=== PATIENT | female | born 1950 | race Caucasian/White ===

== ENCOUNTER 2024-07-17 09:46 | Day surgery (SDC) | payer MEDICARE, OTHER, SELFPAY ==
--- NOTE | 2024-07-15 15:57 | PAT.ANESEVAL ---
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 When Was Last Pacemaker Check QUESTION #4 FULL TEXT: You/Your Family Experience fever (hyperthermia) with Anesthesia Last Oral Intake Last Oral intake: Last Oral Intake NPO since Meds taken in AM with sips of water? Meds patient instructed to take am of surgery PONV PONV - plant etiologist: PONV - plant etiologist Female Yes 07/15/24 13:26 HX of Motion Sickness No 07/15/24 13:26 HX of N/V After Surgery No 07/15/24 13:26 Non-Smoker Yes 07/15/24 13:26 Duration of Surgery greater No 07/15/24 13:26 than 60 minutes Number of Risk Factors 2 07/15/24 13:26 PONV Score Moderate Risk 07/15/24 13:26 Height & Weight Height & Weight: Anesthesia: Height & Weight Height 5 ft 07/11/24 09:21 Respiratory Assessment Respiratory Assessment - plant etiologist: Respiratory Tract Infection Hx - plant etiologist Hx Respiratory Tract Infection No 07/15/24 13:26 STOP Sleep Apnea STOP Sleep Apnea - plant etiologist: STOP Sleep Apnea - plant etiologist Hx Hypertension Yes: CONTROLLED ON MED 07/15/24 13:26 Hx Sleep Apnea No 07/15/24 13:26 CPAP BIPAP Do you snore loudly (louder No 07/15/24 13:26 than talking or can be heard Do you often feel tired/ No 07/15/24 13:26 fatigued/ sleepy during daytime? Has anyone observed you stop No 07/15/24 13:26 breathing during sleep? STOP Results Negative 07/15/24 13:26 QUESTION #5 FULL TEXT : Do you snore loudly (louder than talking or can be heard through closed doors)? 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 Specify any problems Hx of Preganancy in last 3 No 07/15/24 13:26 Months Nurse Filling Out Transfusion VCHRISTIN 07/15/24 13:26 & Questions: Date: 07/15/24 07/15/24 13:26 Time: 13:27 07/15/24 13:26 Patient unable to answer at this time (ie. confused, unrespo /Reproduction History /Reproductive History - plant etiologist: /Reproductive Hx- plant etiologist Hx Now Gestational Age (in weeks): EDC: Hx Hx Para Hx Section SAB PFSH Medical History (Updated 07/15/24 @ 15:48 by Migdalia Katz) Blood disorder Wears hearing aid Wears glasses Anxiety Arthritis Easy bruising Excessive bleeding Back pain Dietary restriction Gastric reflux Non-smoker Shortness of breath on exertion Asthma History of CHF (congestive heart failure) History of edema History of echocardiogram Hypertension Cardiology follow-up encounter History of pacemaker History of atrial fibrillation Abnormal ultrasound of breast Lump of right breast Abnormal mammogram Bilateral cataracts Home Medications ?Medication ?Instructions ?Recorded ?Last Taken ?Type acetaminophen 325 mg tablet 325 mg PO ONCE PRN pain 07/11/24 Unknown History (Tylenol) cetirizine 10 mg tablet (Zyrtec) 10 mg PO QDAY PRN allergy symptoms 07/11/24 Unknown History diltiazem HCl 240 mg 240 mg PO BID 07/11/24 Unknown History capsule,extended release 24 hr (Cardizem CD) esomeprazole magnesium 20 mg 20 mg PO QDAY 07/11/24 Unknown History capsule,delayed release (Nexium) fluticasone fur. 100 mcg-umeclid 1 inh inhalation Q24H 07/11/24 Unknown History 62.5 mcg-vilant 25 mcg inhalat.powder (Trelegy Ellipta) furosemide 20 mg tablet (Lasix) 20 mg PO QPM 07/11/24 Unknown History furosemide 40 mg tablet (Lasix) 40 mg PO QAM 07/11/24 Unknown History lactobacillus combination no.4 3 3,000 mmu cells PO QDAY 07/11/24 Unknown History billion cell capsule (Probiotic) levalbuterol tartrate 45 2 inh inhalation Q6H 07/11/24 Unknown History mcg/actuation aerosol inhaler (Xopenex HFA) lisinopril 10 mg tablet 10 mg PO QDAY 07/11/24 Unknown History tramadol 25 mg tablet 25 mg PO Q6H PRN pain 07/11/24 Unknown History warfarin 2 mg tablet 2.5 mg PO MOWEFR 07/11/24 07/11/24 History ipratropium 0.5 mg-albuterol 3 mg 3 ml inhalation PRN 07/15/24 Unknown History (2.5 mg base)/3 mL nebulization soln magnesium gluconate 27.5 mg 27.5 mg PO DAILY 07/15/24 Unknown History magnesium (500 mg) tablet pravastatin 40 mg tablet 40 mg PO QHS 07/15/24 Unknown History warfarin 2.5 mg tablet 1.25 mg PO SUTUTHSA 07/15/24 07/11/24 History Allergy/AdvReac Type Severity Reaction Status Date / Time levofloxacin (From Levaquin) Allergy Hives Verified 07/15/24 13:05 Iodinated Contrast Media AdvReac Severe Other Verified 07/15/24 13:05 (contrast dye - iodinated) cephalexin (From Keflex) AdvReac Hives Verified 07/15/24 13:05 Sulfa (Sulfonamide AdvReac Hives Verified 07/15/24 13:05 Antibiotics) sulfamethoxazole (From AdvReac Hives Verified 07/15/24 13:05 Bactrim) trimethoprim (From Bactrim) AdvReac Hives Verified 07/15/24 13:05 Family History Mother Breast cancer, Onset Age: 57 Sister Breast cancer Surgical History (Updated 07/15/24 @ 15:48 by Migdalia Katz) History of carotid endarterectomy H/O right breast biopsy H/O: hysterectomy Hx of cholecystectomy History of open heart surgery Social History Smoking Status: Never smoker alcohol intake: never substance use type: does not use Audit: Pertinent Findings Pertinent Findings EKG Perinent findings: 11/14/2023 ventricular paced rhythm 57 bpm. Consult pertinent findings: Cardiology 06/11/[address] [facility]. Coronary artery disease. Preserved ejection fraction. Hypertension. Stable. Permanent atrial fibrillation. Presence of cardiac pacemaker. All stable. Recommendation Anesthesia Recommendation Anesthesia recommendation: OPTIMIZED for anesthesia
[2024-07-17] VITALS (8 sets, daily range): BP systolic 116–133; BP diastolic 48–80; PULSE 60–65; RESP 16–18; TEMP 36.2–37.3; O2SAT 92–100; BMI 37.8
[2024-07-17] MEDS: 0.9% Normal Saline (1000mL) 1,000 ML 15 ML IV (10:42)
--- NOTE | 2024-07-17 10:48 | PCM.PRE.AN2 ---
ASA Classification* ASA Classification ASA Classification: 3 Assessment & Plan Anesthesia* Anesthesia Assessment Anesthesia Assessment: Discussed sedation and/or anesthesia options, risks, benefits, and alternatives with patient/parents/legal guardian/POA. Questions invited. The patient/parents/legal guardian/POA seems to understand and agrees to proceed with anesthesia plan. Reviewed the physical assessment, medical history, allergy history and patient home medications list prior to surgery/procedure/anesthetic and documented any changes. Performed airway and anesthesia risk assessments. 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 When Was Last Pacemaker Check QUESTION #4 FULL TEXT: You/Your Family Experience fever (hyperthermia) with Anesthesia Last Oral Intake Last Oral intake: Last Oral Intake NPO since 08:00 07/17/24 10:26 Meds taken in AM with sips of Yes 07/17/24 10:26 water? 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 Female Yes 07/15/24 13:26 HX of Motion Sickness No 07/15/24 13:26 HX of N/V After Surgery No 07/15/24 13:26 Non-Smoker Yes 07/15/24 13:26 Duration of Surgery greater No 07/15/24 13:26 than 60 minutes Number of Risk Factors 2 07/15/24 13:26 PONV Score Moderate Risk 07/15/24 13:26 Height & Weight Height & Weight: Anesthesia: Height & Weight Height 5 ft 07/17/24 10:26 Weight: 88 kg 07/17/24 10:26 Body Mass Index (BMI) 37.8 07/17/24 10:26 Respiratory Assessment Respiratory Assessment - lollypop machine operator: Respiratory Tract Infection Hx - lollypop machine operator Hx Respiratory Tract Infection No 07/15/24 13:26 STOP Sleep Apnea STOP Sleep Apnea - lollypop machine operator: STOP Sleep Apnea - lollypop machine operator Hx Hypertension Yes: CONTROLLED ON MED 07/15/24 13:26 Hx Sleep Apnea No 07/15/24 13:26 CPAP BIPAP Do you snore loudly (louder No 07/15/24 13:26 than talking or can be heard Do you often feel tired/ No 07/15/24 13:26 fatigued/ sleepy during daytime? Has anyone observed you stop No 07/15/24 13:26 breathing during sleep? STOP Results Negative 07/15/24 13:26 QUESTION #5 FULL TEXT : Do you snore loudly (louder than talking or can be heard through closed doors)? 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 Specify any problems Hx of Preganancy in last 3 No 07/15/24 13:26 Months Nurse Filling Out Transfusion VCHRISTIN 07/15/24 13:26 & Questions: Date: 07/15/24 07/15/24 13:26 Time: 13:27 07/15/24 13:26 Patient unable to answer at this time (ie. 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: /Reproductive Hx- lollypop machine operator Hx Now Gestational Age (in weeks): EDC: Hx Hx Para Hx Section SAB Active Medications Active Medications: Current Medications Generic Name Dose Route Start Last Admin Trade Name Freq PRN Reason Stop Dose Admin Sodium Chloride 1,000 mls @ 15 mls/hr 07/17/24 10:10 07/17/24 10:42 IV 07/22/24 23:29 15 mls/hr .Q48H ADOLFO Administration Protocol [facility] Medical History Blood disorder Wears hearing aid Wears glasses Anxiety Arthritis Easy bruising Excessive bleeding Back pain Dietary restriction Gastric reflux Non-smoker Shortness of breath on exertion Asthma History of CHF (congestive heart failure) History of edema History of echocardiogram Hypertension Cardiology follow-up encounter History of pacemaker History of atrial fibrillation Abnormal ultrasound of breast Lump of right breast Abnormal mammogram Bilateral cataracts Home Medications ?Medication ?Instructions ?Recorded ?Last Taken ?Type acetaminophen 325 mg tablet 325 mg PO ONCE PRN pain 07/11/24 Unknown History (Tylenol) cetirizine 10 mg tablet (Zyrtec) 10 mg PO QDAY PRN allergy symptoms 07/11/24 Unknown History diltiazem HCl 240 mg 240 mg PO BID 07/11/24 07/17/24 08:00 History capsule,extended release 24 hr (Cardizem CD) esomeprazole magnesium 20 mg 20 mg PO QDAY 07/11/24 07/17/24 08:00 History capsule,delayed release (Nexium) fluticasone fur. 100 mcg-umeclid 1 inh inhalation Q24H 07/11/24 Unknown History 62.5 mcg-vilant 25 mcg inhalat.powder (Trelegy Ellipta) furosemide 20 mg tablet (Lasix) 20 mg PO QPM 07/11/24 Unknown History furosemide 40 mg tablet (Lasix) 40 mg PO QAM 07/11/24 Unknown History lactobacillus combination no.4 3 3,000 mmu cells PO QDAY 07/11/24 Unknown History billion cell capsule (Probiotic) levalbuterol tartrate 45 2 inh inhalation Q6H 07/11/24 Unknown History mcg/actuation aerosol inhaler (Xopenex HFA) lisinopril 10 mg tablet 10 mg PO QDAY 07/11/24 Unknown History tramadol 25 mg tablet 25 mg PO Q6H PRN pain 07/11/24 Unknown History warfarin 2 mg tablet 2.5 mg PO MOWEFR 07/11/24 07/11/24 History ipratropium 0.5 mg-albuterol 3 mg 3 ml inhalation PRN 07/15/24 Unknown History (2.5 mg base)/3 mL nebulization soln magnesium gluconate 27.5 mg 27.5 mg PO DAILY 07/15/24 07/16/24 History magnesium (500 mg) tablet pravastatin 40 mg tablet 40 mg PO QHS 07/15/24 Unknown History warfarin 2.5 mg tablet 1.25 mg PO SUTUTHSA 07/15/24 07/11/24 History Allergy/AdvReac Type Severity Reaction Status Date / Time levofloxacin (From Levaquin) Allergy Hives Verified 07/17/24 10:21 Iodinated Contrast Media AdvReac Severe Other Verified 07/17/24 10:21 (contrast dye - iodinated) cephalexin (From Keflex) AdvReac Hives Verified 07/17/24 10:21 Sulfa (Sulfonamide AdvReac Hives Verified 07/17/24 10:21 Antibiotics) sulfamethoxazole (From AdvReac Hives Verified 07/17/24 10:21 Bactrim) trimethoprim (From Bactrim) AdvReac Hives Verified 07/17/24 10:21 Family History Mother Breast cancer, Onset Age: 57 Sister Breast cancer Surgical History History of carotid endarterectomy H/O right breast biopsy H/O: hysterectomy Hx of cholecystectomy History of open heart surgery Social History Smoking Status: Never smoker alcohol intake: never substance use type: does not use Review of Systems (Anesthesia) ROS Narrative System reviewed and no additional complaints, except as documented.
--- NOTE | 2024-07-17 11:04 | PCM.HP.STD ---
HPI - General General Date of Admission: 07/17/24 Date of Service: 07/17/24 Chief Complaint: Right breast lump HPI Narrative NHI ZHANG, is a 74 F who presents for excisional biopsy/lumpectomy involving the right breast. She was recently seen in the office following ultrasound to workup a small palpable abnormality at the site of previous biopsy location. She presents today for excisional biopsy/lumpectomy [facility] Medical History Blood disorder Wears hearing aid Wears glasses Anxiety Arthritis Easy bruising Excessive bleeding Back pain Dietary restriction Gastric reflux Non-smoker Shortness of breath on exertion Asthma History of CHF (congestive heart failure) History of edema History of echocardiogram Hypertension Cardiology follow-up encounter History of pacemaker History of atrial fibrillation Abnormal ultrasound of breast Lump of right breast Abnormal mammogram Bilateral cataracts Home Medications ?Medication ?Instructions ?Recorded ?Last Taken ?Type acetaminophen 325 mg tablet 325 mg PO ONCE PRN pain 07/11/24 Unknown History (Tylenol) cetirizine 10 mg tablet (Zyrtec) 10 mg PO QDAY PRN allergy symptoms 07/11/24 Unknown History diltiazem HCl 240 mg 240 mg PO BID 07/11/24 07/17/24 08:00 History capsule,extended release 24 hr (Cardizem CD) esomeprazole magnesium 20 mg 20 mg PO QDAY 07/11/24 07/17/24 08:00 History capsule,delayed release (Nexium) fluticasone fur. 100 mcg-umeclid 1 inh inhalation Q24H 07/11/24 Unknown History 62.5 mcg-vilant 25 mcg inhalat.powder (Trelegy Ellipta) furosemide 20 mg tablet (Lasix) 20 mg PO QPM 07/11/24 Unknown History furosemide 40 mg tablet (Lasix) 40 mg PO QAM 07/11/24 Unknown History lactobacillus combination no.4 3 3,000 mmu cells PO QDAY 07/11/24 Unknown History billion cell capsule (Probiotic) levalbuterol tartrate 45 2 inh inhalation Q6H 07/11/24 Unknown History mcg/actuation aerosol inhaler (Xopenex HFA) lisinopril 10 mg tablet 10 mg PO QDAY 07/11/24 Unknown History tramadol 25 mg tablet 25 mg PO Q6H PRN pain 07/11/24 Unknown History warfarin 2 mg tablet 2.5 mg PO MOWEFR 07/11/24 07/11/24 History ipratropium 0.5 mg-albuterol 3 mg 3 ml inhalation PRN 07/15/24 Unknown History (2.5 mg base)/3 mL nebulization soln magnesium gluconate 27.5 mg 27.5 mg PO DAILY 07/15/24 07/16/24 History magnesium (500 mg) tablet pravastatin 40 mg tablet 40 mg PO QHS 07/15/24 Unknown History warfarin 2.5 mg tablet 1.25 mg PO SUTUTHSA 07/15/24 07/11/24 History Allergy/AdvReac Type Severity Reaction Status Date / Time levofloxacin (From Levaquin) Allergy Hives Verified 07/17/24 10:21 Iodinated Contrast Media AdvReac Severe Other Verified 07/17/24 10:21 (contrast dye - iodinated) cephalexin (From Keflex) AdvReac Hives Verified 07/17/24 10:21 Sulfa (Sulfonamide AdvReac Hives Verified 07/17/24 10:21 Antibiotics) sulfamethoxazole (From AdvReac Hives Verified 07/17/24 10:21 Bactrim) trimethoprim (From Bactrim) AdvReac Hives Verified 07/17/24 10:21 Family History Mother Breast cancer, Onset Age: 57 Sister Breast cancer Surgical History History of carotid endarterectomy H/O right breast biopsy H/O: hysterectomy Hx of cholecystectomy History of open heart surgery Social History Smoking Status: Never smoker alcohol intake: never substance use type: does not use Vital Signs Vital Signs Vital Signs: 07/17/24 10:26 07/17/24 10:26 07/17/24 10:49 Temperature 97.8 F 97.8 F Temperature Source Temporal Pulse Rate 61 61 Respiratory Rate 16 16 Respiratory Pattern Normal Blood Pressure 126/48 H 126/48 H Blood Pressure Mean 74 Blood Pressure Source Monitor Blood Pressure Position Sitting Blood Pressure Location Left Arm Pulse Ox 100 100 Oxygen Delivery Method Room Air Weight Weight: 194 lb 0.108 oz Body Mass Index (BMI) 37.8 Physical Exam Const alert, oriented x3 and no apparent distress Assessment & Plan Assessment/Plan (1) Abnormal ultrasound of breast: PLAN: Plan Right breast excisional biopsy/lumpectomy to be performed today. We reviewed the details of the planned procedure and she wishes to proceed. Surgery will begin shortly Charges/Coding Visit Charges Inpatient E&M: 40361 Init Hosp L1
--- NOTE | 2024-07-17 11:30 | BREAST_PTH ---
PATIENT: NHI ZHANG LOC: [facility] [place] U#:[id number] AGE/SX: 74/F ROOM: RE07/17/[address]: Dr. Nawaf Mccarthy MD : 1950 BED: DIS: 07/17/2024 SPEC #: [id number] RECD: 07/18/24 11:13 STATUS: NIKI RECherry #: [id number] HOPE: 07/17/24 11:[address]: Nawaf Mccarthy DEPT: SURGICAL PATHOLOGY RECD BY: Jefferson Root ENTERED: 07/18/24 11:13 SP TYPE: BREAST OTHR DR: Dr. Ronit Doan DO Tissues: Right breast, NOS Procedures: Immunohistochemical Stains Surgery Specimen Level IV IHC Stain ADDITIONAL HEADER OPERATION: Breast lumpectomy PRE-OP DIAGNOSIS: Abnormal ultrasound of breast TISSUE SUBMITTED: A- Right breast lumpectomy *long stitch- lateral, short stitch- superior* Ischemic Time: 1 minute Fixation Time: 48 hours MICROSCOPIC DIAGNOSIS RIGHT BREAST, LUMPECTOMY: * Negative for malignancy. * Multifocal fat necrosis - see note. * Focal columnar cell change/hyperplasia. * Unremarkable skin. Note: IHC for Pancytokeratin and CD68 support the diagnosis of fat necrosis. MICROSCOPIC DESCRIPTION Slides are reviewed. These tests were developed and their performance characteristics determined by [facility]. They may not have been cleared or approved by the U.S. Food and Drug Administration. The FDA has determined that such clearance or approval is not necessary. The above immunohistochemical/dualISH markers are ordered and reviewed by the Pathologist. GROSS DESCRIPTION Received in fixative is one container labeled with the patient's name and designated right breast lumpectomy, long stitch-lateral, short stitch-superior. Cold ischemia time is not indicated on the requisition or on the container. The specimen consists of a roughly round-shaped lump of yellow-white fibrofatty breast tissue with skin on one surface. It has 2 sets of sutures on it designated as above. The skin is present on the anterior surface. The specimen measures 5.3 x 5 x 2.5 cm, and the skin ellipse measures 3.5 x 1 cm. The skin is unremarkable. The specimen is inked as follows: Superior is blue, inferior is green, posterior is black, anterior is kaushal, medial is yellow, and lateral is orange. The specimen is sectioned into 13 slices, from lateral to medial at approximately 3 mm intervals. The lateral-most slice is #1 and the medial-most slice is #13. Slices #2 has a punctate firm area at the posterior ink, along with cysts. Slice #3 has a punctate firm area in the center of it. Punctate firm areas are also found on slices 6,7 and 8, at the posterior ink. No distinct masses are identified. Multiple mortician supplies sales representative sections are submitted in 10 cassettes. 10 07/19/24 Cassette summary: A1- lateral perpendicular margin A2,A3- slice #2 A4,A5- slice #3 A6- inferior half of slice #6 A7- inferior half of slice #7 A8- superior half of slice #8 A9- medial perpendicular margin A10- superior half of slice #4 CPT: 25138, 44036, 19628
[2024-07-17] MEDS: Clindamycin 900 MG/50 ML BAG 75 MG IV (11:33)
[2024-07-17] MEDS: Bupiv/Epi 0.25% 30 ML Vial (12:12)
--- NOTE | 2024-07-17 12:15 | DCINST_ITS ---
Discharge Instructions Diet Discharge Diet: Light diet - advance as tolerated Activity Discharge Activity: Return to Normal Activity and May Shower May shower in (days): 1 Ice area for (Minutes): 30 Lifting Restrictions: none Dressing / Incision Call your doctor if your incision/area has: Continuous Slow Oozing, Sudden Increased Bleeding, Increased Pain/ Swelling, Increased Redness, Foul Smelling Discharge and Swelling at the incision site Call your doctor if you observe: Fever of 101 or Higher Cleanse incision/area with: Soap & Water Additional Dressing/Incision Instructions:: remove dressing prior to showering; wear TOMMY wrap or sports bra for support / compression Follow Up Care Please Follow Up With: Nawaf Mccarthy MD When: 1-2 weeks -- call for appointment Test Results: Test results from this visit will be discussed in further detail at your follow- up appointment, if applicable. Discharge Plan Admission Primary Reason for Your Visit: right breast mass Attending Provider: Nawaf Mccarthy Primary Care Provider: Ronit Doan Instructions Print Language: [place] Discharge Orders/Prescriptions Prescriptions: New hydrocodone-acetaminophen 5-325 mg tablet 1 tab PO Q8H PRN (Reason: pain) 4 Days Qty: 10 0RF Continued Trelegy Ellipta 100-62.5-25 mcg blister with device 1 inh inhalation Q24H lisinopril 10 mg tablet 10 mg PO QDAY levalbuterol tartrate [Xopenex HFA] 45 mcg/actuation HFA aerosol inhaler 2 inh inhalation Q6H furosemide [Lasix] 40 mg tablet 40 mg PO QAM furosemide [Lasix] 20 mg tablet 20 mg PO QPM diltiazem HCl [Cardizem CD] 240 mg capsule,extended release 24hr 240 mg PO BID tramadol 25 mg tablet 25 mg PO Q6H PRN (Reason: pain) warfarin 2 mg tablet 2.5 mg PO MOWEFR esomeprazole magnesium [Nexium] 20 mg capsule,delayed release(DR/EC) 20 mg PO QDAY Probiotic 3 billion cell capsule 3,000 mmu cells PO QDAY Rx Instructions: administer with a meal cetirizine [Zyrtec] 10 mg tablet 10 mg PO QDAY PRN (Reason: allergy symptoms) acetaminophen [Tylenol] 325 mg tablet 325 mg PO ONCE PRN (Reason: pain) ipratropium-albuterol 0.5 mg-3 mg(2.5 mg base)/3 mL solution for nebulization 3 ml inhalation PRN pravastatin 40 mg tablet 40 mg PO QHS warfarin 2.5 mg tablet 1.25 mg PO SUTUTHSA magnesium gluconate 27.5 mg magne- sium (500 mg) tablet 27.5 mg PO DAILY Referrals / Follow Up: Rnoit Doan DO [Primary Care Provider] - Disposition Disposition (needs filled in before D/C Order can be placed): Home, Self Care
--- NOTE | 2024-07-17 12:31 | PCM.OPRPT ---
Multi Select Codes Integumentary Integumentary CPT Codes: 43030 Bx breast [place] [address] Partial mastectomy Operative Report (Standard) Operative Information Date of Procedure: 07/17/24 Pre-Operative Diagnosis: Right breast mass/abnormal ultrasound Post-Operative Diagnosis: Same Surgery/Procedure Performed: Right breast lumpectomy/excisional biopsy factory lay out engineer: Yes Commercial Agent: Karina Middleton Tasks completed by nurse first assist: Closing and Retracting Additional assistant signal maintainer?: No Type of Anesthesia: General and Local RN Documented Start/Stop Times: Operation Date: 07/17/24 11:30 Case Time Into Pre-Op 07/17/24 10:06 Out of Pre-Op 07/17/24 11:30 Anesthesia Start 07/17/24 11:33 Into Room 07/17/24 11:33 Procedure Start 07/17/24 11:50 Procedure Start Time: 11:50 Procedure Stop Time: 12:20 Select all DRAINS/GRAFTS/IMPLANTS that apply: None Special Medications: Clindamycin 900 mg IV. Estimated Blood Loss: 5 mL Specimen collected: Yes Description of specimen(s) removed: Right breast lumpectomy tissue Description of surgery: The patient is a 74-year-old female who was seen in the office recently with complaints of a right breast lump as well as an ultrasound that was read as abnormal. Biopsy was recommended. Patient was quick to state that she would require sedation/anesthesia should any type of biopsy need to be performed. She has had multiple previous excisional biopsies in the past all of which have been benign per her description. She had an ultrasound that showed a less than 1 cm abnormality that corresponded to the palpable lesion in question. There was another less than 1 cm abnormality seen on ultrasound just adjacent to the original palpable lesion. This was in the same area as a previous excisional biopsy. We discussed option of ultrasound-guided core biopsy in the office under Ativan however she stated that she need to be asleep for the procedure and so we recommended an excisional biopsy to be performed in the operating room. She agreed to proceed. Patient was brought to the operating room today following informed consent. Preoperative antibiotics were given and a timeout was performed. The site was marked preoperatively. Once in the operating room a general anesthesia was induced. Once adequately sedated the arms were comfortably outstretched on arm boards. Before prepping the skin, ultrasound was used to again reidentify the ultrasound abnormalities and again this corresponded to the palpable lesion in question. The site was marked with a skin marker. The right breast and chest were then prepped and draped in the usual sterile manner. Local anesthetic was infiltrated. An ellipse incision was made. Bovie electrocautery was then used dissect down through subcutaneous tissues. Once the tissue was free, the specimen was oriented such that a long marking stitch was used to indicate the lateral aspect of the specimen and a short stitch was used to denote the superior aspect of the specimen. This was sent to pathology for permanent section. Hemostasis was excellent. The wound was copiously irrigated. The wound was then closed in layers first using 3-0 Vicryl. Then 4-0 Vicryl was run in the skin. Skin glue was then applied. 4 x 4 fluffs and an Brandyn wrap were then applied for compression. She was awakened from anesthesia and taken to recovery in good condition. A OPTOMETRIST PRESIDENT/PRACTICE OWNER was utilized as a certified teacher assistant. Her role included skin retraction and assistance with skin closure. Surgical Findings: See operative description Complications Complications: No Admit VTE Documentation VTE Present on Admission: No VTE Mechan Device Prophylaxis: SCD's VTE Pharm Prophylaxis ordered?: No Reason prophylaxis not ordered: Treatment Not Indicated
--- NOTE | 2024-07-17 12:34 | PCM.POST.ANE ---
Anesthesia: Postop Eval I Current Vital Signs Temperature: 99.2 F Pulse Rate: 65 Blood Pressure: 124/50 Respiratory Rate: 16 Pulse Ox: 93 Oxygen Delivery Method: Nasal Cannula Oxygen Flow Rate (L/min): 2 Assessment Airway patent: Yes Spontaneous unlabored respirations: Yes Mental status: Awake and Calm nausea: No Vomiting: No Anesthesia Complication: No Fluid Hydration Crystalloid volume administer (ml): 700 Total IV fluid infused: 700 Progress Note Anesthesia document: Postop Eval 1 completed: Yes
--- NOTE | 2024-07-17 12:56 | POSTOPAN2_ITS ---
Anesthesia Postop Eval I Sum Postop Eval Completion status Anesthesia document: Postop Eval 1 completed: Yes Anesthesia Postop Eval I Summary Anesthesia Postop Eval I Summary: Anesthesia Postop Eval I: Assessment Summary Airway patent Yes 07/17/24 12:[email or web address] Spontaneous unlabored Yes 07/17/24 12:[email or web address] respirations Mental status Awake,Calm 07/17/24 12:[email or web address] nausea No 07/17/24 12:[email or web address] Vomiting No 07/17/24 12:[email or web address] Anesthesia Postop Eval I: Fluid Summary Crystalloid volume administer 700 07/17/24 12:[email or web address] (ml) Colloids volume administered ( ml) Blood Product volume administered (ml) Total IV fluid infused 700 07/17/24 12:[email or web address] Anesthesia Postop Eval I: Summary Notes Anesthesia Complication No 07/17/24 12:[email or web address] Anesthesia Complication Comment: Post-operative progress note Anesthesia: Postop Eval II Evaluation Mental status: Awake Pain Level: 0 nausea: No Vomiting: No
--- NOTE | 2024-07-17 12:56 | PCM.POSTANE2 ---
Anesthesia Postop Eval I Sum Postop Eval Completion status Anesthesia document: Postop Eval 1 completed: Yes Anesthesia Postop Eval I Summary Anesthesia Postop Eval I Summary: Anesthesia Postop Eval I: Assessment Summary Airway patent Yes 07/17/24 12:35 [email or web address] Spontaneous unlabored Yes 07/17/24 12:35 [email or web address] [email or web address] respirations Mental status Awake,Calm 07/17/24 12:35 [email or web address] [email or web address] nausea No 07/17/24 12:35 HOSE [email or web address] Vomiting No 07/17/24 12:35 [email or web address] [email or web address] Anesthesia Postop Eval I: Fluid Summary Crystalloid volume administer 700 07/17/24 12:35 HOSE [email or web address] (ml) Colloids volume administered ( ml) Blood Product volume administered (ml) Total IV fluid infused 700 07/17/24 12:35 HOSE [email or web address] Anesthesia Postop Eval I: Summary Notes Anesthesia Complication No 07/17/24 12:35 HOSE [email or web address] Anesthesia Complication Comment: Post-operative progress note Anesthesia: Postop Eval II Evaluation Mental status: Awake Pain Level: 0 nausea: No Vomiting: No
[2024-07-19 06:25] LABS: INR Fingerstick 1.2; Prothrombin Time Fingerstick 14.3 SEC (11.7-14.9)
== END 2024-07-17 14:09 | disposition home or self-care (01) ==
LOC: SDC 09:49 → AC 09:50
PROVIDERS: PCP Internal Medicine; Referring Provider Surgery; Visit Provider Surgery
PROC: (CPT 19301; principal; 2024-07-17 11:15)
DX: N64.1 Fat necrosis of breast (principal); I11.0 Hypertensive heart disease with heart failure; I50.9 Heart failure, unspecified; N62 Hypertrophy of breast; J45.909 Unspecified asthma, uncomplicated; K21.9 Gastro-esophageal reflux disease without esophagitis; Z79.51 Long term (current) use of inhaled steroids; Z79.84 Long term (current) use of oral hypoglycemic drugs; Z79.01 Long term (current) use of anticoagulants; Z79.899 Other long term (current) drug therapy; Z95.0 Presence of cardiac pacemaker
CPT/HCPCS: 19301; 00404; 36416; 85610; 88305; 88341; 88342; A4648; J2405

== ENCOUNTER 2025-03-13 06:37 | Inpatient (IN) | payer MEDICARE, OTHER, SELFPAY ==
[2025-03-13] VITALS (13 sets, daily range): BP systolic 120–156; BP diastolic 41–58; PULSE 60–92; RESP 14–23; TEMP 36.5–36.6; O2SAT 94–98; BMI 38.1; BMI 36.7
[2025-03-13 07:09] LABS: Hematocrit 39.2 % (37-47); Hemoglobin 12.7 g/dL (12.0-15.0); Immature Granulocytes Count 0.160 X10^3/uL (0.0-0.0); Mean Corp Hgb Conc 32.4 g/dL (32-36); Mean Corpuscular Volume 80.3 fL (81-99); Mean Platelet Vol. 8.8 fl (6.2-12.0); NRBC Flagged by Analyzer 0 % (0-5); POSITIVE DIFFERENTIAL YES; POSITIVE MORPHOLOGY YES; Platelet Count 370 K/mm3 (150-450); RBC Distribution Width CV 16.3 % (11.6-14.6); RBC Distribution Width SD 47.1 fl (35.1-43.9); Red Blood Count 4.88 M/mm3 (4.2-5.4); White Blood Count 18.9 K/mm3 (4.4-11.0)
--- NOTE | 2025-03-13 07:15 | EX.ED.DYSGE1 ---
HPI History of Present Illness Chief Complaint: Shortness of Breath Narrative Narrative: Patient is a 74-year-old female with past medical history of asthma, atrial fibrillation on warfarin, CHF, hypertension, pacemaker who presents to the emergency department chief complaint of shortness of breath and difficulty breathing. Patient notes that she went to urgent care on Monday and was diagnosed with bronchitis and started on prednisone and she states that she has been taking them as prescribed. States that she was up all night that she was having significant difficulty breathing therefore she came here to be further evaluated. Patient states that normally when she gets diagnosed with bronchitis she gets an antibiotic and states that she was told that this is viral and she did not need this and notes that now something else is going on and believes that she may need an antibiotic [facility] Medical History Blood disorder Wears hearing aid Wears glasses Anxiety Arthritis Easy bruising Excessive bleeding Back pain Dietary restriction Gastric reflux Non-smoker Shortness of breath on exertion Asthma History of CHF (congestive heart failure) History of edema History of echocardiogram Hypertension Cardiology follow-up encounter History of pacemaker History of atrial fibrillation Abnormal ultrasound of breast Lump of right breast Abnormal mammogram Bilateral cataracts Home Medications Medication Instructions Recorded Last Taken Type acetaminophen 325 mg tablet 325 mg PO ONCE PRN pain 07/11/24 Unknown History (Tylenol) cetirizine 10 mg tablet (Zyrtec) 10 mg PO QDAY PRN allergy symptoms 07/11/24 Unknown History diltiazem HCl 240 mg 240 mg PO BID 07/11/24 07/17/24 08:00 History capsule,extended release 24 hr (Cardizem CD) esomeprazole magnesium 20 mg 20 mg PO QDAY 07/11/24 07/17/24 08:00 History capsule,delayed release (Nexium) fluticasone fur. 100 mcg-umeclid 1 inh inhalation Q24H 07/11/24 Unknown History 62.5 mcg-vilant 25 mcg inhalat.powder (Trelegy Ellipta) furosemide 20 mg tablet (Lasix) 20 mg PO QPM 07/11/24 Unknown History furosemide 40 mg tablet (Lasix) 40 mg PO QAM 07/11/24 Unknown History lactobacillus combination no.4 3 3,000 mmu cells PO QDAY 07/11/24 Unknown History billion cell capsule (Probiotic) levalbuterol tartrate 45 2 inh inhalation Q6H 07/11/24 Unknown History mcg/actuation aerosol inhaler (Xopenex HFA) lisinopril 10 mg tablet 10 mg PO QDAY 07/11/24 Unknown History tramadol 25 mg tablet 25 mg PO Q6H PRN pain 07/11/24 Unknown History warfarin 2 mg tablet 2.5 mg PO MOWEFR mowefrsasu 07/11/24 07/11/24 History ipratropium 0.5 mg-albuterol 3 mg 3 ml inhalation PRN 07/15/24 Unknown History (2.5 mg base)/3 mL nebulization soln magnesium gluconate 27.5 mg 27.5 mg PO DAILY 07/15/24 07/16/24 History magnesium (500 mg) tablet pravastatin 40 mg tablet 40 mg PO QHS 07/15/24 Unknown History warfarin 2.5 mg tablet 1.25 mg PO TUTH 07/15/24 07/11/24 History metformin 500 mg tablet,extended 500 mg PO BID 07/24/24 Unknown History release 24 hr prednisone 20 mg tablet 40 mg PO DAILY 03/13/25 Unknown History Allergy/AdvReac Type Severity Reaction Status Date / Time cephalexin (From Keflex) Allergy Hives Verified 03/13/25 06:45 levofloxacin (From Levaquin) Allergy Hives Verified 03/13/25 06:45 Sulfa (Sulfonamide Allergy Hives Verified 03/13/25 06:45 Antibiotics) sulfamethoxazole (From Allergy Hives Verified 03/13/25 06:45 Bactrim) trimethoprim (From Bactrim) Allergy Hives Verified 03/13/25 06:45 Iodinated Contrast Media AdvReac Severe Other Verified 03/13/25 06:45 (contrast dye - iodinated) Family History Mother Breast cancer, Onset Age: 57 Sister Breast cancer Surgical History Status post right breast lumpectomy History of carotid endarterectomy H/O right breast biopsy H/O: hysterectomy Hx of cholecystectomy History of open heart surgery Social History Smoking Status: Never smoker alcohol intake: never substance use type: does not use ROS ROS ED ROS Narrative Constitutional: Denies any fevers, chills, headache Cardiovascular: Denies chest pain Respiratory: Mild shortness of breath as noted above denies any sputum production Abdomen: Denies nausea vomit diarrhea : Denies urinary symptoms Neurological: Denies any numbness, weakness, tingling Musculoskeletal: Denies back pain Skin: Denies any rashes or lesions EXAM Physical Exam Narrative Exam Narrative: General: Patient was lying in bed resting comfortably did not appear to be in acute distress Head: Atraumatic, normocephalic Eyes: PERRL bilaterally, EOMI bilaterally, no conjunctival injection noted Neck: Soft, supple, trachea midline Cardiovascular: Regular rate and rhythm Respiratory: Diffuse end expiratory wheezing noted bilaterally Abdomen: Soft, nondistended, nontender to palpation Extremities: No pedal edema on exam, +5/5 strength noted in the bilateral lower extremities Neurological: Patient following commands knew that she was at [facility] the year is 2024 Skin: Warm, dry, intact no rashes or lesions noted Const Vital Signs: 03/13/25 06:38 03/13/25 07:23 03/13/25 07:53 Temperature 97.7 F L Temperature Source Oral Pulse Rate 83 80 65 Respiratory Rate 16 19 H 23 H Respiratory Pattern Normal Blood Pressure 156/58 H 132/46 H Blood Pressure Mean 90 74 Pulse Ox 97 98 Oxygen Delivery Method Room Air Room Air 03/13/25 08:53 Temperature Temperature Source Pulse Rate 62 Respiratory Rate 20 H Respiratory Pattern Blood Pressure 120/41 L Blood Pressure Mean 67 Pulse Ox 96 Oxygen Delivery Method Room Air MDM MDM MDM Narrative Medical decision making narrative: Patient is a 74-year-old female who presented to the emergency department the chief complaint of cough, wheezing and shortness of breath. On the differential diagnose includes but not limited to upper respiratory infection secondary viral etiology, pneumonia, pneumothorax, CHF although she states that she weighed herself this morning and is at her baseline weight and is not having significant dyspnea on exertion. Patient given 3 DuoNebs and Solu-Medrol. Patient's CBC was significant for leukocytosis of 18,000, hemoglobin 12.7, plate count of 370. Patient INR was 2.3 in therapeutic range, sodium was 132, potassium 4.2, creatinine was noted be 1.02. Patient proBNP normal at 77. Patient EKG showed ventricular paced rhythm with PVCs noted with a rate of 64 bpm. Patient chest x-ray reviewed by myself and by radiology showed no acute cardiopulmonary processes. On reevaluation patient she is still having significant end expiratory wheezing therefore 2 more albuterol treatments will be ordered and she will be reevaluated. On reevaluation of the patient at 9:40 AM she has significant end expiratory wheezing noted bilaterally therefore at this point time do believe she warrants admission to the hospital for asthma exacerbation will discuss case with hospitalist. Patient will also be given IV antibiotics although I believe her white count is reactive secondary to the steroids that she has been on in the outpatient setting Did discuss case with hospitalist Dr. Pradhan who accept patient for admission. Patient notified is agreeable this plan all question concerns answered she was ordered Azactam at 9:50 AM Lab Data Labs: Laboratory Results - last 24 hr 03/13/25 06:55 WBC 18.9 H RBC 4.88 Hgb 12.7 Hct 39.2 MCV 80.3 L MCH 26.0 L MCHC 32.4 RDW Std Deviation 47.1 H RDW Coeff of Juliane 16.3 H Plt Count 370 MPV 8.8 Immature Gran % (Auto) 0.800 Neut % (Auto) 78.5 H Lymph % (Auto) 10.6 L [place] % (Auto) 8.4 Eos % (Auto) 1.4 Baso % (Auto) 0.3 Absolute Neuts (auto) 14.8 H Absolute Lymphs (auto) 2.01 Nucleated RBC % 0 Differential Comment COMMENT PT 25.8 H INR 2.3 APTT 29.9 Sodium 132 L Potassium 4.2 Chloride 95 L Carbon Dioxide 20.8 L Anion Gap 16 H BUN 18 Creatinine 1.02 Estim Creat Clear Calc 47.93 L Est GFR (MDRD) Non-Af 58 L BUN/Creatinine Ratio 17.3 Glucose 151 H Calcium 9.5 NT pro BNP II 787 Radiography Diagnostic Testing: Clinical Impression(s) from Imaging Studies Chest X-Ray 03/13/25 07:35 IMPRESSION: Moderate degenerative changes of the thoracic spine are noted. Right thoracic transvenous pacemaker with atrial and ventricular leads in place. Prior sternotomy seen. The cardiomediastinal silhouette is within the normal range. Chronic lung changes are seen, but no acute pneumonic process is clearly appreciated. Sensitivity is reduced by lack of prior comparison study, however. No pleural effusion or pneumothorax is seen. Reading Location: [place] [id number] Discharge Plan Dx/Rx/DC Orders Clinical Impression: Asthma exacerbation, History of CHF (congestive heart failure), History of atrial fibrillation Disposition Disposition: Acute Care Hospital [facility]
--- OUTSIDE RECORDS SUMMARY | 2025-03-13 07:25 | XMS RPT_ITS | CCD ---
Author Organization [facility] Care Team Providers Care Accounts Receivable Clerk Name Role Phone Donnell, Ayde E Unavailable Unavailable Mariana, Aj Unavailable Unavailable Gliner, Ori Unavailable Unavailable Donnell, Ayde E Unavailable Unavailable Mariana, Aj Unavailable Unavailable Ramicone, Timothy Unavailable Unavailable Gliner, Ori Unavailable Unavailable Koletsky, Collin Unavailable Unavailable Ramicone, Timothy Unavailable Unavailable Ramicone, Timothy Unavailable Unavailable Koletsky, Collin Unavailable Unavailable Ramicone, Timothy Unavailable Unavailable Paul Muller Unavailable Unavailable Ansari, Shantel Unavailable Unavailable Tyangy, Katharine Unavailable Unavailable Tynesscar, Katharine K Unavailable Unavailable Mandat, Ruma E Unavailable Unavailable Gliner, Ori Unavailable Unavailable Ramicone, Timothy Unavailable Unavailable Ramicone, Timothy Unavailable Unavailable Tyneski, Katharine Unavailable Unavailable ManiLucilae Unavailable Unavailable PATIENT, SELF Referring Unavailable PROVIDER, UNKNOWN Admitting Unavailable PROVIDER, UNKNOWN Attending Unavailable NIKKI, RUMA E. Primary Care Unavailable Ansari, Shantel Unavailable Unavailable Ramicone DO, Timothy Unavailable Unavailable Tyneski SPECIMEN BOSS-SENIOR ENERGY TRADER, Katharine Unavailable Unavai lable John Scalesisten K Unavailable Unavailable Mandat, Ruma E Unavailable Unavailable Gliner, Ori Unavailable Unavailable Tynesscar, Katharine K Unavailable Unavailable Unavailable Ronit Doan Unavailable Ronit Doan Unavailable Jaylon Kiser Unavailable Timothy Palacio Unavailable Dillon Romano Unavailable Unavailable Charline Hagen Unavailable Ronit Doan DO Primary Care Provider [phone] Guanaco Doan DOie Yaz Carmel Luba, Dr. Timothy Perez Attending Unavailabl e Olimpia, Dr. Ronit Ordonez Primary Care Unavailabl e Maribel, Dr. Yg Bales Attending Unavailabl e Maribel, Dr. Yg Bales Referring Unavailabl e Olimpia, Dr. Ronit Ordonez Primary Care Unavailabl e Maribel, Dr. Yg Bales Admitting Unavailabl e Rita, Jaylon Attending Unavailable Olimpia, Dr. Ronit Ordonez Primary Care Unavailabl e Maribel, Dr. Yg Bales Attending Unavailabl e Olimpia, Dr. Ronit Ordonez Primary Care Unavailabl e Rita, Jaylon Attending Unavailable Olimpia, Dr. Ronit Ordonez Primary Care Unavailabl e Luba, Dr. Timothy Perez Attending Unavailabl e Olimpia, Dr. Ronit Ordonez Primary Care Unavailabl e Luba, Dr. Timothy Perez Attending Unavailabl e Olimpia, Dr. Ronit Ordonez Primary Care Unavailabl e Luba, Dr. Timothy Perez Attending Unavailabl e Olimpia, Dr. Ronit Ordonez Primary Care Unavailabl e Luba, Dr. Timothy Perez Attending Unavailabl e Olimpia, Dr. Ronit Ordonez Primary Care Unavailabl e Tod Cabello DO Unavailable MerlynLien Unavailable Olimpia, Dr. Ronit Ordonez Attending Unavailabl e Olimpia, Dr. Ronit Ordonez Referring Unavailabl e Olimpia, Dr. Ronit Ordonez Primary Care Unavailabl e Maribel, Dr. Yg Bales Referring Unavailabl e Maribel, Dr. Yg Bales Attending Unavailabl e Olimpia, Dr. Ronit Ordonez Primary Care Unavailabl e Olimpia, Dr. Ronit Ordonez Primary Care Unavailabl e Rita, Dr. Jaylon Posada Referring Unavaila ble Rita, Dr. Jaylon Posada Attending Unavaila ble Olimpia, Dr. Ronit Ordonez Primary Care Unavailabl e Olimpia, Dr. Ronit Ordonez Attending Unavailabl e Olimpia, Dr. Ronit Ordonez Primary Care Unavailabl e Olimpia, Dr. Ronit Ordonez Attending Unavailabl e Olimpia, Dr. Ronit Ordonez Primary Care Unavailabl e Olimpia, Dr. Ronit Ordonez Attending Unavailabl e Olimpia, Dr. Ronit Ordonez Primary Care Unavailabl e Olimpia, Dr. Ronit Ordonez Attending Unavailabl e Olimpia, Dr. Ronit Ordonez Primary Care Unavailabl e Olimpia, Dr. Ronit Ordonez Attending Unavailabl e Olimpia, Dr. Ronit Ordonez Primary Care Unavailabl e Rita, Dr. Jaylon Posada Referring Unavaila ble Rita, Dr. Jaylon Posada Attending Unavaila ble Olimpia, Dr. Ronit Ordonez Referring Unavailabl e Olimpia, Dr. Ronit Ordonez Primary Care Unavailabl e Rita, Dr. Jaylon Posada Attending Unavaila ble Olimpia, Dr. Ronit Ordonez Attending Unavailabl e Olimpia, Dr. Ronit Ordonez Primary Care Unavailabl e Olimpia, Dr. Ronit Ordonez Attending Unavailabl e Olimpia, Dr. Ronit Ordonez Primary Care Unavailabl e Olimpia, Dr. Ronit Ordonez Attending Unavailabl e Olimpia, Dr. Ronit Ordonez Primary Care Unavailabl e Olimpia, Dr. Ronit Ordonez Primary Care Unavailabl e Ulatopatrick, Charline Referring Unavailable Ulatopatrick, Charline Attending Unavailable Ronyajoni, Dr. Ronit Ordonez Primary Care Unavailabl e Ulatopatrick, Charline Referring Unavailable Ulatopatrick, Charline Attending Unavailable Olimpia, Dr. Ronit Ordonez Attending Unavailabl e Olimpia, Dr. Ronit Ordonez Referring Unavailabl e Olimpia, Dr. Ronit Ordonez Primary Care Unavailabl e Olimpia, Dr. Ronit Ordonez Attending Unavailabl e Olimpia, Dr. Ronit Ordonez Referring Unavailabl e lOimpia, Dr. Ronit Ordonez Primary Care Unavailabl e Olimpia, Dr. Ronit Ordonez Attending Unavailabl e Olimpia, Dr. Ronit Ordonez Referring Unavailabl e Olimpia, Dr. Ronit Ordonez Primary Care Unavailabl e Olimpia, Dr. Ronit Ordonez Primary Care Unavailabl e Olimpia, Dr. Ronit Ordonez Attending Unavailabl e Olimpia, Dr. Ronit Ordonez Primary Care Unavailabl e Olimpia, Dr. Ronit Ordonez Attending Unavailabl e Olimpia, Dr. Ronit Ordonez Attending Unavailabl e Olimpia, Dr. Ronit Ordonez Primary Care Unavailabl e Olimpia, Dr. Ronit Ordonez Attending Unavailabl e Olimpia, Dr. Ronit Ordonez Primary Care Unavailabl e Olimpia, Dr. Ronit Ordonez Attending Unavailabl e Ronyajoni, Dr. Ronit Ordonez Primary Care Unavailabl e Olimpia, Dr. Ronit Ordonez Primary Care Unavailabl e Olimpia, Dr. Ronit Ordonez Attending Unavailabl e RamiconTimothy manning Attending Unavailable Mosesyajoni, Dr. Ronit Ordonez Primary Care Unavailabl e Olimpia, Dr. Ronit Ordonez Attending Unavailabl e Olimpia, Dr. Ronit Ordonez Primary Care Unavailabl e Olimpia, Dr. Ronit Ordonez Attending Unavailabl e Rondileepk, Dr. Ronit Ordonez Primary Care Unavailabl e Rondileepk, Dr. Ronit Ordonez Primary Care Unavailabl e Ronric, Dr. Ronit Ordonez Attending Unavailabl e Olimpia, Dr. Ronit Ordonez Attending Unavailabl e Olimpia, Dr. Ronit Ordonez Primary Care Unavailabl e Olimpia, Dr. Ronit Ordonez Attending Unavailabl e Olimpia, Dr. Ronit Ordonez Primary Care Unavailabl e Olimpia, Dr. Ronit Ordonez Attending Unavailabl e Olimpia, Dr. Ronit Ordonez Primary Care Unavailabl e Olimpia, Dr. Ronit Ordonez Attending Unavailabl e Ronric, Dr. Ronit Ordonez Primary Care Unavailabl e Charline Hagen DO S Unavailable [phone] Timothy Palacio DO Unavailable Unavailable Primary Care Provider Unavailmaximino e KIRA OLVERA Admitting Unavailable RONIT DOAN Primary Care Unavailable WASHINGTON HAIDER Attending Unavailable Shanique Sebastian LPN Unavailable Unavailable Unavailable Primary Care Provider Unavailabl e PHYSICIAN, NONE Primary Care Physician Unavailab le PHYSICIAN, NONE Primary Care Unavailable ZAK LEPE MD Attending Unavailable Ronit Doan DO Primary Care Provider Ronit Doan DO Unavailable Charline Hagen DO S Unavailable [phone] Timothy Palacio DO Unavailable Ronit Dona DO Unavailable Shari KAUR, Dr. Nawaf Mukherjee Attending Provider Dr. Ronit Doan DO Primary Care Provider Olimpia BEACH, Dr. Cottrell Referring Provider Shari KAUR, Dr. Nawaf Mukherjee Referring Provider Shari KAUR, Dr. Nawaf Mukherjee Other Provider [phone] Nawaf Mccarthy Attending Unavailable Shari, Nawaf Mukherjee Referring Unavailable Ronyak, Ronit Primary Care Unavailable Nawaf Mccarthy Consulting Unavailable Shari, Nawaf Mukherjee Attending Unavailable Nawaf Mccarthy Referring Unavailable Ronyak, Ronit Primary Care Unavailable Ronyak, Ronit Referring Unavailable Wanek, Nawaf Mukherjee Attending Unavailable Ronyak, Ronit Primary Care Unavailable Shari, Nawaf Mukherjee Attending Unavailable Ronyak, Ronit Primary Care Unavailable Ronyak, Ronit Referring Unavailable HÉCTOR FAIRCHILD Attending Unavailable RONYAK, RONIT Primary Care Unavailable SIXTO WYATT MD Attending Unavailable RONYAK, RONIT Primary Care Unavailable RONYAK, RONIT Primary Care Unavailable WOLOSZYN SENIOR ENERGY TRADER, FELISHA Attending Unavailabl e RONYAK, RONIT Primary Care Unavailable WOLOSZYN SENIOR ENERGY TRADER, FELISHA Referring Unavailabl e RONYAK, RONIT Primary Care Unavailable RONYAK, RONIT Primary Care Unavailable RONYAK, RONIT Primary Care Unavailable WOLOSZYN SENIOR ENERGY TRADER, FELISHA Attending Unavailabl e WOLOSZYN SENIOR ENERGY TRADER, FELISHA Referring Unavailabl e RONYAK, RONIT A Referring Unavailable RONYAK, RONIT A Primary Care Unavailable RONYAK, RONIT A Referring Unavailable RONYAK, RONIT Mukherjee Primary Care Unavailable RONYAK, RONIT A Primary Care Unavailable TIMOTHY PALACIO Referring Unavailable RONYAK, RONIT A Primary Care Unavailable TIMOTHY PALACIO Attending Unavailable RONYAK, RONIT Mukherjee Primary Care Unavailable CHARLINE HAGEN Attending Unavailable CHARLINE HAGEN Referring Unavailable RONYAK, RONIT Mukherjee Primary Care Unavailable RONYAK, RONIT A Referring Unavailable RONYAK, RONIT A Primary Care Unavailable RONYAK, RONIT A Referring Unavailable RONYAK, RONIT A Primary Care Unavailable TIMOTHY PALACIO Referring Unavailable RONYAK, RONIT Mukherjee Primary Care Unavailable JAYLON KISER Referring Unavailable RONYAK, RONIT Mukherjee Primary Care Unavailable TIMOTHY PALACIO Referring Unavailable RONYAK, RONIT A Primary Care Unavailable TIMOTHY PALACIO Referring Unavailable RONYAK, RONIT A Primary Care Unavailable TIMOTHY PALACIO Referring Unavailable RONYAK, RONIT A Primary Care Unavailable RONYAK, RONIT A Primary Care Unavailable RONYAK, RONIT A Primary Care Unavailable RONYAK, RONIT A Primary Care Unavailable RONYAK, RONIT A Primary Care Unavailable RONYAK, RONIT A Attending Unavailable RONYAK, RONIT A Referring Unavailable RONYAK, RONIT A Primary Care Unavailable RONYAK, RONIT A Referring Unavailable RONYAK, RONIT A Primary Care Unavailable RONYAK, RONIT A Attending Unavailable RONYAK, RONIT A Primary Care Unavailable RONYAK, RONIT A Primary Care Unavailable RONYAK, RONIT A Attending Unavailable RONYAK, RONIT A Primary Care Unavailable RONYAK, RONIT A Primary Care Unavailable RONYAK, RONIT A Attending Unavailable RONYAK, RONIT A Primary Care Unavailable RONYAK, RONIT A Primary Care Unavailable RONYAK, RONIT A Primary Care Unavailable JAYLON KISER Attending Unavailable RONYAK, RONIT A Primary Care Unavailable RONYAK, RONIT A Primary Care Unavailable RONYAK, RONIT A Primary Care Unavailable RONYAK, RONIT A Primary Care Unavailable RONYAK, RONIT A Attending Unavailable RONYAK, RONIT A Primary Care Unavailable RONYAK, RONIT A Primary Care Unavailable RONYAK, RONIT A Referring Unavailable Allergies Allergy Classification Reported Allergen(s) Allergy Type Date of Onset Reaction(s) Facility Cephalosporins (antibiotic) (9 sources) Cephalexin; Translations: [Keflex] Drug Allergy [facility] Work Phone: Contrast Media (9 sources) Contrast media Substance Allergy [facility] Work Phone: Quinolones (antibiotic) (9 sources) levoFLOXacin; Translations: [Levaquin] Drug Allergy [facility] Work Phone: Sulfonamides (antibiotic) (9 sources) Sulfonamides (Antibiotic); Translations: [Sulfa Drugs] Drug Allergy [facility] Work Phone: (1 source) cephalexin Drug Allergy 12-14-19 17 [facility] Repository (7 sources) cephalexin; Translations: [CEPHALEXIN] Drug Allergy 06-05-19 10 [facility] Repository (1 source) Cephalosporins (Antibiotic) Drug allergy (disorder) 12-14-19 17 [facility] Repository (8 sources) levoFLOXacin; Translations: [LEVOFLOXACIN] Drug Allergy 05-29-19 07 [facility] Repository (7 sources) Sulfonamides (Antibiotic); Translations: [SULFA (SULFONAMIDE ANTIBIOTICS)] Drug allergy (disorder) 05-30-19 07 [facility] Repository (2 sources) Iodinated Contrast- Oral and IV Dye Drug allergy (disorder) 12-14-19 17 [facility] Repository (20 sources) Cephalexin; Translations: [KEFLEX] Drug Allergy 06-05-[address] [facility] ([facility] sources) Contrast media allergy to substance [facility] Work Phone: (20 sources) levoFLOXacin; Translations: [Levaquin] Drug Allergy [facility] Work Phone: (20 sources) Sulfonamides (Antibiotic); Translations: [Sulfa Drugs] drug allergy [facility] [employer] Work Phone: (1 source) Sulfonamides (Antibiotic); Translations: [SULFA ANTIBIOTICS] Propensity to adverse reactions to drug (disorder) 09-28-[address] [facility] (20 sources) IODINATED CONTRAST MEDIA; Translations: [IODINATED CONTRAST MEDIA] Propensity to adverse reactions to drug (disorder) 09-28-[address] [facility] Repository Comment on above: syncope (20 sources) Sulfamethoxazole / Trimethoprim; Translations: [Bactrim] Drug Allergy 06-29-19 23 Rash, Unknown [place] [address] Work Phone: (1 source) Contrast media Unknown [facility] Other Phone (unformatted): [phone] Comment on above: States that she pass ed out (1 source) Sulfamethoxazole / Trimethoprim Drug Allergy Rash [facility] Other Phone (unformatted): [phone] (20 sources) Cephalexin Drug Allergy 06-05-19 10 Unknown, Other, Hives [facility] (20 sources) levoFLOXacin Drug Allergy 05-29-19 07 Rash, Hives, Other [facility] Work Phone: (20 sources) Sulfonamides (Antibiotic) Drug Allergy 05-30-19 Rash, Hives [facility] Work Phone: (1 source) Sulfonamides (Antibiotic) Propensity to adverse reactions (disorder) [facility] (12 sources) Acyclovir; Translations: [ACYCLOVIR] Drug Allergy 03-15-20 13 Vomiting [facility] (12 sources) Digoxin; Translations: [DIGOXIN] Drug Allergy 05-30-19 07 [facility] (12 sources) Propranolol; Translations: [PROPRANOLOL HCL] Drug Allergy 05-30-19 07 [facility] (3 sources) dye [Other] Propensity to adverse reactions 05-30-19 07 [facility] (5 sources) Sulfamethoxazole / Trimethoprim; Translations: [SULFAMETHOXAZOLE-T RIMETHOPRIM] Drug Allergy 06-29-19 [facility] 1 Repository (1 source) Contrast media; Translations: [iodinated radiocontrast agents] Drug allergy [facility] (3 sources) Sulfamethoxazole; Translations: [sulfamethoxazole] Drug Allergy 07-18-19 [facility] (2 sources) Sulfonamides (Antibiotic) Allergy to substance 07-18-19 [facility] (2 sources) Trimethoprim Drug Allergy 07-18-19 [facility] (1 source) Sulfamethoxazole Drug Allergy 07-25-19 [facility] Repository (1 source) Trimethoprim Drug Allergy 07-25-19 [facility] Repository Medications Current Medications Medication Drug Class(es) Dates Sig (Normalized) Sig (Original) acetaminophen 325 mg oral tablet (3 sources) Start: 07-11-2024 take 1 tablet by mouth once as needed for pain Acetaminophen (Tylenol) 325 mg tablet Active 325 mg PO ONCE as needed for pain July 11, 2024 1:00am Start: 04-24-2023 take 1 tablet by vane th every four hours as needed acetaminophen (Tylenol) tablet 650 mg acetaminophen 325 mg / HYDROcodone bitartrate 5 mg oral tablet (2 sources) Opioid Agonist Start: 07-17-2024 take 1 tablet by mouth every eight hours as needed for pain Hydrocodone-Acetaminophen 5-325 mg tablet Active 1 {tbl} PO Q8H as needed for pain 10 4 July 17, 2024 acetaminophen 325 mg / oxyCODONE hydrochloride 5 mg oral tablet (1 source) Opioid Agonist Start: 04-24-2023 take 1 tablet by mouth every six hours as needed oxyCODONE-acetaminophen (Percocet) 5-325 mg per tablet 1 tablet albuterol 0.83 mg/ml inhalation solution (20 sources) beta2-Adren ergic Agonist Start: 04-24-2023 take 2.5 mg by inhalation every four hours as needed albuterol 2.5 mg /3 mL (0.083 %) nebulizer solution 2.5 mg Start: 06-11-2019 Albuterol Sulf ate (2.5 MG/3ML) 0.083% Inhalation Nebulization Solution USE 1 UNIT DOSE IN NEBULIZER EVERY 4 TO 6 HOURS NEEDED. Quantity: 1 Refills: 3 Katharine Rye Start : 11-Jun-2019 Active 25 x 3 ML Plas Cont Start: 10-16-2018 take 1-2 puff(s) by inhalation every six hours as needed Ventolin HFA 108 (90 Base) MCG/ACT Inhalation Aerosol Solution INHALE 1 TO 2 PUFFS EVERY 6 HOURS NEEDED. Quantity: 1 Refills: 3 Katharine Rey Start : 16-Oct-2018 Active 8 GM Inhaler albuterol 0.833 mg/ml / ipratropium bromide 0.167 mg/ml inhalation solution (20 sources) Anticholinergic, beta2-Adrenergic Agonist Start: 10-14-2024 ipratropium-albuteroL (Duo-Neb) 0.5-2.5 mg/3 mL nebulizer solution Indications: chronic obstructive pulmonary disease with bronchospasms Take 3 mL by nebulization every 6 hours. 180 mL 3 10/14/2024 Active Start: 07-15-2024 Ipratropium-Al buterol 0.5 mg-3 mg(2.5 mg base)/3 mL solution for nebulization Active 3 mL INHALATION NEEDED July 15, 2024 12:00am Start: 04-16-2024 ipratropium-al buteroL (Duo-Neb) 0.5-2.5 mg/3 mL nebulizer solution Indications: chronic obstructive pulmonary disease with bronchospasms Take 3 mL by nebulization every 6 hours. 180 mL 3 04/16/2024 Active Start: 01-03-2024 DuoNeb Nebuliz ed, QID, 0 Refill(s) Start Date: 01/03/24 Status: Ordered Start: 04-24-2023 ipratropium-al buteroL (Duo-Neb) 0.5-2.5 mg/3 mL nebulizer solution 3 mL Start: 09-26-2022 End: 04-24-2023 ipratropium-albuteroL (Duo-N eb) 0.5-2.5 mg/3 mL nebulizer solution Indications: chronic obstructive pulmonary disease with bronchospasms Take 3 mL by nebulization every 6 hours. 180 mL 3 02/23/2023 Active Start: 11-17-2020 take 1 [IU] by inhal ation every four hours as needed Ipratropium-Albuterol 0.5-2.5 (3) MG/3ML Inhalation Solution USE 1 UNIT DOSE IN NEBULIZER EVERY 4 HOURS NEEDED. Quantity: 3 Refills: 5 Ordered: 17-Nov-2020 Ronit Doan DO Start : 17-Nov-2020 Active Start: 07-16-2019 Ipratropium-Al buterol 0.5-2.5 (3) MG/3ML Inhalation Solution ADMINISTER ONE 3 ML VIAL 4 TIMES DAILY VIA NEBULIZATION NEEDED FOR WHEEZING AND SHORTNESS OF BREATH Quantity: 1 Refills: 2 Katharine Rey Start : 16-Jul-2019 Active 60 x 3 ML Plas Cont ipratropium-albu teroL (Duo-Neb) 0.5-2.5 mg/3 mL nebulizer solution Indications: chronic obstructive pulmonary disease with bronchospasms Take 3 mL by nebulization every 6 hours. 0 Active Bacillus coagulans (PROBIOTI C, B. 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 (11 sources) Bacillus coagula ns (PROBIOTIC, B. 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 Indications: CAD, multiple vessel , Atrial fibrillation, unspecified type (HCC) , Anxiety disorder in conditions classified elsewhere , Type 2 diabetes mellitus without complication, without long-term current use of insulin (HCC) , Cardiac pacemaker in situ , Facet syndrome , Benzodiazepine contract exists Take by mouth. Active Bacillus coagula ns (PROBIOTIC, B. 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 Indications: CAD, multiple vessel , Atrial fibrillation, unspecified type (HCC) , Anxiety disorder in conditions classified elsewhere , Type 2 diabetes mellitus without complication, without long-term current use of insulin (HCC) , Cardiac pacemaker in situ , Facet syndrome , Benzodiazepine contract exists Take by mouth. 0 Active Comment on above: Take by mouth. Bacillus coagulans 10 billio n cell capsule,delayed release(DR/EC) (20 sources) Bacillus coagula ns 10 billion cell capsule,delayed release(DR/EC) Take by mouth. Active Bacillus coagula ns 10 billion cell capsule,delayed release(DR/EC) Take by mouth. 0 Suspended Bacillus coagula ns 10 billion cell capsule,delayed release(DR/EC) Take by mouth. 0 Active black cohosh extract 540 mg oral capsule (11 sources) Black Cohosh 540 mg cap Indications: CAD, multiple vessel , Atrial fibrillation, unspecified type (HCC) , Anxiety disorder in conditions classified elsewhere , Type 2 diabetes mellitus without complication, without long-term current use of insulin (HCC) , Cardiac pacemaker in situ , Facet syndrome , Benzodiazepine contract exists Take by mouth. Active Black Cohosh 540 mg cap Indications: CAD, multiple vessel , Atrial fibrillation, unspecified type (HCC) , Anxiety disorder in conditions classified elsewhere , Type 2 diabetes mellitus without complication, without long-term current use of insulin (HCC) , Cardiac pacemaker in situ , Facet syndrome , Benzodiazepine contract exists Take by mouth. 0 Active Comment on above: Take by mouth. budesonide 0.25 mg/ml inhalation suspension (20 sources) Corticosteroid Start: 04-24-2023 budesonide (Pulmicort) 0.5 mg/2 mL nebulizer solution 0.5 mg Start: 08-01-2018 take 2 puff(s) by [facility] twice daily Pulmicort Flexhaler 90 MCG/ACT Inhalation Aerosol Powder Breath Activated INHALE 2 PUFFS, BY MOUTH, TWICE DAILY. RINSE MOUTH AFTER USE. Quantity: 6 Refills: 3 Ordered: 29-Jun-2022 Ronit Doan DO Start : 01-Aug-2018 Active cetirizine hydrochloride 10 mg oral tablet (20 sources) Histamine-1 Receptor Antagonist Start: 07-11-2024 take 1 tablet by mouth once daily as needed Cetirizine (Zyrtec) 10 mg tablet Active 10 mg PO daily as needed for allergy symptoms July 11, 2024 1:00am Start: 08-01-2018 take 1 capsule by mo uth once daily cetirizine (ZyrTEC) 10 mg capsule Take 1 capsule (10 mg) by mouth once daily. 08/01/2018 Active Start: 08-01-2018 ZyrTEC Allergy 10 MG Oral Capsule Quantity: 0 Refills: 0 Ordered: 01-Aug-2018 DO Start : 01-Aug-2018 Active cetirizine HCl ( ZYRTEC ORAL) Take by mouth as needed. Active cetirizine HCl ( ZYRTEC ORAL) Take by mouth as needed. 0 Active Comment on above: Take by mouth as nee ded. diclofenac sodium 0.01 mg/mg topical gel (11 sources) Nonsteroidal Anti-inflammatory Drug Start: 017 apply 4 g topically four times daily diclofenac sodium (VOLTAREN) 1 % topical gel Indications: CAD, multiple vessel , Atrial fibrillation, unspecified type (HCC) , Anxiety disorder in conditions classified elsewhere , Type 2 diabetes mellitus without complication, without long-term current use of insulin (HCC) , Cardiac pacemaker in situ , Facet syndrome , Benzodiazepine contract exists Apply 4 g to affected area four times daily. As Directed. 1 Tube 11 08/24/2016 Active Comment on above: Apply 4 g to affecte d area four times daily. As Directed. 24 hr dilTIAZem hydrochloride 240 mg extended release oral capsule (20 sources) Calcium Channel Aaron Start: 025 take 1 capsule by mouth every twelve hours dilTIAZem CD (Cardizem CD) 240 mg 24 hr capsule Indications: Atrial fibrillation, unspecified type (Multi) Take 1 capsule (240 mg) by mouth every 12 hours. 180 capsule 3 12/18/2024 Active Start: 07-11-2024 take 1 capsule by mo uth twice daily, then take 1 capsule by mouth every twenty-four hours Diltiazem Hcl (Cardizem Cd) 240 mg capsule,extended release 24hr Active 240 mg PO TWICE A DAY July 11, 2024 1:00am Start: 01-03-2024 Cardizem 0 Ref ill(s) Start Date: 01/03/24 Status: Ordered Start: 09-19-2023 take 1 capsule by mo uth every twelve hours dilTIAZem CD (Cardizem CD) 240 mg 24 hr capsule Indications: Atrial fibrillation, unspecified type (Multi) Take 1 capsule (240 mg) by mouth every 12 hours. 180 capsule 3 09/19/2023 Active Start: 04-24-2023 take 240 mg by mouth every twelve hours 240 mg, oral, Every 12 hours, First dose on 04/24/23 at 0515 Do not crush, chew, or split. Indications: paroxysmal supraventricular tachycardia, ventricular rate control in atrial fibrillation, pt is waiting for mail order to arrive. Start: 11-01-2022 take 2 capsules by m outh every twelve hours dilTIAZem CD (Cardizem CD) 240 mg 24 hr capsule Take 2 capsules (480 mg) by mouth every 12 hours. 0 11/01/2022 Active Start: 05-17-2019 take 1 capsule by mo uth every twelve hours dilTIAZem HCl ER Beads 240 MG Oral Capsule Extended Release 24 Hour TAKE 1 CAPSULE Every twelve hours Quantity: 28 Refills: 0 Ordered: 01-Nov-2022 Timothy Palacio DO Start : 17-May-2019 Active PATIENT WAITING ON A MAIL ORDER Start: 01-31-2018 End: 06-12-2023 take 1 capsule by mouth every twelve hours, then take 1 capsule by mouth every twenty-four hours dilTIAZem CD (CARDIZEM CD, CARTIA XT) 240 mg 24 hr capsule Take 240 mg by mouth every 12 hours. 01/31/2018 Active Start: 01-31-2018 dilTIAZem HCl ER 240 MG CP24 Take 1 capsule twice daily Quantity: 14 Refills: 0 Katharine Rey Start : 31-Jan-2018 Active Comment on above: Take 240 mg by mouth once daily. Take 240 mg by mouth every 12 hours. doxycycline hyclate 100 mg oral tablet (20 sources) Tetracycline-class Drug Start: 12-10-2022 Doxycycline hyclate 100 mg oral tablet Start: 06-29-2022 End: 04-24-2023 take 1 capsule by mouth every twelve hours doxycycline (Vibramycin) 100 mg capsule Take 1 capsule (100 mg) by mouth every 12 hours. 0 06/29/2022 04/24/2023 Discontinued (Discontinued by another clinician) Start: 06-29-2022 take 1 capsule by [facility] once daily Doxycycline Hyclate 100 MG Oral Capsule TAKE 1 CAPSULE EVERY 12 HOURS DAILY. Quantity: 10 Refills: 0 Ordered: 29-Jun-2022 Ronit Doan DO Start : 29-Jun-2022 Active Start: 04-03-2018 take 1 capsule by [facility] twice daily doxycycline monohydrate (MONODOX) 100 mg capsule Take 1 capsule by mouth twice daily. 14 capsule 1 04/03/2018 Active Comment on above: Take 1 capsule by [facility] twice daily. esomeprazole 20 mg delayed release oral capsule (20 sources) Proton Pump Inhibitor Start: 03-21-20 take 1 capsule by mouth once daily Esomeprazole Magnesium (Nexium) 20 mg capsule,delayed release(DR/EC) Active 20 mg PO daily July 11, 2024 1:00am Comment on above: Take 20 mg by mouth DAILY (6 AM). Fluticasone-Umeclidin -Vilanter (2 sources) Anticholinergic, Corticosteroid, beta2-Adrenergic Agonist Start: 07-12-19 25 Fluticasone-Umeclidi n-Vilanter (Trelegy Ellipta) 100-62.5-25 mcg blister with device Active 1 NMA INHALATION Q24H July 11, 2024 1:00am fluticasone-umeclidin -vilanter (Trelegy Ellipta) 200-62.5-25 mcg blister with device (20 sources) take 1 puff(s) by inhalation once daily fluticasone-umeclidi n-vilanter (Trelegy Ellipta) 200-62.5-25 mcg blister with device Inhale 1 puff once daily. Active take 1 puff(s) by in halation once daily scscimeixta-rtchllagf-ntyvdgqd (Trelegy Ellipta) 200-62.5-25 mcg blister with device Inhale 1 puff once daily. 0 Suspended take 1 puff(s) by in halation once daily pzluwkycoyl-yaeubgzbb-kgzbqtgq (Trelegy Ellipta) 200-62.5-25 mcg blister with device Inhale 1 puff once daily. 0 Active formoterol fumarate 0.01 mg/ml inhalation solution (1 source) beta2-Adrenergic Agonist Start: 04-24-2023 formoterol (Perforomist) 20 mcg/2 mL nebulizer solution 20 mcg furosemide 20 mg oral tablet (20 sources) Loop Diuretic Start: 09-18-2024 take 2 tablets by mouth once daily in the morning, then take 1 tablet by mouth once daily in the evening furosemide (Lasix) 20 mg tablet Indications: edema Take 2 tablets (40 mg) by mouth once daily in the morning AND 1 tablet (20 mg) once daily in the evening. Every evening. 270 tablet 3 12/19/2024 3:13 PM EDT 09/18/2024 Active Start: 07-11-2024 take 1 tablet by vane th once daily in the evening Furosemide (Lasix) 20 mg tablet Active 20 mg PO EVERY EVENING July 11, 2024 1:00am Start: 07-11-2024 take 1 tablet by vane th once daily in the morning Furosemide (Lasix) 40 mg tablet Active 40 mg PO EVERY MORNING July 11, 2024 1:00am Start: 01-03-2024 Lasix qDay, 0 Refill(s) Start Date: 01/03/24 Status: Ordered Start: 09-20-2023 take 2 tablets by mo uth once daily in the morning, then take 1 tablet by mouth once daily in the evening furosemide (Lasix) 20 mg tablet Indications: edema Take 2 tablets (40 mg) by mouth once daily in the morning AND 1 tablet (20 mg) once daily in the evening. Every evening. 270 tablet 3 09/20/2023 Active Start: 04-04-2023 End: 05-15-2024 take 1 tablet by mouth once daily in the morning furosemide (Lasix) 40 mg tablet Indications: Heart failure with preserved ejection fraction, unspecified HF chronicity (Multi) Take 1 tablet (40 mg) by mouth once daily in the morning. 90 tablet 3 05/16/2023 05/15/2024 Active Start: 10-17-2019 End: 04-03-2024 furosemide (LASIX) 40 mg tab let Take by mouth every 24 hours. Patient takes 40mg in the morning, 20mg in the evening 0 10/17/2019 04/03/2024 Active Start: 10-17-2019 Furosemide 40 MG Oral Tablet TAKE 1 1/2 TABLET DAILY. Quantity: 135 Refills: 3 Ordered: 21-Mar-2022 Charline Hagen MD Start : 17-Oct-2019 Active Start: 10-17-2019 take 1 tablet by vane th three times weekly Furosemide 40 MG Oral Tablet TAKE 1 TABLET three times weekly, Monday, , Monday Refills: 3 Katharine Rey Start : 17-Oct-2019 Active take 1 tablet by vane th once daily in the evening furosemide (Lasix) 20 mg tablet Indications: edema Take 1 tablet (20 mg) by mouth once daily. Every evening Active Comment on above: Take by mouth every 24 hours. Take by mouth every 24 hours. Patient takes 40mg in the morning, 20mg in the evening Lactobacillus acidophilus (10 sources) Lactobacillus ac idophilus (PROBIOTIC ORAL) Take by mouth once daily. Active Lactobacillus ac idophilus (PROBIOTIC ORAL) Take by mouth once daily. 0 Active Comment on above: Take by mouth once d aily. lactobacillus acidophilus [id number] unt / pectin 100 mg oral capsule (1 source) Start: 3 take 1 capsule by mouth once daily 1 capsule, oral, Daily, First dose on Mon04/24/23 at 0900 Lactobacillus Combination No.4 (Probiotic) 3 billion cell capsule (2 sources) Start: 5 take 3 capsules by mouth once daily Lactobacillus Combination No.4 (Probiotic) 3 billion cell capsule Active 3000 NMA PO daily July 11, 2024 1:00am administer with a meal 200 actuat levalbuterol 0.045 mg/actuat metered dose inhaler (20 sources) beta2-Adrenergic Agonist Start: 5 Levalbuterol Tartrate (Xopenex Hfa) 45 mcg/actuation HFA aerosol inhaler Active 2 NMA INHALATION EVERY 6 HOURS July 11, 2024 1:00am Start: 01-03-2024 take 1 dose by inhal ation three times daily Xopenex 0.31 mg/3 mL inhalation solution Dose : 0.31 mg = 3 mL, Nebulized, TID, 0 Refill(s) Start Date: 01/03/24 Status: Ordered Start: 06-17-2022 take 2 puff(s) by in halation every four hours for wheezing levalbuterol (Xopenex) 45 mcg/actuation inhaler Inhale 2 puffs every 4 hours if needed for wheezing. 06/17/2022 Active Start: 10-04-2019 take 2 puff(s) by in halation every six hours as needed Xopenex HFA 45 MCG/ACT Inhalation Aerosol INHALE 2 PUFFS EVERY 6 HOURS NEEDED. Quantity: 3 Refills: 0 Ordered: 04-Oct-2019 Katharine Rey Start : 04-Oct-2019 Active Start: 10-04-2019 take 2 puff(s) by in halation every six hours as needed Xopenex HFA 45 MCG/ACT Inhalation Aerosol INHALE 2 PUFFS EVERY 6 HOURS NEEDED. Quantity: 3 Refills: 0 Katharine Rey Start : 04-Oct-2019 Active 15 GM Inhaler lisinopril 10 mg oral tablet (20 sources) Angiotensin Converting Enzyme Inhibitor Start: 11-19-2024 take 1 tablet by mouth once daily lisinopril 10 mg tablet Indications: Essential hypertension Take 1 tablet (10 mg) by mouth once daily. 90 tablet 3 11/19/2024 Active Start: 01-03-2024 lisinopril Alonzoa lucinda, qDay, 0 Refill(s) Start Date: 01/03/24 Status: Ordered Start: 03-01-2023 take 1 tablet by vane th once daily lisinopril 10 mg tablet Indications: Essential hypertension Take 1 tablet (10 mg) by mouth once daily. 90 tablet 3 11/22/2023 Active Start: 03-24-2021 End: 02-27-2023 take 1 tablet by mouth once daily lisinopril 10 mg tablet Take 1 tablet (10 mg) by mouth once daily. 0 05/31/2022 02/27/2023 Discontinued (Reorder) Start: 03-24-2021 take 1 tablet by vane th once daily Lisinopril 5 MG Oral Tablet TAKE 1 TABLET BY MOUTH EVERY DAY Quantity: 90 Refills: 0 Ordered: 24-Mar-2021 DO Start : 24-Mar-2021 Active Lisinopril 40 mg oral tablet Comment on above: Take 1 tablet (10 mg ) by mouth once daily. loratadine 10 mg oral tablet (1 source) Start: 04-24-2023 take 10 mg by mouth once daily 10 mg, oral, Daily, First dose on Mon04/24/23 at 0900 Magnesium (20 sources) Magnesium 250 mg tab Indications: CAD, multiple vessel , Atrial fibrillation, unspecified type (HCC) , Anxiety disorder in conditions classified elsewhere , Type 2 diabetes mellitus without complication, without long-term current use of insulin (HCC) , Cardiac pacemaker in situ , Facet syndrome , Benzodiazepine contract exists Take 500 mg by mouth. Active take 500 mg by mouth once daily MAGNESIUM ORAL Take 500 mg by mouth once daily. Active End: 04-24-2023 take 800 mg by mouth once daily MAGNESIUM ORAL Take 800 mg by mouth once daily. 0 04/24/2023 Discontinued (Discontinued by another clinician) Magnesium 250 mg tab Indications: CAD, multiple vessel , Atrial fibrillation, unspecified type (HCC) , Anxiety disorder in conditions classified elsewhere , Type 2 diabetes mellitus without complication, without long-term current use of insulin (HCC) , Cardiac pacemaker in situ , Facet syndrome , Benzodiazepine contract exists Take 500 mg by mouth. 0 Active take 500 mg by mouth once daily MAGNESIUM ORAL Take 500 mg by mouth once daily. 0 Active Comment on above: Take 500 mg by mouth . Take 500 mg by mouth once daily. magnesium gluconate 500 mg oral tablet (2 sources) Start: 07-15-2024 take 1 tablet by mouth once daily Magnesium Gluconate 27.5 mg magne- sium (500 mg) tablet Active 27.5 mg PO DAILY July 15, 2024 12:00am magnesium oxide 400 mg oral tablet (20 sources) Start: 04-24-2023 take 400 mg by mouth once daily 400 mg, oral, Daily, First dose on Mon04/24/23 at 0900 Start: 08-01-2018 take 1 capsule by [facility] once daily magnesium oxide 500 mg capsule Take 1 capsule (500 mg) by mouth once daily. 08/01/2018 Active 24 hr metFORMIN hydrochloride 500 mg extended release oral tablet (10 sources) Biguanide Start: 12-09-2024 take 1 tablet by mouth twice daily metFORMIN XR (Glucophage-XR) 500 mg 24 hr tablet Indications: Type 2 diabetes mellitus with hypoglycemia without coma, without long-term current use of insulin (Multi) Take 1 tablet (500 mg) by mouth 2 times daily (morning and late afternoon). Do not crush, chew, or split. 90 tablet 1 01/23/2025 11:21 AM EDT 12/09/2024 Active Start: 10-28-2024 take 1 tablet by vane th twice daily metFORMIN XR (Glucophage-XR) 500 mg 24 hr tablet Indications: Type 2 diabetes mellitus with hypoglycemia without coma, without long-term current use of insulin Take 1 tablet (500 mg) by mouth 2 times daily (morning and late afternoon). Do not crush, chew, or split. 90 tablet 1 10/28/2024 Active Start: 10-22-2024 End: 10-28-2024 take 1 tablet by mouth once daily metFORMIN XR (Glucophage-XR) 500 mg 24 hr tablet Indications: Type 2 diabetes mellitus with hypoglycemia without coma, without long-term current use of insulin Take 1 tablet (500 mg) by mouth once daily. Do not crush, chew, or split. 90 tablet 1 10/22/2024 10/28/2024 Discontinued (Dose adjustment) Start: 07-22-2024 take 1 tablet by vane th once daily metFORMIN XR (Glucophage-XR) 500 mg 24 hr tablet Indications: Type 2 diabetes mellitus with hypoglycemia without coma, without long-term current use of insulin Take 1 tablet (500 mg) by mouth once daily. Do not crush, chew, or split. 90 tablet 07/22/2024 Active methocarbamol 750 mg oral tablet (20 sources) Muscle Relaxant Start: 04-24-2023 End: 04-24-2023 take 1 tablet by mouth three times daily as needed for muscle spasms methocarbamol (Robaxin) 750 mg tablet Indications: Left hip pain Take 1 tablet (750 mg) by mouth 3 times a day as needed for muscle spasms. 12 tablet 04/24/2023 12:10 PM EST 04/24/2023 Active Start: 04-24-2023 methocarbamol (Robaxin) tablet 750 mg methylPREDNISolone (11 sources) Corticosteroid Start: 06-27-2017 methylPREDNISo lone (MEDROL, CHRISSY,) 4 mg Dose-Pack Indications: Acute bronchitis, unspecified organism As instructed per package 1 Package 06/27/2017 Active Start: 06-27-2017 methylPREDNISo lone (MEDROL, CHRISSY,) 4 mg Dose-Pack Indications: Acute bronchitis, unspecified organism As instructed per package 1 Package 0 06/27/2017 Active Comment on above: As instructed per teddy tesfaye nebulizer accessories misc (20 sources) Start: 10-15-2024 nebulizer accessories misc Indications: Mild persistent asthma without complication (HHS-HCC) Dispense Nebulizer tubing and mouthpiece at quantity allowed per Medicare per month with one year of refills 1 each 11 10/15/2024 Active Start: 06-23-2023 nebulizer acce ssories misc Indications: Mild persistent asthma without complication (HHS-HCC) Dispense Nebulizer tubing and mouthpiece at quantity allowed per Medicare per month with one year of refills 1 each 11 06/23/2023 Active Start: 06-23-2023 nebulizer acce ssories misc Indications: Mild persistent asthma without complication Dispense Nebulizer tubing and mouthpiece at quantity allowed per Medicare per month with one year of refills 1 each 11 06/23/2023 Active Start: 08-25-2022 End: 12-15-2022 nebulizer accessories misc I ndications: Moderate persistent asthma without complication 1 each every 6 hours if needed (with nebulizer). Dispense whatever quantity of tubing and mouthpiece that are covered by pt insurance. Please contact patient when ready. Please call [phone] with problems 1 each 5 08/25/2022 12/15/2022 Discontinued (Therapy completed) Start: 08-25-2022 nebulizer acce ssories misc Indications: Moderate persistent asthma without complication 1 each every 6 hours if needed (with nebulizer). Dispense whatever quantity of tubing and mouthpiece that are covered by pt insurance. Please contact patient when ready. Please call [phone] with problems 1 each 5 08/25/2022 Active nitroglycerin 0.4 mg sublingual tablet (20 sources) Nitrate Vasodilator Start: 04-24-2023 0.4 mg, more blingual, Every 5 min PRN, chest pain, Starting on 04/24/23 at 0455 May administer up to 3 doses per episode. Start: 03-24-2021 nitroglycerin (Nitrostat) 0.[address] 1 tablet (0.4 mg) under the tongue every 5 minutes if needed for chest pain. 03/24/2021 Active pantoprazole 20 mg delayed release oral tablet (1 source) Proton Pump Inhibitor Start: 04-24-2023 take 20 mg by mouth once daily before breakfast 20 mg, oral, Daily before breakfast, First dose on Mon04/24/23 at 0700 Do not crush, chew, or split. PARoxetine hydrochloride 10 mg oral tablet (11 sources) Serotonin Reuptake Inhibitor Start: 08-24-2016 take 1 tablet by mouth once daily in the morning PARoxetine (PAXIL) 10 mg tablet Indications: CAD, multiple vessel , Atrial fibrillation, unspecified type (HCC) , Anxiety disorder in conditions classified elsewhere , Type 2 diabetes mellitus without complication, without long-term current use of insulin (HCC) , Cardiac pacemaker in situ , Facet syndrome , Benzodiazepine contract exists Take 1 tab PO qd in morning. 30 tablet 6 08/24/2016 Active Comment on above: Take 1 tab PO qd in morning. polyethylene glycol [id number] mg powder for oral solution (1 source) Osmotic Laxative Start: 04-24-2023 take 17 g by mouth every twenty-four hours as needed polyethylene glycol (Glycolax, Miralax) packet 17 g pravastatin sodium 20 mg oral tablet (20 sources) HMG-CoA Reductase Inhibitor Start: 02-10-2025 take 1 tablet by mouth once daily pravastatin (Pravachol) 20 mg tablet Indications: Hypercholesterolemia , Type 2 diabetes mellitus with hyperglycemia, without long-term current use of insulin (Multi) Take 1 tablet (20 mg) by mouth once daily. 90 tablet 3 02/12/2025 10:22 AM EDT 02/10/2025 Active Start: 07-11-2024 End: 07-15-2024 take 1 tablet by mouth once daily Pravastatin 10 mg tablet Discontinued 10 mg PO daily July 11, 2024 1:00am July 15, 2024 1:07pm Start: 01-03-2024 pravastatin Or al, qDay, 0 Refill(s) Start Date: 01/03/24 Status: Ordered Start: 09-11-2015 End: 01-20-2026 take 1 tablet by mouth once daily pravastatin (Pravachol) 40 mg tablet Indications: Atherosclerosis of coronary artery of [place] heart, unspecified vessel or lesion type, unspecified whether angina present , Hypercholesterolemia , Stenosis of carotid artery, unspecified laterality Take 1 tablet (40 mg) by mouth once daily. 90 tablet 3 01/23/2025 11:21 AM EDT 01/20/2025 01/20/2026 Active Start: 09-11-2015 take 1 tablet by vane th once daily pravastatin (PRAVACHOL) 20 mg tablet TAKE 1 TABLET BY MOUTH EVERY DAY 90 tablet 3 06/11/2018 Active Comment on above: TAKE 1 TABLET BY VANE TH EVERY DAY Take 1 tablet by vane th every afternoon. 10 actuat tiotropium 0.0025 mg/actuat inhalation spray (1 source) Anticholinergic Start: 04-24-20 2 puff (2 Inhalation), inhalation, Daily RT, First dose on Mon04/24/23 at 0700 Label inhaler with 3 month expiration date after inserting canister. traMADol hydrochloride 50 mg oral tablet (20 sources) Opioid Agonist Start: 02-15-20 End: 03-16-20 take 1 tablet by mouth every eight hours in the evening for pain traMADol (Ultram) 50 mg tablet Indications: Generalized arthritis Take 1 tablet (50 mg) by mouth every 8 hours if needed for severe pain (7 - 10). 90 tablet 02/14/2025 4:42 PM EDT 02/14/2025 03/16/2025 Active Start: 12-03-2024 take 1 tablet by vane th every eight hours for pain traMADol (Ultram) 50 mg tablet Indications: Generalized arthritis Take 1 tablet (50 mg) by mouth every 8 hours if needed for severe pain (7 - 10). 90 tablet 12/04/2024 11:00 AM EDT 12/03/2024 Active Start: 10-09-2024 take 1 tablet by vane th every eight hours for pain traMADol (Ultram) 50 mg tablet Indications: Generalized arthritis Take 1 tablet (50 mg) by mouth every 8 hours if needed for severe pain (7 - 10). 90 tablet 10/09/2024 Active Start: 09-02-2024 take 1 tablet by vane th every eight hours for pain traMADol (Ultram) 50 mg tablet Indications: Generalized arthritis Take 1 tablet (50 mg) by mouth every 8 hours if needed for severe pain (7 - 10). 90 tablet 09/02/2024 Active Start: 07-11-2024 take 1 tablet by vane th every six hours as needed for pain Tramadol 25 mg tablet Active 25 mg PO EVERY 6 HOURS as needed for pain July 11, 2024 1:00am Start: 01-03-2024 take 1 dose by mouth every six hours Ultram Dose : 50 mg =, Oral, q6hr, 0 Refill(s) Start Date: 01/03/24 Status: Ordered Start: 05-26-2022 End: 02-08-2024 take 1 tablet by mouth every eight hours for pain traMADol (Ultram) 50 mg tablet Indications: Generalized arthritis Take 1 tablet (50 mg) by mouth every 8 hours if needed for severe pain (7 - 10). 90 tablet 07/24/2024 Active Start: 01-22-2021 take 1 tablet by vane th every six hours as needed for pain traMADol HCl - 50 MG Oral Tablet take 1 tablet by mouth every 6 hours as needed for pain Quantity: 12 Refills: 0 Ordered: 22-Jan-2021 DO Start : 22-Jan-2021 Complete Comment on above: Take 1 tablet (50 mg ) by mouth every 8 hours if needed for severe pain (7 - 10). Trelegy Ellipta 100 mcg-62.5 mcg-25 mcg/inh inhalation powder (1 source) Start: 01-03-2024 take 1 dose by mouth once daily Trelegy Ellipta 100 mcg-62.5 mcg-25 mcg/inh inhalation powder Dose = 1 puff(s), Inhalation, qDay, at the same time every day. Following administration, rinse mouth with water after use (do not swallow)., # 60 EA, 0 Refill(s) Start Date: 01/03/24 Status: Ordered warfarin sodium 2.5 mg oral tablet (20 sources) Vitamin K Antagonist Start: 11-18-2024 warfarin (Coumadin) 2.5 mg tablet Indications: Chronic atrial fibrillation (Multi) Take once daily as directed by physician. 90 tablet 3 11/18/2024 Active Start: 07-15-2024 take 1.25 mg by mouth once War farin 2.5 mg tablet Active 1.25 mg PO every Monday, , Th, Sat July 15, 2024 12:00am Start: 07-11-2024 Warfarin 2 mg tablet Active 2.5 mg PO MOWEFR July 11, 2024 1:00am Start: 01-03-2024 Coumadin Oral, qDay, 0 Refill(s) Start Date: 01/03/24 Status: Ordered Start: 11-06-2023 warfarin (Coum mary) 2.5 mg tablet Indications: Chronic atrial fibrillation (Multi) Take once daily as directed by physician. 90 tablet 3 11/06/2023 Active Start: 04-25-2023 warfarin (Coum mary) tablet 1.25 mg Start: 04-24-2023 warfarin (Coum mary) tablet 2.5 mg Start: 04-10-2023 take 1 tablet by mouth once wa rfarin (COUMADIN) 2.5 mg tablet Take 1 tablet by mouth every afternoon. 04/10/2023 Active Start: 09-09-2022 warfarin (Coum mary) 2.5 mg tablet Indications: Chronic atrial fibrillation (Multi) Take once daily . 90 tablet 3 09/09/2022 Active Start: 09-09-2022 take 1 tablet by vane th once daily Warfarin Sodium 2.5 MG Oral Tablet take 1 tablet by mouth once a day. Quantity: 90 Refills: 0 Ordered: 09-Sep-2022 DO Start : 09-Sep-2022 Active Start: 08-01-2022 take 1 tablet by vane th once daily in the evening Warfarin Sodium 5 MG Oral Tablet For 4 days, take warfarin and xarelto together. After that, stop xarelto and take one warfarin 5 mg every evening. Quantity: 30 Refills: 0 Ordered: 01-Aug-2022 DO Start : 01-Aug-2022 Active take 1.25 mg by mout h once daily warfarin sodium (COUMADIN ORAL) Take 1.25 mg by mouth once daily. Takes Monday//monday Active take 1.25 mg by mout h once daily warfarin sodium (COUMADIN ORAL) Take 1.25 mg by mouth once daily. Takes Monday//monday 0 Active take 1.25 mg by mout h once daily warfarin sodium (COUMADIN ORAL) Take 1.25 mg by mouth once daily. Takes Monday//monday 0 Suspended Warfarin 1 mg or al tablet Comment on above: Take 1 tablet by vane th every afternoon. (1 source) Orlando Kim m, Inhaler Completed/Discontinued Medications Medication Drug Class(es) Dates Sig (Normalized) Sig (Original) amoxicillin 500 mg oral tablet (3 sources) Penicillin-class Antibacterial Start: 07-16-2019 Amoxicillin 500 MG Oral Tablet take four tablets prior to dental procedure Quantity: 4 Refills: 4 Yordy FINKNJuaniREGINOKatharine Start : 16-Jul-2019 Active azithromycin 250 mg oral tablet (20 sources) Macrolide Antimicrobial Start: 01-07-2021 Azithromycin 250 MG Oral Tablet TAKE 2 TABLETS ON DAY 1 THEN TAKE 1 TABLET A DAY FOR 4 DAYS. Quantity: 1 Refills: 0 Ordered: 17-Apr-2021 Nithya Kiser DO Start : 17-Apr-2021 Active Black Cohosh Hot Flash Relief 40 MG Oral Capsule (20 sources) Start: 08-01-2018 take 1 capsule by mouth once daily Black Cohosh Hot Flash Relief 40 MG Oral Capsule TAKE 1 CAPSULE Daily Refills: 0 DO Start : 01-Aug-2018 Active Start: 08-01-2018 take 1 capsule by mo [facility] once daily Black Cohosh Hot Flash Relief 40 MG Oral Capsule TAKE 1 CAPSULE Daily Refills: 0 Start : 01-Aug-2018 Active Black Cohosh Hot Flash Relief 40 MG Oral Capsule (20 sources) Start: 08-01-2018 take 1 capsule by mouth once daily Black [place]osh Hot Flash Relief 40 MG Oral Capsule TAKE 1 CAPSULE Daily Quantity: 0 Refills: 0 Ordered: 21-Mar-2022 DO Start : 01-Aug-2018 Active chlorhexidine gluconate 1.2 mg/ml mouthwash (4 sources) Start: 07-04-2022 End: 12-15-2022 chlorhexidine (Peridex) 0.12 % solution Use 15 mL in the mouth or throat if needed for wound care. 0 07/04/2022 12/15/2022 Discontinued (Therapy completed) cholecalciferol 0.125 mg oral capsule (20 sources) Vitamin D Start: 07-11-2024 End: 07-15-2024 Cholecalciferol (Vitamin D3) (D3-5000) 125 mcg (5,000 unit) capsule Discontinued 125 ug PO daily July 11, 2024 1:00am July 15, 2024 1:12pm Start: 08-01-2018 take 1 capsule by mo ut once daily Vitamin D3 125 MCG (5000 UT) Oral Capsule TAKE 1 CAPSULE Daily Quantity: 0 Refills: 0 Ordered: 01-Aug-2018 DO Start : 01-Aug-2018 Active Start: 06-21-2017 take 1 tablet by vane th once daily cholecalciferol (VITAMIN D3) 2,000 unit tablet Take 1 tablet by mouth once daily. 0 06/21/2017 Active Comment on above: Take 1 tablet by vane once daily. clindamycin 300 mg oral capsule (3 sources) Lincosamide Antibacterial Start: 3 End: 3 take 1 capsule by mouth three times daily clindamycin (Cleocin) 300 mg capsule Indications: Cellulitis of right lower extremity Take 1 capsule (300 mg) by mouth 3 times a day for 10 days. 30 capsule 0 12/15/2022 12/25/2022 Start: 10-27-2020 take 1 tablet by vane twice daily Clindamycin HCl - 150 MG Oral Capsule Take 1 tablet PO BID x 7 days Quantity: 14 Refills: 0 Ordered: 27-Oct-2020 Migdalia Morrow DO Start : 27-Oct-2020 Active cyclobenzaprine hydrochloride 10 mg oral tablet (1 source) Muscle Relaxant Start: 11-02-2021 take 1 tablet by mouth three times daily as needed for muscle spasms Cyclobenzaprine HCl - 10 MG Oral Tablet 1 po up to TID prn back spasm Quantity: 10 Refills: 1 Ordered: 02-Nov-2021 Isrrael KAUR, MPH, Niyah Start : 02-Nov-2021 Active dapagliflozin 10 mg oral tablet (8 sources) Sodium-Glucose Cotransporter 2 Inhibitor Start: 04-19-2023 End: 04-18-2024 take 1 tablet by mouth once daily dapagliflozin propanediol (Farxiga) 10 mg Indications: Chronic heart failure with preserved ejection fraction (CMS/HCC) Take 1 tablet (10 mg) by mouth once daily. 30 tablet 11 04/19/2023 06/07/2023 Discontinued (Therapy completed) diphenhydrAMINE hydrochloride 50 mg oral capsule (2 sources) Histamine-1 Receptor Antagonist Start: 07-15-2021 take 1 capsule by mouth every hour diphenhydrAMINE HCl - 50 MG Oral Capsule 50 mg po- 1 hour prior to the exame Quantity: 1 Refills: 0 Ordered: 15-Jul-2021 Jaylon Kiser DO Start : 15-Jul-2021 Active Disability Placard (20 sources) Start: 07-16-2019 Disability Placard Unable to walk 200 feet without stopping to rest. Duration for 5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 (3 sources) Trigger finger, right middle finger; Translations: [Trigger finger, right middle finger] Onset: 2 Episodic Other connective tissue disease (1 source) Ganglion, left wrist; Translations: [Ganglion, left wrist] Onset: 2 Episodic Other connective tissue disease (20 sources) Acquired trigger finger; Translations: [Trigger finger, unspecified finger] Onset: 3 04-14-2023 Episodic Other connective tissue disease (20 sources) Pain in buttock; Translations: [Myalgia, other site] Onset: 3 Resolved: 5 04-24-2023 Episodic Other ear and sense organ disorders (20 sources) Infection of external auditory canal; Translations: [Infective otitis externa, unspecified] Onset: 3 Resolved: 5 04-14-2023 Episodic Other ear and sense organ disorders (20 sources) Presbycusis; Translations: [Presbycusis, unspecified ear] Onset: 3 04-14-2023 Episodic Other female genital disorders (20 sources) Disorder of female perineum; Translations: [Other specified noninflammatory disorders of vulva and perineum] Onset: 3 Resolved: 5 04-14-2023 Episodic Other gastrointestinal disorders (20 sources) Irritable bowel syndrome with diarrhea; Translations: [Irritable bowel syndrome] Resolved: 9 Chronic Other gastrointestinal disorders (20 sources) H/O: gastrointestinal disease; Translations: [Personal history of other diseases of digestive system] Resolved: 9 Episodic Other gastrointestinal disorders (9 sources) History of irritable bowel syndrome; Translations: [Personal history of other diseases of digestive system] Resolved: 3 Episodic Other hematologic conditions (1 source) Other specified abnormalities of plasma proteins; Translations: [Other specified abnormalities of plasma proteins] Onset: 2 Episodic Other infections; including parasitic (20 sources) Personal history of other infectious and parasitic diseases; Translations: [History of COVID-19] Onset: 3 Resolved: 5 04-14-2023 Episodic Other injuries and conditions due to external causes (20 sources) H/O: injury; Translations: [Personal history of other musculoskeletal disorders] Resolved: 9 Episodic Other lower respiratory disease (20 sources) H/O: pneumonia; Translations: [Personal history of pneumonia (recurrent)] Resolved: 0 Episodic Other lower respiratory disease (20 sources) Dyspnea on exertion; Translations: [Shortness of breath] Onset: 3 10-25-2022 Episodic Comment on above: NO current signs of CHFHas chronic lung dz-continue inhaler use; Other lower respiratory disease (20 sources) Cough; Translations: [Cough] Onset: 9 Resolved: 5 04-14-2023 Episodic Other lower respiratory disease (9 sources) H/O: asthma; Translations: [Personal history of other diseases of respiratory system] Resolved: 3 Episodic Other lower respiratory disease (9 sources) H/O: bronchitis; Translations: [Personal history of other diseases of respiratory system] Resolved: 3 Episodic Other lower respiratory disease (12 sources) Dyspnea; Translations: [Shortness of breath] Onset: 9 08-15-2008 Episodic Other nervous system disorders (20 sources) Walking disability; Translations: [Difficulty in walking] Onset: 3 Resolved: 5 04-14-2023 Chronic Other nutritional; endocrine; and metabolic disorders (20 sources) Body mass index 30+ - obesity; Translations: [Body Mass Index 36.0-36.9, adult] Resolved: 3 Chronic Other nutritional; endocrine; and metabolic disorders (20 sources) Severe obesity; Translations: [Morbid obesity] Onset: 3 Resolved: 3 12-12-2022 Chronic Other nutritional; endocrine; and metabolic disorders (9 sources) H/O: metabolic disorder; Translations: [Personal history of other endocrine, metabolic, and immunity disorders] Resolved: 3 Episodic Other screening for suspected conditions (not mental disorders or infectious disease) (19 sources) Encounter for screening mammogram for malignant neoplasm of breast; Translations: [Blood chemistry abnormal] Onset: 9 Resolved: 9 Episodic Other skin disorders (20 sources) H/O: skin disorder; Translations: [Personal history of diseases of skin and subcutaneous tissue] Resolved: 0 Episodic Other skin disorders (20 sources) Swelling of lower leg; Translations: [Pain in joint, lower leg] Resolved: 9 Episodic Pleurisy; pneumothorax; pulmonary collapse (11 sources) Pleural effusion; Translations: [Pleural effusion, not elsewhere classified] Onset: 9 Episodic Residual codes; unclassified (20 sources) History of clinical finding in subject; Translations: [Personal history of other specified diseases] Resolved: 0 Episodic Residual codes; unclassified (20 sources) History of vaccination; Translations: [Personal history of other drug therapy] Resolved: 3 Episodic Residual codes; unclassified (20 sources) Postmenopausal state; Translations: [Asymptomatic postmenopausal status (age-related) (natural)] Resolved: 3 Episodic Residual codes; unclassified (9 sources) Past history of procedure; Translations: [Other specified personal history presenting hazards to health] Resolved: 3 Episodic Residual codes; unclassified (4 sources) Asymptomatic menopausal state; Translations: [Asymptomatic menopausal state] Onset: 3 Episodic Residual codes; unclassified (1 source) Family history of malignant neoplasm of breast; Translations: [Family history of malignant neoplasm of breast] Onset: 3 Episodic Skin and subcutaneous tissue infections (20 sources) Bacterial infection of skin; Translations: [Unspecified local infection of skin and subcutaneous tissue] Onset: 3 Resolved: 5 12-15-2022 Episodic Spondylosis; intervertebral disc disorders; other back problems (20 sources) Chronic low back pain; Translations: [Chronic low back pain, unspecified back pain laterality, unspecified whether sciatica present] Onset: 3 Resolved: 3 08-12-2022 Episodic Sprains and strains (20 sources) Low back strain; Translations: [Sprain of lumbar] Onset: 3 Resolved: 5 04-14-2023 Episodic Unclassified (20 sources) Patient encounter status; Translations: [Medicare annual wellness visit, subsequent] Unclassified (20 sources) History of clinical finding in subject; Translations: [History of cough] Resolved: 3 Unclassified (20 sources) Onset: 3 Resolved: 5 11-11-2022 Viral infection (20 sources) Other specified viral infection; Translations: [Disease caused by 2019-nCoV] Onset: 3 Resolved: 5 08-12-2022 Episodic Comment on above: Coronovirus 2019, PC R [03/10/2020] = DETECTED; NEGATED: Highlighted row has not occurred!Residual codes; unclassified (20 sources) Disease Episodic Results Test Name Value Interpretation Reference Range Facility HEMOGLOBIN A1c WITH eAGon eAG (mmol/L) 8.9 mmol/L Normal [facility] Comment on above: Order Comment: FASTI NG:NO FASTING: NO Performed By: #### 1 [id number] #### [facility] [address], [address] [place] [address] Information Security Specialist: Jasson Gonzalez MD HbA1c (Bld) [Mass fraction] 7.2 % High <5.7 [facility] Comment on above: Order Comment: FASTI NG:NO FASTING: NO Result Comment: For someone without known diabetes, a hemoglobin A1c value of 6.5% or greater indicates that they may have diabetes and this should be confirmed with a follow-up test. For someone with known diabetes, a value <7% indicates that their diabetes is well controlled and a value greater than or equal to 7% indicates suboptimal control. A1c targets should be individualized based on duration of diabetes, age, comorbid conditions, and other considerations. Currently, no consensus exists regarding use of hemoglobin A1c for diagnosis of diabetes for children. Performed By: #### 1 6802 #### [facility] [address], [address] [place] [address] Information Security Specialist: Jasson Gonzalez MD Magnesium [Mass/Vol] 160 mg/dL [facility] Comment on above: Order Comment: FASTI NG:NO FASTING: NO Performed By: #### 1 6802 #### [facility] [address], [address] [place] [address] Information Security Specialist: Jasson Gonzalez MD PROTHROMBIN TIME-INRon 01-21 INR Coag (PPP) [Relative time] 1.8 {INR} High [facility] Comment on above: Result Comment: Refe rence Range 0.9-1.1 Moderate-intensity Warfarin Therapy 2.0-3.0 Higher-intensity Warfarin Therapy 3.0-4.0 Performed By: #### 8 847 #### [facility] [address], [address] [place] [address] Information Security Specialist: Jasson Gonzalez MD PT Coag (PPP) [Time] 18.2 s High 9.0-11.5 [facility] Comment on above: Result Comment: For additional information, please refer to http://education.[employer]/faq/RNN956 (This link is being provided for informational/ educational purposes only.) Performed By: #### 8 207 #### [facility] [address], [address] [place] [address] Information Security Specialist: Jasson Gonzalez MD INR Coag (Bld) [Relative juanis e]on 10-28-2024 Interpretation and review of laboratory results Abnormal [facility] Work Phone: POC INR 3.3 Abnormal 0.9 - 1.1 [facility] Work Phone: [facility] Work Phone: CBC (H/H, RBC, INDICES, WBC, PLT)on 10-22-2024 Erythrocyte distribution width (RBC) [Ratio] 15.7 % High 11.0-15.0 [facility] Comment on above: Performed By: #### 7 600, 95977, 175, 89675 #### [facility] [place] [address] Information Security Specialist: Jasson Gonzalez MD Hematocrit (Bld) [Volume fraction] 42.5 % Normal 35.0-45.0 [facility] Comment on above: Performed By: #### 7 600, 55965, 175, 99902 #### [facility] [place] [address] Information Security Specialist: Jasson Gonzalez MD Hemoglobin (Bld) [Mass/Vol] 13.5 g/dL Normal 11.7-15.5 [facility] Comment on above: Performed By: #### 7 600, 87418, 175, 28088 #### [facility] [place] [address] Information Security Specialist: Jasson Gonzalez MD MCH (RBC) [Entitic mass] 26.4 pg Low 27.0-33.0 [facility] Comment on above: Performed By: #### 7 600, 11331, 175, 96873 #### [facility] [place] [address] Information Security Specialist: Jasson Gonzalez MD MCHC (RBC) [Mass/Vol] 31.8 g/dL Low 32.0-36.0 [facility] Comment on above: Result Comment: For adults, a slight decrease in the calculated MCHC value (in the range of 30 to 32 g/dL) is most likely not clinically significant; however, it should be interpreted with caution in correlation with other red cell parameters and the patient's clinical condition. Performed By: #### 7 600, 81448, 1758, 46624 #### [facility] of [address], [address] [place] [address] Information Security Specialist: Jasson Gonzalez MD MCV (RBC) [Entitic vol] 83.2 fL Normal 80.0-100.0 [facility] Comment on above: Performed By: #### 7 600, , 1758, 65585 #### [facility] of [address], [address] [place] [address] Information Security Specialist: Jasson Gonzalez MD Platelet mean volume (Bld) [Entitic vol] 9.0 fL Normal 7.5-12.5 [facility] Comment on above: Performed By: #### 7 600, , 1758, 15745 #### [facility] of [address], [address] [place] [address] Information Security Specialist: Jasson Gonzalez MD Platelets (Bld) [#/Vol] 352 10*3/uL Normal 140-400 [facility] Comment on above: Performed By: #### 7 600, , 1758, 70268 #### [facility] of [address], [address] [place] [address] Information Security Specialist: Jasson Gonzalez MD RBC (Bld) [#/Vol] 5.11 10*6/uL High 3.80-5.10 [facility] Comment on above: Performed By: #### 7 600, 99593, 1758, 44440 #### [facility] of [address], [address] [place] [address] Information Security Specialist: Jasson Gonzalez MD WBC (Bld) [#/Vol] 9.0 10*3/uL Normal 3.8-10.8 [facility] Comment on above: Performed By: #### 7 600, 05480, 175, 46219 #### [facility] of [address], [address] [place] [address] Information Security Specialist: Jasson Gonzalez MD COMPREHENSIVE METABOLIC PANE L W/ANION GAPon 10-22-2024 Albumin [Mass/Vol] 4.1 g/dL Normal 3.6-5.1 [facility] Comment on above: Performed By: #### 7 600, 94119, 175, 36792 #### [facility] of [address], [address] [place] [address] Information Security Specialist: Jasson Gonzalez MD ALP [Catalytic activity/Vol] 104 U/L Normal 37-153 [facility] Comment on above: Performed By: #### 7 600, 59260, 175, 27863 #### [facility] of [address], [address] [place] [address] Information Security Specialist: Jasson Gonzalez MD ALT [Catalytic activity/Vol] 13 U/L Normal 6-29 [facility] Comment on above: Performed By: #### 7 600, 05585, 1758, 76512 #### [facility] of [address], [address] [place] [address] Information Security Specialist: Jasson Gonzalez MD AST [Catalytic activity/Vol] 17 U/L Normal 10-35 [facility] Comment on above: Performed By: #### 7 600, 48031, 1758, 61038 #### [facility] of [place] [address] Information Security Specialist: Jasson Gonzalez MD Bilirubin [Mass/Vol] 0.4 mg/dL Normal 0.2-1.2 [facility] Comment on above: Performed By: #### 7 600, 46327, 175, 73932 #### [facility] of [address], [address] [place] [address] Information Security Specialist: Jasson Gonzalez MD Calcium [Mass/Vol] 9.1 mg/dL Normal 8.6-10.4 [facility] Comment on above: Performed By: #### 7 600, 74495, 175, 18462 #### [facility] of [address], [address] [place] [address] Information Security Specialist: Jasson Gonzalez MD Chloride [Moles/Vol] 99 mmol/L Normal 98-110 [facility] Comment on above: Performed By: #### 7 600, 77244, 175, 98154 #### [facility] [address], [address] [place] [address] Information Security Specialist: Jasson Gonzalez MD CO2 [Moles/Vol] 28 mmol/L Normal 20-32 [facility] Comment on above: Performed By: #### 7 600, 82468, 175, 92198 #### [facility] [address], [address] [place] [address] Information Security Specialist: Jasson Gonzalez MD Creatinine [Mass/Vol] 0.93 mg/dL Normal 0.60-1.00 [facility] Comment on above: Performed By: #### 7 600, 31991, 1758, 18058 #### [facility] [address], [address] [place] [address] Information Security Specialist: Jasson Gonzalez MD ELECTROLYTE BALANCE 11 mmol/L (calc) Normal 7-17 [facility] Comment on above: Performed By: #### 7 600, 75422, 1758, 15856 #### [facility] [place] [address] Information Security Specialist: Jasson Gonzalez MD GFR/1.73 sq M.predicted among non-blacks MDRD (S/P/Bld) [Vol rate/Area] 64 mL/min/{1.73_m2} Normal > OR = 60 [facility] Comment on above: Performed By: #### 7 600, 69542, 175, 23613 #### [facility] [place] [address] Information Security Specialist: Jasson Gonzalez MD Glucose [Mass/Vol] 134 mg/dL Normal 65-139 [facility] Comment on above: Result Comment: Non-fasting reference interval For someone without known diabetes, a glucose value >125 mg/dL indicates that they may have diabetes and this should be confirmed with a follow-up test. Performed By: #### 7 600, 05284, 175, 85202 #### [facility] [place] [address] Information Security Specialist: Jasson Gonzalez MD Potassium [Moles/Vol] 4.4 mmol/L Normal 3.5-5.3 [facility] Comment on above: Performed By: #### 7 600, 03413, 175, 40828 #### [facility] [place] [address] Information Security Specialist: Jasson Gonzalez MD Protein [Mass/Vol] 7.5 g/dL Normal 6.1-8.1 [facility] Comment on above: Performed By: #### 7 600, 53136, 1758, 42600 #### [facility] [place] [address] Information Security Specialist: Jasson Gonzalez MD Sodium [Moles/Vol] 138 mmol/L Normal 135-146 [facility] Comment on above: Performed By: #### 7 600, 05974, 1758, 94196 #### [facility] [place] [address] Information Security Specialist: Jasson Gonzalez MD Urea nitrogen [Mass/Vol] 15 mg/dL Normal 7-25 [facility] Comment on above: Performed By: #### 7 600, 14661, 175, 43795 #### [facility] of [place] [address] Information Security Specialist: Jasson Gonzalez MD HEMOGLOBIN A1c WITH eAGon eAG (mmol/L) 9.2 mmol/L Normal [facility] Comment on above: Performed By: #### 7 600, 29369, 175, 41642 #### [facility] of [place] [address] Information Security Specialist: Jasson Gonzalez MD HbA1c (Bld) [Mass fraction] 7.4 % High <5.7 [facility] Comment on above: Result Comment: For someone without known diabetes, a hemoglobin A1c value of 6.5% or greater indicates that they may have diabetes and this should be confirmed with a follow-up test. For someone with known diabetes, a value <7% indicates that their diabetes is well controlled and a value greater than or equal to 7% indicates suboptimal control. A1c targets should be individualized based on duration of diabetes, age, comorbid conditions, and other considerations. Currently, no consensus exists regarding use of hemoglobin A1c for diagnosis of diabetes for children. Performed By: #### 7 600, 34273, 175, 53078 #### [facility] [address], [address] [place] [address] Information Security Specialist: Jasson Gonzalez MD Magnesium [Mass/Vol] 166 mg/dL Normal [facility] Comment on above: Performed By: #### 7 600, 15822, 175, 41534 #### [facility] [address], [address] [place] [address] Information Security Specialist: Jasson Gonzalez MD LIPID PANEL, [facility] 10-06 Cholesterol [Mass/Vol] 143 mg/dL Normal <200 [facility] Comment on above: Order Comment: FASTI NG:NO FASTING: NO Performed By: #### 7 600, 00062, 175, 94602 #### [facility] [place] [address] Information Security Specialist: Jasson Gonzalez MD Cholesterol in HDL [Mass/Vol] 66 mg/dL Normal > OR = 50 [facility] Comment on above: Order Comment: FASTI NG:NO FASTING: NO Performed By: #### 7 600, 75067, 175, 17834 #### [facility] [address], [address] [place] [address] Information Security Specialist: Jasson Gonzalez MD Cholesterol in LDL [Mass/Vol] 54 mg/dL Normal [facility] Comment on above: Order Comment: FASTI NG:NO FASTING: NO Result Comment: Refe rence range: <100 Desirable range <100 mg/dL for primary prevention; <70 mg/dL for patients with CHD or diabetic patients with > or = 2 CHD risk factors. LDL-C is now calculated using the Mendoza-Hartley calculation, which is a validated novel method providing better accuracy than the Friedewald equation in the estimation of LDL-C. Mendoza SS et al. OSCAR. 2013;310(19): 1367-5760 (http://education.TrackR.[employer]/faq/FRK648) Performed By: #### 7 600, 22345, 1759, 47987 #### [facility] [address], [address] [place] [address] Information Security Specialist: Jasson Gonzalez MD Cholesterol.total/Ch olesterol in HDL [Mass ratio] 2.2 {ratio} Normal <5.0 [facility] Comment on above: Order Comment: FASTI NG:NO FASTING: NO Performed By: #### 7 600, 06553, 1759, 79205 #### [facility] [address], [address] [place] [address] Information Security Specialist: Jasson Gonzalez MD NON HDL CHOLESTEROL 77 mg/dL (calc) Normal <130 [facility] Comment on above: Order Comment: FASTI NG:NO FASTING: NO Result Comment: For patients with diabetes plus 1 major ASCVD risk factor, treating to a non-HDL-C goal of <100 mg/dL (LDL-C of <70 mg/dL) is considered a therapeutic option. Performed By: #### 7 600, 84154, 1759, 01735 #### [facility] [address], [address] [place] [address] Information Security Specialist: Jasson Gonzalez MD Triglyceride [Mass/Vol] 149 mg/dL Normal <150 [facility] Comment on above: Order Comment: FASTI NG:NO FASTING: NO Performed By: #### 7 600, 44115, 1759, 88331 #### [facility] [place] [address] Information Security Specialist: Jasson Gonzalez MD [facility] Progress Notes-Mary pablo 10-08-2024 [facility] Progress Notes-PAU Porter :1950 Registration Date:10/08/2024 Chief Complaint/Reason for Visit FOLLOW UP APPOINTMENT - MGUS / IRON DEFICIENCY ANEMIA Treatment History 74-year-old, 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 Last seen by myself in August 2023. Below is her following history: In 2012, she was following with her family doctor, and MGUS was found in her blood. She was referred to Oncology. She has been followed at [facility], and wanted to switch due to seeing a different Provider every visit (seen previously by Dr. Quijano, Dr. Iraheta, Dr. Jacobo and Dr. Gonzales). I can only see history from 2017, in which she has not had a monoclonal protein. Documentation states she had a low level M-protein, then since September 2015, there has been no detectable M-protein. She was having labs every 6-months labs, until recently went to yearly. Urine Bence Sheffield negative 3-4 years ago; also found to have iron deficiency anemia she was put on oral iron pills. She did not tolerate these well, with increased GI upset. She has not been anemic since then. She underwent GI work-up. Due for next one at age 70. August 2020: She was found to be iron deficient without anemia, and she wanted to try the IV iron supplementation. After her first infusion, she had a CHF exacerbation, so patient did not want to proceed with any more. - Her recheck iron studies were about the same, 10-weeks later, but she did have an elevated RBC and HCT. Will hold off on anymore iron at this time. Current Treatment Plan - Monitor MGUS - Monitor TALI. - Annual follow up with labs 1 week prior History of Present Illness Pau presents today, unaccompanied, for routine evaluation of iron deficiency and MGUS. Recall, patient has one dose of IV iron then had a CHF exacerbation, and did not any further iron. IV iron is most likely not what prompted her CHF but she does not wish to continue. Overall, she feels well. She is not anemic but her iron studies show low iron today. Iron is 39, saturation is 8.6. Admits to not taking oral iron because it upsets her stomach. She does not plan on restarting due to no symptoms at this time. Since her last visit, she was started on Metformin for increasing A1C. She also had right breast lumpectomy, which was benign. She denies any fatigue, SOB, weakness, dizziness. She is on Coumadin for A.fib (due to dropped Medicare D coverage), and denies any abnormal bleeding or bruising. No blood in stool, and/or dark, tarry stools. She has no other acute complaints. Review of Systems Negative otherwise indicated in HPI. Physical Exam General: Alert and oriented x3. Appropriate mood and behavior. No current pain. Lungs: CTAB, normal breath sounds with good chest expansion, thorax symmetric. Cardiovascular: Regular rate and rhythm, no murmurs, normal S1 and S2. Gastrointestinal: Soft, non-distended, non-tender, no organomegaly. Extremities: No edema. Skin: Warm, dry, intact. No lesions or rashes. No jaundice. No petechiae. Vitals & Measurements Peripheral Pulse Rate: 63 bpm (10/08/24 10:45:00) Respiratory Rate: 16 br/min (10/08/24 10:45:00) Systolic Blood Pressure: 115 mmHg (10/08/24 10:45:00) Diastolic Blood Pressure: 53 mmHg Low (10/08/24 10:45:00) Height/Length Measured: 152.4 cm (10/08/24 10:45:00) Weight Measured: 87 kg (10/08/24 10:45:00) Body Mass Index Measured: 37.46 kg/m2 (10/08/24 10:45:00) Screening & Performance Depression Screening Scores Initial Depression Screen Score: 0 (10/08/24 10:45:00) Psychosocial Distress Management No Psychosocial Distress Management data available for this encounter. Fall Risk Assessment Is the patient ambulatory (mobile): Yes (10/08/24 10:45:00) Have you had a fall within the past: No (10/08/24 10:45:00) Have you had 2 or more falls in the past: No (10/08/24 10:45:00) ECOG Description 0 Care Team Attending Physician - FELISHA CATHERINE CNP Primary Care Physician - RONIT DOAN Staging Information No information available Lab Results Last Month Chemistry BUN 18 mg/dL 10/01/24 Na 134 mmol/L 10/01/24 K 4.0 mmol/L 10/01/24 Chloride 98 mmol/L 10/01/24 CO2, venous 27.0 mmol/L 10/01/24 Creatinine 1.0 mg/dL 10/01/24 Total Protein 7.9 g/dL 10/01/24 Calcium 9.7 mg/dL 10/01/24 Bilirubin, Total 0.30 mg/dL 10/01/24 Alk Phos 118 unit/L 10/01/24 LDH 226 unit/L 10/01/24 GOT 20 unit/L 10/01/24 GPT 13 unit/L 10/01/24 BUN/Creat Ratio 18.0 10/01/24 Calculated Osmolality 271 mOsm/kg 10/01/24 Globulin 4.2 g/dL 10/01/24 A/G Ratio 0.9 10/01/24 IRON 39 ug/dl 10/01/24 TIBC 453 ug/ml 10/01/24 Saturation 8.6 % 10/01/24 FERRITIN 16 ng/mL 10/01/24 FOLATE 12.8 ng/mL 10/01/24 Vitamin B12 376 pg/mL 10/01/24 ALB 3.7 g/dL 10/01/24 IGA 486 mg/dL 10/04/24 IGG 1087 mg/dL 10/04/24 IGM 128 mg/dL 10/04 (more content not included)... Normal [facility] GAYLE Quant with FLCon 025 EER Monoclonal Protein and FLC, Serum See Note Normal [facility] Comment on above: Order Comment: 1 digna quinones prior to FUV Ordered on Fin# [id number] Result Comment: Auth orized individuals can access the [employer] Enhanced Report with an [employer] Connect account using the following link. Your local lab can assist you in obtaining the patient report if you don't have a Connect account. [email or web address] Performed By: [facility] [address] [place] [address] Glaze Supervisor: Emanuel Haney MD, PhD CLIA Number: [id number] Performed By: #### 7 [id number] ####[facility] Dbutmhca62537 [place] [address] Medical Director: Mendoza Whitfield MD IGA 486 mg/dL High 68-408 [facility] Comment on above: Order Comment: 1 wee k prior to FUV Ordered on [facility]# [id number] Performed By: #### 7 [id number] ####[facility] Igfylrrd33579 [place] [address] Medical Director: Mendoza Whitfield MD IGG 1087 mg/dL Normal 768-1632 [facility] Comment on above: Order Comment: 1 wee k prior to FUV Ordered on [facility]# [id number] Performed By: #### 7 [id number] ####[facility] [address]uzhhyew[address]58 [place] [address] Medical Director: Mendoza Whitfield MD IGM 128 mg/dL Normal 35-263 [facility] Comment on above: Order Comment: 1 wee k prior to FUV Ordered on [facility]# [id number] Performed By: #### 7 [id number] ####[facility] Bjrbbuho86542 [place] [address] Medical Director: Mendoza Whitfield MD Immunofixation GAYLE Done Normal [facility] Comment on above: Order Comment: 1 wee k prior to FUV Ordered on [facility]# [id number] Performed By: #### 7 [id number] ####[facility] Xpcyjmym97205 [place] [address] Medical Director: Mendoza Whitfield MD [place] Qnt Free Light Chains 34.22 mg/L High 3.30-19.40 [facility] Comment on above: Order Comment: 1 wee k prior to FUV Ordered on [facility]# [id number] Result Comment: INTE RPRETIVE INFORMATION: [place] Qnt Free Light Chains Undetected antigen excess is a rare event but cannot be excluded. Free light chain results should always be interpreted in conjunction with other clinical and laboratory findings. Performed By: #### 7 [id number] ####[facility] Vsiigmfu20502 [place] [address] Medical Director: Mendoza Whitfield MD [place]/Lambda Free Light Chain Ratio 1.48 Normal 0.26-1.65 [facility] Comment on above: Order Comment: 1 wee k prior to FUV Ordered on [facility]# [id number] Performed By: #### 7 [id number] ####[facility] Ywimbccd24830 [place] [address] Medical Director: Mendoza Whitfield MD Lambda Qnt Free Light Chains 23.05 mg/L Normal 5.71-26.30 [facility] Comment on above: Order Comment: 1 wee k prior to FUV Ordered on [facility]# [id number] Result Comment: INTE RPRETIVE INFORMATION: Lambda Qnt Free Light Chains Undetected antigen excess is a rare event but cannot be excluded. Free light chain results should always be interpreted in conjunction with other clinical and laboratory findings. Performed By: #### 7 [id number] ####[facility] [address] [place] [address] Medical Director: Mendoza Whitfield MD Monoclonal Protein Not Applicable Normal <=0.00 So [facility] Comment on above: Order Comment: 1 wee k prior to FUV Ordered on [facility]# [id number] Performed By: #### 7 [id number] ####[facility] Bitqjboi19833 [place], [place] [id number]) [phone] Director: Mendoza Whitfield MD SPE Albumin 3.88 g/dL Normal 3.75-5.01 [facility] Comment on above: Order Comment: 1 wee k prior to FUV Ordered on [facility]# [id number] Performed By: #### 7 [id number] ####[facility] [address] [place] [address] Medical Director: Mendoza Whitfield MD SPE Alpha 1 Globulin 0.30 g/dL Normal 0.19-0.46 [facility] Comment on above: Order Comment: 1 wee k prior to FUV Ordered on [facility]# [id number] Performed By: #### 7 [id number] ####[facility] Mxhhmzhg24399 [place] [address] Medical Director: Mendoza Whitfield MD SPE Alpha 2 Globulin 1.05 g/dL Normal 0.48-1.05 [facility] Comment on above: Order Comment: 1 wee k prior to FUV Ordered on [facility]# [id number] Performed By: #### 7 [id number] ####[facility] Kiyhdwcd39246 [place], [place] [id number]) [phone] Director: Mendoza Whitfield MD SPE Beta Globulin 1.22 g/dL High 0.48-1.10 [facility] Comment on above: Order Comment: 1 wee k prior to FUV Ordered on [facility]# [id number] Performed By: #### 7 [id number] ####[facility] Nmdgcerb24661 [place] [address] Medical Director: Mendoza Whitfield MD SPE Gamma Globulin 1.16 g/dL Normal 0.62-1.51 [facility] Comment on above: Order Comment: 1 wee k prior to FUV Ordered on [facility]# [id number] Performed By: #### 7 [id number] ####[facility] Xvcfygup64669 [place] [address] Medical Director: Mendoza Whitfield MD SPE Total Protein 7.6 g/dL Normal 6.3-8.2 [facility] Comment on above: Order Comment: 1 wee k prior to FUV Ordered on [facility]# [id number] Performed By: #### 7 [id number] ####[facility] [address]ukat52602 [place] [address] Medical Director: Mendoza Whitfield MD SPEP/GAYLE Interp See Note Normal [facility] Comment on above: Order Comment: 1 wee k prior to FUV Ordered on [facility]# [id number] Result Comment: Seru m protein electrophoresis is negative for monoclonal protein. GAYLE gel shows a normal pattern; no monoclonal proteins seen. Performed By: #### 7 [id number] ####[facility] [address] [place], [place] [address] Medical Director: Mendoza Whitfield MD B2M Son 10-02-2024 B2MS 3.0 mg/L Normal <=3.0 [facility] Comment on above: Order Comment: 1 wee k prior to FUV Ordered on [facility]# [id number] Result Comment: Perf ormed By: [facility] [address] [place] [address] Glaze Supervisor: Emanuel Haney MD, PhD CLIA Number: [id number] Performed By: #### 6 [id number] #### [facility] [address] [place] [address] Information Security Specialist: Mendoza Whitfield MD AUTO DIFFon 10-01-2024 Baso Count 0.06 x1000 Normal 0.00-0.20 [facility] Comment on above: Order Comment: 1 wee k prior to FUV Performed By: #### 1 35523, 409475, 2605577, 741858, 739106, 902421, 365256 #### [facility] [address] [place] [address] Information Security Specialist: Mendoza Whitfield MD Basos % 0.6 % Normal [facility] Comment on above: Order Comment: 1 wee k prior to FUV Performed By: #### 1 64428, 090460, 2732832, 824781, 214600, 553623, 356725 #### [facility] [address] [place], [place] [address] Information Security Specialist: Mendoza Whitfield MD Eos Count 0.12 x1000 Normal 0.00-0.50 [facility] Comment on above: Order Comment: 1 wee k prior to FUV Performed By: #### 1 75702, 596996, 4617441, 885033, 378010, 587042, 534800 #### [facility] [address] [place] [address] Information Security Specialist: Mendoza Whitfield MD Eosinophils/100 WBC (Bld) 1.2 % Normal [facility] Comment on above: Order Comment: 1 wee k prior to FUV Performed By: #### 1 76237, 503833, 2188208, 576255, 315419, 746978, 202963 #### [facility] [address] [place] [address] Information Security Specialist: Mendoza Whitfield MD Lymph Count 2.34 x1000 Normal 1.20-4.80 [facility] Comment on above: Order Comment: 1 wee k prior to FUV Performed By: #### 1 57077, 793668, 3989232, 199941, 000432, 364723, 280911 #### [facility] [address] [place], [place] [address] Information Security Specialist: Mendoza Whitfield MD Lymphocytes/100 WBC (Bld) 23.8 % Normal [facility] Comment on above: Order Comment: 1 wee k prior to FUV Performed By: #### 1 06851, 947865, 7409308, 045954, 782765, 582994, 211853 #### [facility] [address] [place] [address] Information Security Specialist: Mendoza Whitfield MD [place] Count 1.07 x1000 High 0.10-1.00 [facility] Comment on above: Order Comment: 1 wee k prior to FUV Performed By: #### 1 98563, 660400, 2291665, 158123, 204261, 477425, 513545 #### [facility] [address] [place] [address] Information Security Specialist: Mendoza Whitfield MD Monocytes/100 WBC (Bld) 10.9 % Normal [facility] Comment on above: Order Comment: 1 wee k prior to FUV Performed By: #### 1 42964, 475506, 4563656, 855455, 386629, 110126, 638575 #### [facility] [address] [place] [address] Information Security Specialist: Mendoza Whitfield MD Neutrophil Count (ANC) 6.25 x1000 Normal 1.40-8.80 [facility] Comment on above: Order Comment: 1 wee k prior to FUV Performed By: #### 1 58118, 500844, 1048905, 098363, 670097, 458890, 947329 #### [facility] [address] [place] [address] Information Security Specialist: Mendoza Whitfield MD Neutrophils/100 WBC (Bld) 63.5 % Normal [facility] Comment on above: Order Comment: 1 wee k prior to FUV Performed By: #### 1 47182, 253143, 0349963, 967438, 103033, 063325, 277559 #### [facility] [address] [place] [address] Information Security Specialist: Mendoza Whitfield MD Red Blood Cell Morphology See Notes Abnormal [facility] Comment on above: Order Comment: 1 wee k prior to FUV Result Comment: Anis ocytosis 1+ Performed By: #### 1 36031, 702401, 1670010, 507474, 222978, 057122, 153946 #### [facility] [address] [place] [address] Information Security Specialist: Mendoza Whitfield MD B12 FOLATEon 10-01-2024 Cobalamin (Vitamin B12) [Mass/Vol] 376 pg/mL Normal 211-911 [facility] Comment on above: Order Comment: 1 wee k prior to FUV Ordered on [facility]# [id number] Performed By: #### 1 84031, 386764, 1675317, 299007, 678102, 619890, 491850 ####[facility] Z[address]jybx75714 [place] [address] Medical Director: Mendoza Whitfield MD FOLATE 12.8 ng/mL Normal 5.4-17.5 [facility] Comment on above: Order Comment: 1 wee k prior to FUV Ordered on Fin# [id number] Result Comment: Meth otrexate and leucovorin interfere with folate measurement because these drugs cross-react with folate binding proteins. Performed By: #### 1 32093, 918639, 4695590, 203993, 538180, 884395, 129658 ####[facility] [address]rbmsjp77717 [place] [address] Medical Director: Mendoza Whitfield MD COMPMETAon 10-01-2024 Albumin [Mass/Vol] 3.7 g/dL Normal 3.4-5.0 [facility] Comment on above: Order Comment: 1 wee k prior to FUV Ordered on Fin# [id number] Performed By: #### 1 06193, 539154, 7494805, 680736, 262271, 128423, 695229 #### [facility] [address] [place] [address] Information Security Specialist: Mendoza Whitfield MD Albumin/Globulin [Mass ratio] 0.9 {ratio} Normal [facility] Comment on above: Order Comment: 1 wee k prior to FUV Ordered on Fin# [id number] Performed By: #### 1 52521, 988013, 7898440, 656381, 151795, 033624, 935921 #### [facility] [address] [place] [address] Information Security Specialist: Mendoza Whitfield MD Alk Phos 118 unit/L High 45-117 [facility] Comment on above: Order Comment: 1 wee k prior to FUV Ordered on Fin# [id number] Performed By: #### 1 88845, 468146, 4233760, 703237, 713970, 678159, 493022 #### [facility] [address] [place] [address] Information Security Specialist: Mendoza Whitfield MD Bilirubin [Mass/Vol] 0.30 mg/dL Normal 0.30-1.20 [facility] Comment on above: Order Comment: 1 wee k prior to FUV Ordered on Fin# [id number] Result Comment: Use of this assay is not recommended for patients undergoing treatment with eltrombopag due to the potential for falsely elevated results. Performed By: #### 1 96461, 632823, 3690192, 631978, 495772, 339049, 923772 #### [facility] [address] [place] [address] Information Security Specialist: Mendoza Whitfield MD Calcium [Mass/Vol] 9.7 mg/dL Normal 8.7-10.4 [facility] Comment on above: Order Comment: 1 wee k prior to FUV Ordered on Fin# [id number] Performed By: #### 1 50330, 451372, 5950350, 181903, 546488, 765069, 073549 #### [facility] [address] [place] [address] Information Security Specialist: Mendoza Whitfield MD Chloride [Moles/Vol] 98 mmol/L Normal 98-107 [facility] Comment on above: Order Comment: 1 wee k prior to FUV Ordered on Fin# [id number] Performed By: #### 1 49823, 174927, 8341053, 253613, 023022, 925988, 894045 #### [facility] [address] [place] [address] Information Security Specialist: Mendzoa Whitfield MD CO2 [Moles/Vol] 27.0 mmol/L Normal 20.0-31.0 [facility] Comment on above: Order Comment: 1 wee k prior to FUV Ordered on Fin# [id number] Performed By: #### 1 55192, 611266, 1825636, 040606, 525246, 704551, 284881 #### [facility] [address] [place] [address] Information Security Specialist: Mendoza Whitfield MD Creatinine [Mass/Vol] 1.0 mg/dL High 0.5-0.8 [facility] Comment on above: Order Comment: 1 wee k prior to FUV Ordered on Fin# [id number] Performed By: #### 1 80879, 750071, 0482564, 860758, 308989, 447058, 617407 #### [facility] [address] [place] [address] Information Security Specialist: Mendoza Whitfield MD GFR AA >60 Normal [facility] Comment on above: Order Comment: 1 wee k prior to FUV Ordered on Fin# [id number] Result Comment: Afri can [place]riot GFR Calc Medical judgement is necessary to interpret GFR. The calculated GFR may not accurately reflect renal status in patients >70 years, women, acutely ill hospitalized patients and patients with acute renal failure or known renal disease. The MDRD GFR formula is valid only for adults greater than 18 years of age. Note: Creatinine clearance (not GFR) should be used for drug dosing. Calculated result performed using the MDRD GFR equation Performed By: #### 1 04613, 248021, 8256885, 750237, 057739, 501940, 851429 #### [facility] [address] [place] [address] Information Security Specialist: Mendoza Whitfield MD Globulin (S) [Mass/Vol] 4.2 g/dL Normal [facility] Comment on above: Order Comment: 1 wee k prior to FUV Ordered on [facility]# [id number] Performed By: #### 1 80019, 219954, 1061239, 428974, 144918, 795145, 681533 #### [facility] [address] [place] [address] Information Security Specialist: Mendoza Whitfield MD Glomerular Filtration Rate 54 mL/min/1.73m? Normal [facility] Comment on above: Order Comment: 1 wee k prior to FUV Ordered on Fin# [id number] Result Comment: Non- GFR Calc Medical judgement is necessary to interpret GFR. The calculated GFR may not accurately reflect renal status in patients >70 years, women, acutely ill hospitalized patients and patients with acute renal failure or known renal disease. The MDRD GFR formula is valid only for adults greater than 18 years of age. Note: Creatinine clearance (not GFR) should be used for drug dosing. Calculated result performed using the MDRD GFR equation Performed By: #### 1 56335, 504434, 1922159, 417950, 345163, 340422, 650580 #### [facility] [id number] [place] [address] Information Security Specialist: Mendoza Whitfield MD Glucose [Mass/Vol] 115 mg/dL High 74-106 [facility] Comment on above: Order Comment: 1 wee k prior to FUV Ordered on Fin# [id number] Performed By: #### 1 83308, 225387, 8514273, 812375, 639964, 083466, 180429 #### [facility] [address] [place] [address] Information Security Specialist: Mendoza Whitfield MD GOT 20 unit/L Normal 15-37 [facility] Comment on above: Order Comment: 1 wee k prior to FUV Ordered on Fin# [id number] Performed By: #### 1 56754, 990214, 2048665, 449877, 424014, 315399, 268357 #### [facility] [address] [place] [address] Information Security Specialist: Mendoza Whitfield MD GPT 13 unit/L Normal 10-49 [facility] Comment on above: Order Comment: 1 wee k prior to FUV Ordered on Fin# [id number] Performed By: #### 1 10422, 493360, 5452120, 605161, 428366, 905306, 970452 #### [facility] [address] [place] [address] [id number] Information Security Specialist: Mendoza Whitfield MD Osmolality [Osmolality] 271 mosm/kg Low 275-295 [facility] Comment on above: Order Comment: 1 wee k prior to FUV Ordered on Fin# [id number] Performed By: #### 1 98369, 688443, 9578972, 571392, 506210, 174210, 980406 #### [facility] [address] [place] [address] [phone] Information Security Specialist: Mendoza Whitfield MD Potassium [Moles/Vol] 4.0 mmol/L Normal 3.5-5.1 [facility] Comment on above: Order Comment: 1 wee k prior to FUV Ordered on Fin# [id number] Performed By: #### 1 15398, 006768, 7104823, 894215, 548762, 752196, 812962 #### [facility] [address] [place], [place] [address] Information Security Specialist: Mendoza Whitfield MD Protein [Mass/Vol] 7.9 g/dL Normal 5.7-8.2 [facility] Comment on above: Order Comment: 1 wee k prior to FUV Ordered on Fin# [id number] Result Comment: Tota l Protein results may be increased in patients receiving dextran as a blood volume any commodity buyer Performed By: #### 1 86912, 744556, 2294796, 177247, 085245, 329539, 289307 #### [facility] [address] [place] [address] Information Security Specialist: Mendoza Whitfield MD Sodium [Moles/Vol] 134 mmol/L Low 135-145 [facility] Comment on above: Order Comment: 1 wee k prior to FUV Ordered on Fin# [id number] Performed By: #### 1 81883, 288347, 2983634, 213314, 880422, 372396, 994587 #### [facility] [address] [place] [address] [place] [address] Information Security Specialist: Mendoza Whitfield MD Urea nitrogen [Mass/Vol] 18 mg/dL Normal 9-23 [facility] Comment on above: Order Comment: 1 digna quinones prior to FUV Ordered on Fin# [id number] Result Comment: - Ve nipuncture should occur prior to N-Acetyl Cysteine (NAC) or Metamizole (Sulpyrine) administration due to the potential for falsely depressed results. - Blood samples from some patients with monoclonal gammopathies may produce falsely elevated results Performed By: #### 1 35036, 825958, 5086525, 531511, 900188, 145210, 274645 #### [facility] [id number] [place] [address] Information Security Specialist: Mendoza Whitfield MD Urea nitrogen/Creatinine [Mass ratio] 18.0 mg/mg Normal [facility] Comment on above: Order Comment: 1 digna quinones prior to FUV Ordered on Fin# [id number] Performed By: #### 1 61357, 593096, 0906126, 243564, 115384, 631186, 309991 #### [facility] [address] [place] [address] Information Security Specialist: Mendoza Whitfield MD FERRITINon 10-01-2024 Ferritin [Mass/Vol] 16 ng/mL Normal 10-291 [facility] Comment on above: Order Comment: 1 digna quinones prior to FUV Ordered on Fin# [id number] Result Comment: Seru m ferritin values are elevated in the presence of the following conditions and do not reflect actual body iron stores: - Inflammation - Significant tissue destruction - Liver disease - Malignancies such as acute leukemia and Hodgkin?s disease - Therapy with iron supplements Performed By: #### 1 63269, 741026, 8046508, 072755, 383354, 286337, 950069 ####[facility] [address] [place] [address] Medical Director: Mendoza Whitfield MD HEMOon 10-01-2024 DIFF? No Normal [facility] Comment on above: Order Comment: 1 wee k prior to FUV Performed By: #### 1 74896, 272053, 3906612, 745374, 529962, 139763, 131969 #### [facility] [address] [place] [address] [phone] Information Security Specialist: Mendoza Whitfield MD Erythrocyte distribution width (RBC) [Ratio] 16.9 % High 11.5-14.5 [facility] Comment on above: Order Comment: 1 wee k prior to FUV Performed By: #### 1 42067, 994551, 8022764, 095816, 984683, 290720, 910219 #### [facility] [address] [place] [address] [phone] Information Security Specialist: Mendoza Whitfield MD Hematocrit (Bld) [Volume fraction] 43.1 % Normal 36.0-46.0 [facility] Comment on above: Order Comment: 1 wee k prior to FUV Performed By: #### 1 53305, 437981, 1077794, 918000, 312010, 295061, 201012 #### [facility] [address] [place] [address] [id number] Information Security Specialist: Mendoza Whitfield MD Hemoglobin (Bld) [Mass/Vol] 14.1 g/dL Normal 12.0-16.0 [facility] Comment on above: Order Comment: 1 wee k prior to FUV Performed By: #### 1 07643, 533325, 0215726, 505344, 741992, 848255, 675532 #### [facility] [facility] [address] [place] [address] [id number] Information Security Specialist: Mendoza Whitfield MD Instr WBC 9.8 Normal [facility] Comment on above: Order Comment: 1 wee k prior to FUV Performed By: #### 1 06985, 770312, 5883364, 081203, 439567, 977003, 939114 #### [facility] [address] [place] [address] 19059 Information Security Specialist: Mendoza Whitfield MD MCH (RBC) [Entitic mass] 26.7 pg Low 27.0-34.0 [facility] Comment on above: Order Comment: 1 wee k prior to FUV Performed By: #### 1 45891, 236123, 7242186, 533230, 458089, 662270, 635435 #### [facility] [address] [place] [address] 59511 Information Security Specialist: Mendoza Whitfield MD MCHC (RBC) [Mass/Vol] 32.7 g/dL Normal 32.0-37.0 [facility] Comment on above: Order Comment: 1 wee k prior to FUV Performed By: #### 1 48372, 423638, 4254282, 323947, 131651, 580321, 467080 #### [facility] [address] [place] [address] 84327 Information Security Specialist: Mendoza Whitfield MD MCV (RBC) [Entitic vol] 81.6 fL Normal 80.0-100.0 [facility] Comment on above: Order Comment: 1 wee k prior to FUV Performed By: #### 1 16058, 561855, 1355793, 969701, 448086, 439297, 378922 #### [facility] [address] [place], [place] [address] Information Security Specialist: Mendoza Whitfield MD Nucleated RBC 0 /100WBC Normal [facility] Comment on above: Order Comment: 1 wee k prior to FUV Performed By: #### 1 85761, 755237, 2198151, 100753, 572212, 240992, 957279 #### [facility] [address] [place] [address] [id number] Information Security Specialist: Mendoza Whitfield MD Platelet 346 x10 Normal 150-450 [facility] Comment on above: Order Comment: 1 wee k prior to FUV Performed By: #### 1 81264, 631333, 0791941, 869872, 542543, 325990, 081541 #### [facility] [address] [place] [address] 44130 Information Security Specialist: Mendoza Whitfield MD Platelet mean volume (Bld) [Entitic vol] 6.5 fL Low 7.4-10.4 [facility] Comment on above: Order Comment: 1 wee k prior to FUV Performed By: #### 1 70597, 003506, 7231752, 880514, 306329, 813755, 027394 #### [facility] [address] [place] [address] 44130 Information Security Specialist: Mendoza Whitfield MD RBC 5.28 x10 Normal 4.20-5.40 [facility] Comment on above: Order Comment: 1 wee k prior to FUV Result Comment: Note : RBC morphology is normal unless otherwise stated. Evaluation performed only if differential is requested. Performed By: #### 1 00481, 739697, 3811145, 108351, 074708, 226548, 387226 #### [facility] [address] [place] [address] 44130 Information Security Specialist: Mendoza Whitfield MD WBC 9.8 x10 Normal 4.5-11.0 [facility] Comment on above: Order Comment: 1 wee k prior to FUV Performed By: #### 1 46989, 400206, 5783820, 156046, 790984, 159108, 467985 #### [facility] [address] [place] [address] 44130 Information Security Specialist: Mendoza Whitfield MD IRON GROUPon 10-01-2024 Iron [Mass/Vol] 39 ug/dL Low 50-170 [facility] Comment on above: Order Comment: 1 wee k prior to FUV Ordered on Fin# [id number] Result Comment: Resu lts may be inaccurate if performed within 14 days of IV iron dextran administration. Performed By: #### 1 84708, 937552, 7895592, 478805, 722109, 360310, 652736 ####[facility] [address] [place] [address] Medical Director: Mendoza Whitfield MD Saturation 8.6 % Low 20.0-50.0 [facility] Comment on above: Order Comment: 1 digna quinones prior to FUV Ordered on Fin# [id number] Performed By: #### 1 17740, 905370, 7276776, 012323, 373839, 678274, 923702 ####[facility] [address] [place] [address] Medical Director: Mendoza Whitfield MD TIBC 453 ug/ml High 250-425 [facility] Comment on above: Order Comment: 1 digna quinones prior to FUV Ordered on Fin# [id number] Result Comment: Resu lts may be inaccurate if performed within 14 days of IV iron dextran administration. Performed By: #### 1 37612, 601520, 8587489, 619874, 222385, 152099, 235804 ####[facility] [address] [place] [address] Medical Director: Mendoza Whitfield MD LDHon 10-01-2024 LDH 226 unit/L Normal 120-246 [facility] Comment on above: Order Comment: 1 digna quinones prior to FUV Ordered on Fin# [id number] Performed By: #### 1 17293, 611999, 9092203, 434344, 522604, 570995, 084703 #### [facility] [address] [place] [address] Information Security Specialist: MD Kristi Cheung 08-23-2024 CNPN Telephone ([facility]) PAU MUÑOZ ([id number]) 1950 F Date Time Provider Department 08/23/24 HÉCTOR FAIRCHILD [facility] During your visit today, we recorded the following information about you: Pau Lanza 08/23/2024 10:40 AM Signed Patient need a refill on her gabapentin. The pharmacy is telling the patient she has no refills left. Send to [facility] in [place] [phone] Angeli Greenfield LPN 08/23/2024 11:17 AM Signed Refill encounter sent. Allergies As of Date: 08/23/2024 Noted Allergy Reaction ACYCLOVIR 03/15/2013 11 - Vomiting BACTRIM (SULFAMETHOXAZOLE-TRIM ETH*06/13/2023 2 - Rash DIGOXIN 05/30/2006 Comments: rhythm block INDERAL (PROPRANOLOL HCL) 05/30/2006 Comments: low blood pressure IV DYE (IODINATED CONTRAST MEDIA) 08/08/2023 16 - Unknown Comments: patient reported. prior erroneous entry KEFLEX (CEPHALEXIN) 08/12/2009 4 - Hives LEVAQUIN (LEVOFLOXACIN) 05/30/2006 4 - Hives SULFA (SULFONAMIDE ANTIBIOTICS) 05/30/2006 4 - Hives Date Reviewed: 11/21/2023 Reviewed by: Angeli Greenfield LPN - Fully Assessed Visit Diagnoses:Spinal stenosis, lumbar region with neurogenic claudication [M48.062] CAD, multiple vessel [I25.10] AICD (automatic cardioverter/defibrill ator) present [Z95.810] Cardiac pacemaker in situ [Z95.0] Spinal stenosis of lumbar region with neurogenic claudication [M48.062] Prescriptions as of 08/23/2024 - gabapentin (NEURONTIN) 100 mg capsule Dose clarification: take 2 tabs PO BID - lisinopril (ZESTRIL) 10 mg tablet Take 1 tablet (10 mg) by mouth once daily. - Lactobacillus acidophilus (PROBIOTIC ORAL) Take by mouth once daily. - cetirizine HCl (ZYRTEC ORAL) Take by mouth as needed. - warfarin (COUMADIN) 2.5 mg tablet Take 1 tablet by mouth every afternoon. - dilTIAZem CD (CARDIZEM CD, CARTIA XT) 240 mg 24 hr capsule Take 240 mg by mouth every 12 hours. - traMADol (ULTRAM) 50 mg tablet Take 1 tablet (50 mg) by mouth every 8 hours if needed for severe pain (7 - 10). - MAGNESIUM ORAL Take 500 mg by mouth once daily. - pravastatin (PRAVACHOL) 40 mg tablet Take 1 tablet by mouth every afternoon. - pravastatin (PRAVACHOL) 20 mg tablet TAKE 1 TABLET BY MOUTH EVERY DAY - doxycycline monohydrate (MONODOX) 100 mg capsule Take 1 capsule by mouth twice daily. - diltiazem CD (CARDIZEM CD, CARTIA XT) 240 mg 24 hr capsule Take 240 mg by mouth once daily. - methylPREDNISolone (MEDROL, CHRISSY,) 4 mg Dose-Pack As instructed per package - cholecalciferol (VITAMIN D3) 2,000 unit tablet Take 1 tablet by mouth once daily. - esomeprazole (NEXIUM) 20 mg capsule Take 20 mg by mouth DAILY (6 AM). - Bacillus coagulans (PROBIOTIC, B. 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 Take by mouth. - ferrous sulfate (IRON, FERROUS SULFATE,) 325 mg (65 mg iron) tablet Take 325 mg by mouth daily with breakfast. - Black Cohosh 540 mg cap Take by mouth. - Magnesium 250 mg tab Take 500 mg by mouth. - PARoxetine (PAXIL) 10 mg tablet Take 1 tab PO qd in morning. - diclofenac sodium (VOLTAREN) 1 % topical gel Apply 4 g to affected area four times daily. As Directed. - omeprazole (PRILOSEC) 20 mg capsule Take 1 capsule by mouth once daily. Problem List As Of Date 08/23/2024 Noted Resolved LUMB/LUMBOSAC DISC DEGEN [M51.379] 05/18/2007 ASTHMA UNSPECIFIED [J45.909] 05/18/2007 VSD CLOSURE/MAZE/08/28 [Q21.0] 08/15/2008 SHORTNESS OF BREATH [R06.02] 08/15/2008 PULM HYPERTENSION [I27.0] 08/15/2008 ATRIAL FIBRILLATION [I48.91] 08/28/2008 Coronary atherosclerosis [I25.10] 08/29/2008 H/O ANXIETY [F06.4] 08/29/2008 PLEURAL EFFUSION [J90] 08/30/2008 POST OP HYPERGLYCEMIA [R79.89] 08/30/2008 09/02/2008 DVT PROPHYLAXIS [PDX] 08/30/2008 COUGH [R05.9] 09/04/2008 CARDIAC PACEMAKER IN SITU [Z95.0] 09/05/2008 Mild LV Dysfunction [I51.9] 08/16/2009 Type 2 diabetes mellitus without complication (*12/11/2015 Essential hypertension [I10] 12/11/2015 Hyperlipidemia [E78.5] 12/11/2015 MGUS (monoclonal gammopathy of unknown signific* Pacemaker [Z95.0] Spontaneous ASD closure [Z87.74] DJD (degenerative joint disease) [M19.90] Anxiety [F41.9] Obesity, Class II, BMI 35-39.9 [E66.812] 10/06/2017 Obesity, Class I, BMI 30-34.9 [E66.811] 01/03/2018 Encounter Status:Closed by ANGELI GREENFIELD on 08/23/24 Normal [facility] US CAROTID ARTERY DUPLE X BILATERALon 08-22-2024 [facility] US CAROTID ARTERY DUPLEX BILATERAL [place] [address] and Vascular Lab Report [facility] US CAROTID ARTERY DUPLEX BILATERAL Patient Name: PAU LEATHA Reading Physician: [id number] Nolvia Lopez MD, RPVI Study Date: 08/22/2024 Ordering Physician: [id number] KISER MRN/PID: [id number] Technologist: Emili Rascon T Technologist 2: Date of /Age: 1 1950 / 74 years Gender: F Admission Status: Outpatient Location Performed: [facility] Diagnosis/ICD: Occlusion and stenosis of left carotid artery-I65.22 Indication: Occlusion/stenosis, Carotid without cerebral infarction CPT Codes: 87718 Cerebrovascular Carotid Duplex scan complete CONCLUSIONS: Right Carotid: Findings are consistent with less than 50% stenosis of the right proximal internal carotid artery. Laminar flow seen by color Doppler. Right external carotid artery appears patent with no evidence of stenosis. No evidence of hemodynamically significant stenosis of the right common carotid artery. The right vertebral artery is patent with antegrade flow. No evidence of hemodynamically significant stenosis in the right subclavian artery. Left Carotid: Findings are consistent with less than 50% stenosis of the left proximal internal carotid artery. Laminar flow seen by color Doppler. Left external carotid artery appears patent with no evidence of stenosis. No evidence of hemodynamically significant stenosis of the left common carotid artery. The left vertebral artery is patent with antegrade flow. No evidence of hemodynamically significant stenosis in the left subclavian artery. Endarterectomy: Patent left carotid endarterectomy site following endarterectomy. Patch diameter ~ 1.1 cm. Comparison: Compared with study from 08/22/2023, Elevated velocities within the right Subclavian artery was not appreciated on current examination. Imaging & Doppler Findings: Right Plaque Morph: The proximal right internal carotid artery demonstrates calcified plaque. The proximal right external carotid artery demonstrates intimal thickening plaque. The mid right common carotid artery demonstrates intimal thickening plaque. The distal right common carotid artery demonstrates intimal thickening plaque. Left Plaque Morph: The mid left common carotid artery demonstrates intimal thickening plaque. The distal left common carotid artery demonstrates smooth plaque. Right Left PSV EDV PSV EDV 110 cm/s CCA P 90 cm/s 78 cm/s CCA D 44 cm/s 101 cm/s 22 cm/s ICA P 34 cm/s 6 cm/s 61 cm/s 17 cm/s ICA M 43 cm/s 8 cm/s 49 cm/s 13 cm/s ICA D 62 cm/s 104 cm/s ECA 74 cm/s 54 cm/s 9 cm/s Vertebral 46 cm/s 8 cm/s 128 cm/s Subclavian Right Left ICA/CCA Ratio 1.3 0.8 [id number] Nolvia Lopez MD, JUDD Final Normal [facility] AUTO DIFFon 08-09-2024 Baso Count 0.10 x1000 Normal 0.00-0.20 [facility] Comment on above: Performed By: #### 9 605324, 294103, 378107, [id number] ####[facility] [address] [place] [address] Medical Director: Mendoza Whitfield MD Basos % 0.8 % Normal [facility] Comment on above: Performed By: #### 9 859517, 964883, 724926, [id number] ####[facility] [address] [place] [address] Medical Director: Mendoza Whitfield MD Eos Count 0.10 x1000 Normal 0.00-0.50 [facility] Comment on above: Performed By: #### 9 333918, 530823, 532654, [id number] ####[facility] [address] [place] [address] Medical Director: Mendoza Whitfield MD Eosinophils/100 WBC (Bld) 1.1 % Normal [facility] Comment on above: Performed By: #### 9 261026, 516691, 972656, [id number] ####[facility] [address] [place] [address] Medical Director: Mendoza Whitfield MD Lymph Count 1.70 x1000 Normal 1.20-4.80 [facility] Comment on above: Performed By: #### 9 986022, 765711, 330696, [id number] ####[facility] [address] [place] [address] Medical Director: Mendoza Whitfield MD Lymphocytes/100 WBC (Bld) 15.7 % Normal [facility] Comment on above: Performed By: #### 9 004189, 735311, 617327, [id number] ####[facility] [address] [place] [address] Medical Director: Mendoza Whitfield MD [place] Count 1.00 x1000 Normal 0.10-1.00 [facility] Comment on above: Performed By: #### 9 410454, 155908, 055775, [id number] ####[facility] [address] [place] [address] Medical Director: Mendoza Whitfield MD Monocytes/100 WBC (Bld) 9.0 % Normal [facility] Comment on above: Performed By: #### 9 586581, 683653, 432419, [id number] ####[facility] [address] [place] [address] Medical Director: Mendoza Whitfield MD Neutrophil Count (ANC) 7.80 x1000 Normal 1.40-8.80 [facility] Comment on above: Performed By: #### 9 906906, 767669, 042780, [id number] ####[facility] [address]16[address] [place] [address] Medical Director: Mendoza Whitfield MD Neutrophils/100 WBC (Bld) 73.4 % Normal [facility] Comment on above: Performed By: #### 9 541793, 372548, 418014, 536322954 ####[facility] [address] [place] [address] Medical Director: Mendoza Whitfield MD Red Blood Cell Morphology See Notes Abnormal [facility] Comment on above: Result Comment: Anis ocytosis 1+ Performed By: #### 9 876947, 238696, 269206, [id number] ####[facility] [address] [place] [address] Medical Director: Mendoza Whitfield MD COMPMETAon 08-09-2024 GFR Estimated 54 Normal [facility] Comment on above: Result Comment: The GFR is calculated and is Age, Sex, and Race adjusted. Performed By: #### 9 608333, 384654, 045419, [id number] ####[facility] [address] [place] [address] Medical Director: Mendoza Whitfield MD Albumin [Mass/Vol] 3.4 g/dL Normal 3.4-5.0 [facility] Comment on above: Performed By: #### 9 664503, 203250, 883624, [id number] ####[facility] [address] [place] [address] Medical Director: Mendoza Whitfield MD Albumin/Globulin [Mass ratio] 0.8 {ratio} Normal [facility] Comment on above: Performed By: #### 9 301133, 703650, 143187, [id number] ####[facility] [address] [place] [id number] Medical Director: Mendoza Whitfield MD Alk Phos 131 unit/L High 45-117 [facility] Comment on above: Performed By: #### 9 282829, 807188, 418415, [id number] ####[facility] [address] [place] [address] Medical Director: Mendoza Whitfield MD Bilirubin [Mass/Vol] 0.30 mg/dL Normal 0.30-1.20 [facility] Comment on above: Result Comment: Use of this assay is not recommended for patients undergoing treatment with eltrombopag due to the potential for falsely elevated results. Performed By: #### 9 283566, 416348, 795457, [id number] ####[facility] [address] [place] [id number] Medical Director: Mendoza Whitfield MD Calcium [Mass/Vol] 9.4 mg/dL Normal 8.5-10.5 [facility] Comment on above: Performed By: #### 9 016178, 518274, 537563, [id number] ####[facility] [address] [place] [address] Medical Director: Mendoza Whitfield MD Chloride [Moles/Vol] 98 mmol/L Low 100-109 [facility] Comment on above: Performed By: #### 9 259573, 839371, 817961, [id number] ####[facility] [address] [place], [place] 3486[address]40) [phone] Director: Mendoza Whitfield MD CO2 [Moles/Vol] 29.2 mmol/L Normal 21.0-32.0 [facility] Comment on above: Performed By: #### 9 178315, 606927, 910857, [id number] ####[facility] [address] [place], [place] [address]40) [phone] Director: Mendoza Whitfield MD Creatinine [Mass/Vol] 1.0 mg/dL Normal 0.6-1.0 [facility] Comment on above: Performed By: #### 9 522322, 420781, 256750, [id number] ####[facility] [address] [place], [place] 9110[address]40) [phone] Director: Mendoza Whitfield MD Globulin (S) [Mass/Vol] 4.3 g/dL Normal [facility] Comment on above: Performed By: #### 9 139250, 627327, 137013, [id number] ####[facility] [address] [place] [id number] [facility] Director: Mendoza Whitfield MD Glucose [Mass/Vol] 149 mg/dL High 72-100 [facility] Comment on above: Result Comment: Fabiana puncture should occur prior to sulfasalazine administration due to the potential for falsely depressed results. Venipuncture should occur prior to sulfapyridine administration due to the potential falsely elevated results. Baseline assay values before administration of sulfasalazine and sulfapyridine therapy would not be affected. Performed By: #### 9 632684, 656040, 515860, [id number] ####[facility] [address] [place], [place] [address]) [phone] Director: Mendoza Whitfield MD GOT 22 unit/L Normal 15-37 [facility] Comment on above: Result Comment: Fabiana puncture should occur prior to sulfasalazine administration due to the potential for falsely depressed results. Baseline assay values before administration of sulfasalazine and sulfapyridine therapy would not be affected. Performed By: #### 9 057746, 512432, 171627, [id number] ####[facility] [address] [place], [place] [id number]) [phone] Director: Mendoza Whitfield MD GPT 26 unit/L Normal 14-59 [facility] Comment on above: Result Comment: Fabiana puncture should occur prior to sulfasalazine administration due to the potential for falsely depressed results. Baseline assay values before administration of sulfasalazine and sulfapyridine therapy would not be affected. Performed By: #### 9 971988, 384562, 478215, [id number] ####[facility] [address] [place], [place] [id number]) [phone] Director: Mendoza Whitfield MD Osmolality [Osmolality] 277 mosm/kg Normal 275-295 [facility] Comment on above: Performed By: #### 9 705168, 064371, 125788, [id number] ####[facility] [address] [place] [address] Medical Director: Mendoza Whitfield MD Potassium [Moles/Vol] 3.9 mmol/L Normal 3.5-5.1 [facility] Comment on above: Performed By: #### 9 330658, 079875, 924519, [id number] ####[facility] [address] [place] [address] Medical Director: Mendoza Whitfield MD Protein [Mass/Vol] 7.7 g/dL Normal 6.0-8.5 [facility] Comment on above: Performed By: #### 9 440971, 305026, 522543, [id number] ####[facility] [address] [place], [place] 00[address]) [phone] Director: Mendoza Whitfield MD Sodium [Moles/Vol] 136 mmol/L Normal 135-145 [facility] Comment on above: Performed By: #### 9 402840, 355130, 262113, [id number] ####[facility] [address] [place] [address] Medical Director: Mendoza Whitfield MD Urea nitrogen [Mass/Vol] 18 mg/dL Normal 10-20 [facility] Comment on above: Performed By: #### 9 022518, 993102, 131366, [id number] ####[facility] [address] [place] [address] Medical Director: Mendoza Whitfield MD Urea nitrogen/Creatinine [Mass ratio] 18.0 mg/mg Normal [facility] Comment on above: Performed By: #### 9 244812, 550658, 893255, [id number] ####[facility] [address] [place] [address] [facility] Director: Mendoza Whitfield MD ED Physician Reporton 2024 ED Physician Report PAU MUÑOZ :1950 Registration Date:08/09/2024 Basic Information CC of shortness of breath History of Present Illness Patient presents for 3 or 4 hours of shortness of breath. She has a history of asthma and congestive heart failure and atrial fibrillation. He says over the past 3 or 4 hours she can feel like she is getting a little short of breath and when she leaned over she felt like there was some fluid in her lungs. She is concerned about her congestive heart failure because she has not been eating like she should over the past few days. She denies any swelling in her extremities. No recent fever. No chest pain or difficulty breathing. No other complaints today. Physical Exam Vitals & Measurements Initial: HR: 79 (Monitored) SpO2: 95% O2 Therapy: Room air Latest: HR: 58 (Peripheral) HR: 61 (Monitored) BP: 156/71 SpO2: 94% General: Awake, alert, no acute distress. Well developed, appears stated age. Skin: Warm, dry. Appropriate color for ethnicity. Head: Normocephalic and atraumatic. Hair is of normal texture. Respiratory: The chest wall is symmetric. No signs of respiratory distress. Clear to auscultation bilaterally. Cardiovascular: Regular rate and rhythm, no peripheral edema. Musculoskeletal: Upper and lower extremities are without deformity or swelling. Neurological: Awake, alert, normal speech. Psychiatric: Appropriate mood and affect. Medical Decision Making Patient's EKG shows a paced rhythm. Her initial troponin is normal. Her proBNP is mildly elevated. CBC shows no anemia and a normal white blood cell count. Her potassium is normal. Her blood sugar is mildly elevated at 149. Chest x-ray was read by the radiologist as mild pulmonary congestion. Patient's oxygen saturations have remained within normal limits. Reexamination/Reevalua tion Patient was treated with a DuoNeb and 40 mg of IV Lasix. She is urinated several times. She says she is feeling better and she would like to be discharged to home. Her symptoms are mild and her vital signs are normal. I do feel she is appropriate for discharge. She will continue her home Lasix. I recommended follow-up to her primary care physician. All of the patient's concerns that were expressed to me during this visit have been addressed and immediate life threatening emergencies have been ruled out. All questions that the patient had were answered to the best of my ability prior to leaving the facility. The patient was instructed to return to the ER in the event of new, or worsening, or concerning symptoms. The patient verbally expressed a clear understanding of the diagnosis and the instructions. Dictation software was used to complete this note and may contain unintentional pocket secretary assembler errors. Systolic Blood Pressure: 156 mmHg High Diastolic Blood Pressure: 71 mmHg Temperature Oral: 36.7 degC Heart Rate Monitored: 61 bpm Respiratory Rate: 20 br/min Mean Arterial Pressure, Cuff: 105 mmHg SpO2: 94 % Oxygen Therapy: Room air Peripheral Pulse Rate: 58 bpm Low Weight Dosin.1 kg Discharge/Plan *Discharge Disposition ED Discharge to Home - Ordered -- 08/09/2024 01:34:00 EDT, Constant Order Patient Education SOB (Shortness of Breath) Follow Up With When Contact Information RONIT DOAN DR NOT ON STAFF Within 3 to [address] [place] [phone] Business (1) Additional Instructions: Assessment This Visit Diagnosis Shortness of breath R06.02 Orders: Cardiac Monitoring, Continuous, Constant Order CBCWD(CBC WITH DIFF), STAT, 08/09/2024 00:42:00 EDT COMPMETA(CMP), STAT, 08/09/2024 00:42:00 EDT ED Discharge to Home, 08/09/2024 01:34:00 EDT, Constant Order EKG, 08/09/2024 00:10:00 EDT, Shortness of Breath, Pacemaker, Wheelchair, Heart Meds Unknown at this time, RASHMI, No EKG/[place] Requested proBNP, STAT, 08/09/2024 00:42:00 EDT TROPONIN HS SINGLE DRAW, STAT, 08/09/2024 00:42:00 EDT XR CHEST 2V PA LAT, 08/09/2024 00:20:00 EDT, STAT, SHORTNESS OF BREATH, Wheelchair, Isolation Precautions: NONE Problem List/Past Medical History Ongoing Advanced diabetic retinal disease Adverse effect of compound iron preparation Afib Anxiety Arthritis Artificial pacemaker Asthma Atrial fibrillation Atrial septal defect CHF (congestive heart failure) Coronary atherosclerosis COVID-19 Degeneration of lumbosacral intervertebral disc Dyspnea on exertion Eczema High cholesterol History of disorder of eye proper HTN (hypertension) Hypercholesteremia Hypomagnesemia IBS (irritable bowel syndrome) Idiopathic pulmonary arterial hypertension.. Iron deficiency Left ventricular cardiac dysfunction MGUS (monoclonal gammopathy of unknown significance) Osteoarthritis Pleural effusion Prediabetes Type 2 diabetes mellitus without complication Ventricular septal defect Historical COVID-19 Irritable bowel syndr (more content not included)... Normal [facility] HEMOon 08-09-2024 DIFF? No Normal [facility] Comment on above: Performed By: #### 9 [id number], 680848, 894530, [id number] ####[facility] [address] [place] [address] Medical Director: Mendoza Whitfield MD Erythrocyte distribution width (RBC) [Ratio] 16.3 % High 11.5-14.5 [facility] Comment on above: Performed By: #### 9 626056, 745007, 390990, [id number] ####[facility] [address] [place] [address] Medical Director: Mendoza Whitfield MD Hematocrit (Bld) [Volume fraction] 40.9 % Normal 36.0-46.0 [facility] Comment on above: Performed By: #### 9 239804, 082748, 369060, [id number] ####[facility] [address] [place] [address] Medical Director: Mendoza Whitfield MD Hemoglobin (Bld) [Mass/Vol] 13.9 g/dL Normal 12.0-16.0 [facility] Comment on above: Performed By: #### 9 791083, 280876, 964620, [id number] ####[facility] [address] [place] [address] Medical Director: Mendoza Whitfield MD Instr WBC 10.7 Normal [facility] Comment on above: Performed By: #### 9 304475, 103902, 257450, [id number] ####[facility] [address] [place] [address] Medical Director: Mendoza Whitfield MD MCH (RBC) [Entitic mass] 27.6 pg Normal 27.0-34.0 [facility] Comment on above: Performed By: #### 9 924701, 762553, 410820, [id number] ####[facility] [address] [place] [address] Medical Director: Mendoza Whitfield MD MCHC (RBC) [Mass/Vol] 34.0 g/dL Normal 32.0-37.0 [facility] Comment on above: Performed By: #### 9 224065, 716952, 958515, [id number] ####[facility] [address] [place] [address] Medical Director: Mendoza Whitfield MD MCV (RBC) [Entitic vol] 81.0 fL Normal 80.0-100.0 [facility] Comment on above: Performed By: #### 9 322710, 058499, 087240, [id number] ####[facility] [address] [place] [address] Medical Director: Mendoza Whitfield MD Nucleated RBC 0 /100WBC Normal [facility] Comment on above: Performed By: #### 9 344781, 185309, 896406, [id number] ####[facility] [address] [place] [address] Medical Director: Mendoza Whitfield MD Platelet 369 x10 Normal 150-450 [facility] Comment on above: Performed By: #### 9 077334, 222603, 785411, [id number] ####[facility] [address] [place] [address] Medical Director: Mendoza Whitfield MD Platelet mean volume (Bld) [Entitic vol] 7.0 fL Low 7.4-10.4 [facility] Comment on above: Performed By: #### 9 197243, 034282, 800782, [id number] ####[facility] [address] [place] [address] [facility] Director: Mendoza Whitfield MD RBC 5.06 x10 Normal 4.20-5.40 [facility] Comment on above: Result Comment: Note : RBC morphology is normal unless otherwise stated. Evaluation performed only if differential is requested. Performed By: #### 9 316405, 872927, 142516, [id number] ####[facility] [address] [place] [address] Medical Director: Mendoza Whitfield MD WBC 10.7 x10 Normal 4.5-11.0 [facility] Comment on above: Performed By: #### 9 077161, 866336, 461444, [id number] ####[facility] [address] [place] [address] Medical Director: Mendoza Whitfield MD TROPONIN HS SINGLE DRAWon Troponin HS Single Draw 18 pg/mL Normal 3-54 [facility] Comment on above: Performed By: #### 9 384264, 703421, 317775, [id number] ####[facility] [address] [place] [address] Medical Director: Mendoza Whitfield MD XR CHEST 2V PA LATon 025 XR CHEST 2V PA LAT EXAM: Two view chest. INDICATION: Shortness of breath. COMPARISON: Chest x-ray: 04/17/2023. FINDINGS: Cardiac silhouette: Mildly enlarged with right chest wall pacemaker Libia: Mild pulmonary vascular congestion Lobar consolidation: None. Pleural effusion: None. Pneumothorax: None. Other: None. Bones: Median sternotomy wires Other: None. IMPRESSION: Mild pulmonary vascular congestion. Electronically signed by: Chan Trejo MD 08/09/2024 12:38 AM EDT RP Technologist: WB Dictated By: CHAN TREJO MD Signed By: CHAN TREJO MD Signed Out: 08/09/24 00:38:07 Normal [facility] proBNPon 08-09-2024 Natriuretic peptide B (Bld) [Mass/Vol] 211 pg/mL High 0-124 [facility] Comment on above: Result Comment: Acut e CHF Rule-in: less than 50 yrs old greater than or equal to 450 pg/ml greater than 50 yrs old greater than or equal to 900 pg/ml Performed By: #### 2 [id number] ####[facility] [address] [place] [address] Medical Director: Mendoza Whitfield MD Surgery Visit Reporton 07-24 Surgery Visit Report [facility] [address] [place] [address]. [address] [place] [address] OFFICE VISIT Date of Service: 07/24/24 MR#: [id number] Acct: [id number] Name: PAU MUÑOZ Rep #: [id number] : 1950 Provider: Dr. 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 Is patient in pain?: No Allergies cephalexin (From Keflex) Allergy (Verified 07/24/24 08:04) Hives levofloxacin (From Levaquin) Allergy (Verified 07/24/24 08:04) Hives Sulfa (Sulfonamide Antibiotics) Allergy (Verified 07/24/24 08:04) Hives sulfamethoxazole (From Bactrim) Allergy (Verified 07/24/24 08:04) Hives trimethoprim (From Bactrim) Allergy (Verified 07/24/24 08:04) Hives Iodinated Contrast Media (contrast dye - iodinated) Adverse Reaction (Severe, Verified 07/24/24 08:04) Other Medications ???Medication ???Instructions ???Recorded ???Confirmed ???Type acetaminophen 325 mg tablet 325 mg PO ONCE PRN pain 07/11/24 0 07/15/24 History (Tylenol) cetirizine 10 mg tablet (Zyrtec) 10 mg PO QDAY PRN allergy symptoms 07/11/24 07/15/24 History diltiazem HCl 240 mg 240 mg PO BID 07/11/24 07/17/24 Hi story capsule,extended release 24 hr (Cardizem CD) esomeprazole magnesium 20 mg 20 mg PO QDAY 07/11/24 07/17/24 Hi story capsule,delayed release (Nexium) fluticasone fur. 100 mcg-umeclid 1 inh inhalation Q24H 07/11/2403/01 History 62.5 mcg-vilant 25 mcg inhalat.powder (Trelegy Ellipta) furosemide 20 mg tablet (Lasix) 20 mg PO QPM 07/11/24 07/15/24 His tory furosemide 40 mg tablet (Lasix) 40 mg PO QAM 07/11/24 07/15/24 His tory lactobacillus combination no.4 3 3,000 mmu cells PO QDAY 07/11/24 0 07/15/24 History billion cell capsule (Probiotic) levalbuterol tartrate 45 2 inh inhalation Q6H 07/11/2407/06 History mcg/actuation aerosol inhaler (Xopenex HFA) lisinopril 10 mg tablet 10 mg PO QDAY 07/11/24 07/15/24 Hi story tramadol 25 mg tablet 25 mg PO Q6H PRN pain 07/11/2403/01 History warfarin 2 mg tablet 2.5 mg PO MOWEFR 07/11/24 07/15/24 History ipratropium 0.5 mg-albuterol 3 mg 3 ml inhalation PRN 07/15/2407/06 History (2.5 mg base)/3 mL nebulization soln magnesium gluconate 27.5 mg 27.5 mg PO DAILY 07/15/24 07/17/24 History magnesium (500 mg) tablet pravastatin 40 mg tablet 40 mg PO QHS 07/15/24 07/15/24 His tory warfarin 2.5 mg tablet 1.25 mg PO SUTUTHSA 07/15/2407/15 History hydrocodone-acetaminop hen 5-325mg 1 tab PO Q8H PRN pain 4 days #10 07/17/24 Rx 5mg-325mg tabs metformin 500 mg tablet,extended 500 mg PO QDAY 07/24/24 07/24/24 H istory release 24 hr Have you fallen in the past year?: No Subjective Details: The patient is a 74-year-old female status post a right breast excisional biopsy/lumpectomy. She returns today for postoperative visit. She denies any significant issues or problems following the surgery. Unfortunately her pathology is still pending. She denies any fevers or chills. She denies any drainage. Objective Details: The patient is alert and oriented x 3. She is in no acute distress. Right breast incision appears to be healing well. No signs of erythema or infection. Coding Level of Care Code Global Post Op Diagnoses Lump of right breast N63.10 [facility] Medical History Blood disorder Wears hearing aid Wears glasses Anxiety Arthritis Easy bruising Excessive bleeding Back pain Dietary restriction Gastric reflux Non-smoker Shortness of breath on exertion Asthma History of CHF (congestive heart failure) History of edema History of echocardiogram Hypertension Cardiology follow-up encounter History of pacemaker History of atrial fibrillation Abnormal ultrasound of breast Lump of right breast Abnormal mammogram Bilateral cataracts Surgical History (Updated 07/24/24 @ 08:06 by Alessandra Muñoz) Status post right breast lumpectomy History of carotid endarterectomy H/O right breast biopsy H/O: hysterectomy Hx of cholecystectomy History of open heart surgery Family History Mother Breast cancer, Onset Age: 57 Sister Breast cancer Social History Smoking Status: Never smoker alcohol intake: never substance use type: does not use Assessment and Plan (No Qualifiers) Assessment and Plan (1) Lump of right breast: Status: Acute Plan: The patient is a 74-year-old female status post a right breast lumpectomy. She is doing well postoperat (more content not included)... Normal [facility] POCT glycosylated hemoglobin (Hb A1C) manually resultedon 07-22-2024 HbA1c (Bld) [Mass fraction] 7 % Abnormal 4.2 - 6.5 % [facility] Work Phone: Interpretation and review of laboratory results Abnormal [facility] Work Phone: [facility] Work Phone: Protime w/INR Fingerstickon 07-19-2024 INR Coag (PPP) [Relative time] 1.2 {INR} Normal [facility] Comment on above: Result Comment: Crit ical Value > 4.0 Performed By: #### L 9200.0000 #### [facility] [address] [place], [place], [address] Protime Coagsen 14.3 SEC Normal 11.7-14.9 [facility] Comment on above: Performed By: #### L 9200.0000 #### [facility] [address] [place], [address] Discharge Instructionon 07-06 Discharge Instruction [facility] Medical Records Department [address] [place] [address] Instructions for Home/Discharge Instructions 07/17/24 1215 MR#: [id number] Acct: [id number] Name: PAU MUÑOZ Rep #: [id number] : 1950 74 From: Nawaf Mccarthy MD PCP: Dr. Ronit Doan, DO Status:REG SDC Discharge Instructions Diet Discharge Diet: Light diet - advance as tolerated Activity Discharge Activity: Return to Normal Activity and May Shower May shower in (days): 1 Ice area for (Minutes): 30 Lifting Restrictions: none Dressing / Incision Call your doctor if your incision/area has: Continuous Slow Oozing, Sudden Increased Bleeding, Increased Pain/ Swelling, Increased Redness, Foul Smelling Discharge and Swelling at the incision site Call your doctor if you observe: Fever of 101 or Higher Cleanse incision/area with: Soap Water Additional Dressing/Incision Instructions:: remove dressing prior to showering; wear TOMMY wrap or sports bra for support / compression Follow Up Care Please Follow Up With: Nawaf Mccarthy MD When: 1-2 weeks -- call for appointment Test Results: Test results from this visit will be discussed in further detail at your follow-up appointment, if applicable. Discharge Plan Admission Primary Reason for Your Visit: right breast mass Attending Provider: Nawaf Mccarthy Primary Care Provider: Ronit Doan Instructions Print Language: Iranian Discharge Orders/Prescriptions Prescriptions: New hydrocodone-acetaminop hen 5-325 mg tablet 1 tab PO Q8H PRN (Reason: pain) 4 Days Qty: 10 0RF Continued Trelegy Ellipta 100-62.5-25 mcg blister with device 1 inh inhalation Q24H lisinopril 10 mg tablet 10 mg PO QDAY levalbuterol tartrate [Xopenex HFA] 45 mcg/actuation HFA aerosol inhaler 2 inh inhalation Q6H furosemide [Lasix] 40 mg tablet 40 mg PO QAM furosemide [Lasix] 20 mg tablet 20 mg PO QPM diltiazem HCl [Cardizem CD] 240 mg capsule,extended release 24hr 240 mg PO BID tramadol 25 mg tablet 25 mg PO Q6H PRN (Reason: pain) warfarin 2 mg tablet 2.5 mg PO MOWEFR esomeprazole magnesium [Nexium] 20 mg capsule,delayed release(DR/EC) 20 mg PO QDAY Probiotic 3 billion cell capsule 3,000 mmu cells PO QDAY Rx Instructions: administer with a meal cetirizine [Zyrtec] 10 mg tablet 10 mg PO QDAY PRN (Reason: allergy symptoms) acetaminophen [Tylenol] 325 mg tablet 325 mg PO ONCE PRN (Reason: pain) ipratropium-albuterol 0.5 mg-3 mg(2.5 mg base)/3 mL solution for nebulization 3 ml inhalation PRN pravastatin 40 mg tablet 40 mg PO QHS warfarin 2.5 mg tablet 1.25 mg PO SUTUTHSA magnesium gluconate 27.5 mg magne- sium (500 mg) tablet 27.5 mg PO DAILY Referrals / Follow Up: Ronit Doan DO [Primary Care Provider] - Disposition Disposition (needs filled in before D/C Order can be placed): Home, Self Care 07/17/24 1221 Nawaf Mccarthy MD CC: Dr. Ronit Doan DO Signed Normal [facility] Immunohistochemical Stainson 07-17-2024 Immunohistochemical Stains ---- Patient Age/Sex Location Account Attending Physician ---- PAU MUÑOZ 74/F [facility] [id number] Dr. Nawaf Mccarthy MD ---- Specimen: [id number] Received: 07/18/24 Status: NIKI Fernandez Num: [id number] Spec Type: BREAST Subm Dr: Dr. Nawaf Mccarthy MD HEADER OPERATION: Breast lumpectomy PRE-OP DIAGNOSIS: Abnormal ultrasound of breast TISSUE SUBMITTED: A- Right breast lumpectomy *long stitch- lateral, short stitch- superior* ---- MICROSCOPIC DIAGNOSIS RIGHT BREAST, LUMPECTOMY: * Negative for malignancy. * Multifocal fat necrosis - see note. * Focal columnar cell change/hyperplasia. * Unremarkable skin. Note: IHC for Pancytokeratin and CD68 support the diagnosis of fat necrosis. MICROSCOPIC DESCRIPTION Slides are reviewed. All matched controls reacted appropriately. GROSS DESCRIPTION Received in fixative is one container labeled with the patient's name and designated "right breast lumpectomy, long stitch-lateral, short stitch-superior." Cold ischemia time is not indicated on the requisition or on the container. The specimen consists of a roughly round-shaped lump of yellow-white fibrofatty breast tissue with skin on one surface. It has 2 sets of sutures on it designated as above. The skin is present on the anterior surface. The specimen measures 5.3 x 5 x 2.5 cm, and the skin ellipse measures 3.5 x 1 cm. The skin is unremarkable. The specimen is inked as follows: Superior is blue, inferior is green, posterior is black, anterior is kaushal, medial is yellow, and lateral is orange. The specimen is sectioned into 13 slices, from lateral to medial at approximately 3 mm intervals. The lateral-most slice is #1 and the medial-most slice is #13. Slices #2 has a punctate firm area at the posterior ink, along with cysts. Slice #3 has a punctate firm area in the center of it. Punctate firm areas are also found on slices 6,7 and 8, at the posterior ink. No distinct masses are identified. Multiple wine sales representative sections are submitted in 10 cassettes. RS 10 eh 07/19/24 Cassette summary: A1- lateral perpendicular margin A2,A3- slice #2 A4,A5- slice #3 A6- inferior half of slice #6 A7- inferior half of slice #7 A8- superior half of slice #8 ---- Patient Age/Sex Location Account Attending Physician ---- PAU MUÑOZ 74/F [facility] [id number] Dr. Nawaf Mccarthy MD ---- A9- medial perpendicular margin A10- superior half of slice #4 CPT: 10354, 14359, 57851 ---- Patient Age/Sex Location Account Attending Physician ---- PAU MUÑOZ 74/F [facility] [id number] Dr. Nawaf Mccarthy MD ---- Signed (signature on file) Dr. Soniya Culp MD 07/29/24 1058 ---- Normal [facility] Comment on above: Performed By: #### P TERRY #### [facility] [address] [place], [place], [id number] MR/POSTOP.ANErosio 07-17-2024 MR/POSTOP.[facility] Medical Records Department [address] [place] [address] Anesthesia Postop Eval I 07/17/24 1234 MR#: [id number] Acct: [id number] Name: PAU MUÑOZ Rep #: [id number] : 1950 74 From: Zoey Aggarwal PCP: Dr. Ronit Doan, DO Status:REG SD Y Race: C Location: [place] [address] Anesthesia: Postop Eval I Current Vital Signs Temperature: 99.2 F Pulse Rate: 65 Blood Pressure: 124/50 Respiratory Rate: 16 Pulse Ox: 93 Oxygen Delivery Method: Nasal Cannula Oxygen Flow Rate (L/min): 2 Assessment Airway patent: Yes Spontaneous unlabored respirations: Yes Mental status: Awake and Calm nausea: No Vomiting: No Anesthesia Complication: No Fluid Hydration Crystalloid volume administer (ml): 700 Total IV fluid infused: 700 Progress Note Anesthesia document: Postop Eval 1 completed: Yes 07/17/24 1235 Date Zoey Jara Signature: Date CC: Signed Normal [facility] MR/GRIROTZO7of 07-17-2024 [facility] Medical Records Department [address] [place] [address] Anesthesia Postop Eval II 07/17/24 1256 MR#: [id number] Acct: [id number] Name: PAU MUÑOZ Rep #: [id number] : 1950 74 From: Moy Blair MD PCP: Dr. Ronit Doan, DO Status:REG [facility] Y Race: C Location: [place] [address] Anesthesia Postop Eval I Sum Postop Eval Completion status Anesthesia document: Postop Eval 1 completed: Yes Anesthesia Postop Eval I Summary Anesthesia Postop Eval I Summary: Anesthesia Postop Eval I: Assessment Summary Airway patent Yes 07/17/24 12:35 RN [email or web address].[email or web address] Spontaneous unlabored Yes 07/17/24 12:35 RN HEMODIALYSIS.GDOTT respirations Mental status Awake,Calm 07/17/24 12:35 RN HEMODIALYSIS.GDOTT nausea No 07/17/24 12:35 RN HEMODIALYSIS.GDOTT Vomiting No 07/17/24 12:35 RN HEMODIALYSIS.GDOTT Anesthesia Postop Eval I: Fluid Summary Crystalloid volume administer 700 07/17/24 12:35 RN HEMODIALYSIS.GDOTT (ml) Colloids volume administered ( ml) Blood Product volume administered (ml) Total IV fluid infused 700 07/17/24 12:35 RN HEMODIALYSIS.GDOTT Anesthesia Postop Eval I: Summary Notes Anesthesia Complication No 07/17/24 12:35 RN HEMODIALYSIS.GDOTT Anesthesia Complication Comment: Post-operative progress note Anesthesia: Postop Eval II Evaluation Mental status: Awake Pain Level: 0 nausea: No Vomiting: No 07/17/24 1256 Date Moy Jara Signature: Date CC: Signed Normal [facility] Operative Reporton 5 Operative Report [facility] Medical Records Department [address] [place] [address] Operative Report 07/17/24 1231 MR#: [id number] Acct: [id number] Name: PAU MUÑOZ Joni Rep #: [id number] : 1950 74 From: Nawaf Mccarthy MD PCP: Dr. Ronit Doan, DO Status:REG [facility] Location: [place] [address] Multi Select Codes Integumentary Integumentary CPT Codes: 76622 Bx breast [place] [address] Partial mastectomy Operative Report (Standard) Operative Information Date of Procedure: 07/17/24 Pre-Operative Diagnosis: Right breast mass/abnormal ultrasound Post-Operative Diagnosis: Same Surgery/Procedure Performed: Right breast lumpectomy/excisional biopsy public health program manager: Yes Lithopress Operator: Naumoff,Karina J Tasks completed by list of first job ideas: Closing and Retracting Additional scheduling assistant?: No Type of Anesthesia: General and Local RN Documented Start/Stop Times: Operation Date: 07/17/24 11:30 Case Time Into Pre-Op 07/17/24 10:06 Out of Pre-Op 07/17/24 11:30 Anesthesia Start 07/17/24 11:33 Into Room 07/17/24 11:33 Procedure Start 07/17/24 11:50 Procedure Start Time: 11:50 Procedure Stop Time: 12:20 Select all DRAINS/GRAFTS/IMPLANTS that apply: None Special Medications: Clindamycin 900 mg IV. Estimated Blood Loss: 5 mL Specimen collected: Yes Description of specimen(s) removed: Right breast lumpectomy tissue Description of surgery: The patient is a 74-year-old female who was seen in the office recently with complaints of a right breast lump as well as an ultrasound that was read as abnormal. Biopsy was recommended. Patient was quick to state that she would require sedation/anesthesia should any type of biopsy need to be performed. She has had multiple previous excisional biopsies in the past all of which have been benign per her description. She had an ultrasound that showed a less than 1 cm abnormality that corresponded to the palpable lesion in question. There was another less than 1 cm abnormality seen on ultrasound just adjacent to the original palpable lesion. This was in the same area as a previous excisional biopsy. We discussed option of ultrasound-guided core biopsy in the office under Ativan however she stated that she need to be asleep for the procedure and so we recommended an excisional biopsy to be performed in the operating room. She agreed to proceed. Patient was brought to the operating room today following informed consent. Preoperative antibiotics were given and a timeout was performed. The site was marked preoperatively. Once in the operating room a general anesthesia was induced. Once adequately sedated the arms were comfortably outstretched on arm boards. Before prepping the skin, ultrasound was used to again reidentify the ultrasound abnormalities and again this corresponded to the palpable lesion in question. The site was marked with a skin marker. The right breast and chest were then prepped and draped in the usual sterile manner. Local anesthetic was infiltrated. An ellipse incision was made. Bovie electrocautery was then used dissect down through subcutaneous tissues. Once the tissue was free, the specimen was oriented such that a long marking stitch was used to indicate the lateral aspect of the specimen and a short stitch was used to denote the superior aspect of the specimen. This was sent to pathology for permanent section. Hemostasis was excellent. The wound was copiously irrigated. The wound was then closed in layers first using 3-0 Vicryl. Then 4-0 Vicryl was run in the skin. Skin glue was then applied. 4 x 4 fluffs and an Tommy wrap were then applied for compression. She was awakened from anesthesia and taken to recovery in good condition. A UNDERCOATER was utilized as a certified first assistant. Her role included skin retraction and assistance with skin closure. Surgical Findings: See operative description Complications Complications: No Admit VTE Documentation VTE Present on Admission: No VTE Mechan Device Prophylaxis: SCD's VTE Pharm Prophylaxis ordered?: No Reason prophylaxis not ordered: Treatment Not Indicated 07/17/24 1246 Cosigner Signature (if applicable): CC: Dr. Ronit Doan DO; Dr. Nawaf Mccarthy MD Signed [facility] MR/PAT.SRINATH 07-15-2024 MR/PAT.[facility] Medical Records Department [address] [place] [address] PAT - Anesthesia 07/15/24 1557 MR#: [id number] Acct: [id number] Name: PAU MUÑOZ Rep #: [id number] : 1950 74 From: Moy Blair MD PCP: Dr. Ronit Doan DO Status:PRE [facility] Y Race: C Location: [facility] Pre-Assessment Diagnosis/Proposed Procedure Planned Operative Procedure(s): (R) Breast, Lumpectomy Anesthesia History Anesthesia History - designer and patternmaker: Anesthesia History - designer and patternmaker Hx Hospitalization No 07/15/24 13:26 Any Problems With Anesthesia No 07/15/24 13:26 Cholinesterase deficiency No 07/15/24 13:26 You/Your Family Experience No 07/15/24 13:26 fever (hyperthermia) with Relationship Recent Exposure to Contagious Disease Does patient have nerve No 07/15/24 13:26 stimulator Patient instructed to have device shut off --Does patient have Pacemaker or ICD? When Was Last Pacemaker Check QUESTION #4 FULL TEXT: You/Your Family Experience fever (hyperthermia) with Anesthesia Last Oral Intake Last Oral intake: Last Oral Intake NPO since Meds taken in AM with sips of water? Meds patient instructed to take am of surgery PONV PONV - designer and patternmaker: PONV - designer and patternmaker Female Yes 07/15/24 13:26 HX of Motion Sickness No 07/15/24 13:26 HX of N/V After Surgery No 07/15/24 13:26 Non-Smoker Yes 07/15/24 13:26 Duration of Surgery greater No 07/15/24 13:26 than 60 minutes Number of Risk Factors 2 07/15/24 13:26 PONV Score Moderate Risk 07/15/24 13:26 Height Weight Height Weight: Anesthesia: Height Weight Height 5 ft 07/11/24 09:21 Respiratory Assessment Respiratory Assessment - designer and patternmaker: Respiratory Tract Infection Hx - designer and patternmaker Hx Respiratory Tract Infection No 07/15/24 13:26 STOP Sleep Apnea STOP Sleep Apnea - designer and patternmaker: STOP Sleep Apnea - designer and patternmaker Hx Hypertension Yes: CONTROLLED ON MED 07/15/24 13:26 Hx Sleep Apnea No 07/15/24 13:26 CPAP BIPAP Do you snore loudly (louder No 07/15/24 13:26 than talking or can be heard Do you often feel tired/ No 07/15/24 13:26 fatigued/ sleepy during daytime? Has anyone observed you stop No 07/15/24 13:26 breathing during sleep? STOP Results Negative 07/15/24 13:26 QUESTION #5 FULL TEXT : Do you snore loudly (louder than talking or can be heard through closed doors)? 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 Specify any problems Hx of Preganancy in last 3 No 07/15/24 13:26 Months Nurse Filling Out Transfusion VCHRISTIN 07/15/24 13:26 Questions: Date: 07/15/24 07/15/24 13:26 Time: 13:27 07/15/24 13:26 Patient unable to answer at this time (ie. confused, unrespo /Reproduction History /Reproductive History - designer and patternmaker: /Reproductive Hx- designer and patternmaker Hx Now Gestational Age (in weeks): EDC: Hx Hx Para Hx Section [facility] Medical History (Updated 07/15/24 @ 15:48 by Migdalia Katz) Blood disorder Wears hearing aid Wears glasses Anxiety Arthritis Easy bruising Excessive bleeding Back pain Dietary restriction Gastric reflux Non-smoker Shortness of breath on exertion Asthma History of CHF (congestive heart failure) History of edema History of echocardiogram Hypertension Cardiology follow-up encounter History of pacemaker History of atrial fibrillation Abnormal ultrasound of breast Lump of right breast Abnormal mammogram Bilateral cataracts Home Medications ???Medication ???Instructions ???Recorded ???Last Taken ???Type acetaminophen 325 mg tablet 325 mg PO ONCE PRN pain 07/11/24 U nknown History (Tylenol) cetirizine 10 mg tablet (Zyrtec) 10 mg PO QDAY PRN allergy symptoms 07/11/24 Unknown History diltiazem HCl 240 mg 240 mg PO BID 07/11/24 Unknown His tory capsule,extended release 24 hr (Cardizem CD) esomeprazole magnesium 20 mg 20 mg PO QDAY 07/11/24 Unkno (more content not included)... Normal [facility] Surgery Visit Reporton 07-11 Surgery Visit Report [facility] [address] [place] [address] OFFICE VISIT Date of Service: 07/11/24 MR#: [id number] Acct: [id number] Name: PAU MUÑOZ Rep #: [id number] : 1950 Provider: Dr. Nawaf torres MD Age/Sex: 74/F Location: [facility] Status: Signed Intake Vital Signs 07/11/24 09:21 Height 5 ft Weight: 194 lb 2 oz BMI 37.9 BP 144/64 H Blood Pressure Location Lt brachial Position Sitting Respiration 18 Pulse 72 Pulse Source Monitor Temp 97.6 F L Temp Source Temporal Pulse Oximetry (%) 99 Oxygen Delivery Method room air Intake Visit Reasons: BIRADS 4- CONSULT ONLY Chief Complaint: BIRADS 4- consult only Accompanied by: Friend Is patient in pain?: No Allergies levofloxacin (From Levaquin) Allergy (Verified 07/11/24 09:24) Hives Iodinated Contrast Media (contrast dye - iodinated) Adverse Reaction (Severe, Verified 07/11/24 09:24) Other cephalexin (From Keflex) Adverse Reaction (Verified 07/11/24 09:24) Hives Sulfa (Sulfonamide Antibiotics) Adverse Reaction (Verified 07/11/24 09:24) Hives sulfamethoxazole (From Bactrim) Adverse Reaction (Verified 07/11/24 09:24) Hives trimethoprim (From Bactrim) Adverse Reaction (Verified 07/11/24 09:24) Hives Medications ???Medication ???Instructions ???Recorded ???Confirmed ???Type acetaminophen 325 mg tablet 325 mg PO ONCE PRN 07/11/24 History (Tylenol) cetirizine 10 mg tablet (Zyrtec) 10 mg PO QDAY PRN 07/11/24 5 History cholecalciferol (vitamin D3) 125 125 mcg PO QDAY 07/11/24 07/11/24 History mcg (5,000 unit) capsule (D3-5000) diltiazem HCl 240 mg 240 mg PO QAM 07/11/24 History capsule,extended release 24 hr (Cardizem CD) esomeprazole magnesium 20 mg 20 mg PO QDAY 07/11/24 History capsule,delayed release (Nexium) fluticasone fur. 100 mcg-umeclid 1 inh inhalation Q24H 07/11/24 Hi story 62.5 mcg-vilant 25 mcg inhalat.powder (Trelegy Ellipta) furosemide 20 mg tablet (Lasix) 20 mg PO Q OTHER DAY 07/11/24 His tory furosemide 40 mg tablet (Lasix) 40 mg PO QAM 07/11/24 History lactobacillus combination no.4 3 3,000 mmu cells PO QDAY 07/11/24 0 07/11/24 History billion cell capsule (Probiotic) levalbuterol tartrate 45 2 inh inhalation Q6H 07/11/24 His tory mcg/actuation aerosol inhaler (Xopenex HFA) lisinopril 10 mg tablet 10 mg PO QDAY 07/11/24 History pravastatin 10 mg tablet 10 mg PO QDAY 07/11/24 History tramadol 25 mg tablet 25 mg PO Q6H PRN 07/11/24 History warfarin 2 mg tablet 2 mg PO QMWF 07/11/24 History Have you fallen in the past year?: No PFSH Medical History Abnormal ultrasound of breast Lump of right breast Abnormal mammogram Bilateral cataracts Surgical History H/O right breast biopsy H/O: hysterectomy Hx of cholecystectomy History of open heart surgery Family History Mother Breast cancer, Onset Age: 57 Sister Breast cancer Social History Smoking Status: Never smoker alcohol intake: never substance use type: does not use HPI HPI HPI: The patient is a 74-year-old female who is being seen today for evaluation of abnormal right breast mammogram and ultrasound. Patient has had numerous right breast biopsies. She recently noted a palpable abnormality just below a previous biopsy incision site. Ultrasound seem to indicate to hypoechoic densities at the 1 o'clock position in relation to the nipple. 1 was at 6 cm and the other was 8 cm from the nipple. This corresponded to a site of a previous excisional biopsy. Biopsy of these areas were recommended by radiology. All of her studies were through the [facility] system. Patient admits that she will only undergo breast biopsy if she can be sedated. When asked about her desired level of sedation, it sounds as though she would actually prefer this to be done only under anesthesia. All of her previous biopsies were done and surgery ROS General General: No weight change, appetite, fatigue, colon cancer, breast cancer or weakness HEENT HEENT: Yes eye surgery; No difficulty swallowing, eye injury, swollen glands or hoarseness Additional Details: cataract Endo Endocrine: No thyroid disease, diabetes mellitus, thyroid cancer, Hair loss, heat intolerance or cold intolerance Skin Skin: No rash or changing moles Breast Breast: Yes right breast lump, abnormal mammogram and abnormal US; No left breast lump, nipple discharge, breast pain or breast enlargement Musc Musculoskeletal: Yes back problems and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 [facility] ([facility] [address] [place] [address] Chloride [Moles/Vol] 99 mmol/L Normal 98-107 [facility] Comment on above: Performed By: #### 2 432-8 #### KRISTIN DUDLEY ([id number]) [facility] ([facility] [address] [place] [address] CO2 [Moles/Vol] 24 mmol/L Normal 21-32 [facility] Comment on above: Performed By: #### 2 4322-8 #### KRISTIN DUDLEY ([id number]) [facility] ([facility] [address] [place] [address] Creatinine [Mass/Vol] 0.89 mg/dL Normal 0.50-1.05 [facility] Comment on above: Performed By: #### 2 4323-8 #### KRISTIN DUDLEY ([id number]) [facility] ([facility] [address] [place] [address] GFR/1.73 sq M.predicted MDRD (S/P/Bld) [Vol rate/Area] 69 mL/min/1.73m*2 Normal >60 [facility] Comment on above: Result Comment: Calc ulations of estimated GFR are performed using the 2020 CKD-EPI Study Refit equation without the race variable for the IDMS-Traceable creatinine methods. https://jasn.asnjournals.org/content//ASN.2571049 988 Performed By: #### 2 4323-8 #### KRISTIN DUDLEY ([id number]) [facility] ([facility] [address] [place] [address] Glucose [Mass/Vol] 163 mg/dL High 74-99 [facility] Comment on above: Performed By: #### 2 4323-8 #### KRISTIN DUDLEY ([id number]) [facility] ([facility] [address] [place] [address] Potassium [Moles/Vol] 4.5 mmol/L Normal 3.5-5.3 [facility] Comment on above: Performed By: #### 2 4323-8 #### KRISTIN DUDLEY ([id number]) [facility] ([facility] [address] [place] [address] Protein [Mass/Vol] 7.6 g/dL Normal 6.4-8.2 [facility] Comment on above: Performed By: #### 2 4323-8 #### KRISTIN DUDLEY ([id number]) [facility] ([facility] [address] [place] [address] Sodium [Moles/Vol] 132 mmol/L Low 136-145 [facility] Comment on above: Performed By: #### 2 4323-8 #### KRISTIN DUDLEY ([id number]) [facility] ([facility] [address] [place] [address] Urea nitrogen [Mass/Vol] 16 mg/dL Normal 6-23 [facility] Comment on above: Performed By: #### 2 4323-8 #### KRISTIN DUDLEY ([id number]) [facility] ([facility] [address] [place] [address] Albumin BCP dye [Mass/Vol] 4.1 g/dL 3.4 - 5.0 g/dL [facility] ALP [Catalytic activity/Vol] 74 U/L 33 - 136 U/L [facility] ALT With P-5'-P [Catalytic activity/Vol] 18 U/L 7 - 45 U/L [facility] Comment on above: Patients treated wit h Sulfasalazine may generate falsely decreased results for ALT. Anion gap [Moles/Vol] 14 mmol/L 10 - 20 mmol/L [facility] AST With P-5'-P [Catalytic activity/Vol] 23 U/L 9 - 39 U/L [facility] Bilirubin [Mass/Vol] 0.4 mg/dL 0.0 - 1 .2 mg/dL [facility] Calcium [Mass/Vol] 9.3 mg/dL 8.6 - 10. 3 mg/dL [facility] Chloride [Moles/Vol] 99 mmol/L 98 - 10 7 mmol/L [facility] CO2 [Moles/Vol] 24 mmol/L 21 - 32 mmol/L [facility] Creatinine [Mass/Vol] 0.89 mg/dL 0.50 - 1.05 mg/dL [facility] GFR/1.73 sq M.predicted MDRD (S/P/Bld) [Vol rate/Area] 69 mL/min/{1.73_m2} - PINF [facility] Comment on above: Calculations of galilea mated GFR are performed using the 2020 CKD-EPI Study Refit equation without the race variable for the IDMS-Traceable creatinine methods. https://jasn.asnjournals.org/content/early/ASN.9846883 988 Glucose [Mass/Vol] 163 mg/dL High 74 - 99 mg/dL [facility] Interpretation and review of laboratory results Abnormal [facility] Potassium [Moles/Vol] 4.5 mmol/L 3.5 - 5.3 mmol/L [facility] Protein [Mass/Vol] 7.6 g/dL 6.4 - 8.2 g/dL [facility] Sodium [Moles/Vol] 132 mmol/L Low 136 - 145 mmol/L [facility] Urea nitrogen [Mass/Vol] 16 mg/dL 6 - 23 mg/dL [facility] PT Coag (PPP) [Time]on 04-24 INR Coag (PPP) [Relative time] 2.0 High 0.9-1.1 [facility] Comment on above: Performed By: #### 5 902-2 #### KRISTIN LUIS ENRIQUE ([id number]) [facility] ([facility] [address] [place] [address] INR Coag (PPP) [Relative time] 2.0 {INR} High 0.9 - 1.1 [facility] Interpretation and review of laboratory results Abnormal [facility] Protime-INRon 04-24-2023 PT Coag (PPP) [Time] 22.9 s High [facility] Anticoagulation Monitoring S erviceon 01-18-2023 Anticoagulation Monitoring Service Today's INR [id number] IO INR2.2 Target INR range2-3 SourceAMS History of Present Illness Patient identification verified with 2 patient identifiers. Anticoagulation Monitoring Service: [facility]. August 10, 2023. The patient is being seen as a follow-up for anticoagulation monitoring. Target INR 2-3. Monitoring practitioner Ronit Doan DO. Date Warfarin Begun: August 01, 2022. INR monitoring is per [facility] protocol. The patient is on anticoagulation due to atrial fibrillation/flutter. The patient is currently taking warfarin Tablet strength and color: 2.5 mg (Green) Interval History: Patient was last seen: January 04, 2023. Previous INR was 2.6. Incoming total weekly dose 13.75 mg. Today's Clinic INR: AMS INR 2.2. Since last visit, the patient reports no bleeding. The patient did not experience clinically relevant bleeding. The patient did not experience other minor bleeding. Since last visit, the patient has not experienced a thrombotic event. The patient reports no change in medication. She reports no change in alcohol consumption. She reports no change in Vitamin K consumption. The patient has taken Warfarin as directed. Management: The patient's INR is within target range. Will maintain dose. Next follow up appointment in 2 week(s). Outgoing total weekly dose 13.75 mg. Patient instructed to call in interim with questions, concerns and changes. Discussion/Summary You are currently taking Warfarin. Your tablet strength and color: 2.5 mg (Green) Next Appointment: Wednesday, February 01, 2023. Time: 10: 30 am. Location: [facility], . Your INR today is within range . You will continue to take your dose as instructed above. Visit information Please call in interim with questions, concerns and changes. Do tell your provider when you get sick, hurt, or get a cut that will not stop bleeding. If you have any bleeding, trauma, falls and/or other medical concerns, call your doctor or seek medical attention right away. Results/Data Coumadin Printed in Appendix #1 below. *Diagnosis/Problems 1. Paroxysmal atrial fibrillation (427.31) (I48.0) Signatures Electronically signed by : Blanca Christensen R.N.; Jan 18 2023 2:29PM EST (Author) Appendix #1 Coumadin Patient: PAU MUÑOZ; : 1950; [id number] 02:[id number] 10:[id number] 10:[id number] 10:[id number] 01:05PM IO PT/INR PT + INR, Plasma PT/INR (POC) Recorded INR Coagulation Screen Current Dose New Dose Recheck in Patient Notified Comments IO INR2.22.62.33.33 PT, INR Target INR [id number] Normal [employer] Today's INRon 01-18-2023 Today's INR AMS Anticoagulati on [facility] Work Phone: Today's INR 2-3 Anticoagulati on [facility] Work Phone: Anticoagulation Monitoring S erviceon 01-04-2023 Anticoagulation Monitoring Service Today's INR [id number] IO INR2.6 Target INR range2-3 SourceAMS History of Present Illness Patient identification verified with 2 patient identifiers. Anticoagulation Monitoring Service: [facility]. August 10, 2023. The patient is being seen as a follow-up for anticoagulation monitoring. Target INR 2-3. Monitoring practitioner Ronit Doan DO. Date Warfarin Begun: August 01, 2022. INR monitoring is per [facility] protocol. The patient is on anticoagulation due to atrial fibrillation/flutter. The patient is currently taking warfarin Tablet strength and color: 2.5 mg (Green) 5 mg([place]). Interval History: Patient was last seen: December 28, 2022. Previous INR was 2.3. Incoming total weekly dose 13.75 mg. Today's Clinic INR: [facility] INR 2.6. Since last visit, the patient reports no bleeding. The patient did not experience clinically relevant bleeding. The patient did not experience other minor bleeding. Since last visit, the patient has not experienced a thrombotic event. The patient reports no change in medication. She reports no change in alcohol consumption. She reports no change in Vitamin K consumption. The patient has taken Warfarin as directed. Management: The patient's INR is within target range. Will maintain dose. Next follow up appointment in 2 week(s). Outgoing total weekly dose 13.75 mg. Patient instructed to call in interim with questions, concerns and changes. Discussion/Summary You are currently taking Warfarin. Your tablet strength and color: 2.5 mg (Green) and 5 mg([place]). Next Appointment: Wednesday, January 18, 2023. Time: 2: 15 pm. Location: [facility], . Your INR today is within range . You will continue to take your dose as instructed above. Visit information Please call in interim with questions, concerns and changes. Do tell your provider when you get sick, hurt, or get a cut that will not stop bleeding. If you have any bleeding, trauma, falls and/or other medical concerns, call your doctor or seek medical attention right away. Results/Data Coumadin Printed in Appendix #1 below. *Diagnosis/Problems 1. Paroxysmal atrial fibrillation (427.31) (I48.0) Signatures Electronically signed by : Blanca Christensen R.N.; Jan 04 2023 10:46AM EST (Author) Appendix #1 Coumadin Patient: PAU MUÑOZ; : 1950; [id number] 10:[id number] 10:[id number] 10:[id number] 01:47ZO49Gvx4499 10:07AM IO PT/INR PT + INR, Plasma PT/INR (POC) Recorded INR Coagulation Screen Current Dose New Dose Recheck in Patient Notified Comments IO INR2.62.33.332.4 PT, INR Target INR mydbf7-09-06-32-32-3 Normal [employer] Today's INRon 01-04-2023 Today's INR AMS Anticoagulati on [facility] Work Phone: Today's INR 2-3 Anticoagulati on [facility] Work Phone: Anticoagulation Monitoring S erviceon 12-28-2022 Anticoagulation Monitoring Service Today's INR [id number] IO INR2.3 Target INR range2-3 SourceAMS History of Present Illness Patient identification verified with 2 patient identifiers. Anticoagulation Monitoring Service: [facility]. August 10, 2023. The patient is being seen as a follow-up for anticoagulation monitoring. Target INR 2-3. Monitoring practitioner Ronit Doan DO. Date Warfarin Begun: August 01, 2022. INR monitoring is per [facility] protocol. The patient is on anticoagulation due to atrial fibrillation/flutter. The patient is currently taking warfarin Tablet strength and color: 2.5 mg (Green) 5 mg([place]). Interval History: Patient was last seen: December 20, 2022. Previous INR was 3.3. TWD of warfarin was reduced at time of last appointment. Incoming total weekly dose 13.75 mg. Today's Clinic INR: AMS INR 2.3. Since last visit, the patient reports no bleeding. The patient did not experience clinically relevant bleeding. The patient did not experience other minor bleeding. Since last visit, the patient has not experienced a thrombotic event. The patient reports a change in medication. The patient stopped or started antibiotics. Patient reports that she completed clindamycin therapy two days ago. She reports no change in alcohol consumption. She reports no change in Vitamin K consumption. The patient has taken Warfarin as directed. Management: The patient's INR is within target range. Will maintain dose. Next follow up appointment in 1 week(s). Outgoing total weekly dose 13.75 mg. Patient instructed to call in interim with questions, concerns and changes. Patient educated on interactions between medications and warfarin. Discussion/Summary You are currently taking Warfarin. Your tablet strength and color: 2.5 mg (Green) and 5 mg([place]). Next Appointment: Wednesday, January 04, 2023. Time: 10: 30 am. Location: [facility], . Your INR today is within range . You will continue to take your dose as instructed above. Visit information Please call in interim with questions, concerns and changes. Do tell your provider when you get sick, hurt, or get a cut that will not stop bleeding. Taking a new medication may change your INR. Please inform your provider of any medication changes. If you have any bleeding, trauma, falls and/or other medical concerns, call your doctor or seek medical attention right away. Results/Data Coumadin Printed in Appendix #1 below. *Diagnosis/Problems 1. Paroxysmal atrial fibrillation (427.31) (I48.0) Signatures Electronically signed by : Blanca Christensen R.N.; Dec 28 2022 10:42AM EST (Author) Appendix #1 Coumadin Patient: PAU MUÑOZ; : 1950; [id number] 10:[id number] 10:[id number] 01:[id number] 10:[id number] 10:32SZ22Ehd6178 08:52AM IO PT/INR PT + INR, Plasma PT/INR (POC) Recorded INR Coagulation Screen Current Dose New Dose Recheck in Patient Notified Comments IO INR2.33.332.42.6 PT, INR2.1 Target INR rhars2-64-32-32-32-3 Normal [employer] Today's INRon 12-28-2022 Today's INR AMS Anticoagulati on [facility] Work Phone: Today's INR 2-3 Anticoagulati on [facility] Work Phone: Anticoagulation Monitoring S erviceon 12-20-2022 Anticoagulation Monitoring Service Today's INR [id number] IO INR3.3 Target INR range2-3 Source[facility] History of Present Illness Patient identification verified with 2 patient identifiers. Anticoagulation Monitoring Service: [facility]. August 10, 2023. The patient is being seen as a follow-up for anticoagulation monitoring. Target INR 2-3. Monitoring practitioner Ronit Doan DO. Date Warfarin Begun: August 01, 2022. INR monitoring is per [facility] protocol. The patient is on anticoagulation due to atrial fibrillation/flutter. The patient is currently taking warfarin Tablet strength and color: 2.5 mg (Green) 5 mg([place]). Interval History: Patient was last seen: December 13, 2022. Previous INR was 3. Incoming total weekly dose 15 mg. Today's Clinic INR: [facility] INR 3.3. Since last visit, the patient reports no bleeding. The patient did not experience clinically relevant bleeding. The patient did not experience other minor bleeding. Since last visit, the patient has not experienced a thrombotic event. The patient reports a change in medication. The patient stopped or started antibiotics. Patient reports that she had been taking doxycycline for one week; however, infection was not clearing so antibiotic was changed to clindamycin last , December 15, 2022. Patient reports that she was prescribed a 10 day course of antibiotic therapy. She reports no change in alcohol consumption. She reports no change in Vitamin K consumption. The patient has taken Warfarin as directed. Management: The patient's INR is supratherapeutic. Will decrease dose per protocol by approximately 5%. Next follow up appointment in 1 week(s). Patient previously had a POCT appointment scheduled for next Wednesday, December 28, 2022, and prefers to RTC this date. Appointment scheduled per patient's request. Outgoing total weekly dose 13.75 mg. Patient instructed to call in interim with questions, concerns and changes. Patient educated on interactions between medications and warfarin. Patient educated on signs of bleeding/clotting. Discussion/Summary You are currently taking Warfarin. Your tablet strength and color: 2.5 mg (Green) and 5 mg([place]). Next Appointment: Wednesday, December 28, 2022. Time: 10: 45 am. Location: [facility], . Your INR today is higher than your target range, you may be at risk for bleeding. Change your dosing as instructed above. Visit information Please call in interim with questions, concerns and changes. Do tell your provider when you get sick, hurt, or get a cut that will not stop bleeding. Taking a new medication may change your INR. Please inform your provider of any medication changes. If you have any bleeding, trauma, falls and/or other medical concerns, call your doctor or seek medical attention right away. Results/Data Coumadin Printed in Appendix #1 below. *Diagnosis/Problems 1. Paroxysmal atrial fibrillation (427.31) (I48.0) Signatures Electronically signed by : Blanca Christensen R.N.; Dec 20 2022 10:45AM EST (Author) Appendix #1 Coumadin Patient: PAU MUÑOZ; : 1950; [id number] 10:[id number] 01:09CD29Veg2329 10:00YX46Peg4557 10:19HA90Hyu0915 10:23NN33Jfn2714 08:52AM IO PT/INR PT + INR, Plasma PT/INR (POC) Recorded INR Coagulation Screen Current Dose New Dose Recheck in Patient Notified Comments IO INR3.332.42.62.6 PT, INR2.1 Target INR vgleh2-12-04-32-32-3 Normal [employer] Today's INRon 12-20-2022 Today's INR AMS Anticoagulati on [facility] Work Phone: Today's INR 2-3 Anticoagulati on [facility] Work Phone: Anticoagulation Monitoring S erviceon 12-13-2022 Anticoagulation Monitoring Service Today's INR [id number] IO INR3 Target INR range2-3 SourceAMS History of Present Illness Patient identification verified with 2 patient identifiers. Anticoagulation Monitoring Service: [facility]. August 10, 2023. The patient is being seen as a follow-up for anticoagulation monitoring. Target INR 2-3. Monitoring practitioner Ronit Doan DO. Date Warfarin Begun: August 01, 2022. INR monitoring is per [facility] protocol. The patient is on anticoagulation due to atrial fibrillation/flutter. The patient is currently taking warfarin Tablet strength and color: 2.5 mg (Green) 5 mg([place]). Interval History: Patient was last seen: November 29, 2022. Previous INR was 2.4. Incoming total weekly dose 15 mg. Today's Clinic INR: AMS INR 3. Since last visit, the patient reports no bleeding. The patient did not experience clinically relevant bleeding. The patient did not experience other minor bleeding. Since last visit, the patient has not experienced a thrombotic event. The patient reports a change in medication. The patient stopped or started antibiotics. Pt started taking doxycycline 100 mg BID for ten days three days ago. She reports no change in alcohol consumption. She reports no change in Vitamin K consumption. pt is going to increase dietary vitramin K to three more servings the next five days. The patient has taken Warfarin as directed. Management: The patient's INR is within target range. Will maintain dose. The patient is not currently being bridged. Next follow up appointment in 1 week(s). Outgoing total weekly dose 15 mg. Patient instructed to call in interim with questions, concerns and changes. Discussion/Summary You are currently taking Warfarin. Your tablet strength and color: 2.5 mg (Green) and 5 mg([place]). Next Appointment: Tuesday, December 20, 2022. Time: 10: 45 am. Location: [facility], . Your INR today is within range . You will continue to take your dose as instructed above. Visit information Please call in interim with questions, concerns and changes. Do tell your provider when you get sick, hurt, or get a cut that will not stop bleeding. If you have any bleeding, trauma, falls and/or other medical concerns, call your doctor or seek medical attention right away. Results/Data Coumadin Printed in Appendix #1 below. *Diagnosis/Problems 1. Paroxysmal atrial fibrillation (427.31) (I48.0) Signatures Electronically signed by : Leidy Sanchez R.N.; Dec 13 2022 1:08PM EST (Author) Appendix #1 Coumadin Patient: PAU MUÑOZ; : 1950; [id number] 01:[id number] 10:[id number] 10:64HR64Wkf8445 10:03EW32Wcw0534 09:35AF98Icg4513 08:52AM IO PT/INR PT + INR, Plasma PT/INR (POC) Recorded INR Coagulation Screen Current Dose New Dose Recheck in Patient Notified Comments IO INR32.42.62.62.8 PT, INR2.1 Target INR ilqrb0-59-01-32-32-3 Normal [employer] Today's INRon 12-13-2022 Today's INR 2-3 Anticoagulati on [facility] Work Phone: Today's INR AMS Anticoagulati on [facility] Work Phone: Anticoagulation Monitoring S erviceon 11-29-2022 Anticoagulation Monitoring Service Today's INR [id number] IO INR2.4 Target INR range2-3 SourceAMS History of Present Illness Patient identification verified with 2 patient identifiers. Anticoagulation Monitoring Service: [facility]. August 10, 2023. The patient is being seen as a follow-up for anticoagulation monitoring. Target INR 2-3. Monitoring practitioner Ronit Doan DO. Date Warfarin Begun: August 01, 2022. INR monitoring is per [facility] protocol. The patient is on anticoagulation due to atrial fibrillation/flutter. The patient is currently taking warfarin Tablet strength and color: 2.5 mg (Green) 5 mg([place]). Interval History: Patient was last seen: November 15, 2022. Previous INR was 2.6. Incoming total weekly dose 15 mg. Today's Clinic INR: AMS INR 2.4. Since last visit, the patient reports no bleeding. The patient did not experience clinically relevant bleeding. The patient did not experience other minor bleeding. Since last visit, the patient has not experienced a thrombotic event. The patient reports no change in medication. She reports no change in alcohol consumption. She reports no change in Vitamin K consumption. The patient has taken Warfarin as directed. Management: The patient's INR is within target range. Will maintain dose. The patient is not currently being bridged. Next follow up appointment in 4 week(s). Outgoing total weekly dose 15 mg. Patient instructed to call in interim with questions, concerns and changes. Discussion/Summary You are currently taking Warfarin. Your tablet strength and color: 2.5 mg (Green) and 5 mg([place]). Next Appointment: December 27, 2022. Time: 10: 30 am. Location: [facility], . Your INR today is within range . You will continue to take your dose as instructed above. Visit information Please call in interim with questions, concerns and changes. Do tell your provider when you get sick, hurt, or get a cut that will not stop bleeding. If you have any bleeding, trauma, falls and/or other medical concerns, call your doctor or seek medical attention right away. Results/Data Coumadin Printed in Appendix #1 below. *Diagnosis/Problems 1. Paroxysmal atrial fibrillation (427.31) (I48.0) Signatures Electronically signed by : Garret Ace R.N.; Nov 29 2022 10:11AM EST (Author) Appendix #1 Coumadin Patient: PAU MUÑOZ; : 1950; [id number] 10:[id number] 10:[id number] 10:[id number] 09:[id number] 02:72QJ62Tns5020 08:52AM IO PT/INR PT + INR, Plasma PT/INR (POC) Recorded INR Coagulation Screen Current Dose New Dose Recheck in Patient Notified Comments IO INR2.42.62.62.83.3 PT, INR2.1 Target INR ilmtz1-16-78-32-32-3 Normal [employer] Today's INRon 11-29-2022 Today's INR 2-3 Anticoagulati on [facility] Work Phone: Today's INR AMS Anticoagulati on [facility] Work Phone: Anticoagulation Monitoring S erviceon 11-15-2022 Anticoagulation Monitoring Service Today's INR [id number] IO INR2.6 Target INR range2-3 SourceAMS History of Present Illness Patient identification verified with 2 patient identifiers. Anticoagulation Monitoring Service: [facility]. August 10, 2023. The patient is being seen as a follow-up for anticoagulation monitoring. Target INR 2-3. Monitoring practitioner Ronit Doan DO. Date Warfarin Begun: August 01, 2022. INR monitoring is per [facility] protocol. The patient is on anticoagulation due to atrial fibrillation/flutter. The patient is currently taking warfarin Tablet strength and color: 2.5 mg (Green) 5 mg([place]). Interval History: Patient was last seen: November 01, 2022. Previous INR was 2.6. Incoming total weekly dose 15 mg. Today's Clinic INR: AMS INR 2.6. Since last visit, the patient reports no bleeding. The patient did not experience clinically relevant bleeding. The patient did not experience other minor bleeding. Since last visit, the patient has not experienced a thrombotic event. The patient reports no change in medication. She reports no change in alcohol consumption. She reports no change in Vitamin K consumption. The patient has taken Warfarin as directed. Management: The patient's INR is within target range. Will maintain dose. The patient is not currently being bridged. Next follow up appointment in 2 week(s). Outgoing total weekly dose 15 mg. Patient instructed to call in interim with questions, concerns and changes. Discussion/Summary You are currently taking Warfarin. Your tablet strength and color: 2.5 mg (Green) and 5 mg([place]). Next Appointment: Tuesday, November 29, 2022. Time: 10: 15 am. Location: [facility], . Your INR today is within range . You will continue to take your dose as instructed above. Visit information Please call in interim with questions, concerns and changes. Do tell your provider when you get sick, hurt, or get a cut that will not stop bleeding. If you have any bleeding, trauma, falls and/or other medical concerns, call your doctor or seek medical attention right away. Results/Data Coumadin Printed in Appendix #1 below. Signatures Electronically signed by : Keeley Castañeda R.N.; Nov 15 2022 10:16AM EST (Author) Appendix #1 Coumadin Patient: PAU MUÑOZ; : 1950; [id number] 10:[id number] 10:[id number] 09:[id number] 02:[id number] 01:63LT35Cjb0603 08:52AM IO PT/INR PT + INR, Plasma PT/INR (POC) Recorded INR Coagulation Screen Current Dose New Dose Recheck in Patient Notified Comments IO INR2.62.62.83.32.8 PT, INR2.1 Target INR zmehf6-08-76-32-32-3 Normal [employer] Today's INRon 11-15-2022 Today's INR 2-3 Anticoagulati on [facility] Work Phone: Today's INR AMS Anticoagulati on [facility] Work Phone: Anticoagulation Monitoring S finn 11-01-2022 Anticoagulation Monitoring Service Today's INR [id number] IO INR2.6 Target INR range2-3 Source[facility] History of Present Illness Patient identification verified with 2 patient identifiers. Anticoagulation Monitoring Service: [facility]. August 10, 2023. The patient is being seen as a follow-up for anticoagulation monitoring. Target INR 2-3. Monitoring practitioner Ronit Doan DO. Date Warfarin Begun: August 01, 2022. INR monitoring is per [facility] protocol. The patient is on anticoagulation due to atrial fibrillation/flutter. The patient is currently taking warfarin Tablet strength and color: 2.5 mg (Green) 5 mg([place]). Interval History: Patient was last seen: October 26, 2022. Previous INR was 2.8. Incoming total weekly dose 15 mg. Today's Clinic INR: AMS INR 2.6. Since last visit, the patient reports no bleeding. The patient did not experience clinically relevant bleeding. The patient did not experience other minor bleeding. Since last visit, the patient has not experienced a thrombotic event. The patient reports no change in medication. She reports no change in alcohol consumption. She reports no change in Vitamin K consumption. The patient has taken Warfarin as directed. Management: The patient's INR is within target range. Will maintain dose. Next follow up appointment in 2 week(s). Outgoing total weekly dose 15 mg. Patient instructed to call in interim with questions, concerns and changes. Discussion/Summary You are currently taking Warfarin. Your tablet strength and color: 2.5 mg (Green) and 5 mg([place]). Next Appointment: November 15, 2022. Time: 10: 30 am. Location: [facility], . Your INR today is within range . You will continue to take your dose as instructed above. Visit information Please call in interim with questions, concerns and changes. Do tell your provider when you get sick, hurt, or get a cut that will not stop bleeding. If you have any bleeding, trauma, falls and/or other medical concerns, call your doctor or seek medical attention right away. Results/Data Coumadin Printed in Appendix #1 below. *Diagnosis/Problems 1. Paroxysmal atrial fibrillation (427.31) (I48.0) Signatures Electronically signed by : Gage Shaffer R.N.; Nov 01 2022 10:36AM EST (Author) Appendix #1 Coumadin Patient: PAU MUÑOZ; : 1950; [id number] 10:[id number] 09:[id number] 02:73BA48Hyu0694 01:92NG99Emm2413 01:18PM IO PT/INR PT + INR, Plasma PT/INR (POC) Recorded INR Coagulation Screen Current Dose New Dose Recheck in Patient Notified Comments IO INR2.62.83.32.83.9 PT, INR Target INR -45-90-32-32-3 Normal [facility] HEMOGLOBIN A1Con 11-01-2022 Lab Specimen Source Normal [facility], [place] Comment on above: Performed By: #### H BA1E #### [facility] [address] [place] [address] Hemoglobin A1Con 11-01-2022 Glucose [Mass/Vol] 134 mg/dL Normal -[facility] diology-Pa a Work Phone: Comment on above: Performed By: #### H BA1E #### [facility] [address] [place] [address] HbA1c (Bld) [Mass fraction] 6.3 % Abnormal [facility] rma Work Phone: Comment on above: SOURCE: Diagnosis of Diabetes-Adults Non-Diabetic: < or = 5.6% Increased risk for developing diabetes: 5.7-6.4% Diagnostic of diabetes: > or = 6.5%. Monitoring of Diabetes Age (y) Therapeutic Goal (%) Adults: >18 <7.0 Pediatrics: 13-18 <7.5 7-12 <8.0 0- 6 7.5-8.5 [employer]. Diabetes Care 33(S1), May 2009. Result Comment: Diag nosis of Diabetes-Adults Non-Diabetic: < or = 5.6% Increased risk for developing diabetes: 5.7-6.4% Diagnostic of diabetes: > or = 6.5% . Monitoring of Diabetes Age (y) Therapeutic Goal (%) Adults: >18 <7.0 Pediatrics: 13-18 <7.5 7-12 <8.0 0- 6 7.5-8.5 [employer]. Diabetes Care 33(S1), May 2009. Performed By: #### H BA1E #### [facility] [address] [place] [address] Laboratory - Chemistry and C hemistry - challengeon 11-01-2022 TSH Qn 1.77 m[IU]/L See Below MP-Cardiolog y-Pa rma Work Phone: Comment on above: SOURCE: Reference Ra nge: 0.44 - 3.98 TSH testing is performed using different testing methodology at [facility] [facility] than at other [facility]. Direct result comparisons should only be made within the same method. TSH WITH REFLEX TO FREE T4 I F ABNORMALon 11-01-2022 TSH Qn 1.77 m[IU]/L Normal 0.44 - 3.98 [facility] Comment on above: Result Comment: TSH testing is performed using different testing methodology at [facility] than at other [facility]. Direct result comparisons should only be made within the same method. Performed By: #### H BA1E #### [facility] [address] [place] [address] Today's INRon 11-01-2022 Today's INR AMS [facility] Work Phone: Today's INR 2-3 [facility] Work Phone: Anticoagulation Monitoring S erviceon 10-26-2022 Anticoagulation Monitoring Service Today's INR 26Oct2022 IO INR2.8 Target INR range2-3 SourceAMS History of Present Illness Patient identification verified with 2 patient identifiers. Anticoagulation Monitoring Service: [facility]. August 10, 2023. The patient is being seen as a follow-up for anticoagulation monitoring. Target INR 2-3. Monitoring practitioner Ronit Doan DO. Date Warfarin Begun: August 01, 2022. INR monitoring is per AMS protocol. The patient is on anticoagulation due to atrial fibrillation/flutter. The patient is currently taking warfarin Tablet strength and color: 2.5 mg (Green) 5 mg([place]). Interval History: Patient was last seen: October 18, 2022. Previous INR was 3.3. TWD of warfarin was reduced at time of last appointment. Incoming total weekly dose 15 mg. Today's Clinic INR: AMS INR 2.8. Since last visit, the patient reports no bleeding. The patient did not experience clinically relevant bleeding. The patient did not experience other minor bleeding. Since last visit, the patient has not experienced a thrombotic event. The patient reports no change in medication. She reports no change in alcohol consumption. She reports no change in Vitamin K consumption. The patient has taken Warfarin as directed. Management: The patient's INR is within target range. Will maintain dose. Next follow up appointment in 1 week(s). Outgoing total weekly dose 15 mg. Patient instructed to call in interim with questions, concerns and changes. Discussion/Summary You are currently taking Warfarin. Your tablet strength and color: 2.5 mg (Green) and 5 mg([place]). Next Appointment: Tuesday, November 01, 2022. Time: 10: 30 am. Location: [facility], . Your INR today is within range . You will continue to take your dose as instructed above. Visit information Please call in interim with questions, concerns and changes. Do tell your provider when you get sick, hurt, or get a cut that will not stop bleeding. If you have any bleeding, trauma, falls and/or other medical concerns, call your doctor or seek medical attention right away. Results/Data Coumadin Printed in Appendix #1 below. *Diagnosis/Problems 1. Paroxysmal atrial fibrillation (427.31) (I48.0) Signatures Electronically signed by : Blanca Christensen R.N.; Oct 26 2022 9:55AM EST (Author) Appendix #1 Coumadin Patient: PAU MUÑOZ; : 1950; [id number] 09:[id number] 02:[id number] 01:[id number] 01:[id number] 11:45AM IO PT/INR PT + INR, Plasma PT/INR (POC) Recorded INR Coagulation Screen Current Dose New Dose Recheck in Patient Notified Comments IO INR2.83.32.83.93.5 PT, INR Target INR -75-01-32-32-3 Normal [employer] Today's INRon 10-26-2022 Today's INR [facility] Work Phone: Today's INR 2-3 [facility] Work Phone: Anticoagulation Monitoring S erviceon 10-18-2022 Anticoagulation Monitoring Service Today's INR 18Oct2022 IO INR3.3 Target INR range2-3 SourceAMS History of Present Illness Patient identification verified with 2 patient identifiers. Anticoagulation Monitoring Service: [facility]. August 10, 2023. The patient is being seen as a follow-up for anticoagulation monitoring. Target INR 2-3. Monitoring practitioner Ronit Doan DO. Date Warfarin Begun: August 01, 2022. INR monitoring is per [facility] protocol. The patient is on anticoagulation due to atrial fibrillation/flutter. The patient is currently taking warfarin Tablet strength and color: 2.5 mg (Green) 5 mg([place]). Interval History: Patient was last seen: October 11, 2022. Previous INR was 2.8. Incoming total weekly dose 16.25 mg. Today's Clinic INR: AMS INR 3.3. Since last visit, the patient reports no bleeding. The patient did not experience clinically relevant bleeding. The patient did not experience other minor bleeding. Since last visit, the patient has not experienced a thrombotic event. The patient reports no change in medication. She reports no change in alcohol consumption. She reports no change in Vitamin K consumption. The patient has taken Warfarin as directed. Management: Will decrease dose per protocol by approximately 5%. Next follow up appointment in 1 week(s). Outgoing total weekly dose 15 mg. Patient instructed to call in interim with questions, concerns and changes. Patient educated on signs of bleeding/clotting. Discussion/Summary You are currently taking Warfarin. Your tablet strength and color: 2.5 mg (Green) and 5 mg([place]). Next Appointment: Tuesday, October 25, 2022. Time: 1: 15 pm. Location: [facility], . Your INR today is higher than your target range, you may be at risk for bleeding. Change your dosing as instructed above. Visit information Please call in interim with questions, concerns and changes. Do tell your provider when you get sick, hurt, or get a cut that will not stop bleeding. If you have any bleeding, trauma, falls and/or other medical concerns, call your doctor or seek medical attention right away. Results/Data Coumadin Printed in Appendix #1 below. *Diagnosis/Problems 1. Paroxysmal atrial fibrillation (427.31) (I48.0) Signatures Electronically signed by : Leidy Sanchez R.N.; Oct 18 2022 2:27PM EST (Author) Appendix #1 Coumadin Patient: PAU MUÑOZ; : 1950; [id number] 02:[id number] 01:[id number] 01:[id number] 11:[id number] 11:21AM IO PT/INR PT + INR, Plasma PT/INR (POC) Recorded INR Coagulation Screen Current Dose New Dose Recheck in Patient Notified Comments IO INR3.32.83.93.53.4 PT, INR Target INR [id number] Normal [employer] Today's INRon 10-18-2022 Today's INR 2-3 [facility] Work Phone: Today's INR AMS [facility] Work Phone: Falls Screening (Age 18+)on 10-14-2022 Fall risk assessment a) No falls within the last year [facility]Gdvbcqazdj[facility] r[facility] Work Phone: Tobacco use status [facility] b) No CK[facility]Qqqrurhgux-[facility] rma Work Phone: Office Visit (Cardiology)on 10-14-2022 Follow-up visit Diagnoses/Problems Assessed CAD (coronary artery disease) (414.00) (I25.10) Admitted 03/06/21 with SOB/elevated troponin 03/08/21 cardiac cath with moderate non-obstructive dz No current angina On diltazem/statin/Xarelt o/statin-carries SL NTG-follow. Carotid stenosis (433.10) (I65.29) S/P 07/30/21 L CEA On Xarelto /statin 08/2022 carotid duplex with less than 50% stenosis B/L Heart failure with preserved ejection fraction (428.9) (I50.30) Had mild CHF per CXR/BNP on 03/06/21 SW General admit Increased diuretic Added lisnopril for better BP control- No overt signs volume overload per exam Watch salt intake Hypercholesterolemia (272.0) (E78.00) On lmoderate intensity statin-has not tolerated high intensity LDL=56 Hypertension (401.9) (I10) BP OK on current meds Weight loss/Salt restriction Pacemaker (V45.01) (Z95.0) Hz of CHB Follows with EP-saw 02/2022 Paroxysmal atrial fibrillation (427.31) (I48.0) On Xarelto No recent sustained palpitations NSR with V pacing 02/23/22 EKG Short of breath on exertion (786.05) (R06.02) NO current signs of CHF Has chronic lung dz-continue inhaler use High triglycerides (272.1) (E78.1) Pt with CV dz and elevated blood sugar thus start Vascepa Orders High triglycerides Start: Icosapent Ethyl 1 GM Oral Capsule (Vascepa); TAKE 2 CAPSULES TWICE A DAY Patient Instructions Continued weight loss Start Vascepa 2 caps twce daily for TG F/u 6 months Chief Complaint PAU MUÑOZ is being seen for a 6 month follow-up of. Pau is here for her 6.5 month check up for cv dz History of Present IllnessHas has asthma flare up -using inhaler Patient denies any current chest pain//palpitations/lig htheadedness/dizziness /edema Activity limited but walks in her building Active Problems Problems CAD (coronary artery disease) (414.00) (I25.10) Admitted 03/06/21 with SOB/elevated troponin 03/08/21 cardiac cath with moderate non-obstructive dz No current angina On diltazem/statin/Xarelt o/statin-carries SL NTG-follow. Carotid stenosis (433.10) (I65.29) S/P 07/30/21 L CEA On Xarelto /statin 08/2022 carotid duplex with less than 50% stenosis B/L Heart failure with preserved ejection fraction (428.9) (I50.30) Had mild CHF per CXR/BNP on 03/06/21 SW General admit Increased diuretic Added lisnopril for better BP control- No overt signs volume overload per exam Watch salt intake Hypercholesterolemia (272.0) (E78.00) On lmoderate intensity statin-has not tolerated high intensity LDL=56 Hypertension (401.9) (I10) BP OK on current meds Weight loss/Salt restriction Pacemaker (V45.01) (Z95.0) Hz of CHB Follows with EP-saw 02/2022 Paroxysmal atrial fibrillation (427.31) (I48.0) On Xarelto No recent sustained palpitations NSR with V pacing 02/23/22 EKG Short of breath on exertion (786.05) (R06.02) NO current signs of CHF Has chronic lung dz-continue inhaler use Surgical History Problems History of Breast biopsy X2 negative History of Cardiac catheterization [03/09/2021, Dr. Charline Hagen]: Moderate right CAD and diffuse distal LAD disease but no focal stenoses that warrant intervention noted at this time. LVEDP elevated. Patient will need additional diuretics. History of Cardioversion History of Carotid thromboendarterectomy [08/01/2021, Dr. Jaylon Kiser]: Left carotid endarterectomy with patch angioplasty History of Cataract surgery x2 History of Endarterectomy L carotid with patch angioplasty History of Finger surgical procedure [03/01/2022, Dr. Yg López]: Right middle finger A1 linn release History of Hysterectomy total abdominal with removal of both ovaries at 32 y/o, she stopped taking estrogen at 50 History of Pacemaker Placement 2009: [employer] Sensia SEDR01 #[id number] History of Tubal ligation at 27 y/o History of Ventricular Septal Defect Repair [facility] Past Medical History Problems History of Accidental fall (E888.9) (W19.XXXA) Resolved Date: 27 Nov 2018 History of Acute exacerbation of moderate persistent extrinsic asthma (493.02) (J45.41) History of Asthma exacerbation (493.92) (J45.901) History of Asthma flare (493.92) (J45.901) Resolved Date: 16 Jul 2019 History of Asymptomatic postmenopausal state (V49.81) (Z78.0) History of Bacterial skin infection (686.9,041.9) (L08.9,B96.89) History of Body mass index (BMI) of 30.0 to 30.9 in adult (V85.30) (Z68.30) Resolved Date: 21 Jan 2020 History of Body mass index (BMI) of 33.0 to 33.9 in adult (V85.33) (Z68.33) Resolved Date: 21 Jan 2020 History of Body mass index (BMI) of 34.0 to 34.9 in adult (V85.34) (Z68.34) Resolved Date: 22 Jul 2020 History of Body mass index (BMI) of 36.0 to 36.9 in adult (V85.36) (Z68.36) History of Carotid bruit (785.9) (R09.89) History of Carotid bruit (785.9) (R09.89) History of Cellulitis of left ear canal (380.10) (H60.12) History of Class 2 severe obesity w (more content not included)... Normal [employer] Anticoagulation Monitoring S erviceon 10-11-2022 Anticoagulation Monitoring Service Today's INR [id number] IO INR2.8 Target INR range2-3 SourceAMS History of Present Illness Patient identification verified with 2 patient identifiers. Anticoagulation Monitoring Service: [facility]. August 10, 2023. The patient is being seen as a follow-up for anticoagulation monitoring. Target INR 2-3. Monitoring practitioner Ronit Doan DO. Date Warfarin Begun: August 01, 2022. INR monitoring is per [facility] protocol. The patient is on anticoagulation due to atrial fibrillation/flutter. The patient is currently taking warfarin Tablet strength and color: 2.5 mg (Green) 5 mg([place]). Interval History: Patient was last seen: October 04, 2022. Previous INR was 3.9. One dose of warfarin was held and TWD was maintained at time of last appointment. Incoming total weekly dose 16.25 mg. Today's Clinic INR: AMS INR 2.8. Since last visit, the patient reports no bleeding. The patient did not experience clinically relevant bleeding. The patient did not experience other minor bleeding. Since last visit, the patient has not experienced a thrombotic event. The patient reports no change in medication. She reports no change in alcohol consumption. She reports no change in Vitamin K consumption. The patient has taken Warfarin as directed. Management: The patient's INR is within target range. Will maintain dose. Next follow up appointment in 1 week(s). Outgoing total weekly dose 16.25 mg. Patient instructed to call in interim with questions, concerns and changes. Patient educated on signs of bleeding/clotting. Discussion/Summary You are currently taking Warfarin. Your tablet strength and color: 2.5 mg (Green) and 5 mg([place]). Next Appointment: Tuesday, October 18, 2022. Time: Location: [facility], . Your INR today is within range . You will continue to take your dose as instructed above. Visit information Please call in interim with questions, concerns and changes. Do tell your provider when you get sick, hurt, or get a cut that will not stop bleeding. If you have any bleeding, trauma, falls and/or other medical concerns, call your doctor or seek medical attention right away. Results/Data Coumadin Printed in Appendix #1 below. *Diagnosis/Problems 1. Paroxysmal atrial fibrillation (427.31) (I48.0) Signatures Electronically signed by : Blanca Christensen R.N.; Oct 11 2022 1:35PM EST (Author) Appendix #1 Coumadin Patient: PAU MUÑOZ; : 1950; [id number] 01:[id number] 01:[id number] 11:[id number] 11:[id number] 11:25AM IO PT/INR PT + INR, Plasma PT/INR (POC) Recorded INR Coagulation Screen Current Dose New Dose Recheck in Patient Notified Comments IO INR2.83.93.53.42.6 PT, INR Target INR [id number] Normal [employer] Today's INRon 10-11-2022 Today's INR AMS [facility] Work Phone: Today's INR 2-3 [facility] Work Phone: Anticoagulation Monitoring S finn 10-04-2022 Anticoagulation Monitoring Service Today's INR [id number] IO INR3.9 Target INR range2-3 SourceAMS History of Present Illness Patient identification verified with 2 patient identifiers. Anticoagulation Monitoring Service: [facility]. August 10, 2023. The patient is being seen as a follow-up for anticoagulation monitoring. Target INR 2-3. Monitoring practitioner Ronit Doan DO. Date Warfarin Begun: November 01, 2022. INR monitoring is per [facility] protocol. The patient is on anticoagulation due to atrial fibrillation/flutter. The patient is currently taking warfarin Tablet strength and color: 2.5 mg (Green) 5 mg([place]). Interval History: Patient was last seen: September 21, 2022. Previous INR was 3.4. Since last visit, another INR has been reported as 2.7 on 09/24/22. Two doses were held and TWD was reduced at time of last appointment. Incoming total weekly dose 16.25 mg. Today's Clinic INR: [facility] INR 3.9. Since last visit, the patient reports no bleeding. The patient did not experience clinically relevant bleeding. The patient did not experience other minor bleeding. Since last visit, the patient has not experienced a thrombotic event. The patient reports a change in medication. The patient stopped or started steroids. Finished five days ago. She reports no change in alcohol consumption. She reports no change in Vitamin K consumption. The patient has taken Warfarin as directed. Management: The patient's INR is supratherapeutic. Hold 1 dose. Monday10/04/22. Will maintain current dose. The patient is not currently being bridged. Next follow up appointment in 1 week(s). Outgoing total weekly dose 16.25 mg. Patient instructed to call in interim with questions, concerns and changes. Patient educated on signs of bleeding/clotting. Discussion/Summary You are currently taking Warfarin. Your tablet strength and color: 5 mg([place]) and 2.5 mg (Green). Next Appointment: Tuesday, October 11, 2022. Time: 1: 45 pm. Location: [facility], . Your INR today is higher than your target range, you may be at risk for bleeding. Please hold Coumadin/Warfarin dose(s) for 1 day(s). Maintain your dose as you were taking it. Visit information Please call in interim with questions, concerns and changes. Do tell your provider when you get sick, hurt, or get a cut that will not stop bleeding. If you have any bleeding, trauma, falls and/or other medical concerns, call your doctor or seek medical attention right away. Results/Data Coumadin Printed in Appendix #1 below. *Diagnosis/Problems 1. Paroxysmal atrial fibrillation (427.31) (I48.0) Signatures Electronically signed by : Leidy Sanchez R.N.; Oct 04 2022 1:21PM EST (Author) Electronically signed by : Leidy Sanchez R.N.; Oct 04 2022 1:26PM EST (Author) Appendix #1 Coumadin Patient: PAU MUÑOZ; : 1950; [id number] 01:[id number] 11:[id number] 11:[id number] 11:[id number] 11:08AM IO PT/INR PT + INR, Plasma PT/INR (POC) Recorded INR Coagulation Screen Current Dose New Dose Recheck in Patient Notified Comments IO INR3.93.53.42.61.9 PT, INR Target INR -91-08-32-32-3 Normal [employer] Today's INRon 10-04-2022 Today's INR 2-3 Anticoagulati on Monitoring [facility] Work Phone: Today's INR AMS Anticoagulati on [facility] Work Phone: Anticoagulation Monitoring S erviceon 09-27-2022 Anticoagulation Monitoring Service Today's INR [id number] IO INR3.5 Target INR range2-3 SourceAMS History of Present Illness Patient identification verified with 2 patient identifiers. Anticoagulation Monitoring Service: [facility]. August 10, 2023. The patient is being seen as a follow-up for anticoagulation monitoring. Target INR 2-3. Monitoring practitioner Ronit Doan DO. Date Warfarin Begun: August 01, 2022. INR monitoring is per AMS protocol. The patient is on anticoagulation due to atrial fibrillation/flutter. The patient is currently taking warfarin Tablet strength and color: 2.5 mg (Green) 5 mg([place]). Interval History: Patient was last seen: September 21, 2022. Previous INR was 3.4. Since last visit, another INR has been reported as 2.7 on 09/24/22. Two doses were held and TWD was reduced at time of last appointment. Incoming total weekly dose 17.5 mg. Today's Clinic INR: AMS INR 3.5. Since last visit, the patient reports no bleeding. The patient did not experience clinically relevant bleeding. The patient did not experience other minor bleeding. Since last visit, the patient has not experienced a thrombotic event. The patient reports a change in medication. The patient stopped or started steroids. 20mg prednisone BID. 125mg Solumedrol IV one time dose. She reports no change in alcohol consumption. She reports no change in Vitamin K consumption. The patient has taken Warfarin as directed. Management: The patient's INR is supratherapeutic. Hold 1 dose. 09/27/22. Will maintain current dose. The patient is not currently being bridged. Next follow up appointment in 1 week(s). Outgoing total weekly dose 16.25 mg. Patient instructed to call in interim with questions, concerns and changes. Patient educated on signs of bleeding/clotting. Discussion/Summary You are currently taking Warfarin. Your tablet strength and color: 5 mg([place]) and 2.5 mg (Green). Next Appointment: Tuesday, October 04, 2022. Time: 1: 15 pm. Location: [facility], . Your INR today is higher than your target range, you may be at risk for bleeding. Please hold Coumadin/Warfarin dose(s) for 1 day(s). Maintain your dose as you were taking it. Visit information Please call in interim with questions, concerns and changes. Do tell your provider when you get sick, hurt, or get a cut that will not stop bleeding. If you have any bleeding, trauma, falls and/or other medical concerns, call your doctor or seek medical attention right away. Results/Data Coumadin Printed in Appendix #1 below. Signatures Electronically signed by : Keeley Castañeda R.N.; Sep 27 2022 11:51AM EST (Author) Appendix #1 Coumadin Patient: PAU MUÑOZ; : 1950; [id number] 11:[id number] 11:[id number] 11:[id number] 11:[id number] 10:36AM IO PT/INR PT + INR, Plasma PT/INR (POC) Recorded INR Coagulation Screen Current Dose New Dose Recheck in Patient Notified Comments IO INR3.53.42.61.94.3 PT, INR Target INR -79-81-32-32-3 Normal [employer] Today's INRon 09-27-2022 Today's INR 2-3 Anticoagulati on Monitoring [facility] Work Phone: Today's INR AMS Anticoagulati on Monitoring [facility] Work Phone: Anticoagulation Monitoring S erviceon 09-21-2022 Anticoagulation Monitoring Service Today's INR [id number] IO INR3.4 Target INR range2-3 SourceAMS History of Present Illness Patient identification verified with 2 patient identifiers. Anticoagulation Monitoring Service: [facility]. August 10, 2023. The patient is being seen as a follow-up for anticoagulation monitoring. Target INR 2-3. Monitoring practitioner Ronit Doan DO. Date Warfarin Begun: August 01, 2022. INR monitoring is per [facility] protocol. The patient is on anticoagulation due to atrial fibrillation/flutter. The patient is currently taking warfarin Tablet strength and color: 2.5 mg (Green) 5 mg([place]). Interval History: Patient was last seen: September 14, 2022. Previous INR was 2.6. Two doses were held and TWD was reduced at time of last appointment. Incoming total weekly dose 17.5 mg. Today's Clinic INR: [facility] INR 3.4. Since last visit, the patient reports no bleeding. The patient did not experience clinically relevant bleeding. The patient did not experience other minor bleeding. Since last visit, the patient has not experienced a thrombotic event. The patient reports no change in medication. She reports no change in alcohol consumption. She reports no change in Vitamin K consumption. The patient has taken Warfarin as directed. Management: The patient's INR is supratherapeutic. Will decrease dose per protocol by approximately 5%. Outgoing total weekly dose 16.25 mg. Patient instructed to call in interim with questions, concerns and changes. Patient educated on signs of bleeding/clotting. Discussion/Summary You are currently taking Warfarin. Your tablet strength and color: 5 mg([place]) and 2.5 mg (Green). Next Appointment: Wednesday, September 28, 2022. Time: 11: 30 am. Location: [facility], . Your INR today is higher than your target range, you may be at risk for bleeding. Change your dosing as instructed above. Maintain your dose as you were taking it. Visit information Please call in interim with questions, concerns and changes. Do tell your provider when you get sick, hurt, or get a cut that will not stop bleeding. If you have any bleeding, trauma, falls and/or other medical concerns, call your doctor or seek medical attention right away. Results/Data Coumadin Printed in Appendix #1 below. *Diagnosis/Problems 1. Paroxysmal atrial fibrillation (427.31) (I48.0) Signatures Electronically signed by : Liedy Sanchez R.N.; Sep 21 2022 11:27AM EST (Author) Electronically signed by : Leidy Sanchez R.N.; Sep 21 2022 11:31AM EST (Author) Appendix #1 Coumadin Patient: PAU MUÑOZ; : 1950; [id number] 11:[id number] 11:[id number] 11:[id number] 10:[id number] 10:57AM IO PT/INR PT + INR, Plasma PT/INR (POC) Recorded INR Coagulation Screen Current Dose New Dose Recheck in Patient Notified Comments IO INR3.42.61.94.33.6 PT, INR Target INR [id number] Normal Touchworks Today's INRon 09-21-2022 Today's INR 2-3 Anticoagulati on [facility] Work Phone: Today's INR AMS Anticoagulati on [facility] Work Phone: Blood Pressure Cuff Sizeon 0 09-15-2022 Tobacco use status [facility] b) No Formerly [facility], [facility] Work Phone: [facility] Work Phone: Office Visit (Vascular Surge ry)on 09-15-2022 Follow-up visit Diagnoses/Problems Assessed Carotid stenosis (433.10) (I65.29) S/P 07/30/ L CEA On Xarelto /statin 01/2022 carotid duplex with less than 50% stenosis B/L Postoperative carotid endarterectomy surveillance, encounter for (V58.73) (Z48.812) Provider Impressions Patient presents today for evaluation of bilateral lower extremity discoloration in her legs and feet. I did do a left carotid endarterectomy on her back in July of last year. She is doing well from a carotid standpoint. She denies any lower extremity pain or swelling. On physical exam, she does have very tiny petechia involving her ankle area bilaterally. There is no pain on palpation and there is no significant swelling. At this time, I am encouraging her to exercise her lower extremities on a daily basis. A stationary bike I believe would be best for her. She has easily palpable pedal pulses. I do not believe that this is a vascular issue. She will follow-up with me in August of next year with a repeat carotid duplex scan. I told the patient to call me if her lower extremity issue becomes worse Chief Complaint The patient presents to the office today for a routine follow up exam . f/u bilateral discoloration legs and feet. pt stated that she has no pain, swelling and or itching in her legs or feet. History of Present Illness This patient presents today for evaluation of bilateral lower extremity discoloration in legs and feet. She denies any pain denies any itching denies any significant swelling. She has never smoked. She was obese at 5 foot 1 and weighs 186 pounds. I did do a left carotid endarterectomy on her back in July of last year. She currently denies any fever chills nausea vomiting or headache Review of Systems Constitutional: no fever and no chills . Obesity. Psychiatric: no emotional problems. Neurological: no headache, no seizures, no numbness, no syncope and no limb weakness. Eyes: no eye problems. ENT: no throat symptoms and no hoarseness. Cardiovascular: no chest pain and no palpitations . Congestive heart failure, paroxysmal atrial fibrillation, pacemaker, hypertension, hyperlipidemia, complete heart block, CAD. Respiratory: shortness of breath, but no wheezing, no cough and no hemoptysis . Asthma, bronchitis. Gastrointestinal: no abdominal pain, no constipation, no nausea, no diarrhea and no vomiting. Genitourinary: no dysuria and no hematuria. Musculoskeletal: no arthralgias and no myalgias. Endocrine: no endocrine problems. Hematologic/Lymphatic: no lymphadenopathy. Integumentary: no rashes and no skin lesions. Vascular: no claudication, no rest pain, no ulceration and no varicose veins . Carotid artery disease, history of left CEA in July 2021. All other systems have been reviewed and are negative for complaint. As per HPI Active Problems Problems Acute bronchitis (466.0) (J20.9) Acute exacerbation of moderate persistent extrinsic asthma (493.02) (J45.41) Asthma (493.90) (J45.909) Asthma exacerbation (493.92) (J45.901) Asymptomatic postmenopausal state (V49.81) (Z78.0) Bacterial skin infection (686.9,041.9) (L08.9,B96.89) Body mass index (BMI) of 36.0 to 36.9 in adult (V85.36) (Z68.36) CAD (coronary artery disease) (414.00) (I25.10) Admitted 03/06/21 with SOB/elevated troponin 03/08/21 cardiac cath with moderate non-obstructive dz No current angina On diltazem/statin/Xarelt o/statin-carries SL NTG-follow. Carotid bruit (785.9) (R09.89) Check duplex Carotid bruit (785.9) (R09.89) Carotid stenosis (433.10) (I65.29) S/P 07/30/21 L CEA On Xarelto /statin 01/2022 carotid duplex with less than 50% stenosis B/L Cellulitis of left ear canal (380.10) (H60.12) Class 2 severe obesity with body mass index (BMI) of 35 to 39.9 with serious comorbidity (278.01) (E66.01) Complete heart block (426.0) (I44.2) Contusion of left knee, initial encounter (924.11) (S80.02XA) Cough (786.2) (R05.9) COVID-19 vaccine series completed (V87.49) (Z92.29) COVID-19 virus infection (079.89) (U07.1) Coronovirus 2019, PCR [03/10/2020] = DETECTED Dental disease (525.9) (K08.9) Encounter for immunization (V03.89) (Z23) Generalized osteoarthritis of multiple sites (715.09) (M15.9) Heart failure with preserved ejection fraction (428.9) (I50.30) Had mild CHF per CXR/BNP on 03/06/21 SW General admit Increased diuretic Added lisnopril for better BP control- Watch salt intake History of COVID-19 (V12.09) (Z86.16) Hospital discharge follow-up (V67.59) (Z09) Hypercholesterolemia (272.0) (E78.00) On lmoderate intensity statin-has not tolerated high intensity 09/2021 LDL=50,BM=884 Hypertension (401.9) (I10) BP OK on current meds Weight loss/Salt restriction Hypokalemia (276.8) (E87.6) IBS (irritable bowel syndrome) (564.1) (K58.9) Impaired ambulation (719.7) (R26.2) Impaired fasting glucose (790.21) (R73.01) Lumbar strain, initial encounter (847.2) (S39.012A) Medicare annual wellness visit, subsequent (V70.0) (Z (more content not included)... Normal [employer] Anticoagulation Monitoring S erviceon 09-14-2022 Anticoagulation Monitoring Service Today's INR [id number] IO INR2.6 Target INR range2-3 SourceAMS History of Present Illness Patient identification verified with 2 patient identifiers. Anticoagulation Monitoring Service: [facility]. August 10, 2023. The patient is being seen as a follow-up for anticoagulation monitoring. Target INR 2-3. Monitoring practitioner Ronit Doan DO. Date Warfarin Begun: August 01, 2022. INR monitoring is per AMS protocol. The patient is on anticoagulation due to atrial fibrillation/flutter. The patient is currently taking warfarin Tablet strength and color: 5 mg([place]) Interval History: Patient was last seen: September 09, 2022. Previous INR was 1.9. Two doses were held and TWD was reduced at time of last appointment. Incoming total weekly dose 17.5 mg. Today's Clinic INR: AMS INR 2.6. Since last visit, the patient reports no bleeding. The patient did not experience clinically relevant bleeding. The patient did not experience other minor bleeding. Since last visit, the patient has not experienced a thrombotic event. The patient reports no change in medication. She reports no change in alcohol consumption. She reports no change in Vitamin K consumption. The patient has taken Warfarin as directed. Management: The patient's INR is within target range. Will maintain dose. Next follow up appointment in 1 week(s). Outgoing total weekly dose 17.5 mg. Patient instructed to call in interim with questions, concerns and changes. Patient educated on signs of bleeding/clotting. Discussion/Summary You are currently taking Warfarin. Your tablet strength and color: 5 mg([place]) Next Appointment: Wednesday, September 21, 2022. Time: 11: 30 am. Location: [facility], . Your INR today is within range . You will continue to take your dose as instructed above. Maintain your dose as you were taking it. Visit information Please call in interim with questions, concerns and changes. Do tell your provider when you get sick, hurt, or get a cut that will not stop bleeding. If you have any bleeding, trauma, falls and/or other medical concerns, call your doctor or seek medical attention right away. Results/Data Coumadin Printed in Appendix #1 below. *Diagnosis/Problems 1. Paroxysmal atrial fibrillation (427.31) (I48.0) Signatures Electronically signed by : Leidy Sanchez R.N.; Sep 14 2022 11:27AM EST (Author) Appendix #1 Coumadin Patient: PAU MUÑOZ; : 1950; [id number] 11:[id number] 11:[id number] 10:[id number] 10:[id number] 11:25AM IO PT/INR PT + INR, Plasma PT/INR (POC) Recorded INR Coagulation Screen Current Dose New Dose Recheck in Patient Notified Comments IO INR2.61.94.33.64.9 PT, INR Target INR [id number] Normal Touchworks Today's INRon 09-14-2022 Today's INR 2-3 [facility]ly [facility], [facility] Work Phone: Today's [facility]R [facility] Phone: Anticoagulation Monitoring S erviceon 09-09-2022 Anticoagulation Monitoring Service Today's INR [id number] IO INR1.9 Target INR range2-3 SourceAMS History of Present Illness Patient identification verified with 2 patient identifiers. Anticoagulation Monitoring Service: [facility]. August 10, 2023. The patient is being seen as a follow-up for anticoagulation monitoring. Target INR 2-3. Monitoring practitioner Ronit Doan DO. Date Warfarin Begun: August 01, 2022. INR monitoring is per [facility] protocol. The patient is on anticoagulation due to atrial fibrillation/flutter. The patient is currently taking warfarin Tablet strength and color: 5 mg([place]) Interval History: Patient was last seen: September 06, 2022. Previous INR was 4.3. Two doses were held and TWD was reduced at time of last appointment. Incoming total weekly dose 17.5 mg. Today's Clinic INR: AMS INR 1.9. Since last visit, the patient reports no bleeding. The patient did not experience clinically relevant bleeding. The patient did not experience other minor bleeding. Since last visit, the patient has not experienced a thrombotic event. The patient reports no change in medication. She reports no change in alcohol consumption. She reports no change in Vitamin K consumption. The patient has taken Warfarin as directed. Management: The patient's INR is subtherapeutic. Will maintain dose. Next follow up appointment in 3-5 day(s). Outgoing total weekly dose 17.5 mg. Patient instructed to call in interim with questions, concerns and changes. Patient educated on signs of bleeding/clotting. Discussion/Summary You are currently taking Warfarin. Your tablet strength and color: 5 mg([place]) Next Appointment: Wednesday, September 14, 2022. Time: 11: 30 am. Location: [facility], . Your INR today is lower than your target range, you may be at risk for forming blood clots. Maintain your dose as you were taking it. Visit information Please call in interim with questions, concerns and changes. Do tell your provider when you get sick, hurt, or get a cut that will not stop bleeding. If you have any bleeding, trauma, falls and/or other medical concerns, call your doctor or seek medical attention right away. Results/Data Coumadin Printed in Appendix #1 below. *Diagnosis/Problems 1. Paroxysmal atrial fibrillation (427.31) (I48.0) Signatures Electronically signed by : Blanca Christensen R.N.; Sep 09 2022 11:11AM EST (Author) Appendix #1 Coumadin Patient: PAU MUÑOZ; : 1950; [id number] 11:[id number] 10:[id number] 10:[id number] 11:[id number] 10:33AM IO PT/INR PT + INR, Plasma PT/INR (POC) Recorded INR Coagulation Screen Current Dose New Dose Recheck in Patient Notified Comments IO INR1.94.33.64.93.9 PT, INR Target INR [id number] Normal [employer] Today's INRon 09-09-2022 Today's INR AMS Anticoagulati on [facility] Work Phone: Today's INR 2-3 Anticoagulati on [facility] Work Phone: Anticoagulation Monitoring S erviceon 09-06-2022 Anticoagulation Monitoring Service Today's INR [id number] IO INR4.3 Target INR range2-3 SourceAMS History of Present Illness Patient identification verified with 2 patient identifiers. Anticoagulation Monitoring Service: [facility]. August 10, 2023. The patient is being seen as a follow-up for anticoagulation monitoring. Target INR 2-3. Monitoring practitioner Ronit Doan DO. Date Warfarin Begun: August 01, 2022. INR monitoring is per AMS protocol. The patient is on anticoagulation due to atrial fibrillation/flutter. The patient is currently taking warfarin Tablet strength and color: 5 mg([place]) Interval History: Patient was last seen: August 30, 2022. Previous INR was 3.6. One dose of warfarin was held and TWD was reduced at time of last appointment. Incoming total weekly dose 20 mg. Today's Clinic INR: AMS INR 4.3. Since last visit, the patient reports no bleeding. The patient did not experience clinically relevant bleeding. The patient did not experience other minor bleeding. Since last visit, the patient has not experienced a thrombotic event. The patient reports a change in medication. The patient stopped or started OTC and/or herbal medication. Patient reports that she stopped taking BLACK COHOSH one week ago. She reports no change in alcohol consumption. She reports no change in Vitamin K consumption. The patient has taken Warfarin as directed. Management: The patient's INR is supratherapeutic. Hold 2 doses. Will decrease dose per protocol by approximately 15%. Next follow up appointment in 3-5 day(s). Outgoing total weekly dose 17.5 mg. Patient instructed to call in interim with questions, concerns and changes. Patient educated on interactions between medications and warfarin. Patient educated on signs of bleeding/clotting. Discussion/Summary You are currently taking Warfarin. Your tablet strength and color: 5 mg([place]) Please do not take any warfarin today, Monday, September 06, 2022, or tomorrow, Monday, September 07, 2022. Next Appointment: Friday, September 09, 2022. Time: 11: 00 am. Location: [facility], . Your INR today is higher than your target range, you may be at risk for bleeding. Please hold Coumadin/Warfarin dose(s) for 2 day(s). Change your dosing as instructed above. Visit information Please call in interim with questions, concerns and changes. Do tell your provider when you get sick, hurt, or get a cut that will not stop bleeding. Taking a new medication may change your INR. Please inform your provider of any medication changes. If you have any bleeding, trauma, falls and/or other medical concerns, call your doctor or seek medical attention right away. Results/Data Coumadin Printed in Appendix #1 below. *Diagnosis/Problems 1. Paroxysmal atrial fibrillation (427.31) (I48.0) Signatures Electronically signed by : Blanca Christensen R.N.; Sep 06 2022 10:43AM EST (Author) Appendix #1 Coumadin Patient: PAU MUÑOZ; : 1950; [id number] 10:[id number] 10:[id number] 11:[id number] 10:[id number] 03:[id number] 08:52AM IO PT/INR PT + INR, Plasma PT/INR (POC) Recorded INR Coagulation Screen Current Dose New Dose Recheck in Patient Notified Comments IO INR4.33.64.93.92.3 PT, INR2.1 Target INR -06-86-32-32-3 Normal [employer] Today's INRon 09-06-2022 Today's INR AMS Anticoagulati on [facility] Work Phone: Today's INR 2-3 Anticoagulati on [facility] Work Phone: Anticoagulation Monitoring S erviceon 08-30-2022 Anticoagulation Monitoring Service Today's INR [id number] IO INR3.6 Target INR range2-3 SourceAMS History of Present Illness Patient identification verified with 2 patient identifiers. Anticoagulation Monitoring Service: [facility]. August 10, 2023. The patient is being seen as a follow-up for anticoagulation monitoring. Target INR 2-3. Monitoring practitioner Ronit Doan DO. Date Warfarin Begun: August 01, 2022. INR monitoring is per [facility] protocol. The patient is on anticoagulation due to atrial fibrillation/flutter. The patient is currently taking warfarin Tablet strength and color: 5 mg([place]) Interval History: Patient was last seen: August 24, 2022. Previous INR was 4.9. two doses of warfarin was held and TWD was reduced at time of last appointment. Incoming total weekly dose 22.5 mg. Today's Clinic INR: AMS INR 3.6. Since last visit, the patient reports no bleeding. The patient did not experience clinically relevant bleeding. The patient did not experience other minor bleeding. Since last visit, the patient has not experienced a thrombotic event. The patient reports no change in medication. She reports no change in alcohol consumption. She reports no change in Vitamin K consumption. The patient has taken Warfarin as directed. There is no identifiable cause for out of range INR. Management: The patient's INR is supratherapeutic. Hold 1 dose. Will decrease dose per protocol by approximately 10%. Outgoing total weekly dose 20 mg. Patient instructed to call in interim with questions, concerns and changes. Patient educated on signs of bleeding/clotting. Discussion/Summary You are currently taking Warfarin. Your tablet strength and color: 5 mg([place]) Please do not take any warfarin today, Monday, August 24, 2022, or tomorrow, , August 25, 2022. Next Appointment: Tuesday, September 06, 2022. Time: 10: 45 am. Location: [facility], . Your INR today is higher than your target range, you may be at risk for bleeding. Please hold Coumadin/Warfarin dose(s) for 1 day(s). Change your dosing as instructed above. Visit information Please call in interim with questions, concerns and changes. Do tell your provider when you get sick, hurt, or get a cut that will not stop bleeding. If you have any bleeding, trauma, falls and/or other medical concerns, call your doctor or seek medical attention right away. Results/Data Coumadin Printed in Appendix #1 below. *Diagnosis/Problems 1. Paroxysmal atrial fibrillation (427.31) (I48.0) Signatures Electronically signed by : Leidy Sanchez R.N.; Aug 30 2022 11:01AM EST (Author) Electronically signed by : Leidy Sanchez R.N.; Aug 30 2022 11:01AM EST (Author) Appendix #1 Coumadin Patient: PAU MUÑOZ; : 1950; [id number] 10:[id number] 11:[id number] 10:[id number] 03:[id number] 08:[id number] 08:13AM IO PT/INR PT + INR, Plasma PT/INR (POC) Recorded INR Coagulation Screen Current Dose New Dose Recheck in Patient Notified Comments IO INR3.64.93.92.3 PT, INR2.1 4.9 Target INR [id number] Normal [employer] Today's INRon 08-30-2022 Today's INR 2-3 Anticoagulati on [facility] Work Phone: Today's INR AMS Anticoagulati on [facility] Work Phone: Anticoagulation Monitoring S erviceon 08-24-2022 Anticoagulation Monitoring Service Today's INR [id number] IO INR4.9 Target INR range2-3 SourceAMS History of Present Illness Patient identification verified with 2 patient identifiers. Anticoagulation Monitoring Service: [facility]. August 10, 2023. The patient is being seen as a follow-up for anticoagulation monitoring. Target INR 2-3. Monitoring practitioner Ronit Doan DO. Date Warfarin Begun: August 01, 2022. INR monitoring is per [facility] protocol. The patient is on anticoagulation due to atrial fibrillation/flutter. The patient is currently taking warfarin Tablet strength and color: 5 mg([place]) Interval History: Patient was last seen: August 19, 2022. Previous INR was 3.9. One dose of warfarin was held and TWD was reduced at time of last appointment. Incoming total weekly dose 27.5 mg. Today's Clinic INR: [facility] INR 4.9. Since last visit, the patient reports no bleeding. The patient did not experience clinically relevant bleeding. The patient did not experience other minor bleeding. Since last visit, the patient has not experienced a thrombotic event. The patient reports no change in medication. She reports no change in alcohol consumption. She reports no change in Vitamin K consumption. The patient has taken Warfarin as directed. There is no identifiable cause for out of range INR. Management: The patient's INR is supratherapeutic. Hold 2 doses. Will decrease dose per protocol by approximately 15%. Next follow up appointment in 5-7 day(s). Outgoing total weekly dose 22.5 mg. Patient instructed to call in interim with questions, concerns and changes. Patient educated on signs of bleeding/clotting. Discussion/Summary You are currently taking Warfarin. Your tablet strength and color: 5 mg([place]) Please do not take any warfarin today, Monday, August 24, 2022, or tomorrow, , August 25, 2022. Next Appointment: Tuesday, August 30, 2022. Time: 10: 45 am. Location: [facility], . Your INR today is higher than your target range, you may be at risk for bleeding. Please hold Coumadin/Warfarin dose(s) for 2 day(s). Change your dosing as instructed above. Visit information Please call in interim with questions, concerns and changes. Do tell your provider when you get sick, hurt, or get a cut that will not stop bleeding. If you have any bleeding, trauma, falls and/or other medical concerns, call your doctor or seek medical attention right away. Results/Data Coumadin Printed in Appendix #1 below. *Diagnosis/Problems 1. Paroxysmal atrial fibrillation (427.31) (I48.0) Signatures Electronically signed by : Blanca Christensen R.N.; Aug 24 2022 11:36AM EST (Author) Appendix #1 Coumadin Patient: PAU MUÑOZ; : 1950; [id number] 11:[id number] 10:[id number] 03:[id number] 08:[id number] 08:[id number] 08:05AM IO PT/INR PT + INR, Plasma PT/INR (POC) Recorded INR Coagulation Screen Current Dose New Dose Recheck in Patient Notified Comments IO INR4.93.92.3 PT, INR2.1 4.9 1.6 Target INR [id number] Normal [employer] Today's INRon 08-24-2022 Today's INR AMS Anticoagulati on [facility] Work Phone: Today's INR 2-3 Anticoagulati on [facility] Work Phone: Anticoagulation Monitoring S erviceon 08-19-2022 Anticoagulation Monitoring Service Today's INR [id number] IO INR3.9 Target INR range2-3 Source[facility] History of Present Illness Patient identification verified with 2 patient identifiers. Anticoagulation Monitoring Service: [facility]. August 10, 2023. The patient is being seen as a follow-up for anticoagulation monitoring. Target INR 2-3. Monitoring practitioner Ronit Doan DO. Date Warfarin Begun: August 01, 2022. INR monitoring is per [facility] protocol. The patient is on anticoagulation due to atrial fibrillation/flutter. The patient is currently taking warfarin Tablet strength and color: 5 mg([place]) Interval History: Patient was last seen: August 16, 2022. Previous INR was 2.3. Incoming total weekly dose 30 mg. Today's Clinic INR: AMS INR 3.9. Since last visit, the patient reports no bleeding. The patient did not experience clinically relevant bleeding. The patient did not experience other minor bleeding. Since last visit, the patient has not experienced a thrombotic event. The patient reports no change in medication. She reports no change in alcohol consumption. She reports no change in Vitamin K consumption. The patient has taken Warfarin as directed. Management: The patient's INR is supratherapeutic. Hold 1 dose. Will decrease dose per protocol by approximately 10%. Next follow up appointment in 3-5 day(s). Outgoing total weekly dose 27.5 mg. Patient instructed to call in interim with questions, concerns and changes. Patient educated on signs of bleeding/clotting. Discussion/Summary You are currently taking Warfarin. Your tablet strength and color: 5 mg([place]) Please do not take any warfarin today, Monday, August 19, 2022. Next Appointment: Wednesday, August 24, 2022. Time: 11: 30 am. Location: [facility], . Your INR today is higher than your target range, you may be at risk for bleeding. Please hold Coumadin/Warfarin dose(s) for 1 day(s). Change your dosing as instructed above. Visit information Please call in interim with questions, concerns and changes. Do tell your provider when you get sick, hurt, or get a cut that will not stop bleeding. If you have any bleeding, trauma, falls and/or other medical concerns, call your doctor or seek medical attention right away. Results/Data Coumadin Printed in Appendix #1 below. *Diagnosis/Problems 1. Paroxysmal atrial fibrillation (427.31) (I48.0) Signatures Electronically signed by : Blanca Christensen R.N.; Aug 19 2022 10:39AM EST (Author) Appendix #1 Coumadin Patient: LEATHA, PAU; : 1950; [id number] 10:[id number] 03:[id number] 08:[id number] 08:[id number] 08:[id number] 01:14PM IO PT/INR PT + INR, Plasma PT/INR (POC) Recorded INR Coagulation Screen Current Dose New Dose Recheck in Patient Notified Comments IO INR3.92.3 PT, INR2.1 4.9 1.6 1.2 Target INR range2-32-3 Normal [facility] Today's INRon 08-19-2022 Today's INR AMS Anticoagulati on [facility] Work Phone: Today's INR 2-3 Anticoagulati on [facility] Work Phone: Blood Pressure Cuff Sizeon 0 08-18-2022 Tobacco use status [facility] b) No -[facility] Work Phone: Blood Pressure Cuff Size Adult -[facility] Work Phone: Office Visit (Vascular Surge ry)on 08-18-2022 Follow-up visit Diagnoses/Problems Assessed Carotid stenosis (433.10) (I65.29) S/P 07/30/21 L CEA On Xarelto /statin 01/2022 carotid duplex with less than 50% stenosis B/L Orders Stenosis of both external carotid arteries [facility] LAB Carotid Artery Duplex Ultrasound; Status:Hold For - Scheduling,Retrospecti ve Authorization; Requested for:After 10Aug2023; Laterality : Bilateral Provider Impressions This patient presents today for follow-up of her carotid artery disease. She denies any constitutional symptoms associated with her carotid disease. I did do a left carotid endarterectomy on her back in July of last year. Her recent carotid duplex scan shows mild disease bilaterally right greater than left. Overall I am very pleased with her current results. She can follow-up with me in 1 year with a repeat carotid duplex scan. She has never smoked. Chief Complaint The patient presents to the office today for a routine follow up exam . 6mth f/u carotid. 08/08/22. History of Present Illness This patient presents today for follow-up of her carotid artery disease. She currently denies any constitutional symptoms associated with her carotid disease. She has never smoked. She is 5 foot tall and weighs 189 pounds. I did do a left carotid endarterectomy on her back in July of last year. She currently denies any fever chills nausea vomiting or Review of Systems Constitutional: no fever and no chills . Obesity. Psychiatric: no emotional problems. Neurological: no headache, no seizures, no numbness, no syncope and no limb weakness. Eyes: no eye problems. ENT: no throat symptoms and no hoarseness. Cardiovascular: no chest pain and no palpitations . Complete heart block, CAD, heart failure, hypercholesterolemia, hypertension, paroxysmal atrial fibrillation. Respiratory: shortness of breath, but no wheezing, no cough and no hemoptysis. Gastrointestinal: no abdominal pain, no constipation, no nausea, no diarrhea and no vomiting. Genitourinary: no dysuria and no hematuria. Musculoskeletal: no arthralgias and no myalgias . Lumbar spine issues. Endocrine: no endocrine problems. Hematologic/Lymphatic: no lymphadenopathy . Monoclonal gammopathy. Integumentary: no rashes and no skin lesions. Vascular: no claudication, no rest pain, no ulceration and no varicose veins . Carotid artery disease, left CEA 07/2021. All other systems have been reviewed and are negative for complaint. As per HPI *Active Problems Problems Acute bronchitis (466.0) (J20.9) Acute exacerbation of moderate persistent extrinsic asthma (493.02) (J45.41) Asthma (493.90) (J45.909) Asthma exacerbation (493.92) (J45.901) Asymptomatic postmenopausal state (V49.81) (Z78.0) Bacterial skin infection (686.9,041.9) (L08.9,B96.89) Body mass index (BMI) of 36.0 to 36.9 in adult (V85.36) (Z68.36) CAD (coronary artery disease) (414.00) (I25.10) Admitted 03/06/21 with SOB/elevated troponin 03/08/21 cardiac cath with moderate non-obstructive dz No current angina On diltazem/statin/Xarelt o/statin-carries SL NTG-follow. Carotid bruit (785.9) (R09.89) Carotid bruit (785.9) (R09.89) Check duplex Carotid stenosis (433.10) (I65.29) S/P 07/30/21 L CEA On Xarelto /statin 01/2022 carotid duplex with less than 50% stenosis B/L Cellulitis of left ear canal (380.10) (H60.12) Class 2 severe obesity with body mass index (BMI) of 35 to 39.9 with serious comorbidity (278.01) (E66.01) Complete heart block (426.0) (I44.2) Contusion of left knee, initial encounter (924.11) (S80.02XA) Cough (786.2) (R05.9) COVID-19 vaccine series completed (V87.49) (Z92.29) COVID-19 virus infection (079.89) (U07.1) Coronovirus 2019, PCR [03/10/2020] = DETECTED Dental disease (525.9) (K08.9) Encounter for immunization (V03.89) (Z23) Generalized osteoarthritis of multiple sites (715.09) (M15.9) Heart failure with preserved ejection fraction (428.9) (I50.30) Had mild CHF per CXR/BNP on 03/06/21 SW General admit Increased diuretic Added lisnopril for better BP control- Watch salt intake History of COVID-19 (V12.09) (Z86.16) Hospital discharge follow-up (V67.59) (Z09) Hypercholesterolemia (272.0) (E78.00) On lmoderate intensity statin-has not tolerated high intensity 09/2021 LDL=50,UZ=385 Hypertension (401.9) (I10) BP OK on current meds Weight loss/Salt restriction Hypokalemia (276.8) (E87.6) IBS (irritable bowel syndrome) (564.1) (K58.9) Impaired ambulation (719.7) (R26.2) Impaired fasting glucose (790.21) (R73.01) Lumbar strain, initial encounter (847.2) (S39.012A) Medicare annual wellness visit, subsequent (V70.0) (Z00.00) MGUS (monoclonal gammopathy of unknown significance) (273.1) (D47.2) Moderate persistent asthma without complication (493.90) (J45.40) Pacemaker (V45.01) (Z95.0) Hz of CHB Follows with EP-saw 02/2022 Postoperative carotid endarterectomy surveillance, encounter for (V58.73) (Z48.812) Pre-diabetes (790.29) (R73.03) Prophylactic antibioti (more content not included)... Normal [facility] Anticoagulation Monitoring S erviceon 08-16-2022 Anticoagulation Monitoring Service Today's INR [id number] IO INR2.3 Target INR range2-3 [facility] History of Present Illness Patient identification verified with 2 patient identifiers. Anticoagulation Monitoring Service: [facility]. Enrollment/Re-enrollme nt date: August 17, 2023. The patient is being seen as a new patient for anticoagulation monitoring. Target INR 2-3. Monitoring practitioner Ronit Doan DO. Date Warfarin Begun: August 01, 2022. INR monitoring is per [facility] protocol. The patient is on anticoagulation due to atrial fibrillation/flutter. The patient is currently taking warfarin Tablet strength and color: 5 mg([place]) Interval History: Previous INR was 2.1. INR via lab Monday08/13/22 was 2.1. Patient had been on 5 mg daily until 08/11/22. She was taking Xarelto and started warfarin on Monday08/06/22. Incoming total weekly dose 35 mg. pt took 2.5 mg vitamin K on 08/11/22 when evaluated in the ER Today's Clinic INR: [facility] INR 2.3. Since last visit, the patient reports no bleeding. The patient did not experience clinically relevant bleeding. The patient did not experience other minor bleeding. Since last visit, the patient has not experienced a thrombotic event. The patient reports no change in medication. She reports no change in alcohol consumption. She reports no change in Vitamin K consumption. The patient did not take Warfarin as directed. Management: The patient's INR is within target range. Will maintain dose. Next follow up appointment in week(s). Outgoing total weekly dose 30 mg. Discussion/Summary You are currently taking Your tablet strength and color: Next Appointment: Friday, August 19, 2022. Time: 10: 30 am. Location: [facility], . Your INR today is within range . You will continue to take your dose as instructed above. Visit information Please call in interim with questions, concerns and changes. Do tell your provider when you get sick, hurt, or get a cut that will not stop bleeding. If you have any bleeding, trauma, falls and/or other medical concerns, call your doctor or seek medical attention right away. Results/Data Coumadin Printed in Appendix #1 below. *Diagnosis/Problems 1. Paroxysmal atrial fibrillation (427.31) (I48.0) Signatures Electronically signed by : Leidy Sanchez R.N.; Aug 16 2022 3:24PM EST (Author) Appendix #1 Coumadin Patient: PAU MUÑOZ; : 1950; [id number] 03:[id number] 08:[id number] 08:[id number] 08:[id number] 01:[id number] 11:20AM IO PT/INR PT + INR, Plasma PT/INR (POC) Recorded INR Coagulation Screen Current Dose New Dose Recheck in Patient Notified Comments IO INR2.3 PT, INR2.1 4.9 1.6 1.2 1.0 Target INR range2-3 Normal [facility]works CBC AND DIFFERENTIALon 08-16 % AUTOMATED IMMATURE GRAN 0.3 % Normal 0.0 - 0.9 [facility] Comment on above: Result Comment: Ammy ture Granulocyte Count (IG) includes promyelocytes, myelocytes and metamyelocytes but does not include bands. Percent differential counts (%) should be interpreted in the context of the absolute cell counts (cells/L). Performed By: #### C BCDF #### [facility] [address] [place] [address] Basophils (Bld) [#/Vol] 0.07 10*3/uL Normal 0.00 - 0.10 [facility] Comment on above: Performed By: #### C BCDF #### [facility] [address] [place] [address] Basophils/100 WBC (Bld) 0.7 % Normal 0.0 - 2.0 [facility] Comment on above: Performed By: #### C BCDF #### [facility] [address] [place] [address] Eosinophils (Bld) [#/Vol] 0.09 10*3/uL Normal 0.00 - 0.40 [facility] Comment on above: Performed By: #### C BCDF #### [facility] [address] [place] [address] Eosinophils/100 WBC (Bld) 0.9 % Normal 0.0 - 6.0 [facility] Comment on above: Performed By: #### C BCDF #### [facility] [address] [place] [address] Erythrocyte distribution width (RBC) [Ratio] 14.0 % Normal 11.5 - 14.5 [facility] Comment on above: Performed By: #### C BCDF #### [facility] [address] [place] [address] Hematocrit (Bld) [Volume fraction] 43.4 % Normal 36.0 - 46.0 [facility] Comment on above: Performed By: #### C BCDF #### [facility] [address] [place] [address] Hemoglobin (Bld) [Mass/Vol] 14.1 g/dL Normal 12.0 - 16.0 [facility] Comment on above: Performed By: #### C BCDF #### [facility] [address] [place] [address] Lymphocytes (Bld) [#/Vol] 2.59 10*3/uL Normal 0.80 - 3.00 [facility] Comment on above: Performed By: #### C BCDF #### [facility] [address] [place] [address] Lymphocytes/100 WBC (Bld) 25.7 % Normal 13.0 - 44.0 [facility] Comment on above: Performed By: #### C BCDF #### [facility] [address] [place] [address] MCHC (RBC) [Mass/Vol] 32.5 g/dL Normal 32.0 - 36.0 [facility] Comment on above: Performed By: #### C BCDF #### [facility] [address] [place] [address] MCV (RBC) [Entitic vol] 89 fL Normal 80 - 100 [facility] Comment on above: Performed By: #### C BCDF #### [facility] [address] [place] [address] Monocytes (Bld) [#/Vol] 0.60 10*3/uL Normal 0.05 - 0.80 [facility] Comment on above: Performed By: #### C BCDF #### [facility] [address] [place] [address] Monocytes/100 WBC (Bld) 6.0 % Normal 2.0 - 10.0 [facility] Comment on above: Performed By: #### C BCDF #### [facility] [address] [place] [address] Neutrophils (Bld) [#/Vol] 6.68 10*3/uL High 1.60 - 5.50 [facility] Comment on above: Performed By: #### C BCDF #### [facility] [address] [place] [address] Neutrophils/100 WBC (Bld) 66.4 % Normal 40.0 - 80.0 [facility] Comment on above: Performed By: #### C BCDF #### [facility] [address] [place] [address] NUCLEATED RBC 0.0 /100 WBC Normal 0.0-0.0 [facility] Comment on above: Performed By: #### C BCDF #### [facility] [address] [place] [address] Platelets (Bld) [#/Vol] 340 10*3/uL Normal 150 - 450 [facility] Comment on above: Performed By: #### C BCDF #### [facility] [address] [place] [address] RBC 4.88 x10E12/L Normal 4.00 - 5.20 [facility] Comment on above: Performed By: #### C BCDF #### [facility] [address] [place] [address] WBC (Bld) [#/Vol] 10.1 10*3/uL Normal 4.4 - 11.3 [facility] [place] Comment on above: Performed By: #### C BCDF #### [facility] [address] [place] [address] COMPREHENSIVE PANELon 2022 Albumin [Mass/Vol] 4.0 g/dL Normal 3.4 - 5.0 [facility] Comment on above: Performed By: #### H BA1E #### [facility] [address] [place] [address] ALP [Catalytic activity/Vol] 84 U/L Normal 33 - 136 [facility] Comment on above: Performed By: #### H BA1E #### [facility] [address] [place] [address] ALT [Catalytic activity/Vol] 20 U/L Normal 7 - 45 [facility] Comment on above: Result Comment: Luna ents treated with Sulfasalazine may generate falsely decreased results for ALT. Performed By: #### H BA1E #### [facility] [address] [place] [address] Anion gap [Moles/Vol] 14 mmol/L Normal 10 - 20 [facility] Comment on above: Performed By: #### H BA1E #### [facility] [address] [place] [address] AST [Catalytic activity/Vol] 22 U/L Normal 9 - 39 [facility] Comment on above: Performed By: #### H BA1E #### [facility] [address] [place] [address] Bilirubin [Mass/Vol] 0.4 mg/dL Normal 0.0 - 1.2 [facility] Comment on above: Performed By: #### H BA1E #### [facility] [address] [place] [address] Calcium [Mass/Vol] 9.6 mg/dL Normal 8.6 - 10.6 [facility] Comment on above: Performed By: #### H BA1E #### [facility] [address] [place] [address] Chloride [Moles/Vol] 100 mmol/L Normal 98 - 107 [facility] Comment on above: Performed By: #### H BA1E #### [facility] [address] [place] [address] Creatinine [Mass/Vol] 0.88 mg/dL Normal 0.50 - 1.05 [facility] Comment on above: Performed By: #### H BA1E #### [facility] [address] [place] [address] GFR/1.73 sq M.predicted among non-blacks MDRD (S/P/Bld) [Vol rate/Area] 70 mL/min/{1.73_m2} Normal >90 [facility] Comment on above: Result Comment: CALC ULATIONS OF ESTIMATED GFR ARE PERFORMED USING THE 2020 CKD-EPI STUDY REFIT EQUATION WITHOUT THE RACE VARIABLE FOR THE IDMS-TRACEABLE CREATININE METHODS. https://jasn.asnjournals.org/content/early//ASN.5972520 988 Performed By: #### H BA1E #### [facility] [address] [place] [address] Glucose [Mass/Vol] 188 mg/dL High 74 - 99 [facility] Comment on above: Performed By: #### H BA1E #### [facility] [address] [place] [address] HCO3 (Bld) [Moles/Vol] 27 mmol/L Normal 21 - 32 [facility] Comment on above: Performed By: #### H BA1E #### [place] [address] [place] [address] Potassium [Moles/Vol] 4.2 mmol/L Normal 3.5 - 5.3 [facility] Comment on above: Performed By: #### H BA1E #### [facility] [address] [place] [address] Protein [Mass/Vol] 7.4 g/dL Normal 6.4 - 8.2 [facility] Comment on above: Performed By: #### H BA1E #### [facility] [address] [place] [address] Sodium [Moles/Vol] 137 mmol/L Normal 136 - 145 [facility] Comment on above: Performed By: #### H BA1E #### [facility] [address] [place] [address] Urea nitrogen [Mass/Vol] 17 mg/dL Normal 6 - 23 [facility] Comment on above: Performed By: #### H BA1E #### [facility] [address] [place] [address] Complete Blood Count + Diffe austinon 08-16-2022 Basophils/100 WBC (Bld) 0.7 % 0.0 - 2.0 Anticoagulation Monitoring [facility] Work Phone: Erythrocyte distribution width (RBC) [Ratio] 14.0 % See Below Anticoagulation Monitoring [facility] Work Phone: Comment on above: Reference Range: 11. 5 - 14.5 Hematocrit (Bld) [Volume fraction] 43.4 % See Below Anticoagulatio n Monitoring [facility] Work Phone: Comment on above: Reference Range: 36. 0 - 46.0 Hemoglobin (Bld) [Mass/Vol] 14.1 g/dL See Below Anticoagulation Monitoring [facility] Work Phone: Comment on above: Reference Range: 12. 0 - 16.0 Lymphocytes/100 WBC (Bld) 25.7 % See Below Anticoagulation Monitoring [facility] Work Phone: Comment on above: Reference Range: 13. 0 - 44.0 MCHC (RBC) [Mass/Vol] 32.5 g/dL See Below Anticoagulation Monitoring [facility] Work Phone: Comment on above: Reference Range: 32. 0 - 36.0 MCV (RBC) [Entitic vol] 89 fL 80 - 100 Anticoagulation Monitoring [facility] Work Phone: Monocytes/100 WBC (Bld) 6.0 % 2.0 - 10.0 Anticoagulation Monitoring [facility] Work Phone: Neutrophils/100 WBC (Bld) 66.4 % See Below Anticoagulation Monitoring [facility] Phone: Comment on above: Reference Range: 40. 0 - 80.0 Platelets (Bld) [#/Vol] 340 10*3/uL 150 - 450 Anticoagulation Monitoring [facility] Phone: RBC (Bld) [#/Vol] 4.88 {x10E12/L} See Below An ticoagulation Monitoring [facility] Phone: Comment on above: Reference Range: 4.0 0 - 5.20 WBC (Bld) [#/Vol] 10.1 10*3/uL 4.4 - 11.3 Antic oagulation Monitoring [facility] Phone: Complete Blood Count + Differential 0.07 {x10E9/L} See Below Anticoagulation Monitoring [facility] Phone: Comment on above: Reference Range: 0.0 0 - 0.10 Complete Blood Count + Differential 0.09 {x10E9/L} See Below Anticoagulation Monitoring [facility] Phone: Comment on above: Reference Range: 0.0 0 - 0.40 Complete Blood Count + Differential 0.60 {x10E9/L} See Below Anticoagulation Monitoring [facility] Phone: Comment on above: Reference Range: 0.0 5 - 0.80 Complete Blood Count + Differential 2.59 {x10E9/L} See Below Anticoagulation Monitoring [facility] Phone: Comment on above: Reference Range: 0.8 0 - 3.00 Complete Blood Count + Differential 6.68 {x10E9/L} above high threshold See Below Anticoagulation Monitoring [facility] Phone: Comment on above: Reference Range: 1.6 0 - 5.50 Complete Blood Count + Differential 0.9 % 0.0 - 6.0 Anticoagulation Monitoring [facility] Phone: Complete Blood Count + Differential 0.3 % 0.0 - 0.9 Anticoagulation [facility] Work Phone: Comment on above: Immature Granulocyte Count (IG) includes promyelocytes, myelocytes and metamyelocytes but does not include bands. Percent differential counts (%) should be interpreted in the context of the absolute cell counts (cells/L). Complete Blood Count + Differential 0.0 {/100_WBC} 0.0-0.0 Anticoagulation Monitoring [facility] Work Phone: HEMOGLOBIN A1Con 08-16-2022 Glucose [Mass/Vol] 140 mg/dL Normal [facility] Comment on above: Performed By: #### H BA1E #### [facility] [address] [place] [address] HbA1c (Bld) [Mass fraction] 6.5 % Abnormal [facility] Comment on above: Result Comment: Diag nosis of Diabetes-Adults Non-Diabetic: < or = 5.6% Increased risk for developing diabetes: 5.7-6.4% Diagnostic of diabetes: > or = 6.5% . Monitoring of Diabetes Age (y) Therapeutic Goal (%) Adults: >18 <7.0 Pediatrics: 13-18 <7.5 7-12 <8.0 0- 6 7.5-8.5 [place] [employer]. Diabetes Care 33(S1), May 2009. Performed By: #### H BA1E #### [facility] [address] [place] [address] Hemoglobin A1Con 08-16-2022 Glucose [Mass/Vol] 140 mg/dL Antico agulation [facility] Work Phone: HbA1c (Bld) [Mass fraction] 6.5 % Abnormal Anticoagulation Monitoring [facility] Work Phone: Comment on above: Diagnosis of Diabete s-Adults Non-Diabetic: < or = 5.6% Increased risk for developing diabetes: 5.7-6.4% Diagnostic of diabetes: > or = 6.5%. Monitoring of Diabetes Age (y) Therapeutic Goal (%) Adults: >18 <7.0 Pediatrics: 13-18 <7.5 7-12 <8.0 0- 6 7.5-8.5 [place] [employer]. Diabetes Care 33(S1), May 2009. LIPID PANEL (CORONARY RISK 2 )on 08-16-2022 Cholesterol [Mass/Vol] 164 mg/dL Normal 0 - 199 [facility] Comment on above: Result Comment: . AGE DESIRABLE BORDERLINE HIGH HIGH 0-19 Y 0 - 169 170 - 199 >/= 200 20-24 Y 0 - 189 190 - 224 >/= 225 >24 Y 0 - 199 200 - 239 >/= 240 All ranges are based on fasting samples. Specific therapeutic targets will vary based on patient-specific cardiac risk. . Pediatric guidelines reference:Pediatrics 2011, 128(S5). Adult guidelines reference: NCEP ATPIII Guidelines, OSCAR 2001, 258:2486-97 . Venipuncture immediately after or during the administration of Metamizole may lead to falsely low results. Testing should be performed immediately prior to Metamizole dosing. Performed By: #### L IPID #### [facility] [address] [place] [address] Cholesterol in HDL [Mass/Vol] 69.4 mg/dL Normal [facility] Comment on above: Result Comment: . AGE VERY LOW LOW NORMAL HIGH 0-19 Y < 35 < 40 40-45 ---- 20-24 Y ---- < 40 >45 ---- >24 Y ---- < 40 40-60 >60 . Performed By: #### L IPID #### [facility] [address] [place] [address] Cholesterol in LDL [Mass/Vol] 56 mg/dL Normal 0 - 99 [facility] Comment on above: Result Comment: . NEAR BORD AGE DESIRABLE OPTIMAL HIGH HIGH VERY HIGH 0-19 Y 0 - 109 --- 110-129 >/= 130 ---- 20-24 Y 0 - 119 --- 120-159 >/= 160 ---- >24 Y 0 - 99 100-129 130-159 160-189 >/=190 . Performed By: #### L IPID #### [facility] [address] [place] [address] Cholesterol in VLDL [Mass/Vol] 39 mg/dL Normal 0 - 40 [facility] Comment on above: Performed By: #### L IPID #### [facility] [address] [place] [address] Cholesterol.total/Ch olesterol in HDL [Mass ratio] 2.4 {ratio} Normal [facility] Comment on above: Result Comment: REF VALUES DESIRABLE < 3.4 HIGH RISK > 5.0 Performed By: #### L IPID #### [facility] [address] [place] [address] Triglyceride [Mass/Vol] 194 mg/dL High 0 - 149 [facility] Comment on above: Result Comment: . AGE DESIRABLE BORDERLINE HIGH HIGH VERY HIGH 0 D-90 D 19 - 174 ---- ---- ---- 91 D- 9 Y 0 - 74 75 - 99 >/= 100 ---- 10-19 Y 0 - 89 90 - 129 >/= 130 ---- 20-24 Y 0 - 114 115 - 149 >/= 150 ---- >24 Y 0 - 149 150 - 199 200- 499 >/= 500 . Venipuncture immediately after or during the administration of Metamizole may lead to falsely low results. Testing should be performed immediately prior to Metamizole dosing. Performed By: #### L IPID #### [facility] [address] [place] [address] Laboratory - Chemistry and C hemistry - challengeon 08-16-2022 Albumin BCP dye [Mass/Vol] 4.0 g/dL 3.4 - 5.0 Anticoagulation [facility] Work Phone: ALP [Catalytic activity/Vol] 84 U/L 33 - 136 Antico[facility] Work Phone: ALT With P-5'-P [Catalytic activity/Vol] 20 U/L 7 - 45 Anticoagulation Monitoring [facility] Work Phone: Comment on above: Patients treated wit h Sulfasalazine may generate falsely decreased results for ALT. Anion gap [Moles/Vol] 14 mmol/L 10 - 20 Anticoagulation [facility] Work Phone: AST With P-5'-P [Catalytic activity/Vol] 22 U/L 9 - 39 [facility]tico[facility] Work Phone: Bilirubin [Mass/Vol] 0.4 mg/dL 0.0 - 1.2 Anti coagulation [facility] Work Phone: Calcium [Mass/Vol] 9.6 mg/dL 8.6 - 10.6 Antico agulation Monitoring [facility] Work Phone: Chloride [Moles/Vol] 100 mmol/L 98 - 107 Anti coagulation Monitoring [facility] Work Phone: CO2 [Moles/Vol] 27 mmol/L 21 - 32 Anticoagu lation Monitoring [facility] Work Phone: Creatinine [Mass/Vol] 0.88 mg/dL See Below Anticoagulation Monitoring [facility] Work Phone: Comment on above: Reference Range: 0.5 0 - 1.05 Glucose [Mass/Vol] 188 mg/dL above high threshold 74 - 99 Anticoagulation [facility] Work Phone: Potassium [Moles/Vol] 4.2 mmol/L 3.5 - 5.3 Anticoagulation Monitoring [facility] Work Phone: Protein [Mass/Vol] 7.4 g/dL 6.4 - 8.2 Antico agulation Monitoring [facility] Work Phone: Sodium [Moles/Vol] 137 mmol/L 136 - 145 Antico agulation Monitoring [facility] Work Phone: Urea nitrogen [Mass/Vol] 17 mg/dL 6 - 23 Anticoagulation Monitoring [facility] Work Phone: Lipid Panelon 08-16-2022 Cholesterol [Mass/Vol] 164 mg/dL 0 - 199 Anticoagulation Monitoring [facility] Work Phone: Comment on above: . AGE DESIRABLE BORD TESFAYE HIGH HIGH 0-19 Y 0 - 169 170 - 199 >/= 200 20-24 Y 0 - 189 190 - 224 >/= 225 >24 Y 0 - 199 200 - 239 >/= 240 All ranges are based on fasting samples. Specific therapeutic targets will vary based on patient-specific cardiac risk.. Pediatric guidelines reference:Pediatrics 2011, 128(S5). Adult guidelines reference: NCEP ATPIII Guidelines, OSCAR 2001, 258:2486-97. Venipuncture immediately after or during the administration of Metamizole may lead to falsely low results. Testing should be performed immediately prior to Metamizole dosing. Cholesterol in HDL [Mass/Vol] 69.4 mg/dL Anticoagulation Monitoring [facility] Phone: Comment on above: . AGE VERY LOW LOW N ORMAL HIGH 0-19 Y < 35 < 40 40-45 ---- 20- 24 Y ---- < 40 >45 ---- >24 Y ---- < 40 40-60 >60. Cholesterol in LDL [Mass/Vol] 56 mg/dL 0 - 99 Anticoagulation Monitoring [facility] Work Phone: Comment on above: . NEAR BORD AGE MARRY RABLE OPTIMAL HIGH HIGH VERY HIGH 0-19 Y 0 - 109 --- 110-129 >/= 130 ---- 20-24 Y 0 - 119 --- 120-159 >/= 160 ---- >24 Y 0 - 99 100-129 130-159 160-189 >/=190. Cholesterol.total/Ch olesterol in HDL [Mass ratio] 2.4 {ratio} Anticoagulation Monitoring [facility] Phone: Comment on above: REF VALUESDESIRABLE < 3.4HIGH RISK > 5.0 Triglyceride [Mass/Vol] 194 mg/dL above high threshold 0 - 149 Anticoagulation Monitoring [facility] Phone: Comment on above: . AGE DESIRABLE BORD TESFAYE HIGH HIGH VERY HIGH 0 D-90 D 19 - 174 ---- ---- ----91 D- 9 Y 0 - 74 75 - 99 >/= 100 ---- 10-19 Y 0 - 89 90 - 129 >/= 130 ---- 20-24 Y 0 - 114 115 - 149 >/= 150 ---- >24 Y 0 - 149 150 - 199 200- 499 >/= 500. Venipuncture immediately after or during the administration of Metamizole may lead to falsely low results. Testing should be performed immediately prior to Metamizole dosing. Lipid Panel 39 mg/dL 0 - 40 Anticoagulati on [facility] Work Phone: No Panel Informationon 08-16 70 {mL/min/1.73m2} >90 Antico agulation [facility] Work Phone: Comment on above: CALCULATIONS OF GALILEA MATED GFR ARE PERFORMED USING THE 2020 CKD-EPI STUDY REFIT EQUATION WITHOUT THE RACE VARIABLE FOR THE IDMS-TRACEABLE CREATININE METHODS.https://jasn.asnjournals.org/content/early//ASN .[email or web address] OPIATE/OPIOID/BENZO EXTENDED PRESCRIPTION COMPLIANCEon 08-16-2022 6-ACETYLMORPHINE <25 Normal Cutoff <25 [facility] Comment on above: Performed By: #### D SBOP #### [facility] [address] [place] [address] 7-AMINOCLONAZEPAM <25 Normal Cutoff <25 [facility] Comment on above: Performed By: #### D SBOP #### [facility] [address] [place] [address] ALPHA-HYDROXYALPRAZO WEBSTER <25 Normal Cutoff <25 [facility] Comment on above: Performed By: #### D SBOP #### [facility] [address] [place] [address] ALPHA-HYDROXYMIDAZOL AM <25 Normal Cutoff <25 [facility] Comment on above: Performed By: #### D SBOP #### [facility] [address] [place] [address] ALPRAZOLAM <25 Normal Cutoff <25 [facility] Comment on above: Performed By: #### D SBOP #### [facility] [address] [place] [address] CHLORDIAZEPOXIDE <25 Normal Cutoff <25 [facility] Comment on above: Performed By: #### D SBOP #### [facility] [address] [place] [address] CLONAZEPAM <25 Normal Cutoff <25 [facility] Comment on above: Performed By: #### D SBOP #### [facility] [address] [place] [address] CODEINE <50 Normal Cutoff <50 [facility] Comment on above: Performed By: #### D SBOP #### [facility] [address] [place] [address] DIAZEPAM <25 Normal Cutoff <25 [facility] Comment on above: Performed By: #### D SBOP #### [facility] [address] [place] [address] EDDP,U <25 Normal Cutoff <25 [facility] Comment on above: Result Comment: The performance characteristics of the Methadone Confirmation, Urine has been validated by the individual laboratory site where testing is performed. It has not been cleared or approved by the FDA. However the FDA has determined that such clearance or approval is not necessary. Our Laboratory is certified under the Clinical Laboratory Improvement Amendments of 1988 (CLIA) as qualified to perform high complexity clinical laboratory testing. Performed By: #### D SBOP #### [facility] [address] [place] [address] FENTANYL CONFIRM,U <2.5 Normal Cutoff<2.5 [facility] Comment on above: Performed By: #### D SBOP #### [facility] [address] [place] [address] HYDROCODONE <25 Normal Cutoff <25 [facility] Comment on above: Performed By: #### D SBOP #### [facility] [address] [place] [address] HYDROMORPHONE <25 Normal Cutoff <25 [facility] Comment on above: Performed By: #### D SBOP #### [facility] [address] [place] [address] LORAZEPAM <25 Normal Cutoff <25 [facility] Comment on above: Performed By: #### D SBOP #### [facility] [address] [place] [address] METHADONE,U <25 Normal Cutoff <25 [facility] Comment on above: Performed By: #### D SBOP #### [facility] [address] [place] [address] MIDAZOLAM <25 Normal Cutoff <25 [facility] Comment on above: Performed By: #### D SBOP #### [facility] [address] [place] [address] MORPHINE <50 Normal Cutoff <50 [facility] Comment on above: Performed By: #### D SBOP #### [facility] [address] [place] [address] NORDIAZEPAM <25 Normal Cutoff <25 [facility] Comment on above: Performed By: #### D SBOP #### [facility] [address] [place] [address] NORFENTANYL CONFIRM,U <2.5 Normal Cutoff<2.5 [facility] Comment on above: Result Comment: The performance characteristics of the Fentanyl Confirmation, Urine has been validated by the individual laboratory site where testing is performed. It has not been cleared or approved by the FDA. However the FDA has determined that such clearance or approval is not necessary. Our Laboratory is certified under the Clinical Laboratory Improvement Amendments of 1988 (CLIA) as qualified to perform high complexity clinical laboratory testing. Performed By: #### D SBOP #### [facility] [address] [place] [address] NORHYDROCODONE <25 Normal Cutoff <25 [facility] Comment on above: Performed By: #### D SBOP #### [facility] [address] [place] [address] NOROXYCODONE <25 Normal Cutoff <25 [facility] Comment on above: Performed By: #### D SBOP #### [facility] [address] [place] [address] O-DESMETHYLTRAMADOL, U >1000 Abnormal Cutoff <50 [facility] Comment on above: Result Comment: Tram adol metabolite; consistent with use of a drug containing tramadol, such as Ultram. The performance characteristics of the Tramadol Confirmation, Urine has been validated by the individual laboratory site where testing is performed. It has not been cleared or approved by the FDA. However the FDA has determined that such clearance or approval is not necessary. Our Laboratory is certified under the Clinical Laboratory Improvement Amendments of 1988 (CLIA) as qualified to perform high complexity clinical laboratory testing. Performed By: #### D SBOP #### [facility] [address] [place] [address] OXAZEPAM <25 Normal Cutoff <25 [facility] Comment on above: Performed By: #### D SBOP #### [facility] [address] [place] [address] OXYCODONE <25 Normal Cutoff <25 [facility] Comment on above: Performed By: #### D SBOP #### [facility] [address] [place] [address] OXYMORPHONE <25 Normal Cutoff <25 [facility] Comment on above: Result Comment: The performance characteristics of the Opiate Confirmation, Urine has been validated by the individual laboratory site where testing is performed. It has not been cleared or approved by the FDA. However the FDA has determined that such clearance or approval is not necessary. Our Laboratory is certified under the Clinical Laboratory Improvement Amendments of 1988 (CLIA) as qualified to perform high complexity clinical laboratory testing. Performed By: #### D SBOP #### [facility] [address] [place] [address] TEMAZEPAM <25 Normal Cutoff <25 [facility] Comment on above: Result Comment: The performance characteristics of the Benzodiazepine Confirmation, Urine has been validated by the individual laboratory site where testing is performed. It has not been cleared or approved by the FDA. However the FDA has determined that such clearance or approval is not necessary. Our Laboratory is certified under the Clinical Laboratory Improvement Amendments of 1988 (CLIA) as qualified to perform high complexity clinical laboratory testing. Performed By: #### D SBOP #### [facility] [address] [place] [address] TRAMADOL CONFIRM,U >1000 Abnormal Cutoff <50 [facility] Comment on above: Result Comment: Cons istent with use of a drug containing tramadol, such as Ultram. Performed By: #### D SBOP #### [facility] [address] [place] [address] ZOLPIDEM METABOLITE[ZCA] ,U <25 Normal Cutoff <25 [facility] Comment on above: Result Comment: The performance characteristics of the Zolpidem Confirmation, Urine has been validated by the individual laboratory site where testing is performed. It has not been cleared or approved by the FDA. However the FDA has determined that such clearance or approval is not necessary. Our Laboratory is certified under the Clinical Laboratory Improvement Amendments of 1988 (CLIA) as qualified to perform high complexity clinical laboratory testing. Performed By: #### D SBOP #### [facility] [address] [place] [address] ZOLPIDEM,URINE <25 Normal Cutoff <25 [facility] Comment on above: Performed By: #### D SBOP #### [facility] [address] [place] [address] Today's INRon 08-16-2022 Today's INR 2-3 Anticoagulati on [facility] Work Phone: Today's INR AMS Anticoagulati on [facility] Work Phone: HEMOGLOBIN A1Con 08-14-2022 Glucose [Mass/Vol] 143 mg/dL Normal [facility] Comment on above: Performed By: #### H BA1E #### [facility] [address] [place] [address] HbA1c (Bld) [Mass fraction] 6.6 % Abnormal [facility] Comment on above: Result Comment: Diag nosis of Diabetes-Adults Non-Diabetic: < or = 5.6% Increased risk for developing diabetes: 5.7-6.4% Diagnostic of diabetes: > or = 6.5% . Monitoring of Diabetes Age (y) Therapeutic Goal (%) Adults: >18 <7.0 Pediatrics: 13-18 <7.5 7-12 <8.0 0- 6 7.5-8.5 [place] [employer]. Diabetes Care 33(S1), May 2009. Performed By: #### H BA1E #### [facility] [address] [place] [address] PT/INRon 08-14-2022 PT Coag (PPP) [Time] 24.9 s High 9.8 - 13.4 [facility] Comment on above: Performed By: #### H BA1E #### [facility] [address] [place] [address] PT, INR 2.1 High 0.9 - 1.1 [facility] Comment on above: Performed By: #### H BA1E #### [facility] [address] [place] [address] HEMOGLOBIN A1Con 08-13-2022 Lab Specimen Source Normal [facility] [place] Comment on above: Performed By: #### H BA1E #### [facility] [address] [place] [address] Hemoglobin A1Con 08-13-2022 Glucose [Mass/Vol] 143 mg/dL Antico agulation [facility] Work Phone: HbA1c (Bld) [Mass fraction] 6.6 % Abnormal Anticoagulation [facility] Work Phone: Comment on above: SOURCE: Diagnosis of Diabetes-Adults Non-Diabetic: < or = 5.6% Increased risk for developing diabetes: 5.7-6.4% Diagnostic of diabetes: > or = 6.5%. Monitoring of Diabetes Age (y) Therapeutic Goal (%) Adults: >18 <7.0 Pediatrics: 13-18 <7.5 7-12 <8.0 0- 6 7.5-8.5 [employer]. Diabetes Care 33(S1), May 2009. Laboratory - Coagulationon 0 08-13-2022 INR Coag (PPP) [Relative time] 2.1 {INR} above high threshold 0.9 - 1.1 Anticoagulation [facility] Work Phone: PT Coag (PPP) [Time] 24.9 s above high threshold 9.8 - 13.4 Anticoagulation [facility] Work Phone: Comment on above: SOURCE: OPIATE/OPIOID/BENZO EXTENDED PRESCRIPTION COMPLIANCEon 08-12-2022 AMPHETAMINE SCREEN,U Negative Normal NEGATIVE [facility] Comment on above: Result Comment: CUTO FF LEVEL: 500 NG/ML Cross-reactivity has been reported with high concentrations of the following drugs: buproprion, chloroquine, chlorpromazine, ephedrine, mephentermine, fenfluramine, phentermine, phenylpropanolamine, pseudoephedrine, and propranolol. Performed By: #### D SBOP #### [facility] [address] [place] [address] BARBITURATES SCREEN,U Negative Normal NEGATIVE [facility] Comment on above: Result Comment: CUTO FF LEVEL: 200 NG/ML Performed By: #### D SBOP #### [facility] [address] [place] [id number] CANNABINOIDS SCREEN,U Negative Normal NEGATIVE [facility] Comment on above: Result Comment: CUTO FF LEVEL: 50 NG/ML Performed By: #### D SBOP #### [facility] [address] [place] [address] COCAINE METABOLITE SCREEN,U Negative Normal NEGATIVE [facility] Comment on above: Result Comment: CUTO FF LEVEL: 150 NG/ML Performed By: #### D SBOP #### [facility] [address] [place] [address] Creatinine [Mass/Vol] 56.5 mg/dL Normal [facility] Comment on above: Result Comment: A ur ine creatinine result >= 20 mg/dL is considered valid without suspicion of dilution. Samples with results below this range will automatically reflex to specific gravity testing to verify specimen integrity. Performed By: #### D SBOP #### [facility] [address] [place] [address] DRUG SCREEN COMMENT. SEE BELOW Normal [facility] Comment on above: Result Comment: Drug screen results are presumptive and should not be used to assess compliance with prescribed medication. Definitive confirmatory drug testing has been added to this sample for any positive screen result and will be reported separately. . Toxicology screening results are reported qualitatively. The concentration must be greater than or equal to the cutoff to be reported as positive. The concentration at which the screening test can detect an individual drug or metabolite varies. The absence of expected drug(s) and/or drug metabolite(s) may indicate non-compliance, inappropriate timing of specimen collection relative to drug administration, poor drug absorption, diluted/adulterated urine, or limitations of testing. For medical purposes only; not valid for forensic use. . Interpretive questions should be directed to the laboratory medical directors. Performed By: #### D SBOP #### [facility] [address] [place] [address] PCP SCREEN,U Negative Normal NEGATIVE [facility] Comment on above: Result Comment: CUTO FF LEVEL: 25 NG/ML Cross-reactivity has been reported with dextromethorphan. Performed By: #### D SBOP #### [facility] [address] [place] [address] Laboratory - Chemistry and C hemistry - challengeon 08-11-2022 Creatinine (Body fld) [Mass/Vol] 56.5 mg/dL Anticoagulation [facility] Work Phone: Comment on above: A urine creatinine r esult >= 20 mg/dL is considered valid without suspicion of dilution. Samples with results below this range will automatically reflex to specific gravity testing to verify specimen integrity. Laboratory - Coagulationon 0 08-11-2022 INR Coag (PPP) [Relative time] 4.9 {INR} above high threshold 0.9 - 1.1 Anticoagulation [facility] Work Phone: PT Coag (PPP) [Time] 57.9 s Critically abnormal 9.8 - 13.4 Anticoagulation [facility] Work Phone: Comment on above: SOURCE: Laboratory - Drug toxicology on 08-11-2022 1-Hydroxymidazolam Confirm (U) [Mass/Vol] <25 Cutoff <25 [facility]tico[facility] Work Phone: 7-Zdjneswokt-7,5-Dim ethyl-3,3-Diphenylpy rrolidine (EDDP) Confirm (U) [Mass/Vol] <25 Cutoff <25 Anticoagulation [facility] Work Phone: Comment on above: The performance hilda acteristics of the Methadone Confirmation, Urine has been validated by the individual laboratory site where testing is performed. It has not been cleared or approved by the FDA. However the FDA has determined that such clearance or approval is not necessary. Our Laboratory is certified under the Clinical Laboratory Improvement Amendments of 1988 (CLIA) as qualified to perform high complexity clinical laboratory testing. 6-Monoacetylmorphine (6-ROGELIO) Confirm (U) [Mass/Vol] <25 Cutoff <25 Anticoagulation [facility] Work Phone: 7-Aminoclonazepam Confirm (U) [Mass/Vol] <25 Cutoff <25 Anticoagulation Monitoring [facility] Phone: Alpha hydroxyalprazolam Confirm (U) [Mass/Vol] <25 Cutoff <25 Anticoagulation Monitoring [facility] Phone: ALPRAZolam Confirm (U) [Mass/Vol] <25 Cutoff <25 Anticoagulation Monitoring [facility] Phone: Amphetamines Screen Ql (U) Negative NEGATIVE Anticoagulation Monitoring [facility] Phone: Comment on above: CUTOFF LEVEL: 500 NG /ML Cross-reactivity has been reported with high concentrations of the following drugs: buproprion, chloroquine, chlorpromazine, ephedrine, mephentermine, fenfluramine, phentermine, phenylpropanolamine, pseudoephedrine, and propranolol. Barbiturates Screen Ql (U) Negative NEGATIVE [facility] Phone: Comment on above: CUTOFF LEVEL: 200 NG /ML Benzoylecgonine Screen Ql (U) Negative NEGATIVE [facility]ticoagulation [facility] Phone: Comment on above: CUTOFF LEVEL: 150 NG /ML Cannabinoids Screen Ql (U) Negative NEGATIVE Anticoagulation Monitoring [facility] Phone: Comment on above: CUTOFF LEVEL: 50 NG/ ML chlordiazePOXIDE Confirm (U) [Mass/Vol] <25 Cutoff <25 [facility]ticoagulation Monitoring [facility] Phone: clonazePAM Confirm (U) [Mass/Vol] <25 Cutoff <25 Anticoagulation Monitoring [facility] Phone: Codeine Confirm (U) [Mass/Vol] <50 Cutoff <50 Anticoagulation Monitoring [facility] Phone: diazePAM Confirm (U) [Mass/Vol] <25 Cutoff <25 Anticoagulation Monitoring [facility] Phone: fentaNYL Confirm (U) [Mass/Vol] <2.5 Cutoff<2.5 Anticoagulation Monitoring [facility] Phone: HYDROcodone Confirm (U) [Mass/Vol] <25 Cutoff <25 Anticoagulation [facility] Work Phone: HYDROmorphone Confirm (U) [Mass/Vol] <25 Cutoff <25 Anticoagulation [facility] Work Phone: LORazepam Confirm (U) [Mass/Vol] <25 Cutoff <25 Anticoagulation [facility] Work Phone: Methadone Confirm (U) [Mass/Vol] <25 Cutoff <25 Anticoagulation [facility] Work Phone: Midazolam Confirm (U) [Mass/Vol] <25 Cutoff <25 Anticoagulation [facility] Work Phone: Morphine Confirm (U) [Mass/Vol] <50 Cutoff <50 Anticoagulation [facility] Work Phone: Nordiazepam Confirm (U) [Mass/Vol] <25 Cutoff <25 Anticoagulation [facility] Work Phone: Norfentanyl Confirm (U) [Mass/Vol] <2.5 Cutoff<2.5 Anticoagulation [facility] Work Phone: Comment on above: The performance hilda acteristics of the Fentanyl Confirmation, Urine has been validated by the individual laboratory site where testing is performed. It has not been cleared or approved by the FDA. However the FDA has determined that such clearance or approval is not necessary. Our Laboratory is certified under the Clinical Laboratory Improvement Amendments of 1988 (CLIA) as qualified to perform high complexity clinical laboratory testing. Norhydrocodone Confirm (U) [Mass/Vol] <25 Cutoff <25 Anticoagulation [facility] Work Phone: Noroxycodone Confirm (U) [Mass/Vol] <25 Cutoff <25 Anticoagulation [facility] Work Phone: Nortramadol (U) [Mass/Vol] >1000 Abnormal Cutoff <50 Anticoagulation [facility] Work Phone: Comment on above: Tramadol metabolite; consistent with use of a drug containing tramadol, such as Ultram. The performance characteristics of the Tramadol Confirmation, Urine has been validated by the individual laboratory site where testing is performed. It has not been cleared or approved by the FDA. However the FDA has determined that such clearance or approval is not necessary. Our Laboratory is certified under the Clinical Laboratory Improvement Amendments of 1988 (CLIA) as qualified to perform high complexity clinical laboratory testing. Oxazepam Confirm (U) [Mass/Vol] <25 Cutoff <25 Anticoagulation [facility] Work Phone: oxyCODONE Confirm (U) [Mass/Vol] <25 Cutoff <25 Anticoagulation [facility] Work Phone: oxyMORphone Confirm (U) [Mass/Vol] <25 Cutoff <25 [facility] Phone: Comment on above: The performance hilda acteristics of the Opiate Confirmation, Urine has been validated by the individual laboratory site where testing is performed. It has not been cleared or approved by the FDA. However the FDA has determined that such clearance or approval is not necessary. Our Laboratory is certified under the Clinical Laboratory Improvement Amendments of 1988 (CLIA) as qualified to perform high complexity clinical laboratory testing. Phencyclidine Ql (U) Negative NEGATIVE Anti coagulation [facility] Work Phone: Comment on above: CUTOFF LEVEL: 25 NG/ ML Cross-reactivity has been reported with dextromethorphan. Temazepam Confirm (U) [Mass/Vol] <25 Cutoff <25 [facility] Work Phone: Comment on above: The performance hilda acteristics of the Benzodiazepine Confirmation, Urine has been validated by the individual laboratory site where testing is performed. It has not been cleared or approved by the FDA. However the FDA has determined that such clearance or approval is not necessary. Our Laboratory is certified under the Clinical Laboratory Improvement Amendments of 1988 (CLIA) as qualified to perform high complexity clinical laboratory testing. traMADol Confirm (U) [Mass/Vol] >1000 Abnormal Cutoff <50 [facility] [facility] Work Phone: Comment on above: Consistent with use of a drug containing tramadol, such as Ultram. Zolpidem (U) [Mass/Vol] <25 Cutoff <25 [facility] Work Phone: No Panel Informationon 08-11 <25 Cutoff <25 Antico[facility]atio n [facility] Work Phone: Comment on above: The performance hilda acteristics of the Zolpidem Confirmation, Urine has been validated by the individual laboratory site where testing is performed. It has not been cleared or approved by the FDA. However the FDA has determined that such clearance or approval is not necessary. Our Laboratory is certified under the Clinical Laboratory Improvement Amendments of 1988 (CLIA) as qualified to perform high complexity clinical laboratory testing. SEE BELOW [facility]tico[facility] n [facility] Work Phone: Comment on above: Drug screen results are presumptive and should not be used to assess compliance with prescribed medication. Definitive confirmatory drug testing has been added to this sample for any positive screen result and will be reported separately. .Toxicology screening results are reported qualitatively. The concentration must be greater than or equal to the cutoff to be reported as positive. The concentration at which the screening test can detect an individual drug or metabolite varies. The absence of expected drug(s) and/or drug metabolite(s) may indicate non-compliance, inappropriate timing of specimen collection relative to drug administration, poor drug absorption, diluted/adulterated urine, or limitations of testing. For medical purposes only; not valid for forensic use. .Interpretive questions should be directed to the laboratory medical directors. PT/INRon 08-11-2022 PT Coag (PPP) [Time] 57.9 s Critically abnormal 9.8 - 13.4 [facility] Comment on above: Order Comment: BRIAN LOPEZ PGD MD GOODMAN; MD TRAN , 08/11/2022 21:30 Performed By: #### P TINR #### [facility] [address] [place] [address] PT, INR 4.9 High 0.9 - 1.1 [facility] Comment on above: Order Comment: BRIAN GOODMAN; MD TRAN , 08/11/2022 21:30 Performed By: #### P TINR #### [facility] [address] [place] [address] Lab Specimen Source Normal [facility], [place] Comment on above: Order Comment: ANSR SRVC PGD MD GOODMAN; MD TRAN , 08/11/2022 21:30 Performed By: #### P TINR #### [facility] [address] [place] [address] VASC LAB Carotid Artery Dupl ex Ultrasounon 08-08-2022 VAS LAB Carotid Artery Duplex Ultrasoun [place] [address] [employer] [address] and Vascular Lab Report Carotid Artery Duplex Ultrasound Patient Name: PAU Dawood Physician: [id number] Edwin Joseph MD, [facility] Study Date: 08/08/2022 Referring JAYLON KISER Physician: MRN/PID: [id number] PCP: Accession/Order#: [id number] CC Report to: Date of : 1950 Technologist: Emili Rascon RVT Gender: F Technologist 2: Admission Status: Outpatient Location Performed: [facility] Diagnosis/ICD: I65.23-Occlusion and stenosis of bilateral carotid arteries Procedure/CPT: 04216 Cerebrovascular Carotid Duplex scan complete-[id number] CONCLUSIONS: Right Carotid: Findings are consistent with less than 50% stenosis of the right proximal ICA. Laminar flow seen by color Doppler. Right external carotid artery appears patent with no evidence of stenosis. No evidence of hemodynamically significant stenosis of the right common carotid artery. The right vertebral artery is patent with antegrade flow. No evidence of hemodynamically significant stenosis in the right subclavian artery. Left Carotid: Findings are consistent with less than 50% stenosis of the left proximal ICA. Laminar flow seen by color Doppler. Left external carotid artery appears patent with no evidence of stenosis. No evidence of hemodynamically significant stenosis of the left common carotid artery. The left vertebral artery is patent with antegrade flow. No evidence of hemodynamically significant stenosis in the left subclavian artery. Endarterectomy: Patent left carotid endarterectomy site following endarterectomy. Comparison: Compared with study from 02/01/2022, no significant change. Imaging AND Doppler Findings: Right Plaque Morph: The proximal right internal carotid artery demonstrates irregular, calcified and heterogenous plaque. The proximal right common carotid artery demonstrates intimal thickening plaque. The mid right common carotid artery demonstrates intimal thickening plaque. The distal right common carotid artery demonstrates intimal thickening plaque. Left Plaque Morph: The proximal left common carotid artery demonstrates intimal thickening plaque. The mid left common carotid artery demonstrates intimal thickening plaque. The distal left common carotid artery demonstrates intimal thickening plaque. Right Left PSV EDV PSV EDV 105 cm/s CCA P 93 cm/s 71 cm/s CCA D 56 cm/s 85 cm/s 21 cm/s ICA P 32 cm/s 7 cm/s 66 cm/s 16 cm/s ICA M 46 cm/s 14 cm/s 57 cm/s 16 cm/s ICA D 55 cm/s 14 cm/s 111 cm/s ECA 136 cm/s 48 cm/s 10 cm/s Vertebral 53 cm/s 10 cm/s 142 cm/s Subclavian 196 cm/s Right Left ICA/CCA Ratio 1.2 0.6 [id number] Edwin Joseph MD, RPVI Final Normal [facility] CBC AND DIFFERENTIALon 08-06 % AUTOMATED IMMATURE GRAN 0.1 % Normal 0.0 - 0.9 [facility] Comment on above: Result Comment: Ammy ture Granulocyte Count (IG) includes promyelocytes, myelocytes and metamyelocytes but does not include bands. Percent differential counts (%) should be interpreted in the context of the absolute cell counts (cells/L). Performed By: #### C BCDF #### [facility] [address] [place] [address] Basophils (Bld) [#/Vol] 0.05 10*3/uL Normal 0.00 - 0.10 [facility] Comment on above: Performed By: #### C BCDF #### [facility] [address] [place] [address] Basophils/100 WBC (Bld) 0.7 % Normal 0.0 - 2.0 [facility] Comment on above: Performed By: #### C BCDF #### [facility] [address] [place] [address] Eosinophils (Bld) [#/Vol] 0.20 10*3/uL Normal 0.00 - 0.40 [facility] Comment on above: Performed By: #### C BCDF #### [facility] [address] [place] [address] Eosinophils/100 WBC (Bld) 2.8 % Normal 0.0 - 6.0 [facility] Comment on above: Performed By: #### C BCDF #### [facility] [address] [place] [address] Erythrocyte distribution width (RBC) [Ratio] 14.4 % Normal 11.5 - 14.5 [facility] Comment on above: Performed By: #### C BCDF #### [facility] [address] [place] [address] Hematocrit (Bld) [Volume fraction] 44.4 % Normal 36.0 - 46.0 [facility] Comment on above: Performed By: #### C BCDF #### [facility] [address] [place] [address] Hemoglobin (Bld) [Mass/Vol] 14.3 g/dL Normal 12.0 - 16.0 [facility] Comment on above: Performed By: #### C BCDF #### [facility] [address] [place] [address] Lymphocytes (Bld) [#/Vol] 2.25 10*3/uL Normal 0.80 - 3.00 [facility] Comment on above: Performed By: #### C BCDF #### [facility] [address] [place] [address] Lymphocytes/100 WBC (Bld) 31.4 % Normal 13.0 - 44.0 [facility] Comment on above: Performed By: #### C BCDF #### [facility] [address] [place] [address] MCHC (RBC) [Mass/Vol] 32.2 g/dL Normal 32.0 - 36.0 [facility] Comment on above: Performed By: #### C BCDF #### [facility] [address] [place] [address] MCV (RBC) [Entitic vol] 92 fL Normal 80 - 100 [facility] Comment on above: Performed By: #### C BCDF #### [facility] [address] [place] [address] Monocytes (Bld) [#/Vol] 0.64 10*3/uL Normal 0.05 - 0.80 [facility] Comment on above: Performed By: #### C BCDF #### [facility] [address] [place] [address] Monocytes/100 WBC (Bld) 8.9 % Normal 2.0 - 10.0 [facility] Comment on above: Performed By: #### C BCDF #### [facility] [address] [place] [address] Neutrophils (Bld) [#/Vol] 4.01 10*3/uL Normal 1.60 - 5.50 [facility] Comment on above: Performed By: #### C BCDF #### [facility] [address] [place] [address] Neutrophils/100 WBC (Bld) 56.1 % Normal 40.0 - 80.0 [facility] Comment on above: Performed By: #### C BCDF #### [facility] [address] [place] [address] NUCLEATED RBC 0.0 /100 WBC Normal 0.0-0.0 [facility] Comment on above: Performed By: #### C BCDF #### [facility] [address] [place] [address] Platelets (Bld) [#/Vol] 270 10*3/uL Normal 150 - 450 [facility] Comment on above: Performed By: #### C BCDF #### [facility] [address] [place] [address] RBC 4.85 x10E12/L Normal 4.00 - 5.20 [facility] Comment on above: Performed By: #### C BCDF #### [facility] [address] [place] [address] WBC (Bld) [#/Vol] 7.2 10*3/uL Normal 4.4 - 11.3 [facility] Comment on above: Performed By: #### C BCDF #### [facility] [address] [place], [place] Lab Specimen Source Normal [facility], [place] Comment on above: Performed By: #### C BCDF #### [facility] [address] [place] [address] Performed By: #### P TINR #### [facility] [address] [place], [place] Complete Blood Count + Diffe rentialon 08-06-2022 Basophils/100 WBC (Bld) 0.7 % 0.0 - 2.0 [facility] Work Phone: Erythrocyte distribution width (RBC) [Ratio] 14.4 % See Below [facility] Work Phone: Comment on above: Reference Range: 11. 5 - 14.5 Hematocrit (Bld) [Volume fraction] 44.4 % See Below [facility] Work Phone: Comment on above: Reference Range: 36. 0 - 46.0 Hemoglobin (Bld) [Mass/Vol] 14.3 g/dL See Below [facility] Work Phone: Comment on above: Reference Range: 12. 0 - 16.0 Lymphocytes/100 WBC (Bld) 31.4 % See Below [facility] Work Phone: Comment on above: Reference Range: 13. 0 - 44.0 MCHC (RBC) [Mass/Vol] 32.2 g/dL See Below [facility] Work Phone: Comment on above: Reference Range: 32. 0 - 36.0 MCV (RBC) [Entitic vol] 92 fL 80 - 100 [facility] Work Phone: Monocytes/100 WBC (Bld) 8.9 % 2.0 - 10.0 [facility] Work Phone: Neutrophils/100 WBC (Bld) 56.1 % See Below [facility] Work Phone: Comment on above: Reference Range: 40. 0 - 80.0 Platelets (Bld) [#/Vol] 270 10*3/uL 150 - 450 [facility] Work Phone: RBC (Bld) [#/Vol] 4.85 {x10E12/L} See Below [facility] Work Phone: Comment on above: Reference Range: 4.0 0 - 5.20 WBC (Bld) [#/Vol] 7.2 10*3/uL 4.4 - 11.3 [facility] Work Phone: Comment on above: SOURCE: Complete Blood Count + Differential 0.05 {x10E9/L} See Below [facility] Work Phone: Comment on above: Reference Range: 0.0 0 - 0.10 Complete Blood Count + Differential 0.20 {x10E9/L} See Below [facility] Work Phone: Comment on above: Reference Range: 0.0 0 - 0.40 Complete Blood Count + Differential 0.64 {x10E9/L} See Below [facility] Work Phone: Comment on above: Reference Range: 0.0 5 - 0.80 Complete Blood Count + Differential 2.25 {x10E9/L} See Below [facility] Work Phone: Comment on above: Reference Range: 0.8 0 - 3.00 Complete Blood Count + Differential 4.01 {x10E9/L} See Below [facility] Work Phone: Comment on above: Reference Range: 1.6 0 - 5.50 Complete Blood Count + Differential 2.8 % 0.0 - 6.0 [facility] Work Phone: Complete Blood Count + Differential 0.1 % 0.0 - 0.9 [facility] Work Phone: Comment on above: Immature Granulocyte Count (IG) includes promyelocytes, myelocytes and metamyelocytes but does not include bands. Percent differential counts (%) should be interpreted in the context of the absolute cell counts (cells/L). Complete Blood Count + Differential 0.0 {/100_WBC} 0.0-0.0 [facility] Work Phone: Laboratory - Coagulationon 0 08-06-2022 INR Coag (PPP) [Relative time] 1.6 {INR} above high threshold 0.9 - 1.1 [facility] Work Phone: PT Coag (PPP) [Time] 19.1 s above high threshold 9.8 - 13.4 [facility] Work Phone: Comment on above: SOURCE: PT/INRon 08-06-2022 PT Coag (PPP) [Time] 19.1 s High 9.8 - 13.4 [facility] Comment on above: Performed By: #### P TINR #### [facility] [address] [place] [address] PT, INR 1.6 High 0.9 - 1.1 [facility] Comment on above: Performed By: #### P TINR #### [facility] [address] [place] [address] Office Visiton 06-29-2022 Follow-up visit Diagnoses/Problems Asthma exacerbation (493.92) (J45.901) Orders Asthma exacerbation Start: Doxycycline Hyclate 100 MG Oral Capsule; TAKE 1 CAPSULE EVERY 12 HOURS DAILY Start: predniSONE 10 MG Oral Tablet; Take 3 pills at one time once a day for 4 days in a row. Take in the mornings with food Patient Discussion/Summary Take prednisone, three tabs at one time with food for 4 days in a row. Also take doxycycline twice a day for 5 days in a row. I agree with penicillin before the procedure. Provider Impressions 1. Acute pharyngitis 2. Acute asthma exacerbation: Prednisone 30 mg a day for 4 days in a row and also doxycycline 100 mg twice daily for 5 days in a row. I also advised her to use nasal saline rinses as this may help some with mucus in her throat. He does have Xopenex inhaler to use as needed and she is still using her maintenance inhalers. It is okay for her to use the penicillin 30 minutes before her procedure. She has a prescription for this. She should keep her next scheduled visit with me. Chief Complaint Follow up appointment. AC History of Present Illnesscough and bad sore throat sore throat began 4 days ago no nasal congestion says "sometimes I feel i have a mucus plug in the back of my throat" and feels she can't breathe until she coughs it up she denies new sob her sore throat and cough are bothering her She has not been having any fevers or chills she has not been taking anything otc except some cough syrup she has an appointment on Monday for oral surgery to have two incisors and a molar. 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 Active Problems Acute bronchitis (466.0) (J20.9) Acute exacerbation of moderate persistent extrinsic asthma (493.02) (J45.41) Asthma (493.90) (J45.909) Asthma exacerbation (493.92) (J45.901) Asymptomatic postmenopausal state (V49.81) (Z78.0) Bacterial skin infection (686.9,041.9) (L08.9,B96.89) Body mass index (BMI) of 36.0 to 36.9 in adult (V85.36) (Z68.36) CAD (coronary artery disease) (414.00) (I25.10) Admitted 03/06/21 with SOB/elevated troponin 03/08/21 cardiac cath with moderate non-obstructive dz No current angina On diltazem/statin/Xarelt o/statin-carries SL NTG-follow. Carotid bruit (785.9) (R09.89) Carotid bruit (785.9) (R09.89) Check duplex Carotid stenosis (433.10) (I65.29) S/P 07/30/21 L CEA On Xarelto /statin 01/2022 carotid duplex with less than 50% stenosis B/L Cellulitis of left ear canal (380.10) (H60.12) Class 2 severe obesity with body mass index (BMI) of 35 to 39.9 with serious comorbidity (278.01) (E66.01) Contusion of left knee, initial encounter (924.11) (S80.02XA) Cough (786.2) (R05.9) COVID-19 vaccine series completed (V87.49) (Z92.29) COVID-19 virus infection (079.89) (U07.1) Coronovirus 2019, PCR [03/10/2020] = DETECTED Dental disease (525.9) (K08.9) Encounter for immunization (V03.89) (Z23) Generalized osteoarthritis of multiple sites (715.09) (M15.9) Heart failure with preserved ejection fraction (428.9) (I50.30) Had mild CHF per CXR/BNP on 03/06/21 SW General admit Increased diuretic Added lisnopril for better BP control- Watch salt intake History of COVID-19 (V12.09) (Z86.16) Hospital discharge follow-up (V67.59) (Z09) Hypercholesterolemia (272.0) (E78.00) On lmoderate intensity statin-has not tolerated high intensity 09/2021 LDL=50,LQ=186 Hypertension (401.9) (I10) BP OK on current meds Weight loss/Salt restriction Hypokalemia (276.8) (E87.6) IBS (irritable bowel syndrome) (564.1) (K58.9) Impaired ambulation (719.7) (R26.2) Impaired fasting glucose (790.21) (R73.01) Lumbar strain, initial encounter (847.2) (S39.012A) Medicare annual wellness visit, subsequent (V70.0) (Z00.00) MGUS (monoclonal gammopathy of unknown significance) (273.1) (D47.2) Moderate persistent asthma without complication (493.90) (J45.40) Pacemaker (V45.01) (Z95.0) Hz of CHB Follows with EP-saw 02/2022 Paroxysmal atrial fibrillation (427.31) (I48.0) On Xarelto No recent sustained palpitations NSR with V pacing 02/23/22 EKG Postoperative carotid endarterectomy surveillance, encounter for (V58.73) (Z48.812) Pre-diabetes (790.29) (R73.03) Prophylactic antibiotic (V58.62) (Z79.2) Short of breath on exertion (786.05) (R06.02) NO current signs of CHF Has chronic lung dz-continue inhaler use Stenosis of left carotid artery (433.10) (I65.22) Trigger finger, left index finger (727.03) (M65.322) Trigger finger, right middle finger (727.03) (M65.331) Visit for screening mammogram (V76.12) (Z12.31) Past Medical History History of Accidental fall (E888.9) (W19.XXXA) Resolved Date: 27 Nov 2018 History of Asthma flare (493.92) (J45.901) Resolved Date: 16 Jul 2019 (more content not included)... Normal [facility] Chart Updateon 06-26-2022 Chart Update Orders Generalized osteoarthritis of multiple sites Renew: traMADol HCl - 50 MG Oral Tablet; ONE TABLET AT NIGHT NEEDED FOR PAIN Rx By: Ronit Doan; Dispense: 90 Days ; #:90 Tablet; Refill: 0;For: Generalized osteoarthritis of multiple sites; MELINDA = N;Creating [facility] Digital Signature Chart Update Patient requesting refill of tramadol . I personally viewed the [place] for this patient and there was no concern for abuse, addiction , misuse or diversion. OARRS report was digitally uploaded into the patient's chart. Refill was electronically sent today for #90 tabs; she has been takiing one nightly as needed for pain. Signatures Electronically signed by : Ronit Doan DO; Jun 26 2022 10:09AM EST (Author) Normal [facility] BONE DENSITY, DEXA 1 OR MORE SITES: AXIAL SKELETONon 06-06-2022 BONE DENSITY, DEXA 1 OR MORE SITES: AXIAL SKELETON Name: PAU MUÑOZ Date: 1950 Height: 60.0 in. Gender: Female Exam Date: 06/06/2022 Weight: 185.0 lbs. Indications: asymptomatic age-related postmenopausal state, History of Fracture (Adult) Fractures: Electronically signed by: YOVANY SARMIENTO MD Treatments: Electronically signed by: YOVANY SARMIENTO MD LEFT FEMUR - TOTAL The bone mineral density : 0.938 g/cm2 T-score : -0.6 % of young normal mean :93 % Z-score : 1.0 % of age matched mean : 116 % % change vs. Previous : % change vs. Baseline : *Indicates significant change based on 95% confidence interval. LEFT FEMUR - NECK The bone mineral density : 0.758 g/cm2 T-score : -2.0 % of young normal mean: 73 % Z-score : -0.2 % of age matched mean : 96 % % change vs. Previous : % change vs. Baseline : *Indicates significant change based on 95% confidence interval. SPINE L1-L4 (L3) The bone mineral density is 1.180 g/cm2 T-score : 0.0 % of young normal mean is 100 % Z-score : 1.7 % of age matched mean is 121 % % change vs. Previous : % change vs. Baseline : *Indicates significant change based on 95% confidence interval. World Health Organization (WHO) criteria for post-menopausal, Women: Normal: T-score at or above -1 SD Osteopenia: T-score between -1 and -2.5 SD Osteoporosis: T-score at or below -2.5 SD 10-Year Fracture Risk: Major Osteoporotic Fracture 17.9 % Hip Fracture 3.6 % Reported Risk Factors History of Fracture (Adult) Interpretation: According to World Health Organization criteria, classification low bone mass (osteopenia). Followup recommended on May 2024 or sooner as clinically warranted. Electronically signed by: YOVANY SARMIENTO MD Normal [facility] Mamm - Screening Mammogram w / Tomosynthesison 06-06-2022 MG Breast Screening FINAL REPORT Interpreted by: JENNA SU LOUISE, MD 06/08/22 14:33 Patient Name: PAU MUÑOZ STUDY: DIGITAL MAMM SCREENING W/ JOHN; 06/06/2022 1:35 pm ACCESSION NUMBER(S): [id number] ORDERING CLINICIAN: RONIT DOAN INDICATION: Normal [facility] Work Phone: Xray Bone Density, Dexa 1 or More Siteson 06-06-2022 DXA Bone [Mass/Area] Bone density FINAL REPORT Interpreted by: YOVANY SARMIENTO MD 06/08/22 10:50 Name: PAU MUÑOZ Date: 1950 Height: 60.0 in. Gender: Female Exam Date: 06/06/2022 Weight: 185.0 lbs. Indications: asymptomatic age-r Normal [facility] Work Phone: Office Visiton 05-26-2022 Follow-up visit Diagnoses/Problems Generalized osteoarthritis of multiple sites (715.09) (M15.9) Class 2 severe obesity with body mass index (BMI) of 35 to 39.9 with serious comorbidity (278.01) (E66.01) Heart failure with preserved ejection fraction (428.9) (I50.30) Had mild CHF per CXR/BNP on 03/06/21 SW General admit Increased diuretic Added lisnopril for better BP control- Watch salt intake Body mass index (BMI) of 36.0 to 36.9 in adult (V85.36) (Z68.36) Orders Asthma Renew: Pulmicort Flexhaler 90 MCG/ACT Inhalation Aerosol Powder Breath Activated; INHALE 2 PUFFS, BY MOUTH, TWICE DAILY. RINSE MOUTH AFTER USE Generalized osteoarthritis of multiple sites Start: traMADol HCl - 50 MG Oral Tablet; ONE TABLET AT NIGHT NEEDED FOR PAIN Patient Discussion/Summary Your exam was normal today. Try taking Ultram ( tramadol) one at night as needed for sleep. Keep your next appointment with me in August. Provider Impressions 1. Vaginal bleeding: There is no clear source of the vaginal bleeding. She was reassured by this. If she has any further episodes we can refer her to colonoscopy and possibly urology. She should remain on her Xarelto. #2 arthropathy of multiple sites: She wanted something extra to take besides Tylenol for when her joint pain bothers her. It is getting more difficult for her to sleep and she would especially like something for this. I reviewed her [place]AR[place] report and there is no concern for abuse or diversion of controlled substances. Rx was submitted for tramadol 50 mg #30 tablets. One at night as needed for sleep. At her next visit we can complete controlled substance agreement and do urine drug screen. Patient that these could be habit-forming and sedating. 3. Atrial fibrillation: She remains on Xarelto 20 mg daily and also diltiazem and is followed by cardiology. 4. Heart failure with preserved ejection fraction: She remains on lisinopril and furosemide and she appears stable. 5. Class II obesity with BMI of 36 and comorbid condition of heart failure. She works at remaining active. See me again in August. Chief Complaint ER follow up. AC History of Present Illnessshe went to the ER on 05/20/2022 she says she woke up at 6 am that morning and she saw that there was blood on her underpants she was concerned because she is on xarelto she did not have any pelvic pain Her CBC in the ER was normal She says that the ER physician did a rectal exam and told her that was normal. She was advised to follow-up with me. she had a hysterectomy 40 years ago has not been sexually active in some time she also has left neck and shoulder pain she has trouble getting comfortable to fall asleep laying the wrong way will wake her up She did mention she has been diagnosed with osteoarthritis. Review of Systems Denies headache Denies chest pain Denies shortness of breath Denies any palpitations. Active Problems Acute bronchitis (466.0) (J20.9) Acute exacerbation of moderate persistent extrinsic asthma (493.02) (J45.41) Asthma (493.90) (J45.909) Asthma exacerbation (493.92) (J45.901) Asymptomatic postmenopausal state (V49.81) (Z78.0) Bacterial skin infection (686.9,041.9) (L08.9,B96.89) Body mass index (BMI) of 36.0 to 36.9 in adult (V85.36) (Z68.36) CAD (coronary artery disease) (414.00) (I25.10) Admitted 03/06/21 with SOB/elevated troponin 03/08/21 cardiac cath with moderate non-obstructive dz No current angina On diltazem/statin/Xarelt o/statin-carries SL NTG-follow. Carotid bruit (785.9) (R09.89) Check duplex Carotid bruit (785.9) (R09.89) Carotid stenosis (433.10) (I65.29) S/P 07/30/21 L CEA On Xarelto /statin 01/2022 carotid duplex with less than 50% stenosis B/L Cellulitis of left ear canal (380.10) (H60.12) Class 2 severe obesity with body mass index (BMI) of 35 to 39.9 with serious comorbidity (278.01) (E66.01) Contusion of left knee, initial encounter (924.11) (S80.02XA) Cough (786.2) (R05.9) COVID-19 vaccine series completed (V87.49) (Z92.29) COVID-19 virus infection (079.89) (U07.1) Coronovirus 2019, PCR [03/10/2020] = DETECTED Dental disease (525.9) (K08.9) Encounter for immunization (V03.89) (Z23) Heart failure with preserved ejection fraction (428.9) (I50.30) Had mild CHF per CXR/BNP on 03/06/21 SW General admit Increased diuretic Added lisnopril for better BP control- Watch salt intake History of COVID-19 (V12.09) (Z86.16) Hospital discharge follow-up (V67.59) (Z09) Hypercholesterolemia (272.0) (E78.00) On lmoderate intensity statin-has not tolerated high intensity 09/2021 LDL=50,WV=853 Hypertension (401.9) (I10) BP OK on current meds Weight loss/Salt restriction Hypokalemia (276.8) (E87.6) IBS (irritable bowel syndrome) (564.1) (K58.9) Impaired ambulation (719.7) (R26.2) Impaired fasting glucose (790.21) (R73.01) Lumbar strain, initial encounter (847.2) (S39.012A) Medicare annual wellness visit, subsequent (V70.0) (Z00.00) MGUS (more content not included)... Normal [facility] PHQ-2 VITALSon 05-26-2022 Adult depression screening assessment No [facility] Work Phone: Medicare Annual Wellness Vis iton 04-14-2022 Medicare Annual Wellness Visit *Chief Complaint Wellness exam. AC Adult Risk Screening Single alcohol screening question: In the past year the patient has had 5 or more drinks (men) or 4 or more drinks (women)? 0 time(s). History of Present Illness The patient is being seen for the subsequent annual wellness visit. Past Medical, Surgical and Family History: reviewed and updated in chart. Interval History: Patient has not been hospitalized previously. Medications and Supplements: Review of all medications by a prescribing practitioner or clinical pharmacist (such as prescriptions, OTCs, herbal therapies and supplements) documented in the medical record. No, the patient is not using opioids. Patient Self Assessment of Health Status: good. Tobacco use: Non-User Alcohol use: Non-User Illicit drug use: Non-User Current diet: well balanced diet, does consume adequate fluids and does not consume caffeine. Exercise Frequency: infrequently. Depression/Suicide Screening: . During the past 2 weeks, the patient has not felt down, depressed or hopeless. During the past 2 weeks, the patient has not felt little interest or pleasure in doing things. Hearing Impairment: Patient has significant hearing impairment, bilaterally, She uses a hearing aid. Cognitive Impairment: No cognitive impairment observed. Bathing: performs independently. Dressing: performs independently. Walking: performs independently. Managing Finances: performs independently. Shopping: performs independently. Managing Medications: performs independently. Housework / Basic Home Maintenance: performs independently. Falls Risk Screening:. PAU has not fallen in the last 6 months. Home safety risk factors: none. Advance directives:. Advance Care Planning discussed and documented in the medical record, patient did not wish or was not able to name a surrogate decision maker or provide an advance care plan. Patient has no living will. Patient has no healthcare POA. Patient's End of Life Decisions: I agree to follow the patient's decisions. Concerns with the patient's end of life decisions: Pt expresses desire to be full code. She is here for her annual Medicare wellness visit. went to ER on 04/03/22 she had been feeling sick for 24 hours before going to er COVID, RSV were neg she does note that she went to a wedding, but has had other occasions where people are sic, still having some sob mild expectoration her temp was never over 100.4 she is still using pulmicort and xoponex aoids caffiene due to palps and also breast cysts she has been walking for exercise 5 times around her building is a mile she visits family, goes to [employer] a lot *Active Problems Acute bronchitis (466.0) (J20.9) Asthma (493.90) (J45.909) Asthma exacerbation (493.92) (J45.901) Asymptomatic postmenopausal state (V49.81) (Z78.0) Bacterial skin infection (686.9,041.9) (L08.9,B96.89) Body mass index (BMI) of 36.0 to 36.9 in adult (V85.36) (Z68.36) CAD (coronary artery disease) (414.00) (I25.10) Admitted 03/06/21 with SOB/elevated troponin 03/08/21 cardiac cath with moderate non-obstructive dz No current angina On diltazem/statin/Xarelt o/statin-carries SL NTG-follow. Carotid bruit (785.9) (R09.89) Check duplex Carotid bruit (785.9) (R09.89) Carotid stenosis (433.10) (I65.29) S/P 07/30/21 L CEA On Xarelto /statin 01/2022 carotid duplex with less than 50% stenosis B/L Cellulitis of left ear canal (380.10) (H60.12) Class 2 severe obesity with body mass index (BMI) of 35 to 39.9 with serious comorbidity (278.01) (E66.01) Contusion of left knee, initial encounter (924.11) (S80.02XA) Cough (786.2) (R05.9) COVID-19 vaccine series completed (V87.49) (Z92.29) COVID-19 virus infection (079.89) (U07.1) Coronovirus 2019, PCR [03/10/2020] = DETECTED Dental disease (525.9) (K08.9) Encounter for immunization (V03.89) (Z23) Heart failure with preserved ejection fraction (428.9) (I50.30) Had mild CHF per CXR/BNP on 03/06/21 SW General admit Increased diuretic Added lisnopril for better BP control- Watch salt intake History of COVID-19 (V12.09) (Z86.16) Hospital discharge follow-up (V67.59) (Z09) Hypercholesterolemia (272.0) (E78.00) On lmoderate intensity statin-has not tolerated high intensity 09/2021 LDL=50,TE=760 Hypertension (401.9) (I10) BP OK on current meds Weight loss/Salt restriction Hypokalemia (276.8) (E87.6) IBS (irritable bowel syndrome) (564.1) (K58.9) Impaired ambulation (719.7) (R26.2) Impaired fasting glucose (790.21) (R73.01) Lumbar strain, initial encounter (847.2) (S39.012A) Medicare annual wellness visit, subsequent (V70.0) (Z00.00) MGUS (monoclonal gammopathy of unknown significance) (273.1) (D47.2) Moderate persistent asthma without complication (493.90) (J45.40) Pacemaker (V45.01) (Z95.0) Hz of CHB Follows with EP-saw 02/2022 Paroxysmal atrial fibrillation (427.31) (I48.0) On Xarelto No recent sustained palpitati (more content not included)... Normal [facility] HEMOGLOBIN A1Con 04-07-2022 Glucose [Mass/Vol] 143 mg/dL Normal [facility] Comment on above: Performed By: #### H BA1E #### [facility] [id number] [place] [address] HbA1c (Bld) [Mass fraction] 6.6 % Abnormal [facility] Comment on above: Result Comment: Diag nosis of Diabetes-Adults Non-Diabetic: < or = 5.6% Increased risk for developing diabetes: 5.7-6.4% Diagnostic of diabetes: > or = 6.5% . Monitoring of Diabetes Age (y) Therapeutic Goal (%) Adults: >18 <7.0 Pediatrics: 13-18 <7.5 7-12 <8.0 0- 6 7.5-8.5 [employer] [employer]. Diabetes Care 33(S1), May 2009. Performed By: #### H BA1E #### [facility] [id number] [place] [address] Hemoglobin A1Con 04-07-2022 Glucose [Mass/Vol] 143 mg/dL [facility] Work Phone: HbA1c (Bld) [Mass fraction] 6.6 % Abnormal [facility] Work Phone: Comment on above: Diagnosis of Diabete s-Adults Non-Diabetic: < or = 5.6% Increased risk for developing diabetes: 5.7-6.4% Diagnostic of diabetes: > or = 6.5%. Monitoring of Diabetes Age (y) Therapeutic Goal (%) Adults: >18 <7.0 Pediatrics: 13-18 <7.5 7-12 <8.0 0- 6 7.5-8.5 [employer]. Diabetes Care 33(S1), May 2009. Laboratory - Chemistry and C hemistry - challengeon 04-07-2022 TSH Qn 2.01 m[IU]/L See Below [facility] Work Phone: Comment on above: Reference Range: 0.4 4 - 3.98 TSH testing is performed using different testing methodology at [facility] than at other legacy [facility]. Direct result comparisons should only be made within the same method. TSH WITH REFLEX TO FREE T4 I F ABNORMALon 04-07-2022 TSH Qn 2.01 m[IU]/L Normal 0.44 - 3.98 [facility] Comment on above: Result Comment: TSH testing is performed using different testing methodology at [facility] than at other [facility]. Direct result comparisons should only be made within the same method. Performed By: #### H BA1E #### [facility] [address] [place] [address] Office Visit (Cardiology)on 03-21-2022 Follow-up visit Diagnoses/Problems Assessed CAD (coronary artery disease) (414.00) (I25.10) Admitted 03/06/21 with SOB/elevated troponin 03/08/21 cardiac cath with moderate non-obstructive dz No current angina On diltazem/statin/Xarelt o/statin-carries SL NTG-follow. Carotid stenosis (433.10) (I65.29) S/P 07/30/21 L CEA On Xarelto /statin 01/2022 carotid duplex with less than 50% stenosis B/L COVID-19 virus infection (079.89) (U07.1) Coronovirus 2019, PCR [03/10/2020] = DETECTED Heart failure with preserved ejection fraction (428.9) (I50.30) Had mild CHF per CXR/BNP on 03/06/21 SW General admit Increased diuretic Added lisnopril for better BP control- Watch salt intake Hypercholesterolemia (272.0) (E78.00) On lmoderate intensity statin-has not tolerated high intensity 09/2021 LDL=50,QG=757 Hypertension (401.9) (I10) BP OK on current meds Weight loss/Salt restriction Pacemaker (V45.01) (Z95.0) Hz of CHB Follows with EP-saw 02/2022 Paroxysmal atrial fibrillation (427.31) (I48.0) On Xarelto No recent sustained palpitations NSR with V pacing 02/23/22 EKG Short of breath on exertion (786.05) (R06.02) NO current signs of CHF Has chronic lung dz-continue inhaler use Patient Instructions Weight loss F/u 6 months Chief Complaint Pau is here for her 6 month check up for cv dz History of Present IllnessHas persistent SOB-same for years-has intermittent cough/rare wheeze Patient denies any current chest pain/palpitations/ligh theadedness/dizziness/ edema Active around the house but no regular exercise Active Problems Problems Acute bronchitis (466.0) (J20.9) Asthma (493.90) (J45.909) Asthma exacerbation (493.92) (J45.901) Asymptomatic postmenopausal state (V49.81) (Z78.0) Bacterial skin infection (686.9,041.9) (L08.9,B96.89) Body mass index (BMI) of 36.0 to 36.9 in adult (V85.36) (Z68.36) CAD (coronary artery disease) (414.00) (I25.10) Admitted 03/06/21 with SOB/elevated troponin 03/08/21 cardiac cath with moderate non-obstructive dz No current angina On diltazem/statin/Xarelt o/statin-carries SL NTG-follow. Carotid bruit (785.9) (R09.89) Carotid bruit (785.9) (R09.89) Check duplex Carotid stenosis (433.10) (I65.29) S/P 07/30/21 L CEA On Xarelto /statin 01/2022 carotid duplex with less than 50% stenosis B/L Cellulitis of left ear canal (380.10) (H60.12) Class 2 severe obesity with body mass index (BMI) of 35 to 39.9 with serious comorbidity (278.01) (E66.01) Contusion of left knee, initial encounter (924.11) (S80.02XA) Cough (786.2) (R05.9) COVID-19 vaccine series completed (V87.49) (Z92.29) COVID-19 virus infection (079.89) (U07.1) Coronovirus 2019, PCR [03/10/2020] = DETECTED Dental disease (525.9) (K08.9) Encounter for immunization (V03.89) (Z23) Heart failure with preserved ejection fraction (428.9) (I50.30) Had mild CHF per CXR/BNP on 03/06/21 SW General admit Increased diuretic Added lisnopril for better BP control- Watch salt intake History of COVID-19 (V12.09) (Z86.16) Hospital discharge follow-up (V67.59) (Z09) Hypercholesterolemia (272.0) (E78.00) On lmoderate intensity statin-has not tolerated high intensity 09/2021 LDL=50,FO=829 Hypertension (401.9) (I10) BP OK on current meds Weight loss/Salt restriction Hypokalemia (276.8) (E87.6) IBS (irritable bowel syndrome) (564.1) (K58.9) Impaired ambulation (719.7) (R26.2) Impaired fasting glucose (790.21) (R73.01) Lumbar strain, initial encounter (847.2) (S39.012A) Medicare annual wellness visit, subsequent (V70.0) (Z00.00) MGUS (monoclonal gammopathy of unknown significance) (273.1) (D47.2) Moderate persistent asthma without complication (493.90) (J45.40) Pacemaker (V45.01) (Z95.0) Hz of CHB Follows with EP-saw 02/2022 Paroxysmal atrial fibrillation (427.31) (I48.0) On Xarelto No recent sustained palpitations NSR with V pacing 02/23/22 EKG Postoperative carotid endarterectomy surveillance, encounter for (V58.73) (Z48.812) Pre-diabetes (790.29) (R73.03) Prophylactic antibiotic (V58.62) (Z79.2) Short of breath on exertion (786.05) (R06.02) NO current signs of CHF Has chronic lung dz-continue inhaler use Stenosis of left carotid artery (433.10) (I65.22) Trigger finger, left index finger (727.03) (M65.322) Trigger finger, right middle finger (727.03) (M65.331) Visit for screening mammogram (V76.12) (Z12.31) Surgical History Problems History of Breast biopsy X2 negative History of Cardiac catheterization [03/09/2021, Dr. Charline Hagen]: Moderate right CAD and diffuse distal LAD disease but no focal stenoses that warrant intervention noted at this time. LVEDP elevated. Patient will need additional diuretics. History of Cardioversion History of Carotid thromboendarterectomy [08/01/2021, Dr. Jaylon Kiser]: Left carotid endarterectomy with patch angioplasty History of Cataract surgery x2 History of Endarterectomy L carotid with patch angioplas (more content not included)... Normal [employer] Tobacco Screening.on 022 Tobacco use status CPHS b) No [facility] Work Phone: Post Op (Orthopaedic Surgery )on 03-09-2022 Post Op (Orthopaedic Surgery) Diagnoses/Problems Assessed Trigger finger, right middle finger (727.03) (M65.331) Patient Discussion/Summary Patient is doing satisfactory following her right middle finger trigger release. She may use her right hand is much as she can tolerate. She will follow-up as her symptoms dictate. Chief Complaint POSTOP CHECK RT MIDDLE A-1 LINN RELEASE DOS 03-01-22 History of Present Illness Patient comes in today for first postoperative visit after undergoing a right middle finger trigger release. She has had very little pain. She has been able to use her right middle finger without difficulty. Active Problems Problems Acute bronchitis (466.0) (J20.9) Asthma (493.90) (J45.909) Asthma exacerbation (493.92) (J45.901) Asymptomatic postmenopausal state (V49.81) (Z78.0) Bacterial skin infection (686.9,041.9) (L08.9,B96.89) Body mass index (BMI) of 36.0 to 36.9 in adult (V85.36) (Z68.36) CAD (coronary artery disease) (414.00) (I25.10) Admitted 03/06/21 with SOB/elevated troponin 03/08/21 cardiac cath with moderate non-obstructive dz On diltazem/statin/Xarelt o/statin-provide SL NTG-follow. Carotid bruit (785.9) (R09.89) Check duplex Carotid bruit (785.9) (R09.89) Carotid stenosis (433.10) (I65.29) S/P 07/30/21 L CEA On Xarelto /statin Cellulitis of left ear canal (380.10) (H60.12) Class 2 severe obesity with body mass index (BMI) of 35 to 39.9 with serious comorbidity (278.01) (E66.01) Contusion of left knee, initial encounter (924.11) (S80.02XA) Cough (786.2) (R05.9) COVID-19 vaccine series completed (V87.49) (Z92.29) COVID-19 virus infection (079.89) (U07.1) Coronovirus 2019, PCR [03/10/2020] = DETECTED Dental disease (525.9) (K08.9) Encounter for immunization (V03.89) (Z23) Heart failure with preserved ejection fraction (428.9) (I50.30) Had mild CHF per CXR/BNP on 03/06/21 SW General admit Increased diuretic Added lisnopril for better BP control- Watch salt intake History of COVID-19 (V12.09) (Z86.16) Hospital discharge follow-up (V67.59) (Z09) Hypercholesterolemia (272.0) (E78.00) On lmoderate intensity statin-has not tolerated high intensity 09/2021 LDL=50,ZJ=956 Hypertension (401.9) (I10) SBP borderline Weight loss/Salt restriction Hypokalemia (276.8) (E87.6) IBS (irritable bowel syndrome) (564.1) (K58.9) Impaired ambulation (719.7) (R26.2) Impaired fasting glucose (790.21) (R73.01) Lumbar strain, initial encounter (847.2) (S39.012A) Medicare annual wellness visit, subsequent (V70.0) (Z00.00) MGUS (monoclonal gammopathy of unknown significance) (273.1) (D47.2) Moderate persistent asthma without complication (493.90) (J45.40) Pacemaker (V45.01) (Z95.0) Hz of CHB Follows with EP Paroxysmal atrial fibrillation (427.31) (I48.0) On Xarelto No recent sustained palpitations Was in NSR with V pacing 03/06/21 hospital admit Postoperative carotid endarterectomy surveillance, encounter for (V58.73) (Z48.812) Pre-diabetes (790.29) (R73.03) Prophylactic antibiotic (V58.62) (Z79.2) Short of breath on exertion (786.05) (R06.02) NO current signs of CHF Has chronic lung dz-continue inhaler use Stenosis of left carotid artery (433.10) (I65.22) Trigger finger, left index finger (727.03) (M65.322) Trigger finger, right middle finger (727.03) (M65.331) Visit for screening mammogram (V76.12) (Z12.31) Past Medical History Problems History of Accidental fall (E888.9) (W19.XXXA) Resolved Date: 27 Nov 2018 History of Asthma flare (493.92) (J45.901) Resolved Date: 16 Jul 2019 History of Body mass index (BMI) of 30.0 to 30.9 in adult (V85.30) (Z68.30) Resolved Date: 21 Jan 2020 History of Body mass index (BMI) of 33.0 to 33.9 in adult (V85.33) (Z68.33) Resolved Date: 21 Jan 2020 History of Body mass index (BMI) of 34.0 to 34.9 in adult (V85.34) (Z68.34) Resolved Date: 22 Jul 2020 History of Ganglion cyst of volar aspect of left wrist (727.41) (M67.432) Resolved Date: 21 Jan 2020 History of atrial fibrillation (V12.59) (Z86.79) History of atrial flutter (V12.59) (Z86.79) History of contact dermatitis (V13.3) (Z87.2) Resolved Date: 14 May 2019 History of diabetic retinopathy (V12.29) (Z86.39) History of fever (V13.89) (Z87.898) Resolved Date: 06 Apr 2020 History of ganglion cyst (V13.3) (Z87.39) Resolved Date: 21 Jan 2020 History of infectious diarrhea (V12.79) (Z86.19) Resolved Date: 16 Oct 2018 History of recent hospitalization (V13.9) (Z92.89) Resolved Date: 13 Aug 2019 History of recent pneumonia (V12.61) (Z87.01) Resolved Date: 13 Aug 2019 History of strain (V13.59) (Z87.828) Resolved Date: 17 Apr 2019 History of Irritable bowel syndrome with diarrhea (564.1) (K58.0) Resolved Date: 27 Nov 2018 History of Pain in joint involving right lower leg (719.46) (M25.561) Resolved Date: 17 Apr 2019 Surgical History Problems History of Breast biopsy X2 negative History of Cardiac catheterization [03/09/2021, Dr. Greene (more content not included)... Normal [facility] GLUCOSE-POCTon 03-01-2022 Glucose [Mass/Vol] 126 mg/dL High 74 - 99 [facility] Comment on above: Performed By: #### G IRVING #### [facility] [address] [place] [address] Laboratory - Chemistry and C hemistry - challengeon 03-01-2022 Glucose [Mass/Vol] 126 mg/dL above high threshold 74 - 99 -[facility] MAC4 100 DO Work Phone: Operative Reports - [facility] 03-01-2022 Operative Reports - [place] SURGEON: Yg López MD PREOPERATIVE DIAGNOSIS: Right middle finger trigger digit. POSTOPERATIVE DIAGNOSIS: Right middle finger trigger digit. PROCEDURE: Right middle finger A1 linn release. SILK SCREEN ETCHER: NGUYỄN Hwang ANESTHESIA: Local with intravenous sedation. COMPLICATIONS: None. ESTIMATED BLOOD LOSS: Minimal. TOURNIQUET TIME: 4 minutes at 250 mmHg. INDICATIONS: The patient is a 71-year-old female who presented with right middle finger pain and locking secondary to a trigger digit. She had tried and failed conservative management. We then discussed surgical treatment options including a right middle finger A1 linn release. I explained to her the risks of the procedure include, but not limited to, infection; damage to nerves, tendons, and blood vessels; continued postoperative pain and stiffness; as well as risks associated with anesthesia. The patient voiced understanding and informed consent was obtained. DESCRIPTION OF PROCEDURE: The patient was properly identified in the preoperative waiting area and her right middle finger was marked as site of surgery. The patient received clindamycin intravenously. The patient was taken back to the operating room suite and placed supine on the OR table. A nonsterile tourniquet was applied to patient's right forearm. After intravenous sedation was administered, the patient's right upper extremity was prepped and draped in sterile fashion. A preoperative verification time-out was taken. At this point, I injected a total of 8 mL of 0.5% plain Marcaine just in line with my proposed incision site. The patient's right upper extremity was exsanguinated with Esmarch bandage and the tourniquet inflated to 250 mmHg. At this point, I made approximately a 1.5 cm longitudinal incision directly overlying the A1 linn. Sharp dissection was carried down to the A1 linn. This was sharply transected. Wound was irrigated with normal saline. Skin was closed with 4-0 nylon suture. Tourniquet was let down after 4 minutes. Good vascular return to the patient's right hand and all digits. Sterile dressing consisting of Xeroform gauze, 4 x 4's, Webril, and Tommy wrap was applied to the patient's right hand. The patient was awakened from anesthesia and returned to the recovery room in stable condition. There were no complications during the case. All sponge and needle counts were correct at the end of the case. Yg López MD EST EST DICTATION NUMBER: [id number] INTERNAL JOB NUMBER: [id number] Electronic Signatures: Yg López) (Signed on 02-Mar-2022 11:51) Authored Unsigned, Draft (SYS GENERATED) (Entered on 02-Mar-2022 10:04) Entered Last Updated: 02-Mar-2022 11:51 by Yg López) [facility] Order Reconciliationon 03-01 Order Reconciliation Page 1 Discharge Reconciliation Document Reconciliation Type: Discharge requested on behalf of Yg López (Physician) done by Yg López) Discharge - Reconciliation: 01-Mar-2022 10:16 by: Yg López) Home Medications EnteredHOME MEDICATIONS AT DISCHARGE DateReconciliation Comment/ Additional Information black cohosh oral tablet orally 40 mg daily 15-Sep-2016 10:11 black cohosh oral tablet orally 40 mg daily 15-Sep-2016 10:11 black cohosh oral tablet is continued as black cohosh oral tablet DilTIAZem Hydrochloride ER 240 mg/24 hours oral capsule, extended release 1 cap(s) orally 2 times a day 28-Jun-2019 21:43 DilTIAZem Hydrochloride ER 240 mg/24 hours oral capsule, extended release 1 cap(s) orally 2 times a day 28-Jun-2019 21:43 DilTIAZem Hydrochloride ER 240 mg/24 hours oral capsule, extended release is continued as DilTIAZem Hydrochloride ER 240 mg/24 hours oral capsule, extended release furosemide 40 mg oral tablet 1 tab(s) orally once a day 28-Jul-2021 12:41 furosemide 40 mg oral tablet 1 tab(s) orally once a day 28-Jul-2021 12:41 furosemide 40 mg oral tablet is continued as furosemide 40 mg oral tablet ipratropium-albuterol 0.5 mg-2.5 mg/3 mLinhalation solution 3 milliliter(s) inhaled every 4 hours 05-Jul-2019 13:02 ipratropium-albuterol 0.5 mg-2.5 mg/3 mLinhalation solution 3 milliliter(s) inhaled every 4 hours 05-Jul-2019 13:02 ipratropium-albuterol 0.5 mg-2.5 mg/3 mLinhalation solution is continued as ipratropium-albuterol 0.5 mg-2.5 mg/3 mLinhalation solution lisinopril 5 mg oral tablet 1 tab(s) orally once a day with lunch 28-Jul-2021 12:41 lisinopril 5 mg oral tablet 1 tab(s) orally once a day with lunch 28-Jul-2021 12:41 lisinopril 5 mg oral tablet is continued as lisinopril 5 mg oral tablet magnesium gluconate 500 mg oral tablet 1 tab(s) orally once a day 15-Sep-2016 10:10 magnesium gluconate 500 mg oral tablet 1 tab(s) orally once a day 15-Sep-2016 10:10 magnesium gluconate 500 mg oral tablet is continued as magnesium gluconate 500 mg oral tablet NexIUM 20 mg oral delayed release capsule 1 cap(s) orally once a day 28-Jun-2019 21:51 NexIUM 20 mg oral delayed release capsule 1 cap(s) orally once a day 28-Jun-2019 21:51 NexIUM 20 mg oral delayed release capsule is continued as NexIUM 20 mg oral delayed release capsule nitroglycerin 0.4 mg sublingual tablet 28-Jul-2021 12:42 nitroglycerin 0.4 mg sublingual tablet 28-Jul-2021 12:42 nitroglycerin 0.4 mg sublingual tablet is continued as nitroglycerin 0.4 mg sublingual tablet pravastatin 40 mg oral tablet orally once a day (at bedtime) 28-Jul-2021 12:46 pravastatin 40 mg oral tablet orally once a day (at bedtime) 28-Jul-2021 12:46 pravastatin 40 mg oral tablet is continued as pravastatin 40 mg oral tablet Probiotic Formula oral capsule orally once a day 20-Sep-2018 13:48 Probiotic Formula oral capsule orally once a day 20-Sep-2018 13:48 Probiotic Formula oral capsule is continued as Probiotic Formula oral capsule Pulmicort Flexhaler 90 mcg/inh inhalation powder inhaled 2 times a day 28-Jul-2021 12:48 Pulmicort Flexhaler 90 mcg/inh inhalation powder inhaled 2 times a day 28-Jul-2021 12:48 Pulmicort Flexhaler 90 mcg/inh inhalation powder is continued as Pulmicort Flexhaler 90 mcg/inh inhalation powder Vitamin D3 5000 intl units oral capsule 1 cap(s) orally once a day 20-Sep-2018 13:50 Vitamin D3 5000 intl units oral capsule 1 cap(s) orally once a day 20-Sep-2018 13:50 Vitamin D3 5000 intl units oral capsule is continued as Vitamin D3 5000 intl units oral capsule Xarelto 20 mg oral tablet 1 tab(s) orally once a day (in the evening) 28-Jun-2019 21:47 Xarelto 20 mg oral tablet 1 tab(s) orally once a day (in the evening) 28-Jun-2019 21:47 Xarelto 20 mg oral tablet is continued as Xarelto 20 mg oral tablet Xopenex HFA 45 mcg/inh inhalation aerosol 2 puff(s) inhaled once a day 28-Jul-2021 12:48 Xopenex HFA 45 mcg/inh inhalation aerosol 2 puff(s) inhaled once a day 28-Jul-2021 12:48 Xopenex HFA 45 mcg/inh inhalation aerosol is continued as Xopenex HFA 45 mcg/inh inhalation aerosol ZyrTEC 1 orally once a day 28-Jun-2019 21:46 ZyrTEC 1 orally once a day 28-Jun-2019 21:46 ZyrTEC is continued as ZyrTEC Current OrdersDateHOME MEDICATIONS AT DISCHARGE DateReconciliation Comment/ Additional Information Clindamycin 600 mg IVPB/ Premixed Soln 50 mL (CLEOCIN)OnceRecommend ed Infusion Time: 30 minute(s)Stop After 1 DosesClinician Notes: FOR PRE-OP 03/01/22 28-Feb-2022 18:19 Clindamycin 600 mg IVPB/ Premixed Soln 50 mL is not required Home Medications Added During Discharge Reconciliation Activity as Tolerated 01-Mar-2022, Routine, Assistance Level: None, Restrictions: None, Limit your activities and rest today. Additional Patient Instructions Apply Ice pack to surgical area. Additional Patient Instructions Do not consume alcoholic beverages for 24 hours. Additional Patient Instru (more content not included)... Normal [facility] Patient Profile - Preop v3on 02-28-2022 Patient Profile - Preop v3 Patient Profile - Preop: Initial Info: Patient DemographicsName: PAU MUÑOZ Date: 1950 Address: [address] [place] [address] Date/Time [id number] 12:00 Primary Phone [phone] Call Attemptedattempt 1 Instructions Giventime to arrive Prep Instructions Reviewedyes Pt instructed to arrive at 8:30 for 10:00 surgery. Pt encouraged to review pre-op instruction sheet and remain NPO at midnight. Understanding is verbalized. Prep Typepre-op Instructed to Have No Fluids Aftermidnight How to be AddressedDebbie Spoken Language PreferredEnglish Stated Reason for Admissionright middle finger Primary Contact Name and Numbersee face sheet Medications Brought to Hospitalno General Health: Weight in kg85 kilogram(s) Weight in ech381.3 pound(s) Height in feet5 feet Height in inches0 inch(es) Height in cm152.4 centimeter(s) BMI (kg/m2)36.597 square meter Patient or Family Member Reaction to Anesthesiano previous reaction Blood Avoidance/Restrictions none Previous Transfusion Reactionnot applicable Health Mgmt: Symptoms/Conditions Managed at [facility] H&P Barriers to Managing Healthnone Relationship/Environ: Lives Withalone Living Arrangementshouse Resource/Environmental Concernsnone Anticipated Transition [place] Services Anticipated at Transitionnone Tobacco Use: Tobacco Useno Additional Information: Information Review: Allergies, Home Meds and Significant Events have been Reviewed and Verified with Patient/Familyyes Allergy, Intolerance, Adverse Event: Allergies: contrast (specific type unknown): Contrast, Unknown, Active Keflex: Drug, Rash, Active Bactrim: Drug, Rash, Active Levaquin: Drug, Rash, Active sulfa drugs: Drug Category, Rash, Active Electronic Signatures: Loren Arora (RN) (Signed 01-Mar-2022 08:31) Authored: Initial Info, General Health, Health Mgmt, Relationship/Environ, Tobacco Use, Additional Information Steph Brady) (Signed 28-Feb-2022 12:03) Authored: Initial Info, Additional Information Last Updated: 01-Mar-2022 08:31 by Loren Arora (RN) Normal [facility] Electrocardiogram 12 Leadon 02-23-2022 Electrocardiogram 12 Lead Ventricular Rate 74 Atrial Rate 74 QRS Duration 150 Q-T Interval 430 QTC Calculation(Bazett) 477 R Lannon -50 T Lannon 108 QRS Count 13 Q Onset 196 T Offset 411 QTC Fredericia 461 Diagnosis Class Abnormal Diagnosis Ventricular-paced rhythm with occasional premature ventricular complexes Abnormal ECG When compared with ECG of 28-JUL-2021 13:26, premature ventricular complexes are now present Vent. rate has increased BY 12 BPM Confirmed by Zion Zamora ([id number]) on 02/24/2022 4:15:38 PM Normal [facility] HGB + HCTon 02-23-2022 Hematocrit (Bld) [Volume fraction] 44.3 % Normal 36.0 - 46.0 [facility] Comment on above: Performed By: #### H H #### [facility] [address] [place] [address] Hemoglobin (Bld) [Mass/Vol] 14.1 g/dL Normal 12.0 - 16.0 [facility] Comment on above: Performed By: #### H H #### [facility] [address] [place] [address] Laboratory - Hematology and Cell countson 02-23-2022 Hematocrit (Bld) [Volume fraction] 44.3 % See Below [facility] DO Work Phone: Comment on above: Reference Range: 36. 0 - 46.0 Hemoglobin (Bld) [Mass/Vol] 14.1 g/dL See Below [facility] DO Work Phone: Comment on above: Reference Range: 12. 0 - 16.0 No Panel Informationon 02-23 [email or web address]?RetrieveTestB yDateTime?PatientID=[id number]&Date= 2&Time=12%3a59%3a36%3a 00&TestType=ECG&Site=1 0&OutputType=PDF&Ext=P DF [facility] DO Work Phone: Ventricular-paced rhythm with occasional premature ventricular complexes [facility] 100 DO Work Phone: Abnormal [facility] 100 DO Work Phone: [phone] [facility] 100 DO Work Phone: [phone] [facility] DO Work Phone: 196 1 [facility] 100 DO Work Phone: 13 1 [facility] 100 DO Work Phone: 108 1 [facility] 100 DO Work Phone: -50 1 [facility] 100 DO Work Phone: 477 1 [facility] 100 DO Work Phone: 430 1 [facility] 100 DO Work Phone: 150 1 [facility] 100 DO Work Phone: 74 1 [facility] 100 DO Work Phone: Blood Pressure Cuff Sizeon 1 Blood Pressure Cuff Size Adult [facility] Work Phone: Office Visit (Vascular Surge ry)on 02-17-2022 Follow-up visit Diagnoses/Problems Assessed Carotid stenosis (433.10) (I65.29) S/P 07/30/21 L CEA On Xarelto /statin Orders Carotid bruit, Carotid stenosis VASC LAB Carotid Artery Duplex Ultrasound; Status:Hold For - Scheduling,Retrospecti ve Authorization; Requested for:After 02Aug2022; Laterality : Bilateral Carotid stenosis Seek Immediate Medical Attention if: You have any symptoms of a stroke.; Status:Complete - Retrospective Authorization; Done: 17Feb2022 Provider Impressions Patient presents today for follow-up of her carotid artery disease. She denies any constitutional symptoms associated with her carotid disease. I did do a left carotid endarterectomy on her back in July of this year. Overall she is doing well. I would like her to follow-up in 6 months with repeat carotid duplex scan. If that looks good then we can go yearly Chief Complaint The patient presents to the office today for a routine follow up exam . 6 month f/u; Carotid disease. Patient had Left CEA done 07/30/21. Carotid u/s done 02/01/22. History of Present Illness This patient presents today for follow-up of her carotid artery disease. She denies any constitutional symptoms associated with her carotid disease. She has never smoked. She is 5 foot tall and weighs 187 pounds and is 71 years old. I did do a left carotid endarterectomy on her back in July of this year. She denies any fever chills nausea vomiting or headache Review of Systems Constitutional: no fever and no chills. Psychiatric: no emotional problems. Neurological: no headache, no seizures, no numbness, no syncope and no limb weakness. Eyes: no eye problems. ENT: no throat symptoms and no hoarseness. Cardiovascular: no chest pain and no palpitations. Respiratory: no shortness of breath, no wheezing, no cough and no hemoptysis. Gastrointestinal: no abdominal pain, no constipation, no nausea, no diarrhea and no vomiting. Genitourinary: no dysuria and no hematuria. Musculoskeletal: no arthralgias and no myalgias. Endocrine: no endocrine problems. Hematologic/Lymphatic: no lymphadenopathy. Integumentary: no rashes and no skin lesions. Vascular: no claudication, no rest pain, no ulceration and no varicose veins . Status post left carotid endarterectomy July 2021. All other systems have been reviewed and are negative for complaint. As per HPI Active Problems Problems Acute bronchitis (466.0) (J20.9) Asthma (493.90) (J45.909) Asthma exacerbation (493.92) (J45.901) Asymptomatic postmenopausal state (V49.81) (Z78.0) Bacterial skin infection (686.9,041.9) (L08.9,B96.89) Body mass index (BMI) of 36.0 to 36.9 in adult (V85.36) (Z68.36) CAD (coronary artery disease) (414.00) (I25.10) Admitted 03/06/21 with SOB/elevated troponin 03/08/21 cardiac cath with moderate non-obstructive dz On diltazem/statin/Xarelt o/statin-provide SL NTG-follow. Carotid bruit (785.9) (R09.89) Carotid bruit (785.9) (R09.89) Check duplex Carotid stenosis (433.10) (I65.29) S/P 07/30/21 L CEA On Xarelto /statin Cellulitis of left ear canal (380.10) (H60.12) Class 2 severe obesity with body mass index (BMI) of 35 to 39.9 with serious comorbidity (278.01) (E66.01) Contusion of left knee, initial encounter (924.11) (S80.02XA) Cough (786.2) (R05.9) COVID-19 vaccine series completed (V87.49) (Z92.29) COVID-19 virus infection (079.89) (U07.1) Coronovirus 2019, PCR [03/10/2020] = DETECTED Dental disease (525.9) (K08.9) Encounter for immunization (V03.89) (Z23) Heart failure with preserved ejection fraction (428.9) (I50.30) Had mild CHF per CXR/BNP on 03/06/21 SW General admit Increased diuretic Added lisnopril for better BP control- Watch salt intake History of COVID-19 (V12.09) (Z86.16) Hospital discharge follow-up (V67.59) (Z09) Hypercholesterolemia (272.0) (E78.00) On lmoderate intensity statin-has not tolerated high intensity 09/2021 LDL=50,OX=705 Hypertension (401.9) (I10) SBP borderline Weight loss/Salt restriction Hypokalemia (276.8) (E87.6) IBS (irritable bowel syndrome) (564.1) (K58.9) Impaired ambulation (719.7) (R26.2) Impaired fasting glucose (790.21) (R73.01) Lumbar strain, initial encounter (847.2) (S39.012A) Medicare annual wellness visit, subsequent (V70.0) (Z00.00) MGUS (monoclonal gammopathy of unknown significance) (273.1) (D47.2) Moderate persistent asthma without complication (493.90) (J45.40) Pacemaker (V45.01) (Z95.0) Hz of CHB Follows with EP Paroxysmal atrial fibrillation (427.31) (I48.0) On Xarelto No recent sustained palpitations Was in NSR with V pacing 03/06/21 hospital admit Postoperative carotid endarterectomy surveillance, encounter for (V58.73) (Z48.812) Pre-diabetes (790.29) (R73.03) Prophylactic antibiotic (V58.62) (Z79.2) Short of breath on exertion (786.05) (R06.02) NO current signs of CHF Has chronic lung dz-continue inhaler use Stenosis of left carotid artery (433.10) (I65.22) Trigger finger, left ind (more content not included)... Normal [facility] Office Visit (Cardiology)on 02-07-2022 Follow-up visit Diagnoses/Problems Assessed Paroxysmal atrial fibrillation (427.31) (I48.0) On Xarelto No recent sustained palpitations Was in NSR with V pacing 03/06/21 hospital admit Pacemaker (V45.01) (Z95.0) Hz of CHB Follows with EP Orders Hypertension Renew: Lisinopril 10 MG Oral Tablet; Take 1 tablet daily Patient Instructions Follow up with Dr Palacio in 10-12 months. Increase Lisinopril to 10 mg daily. Adult Risk Screening There are no spiritual/cultural practices/values/needs that are important to know Initial Fall Risk Screening: PAU has not fallen in the last 6 months. PAU does not have a fear of falling. She does not need assistance with sitting, standing or walking. Does not need assistance walking in her home. She does not need assistance in an unfamiliar setting. The patient is not using an assistive device. Pain Scale: On a scale of 0 to 10, the patient rates the pain at 0. Living Will. Living Will: Living will on file. Healthcare POA: Health care proxy on file. Declaration of Mental Health Treatment: No mental health treatment on file. Tobacco Screening: PAU does not use tobacco. Domestic Violence Screen: Does not feel threatened or abused physically, emotionally or sexually. Do you feel UNSAFE? The patient feels safe in the home. History of Present Illness This is a 71-year-old female with a history of atrial fibrillation and complete heart block. The patient is doing well from a cardiac perspective, with no complaints of palpitations, chest pain, or shortness of breath. She underwent a carotid endarterectomy in September 2021 and is going to have trigger finger release on both hands in the near future. No pacemaker related issues Active Problems Problems Acute bronchitis (466.0) (J20.9) Asthma (493.90) (J45.909) Asthma exacerbation (493.92) (J45.901) Asymptomatic postmenopausal state (V49.81) (Z78.0) Bacterial skin infection (686.9,041.9) (L08.9,B96.89) Body mass index (BMI) of 36.0 to 36.9 in adult (V85.36) (Z68.36) CAD (coronary artery disease) (414.00) (I25.10) Admitted 03/06/21 with SOB/elevated troponin 03/08/21 cardiac cath with moderate non-obstructive dz On diltazem/statin/Xarelt o/statin-provide SL NTG-follow. Carotid bruit (785.9) (R09.89) Check duplex Carotid bruit (785.9) (R09.89) Carotid stenosis (433.10) (I65.29) S/P 07/30/21 L CEA On Xarelto /statin Cellulitis of left ear canal (380.10) (H60.12) Class 2 severe obesity with body mass index (BMI) of 35 to 39.9 with serious comorbidity (278.01) (E66.01) Contusion of left knee, initial encounter (924.11) (S80.02XA) Cough (786.2) (R05.9) COVID-19 vaccine series completed (V87.49) (Z92.29) COVID-19 virus infection (079.89) (U07.1) Coronovirus 2019, PCR [03/10/2020] = DETECTED Dental disease (525.9) (K08.9) Encounter for immunization (V03.89) (Z23) Heart failure with preserved ejection fraction (428.9) (I50.30) Had mild CHF per CXR/BNP on 03/06/21 SW General admit Increased diuretic Added lisnopril for better BP control- Watch salt intake History of COVID-19 (V12.09) (Z86.16) Hospital discharge follow-up (V67.59) (Z09) Hypercholesterolemia (272.0) (E78.00) On lmoderate intensity statin-has not tolerated high intensity 09/2021 LDL=50,KZ=931 Hypertension (401.9) (I10) SBP borderline Weight loss/Salt restriction Hypokalemia (276.8) (E87.6) IBS (irritable bowel syndrome) (564.1) (K58.9) Impaired ambulation (719.7) (R26.2) Impaired fasting glucose (790.21) (R73.01) Lumbar strain, initial encounter (847.2) (S39.012A) Medicare annual wellness visit, subsequent (V70.0) (Z00.00) MGUS (monoclonal gammopathy of unknown significance) (273.1) (D47.2) Moderate persistent asthma without complication (493.90) (J45.40) Pacemaker (V45.01) (Z95.0) Hz of CHB Follows with EP Paroxysmal atrial fibrillation (427.31) (I48.0) On Xarelto No recent sustained palpitations Was in NSR with V pacing 03/06/21 hospital admit Postoperative carotid endarterectomy surveillance, encounter for (V58.73) (Z48.812) Pre-diabetes (790.29) (R73.03) Prophylactic antibiotic (V58.62) (Z79.2) Short of breath on exertion (786.05) (R06.02) NO current signs of CHF Has chronic lung dz-continue inhaler use Stenosis of left carotid artery (433.10) (I65.22) Trigger finger, left index finger (727.03) (M65.322) Trigger finger, right middle finger (727.03) (M65.331) Visit for screening mammogram (V76.12) (Z12.31) Surgical History Problems History of Breast biopsy X2 negative History of Cardiac catheterization [03/09/2021, Dr. Charline Hagen]: Moderate right CAD and diffuse distal LAD disease but no focal stenoses that warrant intervention noted at this time. LVEDP elevated. Patient will need additional diuretics. History of Cardioversion History of Cataract surgery x2 History of Endarterectomy L carotid with patch angioplasty History of Hysterectomy total abdominal with removal (more content not included)... Normal [employer] Tobacco Screening.on 022 Fall risk assessment a) [facility] the [facility] Work Phone: Tobacco use status [facility] b) No [facility] Work Phone: VASC LAB Carotid Artery Dupl ex Ultrasounon 02-01-2022 VASC LAB Carotid Artery Duplex Ultrasoun [facility] [address] [address] and Vascular Lab Report Carotid Artery Duplex Ultrasound Patient Name: PAU MUÑOZ Reading Physician: [id number] Serena Pascal MD Study Date: 02/01/2022 Referring Physician: JAYLON KISER MRN/PID: [id number] PCP: Accession/Order#: [id number] CC Report to: Date of : 1950 Technologist: June SILVA Gender: F Technologist 2: Admission Status: Outpatient Location Performed: [facility] Diagnosis/ICD: I65.23-Occlusion and stenosis of bilateral carotid arteries Procedure/CPT: 15591 Cerebrovascular Carotid Duplex scan complete-[id number] Patient History Carotid surgery. LCEA. CONCLUSIONS: Right Carotid: Findings are consistent with less than 50% stenosis of the right proximal ICA. Laminar flow seen by color Doppler. Right external carotid artery appears patent with no evidence of stenosis. The right vertebral artery is patent with antegrade flow. No evidence of hemodynamically significant stenosis in the right subclavian. Left Carotid: Findings are consistent with less than 50% stenosis of the left proximal ICA. Laminar flow seen by color Doppler. Left external carotid artery appears patent with no evidence of stenosis. The left vertebral artery is patent with antegrade flow. No evidence of hemodynamically significant stenosis in the left subclavian. Endarterectomy: Patent left carotid endarterectomy site following endarterectomy. Comparison: Compared with study from 05/11/2021, patient underwent left carotid endarterectomy. Additional Findings: Imaging AND Doppler Findings: Right Plaque Morph: The proximal right internal carotid artery demonstrates heterogenous and calcified plaque. Left Plaque Morph: The proximal left internal carotid artery demonstrates intimal thickening plaque. The proximal left external carotid artery demonstrates intimal thickening plaque. Right Left PSV EDV PSV EDV 105 cm/s CCA P 68 cm/s 62 cm/s CCA D 43 cm/s 55 cm/s 16 cm/s ICA P 47 cm/s 7 cm/s 66 cm/s 17 cm/s ICA M 64 cm/s 16 cm/s 63 cm/s 15 cm/s ICA D 54 cm/s 13 cm/s 86 cm/s ECA 11 cm/s 41 cm/s Vertebral 50 cm/s 197 cm/s Subclavian 182 cm/s Right Left ICA/CCA Ratio 0.9 1.1 [id number] Serena Pascal MD Final Normal [facility] VASC LAB Carotid Artery Dupl ex Ultrasoundon 02-01-2022 US.doppler Carotid arteries Please click on the link to view the study images Normal [facility] Work Phone: Hemoglobin A1Con 01-07-2022 Glucose [Mass/Vol] 140 mg/dL [facility] Work Phone: HbA1c (Bld) [Mass fraction] 6.5 % Abnormal -[facility] Work Phone: Comment on above: Diagnosis of Diabete s-Adults Non-Diabetic: < or = 5.6% Increased risk for developing diabetes: 5.7-6.4% Diagnostic of diabetes: > or = 6.5%. Monitoring of Diabetes Age (y) Therapeutic Goal (%) Adults: >18 <7.0 Pediatrics: 13-18 <7.5 7-12 <8.0 0- 6 7.5-8.5 [employer] [employer]. Diabetes Care 33(S1), May 2009. Tobacco Screening.on Adult depression screening assessment No [facility] Work Phone: Fall risk assessment a) No falls within the last year [facility] Work Phone: Tobacco use status [facility] b) No [facility] Work Phone: Tobacco Screening.on Tobacco use status [facility] b) No FY-Axkqxwdqhy-Gs rma Work Phone: Tobacco Screening.on Fall risk assessment a) No falls within the last year OP[facility]utmul[facility]pc[facility]Ya [facility] Work Phone: Tobacco use status CP b) No YB-Upxvetdlad-Sh rma Work Phone: Hemoglobin A1Con 09-16-2021 Glucose [Mass/Vol] 134 mg/dL [facility] Work Phone: HbA1c (Bld) [Mass fraction] 6.3 % Abnormal EM-Nijxcfxghv-Lt rma Work Phone: Comment on above: Diagnosis of Diabete s-Adults Non-Diabetic: < or = 5.6% Increased risk for developing diabetes: 5.7-6.4% Diagnostic of diabetes: > or = 6.5%. Monitoring of Diabetes Age (y) Therapeutic Goal (%) Adults: >18 <7.0 Pediatrics: 13-18 <7.5 7-12 <8.0 0- 6 7.5-8.5 [employer]. Diabetes Care 33(S1), May 2009. Laboratory - Chemistry and C hemistry - challengeon 09-16-2021 Albumin BCP dye [Mass/Vol] 4.0 g/dL 3.4 - 5.0 IC-Gzbhzmuqzp-Hb rma Work Phone: ALP [Catalytic activity/Vol] 84 U/L 33 - 136 OL-Xmfcpvrpdc-Zq rma Work Phone: ALT With P-5'-P [Catalytic activity/Vol] 13 U/L 7 - 45 JY-Axcjxpnopf-Lq rma Work Phone: Comment on above: Patients treated wit h Sulfasalazine may generate falsely decreased results for ALT. Anion gap [Moles/Vol] 13 mmol/L 10 - 20 WK-Abgubfrkko-Os rma Work Phone: AST With P-5'-P [Catalytic activity/Vol] 18 U/L 9 - 39 SP-Pvovodgmhq-Kh rma Work Phone: Bilirubin [Mass/Vol] 0.4 mg/dL 0.0 - 1.2 MP-C ardiology-Pa [facility] Work Phone: Calcium [Mass/Vol] 9.6 mg/dL 8.6 - 10.6 MP[facility] Work Phone: Chloride [Moles/Vol] 101 mmol/L 98 - 107 MP-[facility] Work Phone: CO2 [Moles/Vol] 28 mmol/L 21 - 32 MP-[facility] Work Phone: Creatinine [Mass/Vol] 0.88 mg/dL See Below SW-Xlkndecclj-Cj rma Work Phone: Comment on above: Reference Range: 0.5 0 - 1.05 Glucose [Mass/Vol] 141 mg/dL above high threshold 74 - 99 ES-Wowzljkeip-Lq rma Work Phone: Potassium [Moles/Vol] 4.2 mmol/L 3.5 - 5.3 TP-Qbfvldmvcg-Zu rma Work Phone: Protein [Mass/Vol] 7.4 g/dL 6.4 - 8.2 MP-Car diology-Pa rma Work Phone: Sodium [Moles/Vol] 138 mmol/L 136 - 145 [facility] Work Phone: Urea nitrogen [Mass/Vol] 22 mg/dL 6 - 23 TG-Styzbtfltc-Xu rma Work Phone: Lipid Panelon 09-16-2021 Cholesterol [Mass/Vol] 162 mg/dL 0 - 199 LV-Vyrtjrxowq-Sr rma Work Phone: Comment on above: . AGE DESIRABLE BORD TESFAYE HIGH HIGH 0-19 Y 0 - 169 170 - 199 >/= 200 20-24 Y 0 - 189 190 - 224 >/= 225 >24 Y 0 - 199 200 - 239 >/= 240 All ranges are based on fasting samples. Specific therapeutic targets will vary based on patient-specific cardiac risk.. Pediatric guidelines reference:Pediatrics 2011, 128(S5). Adult guidelines reference: NCEP ATPIII Guidelines, OSCAR 2001, 258:2486-97. Venipuncture immediately after or during the administration of Metamizole may lead to falsely low results. Testing should be performed immediately prior to Metamizole dosing. Cholesterol in HDL [Mass/Vol] 67.7 mg/dL [facility] Work Phone: Comment on above: . AGE VERY LOW LOW N ORMAL HIGH 0-19 Y < 35 < 40 40-45 ---- 20- 24 Y ---- < 40 >45 ---- >24 Y ---- < 40 40-60 >60. Cholesterol in LDL [Mass/Vol] 50 mg/dL 0 - 99 [facility] Work Phone: Comment on above: . NEAR BORD AGE MARRY RABLE OPTIMAL HIGH HIGH VERY HIGH 0-19 Y 0 - 109 --- 110-129 >/= 130 ---- 20-24 Y 0 - 119 --- 120-159 >/= 160 ---- >24 Y 0 - 99 100-129 130-159 160-189 >/=190. Cholesterol non HDL [Mass/Vol] 94 mg/dL CI-Pikfacolzn-Qe [employer] Work Phone: Comment on above: AGE DESIRABLE BORDER LINE HIGH HIGH VERY HIGH 0-19 Y 0 - 119 120 - 144 >/= 145 >/= 160 20-24 Y 0 - 149 150 - 189 >/= 190 ---- >24 Y 30 MG/DL ABOVE LDL CHOLESTEROL GOAL. Cholesterol.total/Ch olesterol in HDL [Mass ratio] 2.4 {ratio} UX-Ewnypfhbzp-Gb [employer] Work Phone: Comment on above: REF VALUESDESIRABLE < 3.4HIGH RISK > 5.0 Triglyceride [Mass/Vol] 221 mg/dL above high threshold 0 - 149 CX-Xdzfrbihxs-Nn [employer] Work Phone: Comment on above: . AGE DESIRABLE BORD TESFAYE HIGH HIGH VERY HIGH 0 D-90 D 19 - 174 ---- ---- ----91 D- 9 Y 0 - 74 75 - 99 >/= 100 ---- 10-19 Y 0 - 89 90 - 129 >/= 130 ---- 20-24 Y 0 - 114 115 - 149 >/= 150 ---- >24 Y 0 - 149 150 - 199 200- 499 >/= 500. Venipuncture immediately after or during the administration of Metamizole may lead to falsely low results. Testing should be performed immediately prior to Metamizole dosing. Lipid Panel 44 mg/dL above high threshold 0 - 40 DA-Ldkfutjopq-Gh rma Work Phone: No Panel Informationon 09-16 70 {mL/min/1.73m2} >90 MP-Car di[facility] Work Phone: Comment on above: CALCULATIONS OF GALILEA MATED GFR ARE PERFORMED USING THE 2020 CKD-EPI STUDY REFIT EQUATION WITHOUT THE RACE VARIABLE FOR THE IDMS-TRACEABLE CREATININE METHODS.https://jasn.asnjournals.org/content/early//ASN .[email or web address] Laboratory - Hematology and Cell countson 08-01-2021 Erythrocyte distribution width (RBC) [Ratio] 15.8 % above high threshold See Below [facility] Work Phone: Comment on above: Reference Range: 11. 5 - 14.5 Hematocrit (Bld) [Volume fraction] 37.7 % See Below [facility] Work Phone: Comment on above: Reference Range: 36. 0 - 46.0 Hemoglobin (Bld) [Mass/Vol] 12.1 g/dL See Below [facility] Work Phone: Comment on above: Reference Range: 12. 0 - 16.0 MCHC (RBC) [Mass/Vol] 32.1 g/dL See Below [facility] Work Phone: Comment on above: Reference Range: 32. 0 - 36.0 MCV (RBC) [Entitic vol] 89 fL 80 - 100 [facility] 202 Work Phone: Platelets (Bld) [#/Vol] 241 10*3/uL 150 - 450 [facility] Work Phone: RBC (Bld) [#/Vol] 4.23 {x10E12/L} See Below [facility] Work Phone: Comment on above: Reference Range: 4.0 0 - 5.20 WBC (Bld) [#/Vol] 18.1 10*3/uL above high threshold 4.4 - 11.3 -[facility] Work Phone: Magnesium, Serumon 2 Magnesium [Mass/Vol] 1.94 mg/dL See Below [facility] ommunity Vas [facility] Work Phone: Comment on above: Reference Range: 1.6 0 - 2.40 No Panel Informationon 08-01 0.0 {/100_WBC} 0.0 - 0.0 [facility] Work Phone: Renal Function Panelon 08-01 Albumin BCP dye [Mass/Vol] 3.6 g/dL 3.4 - 5.0 [facility] Work Phone: Anion gap [Moles/Vol] 9 mmol/L below low threshold 10 - 20 [facility] Work Phone: Calcium [Mass/Vol] 9.0 mg/dL 8.6 - 10.3 [facility] munity Vas [facility] Work Phone: Chloride [Moles/Vol] 101 mmol/L 98 - 107 [facility] ommunity Vas [facility] Work Phone: CO2 [Moles/Vol] 30 mmol/L 21 - 32 -[facility] it[facility] Vas [facility] Work Phone: Creatinine [Mass/Vol] 0.76 mg/dL See Below [facility] Work Phone: Comment on above: Reference Range: 0.5 0 - 1.05 Glucose [Mass/Vol] 131 mg/dL above high threshold 74 - 99 [facility] Work Phone: Phosphate [Mass/Vol] 3.4 mg/dL 2.5 - 4.9 [facility] Work Phone: Comment on above: The performance hilda acteristics of phosphorus testing in heparinized plasma have been validated by the individual laboratory site where testing is performed. Testing on heparinized plasma is not approved by the FDA; however, such approval is not necessary. Potassium [Moles/Vol] 4.2 mmol/L 3.5 - 5.3 [facility] Work Phone: Sodium [Moles/Vol] 136 mmol/L 136 - 145 [facility] Work Phone: Urea nitrogen [Mass/Vol] 21 mg/dL 6 - 23 [facility] Work Phone: Renal Function Panel 84 {mL/min/1.73m2} >90 [facility] Work Phone: Comment on above: CALCULATIONS OF GALILEA MATED GFR ARE PERFORMED USING THE 2020 CKD-EPI STUDY REFIT EQUATION WITHOUT THE RACE VARIABLE FOR THE IDMS-TRACEABLE CREATININE METHODS.https://jasn.asnjournals.org/content//ASN .3867328269 Laboratory - Hematology and Cell countson 07-31-2021 Erythrocyte distribution width (RBC) [Ratio] 15.7 % above high threshold See Below [facility] Work Phone: Comment on above: Reference Range: 11. 5 - 14.5 Hematocrit (Bld) [Volume fraction] 37.9 % See Below [facility] Work Phone: Comment on above: Reference Range: 36. 0 - 46.0 Hemoglobin (Bld) [Mass/Vol] 12.1 g/dL See Below [facility] Work Phone: Comment on above: Reference Range: 12. 0 - 16.0 MCHC (RBC) [Mass/Vol] 31.9 g/dL below low threshold See Below [facility] Work Phone: Comment on above: Reference Range: 32. 0 - 36.0 MCV (RBC) [Entitic vol] 90 fL 80 - 100 [facility] Work Phone: Platelets (Bld) [#/Vol] 257 10*3/uL 150 - 450 -[facility] Work Phone: RBC (Bld) [#/Vol] 4.20 {x10E12/L} See Below [facility] Work Phone: Comment on above: Reference Range: 4.0 0 - 5.20 WBC (Bld) [#/Vol] 12.3 10*3/uL above high threshold 4.4 - 11.3 [facility] Work Phone: Magnesium, Serumon 2 Magnesium [Mass/Vol] 1.90 mg/dL See Below [facility] Work Phone: Comment on above: Reference Range: 1.6 0 - 2.40 No Panel Informationon 07-31 0.0 {/100_WBC} 0.0 - 0.0 [facility] Work Phone: Renal Function Panelon 07-31 Albumin BCP dye [Mass/Vol] 3.5 g/dL 3.4 - 5.0 [facility] Work Phone: Anion gap [Moles/Vol] 12 mmol/L 10 - 20 -[facility] Work Phone: Calcium [Mass/Vol] 8.7 mg/dL 8.6 - 10.3 [facility] Work Phone: Chloride [Moles/Vol] 102 mmol/L 98 - 107 [facility] Work Phone: CO2 [Moles/Vol] 25 mmol/L 21 - 32 [facility] Work Phone: Creatinine [Mass/Vol] 0.79 mg/dL See Below [facility] Work Phone: Comment on above: Reference Range: 0.5 0 - 1.05 Glucose [Mass/Vol] 165 mg/dL above high threshold 74 - 99 [facility] Work Phone: Phosphate [Mass/Vol] 3.4 mg/dL 2.5 - 4.9 [facility] Work Phone: Comment on above: The performance hilda acteristics of phosphorus testing in heparinized plasma have been validated by the individual laboratory site where testing is performed. Testing on heparinized plasma is not approved by the FDA; however, such approval is not necessary. Potassium [Moles/Vol] 4.3 mmol/L 3.5 - 5.3 [facility] Work Phone: Sodium [Moles/Vol] 135 mmol/L below low threshold 136 - 145 [facility] Work Phone: Urea nitrogen [Mass/Vol] 16 mg/dL 6 - 23 [facility] Work Phone: Renal Function Panel 80 {mL/min/1.73m2} >90 [facility] Work Phone: Comment on above: CALCULATIONS OF GALILEA MATED GFR ARE PERFORMED USING THE 2020 CKD-EPI STUDY REFIT EQUATION WITHOUT THE RACE VARIABLE FOR THE IDMS-TRACEABLE CREATININE METHODS.https://jasn.asnjournals.org/content//ASN .5674021100 Radiologyon 07-30-2021 XR Chest Single view Normal [facility] Work Phone: Complete Blood Count + Diffe rentialon 07-28-2021 Basophils/100 WBC (Bld) 0.6 % 0.0 - 2.0 [facility] Work Phone: Erythrocyte distribution width (RBC) [Ratio] 15.4 % above high threshold See Below [facility] Work Phone: Comment on above: Reference Range: 11. 5 - 14.5 Hematocrit (Bld) [Volume fraction] 46.3 % above high threshold See Below [facility] Work Phone: Comment on above: Reference Range: 36. 0 - 46.0 Hemoglobin (Bld) [Mass/Vol] 14.9 g/dL See Below [facility] Work Phone: Comment on above: Reference Range: 12. 0 - 16.0 Lymphocytes/100 WBC (Bld) 25.7 % See Below [facility] Work Phone: Comment on above: Reference Range: 13. 0 - 44.0 MCHC (RBC) [Mass/Vol] 32.2 g/dL See Below [facility] Work Phone: Comment on above: Reference Range: 32. 0 - 36.0 MCV (RBC) [Entitic vol] 88 fL 80 - 100 [facility] Work Phone: Monocytes/100 WBC (Bld) 11.6 % 2.0 - 10.0 [facility] Work Phone: Neutrophils/100 WBC (Bld) 59.9 % See Below [facility] Work Phone: Comment on above: Reference Range: 40. 0 - 80.0 Platelets (Bld) [#/Vol] 307 10*3/uL 150 - 450 -[facility] Work Phone: RBC (Bld) [#/Vol] 5.24 {x10E12/L} above high threshold See Below [facility] Work Phone: Comment on above: Reference Range: 4.0 0 - 5.20 WBC (Bld) [#/Vol] 10.3 10*3/uL 4.4 - 11.3 [facility] Work Phone: Complete Blood Count + Differential 0.06 {x10E9/L} See Below [facility] Work Phone: Comment on above: Reference Range: 0.0 0 - 0.10 Complete Blood Count + Differential 0.19 {x10E9/L} See Below [facility] Work Phone: Comment on above: Reference Range: 0.0 0 - 0.40 Complete Blood Count + Differential 1.20 {x10E9/L} above high threshold See Below -[facility] Work Phone: Comment on above: Reference Range: 0.0 5 - 0.80 Complete Blood Count + Differential 2.65 {x10E9/L} See Below [facility] Work Phone: Comment on above: Reference Range: 0.8 0 - 3.00 Complete Blood Count + Differential 6.19 {x10E9/L} above high threshold See Below [facility] Work Phone: Comment on above: Reference Range: 1.6 0 - 5.50 Complete Blood Count + Differential 1.8 % 0.0 - 6.0 [facility] Work Phone: Complete Blood Count + Differential 0.4 % 0.0 - 0.9 [facility] Work Phone: Comment on above: Immature Granulocyte Count (IG) includes promyelocytes, myelocytes and metamyelocytes but does not include bands. Percent differential counts (%) should be interpreted in the context of the absolute cell counts (cells/L). Complete Blood Count + Differential 0.0 {/100_WBC} 0.0 - 0.0 [facility] Work Phone: Cult, Urineon 07-28-2021 Bacteria identified Cx Nom (U) [facility] Work Phone: Laboratory - Blood bankon ABO group Nom (Bld) [facility] Work Phone: Blood group antibody screen Ql Negative [facility] Work Phone: Rh immune globulin screen (Bld) [Interp] Positive [facility] Work Phone: Laboratory - Chemistry and C hemistry - challengeon 07-28-2021 Albumin BCP dye [Mass/Vol] 4.3 g/dL 3.4 - 5.0 [facility] Work Phone: ALP [Catalytic activity/Vol] 83 U/L 33 - 136 [facility] Work Phone: ALT With P-5'-P [Catalytic activity/Vol] 14 U/L 7 - 45 [facility] Work Phone: Comment on above: Patients treated wit h Sulfasalazine may generate falsely decreased results for ALT. Anion gap [Moles/Vol] 13 mmol/L 10 - 20 [facility] Work Phone: AST With P-5'-P [Catalytic activity/Vol] 18 U/L 9 - 39 [facility] Work Phone: Bilirubin [Mass/Vol] 0.4 mg/dL 0.0 - 1.2 -[facility] Work Phone: Calcium [Mass/Vol] 9.4 mg/dL 8.6 - 10.3 [facility] Work Phone: Chloride [Moles/Vol] 98 mmol/L 98 - 107 -[facility] Work Phone: CO2 [Moles/Vol] 29 mmol/L 21 - 32 [facility] Work Phone: Creatinine [Mass/Vol] 0.88 mg/dL See Below [facility] Work Phone: Comment on above: Reference Range: 0.5 0 - 1.05 Glucose [Mass/Vol] 142 mg/dL above high threshold 74 - 99 [facility] Work Phone: Potassium [Moles/Vol] 4.1 mmol/L 3.5 - 5.3 [facility] Work Phone: Protein [Mass/Vol] 7.8 g/dL 6.4 - 8.2 [facility] Work Phone: Sodium [Moles/Vol] 136 mmol/L 136 - 145 [facility] Work Phone: Urea nitrogen [Mass/Vol] 19 mg/dL 6 - 23 [facility] Work Phone: Laboratory - Coagulationon 0 - INR Coag (PPP) [Relative time] 1.2 {INR} above high threshold 0.9 - 1.1 [facility] Work Phone: PT Coag (PPP) [Time] 13.7 s above high threshold 9.8 - 13.4 [facility] Work Phone: Comment on above: Note new reference patricio chicas as of 04/06/2021 at 10:00am. No Panel Informationon 07-28 http://[facility] [email or web address] 1: [email or web address]/[email or web address]?RetrieveTestByD ateTime?BywyiejNQ=[email or web address] [id number]&Date=28-07-2021& Time=13%3a26%3a48%3a00 &TestType=ECG&Site=10& OutputType=PDF&Ext=PDF [facility] Work Phone: Electronic ventricul ar pacemaker [facility] Work Phone: Abnormal [facility] Work Phone: [phone] [facility] Work Phone: [phone] [facility] Work Phone: [phone] [facility] Work Phone: 10 1 [facility] Work Phone: [phone] [facility] Work Phone: -[phone] [facility] Work Phone: [phone] [facility] Work Phone: [phone] [facility] Work Phone: [phone] [facility] Work Phone: 65 [phone] [facility] Work Phone: [phone] [facility] Work Phone: 70 {mL/min/1.73m2} >90 [facility] Work Phone: Comment on above: CALCULATIONS OF GALILEA MATED GFR ARE PERFORMED USING THE 2020 CKD-EPI STUDY REFIT EQUATION WITHOUT THE RACE VARIABLE FOR THE IDMS-TRACEABLE CREATININE METHODS.https://jasn.asnjournals.org/content/early/ASN .2265245181 Urinalysison 07-28-2021 Color (U) YELLOW See Below [facility] Work Phone: Comment on above: Reference Range: STR AW,YELLOW Glucose Ql (U) Negative NEGATIVE [facility] Work Phone: Ketones Ql (U) Negative NEGATIVE [facility] Work Phone: Leukocyte esterase Test strip Ql (U) SMALL (1+) Abnormal NEGATIVE [facility] Work Phone: pH (U) 5.0 [pH] 5.0 - 8.0 [facility] Work Phone: Protein (U) [Mass/Vol] Negative NEGATIVE [facility] Work Phone: RBC (U) [#/Vol] Negative NEGATIVE [facility] Work Phone: Specific gravity (U) [Rel density] 1.013 1 See Below [facility] Work Phone: Comment on above: Reference Range: 1.0 05 - 1.035 Urinalysis Negative NEGATIVE [facility] Work Phone: Urinalysis <2.0 0.0 - 1.9 [facility] Work Phone: Urinalysis CLEAR CLEAR [facility] Work Phone: Urinalysis, Microscopicon Urinalysis, Microscopic 1+ [facility] Work Phone: Urinalysis, Microscopic 1 {/HPF} 0-5 [facility] Work Phone: Blood Pressure Cuff Sizeon 0 06-30-2021 Tobacco use status CPHS b) No DK-Nshwhxjhqv-Wr lakhwinder [address] [place] Work Phone: Blood Pressure Cuff Size Adult PC-Lokrymnxdx-Dv lakhwinder [address] [place] Work Phone: INFLUENZA A/B, COVID 2019 PC R,SYMPTOMATICon 04-17-2021 Date and time of symptom onset [id number] [facility] Work Phone: INFLUENZA A/B, COVID 2019 PCR,SYMPTOMATIC Not detected See Below [facility] Work Phone: Comment on above: Reference Range: Not Detected.This assay is designed to detect the N, ORF1ab and/or S genes of SARS-CoV-2 via nucleic acid amplification. A Negative (NOT DETECTED) result does not preclude 2019-nCoV infection since the adequacy of sample collection and/or low viral burden may result in presence of viral nucleic acids below the clinical sensitivity of this test method. Negative (NOT DETECTED) result should not be used as the sole basis for treatment or other patient management decisions. Rather negative results should be combined with clinical observations, patient history, and epidemiological information to make patient management decisions.Fact sheet for providers: https://www.fda.gov/media/235364/downloadFact sheet for patients: https://www.fda.gov/media/001344/downloadThis test has received FDA Emergency Use Authorization (EUA) and has been verified by [facility] ([facility]). This test is only authorized for the duration of time that circumstances exist to justify the authorization of the emergency use of in vitro diagnostic tests for the detection of SARS-CoV-2 virus and/or diagnosis of COVID-19 infection under section 564(b)(1) of the Act, 21 U.S.C. 360bbb-3(b)(1), unless the authorization is terminated or revoked sooner. [facility] is certified under CLIA-88 as qualified to perform high complexity testing. Testing is performed in the [facility] laboratories located at [address] [place] [address]. Reference Range: Not Detected Respiratory virus testing is performed routinely by PCR for Influenza A/B and RSV. If Influenza and RSV PCR are negative, testing for parainfluenza 1,2,3 viruses and adenovirus is routinely performed for oncology inpatients and intensive care unit patients at [facility] and is available on request on other patients by calling Laboratory Client Services at [phone] Not Detected results do not preclude Influenza A/B or RSV infections since the adequacy of sample collection or low viral burden may impact the clinical sensitivity of this test method..The TaqManTM SARS-CoV-2, Flu A, Flu B Multiplex Assay is a multiplex, real-time RT-PCR assay for the detection of RNA from the SARS-CoV-2, Influenza A, and Influenza B viruses. A negative result does not preclude the possibility of SARS-CoV-2, Influenza A, or Influenza B infections, and should not be used as the sole basis for patient management decision as a negative result may be caused by very low levels of infection, collection errors, or testing errors. .This test was developed and its performance characteristics were determined by the Microbiology Laboratory, Department of Pathology, [facility], [place], [place]. It has not been cleared or approved by the US Food and Drug Administration; however, FDA clearance or approval is not currently required for clinical use. This test should not be regarded as investigational or for research purposes. SOURCE: Nasal, Nasop haryngealReference Range: Not Detected Respiratory virus testing is performed routinely by PCR for Influenza A/B and RSV. If Influenza and RSV PCR are negative, testing for parainfluenza 1,2,3 viruses and adenovirus is routinely performed for oncology inpatients and intensive care unit patients at [facility] and is available on request on other patients by calling Laboratory Client Services at [phone]. Not Detected results do not preclude Influenza A/B or RSV infections since the adequacy of sample collection or low viral burden may impact the clinical sensitivity of this test method. Radiologyon 04-17-2021 XR Chest 2 Views Normal [facility] Work Phone: Tobacco Screening.on 021 Tobacco use status [facility] b) No [facility] Work Phone: Mamm - Screening Mammogram w / Tomosynthesison 04-08-2021 MG Breast Screening Normal [facility] Work Phone: MG Breast Screening Please click on the link to view the study images Normal [facility] Work Phone: Hemoglobin A1Con 03-18-2021 Glucose [Mass/Vol] 134 mg/dL [facility] Work Phone: HbA1c (Bld) [Mass fraction] 6.3 % Abnormal -[facility] Work Phone: Comment on above: Diagnosis of Diabete s-Adults Non-Diabetic: < or = 5.6% Increased risk for developing diabetes: 5.7-6.4% Diagnostic of diabetes: > or = 6.5%. Monitoring of Diabetes Age (y) Therapeutic Goal (%) Adults: >18 <7.0 Pediatrics: 13-18 <7.5 7-12 <8.0 0- 6 7.5-8.5 [place] [employer]. Diabetes Care 33(S1), May 2009. IO UA (nonautomated w/o micr oscopy)on 03-18-2021 Protein (U) [Mass/Vol] Negative -[facility] Work Phone: IO UA (nonautomated w/o microscopy) Normal (0.2-1.0 mg/dl) [facility] Work Phone: IO UA (nonautomated w/o microscopy) Negative [facility] Work Phone: IO UA (nonautomated w/o microscopy) 5.0 1 [facility] Work Phone: IO UA (nonautomated w/o microscopy) 1.000 1 -[facility] Work Phone: IO UA (nonautomated w/o microscopy) Clear -[facility] Work Phone: IO UA (nonautomated w/o microscopy) Yellow -[facility] Work Phone: Laboratory - Chemistry and C hemistry - challengeon 03-18-2021 Anion gap [Moles/Vol] 13 mmol/L 10 - 20 -[facility] Work Phone: Calcium [Mass/Vol] 9.4 mg/dL 8.6 - 10.6 [facility] Work Phone: Chloride [Moles/Vol] 102 mmol/L 98 - 107 [facility] Work Phone: CO2 [Moles/Vol] 29 mmol/L 21 - 32 [facility] Work Phone: Creatinine [Mass/Vol] 0.92 mg/dL See Below -[facility] Work Phone: Comment on above: Reference Range: 0.5 0 - 1.05 Glucose [Mass/Vol] 150 mg/dL above high threshold 74 - 99 [facility] Work Phone: Potassium [Moles/Vol] 4.0 mmol/L 3.5 - 5.3 [facility] Work Phone: Sodium [Moles/Vol] 140 mmol/L 136 - 145 [facility] Work Phone: Urea nitrogen [Mass/Vol] 17 mg/dL 6 - 23 -[facility] Work Phone: No Panel Informationon 03-18 73 {mL/min/1.73m2} >60 [facility] Work Phone: Comment on above: CALCULATIONS OF GALILEA MATED GFR ARE PERFORMED USING THE MDRD STUDY EQUATION FOR THE IDMS-TRACEABLE CREATININE METHODS. CLIN CHEM 2007;53:766-72 60 {mL/min/1.73m2} Abnormal >60 -[facility] Work Phone: No Panel Informationon 01-21 Please click on the link to view the study images Normal [facility] Work Phone: Tobacco Screening.on Fall risk assessment a) No falls within the last year XS-Eicczqkeqt-Ql lakhwinder [address] [place] Work Phone: Tobacco use status [facility] b) No EW-Btulvwghws-Ug lakhwinder [address] [place] Work Phone: Tobacco Screening.on Fall risk assessment a) No falls within the last year [facility] Work [facility]: Tobacco use status [facility] b) No [facility] Work Phone: Tobacco Screening.on Fall risk assessment b) One or more fall s in the last year [facility] Work Phone: Tobacco use status [facility] b) No [facility] Work Phone: IO UA (nonautomated w/o micr oscopy)on 11-17-2020 Protein (U) [Mass/Vol] Negative [facility] Work Phone: IO UA (nonautomated w/o microscopy) Normal [facility] Work Phone: IO UA (nonautomated w/o microscopy) Negative [facility] Work Phone: IO UA (nonautomated w/o microscopy) 6.0 1 [facility] Work Phone: IO UA (nonautomated w/o microscopy) 1.010 1 [facility] Work Phone: IO UA (nonautomated w/o microscopy) Clear [facility] Work Phone: IO UA (nonautomated w/o microscopy) Yellow -[facility] Work Phone: Tobacco Screening.on 021 Fall risk assessment a) No falls within the last year -[facility] Work Phone: Tobacco use status [facility] b) No -[facility] Work Phone: Tobacco Screening.on 021 Tobacco use status [facility] b) No -[facility] Work Phone: Laboratory - Chemistry and C hemistry - challengeon 09-23-2020 Anion gap [Moles/Vol] 12 mmol/L 10 - 20 XV-Djnxcudnua-En lakhwinder [address] [place] Work Phone: Calcium [Mass/Vol] 9.5 mg/dL 8.6 - 10.6 [facility]-Me lakhwinder [address] [place] Work Phone: Chloride [Moles/Vol] 103 mmol/L 98 - 107 [facility] ardiology-Me lakhwinder [address] [place] Work Phone: CO2 [Moles/Vol] 28 mmol/L 21 - 32 MP-Cardio logy-Me lakhwinder [address] [place] Work Phone: Creatinine [Mass/Vol] 0.78 mg/dL See Below WT-Czdhjxypai-Uu lakhwinder [address] [place] Work Phone: Comment on above: Reference Range: 0.5 0 - 1.05 Glucose [Mass/Vol] 130 mg/dL above high threshold 74 - 99 UK-Nyboefuwdq-Uk lakhwinder [address] [place] Work Phone: Potassium [Moles/Vol] 4.1 mmol/L 3.5 - 5.3 OX-Feknelthio-Ue lakhwinder [address] [place] Work Phone: Sodium [Moles/Vol] 139 mmol/L 136 - 145 [facility] lakhwinder [address] [place] Work Phone: Urea nitrogen [Mass/Vol] 21 mg/dL 6 - 23 VO-Axilmsxqrl-Fc lakhwinder [address] [place] Work Phone: No Panel Informationon 09-23 >60 >60 [facility]- Me lakhwinder [address] [place] Work Phone: Comment on above: CALCULATIONS OF GALILEA MATED GFR ARE PERFORMED USING THE MDRD STUDY EQUATION FOR THE IDMS-TRACEABLE CREATININE METHODS. CLIN CHEM 2007;53:766-72 Tobacco Screening.on 021 Fall risk assessment a) No falls within the last year PA-Vzfmnabath-Hw rma Work Phone: Tobacco Screening. b) No [facility]Pa [facility] Work Phone: Laboratory - Chemistry and C hemistry - challengeon 09-08-2020 Urea nitrogen [Mass/Vol] 25.0 mg/dL Normal EH-Qlqsdjqfqr-Kw rma Work Phone: No Panel Informationon 09-08 282 {mOsm/kg} Normal 275-295 [facility] gy[facility] Work Phone: >60 Normal [facility] Work Phone: Comment on above: GFR CalcMedical judgement is necessary to interpret GFR. The calculated GFR may not accurately reflect renal status in patients >70 years, women, acutely ill hospitalized patients and patients with acute renal failure or known renal disease. The MDRD GFR formula is valid only for adults greater than 18 years of age.Note:Creatinine clearance (not GFR) should be used for drug dosing. 52 {mL/min/1.73m?} Normal [facility] Work Phone: Comment on above: Non GFR CalcMedical judgement is necessary to interpret GFR. The calculated GFR may not accurately reflect renal status in patients >70 years, women, acutely ill hospitalized patients and patients with acute renal failure or known renal disease. The MDRD GFR formula is valid only for adults greater than 18 years of age.Note:Creatinine clearance (not GFR) should be used for drug dosing. 26 mg/dL above high threshold 10-20 EQ-Mkilajaqum-Uu rma Work Phone: 4.3 mmol/L Normal 3.5-5.1 [facility] Pa [facility] Work Phone: 9.2 mg/dL Normal 8.5-10.5 [facility] Work Phone: 31.2 mmol/L Normal 21.0-32.0 [facility]Pa [facility] Work Phone: 1.0 mg/dL Normal 0.6-1.0 [facility] Work Phone: 137 mmol/L Normal 135-145 [facility] Work Phone: 98 mmol/L below low threshold 100-109 PI-Tietacdwhk-Wa rma Work Phone: 159 mg/dL above high threshold 72-100 VO-Vnslbofynz-Kt rma Work Phone: Comment on above: Venipuncture should occur prior to sulfasalazine administration due to the potential for falsely depressed results. Venipuncture should occur prior to sulfapyridine administration due to the potential falsely elevated results.Baseline assay values before administration of sulfasalazine and sulfapyridine therapy would not be affected. Radiologyon 09-08-2020 XR Chest PA and Lateral Normal BD-Cxdeonnfnf-Ff rma Work Phone: Falls Risk Screeningon 09-03 Fall risk assessment a) No falls within the last year XE-Gofpeamomf-Gd rma Work Phone: Hemoglobin A1Con 04-13-2020 HbA1c (Bld) [Mass fraction] 134 {MG/DL} [facility] Work Phone: HbA1c (Bld) [Mass fraction] 6.3 % [facility] Work Phone: Comment on above: Diagnosis of Diabete s-Adults Non-Diabetic: < or = 5.6% Increased risk for developing diabetes: 5.7-6.4% Diagnostic of diabetes: > or = 6.5%. Monitoring of Diabetes Age (y) Therapeutic Goal (%) Adults: >18 <7.0 Pediatrics: 13-18 <7.5 7-12 <8.0 0- 6 7.5-8.5 [place] [employer]. Diabetes Care 33(S1), May 2009. Lipid Panelon 04-13-2020 Cholesterol [Mass/Vol] 196 mg/dL 0 - 199 [facility] Work Phone: Comment on above: . AGE DESIRABLE BORD TESFAYE HIGH HIGH 0-19 Y 0 - 169 170 - 199 >/= 200 20-24 Y 0 - 189 190 - 224 >/= 225 >24 Y 0 - 199 200 - 239 >/= 240 All ranges are based on fasting samples. Specific therapeutic targets will vary based on patient-specific cardiac risk.. Pediatric guidelines reference:Pediatrics 2011, 128(S5). Adult guidelines reference: NCEP ATPIII Guidelines, OSCAR 2001, 258:2486-97. Venipuncture immediately after or during the administration of Metamizole may lead to falsely low results. Testing should be performed immediately prior to Metamizole dosing. Cholesterol in HDL [Mass/Vol] 69.2 mg/dL [facility] Work Phone: Comment on above: . AGE VERY LOW LOW N ORMAL HIGH 0-19 Y < 35 < 40 40-45 ---- 20- 24 Y ---- < 40 >45 ---- >24 Y ---- < 40 40-60 >60. Cholesterol in LDL [Mass/Vol] 86 mg/dL 0 - 99 [facility] Work Phone: Comment on above: . NEAR BORD AGE MRARY RABLE OPTIMAL HIGH HIGH VERY HIGH 0-19 Y 0 - 109 --- 110-129 >/= 130 ---- 20-24 Y 0 - 119 --- 120-159 >/= 160 ---- >24 Y 0 - 99 100-129 130-159 160-189 >/=190. Cholesterol non HDL [Mass/Vol] 127 mg/dL [facility] Work Phone: Comment on above: AGE DESIRABLE BORDER LINE HIGH HIGH VERY HIGH 0-19 Y 0 - 119 120 - 144 >/= 145 >/= 160 20-24 Y 0 - 149 150 - 189 >/= 190 ---- >24 Y 30 MG/DL ABOVE LDL CHOLESTEROL GOAL. Cholesterol.total/Ch olesterol in HDL [Mass ratio] 2.8 {ratio} [facility] Work Phone: Comment on above: REF VALUESDESIRABLE < 3.4HIGH RISK > 5.0 Triglyceride [Mass/Vol] 204 mg/dL above high threshold 0 - 149 [facility] Work Phone: Comment on above: . AGE DESIRABLE BORD TESFAYE HIGH HIGH VERY HIGH 0 D-90 D 19 - 174 ---- ---- ----91 D- 9 Y 0 - 74 75 - 99 >/= 100 ---- 10-19 Y 0 - 89 90 - 129 >/= 130 ---- 20-24 Y 0 - 114 115 - 149 >/= 150 ---- >24 Y 0 - 149 150 - 199 200- 499 >/= 500. Venipuncture immediately after or during the administration of Metamizole may lead to falsely low results. Testing should be performed immediately prior to Metamizole dosing. Lipid Panel 41 mg/dL above high threshold 0 - 40 [facility] Work Phone: Metabolic Panelon 04-13-2020 ALP [Catalytic activity/Vol] 84 U/L 33 - 136 [facility] Work Phone: Anion gap [Moles/Vol] 14 mmol/L 10 - 20 [facility] Work Phone: Bilirubin [Mass/Vol] 0.4 mg/dL 0.0 - 1.2 -[facility] Work Phone: Calcium [Mass/Vol] 9.7 mg/dL 8.6 - 10.6 -[facility] Work Phone: Chloride [Moles/Vol] 103 mmol/L 98 - 107 -[facility] Work Phone: CO2 [Moles/Vol] 24 mmol/L 21 - 32 -[facility] Work Phone: Creatinine [Mass/Vol] 0.72 mg/dL See Below -[facility] Work Phone: Comment on above: Reference Range: 0.5 0 - 1.05 Glucose [Mass/Vol] 138 mg/dL above high threshold 74 - 99 [facility] Work Phone: Potassium [Moles/Vol] 4.4 mmol/L 3.5 - 5.3 -[facility] Work Phone: Protein [Mass/Vol] 7.3 g/dL 6.4 - 8.2 -[facility] Work Phone: Sodium [Moles/Vol] 137 mmol/L 136 - 145 -[facility] Work Phone: Urea nitrogen [Mass/Vol] 17 mg/dL 6 - 23 [facility] Work Phone: Otheron 04-13-2020 Albumin BCP dye [Mass/Vol] 4.2 g/dL 3.4 - 5.0 [facility] Work Phone: ALT With P-5'-P [Catalytic activity/Vol] 17 U/L 7 - 45 [facility] Work Phone: Comment on above: Patients treated wit h Sulfasalazine may generate falsely decreased results for ALT. AST With P-5'-P [Catalytic activity/Vol] 18 U/L 9 - 39 [facility] Work Phone: >60 >60 [facility] Work Phone: Comment on above: CALCULATIONS OF GALILEA MATED GFR ARE PERFORMED USING THE MDRD STUDY EQUATION FOR THE IDMS-TRACEABLE CREATININE METHODS. CLIN CHEM 2007;53:766-72 Coronavirus 2019 RNA by PCR, Symptomaticon 03-10-2020 EMPLOYED IN HEALTHCARE No [facility] Work Phone: Comment on above: COVID CALLED TO ABISAI QUACH, 03/11/2020 13:24 FIRST COVID NASAL SWAB TEST? Unknown [facility] Work Phone: Comment on above: COVID CALLED TO CLAI RE, 03/11/2020 13:24 ICU? No [facility] Work Phone: Comment on above: COVID CALLED TO CLAI RE, 03/11/2020 13:24 Patient was hospitalized because of this condition No [facility] [employer] [facility] Work Phone: Comment on above: COVID CALLED TO CLAI RE, 03/11/2020 13:24 status Unknown [facility] Work Phone: Comment on above: COVID CALLED TO CLAI RE, 03/11/2020 13:24 RESIDENT IN CONGREGATE CARE SETTING? No [facility] [employer] [facility] Work Phone: Comment on above: COVID CALLED TO CLAI RE, 03/11/2020 13:24 SYMPTOMATIC DEFINED BY CDC Yes [facility] Work Phone: Comment on above: COVID CALLED TO CLAI RE, 03/11/2020 13:24 When did you start to experience these symptoms [Date and time] [PhenX] [id number] [facility] Work Phone: Comment on above: COVID CALLED TO CLAI RE, 03/11/2020 13:24 Coronavirus 2019 RNA by PCR, Symptomatic DETECTED Abnormal See Below [facility] [employer] Phone: Comment on above: SOURCE: Nasal, Nasop haryngealReference Range: Not Detected.This assay is designed to detect the N, ORF1ab and/or S genes of SARS-CoV-2 via nucleic acid amplification. A Negative (NOT DETECTED) result does not preclude 2019-nCoV infection since the adequacy of sample collection and/or low viral burden may result in presence of viral nucleic acids below the clinical sensitivity of this test method. Negative (NOT DETECTED) result should not be used as the sole basis for treatment or other patient management decisions. Rather negative results should be combined with clinical observations, patient history, and epidemiological information to make patient management decisions.Fact sheet for providers: https://www.fda.gov/media/218497/downloadFact sheet for patients: https://www.fda.gov/media/112287/downloadThis test has received FDA Emergency Use Authorization (EUA) and has been verified by [facility] ([facility]). This test is only authorized for the duration of time that circumstances exist to justify the authorization of the emergency use of in vitro diagnostic tests for the detection of SARS-CoV-2 virus and/or diagnosis of COVID-19 infection under section 564(b)(1) of the Act, 21 U.S.C. 360bbb-3(b)(1), unless the authorization is terminated or revoked sooner. [facility] is certified under CLIA-88 as qualified to perform high complexity testing. Testing is performed in the [facility] laboratories located at [address] [place] [address].COVID CALLED TO PATO, 03/11/2020 13:24 COVID CALLED TO ABISAI QUACH, 03/11/2020 13:24 Metabolic Panelon 10-15-2019 Glucose [Mass/Vol] 115 mg/dL above high threshold 74 - 99 [facility] Work Phone: Glucose [Mass/Vol] 131 mg/dL above high threshold 74 - 99 [facility] Work Phone: Otheron 10-15-2019 Name KAITLYN MUÑOZ Pathologist: GURDEEP BLUMate of Procedure: 10/15/2019Date Received: 10/15/2019Date Reported 10/16/2019Submitting Physician: Zak López MDLocation: Other External # FINAL DIAGNOSISLEFT WRIST, GANGLION CYST, EXCISION:-- GANGLION CYST. Electronically Signed Out By PAO PHAM MD/Ceasar the signature on this report, the individual or group listed as making theFinal Interpretation/Diagnos is certifies that they have reviewed this case. Microscopic Description:All slides are examined microscopically and the diagnosis is stated above.Clinical History:Ganglion of left forearmExcision ganglion left wristSpecimens Submitted As:A: GANGLION CYST LEFT WRIST Gross Description:Received in formalin, labeled with the patient's name and hospital number and"ganglion cyst left wrist", is a single irregular fragment of white fibroustissue measuring 1.4 x 0.7 x 0.6 cm. The specimen [facility] [place] [facility] [place]/10/14 [facility] Work Phone: Otheron 10-12-2019 NOT DETECTED See Below -[facility] Work Phone: Comment on above: SOURCE: Nasal, Nasop haryngealReference Range: Not Detected.This assay is designed to detect SARS-CoV-2 based on replication of specific regions of the RNA from the SARS-CoV-2 virus. A Not Detected result does not preclude 2019-nCoV infection since the adequacy of sample collection and/or low viral burden may result in presence of viral nucleic acids below the clinical sensitivity of this test method. Fact sheet for providers: https://www.fda.gov/media/644892/downloadFact sheet for patients: https://www.fda.gov/media/367147/downloadThis test has been validated by the recruitment consultant but [facility] independent review of this validation is pending. This test has been verified by [facility] ([facility]). This test is only authorized for the duration of time that circumstances exist to justify the authorization of the emergency use of in vitro diagnostic tests for the detection of SARS-CoV-2 virus and/or diagnosis of COVID-19 infection under section 564(b)(1) of the Act, 21 U.S.C. 360bbb-3(b)(1), unless the authorization is terminated or revoked sooner. [facility] is certified under CLIA-88 as qualified to perform high complexity testing. Testing is performed in the [facility] laboratories located at [address] [place] [address]. Hematologyon 07-04-2019 Hematocrit (Bld) [Volume fraction] 44.6 % See Below [facility] Work Phone: Comment on above: Reference Range: 36. 0 - 46.0 Ordering Provider: Marcus PLATA MANDAT 18744 Hemoglobin (Bld) [Mass/Vol] 14.5 g/dL See Below [facility] Work Phone: Comment on above: Reference Range: 12. 0 - 16.0 Ordering Provider: Marcus VAZQUEZAT 48872 MCV (RBC) [Entitic vol] 91 fL 80 - 100 [facility] Work Phone: Comment on above: Ordering Provider: Marcus GUERREROS MANDAT 63791 Platelets (Bld) [#/Vol] 294 {x10E9/L} 150 - 450 [facility] Work Phone: Comment on above: Ordering Provider: Marcus GUERREROS MANDAT 90936 RBC (Bld) [#/Vol] 4.91 {x10E12/L} See Below [facility] Work Phone: Comment on above: Reference Range: 4.0 0 - 5.20 Ordering Provider: Marcus GUERREROS MANDAT 21258 WBC (Bld) [#/Vol] 0.0 {/100_WBC} 0.0 - 0.0 [facility] Work Phone: Comment on above: Ordering Provider: Marcus GUERREROS MANDAT 18315 WBC (Bld) [#/Vol] 11.2 {x10E9/L} 4.4 - 11.3 [facility] Work Phone: Comment on above: Ordering Provider: Marcus GUERREROS MANDAT 31675 Metabolic Panelon 07-04-2019 ALP [Catalytic activity/Vol] 74 U/L 33 - 136 [facility] Work Phone: Comment on above: Ordering Provider: Marcus HOMAS MANDAT 61114 Anion gap [Moles/Vol] 12 mmol/L 10 - 20 [facility] Work Phone: Comment on above: Ordering Provider: Marcus HOMAS MANDAT 06732 Bilirubin [Mass/Vol] 0.6 mg/dL 0.0 - 1.2 [facility] Work Phone: Comment on above: Ordering Provider: Marcus HOMAS MANDAT 46996 Calcium [Mass/Vol] 9.4 mg/dL 8.6 - 10.3 [facility] Work Phone: Comment on above: Ordering Provider: T HOMAS MANDAT 57516 Chloride [Moles/Vol] 100 mmol/L 98 - 107 [facility] Work Phone: Comment on above: Ordering Provider: T HOMAS MANDAT 43140 CO2 [Moles/Vol] 29 mmol/L 21 - 32 [facility] Work Phone: Comment on above: Ordering Provider: T HOMAS MANDAT 57280 Creatinine [Mass/Vol] 0.70 mg/dL See Below [facility] Work Phone: Comment on above: Reference Range: 0.5 0 - 1.05 Ordering Provider: T HOMAS MANDAT 34575 Glucose [Mass/Vol] 112 mg/dL above high threshold 74 - 99 [facility] Work Phone: Comment on above: Ordering Provider: Marcus HOMAS MANDAT 42707 Potassium [Moles/Vol] 4.4 mmol/L 3.5 - 5.3 [facility] Work Phone: Comment on above: Ordering Provider: T HOMAS MANDAT 35172 Protein [Mass/Vol] 6.8 g/dL 6.4 - 8.2 [facility] Work Phone: Comment on above: Ordering Provider: T HOMAS MANDAT 35108 Sodium [Moles/Vol] 137 mmol/L 136 - 145 [facility] Work Phone: Comment on above: Ordering Provider: Marcus HOMAS MANDAT 58421 Urea nitrogen [Mass/Vol] 21 mg/dL 6 - 23 [facility] Work Phone: Comment on above: Ordering Provider: Marcus VAZQUEZAT 75878 Otheron 07-04-2019 Albumin BCP dye [Mass/Vol] 3.7 g/dL 3.4 - 5.0 [facility] Work Phone: Comment on above: Ordering Provider: Marcus VAZQUEZAT 73035 ALT With P-5'-P [Catalytic activity/Vol] 40 U/L 7 - 45 [facility] Work Phone: Comment on above: Patients treated wit h Sulfasalazine may generate falsely decreased results for ALT. Ordering Provider: Marcus VAZQUEZAT 14858 AST With P-5'-P [Catalytic activity/Vol] 24 U/L 9 - 39 [facility] Work Phone: Comment on above: Ordering Provider: Marcus VAZQUEZAT 11999 Erythrocyte distribution width (RBC) [Ratio] 14.1 % See Below [facility] Work Phone: Comment on above: Reference Range: 11. 5 - 14.5 Ordering Provider: Marcus VAZQUEZAT 97284 MCHC (RBC) [Mass/Vol] 32.5 g/dL See Below [facility] Work Phone: Comment on above: Reference Range: 32. 0 - 36.0 Ordering Provider: Marcus VAZQUEZAT 43864 >60 >60 [facility] Work Phone: Comment on above: CALCULATIONS OF GALILEA MATED GFR ARE PERFORMED USING THE MDRD STUDY EQUATION FOR THE IDMS-TRACEABLE CREATININE METHODS. CLIN CHEM 2007;53:766-72 Ordering Provider: Marcus VAZQUEZAT 67014 Hematologyon 07-03-2019 Hematocrit (Bld) [Volume fraction] 42.7 % See Below [facility] Work Phone: Comment on above: Reference Range: 36. 0 - 46.0 Ordering Provider: Marcus VAZQUEZAT 98542 Hemoglobin (Bld) [Mass/Vol] 14.1 g/dL See Below [facility] Work Phone: Comment on above: Reference Range: 12. 0 - 16.0 Ordering Provider: Marcus GUERREROS MANDAT 70730 MCV (RBC) [Entitic vol] 91 fL 80 - 100 [facility] Work Phone: Comment on above: Ordering Provider: Marcus HOMAS MANDAT 37574 Platelets (Bld) [#/Vol] 260 {x10E9/L} 150 - 450 [facility] Work Phone: Comment on above: Ordering Provider: Marcus HOMAS MANDAT 25151 RBC (Bld) [#/Vol] 4.71 {x10E12/L} See Below [facility] Work Phone: Comment on above: Reference Range: 4.0 0 - 5.20 Ordering Provider: Marcus HOMAS MANDAT 48282 WBC (Bld) [#/Vol] 0.0 {/100_WBC} 0.0 - 0.0 [facility] Work Phone: Comment on above: Ordering Provider: Marcus HOMAS MANDAT 66090 WBC (Bld) [#/Vol] 13.4 {x10E9/L} above high threshold 4.4 - 11.3 [facility] Work Phone: Comment on above: Ordering Provider: Marcus HOMAS MANDAT 52340 Metabolic Panelon 07-03-2019 ALP [Catalytic activity/Vol] 66 U/L 33 - 136 [facility] Work Phone: Comment on above: Ordering Provider: Marcus HOMAS MANDAT 63801 Anion gap [Moles/Vol] 11 mmol/L 10 - 20 [facility] Work Phone: Comment on above: Ordering Provider: Marcus HOMAS MANDAT 97011 Bilirubin [Mass/Vol] 0.7 mg/dL 0.0 - 1.2 [facility] Work Phone: Comment on above: Ordering Provider: Marcus HOMAS MANDAT 02110 Calcium [Mass/Vol] 9.3 mg/dL 8.6 - 10.3 [facility] Work Phone: Comment on above: Ordering Provider: T HOMAS MANDAT 52112 Chloride [Moles/Vol] 103 mmol/L 98 - 107 [facility] Work Phone: Comment on above: Ordering Provider: T HOMAS MANDAT 24216 CO2 [Moles/Vol] 29 mmol/L 21 - 32 [facility] Work Phone: Comment on above: Ordering Provider: T HOMAS MANDAT 02250 Creatinine [Mass/Vol] 0.71 mg/dL See Below [facility] Work Phone: Comment on above: Reference Range: 0.5 0 - 1.05 Ordering Provider: T HOMAS MANDAT 97826 Glucose [Mass/Vol] 105 mg/dL above high threshold 74 - 99 [facility] Work Phone: Comment on above: Ordering Provider: T HOMAS MANDAT 14130 Potassium [Moles/Vol] 3.9 mmol/L 3.5 - 5.3 [facility] Work Phone: Comment on above: Ordering Provider: T HOMAS MANDAT 55934 Protein [Mass/Vol] 6.8 g/dL 6.4 - 8.2 [facility] Work Phone: Comment on above: Ordering Provider: T HOMAS MANDAT 53650 Sodium [Moles/Vol] 139 mmol/L 136 - 145 [facility] [facility] Work Phone: Comment on above: Ordering Provider: T HOMAS MANDAT 99054 Urea nitrogen [Mass/Vol] 19 mg/dL 6 - 23 [facility] Work Phone: Comment on above: Ordering Provider: Marcus HOMAS MANDAT 67845 Otheron 07-03-2019 XR Chest 2 views Interpreted by: ARIELLE AGEE [id number]/26/20 13:51MRN: [id number] Name: LEATHA PAU STUDY:TH CHEST 2 VIEW PA AND LAT; 07/03/2019 1:08 pm INDICATION:sob. COMPARISON:07/01/2019. ORDERING CLINICIAN:RUMA JORDAN FINDINGS:CARDIOMEDIAST INAL SILHOUETTE:Cardiomegal y, aortic calcification, postoperative changes of themediastinum and right side dual lead cardiac pacing device is similarto prior. LUNGS:Irregular bibasilar infiltrates and/or atelectasis, left greater thanright, are similar to prior. Small pleural effusions not excluded. Noappreciable pneumothorax. ABDOMEN:No remarkable upper abdominal findings. BONES:There is osteopenia with mild increased thoracic kyphosis and mildthoracic dextrocurvature. IMPRESSION:1. Irregular bibasilar infiltrates and atelectasis, left greater thanright, similar to prior. Electronically signed by: ARIELLE MARTEL 07/03/19 13:51 Normal [facility] Work Phone: Comment on above: Ordering Provider: T SHERLYN JORDAN 89251 Albumin BCP dye [Mass/Vol] 3.7 g/dL 3.4 - 5.0 [facility] Work Phone: Comment on above: Ordering Provider: T HOMADarya VAZQUEZAT 11578 ALT With P-5'-P [Catalytic activity/Vol] 42 U/L 7 - 45 [facility] Work Phone: Comment on above: Patients treated wit h Sulfasalazine may generate falsely decreased results for ALT. Ordering Provider: T HOMAS TAYLORAT 48693 AST With P-5'-P [Catalytic activity/Vol] 28 U/L 9 - 39 [facility] Work Phone: Comment on above: Ordering Provider: T HOMAS MANDAT 31067 Erythrocyte distribution width (RBC) [Ratio] 14.0 % See Below [facility] Work Phone: Comment on above: Reference Range: 11. 5 - 14.5 Ordering Provider: T SHERLYN VAZQUEZAT 28677 MCHC (RBC) [Mass/Vol] 33.0 g/dL See Below [facility] Work Phone: Comment on above: Reference Range: 32. 0 - 36.0 Ordering Provider: Marcus JORDAN 32346 >60 >60 [facility] Work Phone: Comment on above: Ordering Provider: Marcus JORDAN 49094 CALCULATIONS OF GALILEA MATED GFR ARE PERFORMED USING THE MDRD STUDY EQUATION FOR THE IDMS-TRACEABLE CREATININE METHODS. CLIN CHEM 2007;53:766-72 Vancomycin Level, Troughon 0 07-03-2019 Vancomycin trough [Mass/Vol] 15.1 ug/mL 5.0 - 20.0 [facility] Work Phone: Comment on above: Vancomycin levels sh ould be interpreted in conjunction with the dose, disease being treated, vancomycin SARAH, time of draw (trough concentrations should be obtained just before the next dose at steady-state), and other clinical information. Trough concentrations of 15-20 ug/mL are desired for severe infections. Ref.: Am J Health-Syst Pharm 66: 83-98, 2008. Ordering Provider: Marcus JORDAN 51964 Complete Blood Count + Diffe rentialon 07-02-2019 Basophils (Bld) [#/Vol] 0.03 {x10E9/L} See Below [facility] Work Phone: Comment on above: Reference Range: 0.0 0 - 0.10 Ordering Provider: Marcus JORDAN 67269 Basophils/100 WBC (Bld) 0.2 % 0.0 - 2.0 [facility] Work Phone: Comment on above: Ordering Provider: Marcus VAZQUEZAT 01060 Eosinophils (Bld) [#/Vol] 0.01 {x10E9/L} See Below [facility] Work Phone: Comment on above: Reference Range: 0.0 0 - 0.70 Ordering Provider: Marcus VAZQUEZAT 26870 Eosinophils/100 WBC (Bld) 0.1 % 0.0 - 6.0 [facility] Work Phone: Comment on above: Ordering Provider: Marcus JORDAN 30573 Erythrocyte distribution width (RBC) [Ratio] 14.6 % above high threshold See Below [facility] Work Phone: Comment on above: Reference Range: 11. 5 - 14.5 Ordering Provider: Marcus JORDAN 56313 Hematocrit (Bld) [Volume fraction] 41.9 % See Below [facility] Work Phone: Comment on above: Reference Range: 36. 0 - 46.0 Ordering Provider: Marcus VAZQUEZAT 35753 Hemoglobin (Bld) [Mass/Vol] 13.6 g/dL See Below [facility] Work Phone: Comment on above: Reference Range: 12. 0 - 16.0 Ordering Provider: Marcus JORDAN 22753 Lymphocytes (Bld) [#/Vol] 2.90 {x10E9/L} See Below [facility] Work Phone: Comment on above: Reference Range: 1.2 0 - 4.80 Ordering Provider: Marcus VAZQUEZAT 20440 Lymphocytes/100 WBC (Bld) 21.5 % See Below [facility] Work Phone: Comment on above: Reference Range: 13. 0 - 44.0 Ordering Provider: Marcus VAZQUEZAT 40523 MCHC (RBC) [Mass/Vol] 32.5 g/dL See Below [facility] Work Phone: Comment on above: Reference Range: 32. 0 - 36.0 Ordering Provider: Marcus JORDAN 72994 MCV (RBC) [Entitic vol] 91 fL 80 - 100 [facility] Work Phone: Comment on above: Ordering Provider: Marcus VAZQUEZAT 30783 Monocytes (Bld) [#/Vol] 1.55 {x10E9/L} above high threshold See Below [facility] Work Phone: Comment on above: Reference Range: 0.1 0 - 1.00 Ordering Provider: Marcus VAZQUEZAT 79982 Monocytes/100 WBC (Bld) 11.5 % 2.0 - 10.0 [facility] Work Phone: Comment on above: Ordering Provider: Marcus CESARDarya VAZQUEZAT 61324 Neutrophils/100 WBC (Bld) 64.1 % See Below [facility] Work Phone: Comment on above: Reference Range: 40. 0 - 80.0 Ordering Provider: Marcus SHERLYN MANDAT 51427 Platelets (Bld) [#/Vol] 264 {x10E9/L} 150 - 450 [facility] Work Phone: Comment on above: Ordering Provider: Marcus SHERLYN VAZQUEZAT 04548 RBC (Bld) [#/Vol] 4.60 {x10E12/L} See Below [facility] Work Phone: Comment on above: Reference Range: 4.0 0 - 5.20 Ordering Provider: Marcus SHERLYN MANDAT 82057 WBC (Bld) [#/Vol] 0.0 {/100_WBC} 0.0 - 0.0 [facility] Work Phone: Comment on above: Ordering Provider: Marcus CESARDarya TAYLORAT 50627 WBC (Bld) [#/Vol] 13.5 {x10E9/L} above high threshold 4.4 - 11.3 [facility] Work Phone: Comment on above: Ordering Provider: Marcus SHERLYN MANDAT 57811 Complete Blood Count + Differential 2.6 % above high threshold 0.0 - 0.9 [facility] Work Phone: Comment on above: Immature Granulocyte Count (IG) includes promyelocytes, myelocytes and metamyelocytes but does not include bands. Percent differential counts (%) should be interpreted in the context of the absolute cell counts (cells/L). Ordering Provider: Marcus SHERLYN MANDAT 24518 Complete Blood Count + Differential 8.66 {x10E9/L} above high threshold See Below [facility] Work Phone: Comment on above: Reference Range: 1.2 0 - 7.70 Ordering Provider: Marcus HOMAS MANDAT 83320 Metabolic Panelon 07-02-2019 Anion gap [Moles/Vol] 14 mmol/L 10 - 20 [facility] Work Phone: Comment on above: Ordering Provider: Marcus HOMAS MANDAT 85813 Calcium [Mass/Vol] 9.5 mg/dL 8.6 - 10.3 [facility] Work Phone: Comment on above: Ordering Provider: T HOMAS MANDAT 68874 Chloride [Moles/Vol] 101 mmol/L 98 - 107 [facility] Work Phone: Comment on above: Ordering Provider: T HOMAS MANDAT 94339 CO2 [Moles/Vol] 29 mmol/L 21 - 32 [facility] Work Phone: Comment on above: Ordering Provider: Marcus HOMAS MANDAT 16852 Creatinine [Mass/Vol] 0.75 mg/dL See Below [facility] Work Phone: Comment on above: Reference Range: 0.5 0 - 1.05 Ordering Provider: Marcus HOMAS MANDAT 49286 Glucose [Mass/Vol] 94 mg/dL 74 - 99 [facility] Work Phone: Comment on above: Ordering Provider: Marcus HOMAS MANDAT 05199 Potassium [Moles/Vol] 3.7 mmol/L 3.5 - 5.3 [facility] Work Phone: Comment on above: Ordering Provider: Marcus HOMAS MANDAT 45062 Sodium [Moles/Vol] 140 mmol/L 136 - 145 [facility] Work Phone: Comment on above: Ordering Provider: Marcus HOMAS MANDAT 00888 Urea nitrogen [Mass/Vol] 20 mg/dL 6 - 23 [facility] Work Phone: Comment on above: Ordering Provider: Marcus HOMAS MANDAT 26631 Otheron 07-02-2019 >60 >60 [facility] Work Phone: Comment on above: Ordering Provider: Marcus JORDAN 04996 CALCULATIONS OF GALILEA MATED GFR ARE PERFORMED USING THE MDRD STUDY EQUATION FOR THE IDMS-TRACEABLE CREATININE METHODS. CLIN CHEM 2007;53:766-72 Vancomycin Level, Randomon 0 07-02-2019 Vancomycin [Mass/Vol] 13.8 ug/mL [facility] Work Phone: Comment on above: .Therapeutic Ranges: Peak: All ages: 30.0-40.0 ug/mL. Trough: Age <18y: 5.0-10.0 ug/mL. Age >/= 18y: 5.0-20.0 ug/mL. Vancomycin trough concentrations drawn immediately prior to the next dose at steady-state are preferred for monitoring patients treated with vancomycin. Ref.: Am J Health-Syst Pharm 66: 83-98, 2009. Ordering Provider: Marcus JORDAN 12110 Cardiacon 07-01-2019 Natriuretic peptide B (Bld) [Mass/Vol] 129 pg/mL above high threshold 0 - 99 [facility] Work Phone: Comment on above: . <100 pg/mL - Heart failure -815 pg/mL - Intermediate probability of acute heart. failure exacerbation. Correlate with clinical. context and patient history. >=300 pg/mL - Heart Failure likely. Correlate with clinical. context and patient history.BNP testing is performed using different testing methodology at [facility] than at other [facility]. Direct result comparisons should only be made within the same method. Ordering Provider: Marcus JORDAN 63169 Hematologyon 07-01-2019 Hematocrit (Bld) [Volume fraction] 38.5 % See Below [facility] Work Phone: Comment on above: Reference Range: 36. 0 - 46.0 Ordering Provider: Marcus JORDAN 16344 Hemoglobin (Bld) [Mass/Vol] 12.3 g/dL See Below [facility] Work Phone: Comment on above: Reference Range: 12. 0 - 16.0 Ordering Provider: Marcus JORDAN 10710 MCV (RBC) [Entitic vol] 92 fL 80 - 100 [facility] Work Phone: Comment on above: Ordering Provider: Marcus HOMAS MANDAT 92310 Platelets (Bld) [#/Vol] 264 {x10E9/L} 150 - 450 [facility] Work Phone: Comment on above: Ordering Provider: Marcus HOMAS MANDAT 93199 RBC (Bld) [#/Vol] 4.17 {x10E12/L} See Below [facility] Work Phone: Comment on above: Reference Range: 4.0 0 - 5.20 Ordering Provider: Marcus HOMAS MANDAT 51345 WBC (Bld) [#/Vol] 18.5 {x10E9/L} above high threshold 4.4 - 11.3 [facility] Work Phone: Comment on above: Ordering Provider: Marcus HOMAS MANDAT 01890 WBC (Bld) [#/Vol] 0.0 {/100_WBC} 0.0 - 0.0 [facility] Work Phone: Comment on above: Ordering Provider: Marcus HOMAS MANDAT 21311 Metabolic Panelon 07-01-2019 ALP [Catalytic activity/Vol] 63 U/L 33 - 136 [facility] Work Phone: Comment on above: Ordering Provider: T HOMAS MANDAT 70486 Anion gap [Moles/Vol] 13 mmol/L 10 - 20 [facility] Work Phone: Comment on above: Ordering Provider: T HOMAS MANDAT 21718 Bilirubin [Mass/Vol] 0.5 mg/dL 0.0 - 1.2 -[facility] Work Phone: Comment on above: Ordering Provider: T HOMAS MANDAT 43825 Calcium [Mass/Vol] 9.3 mg/dL 8.6 - 10.3 -[facility] Work Phone: Comment on above: Ordering Provider: T HOMAS MANDAT 92732 Chloride [Moles/Vol] 104 mmol/L 98 - 107 -[facility] Work Phone: Comment on above: Ordering Provider: T HOMAS MANDAT 64676 CO2 [Moles/Vol] 27 mmol/L 21 - 32 [facility] Work Phone: Comment on above: Ordering Provider: T HOMAS MANDAT 51821 Creatinine [Mass/Vol] 0.74 mg/dL See Below [facility] Work Phone: Comment on above: Reference Range: 0.5 0 - 1.05 Ordering Provider: T HOMAS MANDAT 81403 Glucose [Mass/Vol] 129 mg/dL above high threshold 74 - 99 [facility] Work Phone: Comment on above: Ordering Provider: T HOMAS MANDAT 30847 Potassium [Moles/Vol] 4.1 mmol/L 3.5 - 5.3 [facility] Work Phone: Comment on above: Ordering Provider: T HOMAS MANDAT 56291 Protein [Mass/Vol] 6.3 g/dL below low threshold 6.4 - 8.2 [facility] Work Phone: Comment on above: Ordering Provider: T HOMAS MANDAT 63307 Sodium [Moles/Vol] 140 mmol/L 136 - 145 [facility] Work Phone: Comment on above: Ordering Provider: T HOMAS MANDAT 57478 Urea nitrogen [Mass/Vol] 21 mg/dL 6 - 23 [facility] Work Phone: Comment on above: Ordering Provider: Marcus HOMAS MANDAT 51686 Otheron 07-01-2019 XR Chest 2 views Interpreted by: VY DEE07/01/19 11:48MRN: [id number] Name: PAU MUÑOZ STUDY:TH CHEST 2 VIEW PA AND LAT; 07/01/2019 9:31 am INDICATION:sob. COMPARISON:06/30/2019 ORDERING CLINICIAN:RUMA JORDAN FINDINGS:PA and lateral views of the chest were obtained. Cardiac monitoringleads are seen over the chest. Sternal wires and mediastinal surgicalclips are present. A 2 lead pacer is seen over the right chest. Leftbasilar airspace consolidation is seen, decreased in extent from theprior study, most consistent with pneumonia. A trace left-sidedpleural effusion is present. Mild interstitial prominence is seenthroughout the lungs bilaterally may represent fibrosis and/or edema.No pneumothorax is identified. The cardiac silhouette is mildlyprominent, similar to prior studies. [id number] discogenicdegenerative changes are seen throughout the thoracic spine. IMPRESSION:Diffuse interstitial prominence and left basilar airspaceconsolidation, as described above. Clinical correlation and continuedfollow-up until clearing is recommended.Electronic ally signed by: VY DEE 07/01/19 11:48 Normal [facility] Work Phone: Comment on above: Ordering Provider: T HOMADarya MANDAT 08929 Albumin BCP dye [Mass/Vol] 3.6 g/dL 3.4 - 5.0 [facility] Work Phone: Comment on above: Ordering Provider: T HOMAS MANDAT 77328 ALT With P-5'-P [Catalytic activity/Vol] 23 U/L 7 - 45 [facility] Work Phone: Comment on above: Patients treated wit h Sulfasalazine may generate falsely decreased results for ALT. Ordering Provider: T HOMAS MANDAT 55442 AST With P-5'-P [Catalytic activity/Vol] 23 U/L 9 - 39 [facility] Work Phone: Comment on above: Ordering Provider: T HOMAS MANDAT 96129 Erythrocyte distribution width (RBC) [Ratio] 14.7 % above high threshold See Below [facility] Work Phone: Comment on above: Reference Range: 11. 5 - 14.5 Ordering Provider: T HOMAS MANDAT 55571 MCHC (RBC) [Mass/Vol] 31.9 g/dL below low threshold See Below [facility] Work Phone: Comment on above: Reference Range: 32. 0 - 36.0 Ordering Provider: Marcus JORDAN 37271 >60 >60 [facility] Work Phone: Comment on above: Ordering Provider: Marcus JORDAN 35261 CALCULATIONS OF GALILEA MATED GFR ARE PERFORMED USING THE MDRD STUDY EQUATION FOR THE IDMS-TRACEABLE CREATININE METHODS. CLIN CHEM 2007;53:766-72 Blood Gason 06-30-2019 HCO3 (Bld) [Moles/Vol] 26.5 mmol/L above high threshold See Below [facility] Work Phone: Comment on above: Reference Range: 22. 0 - 26.0 Ordering Provider: Marcus JORDAN 03031 Oxygen (Bld) [Partial pressure] 55 {mmHg} below low threshold 85 - 95 [facility] Work Phone: Comment on above: Ordering Provider: Marcus JORDAN 73410 Cardiacon 06-30-2019 Natriuretic peptide B (Bld) [Mass/Vol] 217 pg/mL above high threshold 0 - 99 [facility] Work Phone: Comment on above: . <100 pg/mL - Heart failure [id number] pg/mL - Intermediate probability of acute heart. failure exacerbation. Correlate with clinical. context and patient history. >=300 pg/mL - Heart Failure likely. Correlate with clinical. context and patient history.BNP testing is performed using different testing methodology at [facility] than at other [facility]. Direct result comparisons should only be made within the same method. Complete Blood Count + Diffe rentialon 06-30-2019 Basophils (Bld) [#/Vol] 0.04 {x10E9/L} See Below [facility] Work Phone: Comment on above: Reference Range: 0.0 0 - 0.10 Basophils/100 WBC (Bld) 0.2 % 0.0 - 2.0 -[facility] Work Phone: Eosinophils (Bld) [#/Vol] 0.00 {x10E9/L} See Below [facility] Work Phone: Comment on above: Reference Range: 0.0 0 - 0.70 Eosinophils/100 WBC (Bld) 0.0 % 0.0 - 6.0 -[facility] Work Phone: Erythrocyte distribution width (RBC) [Ratio] 15.0 % above high threshold See Below [facility] Work Phone: Comment on above: Reference Range: 11. 5 - 14.5 Hematocrit (Bld) [Volume fraction] 40.5 % See Below [facility] Work Phone: Comment on above: Reference Range: 36. 0 - 46.0 Hemoglobin (Bld) [Mass/Vol] 13.1 g/dL See Below [facility] Work Phone: Comment on above: Reference Range: 12. 0 - 16.0 Lymphocytes (Bld) [#/Vol] 2.44 {x10E9/L} See Below [facility] Work Phone: Comment on above: Reference Range: 1.2 0 - 4.80 Lymphocytes/100 WBC (Bld) 9.2 % See Below [facility] Work Phone: Comment on above: Reference Range: 13. 0 - 44.0 MCHC (RBC) [Mass/Vol] 32.3 g/dL See Below -[facility] Work Phone: Comment on above: Reference Range: 32. 0 - 36.0 MCV (RBC) [Entitic vol] 92 fL 80 - 100 -[facility] Work Phone: Monocytes (Bld) [#/Vol] 2.16 {x10E9/L} above high threshold See Below [facility] Work Phone: Comment on above: Reference Range: 0.1 0 - 1.00 Monocytes/100 WBC (Bld) 8.1 % 2.0 - 10.0 [facility] Work Phone: Neutrophils/100 WBC (Bld) 80.5 % See Below [facility] Work Phone: Comment on above: Reference Range: 40. 0 - 80.0 Platelets (Bld) [#/Vol] 265 {x10E9/L} 150 - 450 -[facility] Work Phone: RBC (Bld) [#/Vol] 4.40 {x10E12/L} See Below [facility] Work Phone: Comment on above: Reference Range: 4.0 0 - 5.20 WBC (Bld) [#/Vol] 26.6 {x10E9/L} above high threshold 4.4 - 11.3 [facility] Work Phone: WBC (Bld) [#/Vol] 0.0 {/100_WBC} 0.0 - 0.0 [facility] [facility] Work Phone: Complete Blood Count + Differential 21.47 {x10E9/L} above high threshold See Below [facility] Work Phone: Comment on above: Reference Range: 1.2 0 - 7.70 Complete Blood Count + Differential 2.0 % above high threshold 0.0 - 0.9 [facility] Work Phone: Comment on above: Immature Granulocyte Count (IG) includes promyelocytes, myelocytes and metamyelocytes but does not include bands. Percent differential counts (%) should be interpreted in the context of the absolute cell counts (cells/L). Hematologyon 06-30-2019 Hematocrit (Bld) [Volume fraction] 46.0 % See Below [facility] Work Phone: Comment on above: Reference Range: 36. 0 - 46.0 Ordering Provider: Marcus JORDAN 45976 Hemoglobin (Bld) [Mass/Vol] 15.6 g/dL See Below [facility] Work Phone: Comment on above: Reference Range: 12. 0 - 16.0 Ordering Provider: Marcus JORDAN 06271 pH (Bld) 7.43 [pH] above high threshold See Below [facility] Work Phone: Comment on above: Reference Range: 7.3 8 - 7.42 Ordering Provider: Marcus JORDAN 09600 Lactate, Levelon 06-30-2019 Lactate [Moles/Vol] 2.3 mmol/L above high threshold 0.4 - 2.0 [facility] Work Phone: Comment on above: Venipuncture immedia tely after or during the administration of Metamizole may lead to falsely low results. Testing should be performed immediately prior to Metamizole dosing. Ordering Provider: Marcus JORDAN 54478 Lactate [Moles/Vol] 3.0 mmol/L above high threshold 0.4 - 2.0 [facility] Work Phone: Comment on above: Venipuncture immedia tely after or during the administration of Metamizole may lead to falsely low results. Testing should be performed immediately prior to Metamizole dosing. Magnesium, Serumon 0 Magnesium [Mass/Vol] 1.96 mg/dL See Below [facility] Work Phone: Comment on above: Reference Range: 1.6 0 - 2.40 Magnesium [Mass/Vol] Canceled [facility] Work Phone: Comment on above: TEST MAGNESIUM WAS C ANCELLED, 06/30/2019 06:37 ADD ON TO EXISTING SPECIMEN.. Metabolic Panelon 06-30-2019 Calcium.ionized (Bld) [Moles/Vol] 1.26 mmol/L See Below [facility] Work Phone: Comment on above: Reference Range: 1.1 0 - 1.33 Ordering Provider: Marcus JORDAN 52789 Chloride [Moles/Vol] 103 mmol/L 98 - 107 [facility] Work Phone: Comment on above: Ordering Provider: Marcus HOMAS MANDAT 76576 CO2 (Bld) [Partial pressure] 40 {mmHg} 38 - 42 [facility] Work Phone: Comment on above: Ordering Provider: T HOMAS MANDAT 23458 Glucose [Mass/Vol] 224 mg/dL above high threshold 74 - 99 [facility] Work Phone: Comment on above: Ordering Provider: T HOMAS MANDAT 14280 Lactate [Moles/Vol] 2.9 mmol/L above high threshold 0.4 - 2.0 [facility] Work Phone: Comment on above: Ordering Provider: T HOMAS MANDAT 72261 Potassium [Moles/Vol] 4.2 mmol/L 3.5 - 5.3 [facility] Work Phone: Comment on above: Ordering Provider: T HOMAS MANDAT 37590 Sodium [Moles/Vol] 135 mmol/L below low threshold 136 - 145 [facility] Work Phone: Comment on above: Ordering Provider: Marcus HOMAS MANDAT 42279 Anion gap [Moles/Vol] 14 mmol/L 10 - 20 [facility] Work Phone: Calcium [Mass/Vol] 9.5 mg/dL 8.6 - 10.3 -[facility] Work Phone: Chloride [Moles/Vol] 105 mmol/L 98 - 107 -[facility] Work Phone: CO2 [Moles/Vol] 23 mmol/L 21 - 32 [facility] Work Phone: Creatinine [Mass/Vol] 0.81 mg/dL See Below [facility] Work Phone: Comment on above: Reference Range: 0.5 0 - 1.05 Glucose [Mass/Vol] 130 mg/dL above high threshold 74 - 99 [facility] Work Phone: Potassium [Moles/Vol] 3.9 mmol/L 3.5 - 5.3 [facility] Work Phone: Sodium [Moles/Vol] 138 mmol/L 136 - 145 -[facility] Work Phone: Urea nitrogen [Mass/Vol] 24 mg/dL above high threshold 6 - 23 -[facility] Work Phone: Otheron 06-30-2019 Interpreted by: VY DEE06/30/19 10:41MRN: [id number] Name: PAU MUÑOZ STUDY:CHEST 1 VIEW; 06/30/2019 10:05 am INDICATION:SOB. COMPARISON:06/29/2019 ORDERING CLINICIAN:SANDHYA CHENG FINDINGS:A single AP portable radiograph of the chest was obtained. Multiplecardiac monitoring leads are seen over the chest. Sternal wires andmediastinal surgical clips are present. A 2 lead pacer is seen overthe right chest. Moderate to severe diffuse interstitial prominenceis seen bilaterally, and may represent edema and/or pneumonia. Nopneumothorax is identified. The cardiac silhouette is prominent,similar to prior studies. IMPRESSION:Moderate to severe diffuse interstitial infiltrates, increased fromthe prior study, may represent edema and/or pneumonia. Clinicalcorrelation and continued follow-up until clearing is recommended.Electronic ally signed by: VY DEE 06/30/19 10:41 Normal [facility] Work Phone: Ventricular-paced rhythm with frequent and consecutive premature ventricular complexes [facility] Work Phone: [phone] [facility] Work Phone: [phone] [facility] Work Phone: [phone] [facility] Work Phone: [phone] [facility] Work Phone: [phone] [facility] Work Phone: [phone] -[facility] Work Phone: [phone] [facility] [facility] Work Phone: [email or web address] 1: [email or web address]/musescripts/musew eb.dll?RetrieveTestByD ateTime?LjtdelmBO=[email or web address] 91820 -[facility] Work Phone: [phone] 1 -[facility] Work Phone: [phone] -[facility] Work Phone: 59 1 [facility] Work Phone: [phone] [facility] Work Phone: Anion gap (Bld) [Moles/Vol] 10 mmol/L 10 - 25 [facility] Work Phone: Comment on above: Ordering Provider: T HOMAS MANDAT [id number] Arterial patency Wrist artery --pre arterial puncture Weak Pulse [facility] Work Phone: Comment on above: Ordering Provider: Marcus HOMAS MANDAT [id number] Inhaled oxygen concentration 100 % 21 - 100 [facility] Work Phone: Comment on above: Ordering Provider: T HOMAS MANDAT [id number] 2.0 mmol/L -2.0 - 3.0 [facility] Work Phone: Comment on above: Ordering Provider: T HOMAS MANDAT [id number] 91 % below low threshold 94 - 100 [facility] Work Phone: Comment on above: Ordering Provider: T HOMAS MANDAT [id number] Non Rebreather [facility] Work Phone: Comment on above: Ordering Provider: T HOMAS MANDAT 21986 L Brachial [facility] Work Phone: Comment on above: Ordering Provider: Marcus JORDAN [id number] 200 1 [facility] Work Phone: [phone] [facility] Work Phone: [phone] -[facility] Work Phone: [phone] -[facility] Work Phone: [phone] -[facility] Work Phone: [phone] -[facility] Work Phone: [phone] -[facility] Work Phone: [phone] [employer] [facility] Work Phone: [phone] [facility] Work Phone: [email or web address] 1: [email or web address]/musescripts/musew eb.dll?RetrieveTestByD ateTime?DljszkmZZ=7569 53334 [facility] Work Phone: [phone] [facility] Work Phone: Ventricular-paced rhythm with occasional premature ventricular complexes [employer] [facility] Work Phone: [phone] [facility] Work Phone: >60 >60 [employer] [facility] Work Phone: Comment on above: CALCULATIONS OF GALILEA MATED GFR ARE PERFORMED USING THE MDRD STUDY EQUATION FOR THE IDMS-TRACEABLE CREATININE METHODS. CLIN CHEM 2007;53:766-72 Troponin I, Serumon 06-30-19 20 Troponin I.cardiac [Mass/Vol] 0.04 ng/mL Critically high See Below [facility] Work Phone: Comment on above: Reference Range: 0.0 0 - 0.03LESS THAN 0.04 NG/ML: NEGATIVEREPEAT TESTING IN THREE TO SIX HOURSIF CLINICALLY INDICATED.0.04 - 0.5 NG/ML: CONSISTENT WITH POSSIBLECARDIAC DAMAGE AND POSSIBLE INCREASEDCLINICAL RISK.SERIAL MEASUREMENTS MAY HELP ASSESS EXTENT OFMYOCARDIAL DAMAGE.>0.5 NG/ML: CONSISTENT WITH CARDIAC DAMAGE,INCREASED CLINICAL RISK AND MYOCARDIALINFARCTION. SERIAL MEASUREMENTS MAY HELPASSESS EXTENT OF MYOCARDIAL DAMAGE..Note: Troponin I testing is performed using different testing methodology at [facility] than at other legacy [facility]. Direct result comparisons should only be made within the same method. Called- RB to kelsea bee, 06/30/2019 10:35 Called- RB to kelsea siu, 06/30/2019 10:35 Hematologyon 06-29-2019 Hematocrit (Bld) [Volume fraction] 39.7 % See Below [facility] Work Phone: Comment on above: Reference Range: 36. 0 - 46.0 Hemoglobin (Bld) [Mass/Vol] 12.7 g/dL See Below [facility] Work Phone: Comment on above: Reference Range: 12. 0 - 16.0 MCV (RBC) [Entitic vol] 91 fL 80 - 100 [facility] Work Phone: Platelets (Bld) [#/Vol] 239 {x10E9/L} 150 - 450 [facility] Work Phone: RBC (Bld) [#/Vol] 4.35 {x10E12/L} See Below [facility] Work Phone: Comment on above: Reference Range: 4.0 0 - 5.20 WBC (Bld) [#/Vol] 16.5 {x10E9/L} above high threshold 4.4 - 11.3 [facility] Work Phone: WBC (Bld) [#/Vol] 0.0 {/100_WBC} 0.0 - 0.0 [employer] [facility] Work Phone: Lactate, Levelon 06-29-2019 Lactate [Moles/Vol] 2.4 mmol/L above high threshold 0.4 - 2.0 [facility] Work Phone: Comment on above: Venipuncture immedia tely after or during the administration of Metamizole may lead to falsely low results. Testing should be performed immediately prior to Metamizole dosing. Ordering Provider: Marcus JORDAN [id number] Lactate [Moles/Vol] 3.9 mmol/L above high threshold 0.4 - 2.0 [facility] Work Phone: Comment on above: Venipuncture immedia tely after or during the administration of Metamizole may lead to falsely low results. Testing should be performed immediately prior to Metamizole dosing. Magnesium, Serumon 0 Magnesium [Mass/Vol] 1.87 mg/dL See Below [facility] Work Phone: Comment on above: Reference Range: 1.6 0 - 2.40 Metabolic Panelon 06-29-2019 Anion gap [Moles/Vol] 13 mmol/L 10 - 20 [facility] Work Phone: Calcium [Mass/Vol] 9.4 mg/dL 8.6 - 10.3 [facility] Work Phone: Chloride [Moles/Vol] 105 mmol/L 98 - 107 [facility] Work Phone: CO2 [Moles/Vol] 24 mmol/L 21 - 32 [facility] Work Phone: Creatinine [Mass/Vol] 0.73 mg/dL See Below [facility] Work Phone: Comment on above: Reference Range: 0.5 0 - 1.05 Glucose [Mass/Vol] 160 mg/dL above high threshold 74 - 99 [facility] Work Phone: Potassium [Moles/Vol] 4.0 mmol/L 3.5 - 5.3 [facility] Work Phone: Sodium [Moles/Vol] 138 mmol/L 136 - 145 [facility] Work Phone: Urea nitrogen [Mass/Vol] 14 mg/dL 6 - 23 [facility] Work Phone: Otheron 06-29-2019 XR Chest 2 views Interpreted by: ARIELLE MARTEL06/29/19 15:43MRN: [id number] Name: PAU MUÑOZ STUDY:TH CHEST 2 VIEW PA AND LAT; 06/29/2019 3:28 pm INDICATION:sob. COMPARISON:06/24/2017. ORDERING CLINICIAN:RUMA JORDAN FINDINGS:CARDIOMEDIAST INAL SILHOUETTE:Cardiomegal y, postoperative changes of the mediastinum and right sidedual lead cardiac pacing device is similar to prior. LUNGS:There is increased irregular interstitial thickening and multifocalinfiltrates greatest at the lung bases. Small effusions not excluded.No appreciable pneumothorax. ABDOMEN:No remarkable upper abdominal findings. BONES:There is osteopenia with mild increased thoracic kyphosis and mildmultilevel endplate spurring of the spine. IMPRESSION:1. Increased irregular interstitial thickening and multifocalinfiltrates greatest at the lung bases may be due to edema and/orinfection. Electronically signed by: ARIELLE MARTEL 06/29/19 15:43 Normal [facility] Work Phone: Comment on above: Ordering Provider: Marcus JORDAN [id number] RSV RNA ULISES+probe Ql (Unsp spec) NOT DETECTED See Below [facility] Work Phone: Comment on above: Reference Range: Not Detected Respiratory virus testing is performed routinely by PCR for Influenza A/B and RSV. Not Detected results do not preclude Influenza A/B or RSV infections since the adequacy of sample collection or low viral burden may impact the clinical sensitivity of this test method. NOT DETECTED See Below [facility] Work Phone: Comment on above: SOURCE: Nasal, Nasop haryngealReference Range: Not Detected Respiratory virus testing is performed routinely by PCR for Influenza A/B and RSV. Not Detected results do not preclude Influenza A/B or RSV infections since the adequacy of sample collection or low viral burden may impact the clinical sensitivity of this test method. Reference Range: Not Detected Respiratory virus testing is performed routinely by PCR for Influenza A/B and RSV. Not Detected results do not preclude Influenza A/B or RSV infections since the adequacy of sample collection or low viral burden may impact the clinical sensitivity of this test method. Erythrocyte distribution width (RBC) [Ratio] 14.6 % above high threshold See Below -[facility] Work Phone: Comment on above: Reference Range: 11. 5 - 14.5 MCHC (RBC) [Mass/Vol] 32.0 g/dL See Below -[facility] Work Phone: Comment on above: Reference Range: 32. 0 - 36.0 >60 >60 -[facility] Work Phone: Comment on above: CALCULATIONS OF GALILEA MATED GFR ARE PERFORMED USING THE MDRD STUDY EQUATION FOR THE IDMS-TRACEABLE CREATININE METHODS. CLIN CHEM 2007;53:766-72 Hematologyon 05-21-2019 INR Coag (PPP) [Relative time] 1.0 {INR} 0.9 - 1.1 -[facility] Work Phone: PT Coag (PPP) [Time] 11.4 {sec} 9.7 - 12.7 [facility] Work Phone: Otheron 05-21-2019 69 1 [facility] Work Phone: [phone] 1 [facility] Work Phone: [phone] 1 [facility] Work Phone: [phone] 1 [facility] Work Phone: [phone] 1 [facility] Work Phone: -[phone] 1 [facility] Work Phone: [phone] 1 [facility] Work Phone: 12 1 -[facility] Work Phone: [phone] [facility] Work Phone: [phone] [facility] Work Phone: [phone] [facility] Work Phone: Ventricular-paced rhythm with occasional premature ventricular complexes [facility] Work Phone: [email or web address] 1: [email or web address]/musescripts/musew [email or web address]?RetrieveTestByD ateTime?QwkyhxaBB=[email or web address] 20747 [facility] Work Phone: Albumin/Creatinine Ratio, Ur on 12-07-2017 Albumin/Creatinine Ratio 15.000 mg/g Normal [facility] Comment on above: Performed By: #### B MARCOS HANNAH ####[address] [address] Creatinine, Urine Random $ 32.5 mg/dL Normal [facility] Comment on above: Performed By: #### MARCOS Andrade MP ####[address] [address] Ur Microalbumin, Random < 5.[address] [facility] Comment on above: Performed By: #### B MARCOS HANNAH ####[address] [address] Complete Blood Count w/diff $$on 12-07-2017 Basophils Auto #/vol (Bld) 0.1 10 /uL Normal 0.04-0.[address] [facility] Comment on above: Performed By: #### B MARCOS HANNAH ####[address] [address] Basophils/100 WBC Auto (Bld) 1 % Normal 0-[address] [facility] Comment on above: Performed By: #### B MARCOS HANNAH ####[facility] [place] [address] Eosinophils Auto #/vol (Bld) 0.2 10 3/uL Normal 0.03-0.[address] [facility] Comment on above: Performed By: #### MARCOS Andrade MP ####[facility] [place] [address] Eosinophils/100 WBC Auto (Bld) 3 % Normal 0-[address] [facility] Comment on above: Performed By: #### MARCOS Andrade MP ####[facility] [place] [address] Erythrocyte distribution width Auto Ratio (RBC) 14.3 % Normal 11.5-14.[address] [facility] Comment on above: Performed By: #### MARCOS Andrade MP ####[address] [address] Hematocrit Auto Volume Fraction (Bld) 43.1 % Normal 35-[address] [facility] Comment on above: Performed By: #### MARCOS Andrade MP ####[address] [address] Hemoglobin mass conc (Bld) 14.2 g/dL Normal 12.0-16.[address] [facility] Comment on above: Performed By: #### MARCOS Andrade MP ####[address] [address] Immature Gran# (Auto) 0.0 10 3/uL Normal [facility] Comment on above: Performed By: #### MARCOS Andrade MP ####[address] [address] Immature granulocytes #/vol (Bld) 0.3 % Normal 0.0-0.[address] [facility] Comment on above: Performed By: #### MARCOS Andrade MP ####[address] [address] Lymphocytes Auto #/vol (Bld) 2.7 10 3/uL Normal 1-3.[address] [facility] Comment on above: Performed By: #### B BRIELLE, HAJune ####[facility] [place] [address] Lymphocytes/100 WBC Auto (Bld) 36 % Normal 24-[address] [facility] Comment on above: Performed By: #### B BRIELLE, HAJune ####[address] [address] MCH Auto Entitic mass (RBC) 29.4 pg Normal 27-[address] [facility] Comment on above: Performed By: #### B BRIELLE, MARCOS ####[address] [address] MCH Auto Entitic mass (RBC) 32.9 g/dL Low 33-[address] [facility] Comment on above: Performed By: #### B BRIELLE, HAJune ####[address] [address] MCV Auto Entitic volume (RBC) 89.2 fL Normal 80-[address] [facility] Comment on above: Performed By: #### B BRIELLE, HAJune ####[facility] [place] [address] Monocytes Auto #/vol (Bld) 0.7 10 3/uL Normal 0.04-0.[address] [facility] Comment on above: Performed By: #### B BRIELLE, HAJune ####[facility] [place] [address] Monocytes/100 WBC Auto (Bld) 10 % High 1-[address] [facility] Comment on above: Performed By: #### B BRIELLE, HA1C ####[facility] [place] [address] Neutrophils Auto #/vol (Bld) 3.8 10 3/uL Normal 1.8-7.[address] [facility] Comment on above: Performed By: #### B MARCOS HANNAH ####[facility] [place] [address] Neutrophils/100 WBC Auto (Bld) 50 % Normal 42-[address] [facility] Comment on above: Performed By: #### B BRIELLE, MARCOS ####[facility] [place] [address] Nucleated RBC/100 WBC Ratio (Bld) 0.0 % Normal 0.0-0.[address] [facility] Comment on above: Performed By: #### B MARCOS HANNAH ####[address] [address] Platelet mean volume Auto Entitic volume (Bld) 10.6 fL High 7.4-10.[address] [facility] Comment on above: Performed By: #### B MARCOS HANNAH ####[address] [address] Platelets Auto #/vol (Bld) 202 10 3/uL Normal 150-[address] [facility] Comment on above: Performed By: #### B BRIELLE, MARCOS ####[facility] [place] [address] RBC Auto #/vol (Bld) 4.83 10 6/uL Normal 4.2-5.4 [facility] Comment on above: Performed By: #### B BRIELLE, MARCOS ####[address] [address] WBC Auto #/vol (Bld) 7.5 10 3/uL Normal 4.0-11.0 [facility] Comment on above: Performed By: #### B BRIELLE, HAJune ####[facility] [place] [address] Comprehensive Metabolic Pane milton 12-07-2017 Albumin mass conc 4.1 g/dL Normal 3.4-5.0 [facility] Comment on above: Performed By: #### B MARCOS HANNAH ####[facility] [place] [address] ALP enzyme act/vol 69 U/L Normal 33-[address] [facility] Comment on above: Result Comment: Plea se note new reference range as of September. Performed By: #### B DIANE HANNAH1C ####[facility] [place] [address] ALT enzyme act/vol 18 U/L Normal 4-[address] [facility] Comment on above: Result Comment: Plea se note new reference range as of September. Performed By: #### B MARCOS HANNAH ####[facility] [place] [address] Anion gap 3 molar conc 12.2 mmol/L Normal 10-[address] [facility] Comment on above: Performed By: #### B MARCOS HANNAH ####[facility] [place] [address] AST enzyme act/vol 25 U/L Normal 9-[address] [facility] Comment on above: Result Comment: Plea se note new reference range as of September. Performed By: #### B MARCOS HANNAH ####[facility] [place] [address] Bilirubin Ql (U) 0.5 mg/dL Normal 0.0-1.2 [facility] Comment on above: Performed By: #### B MARCOS HANNAH ####[facility] [place] [address] Calcium mass conc 9.6 mg/dL Normal 8.6-10.3 [facility] Comment on above: Result Comment: Plea se note new reference range as of September. Performed By: #### B MARCOS HANNAH ####[facility] [place] [address] Chloride molar conc 103 mmol/L Normal 98-[address] [facility] Comment on above: Performed By: #### B MARCOS HANNAH ####[facility] [place] [address] CO2 molar conc 27 mmol/L Normal 21-32 [facility] Comment on above: Performed By: #### B MARCOS HANNAH ####[facility] [place] [address] Creatinine mass conc 0.81 mg/dL Normal 0.50-1.05 [facility] Comment on above: Result Comment: Chaya trevizo note new reference range as of September. Performed By: #### B BRIELLE, MARCOS ####[facility] [place] [address] GFR () >[address] [facility] Comment on above: Performed By: #### B MARCOS HANNAH ####[facility] [place] [address] GFR (Non ) >[address] [facility] Comment on above: Result Comment: eGFR Units of measure: mL/min/1.73 m 2 Performed By: #### B BRIELLE, HAJune ####[facility] [place] [address] Glucose mass conc 103 mg/dL High 74-99 [facility] Comment on above: Performed By: #### Raymond HANNAH, HAJune ####[facility] [place] [address] Potassium molar conc 5.2 mmol/L Normal 3.5-5.3 [facility] Comment on above: Performed By: #### B BRIELLE, HA1C ####[facility] [place] [address] Protein mass conc 7.2 g/dL Normal 6.4-8.2 [facility] Comment on above: Performed By: #### B MARCOS HANNAH ####[facility] [place], [place] [address], [place] [address] Sodium molar conc 137 mmol/L Normal 136-145 [facility] Comment on above: Performed By: #### B MARCOS HANNAH ####[facility] [place] [address] Urea nitrogen mass conc (Bld) 14 mg/dL Normal 6-[address] [facility] Comment on above: Result Comment: Chaya trevizo note new reference range as of September. Performed By: #### B MARCOS HANNAH ####[facility] [place], [place] [address], [place] [address] Hemoglobin A1con 12-07-2017 Hemoglobin A1c/Hemoglobin.total mass fraction (Bld) 6.0 % Normal 4.4-6.3 [facility] Comment on above: Performed By: #### MARCOS Andrade MP ####[facility] [place], [place] [address], [place] [address] Thyroid Stimulating Hormoneo n 12-07-2017 Thyrotropin Qn 2.16 m[IU]/L Normal 0.44-3.98 [facility] Comment on above: Performed By: #### MARCOS Andrade MP ####[facility] [place] [address] Vitamin Don 12-07-2017 Vitamin D Pending Normal [facility] Comment on above: Performed By: #### MARCOS Andrade MP ####[facility] [place] [address] Immunoelectrophoresis, Serum on 09-14-2017 Albumin mass conc 3.9 g/dL Normal 3.4-5.0 [facility] Comment on above: Performed By: #### MARCOS Andrade MP ####[facility] [place], [place] [address], [place] [address] Alpha 1 Globulin 0.3 g/dL Normal 0.2-0.6 [facility] Comment on above: Performed By: #### B BRIELLE, MARCOS ####[facility] [place] [address] Alpha 2 Globulin 0.9 g/dL Normal 0.4-1.1 [facility] Comment on above: Performed By: #### Raymond HANNAH, HA1C ####[address] [address] Beta Globulin 1.1 g/dL Normal 0.5-1.2 [facility] Comment on above: Performed By: #### Raymond HANNAH, MARCOS ####[address] [address] Gamma Globulin 1.4 g/dL Normal 0.5-1.4 [facility] Comment on above: Performed By: #### Raymond HANNAH, MARCOS ####[address] [address] GAYLE Path Review TANYA Normal [facility] Comment on above: Result Comment: By h er/his signature above, the Pathologistlisted as making the final interpretationcertifies that she/he has personally reviewedthis case. Performing Site: [facility] - [address] [place], [place] Performed By: #### MARCOS Andrade MP ####[facility] [place] [address] Immunofixation Interpretation NORMAL Normal [facility] Comment on above: Result Comment: Perf orming Site: [facility] - [address] [id number] Performed By: #### Raymond HANNAH, HAJune ####[address], [place] [address] Interpretation NORMAL Normal [facility] Comment on above: Performed By: #### B BRIELLE, HA1C ####[id number] [place], [place] [id number] Monoclonal Protein NONE DETECTED Normal [facility] Comment on above: Performed By: #### B BRIELLE, HA1C ####[facility] [place] [id number] SPE Path Review TANYA Normal [facility] Comment on above: Result Comment: By h er/his signature above, the Pathologistlisted as making the final interpretationcertifies that she/he has personally reviewedthis case. Performing Site: [facility] - [address] [place] [address] Performed By: #### B BRIELLE, DIANE1C ####[facility] [place], [place] [address] Mammo Screening Bilat CAD To yee 09-14-2017 Mammo Screening Bilat CAD [facility] [place] Patient: PAU MUÑOZ [address] [facility] MR#: [id number] [place], [place] [address] : [address] Ori Salomon MD Dept: Diagnostic Imaging Loc: OPC DI REPORT Service Dt:09/14/17 Report#: [id number] Adm Dt: 09/14/17 Dis Dt: Comments: STUDY: 3D digital bilateral screening mammograms with CAD and tomosynthesis were obtained; 09/14/2017 2:05 pm ACCESSION NUMBER(S): [id number] ORDERING CLINICIAN: Ori Salomon INDICATION: Screening. COMPARISON: 08/27/2016 FINDINGS: 2D and tomosynthesis images were reviewed at 1 mm slice thickness. The breast tissue is heterogeneously dense, which may obscure small masses.. The upper portion of the right breast could not be imaged on the MLO projection due to patient concern regarding a pacemaker device. Considering this and previous right breast surgery the fibroglandular pattern appears unremarkable, and there has been no significant change. This study was interpreted with CAD. IMPRESSION: Nospecific mammographic evidence of malignancy. BI-RADS CATEGORY: Category: 2 - Benign. Recommendation: 1 Year Screening. Dictated by: Omkar Yin Electronically Signed by: Omkar Yin 09/14/2017 2:18 PM Normal [facility] Immunoglobulins, [place] Immunoglobulin A 440 mg/dL Abnormal 70-400 [facility] Comment on above: Result Comment: MONO CLONAL PROTEINS MAY CAUSE FALSELY LOWRESULTS IN THIS ASSAY. SERUM PROTEINELECTROPHORESIS SHOULD BE DONE THEFIRST TEST TO EVALUATE MONOCLONAL GAMMOPATHY. Performed By: #### B BRIELLE, DIANE1C ####[address] [address] Immunoglobulin G 1340 mg/dL Normal 700-1600 [facility] Comment on above: Result Comment: MONO CLONAL PROTEINS MAY CAUSE FALSELY LOWRESULTS IN THIS ASSAY. SERUM PROTEINELECTROPHORESIS SHOULD BE DONE THEFIRST TEST TO EVALUATE MONOCLONAL GAMMOPATHY. Performed By: #### B BRIELLE, DIANE1C ####[facility] [place] [address] Immunoglobulin M 111 mg/dL Normal 40-230 [facility] Comment on above: Result Comment: MONO CLONAL PROTEINS MAY CAUSE FALSELY LOWRESULTS IN THIS ASSAY. SERUM PROTEINELECTROPHORESIS SHOULD BE DONE THEFIRST TEST TO EVALUATE MONOCLONAL GAMMOPATHY.Performing Site: [facility] - [address] [address] [id number] Performed By: #### B BRIELLE, HA1C ####[facility] [place] [address] Complete Blood Count w/diff $$on 09-12-2017 Basophils Auto #/vol (Bld) 0.1 10 /uL Normal 0.04-0.[address] [facility] Comment on above: Performed By: #### MARCOS Andrade MP ####[facility] [place] [address] Basophils/100 WBC Auto (Bld) 1 % Normal 0-[address] [facility] Comment on above: Performed By: #### Raymond HANNAH, MARCOS ####[facility] [place] [address] Eosinophils Auto #/vol (Bld) 0.2 10 3/uL Normal 0.03-0.[address] [facility] Comment on above: Performed By: #### MARCOS Andrade MP ####[facility] [place] [address] Eosinophils/100 WBC Auto (Bld) 3 % Normal 0-[address] [facility] Comment on above: Performed By: #### MARCOS Andrade MP ####[facility] [place] [address] Erythrocyte distribution width Auto Ratio (RBC) 14.1 % Normal 11.5-14.[address] [facility] Comment on above: Performed By: #### MARCOS Andrade MP ####[address] [address] Hematocrit Auto Volume Fraction (Bld) 44.1 % Normal 35-[address] [facility] Comment on above: Performed By: #### MARCOS Andrade MP ####[address] [address] Hemoglobin mass conc (Bld) 14.3 g/dL Normal 12.0-16.[address] [facility] Comment on above: Performed By: #### MARCOS Andrade MP ####[address] [address] Immature Gran# (Auto) 0.0 10 3/uL Normal [facility] Comment on above: Performed By: #### MARCOS Andrade MP ####[facility] [place] [address] Immature granulocytes #/vol (Bld) 0.3 % Normal 0.0-0.[address] [facility] Comment on above: Performed By: #### B BRIELLE, HA1C ####[facility] [place] [address] Lymphocytes Auto #/vol (Bld) 2.3 10 3/uL Normal 1-3.[address] [facility] Comment on above: Performed By: #### B BRIELLE, HA1C ####[address] [address] Lymphocytes/100 WBC Auto (Bld) 29 % Normal 24-[address] [facility] Comment on above: Performed By: #### B BRIELLE, HAJune ####[address] [address] MCH Auto Entitic mass (RBC) 28.9 pg Normal 27-[address] [facility] Comment on above: Performed By: #### B BRIELLE, HAJune ####[address] [address] MCH Auto Entitic mass (RBC) 32.4 g/dL Low 33-[address] [facility] Comment on above: Performed By: #### B BRIELLE, HA1C ####[facility] [place] [address] MCV Auto Entitic volume (RBC) 89.3 fL Normal 80-[address] [facility] Comment on above: Performed By: #### B BRIELLE, HA1C ####[facility] [place] [address] Monocytes Auto #/vol (Bld) 0.8 10 3/uL Normal 0.04-0.[address] [facility] Comment on above: Performed By: #### B BRIELLE, HA1C ####[facility] [place] [address] Monocytes/100 WBC Auto (Bld) 9 % High 1-[address] [facility] Comment on above: Performed By: #### B BRIELLE, HA1C ####[facility] [place] [address] Neutrophils Auto #/vol (Bld) 4.6 10 3/uL Normal 1.8-7.[address] [facility] Comment on above: Performed By: #### B BRIELLE, HA1C ####[facility] [place] [address] Neutrophils/100 WBC Auto (Bld) 58 % Normal 42-[address] [facility] Comment on above: Performed By: #### MARCOS Andrade MP ####[facility] [place] [address] Nucleated RBC/100 WBC Ratio (Bld) 0.0 % Normal 0.0-0.[address] [facility] Comment on above: Performed By: #### Raymond HANNAH HAJune ####[address] [address] Platelet mean volume Auto Entitic volume (Bld) 9.5 fL Normal 7.4-10.[address] [facility] Comment on above: Performed By: #### MARCOS Andrade MP ####[facility] [place] [address] Platelets Auto #/vol (Bld) 259 10 3/uL Normal 150-[address] [facility] Comment on above: Performed By: #### Raymond HANNAH, HAJune ####[facility] [place] [address] RBC Auto #/vol (Bld) 4.94 10 6/uL Normal 4.2-5.4 [facility] Comment on above: Performed By: #### Raymond HANNAH, HA1C ####[facility] [place] [address] WBC Auto #/vol (Bld) 8.0 10 3/uL Normal 4.0-11.0 [facility] Comment on above: Performed By: #### B BRIELLE, MARCOS ####[facility] [place] [address] Comprehensive Metabolic Pane milton 09-12-2017 Albumin mass conc 3.7 g/dL Normal 3.4-5.0 [facility] Comment on above: Performed By: #### B BRIELLE, HA1C ####[facility] [place] [address] ALP enzyme act/vol 84 U/L Normal 50-[address] [facility] Comment on above: Performed By: #### B BRIELLE, HA1C ####[facility] [place] [address] ALT enzyme act/vol 28 U/L Normal 12-[address] [facility] Comment on above: Performed By: #### B BRIELLE, HA1C ####[facility] [place] [address] Anion gap 3 molar conc 15.5 mmol/L Normal [facility] Comment on above: Performed By: #### B BRIELLE, HA1C ####[facility] [place] [address] AST enzyme act/vol 29 U/L Normal 15-[address] [facility] Comment on above: Performed By: #### B BRIELLE, HA1C ####[facility] [place] [address] Bilirubin Ql (U) 0.3 mg/dL Normal 0.2-1.0 [facility] Comment on above: Performed By: #### Raymond HANNAH, HA1C ####[facility] [place] [address] Calcium mass conc 9.3 mg/dL Normal 8.5-10.1 [facility] Comment on above: Performed By: #### B BRIELLE, HA1C ####[facility] [place] [address] Chloride molar conc 103 mmol/L Normal 98-[address] [facility] Comment on above: Performed By: #### MARCOS Andrade MP ####[facility] [place] [address] CO2 molar conc 25 mmol/L Normal 21-32 [facility] Comment on above: Performed By: #### MARCOS Andrade MP ####[facility] [place] [address] Creatinine mass conc 0.7 mg/dL Normal 0.6-1.3 [facility] Comment on above: Performed By: #### MARCOS Andrade MP ####[address] [address] GFR () >[address] [facility] Comment on above: Performed By: #### MARCOS Andrade MP ####[address] [address] GFR (Non ) >[address] [facility] Comment on above: Result Comment: eGFR Units of measure: mL/min/1.73 m 2 Performed By: #### MARCOS Andrade MP ####[facility] [place] [address] Glucose mass conc 105 mg/dL Normal 74-106 [facility] Comment on above: Performed By: #### MARCOS Andrade MP ####[address] [address] Potassium molar conc 4.5 mmol/L Normal 3.5-5.1 [facility] Comment on above: Performed By: #### MARCOS Andrade MP ####[facility] [place] [address] Protein mass conc 7.7 g/dL Normal 6.4-8.2 [facility] Comment on above: Performed By: #### MARCOS Andrade MP ####[facility] [place] [address] Sodium molar conc 139 mmol/L Normal 136-145 [facility] Comment on above: Performed By: #### MARCOS Andrade MP ####[facility] [place] [address] Urea nitrogen mass conc (Bld) 12 mg/dL Normal 7-[address] [facility] Comment on above: Performed By: #### B BRIELLE, MARCOS ####[facility] [place] [address] Ferritinon 09-12-2017 Ferritin 67.7 ng/mL Normal 8.0-252.0 [facility] Comment on above: Performed By: #### MARCOS Andrade MP ####[facility] [place] [address] Immunoelectrophoresis, Serum on 09-12-2017 Protein mass conc 7.6 g/dL Normal 6.4-8.2 [facility] Comment on above: Result Comment: [facility] [place] Site: [facility] - [address] [place] [place] Performed By: #### MARCOS Andrade MP ####[facility] [place] [address] Iron Profileon 09-12-2017 % Iron Saturation 13 % Low 16-35 [facility] Comment on above: Performed By: #### MARCOS Andrade MP ####[facility] [place] [address] Iron mass conc 50 ug/dL Normal 50-170 [facility] Comment on above: Performed By: #### MARCOS Andrade MP ####[facility] [place] [address] Total Iron Binding Capacity 371 ug/dL Normal 250-[address] [facility] Comment on above: Performed By: #### MARCOS Andrade MP ####[facility] [place] [address] B-type Natriuretic Peptideon 06-25-2017 Natriuretic peptide B mass conc (Bld) 47.51 pg/mL Normal 0-100 [facility] Comment on above: Performed By: #### U R, PTINR, TROP, FLUNOW, BNP ####[address] [address] Complete Blood Count w/diff $$on 06-25-2017 Platelets Auto #/vol (Bld) Adequate Normal [facility] Comment on above: Performed By: #### C SHAINA RM, [place] ####[address] [address] Atypical Lymph 2 Normal [facility] Comment on above: Performed By: #### C SHAINA RM, [place] ####[address] [address] Band form neutrophils/100 WBC Manual cnt (Bld) 8 % Normal 0-[address] [facility] Comment on above: Performed By: #### SHAINA GARDUNO, [place] ####[address] [address] Eosinophils Auto #/vol (Bld) 0.2 10 3/uL Normal [facility] Comment on above: Performed By: #### Ana RM CMPNitin, [place] ####[address] [address] Eosinophils/100 WBC Auto (Bld) 3 % Normal 0-[address] [facility] Comment on above: Performed By: #### C SHAINA RM, [place] ####[address] [address] Lymphocytes Auto #/vol (Bld) 1.7 10 3/uL Normal [facility] Comment on above: Performed By: #### SHAINA GARDUNO, [place] ####[address] [address] Lymphocytes/100 WBC Auto (Bld) 23 % Low 24-[address] [facility] Comment on above: Performed By: #### C JAG CMP12, [place] ####[address] [address] Monocytes Auto #/vol (Bld) 1.1 10 3/uL Normal [facility] Comment on above: Performed By: #### C JAG CMP12, [place] ####[address] [address] Monocytes/100 WBC Auto (Bld) 15 % High 1-[address] [facility] Comment on above: Performed By: #### C JAG CMP12, [place] ####[address] [address] Neutrophils Auto #/vol (Bld) 4.2 10 3/uL Normal [facility] Comment on above: Performed By: #### C JAG CMP12, [place] ####[address] [address] Neutrophils/100 WBC Auto (Bld) 51 % Normal 42-[address] [facility] Comment on above: Performed By: #### C JAG, CMP12, [place] ####[address] [address] Comprehensive Metabolic Pane milton 06-25-2017 Albumin mass conc 3.7 g/dL Normal 3.4-5.0 [facility] Comment on above: Performed By: #### C JAG, CMP12, [place] ####[address] [address] ALP enzyme act/vol 86 U/L Normal 50-[address] [facility] Comment on above: Performed By: #### C BC, CMP12, [place] ####[address] [address] ALT enzyme act/vol 29 U/L Normal 12-[address] [facility] Comment on above: Performed By: #### C JAG CMP12, [place] ####[facility] [place] [address] Anion gap 3 molar conc 13.3 mmol/L Normal [facility] Comment on above: Performed By: #### C JAG CMP12, [place] ####[facility] [place] [address] AST enzyme act/vol 36 U/L Normal 15-[address] [facility] Comment on above: Performed By: #### C JAG CMP12, [place] ####[facility] [place] [address] Bilirubin Ql (U) 0.4 mg/dL Normal 0.2-1.0 [facility] Comment on above: Performed By: #### C JAG CMP12, [place] ####[address] [address] Calcium mass conc 8.8 mg/dL Normal 8.5-10.1 [facility] Comment on above: Performed By: #### C JAG CMP12, [place] ####[facility] [place] [address] Chloride molar conc 103 mmol/L Normal 98-[address] [facility] Comment on above: Performed By: #### C JAG CMP12, [place] ####[address] [address] CO2 molar conc 26 mmol/L Normal 21-32 [facility] Comment on above: Performed By: #### C JAG CMP12, LA ####[facility] [place] [address] Creatinine mass conc 0.9 mg/dL Normal 0.6-1.3 [facility] Comment on above: Performed By: #### C JAG CMP12, LA ####[facility] [place] [address] GFR () >[address] [facility] Comment on above: Performed By: #### C JAG CMP12, LA ####[facility] [place] [address] GFR (Non ) >[address] [facility] Comment on above: Result Comment: eGFR Units of measure: mL/min/1.73 m 2 Performed By: #### C JAG CMP12, LA ####[facility] [place] [address] Glucose mass conc 124 mg/dL High 74-106 [facility] Comment on above: Performed By: #### C JAG CMP12, LA ####[address] [address] Potassium molar conc 4.3 mmol/L Normal 3.5-5.1 [facility] Comment on above: Performed By: #### C JAG CMP12, [place] ####[address] [address] Protein mass conc 7.8 g/dL Normal 6.4-8.2 [facility] Comment on above: Performed By: #### C JAG CMP12, LA ####[facility] [place] [address] Sodium molar conc 138 mmol/L Normal 136-145 [facility] Comment on above: Performed By: #### C JAG CMP12, [place] ####[address] [address] Urea nitrogen mass conc (Bld) 16 mg/dL Normal 7-[address] [facility] Comment on above: Performed By: #### C JAG, CMP12, [place] ####[facility] [place] [address] Troponin Ion 06-25-2017 Troponin I.cardiac mass conc ng/mL Normal 0.00-0.[address] [facility] Comment on above: Performed By: #### U R, PTINR, TROP, FLUNOW, BNP ####[facility] [place] [address] Chest Xray 2 views (PA Lat)o n 06-24-2017 Chest Xray 2 views (PA Lat) [facility] Patient: PAU MUÑOZ [address] [facility] MR#: [id number] [place], [place] [address] : 1950 Ord[address] .: Heather Neff DO, Resident Dept: Diagnostic Imaging Loc: 1EDA DI REPORT Service Dt:06/24/17 Report#: [id number] Adm Dt: 06/24/17 Dis Dt: Comments: STUDY: CR Chest Xray 2 views (PA Lat); 06/24/2017 9:10 pm INDICATION: Fever. COMPARISON: Chest radiograph 05/06/2016 ACCESSION NUMBER(S): [id number] ORDERING CLINICIAN: Heather Neff FINDINGS: Redemonstrated midline sternotomy wires and a right chest wall dual lead pacer with leads overlying the right atrium and right ventricle CARDIOMEDIASTINAL SILHOUETTE: Cardiomediastinal silhouette is stable in size and configuration. LUNGS: No pulmonary consolidation, pleural effusion or pneumothorax. ABDOMEN: Surgical clips compatible with cholecystectomy BONES: No acute osseous abnormality. IMPRESSION: No radiographic evidence of acute cardiopulmonary pathology. Dictated by: Marnie Robles Electronically Signed by: Marnie Robles 06/24/2017 9:21 PM Normal [facility] Complete Blood Count w/diff $$on 06-24-2017 Diff Type Manual Normal [facility] Comment on above: Performed By: #### C BC, CMP12, [place] ####[facility] [place] [address] Erythrocyte distribution width Auto Ratio (RBC) 14.5 % Normal 11.5-14.[address] [facility] Comment on above: Performed By: #### C JAG CMP12, [place] ####[facility] [place] [address] Hematocrit Auto Volume Fraction (Bld) 44.0 % Normal 35-[address] [facility] Comment on above: Performed By: #### C JAG CMP12, LA ####[facility] [place] [address] Hemoglobin mass conc (Bld) 14.6 g/dL Normal 12.0-16.[address] [facility] Comment on above: Performed By: #### C JAG CMP12, LA ####[address] [address] MCH Auto Entitic mass (RBC) 29.6 pg Normal 27-[address] [facility] Comment on above: Performed By: #### C JAG CMP12, [place] ####[address] [address] MCH Auto Entitic mass (RBC) 33.2 g/dL Normal 33-[address] [facility] Comment on above: Performed By: #### C SHAINA RM, [place] ####[address] [address] MCV Auto Entitic volume (RBC) 89.1 fL Normal 80-[address] [facility] Comment on above: Performed By: #### C JAG CMP12, [place] ####[address] [address] Platelet mean volume Auto Entitic volume (Bld) 9.8 fL Normal 7.4-10.[address] [facility] Comment on above: Performed By: #### C JAG CMP12, [place] ####[facility] [place] [address] Platelets Auto #/vol (Bld) 203 10 3/uL Normal 150-[address] [facility] Comment on above: Performed By: #### Ana RM CMP12, [place] ####[place] [address] [place] [address] RBC Auto #/vol (Bld) 4.94 10 6/uL Normal 4.2-5.4 [facility] Comment on above: Performed By: #### C BC, CMP12, [place] ####[facility] [place] [address] WBC Auto #/vol (Bld) 7.2 10 3/uL Normal 4.0-11.0 [facility] Comment on above: Performed By: #### C BC, CMP12, [place] ####[facility] [place] [address] ED Visit Summaryon 8 ED Visit Summary [facility] Patient: PAU MUÑOZ [address] [facility] MR#: [id number] [place], [place] [address] : 1950 Ord. : Dept: Emergency Department Loc: 1EDA ER Physician Documentation Service Dt: 06/24/17 Report#: [id number] Adm Dt: 06/24/17 Dis Dt: 06/24/17 Patient Information - Chief Complaint Initial Complaint: FEVER, COUGH Chief Complaint: Fever - Allergies Allergies/Adverse Rxn: Allergies cephalexin Allergy (Verified 12/13/16 07:39) Hives cephalexin monohydrate * [From Keflex] Allergy (Verified 12/13/16 07:39) Hives Cephalosporins Allergy (Verified 12/13/16 07:39) Hives Iodinated Contrast- Oral and IV Dye [IV DYE] Allergy (Verified 12/13/16 07:39) Hives and passed out levofloxacin Allergy (Verified 12/13/16 07:39) Hives Sulfa (Sulfonamide Antibiotics) Allergy (Verified 12/13/16 07:39) Hives - Vital Signs Vitals: Vital Signs Temp Pulse Resp BP Pulse Ox 06/24/17 20:54 82 18 173/71 H 96 06/24/17 19:49 37.2 C 83 20 160/76 H 99 ED Physician Disposition - Clinical Impression Clinical Impression: Upper respiratory infection, viral - Disposition Disposition: TO HOME - Discharge Instructions: Viral Syndrome (ED) Prescriptions/Orders: Benzonatate [Tessalon Perles] 100 mg PO TID #21 cap Referrals: Ori Salomon MD [Primary Care Provider] - ED Resident Attestation - Attestation Attestation: 06/24/17 21:38 ED Resident Attestation I have seen and evaluated this patient, I obtained the rice critical portions of the ED Documentation, I was present for rice critical portions performed by the resident, I reviewed resident's documentation discussed Pt with resident, I agree with the resident's medical decision making as documented in the note. My Findings/Plan: 06/24/17 21:39 Patient seen and examined independent of the resident. 67-year-old female presenting today with chest pain. Patient states an ongoing for about 3 days. She endorses some shortness of breath cough and a fever of 100.2 at home. Patient states she is concerned because she is a history of endocarditis in the past and does want to get checked. He is otherwise eating well. She denies any recent sick contacts and she states that she did get a influenza vaccine. Exam: My examination she was warm to touch her lungs were clear bilaterally heart regular rhythm without gallops or rubs or murmurs. Abdomen was soft and nontender positive bowel sounds. Pupils are equal and reactive to light. Mucous membranes are moist is no erythema seen in the tonsillar bed. Plan: Currently are plan is to do influenza workup as well as a chest pain workup. Patient Information - Chief Complaint Additional Complaints: Cough - Nursing Triage Note Nursing Triage Note: Pt has c/o nonproductive cough and low grade fever since . Pthad a temp of 100.2 @ 1830, di not take anything for it. Currently is 99.0, lungs cta, diminished, pulse ox 99% on room air. - Narrative HPI/ROS/Exam: Ms. Muñoz is a 67-year-old female, past medical history of atrial fibrillation on Xarelto, history VSD repair, history of bacterial endocarditis, pacemaker, hyperlipidemia, CHF EF 50%, who presents to the ED with fever, nonproductive cough, mild shortness of breath for 3 days. Patient states that she has had a fever, MAXIMUM TEMPERATURE of 100.2, well as postnasal drip and severe cough that causes her chest to her. She also endorses some mild shortness of breath. She has a known history of atrial fibrillation and states that sometimes when she goes out a rhythm she feels short of breath, however she does not know she is out of rhythm at this time. She denies recent travel or sick contacts. Denies chest pain, nausea, vomiting, diarrhea, myalgias. Past medical history reviewed Past surgical history reviewed. Medications reviewed. Allergy list reviewed. ROS obtained. Unremarkable except as stated above. - Physical Exam General appearance: Positive: alert, in no apparent distress, obese HEENT: Positive: PERRL, EOMI, mucous membranes moist Neck: Positive: Supple, no JVD, no thyromegaly, no lymphadenopathy Respiratory: Positive: normal lung sounds bilaterally. Negative: rales, rhonchi, tachypnea, wheezes, stridor Cardiovascular: Positive: regular rate, normal rhythm, normal heart sounds GI/Abdominal: Positive: soft, nontender, nondistended, normal bowel sounds Extremities: Positive: normal capillary refill, no edema, no cellulitis, bilateral pulses positive, negative ruthy's sign bilaterally Neurological: Positive: alert, oriented X3, CN II-XII intact Integumentary: Positive: warm, dry, intact, normal color, no rash - Social Medical History Smoking Status: Never smoker Alcohol Use: No Drug Use: No Involved in Unsafe/Hurtful Relationship: No Is Patient Being Hurt at Home or Feeling Unsafe: No Cardiac Hx: A-Fib, Cardiac Cath, CHF, HTN, Pacemaker Hx Heart Failure? How Many Times?: Yes Other Cardiac Hx: CHF in the past GI Hx: Gall Bladder Removed, GERD, Irritable Bowel Musculoskeletal Hx: Arthritis, Back problems, Back pain Endocrine: Hypoglycemia Other Cancer Hx: Blood disorder, M. Tarun Other Hematologic Hx: PROTEIN IN BLOOD WHICH IS PRE-CANCERIOUS Psych Hx: Anxiety - Family History Father Family Hx: Unknown Mother Family Hx: Unknown - Vital Signs Vitals: Vital Signs Temp Pulse Resp BP Pulse Ox 06/24/17 19:49 37.2 C 83 20 160/76 H 99 - MDM/Admission Progress Note MDM Note: 06/24/17 20:32 Patient is a 67-year-old female since for fever/nonproductive cough. Most likely secondary to viral etiology, however due to her extensive cardiac history, we'll perform a cardiac workup for the shortness of breath. We'll obtain a CBC, CMP, PT/INR, BNP, mag, troponin, EKG, chest x-ray, rapid influenza. 06/24/17 22:35 Patient currently resting comfortably in bed. Rapid influenza negative. Chest x-ray revealed no acute cardiopulmonary pathology. Troponins negative. CBC, CMP, PT/INR, BNP, mag, within normal limits. Discussed results of patient's. This is most likely a viral upper respiratory infection. She was advised to continue supportive care at home for her symptoms. She will be given a prescription for Tessalon Perles for the cough. If her symptoms worsen or change in etiology, she is to report to the ED. Otherwise she should've follow-up with her primary care doctor within the week. - Critical Care Time Total Critical Care Time (min): [address] [facility] Influenza A/B Antigen Rapido n 06-24-2017 Influenza A/B Antigen Rapid ---- RUN DATE: 06/24/17 [facility] LAB LIVE PAGE 1 RUN TIME: 2200 Specimen Inquiry ---- PATIENT: PAU MUÑOZ ACCT: [id number] LOC: 1EDA U: [id number] AGE/SX: 67/F ROOM: RE06/24/[address]: Paul Muller MD : 1950 BED: DIS: STATUS: REG ER TLOC: ---- SPEC #: [id number] HOPE: 06/24/17 STATUS: BAKARI REQ #: [id number] RECD: 06/24/17 [facility] DR: Heather Neff DO SOURCE: Nasopharyn ENTR: 06/24/17 [facility] DR: Ori Salomon MD [facility]: Timothy Palacio Sheldon MD ORDERED: Influenza A/B ---- Procedure Result ---- > Flu A Final Negative for Flu A antigen. Infection due to Flu A cannot be ruled out. Flu A antigen in the sample may be below the detection limit of the test. > Flu B Final Negative for Flu B antigen. Infection due to Flu B can not be ruled out. Flu B antigen in the sample may be below the detection limit of the test. ---- END OF REPORT Normal [facility] Comment on above: Performed By: #### U R, PTINR, TROP, FLUNOW, BNP ####[address] [address] Lactic Acidon 06-24-2017 Lactate molar conc 1.5 mmol/L Normal 0.4-2.[address] [facility] Comment on above: Performed By: #### C BC, CMP12, LA ####[address] [address] Protime INRon 06-24-2017 INR Coag RelTime (PPP) 1.4 {INR} High 0.9-1.[address] [facility] Comment on above: Result Comment: Plea note new reference range OF 06/06/2017 Performed By: #### U R, PTINR, TROP, FLUNOW, BNP ####[address] [address] Protein mass conc 15.5 sec High 9.8-12.7 [facility] Comment on above: Result Comment: Pleyaz trevizo note new reference range OF 06/06/2017 Performed By: #### U R, PTINR, TROP, FLUNOW, BNP ####[address] [address] Urinalysison 06-24-2017 Bilirubin, Urine Negative Normal Negative [facility] Comment on above: Order Comment: Comme nt CVMS Performed By: #### U R, PTINR, TROP, FLUNOW, BNP ####[address] [address] Clarity Nom (U) Clear Normal [facility] Comment on above: Order Comment: Comme nt CVMS Performed By: #### U R, PTINR, TROP, FLUNOW, BNP ####[facility] [place] [address] Color Nom (U) Yellow Normal [facility] Comment on above: Order Comment: Comme nt CVMS Performed By: #### U R, PTINR, TROP, FLUNOW, BNP ####[facility] [place] [address] [place] [address] Epithelial Cells Occasional Normal 0-5 [facility] Comment on above: Order Comment: Comme nt CVMS Performed By: #### U R, PTINR, TROP, FLUNOW, BNP ####[facility] [place] [address] Glucose Ql (U) Negative Normal Negative [facility] Comment on above: Order Comment: Comme nt CVMS Performed By: #### U R, PTINR, TROP, FLUNOW, BNP ####[facility] [place] [address] [place] [address] Hemoglobin Test strip Ql (U) Negative Normal Negative [facility] Comment on above: Order Comment: Comme nt CVMS Performed By: #### U R, PTINR, TROP, FLUNOW, BNP ####[facility] [place] [address] [place] [address] Ketones Ql (U) Negative Normal Negative [facility] Comment on above: Order Comment: Comme nt CVMS Performed By: #### U R, PTINR, TROP, FLUNOW, BNP ####[facility] [place] [address] [place] [address] Leukocyte esterase Test strip Ql (U) Negative Normal Negative [facility] Comment on above: Order Comment: Comme nt CVMS Performed By: #### U R, PTINR, TROP, FLUNOW, BNP ####[facility] [place] [address] [place] [address] Mucus, Urine Rare Normal [facility] Comment on above: Order Comment: Comme nt CVMS Performed By: #### U R, PTINR, TROP, FLUNOW, BNP ####[facility] [place] [address] Nitrates, Urine Negative Normal Negative [facility] Comment on above: Order Comment: Comme nt CVMS Performed By: #### U R, PTINR, TROP, FLUNOW, BNP ####[address] [address] pH Test strip (U) 7.0 [pH] Normal 5.0-9.0 [facility] Comment on above: Order Comment: Comme nt CVMS Performed By: #### U R, PTINR, TROP, FLUNOW, BNP ####[facility] [place] [address] Protein, Urine Negative Normal Negative [facility] Comment on above: Order Comment: Comme nt CVMS Performed By: #### U R, PTINR, TROP, FLUNOW, BNP ####[facility] [place] [address] Specific [place], Urine 1.021 Normal 1.000-1.[address] [facility] Comment on above: Order Comment: Comme nt CVMS Performed By: #### U R, PTINR, TROP, FLUNOW, BNP ####[address] [address] Urobilinogen, Urine Normal Normal <2.[address] [facility] Comment on above: Order Comment: Comme nt CVMS Performed By: #### U R, PTINR, TROP, FLUNOW, BNP ####[address] [address] RBC, Urine 0 /HPF Normal 0-3 [facility] Comment on above: Order Comment: Comme nt CVMS Performed By: #### U R, PTINR, TROP, FLUNOW, BNP ####[facility] [place], [place] [id number] Hemoglobin A1con 06-19-2017 Hemoglobin A1c/Hemoglobin.total mass fraction (Bld) 5.6 % Normal 4.4-6.3 [facility] Comment on above: Performed By: #### H A1C, VITD ####[address] [address] Vitamin Don 06-19-2017 Vitamin D 12.76 ng/mL Normal [facility] Comment on above: Result Comment: Clas sification of 25 [place] Vitamin D status:Deficiency: <20 ng/mLInsufficiency/Moderate Deficiency: 20-30 ng/mLSufficiency/Optimal Level: 30-100 ng/mLToxicity: >100 ng/mL Performed By: #### H A1C, VITD ####[facility] [place] [address] Lexascan Myoview SPECT/Stres son 03-31-2017 Lexascan Myoview SPECT/Stress [facility] Patient: PAU MUÑOZ [address] [facility] MR#: [id number] [place], [place] [address] : 1950 [address] Timothy Palacio DO Dept: Diagnostic Imaging Loc: [id number] DI REPORT Service Dt:03/29/17 Report#: [id number] Adm Dt: 03/29/17 Dis Dt: Comments: STUDY: NM Lexascan Myoview SPECT/Stress; 03/29/2017 10:22 am INDICATION: SOB. COMPARISON: None. ACCESSION NUMBER(S): [id number] ORDERING CLINICIAN: Timothy Palacio TECHNIQUE: DIVISION OF NUCLEAR MEDICINE PHARMACOLOGIC STRESS MYOCARDIAL PERFUSION SCAN, ONE DAY PROTOCOL The patient received an intravenous dose of 12.3 mCi of Tc-99m Myoview and resting emission tomographic (SPECT) images of the myocardium were acquired. The patient then received an intravenous infusion of 0.4 mg regadenoson (Lexiscan) followed by an additional dose of 30.6 mCi of Tc-99m Myoview. Stress phase SPECT images of the myocardium were then acquired. These included ECG-gated images to assess and quantify ventricular function. FINDINGS: Stress and rest images both demonstrate a normal distribution of perfusion throughout all LV segments with no sign of ischemia. ECG-gated images demonstrate normal LV size and myocardial contractility with an LV ejection fraction of 60 % (normal above 45 percent). IMPRESSION: 1. Normal stress myocardial perfusion imaging in response to pharmacologic stress. 2. Well-maintained left ventricular function. There is paradoxical septal motion noted. The gated ejection fraction 60%. Dictated by: Felisha Perry Electronically Signed by: Felisha Perry 03/31/2017 12:49 PM Normal [facility] Echocardiogramon 03-29-2017 Echocardiogram [facility] , [address] [place] [address] and TRANSTHORACIC ECHOCARDIOGRAM REPORT Patient Name: PAU MUÑOZ Reading Physician: JAKE Perry MD Study Date: 03/29/2017 Referring Physician: Timothy Palacio MRN/PID: [id number] PCP: Patient Department Location: [facility] Outpatient Accession/Order#: [id number] Patient Location: [address] Date of : 1950 66 years Nurse: Gender: F Manager Of Enterprise: Nigel Rivera Admission Status: Outpatient CC Report to: JAKE Perry MD Height: 152.40 cm CC Report to: Weight: 83.91 kg CC Report to: BSA: 1.81 m2 Study Type: Echo Diagnosis/ICD: R06.02 - Shortness of breath Indication: Dyspnea Procedure/CPT: Echo Complete w/Full Doppler (54383) Patient History: BMI: Obese >30 Pertinent History: Dyspnea. VSD repair 2007. Study Detail: The following Echo studies were performed: 2D, M-Mode, Doppler and color flow. Patient has a pacemaker. PHYSICIAN INTERPRETATION: Left Ventricle: The left ventricular systolic function is low normal, with an estimated ejection fraction of 50%. The left ventricular chamber size is normal. The left ventricular cavity size is normal. The left ventricular septal wall thickness is mildly increased. Abnormal (paradoxical) septal motion consistent with post-operative status and abnormal (paradoxical) septal motion, consistent with RV pacemaker. Spectral Doppler shows a normal pattern of left ventricular diastolic filling. Left Atrium: The left atrium is normal in size. Right Ventricle: The right ventricle is normal in size. There is normal right ventricular global systolic function. Right Atrium: The right atrium is normal in size. Aortic Valve: The aortic valve is trileaflet. There is evidence of mildly elevated transaortic gradients consistent with sclerosis of the aortic valve. There is mild aortic valve regurgitation. The peak instantaneous gradient of the aortic valve is 8.6 mmHg. Mitral Valve: The mitral valve is normal in structure. There is mild mitral valve regurgitation. Tricuspid Valve: The tricuspid valve is structurally normal. There is trace tricuspid regurgitation. The doppler estimated RVSP is mildly elevated at 38.5 mmHg. Pulmonic Valve: The pulmonic valve is structurally normal. There is physiologic pulmonic valve regurgitation. Pericardium: There is no pericardial effusion noted. Aorta: The aortic room is normal. CONCLUSIONS: 1. The left ventricular systolic function is low normal with a 50% estimated ejection fraction. 2. Abnormal septal motion consistent with post-operative status and abnormal septal motion consistent with RV pacemaker. 3. There is a no pericardial effusion. 4. Mildly elevated RVSP. 5. Aortic valve sclerosis. 6. There is mild aortic valve regurgitation. QUANTITATIVE DATA SUMMARY: 2D MEASUREMENTS: Normal Ranges: LAs: 3.74 cm (2.7-4.0cm) IVSd: 1.45 cm (0.6-1.1cm) LVPWd: 1.06 cm (0.6-1.1cm) LVIDd: 4.60 cm (3.9-5.9cm) LVIDs: 3.21 cm LV Mass Index: 121.4 g/m2 LV % FS 30.2 % LA VOLUME: Normal Ranges: LA Vol A4C: 73.6 ml (22+/-6mL/m2) LA Vol A2C: 66.3 ml LA Vol BP: 72.9 ml LA Vol Index A4C: 40.7 ml/m2 LA Vol Index A2C: 36.7 ml/m2 LA Vol Index BP: 40.4 ml/m2 LA Volume Index: 40.0 ml/m2 LA Vol A4C: 71.8 ml LA Vol A2C: 63.4 ml M-MODE MEASUREMENTS: Normal Ranges: Ao Root: 3.36 cm (2.0-3.7cm) LAs: 4.06 cm (2.7-4.0cm) LV DIASTOLIC FUNCTION: Normal Ranges: MV Peak E: 1.08 m/s (0.7-1.2 m/s) MV Peak A: 0.66 m/s (0.42-0.7 m/s) E/A Ratio: 1.64 (1.0-2.2) MV lateral e' 0.10 m/s MV medial e' 0.06 m/s MV A Dur: 149.94 msec MITRAL VALVE: Normal Ranges: MV DT: 79 msec (150-240msec) AORTIC VALVE: Normal Ranges: AoV Vmax: 1.47 m/s (<1.7m/s) AoV Peak P.6 mmHg (<20mmHg) LVOT Max Rocio: 0.81 m/s (<1.1m/s) LVOT VTI: 15.36 cm LVOT Diameter: 2.28 cm (1.8-2.4cm) AoV Area,Vmax: 2.26 cm2 (2.5-4.5cm2) AORTIC INSUFFICIENCY: AI Vmax: 4.71 m/s AI Half-time: 609 msec AI Decel Time: 2099 msec AI Decel Rate: 230.45 cm/s2 RIGHT VENTRICLE: RV 1 3.4 cm TRICUSPID VALVE/RVSP: Normal Ranges: Peak TR Velocity: 2.81 m/s RV Syst Pressure: 38.5 (< 30mmHg) PULMONIC VALVE: Normal Ranges: PV Max Rocio: 0.9 m/s (0.6-0.9m/s) PV Max P.2 mmHg JAKE Perry MD Electronically signed on 04/05/2017 at 9:34:56 AM Wall Scoring Final Normal [facility] EP Post Proc Progress Noteon 03-17-2017 EP Post Proc Progress Note [facility] Patient: PAU MUÑOZ [address] MR#: [id number] [place], [place] [address] : 1950 OrdMariam Gloria: Dept: PDOC Loc: CATH EP Post Proc Progress Note Service Dt: 03/17/17 Report#: [id number] Adm Dt: 03/17/17 Dis Dt: - EP Progress Note (post-procedure) Procedure: Cardioversion Diagnosis: Atrial flutter Anesthesia: MAC Result: Successful cardioversion using 150 J synchronized biphasic shock Complications: none Normal [facility] History AND Physicalon 03-17 History AND Physical [facility] Patient: PAU [address] MR#: [id number] [place], [place] [address] : 1950 Ord. : Dept: PDOC Loc: CATH History Physical Service Dt: 03/17/17 Report#: [id number] Adm Dt: 03/17/17 Dis Dt: History and Physical - Date of Service Date of Service: 03/17/17 - PCP/Chief Complaint Primary Care Physician: Ori Salomon - Patient Information HPI/ROS/Exam: This is a 66-year-old female with a history of atrial flutter. The patient also has had atrial fibrillation. The patient presents today for a cardioversion. She has been taking Xarelto for anticoagulation. The patient has been feeling increasingly short of breath over the past 2 weeks and was found to be back in atrial flutter Narrative: Complete heart block Paroxysmal atrial fibrillation Paroxysmal atrial flutter Cardiac: A-Fib, Cardiac Cath, CHF, HTN, Pacemaker Other ENT/Eye Hx: cataract surgery Other Cardiac Hx: CHF in the past GI: Gall Bladder Removed, GERD, Irritable Bowel , Female: Hysterectomy, Lumpectomy, right, UTI Musculoskeletal: Arthritis, Back problems, Back pain Endocrine: Hypoglycemia Other Cancer Hx: Blood disorder, M. Tarun Other Hematologic Hx: PROTEIN IN BLOOD WHICH IS PRE-CANCERIOUS - Past Surgical History Surgical: Pacemaker insertion [employer] History of a VSD repair at [facility] - Social History Smoking Status: Never smoker Does Patient Dip or Chew Tobacco: No Alcohol Use: No Use of Substances/Recreationa l Drugs: No - Family Health History Father Family Member Hx: Unknown Mother Family Member Hx: Unknown - Allergies Allergies/Adverse Reactions: Allergies cephalexin Allergy (Verified 12/13/16 07:39) Hives cephalexin monohydrate * [From Keflex] Allergy (Verified 12/13/16 07:39) Hives Cephalosporins Allergy (Verified 12/13/16 07:39) Hives Iodinated Contrast- Oral and IV Dye [IV DYE] Allergy (Verified 12/13/16 07:39) Hives and passed out levofloxacin Allergy (Verified 12/13/16 07:39) Hives Sulfa (Sulfonamide Antibiotics) Allergy (Verified 12/13/16 07:39) Hives - Medications Home Medications: Acetaminophen [Tylenol Extra Strength] 1,000 mg PO Q6 PRN 12/13/16 [History Last Taken Unknown] Black Cohosh 540 mg PO DAILY 12/13/16 [History Last Taken 03/16/17] Esomeprazole Magnesium [Nexium] 20 mg PO DAILY 12/13/16 [History Last Taken 03/17/17] L.acidoph,Paracasei, B.lactis [Probiotic] 1 each PO DAILY 12/13/16 [History Last Taken 03/16/17] Magnesium Oxide [Magnesium] 500 mg PO DAILY 12/13/16 [History Last Taken 03/16/17] Metoprolol Succinate [Toprol Xl] 200 mg PO DAILY 12/13/16 [History Last Taken 03/17/17] Pravastatin Sodium [Pravachol] 20 mg PO SUPPER 12/13/16 [History Last Taken 03/16/17] Rivaroxaban [Xarelto] 20 mg PO SUPPER 12/13/16 [History Last Taken 03/16/17] - Subjective Narrative ROS: Review of Systems completed. - Review of Systems Respiratory: Reports: SOB with exertion - Physical Exam Constitutional: Positive: alert, in no apparent distress Neck: Positive: no JVD Respiratory: Positive: normal lung sounds bilaterally Cardiovascular: Positive: irregular rhythm, irregular rate GI/Abdominal: Positive: soft, nontender Extremities: Positive: no edema Neurological: Positive: alert, oriented X3 - Assessment and Plan (1) Atrial flutter Status: Acute Current Visit: Yes Qualifiers: Atrial flutter type: typical Qualified Code(s): I48.3 - Typical atrial flutter Plan: 03/17/17 07:57 The patient has had a recurrence of atrial flutter. She has been on Xarelto, and will undergo a cardioversion. We will consider catheter ablation in the future the arrhythmia recurs. She has had atrial fibrillation and therefore we would consider both radiofrequency ablation for atrial flutter, and cryoablation for atrial fibrillation. Review and update is required if H P is greater than twenty-four hours. The patient was examined, the H P was reviewed. __ No Changes __ Changes noted below: Date/Time Attending Physician Normal [facility] Post-Anesthesia Care Noteon 03-17-2017 Post-Anesthesia Care Note [facility] Patient: PAU MUÑOZ [address] [facility] MR#: [id number] [place], [place] [address] : 1950 Ord. : Dept: PDOC Loc: CATH Procedure Note Service Dt: 03/17/17 Report#: [id number] Adm Dt: 03/17/17 Dis Dt: 03/17/17 Anesthesia DC Evaluation - Discharge Evaluation Anesthesia Discharge Evaluation: Outpatient - Airway Airway: Patient with unassisted respiration(s) - Cardiovascular Cardiovascular: CV stable without support - Mental Status Mental Status: Awake and oriented X 3 - Pain Pain: Adequately controlled - Nausea/Vomiting Nausea/Vomiting: Absent - Post-Op Hydration Post-Op Hydration: Tolerating oral intake Normal [facility] Basic Metabolic Panel $$$on 01-02-2017 Anion gap 3 molar conc 14.4 mmol/L Normal [facility] Comment on above: Performed By: #### B MARCOS HANNAH ####[facility] [place] [address] Calcium mass conc 9.5 mg/dL Normal 8.5-10.1 [facility] Comment on above: Performed By: #### B MARCOS HANNAH ####[facility] [place] [address] Chloride molar conc 100 mmol/L Normal 98-[address] [facility] Comment on above: Performed By: #### B MARCOS HANNAH ####[facility] [place] [address] CO2 molar conc 28 mmol/L Normal 21-32 [facility] Comment on above: Performed By: #### B MARCOS HANNAH ####[facility] [place] [address] Creatinine mass conc 0.9 mg/dL Normal 0.6-1.3 [facility] Comment on above: Performed By: #### B MARCOS HANNAH ####[facility] [place] [address] GFR () >[address] [facility] Comment on above: Performed By: #### B MARCOS HANNAH ####[facility] [place], [place] [address], [place] [address] GFR (Non ) >[address] [facility] Comment on above: Result Comment: eGFR Units of measure: mL/min/1.73 m 2 Performed By: #### B MARCOS HANNAH ####[facility] [place] [address] Glucose mass conc 122 mg/dL High 74-106 [facility] Comment on above: Performed By: #### B MARCOS HANNAH ####[facility] [place], [place] [address], [place] [address] Potassium molar conc 4.4 mmol/L Normal 3.5-5.1 [facility] Comment on above: Performed By: #### B MARCOS HANNAH ####[facility] [place], [place] [address], [place] [address] Sodium molar conc 138 mmol/L Normal 136-145 [facility] Comment on above: Performed By: #### B MARCOS HANNAH ####[facility] [place] [address] Urea nitrogen mass conc (Bld) 12 mg/dL Normal 7-[address] [facility] Comment on above: Performed By: #### B MARCOS HANNAH ####[facility] [place] [address] Hemoglobin A1con 01-02-2017 Hemoglobin A1c/Hemoglobin.total mass fraction (Bld) 6.0 % Normal 4.4-6.3 [facility] Comment on above: Performed By: #### B MARCOS HANNAH ####[facility] [place] [address] EP Post Proc Progress Noteon 12-13-2016 EP Post Proc Progress Note [facility] Patient: PAU MUÑOZ MR#: [id number] [place], [place] [address] : 1950 Ord[birth year] : Dept: PDOC Loc: CATH EP Post Proc Progress Note Service Dt: 12/13/16 Report#: [id number] Adm Dt: 12/13/16 Dis Dt: - EP Progress Note (post-procedure) Procedure: Cardioversion Diagnosis: Atrial fibrillation Anesthesia: MAC Result: Successful cardioversion using 150 J synchronized biphasic shock Complications: none Normal [facility] History AND Physicalon 12-13 History AND Physical [facility] Patient: PAU MUÑOZ MR#: [id number] [place], [place] [address] : 1950 Ord. : Dept: PDOC Loc: CATH History Physical Service Dt: 12/13/16 Report#: [id number] Adm Dt: 12/13/16 Dis Dt: History and Physical - Date of Service Date of Service: 12/13/16 - PCP/Chief Complaint Primary Care Physician: Ori Salomon - Patient Information HPI/ROS/Exam: This is a 66-year-old female with a history of paroxysmal atrial fibrillation and complete heart block. The patient has been expressing palpitations and was recently found to be back in atrial fibrillation. She has been on Xarelto for anticoagulation, and presents today for a cardioversion. - Past Medical History Cardiac: A-Fib, Cardiac Cath, CHF, HTN, Pacemaker Other ENT/Eye Hx: cataract surgery Other Cardiac Hx: CHF in the past GI: Gall Bladder Removed, GERD, Irritable Bowel , Female: Hysterectomy, Lumpectomy, right, UTI Musculoskeletal: Arthritis, Back problems, Back pain Endocrine: Hypoglycemia Other Cancer Hx: Blood disorder, M. Tarun Other Hematologic Hx: PROTEIN IN BLOOD WHICH IS PRE-CANCERIOUS - Past Surgical History Surgical: Pacemaker insertion Ventricular septal defect repair - Social History Smoking Status: Never smoker Does Patient Dip or Chew Tobacco: No Alcohol Use: No Use of Substances/Recreationa l Drugs: No - Family Health History Father Family Member Hx: Unknown Mother Family Member Hx: Unknown - Allergies Allergies/Adverse Reactions: Allergies cephalexin Allergy (Verified 12/13/16 07:39) Hives cephalexin monohydrate * [From Keflex] Allergy (Verified 12/13/16 07:39) Hives Cephalosporins Allergy (Verified 12/13/16 07:39) Hives Iodinated Contrast- Oral and IV Dye [IV DYE] Allergy (Verified 12/13/16 07:39) Hives and passed out levofloxacin Allergy (Verified 12/13/16 07:39) Hives Sulfa (Sulfonamide Antibiotics) Allergy (Verified 12/13/16 07:39) Hives - Medications Home Medications: Acetaminophen [Tylenol Extra Strength] 1,000 mg PO Q6 PRN 12/13/16 [History Last Taken Unknown] Black Cohosh 540 mg PO DAILY 12/13/16 [History Last Taken 12/12/16] Esomeprazole Magnesium [Nexium] 20 mg PO DAILY 12/13/16 [History Last Taken 12/12/16] L.acidoph,Paracasei, B.lactis [Probiotic] 1 each PO DAILY 12/13/16 [History Last Taken 12/12/16] Magnesium Oxide [Magnesium] 500 mg PO DAILY 12/13/16 [History Last Taken 12/12/16] Metoprolol Succinate [Toprol Xl] 200 mg PO DAILY 12/13/16 [History Last Taken 12/13/16] Pravastatin Sodium [Pravachol] 20 mg PO SUPPER 12/13/16 [History Last Taken 12/12/16] Rivaroxaban [Xarelto] 20 mg PO SUPPER 12/13/16 [History Last Taken 12/12/16] - Diagnostic Studies EKG: Atrial fibrillation with ventricular pacing - Review of Systems Respiratory: Reports: no symptoms reported Cardiovascular: Reports: palpitations - Vital Signs Vitals: 160/90 pulse 80 - Physical Exam Constitutional: Positive: alert, in no apparent distress Neck: Positive: no JVD Respiratory: Positive: normal lung sounds bilaterally Cardiovascular: Positive: irregular rhythm, irregular rate Extremities: Positive: no edema Neurological: Positive: alert, oriented X3 - Assessment and Plan (1) Atrial fibrillation Status: Acute Qualifiers: Atrial fibrillation type: persistent Qualified Code(s): I48.1 - Persistent atrial fibrillation Plan: 12/13/16 08:08 This patient has a history of atrial fibrillation, and was last cardioverted in 2010. She has been on Xarelto 20 mg daily, and was recently found to be back in atrial fibrillation. She presents today for a cardioversion. The procedure and risks were discussed. Review and update is required if H P is greater than twenty-four hours. The patient was examined, the H P was reviewed. __ No Changes __ Changes noted below: Date/Time Attending Physician [facility] Vital Signs Date Time Vital Sign Value Performing Clinician Facility 01-28-2025 12:46-0400 Body height 152.4 cm Ronit Shawjoni DO Work Phone: [facility] 01-28-2025 12:46-0400 Body mass index (BMI) [Ratio] 36.72 kg/m2 Ronitwallace Squiresk DO Work Phone: [facility] 01-28-2025 12:46-0400 Body weight 85.28 kg Ronitwallace Doan DO Work Phone: [facility] 01-28-2025 12:46-0400 Diastolic blood pressure 78 mm[Hg] Ronit Lopesdileepk DO Work Phone: [facility] 01-28-2025 12:46-0400 Heart rate 99 /min Ronit Shawk DO Work Phone: [facility] 01-28-2025 12:46-0400 Respiratory rate 16 /min Ronit Lopesidleepk DO Work Phone: [facility] 01-28-2025 12:46-0400 Systolic blood pressure 130 mm[Hg] Ronit Doan DO Work Phone: [facility] 10-28-2024 13:57-0400 Body height 152.4 cm Ronit Squiresk DO Work Phone: [facility] 10-28-2024 13:57-0400 Body mass index (BMI) [Ratio] 37.77 kg/m2 Ronit Ronyak DO Work Phone: [facility] 10-28-2024 13:57-0400 Body weight 87.73 kg Ronit Squiresk DO Work Phone: [facility] 10-28-2024 13:57-0400 Diastolic blood pressure 71 mm[Hg] Ronit Squiresk DO Work Phone: [facility] 10-28-2024 13:57-0400 Heart rate 89 /min Ronit Squiresk DO Work Phone: [facility] 10-28-2024 13:57-0400 Respiratory rate 16 /min Ronit Squiresk DO Work Phone: [facility] 10-28-2024 13:57-0400 Systolic blood pressure 120 mm[Hg] Ronit Squiresk DO Work Phone: [facility] 09-11-2024 09:00-0400 Body height 152.4 cm Jaylon Kiser DO Work Phone: [facility] 09-11-2024 09:00-0400 Body mass index (BMI) [Ratio] 37.89 kg/m2 Jaylon Kiser DO Work Phone: [facility] 09-11-2024 09:00-0400 Body weight 88 kg Jaylon Kiser DO Work Phone: [facility] 09-11-2024 09:00-0400 Diastolic blood pressure 74 mm[Hg] Jaylon Kiser DO Work Phone: [facility] 09-11-2024 09:00-0400 Heart rate 92 /min Jaylon Kiser DO Work Phone: [facility] 09-11-2024 09:00-0400 SaO2% (BldA) [Mass fraction] 95 % Jaylon Kiser DO Work Phone: [facility] 09-11-2024 09:00-0400 Systolic blood pressure 128 mm[Hg] Jaylon Kiser DO Work Phone: [facility] 07-22-2024 13:25-0400 Body height 152.4 cm Ronit Doan DO Work Phone: [facility] 07-22-2024 13:25-0400 Diastolic blood pressure 75 mm[Hg] Ronit Doan DO Work Phone: [facility] 07-22-2024 13:25-0400 Heart rate 88 /min Ronit Doan DO Work Phone: [facility] 07-22-2024 13:25-0400 Respiratory rate 18 /min Ronit Doan DO Work Phone: [facility] 07-22-2024 13:25-0400 Systolic blood pressure 132 mm[Hg] Ronit Doan DO Work Phone: [facility] 07-17-2024 13:12-0400 Body temperature 97.1 [degF] Dr. Ronit Doan DO Work Phone: [facility] 07-17-2024 13:12-0400 Diastolic blood pressure 54 mm[Hg] Dr. Ronit Doan DO Work Phone: [facility] 07-17-2024 13:12-0400 Heart rate 60 /min Dr. Ronit Doan DO Work Phone: [facility] 07-17-2024 13:12-0400 Respiratory rate 16 /min Dr. Ronit Doan DO Work Phone: [facility] 07-17-2024 13:12-0400 SaO2% (BldA) [Mass fraction] 95 % Dr. Ronit Doan DO Work Phone: [facility] 07-17-2024 13:12-0400 Systolic blood pressure 116 mm[Hg] Dr. Ronit Doan DO Work Phone: [facility] 07-17-2024 13:00-0400 Inhaled oxygen flow rate 2 L/min Dr. Ronit Doan DO Work Phone: [facility] 07-17-2024 10:26-0400 Body height 152.[address] Ronit Doan DO Work Phone: [facility] 07-17-2024 10:26-0400 Body mass index (BMI) [Ratio] 37.8 kg/m2 Dr. Ronit Doan DO Work Phone: [facility] 07-17-2024 10:26-0400 Body weight [address] Ronit Doan DO Work Phone: [facility] 07-11-2024 09:21-0500 Body mass index (BMI) [Ratio] 37.9 kg/m2 Dr. Ronit Doan DO Work Phone: [facility] 07-11-2024 09:21-0500 Body temperature 97.6 [degF] Dr. Ronit Doan DO Work Phone: [facility] 07-11-2024 09:21-0500 Body weight 88.[address] Ronit Doan DO Work Phone: [facility] 07-11-2024 09:21-0500 Diastolic blood pressure 64 mm[Hg] Dr. Ronit Doan DO Work Phone: [facility] 07-11-2024 09:21-0500 Heart rate 72 /min Dr. Ronit Doan DO Work Phone: [facility] 07-11-2024 09:21-0500 Respiratory rate 18 /min Dr. Ronit Doan DO Work Phone: [facility] 07-11-2024 09:21-0500 SaO2% (BldA) [Mass fraction] 99 % Dr. Ronit Doan DO Work Phone: [facility] 07-11-2024 09:21-0500 Systolic blood pressure 144 mm[Hg] Dr. Ronit Doan DO Work Phone: [facility] 06-20-2024 10:15-0500 Body height 152.4 cm Ronit Doan DO Work Phone: [facility] 06-20-2024 10:15-0500 Body mass index (BMI) [Ratio] 37.89 kg/m2 Ronit Doan DO Work Phone: [facility] 06-20-2024 10:15-0500 Body weight 88 kg Ronit Doan DO Work Phone: [facility] 06-20-2024 10:15-0500 Diastolic blood pressure 71 mm[Hg] Ronit Doan DO Work Phone: [facility] 06-20-2024 10:15-0500 Heart rate 84 /min Ronit Doan DO Work Phone: [facility] 06-20-2024 10:15-0500 Respiratory rate 16 /min Ronit Doan DO Work Phone: [facility] 06-20-2024 10:15-0500 Systolic blood pressure 128 mm[Hg] Ronit Doan DO Work Phone: [facility] 05-24-2024 10:44-0500 Body height 152.4 cm Timothy Palacio DO Work Phone: [facility] 05-24-2024 10:44-0500 Body mass index (BMI) [Ratio] 37.69 kg/m2 Timothy Palacio DO Work Phone: [facility] 05-24-2024 10:44-0500 Body weight 87.54 kg Timothy Navae DO Work Phone: [facility] 05-24-2024 10:44-0500 Diastolic blood pressure 66 mm[Hg] Timothy Cohnicone DO Work Phone: [facility] 05-24-2024 10:44-0500 Heart rate 83 /min Timothy Cohnicone DO Work Phone: [facility] 05-24-2024 10:44-0500 SaO2% (BldA) [Mass fraction] 95 % Timothy Cohnicone DO Work Phone: [facility] 05-24-2024 10:44-0500 Systolic blood pressure 132 mm[Hg] Timothy Cohnicone DO Work Phone: [facility] 04-23-2024 10:29-0500 Body height 152.4 cm Ronit Shawk DO Work Phone: [facility] 04-23-2024 10:29-0500 Body mass index (BMI) [Ratio] 37.42 kg/m2 Ronit Ronyak DO Work Phone: [facility] 04-23-2024 10:29-0500 Body weight 86.91 kg Ronitwallace Lopesyak DO Work Phone: [facility] 04-23-2024 10:29-0500 Diastolic blood pressure 70 mm[Hg] Ronit Lopesyak DO Work Phone: [facility] 04-23-2024 10:29-0500 Heart rate 78 /min Ronit Lopesyak DO Work Phone: [facility] 04-23-2024 10:29-0500 Respiratory rate 16 /min Ronit Lopesyak DO Work Phone: [facility] 04-23-2024 10:29-0500 Systolic blood pressure 131 mm[Hg] Ronit Lopesyak DO Work Phone: [facility] 01-29-2024 13:59-0400 Body height 152.4 cm Ronit Ronyak DO Work Phone: [facility] 01-29-2024 13:59-0400 Body mass index (BMI) [Ratio] 37.42 kg/m2 Ronit Ronyak DO Work Phone: [facility] 01-29-2024 13:59-0400 Body weight 86.91 kg Ronit Ronyak DO Work Phone: [facility] 01-29-2024 13:59-0400 Diastolic blood pressure 68 mm[Hg] Ronit Ronyak DO Work Phone: [facility] 01-29-2024 13:59-0400 Heart rate 87 /min Ronit Ronyak DO Work Phone: [facility] 01-29-2024 13:59-0400 Respiratory rate 16 /min Ronit Ronyak DO Work Phone: [facility] 01-29-2024 13:59-0400 Systolic blood pressure 145 mm[Hg] Ronit Ronyak DO Work Phone: [facility] 01-11-2024 13:01-0400 Body height 152.4 cm Ronit Ronyak DO Work Phone: [facility] 01-11-2024 13:01-0400 Body mass index (BMI) [Ratio] 36.99 kg/m2 Ronit Ronyak DO Work Phone: [facility] 01-11-2024 13:01-0400 Body weight 85.91 kg Ronit Ronyak DO Work Phone: [facility] 01-11-2024 13:01-0400 Diastolic blood pressure 70 mm[Hg] Ronit Ronyak DO Work Phone: [facility] 01-11-2024 13:01-0400 Heart rate 90 /min Ronit Ronyak DO Work Phone: [facility] 01-11-2024 13:01-0400 Respiratory rate 16 /min Ronit Doan DO Work Phone: [facility] 01-11-2024 13:01-0400 Systolic blood pressure 126 mm[Hg] Ronit Doan DO Work Phone: [facility] 01-03-2024 22:21-0400 Diastolic Blood Pressure Non-Invasive 89 mm[Hg] ZAK LEPE MD [facility] 01-03-2024 22:21-0400 Heart rate 62 /min ZAK LEPE MD [facility] 01-03-2024 22:21-0400 Respiratory rate 20 /min ZAK LEPE MD [facility] 01-03-2024 22:21-0400 Systolic Blood Pressure Non-Invasive 142 mm[Hg] ZAK LEPE MD [facility] 01-03-2024 21:18-0400 Blood Pressure Cuff Size ZAK LEPE MD [facility] 01-03-2024 21:18-0400 Blood Pressure Location ZAK LEPE MD [facility] 01-03-2024 21:18-0400 Blood Pressure Method ZKA LEPE MD [facility] 01-03-2024 21:18-0400 Body height 152.4 cm ZAK LEPE MD [facility] 01-03-2024 21:18-0400 Body temperature 98.6 [degF] ZAK LEPE MD [facility] 01-03-2024 21:18-0400 Body weight 86.4 kg ZAK LEPE MD [facility] 01-03-2024 21:18-0400 Diastolic Blood Pressure Non-Invasive 57 mm[Hg] ZAK LEPE MD [facility] 01-03-2024 21:18-0400 Heart rate 66 /min ZAK LEPE MD [facility] 01-03-2024 21:18-0400 Respiratory rate 16 /min ZAK LEPE MD [facility] 01-03-2024 21:18-0400 Systolic Blood Pressure Non-Invasive 169 mm[Hg] ZAK LEPE MD [facility] 11-21-2023 08:35-0400 Body height 152.4 cm Héctor Fairchild MD Work Phone: [facility] 11-21-2023 08:35-0400 Body mass index (BMI) [Ratio] 36.52 kg/m2 Héctor Fairchild MD Work Phone: [facility] 11-21-2023 08:35-0400 Body weight 84.82 kg Héctor Fairchild MD Work Phone: [facility] 11-21-2023 08:35-0400 Diastolic blood pressure 58 mm[Hg] Héctor Fairchild MD Work Phone: [facility] 11-21-2023 08:35-0400 Heart rate 77 /min Héctor Fairchild MD Work Phone: [facility] 11-21-2023 08:35-0400 Respiratory rate 18 /min Héctor Fairchild MD Work Phone: [facility] 11-21-2023 08:35-0400 Systolic blood pressure 127 mm[Hg] Héctor Fairchild MD Work Phone: [facility] 11-14-2023 13:34-0400 Diastolic blood pressure 55 mm[Hg] Charline Hagen DO Work Phone: [facility] 11-14-2023 13:34-0400 Systolic blood pressure 120 mm[Hg] Charline Hagen DO Work Phone: [facility] 11-14-2023 13:06-0400 Body height 152.4 cm Charline Hagen DO Work Phone: [facility] 11-14-2023 13:06-0400 Body mass index (BMI) [Ratio] 37.61 kg/m2 Charline Hagen DO Work Phone: [facility] 11-14-2023 13:06040 Body weight 87.36 kg Charline Hagen DO Work Phone: [facility] 11-14-2023 13:06-0400 Heart rate 83 /min Charline Hagen DO Work Phone: [facility] 10-16-2023 11:29-0400 Body height 152.4 cm Timothy Navae DO Work Phone: [facility] 10-16-2023 11:29-0400 Body mass index (BMI) [Ratio] 36.91 kg/m2 Timothy Cohnicone DO Work Phone: [facility] 10-16-2023 11:29-0400 Body weight 85.73 kg Timothy Cohnicone DO Work Phone: [facility] 10-16-2023 11:29-0400 Diastolic blood pressure 58 mm[Hg] Timothy Ramicone DO Work Phone: [facility] 10-16-2023 11:29-0400 Heart rate 76 /min Timothy Ramicone DO Work Phone: [facility] 10-16-2023 11:29-0400 SaO2% (BldA) [Mass fraction] 96 % Timothy Ramicone DO Work Phone: [facility] 10-16-2023 11:29-0400 Systolic blood pressure 119 mm[Hg] Timothy Palacio DO Work Phone: [facility] 09-26-2023 15:05-0400 Body height 152.4 cm Ronit Doan DO Work Phone: [facility] 09-26-2023 15:05-0400 Body mass index (BMI) [Ratio] 37.34 kg/m2 Ronit Squiresk DO Work Phone: [facility] 09-26-2023 15:05-0400 Body weight 86.73 kg Ronit Squiresk DO Work Phone: [facility] 09-26-2023 15:05-0400 Diastolic blood pressure 73 mm[Hg] Ronit Squiresk DO Work Phone: [facility] 09-26-2023 15:05-0400 Heart rate 84 /min Ronit Doan DO Work Phone: [facility] 09-26-2023 15:05-0400 Respiratory rate 16 /min Ronit Doan DO Work Phone: [facility] 09-26-2023 15:05-0400 Systolic blood pressure 114 mm[Hg] Ronit Doan DO Work Phone: [facility] 08-24-2023 11:00-0400 Body height 152.4 cm Jaylon Kiser DO Work Phone: [facility] 08-24-2023 11:00-0400 Body mass index (BMI) [Ratio] 37.5 kg/m2 Jaylon Kiser DO Work Phone: [facility] 08-24-2023 11:00-0400 Body weight 87.09 kg Jaylon Kiser DO Work Phone: [facility] 08-24-2023 11:00-0400 Diastolic blood pressure 70 mm[Hg] Jaylon Kiser DO Work Phone: [facility] 08-24-2023 11:00-0400 Heart rate 80 /min Jaylon Kiser DO Work Phone: [facility] 08-24-2023 11:00-0400 SaO2% (BldA) [Mass fraction] 94 % Jaylon Kiser DO Work Phone: [facility] 08-24-2023 11:00-0400 Systolic blood pressure 134 mm[Hg] Jaylon Kiser DO Work Phone: [facility] 08-08-2023 11:17-0400 Body height 152.4 cm Héctor Fairchild MD Work Phone: [facility] 08-08-2023 11:17-0400 Body weight 84.82 kg Héctor Fairchild MD Work Phone: [facility] 08-08-2023 11:17-0400 Diastolic blood pressure 65 mm[Hg] Héctor Fairchild MD Work Phone: [facility] 08-08-2023 11:17-0400 Heart rate 101 /min Héctor Fairchild MD Work Phone: [facility] 08-08-2023 11:17-0400 Respiratory rate 20 /min Héctor Fairchild MD Work Phone: [facility] 08-08-2023 11:17-0400 Systolic blood pressure 131 mm[Hg] Héctor Fairchild MD Work Phone: [facility] 06-21-2023 08:32-0500 Body height 152.[address] 06-21-2023 08:32-0500 Body mass index (BMI) [Ratio] 36.52 kg/m2 [address] 06-21-2023 08:32-0500 Body weight 84.[address] 06-13-2023 11:32-0500 Body weight 84.82 kg Héctor Fairchild MD Work Phone: [facility] 06-13-2023 11:32-0500 Diastolic blood pressure 70 mm[Hg] Héctor Fairchild MD Work Phone: [facility] 06-13-2023 11:32-0500 Heart rate 76 /min Héctor Fairchild MD Work Phone: [facility] 06-13-2023 11:32-0500 Systolic blood pressure 125 mm[Hg] Héctor Fairchild MD Work Phone: [facility] 06-07-2023 13:24-0500 Body height 152.4 cm Ronitwallace Squiresk DO Work Phone: [facility] 06-07-2023 13:24-0500 Body mass index (BMI) [Ratio] 36.79 kg/m2 Ronit Lopesyak DO Work Phone: [facility] 06-07-2023 13:24-0500 Body weight 85.46 kg Ronitwallace Squiresk DO Work Phone: [facility] 06-07-2023 13:24-0500 Diastolic blood pressure 62 mm[Hg] Ronit Lopesdileepk DO Work Phone: [facility] 06-07-2023 13:24-0500 Heart rate 85 /min Ronitwallace Lopesyak DO Work Phone: [facility] 06-07-2023 13:24-0500 Respiratory rate 16 /min Ronitwallace Squiresk DO Work Phone: [facility] 06-07-2023 13:24-0500 Systolic blood pressure 114 mm[Hg] Ronit Squiresk DO Work Phone: [facility] 05-16-2023 15:14-0500 Diastolic blood pressure 58 mm[Hg] Charline Hagen DO Work Phone: [facility] 05-16-2023 15:14-0500 Systolic blood pressure 118 mm[Hg] Charline Hagen DO Work Phone: [facility] 05-16-2023 14:53-0500 Body height 152.4 cm Charline Hagen DO Work Phone: [facility] 05-16-2023 14:53-0500 Body mass index (BMI) [Ratio] 36.91 kg/m2 Charline Hagen DO Work Phone: [facility] 05-16-2023 14:53-0500 Body weight 85.73 kg Charline Hagen DO Work Phone: [facility] 05-16-2023 14:53-0500 Heart rate 88 /min Charline Hagen DO Work Phone: [facility] 05-16-2023 14:53-0500 SaO2% (BldA) [Mass fraction] 97 % Charline Hagen DO Work Phone: [facility] 05-05-2023 11:23-0500 Body height 152.4 cm Ronit Doan DO Work Phone: [facility] 05-05-2023 11:23-0500 Body mass index (BMI) [Ratio] 36.99 kg/m2 Ronit Squiresk DO Work Phone: [facility] 05-05-2023 11:23-0500 Body weight 85.91 kg Ronit Squiresk DO Work Phone: [facility] 05-05-2023 11:23-0500 Diastolic blood pressure 66 mm[Hg] Ronit Mosesyak DO Work Phone: [facility] 05-05-2023 11:23-0500 Heart rate 82 /min Ronitwallace Lopesyak DO Work Phone: [facility] 05-05-2023 11:23-0500 Respiratory rate 16 /min Ronitwallace Lopesyak DO Work Phone: [facility] 05-05-2023 11:23-0500 Systolic blood pressure 127 mm[Hg] Ronit Ronyak DO Work Phone: [facility] 04-24-2023 13:54-0500 Body temperature 97.11 [degF] Kira Olvera MD Work Phone: [facility] 04-24-2023 13:54-0500 Diastolic blood pressure 63 mm[Hg] Kira Olvera MD Work Phone: [facility] 04-24-2023 13:54-0500 Heart rate 65 /min Kira Olvera MD Work Phone: [facility] 04-24-2023 13:54-0500 Respiratory rate 16 /min Kira Olvera MD Work Phone: [facility] 04-24-2023 13:54-0500 SaO2% (BldA) [Mass fraction] 98 % Kira Olvera MD Work Phone: [facility] 04-24-2023 13:54-0500 Systolic blood pressure 116 mm[Hg] Kira Olvera MD Work Phone: [facility] 04-24-2023 03:53-0500 Body height 152.4 cm Kira Olvera MD Work Phone: [facility] 04-24-2023 03:53-0500 Body mass index (BMI) [Ratio] 36.17 kg/m2 Kira Olvera MD Work Phone: [facility] 04-24-2023 03:53-0500 Body weight 84 kg Kira Olvera MD Work Phone: [facility] 02-17-2023 13:26-0400 Body height 152.4 cm Ronit Doan DO Work Phone: [facility] 02-17-2023 13:26-0400 Body mass index (BMI) [Ratio] 36.64 kg/m2 Ronit Doan DO Work Phone: [facility] 02-17-2023 13:26-0400 Body weight 85.09 kg Ronit Doan DO Work Phone: [facility] 02-17-2023 13:26-0400 Diastolic blood pressure 59 mm[Hg] Ronit Doan DO Work Phone: [facility] 02-17-2023 13:26-0400 Heart rate 75 /min Ronit Squiresk DO Work Phone: [facility] 02-17-2023 13:26-0400 Respiratory rate 16 /min Ronit Doan DO Work Phone: [facility] 02-17-2023 13:26-0400 Systolic blood pressure 128 mm[Hg] Ronit Doan DO Work Phone: [facility] 01-18-2023 14:26-0400 2.2 1 Ronit Doan Work Phone: [facility] Work Phone: Comment on above: IOINR3 01-04-2023 10:43-0400 2.6 1 Ronit Doan Work Phone: [facility] Work Phone: Comment on above: IOINR3 12-28-2022 10:39-0400 2.3 1 Ronit Doan Work Phone: [facility] Work Phone: Comment on above: IOINR3 12-20-2022 10:40-0400 3.3 1 Ronit Doan Work Phone: [facility] Work Phone: Comment on above: IOINR3 12-15-2022 11:24-0400 Body height 152.4 cm Ronit Doan DO Work Phone: [facility] 12-15-2022 11:24-0400 Body mass index (BMI) [Ratio] 36.72 kg/m2 Ronit Doan DO Work Phone: [facility] 12-15-2022 11:24-0400 Body weight 85.28 kg Ronit Doan DO Work Phone: [facility] 12-15-2022 11:24-0400 Diastolic blood pressure 88 mm[Hg] Ronit Doan DO Work Phone: [facility] 12-15-2022 11:24-0400 Heart rate 72 /min Ronit Doan DO Work Phone: [facility] 12-15-2022 11:24-0400 Respiratory rate 16 /min Ronit Doan DO Work Phone: [facility] 12-15-2022 11:24-0400 Systolic blood pressure 154 mm[Hg] Ronit Doan DO Work Phone: [facility] 12-13-2022 13:05-0400 3 1 Ronit Doan Work Phone: [facility] Work Phone: Comment on above: IOINR3 12-10-2022 10:42-0400 Body temperature 98.06 [degF] Tod Cabello DO [facility] 12-10-2022 10:42-0400 Body weight 85.3 kg Tod Cabello DO [facility] 12-10-2022 10:42-0400 Diastolic blood pressure 71 mm[Hg] Tod Cabello DO [facility] 12-10-2022 10:42-0400 Heart rate 64 /min Tod Cabello DO [facility] 12-10-2022 10:42-0400 Respiratory rate 18 /min Tod Cabello DO [facility] 12-10-2022 10:42-0400 SaO2% (BldA) [Mass fraction] 95 % Tod Cabello DO [facility] 12-10-2022 10:42-0400 Systolic blood pressure 149 mm[Hg] Tod Cabello DO [facility] 11-29-2022 10:07-0400 2.4 1 Ronit Doan Work Phone: [facility] Work Phone: Comment on above: IOIN 11-15-2022 10:13-0400 2.6 1 Ronit Doan Work Phone: [facility] Work Phone: Comment on above: IOINR3 11-11-2022 13:36-0400 Body mass index (BMI) [Ratio] 36.52 kg/m2 Ronit Squiresjoni DO Work Phone: [facility] 11-11-2022 13:36-0400 Body weight 84.82 kg Ronit Squiresjoni [place] Work Phone: [facility] 11-11-2022 13:36-0400 Diastolic blood pressure 52 mm[Hg] Ronit Squiresjoni DO Work Phone: [facility] 11-11-2022 13:36-0400 Heart rate 61 /min Ronit Squiresjoni DO Work Phone: [facility] 11-11-2022 13:36-0400 Systolic blood pressure 117 mm[Hg] Ronit Squiresk DO Work Phone: [facility] 11-01-2022 10:29-0400 2.6 1 Ronit A Ronyak Work Phone: GL-Nmefhklyhj-Qvmnm Work Phone: Comment on above: IOINR3 10-26-2022 09:51-0400 2.8 1 Ronit Doan Work Phone: PU-Ahoblzwoyf-Zavvq Work Phone: Comment on above: IOINR3 10-18-2022 14:24-0400 3.3 1 Ronit Doan Work Phone: JY-Ujggfzkrkr-Hufay Work Phone: Comment on above: IOINR3 10-14-2022 11:45-0400 Diastolic blood pressure 58 mm[Hg] Ronit Doan Work Phone: FV-Jtpvfhwtat-Hvsnm Work Phone: 10-14-2022 11:45-0400 Systolic blood pressure 110 mm[Hg] Ronit Doan Work Phone: JY-Yxvceiepeo-Frybn Work Phone: 10-14-2022 11:29-0400 Body height 152.4 cm Ronit Doan Work Phone: UI-Vjipmixfvj-Ueyoo Work Phone: 10-14-2022 11:29-0400 Body mass index (BMI) [Ratio] 36.33 kg/m2 Ronit Doan Work Phone: ZU-Nyeenbyhka-Ufvov Work Phone: 10-14-2022 11:29-0400 Body surface area Derived from formula 1.81 m2 Ronit Squiresk Work Phone: UM-Fmlzdolirm-Ijfqp Work Phone: 10-14-2022 11:29-0400 Body weight 84.37 kg Ronit Squiresk Work Phone: GO-Irbnlbvdbq-Unulh Work Phone: 10-14-2022 11:29-0400 Diastolic blood pressure 64 mm[Hg] Ronit Squiresk Work Phone: UU-Yelvugrrdx-Gdmvb Work Phone: 10-14-2022 11:29-0400 Heart rate 70 /min Ronit Squiresk Work Phone: ZF-Syhesgydlv-Jxqgo Work Phone: 10-14-2022 11:29-0400 Respiratory rate 16 /min Ronit Squiresk Work Phone: NG-Nahheunuui-Kxngw Work Phone: 10-14-2022 11:29-0400 SaO2% (BldA) [Mass fraction] 93 % Ronit Squiresk Work Phone: EY-Hjbkkaioyl-Oljmq Work Phone: 10-14-2022 11:29-0400 Systolic blood pressure 122 mm[Hg] Ronit Squiresk Work Phone: AA-Rdzmwixqax-Luwnn Work Phone: 10-11-2022 13:32-0400 2.8 1 Ronit Squiresk Work Phone: NW-Hdugabalwg-Kkcoa Work Phone: Comment on above: IOINR3 10-04-2022 15:34-0400 Body height 152.4 cm Ronit Squiresk DO Work Phone: [facility] 10-04-2022 15:34-0400 Body mass index (BMI) [Ratio] 36.72 kg/m2 Ronit Squiresk DO Work Phone: [facility] 10-04-2022 15:34-0400 Body weight 85.28 kg Ronit Squiresk DO Work Phone: [facility] 10-04-2022 15:34-0400 Diastolic blood pressure 48 mm[Hg] Ronit Squiresk DO Work Phone: [facility] 10-04-2022 15:34-0400 Heart rate 63 /min Ronit Doan DO Work Phone: [facility] 10-04-2022 15:34-0400 Systolic blood pressure 136 mm[Hg] Ronit Doan DO Work Phone: [facility] 10-04-2022 13:18-0400 3.9 1 Ronit Yaz Olimpia Work Phone: [facility] Work Phone: Comment on above: IOINR3 09-27-2022 11:45-0400 3.5 1 Ronit Yaz Olimpia Work Phone: [facility] Work Phone: Comment on above: IOINR3 09-21-2022 11:21-0400 3.4 1 Ronit Yaz Olimpia Work Phone: [facility] Work Phone: Comment on above: IOINR3 09-15-2022 10:48-0400 Body height 152.4 cm Ronit Squiresjoni Work Phone: -[facility] Work Phone: 09-15-2022 10:48-0400 Body mass index (BMI) [Ratio] 36.33 kg/m2 Ronit Doan Work Phone: -[facility] Work Phone: 09-15-2022 10:48-0400 Body surface area Derived from formula 1.81 m2 Ronit Daon Work Phone: [facility] Work Phone: 09-15-2022 10:48-0400 Body weight 84.37 kg Ronit Doan Work Phone: [facility] Work Phone: 09-15-2022 10:48-0400 Diastolic blood pressure 58 mm[Hg] Ronit Doan Work Phone: [facility] Work Phone: 09-15-2022 10:48-0400 Heart rate 80 /min Ronit Doan Work Phone: [facility] Work Phone: 09-15-2022 10:48-0400 SaO2% (BldA) [Mass fraction] 96 % Ronit Doan Work Phone: [facility] Work Phone: 09-15-2022 10:48-0400 Systolic blood pressure 114 mm[Hg] Ronit Doan Work Phone: [facility] Work Phone: 09-14-2022 11:25-0400 2.6 1 Ronit Doan Work Phone: [facility] Work Phone: Comment on above: IOINR3 09-09-2022 11:08-0400 1.9 1 Ronit Doan Work Phone: [facility] Work Phone: Comment on above: IOINR3 09-06-2022 10:36-0400 4.3 1 Ronit Doan Work Phone: [facility] Work Phone: Comment on above: IOINR3 08-30-2022 10:57-0400 3.6 1 Ronit Doan Work Phone: [facility] Work Phone: Comment on above: IOINR3 08-24-2022 11:25-0400 4.9 1 Ronit Doan Work Phone: [facility] Work Phone: Comment on above: IOINR3 08-19-2022 10:33-0400 3.9 1 Ronit Doan Work Phone: [facility] Work Phone: Comment on above: IOINR3 08-18-2022 11:17-0400 Body height 152.4 cm Ronit Doan Work Phone: [facility] Work Phone: 08-18-2022 11:17-0400 Body mass index (BMI) [Ratio] 36.91 kg/m2 Ronit Doan Work Phone: [facility] Work Phone: 08-18-2022 11:17-0400 Body surface area Derived from formula 1.82 m2 Ronit Doan Work Phone: [facility] Work Phone: 08-18-2022 11:17-0400 Body weight 85.73 kg Ronit Doan Work Phone: [facility] Work Phone: 08-18-2022 11:17-0400 Diastolic blood pressure 60 mm[Hg] Ronit Squiresk Work Phone: [facility] Work Phone: 08-18-2022 11:17-0400 Heart rate 75 /min Ronit Yaz Squiresjoni Work Phone: [facility] Work Phone: 08-18-2022 11:17-0400 SaO2% (BldA) [Mass fraction] 96 % Ronit Squiresk Work Phone: [facility] Work Phone: 08-18-2022 11:17-0400 Systolic blood pressure 138 mm[Hg] Ronit Squiresk Work Phone: [facility] Work Phone: 08-16-2022 15:13-0400 2.3 1 Ronit Squiresk Work Phone: [facility] Work Phone: Comment on above: IOINR3 08-11-2022 09:06-0400 Body height 152.4 cm Ronit Squiresk DO Work Phone: [facility] 08-11-2022 09:06-0400 Body mass index (BMI) [Ratio] 37.11 kg/m2 Ronit Squiresk DO Work Phone: [facility] 08-11-2022 09:06-0400 Body weight 86.18 kg Ronit Squiresk DO Work Phone: [facility] 08-11-2022 09:06-0400 Diastolic blood pressure 48 mm[Hg] Ronit Squiresk DO Work Phone: [facility] 08-11-2022 09:06-0400 Heart rate 75 /min Ronit Squiresk DO Work Phone: [facility] 08-11-2022 09:06-0400 Systolic blood pressure 140 mm[Hg] Ronit Squiresk DO Work Phone: [facility] 06-29-2022 10:31-0500 Body mass index (BMI) [Ratio] 37.01 kg/m2 Ronit Doan Work Phone: [facility] Work Phone: 06-29-2022 10:31-0500 Body surface area Derived from formula 1.82 m2 Ronit Doan Work Phone: [employer] Work Phone: 06-29-2022 10:31-0500 Body weight 85.96 kg Ronit Doan Work Phone: [facility] Work Phone: 06-29-2022 10:31-0500 Diastolic blood pressure 51 mm[Hg] Ronit Doan Work Phone: [facility] [employer] Work Phone: 06-29-2022 10:31-0500 Heart rate 83 /min Ronit Doan Work Phone: [employer] [employer] Work Phone: 06-29-2022 10:31-0500 Systolic blood pressure 127 mm[Hg] Ronit Doan Work Phone: [employer] [employer] Work Phone: 05-26-2022 14:18-0500 Body height 152.4 cm Ronit Doan Work Phone: [facility] [employer] Work Phone: 05-26-2022 14:18-0500 Body mass index (BMI) [Ratio] 36.72 kg/m2 Ronit Doan Work Phone: [facility] [employer] Work Phone: 05-26-2022 14:18-0500 Body surface area Derived from formula 1.82 m2 Ronit Doan Work Phone: [employer] [employer] Work Phone: 05-26-2022 14:18-0500 Body weight 85.28 kg Ronit Doan Work Phone: [employer] [employer] Work Phone: 05-26-2022 14:18-0500 Diastolic blood pressure 53 mm[Hg] Ronit Doan Work Phone: [employer] Work Phone: 05-26-2022 14:18-0500 Heart rate 76 /min Ronit Doan Work Phone: [employer] Work Phone: 05-26-2022 14:18-0500 Systolic blood pressure 134 mm[Hg] Ronit Doan Work Phone: [employer] Work Phone: 04-14-2022 09:22-0500 Body height 152.4 cm Ronit Doan Work Phone: [employer] Work Phone: 04-14-2022 09:22-0500 Body mass index (BMI) [Ratio] 36.33 kg/m2 Ronit Doan Work Phone: [employer] [facility] Work Phone: 04-14-2022 09:22-0500 Body surface area Derived from formula 1.81 m2 Ronit Doan Work Phone: [employer] Work Phone: 04-14-2022 09:22-0500 Body temperature 97.6 [degF] Ronit Doan Work Phone: [employer] Work Phone: 04-14-2022 09:22-0500 Body weight 84.37 kg Ronit Doan Work Phone: [employer] Work Phone: 04-14-2022 09:22-0500 Diastolic blood pressure 50 mm[Hg] Ronit Doan Work Phone: [employer] Work Phone: 04-14-2022 09:22-0500 Heart rate 73 /min Ronit Doan Work Phone: [employer] Work Phone: 04-14-2022 09:22-0500 SaO2% (BldA) [Mass fraction] 95 % Ronit Doan Work Phone: [facility] Work Phone: 04-14-2022 09:22-0500 Systolic blood pressure 126 mm[Hg] Ronit Doan Work Phone: [facility] Work Phone: 03-21-2022 11:13-0500 Diastolic blood pressure 50 mm[Hg] Ronit Doan Work Phone: [employer] Work Phone: 03-21-2022 11:13-0500 Systolic blood pressure 118 mm[Hg] Ronit Doan Work Phone: [employer] [employer] Work Phone: 03-21-2022 10:48-0500 Body mass index (BMI) [Ratio] 37.16 kg/m2 Ronit Doan Work Phone: [employer] Work Phone: 03-21-2022 10:48-0500 Body surface area Derived from formula 1.83 m2 Ronit Doan Work Phone: [employer] Work Phone: 03-21-2022 10:48-0500 Body weight 86.3 kg Ronit Doan Work Phone: [employer] Work Phone: 03-21-2022 10:48-0500 Diastolic blood pressure 70 mm[Hg] Ronit Doan Work Phone: [employer] Work Phone: 03-21-2022 10:48-0500 Heart rate 86 /min Ronit Doan Work Phone: [facility] Work Phone: 03-21-2022 10:48-0500 SaO2% (BldA) [Mass fraction] 95 % Ronit Doan Work Phone: [facility] Work Phone: 03-21-2022 10:48-0500 Systolic blood pressure 142 mm[Hg] Ronit Doan Work Phone: [facility] Work Phone: 03-09-2022 13:26-0400 Body height 152.4 cm Ronit Doan Work Phone: [facility] Work Phone: 03-09-2022 13:26-0400 Body mass index (BMI) [Ratio] 36.52 kg/m2 Ronit Doan Work Phone: [facility] Work Phone: 03-09-2022 13:26-0400 Body surface area Derived from formula 1.81 m2 Ronit Doan Work Phone: [facility] Work Phone: 03-09-2022 13:26-0400 Body weight 84.82 kg Ronit Doan Work Phone: [facility] Work Phone: 02-17-2022 10:49-0400 Body height 152.4 cm Ronit Doan Work Phone: [facility] Work Phone: 02-17-2022 10:49-0400 Body mass index (BMI) [Ratio] 36.52 kg/m2 Ronit Doan Work Phone: [employer] [facility] Work Phone: 02-17-2022 10:49-0400 Body surface area Derived from formula 1.81 m2 Ronit Doan Work Phone: [employer] Work Phone: 02-17-2022 10:49-0400 Body weight 84.82 kg Ronit Doan Work Phone: [employer] [facility] Work Phone: 02-17-2022 10:49-0400 Diastolic blood pressure 62 mm[Hg] Ronit Doan Work Phone: [employer] [facility] Work Phone: 02-17-2022 10:49-0400 Heart rate 80 /min Ronit Doan Work Phone: [facility] Work Phone: 02-17-2022 10:49-0400 SaO2% (BldA) [Mass fraction] 98 % Ronit Doan Work Phone: [employer] [facility] Work Phone: 02-17-2022 10:49-0400 Systolic blood pressure 130 mm[Hg] Ronitwallace Doan Work Phone: [employer] [facility] Work Phone: 02-07-2022 08:59-0400 Body height 152.4 cm Ronitwallace Doan Work Phone: [employer] [facility] Work Phone: 02-07-2022 08:59-0400 Body mass index (BMI) [Ratio] 36.37 kg/m2 Ronit Doan Work Phone: [facility] Work Phone: 02-07-2022 08:59-0400 Body surface area Derived from formula 1.81 m2 Ronit Doan Work Phone: [facility] Work Phone: 02-07-2022 08:59-0400 Body weight 84.48 kg Ronit Doan Work Phone: [employer] Work Phone: 02-07-2022 08:59-0400 Diastolic blood pressure 74 mm[Hg] Ronit Doan Work Phone: -[facility] Work Phone: 02-07-2022 08:59-0400 Heart rate 79 /min Ronit Doan Work Phone: -[facility] Work Phone: 02-07-2022 08:59-0400 SaO2% (BldA) [Mass fraction] 93 % Ronit Doan Work Phone: -[facility] Work Phone: 02-07-2022 08:59-0400 Systolic blood pressure 159 mm[Hg] Ronitwallace Lopesric Work Phone: -[facility] Work Phone: 02-07-2022 08:59-0400 0 1 Ronit Doan Work Phone: -[facility] Work Phone: Comment on above: [employer] 01-17-2022 09:21-0400 Body height 152.4 cm Ronit Yaz Doan Work Phone: [employer] [employer] Work Phone: 01-17-2022 09:21-0400 Body mass index (BMI) [Ratio] 36.13 kg/m2 Ronit Doan Work Phone: [employer] [facility] [employer] Work Phone: 01-17-2022 09:21-0400 Body surface area Derived from formula 1.81 m2 Ronit Doan Work Phone: [employer] [facility] [employer] Work Phone: 01-17-2022 09:21-0400 Body weight 83.92 kg Ronit Doan Work Phone: [employer] [facility] [employer] Work Phone: 01-17-2022 09:21-0400 Diastolic blood pressure 60 mm[Hg] Ronit Doan Work Phone: [employer] [facility] [employer] Work Phone: 01-17-2022 09:21-0400 Heart rate 72 /min Ronit Doan Work Phone: [employer] [facility] [employer] Work Phone: 01-17-2022 09:21-0400 Systolic blood pressure 144 mm[Hg] Ronit Doan Work Phone: [employer] [facility] [employer] Work Phone: 01-12-2022 13:17-0400 Body height 152.4 cm Ronit Doan Work Phone: [employer] [facility] [employer] Work Phone: 01-12-2022 13:17-0400 Body mass index (BMI) [Ratio] 35.94 kg/m2 Ronit Doan Work Phone: [employer] [facility] [employer] Work Phone: 01-12-2022 13:17-0400 Body surface area Derived from formula 1.8 m2 Ronitwallace Doan Work Phone: [facility] Work Phone: 01-12-2022 13:17-0400 Body weight 83.46 kg Ronit Doan Work Phone: [facility] Work Phone: 11-02-2021 14:34-0400 Body height 152.4 cm Ronit Doan Work Phone: [facility] Work Phone: 11-02-2021 14:34-0400 Body mass index (BMI) [Ratio] 35.94 kg/m2 Ronit Doan Work Phone: [facility] Work Phone: 11-02-2021 14:34-0400 Body surface area Derived from formula 1.8 m2 Ronit Doan Work Phone: [facility] Work Phone: 11-02-2021 14:34-0400 Body temperature 97.6 [degF] Ronit Doan Work Phone: [facility] Work Phone: 11-02-2021 14:34-0400 Body weight 83.46 kg Ronit Doan Work Phone: [facility] Work Phone: 11-02-2021 14:34-0400 Diastolic blood pressure 65 mm[Hg] Ronit Doan Work Phone: [facility] Work Phone: 11-02-2021 14:34-0400 Heart rate 75 /min Ronit Doan Work Phone: [facility] Work Phone: 11-02-2021 14:34-0400 SaO2% (BldA) [Mass fraction] 95 % Ronit Doan Work Phone: [facility] Work Phone: 11-02-2021 14:34-0400 Systolic blood pressure 146 mm[Hg] Ronit Doan Work Phone: [facility] Work Phone: 11-02-2021 14:34-0400 6 1 Ronit Doan Work Phone: [facility] Work Phone: Comment on above: [employer] 09-21-2021 15:27-0400 Diastolic blood pressure 65 mm[Hg] Ronit Doan Work Phone: YB-Wfthbagdwt-Ztblu Work Phone: 09-21-2021 15:27-0400 Systolic blood pressure 138 mm[Hg] Ronit Doan Work Phone: QQ-Cedoayhiqx-Ruljc Work Phone: 09-21-2021 14:58-0400 Body mass index (BMI) [Ratio] 36.23 kg/m2 Ronit Doan Work Phone: KC-Bfgotmaknc-Zwtfm Work Phone: 09-21-2021 14:58-0400 Body surface area Derived from formula 1.81 m2 Ronit Doan Work Phone: AO-Ckuvydgzst-Vhckw Work Phone: 09-21-2021 14:58-0400 Body weight 84.14 kg Ronit Doan Work Phone: NG-Auxkkvldmp-Kavfx Work Phone: 09-21-2021 14:58-0400 Diastolic blood pressure 60 mm[Hg] Ronitwallace Squiresk Work Phone: NL-Nsppzjapkq-Umvzm Work Phone: 09-21-2021 14:58-0400 Heart rate 83 /min Ronit Squiresk Work Phone: NL-Pttmdxdeul-Psate Work Phone: 09-21-2021 14:58-0400 SaO2% (BldA) [Mass fraction] 97 % Ronit Squiresk Work Phone: LD-Ficineatxa-Ybsfo Work Phone: 09-21-2021 14:58-0400 Systolic blood pressure 130 mm[Hg] Ronit qSuiresk Work Phone: NC-Kiehacmzuq-Xzknw Work Phone: 09-20-2021 09:49-0400 Body mass index (BMI) [Ratio] 36.41 kg/m2 Ronit Squiresk Work Phone: DK-Oosubbcujv-Xexta Work Phone: 09-20-2021 09:49-0400 Body surface area Derived from formula 1.81 m2 Ronit Squiresk Work Phone: ZW-Rzrxrxtnmc-Rgaei Work Phone: 09-20-2021 09:49-0400 Body weight 84.57 kg Ronit Squiresk Work Phone: PK-Uwuugnbsoy-Qvbcw Work Phone: 09-20-2021 09:49-0400 Diastolic blood pressure 60 mm[Hg] Ronit Squiresk Work Phone: TG-Nmifkswkln-Xxqcv Work Phone: 09-20-2021 09:49-0400 Heart rate 68 /min Ronit Squiresk Work Phone: RF-Rigdoztyeq-Rjwwd Work Phone: 09-20-2021 09:49-0400 Systolic blood pressure 129 mm[Hg] Ronitwallace Squiresk Work Phone: QC-Chdicxpmsb-Ncniu Work Phone: 08-19-2021 07:51-0400 Body height 152.4 cm Ronit Doan Work Phone: [facility] Work Phone: 08-19-2021 07:51-0400 Body mass index (BMI) [Ratio] 36.13 kg/m2 Ronit Yaz Olimpia Work Phone: [facility] Work Phone: 08-19-2021 07:51-0400 Body surface area Derived from formula 1.81 m2 Ronit Yaz Olimpia Work Phone: [facility] Work Phone: 08-19-2021 07:51-0400 Body weight 83.92 kg Ronit Yaz Olimpia Work Phone: [facility] Work Phone: 08-19-2021 07:51-0400 Diastolic blood pressure 64 mm[Hg] Ronit Yaz Olimpia Work Phone: [facility] Work Phone: 08-19-2021 07:51-0400 Heart rate 71 /min Ronit Yaz Olimpia Work Phone: [facility] Work Phone: 08-19-2021 07:51-0400 SaO2% (BldA) [Mass fraction] 96 % Ronit Yaz Olimpia Work Phone: [facility] Work Phone: 08-19-2021 07:51-0400 Systolic blood pressure 126 mm[Hg] Ronit Squiresjoni Work Phone: [facility] Work Phone: 08-01-2021 12:00-0400 Heart rate 60 /min Ronit Doan Other Phone: [facility] Other Phone (unformatted): [phone] 08-01-2021 12:00-0400 Respiratory rate 23 /min Ronit Doan Other Phone: [facility] Other Phone (unformatted): [phone] 08-01-2021 12:00-0400 SaO2% (BldA) [Mass fraction] 92 % Ronit Doan Other Phone: [facility] Other Phone (unformatted): [phone] 08-01-2021 11:00-0400 Diastolic blood pressure 63 mm[Hg] Ronit Doan Other Phone: [facility] Other Phone (unformatted): [id number] 08-01-2021 11:00-0400 Systolic blood pressure 133 mm[Hg] Ronit Doan Other Phone: [facility] Other Phone (unformatted): [phone] 08-01-2021 10:00-0400 Body temperature 97.7 [degF] Ronit Doan Other Phone: [facility] Other Phone (unformatted): [phone] 08-01-2021 09:59-0400 FiO2 21 1 Ronit Doan Other Phone: [facility] Other Phone (unformatted): [phone] 07-15-2021 09:55-0500 Body height 152.4 cm Ronit Doan Work Phone: [facility] Work Phone: 07-15-2021 09:55-0500 Body mass index (BMI) [Ratio] 37.3 kg/m2 Ronit Doan Work Phone: [employer] [facility] Work Phone: 07-15-2021 09:55-0500 Body surface area Derived from formula 1.83 m2 Ronit Doan Work Phone: [facility] Work Phone: 07-15-2021 09:55-0500 Body weight 86.64 kg Ronit Doan Work Phone: Formerly [facility], [facility] [address] Work Phone: 07-15-2021 09:55-0500 Diastolic blood pressure 70 mm[Hg] Ronit Doan Work Phone: [facility], [facility] [address] Work Phone: 07-15-2021 09:55-0500 Heart rate 68 /min Ronit Doan Work Phone: [facility], [facility] [address] Work Phone: 07-15-2021 09:55-0500 SaO2% (BldA) [Mass fraction] 96 % Ronit Doan Work Phone: [facility], [facility] [address] Work Phone: 07-15-2021 09:55-0500 Systolic blood pressure 128 mm[Hg] Ronit Doan Work Phone: [facility], [facility] [address] Work Phone: 06-30-2021 13:39-0500 Body height 152.4 cm Ronit Doan Work Phone: MV-Mbcxsgbvoq-Vlhzbr [address] [place] Work Phone: 06-30-2021 13:39-0500 Body mass index (BMI) [Ratio] 36.91 kg/m2 Ronit Doan Work Phone: RG-Ivwrkfsmys-Vcvlyb [address] [place] Work Phone: 06-30-2021 13:39-0500 Body surface area Derived from formula 1.82 m2 Ronit Squiresk Work Phone: GQ-Jxfajnmpdy-Urqubw [address] [place] Work Phone: 06-30-2021 13:39-0500 Body weight 85.73 kg Ronit Squiresk Work Phone: VM-Atmxmoqnhr-Bynfpw [address] [place] Work Phone: 06-30-2021 13:39-0500 Diastolic blood pressure 76 mm[Hg] Ronit Squiresk Work Phone: MZ-Yqrbypawjp-Xmypmu [address] [place] Work Phone: 06-30-2021 13:39-0500 Heart rate 82 /min Ronit Squiresk Work Phone: JZ-Nrievfxibr-Lhgigs [address] [place] Work Phone: 06-30-2021 13:39-0500 SaO2% (BldA) [Mass fraction] 97 % Ronit Squiresk Work Phone: HW-Dkrktrbpbs-Rietxm [address] [place] Work Phone: 06-30-2021 13:39-0500 Systolic blood pressure 160 mm[Hg] Ronit Squiresk Work Phone: FW-Bhjzjkfuqt-Vlhigh [address] [place] Work Phone: 06-21-2021 10:18-0500 Diastolic blood pressure 57 mm[Hg] Ronitwallace Doan Work Phone: [facility] Work Phone: 06-21-2021 10:18-0500 Systolic blood pressure 138 mm[Hg] Ronit Mukherjee Shawk Work Phone: [facility] Work Phone: 06-21-2021 10:00-0500 Body mass index (BMI) [Ratio] 36.81 kg/m2 Ronit Yaz Lopesric Work Phone: [facility] Work Phone: 06-21-2021 10:00-0500 Body surface area Derived from formula 1.82 m2 Ronit Doan Work Phone: [facility] Work Phone: 06-21-2021 10:00-0500 Body temperature 96.4 [degF] Ronitwlalace Doan Work Phone: [facility] Work Phone: 06-21-2021 10:00-0500 Body weight 85.5 kg Ronit Doan Work Phone: [facility] Work Phone: 06-21-2021 10:00-0500 Heart rate 85 /min Ronit Doan Work Phone: [facility] Work Phone: 04-17-2021 11:18-0500 Body temperature 97 [degF] Ronit Doan Work Phone: [facility] Work Phone: 04-17-2021 11:18-0500 Diastolic blood pressure 78 mm[Hg] Ronit Doan Work Phone: [facility] Work Phone: 04-17-2021 11:18-0500 Heart rate 69 /min Ronit Doan Work Phone: [facility] Work Phone: 04-17-2021 11:18-0500 Respiratory rate 16 /min Ronit Doan Work Phone: [facility] Work Phone: 04-17-2021 11:18-0500 SaO2% (BldA) [Mass fraction] 95 % Ronit Doan Work Phone: [facility] Work Phone: 04-17-2021 11:18-0500 Systolic blood pressure 157 mm[Hg] Ronit Squiresk Work Phone: [facility] Work Phone: 03-24-2021 15:12-0500 Diastolic blood pressure 68 mm[Hg] Ronitwallace Squiresk Work Phone: GM-Xrclqdprkf-Dbnyh Work Phone: 03-24-2021 15:12-0500 Systolic blood pressure 145 mm[Hg] Ronitwallace Squiresk Work Phone: JP-Uqcygblztk-Msrly Work Phone: 03-24-2021 14:43-0500 Body height 152.4 cm Ronitwallace Squiresk Work Phone: FZ-Ewaldouity-Ushft Work Phone: 03-24-2021 14:43-0500 Body mass index (BMI) [Ratio] 36.99 kg/m2 Ronit Squiresk Work Phone: AB-Qzaukoqnjw-Cmwrr Work Phone: 03-24-2021 14:43-0500 Body surface area Derived from formula 1.82 m2 Ronit Yaz Shawk Work Phone: PQ-Ypcmlwvfic-Iwmxo Work Phone: 03-24-2021 14:43-0500 Body weight 85.91 kg Ronitwallace Squiresk Work Phone: FQ-Pmyqmydotc-Cavrt Work Phone: 03-24-2021 14:43-0500 Diastolic blood pressure 65 mm[Hg] Ronit Yaz Mosesyak Work Phone: YM-Knhanxvxfi-Xxvll Work Phone: 03-24-2021 14:43-0500 Heart rate 70 /min Ronit Mukherjee Shawk Work Phone: PB-Uzbmmurhjy-Dgukb Work Phone: 03-24-2021 14:43-0500 SaO2% (BldA) [Mass fraction] 97 % Ronit Doan Work Phone: UK-Oqldhekkmu-Dzbih Work Phone: 03-24-2021 14:43-0500 Systolic blood pressure 154 mm[Hg] Ronitwallace Doan Work Phone: QP-Idiayiwayr-Wyetc Work Phone: 03-18-2021 13:32-0500 Body mass index (BMI) [Ratio] 36.95 kg/m2 Ronitwallace Doan Work Phone: [employer] [facility] [employer] Work Phone: 03-18-2021 13:32-0500 Body surface area Derived from formula 1.82 m2 Ronit Mukherjee Mosesdileepjoni Work Phone: [employer] [employer] Work Phone: 03-18-2021 13:32-0500 Body temperature 97.2 [degF] Ronitwallace Doan Work Phone: [employer] [employer] Work Phone: 03-18-2021 13:32-0500 Body weight 85.82 kg Ronit Mukherjee Olimpia Work Phone: [employer] [employer] Work Phone: 03-18-2021 13:32-0500 Diastolic blood pressure 64 mm[Hg] Ronit Mukherjee Olimpia Work Phone: [employer] [employer] Work Phone: 03-18-2021 13:32-0500 Heart rate 79 /min Ronit Squiresjoni Work Phone: [employer] [employer] Work Phone: 03-18-2021 13:32-0500 Systolic blood pressure 140 mm[Hg] Ronit Doan Work Phone: [facility] Work Phone: 01-25-2021 09:46-0400 Body height 152.4 cm Ronit Doan Work Phone: [employer] Work Phone: 01-25-2021 09:46-0400 Body mass index (BMI) [Ratio] 36.13 kg/m2 Ronit Doan Work Phone: [employer] Work Phone: 01-25-2021 09:46-0400 Body surface area Derived from formula 1.81 m2 Ronit Doan Work Phone: [employer] Work Phone: 01-25-2021 09:46-0400 Body weight 83.92 kg Ronit Doan Work Phone: [employer] Work Phone: 01-15-2021 10:37-0400 Body height 152.4 cm Ronit Doan Work Phone: AJ-Xjbcqccmmv-Uulejb [address] [place] Work Phone: 01-15-2021 10:37-0400 Body mass index (BMI) [Ratio] 36.52 kg/m2 Ronit Doan Work Phone: FP-Sgvbsclaku-Vmcibt [address] [place] Work Phone: 01-15-2021 10:37-0400 Body surface area Derived from formula 1.81 m2 Ronit Doan Work Phone: MC-Rkzzxwvglv-Rpgnyt [address] [place] Work Phone: 01-15-2021 10:37-0400 Body weight 84.82 kg Ronit Doan Work Phone: IU-Bcglqthccx-Hkrtmn [address] [place] Work Phone: 01-15-2021 10:37-0400 Diastolic blood pressure 71 mm[Hg] Ronit Squiresk Work Phone: FW-Mbkqmharms-Lqhapj [address] [place] Work Phone: 01-15-2021 10:37-0400 Heart rate 74 /min Ronit Squiresk Work Phone: YP-Cvrxesqvov-Bhrkre [address] [place] Work Phone: 01-15-2021 10:37-0400 SaO2% (BldA) [Mass fraction] 96 % Ronit Squiresk Work Phone: UZ-Ohbrnjmdlp-Derpzx [address] [place] Work Phone: 01-15-2021 10:37-0400 Systolic blood pressure 130 mm[Hg] Ronit Squiresk Work Phone: XF-Npuxpgmtrh-Oaqkux [address] [place] Work Phone: 01-15-2021 10:37-0400 0 1 Ronit Doan Work Phone: IB-Kfoazbgeyi-Ktsqrs [address] [place] Work Phone: Comment on above: [employer] 01-07-2021 11:59-0400 SaO2% (BldA) [Mass fraction] 97 % Ronit Doan Work Phone: [employer] Work Phone: 01-07-2021 11:56-0400 Body height 152.4 cm Ronit Doan Work Phone: [employer] Work Phone: 01-07-2021 11:56-0400 Body mass index (BMI) [Ratio] 36.52 kg/m2 Ronit Mukherjee Olimpia Work Phone: [employer] [facility] Work Phone: 01-07-2021 11:56-0400 Body surface area Derived from formula 1.81 m2 Ronit Doan Work Phone: [employer] Work Phone: 01-07-2021 11:56-0400 Body weight 84.82 kg Ronit Doan Work Phone: [employer] Work Phone: 01-07-2021 11:56-0400 Diastolic blood pressure 75 mm[Hg] Ronit Doan Work Phone: [employer] Work Phone: 01-07-2021 11:56-0400 Heart rate 79 /min Ronit Doan Work Phone: [employer] [employer] Work Phone: 01-07-2021 11:56-0400 Systolic blood pressure 150 mm[Hg] Ronit Doan Work Phone: [employer] [employer] Work Phone: 12-07-2020 13:42-0400 Body height 152.4 cm Ronit Doan Work Phone: [facility] [employer] Work Phone: 12-07-2020 13:42-0400 Body mass index (BMI) [Ratio] 35.94 kg/m2 Ronit Doan Work Phone: [employer] [employer] Work Phone: 12-07-2020 13:42-0400 Body surface area Derived from formula 1.8 m2 Ronit Doan Work Phone: [employer] Work Phone: 12-07-2020 13:42-0400 Body temperature 98.1 [degF] Ronit Doan Work Phone: [employer] Work Phone: 12-07-2020 13:42-0400 Body weight 83.46 kg Ronitwallace Doan Work Phone: [facility] Work Phone: 12-07-2020 13:42-0400 Diastolic blood pressure 74 mm[Hg] Ronit Doan Work Phone: [facility] Work Phone: 12-07-2020 13:42-0400 Heart rate 72 /min Ronit Doan Work Phone: [facility] Work Phone: 12-07-2020 13:42-0400 SaO2% (BldA) [Mass fraction] 95 % Ronit Doan Work Phone: [facility] Work Phone: 12-07-2020 13:42-0400 Systolic blood pressure 155 mm[Hg] Ronit Doan Work Phone: [facility] Work Phone: 11-17-2020 14:09-0400 Body height 152.4 cm Ronit Doan Work Phone: [facility] [employer] Work Phone: 11-17-2020 14:09-0400 Body mass index (BMI) [Ratio] 36.36 kg/m2 Ronit Doan Work Phone: [facility] [employer] Work Phone: 11-17-2020 14:09-0400 Body surface area Derived from formula 1.81 m2 Ronit Doan Work Phone: [facility] Work Phone: 11-17-2020 14:09-0400 Body weight 84.46 kg Ronit Doan Work Phone: [facility] Work Phone: 11-17-2020 14:09-0400 Diastolic blood pressure 62 mm[Hg] Ronit A Mosesric Work Phone: [facility] Work Phone: 11-17-2020 14:09-0400 Heart rate 64 /min Ronit Doan Work Phone: [facility] Work Phone: 11-17-2020 14:09-0400 Systolic blood pressure 140 mm[Hg] Ronit Yaz Olimpia Work Phone: [facility] Work Phone: 10-27-2020 09:57-0400 Body height 152.4 cm Ronitwallace Doan Work Phone: [facility] Work Phone: 10-27-2020 09:57-0400 Body mass index (BMI) [Ratio] 36.9 kg/m2 Ronitwallace Doan Work Phone: [facility] Work Phone: 10-27-2020 09:57-0400 Body surface area Derived from formula 1.82 m2 Ronit Yaz Olimpia Work Phone: [facility] Work Phone: 10-27-2020 09:57-0400 Body temperature 97 [degF] Ronit Doan Work Phone: [facility] Work Phone: 10-27-2020 09:57-0400 Body weight 85.7 kg Ronit Yaz Olimpia Work Phone: [facility] Work Phone: 10-27-2020 09:57-0400 Diastolic blood pressure 52 mm[Hg] Ronit Squiresjoni Work Phone: [facility] Work Phone: 10-27-2020 09:57-0400 Heart rate 66 /min Ronit Doan Work Phone: [facility] Work Phone: 10-27-2020 09:57-0400 Respiratory rate 16 /min Ronit Doan Work Phone: [facility] Work Phone: 10-27-2020 09:57-0400 SaO2% (BldA) [Mass fraction] 95 % Ronit Doan Work Phone: [facility] Work Phone: 10-27-2020 09:57-0400 Systolic blood pressure 112 mm[Hg] Ronit Doan Work Phone: [facility] Work Phone: 10-27-2020 09:57-0400 0 1 Ronit Doan Work Phone: [facility] Work Phone: Comment on above: [employer] 09-18-2020 13:19-0400 Body height 152.4 cm Katharine Scales Work Phone: ZI-Gdcqzfkwfr-Serwo Work Phone: 09-18-2020 13:19-0400 Body mass index (BMI) [Ratio] 35.94 kg/m2 Katharine Scales Work Phone: IZ-Nlmgdlqgpm-Skdhz Work Phone: 09-18-2020 13:19-0400 Body surface area Derived from formula 1.8 m2 Katharine Scales Work Phone: BN-Ayusciaadx-Nbexp Work Phone: 09-18-2020 13:19-0400 Body weight 83.46 kg Katharine Scales Work Phone: WC-Nlbsfwewyr-Xigdc Work Phone: 09-18-2020 13:19-0400 Diastolic blood pressure 67 mm[Hg] Katharine Scales Work Phone: QK-Qudgkuvkmo-Emebf Work Phone: 09-18-2020 13:19-0400 Heart rate 80 /min Katharine Scales Work Phone: RJ-Urtmyxntkf-Ofsbj Work Phone: 09-18-2020 13:19-0400 SaO2% (BldA) [Mass fraction] 96 % Katharine Scales Work Phone: MB-Quzdbgjznt-Lzaqn Work Phone: 09-18-2020 13:19-0400 Systolic blood pressure 134 mm[Hg] Katharine Scales Work Phone: PQ-Vgxeahdblk-Ybbxn Work Phone: 09-03-2020 15:07-0400 Body mass index (BMI) [Ratio] 36.33 kg/m2 Timothy Palacio [facility] Work Phone: 09-03-2020 15:07-0400 Body surface area Derived from formula 1.81 m2 Timothy [facility] Work Phone: 09-03-2020 15:07-0400 Body temperature 97.1 [degF] Timothy [place] [facility] Work Phone: 09-03-2020 15:07-0400 Body weight 84.37 kg Timothy [place] [facility] Work Phone: 09-03-2020 15:07-0400 Diastolic blood pressure 59 mm[Hg] Timothy [place] [facility] Work Phone: 09-03-2020 15:07-0400 Heart rate 78 /min Timothy [place] [facility] Work Phone: 09-03-2020 15:07-0400 SaO2% (BldA) [Mass fraction] 95 % Timothy Palacio DO [facility] Work Phone: 09-03-2020 15:07-0400 Systolic blood pressure 137 mm[Hg] Timothy Palacio DO [facility] Work Phone: 09-03-2020 13:07-0400 Body mass index (BMI) [Ratio] 36.33 kg/m2 Katharine Scales Work Phone: VB-Exwgqagijs-Pjwrn Work Phone: 09-03-2020 13:07-0400 Body surface area Derived from formula 1.81 m2 Katharine Scales Work Phone: CO-Qljbctyvpe-Mlmid Work Phone: 09-03-2020 13:07-0400 Body temperature 97.1 [degF] Katharine Scales Work Phone: EO-Faijbpxinc-Okjdm Work Phone: 09-03-2020 13:07-0400 Body weight 84.37 kg Katharine Scales Work Phone: XI-Lpqudbrxkk-Npvqd Work Phone: 09-03-2020 13:07-0400 Diastolic blood pressure 59 mm[Hg] Katharine Scales Work Phone: KF-Uyjiswwifv-Evppl Work Phone: 09-03-2020 13:07-0400 Heart rate 78 /min Katharine Scales Work Phone: PE-Vumwgsnbnj-Ldkqh Work Phone: 09-03-2020 13:07-0400 SaO2% (BldA) [Mass fraction] 95 % Katharine Scales Work Phone: CK-Kgekjmenhb-Qewoc Work Phone: 09-03-2020 13:07-0400 Systolic blood pressure 137 mm[Hg] Katharine Scales Work Phone: KU-Pjtgchvwel-Ibnxd Work Phone: 2020 12:43-0500 BMI (Body Mass Index) 35.96 kg/m2 Shelley Portillodanette EM-Lhpobssfxt-Lgflgf Work Phone: 2020 12:43-0500 Body weight 83.52 kg Shelley Portillodanette HZ-Equrqnltnq-Kj lakhwinder Work Phone: 2020 12:43-0500 BP Diastolic 73 mm[Hg] Shelley Portillodanette EN-Hhjjcuckyh-Np lakhwinder Work Phone: Comment on above: Location: RUE; Position: Sitting 2020 12:43-0500 BP Systolic 144 mm[Hg] Shelleyaldo Fajardo KO-Vfxomelgvf-Qb lakhwinder Work Phone: Comment on above: Location: RUE; Position: Sitting 2020 12:43-0500 BSA (Body Surface Area) 1.8 m2 Shelley Portillodanette DL-Igbaiowzbn-Mrrpoa Work Phone: 2020 12:43-0500 Height 152.4 cm Shelley Portillodanette GG-Ealgdmzjpp-Hy lakhwinder Work Phone: 2020 12:43-0500 Pulse (Heart Rate) 82 /min Shelley Bandardanette [facility] Work Phone: 2020 12:43-0500 Pulse Oximetry 97 % Shelley Bandardanette UJ-Hsfolguvga-Kb lakhwinder Work Phone: 04-06-2020 14:57-0500 BMI (Body Mass Index) 34.66 kg/m2 Shelley Fajardo [facility] Work Phone: 04-06-2020 14:57-0500 Body Temperature 97 [degF] Shelley Fajardo [facility] Work Phone: 04-06-2020 14:57-0500 Body weight 83.21 kg Shelley Fajardo [facility] Work Phone: 04-06-2020 14:57-0500 BP Diastolic 64 mm[Hg] Shelley Fajardo [facility] Work Phone: 04-06-2020 14:57-0500 BP Systolic 145 mm[Hg] Shelley Fajardo [facility] Work Phone: 04-06-2020 14:57-0500 BSA (Body Surface Area) 1.82 m2 Shelley Portillomaximinoblanca [facility] Work Phone: 04-06-2020 14:57-0500 Pulse (Heart Rate) 80 /min Shelley Portillomaximinoblanca [facility] Work Phone: 04-06-2020 14:57-0500 Pulse Oximetry 98 % Shelley Fajardo [facility] Work Phone: 09-23-2019 13:14-0400 BMI (Body Mass Index) 32.9 kg/m2 Timothy Cohnicone [facility] Work Phone: 09-23-2019 13:14-0400 Body weight 80.29 kg Timothy Cohnicone [facility] Work Phone: 09-23-2019 13:14-0400 BSA (Body Surface Area) 1.8 m2 Timothy Cohnicone [facility] Work Phone: 09-23-2019 13:14-0400 Height 156.21 cm Timothy Cohnicone [facility] Work Phone: 07-16-2019 11:53-0400 BMI (Body Mass Index) 33.09 kg/m2 Timothy Palacio [facility] Work Phone: 07-16-2019 11:53-0400 Body Temperature 98.9 [degF] Timothy Palacio [facility] Work Phone: 07-16-2019 11:53-0400 Body weight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 Phone: [facility] 100 DO Work Phone: Start: 03-01-2022 Chart Update Ronit Doan Work Phone: [facility] 100 DO Work Phone: Start: 03-01-2022 End: 03-01-[address] Yg López Facility:[id number] Start: 02-23-[address] Yg López Facility:[id number] Start: 02-23-2022 Encounter for prepro cedural cardiovascular examination Dr. Yg López [facility] Start: 02-23-2022 Encounter for prepro cedural laboratory examination [facility] Start: 02-17-2022 Patient encounter procedure Miriam Doan Work Phone[facility] [address] Work Phone: Start: 02-17-[address] Ronit Doan Facility:[id number] Start: 02-07-2022 ambulatory Timothy Palacio Facility :[id number] Start: 02-01-2022 Patient encounter procedure Miriam Doan Work Phone: [facility] Work Phone: Start: 02-01-2022 ambulatory Jaylon Kiser Facility: [id number] Start: 01-17-2022 Office outpatient vi sit 25 minutes Ronit Doan Work Phone: -[facility] Work Phone: Start: 11-25-[address] Timothy Palacio Facility:[id number] Start: 11-02-2021 Office outpatient vi sit 10 minutes Ronit Doan Work Phone: [facility] Work Phone: Start: 09-21-2021 Rx Renewal Ronit Doan Work Phone: UJ[facility]icyboxz[facility]ook[facility] [place] Work Phone: Start: 05-17-2022 Office outpatient vi sit 25 minutes Ronit Doan Work Phone: ZE-Oiiztyxfps-Poetx Work Phone: Start: 09-20-2021 Office outpatient vi sit 25 minutes Ronit Doan Work Phone: -[facility] Work Phone: Start: 09-20-2021 Patient encounter procedure Miriam Doan Work Phone: -[facility] Work Phone: Start: 08-19-2021 Postop follow up vis it related to original px Ronit Mukherjee Mosesric Work Phone: -[facility] Work Phone: Start: 07-30-2021 End: 08-01-2021 Evaluation and management of inpatient Jaylon Major [facility] [phone] Other Phone (unformatted): [phone] Start: 07-15-2021 Patient encounter procedure Miriam Doan Work Phone: -[facility] Work Phone: Start: 07-02-2021 Chart Update Ronitwallace Doan Work Phone: EO-Dlflvkigee-Wwxlw Work Phone: Start: 06-30-2021 Office outpatient vi sit 15 minutes Ronit Yaz Olimpia Work Phone: NO-Cdcgbenqoe-Sibwzy [address] [place] Work Phone: Start: 06-21-2021 Office outpatient vi sit 25 minutes Ronit Doan Work Phone: [facility] Work Phone: Start: 05-11-2021 AUDIT Ronit Yaz Doan Work Phone: [facility] Work Phone: Start: 05-11-2021 CAROTID, Provider: Jerome ALFONSO 3 MAC 03 VASCULAR LAB,MG VASC, Status: Pen, Time: 11:30 AM Ronit Yaz Olimpia Work Phone: SN[facility] Work Phone: Start: 04-27-2021 Patient encounter procedure Miriam Doan Work Phone: OF-Khnhwjjpgv-Rpnxv Work Phone: Start: 04-26-2021 AUDIT Ronit Mukherjee Olimpia Work Phone: [facility] Work Phone: Start: 04-22-2021 AUDIT Ronit Mukherjee Olimpia Work Phone: [facility] Work Phone: Start: 04-18-2021 Chart Update Ronit Lopesric Work Phone: [facility] Work Phone: Start: 04-17-2021 AUDIT Ronit Mukherjee Olimpia Work Phone: [facility] Work Phone: Start: 04-17-2021 Office outpatient vi sit 25 minutes Ronit Mukherjee Olimpia Work Phone: [facility] Work Phone: Start: 04-08-2021 AUDIT Ronit Mukherjee Olimpia Work Phone: [facility] Work Phone: Start: 03-24-2021 Office outpatient vi sit 40 minutes Ronit Lopesric Work Phone: ZY-Gmfegqnbdk-Ibqhu Work Phone: Start: 03-19-2021 Chart Update Ronit Lopesric Work Phone: [facility] Work Phone: Start: 03-10-2021 AUDIT Ronit Lopesric Work Phone: [facility] Work Phone: Start: 03-05-2021 AUDIT Ronit Doan Work Phone: [facility] Work Phone: Start: 02-18-2021 AUDIT Ronit Doan Work Phone: [facility] Work Phone: Start: 02-01-2021 Patient encounter procedure Miriam fredy Doan Work Phone: [facility] Work Phone: Start: 01-18-2021 AUDIT Ronit Yaz Olimpia Work Phone: CF-Tlycsyusfl[facility]Nfnbl Work Phone: Start: 01-15-2021 Office outpatient vi sit 25 minutes Ronit Doan Work Phone: DX-[facility]aeolwbcoj-[facility] [address] [place] Work Phone: Start: 01-07-2021 Patient encounter procedure Miriam fredy Doan Work Phone: [facility] Work Phone: Start: 12-28-2020 AUDIT Ronit Doan Work Phone: [facility] Work Phone: Start: 12-07-2020 Office outpatient vi sit 25 minutes Ronit Doan Work Phone: [facility] Work Phone: Start: 11-17-2020 Office outpatient ne w 60 minutes Ronit A Olimpia Work Phone: [facility] Work Phone: Start: 11-17-2020 Patient encounter procedure Miriam fredy A Shawk Work Phone: [facility] Work Phone: Start: 10-27-2020 Office outpatient ne w 30 minutes Ronit Doan Work Phone: [facility] Work Phone: Start: 10-20-2020 AUDIT Katharine lares Work Phone: [facility] Work Phone: Start: 10-09-2020 Chart Update Katharine lares Work Phone: BS-Wauyovgllk-Vtegql [address] [place] Work Phone: Start: 09-18-2020 Office outpatient vi sit 25 minutes Katharine Scales Work Phone: ZH-Fbaragndqw-Nlxjy Work Phone: Start: 09-03-2020 Patient encounter procedure Timothy santos DO [facility] Work Phone: Start: 07-22-2020 Patient encounter procedure Timothy santos DO [facility] Work Phone: Start: 2020 Patient encounter procedure Shelley garciaryanneeduardo JX-Nsszkqtkfu-Mijrhe Work Phone: Start: 05-12-2020 Patient encounter procedure Timothy santos DO [facility] Work Phone: Start: 04-06-2020 Patient encounter procedure Shelley samaniego [facility] Work Phone: Start: 01-21-2020 Patient encounter procedure Shelley maldonadoi [facility] Work Phone: Start: 10-29-2019 Patient encounter procedure Shelley samaniego [facility] Work Phone: Start: 09-23-2019 Patient encounter procedure Timothy santos [facility] Work Phone: Start: 08-13-2019 Patient encounter procedure Timothy santos [facility] Work Phone: Start: 08-05-2019 Patient encounter procedure Timothy santos [facility] Work Phone: Start: 07-23-2019 Patient encounter procedure Timothy santos [employer] Work Phone: Start: 07-16-2019 Patient encounter procedure Timothy santos [employer] [facility] Work Phone: Start: 05-29-2019 Nursing evaluation o f patient and report Timothy Palacio [facility] Work Phone: Start: 05-21-2019 Patient encounter procedure Timothy santos [facility] Work Phone: Start: 05-14-2019 Patient encounter procedure Katharine Scales [facility] Work Phone: Start: 04-30-2019 Patient encounter procedure Soniya aldo Ansari [employer] [facility] Work Phone: Start: 04-16-2019 Patient encounter procedure [facility] [employer] Work Phone: Start: 02-12-2019 [facility] Work Phone: Start: 02-01-2019 [facility] [employer] Work Phone: Start: 01-22-2019 [facility] [employer] Work Phone: Start: 11-27-2018 Patient encounter procedure Soniya [facility] [employer] Work Phone: Start: 11-06-2018 [facility] [employer] Work Phone: Start: 10-16-2018 [facility] [employer] Work Phone: Start: 08-01-2018 [facility] Work Phone: Start: 01-31-2018 Patient encounter procedure Soniya manning [facility] [employer] Work Phone: Start: 01-23-2018 Patient encounter procedure Soniya manning [facility] [employer] Work Phone: Start: 12-07-2017 Patient encounter Collin Herberth Rojelio acility:PCG Start: 09-14-2017 Patient encounter Ori Salomon Eddie ity:PCG Start: 09-14-2017 Patient encounter Ayde Jacobo Fa cility:PCG Start: 09-12-2017 End: 10-06-2017 Patient encounter Ayde Jacobo Facility:[facility]G Start: 07-25-2017 Patient encounter procedure Soniya manning [facility] [employer] Work Phone: Start: 06-24-2017 End: 06-25-2017 Emergency department patient visit Timothy Cohnveronica Facility:PCG Start: 06-19-2017 Patient encounter Collin Serrato acility:PCG Start: 03-29-2017 Patient encounter Timothy Lalitveronica Niño ility:PCG Start: 03-17-2017 End: 03-17-2017 Patient encounter Timothy Lalitveronica Facility:PCG Start: 01-20-2017 Patient encounter procedure SELF PAT IENT Facility:[facility] Start: 01-02-2017 Patient encounter Ori Buttslenard Morgan ity:PCG Start: 12-13-2016 Patient encounter Timothy Niño ility:PCG Patient encounter procedure Timothy Lalitre manning DO -[facility] Work Phone: End: 10-14-2022 Patient encounter procedure Ronit Doan Work Phone: DC-Pqdzgukqnf-Upqcu Work Phone: Procedures Date Procedure Procedure Detail Performing Clinician Start: 10-28-2024 Prothrombin time Ronit Doan DO Work Phone: Start: 10-21-2024 Lipid 1996 panel - S oneal or Plasma Ronit Doan DO Work Phone: Start: 08-22-2024 Duplex scan extracra nial art compl bi study Jaylon Kiser DO Work Phone: Start: 03-17-2025 Hemoglobin glycosylated a1c Ronit Doan DO Work Phone: Start: 07-17-2024 Lumpectomy of right breast Dr. Ronit Doan DO Work Phone: Start: 07-05-2024 Ultrasound elastogra phy first target lesion Ronit A Shawjoni DO Work Phone: Start: 07-05-2024 End: 07-05-2024 Diagnostic mammography computer-aided detcj bi Ronit Squiresjoni DO Work Phone: Start: 06-20-2024 Prothrombin time Ronit Doan DO Work Phone: Start: 04-23-2024 Prothrombin time Ronit Yaz Doan DO Work Phone: Start: 04-23-2024 Lipid 1996 panel - S oneal or Plasma [facility] Start: 01-29-2024 Prothrombin time Ronit Mukherjee Olimpia DO Work Phone: Start: 11-14-2023 Ecg routine ecg w/le ast 12 lds w/i&r Charlineizzy Hagen DO Work Phone: Start: 09-26-2023 Creatinine other source Ronit Doan DO Work Phone: Start: 09-26-2023 Drug screening oxycodone Ronit Mukherjee Olimpia DO Work Phone: Start: 09-26-2023 OOB INTERNAL TRACKING J mila Yaz Olimpia DO Work Phone: Start: 09-26-2023 OPIATE/OPIOID/BENZO PRESCRIPTION COMPLIANCE Ronit Mukherjee Olmipia DO Work Phone: Start: 08-22-2023 Duplex scan extracra nial art compl bi study Jaylon Kiser DO Work Phone: Start: 06-21-2023 Lipid 1996 panel - S oneal or Plasma [facility] Start: 06-21-2023 Mammography Par Remote Start: 04-24-2023 PROTIME-INR KIRA EZIG AVA Start: 04-24-2023 DISCHARGE PATIENT KIRA EZIGBO Start: 04-24-2023 WHEELED FOLDING WALKER KIRA CALDERONIGBO Start: 04-24-2023 Prothrombin time Washington Haider MD Work Phone: Start: 04-24-2023 ECG 12-LEAD KIRA MATHEW AVA Start: 04-24-2023 CBC panel - Blood by Automated count KIRA MATHEWBO Start: 04-24-2023 Comprehensive metabo lic 2000 panel - Serum or Plasma KIRA MATHEWBO Start: 04-24-2023 FULL CODE KIRA MATHEW AVA Start: 04-24-2023 INITIATE OBSERVATION STATUS KIRA MATHEWBO Start: 04-24-2023 MEASURE HEIGHT KIRA MARIOBO Start: 04-24-2023 OT EVAL AND TREAT KIRA MATHEWBO Start: 04-24-2023 PT EVAL AND TREAT KIRA MATHEWBO Start: 04-24-2023 REASON FOR NO VTE PROPHYLAXIS AT ADMISSION KIRA EZFABIANOBO Start: 04-24-2023 WEIGH PATIENT KIRA HUMPHREY GBO Start: 04-24-2023 Comprehensive metabo lic panel Kira Olvera MD Work Phone: Start: 08-16-2022 Lipid 1996 panel - S oneal or Plasma Ronit Doan DO Work Phone: Start: 08-11-2022 OPIATE/OPIOID/BENZO PRESCRIPTION COMPLIANCE Ronit Doan DO Work Phone: Start: 06-06-2022 Mammography Ronit brooks DO Work Phone: Start: 09-16-2021 Lipid 1996 panel - S oneal or Plasma Ronit Doan DO Work Phone: Start: 07-30-2021 Endarterectomy Ronit Doan Work Phone: Comment on above: L carotid with patch angioplasty; Start: 09-23-2020 Echocardiography Ryan Scales Work Phone: Start: 08-13-2019 Xray Chest 2 View PA + Lateral Timothy Palacio Start: 07-02-2019 Echocardiography Timothy Palacio Start: 07-23-2013 Colonoscopy Ronit brooks DO Work Phone: Biopsy of breast Shantel cui Comment on above: X2; X2 negative; Cardiac catheterization Shannon aldo Mukherjee Olimpia Work Phone: Comment on above: [03/09/2021, Dr. Cesar Hagen]: Moderate right CAD and diffuse distal LAD disease but no focal stenoses that warrant intervention noted at this time. LVEDP elevated. Patient will need additional diuretics.; Cardioversion Shantel levi Carotid endarterectomy Ronit Doan Work Phone: Comment on above: [08/01/2021, Dr. Flo Kiser]: Left carotid endarterectomy with patch angioplasty; Cataract surgery Shantel cui Comment on above: x2; Finger operation Ronit monteiro Work Phone: Comment on above: [03/01/2022, Dr. Chavo López]: Right middle finger A1 linn release; History of Pacemaker Placement Shantel Ansari Comment on above: 2009: [employer] Sens ia SEDR01 #[id number]; History of Ventricul ar Septal Defect Repair Shantel Ansari Comment on above: [facility]; Ligation of fallopian tube Dariela Doan Work Phone: Comment on above: at 27 y/o; Total abdominal hyst erectomy with bilateral salpingo-oophorectomy Ronit Doan Work Phone: Comment on above: at 32 y/o, she stopp ed taking estrogen at 50; Plan of Treatment Date Care Activity Detail Author Start: 09-13-2028 DTaP/Tdap/Td Vaccine s (2 - Td or Tdap) DTaP/Tdap/Td Vaccines (2 - Td or Tdap) [facility] Start: 09-13-2028 Urine microalbumin profile DTaP,Tdap,Td Vaccine (2 - Td or Tdap) [facility] Start: 08-17-2027 Lipid panel Lipid Panel [facility] Start: 10-29-2025 Medicare Annual Wellness Visit Medicare Annual Wellness Visit (AWV) [facility] Start: 10-21-2025 Creatinine measurement Creatinine Le rocio [facility] Start: 10-21-2025 Lipid panel Lipid Panel [facility] Start: 10-21-2025 Potassium measurement Potassium Leve l [facility] Start: 09-04-2025 End: 09-04-2025 Patient encounter procedure 09/04/2025 10:30 AM EDT Office Visit [facility] 2 [address] [facility] [address] [facility] [address] [place] [address] Jaylon Kiser DO [address] [facility] [address] [place] [address] [facility] 2 Start: 08-28-2025 Glaucoma screening Diabetes: R etinopathy Screening [facility] Start: 08-26-2025 End: 08-26-2025 Patient encounter procedure 08/26/2025 1:00 PM EDT Appointment [facility] [address] [place] [address] [facility] Start: 08-23-2025 End: 09-11-2026 US.doppler Carotid arteries - bilateral Vascular US Carotid Artery Duplex Bilateral Vascular Ultrasound Routine Carotid stenosis, bilateral Expected: 08/23/2025 (Approximate), Expires: 09/11/2026 [facility] Service Area Work Phone: Comment on above: Expected: 08/23/2025 (Approximate), Expires: 09/11/2026 Start: 07-05-2025 Screening for malignant neoplasm of breast Mammogram [facility] Start: 2025 RSV Vaccine (1 - 1-dose 75+ series) RSV Vaccine (1 - 1-dose 75+ series) [facility] Start: 04-24-2025 End: 04-24-2025 Patient encounter procedure 04/24/2025 1:00 PM EST [facility] [address] [place] [phone] Ronit Doan DO [address] [facility], [address] [place] [address] [facility] Start: 04-23-2025 Creatinine measurement Creatinine Le rocio [facility] Start: 04-23-2025 Lipid panel Lipid Panel [facility] Start: 04-23-2025 Potassium measurement Potassium Gerri l [facility] Start: 04-22-2025 Hemoglobin A1c measurement Diabetes: Hemoglobin A1C [facility] Start: 04-21-2025 End: 04-21-2025 Patient encounter procedure 04/21/2025 11:00 AM EST Office Visit [facility] [address] [place] [phone] Timothy Palacio DO [address] [place] [address] [facility] Start: 04-02-2025 End: 04-02-2025 Patient encounter procedure 04/02/2025 11:30 AM EST Appointment [facility] [employer] [facility] 3 [address] [place] [phone] [facility] [employer] [facility] 3 Start: 03-29-2025 Glaucoma screening Diabetes: R etinopathy Screening [facility] Start: 03-25-2025 End: 03-25-2025 Patient encounter procedure 03/25/2025 2:30 PM EST Office Visit [facility] [address] [place] [phone] Crispin Yanez MD PhD [address], [address] [place] [address] [facility] Start: 03-13-2025 End: 03-13-2025 Clinical Support 03/13/2025 1:30 PM EST Clinical Support [facility] [address] [place] [phone] [facility] Start: 02-17-2025 End: 02-17-2025 Clinical Support 02/17/2025 11:00 AM EDT Clinical Support [facility] [address] [place] [phone] [facility] Start: 01-28-2025 End: 01-28-2026 Basic metabolic 2000 panel - Serum or Plasma Basic metabolic panel Lab Routine Essential hypertension Type 2 diabetes mellitus with hypoglycemia without coma, without long-term current use of insulin Expected: 01/28/2025 (Approximate), Expires: 01/28/2026 [facility] Work Phone: Comment on above: Expected: 01/28/2025 (Approximate), Expires: 01/28/2026 Start: 01-28-2025 End: 01-28-2026 Hemoglobin A1c/Hemoglobin.total in Blood Hemoglobin A1C Lab Routine Essential hypertension Type 2 diabetes mellitus with hypoglycemia without coma, without long-term current use of insulin Expected: 01/28/2025 (Approximate), Expires: 01/28/2026 [facility] Service Area Work Phone: Comment on above: Expected: 01/28/2025 (Approximate), Expires: 01/28/2026 Start: 01-28-2025 End: 01-28-2025 Patient encounter procedure 01/28/2025 1:00 PM EDT Office Visit [facility] [address] [place] [phone] Ronit Doan DO [address] [facility], [place] [address] [facility] Start: 01-21-2025 Hemoglobin A1c measurement Diabetes: Hemoglobin A1C [facility] Start: 01-06-2025 COVID-19 Vaccine ( season) COVID-19 Vaccine ( season) [facility] Start: 01-06-2025 Influenza vaccination Influenza Vacc ine (#1) [facility] Start: 12-27-2024 Glaucoma screening Diabetes: R etinopathy Screening [facility] Start: 12-09-2024 End: 12-09-2024 Patient encounter procedure 12/09/2024 11:15 AM EDT Office Visit [facility] [employer] [facility] 3 [address] [facility] [employer] [facility] [address] [facility] [address] [place] [phone] Charline Hagen, [address] [employer] [facility] 3, [address] [place] [address] [facility] 3 Start: 11-27-2024 End: 11-27-2024 Clinical Support 11/27/2024 11:00 AM EDT Clinical Support [facility] [address] [place] [phone] [facility] Start: 11-20-2024 BP Controlled (<130/80) BP Controlled (<130/80) [facility] Start: 11-11-2024 End: 11-11-2024 Clinical Support 11/11/2024 1:30 PM EDT Clinical Support [facility] [address] [place] [phone] [facility] Start: 10-28-2024 End: 10-28-2024 Patient encounter procedure 10/28/2024 2:15 PM EDT Office Visit [facility] [address] [place] [phone] Ronit Doan DO [address] [facility], [address] [place] [address] [facility] Start: 10-22-2024 Hemoglobin A1c measurement Diabetes: Hemoglobin A1C [facility] Start: 09-12-2024 End: 09-12-2024 Clinical Support 09/12/2024 10:30 AM EDT Clinical Support [facility] [place] [phone] [facility] Start: 09-11-2024 End: 09-11-2024 Patient encounter procedure 09/11/2024 11:00 AM EDT Office Visit [facility] [employer] [facility] 2 [address] [facility] [address] [phone] Jaylon Kiser DO [address] [address] [facility] 2 Start: 08-29-2024 Glaucoma screening Diabetes: R etinopathy Screening [facility] Start: 08-22-2024 End: 08-22-2024 Patient encounter procedure 08/22/2024 10:30 AM EDT Appointment [facility] [address] [place] [phone] [facility] Start: 08-21-2024 End: 08-23-2025 US.doppler Carotid arteries - bilateral Vascular US carotid artery duplex bilateral Vascular Ultrasound Routine Carotid stenosis Carotid stenosis, bilateral Expected: 08/21/2024 (Approximate), Expires: 08/23/2025 [facility] Service Area Work Phone: Comment on above: Expected: 08/21/2024 (Approximate), Expires: 08/23/2025 Start: 07-25-2024 End: 07-25-2024 Clinical Support 07/25/2024 10:30 AM EDT Clinical Support [facility] [address] [facility] [address] [place] [phone] [facility] Start: 07-22-2024 End: 07-22-2025 CBC panel - Blood by Automated count CBC Lab Routine Medication monitoring encounter Expected: 07/22/2024 (Approximate), Expires: 07/22/2025 [facility] Work Phone: Comment on above: Expected: 07/22/2024 (Approximate), Expires: 07/22/2025 Start: 07-22-2024 End: 07-22-2025 Comprehensive metabolic 2000 panel - Serum or Plasma Comprehensive Metabolic Panel Lab Routine Hypercholesterolemia Essential hypertension Expected: 07/22/2024 (Approximate), Expires: 07/22/2025 [facility] Service Area Work Phone: Comment on above: Expected: 07/22/2024 (Approximate), Expires: 07/22/2025 Start: 07-22-2024 Hemoglobin A1c measurement Diabetes: Hemoglobin A1C [facility] Start: 07-22-2024 End: 07-22-2025 Hemoglobin A1c/Hemoglobin.total in Blood Hemoglobin A1C Lab Routine Type 2 diabetes mellitus with hypoglycemia without coma, without long-term current use of insulin Expected: 07/22/2024 (Approximate), Expires: 07/22/2025 [facility] Work Phone: Comment on above: Expected: 07/22/2024 (Approximate), Expires: 07/22/2025 Start: 07-22-2024 End: 07-22-2025 Lipid 1996 panel - Serum or Plasma Lipid Panel Lab Routine Hypercholesterolemia Essential hypertension Expected: 07/22/2024 (Approximate), Expires: 07/22/2025 [facility] Work Phone: Comment on above: Expected: 07/22/2024 (Approximate), Expires: 07/22/2025 Start: 07-17-[address] [facility] Start: 07-16-2024 End: 07-16-2024 Patient encounter procedure 07/16/2024 1:00 PM EDT Office Visit [facility] [address] [place] [phone] Ronit Doan DO [address] [facility], [address] [place] [address] [facility] Start: 07-04-2024 End: 07-04-2024 Clinical Support 07/04/2024 10:30 AM EST Clinical Support [facility] [address] [place] [address] [facility] Start: 06-21-2024 Creatinine measurement Creatinine Le rocio [facility] Start: 06-21-2024 Hepatitis B screening Urine Al bumin:Creatinine Ratio [facility] Start: 06-21-2024 Hepatitis B surface antibody level LDL Cholesterol [facility] Start: 06-21-2024 Lipid panel Lipid Panel [facility] Start: 06-21-2024 Potassium measurement Potassium Leve l [facility] Start: 06-21-2024 Screening for malignant neoplasm of breast [facility] Start: 06-21-2024 Urine screening for protein Diabetes: Urine Protein Screening [facility] Start: 06-20-2024 End: 06-20-2024 Clinical Support 06/20/2024 10:30 AM EST Clinical Support [facility] [address] [place] [phone] [facility] Start: 06-13-2024 BP Controlled (<130/80) BP Controlled (<130/80) [facility] Start: 06-11-2024 End: 06-11-2024 Patient encounter procedure 06/11/2024 2:00 PM EST Office Visit [facility] 3 [address] [facility] [address] [place] [phone] Charline Hagen, DO [address] [place] [address] [facility] 3 Start: 06-08-2024 Medicare Annual Wellness Visit Medicare Annual Wellness Visit (AWV) [facility] Start: 06-06-2024 Screening for osteoporosis Bone Density Scan [facility] Start: 05-24-2024 End: 05-24-2024 Patient encounter procedure 05/24/2024 10:45 AM EST Office Visit [facility] [address] [place] [phone] Timothy Palacio, DO [address], [address] [place] [address] [facility] Start: 05-21-2024 End: 05-21-2024 Clinical Support 05/21/2024 11:00 AM EST Clinical Support [facility] [address] [place] [phone] [facility] Start: 05-16-2024 End: 05-16-2024 Patient encounter procedure 05/16/2024 1:45 PM EST [facility] System [facility] 3 [address] [facility] [address] [address] [place] [phone] Charline Hagen DO [address] [facility] [address], [address] [place] [address] [facility] 3 Start: 05-08-2024 Advance Directive Discussion Advance Directive Discussion [facility] Start: 04-24-2024 Creatinine measurement Creatinine [facility] Start: 04-24-2024 Potassium measurement Potassium Leve l [facility] Start: 04-23-2024 End: 04-23-2024 Patient encounter procedure 04/23/2024 11:00 AM EST [facility] [address] [place] [phone] Ronit Doan DO [address] [facility], [address] [place] [address] [facility] Start: 04-07-2024 Creatinine measurement Creatinine [facility] Start: 04-07-2024 Echocardiography Echocardiogram [facility] Start: 04-07-2024 Potassium measurement Potassium Leve l [facility] Start: 02-16-2024 End: 02-16-2024 Anticoagulant drug monitoring 02/16/2024 11:30 AM EDT Anticoagulation - Warfarin Visit [facility] [address] [place] [phone] [facility] Start: 02-11-2024 Diabetes mellitus screening Diabetes Screening [facility] Start: 02-11-2024 Hemoglobin A1c measurement Diabetes: Hemoglobin A1C [facility] Start: 01-30-2024 End: 01-30-2024 Anticoagulant drug monitoring 01/30/2024 10:45 AM EDT Anticoagulation - Warfarin Visit [facility] Dare[address] [place] [phone] [facility] Start: 01-29-2024 End: 01-29-2024 Patient encounter procedure [facility] Start: 01-07-2024 Covid-19 Vaccine ( season) Covid-19 Vaccine () [facility] Start: 01-07-2024 Influenza vaccination Influenza Vacc ine (#1) [facility] Start: 12-20-2023 Hemoglobin A1c measurement HbA1C [facility] Start: 12-05-2023 End: 12-05-2023 Anticoagulant drug monitoring 12/05/2023 11:00 AM EDT Anticoagulation - Warfarin Visit [facility] [address] [place] [phone] [facility] Start: 11-14-2023 End: 11-14-2023 Patient encounter procedure 11/14/2023 1:00 PM EDT Office Visit [facility] 3 [address] [facility] 3 [address] [place] [phone] Charline Hagen, [address] [facility] 3, [address] [place], [place] [phone] [facility] 3 Start: 11-10-2023 End: 11-10-2023 Anticoagulant drug monitoring 11/10/2023 11:00 AM EDT Anticoagulation - Warfarin Visit [facility] [address] [place] [phone] [facility] Start: 11-08-2023 End: 11-08-2023 Patient encounter procedure 11/08/2023 8:45 AM EDT Office Visit [facility] [address] [place], [place] [phone] Héctor Fairchild MD [address] [place] [address] [place] [address] follow up Pain Management Comment on above: follow up Start: 10-17-2023 End: 06-11-2024 Anticoagulant drug monitoring 10/17/2023 10:30 AM EDT Anticoagulation - Warfarin Visit [facility] [address] [place] [phone] [facility] Start: 10-16-2023 End: 10-16-2023 Patient encounter procedure 10/16/2023 11:15 AM EDT Office Visit [facility] [address] [place] [phone] Timothy Palacio, DO [address] [facility] 3, [address] [place] [address] [facility] Start: 09-26-2023 End: 09-26-2023 Patient encounter procedure 09/26/2023 3:15 PM EDT Office Visit [facility] [address] [facility] 210 [place] [address] Ronit Doan DO [address] [facility], [address] [place] [address] [facility] Start: 09-26-2023 End: 09-25-2024 CBC panel - Blood by Automated count CBC Lab Routine Medication monitoring encounter Expected: 09/26/2023 (Approximate), Expires: 09/25/2024 [facility] Work Phone: Comment on above: Expected: 09/26/2023 (Approximate), Expires: 09/25/2024 Start: 09-26-2023 End: 09-25-2024 Comprehensive metabolic 2000 panel - Serum or Plasma Comprehensive Metabolic Panel Lab Routine Essential hypertension Expected: 09/26/2023 (Approximate), Expires: 09/25/2024 [facility] Work Phone: Comment on above: Expected: 09/26/2023 (Approximate), Expires: 09/25/2024 Start: 09-26-2023 End: 09-25-2024 Hemoglobin A1c/Hemoglobin.total in Blood Hemoglobin A1C Lab Routine Type 2 diabetes mellitus with hyperglycemia, without long-term current use of insulin (Multi) Expected: 09/26/2023 (Approximate), Expires: 09/25/2024 [facility] Service Area Work Phone: Comment on above: Expected: 09/26/2023 (Approximate), Expires: 09/25/2024 Start: 09-26-2023 End: 09-25-2024 Lipid 1996 panel - Serum or Plasma Lipid Panel Lab Routine Essential hypertension Expected: 09/26/2023 (Approximate), Expires: 09/25/2024 [facility] Work Phone: Comment on above: Expected: 09/26/2023 (Approximate), Expires: 09/25/2024 Start: 09-19-2023 Hemoglobin A1c measurement Diabetes: Hemoglobin A1C [facility] Start: 09-19-2023 End: 09-19-2023 Anticoagulant drug monitoring 09/19/2023 11:00 AM EDT Anticoagulation - Warfarin Visit [facility] [address] [facility] 140 [place] [phone] [facility] Start: 09-01-2023 End: 09-01-2023 Patient encounter procedure 09/01/2023 1:30 PM EDT Office Visit [facility] [address] [facility] 210 [place] [address] Ronit Doan DO [address] [facility], [facility] 210 [place] [address] [facility] Start: 08-24-2023 FUV, Provider: Jaylon Kiser, Status: Pen, Time: 11:20 AM FUV, Provider: Jaylon Kiser, Status: Mane, Time: 11:20 AM [facility] Work Phone: Start: 08-24-2023 End: 08-24-2023 Patient encounter procedure 08/24/2023 11:20 AM EDT Office Visit [place] [employer] [facility] [address] [place] [address] I Do Now I Don't [facility] 2 [address] [place] [address] Jaylon Kiser, DO [address] [facility] 202 [place] [address] [facility] 2 Start: 08-22-2023 End: 08-22-2023 Patient encounter procedure 08/22/2023 3:30 PM EDT Appointment [facility] [address] [facility] [employer] [facility] C[facility] 3 [address] [place] [phone] [facility] 3 Start: 08-22-2023 End: 08-22-2023 Anticoagulant drug monitoring 08/22/2023 11:15 AM EDT Anticoagulation - Warfarin Visit [facility] [address] [place] [address] [facility] Start: 08-17-2023 Creatinine measurement Creatinine Le rocio [facility] Start: 08-17-2023 Hepatitis B surface antibody level LDL Cholesterol [facility] Start: 08-17-2023 Lipid panel Lipid Panel [facility] Start: 08-17-2023 Potassium measurement Potassium Leve l [facility] Start: 08-15-2023 End: 08-15-2023 Patient encounter procedure 08/15/2023 1:00 PM EDT Appointment [facility] [address] [facility] [employer] [facility] 3 [address] [place] [phone] [facility] 3 Start: 08-15-2023 End: 08-15-2023 Anticoagulant drug monitoring 08/15/2023 10:00 AM EDT Anticoagulation - Warfarin Visit [facility] [address] [place] [address] [facility] Start: 08-14-2023 End: 08-14-2023 Patient encounter procedure 08/14/2023 11:30 AM EDT Appointment [facility] [address] [place] [address] [facility] Start: 08-12-2023 Hemoglobin A1c measurement HbA1C [facility] Start: 07-24-2023 Screening for malignant neoplasm of colon [facility] Start: 07-21-2023 Glaucoma screening Diabetes: R etinopathy Screening [facility] Start: 07-21-2023 Ophthalmic examinati on and evaluation Diabetes: Retinopathy Screening [facility] Start: 07-19-2023 End: 07-19-2023 Anticoagulant drug monitoring 07/19/2023 11:00 AM EDT Anticoagulation - Warfarin Visit [facility] [address] [place] [address] [facility] Start: 06-21-2023 End: 06-21-2023 Patient encounter procedure 06/21/2023 8:30 AM EST Appointment [facility] [address] [place] [address] [facility] Start: 06-20-2023 End: 06-20-2023 Anticoagulant drug monitoring 06/20/2023 11:00 AM EST Anticoagulation - Warfarin Visit [facility] [address] [place] [address] [facility] Start: 06-07-2023 End: 06-07-2024 Comprehensive metabolic 2000 panel - Serum or Plasma Comprehensive Metabolic Panel Lab Routine Essential hypertension Expected: 06/07/2023 (Approximate), Expires: 06/07/2024 [facility] Work Phone: Comment on above: Expected: 06/07/2023 (Approximate), Expires: 06/07/2024 Start: 06-07-2023 End: 06-07-2024 Creatinine [Mass/volume] in Urine Creatinine, Urine Random Lab Routine Type 2 diabetes mellitus with hyperglycemia, without long-term current use of insulin ([facility]) Expected: 06/07/2023 (Approximate), Expires: 06/07/2024 [facility] Work Phone: Comment on above: Expected: 06/07/2023 (Approximate), Expires: 06/07/2024 Start: 06-07-2023 End: 08-05-2024 DBT Breast - bilateral BI mammo bilateral screening tomosynthesis Imaging Routine Visit for screening mammogram Expected: 06/07/2023, Expires: 08/05/2024 [facility] Work Phone: Comment on above: Expected: 06/07/2023 , Expires: 08/05/2024 Start: 06-07-2023 End: 06-07-2024 Hemoglobin A1c/Hemoglobin.total in Blood Hemoglobin A1C Lab Routine Type 2 diabetes mellitus with hyperglycemia, without long-term current use of insulin (CMS/HCC) Expected: 06/07/2023 (Approximate), Expires: 06/07/2024 [facility] Service Area Work Phone: Comment on above: Expected: 06/07/2023 (Approximate), Expires: 06/07/2024 Start: 06-07-2023 End: 06-07-2024 Lipid 1996 panel - Serum or Plasma Lipid Panel Lab Routine Essential hypertension Expected: 06/07/2023 (Approximate), Expires: 06/07/2024 [facility] Work Phone: Comment on above: Expected: 06/07/2023 (Approximate), Expires: 06/07/2024 Start: 06-07-2023 End: 06-07-2024 Microalbumin/Creatinin e [Mass Ratio] in Urine Albumin , Urine Random Lab Routine Type 2 diabetes mellitus with hyperglycemia, without long-term current use of insulin (CMS/HCC) Expected: 06/07/2023 (Approximate), Expires: 06/07/2024 [facility] Work Phone: Comment on above: Expected: 06/07/2023 (Approximate), Expires: 06/07/2024 Start: 06-07-2023 End: 06-07-2023 Patient encounter procedure 06/07/2023 1:30 PM EST Office Visit [facility] [address] [place] [phone] Ronit Doan DO [address] [facility], [address] [place] [address] [facility] Start: 06-06-2023 Screening for malignant neoplasm of breast Mammogram [facility] Start: 06-02-2023 End: 06-02-2023 Anticoagulant drug monitoring 06/02/2023 11:00 AM EST Anticoagulation - Warfarin Visit [facility] [address] [place] [phone] [facility] Start: 05-23-2023 End: 05-23-2023 Anticoagulant drug monitoring 05/23/2023 10:15 AM EST Anticoagulation - Warfarin Visit [facility] [address] [place] [phone] [facility] Start: 05-16-2023 End: 05-16-2023 Patient encounter procedure 05/16/2023 2:45 PM EST Office Visit [employer] [facility] [address] [facility] [address] [place] [phone] Charline Hagen DO [address] [employer] [address], [address] [place], [place] [phone] [facility] 3 Start: 2023 Hemoglobin A1c measurement Diabetes: Hemoglobin A1C [facility] Start: 05-08-2023 Advance Directive Discussion Advance Directive Discussion [facility] Start: 05-08-2023 Behavioral Health Screening Behavioral Health Screening [facility] Start: 05-08-2023 Depression Assessment Depression Ass essment [facility] Start: 04-26-2023 End: 04-26-2023 Anticoagulant drug monitoring 04/26/2023 1:00 PM EST Anticoagulation - Warfarin Visit [facility] [address] [place] [phone] [facility] Start: 04-24-2023 End: 04-24-2023 Patient encounter procedure 04/24/2023 10:15 AM EST Office Visit [employer] [facility] [address] [facility] [address] [place] [phone] Charline Hagen S, DO [address] [employer] [address], [facility] 301 [place] [address] [facility] 3 Start: 04-19-2023 End: 04-19-2023 Anticoagulant drug monitoring 04/19/2023 3:30 PM EST Anticoagulation - Warfarin Visit [facility] [address] [place] [phone] [facility] Start: 04-19-2023 End: 04-19-2023 Patient encounter procedure 04/19/2023 2:45 PM EST Office Visit [facility] [address] [place] [address] Timothy Palacio, DO [address] [employer] [facility] 3, [address] [address] [facility] Start: 04-17-2023 EPV, Provider: Charline Hagen, Status: Pen, Time: 10:45 AM EPV, Provider: Charline Hagen, Status: Pen, Time: 10:45 AM [facility] Work Phone: Start: 04-17-2023 End: 04-17-2023 Patient encounter procedure 04/17/2023 10:45 AM EST Office Visit [place] [address] [address] [facility] [address] [phone] Charline Hagen S, DO [address] [employer] [facility] 3, [address] [address] [place] [address] Start: 04-15-2023 Medicare Annual Wellness Visit Medicare Annual Wellness Visit (AWV) [facility] Start: 04-07-2023 End: 04-07-2023 Patient encounter procedure 04/07/2023 11:00 AM EST Appointment [facility] [address] [place] [phone] [facility] Start: 03-29-2023 End: 03-29-2023 Anticoagulant drug monitoring 03/29/2023 10:30 AM EST Anticoagulation - Warfarin Visit [facility] [address] [place] [phone] [facility] Start: 02-17-2023 End: 02-17-2023 Patient encounter procedure 02/17/2023 1:30 PM EDT Office Visit [facility] [address] [place] [address] Ronit Doan DO [address] [facility], [address] [place] [address] [facility] Start: 02-01-2023 Hemoglobin A1c measurement Diabetes: Hemoglobin A1C [facility] Start: 02-01-2023 Patient encounter procedure FUVCOAG, Provider: [facility] [place], Status: Pen, Time: 10:30 AM Antico[facility] Work Phone: Start: 01-30-2023 FUV, Provider: Timothy Palacio, Status: Pen, Time: 10:45 AM FUV, Provider: Timothy Palacio, Status: Pen, Time: 10:45 AM [facility] 202 Work Phone: Start: 01-18-2023 Patient encounter procedure FUVCOAG, Provider: [facility], Status: Pen, Time: 2:15 PM Antico[facility] Work Phone: Start: 01-06-2023 Covid-19 Vaccine ( season) Covid-19 Vaccine ( season) [facility] Start: 01-06-2023 Influenza vaccination [facility] Start: 12-28-2022 Patient encounter procedure FUVCOAG, Provider: JAZLYN [facility], Status: Pen, Time: 10:45 AM [facility] Work Phone: Start: 12-20-2022 Patient encounter procedure FUOAG, Provider: JAZLYN [facility]ARDIO COAG [facility], Status: Pen, Time: 10:45 AM [facility] Work Phone: Start: 11-15-2022 Hemoglobin A1c measurement Diabetes: Hemoglobin A1C [facility] Start: 11-15-2022 Patient encounter procedure LUKEOAG, Provider: [facility]N [facility], Status: Pen, Time: 10:30 AM XT-[facility]mm[facility] Work Phone: Start: 11-11-2022 End: 11-12-2023 Hemoglobin A1c/Hemoglobin.total in Blood Hemoglobin A1c Lab Routine Elevated glucose Expected: 11/11/2022 (Approximate), Expires: 11/12/2023 [facility] Service Area Work Phone: Comment on above: Expected: 11/11/2022 (Approximate), Expires: 11/12/2023 Start: 11-11-2022 End: 11-11-2022 Patient encounter procedure 11/11/2022 1:30 PM EDT Office Visit [facility] [address] [phone] Ronit Doan DO [address] [facility], [address] [address] [facility] Start: 10-26-2022 PACVIRTUAL, Provider : PARMA MAC3 REMOTE PACEMAKER,[id number], Status: Pen, Time: 7:30 AM PACVIRTUAL, Provider: PARMA MAC3 REMOTE PACEMAKER,[id number], Status: Pen, Time: 7:30 AM [facility] Work Phone: Start: 10-14-2022 EPV, Provider: Charline Hagen, Status: Pen, Time: 11:00 AM EPV, Provider: Charline Hagen, Status: Mane, Time: 11:00 AM [facility] Work Phone: Start: 10-11-2022 Patient encounter procedure FUVCOAG, Provider: JAZLYN CARDIO COAG ELIUD LI, Status: Mane, Time: 1:45 PM [facility]tico[facility] Work Phone: Start: 10-04-2022 End: 10-05-2023 Hemoglobin A1c/Hemoglobin.total in Blood Hemoglobin A1C Lab Routine Prediabetes Expected: 10/04/2022 (Approximate), Expires: 10/05/2023 [facility] Service Area Work Phone: Comment on above: Expected: 10/04/2022 (Approximate), Expires: 10/05/2023 Start: 10-04-2022 End: 10-05-2023 TSH with reflex to Free T4 if abnormal TSH with reflex to Free T4 if abnormal Lab Routine Prediabetes Expected: 10/04/2022 (Approximate), Expires: 10/05/2023 [facility] Work Phone: Comment on above: Expected: 10/04/2022 (Approximate), Expires: 10/05/2023 Start: 10-04-2022 EPV, Provider: Charline Hagen, Status: Mane, Time: 10:45 AM EPV, Provider: Charline Hagen, Status: Mane, Time: 10:45 AM [facility] Work Phone: Start: 09-21-2022 Patient encounter procedure FUVCOAG, Provider: JAZLYN CARDIO COAG ELIUD LI, Status: Pen, Time: 11:30 AM -[facility] Work Phone: Start: 09-16-2022 Creatinine measurement Creatinine Le rocio [facility] Start: 09-16-2022 Lipid panel Lipid Panel [facility] Start: 09-16-2022 Potassium measurement Potassium Leve l [facility] Start: 09-15-2022 FUV, Provider: Jaylon Kiser, Status: Pen, Time: 10:40 AM FUV, Provider: Jaylon Kiser, Status: Pen, Time: 10:40 AM Anticoagulation Monitoring [facility] Work Phone: Start: 09-14-2022 Patient encounter procedure FUVCOAG, Provider: JAZLYN CARDIO COAG [facility], Status: Pen, Time: 11:30 AM Anticoagulation Monitoring [facility] Work Phone: Start: 09-06-2022 Patient encounter procedure FUVCOAG, Provider: [facility] CARDIO [facility], Status: Pen, Time: 10:45 AM Anticoagulation Monitoring [facility] Work Phone: Start: 08-30-2022 Patient encounter procedure FUVCOAG, Provider: [facility]LYN [facility], Status: Pen, Time: 10:45 AM Anticoagulation Monitoring [facility] Work Phone: Start: 08-19-2022 Patient encounter procedure FUVCOAG, Provider: [facility] CARDIO [facility], Status: Pen, Time: 10:30 AM Anticoagulation Monitoring [facility] Work Phone: Start: 08-18-2022 FUV, Provider: Jaylon Kiser, Status: Pen, Time: 11:10 AM FUV, Provider: Jaylon Kiser, Status: Pen, Time: 11:10 AM [facility] 202 Work Phone: Start: 08-11-2022 End: 08-12-2023 Hemoglobin A1c/Hemoglobin.total in Blood Hemoglobin A1c Lab Routine Hyperglycemia Expected: 08/11/2022 (Approximate), Expires: 08/12/2023 [facility] Service Area Work Phone: Comment on above: Expected: 08/11/2022 (Approximate), Expires: 08/12/2023 Start: 08-11-2022 End: 08-12-2023 Opiate/Opioid/Benzo Extended Prescription Compliance Opiate/Opioid/Benzo Extended Prescription Compliance Lab Routine Medication monitoring encounter Expected: 08/11/2022 (Approximate), Expires: 08/12/2023 [facility] Work Phone: Comment on above: Expected: 08/11/2022 (Approximate), Expires: 08/12/2023 Start: 08-11-2022 FUV, Provider: Ronit Doan, Status: Pen, Time: 9:30 AM FUV, Provider: Ronit Doan, Status: Pen, Time: 9:30 AM -[facility] [employer] Work Phone: Start: 08-08-2022 Patient encounter procedure CAROTID, Provider: JAYA VAS LAB ROOM 2 OUTPATIENT,MG VASC, Status: Pen, Time: 11:00 AM BA-Hwllfcnusy-[facility]emrl Work Phone: Start: 08-04-2022 Patient encounter procedure CAROTID, Provider: JAYA VASC LAB ROOM 2 OUTPATIENT,MG VASC, Status: Pen, Time: 11:00 AM -[facility] [employer] Work Phone: Start: 07-06-2022 Hemoglobin A1c measurement Diabetes: Hemoglobin A1C [facility] Start: 05-08-2022 Advance Directive Discussion Advance Directive Discussion [facility] Start: 05-08-2022 Depression Assessment Depression Ass essment [facility] Start: 04-14-2022 Patient encounter procedure MCRANNUAL, Provider: Ronit Doan, Status: Pen, Time: 9:30 AM -[facility] [employer] Work Phone: Start: 03-21-2022 EPV, Provider: Charline Hagen, Status: Pen, Time: 11:00 AM EPV, Provider: Charline Hagen, Status: Pen, Time: 11:00 AM CG-Ufujcoihtm-Mbdko Work Phone: Start: 03-09-2022 POV, Provider: Yg López, Status: Pen, Time: 1:00 PM POV, Provider: Yg López, Status: Pen, Time: 1:00 PM -[facility] [employer] Work Phone: Start: 03-08-2022 Echocardiography Echocardiogram [facility] Start: 03-01-2022 [facility], Provider: Yg López, Status: Pen, Time: 8:00 AM [facility], Provider: Yg López, Status: Pen, Time: 8:00 AM [facility] Work Phone: Start: 02-17-2022 FUV, Provider: Jaylon Kiser, Status: Pen, Time: 11:00 AM FUV, Provider: Jaylon Kiser, Status: Pen, Time: 11:00 AM [facility] 202 Work Phone: Start: 02-07-2022 FUV, Provider: Timothy Palacio, Status: Pen, Time: 9:30 AM FUV, Provider: Timothy Palacio, Status: Pen, Time: 9:30 AM LK-Hfsgbfoofw-Lqywvm [facility] Work Phone: Start: 02-07-2022 Patient encounter procedure Outpatient [facility] [place] [id number] [place] [address] Start: 07-Feb-2022 9:30 Timothy Palacio [facility] [place] Start: 02-01-2022 CAROTID, Provider: Jerome ALFONSO 3 MAC 03 VASCULAR LAB,MG VASC, Status: Pen, Time: 10:30 AM CAROTID, Provider: JAYA 3 MAC 03 VASCULAR LAB,MG VASC, Status: Pen, Time: 10:30 AM MI-Enxdgwnbku-Tyjxo Work Phone: Start: 01-17-2022 FUV, Provider: Ronit Doan, Status: Pen, Time: 9:30 AM FUV, Provider: Ronit Doan, Status: Pen, Time: 9:30 AM RV-Obvdwmkcaq-Ltpyp Work Phone: Start: 11-25-2021 Patient encounter procedure [facility] Start: 09-23-2021 Echocardiography Echocardiogram [facility] Start: 09-21-2021 EPV, Provider: Charline Hagen, Status: Pen, Time: 2:30 PM EPV, Provider: Charline Hagen, Status: Pen, Time: 2:30 PM KQ-Ocbdenunrp-Tlges Work Phone: Start: 09-21-2021 Patient encounter procedure [facility] Cardiology [place] Start: 09-20-2021 FUV, Provider: Ronit Doan, Status: Pen, Time: 9:45 AM FUV, Provider: Ronit Doan, Status: Pen, Time: 9:45 AM [facility] Work Phone: Start: 09-20-2021 Patient encounter procedure [facility] Medicine [place] Start: 07-30-2021 End: 07-31-2022 Albuterol 2.5 mg - Ipratropium 0.5 mg/ 3 mL Neb Soln 3 mL Inhalation Every 4 Hours ; (DUONEB)DOSE = 3 mL Inhalation Every 2 Hours via Nebulizer, PRN Wheezing Start: 30-Jul-2021 End: 30-Jul-2022 Ordered: 30-Jul-2021 Jaylon Ksier [facility] Other Phone (unformatted): [phone] Start: 07-16-2021 FUV, Provider: Ronit Doan, Status: Pen, Time: 1:30 PM FUV, Provider: Ronit Doan, Status: Pen, Time: 1:30 PM [facility] Work Phone: Start: 07-15-2021 NPV, Provider: Jaylon Kiser, Status: Pen, Time: 9:40 AM NPV, Provider: Jaylon Ksier, Status: Pen, Time: 9:40 AM [facility] Work Phone: Start: 06-30-2021 FUV, Provider: Timothy Palacio, Status: Pen, Time: 1:45 PM FUV, Provider: Timothy Palacio, Status: Pen, Time: 1:45 PM [facility] Work Phone: Start: 06-28-2021 FUV, Provider: Timothy Palacio, Status: Pen, Time: 10:00 AM FUV, Provider: Timothy Palacio, Status: Pen, Time: 10:00 AM ZU-Knxiwhzdor-Ifffph [address] [place] Work Phone: Start: 06-24-2021 ECHO, Provider: MEDI NA HHVI,MG CARD, Status: Pen, Time: 9:00 AM ECHO, Provider: DEBORA HHVI,MG CARD, Status: Pen, Time: 9:00 AM GK-Iohtfqcolw-Pbaikv [address] [place] Work Phone: Start: 06-21-2021 FUV, Provider: Ronit Doan, Status: Pen, Time: 10:15 AM FUV, Provider: Ronit Doan, Status: Pen, Time: 10:15 AM [facility] Work Phone: Start: 06-10-2021 NPV, Provider: Jaylon Kiser, Status: Pen, Time: 10:10 AM NPV, Provider: Jaylon Kiser, Status: Pen, Time: 10:10 AM [facility] Work Phone: Start: 05-11-2021 CAROTID, Provider: Jerome ALFONSO 3 MAC 03 VASCULAR LAB,MG VASC, Status: Pen, Time: 11:30 AM CAROTID, Provider: PMC 3 MAC 03 VASCULAR LAB,MG VASC, Status: Pen, Time: 11:30 AM QQ-Hgswsgbsph-Eoidf Work Phone: Start: 03-24-2021 FUVHOSP, Provider: Charline Hagen, Status: Pen, Time: 2:30 PM FUVHOSP, Provider: Charline Hagen, Status: Pen, Time: 2:30 PM [facility] Work Phone: Start: 03-18-2021 FUV, Provider: Ronit Doan, Status: Pen, Time: 1:30 PM FUV, Provider: Ronit Doan, Status: Pen, Time: 1:30 PM [facility] Work Phone: Start: 02-01-2021 Nursing evaluation o f patient and report FLUSHOT, Provider: NURSE VISIT,IM ASSOC, Status: Pen, Time: 10:00 AM [facility] Work Phone: Start: 01-15-2021 FUV, Provider: Timothy Palacio, Status: Pen, Time: 10:30 AM FUV, Provider: Timothy Palacio, Status: Pen, Time: 10:30 AM RE-Wuojhzapna-Lukth Work Phone: Start: 11-17-2020 NPV, Provider: Ronit Doan, Status: Pen, Time: 2:00 PM NPV, Provider: Ronit Doan, Status: Pen, Time: 2:00 PM [facility] Work Phone: Start: 11-10-2020 PACVIRTUAL, Provider : PARMA TELEPHONIC PACEMAKER,MP CARD, Status: Pen, Time: 1:15 PM PACVIRTUAL, Provider: PARMA TELEPHONIC PACEMAKER,MP CARD, Status: Pen, Time: 1:15 PM XE-Ranjhkvwuv-Oyojz Work Phone: Start: 10-05-2020 COVID-19 Vaccine (3 - Booster for Pfizer series) COVID-19 Vaccine (3 - Booster for Pfizer series) [facility] Start: 10-05-2020 COVID-19 Vaccine (3 - Pfizer series) COVID-19 Vaccine (3 - Pfizer series) [facility] Start: 09-07-2020 COVID-19 Vaccine (3 - Pfizer risk series) COVID-19 Vaccine (3 - Pfizer risk series) [facility] Start: 09-03-2020 Basic metabolic 1998 panel - Serum or Plasma Basic Metabolic Panel MP[facility] Work Phone: Start: 09-03-2020 Xray Chest 2 View PA + Lateral Xray Chest 2 View PA + Lateral [facility] Work Phone: Start: 09-03-2020 Xray Chest 2 V iew PA + Lateral [facility] Work Phone: Start: 01-21-2020 HbA1c (Bld) [Mass fraction] Hemoglobin A1C [facility] Work Phone: Start: 10-10-2019 Annual PCP Team Chronic Disease Visit Annual PCP Team Chronic Disease Visit [facility] Start: 09-25-2019 Screening for malignant neoplasm of breast Mammogram Screening [facility] Start: 06-14-2019 Hepatitis B screening Urine Al bumin:Creatinine Ratio [facility] Start: 01-03-2019 BP Controlled (<130/80) BP Controlled (<130/80) [facility] Start: 01-03-2019 Diabetic foot examination Diabetic Foot Exam [facility] Start: 09-21-2017 Glaucoma screening Dilated Retinal E xam [facility] Start: 2015 Screening for osteoporosis Bone Density Screening [facility] Start: 07-23-2014 Screening for malignant neoplasm of colon [facility] Start: 2010 RSV High Risk: (Elderly (60+) or Population) (1 - Risk 60-74 years 1-dose series) RSV High Risk: (Elderly (60+) or Population) (1 - Risk 60-74 years 1-dose series) [facility] Start: 2010 RSV patient s and/or patients aged 60+ years (1 - 1-dose 60+ series) RSV patients and/or patients aged 60+ years (1 - 1-dose 60+ series) [facility] Start: 2010 RSV Vaccine (1 - 1-dose 60+ series) RSV Vaccine (1 - 1-dose 60+ series) [facility] Start: 2000 Shingrix Vaccine (1 of 2) Shingrix Vaccine (1 of 2) [facility] Start: 2000 Zoster Vaccines (1 o f 2) Zoster Vaccines (1 of 2) [facility] Start: 1995 Screening for malignant neoplasm of colon [facility] Start: 1969 Urine screening for protein Diabetes: Urine Protein Screening [facility] Start: 1969 Zoster Vaccines (1 o f 2) Zoster Vaccines (1 of 2) [facility] Start: 1968 Annual PCP Team Chronic Disease Visit Annual PCP Team Chronic Disease Visit [facility] Start: 1968 Depression Screening Depression Scre ening [facility] Start: 1968 Hepatitis C screening Hepatitis C Sc anjel [facility] Start: 1960 Diabetic foot examination Diabetes: Foot Exam [facility] Start: 1960 Ophthalmic examinati on and evaluation Diabetes: Retinopathy Screening [facility] Start: 1955 COVID-19 Vaccine (#1) COVID-19 Vacci ne (#1) [facility] Start: 1951 MMR Vaccines (1 of 1 - Standard series) MMR Vaccines (1 of 1 - Standard series) [facility] Start: 1950 Medicare Annual Wellness Visit Medicare Annual Wellness Visit (AWV) [facility] Start: 1950 Screening for malignant neoplasm of colon [facility] End: 04-19-2023 Cardiac device check - In Clinic [facility] Work Phone: Comment on above: Once for 1 Occurrenc es starting 04/19/2023 until 04/19/2023 End: 08-15-2023 Cardiac device check - In Clinic [facility] Work Phone: Comment on above: Once for 1 Occurrenc es starting 08/15/2023 until 08/15/2023 End: 05-15-2024 Cardiac device check - In Clinic [facility] Work Phone: Comment on above: Once for 1 Occurrenc es starting 05/15/2024 until 05/15/2024 End: 10-23-2023 Cardiac Device Check - Remote [facility] Work Phone: Comment on above: Once for 1 Occurrenc es starting 10/23/2023 until 10/23/2023 End: 02-13-2024 Cardiac Device Check - Remote [facility] Work Phone: Comment on above: Once for 1 Occurrenc es starting 02/13/2024 until 02/13/2024 End: 08-13-2024 Cardiac Device Check - Remote [facility] Work Phone: Comment on above: Once for 1 Occurrenc es starting 08/13/2024 until 08/13/2024 End: 11-12-2024 Cardiac device check - Remote [facility] Work Phone: Comment on above: Once for 1 Occurrenc es starting 11/12/2024 until 11/12/2024 End: 02-10-2025 Cardiac device check - Remote [facility] Work Phone: Comment on above: Once for 1 Occurrenc es starting 02/10/2025 until 02/10/2025 End: 02-17-2025 Cardiac device check - Remote [facility] Work Phone: Comment on above: Once for 1 Occurrenc es starting 02/17/2025 until 02/17/2025 End: 03-21-2023 Cardiac device check - Remote alert [facility] Work Phone: Comment on above: Once for 1 Occurrenc es starting 03/21/2023 until 03/21/2023 End: 08-14-2023 Cardiac device check - Remote alert [facility] Work Phone: Comment on above: Once for 1 Occurrenc es starting 08/14/2023 until 08/14/2023 End: 06-21-2023 DBT Breast - bilateral [facility] Work Phone: Comment on above: Once for 1 Occurrenc es starting 06/21/2023 until 06/21/2023 Electrocardiogram, 12-lead PRN ACS symptoms Electrocardiogram, 12-lead PRN ACS symptoms ECG Routine As needed until discontinued starting 04/24/2023 [facility] Work Phone: Comment on above: As needed until disc ontinued starting 04/24/2023 History of coronary artery bypass grafting S/P CABG (coronary artery bypass graft) [facility] Other Phone (unformatted): [phone] History of repair of mitral valve History of mitral valve repair [facility] Other Phone (unformatted): [phone] End: 07-12-2024 MR Lumbar spine WO contrast MRI LUMBAR SPINE WO IVCON Radiology Routine Spinal stenosis of lumbar region with neurogenic claudication 1 Occurrences starting 06/13/2023 until 07/12/2024 [facility] Work Phone: Comment on above: 1 Occurrences starti ng 06/13/2023 until 07/12/2024 OPIATE/OPIOID/BENZO PRESCRIPTION COMPLIANCE OPIATE/OPIOID/BENZO PRESCRIPTION COMPLIANCE Lab Routine 08/11/2022 10:13 AM EDT [facility] Work Phone[facility] End: 04-24-2023 Respiratory care eval and treat Respiratory care eval and treat Respiratory Care Routine Once for 1 Occurrences starting 04/24/2023 until 04/24/2023 [facility] Work Phone: Comment on above: Once for 1 Occurrenc es starting 04/24/2023 until 04/24/2023 End: 04-07-2023 US Heart Transthoracic [facility] Work Phone: Comment on above: Once for 1 Occurrenc es starting 04/07/2023 until 04/07/2023 US.doppler Carotid arteries - bilateral Vascular US carotid artery duplex bilateral Vascular Ultrasound Routine Carotid stenosis Carotid stenosis, bilateral 08/22/2023 4:39 PM EDT [facility] Work Phone: US.doppler Carotid arteries - bilateral Vascular US carotid artery duplex bilateral Vascular Ultrasound Routine Carotid stenosis Carotid stenosis, bilateral Occlusion and stenosis of left carotid artery 08/22/2024 11:51 AM EDT [facility] Work Phone: End: 08-30-2024 XR Chest PA and Lateral XR CHEST 2V FRONTAL/LAT Radiology Routine AICD (automatic cardioverter/defibrillator ) present 1 Occurrences starting 08/01/2023 until 08/30/2024 [facility] Work Phone: Comment on above: 1 Occurrences starti ng 08/01/2023 until 08/30/2024 [facility] Work Phone: [facility] NEGATED: Highlighted row has been ruled out! [facility] Immunizations Immunization Date Immunization Notes Care Provider Fa cili 02-13-2024 influenza, seasonal, injectable, preservative free Ronit Doan DO Work Phone: [facility] Work Phone: 02-13-2024 influenza virus vacc ine, unspecified formulation Par Remote [facility] Work Phone: 01-26-2023 influenza, injectabl e, quadrivalent, preservative free Ronit Doan DO Work Phone: [facility] Work Phone: 01-26-2023 influenza virus vacc ine, unspecified formulation Charline Hagen DO Work Phone: [facility] Work Phone: 01-17-2022 influenza, injectabl e, quadrivalent, preservative free; Translations: [Flulaval Quadrivalent 0.5 ML Intramuscular Suspension Prefilled Syringe] Ronit Doan [facility] Phone[facility] Work Phone: Comment on above: Series: 01-17-2022 influenza virus vacc ine, unspecified formulation Ronit Squiresjoni DO Work Phone: [facility] Work Phone: 02-01-2021 influenza, injectabl e, quadrivalent, contains preservative; Translations: [Flulaval Quadrivalent Intramuscular Suspension] Ronit Doan Work Phone: [facility] Work Phone: Comment on above: Series: 02-01-2021 influenza virus vacc ine, unspecified formulation Ronit Doan DO Work Phone: [facility] Work Phone: 08-10-2020 Pfizer-BioNTech COVI D-19 Vacc 30 MCG/0.3ML Intramuscular Suspension Timothy Palacio [facility] Work Phone: Comment on above: Series: 07-21-2020 Pfizer-BioNTech COVI D-19 Vacc 30 MCG/0.3ML Intramuscular Suspension Timothy Ramicone DO -[facility] Work Phone: Comment on above: Series: 01-21-2020 influenza, injectabl e, quadrivalent, preservative free; Translations: [Fluzone Quadrivalent 0.5 ML Intramuscular Suspension] Shelley Fajardo [facility] Work Phone: Comment on above: Series: 01-21-2020 pneumococcal polysaccharide vaccine, 23 valent; Translations: [Pneumococcal polysaccharide vaccine, 23 valent] Shelley Fajardo [facility] Work Phone: Comment on above: Series: 02-12-2019 influenza, injectabl e, quadrivalent, preservative free; Translations: [Fluzone Quadrivalent 0.5 ML Intramuscular Suspension Prefilled Syringe] [facility] Work Phone: Comment on above: Series: 09-13-2018 tetanus toxoid, redu fuentes diphtheria toxoid, and acellular pertussis vaccine, adsorbed Ronit Doan Work Phone: [facility] 07-09-2018 pneumococcal conjuga te vaccine, 13 valent Ronit Doan DO Work Phone: [facility] Work Phone: 07-06-2018 pneumococcal conjuga te vaccine, 13 valent Katharine Scales [facility] Work Phone: Comment on above: Series: 02-05-2018 influenza virus vacc ine, unspecified formulation Katharine Scales Work Phone: [facility]otv[facility]Siqzl Work Phone: Comment on above: Series: 02-05-2018 influenza, seasonal, injectable [facility] Work Phone: 02-02-2018 influenza, high dose seasonal, preservative-free Ronit Doan DO Work Phone: [facility] Work Phone: 01-18-2017 tuberculin skin test ; purified protein derivative solution, intradermal Ronit Doan DO Work Phone: [facility] Work Phone: 01-10-2017 influenza, high dose seasonal, preservative-free Ronit Doan Work Phone: [facility] Work Phone: 12-14-2015 influenza, high dose seasonal, preservative-free Ronit Doan Work Phone: [facility] Work Phone: Payers Date Payer Category Payer Self-pay 2024 Medicare [id number] 2022 Medicare supplementa l policy (as second payer) [employer] [id number] 2022 Unknown 2017 Unknown [id number] 2016 Unknown [id number] 2015 Medicare [id number] 2008 Medicare [id number]. 1.13.647. [id number] 2008 Private Health Insurance 1.2 .840.754822.1.13.159. 2.7.3.882049.315 1950 Unknown [id number] 2.16.840.1.328194.3.579. 2.732 1950 Unknown [id number] 2.16.840.1.950406.3.579. 2.1046 1950 Unknown [id number] 2.16.840.1.243033.3.579. 2.1046 1950 Unknown [id number] 2.16.840.1.417130.3.579. 2.1046 1950 Unknown [id number] 2.16.840.1.183873.3.579. 2.6 1950 Unknown [id number] 2.16.840.1.204023.3.579. 2.1046 1950 Unknown [id number] 2.16.840.1.528179.3.579. 2.1045 1950 Unknown [id number] 2.16.840.1.222522.3.579. 2.1046 1950 Unknown [id number] 2.16.840.1.342937.3.579. 2.1045 1950 Unknown [id number] 2.16.840.1.348185.3.579. 2.6 1950 Unknown [id number] 2.16.840.1.306012.3.579. 2.356 1950 Unknown [id number] 2.16.840.1.126489.3.579. 2.356 1950 Unknown [id number] 2.16.840.1.309713.3.579. 2.356 1950 Unknown [id number] 2.16.840.1.100987.3.579. 2.356 1950 Unknown [id number] 2.16.840.1.169161.3.579. 2.356 1950 Unknown [id number] 2.16.840.1.468818.3.579. 2.356 1950 Unknown [id number] 2.16.840.1.739187.3.579. 2.356 1950 Unknown [id number] 2.16.840.1.586718.3.579. 2.356 1950 Unknown [id number] 2.16.840.1.224581.3.579. 2.356 1950 Unknown [id number] 2.16.840.1.655307.3.579. 2.356 1950 Unknown [id number] 2.16.840.1.049840.3.579. 2.356 1950 Unknown [id number] 2.16.840.1.335793.3.579. 2.356 1950 Unknown [id number] 2.16.840.1.315500.3.579. 2.356 1950 Unknown [id number] 2.16.840.1.490823.3.579. 2.356 1950 Unknown [id number] 2.16.840.1.598074.3.579. 2.356 1950 Unknown [id number] 2.16.840.1.048425.3.579. 2.356 1950 Unknown [id number] 2.16.840.1.502269.3.579. 2.356 1950 Unknown [id number] 2.16.840.1.170042.3.579. 2.356 1950 Unknown [id number] 2.16.840.1.677271.3.579. 2.356 1950 Unknown [id number] 2.16.840.1.195591.3.579. 2.356 1950 Unknown [id number] 2.16.840.1.983368.3.579. 2.356 1950 Unknown [id number] 2.16.840.1.596134.3.579. 2.356 1950 Unknown [id number] 2.16.840.1.395090.3.579. 2.356 1950 Unknown [id number] 2.16.840.1.463214.3.579. 2.356 1950 Unknown [id number] 2.16.840.1.000338.3.579. 2.356 1950 Unknown [id number] 2.16.840.1.877507.3.579. 2.356 1950 Unknown [id number] 2.16.840.1.925092.3.579. 2.356 1950 Unknown [id number] 2.16.840.1.080994.3.579. 2.356 1950 Unknown [id number] 2.16.840.1.731617.3.579. 2.356 1950 Unknown [id number] 2.16.840.1.908487.3.579. 2.356 1950 Unknown [id number] 2.16.840.1.556548.3.579. 2.356 1950 Unknown [id number] 2.16.840.1.015828.3.579. 2.356 1950 Unknown [id number] 2.16.840.1.451756.3.579. 2.1242 1950 Unknown [id number] 2.16.840.1.834170.3.579. 2.627 1950 Unknown [id number] 2.16.840.1.417611.3.579. 2.159 1950 Unknown [id number] 2.16.840.1.326183.3.579. 2.159 1950 Unknown [id number] 2.16.840.1.389212.3.579. 2.159 1950 Unknown [id number] 2.16.840.1.322863.3.579. 2.159 1950 Unknown [id number] 2.16.840.1.439807.3.579. 2.159 1950 Unknown [id number] 2.16.840.1.131923.3.579. 2.159 1950 Unknown [id number] 2.16.840.1.351572.3.579. 2.159 1950 Unknown [id number] 2.16.840.1.927927.3.579. 2.1244 1950 Unknown [id number] 2.16.840.1.549791.3.579. 2.1244 1950 Unknown [id number] 2.16.840.1.610120.3.579. 2.1244 1950 Unknown [id number] 2.16.840.1.945382.3.579. 2.1244 1950 Unknown [id number] 2.16.840.1.425142.3.579. 2.1244 1950 Unknown [id number] 2.16.840.1.511279.3.579. 2.1246 1950 Unknown [id number] 2.16.840.1.225342.3.579. 2.1246 1950 Unknown [id number] 2.16.840.1.470867.3.579. 2.1246 1950 Unknown [id number] 2.16.840.1.891309.3.579. 2.1246 1950 Unknown [id number] 2.16.840.1.964332.3.579. 2.1246 1950 Unknown [id number] 2.16.840.1.946535.3.579. 2.1246 1950 Unknown [id number] 2.16.840.1.505825.3.579. 2.1246 1950 Unknown [id number] 2.16.840.1.854459.3.579. 2.1246 1950 Unknown [id number] 2.16.840.1.629383.3.579. 2.1243 1950 Unknown [id number] 2.16.840.1.166709.3.579. 2.4 1950 Unknown [id number] 2.16.840.1.099130.3.579. 2.1243 1950 Unknown [id number] 2.16.840.1.317803.3.579. 2.1243 1950 Unknown [id number] 2.16.840.1.158559.3.579. 2.1243 1950 Unknown [id number] 2.16.840.1.810918.3.579. 2.1243 1950 Unknown [id number] 2.16.840.1.843172.3.579. 2.1243 1950 Unknown [id number] 2.16.840.1.415520.3.579. 2.1243 1950 Unknown [id number] 2.16.840.1.270382.3.579. 2.1243 1950 Unknown [id number] 2.16.840.1.489948.3.579. 2.1243 1950 Unknown [id number] 2.16.840.1.108629.3.579. 2.1243 1950 Unknown [id number] 2.16.840.1.958461.3.579. 2.1243 1950 Unknown [id number] 2.16.840.1.378411.3.579. 2.1243 1950 Unknown [id number] 2.16.840.1.228325.3.579. 2.1243 1950 Unknown [id number] 2.16.840.1.278357.3.579. 2.1243 1950 Unknown [id number] 2.16.840.1.753037.3.579. 2.1243 1950 Unknown [id number] 2.16.840.1.528526.3.579. 2.1244 1950 Unknown [id number] 2.16.840.1.509031.3.579. 2.1244 1950 Unknown [id number] 2.16.840.1.673329.3.579. 2.1244 Medicare [id number] Unknown [id number] 2.16.840.1.384589.3.579. 2.462 Unknown [id number] 2.16.840.1.275979.3.579. 2.462 Unknown [id number] 2.16.840.1.212082.3.579. 2.462 Unknown [id number] 2.16.840.1.200815.3.579. 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 [facility] Other Phone (unformatted): [phone] Start: 08-11-2022 End: 06-13-2023 Tobacco smoking status NHIS Never smoked tobacco [facility] Start: 08-11-2022 End: 06-13-2023 Tobacco use and exposure Smokeless tobacco non-user [facility] Work Phone: Start: 08-12-2022 End: 04-24-2023 Tobacco use panel [facility] Work Phone: Start: 1950 Sex Assigned At Not on file U [facility] Work Phone: Start: 08-01-2022 End: 10-10-2024 Exposure to SARS-CoV-2 (event) Not sure [facility] Start: 11-11-2022 End: 01-28-2025 Alcohol intake Ex-drinker (finding) [facility] Work Phone: Start: 04-23-2023 End: 11-21-2023 Alcohol intake Current non-drinker of alcohol (finding) [facility] Start: 04-02-2022 Adult Depression Screening Assessment 0 [facility] Work Phone: How often to you hav e a drink containing alcohol? Never [facility] At any time in the past 12 months, were you homeless or living in penitentiary [including now]? No [facility] Work Phone: Start: 08-05-2023 End: 08-12-2024 Exposure to SARS-CoV-2 (event) Unable to assess [facility] Tobacco smoking status No Smoking Status Entered [facility] Start: 1950 Sex Assigned At Female [facility] Start: 07-17-2024 End: 07-17-2024 Sex Female (finding) [facility] NEGATED: Highlighted row - - [facility] Work Phone: NEGATED: Highlighted rowStart: LEVARF History of tobacco use Passive smoker [facility] Work Phone: Medical Equipment Procedure Code Equipment Code Equipment Original Text Equipment Identifier Dates Graft, Xenosure, Biologic Patch, 0.8cm X 8cm Case [id number] Start: 07-30-2021 Comment on above: Description: Convert ed from [facility] Acute. Please see archived information for full log information. Pacemaker-Sedr01 [id number] -2009 [id number] Start: 09-02-2008 Goals Date Patient Goal Desired Activity /State Functional Status Date Assessment Result Facility 02-17-2025 Vital signs 64 02/17/2025 11 :00 AM EDT Patt Escalona LPN [facility] 02-17-2025 Functional status [facility] 02-17-2025 [facility] Work Phone: 01-28-2025 Patient Health Questionnaire 2 item (PHQ-2) [Reported] [facility] Work Phone: 10-28-2024 Patient Health Questionnaire 2 item (PHQ-2) [Reported] [facility] Work Phone: 01-03-2024 Functional Status Up ad tanvi Tye Ozuna spital Tye Felix Functional observable [facility] Other Phone (unformatted): [phone] NEGATED: Highlighted row Functional performance Functional status health issues are not documented Disease [place] [facility] Work Phone: Mental Status Date Assessment Result Facility 07-17-2024 Cognitive function Voice/Name Serjio Perez [facility] Work Phone: 01-03-2024 Mental Status Oriented x [facility] 08-01-2021 Cognitive functi ons :27 [facility] Other Phone (unformatted): [phone] NEGATED: Highlighted row Cognitive function [Interpretation] Cognitive status health issues are not documented Disease [place] [facility] Phone: Clinical Notes 08-30-2008 to 01-28-2025 Ronit Doan, - 01/28/2025 1:00 PM EDTPatient InstructionsAssessment & Plan Note - Temi eCja - 10/28/2024 2:39 PM EDTAssessment & Plan Note - Temi Ceja - 10/28/2024 2:39 PM EDT Note Date & Type Note Facility 01-28-2025 History of Present illness Narrative Subjective Pau Vidales" is a 74 y.o. female who presents for a follow up visit and A1C check. HPI Patient states she has been doing good since her last visit. A1c was 7.2% on 01/21/2025. Patient believes it will come down more. She has been cutting out more sugar and sweets from her diet. She struggles with cutting out starches. Patient has been slowly losing weight. She has started walking outside more now that the weather has cooled down. States she tries to walk around her building. Patient follows up with vascular surgery, and cardiology. States her breathing has been okay. She has difficulties when it is very humid outside or when the pollen count is high. Patient uses her inhaler once a day for sure, and then twice a day as needed. Patient has been doing well with the tramadol. She has been taking it as needed, and does not need a refill at this time. Patient states she is staying active and involved in local projects. Patient is scheduled for a PT/INR testing in 3 weeks. Patient would like to go over her medication dosage today fro Warfarin. Patient has received her flu shot from the pharmacy. Patient gets the lower dose, due to a reaction to the high dose vaccine years ago. Review of Systems Respiratory: Negative for shortness of breath. Gastrointestinal: Negative for constipation and diarrhea. Genitourinary: Negative for difficulty urinating, dysuria and frequency. Objective BP 130/78 Pulse 99 Resp 16 Ht 1.524 m (5') Wt 85.3 kg (188 lb) BMI 36.72 kg/m Physical Exam Constitutional: General: She is not in acute distress. Appearance: Normal appearance. HENT: Mouth/Throat: Mouth: Mucous membranes are moist. Pharynx: No oropharyngeal exudate. Eyes: General: No scleral icterus. Extraocular Movements: Extraocular movements intact. Conjunctiva/sclera: Conjunctivae normal. Pupils: Pupils are equal, round, and reactive to light. Cardiovascular: Rate and Rhythm: Normal rate and regular rhythm. Heart sounds: Normal heart sounds. Pulmonary: Effort: Pulmonary effort is normal. Breath sounds: Normal breath sounds. Abdominal: General: There is no distension. Palpations: Abdomen is soft. Tenderness: There is no abdominal tenderness. Musculoskeletal: General: Normal range of motion. Cervical back: Normal range of motion. Skin: General: Skin is warm and dry. Neurological: General: No focal deficit present. Mental Status: She is alert. Assessment/Plan Problem List Items Addressed This Visit Cardiac and Vasculature [id number]: I am the internal medicine physician who provides ongoing chronic medical care for this physician. This includes management during office visits and also in between office visits. Essential hypertension: remain on lisinopril 10 mg . Has been feelikng well. Relevant Orders Basic metabolic panel Follow Up In [facility] - PCP - Established Endocrine/Metabolic Type 2 diabetes mellitus, without long-term current use of insulin (Multi) remain on metoformin 2 grams daily. Relevant Orders Hemoglobin A1C Basic metabolic panel Follow Up In [facility] - PCP - Established Pulmonary and Pneumonias Asthma - Primary stable. Uses Trelegy and uses duoneb once daily, more if needed. Sees Dr Duarte Relevant Orders Follow Up In [facility] - PCP - Established Other Visit Diagnoses Osteoarthritis mult sites: she did not need refill of tramadol. She takes when needed. Was refilled last in November. Permanent atrial fibrillation (Multi) sees Dr Hagen. Remain on diltiazem and warfarin. Relevant Orders Follow Up In [facility] - PCP - Established Return to see me in 3 months for follow up visit to check A1c. Scribe Attestation: By signing my name below, I, Selvin Valera attest that this documentation has been prepared under the direction and in the presence of Ronit Doan DO. Provider Attestation - Scribe documentation: All medical record entries made by Natividad Iqbal were at my direction and personally dictated by me, Ronit Doan DO. I have reviewed the chart and agree that the record is accurate and I confirmed that it reflects my personal performance of the history, physical exam, discussion, and plan. documented in this encounter [facility] Work Phone: 01-28-2025 Instructions Ronit Doan DO - 01/28/2025 1:00 PM EDT See me again in 3 months. Get blood test done close to next visit. documented in this encounter [facility] Work Phone: 10-28-2024 Evaluation + Plan note Associated Problem(s): Encounter for preventative adult health care examination Medicare wellness completed today In addition to Medicare Wellness visit, the following issues were addressed with separate E/M and treatment decision such as refills or tests were ordered: Afib Type 2 DM HTN [facility] Work Phone: 10-28-2024 Miscellaneous Notes Associated Problem(s): Encounter for preventative adult health care examination Medicare wellness completed today In addition to Medicare Wellness visit, the following issues were addressed with separate E/M and treatment decision such as refills or tests were ordered: Afib Type 2 DM HTN Associated Problem(s): Type 2 diabetes mellitus, without long-term current use of insulin (Multi) A1c 7.4 Started on Metformin 500 mg daily at [facility]. Increase to metformin 500 mg 1 tab BID Associated Problem(s): Permanent atrial fibrillation (Multi) Remain on Warfarin 2.5 mg 6 days a week and 1.25 on Monday. Recheck INR in 2 weeks. Associated Problem(s): Essential hypertension Controlled Remain on Lisinopril 10 mg daily and Cardizem 240 mg q12h documented in this encounter [facility] Work Phone: 10-28-2024 History of Present illness Narrative Subjective Reason for Visit: Pau Muñoz is an 74 y.o. female here for a Medicare Wellness visit. Reviewed all medications by prescribing practitioner or clinical pharmacist (such as prescriptions, OTCs, herbal therapies and supplements) and documented in the medical record. HPI Patient presents today for her Medicare Wellness. Seeing vascular, pulmonology, and cardiology. She has MGUS Denies any recent falls. Wears hearing aids. Eating a well-balanced diety, drinking plenty of water. Likes to drink iced tea, but no coffee. Her breast biopsy was benign Mammogram 06/2024: IMPRESSION: Heterogeneous hypoechoic right breast nodules at 1 o'clock as described including underlying area of palpable concern and for which ultrasound guided biopsy recommended. Per patient, she will follow up at another institution for surgical consultation and biopsy. Right breast mammographic asymmetries and areas of probable postsurgical/post biopsy changes on the right as described. Recommend short interval six-month follow-up right mammogram and ultrasound to evaluate stability. Stable mammographic appearance of the left breast. U/S R Breast: Narrative Interpreted By: David Jon, STUDY: BI MAMMO BILATERAL DIAGNOSTIC TOMOSYNTHESIS; BI US BREAST LIMITED RIGHT; 07/05/2024 11:05 am; 07/05/2024 12:01 pm ACCESSION NUMBER(S): [id number]; [id number] ORDERING CLINICIAN: RONIT DOAN INDICATION: History of benign right excisional biopsies. Right breast palpable lump. Family history of breast cancer. ,N64.4 Mastodynia; ,N63.0 Unspecified lump in unspecified breast,N63.12 Unspecified lump in the right breast, upper inner quadrant COMPARISON: 06/21/2023, 06/06/2022 FINDINGS: MAMMOGRAPHY: 2D and tomosynthesis images were reviewed at 1 mm slice thickness. Density: The breasts are heterogeneously dense, which may obscure small masses. Skin marker overlies area of palpable concern at the upper slightly inner right breast. No definite new suspicious mass seen mammographically at this location. There is some density/distortion just posterior to this suggesting changes from previous excisional biopsy as noted previously and similar in appearance. There are some nodular asymmetries superior right breast on the MLO projection mid to posterior depth. Scar marker superior right breast redemonstrated overlying area of previous post biopsy changes. No definite additional new suspicious masses or calcifications are otherwise identified. ULTRASOUND: Targeted ultrasound was performed of the right breast by a registered internal affairs investigator with elastography. Grayscale and color imaging reviewed. At 1 o'clock 6 cm from nipple, there is a heterogeneous ovoid hypoechoic nodule measuring 6 x 5 x 7 mm. There is some heterogeneous internal echogenicity which shows some stiffness on elastography. Area of hypoechogenicity deep to this probably relating to postsurgical scarring. At 1 o'clock 8 cm from nipple is a mildly heterogeneous hypoechoic nodule measuring up to 5 x 6 mm although no definite suspicious internal vascularity and generally soft on elastography. Impression Heterogeneous hypoechoic right breast nodules at 1 o'clock as described including underlying area of palpable concern and for which ultrasound guided biopsy recommended. Per patient, she will follow up at another institution for surgical consultation and biopsy. DEXA 05/2022 Interpretation: According to World Health Organization criteria, classification low bone mass (osteopenia). Followup recommended on May 2024 or sooner as clinically warranted. Colonoscopy 07/2013 Latest Reference Range & Units 04/23/24 09:30 10/21/24 08:00 GLUCOSE 74 - 99 mg/dL 130 (H) GLUCOSE 65 - 139 mg/dL 134 SODIUM 136 - 145 mmol/L 138 SODIUM 135 - 146 mmol/L 138 POTASSIUM 3.5 - 5.3 mmol/L 4.8 POTASSIUM 3.5 - 5.3 mmol/L 4.4 CHLORIDE 98 - 107 mmol/L 99 CHLORIDE 98 - 110 mmol/L 99 Bicarbonate 21 - 32 mmol/L 30 CARBON DIOXIDE 20 - 32 mmol/L 28 Anion Gap 10 - 20 mmol/L 14 ELECTROLYTE BALANCE 7 - 17 mmol/L (calc) 11 Blood Urea Nitrogen 6 - 23 mg/dL 17 UREA NITROGEN (BUN) 7 - 25 mg/dL 15 Creatinine 0.50 - 1.05 mg/dL 1.00 CREATININE 0.60 - 1.00 mg/dL 0.93 EGFR >60 mL/min/1.73m*2 60 (L) EGFR > OR = 60 mL/min/1.73m2 64 Calcium 8.6 - 10.6 mg/dL 10.0 CALCIUM 8.6 - 10.4 mg/dL 9.1 Albumin 3.4 - 5.0 g/dL 4.3 ALBUMIN 3.6 - 5.1 g/dL 4.1 PROTEIN, TOTAL 6.1 - 8.1 g/dL 7.5 Alkaline Phosphatase 33 - 136 U/L 102 ALKALINE PHOSPHATASE 37 - 153 U/L 104 ALT 7 - 45 U/L 14 ALT 6 - 29 U/L 13 AST 9 - 39 U/L 18 AST 10 - 35 U/L 17 Bilirubin Total 0.0 - 1.2 mg/dL 0.4 BILIRUBIN, TOTAL 0.2 - 1.2 mg/dL 0.4 CHOLESTEROL, TOTAL <200 mg/dL 143 HDL CHOLESTEROL mg/dL 71.7 HDL CHOLESTEROL > OR = 50 mg/dL 66 Cholesterol/HDL Ratio 2.3 CHOL/HDLC RATIO <5.0 (calc) 2.2 LDL Calculated <=99 mg/dL 57 LDL-CHOLESTEROL mg/dL (calc) 54 VLDL 0 - 40 mg/dL 37 TRIGLYCERIDES 0 - 149 mg/dL 187 (H) TRIGLYCERIDES <150 mg/dL 149 Non HDL Cholesterol 0 - 149 mg/dL 94 NON HDL CHOLESTEROL <130 mg/dL (calc) 77 Total Protein 6.4 - 8.2 g/dL 7.9 CHOLESTEROL 0 - 199 mg/dL 166 Hemoglobin A1C See comment % 6.7 (H) HEMOGLOBIN A1c <5.7 % 7.4 (H) Estimated Average Glucose Not Established mg/dL 146 eAG (mg/dL) mg/dL 166 eAG (mmol/L) mmol/L 9.2 WBC 4.4 - 11.3 x10*3/uL 10.0 WHITE BLOOD CELL COUNT 3.8 - 10.8 Thousand/uL 9.0 nRBC 0.0 - 0.0 /100 WBCs 0.0 RBC 4.00 - 5.20 x10*6/uL 5.43 (H) RED BLOOD CELL COUNT 3.80 - 5.10 Million/uL 5.11 (H) HEMOGLOBIN 12.0 - 16.0 g/dL 14.4 HEMOGLOBIN 11.7 - 15.5 g/dL 13.5 HEMATOCRIT 36.0 - 46.0 % 46.7 (H) HEMATOCRIT 35.0 - 45.0 % 42.5 MCV 80 - 100 fL 86 MCV 80.0 - 100.0 fL 83.2 MCH 26.0 - 34.0 pg 26.5 MCH 27.0 - 33.0 pg 26.4 (L) MCHC 32.0 - 36.0 g/dL 30.8 (L) MCHC 32.0 - 36.0 g/dL 31.8 (L) RED CELL DISTRIBUTION WIDTH 11.5 - 14.5 % 15.9 (H) RDW 11.0 - 15.0 % 15.7 (H) Platelets 150 - 450 x10*3/uL 367 PLATELET COUNT 140 - 400 Thousand/uL 352 MPV 7.5 - 12.5 fL 9.0 (H): Data is abnormally high (L): Data is abnormally low Depression screening was completed today using PHQ-2 and was negative. Falls risk was assessed today. Pt does not use ambulatory aids. Home safety measures were addressed today. Functional status was addressed and no concerns per patient today. Nutritional status completed today. Alcohol screening was performed today taking 5 min of time. Pt is independent with finances, medications and transportation. Pt lives in own home. . Advanced Care Planning ( including a Living will, Healthcare POA, as well as specific end of life choices or directives) , was discussed with the patient . The Pt. Has Living Will/HCPOA Patient Care Team: Ronit Doan DO as PCP - General Ronit Doan DO as PCP [place] [facility] Attributed Provider Timothy Palacio DO as Consulting Physician (Cardiology) Charline Hagen DO as Consulting Physician (Cardiology) Review of Systems HENT: Positive for hearing loss. Objective Vitals: BP 120/71 Pulse 89 Resp 16 Ht 1.524 m (5') Wt 87.7 kg (193 lb 6.4 oz) BMI 37.77 kg/m Physical Exam Constitutional: Appearance: Normal appearance. HENT: Mouth/Throat: Mouth: Mucous membranes are moist. Pharynx: Oropharynx is clear. Eyes: Conjunctiva/sclera: Conjunctivae normal. Pupils: Pupils are equal, round, and reactive to light. Cardiovascular: Rate and Rhythm: Normal rate and regular rhythm. Heart sounds: Normal heart sounds. Pulmonary: Effort: Pulmonary effort is normal. Breath sounds: Normal breath sounds. Abdominal: General: Bowel sounds are normal. There is no distension. Palpations: Abdomen is soft. There is no mass. Tenderness: There is no abdominal tenderness. Lymphadenopathy: Cervical: No cervical adenopathy. Skin: General: Skin is warm and dry. Neurological: General: No focal deficit present. Assessment/Plan Problem List Items Addressed This Visit Encounter for preventative adult health care examination - Primary Medicare wellness completed today In addition to Medicare Wellness visit, the following issues were addressed with separate E/M and treatment decision such as refills or tests were ordered: Afib Type 2 DM HTN Essential hypertension Controlled Remain on Lisinopril 10 mg daily and Cardizem 240 mg q12h Relevant Orders Follow Up In [facility] - PCP - Established Permanent atrial fibrillation (Multi) (Chronic) Remain on Warfarin 2.5 mg 6 days a week and 1.25 on Monday. Recheck INR in 2 weeks. Relevant Orders POCT INR manually resulted (Completed) Follow Up In [facility] - PCP - Established Type 2 diabetes mellitus, without long-term current use of insulin (Multi) A1c 7.4 Started on Metformin 500 mg daily at [facility]. Increase to metformin 500 mg 1 tab BID New prescription sent to pharmacy Relevant Medications metFORMIN XR (Glucophage-XR) 500 mg 24 hr tablet Other Relevant Orders Follow Up In [facility] - PCP - Established Please return to see me in 3 months for a 30 minute follow up. Scribe Attestation By signing my name below, I, Selvin Helms attest that this documentation has been prepared under the direction and in the presence of Ronit Doan DO. documented in this encounter [facility] Work Phone: 10-28-2024 Instructions Ronit Doan DO - 10/28/2024 2:15 PM EDT New schedule: 1.25 mg on MONDAYS and 2.5 mg all other day. That will be new schedule. Recheck in 2 weeks. Increase metformin to two tabs daily and will see how this works out. If you end up needing another refill before your visit, just let me know. See me in 3 months for 30 min visit with A1c documented in this encounter [facility] Work Phone: 10-28-2024 Evaluation + Plan note Associated Problem(s): Type 2 diabetes mellitus, without long-term current use of insulin (Multi) A1c 7.4 Started on Metformin 500 mg daily at [facility]. Increase to metformin 500 mg 1 tab BID [facility] Work Phone: 10-28-2024 Evaluation + Plan note Associated Problem(s): Permanent atrial fibrillation (Multi) Remain on Warfarin 2.5 mg 6 days a week and 1.25 on Monday. Recheck INR in 2 weeks. [facility] Work Phone: 10-28-2024 Evaluation + Plan note Associated Problem(s): Essential hypertension Controlled Remain on Lisinopril 10 mg daily and Cardizem 240 mg q12h [facility] Work Phone: 09-11-2024 History of Present illness Narrative Pau Vidales" is a 74 y.o. female Subjective This patient presents today for follow-up of her carotid artery disease. She currently denies any constitutional symptoms associated with her carotid artery disease. I did do a left carotid endarterectomy on her about 3 years ago. She put on a medication for diabetes. She denies any fever chills nausea vomiting or headache. Objective Vitals: 09/11/24 0900 BP: 128/74 Pulse: 92 SpO2: 95% Physical Exam This patient is alert and oriented x3 her head is normocephalic neck is soft and supple without palpable lymph nodes. Heart is regular rate. Lungs are clear. Abdomen is obese and soft with positive bowel sounds. There is no pain on palpation. Upper and lower extremities have adequate range of motion with palpable brachial radial femoral and popliteal pulses. Skin turgor is adequate. Psychologically the patient appears to be acting appropriately. Blood pressure 128/74, pulse 92, height 1.524 m (5'), weight 88 kg (194 lb), SpO2 95%. Patient Active Problem List Diagnosis Date Noted Mass of upper inner quadrant of right breast 06/20/2024 High risk medication use 05/23/2024 Accidental fall 11/14/2023 High triglycerides 11/14/2023 Spinal stenosis of lumbar region with neurogenic claudication 10/09/2023 Left buttock pain 04/24/2023 Advanced diabetic retinal disease (Multi) 04/14/2023 Adverse effect of compound iron preparation 04/14/2023 Anxiety 04/14/2023 Bacterial skin infection 04/14/2023 Carotid bruit 04/14/2023 Carotid stenosis 04/14/2023 Cellulitis of left ear canal 04/14/2023 Complete atrioventricular block (Multi) 04/14/2023 Dental disease 04/14/2023 Eczema 04/14/2023 History of COVID-19 04/14/2023 Hypokalemia 04/14/2023 IBS (irritable bowel syndrome) 04/14/2023 Impaired ambulation 04/14/2023 Iron deficiency 04/14/2023 Lumbar strain, initial encounter 04/14/2023 MGUS (monoclonal gammopathy of unknown significance) 04/14/2023 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, lumbar region 04/14/2023 Trigger finger, acquired 04/14/2023 Contact dermatitis 04/14/2023 Permanent atrial fibrillation (Multi) 02/01/2023 (HFpEF) heart failure with preserved ejection fraction 12/12/2022 Type 2 diabetes mellitus, without long-term current use of insulin (Multi) 12/12/2022 Dyspnea on exertion 10/25/2022 COVID-19 virus infection 08/12/2022 Osteoarthritis 08/12/2022 On warfarin therapy 08/11/2022 Class 2 obesity with body mass index (BMI) of 37.0 to 37.9 in adult 10/06/2017 Essential hypertension 12/11/2015 Left ventricular dysfunction 08/16/2009 Presence of cardiac pacemaker 09/05/2008 Cough 09/04/2008 Coronary atherosclerosis 08/29/2008 Primary pulmonary hypertension (Multi) 08/15/2008 Ventricular septal defect ([facility]) 08/15/2008 Hypercholesterolemia 10/26/2007 Asthma 05/18/2007 Degeneration of lumbar or lumbosacral intervertebral disc 05/18/2007 Current Medications[1] Lab Results Component Value Date WBC 10.0 04/23/2024 HGB 14.4 04/23/2024 HCT 46.7 (H) 04/23/2024 PLT 367 04/23/2024 CHOL 166 04/23/2024 TRIG 187 (H) 04/23/2024 HDL 71.7 04/23/2024 ALT 14 04/23/2024 AST 18 04/23/2024 NA 138 04/23/2024 K 4.8 04/23/2024 CL 99 04/23/2024 CREATININE 1.00 04/23/2024 BUN 17 04/23/2024 CO2 30 04/23/2024 TSH 1.77 11/01/2022 INR 2.0 (A) 08/12/2024 HGBA1C 7.0 (A) 07/22/2024 Vascular US carotid artery duplex bilateral Result Date: 08/24/2024 [place] [id number] and V[facility] CAROTID ARTERY DUPLEX BILATERAL Patient Name: PAUYamila MUÑOZ Reading Physician: [id number] Nolvia Lopez MD, RPVI Study Date: 08/22/2024 Ordering Physician: [id number] KISER MRN/PID: [id number] Technologist: Emili Rascon RVT Technologist 2: Date of /Age: 1 1950 / 74 years Gender: F Admission Status: Outpatient Location Performed: [facility] Diagnosis/ICD: Occlusion and stenosis of left carotid artery-I65.22 Indication: Occlusion/stenosis, Carotid without cerebral infarction CPT Codes: 45866 Cerebrovascular Carotid Duplex scan complete CONCLUSIONS: Right Carotid: Findings are consistent with less than 50% stenosis of the right proximal internal carotid artery. Laminar flow seen by color Doppler. Right external carotid artery appears patent with no evidence of stenosis. No evidence of hemodynamically significant stenosis of the right common carotid artery. The right vertebral artery is patent with antegrade flow. No evidence of hemodynamically significant stenosis in the right subclavian artery. Left Carotid: Findings are consistent with less than 50% stenosis of the left proximal internal carotid artery. Laminar flow seen by color Doppler. Left external carotid artery appears patent with no evidence of stenosis. No evidence of hemodynamically significant stenosis of the left common carotid artery. The left vertebral artery is patent with antegrade flow. No evidence of hemodynamically significant stenosis in the left subclavian artery. Endarterectomy: Patent left carotid endarterectomy site following endarterectomy. Patch diameter ~ 1.1 cm. Comparison: Compared with study from 08/22/2023, Elevated velocities within the right Subclavian artery was not appreciated on current examination. Imaging & Doppler Findings: Right Plaque Morph: The proximal right internal carotid artery demonstrates calcified plaque. The proximal right external carotid artery demonstrates intimal thickening plaque. The mid right common carotid artery demonstrates intimal thickening plaque. The distal right common carotid artery demonstrates intimal thickening plaque. Left Plaque Morph: The mid left common carotid artery demonstrates intimal thickening plaque. The distal left common carotid artery demonstrates smooth plaque. Right Left PSV EDV PSV EDV 110 cm/s CCA P 90 cm/s 78 cm/s CCA D 44 cm/s 101 cm/s 22 cm/s ICA P 34 cm/s 6 cm/s 61 cm/s 17 cm/s ICA M 43 cm/s 8 cm/s 49 cm/s 13 cm/s ICA D 62 cm/s 104 cm/s ECA 74 cm/s 54 cm/s 9 cm/s Vertebral 46 cm/s 8 cm/s 128 cm/s Subclavian Right Left ICA/CCA Ratio 1.3 0.8 [id number] Nolvia Lopez MD, RPVI Final Assessment/Plan Assessment & Plan Carotid stenosis, bilateral This patient presents today for follow-up of her carotid artery disease. She currently denies any constitutional symptoms associated with her carotid artery disease. I did do a left carotid endarterectomy on her about 3 years ago. She recently had a carotid duplex scan done and I have extensively gone over the results with her. This shows mild disease bilaterally. At this time, I am very pleased with her current results. She can follow-up in 1 year with a repeat carotid duplex scan. Jaylon Kiser, [1] Current Outpatient Medications: cetirizine (ZyrTEC) 10 mg capsule, Take 1 capsule (10 mg) by mouth once daily., Disp: , Rfl: dilTIAZem CD (Cardizem CD) 240 mg 24 hr capsule, Take 1 capsule (240 mg) by mouth every 12 hours., Disp: 180 capsule, Rfl: 3 esomeprazole (NexIUM) [address] capsule, Take 1 capsule (20 mg) by mouth once daily in the morning. Take before meals. Do not open capsule. Pt gets otc, Disp: , Rfl: deucyrwtywv-xpzjzziyh-linttxxt (Trelegy Ellipta) 200-62.5-25 mcg blister with device, Inhale 1 puff once daily., Disp: , Rfl: furosemide (Lasix) 20 mg tablet, Take 2 tablets (40 mg) by mouth once daily in the morning AND 1 tablet (20 mg) once daily in the evening. Every evening., Disp: 270 tablet, Rfl: 3 gabapentin (Neurontin) 100 mg capsule, Take 1 capsule (100 mg) by mouth 3 times a day., Disp: , Rfl: ipratropium-albuteroL (Duo-Neb) 0.5-2.5 mg/3 mL nebulizer solution, Take 3 mL by nebulization every 6 hours., Disp: 180 mL, Rfl: 3 levalbuterol (Xopenex) 45 mcg/actuation inhaler, Inhale 2 puffs every 4 hours if needed for wheezing., Disp: , Rfl: lisinopril 10 mg tablet, Take 1 tablet (10 mg) by mouth once daily., Disp: 90 tablet, Rfl: 3 magnesium oxide 500 mg capsule, Take 1 capsule (500 mg) by mouth once daily., Disp: , Rfl: metFORMIN XR (Glucophage-XR) 500 mg 24 hr tablet, Take 1 tablet (500 mg) by mouth once daily. Do not crush, chew, or split., Disp: 90 tablet, Rfl: 0 methocarbamol (Robaxin) 750 mg tablet, Take 1 tablet (750 mg) by mouth 3 times a day as needed for muscle spasms., Disp: 12 tablet, Rfl: 0 nebulizer accessories [facility] [place], Dispense Nebulizer tubing and mouthpiece at quantity allowed per Medicare per month with one year of refills, Disp: 1 each, Rfl: 11 nitroglycerin (Nitrostat) 0.4 mg SL tablet, Place 1 tablet (0.4 mg) under the tongue every 5 minutes if needed for chest pain., Disp: , Rfl: pravastatin (Pravachol) 40 mg tablet, Take 1 tablet (40 mg) by mouth once daily., Disp: 90 tablet, Rfl: 2 traMADol (Ultram) 50 mg tablet, Take 1 tablet (50 mg) by mouth every 8 hours if needed for severe pain (7 - 10)., Disp: 90 tablet, Rfl: 0 warfarin (Coumadin) 2.5 mg tablet, Take once daily as directed by physician., Disp: 90 tablet, Rfl: 3 warfarin sodium (COUMADIN ORAL), Take 1.25 mg by mouth once daily. Takes Monday//monday, Disp: , Rfl: documented in this encounter [facility] Work Phone: 08-26-2024 Telephone encounter Note QUINTEN Last creatinine 0.93 from 06-21-2023 Please resend to new pharmacy listed below Patient's request for medication is as follows: Requested Prescriptions Pending Prescriptions Disp Refills gabapentin (NEURONTIN) 100 mg capsule 120 capsule 11 Sig: Dose clarification: take 2 tabs PO BID Prescription(s) as above. Please process accordingly. Angeli Greenfield LPN [facility] 08-26-2024 Miscellaneous Notes QUINTEN Last creatinine 0.93 from 06-21-2023 Please resend to new pharmacy listed below Patient's request for medication is as follows: Requested Prescriptions Pending Prescriptions Disp Refills gabapentin (NEURONTIN) 100 mg capsule 120 capsule 11 Sig: Dose clarification: take 2 tabs PO BID Prescription(s) as above. Please process accordingly. Angeli Greenfield LPN documented in this encounter [facility] 08-24-2024 Note HNO ID: [id number] Author: MARNIE FAIRCHILD MD Service: ? Author Type: Physician Type: Progress Notes Filed: 08/24/2024 10:16 Note Text: Patient called this morning to on-call provider seeking refills that she submitted yesterday. I informed her that usually no refills are provided after hours or on the weekend. I did reach out to the patient's pharmacy to inquire about a bridging prescription, however after discussion with the pharmacist there is significant confusion regarding the actual dose of gabapentin with a different provider writing Tramadol and a short prescription for [place] recently. I will defer a bridging prescription and have the patient follow up with Dr. Fairchild for clarification regarding her dose and care as she was last seen in November of 2023. Marnie Fairchild MD August 24, 2024 [facility] 08-24-2024 History of Present illness Narrative Patient called this morning to on-call provider seeking refills that she submitted yesterday. I informed her that usually no refills are provided after hours or on the weekend. I did reach out to the patient's pharmacy to inquire about a bridging prescription, however after discussion with the pharmacist there is significant confusion regarding the actual dose of gabapentin with a different provider writing Tramadol and a short prescription for [place] recently. I will defer a bridging prescription and have the patient follow up with Dr. Fairchild for clarification regarding her dose and care as she was last seen in November of 2023. Marnie Fairchild MD August 24, 2024 documented in this encounter [facility] 08-23-2024 Telephone encounter Note Refill encounter sent. [facility] 08-23-2024 Miscellaneous Notes Refill encounter sent. Patient need a refill on her gabapentin. The pharmacy is telling the patient she has no refills left. Send to [facility] [facility] in [place] [phone] documented in this encounter [facility] 08-23-2024 Telephone encounter Note [facility] Last creatinine 0.93 from 06-21-2023 Patient's request for medication is as follows: Requested Prescriptions Pending Prescriptions Disp Refills gabapentin (NEURONTIN) 100 mg capsule 120 capsule 11 Sig: Dose clarification: take 2 tabs PO BID Prescription(s) as above. Please process accordingly. Angeli Greenfield LPN [facility] 08-23-2024 Miscellaneous Notes [facility] Last creatinine 0.93 from 06-21-2023 Patient's request for medication is as follows: Requested Prescriptions Pending Prescriptions Disp Refills gabapentin (NEURONTIN) 100 mg capsule 120 capsule 11 Sig: Dose clarification: take 2 tabs PO BID Prescription(s) as above. Please process accordingly. Angeli Greenfield LPN documented in this encounter [facility] 08-23-2024 Telephone encounter Note Patient need a refill on her gabapentin. The pharmacy is telling the patient she has no refills left. Send to [facility] in [place] [phone] [facility] 07-22-2024 History of Present illness Narrative Subjective Patient ID: Nancy Muñoz is a 74 y.o. female who presents for follow up. HPI She is doing well today. Today's A1c increased to 7.0%. Not currently on medication but willing to try. Will begin metformin xr 500 daily. States that she is generally constipated when we discussed side effects of loose stools from Metformin. INR was 1.4 prior to Lumpectomy last week, at [facility] by Dr Mccarthy. Had surgery last Monday to "clean out" the area, since she had two prior masses that were benign in the same area. Her incision on her right breast looks good. Will be getting pathology report on Monday at follow up appointment. Did not take Vicodin that was given to her after surgery. Held her warfarin prior to surgery as recommended. Resumed now. Latest Reference Range & Units 04/23/24 09:30 04/23/24 10:41 05/21/24 10:30 06/20/24 10:21 GLUCOSE 74 - 99 mg/dL 130 (H) SODIUM 136 - 145 mmol/L 138 POTASSIUM 3.5 - 5.3 mmol/L 4.8 CHLORIDE 98 - 107 mmol/L 99 Bicarbonate 21 - 32 mmol/L 30 Anion Gap 10 - 20 mmol/L 14 Blood Urea Nitrogen 6 - 23 mg/dL 17 Creatinine 0.50 - 1.05 mg/dL 1.00 EGFR >60 mL/min/1.73m*2 60 (L) Calcium 8.6 - 10.6 mg/dL 10.0 Albumin 3.4 - 5.0 g/dL 4.3 Alkaline Phosphatase 33 - 136 U/L 102 ALT 7 - 45 U/L 14 AST 9 - 39 U/L 18 Bilirubin Total 0.0 - 1.2 mg/dL 0.4 HDL CHOLESTEROL mg/dL 71.7 Cholesterol/HDL Ratio 2.3 LDL Calculated <=99 mg/dL 57 VLDL 0 - 40 mg/dL 37 TRIGLYCERIDES 0 - 149 mg/dL 187 (H) Non HDL Cholesterol 0 - 149 mg/dL 94 Total Protein 6.4 - 8.2 g/dL 7.9 CHOLESTEROL 0 - 199 mg/dL 166 Hemoglobin A1C See comment % 6.7 (H) 07/22/24 Fingerstick A1c 7.0% Estimated Average Glucose Not Established mg/dL 146 WBC 4.4 - 11.3 x10*3/uL 10.0 nRBC 0.0 - 0.0 /100 WBCs 0.0 RBC 4.00 - 5.20 x10*6/uL 5.43 (H) HEMOGLOBIN 12.0 - 16.0 g/dL 14.4 HEMATOCRIT 36.0 - 46.0 % 46.7 (H) MCV 80 - 100 fL 86 MCH 26.0 - 34.0 pg 26.5 MCHC 32.0 - 36.0 g/dL 30.8 (L) RED CELL DISTRIBUTION WIDTH 11.5 - 14.5 % 15.9 (H) Platelets 150 - 450 x10*3/uL 367 POC INR 0.9 - 1.1 2.1 ! 2.5 ! 1.8 ! (H): Data is abnormally high (L): Data is abnormally low !: Data is abnormal Review of Systems Respiratory: Negative for shortness of breath. Cardiovascular: Negative for chest pain and palpitations. Gastrointestinal: Positive for constipation. Negative for diarrhea. Current Outpatient Medications: cetirizine (ZyrTEC) 10 mg capsule, Take 1 capsule (10 mg) by mouth once daily., Disp: , Rfl: dilTIAZem CD (Cardizem CD) 240 mg 24 hr capsule, Take 1 capsule (240 mg) by mouth every 12 hours., Disp: 180 capsule, Rfl: 3 esomeprazole (NexIUM) [address] capsule, Take 1 capsule (20 mg) by mouth once daily in the morning. Take before meals. Do not open capsule. Pt gets otc, Disp: , Rfl: pfegymrckjl-wvtjlxncn-dqvfwwyu (Trelegy Ellipta) 200-62.5-25 mcg blister with device, Inhale 1 puff once daily., Disp: , Rfl: furosemide (Lasix) 20 mg tablet, Take 2 tablets (40 mg) by mouth once daily in the morning AND 1 tablet (20 mg) once daily in the evening. Every evening., Disp: 270 tablet, Rfl: 3 gabapentin (Neurontin) 100 mg capsule, Take 1 capsule (100 mg) by mouth 3 times a day., Disp: , Rfl: ipratropium-albuteroL (Duo-Neb) 0.5-2.5 mg/3 mL nebulizer solution, Take 3 mL by nebulization every 6 hours., Disp: 180 mL, Rfl: 3 levalbuterol (Xopenex) 45 mcg/actuation inhaler, Inhale 2 puffs every 4 hours if needed for wheezing., Disp: , Rfl: lisinopril 10 mg tablet, Take 1 tablet (10 mg) by mouth once daily., Disp: 90 tablet, Rfl: 3 magnesium oxide 500 mg capsule, Take 1 capsule (500 mg) by mouth once daily., Disp: , Rfl: metFORMIN XR (Glucophage-XR) 500 mg 24 hr tablet, Take 1 tablet (500 mg) by mouth once daily. Do not crush, chew, or split., Disp: 90 tablet, Rfl: 0 methocarbamol (Robaxin) 750 mg tablet, Take 1 tablet (750 mg) by mouth 3 times a day as needed for muscle spasms., Disp: 12 tablet, Rfl: 0 nebulizer accessories [facility] [place], Dispense Nebulizer tubing and mouthpiece at quantity allowed per Medicare per month with one year of refills, Disp: 1 each, Rfl: 11 nitroglycerin (Nitrostat) 0.4 mg SL tablet, Place 1 tablet (0.4 mg) under the tongue every 5 minutes if needed for chest pain., Disp: , Rfl: pravastatin (Pravachol) 40 mg tablet, Take 1 tablet (40 mg) by mouth once daily., Disp: 90 tablet, Rfl: 2 traMADol (Ultram) 50 mg tablet, Take 1 tablet (50 mg) by mouth every 8 hours if needed for severe pain (7 - 10)., Disp: 90 tablet, Rfl: 0 warfarin (Coumadin) 2.5 mg tablet, Take once daily as directed by physician., Disp: 90 tablet, Rfl: 3 warfarin sodium (COUMADIN ORAL), Take 1.25 mg by mouth once daily. Takes Monday//monday, Disp: , Rfl: Objective BP 132/75 Pulse 88 Resp 18 Ht 1.524 m (5') BMI 37.89 kg/m Physical Exam Constitutional: Appearance: Normal appearance. Eyes: Conjunctiva/sclera: Conjunctivae normal. Pupils: Pupils are equal, round, and reactive to light. Cardiovascular: Rate and Rhythm: Normal rate and regular rhythm. Heart sounds: Normal heart sounds. Pulmonary: Effort: Pulmonary effort is normal. Breath sounds: Normal breath sounds. Lymphadenopathy: Cervical: No cervical adenopathy. Assessment/Plan Problem List Items Addressed This Visit Cardiac and Vasculature Permanent atrial fibrillation (Multi) (Chronic) Remain on Warfarin. She held it for her surgery on july 17, and on and mon as well. She restarted with 1.25 mg this past weekend. She said her INR on the Monday, Monday and Monday- 2.5 mg Monday, , Monday and Monday- 1.25 mg Essential hypertension Controlled today. Remain on Lisinopril 10 mg daily and Cardizem 240 mg q12h Relevant Orders Comprehensive Metabolic Panel Lipid Panel Hypercholesterolemia - Primary Remain on Pravastatin 40 mg daily Relevant Orders Comprehensive Metabolic Panel Lipid Panel Endocrine/Metabolic Type 2 diabetes mellitus, without long-term current use of insulin (Multi) Fingerstick A1c was 7.0% Start Metformin 500 mg daily. Recheck A1c in 3 months. Discussed side effects of nausea or diarrhea. Relevant Medications metFORMIN XR (Glucophage-XR) 500 mg 24 hr tablet Other Relevant Orders POCT glycosylated hemoglobin (Hb A1C) manually resulted (Completed) Hemoglobin A1C Other Visit Diagnoses Medication monitoring encounter Relevant Orders CBC Please return to see me in 3 months for medicare wellness visit. Scribe Attestation By signing my name below, I, Selvin Martinez attest that this documentation has been prepared under the direction and in the presence of Ronit Doan DO. documented in this encounter [facility] Work Phone: 07-22-2024 Instructions Ronit Doan DO - 07/22/2024 1:45 PM EDT We started you on Metformin 500 XR once a day today. Take it at the same time every day with a meal. For sugars. Return to see me in 3 months for Medicare Wellness . Get blood test done after fasting close to next visit with me. Will be for cholesterol and A1c. documented in this encounter [facility] Work Phone: 07-18-2024 Evaluation + Plan note Associated Problem(s): Asthma follows with pulmonology. Remain on Trelegy and has nebuizer. [facility] Work Phone: 07-18-2024 Miscellaneous Notes Associated Problem(s): Asthma follows with pulmonology. Remain on Trelegy and has nebuizer. Associated Problem(s): Permanent atrial fibrillation (Multi) Remain on Warfarin. Monday, Monday and Monday- 2.5 mg Monday, , Monday and Monday- 1.25 mg Associated Problem(s): Type 2 diabetes mellitus, without long-term current use of insulin (Multi) Fingerstick A1c was 7.0% Start Metformin 500 mg daily. Recheck A1c in 3 months. Discussed side effects of nausea or diarrhea. Associated Problem(s): Essential hypertension Controlled Remain on Lisinopril 10 mg daily and Cardizem 240 mg q12h Associated Problem(s): Hypercholesterolemia Remain on Pravastatin 40 mg daily Associated Problem(s): Spinal stenosis of lumbar region with neurogenic claudication Remain on Tramadol 50 mg q8h PRN. Last refilled 06/04/24 #90 tablets no refills. I have personally reviewed the [place]AR[place] report for this patient. I have considered the risks of abuse, dependence, addiction and diversion. I believe that it is clinically appropriate for this patient to be prescribed this medication. Controlled substance agreement due today documented in this encounter [facility] Work Phone: 07-18-2024 Evaluation + Plan note Associated Problem(s): Permanent atrial fibrillation (Multi) Remain on Warfarin. Monday, Monday and Monday- 2.5 mg Monday, , Monday and Monday- 1.25 mg [facility] Work Phone: 07-18-2024 Evaluation + Plan note Associated Problem(s): Type 2 diabetes mellitus, without long-term current use of insulin (Multi) Fingerstick A1c was 7.0% Start Metformin 500 mg daily. Recheck A1c in 3 months. Discussed side effects of nausea or diarrhea. [facility] Work Phone: 07-18-2024 Evaluation + Plan note Associated Problem(s): Essential hypertension Controlled Remain on Lisinopril 10 mg daily and Cardizem 240 mg q12h [facility] Work Phone: 07-18-2024 Evaluation + Plan note Associated Problem(s): Hypercholesterolemia Remain on Pravastatin 40 mg daily [facility] Work Phone: 07-18-2024 Evaluation + Plan note Associated Problem(s): Spinal stenosis of lumbar region with neurogenic claudication Remain on Tramadol 50 mg q8h PRN. Last refilled 06/04/24 #90 tablets no refills. I have personally reviewed the [place]AR[place] report for this patient. I have considered the risks of abuse, dependence, addiction and diversion. I believe that it is clinically appropriate for this patient to be prescribed this medication. Controlled substance agreement due today [facility] Work Phone: 07-17-2024 Consult note [facility] 07-17-2024 History and physical note Note Date/Time July 17, 2024 11:06am [facility] Medical Records Department [address] [place] [address] History & Physical Exam 07/17/24 1104 MR#: [id number] Acct: [id number] Name: PAU MUÑOZ Rep #:[id number] : 1950 74 From: Nawaf Mccarthy MD PCP: Dr. Ronit Doan, DO Status:REG S DC Location: [place] [address] HPI - General General Date of Admission: 07/17/24 Date of Service: 07/17/24 Chief Complaint: Right breast lump HPI Narrative PAU MUÑOZ, is a 74 F who presents for excisional biopsy/lumpectomy involving the right breast. She was recently seen in the office following ultrasound to workup a small palpable abnormality at the site of previous biopsylocation. She presents today for excisional biopsy/lumpectomy [facility] Medical History Blood disorder Wears hearing aid Wears glasses Anxiety Arthritis Easy bruising Excessive bleeding Back pain Dietary restriction Gastric reflux Non-smoker Shortness of breath on exertion Asthma History of CHF (congestive heart failure) History of edema History of echocardiogram Hypertension Cardiology follow-up encounter History of pacemaker History of atrial fibrillation Abnormal ultrasound of breast Lump of right breast Abnormal mammogram Bilateral cataracts Home Medications ?Medication ?Instructions ?Recorded ?Last Taken ?Type acetaminophen 325 mg tablet 325 mg PO ONCE PRN pain Unknown History (Tylenol) cetirizine 10 mg tablet (Zyrtec) 10 mg PO QDAY PRN all ergy symptoms 07/11/24 Unknown History diltiazem HCl 240 mg 240 mg PO BID 07/11/2407/17 08:00 History capsule,extended release 24 hr (Cardizem CD) esomeprazole magnesium 20 mg 20 mg PO QDAY 07/11/24 08:00 History capsule,delayed release (Nexium) fluticasone fur. 100 mcg-umeclid 1 inh inhalation Q24H 07/11/24 Unknown History 62.5 mcg-vilant 25 mcg inhalat.powder (Trelegy Ellipta) furosemide 20 mg tablet (Lasix) 20 mg PO QPM 07/11/24 Unknown History furosemide 40 mg tablet (Lasix) 40 mg PO QAM 07/11/24 Unknown History lactobacillus combination no.4 3 3,000 mmu cells PO QD AY 07/11/24 Unknown History billion cell capsule (Probiotic) levalbuterol tartrate 45 2 inh inhalation Q6H 5 Unknown History mcg/actuation aerosol inhaler (Xopenex HFA) lisinopril 10 mg tablet 10 mg PO QDAY 07/11/24 Unkno wn History tramadol 25 mg tablet 25 mg PO Q6H PRN pain Unknown History warfarin 2 mg tablet 2.5 mg PO MOWEFR 07/11/24 History ipratropium 0.5 mg-albuterol 3 mg 3 ml inhalation PRN 07/15/24 Unknown History (2.5 mg base)/3 mL nebulization soln magnesium gluconate 27.5 mg 27.5 mg PO DAILY 07/15/24 07/16/24 History magnesium (500 mg) tablet pravastatin 40 mg tablet 40 mg PO QHS 07/15/24 Unknow n History warfarin 2.5 mg tablet 1.25 mg PO SUTUTHSA 07/15/24 07/11/24 History Allergy/AdvReac Type Severity Reaction Status Date / Time levofloxacin (From Levaquin) Allergy Hives Verified 07/17/24 10:21 Iodinated Contrast Media AdvReac Severe Other Verified 07/17/24 10:21 (contrast dye - iodinated) cephalexin (From Keflex) AdvReac Hives Verified 07/17/24 10:21 Sulfa (Sulfonamide AdvReac Hives Verified 07/17/24 10:21 Antibiotics) sulfamethoxazole (From AdvReac Hives Verified 07/17/24 10:21 Bactrim) trimethoprim (From Bactrim) AdvReac Hives Verified 07/17/24 10:21 Family History Mother Breast cancer, Onset Age: 57 Sister Breast cancer Surgical History History of carotid endarterectomy H/O right breast biopsy H/O: hysterectomy Hx of cholecystectomy History of open heart surgery Social History Smoking Status: Never smoker alcohol intake: never substance use type: does not use Vital Signs Vital Signs Vital Signs: 07/17/24 10:26 07/17/24 10:26 07/17/24 10:49 Temperature 97.8 F 97.8 F Temperature Source Temporal Pulse Rate 61 61 Respiratory Rate 16 16 Respiratory Pattern Normal Blood Pressure 126/48 H 126/48 H Blood Pressure Mean 74 Blood Pressure Source Monitor Blood Pressure Position Sitting Blood Pressure Location Left Arm Pulse Ox 100 100 Oxygen Delivery Method Room Air Weight Weight: 194 lb 0.108 oz Body Mass Index (BMI) 37.8 Physical Exam Const alert, oriented x3 and no apparent distress Assessment & Plan Assessment/Plan (1) Abnormal ultrasound of breast: PLAN: Plan Right breast excisional biopsy/lumpectomy to be performed today. We reviewed the details of the planned procedure and she wishes to proceed. Surgery will begin shortly Charges/Coding Visit Charges Inpatient E&M: 92158 Init Hosp L1 07/17/24 1106 <Electronically signed by Nawaf Mccarthy MD> Cosigner Signature (if applicable): CC: Dr. Ronit Doan DO; Dr. Nawaf Mccarthy MD~ Signed [facility] Work Phone: [phone]) 579-323103-12-2025 Consult note Author Moy Blair [facility] Note Date/Time July 17, 2024 10: 49am [facility] Medical Records Department [address] [place] [address] Pre-Anesthesia Evaluation 07/17/24 1048 MR#: [id number] Acct: [id number] Name: PAU MUÑOZ Rep #:[id number] : 1950 74 From: Moy Blair MD PCP: Dr. Ronit Doan DO Status:REG S DC Y Race: C Location: [place] [address] ASA Classification* ASA Classification ASA Classification: 3 Assessment & Plan Anesthesia* Anesthesia Assessment Anesthesia Assessment: Discussed sedation and/or anesthesia options, risks, benefits, and alternatives with patient/parents/legal guardian/POA. Questions invited. The patient/parents/legal guardian/POA seems to understand and agrees to proceedwith anesthesia plan. Reviewed the physical assessment, medical history, allergy history and patient home medications list prior to surgery/procedure/anesthetic and documented any changes. Performed airway and anesthesia risk assessments. 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 When Was Last Pacemaker Check QUESTION #4 FULL TEXT: You/Your Family Experience fever (hyperthermia) with Anesthesia Last Oral Intake Last Oral intake: Last Oral Intake NPO since 08:00 07/17/24 10:26 Meds taken in AM with sips of Yes 07/17/24 10:26 water? Meds patient instructed to take am of surgery PONV PONV - designer and patternmaker: PONV - designer and patternmaker Female Yes 07/15/24 13:26 HX of Motion Sickness No 07/15/24 13:26 HX of N/V After Surgery No 07/15/24 13:26 Non-Smoker Yes 07/15/24 13:26 Duration of Surgery greater No 07/15/24 13:26 than 60 minutes Number of Risk Factors 2 07/15/24 13:26 PONV Score Moderate Risk 07/15/24 13:26 Height & Weight Height & Weight: Anesthesia: Height & Weight Height 5 ft 07/17/24 10:26 Weight: 88 kg 07/17/24 10:26 Body Mass Index (BMI) 37.8 07/17/24 10:26 Respiratory Assessment Respiratory Assessment - designer and patternmaker: Respiratory Tract Infection Hx - designer and patternmaker Hx Respiratory Tract Infection No 07/15/24 13:26 STOP Sleep Apnea STOP Sleep Apnea - designer and patternmaker: STOP Sleep Apnea - designer and patternmaker Hx Hypertension Yes: CONTROLLED ON MED 07/15/24 13:26 Hx Sleep Apnea No 07/15/24 13:26 CPAP BIPAP Do you snore loudly (louder No 07/15/24 13:26 than talking or can be heard Do you often feel tired/ No 07/15/24 13:26 fatigued/ sleepy during daytime? Has anyone observed you stop No 07/15/24 13:26 breathing during sleep? STOP Results Negative 07/15/24 13:26 QUESTION #5 FULL TEXT : Do you snore loudly (louder than talking or can be heard through closed doors)? 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 Specify any problems Hx of Preganancy in last 3 No 07/15/24 13:26 Months Nurse Filling Out Transfusion VCHRISTIN 07/15/24 13:26 & Questions: Date: 07/15/24 07/15/24 13:26 Time: 13:27 07/15/24 13:26 Patient unable to answer at this time (ie. confused, unrespo /Reproduction History /Reproductive History - designer and patternmaker: /Reproductive Hx- designer and patternmaker Hx Now Gestational Age (in weeks): EDC: Hx Hx Para Hx Section SAB Active Medications Active Medications: Current Medications Generic Name Dose Route Start Last Admin Trade Name Freq PRN Reason Stop Dose Admin Sodium Chloride 1,000 mls @ 15 mls/hr 07/17/24 10:10 07/17/24 10:42 IV 07/22/24 23:29 15 mls/hr .Q48H ADOLFO Administration Protocol PFSH Medical History Blood disorder Wears hearing aid Wears glasses Anxiety Arthritis Easy bruising Excessive bleeding Back pain Dietary restriction Gastric reflux Non-smoker Shortness of breath on exertion Asthma History of CHF (congestive heart failure) History of edema History of echocardiogram Hypertension Cardiology follow-up encounter History of pacemaker History of atrial fibrillation Abnormal ultrasound of breast Lump of right breast Abnormal mammogram Bilateral cataracts Home Medications ?Medication ?Instructions ?Recorded ?Last Taken ?Type acetaminophen 325 mg tablet 325 mg PO ONCE PRN pain Unknown History (Tylenol) cetirizine 10 mg tablet (Zyrtec) 10 mg PO QDAY PRN all ergy symptoms 07/11/24 Unknown History diltiazem HCl 240 mg 240 mg PO BID 07/11/2407/17 08:00 History capsule,extended release 24 hr (Cardizem CD) esomeprazole magnesium 20 mg 20 mg PO QDAY 07/11/24 08:00 History capsule,delayed release (Nexium) fluticasone fur. 100 mcg-umeclid 1 inh inhalation Q24H 07/11/24 Unknown History 62.5 mcg-vilant 25 mcg inhalat.powder (Trelegy Ellipta) furosemide 20 mg tablet (Lasix) 20 mg PO QPM 07/11/24 Unknown History furosemide 40 mg tablet (Lasix) 40 mg PO QAM 07/11/24 Unknown History lactobacillus combination no.4 3 3,000 mmu cells PO QD AY 07/11/24 Unknown History billion cell capsule (Probiotic) levalbuterol tartrate 45 2 inh inhalation Q6H 5 Unknown History mcg/actuation aerosol inhaler (Xopenex HFA) lisinopril 10 mg tablet 10 mg PO QDAY 07/11/24 Unkno wn History tramadol 25 mg tablet 25 mg PO Q6H PRN pain Unknown History warfarin 2 mg tablet 2.5 mg PO MOWEFR 07/11/24 History ipratropium 0.5 mg-albuterol 3 mg 3 ml inhalation PRN 07/15/24 Unknown History (2.5 mg base)/3 mL nebulization soln magnesium gluconate 27.5 mg 27.5 mg PO DAILY 07/15/24 07/16/24 History magnesium (500 mg) tablet pravastatin 40 mg tablet 40 mg PO QHS 07/15/24 Unknow n History warfarin 2.5 mg tablet 1.25 mg PO SUTUTHSA 07/15/24 07/11/24 History Allergy/AdvReac Type Severity Reaction Status Date / Time levofloxacin (From [facility]) Allergy Hives Verified 07/17/24 10:21 Iodinated Contrast Media AdvReac Severe Other Verified 07/17/24 10:21 (contrast dye - iodinated) cephalexin (From Keflex) AdvReac Hives Verified 07/17/24 10:21 Sulfa (Sulfonamide AdvReac Hives Verified 07/17/24 10:21 Antibiotics) sulfamethoxazole (From AdvReac Hives Verified 07/17/24 10:21 Bactrim) trimethoprim (From Bactrim) AdvReac Hives Verified 07/17/24 10:21 Family History Mother Breast cancer, Onset Age: 57 Sister Breast cancer Surgical History History of carotid endarterectomy H/O right breast biopsy H/O: hysterectomy Hx of cholecystectomy History of open heart surgery Social History Smoking Status: Never smoker alcohol intake: never substance use type: does not use Review of Systems (Anesthesia) ROS Narrative System reviewed and no additional complaints, except as documented. 07/17/24 1045 <Electronically signed by Moy Blair MD > Date _ Moy Blair MD Cosigner Signature: Date CC: ~ Signed [facility] Work Phone: [phone]) 816-271003-12-2025 Procedure note [facility] Medical Records Department [address] [place] [address] Operative Report 07/17/24 1231 MR#: [id number] Acct: [id number] Name: PAU MUÑOZ Rep #:[id number] : 1950 74 From: Nawaf Mccarthy MD PCP: Dr. Ronit Doan, DO Status:REG S DC Location: [facility]07-1 Multi Select Codes Integumentary Integumentary CPT Codes: 70741 Bx [place] [address] Partial mastectomy Operative Report (Standard) Operative Information Date of Procedure: 07/17/24 Pre-Operative Diagnosis: Right breast mass/abnormal ultrasound Post-Operative Diagnosis: Same Surgery/Procedure Performed: Right breast lumpectomy/excisional biopsy public health program manager: Yes Lithopress Operator: Karina Middleton Tasks completed by list of first job ideas: Closing and Retracting Additional scheduling assistant?: No Type of Anesthesia: General and Local RN Documented Start/Stop Times: Operation Date: 07/17/24 11:30 Case Time Into Pre-Op 07/17/24 10:06 Out of Pre-Op 07/17/24 11:30 Anesthesia Start 07/17/24 11:33 Into Room 07/17/24 11:33 Procedure Start 07/17/24 11:50 Procedure Start Time: 11:50 Procedure Stop Time: 12:20 Select all DRAINS/GRAFTS/IMPLANTS that apply: None Special Medications: Clindamycin 900 mg IV. Estimated Blood Loss: 5 mL Specimen collected: Yes Description of specimen(s) removed: Right breast lumpectomy tissue Description of surgery: The patient is a 74-year-old female who was seen in the office recently with complaints of a right breast lump as well as an ultrasound that was read as abnormal. Biopsy was recommended. Patient was quick to state that she would require sedation/anesthesia should any type of biopsy need to be performed. Shehas had multiple previous excisional biopsies in the past all of which have beenbenign per her description. She had an ultrasound that showed a less than 1 cm abnormality that corresponded tothe palpable lesion in question. There was another less than 1 cm abnormality seen on ultrasound just adjacent to the original palpable lesion. This was in the same area as a previous excisional biopsy. We discussed option of ultrasound-guided core biopsy in the office under Ativan however she stated that she need to be asleep for the procedure andso we recommended an excisional biopsy to be performed in the operating room. She agreed to proceed. Patient was brought to the operating room today following informed consent. Preoperative antibiotics were given and a timeout was performed. The site was marked preoperatively. Once in the operating room a general anesthesia was induced. Once adequately sedated the arms were comfortably outstretched on arm boards. Before prepping the skin, ultrasound was used to again reidentify the ultrasound abnormalities and again this corresponded to the palpable lesion in question. The site was marked witha skin marker. The right breast and chest were then prepped and draped in the usual sterile manner.Local anesthetic was infiltrated. An ellipse incision was made. Bovie electrocautery was then used d issect down through subcutaneous tissues. Once the tissue was free, the specimen was oriented such that a long marking stitch was used to indicate the lateral aspect of the specimen and a short stitch was used to denote the superior aspect of the specimen. This was sent to pathology for permanent section. Hemostasis was excellent. The wound was copiously irrigated. The wound was then closed in layers first using 3-0 Vicryl. Then 4-0 Vicryl was runin the skin. Skin glue was then applied. 4 x 4 fluffs and an Tommy wrap were then applied for compression. She was awakened from anesthesia and taken to recovery in good condition. A UNDERCOATER was utilized as a certified first assistant. Her role included skin retraction andassistance with skinclosure. Surgical Findings: See operative description Complications Complications: No Admit VTE Documentation VTE Present on Admission: No VTE Mechan Device Prophylaxis: SCD's VTE Pharm Prophylaxis ordered?: No Reason prophylaxis not ordered: Treatment Not Indicated 07/17/24 1246 Cosigner Signature (if applicable): CC: Dr. Ronit Doan DO; Dr. Nawaf Mccarthy MD~ Signed [facility]03-12-2025 Consult note [facility] Medical Records Department [address] [place] [address] Anesthesia Postop Eval I 07/17/24 1234 MR#: [id number] Acct: [id number] Name: PAU MUÑOZ Rep #:[id number] : 1950 74 From: Zoey Aggarwal PCP: Dr. Ronit Doan DO Status:REG S DC Y Race: C Location: [place] [address] Anesthesia: Postop Eval I Current Vital Signs Temperature: 99.2 F Pulse Rate: 65 Blood Pressure: 124/50 Respiratory Rate: 16 Pulse Ox: 93 Oxygen Delivery Method: Nasal Cannula Oxygen Flow Rate (L/min): 2 Assessment Airway patent: Yes Spontaneous unlabored respirations: Yes Mental status: Awake and Calm nausea: No Vomiting: No Anesthesia Complication: No Fluid Hydration Crystalloid volume administer (ml): 700 Total IV fluid infused: 700 Progress Note Anesthesia document: Postop Eval 1 completed: Yes 07/17/24 1235 > Date _ Zoey Alexandreigner Signature: Date CC: ~ Signed [facility]03-12-2025 Discharge summary [facility] Medical Records Department [address] [facility] [place] [address] Instructions for Home/Discharge Instructions 07/17/24 1215 MR#: [id number] Acct: [id number] Name: PAU MUÑOZ Rep #:[id number] : 1950 74 From: Nawaf Mccarthy MD PCP: Dr. Ronit Doan, DO Status:REG S DC Discharge Instructions Diet Discharge Diet: Light diet - advance as tolerated Activity Discharge Activity: Return to Normal Activity and May Shower May shower in (days): 1 Ice area for (Minutes): 30 Lifting Restrictions: none Dressing / Incision Call your doctor if your incision/area has: Continuous Slow Oozing, Sudden Increased Bleeding, Increased Pain/ Swelling, Increased Redness, Foul Smelling Discharge and Swelling at the incision site Call your doctor if you observe: Fever of 101 or Higher Cleanse incision/area with: Soap & Water Additional Dressing/Incision Instructions:: remove dressing prior to showering; wear TOMMY wrap or sports bra for support / compression Follow Up Care Please Follow Up With: Nawaf Mccarthy MD When: 1-2 weeks -- call for appointment Test Results: Test results from this visit will be discussed in further detail at your follow- up appointment, if applicable. Discharge Plan Admission Primary Reason for Your Visit: right breast mass Attending Provider: Nawaf Mccarthy Primary Care Provider: Ronit Doan Instructions Print Language: Iranian Discharge Orders/Prescriptions Prescriptions: New hydrocodone-acetaminophen 5-325 mg tablet 1 tab PO Q8H PRN (Reason: pain) 4 Days Qty: 10 0RF Continued Trelegy Ellipta 100-62.5-25 mcg blister with device 1 inh inhalation Q24H lisinopril 10 mg tablet 10 mg PO QDAY levalbuterol tartrate [Xopenex HFA] 45 mcg/actuation HFA aerosol inhaler 2 inh inhalation Q6H furosemide [Lasix] 40 mg tablet 40 mg PO QAM furosemide [Lasix] 20 mg tablet 20 mg PO QPM diltiazem HCl [Cardizem CD] 240 mg capsule,extended release 24hr 240 mg PO BID tramadol 25 mg tablet 25 mg PO Q6H PRN (Reason: pain) warfarin 2 mg tablet 2.5 mg PO MOWEFR esomeprazole magnesium [Nexium] 20 mg capsule,delayed release(DR/EC) 20 mg PO QDAY Probiotic 3 billion cell capsule 3,000 mmu cells PO QDAY Rx Instructions: administer with a meal cetirizine [Zyrtec] 10 mg tablet 10 mg PO QDAY PRN (Reason: allergy symptoms) acetaminophen [Tylenol] 325 mg tablet 325 mg PO ONCE PRN (Reason: pain) ipratropium-albuterol 0.5 mg-3 mg(2.5 mg base)/3 mL solution for nebulization 3 ml inhalation PRN pravastatin 40 mg tablet 40 mg PO QHS warfarin 2.5 mg tablet 1.25 mg PO SUTUTHSA magnesium gluconate 27.5 mg magne- sium (500 mg) tablet 27.5 mg PO DAILY Referrals / Follow Up: Ronit Doan DO [Primary Care Provider] - Disposition Disposition (needs filled in before D/C Order can be placed): Home, Self Care 07/17/24 1221Srban Mccarthy MD CC: Dr. Ronit Doan DO ~ Signed [facility]03-12-2025 History and physical note [facility] Medical Records Department [address] [place] [address] History & Physical Exam 07/17/24 1104 MR#: [id number] Acct: [id number] Name: PAU MUÑOZ Rep #:[id number] : 1950 74 From: Nawaf Mccarthy MD PCP: Dr. Ronit Doan, DO Status:REG S DC Location: [place] [address] HPI - General General Date of Admission: 07/17/24 Date of Service: 07/17/24 Chief Complaint: Right breast lump HPI Narrative PAU MUÑOZ, is a 74 F who presents for excisional biopsy/lumpectomy involving the right breast. She was recently seen in the office following ultrasound to workup a small palpable abnormality at the site of previous biopsylocation. She presents today for excisional biopsy/lumpectomy [facility] Medical History Blood disorder Wears hearing aid Wears glasses Anxiety Arthritis Easy bruising Excessive bleeding Back pain Dietary restriction Gastric reflux Non-smoker Shortness of breath on exertion Asthma History of CHF (congestive heart failure) History of edema History of echocardiogram Hypertension Cardiology follow-up encounter History of pacemaker History of atrial fibrillation Abnormal ultrasound of breast Lump of right breast Abnormal mammogram Bilateral cataracts Home Medications ?Medication ?Instructions ?Recorded ?Last Taken ?Type acetaminophen 325 mg tablet 325 mg PO ONCE PRN pain Unknown History (Tylenol) cetirizine 10 mg tablet (Zyrtec) 10 mg PO QDAY PRN all ergy symptoms 07/11/24 Unknown History diltiazem HCl 240 mg 240 mg PO BID 07/11/2407/17 08:00 History capsule,extended release 24 hr (Cardizem CD) esomeprazole magnesium 20 mg 20 mg PO QDAY 07/11/24 08:00 History capsule,delayed release (Nexium) fluticasone fur. 100 mcg-umeclid 1 inh inhalation Q24H 07/11/24 Unknown History 62.5 mcg-vilant 25 mcg inhalat.powder (Trelegy Ellipta) furosemide 20 mg tablet (Lasix) 20 mg PO QPM 07/11/24 Unknown History furosemide 40 mg tablet (Lasix) 40 mg PO QAM 07/11/24 Unknown History lactobacillus combination no.4 3 3,000 mmu cells PO QD AY 07/11/24 Unknown History billion cell capsule (Probiotic) levalbuterol tartrate 45 2 inh inhalation Q6H 5 Unknown History mcg/actuation aerosol inhaler (Xopenex HFA) lisinopril 10 mg tablet 10 mg PO QDAY 07/11/24 Unkno wn History tramadol 25 mg tablet 25 mg PO Q6H PRN pain Unknown History warfarin 2 mg tablet 2.5 mg PO MOWEFR 07/11/24 History ipratropium 0.5 mg-albuterol 3 mg 3 ml inhalation PRN 07/15/24 Unknown History (2.5 mg base)/3 mL nebulization soln magnesium gluconate 27.5 mg 27.5 mg PO DAILY 07/15/24 07/16/24 History magnesium (500 mg) tablet pravastatin 40 mg tablet 40 mg PO QHS 07/15/24 Unknow n History warfarin 2.5 mg tablet 1.25 mg PO SUTUTHSA 07/15/24 07/11/24 History Allergy/AdvReac Type Severity Reaction Status Date / Time levofloxacin (From Levaquin) Allergy Hives Verified 07/17/24 10:21 Iodinated Contrast Media AdvReac Severe Other Verified 07/17/24 10:21 (contrast dye - iodinated) cephalexin (From Keflex) AdvReac Hives Verified 07/17/24 10:21 Sulfa (Sulfonamide AdvReac Hives Verified 07/17/24 10:21 Antibiotics) sulfamethoxazole (From AdvReac Hives Verified 07/17/24 10:21 Bactrim) trimethoprim (From Bactrim) AdvReac Hives Verified 07/17/24 10:21 Family History Mother Breast cancer, Onset Age: 57 Sister Breast cancer Surgical History History of carotid endarterectomy H/O right breast biopsy H/O: hysterectomy Hx of cholecystectomy History of open heart surgery Social History Smoking Status: Never smoker alcohol intake: never substance use type: does not use Vital Signs Vital Signs Vital Signs: 07/17/24 10:26 07/17/24 10:26 07/17/24 10:49 Temperature 97.8 F 97.8 F Temperature Source Temporal Pulse Rate 61 61 Respiratory Rate 16 16 Respiratory Pattern Normal Blood Pressure 126/48 H 126/48 H Blood Pressure Mean 74 Blood Pressure Source Monitor Blood Pressure Position Sitting Blood Pressure Location Left Arm Pulse Ox 100 100 Oxygen Delivery Method Room Air Weight Weight: 194 lb 0.108 oz Body Mass Index (BMI) 37.8 Physical Exam Const alert, oriented x3 and no apparent distress Assessment & Plan Assessment/Plan (1) Abnormal ultrasound of breast: PLAN: Plan Right breast excisional biopsy/lumpectomy to be performed today. We reviewed the details of the planned procedure and she wishes to proceed. Surgery will begin shortly Charges/Coding Visit Charges Inpatient E&M: 67274 Init Hosp L1 07/17/24 1106 Cosigner Signature (if applicable): CC: Dr. Ronit Doan DO; Dr. Nawaf Mccarthy MD~ Signed [facility]03-12-2025 [facility] Medical Records Department [address] [place] [address] History Physical Exam 07/17/24 1104 MR#: [id number] Acct: [id number] Name: PAU MUÑOZ Rep #: [id number] : 1950 74 From: Nawaf Mccarthy MD PCP: Dr. Ronit Doan DO Status:[facility] Location: [place] [address] HPI - General General Date of Admission: 07/17/24 Date of Service: 07/17/24 Chief Complaint: Right breast lump HPI Narrative PAU MUÑOZ, is a 74 F who presents for excisional biopsy/lumpectomy involving the right breast. She was recently seen in the office following ultrasound to workup a small palpable abnormality at the site of previous biopsy location. She presents today for excisional biopsy/lumpectomy [facility] Medical History Blood disorder Wears hearing aid Wears glasses Anxiety Arthritis Easy bruising Excessive bleeding Back pain Dietary restriction Gastric reflux Non-smoker Shortness of breath on exertion Asthma History of CHF (congestive heart failure) History of edema History of echocardiogram Hypertension Cardiology follow-up encounter History of pacemaker History of atrial fibrillation Abnormal ultrasound of breast Lump of right breast Abnormal mammogram Bilateral cataracts Home Medications ???Medication ???Instructions ???Recorded ???Last Taken ???Type acetaminophen 325 mg tablet 325 mg PO ONCE PRN pain 07/11/24 U nknown History (Tylenol) cetirizine 10 mg tablet (Zyrtec) 10 mg PO QDAY PRN allergy symptoms 07/11/24 Unknown History diltiazem HCl 240 mg 240 mg PO BID 07/11/24 07/17/24 08 :00 History capsule,extended release 24 hr (Cardizem CD) esomeprazole magnesium 20 mg 20 mg PO QDAY 07/11/24 07/17/24 08 :00 History capsule,delayed release (Nexium) fluticasone fur. 100 mcg-umeclid 1 inh inhalation Q24H 07/11/24 Unk nown History 62.5 mcg-vilant 25 mcg inhalat.powder (Trelegy Ellipta) furosemide 20 mg tablet (Lasix) 20 mg PO QPM 07/11/24 Unknown Hist ory furosemide 40 mg tablet (Lasix) 40 mg PO QAM 07/11/24 Unknown Hist ory lactobacillus combination no.4 3 3,000 mmu cells PO QDAY 07/11/24 U nknown History billion cell capsule (Probiotic) levalbuterol tartrate 45 2 inh inhalation Q6H 07/11/24 Unkn own History mcg/actuation aerosol inhaler (Xopenex HFA) lisinopril 10 mg tablet 10 mg PO QDAY 07/11/24 Unknown His tory tramadol 25 mg tablet 25 mg PO Q6H PRN pain 07/11/24 Unk nown History warfarin 2 mg tablet 2.5 mg PO MOWEFR 07/11/24 07/11/24 History ipratropium 0.5 mg-albuterol 3 mg 3 ml inhalation PRN 07/15/24 Unkn own History (2.5 mg base)/3 mL nebulization soln magnesium gluconate 27.5 mg 27.5 mg PO DAILY 07/15/24 07/16/24 History magnesium (500 mg) tablet pravastatin 40 mg tablet 40 mg PO QHS 07/15/24 Unknown Hist ory warfarin 2.5 mg tablet 1.25 mg PO SUTUTHSA 07/15/2407/11 History Allergy/AdvReac Type Severity Reaction Status Date / Time levofloxacin (From [facility]) Allergy Hives Verified 07/17/24 10:21 Iodinated Contrast Media AdvReac Severe Other Verified 07/17/24 10:21 (contrast dye - iodinated) cephalexin (From Keflex) AdvReac Hives Verified 07/17/24 10:21 Sulfa (Sulfonamide AdvReac Hives Verified 07/17/24 10:21 Antibiotics) sulfamethoxazole (From AdvReac Hives Verified 07/17/24 10:21 Bactrim) trimethoprim (From Bactrim) AdvReac Hives Verified 07/17/24 10:21 Family History Mother Breast cancer, Onset Age: 57 Sister Breast cancer Surgical History History of carotid endarterectomy H/O right breast biopsy H/O: hysterectomy Hx of cholecystectomy History of open heart surgery Social History Smoking Status: Never smoker alcohol intake: never substance use type: does not use Vital Signs Vital Signs Vital Signs: 07/17/24 10:26 07/17/24 10:26 07/17/24 10:49 Temperature 97.8 F 97.8 F Temperature Source Temporal Pulse Rate 61 61 Respiratory Rate 16 16 Respiratory Pattern Normal Blood Pressure 126/48 H 126/48 H Blood Pressure Mean 74 Blood Pressure Source Monitor Blood Pressure Position Sitting Blood Pressure Location Left Arm Pulse Ox 100 100 Oxygen Delivery Method Room Air Weight Weight: 194 lb 0.108 oz Body Mass Index (BMI) 37.8 Physical Exam Const alert, oriented x3 and no apparent distress Assessment Plan Assessment/Plan (1) Abnormal ultrasound of breast: PLAN: Plan Right breast excisional biopsy/lumpectomy to be performed today. We reviewed the details of the planned procedure and she wishe (more content not included)...[facility]03-12-2025 Consult note [facility] Medical Records Department [address] [place] [address] Pre-Anesthesia Evaluation 07/17/24 1048 MR#: [id number] Acct: [id number] Name: LEATHAPAU K Rep #:[id number] : 1950 74 From: Moy Blair MD PCP: Dr. Ronit Doan, DO Status:REG S DC Y Race: C Location: [place] [address]- ASA Classification* ASA Classification ASA Classification: 3 Assessment & Plan Anesthesia* Anesthesia Assessment Anesthesia Assessment: Discussed sedation and/or anesthesia options, risks, benefits, and alternatives with patient/parents/legal guardian/POA. Questions invited. The patient/parents/legal guardian/POA seems to understand and agrees to proceedwith anesthesia plan. Reviewed the physical assessment, medical history, allergy history and patient home medications list prior to surgery/procedure/anesthetic and documented any changes. Performed airway and anesthesia risk assessments. 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 When Was Last Pacemaker Check QUESTION #4 FULL TEXT: You/Your Family Experience fever (hyperthermia) with Anesthesia Last Oral Intake Last Oral intake: Last Oral Intake NPO since 08:00 07/17/24 10:26 Meds taken in AM with sips of Yes 07/17/24 10:26 water? Meds patient instructed to take am of surgery PONV PONV - designer and patternmaker: PONV - designer and patternmaker Female Yes 07/15/24 13:26 HX of Motion Sickness No 07/15/24 13:26 HX of N/V After Surgery No 07/15/24 13:26 Non-Smoker Yes 07/15/24 13:26 Duration of Surgery greater No 07/15/24 13:26 than 60 minutes Number of Risk Factors 2 07/15/24 13:26 PONV Score Moderate Risk 07/15/24 13:26 Height & Weight Height & Weight: Anesthesia: Height & Weight Height 5 ft 07/17/24 10:26 Weight: 88 kg 07/17/24 10:26 Body Mass Index (BMI) 37.8 07/17/24 10:26 Respiratory Assessment Respiratory Assessment - designer and patternmaker: Respiratory Tract Infection Hx - designer and patternmaker Hx Respiratory Tract Infection No 07/15/24 13:26 STOP Sleep Apnea STOP Sleep Apnea - designer and patternmaker: STOP Sleep Apnea - designer and patternmaker Hx Hypertension Yes: CONTROLLED ON MED 07/15/24 13:26 Hx Sleep Apnea No 07/15/24 13:26 CPAP BIPAP Do you snore loudly (louder No 07/15/24 13:26 than talking or can be heard Do you often feel tired/ No 07/15/24 13:26 fatigued/ sleepy during daytime? Has anyone observed you stop No 07/15/24 13:26 breathing during sleep? STOP Results Negative 07/15/24 13:26 QUESTION #5 FULL TEXT : Do you snore loudly (louder than talking or can be heard through closeddoors)? 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 Specify any problems Hx of Preganancy in last 3 No 07/15/24 13:26 Months Nurse Filling Out Transfusion VCHRISTIN 07/15/24 13:26 & Questions: Date: 07/15/24 07/15/24 13:26 Time: 13:27 07/15/24 13:26 Patient unable to answer at this time (ie. confused, unrespo /Reproduction History /Reproductive History - designer and patternmaker: /Reproductive Hx- designer and patternmaker Hx Now Gestational Age (in weeks): EDC: Hx Hx Para Hx Section SAB Active Medications Active Medications: Current Medications Generic Name Dose Route Start Last Admin Trade Name Freq PRN Reason Stop Dose Admin Sodium Chloride 1,000 mls @ 15 mls/hr 07/17/24 10:10 07/17/24 10:42 IV 07/22/24 23:29 15 mls/hr .Q48H ADOLFO Administration Protocol [facility] Medical History Blood disorder Wears hearing aid Wears glasses Anxiety Arthritis Easy bruising Excessive bleeding Back pain Dietary restriction Gastric reflux Non-smoker Shortness of breath on exertion Asthma History of CHF (congestive heart failure) History of edema History of echocardiogram Hypertension Cardiology follow-up encounter History of pacemaker History of atrial fibrillation Abnormal ultrasound of breast Lump of right breast Abnormal mammogram Bilateral cataracts Home Medications ?Medication ?Instructions ?Recorded ?Last Taken ?Type acetaminophen 325 mg tablet 325 mg PO ONCE PRN pain Unknown History (Tylenol) cetirizine 10 mg tablet (Zyrtec) 10 mg PO QDAY PRN all ergy symptoms 07/11/24 Unknown History diltiazem HCl 240 mg 240 mg PO BID 07/11/2407/17 08:00 History capsule,extended release 24 hr (Cardizem CD) esomeprazole magnesium 20 mg 20 mg PO QDAY 07/11/24 08:00 History capsule,delayed release (Nexium) fluticasone fur. 100 mcg-umeclid 1 inh inhalation Q24H 07/11/24 Unknown History 62.5 mcg-vilant 25 mcg inhalat.powder (Trelegy Ellipta) furosemide 20 mg tablet (Lasix) 20 mg PO QPM 07/11/24 Unknown History furosemide 40 mg tablet (Lasix) 40 mg PO QAM 07/11/24 Unknown History lactobacillus combination no.4 3 3,000 mmu cells PO QD AY 07/11/24 Unknown History billion cell capsule (Probiotic) levalbuterol tartrate 45 2 inh inhalation Q6H 5 Unknown History mcg/actuation aerosol inhaler (Xopenex HFA) lisinopril 10 mg tablet 10 mg PO QDAY 07/11/24 Unkno wn History tramadol 25 mg tablet 25 mg PO Q6H PRN pain Unknown History warfarin 2 mg tablet 2.5 mg PO MOWEFR 07/11/24 History ipratropium 0.5 mg-albuterol 3 mg 3 ml inhalation PRN 07/15/24 Unknown History (2.5 mg base)/3 mL nebulization soln magnesium gluconate 27.5 mg 27.5 mg PO DAILY 07/15/24 07/16/24 History magnesium (500 mg) tablet pravastatin 40 mg tablet 40 mg PO QHS 07/15/24 Unknow n History warfarin 2.5 mg tablet 1.25 mg PO SUTUTHSA 07/15/24 07/11/24 History Allergy/AdvReac Type Severity Reaction Status Date / Time levofloxacin (From Levaquin) Allergy Hives Verified 07/17/24 10:21 Iodinated Contrast Media AdvReac Severe Other Verified 07/17/24 10:21 (contrast dye - iodinated) cephalexin (From Keflex) AdvReac Hives Verified 07/17/24 10:21 Sulfa (Sulfonamide AdvReac Hives Verified 07/17/24 10:21 Antibiotics) sulfamethoxazole (From AdvReac Hives Verified 07/17/24 10:21 Bactrim) trimethoprim (From Bactrim) AdvReac Hives Verified 07/17/24 10:21 Family History Mother Breast cancer, Onset Age: 57 Sister Breast cancer Surgical History History of carotid endarterectomy H/O right breast biopsy H/O: hysterectomy Hx of cholecystectomy History of open heart surgery Social History Smoking Status: Never smoker alcohol intake: never substance use type: does not use Review of Systems (Anesthesia) ROS Narrative System reviewed and no additional complaints, except as documented. 07/17/24 1049 > Date _ Moy Jara Signature: Date CC: ~ Signed [facility]03-06-2025 Evaluation note* Diagnosis Onset Date Resolution Status Admit Date Abnormal ultrasound of breast acute July 11, 2024 9:01am Abnormal ultrasound of breast acute July 17, 2024 9:46am [facility] Work Phone: [phone] 602-689002-13-2025 Evaluation + Plan note* Assessment & Plan Note - Charisma Siddiqi - 06/20/2024 11:10 AM ESTAssociated Problem(s): Mass of upper inner quadrant of right breast I do not feel this discoloration is anything significant Counseled to schedule mammogram Sent referral to General surgery- Breast Specialist. [facility] Work Phone: [phone] Miscellaneous Notes* Assessment & Plan Note - Charisma Siddiqi - 06/20/2024 11:10 AM ESTAssociated Problem(s): Mass of upper inner quadrant of right breast I do not feel this discoloration is anything significant Counseled to schedule mammogram Sent referral to General surgery- Breast Specialist. * Assessment & Plan Note - Charisma Siddiqi - 06/20/2024 10:58 AM ESTAssociated Problem(s): Warfarin-induced coagulopathy (Multi) (Deleted) Resume on Warfarin 2.5mg and Warfarin 1.25 mg daily * Assessment & Plan Note - Charisma Siddiqi - 06/20/2024 10:52 AM ESTAssociated Problem(s): Essential hypertension BP today was Remain on Lisinopril 10 mg daily and Cardizem 240 mg every 12 hours * Assessment & Plan Note - Ronit Doan DO - 06/20/2024 10:15 AM EST Associated Problem(s): On warfarin therapy >>ASSESSMENT AND PLAN FOR WARFARIN-INDUCED COAGULOPATHY (MULTI) WRITTEN ON 06/20/2024 11:00 FLORENCE SIDDIQI Resume on Warfarin 2.5mg and Warfarin 1.25 mg daily [facility] Work Phone: [phone] Evaluation + Plan note* Assessment & Plan Note - Charisma Siddiqi - 06/20/2024 10:58 AM ESTAssociated Problem(s): Warfarin-induced coagulopathy (Multi) (Deleted) Resume on Warfarin 2.5mg and Warfarin 1.25 mg daily [facility] Work Phone: [phone] Evaluation + Plan note* Assessment & Plan Note - Charisma Siddiqi - 06/20/2024 10:52 AM ESTAssociated Problem(s): Essential hypertension BP today was Remain on Lisinopril 10 mg daily and Cardizem 240 mg every 12 hours [facility] Work Phone: [phone] 575-458802-13-2025 Evaluation + Plan note* Assessment & Plan Note - Ronit Doan DO - 06/20/2024 10:15 AM ESTAssociated Problem(s): On warfarin therapy >>ASSESSMENT AND PLAN FOR WARFARIN-INDUCED COAGULOPATHY (MULTI) WRITTEN ON 06/20/2024 11:00 FLORENCE SIDDIQI Resume on Warfarin 2.5mg and Warfarin 1.25 mg daily [facility] Work Phone: [phone] History of Present illness Narrative* Ronit Doan DO - 06/20/2024 10:15 AM EST Subjective Patient ID: Nancy Muñoz is a 74 y.o. female who presents for sick visit HPI She found a lump in the right breast that is tender to touch. It is under a scar from a prior bx She is concerned about a pink discoloration over the area as well She has not made her mammogram appointment yet for the lump in her breast States she has always had "lumpy breast" She has had two biopsies done on right breast.: both benign Also INR was 1.8 : was lower. No changes per pt in diet or meds Review of Systems Skin: Red sore/lump on her right breast that is tender to touch Current Outpatient Medications: cetirizine (ZyrTEC) 10 mg capsule, Take 1 capsule (10 mg) by mouth once daily., Disp: , Rfl: dilTIAZem CD (Cardizem CD) 240 mg 24 hr capsule, Take 1 capsule (240 mg) by mouth every 12 hours., Disp: 180 capsule, Rfl: 3 esomeprazole (NexIUM) [address] capsule, Take 1 capsule (20 mg) by mouth once daily in the morning. Take before meals. Do not open capsule. Pt gets otc, Disp: , Rfl: imtbmpleytw-uyreoolzi-otzndsfs (Trelegy Ellipta) 200-62.5-25 mcg blister with device, Inhale 1 puffonce daily., Disp: , Rfl: furosemide (Lasix) 20 mg tablet, Take 2 tablets (40 mg) by mouth once daily in the morning AND 1 tablet (20 mg) once daily in the evening. Every evening., Disp: 270 tablet, Rfl: 3 gabapentin (Neurontin) 100 mg capsule, Take 1 capsule (100 mg) by mouth 3 times a day., Disp: , Rfl: ipratropium-albuteroL (Duo-Neb) 0.5-2.5 mg/3 mL nebulizer solution, Take 3 mL by nebulization every6 hours., Disp: 180 mL, Rfl: 3 levalbuterol (Xopenex) 45 mcg/actuation inhaler, Inhale 2 puffs every 4 hours if needed for wheezing., Disp: , Rfl: lisinopril 10 mg tablet, Take 1 tablet (10 mg) by mouth once daily., Disp: 90 tablet, Rfl: 3 magnesium oxide 500 mg capsule, Take 1 capsule (500 mg) by mouth once daily., Disp: , Rfl: methocarbamol (Robaxin) 750 mg tablet, Take 1 tablet (750 mg) by mouth 3 times a day as needed for muscle spasms., Disp: 12 tablet, Rfl: 0 nebulizer accessories [facility] [place], Dispense Nebulizer tubing and mouthpiece at quantity allowed per Medicare per month with one year of refills, Disp: 1 each, Rfl: 11 nitroglycerin (Nitrostat) 0.4 mg SL tablet, Place 1 tablet (0.4 mg) under the tongue every 5 minutes if needed for chest pain., Disp: , Rfl: pravastatin (Pravachol) 40 mg tablet, Take 1 tablet (40 mg) by mouth once daily., Disp: 90 tablet, Rfl: 2 traMADol (Ultram) 50 mg tablet, Take 1 tablet (50 mg) by mouth every 8 hours if needed for severe pain (7 - 10)., Disp: 90 tablet, Rfl: 0 warfarin (Coumadin) 2.5 mg tablet, Take once daily as directed by physician., Disp: 90 tablet, Rfl:3 warfarin sodium (COUMADIN ORAL), Take 1.25 mg by mouth once daily. Takes Monday//monday,Disp: , Rfl: Objective BP 128/71 Pulse 84 Resp 16 Ht 1.524 m (5') Wt 88 kg (194 lb) BMI 37.89 kg/m Exam of bilateral breast: She did have a 1 cm oval rubbery mobile lump that was palpable slightly below the skin surface in the medial upper quadrant of her right breast. This is the lump that she palpated herself. It is directly underneath a scar from a biopsy. There are no other palpable masses in her right breast. She has a small area of diffuse increased pink discoloration in her skin on the breast that I do not think is significant. And then Exam of her left breast was normal without mass or discoloration. 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 Relevant Orders Referral to General Surgery Please return to see me in 2 weeks for nurse visit for INR and keep next visit with myself in July Scribe Attestation By signing my name below, I, Selvin Martinez attest that this documentation has been prepared under the direction and in the presence of Ronit Mccann DO. documented in this [facility] Work Phone: [phone] Instructions* Patient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 consolidation. There is no pulmonary edema. There is no evidence of pleural effusion. There is no evidence of pneumothorax. No acute fracture is identified. IMPRESSION: No acute abnormality is identified. Interpreted by: Diego Vincent Preliminary Report By: Diego Vincent Electronically signed By Diego Vincent Dictated Date: 01/03/2024 9:56:44 PM Prelim Date: 01/03/2024 9:58:07 PM Sign Date: 01/03/2024 9:58:07 PM Ordering Provider: [facility]07-16-2024 Note HNO ID: [id number] Author: HÉCTOR FAIRCHILD MD Service: ? Author Type: Anesthesiologist Type: Progress Notes Filed: 11/22/2023 15:16 Note Text: SUBJECTIVE: The patient presents to [facility] Pain Management Department for a follow-up appointment for pain in the "lower back" improving Current pain intensity is 2 on a scale of 0 -10. Pain character: aching Exacerbating factors: standing and walking Alleviating factors: sitting Medications For Pain: - Opioids: yes, tramadol - NSAIDs: no - Anti-Depressants: yes - Anti-Convulsants: yes, gabapentin - Others: Opioid agreement: No OARRS report reviewed by the physician Is the patient receiving analgesia/pain relief from the current medications? (YES) Has the current medication improved activities such as walking or standing? (YES) Have the current medications been associated with any adverse events? (no) Illicit drug use? (no) Physical Therapy in the last 6 months?: yes FH: patient denies any family history of the chief complaint for this visit SH: denies illicit drug use Last took opioid medication yesterday Questionnaires: Patient Entered Questionnaires PROMIS Score Percentiles 09/16/2016 PROMIS Global Health Scale Physical Health Percentile 7 Mental Health Percentile 9 Percentiles provide an indication of how the patient's score ranks in relation to the general population. Higher percentile rankings indicate better function/quality of life. 50th percentile is the average of the general population and indicates half of respondents had a worse score. > 31st percentile is within normal limits or better * < 31st percentile is at least ? SD worse than population, which may be clinically relevant < 16th percentile is at least 1 SD worse than population and warrants attention Depression Screening: PHQ-9 Self-Harm (Item 9) response options: 0 Not at all 1 Several days 2 More than half the days 3 Nearly every day PHQ-9 Levels: 0-4 Minimal depression 5-9 Mild depression 10-14 Moderate depression 15-19 Moderately severe depression 20-27 Severe depression No data to display (0-4) minimal depression, (5-9) mild depression, (10-14) moderate depression, (15-19) moderately severe depression, (20-27) severe depression No data to display No data to display The following information was personally collected by me, Héctor Fairchild MD on November 21, 2023 8:37 AM (electronically signed): REVIEW OF SYSTEMS: GENERAL: (-)weight loss, (-)malaise, (-)fevers. HEENT:(-)headaches. NECK: (-) for lumps, goiter, (-)pain and (-)significant neck swelling. RESPIRATORY: (-) for cough, wheezing or shortness of breath. CARDIOVASCULAR: (-) for chest pain, leg swelling or palpitations. GI: (-) abdominal discomfort, (-)blood in stools or black stools or change in bowel habits. MUSCULOSKELETAL: (+)joint pain , (-)swelling, (+)back pain, (-)muscle pain. SKIN: (-) for lesions, rash, and itching. PSYCH: (-)sleep disturbance, (-)mood disorder, (-)recent psychosocial stressors. HEMATOLOGY/LYMPHOLOGY: (-) for prolonged bleeding, bruising easily or swollen nodes. NEURO: (-)syncope, paralysis, seizures or tremors. All other reviewed and negative other than HPI and as specified above. OBJECTIVE: BP 127/58 Pulse 77 Resp 18 Ht 152.4 cm (5') Wt 84.8 kg (187 lb) BMI 36.52 kg/m? GENERAL: Well appearing. No acute distress PSYCH: Mood and affect is appropriate. Awake, alert, and oriented x 3 SKIN: Skin color, texture, turgor normal, no rashes or lesions Otolaryng/HEENT: Normocephalic, atraumatic. EOM intact RESP: Respirations are unlabored CARD: Regular rate. Cap refill <2s. Extremities pink and well perfused at nailbed. GI: deferred MSK: Bilateral upper and lower extremity strength is normal and symmetric. No atrophy or tone abnormalities are noted. Cervical: (-)pain to palpation over the cervical paraspinal muscles. Lumbar: Straight leg raising is negative. (+) pain to palpation lumbar paraspinal muscles. facet loading is (+) bilaterally. No pain to palpation over the PSIS. Gait: Gait is antalgic NEURO: Bilateral upper and lower extremity coordination are intact. Muscle stretch reflexes are physiologic and symmetric. No loss of sensation ASSESSMENT AND MEDICAL DECISION MAKING: The patient is a 73 year old female with: low back and leg pain Dx: Spinal stenosis, lumbar region with neurogenic claudication (primary encounter (more content not included)...[facility]07-16-2024 History of Present illness Narrative* Héctor Fiarchild MD - 11/21/2023 8:37 AM EDT Images from the original note were not included. SUBJECTIVE: The patient presents to [facility] Department for a follow-up appointmentfor pain in the "lower back" improving Current pain intensity is 2 on a scale of 0 -10. Pain character: aching Exacerbating factors: standing and walking Alleviating factors: sitting Medications For Pain: - Opioids: yes, tramadol - NSAIDs: no - Anti-Depressants: yes - Anti-Convulsants: yes, gabapentin - Others: Opioid agreement: No OARRS report reviewed by the physician Is the patient receiving analgesia/pain relief from the current medications? (YES) Has the current medication improved activities such as walking or standing? (YES) Have the current medications been associated with any adverse events? (no) Illicit drug use? (no) Physical Therapy in the last 6 months?: yes FH: patient denies any family history of the chief complaint for this visit SH: denies illicit drug use Last took opioid medication yesterday Questionnaires: Patient Entered Questionnaires PROMIS Score Percentiles 09/16/2016 PROMIS Global Health Scale Physical Health Percentile 7 Mental Health Percentile 9 Percentiles provide an indication of how the patient's score ranks in relation to the general population. Higher percentile rankings indicate better function/quality of life. 50th percentile is the average of the general population and indicates half of respondents had a worse score. > 31st percentile is within normal limits or better * < 31st percentile is at least SD worse than population, which may be clinically relevant < 16th percentile is at least 1 SD worse than population and warrants attention Depression Screening: PHQ-9 Self-Harm (Item 9) response options: 0 Not at all 1 Several days 2 More than half the days 3 Nearly every day PHQ-9 Levels: 0-4 Minimal depression 5-9 Mild depression 10-14 Moderate depression 15-19 Moderately severe depression 20-27 Severe depression No data to display (0-4) minimal depression, (5-9) mild depression, (10-14) moderate depression, (15-19) moderately severe depression, (20-27) severe depression No data to display No data to display The following information was personally collected by me, Héctor Fairchild MD on November 21, 2023 8:37 AM (electronically signed): REVIEW OF SYSTEMS: GENERAL: (-)weight loss, (-)malaise, (-)fevers. HEENT:(-)headaches. NECK: (-) for lumps, goiter, (-)pain and (-)significant neck swelling. RESPIRATORY: (-) for cough, wheezing or shortness of breath. CARDIOVASCULAR: (-) for chest pain, leg swelling or palpitations. GI: (-) abdominal discomfort, (-)blood in stools or black stools or change in bowel habits. MUSCULOSKELETAL: (+)joint pain , (-)swelling, (+)back pain, (-)muscle pain. SKIN: (-) for lesions, rash, and itching. PSYCH: (-)sleep disturbance, (-)mood disorder, (-)recent psychosocial stressors. HEMATOLOGY/LYMPHOLOGY: (-) for prolonged bleeding, bruising easily or swollen nodes. NEURO: (-)syncope, paralysis, seizures or tremors. All other reviewed and negative other than HPI and as specified above. OBJECTIVE: BP 127/58 Pulse 77 Resp 18 Ht 152.4 cm (5') Wt 84.8 kg (187 lb) BMI 36.52 kg/m GENERAL: Well appearing. No acute distress PSYCH: Mood and affect is appropriate. Awake, alert, and oriented x 3 SKIN: Skin color, texture, turgor normal, no rashes or lesions Otolaryng/HEENT: Normocephalic, atraumatic. EOM intact RESP: Respirations are unlabored CARD: Regular rate. Cap refill <2s. Extremities pink and well perfused at nailbed. GI: deferred MSK: Bilateral upper and lower extremity strength is normal and symmetric. No atrophy or tone abnormalities are noted. Cervical: (-)pain to palpation over the cervical paraspinal muscles. Lumbar: Straight leg raising is negative. (+) pain to palpation lumbar paraspinal muscles. facet loading is (+) bilaterally. No pain to palpation over the PSIS. Gait: Gait is antalgic NEURO: Bilateral upper and lower extremity coordination are intact. Muscle stretch reflexes are physiologic and symmetric. No loss of sensation ASSESSMENT AND MEDICAL DECISION MAKING: The patient is a 73 year old female with: low back and leg pain Dx: Spinal stenosis, lumbar region with neurogenic claudication (primary encounter diagnosis) Cad, multiple vessel Aicd (automatic cardioverter/defibrillator) present Cardiac pacemaker in situ Spinal stenosis of lumbar region with neurogenic claudication PLAN: continue the PT and HEP, markedly improved gabapentin is helping at 100 qAM + 200 qHS ---> sometimes 200 bid Return to clinic (in-person office visit or virtual visit/telemedicine) after all above completed fully. I spent a total of 25 minutes on the date of the service which included: *preparing to see the patient *[id number]-[id number] patient care *completing clinical documentation *obtaining and/or reviewing separately obtained history *performing a medically appropriate examination *counseling and educating the patient/family/caregiver *ordering medications, tests, or procedures *communicating with other HCPs (not separately reported) *independently interpreting results (not separately reported) *communicating results to the patient/family/caregiver *care coordination (not separately reported). Of this, greater than 50% of this was spent in the presence of the patient for purposes of education and counseling regarding the diagnosis and treatment of pain. Patient is aware that any diagnostic testing is best discussed in person to fully explain the significance and resulting treatment plan. Patient is aware that they will need a follow up office visit/virtual visit for proper care. Patient agrees with above. Héctor Fairchild MD November 21, 2023 [facility] History of Present illness Narrative* Charline Hagen, - 11/14/2023 1:00 PM EDT Chief Complaint: Follow-up (6 month ) History Of Present Illness: Pau Vidales" is a 73 y.o. female presenting with CV dz. Patient denies chest pain/SOB/palpitations/dizziness/lightheadedness/edema/claudication Active but no regular exercise No bleeding with warfarin Last Recorded Vitals: Vitals: 11/14/23 1306 11/14/23 1334 BP: 122/60 120/55 BP Location: Left arm Patient Position: Sitting BP Cuff Size: Adult Pulse: 83 Weight: 87.4 kg (192 lb 9.6 oz) Height: 1.524 m (5') Allergies: Cephalexin, Iodinated contrast media, Levofloxacin, Sulfa (sulfonamide antibiotics), and Sulfamethoxazole-trimethoprim Outpatient Medications: Current Outpatient Medications Medication Instructions Bacillus coagulans 10 billion cell capsule,delayed release(DR/EC) oral cetirizine (ZyrTEC) 10 mg capsule 1 capsule, oral, Daily dilTIAZem CD (CARDIZEM CD) 240 mg, oral, Every 12 hours esomeprazole (NEXIUM) 20 mg, oral, Daily before breakfast, Do not open capsule. Pt gets otc lcqikucnzow-tgxehcetq-hgachqdf (Trelegy Ellipta) 200-62.5-25 mcg blister with device 1 puff, inhalation, Daily furosemide (Lasix) 20 mg tablet Take 2 tablets (40 mg) by mouth once daily in the morning AND 1 tablet (20 mg) once daily in the evening. Every evening. gabapentin (NEURONTIN) 100 mg, oral, 3 times daily ipratropium-albuteroL (Duo-Neb) 0.5-2.5 mg/3 mL nebulizer solution 3 mL, nebulization, Every 6 hours RT levalbuterol (Xopenex) 45 mcg/actuation inhaler 2 puffs, inhalation, Every 4 hours PRN lisinopril 10 mg, oral, Daily magnesium oxide 500 mg capsule 1 capsule, oral, Daily methocarbamol (ROBAXIN) 750 mg, oral, 3 times daily PRN nebulizer accessories [facility] Dispense Nebulizer tubing and mouthpiece at quantity allowed per Medicare per month with one year of refills nitroglycerin (NITROSTAT) 0.4 mg, sublingual, Every 5 min PRN pravastatin (PRAVACHOL) 40 mg, oral, Daily traMADol (ULTRAM) 50 mg, oral, Every 8 hours PRN warfarin (Coumadin) 2.5 mg tablet Take once daily as directed by physician. warfarin sodium (COUMADIN ORAL) 1.25 mg, oral, Daily, Takes Monday//monday Physical Exam: Constitutional: General: Awake. Appearance: Healthy appearance. Not in distress. Obese. Neck: Vascular: No JVR. JVD normal. Pulmonary: Effort: Pulmonary effort is normal. Breath sounds: Normal breath sounds. No wheezing. No rhonchi. No rales. Chest: Chest wall: Not tender to palpatation. Cardiovascular: PMI at left midclavicular line. Normal rate. Regular rhythm. Normal S1. Normal S2. Murmurs: There is no murmur. No gallop. No click. No rub. Pulses: Intact distal pulses. Edema: Peripheral edema absent. Abdominal: General: Abdomen is protuberant. Bowel sounds are normal. Palpations: Abdomen is soft. Tenderness: There is no abdominal tenderness. Musculoskeletal: Normal range of motion. General: No tenderness. Skin: General: Skin is warm and dry. Neurological: General: No focal deficit present. Mental Status: Alert and oriented to person, place and time. Last Labs: CBC - Lab Results Component Value Date WBC 8.1 04/24/2023 HGB 13.5 04/24/2023 HCT 41.4 04/24/2023 MCV 85 04/24/2023 PLT 310 04/24/2023 CMP - Lab Results Component Value Date CALCIUM 10.0 06/21/2023 PHOS 3.4 08/01/2021 PROT 7.7 06/21/2023 ALBUMIN 3.9 06/21/2023 AST 16 06/21/2023 ALT 12 06/21/2023 ALKPHOS 85 06/21/2023 BILITOT 0.4 06/21/2023 LIPID PANEL - Lab Results Component Value Date CHOL 157 06/21/2023 TRIG 249 (H) 06/21/2023 HDL 62.4 06/21/2023 CHHDL 2.5 06/21/2023 LDLF 56 08/16/2022 VLDL 50 (H) 06/21/2023 NHDL 95 06/21/2023 Ldl=45 RENAL FUNCTION PANEL - Lab Results Component Value Date GLUCOSE 134 (H) 06/21/2023 NA 139 06/21/2023 K 4.3 06/21/2023 CL 99 06/21/2023 CO2 28 06/21/2023 ANIONGAP 16 06/21/2023 BUN 13 06/21/2023 CREATININE 0.93 06/21/2023 CALCIUM 10.0 06/21/2023 PHOS 3.4 08/01/2021 ALBUMIN 3.9 06/21/2023 Lab Results Component Value Date BNP 41 04/07/2023 HGBA1C 6.6 (H) 06/21/2023 Lab review: I have personally reviewed the laboratory result(s) Problem List Items Addressed This Visit Coronary atherosclerosis - Primary Overview Admitted 03/06/2021 with SOB / elevated troponin 03/08/2021 cardiac cath with moderate nonobstructive dz No current angina -in paced rhythm On diltiazem / statin / warfarin - carries SL NTG Follow Essential hypertension Overview BP OK on current medications Weight loss / salt restriction Presence of cardiac pacemaker Overview 09/02/2008 ... Implanted By Randy Crooks ... Medtronic Sensia, model SEDR01, serial number [id number] Lead1 = Medtronic, model 5076, serial #[id number] ... location Right Lead2 = Medtronic, model 5076, serial #[id number] Hz of CHB ... Follows with EP (HFpEF) heart failure with preserved ejection fraction (Multi) Overview Had mild CHF per CXR / BNP on 03/06/2021 [facility] admit Had ED visit 04/2023 No current S/S of volume overload Farxiga started by but stopped with yeast infection thus stopped On Lasix No signs CHF Relevant Orders ECG 12 Lead (Completed) Paroxysmal atrial fibrillation (Multi) Overview Persistent In paced rhythm On warfarin Carotid stenosis Overview s/p 07/30/2021 L CEA on warfarin / statin 08/2023 carotid duplex with less than 50% stenosis B/L Hypercholesterolemia Overview On moderate intensity statin-has NOT tolerated high intensity 06/2023 LDL=45 High triglycerides Overview Discussed weight loss Weight loss Watch salt intake Charline Hagen DO documented [facility] Work Phone: 1(623) 441-894307-09-2024 Instructions* Patient Instructions* Charline Hagen DO - 11/14/2023 1:00 PM EDT Weight loss Watch salt intake documented in this [facility] Work Phone: 1(261) 977-940106-10-2024 Evaluation + Plan note* Assessment & Plan Note - Timothy Palacio DO - 10/16/2023 12:57 PM EDTAssociated Problem(s): Complete atrioventricular block (Multi) 1. HFpEF: Pau has not had any recent hospitalizations for diastolic CHF. Continue same medication regimen. 2. Atrial fibrillation: This arrhythmia is permanent and she is chronically pacing secondary to complete heart block. Continue warfarin for anticoagulation. 3. Complete heart block: The patient has a history of a Medtronic pacemaker insertion. She states that [facility] had difficulties reprogramming her pacemaker for the MRI but otherwise pacemaker function has been normal, and the estimated battery longevity is 8.3 years. [facility] Work Phone: [phone]) 395-144206-10-2024 Miscellaneous Notes* Assessment & Plan Note - Timothy Palacio DO - 10/16/2023 12:57 PM EDTAssociated Problem(s): Complete atrioventricular block (Multi) 1. HFpEF: Pau has not had any recent hospitalizations for diastolic CHF. Continue same medication regimen. 2. Atrial fibrillation: This arrhythmia is permanent and she is chronically pacing secondary to complete heart block. Continue warfarin for anticoagulation. 3. Complete heart block: The patient has a history of a Medtronic pacemaker insertion. She states that [facility] had difficulties reprogramming her pacemaker for the MRI but otherwise pacemaker function has been normal, and the estimated battery longevity is 8.3 years. documented in this [facility] Work Phone: [phone]) 683-256106-10-2024 History of Present illness Narrative* Timothy Palacio DO - 10/16/2023 11:15 AM EDT History Of Present Illness: This is a 73-year-old female with a history of complete heart block and pacemaker insertion. She has no new cardiac complaints at this time. The patient had an MRI at [facility] and states that difficulty was encountered programming the pacemaker into the MRI mode. Otherwise pacemaker function has been normal. Past medical history: Complete heart block with history of Medtronic pacemaker insertion Permanent atrial fibrillation Hypertension Carotid artery disease with left carotid endarterectomy July 30, 2021 HFpEF Hyperlipidemia Review of Systems Other review of systems negative Last Recorded Vitals: 05/16/2023 2:53 PM 05/16/2023 3:14 PM 06/07/2023 1:24 PM 06/21/2023 8:32 AM 08/24/2023 11:00 AM 09/26/2023 3:05 PM 10/16/2023 11:29 AM Vitals Systolic 148 118 114 134 114 119 Diastolic 76 58 62 70 73 58 Heart Rate 88 85 80 84 76 Resp 16 16 Height (in) 1.524 m (5') 1.524 m (5') 1.524 m (5') 1.524 m (5') 1.524 m (5') 1.524 m (5') Weight (lb) 189 188.4 187 192 191.2 189 BMI 36.91 kg/m2 36.79 kg/m2 36.52 kg/m2 37.5 kg/m2 37.34 kg/m2 36.91 kg/m2 BSA (m2) 1.9 m2 1.9 m2 1.89 m2 1.92 m2 1.92 m2 1.9 m2 Visit Report Report Report Report Report Report Report Allergies: Cephalexin, Iodinated contrast media, Levofloxacin, Sulfa (sulfonamide antibiotics), and Sulfamethoxazole-trimethoprim Outpatient Medications: Current Outpatient Medications Medication Instructions Bacillus coagulans 10 billion cell capsule,delayed release(DR/EC) oral cetirizine (ZyrTEC) 10 mg capsule 1 capsule, oral, Daily dilTIAZem CD (CARDIZEM CD) 240 mg, oral, Every 12 hours esomeprazole (NEXIUM) 20 mg, oral, Daily before breakfast, Do not open capsule. Pt gets otc hupqvupizgu-hycrqnefb-dgtfxcsf (Trelegy Ellipta) 200-62.5-25 mcg blister with device 1 puff, inhalation, Daily furosemide (Lasix) 20 mg tablet Take 2 tablets (40 mg) by mouth once daily in the morning AND 1 tablet (20 mg) once daily in the evening. Every evening. gabapentin (NEURONTIN) 100 mg, oral, 3 times daily ipratropium-albuteroL (Duo-Neb) 0.5-2.5 mg/3 mL nebulizer solution 3 mL, nebulization, Every 6 hours RT levalbuterol (Xopenex) 45 mcg/actuation inhaler 2 puffs, inhalation, Every 4 hours PRN lisinopril 10 mg, oral, Daily magnesium oxide 500 mg capsule 1 capsule, oral, Daily methocarbamol (ROBAXIN) 750 mg, oral, 3 times daily PRN nebulizer accessories [facility] Dispense Nebulizer tubing and mouthpiece at quantity allowed per Medicare per month with one year of refills nitroglycerin (NITROSTAT) 0.4 mg, sublingual, Every 5 min PRN pravastatin (PRAVACHOL) 40 mg, oral, Daily traMADol (ULTRAM) 50 mg, oral, Every 8 hours PRN warfarin (Coumadin) 2.5 mg tablet Take once daily . warfarin sodium (COUMADIN ORAL) 1.25 mg, oral, Daily, Takes Monday//monday Physical Exam: General Appearance: Alert, oriented, no distress Skin: Warm and dry Head and Neck: No elevation of JVP, no carotid bruits Cardiac Exam: Rhythm is regular, S1 and S2 are normal, no murmur S3 or S4 Lungs: Clear to auscultation Extremities: no edema Neurologic: No focal deficits Psychiatric: Appropriate mood and behavior Cardiology Tests: I have personally review the diagnostic cardiac testing and my interpretation is as follows: EKG: Atrial fibrillation with ventricular paced rhythm Echocardiogram April 07, 2023: Ejection fraction 50 to 55% Assessment/Plan Problem List Items Addressed This Visit ICD-10-CM Presence of cardiac pacemaker Z95.0 Complete atrioventricular block (Multi) - Primary I44.2 1. HFpEF: Pau has not had any recent hospitalizations for diastolic CHF. Continue same medication regimen. 2. Atrial fibrillation: This arrhythmia is permanent and she is chronically pacing secondary to complete heart block. Continue warfarin for anticoagulation. 3. Complete heart block: The patient has a history of a Medtronic pacemaker insertion. She states that [facility] had difficulties reprogramming her pacemaker for the MRI but otherwise pacemaker function has been normal, and the estimated battery longevity is 8.3 years. Timothy Palacio DO documented [facility] Work Phone: [phone]) 779-506906-10-2024 Instructions* Patient Instructions* Timothy Palacio DO - 10/16/2023 11:15 AM EDT Follow up with Dr. Palacio in 6-8 months. documented in [facility] Work Phone: 1([phone]) 687-179505-21-2024 History of Present illness Narrative* Ronit Doan DO - 09/26/2023 3:15 PM EDT Subjective Pau Muñoz is a 73 y.o. female who presents for Follow-up. She is finishing physical therapy for her back She had brought her bottle with her tramadol and she has 11 She usually takes tramadol once a day She takes gabapentin one in am and two at night OARRS: Ronit Doan DO on 09/26/2023 3:22 PM I have personally reviewed the OARRS report for Pau Muñoz. I have considered the risks of abuse, dependence, addiction and diversion and I believe that it is clinically appropriate for Elma to be prescribed this medication Is the patient prescribed a combination of a benzodiazepine and opioid? No Last Urine Drug Screen / ordered today: Yes Recent Results (from the past 8760 hour(s)) Confirmation Opiate/Opioid/Benzo Prescription Compliance Collection Time: 09/26/23 3:59 PM Result Value Ref Range Clonazepam <25 <25 ng/mL 7-Aminoclonazepam <25 <25 ng/mL Alprazolam <25 <25 ng/mL Alpha-Hydroxyalprazolam <25 <25 ng/mL Midazolam <25 <25 ng/mL Alpha-Hydroxymidazolam <25 <25 ng/mL Chlordiazepoxide <25 <25 ng/mL Diazepam <25 <25 ng/mL Nordiazepam <25 <25 ng/mL Temazepam <25 <25 ng/mL Oxazepam <25 <25 ng/mL Lorazepam <25 <25 ng/mL Methadone <25 <25 ng/mL EDDP <25 <25 ng/mL 6-Acetylmorphine <25 <25 ng/mL Codeine <50 <50 ng/mL Hydrocodone <25 <25 ng/mL Hydromorphone <25 <25 ng/mL Morphine <50 <50 ng/mL Norhydrocodone <25 <25 ng/mL Noroxycodone <25 <25 ng/mL Oxycodone <25 <25 ng/mL Oxymorphone <25 <25 ng/mL Fentanyl <2.5 <2.5 ng/mL Norfentanyl <2.5 <2.5 ng/mL Tramadol >1,000 (H) <50 ng/mL O-Desmethyltramadol >1,000 (H) <50 ng/mL Zolpidem <25 <25 ng/mL Zolpidem Metabolite (ZCA) <25 <25 ng/mL Screen Opiate/Opioid/Benzo Prescription Compliance Collection Time: 09/26/23 3:59 PM Result Value Ref Range Creatinine, Urine Random 94.9 20.0 - 320.0 mg/dL Amphetamine Screen, Urine Presumptive Negative Presumptive Negative Barbiturate Screen, Urine Presumptive Negative Presumptive Negative Cannabinoid Screen, Urine Presumptive Negative Presumptive Negative Cocaine Metabolite Screen, Urine Presumptive Negative Presumptive Negative PCP Screen, Urine Presumptive Negative Presumptive Negative N/A Controlled Substance Agreement: Date of the Last Agreement: today 09/26/2023 Reviewed Controlled Substance Agreement including but not limited to the benefits, risks, and alternatives to treatment with a Controlled Substance medication(s). Opioids: What is the patient's goal of therapy? Treatment of bouts of lumbar pain Is this being achieved with current treatment? Yes, she says that she gets considerable relief whenshe takes tramadol. She Had seen pain management in the past, and was not interested in any intervention right nowl I have calculated the patient's Morphine Dose Equivalent (MED): I have considered referral to Pain Management and/or a specialist, and do not feel it is necessary at this time. I feel that it is clinically indicated to continue this current medication regimen after consideration of alternative therapies, and other non-opioid treatment. Opioid Risk Screening: No data recorded Pain Assessment: No data recorded left. Her breathing is doing well. She does not like the heat now, but she usually tries to stay at home in A/C She she is going to discuss her pacemaker with Dr Palacio, as they had trouble getting it to switch to MRI mode when she had to get an mri done Her warfarin therapy is going well. Review of Systems Objective BP 114/73 Pulse 84 Resp 16 Ht 1.524 m (5') Wt 86.7 kg (191 lb 3.2 oz) BMI 37.34 kg/m Physical Exam GEN: NAD HEENT: normal NECK: no adenopathy, no thyroid enlargment LUNGS: CTAB CV: reg S1/S2 no murmurs EXT: no leg edema Assessment/Plan Problem List Items Addressed This Visit Essential hypertension remain on lisinopril 10 mg daily and diltiazem 240. Relevant Orders Lipid Panel Comprehensive Metabolic Panel Paroxysmal atrial fibrillation (Multi) she remains on warfarin and diltiazem Type 2 diabetes mellitus with hyperglycemia, without long-term current use of insulin (Multi) currently she is not on any anti diabetic meds. Relevant Orders Hemoglobin A1C Spinal stenosis of lumbar region with neurogenic claudication she has been doing well with tramadol CSA updated today and UDS ordered today She has usually been taking one tablet a day, RX for #90 tabs submitted Other Visit Diagnoses Medication monitoring encounter - Primary Relevant Orders Opiate/Opioid/Benzo Prescription Compliance (Completed) CBC OOB Internal Tracking (Completed) [facility] Work Phone: [phone]) 699-938505-21-2024 Instructions* Patient Instructions* Ronit Doan DO - 09/26/2023 3:15 PM EDT You are doing well. I sent in refill for your tramadol See me again in 4 months. Get blood test done a week before that visit. documented in [facility]Children[facility] Work Phone: 1([phone]) 124-431205-16-2024 Telephone encounter Note* Telephone Encounter - Dasia Donaldson MA - 09/21/2023 9:26 AM EDT Received fax from [place] [address] [place] [address] P: [phone] F: [phone] PT eval was signed by Ayanna Vazquez CNP & faxed to above phone number. Evaluation will be scannedin patient's chart. [facility]05-16-2024 Miscellaneous Notes* Telephone Encounter - Dasia Donaldson MA - 09/21/2023 9:26 AM EDT Received fax from [facility] [address] [place] [address] P: [phone] F: [phone] PT eval was signed by Ayanna Vazquez CNP & faxed to above phone number. Evaluation will be scannedin patient's chart. documented in this encounterR[facility]04[facility] History of Present illness Narrative* Jaylon Kiser DO - 08/24/2023 11:20 AM EDT Pau Muñoz is a 73 y.o. female Subjective This patient presents today for follow-up of her carotid artery disease. She currently denies any constitutional symptoms associated with her carotid artery disease. I did do a left carotid endarterectomy on her about 2 years ago. She has never smoked. She is obese at 5 foot tall and weighs 192 pounds. She is currently on warfarin for cardiac issues. She currently denies any fever chills nausea vomiting or headache. Objective Vitals: 08/24/23 1100 BP: 134/70 Pulse: 80 SpO2: 94% Physical Exam This patient is alert and oriented x3 her head is normocephalic neck is soft and supple without palpable lymph nodes. Heart is regular rate. Lungs are clear. Abdomen soft with positive bowel sounds. There is no pain on palpation. Upper and lower extremities have adequate range of motion with palpable brachial radial femoral and popliteal pulses. Skin turgor is adequate. Psychologically the patient appears to be acting appropriately. Blood pressure 134/70, pulse 80, height 1.524 m (5'), weight 87.1 kg (192 lb), SpO2 94%. Patient Active Problem List Diagnosis Date Noted History of atrial fibrillation 05/16/2023 Left buttock pain 04/24/2023 Advanced diabetic retinal disease (Multi) 04/14/2023 Adverse effect of compound iron preparation 04/14/2023 Anxiety 04/14/2023 Bacterial skin infection 04/14/2023 Carotid bruit 04/14/2023 Carotid stenosis 04/14/2023 Cellulitis of left ear canal 04/14/2023 Complete atrioventricular block (Multi) 04/14/2023 Dental disease 04/14/2023 Eczema 04/14/2023 History of COVID-19 04/14/2023 Hypokalemia 04/14/2023 IBS (irritable bowel syndrome) 04/14/2023 Impaired ambulation 04/14/2023 Impaired fasting glucose 04/14/2023 Iron deficiency 04/14/2023 Lumbar strain, initial encounter 04/14/2023 MGUS (monoclonal gammopathy of unknown significance) 04/14/2023 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, lumbar region 04/14/2023 Trigger finger, acquired 04/14/2023 Paroxysmal atrial fibrillation (Multi) 02/01/2023 supervisor intermediates (current) use of anticoagulants 02/01/2023 (HFpEF) heart failure with preserved ejection fraction (Multi) 12/12/2022 Type 2 diabetes mellitus with hyperglycemia, without long-term current use of insulin (Multi) 12/12/2022 Longstanding persistent atrial fibrillation (Multi) 10/25/2022 Dyspnea on exertion 10/25/2022 COVID-19 virus infection 08/12/2022 Osteoarthritis 08/12/2022 Warfarin-induced coagulopathy ([facility]) 08/11/2022 Female perineal bleeding 05/20/2022 Obesity, Class II, BMI 35-39.9 10/06/2017 Essential hypertension 12/11/2015 Left ventricular dysfunction 08/16/2009 Presence of cardiac pacemaker 09/05/2008 Cough 09/04/2008 Coronary atherosclerosis 08/29/2008 Primary pulmonary hypertension ([facility]) 08/15/2008 Ventricular septal defect ([facility]) 08/15/2008 Dyslipidemia 10/26/2007 Hypercholesterolemia 10/26/2007 Asthma ([facility]) 05/18/2007 Degeneration of lumbar or lumbosacral intervertebral disc 05/18/2007 Atrial fibrillation, unspecified type ([facility]) 08/15/2023 Current Outpatient Medications: Bacillus coagulans 10 billion cell capsule,delayed release(DR/EC), Take by mouth., Disp: , Rfl: cetirizine (ZyrTEC) 10 mg capsule, Take 1 capsule (10 mg) by mouth once daily., Disp: , Rfl: dilTIAZem CD (Cardizem CD) 240 mg 24 hr capsule, Take 1 capsule (240 mg) by mouth every 12 hours for 14 days., Disp: 28 capsule, Rfl: 0 dilTIAZem CD (Cardizem CD) 240 mg 24 hr capsule, Take 1 capsule (240 mg) by mouth every 12 hours., Disp: 28 capsule, Rfl: 1 esomeprazole (NexIUM) [address] capsule, Take 1 capsule (20 mg) by mouth once daily in the morning. Take before meals. Do not open capsule. Pt gets otc, Disp: , Rfl: ejrvxidfepi-nehctujhw-qgicgijt (Trelegy Ellipta) 200-62.5-25 mcg blister with device, Inhale 1 puffonce daily., Disp: , Rfl: furosemide (Lasix) 20 mg tablet, Take 1 tablet (20 mg) by mouth once daily. Every evening, Disp: , Rfl: furosemide (Lasix) 40 mg tablet, Take 1 tablet (40 mg) by mouth once daily in the morning., Disp: 90 tablet, Rfl: 3 gabapentin (Neurontin) 100 mg capsule, Take 1 capsule (100 mg) by mouth 3 times a day., Disp: , Rfl: ipratropium-albuteroL (Duo-Neb) 0.5-2.5 mg/3 mL nebulizer solution, Take 3 mL by nebulization every6 hours., Disp: 180 mL, Rfl: 3 levalbuterol (Xopenex) 45 mcg/actuation inhaler, Inhale 2 puffs every 4 hours if needed for wheezing., Disp: , Rfl: lisinopril 10 mg tablet, Take 1 tablet (10 mg) by mouth once daily., Disp: 90 tablet, Rfl: 2 magnesium oxide 500 mg capsule, Take 1 capsule (500 mg) by mouth once daily., Disp: , Rfl: methocarbamol (Robaxin) 750 mg tablet, Take 1 tablet (750 mg) by mouth 3 times a day as needed for muscle spasms., Disp: 12 tablet, Rfl: 0 nebulizer accessories [facility], Dispense Nebulizer tubing and mouthpiece at quantity allowed per Medicare per month with one year of refills, Disp: 1 each, Rfl: 11 nitroglycerin (Nitrostat) 0.4 mg SL tablet, Place 1 tablet (0.4 mg) under the tongue every 5 minutes if needed for chest pain., Disp: , Rfl: pravastatin (Pravachol) 40 mg tablet, Take 1 tablet (40 mg) by mouth once daily., Disp: 90 tablet, Rfl: 3 traMADol (Ultram) 50 mg tablet, Take 1 tablet (50 mg) by mouth every 8 hours if needed for severe pain (7 - 10)., Disp: 90 tablet, Rfl: 0 warfarin (Coumadin) 2.5 mg tablet, Take once daily . (Patient taking differently: Take 1 tablet (2.5 mg) by mouth 4 times a day. Nex-Zpq-Cul-Mon), Disp: 90 tablet, Rfl: 3 warfarin sodium (COUMADIN ORAL), Take 1.25 mg by mouth once daily. Takes Monday//monday,Disp: , Rfl: Lab Results Component Value Date WBC 8.1 04/24/2023 HGB 13.5 04/24/2023 HCT 41.4 04/24/2023 PLT 310 04/24/2023 CHOL 157 06/21/2023 TRIG 249 (H) 06/21/2023 HDL 62.4 06/21/2023 ALT 12 06/21/2023 AST 16 06/21/2023 NA 139 06/21/2023 K 4.3 06/21/2023 CL 99 06/21/2023 CREATININE 0.93 06/21/2023 BUN 13 06/21/2023 CO2 28 06/21/2023 TSH 1.77 11/01/2022 INR 2.40 08/22/2023 HGBA1C 6.6 (H) 06/21/2023 Vascular US carotid artery duplex bilateral Result Date: 08/25/2023 [facility] [address] [place] [address] and Vascular Lab Report [facility] US CAROTID ARTERY DUPLEX BILATERAL Patient Name: PAU MUÑOZ [place] [id number] Qiana Parks MD, Physician: JUDD Study Date: 08/22/2023 Ordering [id number] JAYLON KISER Physician: MRN/PID: [id number] Technologist: June SILVA Technologist 2: Date of 1950 /Age: years Gender: F Admission Status: Outpatient Location [facility] Performed: Diagnosis/ICD: Occlusion and stenosis of bilateral carotid arteries-I65.23 Indication: Occlusion/stenosis, Carotid without cerebral infarction CPT Codes: 02349 Cerebrovascular Carotid Duplex scan complete Patient History Carotid surgery. [facility]. CONCLUSIONS: Right Carotid: Findings are consistent with less than 50% stenosis of the right proximal internal carotid artery. Laminar flow seen by color Doppler. Right external carotid artery appears patent with no evidence of stenosis. The right vertebral artery is patent with antegrade flow. There are elevated velocities in the right subclavian artery that are suggestive of disease. Left Carotid: Findings are consistent with less than 50% stenosis of the left proximal internal carotid artery. Laminar flow seen by color Doppler. Left external carotid artery appears patent with no evidence of stenosis. The left vertebral artery is patent with antegrade flow. There are elevated velocities in the left subclavian artery that are suggestive of disease. Comparison: Compared with study from 08/08/2022, bilateral subclavian velocities have increased. Remaining exam shows no significant change. Imaging & Doppler Fi ndings: Right Plaque Morph: The proximal right internal carotid artery demonstrates heterogenous and calcified plaque. The distal right common carotid artery demonstrates intimal thickening plaque. Left Plaque Morph: The proximal left internal carotid artery demonstrates intimal thickening plaque. The proximal left external carotid artery demonstrates intimal thickening plaque. The left carotid bulb demonstrates intimal thickening plaque. Right Left PSV EDV PSV EDV 121 cm/s CCA P 85 cm/s 73 cm/s CCA D 46 cm/s 108 cm/s 30 cm/s ICA P 49 cm/s 8 cm/s 69 cm/s 14 cm/s ICA M 65 cm/s 21 cm/s 60 cm/s 14 cm/s ICA D 58 cm/s 19 cm/s 134 cm/s ECA 143 cm/s 40 cm/s 10 cm/s Vertebral 57 cm/s 14 cm/s 245 cm/s Subclavian 233 cm/s Right Left ICA/CCA Ratio 1.5 1.1 [id number] Qiana Parks MD, JUDD Final Assessment/Plan Active Problems: There are no active Hospital Problems. This patient presents today for follow-up of her carotid artery disease. She currently denies any constitutional symptoms associated with her carotid artery disease. I did do a left carotid endarterectomy on her about 2 years ago. Her recent carotid duplex scan shows excellent results with mild disease bilaterally. Overall, I am very pleased with her current carotid results. I would like her to follow-up in 1 year with a repeat carotid duplex scan Jaylon Kiser DO [facility] Work Phone: [phone] Miscellaneous Notes* Telephone Encounter - Dasia Donaldson MA - 08/11/2023 8:29 AM EDT Called patient & relayed below message from Ayanna Vazquez CNP. Patient verbalized understanding. * Telephone Encounter - Ayanna Vazquez APRN.CNP - 08/11/2023 7:22 AM EDT We do not manage her tramadol. She can take both medications tramadol and gabapentin. Watch for sedation Ayanna Vazquez APRN.REGINO * Telephone Encounter - Dasia Donaldson MA - 08/10/2023 3:39 PM EDT Patient was seen on 08/08/2023; she was prescribed Neurontin (a titrating dose). Patient wanted to know if the titration increase w/ Neurontin will interfere w/ her Tramadol. Please advise, Thank you documented [facility] History of Present illness Narrative* Héctor Fairchild MD - 08/08/2023 11:30 AM EDT X * Héctor Fairchild MD - 08/08/2023 11:22 AM EDT Images from the original note were not included. SUBJECTIVE: [facility] for a follow-up appointmentfor pain in the "lower back" persistent Current pain intensity is 3 on a scale of 0 -10. Pain character: aching Exacerbating factors: standing, walking, and over worjing Alleviating factors: sitting Medications For Pain: - Opioids: yes or no - NSAIDs: no - Anti-Depressants: no - Anti-Convulsants: no - Others: coumadin Opioid agreement: No OARRS report reviewed by the physician Is the patient receiving analgesia/pain relief from the current medications? (YES) Has the current medication improved activities such as walking or standing? (YES) Have the current medications been associated with any adverse events? (NO) Illicit drug use? (NO) Physical Therapy in the last 6 months?: No FH: patient denies any family history of the chief complaint for this visit SH: denies illicit drug use Last took opioid medication (08-07-2023 at 9pm Questionnaires: Patient Entered Questionnaires PROMIS Score Percentiles 09/16/2016 PROMIS Global Health Scale Physical Health Percentile 7 Mental Health Percentile 9 Percentiles provide an indication of how the patient's score ranks in relation to the general population. Higher percentile rankings indicate better function/quality of life. 50th percentile is the average of the general population and indicates half of respondents had a worse score. > 31st percentile is within normal limits or better * < 31st percentile is at least SD worse than population, which may be clinically relevant < 16th percentile is at least 1 SD worse than population and warrants attention Depression Screening: PHQ-9 Self-Harm (Item 9) response options: 0 Not at all 1 Several days 2 More than half the days 3 Nearly every day PHQ-9 Levels: 0-4 Minimal depression 5-9 Mild depression 10-14 Moderate depression 15-19 Moderately severe depression 20-27 Severe depression No data to display (0-4) minimal depression, (5-9) mild depression, (10-14) moderate depression, (15-19) moderately severe depression, (20-27) severe depression No data to display No data to display The following information was personally collected by me, Héctor Fairchild MD on August 08, 2023 11:22 AM (electronically signed): REVIEW OF SYSTEMS: GENERAL: (-)weight loss, (-)malaise, (-)fevers. HEENT:(-)headaches. NECK: (-) for lumps, goiter, (-)pain and (-)significant neck swelling. RESPIRATORY: (-) for cough, wheezing or shortness of breath. CARDIOVASCULAR: (-) for chest pain, leg swelling or palpitations. GI: (-) abdominal discomfort, (-)blood in stools or black stools or change in bowel habits. MUSCULOSKELETAL: (-)joint pain , (-)swelling, (+)back pain, (-)muscle pain. SKIN: (-) for lesions, rash, and itching. PSYCH: (+)sleep disturbance, (-)mood disorder, (-)recent psychosocial stressors. HEMATOLOGY/LYMPHOLOGY: (-) for prolonged bleeding, bruising easily or swollen nodes. NEURO: (-)syncope, paralysis, seizures or tremors. All other reviewed and negative other than HPI and as specified above. OBJECTIVE: BP 131/65 Pulse 101 Resp 20 Ht 152.4 cm (5') Wt 84.8 kg (187 lb) BMI 36.52 kg/m GENERAL: Well appearing. No acute distress PSYCH: Mood and affect is appropriate. Awake, alert, and oriented x 3 SKIN: Skin color, texture, turgor normal, no rashes or lesions Otolaryng/HEENT: Normocephalic, atraumatic. EOM intact RESP: Respirations are unlabored CARD: Regular rate. Cap refill <2s. Extremities pink and well perfused at nailbed. GI: deferred MSK: Bilateral upper and lower extremity strength is normal and symmetric. No atrophy or tone abnormalities are noted. Cervical: (-)pain to palpation over the cervical paraspinal muscles. Lumbar: Straight leg raising is negative. (+) pain to palpation lumbar paraspinal muscles. facet loading is (+) bilaterally. No pain to palpation over the PSIS. Gait: Gait is antalgic NEURO: Bilateral upper and lower extremity coordination are intact. Muscle stretch reflexes are physiologic and symmetric. No loss of sensation ASSESSMENT AND MEDICAL DECISION MAKING: This is a CHEERFUL 73 year old female with low back and LLE pain, suspect recent lumbar disc herniation claudication+ LLE Radicular pain is somewhat improved with time now but the claudication persists. Prior to this episode she simply managed the infrequent low back pain with periodic rest/sitting. She was seen by me in 2017 for a similar problem though since it had improved she was lost to follow-up thereafter. At this point the claudication likely from stenosis warrants treatment though the patient is not interested in any invasive procedures. Dx: Cad, multiple vessel Spinal stenosis, lumbar region with neurogenic claudication (primary encounter diagnosis) Presence of cardiac pacemaker PLAN: SPINE REHAB - Consult to Physical Therapy For an appointment call: [facility]: [phone]. [facility]: [phone], Option 1. [facility] ([place]) ADULTS - For an appointment call: [place], [place]: [phone] ([address] [facility], [address]) [place], [place]: [phone] ([address]) or [phone] ([address] [place], [place]: [phone] ([address]) or [phone] ([address], [address]) or [phone] ([address] [facility] [address], [address]) PEDIATRICS - For an appointment call: [place], [place]: [phone] ([address] [facility]) The advertising sales agent will assist you in selecting the location and specialty service that will bestmeet your needs. gabapentin (NEURONTIN) 100 mg capsule Sig: take 1 tab PO qHS x 3 days, then take 2 tabs PO qHS x 3 days, then take 1 tab PO qAM + 2 tabs PO qHS x 3 days, then take 2 tabs PO BID if tolerated Dispense: 120 capsule Refill: 11 Return to clinic (in-person office visit or virtual visit/telemedicine) after all above completed fully. I spent a total of 25 minutes on the date of the service which included: *preparing to see the patient *[id number] patient care *completing clinical documentation *obtaining and/or reviewing separately obtained history *performing a medically appropriate examination *counseling and educating the patient/family/caregiver *ordering medications, tests, or procedures *communicating with other HCPs (not separately reported) *independently interpreting results (not separately reported) *communicating results to the patient/family/caregiver *care coordination (not separately reported). Of this, greater than 50% of this was spent in the presence of the patient for purposes of education and counseling regarding the diagnosis and treatment of pain. Patient is aware that any diagnostic testing is best discussed in person to fully explain the significance and resulting treatment plan. Patient is aware that they will need a follow up office visit/virtual visit for proper care. Patient agrees with above. Héctor Fairchild MD August 08, 2023 documented in this encounterRiver[facility] Institute03-26-2024 Miscellaneous Notes* Telephone Encounter - Héctor Fairchild MD - 08/01/2023 3:05 PM EDT cxr documented in this encounterRiver[facility]02-06-2024 History of Present illness Narrative* Héctor Fairchild MD - 06/13/2023 11:24 AM EST Referring Or Consulting Physician: none CHIEF COMPLAINT: pain in my low back radiating to the left buttock and previously left leg HPI: This is a 73 year old female here for evaluation of pain , 04/23/2023 went to ER ([place]) "Spasms" in L leg. This pain has subsided somewhat At this point, the pain is located in the areas detailed above (see cc). The patient describes the pain as n/a and is a 2/10 in severity. It is constant The pain is exacerbated by "cleaning the apartment" and is mitigated by sitting, relaxing, heat, recliner w/ legs elevated. In the past, the patient has been treated with "muscle relaxants." The patient is currently taking "tylenol ES" for pain. NSAIDS contraindicated + Had a GI bleed She has apparently already completed 6 sessions of PT at an outside office In the past, the patient has been treated with the following interventional pain procedures: none Relevant OARRS records were reviewed. Adverse Reaction to Medication: no Opioid Agreement: No Receiving Disability Income: No Last Date/Time Patient had Opioid Medication: takes at bedtime Previous Xrays?: yes Completed Physical Therapy? :no Imaging Studies: 04/23/2023 9:20 PM - Radiology, [place] In Impression IMPRESSION: Multilevel degenerative changes without acute osseous abnormality. Diamond Sorter[facility] Transcribe Date/Time: Apr 23 2023 9:16P Dictated by : OLIVER VIEYRA MD This examination was interpreted and the report reviewed and electronically signed by: OLIVRE VIEYRA MD on Apr 23 2023 9:18PM EST Results-Findings * * *Final Report* * * DATE OF EXAM: Apr 23 2023 8:58PM BRX [id number] - XR LUMBAR 3V AP/LAT/L5-S1 / PROCEDURE REASON: Back pain * * * * Physician Interpretation * * * * EXAMINATION: XR LUMBAR 3V AP/LAT/L5-S1 CLINICAL HISTORY: Back pain TECHNIQUE: XR LUMBAR 3V AP/LAT/L5-S1 with 3 views on 3 images MQ: XLS_1 COMPARISON: Lumbar spine radiographs 08/24/2016. RESULT: Counting Reference: Lumbosacral junction on lateral view. For the purposes of this report, L5S1 is considered the last lumbar type disc space and L4-5 is considered the level of the iliac crest. Normal. Post-op assessment: N/A Alignment: No traumatic malalignment. Mild levocurvature of the lumbar spine. Vertebral bodies: Normal in height. No vertebral fracture. Spine articulations: Multilevel degenerative disc disease worse at L2-L3, L3-L4, and L5-S1. Lower lumbar facet arthropathy. Soft tissues: Normal. Other: Surgical clips in the right upper quadrant. Vascular calcifications of the abdominal aorta. Partially visualized pacemaker leads. Result History XR LUMBAR GENERAL 3V AP/LAT/L5-S1 (Order #[id number]) on 04/23/2023 - Order Result History Report Result Information Status Provider Status Final result (04/23/2023 9:20 PM) Ordered Exam Performed Date and Time 04/23/2023 8:58 PM [facility] DIVISION OF RADIOLOGY [address] I personally reviewed the above imaging findings, and discussed them with the patient in detail. Is the patient receiving analgesia/pain relief from the current medications? (+) Tramadol once a day Has the current medication improved activities of daily living? (-) Have the current medications been associated with any adverse events? (-) Has the patient displayed any aberrant drug-related behaviors? (-) Illicit drug use? (-) Patient denies loss of bowel or bladder control, unintentional weight loss, h/o malignancy, fevers/chills/night sweats. PAST MEDICAL HISTORY Diagnosis Date Anxiety Atrial fibrillation (HCC) Congestive heart failure, unspecified Congestive heart failure DJD (degenerative joint disease) Hypertension MGUS (monoclonal gammopathy of unknown significance) Mixed hyperlipidemia Hyperlipidemia Pacemaker Presbyopia Spontaneous ASD closure Ventricular septal defect PAST SURGICAL HISTORY Procedure Laterality Date BIOPSY BREAST OPEN INCISIONAL Bx of breast, incisional CLSR 1 VENTRICULAR SEPTAL DEFECT W/WO PATCH LAPAROSCOPY SURG CHOLECYSTECTOMY Cholecystectomy, lap PAST SURGICAL HISTORY OF 2008 pacemaker placement REMOVE CATARACT, INSERT LENS,EX Right 04/2014 REMOVE CATARACT, INSERT LENS,EX Left 03/2014 TOTAL ABDOMINAL HYSTERECT W/WO RMVL TUBE OVARY Hysterectomy, RAMÓN Social History Tobacco Use Smoking status: Never Smokeless tobacco: Never Substance Use Topics Alcohol use: No Drug use: No FH: Patient denies a family history of the current chief complaint. ALLERGIES Allergen Reactions Acyclovir Vomiting Bactrim [Sulfametho* Rash Digoxin rhythm block Dye [Other] Cardiac cath dye, causes syncope Inderal [Propranolo* low blood pressure Keflex [Cephalexin] Hives Levaquin [Levofloxa* Hives Sulfa (Sulfonamide * Hives Current Outpatient Medications Medication Sig furosemide (LASIX) 40 mg tablet Take by mouth every 24 hours. Patient takes 40mg in the morning, 20mg in the evening traMADol (ULTRAM) 50 mg tablet Take 1 tablet (50 mg) by mouth every 8 hours if needed for severe pain (7 - 10). MAGNESIUM ORAL Take 500 mg by mouth once daily. pravastatin (PRAVACHOL) 20 mg tablet TAKE 1 TABLET BY MOUTH EVERY DAY (Patient taking differently: 40 mg.) diltiazem CD (CARDIZEM CD, CARTIA XT) 240 mg 24 hr capsule Take 240 mg by mouth once daily. esomeprazole (NEXIUM) 20 mg capsule Take 20 mg by mouth DAILY (6 AM). lisinopril (ZESTRIL) 10 mg tablet Take 1 tablet (10 mg) by mouth once daily. Lactobacillus acidophilus (PROBIOTIC ORAL) Take by mouth once daily. cetirizine HCl (ZYRTEC ORAL) Take by mouth as needed. warfarin (COUMADIN) 2.5 mg tablet Take 1 tablet by mouth every afternoon. Patient takes 2.25 mon, wed, fri Patient takes 1.25 on , th, sat dilTIAZem CD (CARDIZEM CD, CARTIA XT) 240 mg 24 hr capsule Take 240 mg by mouth every 12 hours. pravastatin (PRAVACHOL) 40 mg tablet Take 1 tablet by mouth every afternoon. (Patient not taking: Reported on 06/13/2023) doxycycline monohydrate (MONODOX) 100 mg capsule Take 1 capsule by mouth twice daily. methylPREDNISolone (MEDROL, CHRISSY,) 4 mg Dose-Pack As instructed per package cholecalciferol (VITAMIN D3) 2,000 unit tablet Take 1 tablet by mouth once daily. Bacillus coagulans (PROBIOTIC, B. 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 Take by mouth. ferrous sulfate (IRON, FERROUS SULFATE,) 325 mg (65 mg iron) tablet Take 325 mg by mouth daily withbreakfast. Black Cohosh 540 mg cap Take by mouth. Magnesium 250 mg tab Take 500 mg by mouth. PARoxetine (PAXIL) 10 mg tablet Take 1 tab PO qd in morning. diclofenac sodium (VOLTAREN) 1 % topical gel Apply 4 g to affected area four times daily. As Directed. omeprazole (PRILOSEC) 20 mg capsule Take 1 capsule by mouth once daily. No current facility-administered medications for this visit. Questionnaires: Patient Entered Questionnaires PROMIS Score Percentiles PROMIS Global Health Scale 09/16/2016 Physical Health Percentile 7 Mental Health Percentile 9 Percentiles provide an indication of how the patient's score ranks in relation to the general population. Higher percentile rankings indicate better function/quality of life. 50th percentile is the average of the general population and indicates half of respondents had a worse score. > 31st percentile is within normal limits or better * < 31st percentile is at least SD worse than population, which may be clinically relevant < 16th percentile is at least 1 SD worse than population and warrants attention Depression Screening: PHQ-9 Self-Harm (Item 9) response options: 0 Not at all 1 Several days 2 More than half the days 3 Nearly every day PHQ-9 Levels: 0-4 Minimal depression 5-9 Mild depression 10-14 Moderate depression 15-19 Moderately severe depression 20-27 Severe depression No flowsheet data found.(0-4) minimal depression, (5-9) mild depression, (10-14) moderate depression, (15-19) moderately severe depression, (20-27) severe depression No flowsheet data found. No flowsheet data found. REVIEW OF SYSTEMS: GENERAL: weight loss (-), malaise(+), fevers (-) HEENT: thrush(-), epistaxis(-) NECK: Negative for neck swelling. RESPIRATORY: Negative for cough, wheezing or shortness of breath (-). CARDIOVASCULAR: chest pain(-), leg swelling(+slight) or palpitations(+) open heart surgery VSD, pacemaker GI: abdominal discomfort(-), blood in stools/melena/change in bowel habits(-). MUSCULOSKELETAL: joint pain(-), swelling(-), back pain(+) , muscle pain(-). SKIN: (-) for lesions, rash, and itching. PSYCH: sleep disturbance(-), mood disorder(-), recent psychosocial stressors(-). HEMATOLOGY/LYMPHOLOGY: Negative for prolonged bleeding, easy bruising, or swollen nodes (+) NEURO: headaches(-), syncope(-), paralysis(-), seizures(-), tremors (-) All other reviewed and negative other than HPI. Scribe attestation: Dasia Lima Ma (June 13, 2023 11:24 AM) attest that this documentation has been prepared under the direction and in the presence of Héctor Fairchild MD Electronically Signed: Héctor Fairchild MD June 13, 2023 11:24 AM Physician attestation: IHéctor MD, personally performed the services described in this documentation. All medical record entries made by the scribe were at my direction and in my presence. Furthermore, I personally performed the physical exam and documented it as such, and agree that the record reflects my personal performance. Electronically Signed: Héctor Fairchild MD June 13, 2023 11:24 AM OBJECTIVE: BP 125/70 Pulse 76 Wt 84.8 kg (187 lb) BMI 36.52 kg/m GENERAL: Well appearing, in no acute distress PSYCH: Mood and affect is appropriate. Awake, alert, and oriented x 3 SKIN: Skin color, texture, turgor normal, no rashes or lesions HEENT: Normocephalic, atraumatic. PERRLA. RESP: Respirations are unlabored CARD: Regular rate. Cap refill <2s. Extremities pink and well perfused at nailbed GI: deferred. MSK: Bilateral upper and lower extremity strength is normal and symmetric. No atrophy or tone abnormalities are noted Cervical: (-)pain to palpation over the cervical paraspinal muscles. Spurling is (-). (-)pain with neck flexion, extension or rotation. Rotation is full on right and left. Axial Loading Test negative, Hallman's sign negative. No obvious deformity or signs of trauma. Normal cervical lordotic curve and full flexion and extension of cervical spine. Lumbar: Straight leg raising in the sitting position is (equivocal) for LLE radicular pain. (+)painto palpation lumbar paraspinal muscles. Facet loading is (+) bilaterally. (-) pain to palpation over the PSIS, sacroiliac joint provocative maneuvers are (-) for pain reproduction bilaterally. Extremities: Peripheral joint ROM is full and pain free without obvious instability or laxity in all four extremities. No deformities, edema, or skin discoloration. Good capillary refill. Gait: Gait is antalgic NEURO: Bilateral upper and lower extremity coordination are intact. Muscle stretch reflexes are physiologic and symmetric. Plantar response are downgoing. No loss of sensation is noted. ASSESSMENT AND MEDICAL DECISION MAKING: This is a 73 year old female with low back and LLE pain, suspect recent lumbar disc herniation vs annular tear claudication+ LLE Radicular pain is somewhat improved with time now but the claudication persists. Prior to this episode she simply managed the infrequent low back pain with periodic rest/sitting. She was seen by me in 2017 for a similar problem though since it had improved she was lost to follow-up thereafter Dx: Cardiac pacemaker in situ Shortness of breath Acute exacerbation of chronic low back pain (primary encounter diagnosis) Chronic anticoagulation Spinal stenosis of lumbar region with neurogenic claudication PLAN: MRI L Return to clinic (in-person office visit or virtual visit/telemedicine) after all above completed fully. I spent a total of 45 minutes on the date of the service which included: *preparing to see the patient *[id number] patient care *completing clinical documentation *obtaining and/or reviewing separately obtained history *performing a medically appropriate examination *counseling and educating the patient/family/caregiver *ordering medications, tests, or procedures *communicating with other HCPs (not separately reported) *independently interpreting results (not separately reported) *communicating results to the patient/family/caregiver *care coordination (not separately reported). Of this, greater than 50% of this was spent in the presence of the patient for purposes of education and counseling regarding the diagnosis and treatment of pain. Patient is aware that any diagnostic testing is best discussed in person to fully explain the significance and resulting treatment plan. Patient is aware that they will need a follow up office visit/virtual visit for proper care. I answered the patient's questions regarding this. I discussed healthy habits, lifestyle changes and physical activity as well as disease prevention/maintenance, including where applicable the impact of tobacco/illicit drugs on pain and its treatment. It will be communicated with the referring or consulting physician above via electronic record, fax, or mail. Patient agrees with above. Héctor Fairchild MD June 13, 2023 documented in this encounterRiver[facility] Institute01-31-2024 History of Present illness Narrative* Ronit Doan DO - 06/07/2023 1:30 PM EST Subjective Reason for Visit: Pau Muñoz is an 73 y.o. female here for a Medicare Wellness visit. Reviewed all medications by prescribing practitioner or clinical pharmacist (such as prescriptions,OTCs, herbal therapies and supplements) and documented in the medical record. HPI She was here at end of April She is going to see Dr Moy Fairchild at [facility] at recommendation of Dr López for her back; he wanted her to see a spine doctor because of her hip/buttock pain She says that in the spring she will probably have right carpal tunnel syndrome She did note that her bowels are back to normal for her She did try farxiga prescribed by her size roller operator, but was unable to tolerate due to side effects Patient Care Team: Ronit Doan DO as PCP - General Ronit Doan DO as PCP - MSSP ACO Attributed Provider Timothy Palacio DO as Consulting Physician (Cardiology) Charline Hagen DO as Consulting Physician (Cardiology) Shanique Sebastian LPN as Shovel Oiler (Case Management) Review of Systems Objective Vitals: BP 114/62 (BP Location: Left arm, Patient Position: Sitting, BP Cuff Size: Adult) Pulse 85 Resp16 Ht 1.524 m (5') Wt 85.5 kg (188 lb 6.4 oz) BMI 36.79 kg/m GEN: NAD HEENT: normal NECK: no adenopathy, no thyroid enlargment LUNGS: CTAB CV: reg S1/S2 no murmurs EXT: no leg edema Assessment/Plan Problem List Items Addressed This Visit None #1 encounter for preventive healthcare visit/Medicare wellness visit she is doing well overall. She is due for mammogram and she wishes to continue with them at this point due to breast cancer history in her family and history of prior breast biopsies. She had a colonoscopy last in [address] Yanes. She gets her INR checked once a month now at the [facility]. She has otherwise been feeling well and has no new issues. She will see a customer solutions specialist due to the left-sided symptoms she had been having. She will see me again in 3 months. Lab orders entered. [facility] Work Phone: [phone]) 923-839101-31-2024 Instructions* Patient Instructions* Ronit Doan DO - 06/07/2023 1:30 PM EST You are doing well. Schedule mammogram. See me again in 3 months. Close to next visit, get blood test done after fasting. documented in this [facility] Work Phone: 1(790) 491-811401-09-2024 History of Present illness Narrative* Charline Hagen, DO - 05/16/2023 2:45 PM EST Chief Complaint: Follow-up, Coronary Artery Disease, Heart Failure, Hyperlipidemia, Hypertension, and Atrial Fibrillation History Of Present Illness: Pau Muñoz is a 73 y.o. female presenting with CV dz. To ED 04/17/23 with SOB>Was told she had "CHF".Had IV Lasix. started Farxiga Breathing OK now No CP/palpitations/dizziness/LH /edema No bleeding with warfarin Last Recorded Vitals: Vitals: 05/16/23 1453 05/16/23 1514 BP: 148/76 118/58 BP Location: Right arm Patient Position: Sitting BP Cuff Size: Adult Pulse: 88 SpO2: 97% Weight: 85.7 kg (189 lb) Height: 1.524 m (5') Allergies: Cephalexin, Iodinated contrast media, Levofloxacin, Sulfa (sulfonamide antibiotics), and Sulfamethoxazole-trimethoprim Outpatient Medications: Current Outpatient Medications Medication Instructions Bacillus coagulans 10 billion cell capsule,delayed release(DR/EC) oral cetirizine (ZyrTEC) 10 mg capsule 1 capsule, oral, Daily dapagliflozin propanediol (FARXIGA) 10 mg, oral, Daily dilTIAZem CD (CARDIZEM CD) 240 mg, oral, Every 12 hours esomeprazole (NEXIUM) 20 mg, oral, Daily before breakfast, Do not open capsule. Pt gets otc gaquzivowpe-ajpigqssf-vkqfmorc (Trelegy Ellipta) 200-62.5-25 mcg blister with device 1 puff, inhalation, Daily furosemide (LASIX) 40 mg, oral, Every morning furosemide (LASIX) 20 mg, oral, Daily, Every evening ipratropium-albuteroL (Duo-Neb) 0.5-2.5 mg/3 mL nebulizer solution 3 mL, nebulization, Every 6 hours RT levalbuterol (Xopenex) 45 mcg/actuation inhaler 2 puffs, inhalation, Every 4 hours PRN lisinopril 10 mg, oral, Daily magnesium oxide 500 mg capsule 1 capsule, oral, Daily methocarbamol (ROBAXIN) 750 mg, oral, 3 times daily PRN nitroglycerin (NITROSTAT) 0.4 mg, sublingual, Every 5 min PRN pravastatin (PRAVACHOL) 40 mg, oral, Daily traMADol (ULTRAM) 50 mg, oral, Every 8 hours PRN warfarin (Coumadin) 2.5 mg tablet Take once daily . warfarin sodium (COUMADIN ORAL) 1.25 mg, oral, Daily, Takes Monday//monday Physical Exam: Constitutional: General: Awake. Appearance: Healthy appearance. Not in distress. Obese. Neck: Vascular: No JVR. JVD normal. Pulmonary: Effort: Pulmonary effort is normal. Breath sounds: Normal breath sounds. No wheezing. No rhonchi. No rales. Chest: Chest wall: Not tender to palpatation. Cardiovascular: PMI at left midclavicular line. Normal rate. Regular rhythm. Normal S1. Normal S2. Murmurs: There is no murmur. No gallop. No click. No rub. Pulses: Intact distal pulses. Edema: Peripheral edema absent. Abdominal: General: Abdomen is protuberant. Bowel sounds are normal. Palpations: Abdomen is soft. Tenderness: There is no abdominal tenderness. Musculoskeletal: Normal range of motion. General: No tenderness. Skin: General: Skin is warm and dry. Neurological: General: No focal deficit present. Mental Status: Alert and oriented to person, place and time. Last Labs: CBC - Lab Results Component Value Date WBC 8.1 04/24/2023 HGB 13.5 04/24/2023 HCT 41.4 04/24/2023 MCV 85 04/24/2023 PLT 310 04/24/2023 CMP - Lab Results Component Value Date CALCIUM 9.3 04/24/2023 PHOS 3.4 08/01/2021 PROT 7.6 04/24/2023 ALBUMIN 4.1 04/24/2023 AST 23 04/24/2023 ALT 18 04/24/2023 ALKPHOS 74 04/24/2023 BILITOT 0.4 04/24/2023 LIPID PANEL - Lab Results Component Value Date CHOL 164 08/16/2022 TRIG 194 (H) 08/16/2022 HDL 69.4 08/16/2022 CHHDL 2.4 08/16/2022 LDLF 56 08/16/2022 VLDL 39 08/16/2022 NHDL 94 09/16/2021 RENAL FUNCTION PANEL - Lab Results Component Value Date GLUCOSE 163 (H) 04/24/2023 NA 132 (L) 04/24/2023 K 4.5 04/24/2023 CL 99 04/24/2023 CO2 24 04/24/2023 ANIONGAP 14 04/24/2023 BUN 16 04/24/2023 CREATININE 0.89 04/24/2023 CALCIUM 9.3 04/24/2023 PHOS 3.4 08/01/2021 ALBUMIN 4.1 04/24/2023 Lab Results Component Value Date BNP 41 04/07/2023 HGBA1C 6.5 (H) 02/10/2023 Lab review: I have personally reviewed the laboratory result(s) Problem List Items Addressed This Visit Coronary atherosclerosis Overview Admitted 03/06/2021 with SOB / elevated troponin 03/08/2021 cardiac cath with moderate nonobstructive dz No current angina On diltiazem / statin / warfarin - carries SL NTG Follow Essential hypertension Overview BP OK on current medications Weight loss / salt restriction Dyslipidemia Overview Patient with CV dz and elevated blood sugar, thus start Vascepa On moderate intensity statin - has not tolerated high intensity 08/2022 LDL=56 Presence of cardiac pacemaker Overview 09/02/2008 ... Implanted By Randy Crooks ... Medtronic Sensia, model SEDR01, serial number [id number] Lead1 = Medtronic, model 5076, serial #[id number] ... location Right Lead2 = Medtronic, model 5076, serial #[id number] Hz of CHB ... Follows with EP (HFpEF) heart failure with preserved ejection fraction (CMS/HCC) Overview Had mild CHF per CXR / BNP on 03/06/2021 [facility] admit Had ED visit 04/2023 No current S/S of volume overload Farxiga started by On Lasix Watch salt intake Relevant Medications furosemide (Lasix) 40 mg tablet Paroxysmal atrial fibrillation (CMS/HCC) Overview On warfarin No recent sustained palpitations Follows with EP Carotid stenosis - Primary Overview s/p 07/30/2021 L CEA on warfarin / statin 08/2022 carotid duplex with less than 50% stenosis B/L Weight loss Watch salt intake Charline Hagen DO documented in [facility] Work Phone: [phone]) 188-771401-09-2024 Instructions* Patient Instructions* Charline Hagen DO - 05/16/2023 2:45 PM EST Weight loss Watch salt intake documented in [facility]Children[facility] Work Phone: 1(753) 691-156701-03-2024 History of Present illness Narrative* Yg López MD - 05/10/2023 11:00 AM EST Subjective Patient ID: Pau Muñoz is a 72 y.o. female. Chief Complaint: Pain of the Left Hip Last Surgery: No surgery found Last Surgery Date: No surgery found HPI Patient is a 72-year-old female who comes in with a complaint of left low back pain. She states shewill notice spasms at least twice a week. When this occurs she has difficulty walking because of pain. She does notice some improvement when using a walker or pushing a cart when shopping. She deniesradicular symptoms in her left lower extremity. She denies any groin pain. Objective Ortho Exam Patient is in no acute distress. Today she walks with no evidence of antalgic gait. She is tender along the left lower paraspinal musculature. She has no tenderness over the greater trochanter. She has no complaints of groin pain with hip flexion or rotation. Assessment/Plan Encounter Diagnoses: Left low back pain, unspecified chronicity, unspecified whether sciatica present Patient has pain that is likely due to lumbar spine pathology. At this point explained to the patient her best bet would be to follow-up with a pain management doctor. She was given a referral for this. She will follow-up with me as her orthopedic symptoms dictate. documented in this [facility] Work Phone: [phone]) 477-362412-29-2023 History of Present illness Narrative* Ronit Mukherjee Olimpia, - 05/05/2023 12:00 PM EST Subjective Pau Muñoz is a 73 y.o. female who presents for Follow-up (Pt here for hospital follow up.). Apr 17 woke up and had trouble breating, weight went up 4 lbs, at ER got IV lasix She saw Dr Palacio who wanted to start jardiance or farxiga She will see Dr Hagen, her other cardio in MayApr 23 she woke up with severe left hip spasms; tramadol did not help No trauma; was sudden onset of pain that she described as more severe than her heart surgery She called 911 and they took her to [facility] ER in [place] She was in severe pain , got some IV pain meds They admitted her and she went to [facility] and was there for 24 hours She saw PT and they supplied her a walker She says kimberly got so many pain meds that she is constipated: she will have huge bm's She says her bowels are not the same She is seeing Dr López She says she can't lay on her left hip OARRS: Ronit Doan, DO on 05/05/2023 11:32 AM I have personally reviewed the OARRS report for Pau Muñoz. I have considered the risks of abuse, dependence, addiction and diversion and I believe that it is clinically appropriate for Elma to be prescribed this medication Is the patient prescribed a combination of a benzodiazepine and opioid? No Last Urine Drug Screen / ordered today: Yes Recent Results (from the past 8760 hour(s)) OPIATE/OPIOID/BENZO PRESCRIPTION COMPLIANCE Collection Time: 08/11/22 10:13 AM Result Value Ref Range DRUG SCREEN COMMENT URINE SEE BELOW Creatine, Urine 56.5 mg/dL Amphetamine Screen, Urine PRESUMPTIVE NEGATIVE NEGATIVE Barbiturate Screen, Urine PRESUMPTIVE NEGATIVE NEGATIVE Cannabinoid Screen, Urine PRESUMPTIVE NEGATIVE NEGATIVE Cocaine Screen, Urine PRESUMPTIVE NEGATIVE NEGATIVE PCP Screen, Urine PRESUMPTIVE NEGATIVE NEGATIVE 7-Aminoclonazepam <25 Cutoff <25 ng/mL Alpha-Hydroxyalprazolam <25 Cutoff <25 ng/mL Alpha-Hydroxymidazolam <25 Cutoff <25 ng/mL Alprazolam <25 Cutoff <25 ng/mL Chlordiazepoxide <25 Cutoff <25 ng/mL Clonazepam <25 Cutoff <25 ng/mL Diazepam <25 Cutoff <25 ng/mL Lorazepam <25 Cutoff <25 ng/mL Midazolam <25 Cutoff <25 ng/mL Nordiazepam <25 Cutoff <25 ng/mL Oxazepam <25 Cutoff <25 ng/mL Temazepam <25 Cutoff <25 ng/mL Zolpidem <25 Cutoff <25 ng/mL Zolpidem Metabolite (ZCA) <25 Cutoff <25 ng/mL 6-Acetylmorphine <25 Cutoff <25 ng/mL Codeine <50 Cutoff <50 ng/mL Hydrocodone <25 Cutoff <25 ng/mL Hydromorphone <25 Cutoff <25 ng/mL Morphine Urine <50 Cutoff <50 ng/mL Norhydrocodone <25 Cutoff <25 ng/mL Noroxycodone <25 Cutoff <25 ng/mL Oxycodone <25 Cutoff <25 ng/mL Oxymorphone <25 Cutoff <25 ng/mL Tramadol >1000 (A) Cutoff <50 ng/mL O-Desmethyltramadol >1000 (A) Cutoff <50 ng/mL Fentanyl <2.5 Cutoff<2.5 ng/mL Norfentanyl <2.5 Cutoff<2.5 ng/mL METHADONE CONFIRMATION,URINE <25 Cutoff <25 ng/mL EDDP <25 Cutoff <25 ng/mL Results are as expected. Controlled Substance Agreement: Date of the Last Agreement: 08/07/2022) Reviewed Controlled Substance Agreement including but not limited to the benefits, risks, and alternatives to treatment with a Controlled Substance medication(s). Opioids: What is the patient's goal of therapy? Treatment of low back pain Is this being achieved with current treatment? yes I have calculated the patient's Morphine Dose Equivalent (MED): I have considered referral to Pain Management and/or a specialist, and do not feel it is necessary at this time. I feel that it is clinically indicated to continue this current medication regimen after consideration of alternative therapies, and other non-opioid treatment. Opioid Risk Screening: No data recorded Pain Assessment: No data recorded Review of Systems Objective BP 127/66 (BP Location: Left arm, Patient Position: Sitting, BP Cuff Size: Adult) Pulse 82 Resp16 Ht 1.524 m (5') Wt 85.9 kg (189 lb 6.4 oz) BMI 36.99 kg/m Physical Exam GEN: NAD HEENT: normal NECK: no adenopathy, no thyroid enlargment LUNGS: CTAB CV: reg S1/S2 no murmurs EXT: no leg edema Assessment/Plan Problem List Items Addressed This Visit Left ventricular dysfunction she seems clinically stable. Went to ER with some volume overload, likely to begin an SGLT2 med. Longstanding persistent atrial fibrillation (CMS/HCC) she is on diltiazem and warfarin Type 2 diabetes mellitus with hyperglycemia, without long-term current use of insulin (CMS/HCC) Constipation: she was concerned due to changes of volume and appearance of her stools. Recommend miralaz as needed. Spondylosis with myelopathy, lumbar region Other Visit Diagnoses OSTEOARTHRITIS OF LEFT HIP/ACUTE LEFT HIP PAIN tramadol refilled. Was in hospital briefly due to being unable to ambulate due to her left hip pain. She is going to see ortho. Relevant Medications traMADol (Ultram) 50 mg tablet documented in this [facility]Children[facility] Work Phone: 1([phone]) 348-674712-29-2023 Instructions* Patient Instructions* Ronit Doan DO - 05/05/2023 12:00 PM EST For bowels: I recommend trying Miralax ( or generic) . Do not take the colace. Can use once a day for a few days until things are back to normal. I also recommend trying Senekot which is a stimulant laxative. Could try doing them at different times of day. documented in this [facility]Children[facility] Work Phone: [phone]) 861-837512-18-2023 Nurse Note* Rupert Cohen RN - 04/24/2023 1:54 PM EST Discharge instructions provided using teach back method. Pt's health related risk factors discussedwith pt. pt educated to look for any worsening sign and symptoms. Pt educated to seek medical attention if experience any medical emergency. Pt aware to follow up with outpatient clinics as scheduled. Home going meds reviewed with pt. Pt verbalized understanding of disposition and discharge instructions. All questions answered to patient's satisfaction and within nursing scope of practice. Vitalsstable, IV removed. Rupert Cohen Discharge R.N. [facility]12-18-2023 Nurse Note* Rupert Cohen RN - 04/24/2023 1:54 PM EST Discharge instructions provided using teach back method. Pt's health related risk factors discussedwith pt. pt educated to look for any worsening sign and symptoms. Pt educated to seek medical attention if experience any medical emergency. Pt aware to follow up with outpatient clinics as scheduled. Home going meds reviewed with pt. Pt verbalized understanding of disposition and discharge instructions. All questions answered to patient's satisfaction and within nursing scope of practice. Vitalsstable, IV removed. Rupert Cohen Discharge R.N. documented in this [facility]Children[facility] Work Phone: [phone]) 773-463312-18-2023 History of Present illness Narrative* Alda Rosen OT - 04/24/2023 12:32 PM EST Occupational Therapy Evaluation Patient Name: Pau Muñoz Today's Date: 04/24/2023 Time Calculation Start Time: 1048 Stop Time: 1101 Time Calculation (min): 13 min Assessment: OT Assessment: Pt presents to OT this date with increased low back and L hip pain however appears to be near baseline level of functioning for ADLs. PT issued pt a walker this date and pt initially distant SUP for transfers but progressed to Mod I with functional transfers/mobility by end of session. Pt politely declining home OT. Will D/C OT order in system. Prognosis: Good Medical Staff Made Aware: Yes End of Session Communication: Bedside nurse End of Session Patient Position: Up in chair, Alarm off, not on at start of session (PT in room) Prognosis: Good Medical Staff Made Aware: Yes Strengths: Ability to acquire knowledge, Premorbid level of function Plan: No Skilled OT: No acute OT goals identified OT Discharge Recommendations: No further acute OT, No OT needed after discharge Equipment Recommended upon Discharge: Wheeled walker OT - OK to Discharge: Yes (OT eval and D/C this date) Subjective General: General Reason for Referral: Pt [place] [facility] [place]/t acute L hip and low back pain. Referred By: Kira Olvera MD Past Medical History Relevant to Rehab: OA, HTN, DLD, DM2, carotid artery dz s/p endartectomy, HFpEF, complete AVB and Afib s/p PPM, B CTS s/p L CTR sx. Family/Caregiver Present: Yes Co-Treatment: PT Co-Treatment Reason: to maximize participation and safety with skilled intervention and to facilitate D/C planning Prior to Session Communication: Bedside nurse Patient Position Received: Bed, 3 rail up, Alarm off, not on at start of session General Comment: Pt supine in bed upon arrival and agreeable to OT Eval/tx. Pt fully participatory in session. Precautions: Medical Precautions: Fall precautions, Cardiac precautions (pacemaker) Pain: Pain Assessment Pain Assessment: 0-10 Pain Score: 4 Pain Type: Acute pain Pain Location: Back Pain Orientation: Left Pain Radiating Towards: hip Pain Descriptors: Spasm ("grabbing") Pain Frequency: Intermittent Clinical Progression: Gradually improving Pain Interventions: Repositioned, Ambulation/increased activity Objective Cognition: Overall Cognitive Status: Within Functional Limits Orientation Level: Oriented X4 Home Living: Type of Home: Apartment (5th floor) Lives With: Alone Home Adaptive Equipment: None Home Layout: One level Home Access: Level entry, Elevator Bathroom Shower/Tub: Tub/shower unit Bathroom Toilet: Standard Bathroom Equipment: Grab bars in shower (x3 grab bars in shower) Prior Function: Level of Petroleum: Independent with ADLs and functional transfers, Independent with homemaking with ambulation Receives Help From: Friends ADL Assistance: Independent Homemaking Assistance: Independent Ambulatory Assistance: Independent 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 Denies recent falls. + driving. ADL: LE Dressing Assistance: Modified independent (Device) (to don/doff B socks via figure four technique at EOB) Activity Tolerance: Endurance: Endurance does not limit participation in activity Bed Mobility/Transfers: Bed Mobility Bed Mobility: Yes Bed Mobility 1 Bed Mobility 1: Supine to sitting Level of Assistance 1: Close supervision, Minimal verbal cues Bed Mobility Comments 1: cues for log roll technique to minimize pain, pt reporting preferring to do it "my way" Transfers Transfer: Yes Transfer 1 Technique 1: Sit to stand, Stand to sit Transfer Device 1: Walker Transfer Level of Assistance 1: Distant supervision, Minimal verbal cues (Mod I second trial) Trials/Comments 1: from EOB x2 trials Transfers 2 Transfer From 2: Bed to Transfer to 2: Chair with arms Technique 2: Stand pivot Transfer Device 2: Walker Transfer Level of Assistance 2: Modified independent Ambulation/Gait Training: Ambulation/Gait Training Ambulation/Gait Training Performed: Yes Ambulation/Gait Training 1 Comments/Distance (ft) 1: Pt functionally navigated x min household distance in room using FWW withdistant Supervision. No LOB noted. Sitting Balance: Static Sitting Balance Static Sitting-Balance Support: Bilateral upper extremity supported Static Sitting-Level of Assistance: Independent Dynamic Sitting Balance Dynamic Sitting-Balance Support: No upper extremity supported Dynamic Sitting-Comments: Independent Standing Balance: Static Standing Balance Static Standing-Balance Support: Bilateral upper extremity supported Static Standing-Level of Assistance: Independent Static Standing-Comment/Number of Minutes: using FWW Dynamic Standing Balance Dynamic Standing-Balance Support: No upper extremity supported Dynamic Standing-Comments: Independent Sensation: Sensation Comment: pt reports carpal tunnel in B UEs, numbness Strength: Strength Comments: B UEs WFL Coordination: Movements are Fluid and Coordinated: Yes Extremities: RUE RUE : Within Functional Limits and LUE LUE: Within Functional Limits Outcome Measures:[facility] Daily Activity Putting on and taking off regular lower body clothing: None Bathing (including washing, rinsing, drying): None Putting on and taking off regular upper body clothing: None Toileting, which includes using toilet, bedpan or urinal: None Taking care of personal grooming such as brushing teeth: None Eating Meals: None Daily Activity - Total Score: 24 Education Documentation Body Mechanics, taught by Alda Rosen OT at 04/24/2023 12:29 PM. Learner: Patient Readiness: Acceptance Method: Explanation, Demonstration Response: Verbalizes Understanding Precautions, taught by Alda Rosen OT at 04/24/2023 12:29 PM. Learner: Patient Readiness: Acceptance Method: Explanation, Demonstration Response: Verbalizes Understanding ADL Training, taught by Alda Rosen OT at 04/24/2023 12:29 PM. Learner: Patient Readiness: Acceptance Method: Explanation, Demonstration Response: Verbalizes Understanding Education Comments No comments found. * Janae Londno, PT - 04/24/2023 11:45 AM EST Physical Therapy Physical Therapy Evaluation & Treatment Patient Name: Pau Muñoz Today's Date: 04/24/2023 Time Calculation Start Time: 1047 Stop Time: 1110 Time Calculation (min): 23 min Assessment/Plan PT Assessment PT Assessment Results: Decreased strength, Decreased mobility, Pain Rehab Prognosis: Good Evaluation/Treatment Tolerance: Patient tolerated treatment well Medical Staff Made Aware: Yes Strengths: Ability to acquire knowledge, Capable of completing ADLs semi/independent, Housing layout, Physical health, Premorbid level of function End of Session Communication: Bedside nurse Assessment Comment: 72 year-old F presents with pain, L hip weakness, decreased ambulation and transfers, and unsteadiness; can benefit from skilled PT intervention to assist with discharge planning and address the aforementioned issues to enable her to return to her prior level of function, which was IND. Pt is modified IND with RW by end of session and was issued a RW for home-going. Pt declines home PT, reporting she feel confident with her mobility with the use of the walker No further acute PT needs identified. Will d/c orders. End of Session Patient Position: Up in chair, Alarm off, not on at start of session (needs in reach) IP OR SWING BED PT PLAN Inpatient or Swing Bed: Inpatient PT Plan Treatment/Interventions: Gait training PT Plan: PT Eval only PT Eval Only Reason: Only single session needed (safe to return to home) PT Frequency: PT eval only PT Discharge Recommendations: Low intensity level of continued care Equipment Recommended upon Discharge: Wheeled walker (issued to pt this visit) PT Recommended Transfer Status: Independent, Assistive device (with walker) PT - OK to Discharge: Yes Subjective General Visit Information: General Reason for Referral: Difficulty walking 2/2 acute L hip and low back pain Referred By: Kira Olvera MD Past Medical History Relevant to Rehab: OA, HTN, DLD, DM2, carotid artery dz s/p endartectomy, HFpEF, complete AVB and Afib s/p PPM, B CTS s/p L CTR sx. Co-Treatment: OT Co-Treatment Reason: to maximize participation and safety with skilled intervention; pt is also a STAT eval for d/c. Prior to Session Communication: Bedside nurse Patient Position Received: Bed, 3 rail up, Alarm off, not on at start of session General Comment: Pt agreeable to session. 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 Function Comments: Pt IND community ambulator without AD Precautions: Precautions Medical Precautions: Fall precautions, Cardiac precautions (pacemaker) Objective Pain: Pain Assessment Pain Assessment: 0-10 Pain Score: 4 Pain Type: Acute pain Pain Location: Back Pain Orientation: Left Pain Radiating Towards: hip Pain Descriptors: Spasm (grabbing) Pain Frequency: Intermittent Clinical Progression: Gradually improving Pain Interventions: Repositioned, Ambulation/increased activity Response to Interventions: PT to pt tolerance Cognition: Cognition Overall Cognitive Status: Within Functional Limits Attention: Within Functional Limits Memory: Within Funtional Limits Safety/Judgement: Within Functional Limits Impulsive: Mildly Processing Speed: Within funtional limits General Assessments: General Observation General Observation: Pt expressed frustration about OBS status and having to d/c today. Activity Tolerance Endurance: Endurance does not limit participation in activity Activity Tolerance Comments: good Coordination Movements are Fluid and Coordinated: Yes Postural Control Postural Control: Within Functional Limits Static Sitting Balance Static Sitting-Balance Support: No upper extremity supported, Feet supported Static Sitting-Level of Assistance: Independent Dynamic Sitting Balance Dynamic Sitting-Balance Support: No upper extremity supported, Feet supported Dynamic Sitting-Balance: Forward lean (donning/doffing socks) Dynamic Sitting-Comments: IND Static Standing Balance Static Standing-Balance Support: No upper extremity supported Static Standing-Level of Assistance: Distant supervision Static Standing-Comment/Number of Minutes: modified IND with support of walker Dynamic Standing Balance Dynamic Standing-Balance Support: No upper extremity supported Dynamic Standing-Balance: Turning (standing with eyes closed, sternal push) Dynamic Standing-Comments: IND Functional Assessments: Bed Mobility Bed Mobility: Yes Bed Mobility 1 Bed Mobility 1: Supine to sitting Level of Assistance 1: Close supervision, Minimal verbal cues Bed Mobility Comments 1: advised to use logroll but pt prefers to do it "my way" Transfers Transfer: Yes Transfer 1 Technique 1: Sit to stand, Stand to sit Transfer Device 1: Walker Transfer Level of Assistance 1: Distant supervision, Minimal verbal cues Trials/Comments 1: 3 trials Ambulation/Gait Training Ambulation/Gait Training Performed: Yes Ambulation/Gait Training 1 Surface 1: Level tile Device 1: Rolling walker Assistance 1: Distant supervision, Minimal verbal cues Quality of Gait 1: Decreased step length, Antalgic (decreased darci) Comments/Distance (ft) 1: 30'x2 Stairs Stairs: No Extremity/Trunk Assessments: RUE RUE : Within Functional Limits LUE LUE: Within Functional Limits RLE RLE : Within Functional Limits LLE LLE : Exceptions to WFL Strength LLE LLE Overall Strength: (grossly 4/5 except hip flexors limited to 3+/5 d/t pain) Treatments: Ambulation/Gait Training Pt provided instruction in safe sit<->stand technique to enable him/her to move in/out of bed/chair safely; pt required minimal verbal cues for proper hand placements and to scoot to edge of sitting surface to facilitate ease of sit- >stand, and to line up to and reach back for sitting surface before sitting. Pt able to stand to walker with no vc's by end of session. Pt provided gait training with RW to enable her to safely ambulate household distances; initially required occasional verbal cues for walker management and positioning of walker, but was able to perform without cus or assist by end of session. Outcome Measures: [facility] Basic Mobility Turning from your back to your side while in a flat bed without using bedrails: None Moving from lying on your back to sitting on the side of a flat bed without using bedrails: None Moving to and from bed to chair (including a wheelchair): None Standing up from a chair using your arms (e.g. wheelchair or bedside chair): None To walk in hospital room: None Climbing 3-5 steps with railing: A little Basic Mobility - Total Score: 23 Encounter Problems Encounter Problems (Resolved) Mobility STG - Patient will ambulate household distances with RW independently. (Met) Start: 04/24/23 Expected End: 04/24/23 Resolved: 04/24/23 Transfers STG - Patient will transfer sit to and from stand with RW independently. (Met) Start: 04/24/23 Expected End: 04/24/23 Resolved: 04/24/23 Education Documentation Mobility Training, taught by Janae London PT at 04/24/2023 11:41 AM. Learner: Patient Readiness: Acceptance Method: Explanation Response: Verbalizes Understanding, Demonstrated Understanding Comment: Gait and transfer trainng with RW provided; pt issued RW for home going. Education Comments No comments found. * Mary Jo Horta CPhT - 04/24/2023 9:16 AM EST Pharmacy Medication History Review Pau Muñoz is a 72 y.o. female admitted for Left hip pain. Pharmacy reviewed the patient's xrkam-eq-zbimpniym medications and allergies for accuracy. The list below reflectives the updated RECOVERY ENGINEER list. Please review each medication in order reconciliation for additional clarification and justification. Medications Prior to Admission Medication Sig Dispense Refill Last Dose Bacillus coagulans 10 billion cell capsule,delayed release(DR/EC) Take by mouth. 04/23/2023 at 0800 cetirizine (ZyrTEC) 10 mg capsule Take 1 capsule (10 mg) by mouth once daily. 04/23/2023 at 0800 dapagliflozin propanediol (Farxiga) 10 mg Take 1 tablet (10 mg) by mouth once daily. (Patient taking differently: Take 1 tablet (10 mg) by mouth once daily. Patient has not started. Not until May 31)30 tablet 11 dilTIAZem CD (Cardizem CD) 240 mg 24 hr capsule Take 1 capsule (240 mg) by mouth every 12 hours for14 days. (Patient taking differently: Take 1 capsule (240 mg) by mouth every 12 hours. Patient still takes Twice a day) 28 capsule 0 04/23/2023 esomeprazole (NexIUM) [address] capsule Take 1 capsule (20 mg) by mouth once daily in the morning. Take before meals. Do not open capsule. Pt gets otc 04/23/2023 idsbuwaaivr-llmiqcuhu-gpxovnat (Trelegy Ellipta) 200-62.5-25 mcg blister with device Inhale 1 puff once daily. 04/23/2023 at 1700 furosemide (Lasix) 20 mg tablet Take 1 tablet (20 mg) by mouth once daily in the evening. 04/23/2023 furosemide (Lasix) 40 mg tablet Take 1 tablet (40 mg) by mouth once daily. (Patient taking differently: Take 1 tablet (40 mg) by mouth once daily in the morning.) 90 tablet 3 04/23/2023 ipratropium-albuteroL (Duo-Neb) 0.5-2.5 mg/3 mL nebulizer solution Take 3 mL by nebulization every 6 hours. 180 mL 3 04/23/2023 at 1700 levalbuterol (Xopenex) 45 mcg/actuation inhaler Inhale 2 puffs every 4 hours if needed for wheezing. 04/23/2023 at 0800 lisinopril 10 mg tablet Take 1 tablet (10 mg) by mouth once daily. 90 tablet 2 04/23/2023 at 1200 magnesium oxide 500 mg capsule Take 1 capsule (500 mg) by mouth once daily. 04/23/2023 at 0800 nitroglycerin (Nitrostat) 0.[address] 1 tablet (0.4 mg) under the tongue every 5 minutesif needed for chest pain. pravastatin (Pravachol) 40 mg tablet Take 1 tablet (40 mg) by mouth once daily. 90 tablet 3 04/23/2023 at 1800 traMADol (Ultram) 50 mg tablet Take 1 tablet (50 mg) by mouth every 8 hours if needed for severe pain (7 - 10). 90 tablet 0 04/23/2023 at 1300 warfarin (Coumadin) 2.5 mg tablet Take once daily . (Patient taking differently: Take 1 tablet (2.5mg) by mouth 4 times a day. [id number]-[id number]-[id number]-Mon) 90 tablet 3 04/23/2023 at 1800 warfarin sodium (COUMADIN ORAL) Take 1.25 mg by mouth once daily. Takes Monday//monday Spoke to the patient, Patient has not started Farxiga because of Insurance. Patient still takes Diltiazem twice a day And her Lasix she takes 40 mg in the morning and 20 mg at dinner The list below reflectives the updated allergy list. Please review each documented allergy for additional clarification and justification. Allergies Reviewed by Juan Barboza RN on 04/24/2023 Severity Reactions Comments Cephalexin Not Specified Unknown, Other, Hives Pt let us know that she had this reaction when this was last prescribed on 05/21/09. Iodinated Contrast Media Not Specified Unknown States that she passed out Levofloxacin Low Rash, Hives, Other Sulfa (sulfonamide Antibiotics) Low Rash, Hives Sulfamethoxazole-trimethoprim Low Rash, Unknown Below are additional concerns with the patient's RECOVERY ENGINEER list. Mary Jo Horta CPhT documented in this [facility] Work Phone: [phone]) 214-258412-18-2023 History and physical note* Kira Olvera MD - 04/24/2023 4:31 AM EST Images from the original note were not included. Medical Group History and Physical ASSESSMENT: Left hip pain: Patient with severe left hip pain, difficulty ambulating. X-rays do not show any evidence of fracture. She has degenerative joint disease at baseline. Her goal is to have pain under control and be able to walk and go back home. Persistent A-fib: Rate controlled, status post PPM Type 2 diabetes mellitus, not on insulin Essential hypertension History of coronary artery disease: No complaints of chest pain at this time. PLAN Pain control. Started on Robaxin, Dilaudid as needed PT/OT Continue other home medication VTE Prophylaxis: on coumadin HISTORY OF PRESENT ILLNESS: Chief Complaint: Left hip pain History Of Present Illness: Pau Muñoz is a 72 y.o. female with a significant past medical history of type 2 diabetes mellitus, chronic A-fib, PPM, degenerative joint disease, hypertension presenting to the ED with complaints of left hip pain. Patient states symptoms started yesterday morning, pain has been gripping. She lives alone, has not been able to carry out her daily activities due to limitations from the pain and not being able to walk around without assistance. She takes Ultram at bedtime, has not helped with pain control. Review of systems: 10 point review of systems is otherwise negative except as mentioned above. PAST HISTORIES: Past Medical History: She has a past medical history of Body mass index (BMI) 33.0-33.9, adult (04/16/2019), Body mass index (BMI) 34.0-34.9, adult (04/06/2020), Body mass index (BMI)30.0-30.9, adult (07/16/2019), COVID-19 (08/12/2022), Ganglion, left wrist (10/29/2019), Irritable bowel syndrome with diarrhea (04/28/2016), Pain in right knee (12/26/2018), Personal history of diseases of the skin and subcutaneous tissue (04/16/2019), Personal history of other (healed) physical injury and trauma (11/27/2018), Personalhistory of other diseases of the circulatory system, Personal history of other diseases of the circulatory system, Personal history of other diseases of the musculoskeletal system and connective tissue (05/04/2019), Personal history of other endocrine, nutritional and metabolic disease (10/16/2018), Personal history of other infectious and parasitic diseases (09/16/2016), Personal history of other medical treatment (07/16/2019), Personal history of other specified conditions (03/06/2020), Personal history of pneumonia (recurrent) (08/13/2019), Unspecified asthma with (acute) exacerbation (06/28/2019), and Unspecified fall, initial encounter (11/06/2018). Past Surgical History: She has a past surgical history that includes Cardiac pacemaker placement (01/31/2018); Other surgical history (01/31/2018); Other surgical history (09/17/2021); Other surgical history (09/21/2021); Other surgical history (03/18/2022); Other surgical history (03/18/2022); Other surgical history (); Other surgical history (11/17/2020); Other surgical history (11/17/2020); Other surgical history (10/16/2018); Other surgical history (10/16/2018); CT angio neck (07/22/2021); and CT angio head w and wo IV contrast (07/22/2021). Social History: She reports that she has never smoked. She has never been exposed to tobacco smoke. She has never used smokeless tobacco. She reports that she does not currently use alcohol. She reports that she does not use drugs. Family History: Family History Problem Relation Name Age of Onset Breast cancer Mother Heart attack Mother Coronary artery disease Father Lung cancer Father Breast cancer Sister Allergies: Cephalexin, Iodinated contrast media, Levofloxacin, Sulfa (sulfonamide antibiotics), and Sulfamethoxazole-trimethoprim PHYSICAL EXAMS: Physical Exam Constitutional: Appearance: She is not ill-appearing or diaphoretic. HENT: Right Ear: External ear normal. Left Ear: External ear normal. Eyes: Pupils: Pupils are equal, round, and reactive to light. Cardiovascular: Pulses: Normal pulses. Pulmonary: Effort: Pulmonary effort is normal. No respiratory distress. Breath sounds: Normal breath sounds. Abdominal: General: Abdomen is flat. Bowel sounds are normal. There is no distension. Palpations: Abdomen is soft. Tenderness: There is no abdominal tenderness. Musculoskeletal: General: Tenderness present. Skin: General: Skin is warm and dry. Capillary Refill: Capillary refill takes less than 2 seconds. Neurological: General: No focal deficit present. Mental Status: She is alert and oriented to person, place, and time. Mental status is at baseline. Psychiatric: Mood and Affect: Mood normal. OBJECTIVE: Last Recorded Vitals: Vitals: 04/24/23 0353 BP: 131/74 BP Location: Right arm Patient Position: Lying Pulse: 61 Resp: 20 Temp: 36.6 C (97.8 F) TempSrc: Tympanic SpO2: 95% Weight: 84 kg (185 lb 3 oz) Height: 1.524 m (5') Last I/O: No intake/output data recorded. Inpatient Medications: PRN medications: acetaminophen OR acetaminophen OR acetaminophen, polyethylene glycol Outpatient Medications: Prior to Admission medications Medication Sig Start Date End Date Taking? Authorizing Provider Bacillus coagulans 10 billion cell capsule,delayed release(DR/EC) Take by mouth. Historical Provider, cetirizine (ZyrTEC) 10 mg capsule Take 1 capsule (10 mg) by mouth once daily. 08/01/18 Historical Provider, dapagliflozin propanediol (Farxiga) 10 mg Take 1 tablet (10 mg) by mouth once daily. 04/19/23 04/18/24 Timothy Palacio, dilTIAZem CD (Cardizem CD) 240 mg 24 hr capsule Take 1 capsule (240 mg) by mouth every 12 hours for14 days. 02/16/23 03/02/23 Timothy Palacio DO esomeprazole (NexIUM) [address] capsule Take 1 capsule (20 mg) by mouth once daily in the morning. Take before meals. Do not open capsule. Pt gets otc Historical Provider, mgejdhseowu-qpnmgdnti-ishoynhv (Trelegy Ellipta) 200-62.5-25 mcg blister with device Inhale 1 puff once daily. Historical Provider, furosemide (Lasix) 20 mg tablet Take by mouth. Historical Provider, furosemide (Lasix) 40 mg tablet Take 1 tablet (40 mg) by mouth once daily. 04/04/23 04/03/24 Gosia Hagen, DO ipratropium-albuteroL (Duo-Neb) 0.5-2.5 mg/3 mL nebulizer solution Take 3 mL by nebulization every 6 hours. 02/23/23 Ronit Doan, DO levalbuterol (Xopenex) 45 mcg/actuation inhaler Inhale 2 puffs every 4 hours if needed for wheezing. 06/17/22 Historical Provider, lisinopril 10 mg tablet Take 1 tablet (10 mg) by mouth once daily. 03/01/23 Timothy Palacio DO magnesium oxide 500 mg capsule Take 1 capsule (500 mg) by mouth once daily. 08/01/18 Historical Provider, nitroglycerin (Nitrostat) 0.[address] under the tongue. 03/24/21 Historical Provider, pravastatin (Pravachol) 40 mg tablet Take 1 tablet (40 mg) by mouth once daily. 04/20/23 04/19/24 Charline Hagen, DO traMADol (Ultram) 50 mg tablet Take 1 tablet (50 mg) by mouth every 8 hours if needed for severe pain (7 - 10). 02/17/23 Ronit Doan, DO warfarin (Coumadin) 2.5 mg tablet Take once daily . Patient taking differently: Take once daily . Varies 09/09/22 Ronit Doan, DO warfarin sodium (COUMADIN ORAL) Take 1.25 mg by mouth once daily. Takes Monday//monday Historical Provider, doxycycline (Vibramycin) 100 mg capsule Take 1 capsule (100 mg) by mouth every 12 hours. 06/29/22 04/24/23 Historical Provider, MAGNESIUM ORAL Take 800 mg by mouth once daily. 04/24/23 Historical Provider, pravastatin (Pravachol) 40 mg tablet Take 1 tablet (40 mg) by mouth once daily. 04/20/23 HistoricalProviderMD LABS AND IMAGING: Last Labs: CBC - 08/16/2022: 8:47 AM 10.1 14.1 340 43.4 CMP - 04/07/2023: 10:27 AM 9.5 7.4 22 --- 0.4 _ 4.0 20 84 PTT - No results in last year. 2.40 24.9 _ BNP Date/Time Value Ref Range Status 04/07/2023 10:27 AM 41 0 - 99 pg/mL Final 07/01/2019 06:08 AM 129 (H) 0 - 99 pg/mL Final Comment: . <100 pg/mL - Heart failure unlikely 100-299 pg/mL - Intermediate probability of acute heart . failure exacerbation. Correlate with clinical . context and patient history. >=300 pg/mL - Heart Failure likely. Correlate with clinical . context and patient history. BNP testing is performed using different testing methodology at [facility] than at other [facility] hospitals. Direct result comparisons should only be made within the same method. 06/30/2019 09:40 AM 217 (H) 0 - 99 pg/mL Final Comment: . <100 pg/mL - Heart failure unlikely 100-299 pg/mL - Intermediate probability of acute heart . failure exacerbation. Correlate with clinical . context and patient history. >=300 pg/mL - Heart Failure likely. Correlate with clinical . context and patient history. BNP testing is performed using different testing methodology at [facility] than at other [facility] hospitals. Direct result comparisons should only be made within the same method. Hemoglobin A1C Date/Time Value Ref Range Status 02/10/2023 08:50 AM 6.5 (H) see below % Final 11/01/2022 09:59 AM 6.3 (A) % Final Comment: Diagnosis of Diabetes-Adults Non-Diabetic: < or = 5.6% Increased risk for developing diabetes: 5.7-6.4% Diagnostic of diabetes: > or = 6.5% . Monitoring of Diabetes Age (y) Therapeutic Goal (%) Adults: >18 <7.0 Pediatrics: 13-18 <7.5 7-12 <8.0 0- 6 7.5-8.5 [place] [employer]. Diabetes Care 33(S1), May 2009. 08/16/2022 08:47 AM 6.5 (A) % Final Comment: Diagnosis of Diabetes-Adults Non-Diabetic: < or = 5.6% Increased risk for developing diabetes: 5.7-6.4% Diagnostic of diabetes: > or = 6.5% . Monitoring of Diabetes Age (y) Therapeutic Goal (%) Adults: >18 <7.0 Pediatrics: 13-18 <7.5 7-12 <8.0 0- 6 7.5-8.5 [place] [employer]. Diabetes Care 33(S1), May 2009. VLDL Date/Time Value Ref Range Status 08/16/2022 08:47 AM 39 0 - 40 mg/dL Final 09/16/2021 08:14 AM 44 (H) 0 - 40 mg/dL Final 04/13/2020 05:00 PM 41 (H) 0 - 40 mg/dL Final [facility] Work Phone: [phone] 367-814412-18-2023 History and physical note* Kira Olvera MD - 04/24/2023 4:31 AM EST Images from the original note were not included. Medical Group History and Physical ASSESSMENT: Left hip pain: Patient with severe left hip pain, difficulty ambulating. X-rays do not show any evidence of fracture. She has degenerative joint disease at baseline. Her goal is to have pain under control and be able to walk and go back home. Persistent A-fib: Rate controlled, status post PPM Type 2 diabetes mellitus, not on insulin Essential hypertension History of coronary artery disease: No complaints of chest pain at this time. PLAN Pain control. Started on Robaxin, Dilaudid as needed PT/OT Continue other home medication VTE Prophylaxis: on coumadin HISTORY OF PRESENT ILLNESS: Chief Complaint: Left hip pain History Of Present Illness: Pau Muñoz is a 72 y.o. female with a significant past medical history of type 2 diabetes mellitus, chronic A-fib, PPM, degenerative joint disease, hypertension presenting to the ED with complaints of left hip pain. Patient states symptoms started yesterday morning, pain has been gripping. She lives alone, has not been able to carry out her daily activities due to limitations from the pain and not being able to walk around without assistance. She takes Ultram at bedtime, has not helped with pain control. Review of systems: 10 point review of systems is otherwise negative except as mentioned above. PAST HISTORIES: Past Medical History: She has a past medical history of Body mass index (BMI) 33.0-33.9, adult (04/16/2019), Body mass index (BMI) 34.0-34.9, adult (04/06/2020), Body mass index (BMI)30.0-30.9, adult (07/16/2019), COVID-19 (08/12/2022), Ganglion, left wrist (10/29/2019), Irritable bowel syndrome with diarrhea (04/28/2016), Pain in right knee (12/26/2018), Personal history of diseases of the skin and subcutaneous tissue (04/16/2019), Personal history of other (healed) physical injury and trauma (11/27/2018), Personalhistory of other diseases of the circulatory system, Personal history of other diseases of the circulatory system, Personal history of other diseases of the musculoskeletal system and connective tissue (05/04/2019), Personal history of other endocrine, nutritional and metabolic disease (10/16/2018), Personal history of other infectious and parasitic diseases (09/16/2016), Personal history of other medical treatment (07/16/2019), Personal history of other specified conditions (03/06/2020), Personal history of pneumonia (recurrent) (08/13/2019), Unspecified asthma with (acute) exacerbation (06/28/2019), and Unspecified fall, initial encounter (11/06/2018). Past Surgical History: She has a past surgical history that includes Cardiac pacemaker placement (01/31/2018); Other surgical history (01/31/2018); Other surgical history (09/17/2021); Other surgical history (09/21/2021); Other surgical history (03/18/2022); Other surgical history (03/18/2022); Other surgical history (); Other surgical history (11/17/2020); Other surgical history (11/17/2020); Other surgical history (10/16/2018); Other surgical history (10/16/2018); CT angio neck (07/22/2021); and CT angio head w and wo IV contrast (07/22/2021). Social History: She reports that she has never smoked. She has never been exposed to tobacco smoke. She has never used smokeless tobacco. She reports that she does not currently use alcohol. She reports that she does not use drugs. Family History: Family History Problem Relation Name Age of Onset Breast cancer Mother Heart attack Mother Coronary artery disease Father Lung cancer Father Breast cancer Sister Allergies: Cephalexin, Iodinated contrast media, Levofloxacin, Sulfa (sulfonamide antibiotics), and Sulfamethoxazole-trimethoprim PHYSICAL EXAMS: Physical Exam Constitutional: Appearance: She is not ill-appearing or diaphoretic. HENT: Right Ear: External ear normal. Left Ear: External ear normal. Eyes: Pupils: Pupils are equal, round, and reactive to light. Cardiovascular: Pulses: Normal pulses. Pulmonary: Effort: Pulmonary effort is normal. No respiratory distress. Breath sounds: Normal breath sounds. Abdominal: General: Abdomen is flat. Bowel sounds are normal. There is no distension. Palpations: Abdomen is soft. Tenderness: There is no abdominal tenderness. Musculoskeletal: General: Tenderness present. Skin: General: Skin is warm and dry. Capillary Refill: Capillary refill takes less than 2 seconds. Neurological: General: No focal deficit present. Mental Status: She is alert and oriented to person, place, and time. Mental status is at baseline. Psychiatric: Mood and Affect: Mood normal. OBJECTIVE: Last Recorded Vitals: Vitals: 04/24/23 0353 BP: 131/74 BP Location: Right arm Patient Position: Lying Pulse: 61 Resp: 20 Temp: 36.6 C (97.8 F) TempSrc: Tympanic SpO2: 95% Weight: 84 kg (185 lb 3 oz) Height: 1.524 m (5') Last I/O: No intake/output data recorded. Inpatient Medications: PRN medications: acetaminophen OR acetaminophen OR acetaminophen, polyethylene glycol Outpatient Medications: Prior to Admission medications Medication Sig Start Date End Date Taking? Authorizing Provider Bacillus coagulans 10 billion cell capsule,delayed release(DR/EC) Take by mouth. Historical Provider, cetirizine (ZyrTEC) 10 mg capsule Take 1 capsule (10 mg) by mouth once daily. 08/01/18 Historical Provider, dapagliflozin propanediol (Farxiga) 10 mg Take 1 tablet (10 mg) by mouth once daily. 04/19/23 04/18/24 Timothy Palacio, DO dilTIAZem CD (Cardizem CD) 240 mg 24 hr capsule Take 1 capsule (240 mg) by mouth every 12 hours for14 days. 02/16/23 03/02/23 Timothy Palacio DO esomeprazole (NexIUM) [address] capsule Take 1 capsule (20 mg) by mouth once daily in the morning. Take before meals. Do not open capsule. Pt gets otc Historical Provider, xbiaohmmsup-kvjmunmos-jzmuaqkw (Trelegy Ellipta) 200-62.5-25 mcg blister with device Inhale 1 puff once daily. Historical Provider, furosemide (Lasix) 20 mg tablet Take by mouth. Historical Provider, furosemide (Lasix) 40 mg tablet Take 1 tablet (40 mg) by mouth once daily. 04/04/23 04/03/24 Gosia Hagen, DO ipratropium-albuteroL (Duo-Neb) 0.5-2.5 mg/3 mL nebulizer solution Take 3 mL by nebulization every 6 hours. 02/23/23 Ronit Doan, DO levalbuterol (Xopenex) 45 mcg/actuation inhaler Inhale 2 puffs every 4 hours if needed for wheezing. 2/10/23 Historical Provider, lisinopril 10 mg tablet Take 1 tablet (10 mg) by mouth once daily. 03/01/23 Timothy Palacio, DO magnesium oxide 500 mg capsule Take 1 capsule (500 mg) by mouth once daily. 08/01/18 Historical Provider, nitroglycerin (Nitrostat) 0.[address] under the tongue. 03/24/21 Historical Provider, pravastatin (Pravachol) 40 mg tablet Take 1 tablet (40 mg) by mouth once daily. 04/20/23 04/19/24 Charline Hagen, DO traMADol (Ultram) 50 mg tablet Take 1 tablet (50 mg) by mouth every 8 hours if needed for severe pain (7 - 10). 02/17/23 Ronit Doan, DO warfarin (Coumadin) 2.5 mg tablet Take once daily . Patient taking differently: Take once daily . Varies 09/09/22 Ronit Doan, DO warfarin sodium (COUMADIN ORAL) Take 1.25 mg by mouth once daily. Takes Monday//monday Historical Provider, doxycycline (Vibramycin) 100 mg capsule Take 1 capsule (100 mg) by mouth every 12 hours. 06/29/22 04/24/23 Historical Provider, MAGNESIUM ORAL Take 800 mg by mouth once daily. 04/24/23 Historical Provider, pravastatin (Pravachol) 40 mg tablet Take 1 tablet (40 mg) by mouth once daily. 04/20/23 HistoricalProMD [facility] LABS AND IMAGING: Last Labs: CBC - 08/16/2022: 8:47 AM 10.1 14.1 340 43.4 CMP - 04/07/2023: 10:27 AM 9.5 7.4 22 --- 0.4 _ 4.0 20 84 PTT - No results in last year. 2.40 24.9 _ BNP Date/Time Value Ref Range Status 04/07/2023 10:27 AM 41 0 - 99 pg/mL Final 07/01/2019 06:08 AM 129 (H) 0 - 99 pg/mL Final Comment: . <100 pg/mL - Heart failure unlikely 100-299 pg/mL - Intermediate probability of acute heart . failure exacerbation. Correlate with clinical . context and patient history. >=300 pg/mL - Heart Failure likely. Correlate with clinical . context and patient history. BNP testing is performed using different testing methodology at [facility] than at other system hospitals. Direct result comparisons should only be made within the same method. 06/30/2019 09:40 AM 217 (H) 0 - 99 pg/mL Final Comment: . <100 pg/mL - Heart failure unlikely 100-299 pg/mL - Intermediate probability of acute heart . failure exacerbation. Correlate with clinical . context and patient history. >=300 pg/mL - Heart Failure likely. Correlate with clinical . context and patient history. BNP testing is performed using different testing methodology at [facility] than at other system hospitals. Direct result comparisons should only be made within the same method. Hemoglobin A1C Date/Time Value Ref Range Status 02/10/2023 08:50 AM 6.5 (H) see below % Final 11/01/2022 09:59 AM 6.3 (A) % Final Comment: Diagnosis of Diabetes-Adults Non-Diabetic: < or = 5.6% Increased risk for developing diabetes: 5.7-6.4% Diagnostic of diabetes: > or = 6.5% . Monitoring of Diabetes Age (y) Therapeutic Goal (%) Adults: >18 <7.0 Pediatrics: 13-18 <7.5 7-12 <8.0 0- 6 7.5-8.5 [place] [employer]. Diabetes Care 33(S1), May 2009. 08/16/2022 08:47 AM 6.5 (A) % Final Comment: Diagnosis of Diabetes-Adults Non-Diabetic: < or = 5.6% Increased risk for developing diabetes: 5.7-6.4% Diagnostic of diabetes: > or = 6.5% . Monitoring of Diabetes Age (y) Therapeutic Goal (%) Adults: >18 <7.0 Pediatrics: 13-18 <7.5 7-12 <8.0 0- 6 7.5-8.5 [employer]. Diabetes Care 33(S1), May 2009. VLDL Date/Time Value Ref Range Status 08/16/2022 08:47 AM 39 0 - 40 mg/dL Final 09/16/2021 08:14 AM 44 (H) 0 - 40 mg/dL Final 04/13/2020 05:00 PM 41 (H) 0 - 40 mg/dL Final documented in this encounterUnHol[facility] Work Phone: 1([phone]) 254-941412-18-2023 Plan of care note* Care Plan - Juan Barboza RN - 04/24/2023 4:19 AM EST Problem: Psychosocial Needs Goal: Collaborate with me, my family, and caregiver to identify my specific goals Recent Flowsheet Documentation Taken 04/24/2023412 by Juan Barboza RN Cultural Requests During Hospitalization: none Spiritual Requests During Hospitalization: none The patient's goals for the shift include pain control The clinical goals for the shift include no falls [facility] Work Phone: [phone] 108-652012-18-2023 Miscellaneous Notes* Care Plan - Juan Barboza RN - 04/24/2023 4:19 AM EST Problem: Psychosocial Needs Goal: Collaborate with me, my family, and caregiver to identify my specific goals Recent Flowsheet Documentation Taken 04/24/2023412 by Juan Barboza RN Cultural Requests During Hospitalization: none Spiritual Requests During Hospitalization: none The patient's goals for the shift include pain control The clinical goals for the shift include no falls * Care Plan - Juan Barboza RN - 04/24/2023 4:18 AM EST The patient's goals for the shift include pain control The clinical goals for the shift include no falls documented [facility]Children[facility] Work Phone: [phone] Plan of care note* Care Plan - Juan Barboza RN - 04/24/2023 4:18 AM EST The patient's goals for the shift include pain control The clinical goals for the shift include no falls [facility] Work Phone: [phone] History of Present illness Narrative* Faiza Marie RT(R) - 04/23/2023 9:10 PM EST Radiology Service Progress Note PATIENT NAME: Pau Muñoz DATE OF SERVICE: April 23, 2023 TIME: 9:10 PM PATIENT IDENTITY VERIFICATION COMPLETED USING TWO (2) IDENTIFIERS: Name and Date of confirmedby patient verbally. FALL SCREENING: Has the patient had 2 falls in the last year or 1 fall with injury or currently using an Ambulatory Assistive Device (Walker, Cane, Wheelchair, Crutches, etc.)? Emergency Room Patient: Screened in ED PATIENT GENDER DATA: Female. status: : No status: NO. PATIENT RELEVANT IMPLANT DATA REVIEWED: Not Applicable RADIOLOGY DEPARTMENT: General X-ray: Exam(s) Completed: Spine X-Ray(s): Lumbar AP / LAT / L5-S1 Pelvis X-Ray: Pelvis with Hip Left PERIPHERAL IV DATA: Not applicable SIGNED BY: RT Shelby(R) April 23, 2023 9:10 PM documented [facility] History of Present illness Narrative* Ronit Doan, - 02/17/2023 1:30 PM EDT Subjective Pau Muñoz is a 72 y.o. female who presents for Follow-up. She is doing INR once a month at the coumadin clinic Her aic was 6.5 Has been 6 to 6.5 historically Is not on any medication Only checks her sugars if she gets a bad headache: will have a high sugar She says her asthma is "staus quo" uses Trelegy once daily and has xoponex once a day and prn if needed She has an inhaler with her at all times She has been taking one tramadol every evening OARRS: Ronit Doan, on 02/17/2023 1:42 PM I have personally reviewed the OARRS report for Pau Muñoz. I have considered the risks of abuse, dependence, addiction and diversion and I believe that it is clinically appropriate for Elma to be prescribed this medication Is the patient prescribed a combination of a benzodiazepine and opioid? No Last Urine Drug Screen / ordered today: Yes Recent Results (from the past 8760 hour(s)) OPIATE/OPIOID/BENZO PRESCRIPTION COMPLIANCE Collection Time: 08/11/22 10:13 AM Result Value Ref Range DRUG SCREEN COMMENT URINE SEE BELOW Creatine, Urine 56.5 mg/dL Amphetamine Screen, Urine PRESUMPTIVE NEGATIVE NEGATIVE Barbiturate Screen, Urine PRESUMPTIVE NEGATIVE NEGATIVE Cannabinoid Screen, Urine PRESUMPTIVE NEGATIVE NEGATIVE Cocaine Screen, Urine PRESUMPTIVE NEGATIVE NEGATIVE PCP Screen, Urine PRESUMPTIVE NEGATIVE NEGATIVE 7-Aminoclonazepam <25 Cutoff <25 ng/mL Alpha-Hydroxyalprazolam <25 Cutoff <25 ng/mL Alpha-Hydroxymidazolam <25 Cutoff <25 ng/mL Alprazolam <25 Cutoff <25 ng/mL Chlordiazepoxide <25 Cutoff <25 ng/mL Clonazepam <25 Cutoff <25 ng/mL Diazepam <25 Cutoff <25 ng/mL Lorazepam <25 Cutoff <25 ng/mL Midazolam <25 Cutoff <25 ng/mL Nordiazepam <25 Cutoff <25 ng/mL Oxazepam <25 Cutoff <25 ng/mL Temazepam <25 Cutoff <25 ng/mL Zolpidem <25 Cutoff <25 ng/mL Zolpidem Metabolite (ZCA) <25 Cutoff <25 ng/mL 6-Acetylmorphine <25 Cutoff <25 ng/mL Codeine <50 Cutoff <50 ng/mL Hydrocodone <25 Cutoff <25 ng/mL Hydromorphone <25 Cutoff <25 ng/mL Morphine Urine <50 Cutoff <50 ng/mL Norhydrocodone <25 Cutoff <25 ng/mL Noroxycodone <25 Cutoff <25 ng/mL Oxycodone <25 Cutoff <25 ng/mL Oxymorphone <25 Cutoff <25 ng/mL Tramadol >1000 (A) Cutoff <50 ng/mL O-Desmethyltramadol >1000 (A) Cutoff <50 ng/mL Fentanyl <2.5 Cutoff<2.5 ng/mL Norfentanyl <2.5 Cutoff<2.5 ng/mL METHADONE CONFIRMATION,URINE <25 Cutoff <25 ng/mL EDDP <25 Cutoff <25 ng/mL Results are as expected. Controlled Substance Agreement: yes Date of the Last Agreement: 08/11/22 Reviewed Controlled Substance Agreement including but not limited to the benefits, risks, and alternatives to treatment with a Controlled Substance medication(s). Opioids: What is the patient's goal of therapy? Treatment of OA mult sites Is this being achieved with current treatment? yes I have calculated the patient's Morphine Dose Equivalent (MED): I have considered referral to Pain Management and/or a specialist, and do not feel it is necessary at this time. I feel that it is clinically indicated to continue this current medication regimen after consideration of alternative therapies, and other non-opioid treatment. Opioid Risk Screening: No data recorded Pain Assessment: No data recorded She had a mole removed from her shoulder She's going to wear compression hose in the winter A year ago her sister was found to have MGUS and also two breast biopsies Review of Systems Objective BP 128/59 (BP Location: Left arm, Patient Position: Sitting, BP Cuff Size: Adult) Pulse 75 Resp16 Ht 1.524 m (5') Wt 85.1 kg (187 lb 9.6 oz) BMI 36.64 kg/m Physical Exam Visit Vitals BP 128/59 (BP Location: Left arm, Patient Position: Sitting, BP Cuff Size: Adult) Pulse 75 Resp 16 Ht 1.524 m (5') Wt 85.1 kg (187 lb 9.6 oz) BMI 36.64 kg/m Smoking Status Never BSA 1.9 m GEN: NAD HEENT: normal NECK: no adenopathy, no thyroid enlargment LUNGS: CTAB CV: reg S1/S2 no murmurs EXT: no leg edema Assessment/Plan Problem List Items Addressed This Visit Longstanding persistent atrial fibrillation (CMS/HCC) Moderate persistent asthma without complication Type 2 diabetes mellitus with hyperglycemia, without long-term current use of insulin (CMS/HCC) - Primary Primary osteoarthritis involving multiple joints: Other Visit Diagnoses Generalized arthritis RX refilled for #90 tabs tramadol. She uses only as needed, usually is once at night. She continues to have relief when taking tramadol Relevant Medications traMADol (Ultram) 50 mg tablet documented [facility] Work Phone: [phone] Instructions* Patient Instructions* Ronit Doan DO - 02/17/2023 1:30 PM EDT You are doing well. See me in May for Medicare Wellness visit. documented in this encounterChildren[facility] Work Phone: [phone] History of Present illness Narrative* Patient identification verified with 2 patient identifiers. * Anticoagulation Monitoring Service: [facility]. * August 10, 2023. * The patient is being seen as a follow-up for anticoagulation monitoring. * Target INR 2-3. Monitoring practitioner Ronit Doan DO. * Date Warfarin Begun: August 01, 2022. * INR monitoring is per [facility] protocol. * The patient is on anticoagulation due to atrial fibrillation/flutter. * The patient is currently taking warfarin Tablet strength and color: 2.5 mg (Green) * Interval History: * Patient was last seen: January 04, 2023. * Previous INR was 2.6. * Incoming total weekly dose 13.75 mg. * Today's Clinic INR: [facility] INR 2.2. * Since last visit, the patient reports no bleeding. * The patient did not experience clinically relevant bleeding. * The patient did not experience other minor bleeding. * Since last visit, the patient has not experienced a thrombotic event. * The patient reports no change in medication. * She reports no change in alcohol consumption. * She reports no change in Vitamin K consumption. * The patient has taken Warfarin as directed. * Management: The patient's INR is within target range. Will maintain dose. * Next follow up appointment in 2 week(s). * Outgoing total weekly dose 13.75 mg. * Patient instructed to call in interim with questions, concerns and changes. Antico[facility] Monitoring [facility] Work Phone: [phone] History of Present illness Narrative* Patient identification verified with 2 patient identifiers. * Anticoagulation Monitoring Service: [facility]. * August 10, 2023. * The patient is being seen as a follow-up for anticoagulation monitoring. * Target INR 2-3. Monitoring practitioner Ronit Doan DO. * Date Warfarin Begun: August 01, 2022. * INR monitoring is per [facility] protocol. * The patient is on anticoagulation due to atrial fibrillation/flutter. * The patient is currently taking warfarin Tablet strength and color: 2.5 mg (Green) 5 mg([place]). * Interval History: * Patient was last seen: December 28, 2022. * Previous INR was 2.3. * Incoming total weekly dose 13.75 mg. * Today's Clinic INR: [facility] INR 2.6. * Since last visit, the patient reports no bleeding. * The patient did not experience clinically relevant bleeding. * The patient did not experience other minor bleeding. * Since last visit, the patient has not experienced a thrombotic event. * The patient reports no change in medication. * She reports no change in alcohol consumption. * She reports no change in Vitamin K consumption. * The patient has taken Warfarin as directed. * Management: The patient's INR is within target range. Will maintain dose. * Next follow up appointment in 2 week(s). * Outgoing total weekly dose 13.75 mg. * Patient instructed to call in interim with questions, concerns and changes. [facility]tico[facility] Work Phone: [phone] History of Present illness Narrative* Patient identification verified with 2 patient identifiers. * Anticoagulation Monitoring Service: [facility]. * August 10, 2023. * The patient is being seen as a follow-up for anticoagulation monitoring. * Target INR 2-3. Monitoring practitioner Ronit Doan DO. * Date Warfarin Begun: August 01, 2022. * INR monitoring is per [facility] protocol. * The patient is on anticoagulation due to atrial fibrillation/flutter. * The patient is currently taking warfarin Tablet strength and color: 2.5 mg (Green) 5 mg([place]). * Interval History: * Patient was last seen: December 13, 2022. * Previous INR was 3. * Incoming total weekly dose 15 mg. * Today's Clinic INR: [facility] IN[facility] 3.3. * Since last visit, the patient reports no bleeding. * The patient did not experience clinically relevant bleeding. * The patient did not experience other minor bleeding. * Since last visit, the patient has not experienced a thrombotic event. * The patient reports a change in medication. * The patient stopped or started antibiotics. Patient reports that she had been taking doxycycline for one week; however, infection was not clearing so antibiotic was changed to clindamycin last , December 15, 2022. Patient reports that she was prescribed a 10 day course of antibiotic therapy. * She reports no change in alcohol consumption. * She reports no change in Vitamin K consumption. * The patient has taken Warfarin as directed. * Management: The patient's INR is supratherapeutic. Will decrease dose per protocol by approximately5%. * Next follow up appointment in 1 week(s). Patient previously had a POCT appointment scheduled for next Monday, December 28, 2022, and prefers to RTC this date. Appointment scheduled per patient's request. * Outgoing total weekly dose 13.75 mg. * Patient instructed to call in interim with questions, concerns and changes. Patient educated on interactions between medications and warfarin. Patient educated on signs of bleeding/clotting. Anticoagulation Monitoring [facility] Phone: [phone] History of Present illness Narrative* Ronit Doan, - 12/15/2022 11:30 AM EDT Subjective Pau Muñoz is a 72 y.o. female who presents for evaluation after having had developed a cellulitis On her right calf. She states that she noticed redness in her calf and some discomfort. She went to the ER and was prescribed doxycycline She is on day 6 of doxycycline She is worried about this, was wondering if she needed iv antibiotics She has not had any fevers or chills Review of Systems Objective BP 154/88 (BP Location: Right arm, Patient Position: Sitting, BP Cuff Size: Adult) Pulse 72 Resp 16 Ht 1.524 m (5') Wt 85.3 kg (188 lb) BMI 36.72 kg/m Physical Exam Visit Vitals BP 154/88 (BP Location: Right arm, Patient Position: Sitting, BP Cuff Size: Adult) Pulse 72 Resp 16 Ht 1.524 m (5') Wt 85.3 kg (188 lb) BMI 36.72 kg/m Smoking Status Never BSA 1.9 m GEN: NAD HEENT: normal NECK: no adenopathy, no thyroid enlargment LUNGS: CTAB CV: irreg S1/S2 no murmurs EXT: right leg has an area of cellulitis on the lateral portion with some satellite area of redness. She has no streaking. Assessment/Plan Problem List Items Addressed This Visit None Cellulitis on right calf: she should complete her doxycycline, but begin clindamycin 300 mg three times a day for 10 days. Also RX for mupiroicin. Warm compresses for comfort. Advised that this may be community acquired MRSa. I think it may less likely be a bite. She should keep her next appt. documented in [facility] encounterChildren[facility] Work Phone: [phone] Instructions* Patient Instructions* Ronit Doan DO - 12/15/2022 11:30 AM EDT Use warm,moist compress twice a day for comfort and will help come to a head. If you have drainage, just keep it covered until it dries up. Use topical mupiroicin ointment at least twice daily, and massage it into the area. Deficiently use it if you have drainage. Clindamycin 300 one three times a day for 10 days. OK to overlap with remaining doxycycline. documented in this encounterChildren[facility] Work Phone: [phone] History of Present illness Narrative* Patient identification verified with 2 patient identifiers. * Anticoagulation Monitoring Service: [facility]. * August 10, 2023. * The patient is being seen as a follow-up for anticoagulation monitoring. * Target INR 2-3. Monitoring practitioner Ronit Doan DO. * Date Warfarin Begun: August 01, 2022. * INR monitoring is per [facility] protocol. * The patient is on anticoagulation due to atrial fibrillation/flutter. * The patient is currently taking warfarin Tablet strength and color: 2.5 mg (Green) 5 mg([place]). * Interval History: * Patient was last seen: November 29, 2022. * Previous INR was 2.4. * Incoming total weekly dose 15 mg. * [facility] INR: [facility] 3. * Since last visit, the patient reports no bleeding. * The patient did not experience clinically relevant bleeding. * The patient did not experience other minor bleeding. * Since last visit, the patient has not experienced a thrombotic event. * The patient reports a change in medication. * The patient stopped or started antibiotics. Pt started taking doxycycline 100 mg BID for ten days three days ago. * She reports no change in alcohol consumption. * She reports no change in Vitamin K consumption. pt is going to increase dietary vitramin K to threemore servings the next five days. * The patient has taken Warfarin as directed. * Management: The patient's INR is within target range. Will maintain dose. * The patient is not currently being bridged. * Next follow up appointment in 1 week(s). * Outgoing total weekly dose 15 mg. * Patient instructed to call in interim with questions, concerns and changes. Antico[facility] Monitoring [facility] Phone: [phone] History of Present illness Narrative* Ronit Doan, DO - 11/11/2022 1:30 PM EDT Subjective Pau Muñoz is a 72 y.o. female who presents for Follow-up (3 month follow up visit). She has a cough that is intermittent. Saw her welt wheeler October 10 and he did not make any changes OA in feet at times that huts her a bit more lately She is using tramadol for her back pain She says that it still helps and is grateful to have it This heps her to be able to go to sleep more gradually She does not need a refill today She got new hearing aides and they made a big difference She is going every 2 weeks , will have one more check and then can go monthly Is going to the warfarin clinic 1.25 Tue and Fri and 2.5 all other days : is on a lower dosage She is aware of dietary restricitons Her last Aic was 6.3, improved from 6.5 She is not taking any meds for this right now Does not test sugars at this time Review of Systems Objective BP 117/52 (BP Location: Left arm, Patient Position: Sitting, BP Cuff Size: Adult) Pulse 61 Wt 84.8 kg (187 lb) BMI 36.52 kg/m Physical Exam Visit Vitals BP 117/52 (BP Location: Left arm, Patient Position: Sitting, BP Cuff Size: Adult) Pulse 61 Wt 84.8 kg (187 lb) BMI 36.52 kg/m Smoking Status Never BSA 1.89 m GEN: NAD HEENT: normal NECK: no adenopathy, no thyroid enlargment LUNGS: CTAB CV: reg S1/S2 no murmurs EXT: no leg edema Assessment/Plan Problem List Items Addressed This Visit Essential hypertension remain on diltiazem and lisinopril Longstanding persistent atrial fibrillation (CMS/HCC) Relevant Medications dilTIAZem CD (Cardizem CD) 240 mg 24 hr capsule Remains on warfarin Moderate persistent asthma without complication cont with duoneb and trelegy. And prn xoponex She follows with pulm. Prediabetes mointor Aic. Consider home monitoring sugars periodically if Aic still over 6 at next vsiti. Choice for med would be glipizide 2.5 if needeed. Relevant Orders Hemoglobin A1c HF with preserved EF: follows with cardio, remain on furosemide and lisinopril. She is stable. documented in [facility] encounterChildren[facility] Work Phone: [phone] Instructions* Patient Instructions* Ronit Doan DO - 11/11/2022 1:30 PM EDT See me again in 3 months. Get A1c test close to next visit. documented in this encounterUnHolmes [facility] Work Phone: [phone] History of Present illness Narrative* Ronit Doan DO - 10/04/2022 3:45 PM EDT Subjective Pau Muñoz is a 72 y.o. female who presents for follow up from ER She had been feeling more short of breath; was hesitant to seek care due to concern over warfarin and antibiotics. Got IV solumedrol and 5 days of prednisone at 40 mg per day Her breathing has improved. Xoponex once daily, twice daily duoneb and then trelegy She did mention she got a new hearing test, showed her hearing was much worse, so she bought new hearing aids that will be available in two weeks. Review of Systems Objective BP (!) 136/48 Pulse 63 Ht 1.524 m (5') Wt 85.3 kg (188 lb) BMI 36.72 kg/m Physical Exam Visit Vitals BP (!) 136/48 Pulse 63 Ht 1.524 m (5') Wt 85.3 kg (188 lb) BMI 36.72 kg/m Smoking Status Never BSA 1.9 m GEN: NAD HEENT: normal NECK: no adenopathy, no thyroid enlargment LUNGS: CTAB CV: reg S1/S2 no murmurs EXT: no leg edema Assessment/Plan Problem List Items Addressed This Visit Longstanding persistent atrial fibrillation (CMS/HCC) Moderate persistent asthma without complication Other Visit Diagnoses Prediabetes - Primary Relevant Orders Hemoglobin A1C TSH with reflex to Free T4 if abnormal [facility] Work Phone: 1([phone]) 911-860605-30-2023 Instructions* Patient Instructions* Ronit Doan DO - 10/04/2022 3:45 PM EDT Keep next appt with me in November. I entered blood test orders. documented in this [facility]Children[facility] Work Phone: [phone]) 730-391705-05-2023 History of Present illness Narrative* Patient identification verified with 2 patient identifiers. * Anticoagulation Monitoring Service: [facility]. * August 10, 2023. * The patient is being seen as a follow-up for anticoagulation monitoring. * Target INR 2-3. Monitoring practitioner Ronit Doan DO. * Date Warfarin Begun: August 01, 2022. * INR monitoring is per [facility] protocol. * The patient is on anticoagulation due to atrial fibrillation/flutter. * The patient is currently taking warfarin Tablet strength and color: 5 mg([place]) * Interval History: * Patient was last seen: September 06, 2022. * Previous INR was 4.3. * Two doses were held and TWD was reduced at time of last appointment. * Incoming total weekly dose 17.5 mg. * Today's Clinic INR: AMS INR 1.9. * Since last visit, the patient reports no bleeding. * The patient did not experience clinically relevant bleeding. * The patient did not experience other minor bleeding. * Since last visit, the patient has not experienced a thrombotic event. * The patient reports no change in medication. * She reports no change in alcohol consumption. * She reports no change in Vitamin K consumption. * The patient has taken Warfarin as directed. * Management: The patient's INR is subtherapeutic. Will maintain dose. * Next follow up appointment in 3-5 day(s). * Outgoing total weekly dose 17.5 mg. * Patient instructed to call in interim with questions, concerns and changes. Patient educated on signs of bleeding/clotting. [facility] Work Phone: [phone]) [phone] History of Present illness Narrative* Patient identification verified with 2 patient identifiers. * Anticoagulation Monitoring Service: [facility]. * August 10, 2023. * The patient is being seen as a follow-up for anticoagulation monitoring. * Target INR 2-3. Monitoring practitioner Ronit Doan DO. * Date Warfarin Begun: August 01, 2022. * INR monitoring is per [facility] protocol. * The patient is on anticoagulation due to atrial fibrillation/flutter. * The patient is currently taking warfarin Tablet strength and color: 5 mg([place]) * Interval History: * Patient was last seen: August 24, 2022. * Previous INR was 4.9. two doses of warfarin was held and TWD was reduced at time of last appointment. * Incoming total weekly dose 22.5 mg. * Today's Clinic INR: AMS INR 3.6. * Since last visit, the patient reports no bleeding. * The patient did not experience clinically relevant bleeding. * The patient did not experience other minor bleeding. * Since last visit, the patient has not experienced a thrombotic event. * The patient reports no change in medication. * She reports no change in alcohol consumption. * She reports no change in Vitamin K consumption. * The patient has taken Warfarin as directed. * There is no identifiable cause for out of range INR. * Management: The patient's INR is supratherapeutic. Hold 1 dose. Will decrease dose per protocol by approximately 10%. * Outgoing total weekly dose 20 mg. * Patient instructed to call in interim with questions, concerns and changes. Patient educated on signs of bleeding/clotting. [facility] Work Phone: [phone]) 295-724104-19-2023 History of Present illness Narrative* Patient identification verified with 2 patient identifiers. * Anticoagulation Monitoring Service: [facility]. * August 10, 2023. * The patient is being seen as a follow-up for anticoagulation monitoring. * Target INR 2-3. Monitoring practitioner Ronit Doan DO. * Date Warfarin Begun: August 01, 2022. * INR monitoring is per [facility] protocol. * The patient is on anticoagulation due to atrial fibrillation/flutter. * The patient is currently taking warfarin Tablet strength and color: 5 mg([place]) * Interval History: * Patient was last seen: August 19, 2022. * Previous INR was 3.9. One dose of warfarin was held and TWD was reduced at time of last appointment. * Incoming total weekly dose 27.5 mg. * Today's Clinic INR: [facility] INR 4.9. * Since last visit, the patient reports no bleeding. * The patient did not experience clinically relevant bleeding. * The patient did not experience other minor bleeding. * Since last visit, the patient has not experienced a thrombotic event. * The patient reports no change in medication. * She reports no change in alcohol consumption. * She reports no change in Vitamin K consumption. * The patient has taken Warfarin as directed. * There is no identifiable cause for out of range INR. * Management: The patient's INR is supratherapeutic. Hold 2 doses. Will decrease dose per protocol byapproximately 15%. * Next follow up appointment in 5-7 day(s). * Outgoing total weekly dose 22.5 mg. * Patient instructed to call in interim with questions, concerns and changes. Patient educated on signs of bleeding/clotting. [facility]tico[facility] Phone: [phone]) [phone] History of Present illness Narrative* Ronit Doan DO - 08/11/2022 9:30 AM EDT Subjective Pau Muñoz is a 72 y.o. female who presents for [place] started her on trelegy which completely stopped her cough Trelegy is $800 She is trying to go through the company to get it. She was dropped by [employer] for her part D plan because she was late on one payment She is going to start at the coumadin clinic on 08/16/22 She denies any bleeding symptoms. She does not need a refill of tramadol yet. She had 06/26/22 # 90 Controlled substance agreement done today She takes one nightly for pain in her back. Review of Systems Objective BP (!) 140/48 Pulse 75 Ht 1.524 m (5') Wt 86.2 kg (190 lb) BMI 37.11 kg/m Physical Exam Eyes: Conjunctiva/sclera: Conjunctivae normal. Pupils: Pupils are equal, round, and reactive to light. Cardiovascular: Rate and Rhythm: Normal rate and regular rhythm. Heart sounds: Normal heart sounds. Pulmonary: Effort: Pulmonary effort is normal. Breath sounds: Normal breath sounds. Neurological: General: No focal deficit present. Assessment/Plan Problem List Items Addressed This Visit None Visit Diagnoses Hyperglycemia - Primary check AIC Relevant Orders Hemoglobin A1c Medication monitoring encounter Relevant Orders Opiate/Opioid/Benzo Extended Prescription Compliance completed today She dd not need a refill of tramadol Chronic atrial fibrillation (CMS/HCC) remain on 5 mg warfarin. Has coumadin clininc 08/16/22 Prediabetes she will get Aic done . Chronic low back pain, unspecified back pain laterality, unspecified whether sciatica present See med monitoroing documented in this [facility]Children[facility] Work Phone: [phone]) [phone] Instructions* Patient Instructions* Ronit Doan DO - 08/11/2022 9:30 AM EDT See me in 3 months. documented in this [facility] Work Phone: [phone]) 228-148003-01-2023 History of Present illness NarrativeThis patient presents today for evaluation of bilateral lower extremity discoloration in legs and feet. She denies any pain denies any itching denies any significant swelling. She has never smoked. She was obese at 5 foot 1 and weighs 186 pounds. I did do a left carotid endarterectomy on her back in July of last year. She currently denies any fever chills nausea vomiting or headache- [facility] DO Work Phone: [phone]) 616-512302-18-2023 History of Present illness Narrative* cough and bad sore throat * sore throat began 4 days ago * no nasal congestion * says "sometimes I feel i have a mucus plug in the back of my throat" and feels she can't breathe until she coughs it up * she denies new sob * her sore throat and cough are bothering her * She has not been having any fevers or chills * she has not been taking anything otc except some cough syrup * she has an appointment on Monday for oral surgery to have two incisors and a molar. 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 [facility] Work Phone: [phone]) 171-932110-25-2022 NotePROCEDURE DETAILS Preoperative Diagnosis: Acquired trigger finger of right middle finger, M65.331 Postoperative Diagnosis: Acquired trigger finger of right middle finger, M65.331 Surgeon: Yg López Resident/Fellow/Other Wire Basket Maker: Keeley Kessler Procedure: 1. RIGHT MIDDLE FINGER A-1 LINN RELEASE Anesthesia: No anesthesiologist associated with this case Estimated Blood Loss: 1mL Blood Replaced: none Findings: thickened A-1 linn Specimens(s) Collected: no, Complications: none Tourniquet Times: 4 minutes at 250mmHg on right forearm Patient Returned To/Condition: stable Date of Dictation: 01-Mar-2022 Dictated By: Yg López MD Dictation Job Number: [id number] Attestation: Note Completion: Attending AttestationI performed the procedure without a resident Electronic Signatures: Yg López) (Signed 01-Mar-2022 10:11) Authored: Post-Operative Note, Chart Review, Note Completion Last Updated: 01-Mar-2022 10:11 by Yg López)[facility] 03-01-2022 NoteHistory & Physical Reviewed: I have reviewed the History and Physical dated: 23-Feb-2022 History and Physical reviewed and relevant findings noted. Patient examined to review pertinent physical findings.: No significant changes Home Medications Reviewed: no changes noted Allergies Reviewed: no changes noted ERAS (Enhanced Recovery After Surgery): ERAS Patient: no Consent: COVID-19 Consent: COVID-19 Risk ConsentSurgeon has reviewed rice risks related to the risk of krystian COVID-19 and if they contract COVID-19 what the risks are. Electronic Signatures: Yg López) (Signed 01-Mar-2022 04:34) Authored: History & Physical Reviewed, ERAS, Consent, Note Completion Last Updated: 01-Mar-2022 04:34 by Yg López)[facility] 01-17-2022 History of Present illness Narrative* she saw Dr López, and she is going to have a trigger finger release on her right hand. * She also has a 6-month ultrasound status post her carotid endarterectomy to examine the opposite side. * She has an appointment scheduled with Felisha LACY at [facility] who follows her MGUS * Her A1c is a bit more elevated at 6.5. * she has never been treated for DM * her main dietary downfall are sweets at [employer] events or going out with friends * 1977 recall she had hypoglycemia * Her breathing is doing well, she sees Dr. Gibson from pulmonology. * she uses xoponex once every morning * uses pulmicort twice a day * She has not been having coughing or sputum. * She has no chest pain * No palpitations. She sees Dr. Hagen for cardiology * No constipation or diarrhea. [facility] Work Phone: [phone] History of Present illness Narrative Presents with 2 to 3 days of mid back spasms. States that she was reaching to change her shower curtain and now has tightness in her mid back. Pain does radiate to the low back but not to the lower extremities. No GI or incontinence. Home treatment with topicals has been ineffective. States romano has used Flexeril in the remote past with good relief and requests a short prescription of that. She has not had any falls or any direct trauma to the back.[facility] Work Phone: [phone]) 299-285703-01-2022 History of Present illness Narrative* she has had a right carotid endarterectomy in July due to a 90% stenosis * needs another ultrsound in Jan * she is on 40 mg pravastatin * she had severe myalgias on crestor and lipitor * she had some anemia * she started oral iron again due to anemia per cancer doctor * she has a dry cough * she was in ER for asthma attack * she saw Dr Gibson , is using xoponex every am rather thatn just prn * still on pulmicort [facility] Work Phone: [phone]) 560-548703-01-2022 History of Present illness Narrative* she has had a right carotid endarterectomy in July due to a 90% stenosis that was detected * needs another carotid ultrasound in January * she recovered well after the surgery * she is on 40 mg pravastatin * she had severe myalgias on crestor and lipitor, is tolerating pravastatin well * her LDL was 50 * Trig were 221 - ? due to higher sugars? * since her last visit she has a dry cough * she was in ER for asthma attack * she saw Dr Gibson , is using xoponex every am rather than just prn * still on pulmicort * she had some anemia * she started oral iron again due to anemia per cancer doctor * reviewed her labs: has elevated A1c at 6.3%, this has been stable for the past 3 readings * her fasting sugar was 141 * denies chest pain * denies constpiation or diarrhea [facility] Work Phone: [phone]) 266-128302-01-2022 History of Present illness Narrative* she had gone to the ER twice in early Jun * says "they wanted to keep me, but I chose to go home" * says "I was afraid of all the germs int he hsopita" * Feb 01: got 2 nebulizers and solumedrol iv and then a 10 day prednisone taper * : got 2 more nebuizers and ztihromax * she says she had seen pulm in [place], but wanted to see Dr Gibson on Monday * she was taking the nebuixer 4x a day, now is down to 2 x a day * she still has a slight dry cough * she is able to sleep now; her sleep was interrupted for 2 weeks with cough * overall she is feeling much better now * says that she had carotid u/s that showed 70% blockage * was told she needed to see Dr Kiser, never told what it was for so we discussed it. * she had muscle pain with other statins than pravastatin * she sees rita july 15 * she follows up for her MGUS in August [facility] Work Phone: [phone]) 977-465211-02-2021 Chief complaint Narrative - Reported* PAU MUÑOZ is being seen for follow-up of a hospitalization for evaluation. * Patient is here for in office visit patient was d/c from [facility] on 03/09/2021 w/ CHF had Cath w/o stent [facility] Work Phone: [phone]) [phone] Chief complaint Narrative - Reported* PAU MUÑOZ is being seen for follow-up of a hospitalization for evaluation. * Patient is here for in office visit patient was d/c from [facility] on 03/09/2021 w/ CHF had Cath w/o stent [facility] Work Phone: [phone] History of Present illness Narrative* Admitted to [facility] 03/06/21 with acute SOB * Had troponin bump-cath with non-obstructive dz * She did have increased BNP and mild CHF on CXR-was DC'ed on increased dose Lasix * No problems at R groin cath site * No definite angina * Some ANDREWS * Occasional palpitations * Had LH episode last week in setting of dehydration * No edema [facility] Work Phone: [phone] History of Present illness Narrative* Admitted to [facility] 03/06/21 with acute SOB * Had troponin bump-cath with non-obstructive dz * She did have increased BNP and mild CHF on CXR-was DC'ed on increased dose Lasix * No problems at R groin cath site * No definite angina * Some ANDREWS * Occasional palpitations * Had LH episode last week in setting of dehydration * No edema [facility] Work Phone: [phone]) [phone] History of Present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 Primary Atrioventricular block, complete Presence of cardiac pacemaker Cardiac pacemaker in situ Paroxysmal atrial fibrillation (Multi)- Primary Atrial fibrillation Acute cough Acute on chronic diastolic (congestive) heart failure Warfarin-induced coagulopathy (Multi) Other and unspecified coagulation defects Advanced diabetic retinal disease (Multi) Contusion of right chest wall, sequela Current use of anticoagulant therapy Atrioventricular block, complete (Multi) Atrioventricular block, complete documented in this encounter [facility] Work Phone: Evaluation note* Diagnosis Chronic heart failure with preserved ejection fraction- Primary Presence of cardiac pacemaker Cardiac pacemaker in situ 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, complete Complete atrioventricular block (Multi)- Primary Atrioventricular block, complete Presence of cardiac pacemaker Cardiac pacemaker in situ Paroxysmal atrial fibrillation (Multi)- Primary Atrial fibrillation Acute cough Acute on chronic diastolic (congestive) heart failure Warfarin-induced coagulopathy (Multi) Other and unspecified coagulation defects Advanced diabetic retinal disease (Multi) Contusion of right chest wall, sequela Current use of anticoagulant therapy Hypercholesterolemia- Primary Pure hypercholesterolemia Paroxysmal atrial fibrillation (Multi) Atrial fibrillation Type 2 diabetes mellitus without complication, without long-term current use of insulin (Multi) Spinal stenosis of lumbar region with neurogenic claudication Essential hypertension Unspecified essential hypertension documented in this encounter [facility] Work Phone: Evaluation note* Diagnosis Chronic heart failure with preserved ejection fraction- Primary Presence of cardiac pacemaker Cardiac pacemaker in situ 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, complete Complete atrioventricular block (Multi)- Primary Atrioventricular block, complete Presence of cardiac pacemaker Cardiac pacemaker in situ Paroxysmal atrial fibrillation (Multi)- Primary Atrial fibrillation Acute cough Acute on chronic diastolic (congestive) heart failure Warfarin-induced coagulopathy (Multi) Other and unspecified coagulation defects Advanced diabetic retinal disease (Multi) Contusion of right chest wall, sequela Current use of anticoagulant therapy High risk medication use- Primary 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, complete Presence of cardiac pacemaker Cardiac pacemaker in situ Permanent atrial fibrillation (Multi) Atrial fibrillation Chronic heart failure with preserved ejection fraction documented in this encounter [facility] Work Phone: Evaluation note* Diagnosis Chronic heart failure with preserved ejection fraction- Primary Presence of cardiac pacemaker Cardiac pacemaker in situ 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, complete Complete atrioventricular block (Multi)- Primary Atrioventricular block, complete Presence of cardiac pacemaker Cardiac pacemaker in situ Paroxysmal atrial fibrillation (Multi)- Primary Atrial fibrillation Acute cough Acute on chronic diastolic (congestive) heart failure Warfarin-induced coagulopathy (Multi) Other and unspecified coagulation defects Advanced diabetic retinal disease (Multi) Contusion of right chest wall, sequela Current use of anticoagulant therapy High risk medication use- Primary 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, complete Presence of cardiac pacemaker Cardiac pacemaker in situ Permanent atrial fibrillation (Multi) Atrial fibrillation Chronic heart failure with preserved ejection fraction Mass of upper inner quadrant of right breast- Primary Warfarin-induced coagulopathy (Multi) Other and unspecified coagulation defects Permanent atrial fibrillation (Multi) Atrial fibrillation On warfarin therapy documented in this encounter [facility] Work Phone: Evaluation note* Diagnosis Chronic heart failure with preserved ejection fraction- Primary Presence of cardiac pacemaker Cardiac pacemaker in situ 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, complete Complete atrioventricular block (Multi)- Primary Atrioventricular block, complete Presence of cardiac pacemaker Cardiac pacemaker in situ Paroxysmal atrial fibrillation (Multi)- Primary Atrial fibrillation Acute cough Acute on chronic diastolic (congestive) heart failure Warfarin-induced coagulopathy (Multi) Other and unspecified coagulation defects Advanced diabetic retinal disease (Multi) Contusion of right chest wall, sequela Current use of anticoagulant therapy High risk medication use- Primary 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, complete Presence of cardiac pacemaker Cardiac pacemaker in situ Permanent atrial fibrillation (Multi) Atrial fibrillation Chronic heart failure with preserved ejection fraction Mass of upper inner quadrant of right breast- Primary Warfarin-induced coagulopathy (Multi) Other and unspecified coagulation defects Permanent atrial fibrillation (Multi) Atrial fibrillation On warfarin therapy Breast pain Mastodynia documented in this encounter [facility] Work Phone: Evaluation note* Diagnosis Chronic heart failure with preserved ejection fraction- Primary Presence of cardiac pacemaker Cardiac pacemaker in situ 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, complete Complete atrioventricular block (Multi)- Primary Atrioventricular block, complete Presence of cardiac pacemaker Cardiac pacemaker in situ Paroxysmal atrial fibrillation (Multi)- Primary Atrial fibrillation Acute cough Acute on chronic diastolic (congestive) heart failure Warfarin-induced coagulopathy (Multi) Other and unspecified coagulation defects Advanced diabetic retinal disease (Multi) Contusion of right chest wall, sequela Current use of anticoagulant therapy High risk medication use- Primary 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, complete Presence of cardiac pacemaker Cardiac pacemaker in situ Permanent atrial fibrillation (Multi) Atrial fibrillation Chronic heart failure with preserved ejection fraction Mass of upper inner quadrant of right breast- Primary Warfarin-induced coagulopathy (Multi) Other and unspecified coagulation defects Permanent atrial fibrillation (Multi) Atrial fibrillation On warfarin therapy Palpable mass of breast Unspecified lump in the right breast, upper inner quadrant documented in this encounter [facility] Work Phone: Evaluation note* Diagnosis Chronic heart failure with preserved ejection fraction- Primary Presence of cardiac pacemaker Cardiac pacemaker in situ 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, complete Complete atrioventricular block (Multi)- Primary Atrioventricular block, complete Presence of cardiac pacemaker Cardiac pacemaker in situ Paroxysmal atrial fibrillation (Multi)- Primary Atrial fibrillation Acute cough Acute on chronic diastolic (congestive) heart failure Warfarin-induced coagulopathy (Multi) Other and unspecified coagulation defects Advanced diabetic retinal disease (Multi) Contusion of right chest wall, sequela Current use of anticoagulant therapy High risk medication use- Primary 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, complete Presence of cardiac pacemaker Cardiac pacemaker in situ Permanent atrial fibrillation (Multi) Atrial fibrillation Chronic heart failure with preserved ejection fraction Mass of upper inner quadrant of right breast- Primary Warfarin-induced coagulopathy (Multi) Other and unspecified coagulation defects Permanent atrial fibrillation (Multi) Atrial fibrillation On warfarin therapy Hypercholesterolemia- Primary Pure hypercholesterolemia Essential hypertension Unspecified essential hypertension Type 2 diabetes mellitus with hypoglycemia without coma, without long-term current use of insulin Permanent atrial fibrillation (Multi) Atrial fibrillation Medication monitoring encounter Encounter for therapeutic drug monitoring documented in this encounter [facility] Work Phone: Evaluation note* Diagnosis Chronic heart failure with preserved ejection fraction- Primary Presence of cardiac pacemaker Cardiac pacemaker in situ 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, complete Complete atrioventricular block (Multi)- Primary Atrioventricular block, complete Presence of cardiac pacemaker Cardiac pacemaker in situ Paroxysmal atrial fibrillation (Multi)- Primary Atrial fibrillation Acute cough Acute on chronic diastolic (congestive) heart failure Warfarin-induced coagulopathy (Multi) Other and unspecified coagulation defects Advanced diabetic retinal disease (Multi) Contusion of right chest wall, sequela Current use of anticoagulant therapy High risk medication use- Primary 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, complete Presence of cardiac pacemaker Cardiac pacemaker in situ Permanent atrial fibrillation (Multi) Atrial fibrillation Chronic heart failure with preserved ejection fraction Mass of upper inner quadrant of right breast- Primary Warfarin-induced coagulopathy (Multi) Other and unspecified coagulation defects Permanent atrial fibrillation (Multi) Atrial fibrillation On warfarin therapy Hypercholesterolemia- Primary Pure hypercholesterolemia Essential hypertension Unspecified essential hypertension Type 2 diabetes mellitus with hypoglycemia without coma, without long-term current use of insulin Permanent atrial fibrillation (Multi) Atrial fibrillation Medication monitoring encounter Encounter for therapeutic drug monitoring Paroxysmal atrial fibrillation (Multi) Atrial fibrillation 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, complete Presence of cardiac pacemaker Cardiac pacemaker in situ documented in this encounter [facility] Work Phone: Evaluation note* Diagnosis Chronic heart failure with preserved ejection fraction- Primary Presence of cardiac pacemaker Cardiac pacemaker in situ 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, complete Complete atrioventricular block (Multi)- Primary Atrioventricular block, complete Presence of cardiac pacemaker Cardiac pacemaker in situ Paroxysmal atrial fibrillation (Multi)- Primary Atrial fibrillation Acute cough Acute on chronic diastolic (congestive) heart failure Warfarin-induced coagulopathy (Multi) Other and unspecified coagulation defects Advanced diabetic retinal disease (Multi) Contusion of right chest wall, sequela Current use of anticoagulant therapy High risk medication use- Primary 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, complete Presence of cardiac pacemaker Cardiac pacemaker in situ Permanent atrial fibrillation (Multi) Atrial fibrillation Chronic heart failure with preserved ejection fraction Mass of upper inner quadrant of right breast- Primary Warfarin-induced coagulopathy (Multi) Other and unspecified coagulation defects Permanent atrial fibrillation (Multi) Atrial fibrillation On warfarin therapy Hypercholesterolemia- Primary Pure hypercholesterolemia Essential hypertension Unspecified essential hypertension Type 2 diabetes mellitus with hypoglycemia without coma, without long-term current use of insulin Permanent atrial fibrillation (Multi) Atrial fibrillation Medication monitoring encounter Encounter for therapeutic drug monitoring Carotid stenosis Occlusion and stenosis of carotid artery without mention of cerebral infarction Carotid stenosis, bilateral Occlusion and stenosis of carotid artery without mention of cerebral infarction Occlusion and stenosis of left carotid artery documented in this encounter [facility] Work Phone: Evaluation note* Diagnosis Spinal stenosis, lumbar region with neurogenic claudication CAD, multiple vessel Coronary atherosclerosis of unspecified type of vessel, [place] or graft AICD (automatic cardioverter/defibrillator) present Automatic implantable cardiac defibrillator in situ Cardiac pacemaker in situ Spinal stenosis of lumbar region with neurogenic claudication Spinal stenosis, lumbar region, with neurogenic claudication [facility] Spinal stenosis, lumbar region with neurogenic claudication CAD, multiple vessel Coronary atherosclerosis of unspecified type of vessel, [place] or graft AICD (automatic cardioverter/defibrillator) present Automatic implantable cardiac defibrillator in situ Cardiac pacemaker in situ Spinal stenosis of lumbar region with neurogenic claudication Spinal stenosis, lumbar region, with neurogenic claudication [facility] Diagnosis Spinal stenosis, lumbar region with neurogenic claudication CAD, multiple vessel Coronary atherosclerosis of unspecified type of vessel, [place] or graft AICD (automatic cardioverter/defibrillator) present Automatic implantable cardiac defibrillator in situ Cardiac pacemaker in situ Spinal stenosis of lumbar region with neurogenic claudication Spinal stenosis, lumbar region, with neurogenic claudication [facility] Diagnosis Chronic heart failure with preserved ejection fraction- Primary Presence of cardiac pacemaker Cardiac pacemaker in situ 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, complete Complete atrioventricular block (Multi)- Primary Atrioventricular block, complete Presence of cardiac pacemaker Cardiac pacemaker in situ Paroxysmal atrial fibrillation (Multi)- Primary Atrial fibrillation Acute cough Acute on chronic diastolic (congestive) heart failure Warfarin-induced coagulopathy (Multi) Other and unspecified coagulation defects Advanced diabetic retinal disease (Multi) Contusion of right chest wall, sequela Current use of anticoagulant therapy High risk medication use- Primary 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, complete Presence of cardiac pacemaker Cardiac pacemaker in situ Permanent atrial fibrillation (Multi) Atrial fibrillation Chronic heart failure with preserved ejection fraction Mass of upper inner quadrant of right breast- Primary Warfarin-induced coagulopathy (Multi) Other and unspecified coagulation defects Permanent atrial fibrillation (Multi) Atrial fibrillation On warfarin therapy Hypercholesterolemia- Primary Pure hypercholesterolemia Essential hypertension Unspecified essential hypertension Type 2 diabetes mellitus with hypoglycemia without coma, without long-term current use of insulin Permanent atrial fibrillation (Multi) Atrial fibrillation Medication monitoring encounter Encounter for therapeutic drug monitoring Carotid stenosis, bilateral Occlusion and stenosis of carotid artery without mention of cerebral infarction documented in this encounter [facility] Work Phone: Evaluation note* Diagnosis Chronic heart failure with preserved ejection fraction- Primary Presence of cardiac pacemaker Cardiac pacemaker in situ 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, complete Complete atrioventricular block (Multi)- Primary Atrioventricular block, complete Presence of cardiac pacemaker Cardiac pacemaker in situ Paroxysmal atrial fibrillation (Multi)- Primary Atrial fibrillation Acute cough Acute on chronic diastolic (congestive) heart failure Warfarin-induced coagulopathy (Multi) Other and unspecified coagulation defects Advanced diabetic retinal disease (Multi) Contusion of right chest wall, sequela Current use of anticoagulant therapy High risk medication use- Primary 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, complete Presence of cardiac pacemaker Cardiac pacemaker in situ Permanent atrial fibrillation (Multi) Atrial fibrillation Chronic heart failure with preserved ejection fraction Mass of upper inner quadrant of right breast- Primary Warfarin-induced coagulopathy (Multi) Other and unspecified coagulation defects Permanent atrial fibrillation (Multi) Atrial fibrillation On warfarin therapy Hypercholesterolemia- Primary Pure hypercholesterolemia Essential hypertension Unspecified essential hypertension Type 2 diabetes mellitus with hypoglycemia without coma, without long-term current use of insulin Permanent atrial fibrillation (Multi) Atrial fibrillation Medication monitoring encounter Encounter for therapeutic drug monitoring Encounter for preventative adult health care examination- Primary Permanent atrial fibrillation (Multi) Atrial fibrillation Essential hypertension Unspecified essential hypertension Type 2 diabetes mellitus with hypoglycemia without coma, without long-term current use of insulin Anticoagulated by anticoagulation treatment Encounter for screening for other disorder Vitreous hemorrhage, left eye (Multi) Vitreous hemorrhage Advanced diabetic retinal disease (Multi) documented in this encounter [facility] Work Phone: Evaluation note* Diagnosis Chronic heart failure with preserved ejection fraction- Primary Presence of cardiac pacemaker Cardiac pacemaker in situ 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, complete Complete atrioventricular block (Multi)- Primary Atrioventricular block, complete Presence of cardiac pacemaker Cardiac pacemaker in situ Paroxysmal atrial fibrillation (Multi)- Primary Atrial fibrillation Acute cough Acute on chronic diastolic (congestive) heart failure Warfarin-induced coagulopathy (Multi) Other and unspecified coagulation defects Advanced diabetic retinal disease (Multi) Contusion of right chest wall, sequela Current use of anticoagulant therapy High risk medication use- Primary 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, complete Presence of cardiac pacemaker Cardiac pacemaker in situ Permanent atrial fibrillation (Multi) Atrial fibrillation Chronic heart failure with preserved ejection fraction Mass of upper inner quadrant of right breast- Primary Warfarin-induced coagulopathy (Multi) Other and unspecified coagulation defects Permanent atrial fibrillation (Multi) Atrial fibrillation On warfarin therapy Hypercholesterolemia- Primary Pure hypercholesterolemia Essential hypertension Unspecified essential hypertension Type 2 diabetes mellitus with hypoglycemia without coma, without long-term current use of insulin Permanent atrial fibrillation (Multi) Atrial fibrillation Medication monitoring encounter Encounter for therapeutic drug monitoring Encounter for preventative adult health care examination- Primary Permanent atrial fibrillation (Multi) Atrial fibrillation Essential hypertension Unspecified essential hypertension Type 2 diabetes mellitus with hypoglycemia without coma, without long-term current use of insulin Anticoagulated by anticoagulation treatment Encounter for screening for other disorder Vitreous hemorrhage, left eye (Multi) Vitreous hemorrhage Advanced diabetic retinal disease (Multi) 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, complete Presence of cardiac pacemaker Cardiac pacemaker in situ documented in this encounter [facility] Work Phone: Evaluation note* Diagnosis Chronic heart failure with preserved ejection fraction- Primary Presence of cardiac pacemaker Cardiac pacemaker in situ 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, complete Paroxysmal atrial fibrillation (Multi)- Primary Atrial fibrillation Acute cough Acute on chronic diastolic (congestive) heart failure Warfarin-induced coagulopathy (Multi) Other and unspecified coagulation defects Advanced diabetic retinal disease (Multi) Contusion of right chest wall, sequela Current use of anticoagulant therapy High risk medication use- Primary 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, complete Presence of cardiac pacemaker Cardiac pacemaker in situ Permanent atrial fibrillation (Multi) Atrial fibrillation Chronic heart failure with preserved ejection fraction Mass of upper inner quadrant of right breast- Primary Warfarin-induced coagulopathy (Multi) Other and unspecified coagulation defects Permanent atrial fibrillation (Multi) Atrial fibrillation On warfarin therapy Hypercholesterolemia- Primary Pure hypercholesterolemia Essential hypertension Unspecified essential hypertension Type 2 diabetes mellitus with hypoglycemia without coma, without long-term current use of insulin Permanent atrial fibrillation (Multi) Atrial fibrillation Medication monitoring encounter Encounter for therapeutic drug monitoring Encounter for preventative adult health care examination- Primary Permanent atrial fibrillation (Multi) Atrial fibrillation Essential hypertension Unspecified essential hypertension Type 2 diabetes mellitus with hypoglycemia without coma, without long-term current use of insulin Anticoagulated by anticoagulation treatment Encounter for screening for other disorder Vitreous hemorrhage, left eye (Multi) Vitreous hemorrhage Advanced diabetic retinal disease (Multi) Moderate persistent asthma without complication (HHS-HCC)- Primary Permanent atrial fibrillation (Multi) Atrial fibrillation Essential hypertension Unspecified essential hypertension Type 2 diabetes mellitus with hypoglycemia without coma, without long-term current use of insulin Primary osteoarthritis involving multiple joints documented in this encounter [facility] Work Phone: Evaluation note* Diagnosis Chronic heart failure with preserved ejection fraction (Multi)- Primary Presence of cardiac pacemaker Cardiac pacemaker in situ 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, complete Paroxysmal atrial fibrillation (Multi)- Primary Atrial fibrillation Acute cough Acute on chronic diastolic (congestive) heart failure (Multi) Warfarin-induced coagulopathy (Multi) Other and unspecified coagulation defects Advanced diabetic retinal disease (Multi) Contusion of right chest wall, sequela Current use of anticoagulant therapy High risk medication use- Primary 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, complete Presence of cardiac pacemaker Cardiac pacemaker in situ Permanent atrial fibrillation (Multi) Atrial fibrillation Chronic heart failure with preserved ejection fraction (Multi) Mass of upper inner quadrant of right breast- Primary Warfarin-induced coagulopathy (Multi) Other and unspecified coagulation defects Permanent atrial fibrillation (Multi) Atrial fibrillation On warfarin therapy Hypercholesterolemia- Primary Pure hypercholesterolemia Essential hypertension Unspecified essential hypertension Type 2 diabetes mellitus with hypoglycemia without coma, without long-term current use of insulin (Multi) Permanent atrial fibrillation (Multi) Atrial fibrillation Medication monitoring encounter Encounter for therapeutic drug monitoring Encounter for preventative adult health care examination- Primary Permanent atrial fibrillation (Multi) Atrial fibrillation Essential hypertension Unspecified essential hypertension Type 2 diabetes mellitus with hypoglycemia without coma, without long-term current use of insulin (Multi) Anticoagulated by anticoagulation treatment Encounter for screening for other disorder Vitreous hemorrhage, left eye (Multi) Vitreous hemorrhage Advanced diabetic retinal disease (Multi) 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, complete Presence of cardiac pacemaker Cardiac pacemaker in situ documented in this encounter [facility] Work Phone: History of Present illness Narrative* This is a 70-year-old female with a history of atrial fibrillation and complete heart block. She was recently seen in the emergency department at [facility] with shortness of breath. She had mild CHF and was placed on a higher dose of oral furosemide. The hospital records were reviewed with her during today's visit. * The patient was hospitalized early in 2020 at [facility] because of pneumonia. She hadanother hospitalization in 2020 for COVID-19. No chest pain or any pacemaker related problems at this time. [id number] Work Phone: History of Present illness Narrative* Her left ear is hurting her * Her left ear was pretty itchy; she had been scratching in the ear canal only this time she thinks she irritated something * She felt that the canal was swollen and she was unable to insert her left hearing aid * The area actually started some draining this morning of some clear to bloody fluid [facility] Work Phone: History of Present illness Narrative* This is a 70-year-old female with a history of atrial fibrillation and complete heart block. She has noticed an increase in dyspnea on exertion. No orthopnea. No chest pain or palpitations. * Pau was hospitalized early in 2020 at [facility] because of pneumonia. She had another hospitalization in 2020 because of COVID-19. [address] Work Phone: History of Present illness Narrative* This is a 70-year-old female with a history of atrial fibrillation and complete heart block. She has noticed an increase in dyspnea on exertion. No orthopnea. No chest pain or palpitations. * Pau was hospitalized early in 2020 at [facility] because of pneumonia. She had another hospitalization in 2020 because of COVID-19. [facility] Work Phone: History of Present illness Narrative* 70-year-old female here for cough and congestion. Patient reports a 3-day history of runny nose, nasal congestion, sore throat that has since resolved, and dry cough occasionally productive of mucus.She denies fever or body aches. States she did have the chills once or twice. She denies chest pain, shortness of breath, vomiting, diarrhea or other systemic complaints. Has not taken anything for he r symptoms other than cough syrup. States she had Covid back in 2020 and did receive 2 vaccines this year. * Past medical history is significant for VSD, CHF, pneumonia, hypertension, hypercholesterolemia, asthma [facility] Work Phone: History of Present illness Narrative* This is a 70-year-old female with a history of atrial fibrillation and complete heart block. She has noticed an increase in dyspnea on exertion. No orthopnea. No chest pain or palpitations. * Pau was hospitalized early in 2019 at [facility] because of pneumonia. She had another hospitalization in 2020 because of COVID-19. [facility] Work Phone: History of Present illness NarrativeThidarya is a 71-year-old female with atrial fibrillation and complete heart block. She has a Medtronicpermanent pacemaker. Currently no complaints of palpitations or chest pain. She still has dyspnea on exertion at times.[id number] [address] [place] Work Phone: History of Present illness NarrativeThis patient presents today for follow-up of her left carotid endarterectomy. She states that she has some numbness along her left jawline and a little bit of ear pain. The ear pain seems to be getting slightly better. She is able to sleep at night. She is back on her Xarelto. She denies any fever chills nausea vomiting or headache [id number] Work Phone: History of Present illness Narrative* Has chronic ANDREWS- no wheeze * Occasional transient palpitations * No CP/dizziness/LH/edema * Active but no regular exercise * No bleeding with Xarelto [facility] Work Phone: History of Present illness NarrativePatient comes in today for first postoperative visit after undergoing a right middle finger triggerrelease. She has had very little pain. She has been able to use her right middle finger without difficulty.[facility] [place] Work Phone: History of Present illness Narrative* The patient is being seen for the subsequent annual wellness visit. * Past Medical, Surgical and Family History: reviewed and updated in chart. * Interval History: Patient has not been hospitalized previously. * Medications and Supplements: Review of all medications by a prescribing practitioner or clinical pharmacist (such as prescriptions, OTCs, herbal therapies and supplements) documented in the medical record. * No, the patient is not using opioids. * Patient Self Assessment of Health Status: good. * Tobacco use: Non-User * Alcohol use: Non-User * Illicit drug use: Non-User * Current diet: well balanced diet, does consume adequate fluids and does not consume caffeine. * Exercise Frequency: infrequently. * Depression/Suicide Screening: . * During the past 2 weeks, the patient has not felt down, depressed or hopeless. * During the past 2 weeks, the patient has not felt little interest or pleasure in doing things. * Hearing Impairment: Patient has significant hearing impairment, bilaterally, She uses a hearing aid. * Cognitive Impairment: No cognitive impairment observed. * Bathing: performs independently. * Dressing: performs independently. * Walking: performs independently. * Managing Finances: performs independently. * Shopping: performs independently. * Managing Medications: performs independently. * Housework / Basic Home Maintenance: performs independently. * Falls Risk Screening:. PAU has not fallen in the last 6 months. * Home safety risk factors: none. * Advance directives:. Advance Care Planning discussed and documented in the medical record, patient did not wish or was not able to name a surrogate decision maker or provide an advance care plan. Patient has no living will. Patient has no healthcare POA. * Patient's End of Life Decisions: I agree to follow the patient's decisions. Concerns with the patient's end of life decisions: Pt expresses desire to be full code. * She is here for her annual Medicare wellness visit. * went to ER on 04/03/22 * she had been feeling sick for 24 hours before going to er * COVID, RSV were neg * she does note that she went to a wedding, but has had other occasions where people are sic, * still having some sob * mild expectoration * her temp was never over 100.4 * she is still using pulmicort and xoponex * aoids caffiene due to palps and also breast cysts * she has been walking for exercise * 5 times around her building is a mile * she visits family, goes to [employer] [facility] Work Phone: History of Present illness Narrative* Patient identification verified with 2 patient identifiers. * Anticoagulation Monitoring Service: [facility]. * Enrollment/Re-enrollment date: August 17, 2023. * The patient is being seen as a new patient for anticoagulation monitoring. * Target INR 2-3. Monitoring practitioner Ronit Doan DO. * Date Warfarin Begun: August 01, 2022. * INR monitoring is per [facility] protocol. * The patient is on anticoagulation due to atrial fibrillation/flutter. * The patient is currently taking warfarin Tablet strength and color: 5 mg([place]) * Interval History: * Previous INR was 2.1. INR via lab Monday08/13/22 was 2.1. Patient had been on 5 mg daily until 08/11/22. She was taking Xarelto and started warfarin on Monday08/06/22. * Incoming total weekly dose 35 mg. * Today's Clinic INR: [facility] INR 2.3. * Since last visit, the patient reports no bleeding. * The patient did not experience clinically relevant bleeding. * The patient did not experience other minor bleeding. * Since last visit, the patient has not experienced a thrombotic event. * The patient reports no change in medication. * She reports no change in alcohol consumption. * She reports no change in Vitamin K consumption. * The patient did not take Warfarin as directed. * Management: The patient's INR is within target range. Will maintain dose. * Next follow up appointment in week(s). * Outgoing total weekly dose 30 mg. [facility] Work Phone: History of Present illness Narrative* Patient identification verified with 2 patient identifiers. * Anticoagulation Monitoring Service: [facility]. * August 10, 2023. * The patient is being seen as a follow-up for anticoagulation monitoring. * Target INR 2-3. Monitoring practitioner Ronit Doan DO. * Date Warfarin Begun: November 01, 2022. * INR monitoring is per [facility] protocol. * The patient is on anticoagulation due to atrial fibrillation/flutter. * The patient is currently taking warfarin Tablet strength and color: 2.5 mg ([place]) 5 mg([place]). * Interval History: * Patient was last seen: September 21, 2022. * Previous INR was 3.4. Since last visit, another INR has been reported as 2.7 on 09/24/22. * Two doses were held and TWD was reduced at time of last appointment. * Incoming total weekly dose 16.25 mg. * Today's Clinic INR: [facility] INR 3.9. * Since last visit, the patient reports no bleeding. * The patient did not experience clinically relevant bleeding. * The patient did not experience other minor bleeding. * Since last visit, the patient has not experienced a thrombotic event. * The patient reports a change in medication. * The patient stopped or started steroids. Finished five days ago. * She reports no change in alcohol consumption. * She reports no change in Vitamin K consumption. * The patient has taken Warfarin as directed. * Management: The patient's INR is supratherapeutic. Hold 1 dose. Monday10/04/22. Will maintain current dose. * The patient is not currently being bridged. * Next follow up appointment in 1 week(s). * Outgoing total weekly dose 16.25 mg. * Patient instructed to call in interim with questions, concerns and changes. Patient educated on signs of bleeding/clotting. [facility] Work Phone: Instructions* Name Dates Details Instructions not documented [facility] Work Phone: Instructions* Instruction Text Follow up with your doctor. [facility] Reason for referral (narrative)* Consultation (Routine) - Authorized Specialty Diagnoses / Procedures Referred By Nikki t Referred To Contact Cardiology Diagnoses Heart failure with preserved ejection fraction, unspecified HF chronicity (CMS/HCC) Procedures Follow Up In Cardiology Charline Hagen DO [address] [facility] [address], [address] [address] Referral ID Status Reason Start Date Expiration Date V isits Requested Visits Authorized [id number] Authorized 05/16/2023 05/15/2024 1 1 [facility] Work Phone: Reason for referral (narrative)* Consultation (Routine) - Authorized Specialty Diagnoses / Procedures Referred By Nikki t Referred To Contact Cardiology Diagnoses Heart failure with preserved ejection fraction, unspecified HF chronicity (Multi) Procedures Follow Up In Cardiology Charline Hagen DO [address], [address] [place] [address] Referral ID Status Reason Start Date Expiration Date V isits Requested Visits Authorized [id number] Authorized 11/14/2023 11/13/2024 1 1 * Cardiovascular (Routine) - Authorized Specialty Diagnoses / Procedures Referred By Nikki t Referred To Contact Diagnoses Heart failure with preserved ejection fraction, unspecified HF chronicity (Multi) Procedures ECG 12 Lead Charline Hagen DO [address], [facility] [address] [place] [id number] Referral ID Status Reason Start Date Expiration Date V isits Requested Visits Authorized [id number] Authorized 11/14/2023 11/13/2024 1 1 [facility] Work Phone: Rezvbk for referral (narrative)No reason for referral information [facility] Work Phone: Reason for visit Narrative* Imaging (Routine) - Authorized Specialty Diagnoses / Procedures Referred By Nikki t Referred To Contact Cardiology Diagnoses Atrioventricular block, complete (Multi) Procedures Cardiac device check - In Clinic Timothy Palacio DO [address], [address] [place] [id number] Phone: tel: fax: Referral ID Status Reason Start Date Expiration Date Visits Requested Visits Authorized [id number] Authorized Perform Procedure 04/12/2024 04/12/2025 1 1 [facility] Work Phone: Recabo for visit Narrative* Imaging (Routine) - Authorized Specialty Diagnoses / Procedures Referred By Contac t Referred To Contact Radiology Diagnoses Breast pain Procedures BI mammo bilateral diagnostic tomosynthesis Ronit Doan DO [address] [facility], [address] [address] Phone: tel: fax: Referral ID Status Reason Start Date Expiration Date Visits Requested Visits Authorized [id number] Authorized Perform Procedure 06/11/2024 06/11/2025 1 1 [facility] Work Phone: Reason for visit Narrative* Imaging (Routine) - Authorized Specialty Diagnoses / Procedures Referred By Nikki pandey Referred To Contact Radiology Diagnoses Palpable mass of breast Unspecified lump in the right breast, upper inner quadrant Procedures BI US breast limited right Ronit Doan DO [address] [facility], [address] [address] Phone: tel: fax: Referral ID Status Reason Start Date Expiration Date Visits Requested Visits Authorized [id number] Authorized Perform Procedure 07/05/2024 07/05/2025 1 1 [facility] Work Phone: Reason for visit Narrative* Imaging (Routine) - Authorized Specialty Diagnoses / Procedures Referred By Nikki pandey Referred To Contact Cardiology Diagnoses Paroxysmal atrial fibrillation (Multi) Complete atrioventricular block (Multi) Presence of cardiac pacemaker Procedures Cardiac Device Check - Remote Timothy Palacio, DO [address] [facility] [address], [address] [place] [address] Phone: tel: fax: [facility] [employer] [facility] Building [address] [employer] [facility] [address] [place] [address] Phone: tel: fax: Referral ID Status Reason Start Date Expiration Date Visits Requested Visits Authorized [id number] Authorized Perform Procedure 10/23/2023 10/22/2024 30 30 [facility] Work Phone: reason for visit Narrative* Imaging (Routine) - Authorized Specialty Diagnoses / Procedures Referred By Contac t Referred To Contact Cardiology Diagnoses Carotid stenosis Carotid stenosis, bilateral Procedures Vascular US carotid artery duplex bilateral Jaylon Kiser, DO [address] [facility] [address] [place] [address] Phone: tel: fax: Referral ID Status Reason Start Date Expiration Date Visits Requested Visits Authorized [id number] Authorized Perform Procedure 08/24/2023 08/23/2024 1 1 [facility] Work Phone: Reason for visit Narrative* Imaging (Routine) - Authorized Specialty Diagnoses / Procedures Referred By Contac t Referred To Contact Cardiology Diagnoses Complete atrioventricular block (Multi) Presence of cardiac pacemaker Procedures Cardiac device check - Remote Timothy Palacio, DO [address], [facility] [address] [place] [address] Phone: tel: fax: Referral ID Status Reason Start Date Expiration Date Visits Requested Visits Authorized [id number] Authorized Perform Procedure 11/12/2024 11/12/2025 6 6 [facility] Work Phone: Reason for visit Narrative* Consultation (Routine) - Authorized Specialty Diagnoses / Procedures Referred By Contac t Referred To Contact Primary Care Diagnoses Permanent atrial fibrillation (Multi) Essential hypertension Type 2 diabetes mellitus with hypoglycemia without coma, without long-term current use of insulin Procedures Follow Up In [facility] - PCP - Established Ronit Doan DO [address] [facility], [address] [place] [address] Phone: tel: fax: Referral ID Status Reason Start Date Expiration Date V isits Requested Visits Authorized [id number] Authorized 10/28/2024 10/28/2025 1 1 [facility] Work Phone: Summary Purpose Family History No Family History Records Found Mother Name Dates Details Family history of Status:Active Family history of myocardial infarction(V17.3, Z82.49) Status:Active Father Name Dates Details Family history of Status:Active Family history of coronary a rtery disease(V17.3, Z82.49) Status:Active Family history of lung cance r(V16.1, Z80.1) Status:Active Sister Name Dates Details Family history of malignant neoplasm of breast(V16.3, Z80.3) Status:Active Mother Name Dates Details Family history of Status:Active Family history of myocardial infarction(V17.3, Z82.49) Status:Active Father Name Dates Details Family history of Status:Active Family history of coronary a rtery disease(V17.3, Z82.49) Status:Active Family history of lung cance r(V16.1, Z80.1) Status:Active Sister Name Dates Details Family history of malignant neoplasm of breast(V16.3, Z80.3) Status:Active Mother Name Dates Details Family history of Status:Active Family history of myocardial infarction(V17.3, Z82.49) Status:Active Father Name Dates Details Family history of Status:Active Family history of coronary a rtery disease(V17.3, Z82.49) Status:Active Family history of lung cance r(V16.1, Z80.1) Status:Active Sister Name Dates Details Family history of malignant neoplasm of breast(V16.3, Z80.3) Status:Active Mother Name Dates Details Family history of Status:Active Family history of myocardial infarction(V17.3, Z82.49) Status:Active Father Name Dates Details Family history of Status:Active Family history of coronary a rtery disease(V17.3, Z82.49) Status:Active Family history of lung cance r(V16.1, Z80.1) Status:Active Sister Name Dates Details Family history of malignant neoplasm of breast(V16.3, Z80.3) Status:Active Mother Name Dates Details Family history of Status:Active Family history of myocardial infarction(V17.3, Z82.49) Status:Active Father Name Dates Details Family history of Status:Active Family history of coronary a rtery disease(V17.3, Z82.49) Status:Active Family history of lung cance r(V16.1, Z80.1) Status:Active Sister Name Dates Details Family history of malignant neoplasm of breast(V16.3, Z80.3) Status:Active Mother Name Dates Details Family history of Status:Active Family history of myocardial infarction(V17.3, Z82.49) Status:Active Father Name Dates Details Family history of Status:Active Family history of coronary a rtery disease(V17.3, Z82.49) Status:Active Family history of lung cance r(V16.1, Z80.1) Status:Active Sister Name Dates Details Family history of malignant neoplasm of breast(V16.3, Z80.3) Status:Active Mother Name Dates Details Family history of Status:Active Family history of myocardial infarction(V17.3, Z82.49) Status:Active Father Name Dates Details Family history of Status:Active Family history of coronary a rtery disease(V17.3, Z82.49) Status:Active Family history of lung cance r(V16.1, Z80.1) Status:Active Sister Name Dates Details Family history of malignant neoplasm of breast(V16.3, Z80.3) Status:Active Mother Name Dates Details Family history of Status:Active Family history of myocardial infarction(V17.3, Z82.49) Status:Active Father Name Dates Details Family history of Status:Active Family history of coronary a rtery disease(V17.3, Z82.49) Status:Active Family history of lung cance r(V16.1, Z80.1) Status:Active Sister Name Dates Details Family history of malignant neoplasm of breast(V16.3, Z80.3) Status:Active Mother Name Dates Details Family history of Status:Active Family history of myocardial infarction(V17.3, Z82.49) Status:Active Father Name Dates Details Family history of coronary a rtery disease(V17.3, Z82.49) Status:Active Family history of Status:Active Family history of lung cance r(V16.1, Z80.1) Status:Active Sister Name Dates Details Family history of malignant neoplasm of breast(V16.3, Z80.3) Status:Active Mother Name Dates Details Family history of Status:Active Family history of myocardial infarction(V17.3, Z82.49) Status:Active Father Name Dates Details Family history of Status:Active Family history of coronary a rtery disease(V17.3, Z82.49) Status:Active Family history of lung cance r(V16.1, Z80.1) Status:Active Sister Name Dates Details Family history of malignant neoplasm of breast(V16.3, Z80.3) Status:Active Mother Name Dates Details Family history of Status:Active Family history of myocardial infarction(V17.3, Z82.49) Status:Active Father Name Dates Details Family history of Status:Active Family history of coronary a rtery disease(V17.3, Z82.49) Status:Active Family history of lung cance r(V16.1, Z80.1) Status:Active Sister Name Dates Details Family history of malignant neoplasm of breast(V16.3, Z80.3) Status:Active Mother Name Dates Details Family history of Status:Active Family history of myocardial infarction(V17.3, Z82.49) Status:Active Father Name Dates Details Family history of coronary a rtery disease(V17.3, Z82.49) Status:Active Family history of Status:Active Family history of lung cance r(V16.1, Z80.1) Status:Active Sister Name Dates Details Family history of malignant neoplasm of breast(V16.3, Z80.3) Status:Active Mother Name Dates Details Family history of Status:Active Family history of myocardial infarction(V17.3, Z82.49) Status:Active Father Name Dates Details Family history of Status:Active Family history of coronary a rtery disease(V17.3, Z82.49) Status:Active Family history of lung cance r(V16.1, Z80.1) Status:Active Sister Name Dates Details Family history of malignant neoplasm of breast(V16.3, Z80.3) Status:Active Mother Name Dates Details Family history of Status:Active Family history of myocardial infarction(V17.3, Z82.49) Status:Active Father Name Dates Details Family history of Status:Active Family history of coronary a rtery disease(V17.3, Z82.49) Status:Active Family history of lung cance r(V16.1, Z80.1) Status:Active Sister Name Dates Details Family history of malignant neoplasm of breast(V16.3, Z80.3) Status:Active Mother Name Dates Details Family history of Status:Active Family history of myocardial infarction(V17.3, Z82.49) Status:Active Father Name Dates Details Family history of Status:Active Family history of coronary a rtery disease(V17.3, Z82.49) Status:Active Family history of lung cance r(V16.1, Z80.1) Status:Active Sister Name Dates Details Family history of malignant neoplasm of breast(V16.3, Z80.3) Status:Active Mother Name Dates Details Family history of Status:Active Family history of myocardial infarction(V17.3, Z82.49) Status:Active Father Name Dates Details Family history of coronary a rtery disease(V17.3, Z82.49) Status:Active Family history of Status:Active Family history of lung cance r(V16.1, Z80.1) Status:Active Sister Name Dates Details Family history of malignant neoplasm of breast(V16.3, Z80.3) Status:Active Mother Name Dates Details Family history of Status:Active Family history of myocardial infarction(V17.3, Z82.49) Status:Active Father Name Dates Details Family history of coronary a rtery disease(V17.3, Z82.49) Status:Active Family history of Status:Active Family history of lung cance r(V16.1, Z80.1) Status:Active Sister Name Dates Details Family history of malignant neoplasm of breast(V16.3, Z80.3) Status:Active Mother Name Dates Details Family history of (7 99.9, R99) Status:Active Family history of myocardial infarction(V17.3, Z82.49) Status:Active Father Name Dates Details Family history of (7 99.9, R99) Status:Active Family history of coronary a rtery disease(V17.3, Z82.49) Status:Active Family history of lung cance r(V16.1, Z80.1) Status:Active Sister Name Dates Details Family history of malignant neoplasm of breast(V16.3, Z80.3) Status:Active Mother Name Dates Details Family history of (7 99.9, R99) Status:Active Family history of myocardial infarction(V17.3, Z82.49) Status:Active Father Name Dates Details Family history of (7 99.9, R99) Status:Active Family history of coronary a rtery disease(V17.3, Z82.49) Status:Active Family history of lung cance r(V16.1, Z80.1) Status:Active Sister Name Dates Details Family history of malignant neoplasm of breast(V16.3, Z80.3) Status:Active Mother Name Dates Details Family history of (7 99.9, R99) Status:Active Family history of myocardial infarction(V17.3, Z82.49) Status:Active Father Name Dates Details Family history of (7 99.9, R99) Status:Active Family history of coronary a rtery disease(V17.3, Z82.49) Status:Active Family history of lung cance r(V16.1, Z80.1) Status:Active Sister Name Dates Details Family history of malignant neoplasm of breast(V16.3, Z80.3) Status:Active Mother Name Dates Details Family history of (7 99.9, R99) Status:Active Family history of myocardial infarction(V17.3, Z82.49) Status:Active Father Name Dates Details Family history of (7 99.9, R99) Status:Active Family history of coronary a rtery disease(V17.3, Z82.49) Status:Active Family history of lung cance r(V16.1, Z80.1) Status:Active Sister Name Dates Details Family history of malignant neoplasm of breast(V16.3, Z80.3) Status:Active Mother Name Dates Details Family history of (7 99.9, R99) Status:Active Family history of myocardial infarction(V17.3, Z82.49) Status:Active Father Name Dates Details Family history of (7 99.9, R99) Status:Active Family history of coronary a rtery disease(V17.3, Z82.49) Status:Active Family history of lung cance r(V16.1, Z80.1) Status:Active Sister Name Dates Details Family history of malignant neoplasm of breast(V16.3, Z80.3) Status:Active Mother Name Dates Details Family history of (7 99.9, R99) Status:Active Family history of myocardial infarction(V17.3, Z82.49) Status:Active Father Name Dates Details Family history of (7 99.9, R99) Status:Active Family history of coronary a rtery disease(V17.3, Z82.49) Status:Active Family history of lung cance r(V16.1, Z80.1) Status:Active Sister Name Dates Details Family history of malignant neoplasm of breast(V16.3, Z80.3) Status:Active Unknown Family Member Name Dates Details : Mother, Father Status:Active Family history of myocardial infarction: Mother(V17.3, Z82.49) Status:Active Family history of coronary a rtery disease: Father(V17.3, Z82.49) Status:Active Family history of lung cance r: Father(V16.1, Z80.1) Status:Active Family history of malignant neoplasm of breast: Sister(V16.3, Z80.3) Comments:x2 sisters; Status:Active Unknown Family Member Name Dates Details : Mother, Father Status:Active Family history of myocardial infarction: Mother(V17.3, Z82.49) Status:Active Family history of coronary a rtery disease: Father(V17.3, Z82.49) Status:Active Family history of lung cance r: Father(V16.1, Z80.1) Status:Active Family history of malignant neoplasm of breast: Sister(V16.3, Z80.3) Comments:x2 sisters; Status:Active Unknown Family Member Name Dates Details : Mother, Father Status:Active Family history of myocardial infarction: Mother(V17.3, Z82.49) Status:Active Family history of coronary a rtery disease: Father(V17.3, Z82.49) Status:Active Family history of lung cance r: Father(V16.1, Z80.1) Status:Active Family history of malignant neoplasm of breast: Sister(V16.3, Z80.3) Comments:x2 sisters; Status:Active Unknown Family Member Name Dates Details : Mother, Father Status:Active Family history of myocardial infarction: Mother(V17.3, Z82.49) Status:Active Family history of coronary a rtery disease: Father(V17.3, Z82.49) Status:Active Family history of lung cance r: Father(V16.1, Z80.1) Status:Active Family history of malignant neoplasm of breast: Sister(V16.3, Z80.3) Comments:x2 sisters; Status:Active Unknown Family Member Name Dates Details : Mother, Father Status:Active Family history of myocardial infarction: Mother(V17.3, Z82.49) Status:Active Family history of coronary a rtery disease: Father(V17.3, Z82.49) Status:Active Family history of lung cance r: Father(V16.1, Z80.1) Status:Active Family history of malignant neoplasm of breast: Sister(V16.3, Z80.3) Comments:x2 sisters; Status:Active Unknown Family Member Name Dates Details Family history of myocardial infarction: Mother(V17.3, Z82.49) Status:Active Family history of coronary a rtery disease: Father(V17.3, Z82.49) Status:Active : Mother, Father Comments:mother of M! a t 79. father also at 79 of heart disease.; Status:Active Family history of malignant neoplasm of breast: Mother, Sister(V16.3, Z80.3) Comments:. one sister had br east cancer.; Status:Active Family history of lung cance r: Father(V16.1, Z80.1) Status:Active Unknown Family Member Name Dates Details Family history of myocardial infarction: Mother(V17.3, Z82.49) Status:Active Family history of coronary a rtery disease: Father(V17.3, Z82.49) Status:Active Family history of lung cance r: Father(V16.1, Z80.1) Status:Active : Mother, Father Comments:mother of M! a t 79. father also at 79 of heart disease.; Status:Active Family history of malignant neoplasm of breast: Mother, Sister(V16.3, Z80.3) Comments:. one sister had br east cancer.; Status:Active Unknown Family Member Name Dates Details Family history of myocardial infarction: Mother(V17.3, Z82.49) Status:Active Family history of coronary a rtery disease: Father(V17.3, Z82.49) Status:Active Family history of lung cance r: Father(V16.1, Z80.1) Status:Active : Mother, Father Comments:mother of M! a t 79. father also at 79 of heart disease.; Status:Active Family history of malignant neoplasm of breast: Mother, Sister(V16.3, Z80.3) Comments:. one sister had br east cancer.; Status:Active Unknown Family Member Name Dates Details Family history of myocardial infarction: Mother(V17.3, Z82.49) Status:Active Family history of coronary a rtery disease: Father(V17.3, Z82.49) Status:Active Family history of lung cance r: Father(V16.1, Z80.1) Status:Active : Mother, Father Comments:mother of M! a t 79. father also at 79 of heart disease.; Status:Active Family history of malignant neoplasm of breast: Mother, Sister(V16.3, Z80.3) Comments:. one sister had br east cancer.; Status:Active Unknown Family Member Name Dates Details Family history of myocardial infarction: Mother(V17.3, Z82.49) Status:Active Family history of coronary a rtery disease: Father(V17.3, Z82.49) Status:Active Family history of lung cance r: Father(V16.1, Z80.1) Status:Active : Mother, Father Comments:mother of M! a t 79. father also at 79 of heart disease.; Status:Active Family history of malignant neoplasm of breast: Mother, Sister(V16.3, Z80.3) Comments:. one sister had br east cancer.; Status:Active Unknown Family Member Name Dates Details Family history of myocardial infarction: Mother(V17.3, Z82.49) Status:Active Family history of coronary a rtery disease: Father(V17.3, Z82.49) Status:Active Family history of lung cance r: Father(V16.1, Z80.1) Status:Active : Mother, Father Comments:mother of M! a t 79. father also at 79 of heart disease.; Status:Active Family history of malignant neoplasm of breast: Mother, Sister(V16.3, Z80.3) Comments:. one sister had br east cancer.; Status:Active Unknown Family Member Name Dates Details Family history of myocardial infarction: Mother(V17.3, Z82.49) Status:Active Family history of coronary a rtery disease: Father(V17.3, Z82.49) Status:Active Family history of lung cance r: Father(V16.1, Z80.1) Status:Active : Mother, Father Comments:mother of M! a t 79. father also at 79 of heart disease.; Status:Active Family history of malignant neoplasm of breast: Mother, Sister(V16.3, Z80.3) Comments:. one sister had br east cancer.; Status:Active Unknown Family Member Name Dates Details Family history of myocardial infarction: Mother(V17.3, Z82.49) Status:Active Family history of coronary a rtery disease: Father(V17.3, Z82.49) Status:Active Family history of lung cance r: Father(V16.1, Z80.1) Status:Active : Mother, Father Comments:mother of M! a t 79. father also at 79 of heart disease.; Status:Active Family history of malignant neoplasm of breast: Mother, Sister(V16.3, Z80.3) Comments:. one sister had br east cancer.; Status:Active Unknown Family Member Name Dates Details Family history of myocardial infarction: Mother(V17.3, Z82.49) Status:Active Family history of coronary a rtery disease: Father(V17.3, Z82.49) Status:Active Family history of lung cance r: Father(V16.1, Z80.1) Status:Active : Mother, Father Comments:mother of M! a t 79. father also at 79 of heart disease.; Status:Active Family history of malignant neoplasm of breast: Mother, Sister(V16.3, Z80.3) Comments:. one sister had br east cancer.; Status:Active Unknown Family Member Name Dates Details Family history of myocardial infarction: Mother(V17.3, Z82.49) Status:Active Family history of coronary a rtery disease: Father(V17.3, Z82.49) Status:Active Family history of lung cance r: Father(V16.1, Z80.1) Status:Active : Mother, Father Comments:mother of M! a t 79. father also at 79 of heart disease.; Status:Active Family history of malignant neoplasm of breast: Mother, Sister(V16.3, Z80.3) Comments:. one sister had br east cancer.; Status:Active Unknown Family Member Name Dates Details Family history of myocardial infarction: Mother(V17.3, Z82.49) Status:Active Family history of coronary a rtery disease: Father(V17.3, Z82.49) Status:Active Family history of lung cance r: Father(V16.1, Z80.1) Status:Active : Mother, Father Comments:mother of M! a t 79. father also at 79 of heart disease.; Status:Active Family history of malignant neoplasm of breast: Mother, Sister(V16.3, Z80.3) Comments:. one sister had br east cancer.; Status:Active Unknown Family Member Name Dates Details Family history of myocardial infarction: Mother(V17.3, Z82.49) Status:Active Family history of coronary a rtery disease: Father(V17.3, Z82.49) Status:Active Family history of lung cance r: Father(V16.1, Z80.1) Status:Active : Mother, Father Comments:mother of M! a t 79. father also at 79 of heart disease.; Status:Active Family history of malignant neoplasm of breast: Mother, Sister(V16.3, Z80.3) Comments:. one sister had br east cancer.; Status:Active Unknown Family Member Name Dates Details Family history of myocardial infarction: Mother(V17.3, Z82.49) Status:Active Family history of coronary a rtery disease: Father(V17.3, Z82.49) Status:Active Family history of malignant neoplasm of breast: Mother, Sister(V16.3, Z80.3) Comments:. one sister had br east cancer.; Status:Active : Mother, Father Comments:mother of M! a t 79. father also at 79 of heart disease.; Status:Active Family history of lung cance r: Father(V16.1, Z80.1) Status:Active Unknown Family Member Name Dates Details Family history of myocardial infarction: Mother(V17.3, Z82.49) Status:Active Family history of coronary a rtery disease: Father(V17.3, Z82.49) Status:Active Family history of lung cance r: Father(V16.1, Z80.1) Status:Active : Mother, Father Comments:mother of M! a t 79. father also at 79 of heart disease.; Status:Active Family history of malignant neoplasm of breast: Mother, Sister(V16.3, Z80.3) Comments:. one sister had br east cancer.; Status:Active Unknown Family Member Name Dates Details : Mother, Father Comments:mother of M! a t 79. father also at 79 of heart disease.; Status:Active Family history of malignant neoplasm of breast: Mother, Sister(V16.3, Z80.3) Comments:. one sister had br east cancer.; Status:Active Family history of lung cance r: Father(V16.1, Z80.1) Status:Active Family history of coronary a rtery disease: Father(V17.3, Z82.49) Status:Active Family history of myocardial infarction: Mother(V17.3, Z82.49) Status:Active Unknown Family Member Name Dates Details Family history of myocardial infarction: Mother(V17.3, Z82.49) Status:Active Family history of coronary a rtery disease: Father(V17.3, Z82.49) Status:Active Family history of lung cance r: Father(V16.1, Z80.1) Status:Active : Mother, Father Comments:mother of M! a t 79. father also at 79 of heart disease.; Status:Active Family history of malignant neoplasm of breast: Mother, Sister(V16.3, Z80.3) Comments:. one sister had br east cancer.; Status:Active Unknown Family Member Name Dates Details Family history of myocardial infarction: Mother(V17.3, Z82.49) Status:Active Family history of coronary a rtery disease: Father(V17.3, Z82.49) Status:Active Family history of lung cance r: Father(V16.1, Z80.1) Status:Active : Mother, Father Comments:mother of M! a t 79. father also at 79 of heart disease.; Status:Active Family history of malignant neoplasm of breast: Mother, Sister(V16.3, Z80.3) Comments:. one sister had br east cancer.; Status:Active Unknown Family Member Name Dates Details Family history of lung cance r: Father(V16.1, Z80.1) Status:Active : Mother, Father Comments:mother of M! a t 79. father also at 79 of heart disease.; Status:Active Family history of malignant neoplasm of breast: Mother, Sister(V16.3, Z80.3) Comments:. one sister had br east cancer.; Status:Active Family history of coronary a rtery disease: Father(V17.3, Z82.49) Status:Active Family history of myocardial infarction: Mother(V17.3, Z82.49) Status:Active Unknown Family Member Name Dates Details Family history of myocardial infarction: Mother(V17.3, Z82.49) Status:Active Family history of coronary a rtery disease: Father(V17.3, Z82.49) Status:Active Family history of lung cance r: Father(V16.1, Z80.1) Status:Active : Mother, Father Comments:mother of M! a t 79. father also at 79 of heart disease.; Status:Active Family history of malignant neoplasm of breast: Mother, Sister(V16.3, Z80.3) Comments:. one sister had br east cancer.; Status:Active Unknown Family Member Name Dates Details Family history of myocardial infarction: Mother(V17.3, Z82.49) Status:Active Family history of coronary a rtery disease: Father(V17.3, Z82.49) Status:Active Family history of lung cance r: Father(V16.1, Z80.1) Status:Active : Mother, Father Comments:mother of M! a t 79. father also at 79 of heart disease.; Status:Active Family history of malignant neoplasm of breast: Mother, Sister(V16.3, Z80.3) Comments:. one sister had br east cancer.; Status:Active Unknown Family Member Name Dates Details : Mother, Father Comments:mother of M! a t 79. father also at 79 of heart disease.; Status:Active Family history of lung cance r: Father(V16.1, Z80.1) Status:Active Family history of coronary a rtery disease: Father(V17.3, Z82.49) Status:Active Family history of myocardial infarction: Mother(V17.3, Z82.49) Status:Active Family history of malignant neoplasm of breast: Mother, Sister(V16.3, Z80.3) Comments:. one sister had br east cancer.; Status:Active Unknown Family Member Name Dates Details Family history of myocardial infarction: Mother(V17.3, Z82.49) Status:Active Family history of coronary a rtery disease: Father(V17.3, Z82.49) Status:Active Family history of lung cance r: Father(V16.1, Z80.1) Status:Active : Mother, Father Comments:mother of M! a t 79. father also at 79 of heart disease.; Status:Active Family history of malignant neoplasm of breast: Mother, Sister(V16.3, Z80.3) Comments:. one sister had br east cancer.; Status:Active Unknown Family Member Name Dates Details Family history of myocardial infarction: Mother(V17.3, Z82.49) Status:Active Family history of coronary a rtery disease: Father(V17.3, Z82.49) Status:Active Family history of lung cance r: Father(V16.1, Z80.1) Status:Active : Mother, Father Comments:mother of M! a t 79. father also at 79 of heart disease.; Status:Active Family history of malignant neoplasm of breast: Mother, Sister(V16.3, Z80.3) Comments:. one sister had br east cancer.; Status:Active Unknown Family Member Name Dates Details : Mother, Father Comments:mother of M! a t 79. father also at 79 of heart disease.; Status:Active Family history of lung cance r: Father(V16.1, Z80.1) Status:Active Family history of coronary a rtery disease: Father(V17.3, Z82.49) Status:Active Family history of myocardial infarction: Mother(V17.3, Z82.49) Status:Active Family history of malignant neoplasm of breast: Mother, Sister(V16.3, Z80.3) Comments:. one sister had br east cancer.; Status:Active Unknown Family Member Name Dates Details : Mother, Father Comments:mother of M! a t 79. father also at 79 of heart disease.; Status:Active Family history of lung cance r: Father(V16.1, Z80.1) Status:Active Family history of malignant neoplasm of breast: Mother, Sister(V16.3, Z80.3) Comments:. one sister had br east cancer.; Status:Active Family history of coronary a rtery disease: Father(V17.3, Z82.49) Status:Active Family history of myocardial infarction: Mother(V17.3, Z82.49) Status:Active Unknown Family Member Name Dates Details Family history of myocardial infarction: Mother(V17.3, Z82.49) Status:Active Family history of coronary a rtery disease: Father(V17.3, Z82.49) Status:Active : Mother, Father Comments:mother of M! a t 79. father also at 79 of heart disease.; Status:Active Family history of malignant neoplasm of breast: Mother, Sister(V16.3, Z80.3) Comments:. one sister had br east cancer.; Status:Active Family history of lung cance r: Father(V16.1, Z80.1) Status:Active Unknown Family Member Name Dates Details Family history of myocardial infarction: Mother(V17.3, Z82.49) Status:Active Family history of coronary a rtery disease: Father(V17.3, Z82.49) Status:Active Family history of lung cance r: Father(V16.1, Z80.1) Status:Active : Mother, Father Comments:mother of M! a t 79. father also at 79 of heart disease.; Status:Active Family history of malignant neoplasm of breast: Mother, Sister(V16.3, Z80.3) Comments:. one sister had br east cancer.; Status:Active Unknown Family Member Name Dates Details : Mother, Father Comments:mother of M! a t 79. father also at 79 of heart disease.; Status:Active Family history of malignant neoplasm of breast: Mother, Sister(V16.3, Z80.3) Comments:. one sister had br east cancer.; Status:Active Family history of lung cance r: Father(V16.1, Z80.1) Status:Active Family history of coronary a rtery disease: Father(V17.3, Z82.49) Status:Active Family history of myocardial infarction: Mother(V17.3, Z82.49) Status:Active Unknown Family Member Name Dates Details Family history of myocardial infarction: Mother(V17.3, Z82.49) Status:Active Family history of coronary a rtery disease: Father(V17.3, Z82.49) Status:Active Family history of lung cance r: Father(V16.1, Z80.1) Status:Active : Mother, Father Comments:mother of M! a t 79. father also at 79 of heart disease.; Status:Active Family history of malignant neoplasm of breast: Mother, Sister(V16.3, Z80.3) Comments:. one sister had br east cancer.; Status:Active Unknown Family Member Name Dates Details Family history of myocardial infarction: Mother(V17.3, Z82.49) Status:Active Family history of coronary a rtery disease: Father(V17.3, Z82.49) Status:Active Family history of lung cance r: Father(V16.1, Z80.1) Status:Active : Mother, Father Comments:mother of M! a t 79. father also at 79 of heart disease.; Status:Active Family history of malignant neoplasm of breast: Mother, Sister(V16.3, Z80.3) Comments:. one sister had br east cancer.; Status:Active Unknown Family Member Name Dates Details Family history of myocardial infarction: Mother(V17.3, Z82.49) Status:Active Family history of coronary a rtery disease: Father(V17.3, Z82.49) Status:Active Family history of lung cance r: Father(V16.1, Z80.1) Status:Active : Mother, Father Comments:mother of M! a t 79. father also at 79 of heart disease.; Status:Active Family history of malignant neoplasm of breast: Mother, Sister(V16.3, Z80.3) Comments:. one sister had br east cancer.; Status:Active FH: HTN (hypertension)(V17.49) Status:Active FH: CAD (coronary artery disease)(V17.3) Status: Active Unknown Family Member Name Dates Details Family history of myocardial infarction: Mother(V17.3, Z82.49) Status:Active Family history of coronary a rtery disease: Father(V17.3, Z82.49) Status:Active Family history of lung cance r: Father(V16.1, Z80.1) Status:Active : Mother, Father Comments:mother of M! a t 79. father also at 79 of heart disease.; Status:Active Family history of malignant neoplasm of breast: Mother, Sister(V16.3, Z80.3) Comments:. one sister had br east cancer.; Status:Active Unknown Family Member Name Dates Details Family history of myocardial infarction: Mother(V17.3, Z82.49) Status:Active Family history of coronary a rtery disease: Father(V17.3, Z82.49) Status:Active Family history of lung cance r: Father(V16.1, Z80.1) Status:Active : Mother, Father Comments:mother of M! a t 79. father also at 79 of heart disease.; Status:Active Family history of malignant neoplasm of breast: Mother, Sister(V16.3, Z80.3) Comments:. one sister had br east cancer.; Status:Active Unknown Family Member Name Dates Details Family history of myocardial infarction: Mother(V17.3, Z82.49) Status:Active Family history of coronary a rtery disease: Father(V17.3, Z82.49) Status:Active Family history of lung cance r: Father(V16.1, Z80.1) Status:Active : Mother, Father Comments:mother of M! a t 79. father also at 79 of heart disease.; Status:Active Family history of malignant neoplasm of breast: Mother, Sister(V16.3, Z80.3) Comments:. one sister had br east cancer.; Status:Active Unknown Family Member Name Dates Details Family history of myocardial infarction: Mother(V17.3, Z82.49) Status:Active Family history of coronary a rtery disease: Father(V17.3, Z82.49) Status:Active Family history of lung cance r: Father(V16.1, Z80.1) Status:Active : Mother, Father Comments:mother of M! a t 79. father also at 79 of heart disease.; Status:Active Family history of malignant neoplasm of breast: Mother, Sister(V16.3, Z80.3) Comments:. one sister had br east cancer.; Status:Active Unknown Family Member Name Dates Details Family history of malignant neoplasm of breast: Mother, Sister(V16.3, Z80.3) Comments:. one sister had br east cancer.; Status:Active : Mother, Father Comments:mother of M! a t 79. father also at 79 of heart disease.; Status:Active Family history of lung cance r: Father(V16.1, Z80.1) Status:Active Family history of coronary a rtery disease: Father(V17.3, Z82.49) Status:Active Family history of myocardial infarction: Mother(V17.3, Z82.49) Status:Active Unknown Family Member Name Dates Details Family history of myocardial infarction: Mother(V17.3, Z82.49) Status:Active Family history of coronary a rtery disease: Father(V17.3, Z82.49) Status:Active Family history of lung cance r: Father(V16.1, Z80.1) Status:Active : Mother, Father Comments:mother of M! a t 79. father also at 79 of heart disease.; Status:Active Family history of malignant neoplasm of breast: Mother, Sister(V16.3, Z80.3) Comments:. one sister had br east cancer.; Status:Active Unknown Family Member Name Dates Details Family history of myocardial infarction: Mother(V17.3, Z82.49) Status:Active Family history of coronary a rtery disease: Father(V17.3, Z82.49) Status:Active Family history of lung cance r: Father(V16.1, Z80.1) Status:Active : Mother, Father Comments:mother of M! a t 79. father also at 79 of heart disease.; Status:Active Family history of malignant neoplasm of breast: Mother, Sister(V16.3, Z80.3) Comments:. one sister had br east cancer.; Status:Active Unknown Family Member Name Dates Details Family history of myocardial infarction: Mother(V17.3, Z82.49) Status:Active Family history of coronary a rtery disease: Father(V17.3, Z82.49) Status:Active Family history of lung cance r: Father(V16.1, Z80.1) Status:Active : Mother, Father Comments:mother of M! a t 79. father also at 79 of heart disease.; Status:Active Family history of malignant neoplasm of breast: Mother, Sister(V16.3, Z80.3) Comments:. one sister had br east cancer.; Status:Active Unknown Family Member Name Dates Details Family history of myocardial infarction: Mother(V17.3, Z82.49) Status:Active Family history of coronary a rtery disease: Father(V17.3, Z82.49) Status:Active Family history of lung cance r: Father(V16.1, Z80.1) Status:Active : Mother, Father Comments:mother of M! a t 79. father also at 79 of heart disease.; Status:Active Family history of malignant neoplasm of breast: Mother, Sister(V16.3, Z80.3) Comments:. one sister had br east cancer.; Status:Active Unknown Family Member Name Dates Details Family history of lung cance r: Father(V16.1, Z80.1) Status:Active Family history of malignant neoplasm of breast: Mother, Sister(V16.3, Z80.3) Comments:. one sister had br east cancer.; Status:Active : Mother, Father Comments:mother of M! a t 79. father also at 79 of heart disease.; Status:Active Family history of coronary a rtery disease: Father(V17.3, Z82.49) Status:Active Family history of myocardial infarction: Mother(V17.3, Z82.49) Status:Active Unknown Family Member Name Dates Details Family history of lung cance r: Father(V16.1, Z80.1) Status:Active : Mother, Father Comments:mother of M! a t 79. father also at 79 of heart disease.; Status:Active Family history of malignant neoplasm of breast: Mother, Sister(V16.3, Z80.3) Comments:. one sister had br east cancer.; Status:Active Family history of coronary a rtery disease: Father(V17.3, Z82.49) Status:Active Family history of myocardial infarction: Mother(V17.3, Z82.49) Status:Active Unknown Family Member Name Dates Details Family history of myocardial infarction: Mother(V17.3, Z82.49) Status:Active Family history of coronary a rtery disease: Father(V17.3, Z82.49) Status:Active Family history of lung cance r: Father(V16.1, Z80.1) Status:Active : Mother, Father Comments:mother of M! a t 79. father also at 79 of heart disease.; Status:Active Family history of malignant neoplasm of breast: Mother, Sister(V16.3, Z80.3) Comments:. one sister had br east cancer.; Status:Active Unknown Family Member Name Dates Details Family history of lung cance r: Father(V16.1, Z80.1) Status:Active : Mother, Father Comments:mother of M! a t 79. father also at 79 of heart disease.; Status:Active Family history of malignant neoplasm of breast: Mother, Sister(V16.3, Z80.3) Comments:. one sister had br east cancer.; Status:Active Family history of coronary a rtery disease: Father(V17.3, Z82.49) Status:Active Family history of myocardial infarction: Mother(V17.3, Z82.49) Status:Active Unknown Family Member Name Dates Details Family history of myocardial infarction: Mother(V17.3, Z82.49) Status:Active Family history of coronary a rtery disease: Father(V17.3, Z82.49) Status:Active Family history of lung cance r: Father(V16.1, Z80.1) Status:Active : Mother, Father Comments:mother of M! a t 79. father also at 79 of heart disease.; Status:Active Family history of malignant neoplasm of breast: Mother, Sister(V16.3, Z80.3) Comments:. one sister had br east cancer.; Status:Active Unknown Family Member Name Dates Details Family history of myocardial infarction: Mother(V17.3, Z82.49) Status:Active Family history of coronary a rtery disease: Father(V17.3, Z82.49) Status:Active Family history of lung cance r: Father(V16.1, Z80.1) Status:Active : Mother, Father Comments:mother of M! a t 79. father also at 79 of heart disease.; Status:Active Family history of malignant neoplasm of breast: Mother, Sister(V16.3, Z80.3) Comments:. one sister had br east cancer.; Status:Active Unknown Family Member Name Dates Details Family history of myocardial infarction: Mother(V17.3, Z82.49) Status:Active Family history of coronary a rtery disease: Father(V17.3, Z82.49) Status:Active Family history of lung cance r: Father(V16.1, Z80.1) Status:Active : Mother, Father Comments:mother of M! a t 79. father also at 79 of heart disease.; Status:Active Family history of malignant neoplasm of breast: Mother, Sister(V16.3, Z80.3) Comments:. one sister had br east cancer.; Status:Active Unknown Family Member Name Dates Details : Mother, Father Comments:mother of M! a t 79. father also at 79 of heart disease.; Status:Active Family history of lung cance r: Father(V16.1, Z80.1) Status:Active Family history of malignant neoplasm of breast: Mother, Sister(V16.3, Z80.3) Comments:. one sister had br east cancer.; Status:Active Family history of coronary a rtery disease: Father(V17.3, Z82.49) Status:Active Family history of myocardial infarction: Mother(V17.3, Z82.49) Status:Active Unknown Family Member Name Dates Details Family history of myocardial infarction: Mother(V17.3, Z82.49) Status:Active Family history of coronary a rtery disease: Father(V17.3, Z82.49) Status:Active Family history of lung cance r: Father(V16.1, Z80.1) Status:Active : Mother, Father Comments:mother of M! a t 79. father also at 79 of heart disease.; Status:Active Family history of malignant neoplasm of breast: Mother, Sister(V16.3, Z80.3) Comments:. one sister had br east cancer.; Status:Active Unknown Family Member Name Dates Details Family history of myocardial infarction: Mother(V17.3, Z82.49) Status:Active Family history of coronary a rtery disease: Father(V17.3, Z82.49) Status:Active Family history of lung cance r: Father(V16.1, Z80.1) Status:Active : Mother, Father Comments:mother of M! a t 79. father also at 79 of heart disease.; Status:Active Family history of malignant neoplasm of breast: Mother, Sister(V16.3, Z80.3) Comments:. one sister had br east cancer.; Status:Active Unknown Family Member Name Dates Details Family history of malignant neoplasm of breast: Mother, Sister(V16.3, Z80.3) Comments:. one sister had br east cancer.; Status:Active : Mother, Father Comments:mother of M! a t 79. father also at 79 of heart disease.; Status:Active Family history of lung cance r: Father(V16.1, Z80.1) Status:Active Family history of coronary a rtery disease: Father(V17.3, Z82.49) Status:Active Family history of myocardial infarction: Mother(V17.3, Z82.49) Status:Active Unknown Family Member Name Dates Details Family history of lung cance r: Father(V16.1, Z80.1) Status:Active : Mother, Father Comments:mother of M! a t 79. father also at 79 of heart disease.; Status:Active Family history of malignant neoplasm of breast: Mother, Sister(V16.3, Z80.3) Comments:. one sister had br east cancer.; Status:Active Family history of coronary a rtery disease: Father(V17.3, Z82.49) Status:Active Family history of myocardial infarction: Mother(V17.3, Z82.49) Status:Active Unknown Family Member Name Dates Details Family history of myocardial infarction: Mother(V17.3, Z82.49) Status:Active Family history of coronary a rtery disease: Father(V17.3, Z82.49) Status:Active Family history of lung cance r: Father(V16.1, Z80.1) Status:Active : Mother, Father Comments:mother of M! a t 79. father also at 79 of heart disease.; Status:Active Family history of malignant neoplasm of breast: Mother, Sister(V16.3, Z80.3) Comments:. one sister had br east cancer.; Status:Active Unknown Family Member Name Dates Details Family history of myocardial infarction: Mother(V17.3, Z82.49) Status:Active Family history of coronary a rtery disease: Father(V17.3, Z82.49) Status:Active Family history of lung cance r: Father(V16.1, Z80.1) Status:Active : Mother, Father Comments:mother of M! a t 79. father also at 79 of heart disease.; Status:Active Family history of malignant neoplasm of breast: Mother, Sister(V16.3, Z80.3) Comments:. one sister had br east cancer.; Status:Active Unknown Family Member Name Dates Details Family history of myocardial infarction: Mother(V17.3, Z82.49) Status:Active Family history of coronary a rtery disease: Father(V17.3, Z82.49) Status:Active Family history of lung cance r: Father(V16.1, Z80.1) Status:Active : Mother, Father Comments:mother of M! a t 79. father also at 79 of heart disease.; Status:Active Family history of malignant neoplasm of breast: Mother, Sister(V16.3, Z80.3) Comments:. one sister had br east cancer.; Status:Active Unknown Family Member Name Dates Details Family history of myocardial infarction: Mother(V17.3, Z82.49) Status:Active Family history of coronary a rtery disease: Father(V17.3, Z82.49) Status:Active Family history of lung cance r: Father(V16.1, Z80.1) Status:Active : Mother, Father Comments:mother of M! a t 79. father also at 79 of heart disease.; Status:Active Family history of malignant neoplasm of breast: Mother, Sister(V16.3, Z80.3) Comments:. one sister had br east cancer.; Status:Active Unknown Family Member Name Dates Details Family history of myocardial infarction: Mother(V17.3, Z82.49) Status:Active Family history of coronary a rtery disease: Father(V17.3, Z82.49) Status:Active Family history of lung cance r: Father(V16.1, Z80.1) Status:Active : Mother, Father Comments:mother of M! a t 79. father also at 79 of heart disease.; Status:Active Family history of malignant neoplasm of breast: Mother, Sister(V16.3, Z80.3) Comments:. one sister had br east cancer.; Status:Active Unknown Family Member Name Dates Details Family history of myocardial infarction: Mother(V17.3, Z82.49) Status:Active Family history of coronary a rtery disease: Father(V17.3, Z82.49) Status:Active Family history of lung cance r: Father(V16.1, Z80.1) Status:Active : Mother, Father Comments:mother of M! a t 79. father also at 79 of heart disease.; Status:Active Family history of malignant neoplasm of breast: Mother, Sister(V16.3, Z80.3) Comments:. one sister had br east cancer.; Status:Active Unknown Family Member Name Dates Details Family history of myocardial infarction: Mother(V17.3, Z82.49) Status:Active Family history of coronary a rtery disease: Father(V17.3, Z82.49) Status:Active Family history of lung cance r: Father(V16.1, Z80.1) Status:Active : Mother, Father Comments:mother of M! a t 79. father also at 79 of heart disease.; Status:Active Family history of malignant neoplasm of breast: Mother, Sister(V16.3, Z80.3) Comments:. one sister had br east cancer.; Status:Active Unknown Family Member Name Dates Details Family history of myocardial infarction: Mother(V17.3, Z82.49) Status:Active Family history of coronary a rtery disease: Father(V17.3, Z82.49) Status:Active Family history of lung cance r: Father(V16.1, Z80.1) Status:Active : Mother, Father Comments:mother of M! a t 79. father also at 79 of heart disease.; Status:Active Family history of malignant neoplasm of breast: Mother, Sister(V16.3, Z80.3) Comments:. one sister had br east cancer.; Status:Active Unknown Family Member Name Dates Details Family history of lung cance r: Father(V16.1, Z80.1) Status:Active : Mother, Father Comments:mother of M! a t 79. father also at 79 of heart disease.; Status:Active Family history of malignant neoplasm of breast: Mother, Sister(V16.3, Z80.3) Comments:. one sister had br east cancer.; Status:Active Family history of coronary a rtery disease: Father(V17.3, Z82.49) Status:Active Family history of myocardial infarction: Mother(V17.3, Z82.49) Status:Active Unknown Family Member Name Dates Details Family history of myocardial infarction: Mother(V17.3, Z82.49) Status:Active Family history of coronary a rtery disease: Father(V17.3, Z82.49) Status:Active Family history of lung cance r: Father(V16.1, Z80.1) Status:Active : Mother, Father Comments:mother of M! a t 79. father also at 79 of heart disease.; Status:Active Family history of malignant neoplasm of breast: Mother, Sister(V16.3, Z80.3) Comments:. one sister had br east cancer.; Status:Active Unknown Family Member Name Dates Details Family history of lung cance r: Father(V16.1, Z80.1) Status:Active : Mother, Father Comments:mother of M! a t 79. father also at 79 of heart disease.; Status:Active Family history of malignant neoplasm of breast: Mother, Sister(V16.3, Z80.3) Comments:. one sister had br east cancer.; Status:Active Family history of coronary a rtery disease: Father(V17.3, Z82.49) Status:Active Family history of myocardial infarction: Mother(V17.3, Z82.49) Status:Active Unknown Family Member Name Dates Details Family history of myocardial infarction: Mother(V17.3, Z82.49) Status:Active Family history of coronary a rtery disease: Father(V17.3, Z82.49) Status:Active Family history of lung cance r: Father(V16.1, Z80.1) Status:Active : Mother, Father Comments:mother of M! a t 79. father also at 79 of heart disease.; Status:Active Family history of malignant neoplasm of breast: Mother, Sister(V16.3, Z80.3) Comments:. one sister had br east cancer.; Status:Active Unknown Family Member Name Dates Details Family history of myocardial infarction: Mother(V17.3, Z82.49) Status:Active Family history of coronary a rtery disease: Father(V17.3, Z82.49) Status:Active Family history of lung cance r: Father(V16.1, Z80.1) Status:Active : Mother, Father Comments:mother of M! a t 79. father also at 79 of heart disease.; Status:Active Family history of malignant neoplasm of breast: Mother, Sister(V16.3, Z80.3) Comments:. one sister had br east cancer.; Status:Active Unknown Family Member Name Dates Details Family history of myocardial infarction: Mother(V17.3, Z82.49) Status:Active Family history of coronary a rtery disease: Father(V17.3, Z82.49) Status:Active Family history of lung cance r: Father(V16.1, Z80.1) Status:Active : Mother, Father Comments:mother of M! a t 79. father also at 79 of heart disease.; Status:Active Family history of malignant neoplasm of breast: Mother, Sister(V16.3, Z80.3) Comments:. one sister had br east cancer.; Status:Active Unknown Family Member Name Dates Details Family history of myocardial infarction: Mother(V17.3, Z82.49) Status:Active Family history of coronary a rtery disease: Father(V17.3, Z82.49) Status:Active Family history of lung cance r: Father(V16.1, Z80.1) Status:Active : Mother, Father Comments:mother of M! a t 79. father also at 79 of heart disease.; Status:Active Family history of malignant neoplasm of breast: Mother, Sister(V16.3, Z80.3) Comments:. one sister had br east cancer.; Status:Active Unknown Family Member Name Dates Details Family history of myocardial infarction: Mother(V17.3, Z82.49) Status:Active Family history of coronary a rtery disease: Father(V17.3, Z82.49) Status:Active Family history of lung cance r: Father(V16.1, Z80.1) Status:Active : Mother, Father Comments:mother of M! a t 79. father also at 79 of heart disease.; Status:Active Family history of malignant neoplasm of breast: Mother, Sister(V16.3, Z80.3) Comments:. one sister had br east cancer.; Status:Active Relationship Condition Age at Onset Recorded Date/T jennifer mother Malignant neoplasm of breast 57 sister Malignant neoplasm of breast Unknown Advance Directives No Advanced Directives Records FoundLatest Code Status on File Code Status Date Activated Date Inactivated Comments Full Code 04/24/2023 4:31 AM Question Answer Comments Plan of Care: Code Status Discussion Completed Decision Maker: Patient Latest Code Status on File Code Status Date Activated Date Inactivated Comments Full Code 04/24/2023 4:31 AM Question Answer Comments Plan of Care: Code Status Discussion Completed Decision Maker: Patient Date Activated Date Inactivated Comments 04/24/2023 4:31 AM Question Answer Comments Plan of Care: Code Status Discussion Completed Decision Maker: Patient Date Activated Date Inactivated Comments 04/24/2023 4:31 AM Question Answer Comments Plan of Care: Code Status Discussion Completed Decision Maker: Patient Advance Directive Response Recorded Date/ Time Living Will No July 15, 2024 1:26pm Power of Shank Skinner No July 15 1:26pm Chief Complaint * Pt is here to establish new PCP * recent urgent care fvist for sinus infection and asthma * CARIN: Katharine Scales NP * No Falls, No Smoking: * refill needed for Duoneb and tubing * [facility] she uses for her meds * QIS: no gaps * Covid vaccine: current * KB Ear ache. AC* Pt is here to establish new PCP * recent urgent care fvist for sinus infection and asthma * CARIN: Katharine Scales NP * No Falls, No Smoking: * refill needed for Duoneb and tubing * [facility] uses for her meds * QIS: no gaps * Covid vaccine: current * KB Office visit for wheezing. AC* cough, congestion. * BN The patient presents to the office today for a routine follow up exam . POV; Left CEA 07/30/21.* Pau is here for her 6 month follow up * had a carotid endarterectomy on 07-30 * pt is here for 3 mo re * KB * pt is here for 3 mo re * KB Follow up visit for hypertension management. Pt requests regular flu shot. Mj patient presents to the office today for a routine follow up exam . 6 month f/u; Carotid disease. Patient had Left CEA done 07/30/21. Carotid u/s done 02/01/22.* POSTOP CHECK RT MIDDLE A-1 LINN RELEASE * DOS 03-01-22 Wellness exam. ACFollow up appointment. ACThe patient presents to the office today for a routine follow up exam . 6mth f/u carotid. 08/08/22.The patient presents to the office today for a routine follow up exam . f/u bilateral discolorationlegs and feet. pt stated that she has no pain, swelling and or itching in her legs or feet.The patient presents to the office today for a routine follow up exam . f/u bilateral discolorationlegs and feet. pt stated that she has no pain, swelling and or itching in her legs or feet. Reason for Referral Specialty Diagnoses / Procedures Referred By Nikki pandey Referred To Contact Cardiology Diagnoses Cardiac pacemaker in situ CHB (complete heart block) (CMS/HCC) Procedures Cardiac device check - Remote alert Timothy Palacio DO [address], [address] [place] [address] [facility] [id number] Cr Nonv1 [address] [facility] [address] [place] [address] Referral ID Status Reason Start Date Expiration Date Visits Requested Visits Authorized [id number] Authorized Perform Procedure 3 03/20/2024 1 1 Specialty Diagnoses / Procedures Referred By Nikki pandey Referred To Contact Cardiology Diagnoses Dyspnea on exertion Procedures Transthoracic echo (TTE) complete CA ECHO TRANSTHORC R-T 2D W/WO M-MODE REC F-UP/LMTD CA DOP ECHOCARD COLOR FLOW VELOCITY MAPPING CA DOP ECHOCARD PULSE WAVE W/SPECTRAL F-UP/LMTD STD Timothy Palacio DO [address], [address] [place] [address] Referral ID Status Reason Start Date Expiration Date Visits Requested Visits Authorized [id number] Pending Review Perform Procedure 3 03/21/2024 1 1 Specialty Diagnoses / Procedures Referred By Contac t Referred To Contact Cardiology Diagnoses Sinoatrial node dysfunction (CMS/HCC) Procedures Cardiac device check - In Clinic [facility] Timothy Perez, DO [address] [facility] [address], [address] [place] [address] Referral ID Status Reason Start Date Expiration Date Visits Requested Visits Authorized [id number] Pending Review Perform Procedure 3 04/18/2024 1 1 Specialty Diagnoses / Procedures Referred By Contac t Referred To Contact Radiology Diagnoses Visit for screening mammogram Procedures BI mammo bilateral screening tomosynthesis Ronit Doan, DO [address] [facility], [address] [place] [address] Referral ID Status Reason Start Date Expiration Date Visits Requested Visits Authorized [id number] Authorized Perform Procedure 06/07/2023 06/06/2024 1 1 Specialty Diagnoses / Procedures Referred By Contac t Referred To Contact [facility] Diagnoses Cardiac pacemaker in situ Shortness of breath Acute exacerbation of chronic low back pain Chronic anticoagulation Spinal stenosis of lumbar region with neurogenic claudication Procedures CONSULT TO PHYSICAL THERAPY PHYSICAL THERAPY EVALUATION HIGH COMPLEX 45 MINS Héctor Fairchild MD [address] [place] [address] [facility] [address] [place] [address] Referral ID Status Reason Start Date Expiration Date Visits Requested Visits Authorized [id number] Authorized PCP Requested Referral Auto-Generate d Referral 06/13/2023 06/12/2024 99 99 Specialty Diagnoses / Procedures Referred By Contac t Referred To Contact MR IMAGING Diagnoses Spinal stenosis of lumbar region with neurogenic claudication Procedures MRI LUMBAR SPINE WO IVCON MRI SPINAL CANAL LUMBAR W/O CONTRAST MATERIAL Héctor Fairchild MD [address] [place] [address] [place] [address] Referral ID Status Reason Start Date Expiration Date Visits Requested Visits Authorized [id number] Authorized Auto-Generat ed Referral 06/13/2023 07/12/2024 1 1 Specialty Diagnoses / Procedures Referred By Contac t Referred To Contact [facility] Diagnoses CAD, multiple vessel Spinal stenosis, lumbar region with neurogenic claudication Procedures CONSULT TO PHYSICAL THERAPY PHYSICAL THERAPY EVALUATION HIGH COMPLEX 45 MINS Héctor Fairchild MD [address] [place] [address] [facility] [address] [place] [address] Referral ID Status Reason Start Date Expiration Date Visits Requested Visits Authorized [id number] Authorized PCP Requested Referral Auto-Generate d Referral 08/08/2023 08/07/2024 99 99 Specialty Diagnoses / Procedures Referred By Contac t Referred To Contact Cardiology Diagnoses Atrioventricular block, complete (CMS/HCC) Presence of cardiac pacemaker Procedures Cardiac device check - Remote alert Timothy Palacio DO [address] [place] [address] Par [id number] Cr Nonv1 [address] [place] [address] Referral ID Status Reason Start Date Expiration Date Visits Requested Visits Authorized [id number] Authorized Perform Procedure 08/14/2023 08/13/2024 1 1 Specialty Diagnoses / Procedures Referred By Contac t Referred To Contact Cardiology Diagnoses Complete atrioventricular block (CMS/HCC) Presence of cardiac pacemaker Procedures Cardiac device check - In Clinic Timothy Palacio DO [address], [address] [place] [address] Par [id number] Cr Nonv1 [address] [place] [address] Referral ID Status Reason Start Date Expiration Date Visits Requested Visits Authorized [id number] Authorized Perform Procedure 08/14/2023 08/13/2024 1 1 Specialty Diagnoses / Procedures Referred By Contac t Referred To Contact Cardiology Diagnoses Carotid stenosis Carotid stenosis, bilateral Procedures Vascular US carotid artery duplex bilateral Jaylon Kiser, DO [address] [place] [address] Par [id number] Cr Nonv1 [address] [facility] [address] [place] [address] Referral ID Status Reason Start Date Expiration Date Visits Requested Visits Authorized [id number] Authorized Perform Procedure 06/14/2023 06/13/2024 1 1 Specialty Diagnoses / Procedures Referred By Contac t Referred To Contact Cardiology Diagnoses Carotid stenosis Carotid stenosis, bilateral Procedures Vascular US carotid artery duplex bilateral Jaylon Kiser, DO [address] [place] [address] Referral ID Status Reason Start Date Expiration Date Visits Requested Visits Authorized [id number] Pending Review Perform Procedure 08/24/2023 08/23/2024 1 1 Specialty Diagnoses / Procedures Referred By Contac t Referred To Contact Cardiology Diagnoses Paroxysmal atrial fibrillation (Multi) Complete atrioventricular block (Multi) Presence of cardiac pacemaker Procedures Cardiac Device Check - Remote Timothy Palacio, DO [address], [address] [place] [address] Par [id number] Cr Nonv1 [address] [facility] [address] [place] [address] Referral ID Status Reason Start Date Expiration Date Visits Requested Visits Authorized [id number] Authorized Perform Procedure 10/23/2023 10/22/2024 30 30 Specialty Diagnoses / Procedures Referred By Contac t Referred To Contact Cardiology Diagnoses Sinoatrial node dysfunction (Multi) Presence of cardiac pacemaker Procedures Cardiac Device Check - Remote Timothy Palacio DO [address], [address] [place] [address] Par [id number] Cr Nonv[address] [facility] [employer] [facility] [address] [place] [address] Referral ID Status Reason Start Date Expiration Date Visits Requested Visits Authorized [id number] Authorized Perform Procedure 3 04/19/2024 1 1 Chief Complaint and Reason for Visit Chief Complaint Admit Date BIRADS 4- CONSULT ONLY July 11, 2024 9 :01am Breast, Lumpectomy July 17, 2024 9:4 6am Breast, Lumpectomy July 17, 2024 11: 04am Reason for Visit Admit Date Abnormal ultrasound of breast July 11, 2024 9:01am Abnormal ultrasound of breast July 9:46am Additional Source Comments INFORMATION SOURCE (unrecogn ized section and content) DATE CREATED AUTHOR 12/07/[address] [facility] DATE CREATED AUTHOR AUTHOR'S ORGANIZ ATION 05/31/2020 [employer] DATE CREATED AUTHOR AUTHOR'S ORGANIZ ATION 11/12/2022 [facility] DATE CREATED AUTHOR AUTHOR'S ORGANIZ ATION 01/20/2023 [facility] DATE CREATED AUTHOR AUTHOR'S ORGANIZ ATION 01/20/2023 [employer] DATE CREATED AUTHOR AUTHOR'S ORGANIZ ATION 04/25/2023 [facility] DATE CREATED AUTHOR AUTHOR'S ORGANIZ ATION 01/06/2024 [facility] DATE CREATED AUTHOR AUTHOR'S ORGANIZ ATION 08/03/2024 [facility] DATE CREATED AUTHOR AUTHOR'S ORGANIZ ATION 08/25/2024 [facility] DATE CREATED AUTHOR AUTHOR'S ORGANIZ ATION 08/26/2024 [facility] DATE CREATED AUTHOR AUTHOR'S ORGANIZ ATION 12/08/2024 [facility] DATE CREATED AUTHOR AUTHOR'S ORGANIZ ATION 01/22/2025 [facility] DATE CREATED AUTHOR AUTHOR'S ORGANIZ ATION 01/23/2025 [facility] DATE CREATED AUTHOR AUTHOR'S ORGANIZ ATION 02/21/2025 [facility] DATE CREATED AUTHOR AUTHOR'S ORGANIZ ATION 03/05/2025 [facility] <item> Privacy Markings (unrecogniz ed section and content) Section Author: Connie Barnes PROHIBITION ON REDISCLOSURE OF CONFIDENTIAL INFORMATION This notice accompanies a disclosure of information concerning a client made to you with the consent of such client. Reason for Visit (unrecogniz ed section and content) Reason Comments Hypertension Reason Comments Follow-up 3 month follow up vi sit Reason Comments Follow-up Specialty Diagnoses / Procedures Referred By Contac t Referred To Contact Cardiology Diagnoses Cardiac pacemaker in situ CHB (complete heart block) ([facility]) Procedures Cardiac device check - Remote alert Timothy Palacio DO [address], [address] [place] [address] Par [id number] Cr Nonv1 [address] [facility] [address] [place] [address] Referral ID Status Reason Start Date Expiration Date Visits Requested Visits Authorized [id number] Authorized Perform Procedure 3 03/20/2024 1 1 Specialty Diagnoses / Procedures Referred By Contac t Referred To Contact Cardiology Diagnoses Dyspnea on exertion Procedures Transthoracic echo (TTE) complete CA ECHO TRANSTHORC R-T 2D W/WO M-MODE REC F-UP/LMTD CA DOP ECHOCARD COLOR FLOW VELOCITY MAPPING CA DOP ECHOCARD PULSE WAVE W/SPECTRAL F-UP/LMTD STD Timothy Palacio DO [address], [address] [place] [address] Referral ID Status Reason Start Date Expiration Date Visits Requested Visits Authorized [id number] Pending Review Perform Procedure 3 03/21/2024 1 1 Specialty Diagnoses / Procedures Referred By Contac t Referred To Contact Cardiology Diagnoses Sinoatrial node dysfunction (CMS/HCC) Procedures Cardiac device check - In Clinic Timothy Palacio DO [address], [address] [address] Referral ID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 criminally investigate or prosecute any alcohol or drug abuse patient.[facility] Scheduled Active and Recently Administ ered Medications (unrecognized section and content) Medication Order 04/22/2023 04/23/2023 04/24/2023 budesonide (Pulmicort) 0.5 mg/2 mL nebulizer solution 0.5 mg 0.5 mg, nebulization, 2 times daily RT, First dose on Mon04/24/23 at 0700, Rinse mouth with water after use to reduce aftertaste and incidence of candidiasis. Do not swallow. 0734 (Given - Provid er: Farideh Hobson, MARIA ESTHER)1900 (Due) dapagliflozin propanediol (Farxiga) tablet 10 mg 10 mg, oral, Daily, First dose on Mon04/24/23 at 0900 0900 (Not Given - Pr ovider: Suzie Gordon RN - Reason: Patient/family refused) dilTIAZem CD (Cardizem CD) 24 hr capsule 240 mg 240 mg, oral, Every 12 hours, First dose on Mon04/24/23 at 0515, Do not crush, chew, or split., Indications: paroxysmal supraventricular tachycardia, ventricular rate control in atrial fibrillation, pt is waiting for mail order to arrive. 0525 (Given - Provid er: Juan Barboza RN)1715 (Due) formoterol (Perforomist) 20 mcg/2 mL nebulizer solution 20 mcg 20 mcg, nebulization, 2 times daily RT, First dose on Mon04/24/23 at 0700 0734 (Given - Provid er: Farideh Hobson, MARIA ESTHER)1900 (Due) furosemide (Lasix) tablet 40 mg 40 mg, oral, Daily, First dose on Mon04/24/23 at 0900 0849 (Given - Provid er: Suzie Gordon RN) ipratropium-albuteroL (Duo-Neb) 0.5-2.5 mg/3 mL nebulizer solution 3 mL (CANCELED) 3 mL, nebulization, Every 6 hours RT, First dose on Mon04/24/23 at 0700, Indications: chronic obstructive pulmonary disease with bronchospasms 0734 (Given - Provid er: Farideh Hobson, MARIA ESTHER) lactobacillus acidophilus capsule 1 capsule 1 capsule, oral, Daily, First dose on Mon04/24/23 at 0900 0849 (Given - Provid er: Suzie Gordon RN) lisinopril tablet 10 mg 10 mg, oral, Daily, First dose on Mon04/24/23 at 0900 1304 (Given - Provid er: Suzie Gordon RN) loratadine (Claritin) tablet 10 mg 10 mg, oral, Daily, First dose on Mon04/24/23 at 0900 0849 (Given - Provid er: Suzie Gordon RN) magnesium oxide (Mag-Ox) tablet 400 mg 400 mg, oral, Daily, First dose on Mon04/24/23 at 0900 0849 (Given - Provid er: Suzie Gordon RN) methocarbamol (Robaxin) tablet 750 mg 750 mg, oral, Every 8 hours scheduled, First dose on Mon04/24/23 at 0600 0524 (Given - Provid er: Juan Barboza RN)1304 (Given - Provider: Suzie Gordon RN)2200 (Due) pantoprazole (ProtoNix) EC tablet 20 mg 20 mg, oral, Daily before breakfast, First dose on Mon04/24/23 at 0700, Do not crush, chew, or split. 0619 (Given - Provid er: Juan Barboza RN) pravastatin (Pravachol) tablet 40 mg 40 mg, oral, Daily, First dose on Mon04/24/23 at 0900 1304 (Given - Provid er: Suzie Gordon RN)2000 (Due - Provider: Suzie Gordon RN) tiotropium (Spiriva Respimat) 2.5 mcg/actuation inhaler 2 puff(Linked Group 1) 2 puff (2 Inhalation), inhalation, Daily RT, First dose on Mon04/24/23 at 0700, Label inhaler with 3 month expiration date after inserting canister. 0733 (Given - Provid er: Farideh Hobson, [employer]) warfarin (Coumadin) tablet 1.25 mg 1.25 mg, oral, User specified (Once per day on Mon), First dose (after last modification) on Mon04/25/23 at 1800 warfarin (Coumadin) tablet 2.5 mg 2.5 mg, oral, User specified (Once per day on Sun Mon), First dose (after last modification) on Mon04/24/23 at 1800 1800 (Due) PRN Medication Order 04/22/2023 04/23/2023 04/24/2023 acetaminophen (Tylenol) oral liquid 650 mg(Linked Group 2) 650 mg, oral, Every 4 hours PRN, pain mild (1-3), first line, Starting on Mon04/24/23 at 0429, Give oral liquid per feeding tube if present. acetaminophen (Tylenol) suppository 650 mg(Linked Group 2) 650 mg, rectal, Every 4 hours PRN, pain mild (1-3), first line, Starting on Mon04/24/23 at 0429, Give rectally if unable to administer by mouth or feeding tube., If ordered PRN for pain, nurse is permitted to administer this medication for higher pain scores based on patient preference? Yes acetaminophen (Tylenol) tablet 650 mg(Linked Group 2) 650 mg, oral, Every 4 hours PRN, pain mild (1-3), first line, Starting on Mon04/24/23 at 0429, If ordered PRN for pain, nurse is permitted to administer this medication for higher pain scores based on patient preference? Yes albuterol 2.5 mg /3 mL (0.083 %) nebulizer solution 2.5 mg 2.5 mg, nebulization, Every 4 hours PRN, wheezing, Starting on Mon04/24/23 at 0520 HYDROmorphone PF (Dilaudid) injection 0.2 mg (CANCELED) 0.2 mg, intravenous, Every 4 hours PRN, pain severe (7-10), first line, Starting on Mon04/24/23 at 0504 0526 (Given - Provid er: Juan Barboza RN) ipratropium-albuteroL (Duo-Neb) 0.5-2.5 mg/3 mL nebulizer solution 3 mL 3 mL, nebulization, Every 2 hour PRN, wheezing, Starting on Mon04/24/23 at 0945, Indications: chronic obstructive pulmonary disease with bronchospasms nitroglycerin (Nitrostat) SL tablet 0.4 mg 0.4 mg, sublingual, Every 5 min PRN, chest pain, Starting on Mon04/24/23 at 0455, May administer up to 3 doses per episode. oxyCODONE-acetaminophen (Percocet) 5-325 mg per tablet 1 tablet 1 tablet, oral, Every 6 hours PRN, pain severe (7-10), second line, Starting on Mon04/24/23 at 0526, If ordered PRN for pain, nurse is permitted to administer this medication for higher pain scores based on patient preference? Yes polyethylene glycol (Glycolax, Miralax) packet 17 g 17 g, oral, Daily PRN, constipation, Starting on Mon04/24/23 at 0431, Bowel Regimen - for prevention of constipation. Linked Groups Order Group 1: tiotropium (Spiriva Respimat) 2.5 mcg/actuation inhaler 2 puffJump to med 2 puff (2 Inhalation), inhalation, Daily RT, First dose on Mon04/24/23 at 0700
Label inhaler with 3 month expiration date after inserting canister.
And fluticasone furoate-vilanteroL (Breo Ellipta) 200-25 mcg/dose inhaler 1 puff (CANCELED) 1 puff, inhalation, Daily RT, First dose on Mon04/24/23 at 0700
Rinse mouth with water after use to reduce aftertaste and incidence of candidiasis. Do not swallow.
Group 2: acetaminophen (Tylenol) tablet 650 mgJump to med 650 mg, oral, Every 4 hours PRN, pain mild (1-3), first line, Starting on Mon04/24/23 at 0429
If ordered PRN for pain, nurse is permitted to administer this medication for higher pain scores based on patient preference? Yes Or acetaminophen (Tylenol) oral liquid 650 mgJump to med 650 mg, oral, Every 4 hours PRN, pain mild (1-3), first line, Starting on Mon04/24/23 at 0429
Give oral liquid per feeding tube if present.
Or acetaminophen (Tylenol) suppository 650 mgJump to med 650 mg, rectal, Every 4 hours PRN, pain mild (1-3), first line, Starting on Mon04/24/23 at 0429
Give rectally if unable to administer by mouth or feeding tube.
If ordered PRN for pain, nurse is permitted to administer this medication for higher pain scores based on patient preference? Yes FOR RECORDS PERTAINING TO PATIENTS WHO ARE OR HAVE BEEN ENROLLED IN A CHEMICAL DEPENDENCY/SUBSTANCEABUSE PROGRAM, SOME INFORMATION MAY BE OMITTED. This clinical summary was aggregated from multiple sources. Caution should be exercised in using it in the provision of clinical care. This summary normalizes information from multiple sources, and as a consequence, information in this document may materially change the coding, format and clinical context of patient data. In addition, data may be omitted in some cases. CLINICAL DECISIONS SHOULD BE BASED ON THE PRIMARY CLINICAL RECORDS. [facility]. provides no warranty or guarantee of the accuracy or completeness of information in this document.
[2025-03-13 07:35] LABS: Anion Gap 16 (5-15); BUN 18 mg/dL (4-19); BUN/Creat Ratio 17.3 RATIO (10-20); Calcium,Total 9.5 mg/dL (7.6-11.0); Carbon Dioxide 20.8 mmol/L (21.0-32.0); Chloride 95 mmol/L (98-108); Estimated Creatinine Clearance 47.93 ml/min (50-250); Glucose 151 mg/dL (70-99); Potassium 4.2 mmol/L (3.3-5.1); Pro- Brain NATRIURETIC PEPTIDE 787 pg/mL (<=900)
--- NOTE | 2025-03-13 07:35 | RAD_ITS ---
PROCEDURE: CHEST PA AND LATERAL 03/13/2025 REASON FOR EXAM: CHEST PAIN TECHNIQUE: Procedure Code: RADCXR Modality: DX Procedure: CHEST PA AND LATERAL COMPARISON: None provided. 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 Right thoracic transvenous pacemaker with atrial and ventricular leads in place . Prior sternotomy seen. The cardiomediastinal silhouette is within the normal range. Chronic lung changes are seen, but no acute pneumonic process is clearly apprec iated. Sensitivity is reduced by lack of prior comparison study, however. No pleural effusion or pneumothorax is seen. Reading Location: [place] [id number]
[2025-03-13 07:48] LABS: Differential Indicated SCAN CRITERIA MET
[2025-03-13 07:59] LABS: Prothrombin Time (Protime)PT. 25.8 SECONDS (11.7-14.9)
[2025-03-13 08:00] LABS: Partial Thromboplast Time 29.9 Seconds (24.1-36.2)
[2025-03-13] MEDS: Albuterol 2.5 MG/3 ML VIAL.NEB. INHALATION ×2 (08:40)
--- NOTE | 2025-03-13 10:12 | PCM.HP.STD ---
HPI - General General Date of Service: 03/13/25 HPI Narrative NHI ZHANG, is a 74 F who presents with shortness of breath. Patient been short of breath since this past Monday. Went to an urgent care and received prednisone but despite that she has been short of breath. Her activity is limited at baseline but she just feels overall more short of breath. Presents to the emergency room where her sats are in the 90s but has audible wheezing. Patient received methylprednisolone as well as bronchodilators. And the hospital service was contacted for admission. Patient has been coughing, but it nonproductive. No fever or chills. [ ] [facility] Medical History Blood disorder Wears hearing aid Wears glasses Anxiety Arthritis Easy bruising Excessive bleeding Back pain Dietary restriction Gastric reflux Non-smoker Shortness of breath on exertion Asthma History of CHF (congestive heart failure) History of edema History of echocardiogram Hypertension Cardiology follow-up encounter History of pacemaker History of atrial fibrillation Abnormal ultrasound of breast Lump of right breast Abnormal mammogram Bilateral cataracts Home Medications Medication Instructions Recorded Last Taken Type acetaminophen 325 mg tablet 325 mg PO ONCE PRN pain 07/11/24 Unknown History (Tylenol) cetirizine 10 mg tablet (Zyrtec) 10 mg PO QDAY PRN allergy symptoms 07/11/24 Unknown History diltiazem HCl 240 mg 240 mg PO BID 07/11/24 07/17/24 08:00 History capsule,extended release 24 hr (Cardizem CD) esomeprazole magnesium 20 mg 20 mg PO QDAY 07/11/24 07/17/24 08:00 History capsule,delayed release (Nexium) fluticasone fur. 100 mcg-umeclid 1 inh inhalation Q24H 07/11/24 Unknown History 62.5 mcg-vilant 25 mcg inhalat.powder (Trelegy Ellipta) furosemide 20 mg tablet (Lasix) 20 mg PO QPM 07/11/24 Unknown History furosemide 40 mg tablet (Lasix) 40 mg PO QAM 07/11/24 Unknown History lactobacillus combination no.4 3 3,000 mmu cells PO QDAY 07/11/24 Unknown History billion cell capsule (Probiotic) levalbuterol tartrate 45 2 inh inhalation Q6H 07/11/24 Unknown History mcg/actuation aerosol inhaler (Xopenex HFA) lisinopril 10 mg tablet 10 mg PO QDAY 07/11/24 Unknown History tramadol 25 mg tablet 25 mg PO Q6H PRN pain 07/11/24 Unknown History warfarin 2 mg tablet 2.5 mg PO MOWEFR mowefrsasu 07/11/24 07/11/24 History ipratropium 0.5 mg-albuterol 3 mg 3 ml inhalation PRN 07/15/24 Unknown History (2.5 mg base)/3 mL nebulization soln magnesium gluconate 27.5 mg 27.5 mg PO DAILY 07/15/24 07/16/24 History magnesium (500 mg) tablet pravastatin 40 mg tablet 40 mg PO QHS 07/15/24 Unknown History warfarin 2.5 mg tablet 1.25 mg PO TUTH 07/15/24 07/11/24 History metformin 500 mg tablet,extended 500 mg PO BID 07/24/24 Unknown History release 24 hr prednisone 20 mg tablet 40 mg PO DAILY 03/13/25 Unknown History Allergy/AdvReac Type Severity Reaction Status Date / Time cephalexin (From Keflex) Allergy Hives Verified 03/13/25 06:45 levofloxacin (From Levaquin) Allergy Hives Verified 03/13/25 06:45 Sulfa (Sulfonamide Allergy Hives Verified 03/13/25 06:45 Antibiotics) sulfamethoxazole (From Allergy Hives Verified 03/13/25 06:45 Bactrim) trimethoprim (From Bactrim) Allergy Hives Verified 03/13/25 06:45 Iodinated Contrast Media AdvReac Severe Other Verified 03/13/25 06:45 (contrast dye - iodinated) Family History Mother Breast cancer, Onset Age: 57 Sister Breast cancer Surgical History Status post right breast lumpectomy History of carotid endarterectomy H/O right breast biopsy H/O: hysterectomy Hx of cholecystectomy History of open heart surgery Social History Smoking Status: Never smoker alcohol intake: never substance use type: does not use ROS ROS Narrative All review of systems were negative except as mentioned above in the history of present illness and the other review of systems. Vital Signs Vital Signs Vital Signs: 03/13/25 06:38 03/13/25 07:23 03/13/25 07:53 Temperature 36.5 C L Temperature Source Oral Pulse Rate 83 80 65 Respiratory Rate 16 19 H 23 H Respiratory Pattern Normal Blood Pressure 156/58 H 132/46 H Blood Pressure Mean 90 74 Pulse Ox 97 98 Oxygen Delivery Method Room Air Room Air 03/13/25 08:53 Temperature Temperature Source Pulse Rate 62 Respiratory Rate 20 H Respiratory Pattern Blood Pressure 120/41 L Blood Pressure Mean 67 Pulse Ox 96 Oxygen Delivery Method Room Air Weight Weight: 88.6 kg Body Mass Index (BMI) 38.1 Physical Exam Const alert and no apparent distress Constitutional Narrative: On room air. No respiratory distress. No conversational dyspnea. HEENT normocephalic, head/scalp atraumatic and hearing grossly normal bilaterally Resp normal respiratory effort and no retractions Resp Narrative: Bilateral wheezing throughout Cardio regular rate, regular rhythm, S1 normal heart sound and S2 normal heart sound GI normal to inspection, nondistended, normoactive bowel sounds, soft to palpation, non-tender and non-distended Extremity normal to inspection and full ROM Results Lab / Micro Data Attestation: I reviewed the patient's lab results. 03/13/25 06:55 03/13/25 06:55 Labs: Laboratory Results - last 24 hr 03/13/25 06:55: WBC 18.9 H, RBC 4.88, Hgb 12.7, Hct 39.2, MCV 80.3 L, MCH 26.0 L, MCHC 32.4, RDW Std Deviation 47.1 H, RDW Coeff of Juliane 16.3 H, Plt Count 370, MPV 8.8, Immature Gran % (Auto) 0.800, Neut % (Auto) 78.5 H, Lymph % (Auto) 10.6 L, [place] % (Auto) 8.4, Eos % (Auto) 1.4, Baso % (Auto) 0.3, Absolute Neuts (auto) 14.8 H, Absolute Lymphs (auto) 2.01, Nucleated RBC % 0, Differential Comment COMMENT, PT 25.8 H, INR 2.3, APTT 29.9, Sodium 132 L, Potassium 4.2, Chloride 95 L, Carbon Dioxide 20.8 L, Anion Gap 16 H, BUN 18, Creatinine 1.02, Estim Creat Clear Calc 47.93 L, Est GFR (MDRD) Non-Af 58 L, BUN/Creatinine Ratio 17.3, Glucose 151 H, Calcium 9.5, NT pro BNP II 787 Imaging Radiology Impression Chest X-Ray 03/13/25 07:35 IMPRESSION: Moderate degenerative changes of the thoracic spine are noted. Right thoracic transvenous pacemaker with atrial and ventricular leads in place. Prior sternotomy seen. The cardiomediastinal silhouette is within the normal range. Chronic lung changes are seen, but no acute pneumonic process is clearly appreciated. Sensitivity is reduced by lack of prior comparison study, however. No pleural effusion or pneumothorax is seen. Reading Location: [facility] Assessment & Plan Assessment/Plan (1) Asthma exacerbation: PLAN: Onset was 2 days ago. Did not improve with prednisone. Patient currently peers stable but still has audible wheezing and is symptomatic. Will start her on methylprednisolone as well as antibiotics with azithromycin. Patient is coughing so we will add guaiffenessin w codeine. PLAN: Plan Chronic medical conditions Atrial fibrillation: Continue with warfarin. Currently INR is therapeutic. Diabetes mellitus type 2: [id number]. Continue metformin. Sliding scale insulin. CAD: Stable CHF: Compensated. Continue with furosemide VTE prophylaxis: Not indicated as patient is already therapeutic on warfarin CODE STATUS: Addressed with the patient, patient wishes to be full code. Charges/Coding Visit Charges Inpatient E&M: 94787 Init Hosp L2
[2025-03-13] MEDS: Aztreonam 2 GM 2 GM in 0.9% Normal Saline (100mL MB+) 100 ML IV (10:27)
--- NOTE | 2025-03-13 11:34 | NURSING ---
TALKED WITH PNS STAFF AND LAB STAFF. AWARE SWAB FOR COVID, FLU, RSV ALREADY SEND.
[2025-03-13] MEDS: 0.9% Saline Lock 10 ML Syringe IV (13:15)
[2025-03-13] MEDS: metFORMIN (XR) 500 MG Tablet PO (18:06)
[2025-03-13] MEDS: Warfarin (PBKC) 2.5 MG Tablet 1.25 MG PO (18:10)
[2025-03-14] VITALS (12 sets, daily range): BP systolic 130–144; BP diastolic 46–60; PULSE 61–74; RESP 16–24; TEMP 36.6–37.1; O2SAT 90–96
[2025-03-14] MEDS: 0.9% Saline Lock 10 ML Syringe IV ×3 (06:08→21:13)
[2025-03-14 06:50] LABS: Hematocrit 38.8 % (37-47); Hemoglobin 12.7 g/dL (12.0-15.0); Immature Granulocytes Count 0.200 X10^3/uL (0.0-0.0); Mean Corp Hgb Conc 32.7 g/dL (32-36); Mean Corpuscular Volume 81.0 fL (81-99); Mean Platelet Vol. 8.8 fl (6.2-12.0); NRBC Flagged by Analyzer 0 % (0-5); Platelet Count 379 K/mm3 (150-450); RBC Distribution Width CV 16.6 % (11.6-14.6); RBC Distribution Width SD 48.7 fl (35.1-43.9); Red Blood Count 4.79 M/mm3 (4.2-5.4); White Blood Count 15.9 K/mm3 (4.4-11.0)
[2025-03-14 06:57] LABS: Prothrombin Time (Protime)PT. 28.4 SECONDS (11.7-14.9)
[2025-03-14 07:15] LABS: Anion Gap 13 (5-15); BUN 21 mg/dL (4-19); BUN/Creat Ratio 20.0 RATIO (10-20); Calcium,Total 9.4 mg/dL (7.6-11.0); Carbon Dioxide 24.0 mmol/L (21.0-32.0); Chloride 99 mmol/L (98-108); Estimated Creatinine Clearance 45.57 ml/min (50-250); Glucose 168 mg/dL (70-99); Potassium 4.4 mmol/L (3.3-5.1)
--- NOTE | 2025-03-14 07:26 | PCM.PN.HOSP ---
Subjective Subjective Had a bout last night where she was short of breath and her oxygen was low. Still wheezing. Objective Data Objective Data Vital Signs: Vital Signs Temp Pulse Resp BP Pulse Ox O2 Del Method 37.1 C 64 18 141/52 H 95 Room Air 03/14/25 06:18 03/14/25 06:18 03/14/25 06:18 03/14/25 06:18 03/14/25 06:18 03/14/25 06:18 Oxygen Delivery Method Room Air Weight: 85.275 kg Body Mass Index (BMI) 36.7 Intake & Output: Intake and Output for Last 24 Hours 03/12/25 03/13/25 03/14/25 23:59 23:59 23:59 Intake Total 150 / 150 Balance 150 / 150 Lab / Micro Data 03/14/25 06:16 03/14/25 06:16 Labs: Laboratory Results - last 24 hr 03/13/25 06:55: WBC 18.9 H, RBC 4.88, Hgb 12.7, Hct 39.2, MCV 80.3 L, MCH 26.0 L, MCHC 32.4, RDW Std Deviation 47.1 H, RDW Coeff of Juliane 16.3 H, Plt Count 370, MPV 8.8, Immature Gran % (Auto) 0.800, Neut % (Auto) 78.5 H, Lymph % (Auto) 10.6 L, [place] % (Auto) 8.4, Eos % (Auto) 1.4, Baso % (Auto) 0.3, Absolute Neuts (auto) 14.8 H, Absolute Lymphs (auto) 2.01, Nucleated RBC % 0, Differential Comment COMMENT, PT 25.8 H, INR 2.3, APTT 29.9, Sodium 132 L, Potassium 4.2, Chloride 95 L, Carbon Dioxide 20.8 L, Anion Gap 16 H, BUN 18, Creatinine 1.02, Estim Creat Clear Calc 47.93 L, Est GFR (MDRD) Non-Af 58 L, BUN/Creatinine Ratio 17.3, Glucose 151 H, Calcium 9.5, NT pro BNP II 787 03/13/25 11:08: POC Glucose 233 H 03/13/25 15:44: POC Glucose 259 H 03/13/25 21:32: POC Glucose 228 H 03/14/25 06:11: POC Glucose 167 H 03/14/25 06:16: WBC 15.9 H, RBC 4.79, Hgb 12.7, Hct 38.8, MCV 81.0, MCH 26.5 L, MCHC 32.7, RDW Std Deviation 48.7 H, RDW Coeff of Juliane 16.6 H, Plt Count 379, MPV 8.8, Immature Gran % (Auto) 1.300 H, Neut % (Auto) 89.0 H, Lymph % (Auto) 5.4 L, [place] % (Auto) 4.0, Eos % (Auto) 0.1, Baso % (Auto) 0.2, Absolute Neuts (auto) 14.2 H, Absolute Lymphs (auto) 0.86, Nucleated RBC % 0, PT 28.4 H, INR 2.6, Sodium 136, Potassium 4.4, Chloride 99, Carbon Dioxide 24.0, Anion Gap 13, BUN 21 H, Creatinine 1.05, Estim Creat Clear Calc 45.57 L, Est GFR (MDRD) Non-Af 56 L, BUN/Creatinine Ratio 20.0, Glucose 168 H, Calcium 9.4 Micro: Microbiology 03/13/25 11:19 Mucosa - Nasopharyngeal Respiratory Panel (PCR) - Final Rhinovirus 03/13/25 11:19 Mucosa - Nasopharyngeal SARS-CoV-2, Influenza & RSV (PCR) - Final Radiography Diagnostic Testing: Radiology Impression Chest X-Ray 03/13/25 07:35 IMPRESSION: Moderate degenerative changes of the thoracic spine are noted. Right thoracic transvenous pacemaker with atrial and ventricular leads in place. Prior sternotomy seen. The cardiomediastinal silhouette is within the normal range. Chronic lung changes are seen, but no acute pneumonic process is clearly appreciated. Sensitivity is reduced by lack of prior comparison study, however. No pleural effusion or pneumothorax is seen. Reading Location: [place] [address] Physical Exam Const alert and no apparent distress Constitutional Narrative: No respiratory distress. No conversational dyspnea. Neck Neck Narrative: Audible upper respiratory wheezes Resp normal respiratory effort and no retractions Resp Narrative: Upper respiratory wheezes radiating throughout the lung rahman. Cardio regular rate, regular rhythm, S1 normal heart sound and S2 normal heart sound GI normal to inspection, nondistended, normoactive bowel sounds, soft to palpation, non-tender and non-distended Neuro Sensorium / Orientation: awake and alert Assessment & Plan Assessment/Plan (1) Asthma exacerbation: PLAN: Exacerbated by rhinovirus. Onset was 2 days to admission. Did not improve with outpatient prednisone. Will start her on methylprednisolone as well as antibiotics with azithromycin. home oxygen evaluation nursing documented 90% at rest on room air and then 90% with ambulation but did reach 1 point of 80% while she is talking and walking. Plan is to continue inpatient management with IV steroids, bronchodilators and antibiotics. PLAN: Plan Chronic medical conditions Atrial fibrillation: Continue with warfarin. Currently INR is therapeutic at 2.6 Diabetes mellitus type 2: [id number]-guyvofgaq. Continue metformin. Sliding scale insulin. CAD: Stable CHF: Compensated. Continue with furosemide VTE prophylaxis: Not indicated as patient is already therapeutic on warfarin CODE STATUS: Addressed with the patient, patient wishes to be full code. Charges/Coding Visit Charges Inpatient E&M: 43857 Subs Hosp L2
[2025-03-14] MEDS: metFORMIN (XR) 500 MG Tablet PO ×2 (09:11→16:09)
[2025-03-14] MEDS: Lactobacillis Acidophilus 1 CAP PO (09:11)
--- NOTE | 2025-03-14 10:21 | CASEMGMT ---
TAPIA Met with patient to complete TAPIA form. TAPIA form and its content were verbally explained and patient's questions were answered to the best of my ability. Patient voiced understanding and signed TAPIA form. Patient provided a copy of signed TAPIA form and original placed in patient's chart. Patient had no further questions. Sherry Aguilar, Discharge Planning Asst
[2025-03-14] MEDS: Warfarin (PBKC) 2.5 MG Tablet PO (16:09)
[2025-03-15] VITALS (14 sets, daily range): BP systolic 133–169; BP diastolic 45–62; PULSE 60–93; RESP 17–20; TEMP 36.2–37.1; O2SAT 93–98
[2025-03-15 08:06] LABS: Prothrombin Time (Protime)PT. 32.2 SECONDS (11.7-14.9)
--- NOTE | 2025-03-15 08:57 | CASEMGMT ---
Dx: Asthma Exacerbation LACE: 2 6-Clicks: 24 Medical record reviewed and patient evaluated for identification of discharge planning needs. Based on this review, at this time criteria are not present to indicate a need for discharge planning. Will remain available to assist with discharge planning needs as identified or requested.
--- NOTE | 2025-03-15 09:45 | PN.HOSP_ITS ---
Subjective Subjective Still wheezing, coughing. Feels better in the morning and then worse at night. Objective Data Objective Data Vital Signs: Vital Signs Temp Pulse Resp BP Pulse Ox O2 Del Method 36.4 C L 71 17 133/55 H 93 Room Air 03/15/25 06:43 03/15/25 07:26 03/15/25 07:26 03/15/25 06:43 03/15/25 08:25 03/15/25 08:25 Oxygen Delivery Method Room Air Weight: 85.275 kg Body Mass Index (BMI) 36.7 Intake & Output: Intake and Output for Last 24 Hours 03/13/25 03/14/25 03/15/25 23:59 23:59 23:59 Intake Total 150 / 150 950 / 950 Balance 150 / 150 950 / 950 Lab / Micro Data 03/14/25 06:16 03/14/25 06:16 Labs: Laboratory Results - last 24 hr 03/14/25 11:05: POC Glucose 174 H 03/14/25 16:05: POC Glucose 200 H 03/14/25 21:15: POC Glucose 191 H 03/15/25 06:15: PT 32.2 H, INR 3.0 03/15/25 06:50: POC Glucose 193 H Micro: Microbiology 03/13/25 11:19 Mucosa - Nasopharyngeal Respiratory Panel (PCR) - Final Rhinovirus 03/13/25 11:19 Mucosa - Nasopharyngeal SARS-CoV-2, Influenza & RSV (PCR) - Final Physical Exam Const alert and no apparent distress Constitutional Narrative: No respiratory distress. No conversational dyspnea. On room air. HEENT head/scalp atraumatic and moist oral mucous membranes Resp normal respiratory effort and no retractions Resp Narrative: Upper respiratory wheezing. No stridor Cardio regular rate, regular rhythm, S1 normal heart sound and S2 normal heart sound GI normal to inspection, nondistended, normoactive bowel sounds, soft to palpation, non-tender and non-distended Extremity normal to inspection and full ROM Neuro Sensorium / Orientation: awake and alert Assessment & Plan Assessment/Plan (1) Asthma exacerbation: PLAN: Exacerbated by rhinovirus (confirmed on respiratory panel). Onset was 2 days to admission. Did not improve with outpatient prednisone. Will start her on methylprednisolone as well as antibiotics with azithromycin. home oxygen evaluation March 14 nursing documented 90% at rest on room air and then 90% with ambulation but did reach 1 point of 80% while she is talking and walking. Plan is to continue inpatient management with IV steroids, bronchodilators and antibiotics. Still feeling unwell. Will decrease methylprednisolone to twice daily from 3 times daily. PLAN: Plan Chronic medical conditions * Atrial fibrillation: Continue with warfarin. Currently INR is therapeutic at 3. * Diabetes mellitus type 2: [id number]. Continue metformin. Sliding scale insulin. * CAD: Stable * CHF: Compensated. Continue with furosemide VTE prophylaxis: Not indicated as patient is already therapeutic on warfarin CODE STATUS: Addressed with the patient, patient wishes to be full code. Disposition: To be determined. Patient still feeling unwell. Lives by herself. Will for the patient be ready for discharge to home in the next 24 to 48 hours. Charges/Coding Visit Charges Inpatient E&M: 53873 Subs Hosp L2
[2025-03-15] MEDS: metFORMIN (XR) 500 MG Tablet PO ×2 (10:17→17:48)
[2025-03-15] MEDS: Lactobacillis Acidophilus 1 CAP PO (10:30)
[2025-03-15] MEDS: Warfarin (PBKC) 2.5 MG Tablet PO (17:48)
[2025-03-15] MEDS: 0.9% Saline Lock 10 ML Syringe IV (21:44)
[2025-03-16] VITALS (11 sets, daily range): BP systolic 133–148; BP diastolic 50–55; PULSE 60–71; RESP 17–24; TEMP 36.3–37.1; O2SAT 93–98
[2025-03-16 04:34] LABS: Prothrombin Time (Protime)PT. 35.6 SECONDS (11.7-14.9)
[2025-03-16] MEDS: Lactobacillis Acidophilus 1 CAP PO (08:49)
[2025-03-16] MEDS: metFORMIN (XR) 500 MG Tablet PO ×2 (08:50→16:42)
--- NOTE | 2025-03-16 09:08 | PN.HOSP_ITS ---
Subjective Subjective Saw patient at bedside this morning. She was sitting back comfortably in bed and about to eat breakfast. She does continue to have mild to moderate upper airway wheezing noted bilaterally with significant coughing during lung auscultation. She otherwise is breathing comfortably on room air at rest. States she does feel mildly improved from yesterday but would feel more comfortable going home tomorrow. Objective Data Objective Data Vital Signs: Vital Signs Temp Pulse Resp BP Pulse Ox O2 Del Method 98.7 F 62 18 148/51 H 94 Room Air 03/16/25 08:57 03/16/25 08:57 03/16/25 08:57 03/16/25 08:57 03/16/25 08:57 03/16/25 08:57 Oxygen Delivery Method Room Air Weight: 85.275 kg Body Mass Index (BMI) 36.7 Intake & Output: Intake and Output for Last 24 Hours 03/14/25 03/15/25 03/16/25 23:59 23:59 23:59 Intake Total 950 / 950 1450 / 1450 Balance 950 / 950 1450 / 1450 Lab / Micro Data 03/14/25 06:16 03/14/25 06:16 Labs: Laboratory Results - last 24 hr 03/15/25 12:24: POC Glucose 179 H 03/15/25 17:05: POC Glucose 179 H 03/15/25 21:36: POC Glucose 213 H 03/16/25 03:32: PT 35.6 H, INR 3.5 03/16/25 07:00: POC Glucose 164 H Micro: Microbiology 03/13/25 11:19 Mucosa - Nasopharyngeal Respiratory Panel (PCR) - Final Rhinovirus 03/13/25 11:19 Mucosa - Nasopharyngeal SARS-CoV-2, Influenza & RSV (PCR) - Final Physical Exam Const alert and no apparent distress Constitutional Narrative: No respiratory distress. No conversational dyspnea. On room air. HEENT head/scalp atraumatic and moist oral mucous membranes Resp normal respiratory effort and no retractions Resp Narrative: Mild to moderate upper respiratory wheezing. No stridor Cardio regular rate, regular rhythm, S1 normal heart sound and S2 normal heart sound GI normal to inspection, nondistended, normoactive bowel sounds, soft to palpation, non-tender and non-distended Extremity normal to inspection and full ROM Neuro Sensorium / Orientation: awake and alert Assessment & Plan Assessment/Plan (1) Asthma exacerbation: PLAN: Plan Patient is a 74-year-old female who presented to [facility] ED on 03/13/2025 with shortness of breath. Asthma exacerbation secondary to rhinovirus infection -Exacerbated by rhinovirus (confirmed on respiratory panel). -Onset was 2 days to admission. Did not improve with outpatient prednisone. -Will start her on methylprednisolone as well as antibiotics with azithromycin. -home oxygen evaluation March 14 nursing documented 90% at rest on room air and then 90% with ambulation but did reach 1 point of 80% while she is talking and walking. Plan is to continue inpatient management with IV steroids, bronchodilators and antibiotics. -Still feeling unwell. Will decrease methylprednisolone to twice daily from 3 times daily. 03/16: Breathing comfortably on room air at rest with no conversational dyspnea, but continues to have mild to moderate upper airway wheezing noted. Will continue scheduled nebs every 4 hours, Solu-Medrol 40 mg every 12 hours and azithromycin (day 3 of 5) today with tentative plan for discharge home tomorrow. Chronic medical conditions * Atrial fibrillation with supratherapeutic INR: INR supratherapeutic at 3.5 on 03/16. Holding home warfarin dose on 03/16, follow-up a.m. INR and resume warfarin once therapeutic. * Diabetes mellitus type 2: [id number]. Continue metformin. Sliding scale insulin. * CAD: Stable * CHF: Compensated. Continue with furosemide VTE prophylaxis: Warfarin on hold due to supratherapeutic INR as above. CODE STATUS: Addressed with the patient, patient wishes to be full code. Disposition: Lives by herself and still with mild to moderate wheezing and shortness of breath with exertion as above. Tentatively planning for discharge home tomorrow. Total clinical time spent by myself addressing the patient's medical issues, reviewing all the data, and collaborating with patient's care team: 39 minutes. Charges/Coding Visit Charges Inpatient E&M: 50831 Subs Hosp L2
[2025-03-16] MEDS: Budesonide Respules 0.5 MG/2 ML AMPUL.NEB. INHALATION ×2 (11:09→19:55)
[2025-03-16] MEDS: 0.9% Saline Lock 10 ML Syringe IV (21:28)
[2025-03-17] VITALS (12 sets, daily range): BP systolic 112–132; BP diastolic 39–60; PULSE 60–76; RESP 18–24; TEMP 36.6–36.8; O2SAT 87–95
[2025-03-17] MEDS: Budesonide Respules 0.5 MG/2 ML AMPUL.NEB. INHALATION (07:09)
[2025-03-17 07:26] LABS: Prothrombin Time (Protime)PT. 35.6 SECONDS (11.7-14.9)
[2025-03-17 07:31] LABS: Hematocrit 40.1 % (37-47); Hemoglobin 13.1 g/dL (12.0-15.0); Mean Corp Hgb Conc 32.7 g/dL (32-36); Mean Corpuscular Volume 80.8 fL (81-99); Mean Platelet Vol. 8.6 fl (6.2-12.0); Platelet Count 402 K/mm3 (150-450); RBC Distribution Width CV 16.5 % (11.6-14.6); RBC Distribution Width SD 48.7 fl (35.1-43.9); Red Blood Count 4.96 M/mm3 (4.2-5.4); White Blood Count 16.7 K/mm3 (4.4-11.0)
[2025-03-17 07:41] LABS: Anion Gap 20 (5-15); BUN 28 mg/dL (4-19); BUN/Creat Ratio 27.9 RATIO (10-20); Calcium,Total 9.2 mg/dL (7.6-11.0); Carbon Dioxide 20.4 mmol/L (21.0-32.0); Chloride 96 mmol/L (98-108); Estimated Creatinine Clearance 47.37 ml/min (50-250); Glucose 162 mg/dL (70-99); Potassium 3.7 mmol/L (3.3-5.1)
[2025-03-17] MEDS: Lactobacillis Acidophilus 1 CAP PO (08:04)
[2025-03-17] MEDS: metFORMIN (XR) 500 MG Tablet PO ×2 (08:04→16:13)
[2025-03-17] MEDS: 0.9% Saline Lock 10 ML Syringe IV (08:04)
[2025-03-17] MEDS: Polyethylene Glycol 3350 17 GM PACKET PO (09:44)
--- NOTE | 2025-03-17 14:35 | PN.HOSP_ITS ---
Subjective Subjective Doing well, no issues overnight. Still having some shortness of breath and she did require oxygen this morning when she ambulated but not this afternoon Objective Data Objective Data Vital Signs: Vital Signs Temp Pulse Resp BP Pulse Ox O2 Del Method 98.3 F 71 18 112/39 L 95 Room Air 03/17/25 11:31 03/17/25 11:31 03/17/25 11:31 03/17/25 11:31 03/17/25 11:31 03/17/25 13:42 Oxygen Delivery Method Room Air Weight: 188 lb Body Mass Index (BMI) 36.7 Intake & Output: Intake and Output for Last 24 Hours 03/16/25 03/17/25 03/18/25 03:59 03:59 03:59 Intake Total 1450 / 1450 700 / 700 300 / 300 Balance 1450 / 1450 700 / 700 300 / 300 Lab / Micro Data 03/17/25 06:42 03/17/25 06:42 Labs: Laboratory Results - last 24 hr 03/16/25 16:11: POC Glucose 147 H 03/16/25 21:27: POC Glucose 174 H 03/17/25 06:36: POC Glucose 178 H 03/17/25 06:42: WBC 16.7 H, RBC 4.96, Hgb 13.1, Hct 40.1, MCV 80.8 L, MCH 26.4 L , MCHC 32.7, RDW Std Deviation 48.7 H, RDW Coeff of Juliane 16.5 H, Plt Count 402, MPV 8.6, PT 35.6 H, INR 3.5, Sodium 136, Potassium 3.7, Chloride 96 L, Carbon Dioxide 20.4 L, Anion Gap 20 H, BUN 28 H, Creatinine 1.01, Estim Creat Clear Calc 47.37 L, Est GFR (MDRD) Non-Af 58 L, BUN/Creatinine Ratio 27.9 H, Glucose 162 H, Calcium 9.2 03/17/25 11:13: POC Glucose 153 H Micro: Microbiology 03/13/25 11:19 Mucosa - Nasopharyngeal Respiratory Panel (PCR) - Final Rhinovirus 03/13/25 11:19 Mucosa - Nasopharyngeal SARS-CoV-2, Influenza & RSV (PCR) - Final Physical Exam Narrative General: Alert, Oriented x3, Cooperative, No apparent distress HEENT: Atraumatic, PERRLA, EOMI, Normocephalic Oral: Moist Mucosa Neck: Supple, No JVD Lungs: Diminished, Normal air movement, scattered rhonchi, wheeze, No rales Cardiovascular: Regular rate, Regular Rhythm, Normal S1, Normal S2, No murmurs Abdomen: Soft, Non Tender, Non-Distended, No Hepato-splenomegaly Extremities: No edema, Capillary Refill Less than 3 Seconds Skin: No rashes, No breakdown Musculoskeletal: No Tenderness to Palpation of Joints or Extremities Neurological: No focal neurological deficits, moves all extremities Psych/Mental Status: Normal Affect, Appropriate Assessment & Plan Assessment/Plan (1) Asthma exacerbation: PLAN: Plan Asthma exacerbation secondary to rhinovirus infection -Exacerbated by rhinovirus (confirmed on respiratory panel). -Onset was 2 days to admission. Did not improve with outpatient prednisone. -Will start her on methylprednisolone as well as antibiotics with azithromycin. -home oxygen evaluation March 14 nursing documented 90% at rest on room air and then 90% with ambulation but did reach 1 point of 80% while she is talking and walking. Plan is to continue inpatient management with IV steroids, bronchodilators and antibiotics. -Still feeling unwell. Will decrease methylprednisolone to twice daily from 3 times daily. 03/16: Breathing comfortably on room air at rest with no conversational dyspnea, but continues to have mild to moderate upper airway wheezing noted. Will continue scheduled nebs every 4 hours, Solu-Medrol 40 mg every 12 hours and azithromycin (day 3 of 5) today with tentative plan for discharge home tomorrow. 03/17/2025: Says today that she does not feel comfortable going home today despite not needing any oxygen and would prefer to go home tomorrow. She will complete antibiotics tomorrow and then she will remain on oral steroids for slow taper Chronic medical conditions * Atrial fibrillation with supratherapeutic INR: INR supratherapeutic at 3.5 on 03/16. Holding home warfarin dose on 03/16, follow-up a.m. INR and resume warfarin once therapeutic. * Diabetes mellitus type 2: [id number]. Continue metformin. Sliding scale insulin. * CAD: Stable * CHF: Compensated. Continue with furosemide DVT: Coumadin, INR has been borderline high, plan to restart at discharge Charges/Coding Visit Charges Inpatient E&M: 93181 Subs Hosp L2
[2025-03-18 02:30] VITALS: BP 144/56; PULSE 67; RESP 18; TEMP 36.6; O2SAT 94
[2025-03-18 03:28] VITALS: PULSE 75; RESP 20
--- NOTE | 2025-03-18 07:05 | DCINST_ITS ---
Discharge Instructions DC O2, CPAP, BIPAP needs Home O2 Discharge instructions: No Dressing / Incision Discharge Activity: Return to Normal Activity Dressing / Incision Call your doctor if you observe: Fever of 101 or Higher, Shortness of breath, Dizziness, Fainting spells, Swelling in the ankles, Chest pain and Increased palpitations (irregular heartbeat) Follow Up Care Test Results: Test results from this visit will be discussed in further detail at your follow- up appointment, if applicable. Discharge Plan Admission Admit Date/Time: 03/14/25 11:56 Attending Provider: Vipin Mendosa Primary Care Provider: Ronit Doan Consulting Providers: Francisco Godinez; Tj Chinchilla Discharge Orders/Prescriptions Prescriptions: New prednisone 10 mg tablet 10 mg PO DAILY Qty: 20 0RF Rx Instructions: Take 3 tablets daily for 3 days then 2 tablets daily for 3 days then 1 tablet daily for 3 days then half tablet daily for 4 days Continued Trelegy Ellipta 100-62.5-25 mcg blister with device 1 inh inhalation Q24H lisinopril 10 mg tablet 10 mg PO QDAY levalbuterol tartrate [Xopenex HFA] 45 mcg/actuation HFA aerosol inhaler 2 inh inhalation Q6H furosemide [Lasix] 40 mg tablet 40 mg PO QAM furosemide [Lasix] 20 mg tablet 20 mg PO QPM diltiazem HCl [Cardizem CD] 240 mg capsule,extended release 24hr 240 mg PO BID tramadol 25 mg tablet 25 mg PO Q6H PRN (Reason: pain) warfarin 2 mg tablet 2.5 mg PO .COMPLEX Rx Instructions: 2.5 mg orally mowefrsasu; esomeprazole magnesium [Nexium] 20 mg capsule,delayed release(DR/EC) 20 mg PO QDAY Probiotic 3 billion cell capsule 3,000 mmu cells PO QDAY Rx Instructions: administer with a meal cetirizine [Zyrtec] 10 mg tablet 10 mg PO QDAY PRN (Reason: allergy symptoms) acetaminophen [Tylenol] 325 mg tablet 325 mg PO ONCE PRN (Reason: pain) metformin 500 mg tablet extended release 24 hr 500 mg PO BID gabapentin 100 mg capsule 200 mg PO QHS ipratropium-albuterol 0.5 mg-3 mg(2.5 mg base)/3 mL solution for nebulization 3 ml inhalation PRN pravastatin 40 mg tablet 40 mg PO QHS warfarin 2.5 mg tablet 1.25 mg PO TUTH magnesium gluconate 27.5 mg magne- sium (500 mg) tablet 27.5 mg PO DAILY Discontinued prednisone 20 mg tablet 40 mg PO DAILY Referrals / Follow Up: Ricardo Angulo DO [Med Staff - Active Staff, Pulmonary Medicine] - Within 3 Months Ronit Doan DO [Primary Care Provider, Medical] - In 1 Week Disposition Disposition (needs filled in before D/C Order can be placed): Home, Self Care
[2025-03-18 07:25] VITALS: PULSE 73; RESP 18
[2025-03-18 07:55] VITALS: O2SAT 93
--- NOTE | 2025-03-18 07:57 | CPS ---
held pulmicort, patient transitioning to oral steroids to go home on.
[2025-03-18 08:30] VITALS: BP 127/47; PULSE 70; RESP 18; TEMP 36.9; O2SAT 95
[2025-03-18] MEDS: metFORMIN (XR) 500 MG Tablet PO (08:35)
[2025-03-18] MEDS: Lactobacillis Acidophilus 1 CAP PO (08:36)
[2025-03-18] MEDS: Polyethylene Glycol 3350 17 GM PACKET PO (08:36)
[2025-03-18 09:00] VITALS: O2SAT 95; O2SAT 96
--- NOTE | 2025-03-18 09:40 | CASEMGMT ---
RN CM note: Discharge order is in. RN CM to room. Pt resting in bed. Pt aware Rx for Prednisone has been sent to [facility]. She has an appt w/nurse @ PCP's office on to have INR checked and is going to see about getting appt w/physician that day for hospital f/u visit. Aware to f/u with Dr Angulo w/in 3 months. Per Ayanna BEE, home O2 testing has been completed and pt did not qualify for home O2. Pt denies having any discharge needs or concerns. Jaydon BSN RN CM
--- NOTE | 2025-03-18 09:50 | PCM.DC.SUM ---
Providers Date of Admission: 03/14/25 Primary Care Physician: Dr. Ronit Doan DO Reason For Visit: ASTHMA EXACERBATION Diagnosis Discharge Diagnosis (1) Asthma exacerbation: Status: Acute Code(s): J45.901 - Unspecified asthma with (acute) exacerbation Medications at Discharge Home Medications acetaminophen 325 mg tablet (Tylenol) 325 mg PO ONCE PRN pain 07/11/24 cetirizine 10 mg tablet (Zyrtec) 10 mg PO QDAY PRN allergy symptoms 07/11/24 diltiazem HCl 240 mg capsule,extended release 24 hr (Cardizem CD) 240 mg PO BID 07/11/24 esomeprazole magnesium 20 mg capsule,delayed release (Nexium) 20 mg PO QDAY 07/11/24 fluticasone fur. 100 mcg-umeclid 62.5 mcg-vilant 25 mcg inhalat.powder (Trelegy Ellipta) 1 inh inhalation Q24H 07/11/24 furosemide 20 mg tablet (Lasix) 20 mg PO QPM 07/11/24 furosemide 40 mg tablet (Lasix) 40 mg PO QAM 07/11/24 lactobacillus combination no.4 3 billion cell capsule (Probiotic) 3,000 mmu cells PO QDAY 07/11/24 levalbuterol tartrate 45 mcg/actuation aerosol inhaler (Xopenex HFA) 2 inh inhalation Q6H 07/11/24 lisinopril 10 mg tablet 10 mg PO QDAY 07/11/24 tramadol 25 mg tablet 25 mg PO Q6H PRN pain 07/11/24 warfarin 2 mg tablet 2.5 mg PO .COMPLEX mowefrsasu 07/11/24 ipratropium 0.5 mg-albuterol 3 mg (2.5 mg base)/3 mL nebulization soln 3 ml inhalation PRN 07/15/24 magnesium gluconate 27.5 mg magnesium (500 mg) tablet 27.5 mg PO DAILY 07/15/24 pravastatin 40 mg tablet 40 mg PO QHS 07/15/24 warfarin 2.5 mg tablet 1.25 mg PO TUTH 07/15/24 metformin 500 mg tablet,extended release 24 hr 500 mg PO BID 07/24/24 gabapentin 100 mg capsule 200 mg PO QHS 03/13/25 prednisone 10 mg tablet 10 mg PO DAILY #20 tabs 03/18/25 Hospital Course Operations None Procedures None Summary of Care Provided Minutes Spent on Discharge: 36 Hospital Course: Per HPI: NHI ZHANG, is a 74 F who presents with shortness of breath. Patient been short of breath since this past Monday. Went to an urgent care and received prednisone but despite that she has been short of breath. Her activity is limited at baseline but she just feels overall more short of breath. Presents to the emergency room where her sats are in the 90s but has audible wheezing. Patient received methylprednisolone as well as bronchodilators. And the hospital service was contacted for admission. Patient has been coughing, but it nonproductive. No fever or chills. Hospital course: 1. Asthma exacerbation secondary to rhinovirus–74-year-old female presented to the hospital with increasing shortness of breath. She initially been seen as an outpatient was started on steroids and took 2 days of this but had to urination so she presented to the hospital. She was placed on IV steroids as well as breathing treatments and azithromycin. She completed 5 days of azithromycin here in the hospital and is feeling much better today. She was ambulated yesterday and did not require oxygen either at rest or with ambulation in the afternoon. She does have 3 more days of 40 mg of prednisone at home therefore I recommend that she complete those 3 days and then do the taper I sent her of prednisone 30 mg daily for 3 days then 20 mg daily for 3 days then 10 mg daily for 3 days then 5 mg daily for 4 days. I do recommend outpatient follow-up with her PCP and I did refer her to pulmonology. I discussed with her the plan for discharge today and she expressed understanding of the risks and benefits of going home and would like to go home today. 2. A-fib, type 2 diabetes, coronary artery disease, CHF unknown type or all chronic medical conditions which complicate her care. Her home medications were continued where appropriate. I do recommend that she check her INR on and if it has improved since the antibiotics will be discontinued then she can resume her Coumadin at the discretion of her primary care doctor. INR yesterday was 3.5. Physical Exam Narrative General: Alert, Oriented x3, Cooperative, No apparent distress HEENT: Atraumatic, PERRLA, EOMI, Normocephalic Oral: Moist Mucosa Neck: Supple, No JVD Lungs: Diminished, Normal air movement, scattered rhonchi, wheeze, No rales Cardiovascular: Regular rate, Regular Rhythm, Normal S1, Normal S2, No murmurs Abdomen: Soft, Non Tender, Non-Distended, No Hepato-splenomegaly Extremities: No edema, Capillary Refill Less than 3 Seconds Skin: No rashes, No breakdown Musculoskeletal: No Tenderness to Palpation of Joints or Extremities Neurological: No focal neurological deficits, moves all extremities Psych/Mental Status: Normal Affect, Appropriate Weight / BMI Weight Weight: 188 lb Body Mass Index (BMI) 36.7 ABG / Lab / Microbiology Data 03/17/25 06:42 03/17/25 06:42 Laboratory: Laboratory Results - last 24 hr 03/17/25 11:13: POC Glucose 153 H 03/17/25 16:08: POC Glucose 153 H 03/17/25 21:04: POC Glucose 168 H 03/18/25 06:15: POC Glucose 125 H Microbiology: Microbiology 03/13/25 11:19 Mucosa - Nasopharyngeal Respiratory Panel (PCR) - Final Rhinovirus 03/13/25 11:19 Mucosa - Nasopharyngeal SARS-CoV-2, Influenza & RSV (PCR) - Final D/C Instructions Call your doctor if you observe: Fever of 101 or Higher, Shortness of breath, Dizziness, Fainting spells, Swelling in the ankles, Chest pain and Increased palpitations (irregular heartbeat) DC O2, CPAP, BIPAP Needs Home O2 Discharge instructions: No Meaningful Use Info Meaningful Use Meaningful Use Diagnoses (Choose all that apply): None applicable Discharge Plan Admission Admit Date/Time: 03/14/25 11:56 Attending Provider: Vipin Mendosa Primary Care Provider: Ronit Doan Consulting Providers: Francisco Godinez; Tj Chinchilla Discharge Orders/Prescriptions Prescriptions: New prednisone 10 mg tablet 10 mg PO DAILY Qty: 20 0RF Rx Instructions: Take 3 tablets daily for 3 days then 2 tablets daily for 3 days then 1 tablet daily for 3 days then half tablet daily for 4 days Continued Trelegy Ellipta 100-62.5-25 mcg blister with device 1 inh inhalation Q24H lisinopril 10 mg tablet 10 mg PO QDAY levalbuterol tartrate [Xopenex HFA] 45 mcg/actuation HFA aerosol inhaler 2 inh inhalation Q6H furosemide [Lasix] 40 mg tablet 40 mg PO QAM furosemide [Lasix] 20 mg tablet 20 mg PO QPM diltiazem HCl [Cardizem CD] 240 mg capsule,extended release 24hr 240 mg PO BID tramadol 25 mg tablet 25 mg PO Q6H PRN (Reason: pain) warfarin 2 mg tablet 2.5 mg PO .COMPLEX Rx Instructions: 2.5 mg orally mowefrsasu; esomeprazole magnesium [Nexium] 20 mg capsule,delayed release(DR/EC) 20 mg PO QDAY Probiotic 3 billion cell capsule 3,000 mmu cells PO QDAY Rx Instructions: administer with a meal cetirizine [Zyrtec] 10 mg tablet 10 mg PO QDAY PRN (Reason: allergy symptoms) acetaminophen [Tylenol] 325 mg tablet 325 mg PO ONCE PRN (Reason: pain) metformin 500 mg tablet extended release 24 hr 500 mg PO BID gabapentin 100 mg capsule 200 mg PO QHS ipratropium-albuterol 0.5 mg-3 mg(2.5 mg base)/3 mL solution for nebulization 3 ml inhalation PRN pravastatin 40 mg tablet 40 mg PO QHS warfarin 2.5 mg tablet 1.25 mg PO TUTH magnesium gluconate 27.5 mg magne- sium (500 mg) tablet 27.5 mg PO DAILY Discontinued prednisone 20 mg tablet 40 mg PO DAILY Referrals / Follow Up: Ricardo Angulo DO [Med Staff - Active Staff, Pulmonary Medicine] - Within 3 Months Ronit Doan DO [Primary Care Provider, Medical] - In 1 Week Disposition Disposition (needs filled in before D/C Order can be placed): Home, Self Care Charges/Coding Visit Charges Inpatient E&M: 22033 Disch Hosp >30min
--- NOTE | 2025-03-18 10:12 | PHA.DC_ITS ---
Pharmacy [facility] Counseling Pharmacy Service has performed discharge medication reconciliation and counseling for this patient. The patient's discharge medication list was reviewed for discrepancies and discrepancies were resolved. The patient was counseled on the following discharge medications and changes in medications for homegoing were reviewed. The Reason for Use, instructions for use, and potential side effects were reviewed for all new medications. The patient's questions regarding all of their medications were answered. 1. Loperamide 2 mg Q6 The patient was able to verbally demonstrate an understanding of their discharge medications. Medications at Discharge Home Medications acetaminophen 325 mg tablet (Tylenol) 325 mg PO ONCE PRN pain 07/11/24 cetirizine 10 mg tablet (Zyrtec) 10 mg PO QDAY PRN allergy symptoms 07/11/24 diltiazem HCl 240 mg capsule,extended release 24 hr (Cardizem CD) 240 mg PO BID 07/11/24 esomeprazole magnesium 20 mg capsule,delayed release (Nexium) 20 mg PO QDAY 07/11/24 fluticasone fur. 100 mcg-umeclid 62.5 mcg-vilant 25 mcg inhalat.powder (Trelegy Ellipta) 1 inh inhalation Q24H 07/11/24 furosemide 20 mg tablet (Lasix) 20 mg PO QPM 07/11/24 furosemide 40 mg tablet (Lasix) 40 mg PO QAM 07/11/24 lactobacillus combination no.4 3 billion cell capsule (Probiotic) 3,000 mmu cells PO QDAY 07/11/24 levalbuterol tartrate 45 mcg/actuation aerosol inhaler (Xopenex HFA) 2 inh inhalation Q6H 07/11/24 lisinopril 10 mg tablet 10 mg PO QDAY 07/11/24 tramadol 25 mg tablet 25 mg PO Q6H PRN pain 07/11/24 warfarin 2 mg tablet 2.5 mg PO .COMPLEX mowefrsasu 07/11/24 ipratropium 0.5 mg-albuterol 3 mg (2.5 mg base)/3 mL nebulization soln 3 ml i nhalation PRN 07/15/24 magnesium gluconate 27.5 mg magnesium (500 mg) tablet 27.5 mg PO DAILY 07/15/24 pravastatin 40 mg tablet 40 mg PO QHS 07/15/24 warfarin 2.5 mg tablet 1.25 mg PO TUTH 07/15/24 metformin 500 mg tablet,extended release 24 hr 500 mg PO BID 07/24/24 gabapentin 100 mg capsule 200 mg PO QHS 03/13/25 prednisone 10 mg tablet 10 mg PO DAILY #20 tabs 03/18/25
--- NOTE | 2025-03-18 10:14 | PHA.DC_ITS ---
Pharmacy [facility] Counseling Pharmacy Service has performed discharge medication reconciliation and counseling for this patient. The patient's discharge medication list was reviewed for discrepancies and discrepancies were resolved. The patient was counseled on the following discharge medications and changes in medications for homegoing were reviewed. The Reason for Use, instructions for use, and potential side effects were reviewed for all new medications. The patient's questions regarding all of their medications were answered. 1. Prednisone taper The patient was able to verbally demonstrate an understanding of their discharge medications. Medications at Discharge Home Medications acetaminophen 325 mg tablet (Tylenol) 325 mg PO ONCE PRN pain 07/11/24 cetirizine 10 mg tablet (Zyrtec) 10 mg PO QDAY PRN allergy symptoms 07/11/24 diltiazem HCl 240 mg capsule,extended release 24 hr (Cardizem CD) 240 mg PO BID 07/11/24 esomeprazole magnesium 20 mg capsule,delayed release (Nexium) 20 mg PO QDAY 07/11/24 fluticasone fur. 100 mcg-umeclid 62.5 mcg-vilant 25 mcg inhalat.powder (Trelegy Ellipta) 1 inh inhalation Q24H 07/11/24 furosemide 20 mg tablet (Lasix) 20 mg PO QPM 07/11/24 furosemide 40 mg tablet (Lasix) 40 mg PO QAM 07/11/24 lactobacillus combination no.4 3 billion cell capsule (Probiotic) 3,000 mmu cells PO QDAY 07/11/24 levalbuterol tartrate 45 mcg/actuation aerosol inhaler (Xopenex HFA) 2 inh inhalation Q6H 07/11/24 lisinopril 10 mg tablet 10 mg PO QDAY 07/11/24 tramadol 25 mg tablet 25 mg PO Q6H PRN pain 07/11/24 warfarin 2 mg tablet 2.5 mg PO .COMPLEX mowefrsasu 07/11/24 ipratropium 0.5 mg-albuterol 3 mg (2.5 mg base)/3 mL nebulization soln 3 ml inh alation PRN 07/15/24 magnesium gluconate 27.5 mg magnesium (500 mg) tablet 27.5 mg PO DAILY 07/15/24 pravastatin 40 mg tablet 40 mg PO QHS 07/15/24 warfarin 2.5 mg tablet 1.25 mg PO TUTH 07/15/24 metformin 500 mg tablet,extended release 24 hr 500 mg PO BID 07/24/24 gabapentin 100 mg capsule 200 mg PO QHS 03/13/25 prednisone 10 mg tablet 10 mg PO DAILY #20 tabs 03/18/25
== END 2025-03-18 13:22 | disposition home or self-care (01) | DRG 202 ==
LOC: ED 09:51 → MS3 10:37
PROVIDERS: Hospitalist; Emergency Provider Emergency Medicine; PCP Internal Medicine; Visit Provider Family Medicine
DX: J45.901 Unspecified asthma with (acute) exacerbation (principal); I48.19 Other persistent atrial fibrillation; B97.89 Other viral agents as the cause of diseases classified elsewhere; I11.0 Hypertensive heart disease with heart failure; I50.9 Heart failure, unspecified; E11.9 Type 2 diabetes mellitus without complications; K21.9 Gastro-esophageal reflux disease without esophagitis; I25.10 Atherosclerotic heart disease of native coronary artery without angina pectoris; Z79.51 Long term (current) use of inhaled steroids; Z90.710 Acquired absence of both cervix and uterus; Z79.01 Long term (current) use of anticoagulants; Z95.0 Presence of cardiac pacemaker; Z79.899 Other long term (current) drug therapy; Z90.49 Acquired absence of other specified parts of digestive tract; Z79.84 Long term (current) use of oral hypoglycemic drugs
CPT/HCPCS: 36415; 71046; 80048; 82962; 83880; 85025; 85027; 85610; 85730; 87631; 87633; 93005; 94640; 94668; 99284; A4216

== ENCOUNTER 2025-05-03 18:35 | Inpatient (IN) | payer MEDICARE, OTHER, SELFPAY ==
[2025-05-03] VITALS (8 sets, daily range): BP systolic 127–162; BP diastolic 42–76; PULSE 58–85; RESP 16–30; TEMP 36.6–37.1; O2SAT 92–98; BMI 35.9; BMI 36.1
--- NOTE | 2025-05-03 19:02 | EX.ED.DYSGE1 ---
HPI History of Present Illness Chief Complaint: Cough [facility] Medical History (Updated 03/26/25 @ 00:00 by Background Daemon) Hearing loss, left Hearing loss, right COPD (chronic obstructive pulmonary disease) Blood disorder Wears hearing aid Wears glasses Anxiety Arthritis Easy bruising Excessive bleeding Back pain Dietary restriction Gastric reflux Non-smoker Shortness of breath on exertion Asthma History of CHF (congestive heart failure) History of edema History of echocardiogram Hypertension Cardiology follow-up encounter History of pacemaker History of atrial fibrillation Abnormal ultrasound of breast Lump of right breast Abnormal mammogram Bilateral cataracts Home Medications ?Medication ?Instructions ?Recorded ?Last Taken ?Type acetaminophen 325 mg tablet 325 mg PO ONCE PRN pain 07/11/24 05/03/25 History (Tylenol) cetirizine 10 mg tablet (Zyrtec) 10 mg PO QDAY PRN allergy symptoms 07/11/24 05/03/25 History diltiazem HCl 240 mg 240 mg PO BID 07/11/24 05/03/25 History capsule,extended release 24 hr (Cardizem CD) esomeprazole magnesium 20 mg 20 mg PO QDAY 07/11/24 05/03/25 History capsule,delayed release (Nexium) fluticasone fur. 100 mcg-umeclid 1 inh inhalation Q24H 07/11/24 05/03/25 History 62.5 mcg-vilant 25 mcg inhalat.powder (Trelegy Ellipta) furosemide 20 mg tablet (Lasix) 20 mg PO QPM 07/11/24 05/03/25 History furosemide 40 mg tablet (Lasix) 40 mg PO QAM 07/11/24 05/03/25 History lactobacillus combination no.4 3 3,000 mmu cells PO QDAY 07/11/24 05/03/25 History billion cell capsule (Probiotic) levalbuterol tartrate 45 2 inh inhalation Q6H 07/11/24 05/03/25 History mcg/actuation aerosol inhaler (Xopenex HFA) lisinopril 10 mg tablet 10 mg PO QDAY 07/11/24 05/03/25 History tramadol 25 mg tablet 25 mg PO Q6H PRN pain 07/11/24 05/02/25 History warfarin 2 mg tablet 2.5 mg PO .COMPLEX mowefrsasu 07/11/24 05/03/25 History ipratropium 0.5 mg-albuterol 3 mg 3 ml inhalation PRN 07/15/24 05/03/25 History (2.5 mg base)/3 mL nebulization soln magnesium gluconate 27.5 mg 27.5 mg PO DAILY 07/15/24 05/03/25 History magnesium (500 mg) tablet pravastatin 40 mg tablet 40 mg PO QHS 07/15/24 05/03/25 History warfarin 2.5 mg tablet 1.25 mg PO TUTH 07/15/24 05/03/25 History metformin 500 mg tablet,extended 500 mg PO BID 07/24/24 05/03/25 History release 24 hr gabapentin 100 mg capsule 200 mg PO QHS 03/13/25 03/12/25 History Allergy/AdvReac Type Severity Reaction Status Date / Time cephalexin (From Keflex) Allergy Hives Verified 05/03/25 18:38 levofloxacin (From Levaquin) Allergy Hives Verified 05/03/25 18:38 Sulfa (Sulfonamide Allergy Hives Verified 05/03/25 18:38 Antibiotics) sulfamethoxazole (From Allergy Hives Verified 05/03/25 18:38 Bactrim) trimethoprim (From Bactrim) Allergy Hives Verified 05/03/25 18:38 Iodinated Contrast Media AdvReac Severe Other Verified 05/03/25 18:38 (contrast dye - iodinated) Family History Mother Breast cancer, Onset Age: 57 Sister Breast cancer Surgical History Status post right breast lumpectomy History of carotid endarterectomy H/O right breast biopsy H/O: hysterectomy Hx of cholecystectomy History of open heart surgery Social History Smoking Status: Never smoker alcohol intake: never substance use type: does not use EXAM Physical Exam Const Vital Signs: 05/03/25 18:36 Temperature 98.3 F Temperature Source Oral Pulse Rate 85 Respiratory Rate 16 Blood Pressure 140/68 H Blood Pressure Mean 92 Pulse Ox 96 Oxygen Delivery Method Room Air MDM MDM MDM Narrative Medical decision making narrative: HISTORY OF PRESENT ILLNESS: Chief complaint: Cough, shortness of breath 74-year-old female history of asthma/COPD, hypertension, CHF, type 2 diabetes, CAD, atrial fibrillation on warfarin presents with 2 days of cough. No she may have aspirated (2 days prior arrival). Since that time she has had increasing cough and shortness of breath. Denies leg swelling. Denies vomiting. Denies chest pain. Notes compliance with warfarin. Notes no missed doses. Denies any other PE risk factors. REVIEW OF SYSTEMS: Pertinent positives: Shortness of breath, cough Pertinent negatives: As per HPI PHYSICAL EXAM: Nursing triage notes reviewed, Vital signs reviewed Constitutional: please see [facility] HENT: MMM Eyes: Pupils equal round and reactive to light, Extraocular muscles intact Neck: No stridor, no JVD, full neck ROM Lungs: Slight end expiratory wheezing noted bilaterally,. No increased work of breathing, no conversational dyspnea, no accessory muscle use, no nasal flaring. No respiratory distress noted Heart: Regular rate and rhythm, No murmurs, No rubs and No gallops, 2+ distal pulses (radial, femoral, posterior tibial) in all extremities Abdomen: Soft, there is no tenderness, rigidity, rebound or guarding, no obvious peritoneal signs, no palpable pulsatile abdominal masses, no auscultated abdominal bruit : No CVAT Extremities: No edema Neuro: No new focal neurological deficits, cranial nerves II through XII intact, 5/5 strength in all present extremities. Intact sensation to light touch in all present extremities, 2+ reflexes bilateral patella tendons. Skin: No rash or lesions noted MEDICAL DECISION MAKING: Chief Complaint: please see HPI External records reviewed: Patient was recent admitted in March 2025 for an asthma exacerbation. Reviewed prior cardiac testing. No recent echocardiograms noted Factors affecting care: As per HPI Social determinants of health: none History obtained from others: none Consults: Hospitalist (Dr. Sagar Yeh) [facility] Narrative: The patient was initially hemodynamically stable, afebrile and nontoxic-appearing. Exam with bilateral wheezing. No lower extremity edema. I considered the following differential diagnosis: Viral illness, pneumonia, COPD exacerbation I obtained a broad lab and imaging work to further determine if the patient was suffering from a life-threatening etiology. Initially treated the patient with Tessalon Lacey, Kelton breathing treatment, Solu-Medrol. ALL IMAGES (IF OBTAINED) HAVE BEEN PERSONALLY REVIEWED AND INTERPRETED BY MYSELF. EKG with rate controlled a flutter rate of 67, left axis deviation, slightly prolonged QTc of 41, no obvious Viral swab positive for influenza A this is likely etiology of her complaints along with COPD exacerbation I have personally reviewed the patient's chest x-ray. Shows cardiomegaly and pulmonary vascular congestion CBC with leukocytosis suggestive of systemic inflammation, mild anemia but no thrombocytopenia noted INR subtherapeutic BMP without evidence of significant electrolyte abnormalities, no anion gap, no acute kidney injury. High-sensitivity troponin is negative, no evidence of myocardial ischemia The patient was ambulated in the ED with significant hypoxia dropping to 88%. She does not wear oxygen at home. Given hypoxia, and history of COPD/asthma and fluid positive she will require inpatient admission. She was given Tamiflu prophylactically. Discussed with hospitalist who agreed to admit the patient to [facility] floor. The patient and/or family, caregivers express understanding. The patient and/or family, caregivers agrees with the plan. Shared decision making: I will have a discussion with the patient and or visitors regarding risk/benefits of further testing or admission. They will be made aware of of the risk/benefits inherent in this decision they will be given the opportunity to voice understanding. Total critical care time today provided was at least 0 minutes. This excludes separately billable procedures. Critical care time (if documented) is secondary to the patient having high probability of clinically significant/life threatening deterioration in the patient's condition which required my urgent intervention. Impression: 1. Influenza A 2. Hypoxia 3. COPD exacerbation Dispo: Admit to [facility] floor This note was generated with Casper dictation software. It may contain incorrect words, spelling, and punctuation that were not noted in review of the chart prior to signing. Discharge Plan Triage Chief Complaint: Cough ED Provider: Sarath Rivas Dx/Rx/DC Orders Prescriptions: No Action Trelegy Ellipta 100-62.5-25 mcg blister with device 1 inh inhalation Q24H lisinopril 10 mg tablet 10 mg PO QDAY levalbuterol tartrate [Xopenex HFA] 45 mcg/actuation HFA aerosol inhaler 2 inh inhalation Q6H furosemide [Lasix] 40 mg tablet 40 mg PO QAM furosemide [Lasix] 20 mg tablet 20 mg PO QPM diltiazem HCl [Cardizem CD] 240 mg capsule,extended release 24hr 240 mg PO BID tramadol 25 mg tablet 25 mg PO Q6H PRN (Reason: pain) warfarin 2 mg tablet 2.5 mg PO .COMPLEX Rx Instructions: 2.5 mg orally mowefr; esomeprazole magnesium [Nexium] 20 mg capsule,delayed release(DR/EC) 20 mg PO QDAY Probiotic 3 billion cell capsule 3,000 mmu cells PO QDAY Rx Instructions: administer with a meal cetirizine [Zyrtec] 10 mg tablet 10 mg PO QDAY PRN (Reason: allergy symptoms) acetaminophen [Tylenol] 325 mg tablet 325 mg PO ONCE PRN (Reason: pain) metformin 500 mg tablet extended release 24 hr 500 mg PO BID gabapentin 100 mg capsule 200 mg PO QHS ipratropium-albuterol 0.5 mg-3 mg(2.5 mg base)/3 mL solution for nebulization 3 ml inhalation PRN pravastatin 40 mg tablet 40 mg PO QHS warfarin 2.5 mg tablet 1.25 mg PO TUTH Rx Instructions: tuthursatsun magnesium gluconate 27.5 mg magne- sium (500 mg) tablet 27.5 mg PO DAILY Primary Care Provider: Ronit Doan Referrals: Ronit Doan DO [Primary Care Provider, Medical] Print Language: Yi
--- OUTSIDE RECORDS SUMMARY | 2025-05-03 19:02 | XMS RPT_ITS | CCD ---
Author Organization [facility] Care Team Providers Care Pipe And Boiler Covers Supervisor Name Role Phone Ayde Jacobo Unavailable Unavailable MarianaAj Unavailable Unavailable Gliner, Ori Unavailable Unavailable Donnell Ayde E Unavailable Unavailable Mariana, Aj Unavailable Unavailable Ramicone, Timothy Unavailable Unavailable Gliner, Ori Unavailable Unavailable Collin Kevin Unavailable Unavailable Ramicone, Timothy Unavailable Unavailable Ramicone, Timothy Unavailable Unavailable Collin Kevin Unavailable Unavailable Ramicone, Timothy Unavailable Unavailable Paul Muller Unavailable Unavailable Ansari, Shantel Unavailable Unavailable Tyneski, Katharine Unavailable Unavailable Tyneski, Katharine K Unavailable Unavailable Mandat, Ruma E Unavailable Unavailable Gliner, Ori Unavailable Unavailable Ramicone, Timothy Unavailable Unavailable Ramicone, Timothy Unavailable Unavailable Tyneski, Katharine Unavailable Unavailable Scotty Shelley Unavailable Unavailable PATIENT, SELF Referring Unavailable PROVIDER, UNKNOWN Admitting Unavailable PROVIDER, UNKNOWN Attending Unavailable NIKKI, RUMA E. Primary Care Unavailable Ansari, Shantel Unavailable Unavailable Ramicone DO Timothy Unavailable Unavailable Tyneski ENGINEERING PROGRAM ANALYST-ADMINISTRATIVE JOB TITLES, Katharine Unavailable Unavai lable Tyneski, Katharine K Unavailable Unavailable Mandat, Ruma E Unavailable Unavailable Gliner, Ori Unavailable Unavailable Tyneski, Katharine K Unavailable Unavailable Unavailable Ronit Doan Unavailable Ronti Doan Unavailable Jaylon Kiser Unavailable Timothy Palacio Unavailable Juan Antonio, [facility] Unavailable Unavailable Charline Hagen Unavailable Ronit Doan DO Primary Care Provider [phone] Ronit Doan DO Unavailable Luba, Dr. Timothy Perez Attending Unavailabl e [...] Dr. Ronit Ordonez Primary Care Unavailabl e Irineo BEACH Tod Unavailable JayantLien chan Unavailable Olimpia, Dr. Ronit Ordonez Attending Unavailabl [...] Dr. Ronit Ordonez Primary Care Unavailabl e Roncayetano, Dr. Ronit Ordonez Attending Unavailabl e Roncayetano, Dr. Ronit Ordonez Primary Care Unavailabl e Olimpia, Dr. Ronit Ordonez Attending Unavailabl e Roncayetano, Dr. Ronit Ordonez Primary Care Unavailabl e Roncayetano, Dr. Ronit Ordonez Attending Unavailabl e Roncayetano, Dr. Ronit Ordonez Primary Care Unavailabl e [...] Olimpia, Dr. Ronit Ordonez Attending Unavailabl e Roncayetano, Dr. Ronit Ordonez Primary Care Unavailabl e Olimpia, Dr. Ronit Ordonez Primary Care Unavailabl e Uljaylin, Charline Referring Unavailable Ulatopatrick, Charline Attending Unavailable Roncayetano, Dr. Ronit Ordonez Primary Care Unavailabl e Ulatopatrick, Charline Referring Unavailable Ulatowski, Charline Attending Unavailable Roncayetano, Dr. Ronit Ordonez Attending Unavailabl e Olimpia, Dr. Ronit Ordonez Referring Unavailabl e Olimpia, Dr. Ronti Ordonez Primary Care Unavailabl e Olimpia, Dr. Ronit Ordonez Attending Unavailabl e Roncayetano, Dr. Ronit Ordonez Referring Unavailabl e Olimpia, Dr. Ronit Ordonez Primary Care Unavailabl e Olimpia, Dr. Ronit Ordonez Attending Unavailabl e Olimpia, Dr. Ronit Ordonez Referring Unavailabl e Roncayetano, Dr. Ronit Ordonez Primary Care Unavailabl e Olimpia, Dr. Ronit Ordonez Primary Care Unavailabl e Olimpia, Dr. Ronit Ordonez Attending Unavailabl e Olimpia, Dr. Ronit Ordonez Primary Care Unavailabl e Olimpia, Dr. Ronit Ordonez Attending Unavailabl e Roncayetano, Dr. Ronit Ordonez Attending Unavailabl e Roncayetano, Dr. Ronit Ordonez Primary Care Unavailabl e Ronyak, Dr. Ronit Ordonez Attending Unavailabl e Ronyajoni, Dr. Ronit Ordonez Primary Care Unavailabl e Roncayetano, Dr. Ronit Ordonez Attending Unavailabl e Ronyak, Dr. Ronit Ordonez Primary Care Unavailabl e Olimpia, Dr. Ronit Ordonez Primary Care Unavailabl e Olimpia, Dr. Ronit Ordonez Attending Unavailabl e Ramicone, Timothy Attending Unavailable Ronyajoni, Dr. Ronit Ordonez Primary Care Unavailabl e Roncayetano, Dr. Ronit Ordonez Attending Unavailabl e Roncayetano, Dr. Ronit Ordonez Primary Care Unavailabl e Roncayetano, Dr. Ronit Ordonez Attending Unavailabl e Roncayetano, Dr. Ronit Ordonez Primary Care Unavailabl e Roncayetano, Dr. Ronit Ordonez Primary Care Unavailabl e Roncayetano, Dr. Ronit Ordonez Attending Unavailabl e Olimpia, Dr. Ronit Ordonez Attending Unavailabl e Olimpia, Dr. Ronit Ordonez Primary Care Unavailabl e Olimpia, Dr. Ronit Ordonez Attending Unavailabl e Roncayetano, Dr. Ronit Ordonez Primary Care Unavailabl e Olimpia, Dr. Ronit Ordonez Attending Unavailabl e Olimpia, Dr. Ronit Ordonez Primary Care Unavailabl e Olimpia, Dr. Ronit Ordonez Attending Unavailabl e Olimpia, Dr. Ronit Ordonez Primary Care Unavailabl e Charline Hagen DO S Unavailable Timothy Palacio DO Unavailable Unavailable Primary Care Provider UnavailKIRA Leonard Admitting Unavailable RONIT DOAN Primary Care Unavailable WASHINGTON HAIDER Attending Unavailable Shanique Sebastian LPN Unavailable Unavailable Unavailable Primary Care Provider Unavailabl e PHYSICIAN, NONE Primary Care Physician Unavailab le PHYSICIAN, NONE Primary Care Unavailable ZAK LEPE MD Attending Unavailable Ronit Doan DO Primary Care Provider Ronit Doan DO Unavailable [phone] Charline Hagen DO S Unavailable Timothy Palacio DO Unavailable Ronyak DO, Ronit A Unavailable Shari KAUR, Dr. Nawaf Mukherjee Attending Provider Olimpia BEACH, Dr. Cottrell Primary Care Provider Olimpia [place], Dr. Cottrell Referring Provider [phone] Shari KAUR, Dr. Nawaf Mukherjee Referring Provider Shari KAUR, Dr. Nawaf Mukherjee Other Provider [phone] HÉCTOR FAIRCHILD Attending Unavailable RONYAK, RONIT Primary Care Unavailable SIXTO WYATT MD Attending Unavailable RONYAK, RONIT Primary Care Unavailable RONYAK, RONIT Primary Care Unavailable WOLOSZYN ADMINISTRATIVE JOB TITLES, FELISHA Attending Unavailabl e RONYAK, RONIT Primary Care Unavailable WOLOSZYN ADMINISTRATIVE JOB TITLES, FELISHA Referring Unavailabl e RONYAK, RONIT Primary Care Unavailable RONYAK, RONIT Primary Care Unavailable RONYAK, RONIT Primary Care Unavailable WOLOSJuancarlosYN ADMINISTRATIVE JOB TITLES, FELISHA Attending Unavailabl e WOLOSZYN ADMINISTRATIVE JOB TITLES, FELISHA Referring Unavailabl e RONYAK, RONIT A Referring Unavailable RONYAK, RONIT A Primary Care Unavailable RONYAK, RONIT A Referring Unavailable RONYAK, RONIT A Primary Care Unavailable RONYAK, RONIT A Primary Care Unavailable TIMOTHY PALACIO Referring Unavailable RONYAK, RONIT A Primary Care Unavailable LALITICONTIMOTHY Carlson Attending Unavailable MOSESYAK, RONIT A Primary Care Unavailable CHARLINE HAGEN Attending Unavailable CHARLINE HAGEN Referring Unavailable RONYAK, RONIT A Primary Care Unavailable RONYAK, RONIT A Referring Unavailable RONYAK, RONIT A Primary Care Unavailable RONYAK, RONIT A Referring Unavailable RONYAK, RONIT A Primary Care Unavailable RAMICONTIMOTHY Carlson Referring Unavailable RONYAK, RONIT A Primary Care Unavailable JAYLON KISER Referring Unavailable RONYAK, RONIT A Primary Care Unavailable RAMICONTIMOTHY Carlson Referring Unavailable RONYAK, RONIT A Primary Care Unavailable RAMICONTIMOTHY Carlson Referring Unavailable RONYAK, RONIT A Primary Care Unavailable TIMOTHY PALACIO Referring Unavailable RONYAK, RONIT A Primary Care Unavailable Ronyak, Ronit Primary Care Unavailable Vipin Mendosa Attending Unavailable Jopperi, Francisco Consulting Unavailable Jopperi, Francisco Admitting Unavailable Mosteller, Tj Consulting Unavailable Vipin Mendosa Consulting Unavailable Wanek, Nawaf A Attending Unavailable Ronyak, Ronit Referring Unavailable Ronyak, Ronit Primary Care Unavailable Wanek, Nawaf A Attending Unavailable Ronyak, Ronit Referring Unavailable Ronyak, Ronit Primary Care Unavailable Wanek, Nawaf A Referring Unavailable Wanek, Nawaf A Attending Unavailable Wanek, Nawaf A Consulting Unavailable Ronyak, Ronit Primary Care Unavailable Mosteller, Tj Attending Unavailable Jopperi, Francisco Attending Unavailable Wanek, Nawaf A Referring Unavailable Wanek, Nawaf A Attending Unavailable Ronyak, Ronit Primary Care Unavailable Jopperi, Francisco Consulting Unavailable Ronyak, Ronit Primary Care Unavailable Vipin Mendosa Attending Unavailable Jopperi, Francisco Admitting Unavailable Mosteller, Tj Consulting Unavailable Jopperi, Francisco Consulting Unavailable Ronyak, Ronit Primary Care Unavailable Jopperi, Francisco Admitting Unavailable Jopperi, Francisco Attending Unavailable Ronyak, Ronit Primary Care Unavailable Jopperi, Francisco Attending Unavailable RONYAK, RONIT A Primary Care [...] Unavailable RONYAK, RONIT A Primary Care Unavailable RONIT DOAN Primary Care Unavailable RONIT DOAN Referring Unavailable Allergies Allergy Classification Reported Allergen(s) Allergy Type Date of Onset Reaction(s) Facility Cephalosporins (antibiotic) (9 sources) Cephalexin; Translations: [Keflex] Drug Allergy [facility] Work Phone: Contrast Media (9 sources) Contrast media Substance Allergy [facility] Work Phone: Quinolones (antibiotic) (9 sources) levoFLOXacin; Translations: [Levaquin] Drug Allergy [facility] Work Phone: Sulfonamides (antibiotic) (9 sources) Sulfonamides (Antibiotic); Translations: [Sulfa Drugs] Drug Allergy [facility] Work Phone: (1 source) cephalexin Drug Allergy 12-14-19 17 [facility] Repository (7 sources) cephalexin; Translations: [CEPHALEXIN] Drug Allergy 06-05-19 10 [facility] Repository (1 source) Cephalosporins (Antibiotic) Drug allergy (disorder) 12-14-19 17 [facility] Repository (8 sources) levoFLOXacin; Translations: [LEVOFLOXACIN] Drug Allergy 05-29-19 07 [facility] Repository (7 sources) Sulfonamides (Antibiotic); Translations: [SULFA (SULFONAMIDE ANTIBIOTICS)] Drug allergy (disorder) 05-30-19 07 [facility] Repository (2 sources) Iodinated Contrast- Oral and IV Dye Drug allergy (disorder) 12-14-19 17 [facility] Repository (20 sources) Cephalexin; Translations: [KEFLEX] Drug Allergy 06-05-19 10 Rash [facility] [place] Repository (20 sources) Contrast media allergy to substance [facility] Work Phone: (20 sources) levoFLOXacin; Translations: [Levaquin] Drug Allergy [facility] Work Phone: (20 sources) Sulfonamides (Antibiotic); Translations: [Sulfa Drugs] drug allergy Rash [facility] Work Phone: (1 source) Sulfonamides (Antibiotic); Translations: [SULFA ANTIBIOTICS] Propensity to adverse reactions to drug (disorder) 09-28-19 08 [facility] (20 sources) IODINATED CONTRAST MEDIA; Translations: [IODINATED CONTRAST MEDIA] Propensity to adverse reactions to drug (disorder) 09-28-19 08 Unknown [facility] Comment on above: syncope (20 sources) Sulfamethoxazole / Trimethoprim; Translations: [Bactrim] Drug Allergy 06-29-19 23 Rash, Unknown [facility] Work Phone: (1 source) Contrast media Unknown [facility] Other Phone (unformatted): [phone] Comment on above: States that she pass ed out (1 source) Sulfamethoxazole / Trimethoprim Drug Allergy Rash [facility] Other Phone (unformatted): [phone] (20 sources) Cephalexin Drug Allergy 06-05-19 10 Unknown, Other, Hives [facility] (20 sources) levoFLOXacin Drug Allergy 05-29-19 07 Rash, Hives, Other [facility] Work Phone: (20 sources) Sulfonamides (Antibiotic) Drug Allergy 05-30-19 07 [facility] Work Phone: (1 source) Sulfonamides (Antibiotic) Propensity to adverse reactions (disorder) [facility] (12 sources) Acyclovir; Translations: [ACYCLOVIR] Drug Allergy 03-15-20 13 Vomiting [facility] (12 sources) Digoxin; Translations: [DIGOXIN] Drug Allergy 05-30-19 07 [facility] (12 sources) Propranolol; Translations: [PROPRANOLOL HCL] Drug Allergy 05-30-19 07 [facility] (3 sources) dye [Other] Propensity to adverse reactions 05-30-19 07 [facility] (5 sources) Sulfamethoxazole / Trimethoprim; Translations: [SULFAMETHOXAZOLE-T RIMETHOPRIM] Drug Allergy 06-29-19 23 [facility] Repository (1 source) Contrast media; Translations: [iodinated radiocontrast agents] Drug allergy [facility] (3 sources) Sulfamethoxazole; Translations: [sulfamethoxazole] Drug Allergy 07-18-19 [facility] (2 sources) Sulfonamides (Antibiotic) Allergy to substance 07-18-19 [facility] (2 sources) Trimethoprim Drug Allergy 07-18-19 [facility] (1 source) Sulfamethoxazole Drug Allergy 03-13-20 [facility] Repository (1 source) Trimethoprim Drug Allergy 03-13-20 [facility] Repository Medications Current Medications Medication Drug Class(es) [...] 1 Refills: 3 Katharine Rey Start : 11-Jun-2019 Active 25 x 3 ML Plas Cont Start: 10-16-2018 take 1-2 puff(s) by inhalation every six hours as needed Ventolin HFA 108 (90 Base) MCG/ACT Inhalation Aerosol Solution INHALE 1 TO 2 PUFFS EVERY 6 HOURS NEEDED. Quantity: 1 Refills: 3 Yordy VIOLETKatharine Start : 16-Oct-2018 Active 8 GM Inhaler [...] 180 mL 3 04/16/2024 Active Start: 01-03-2024 Kelton Fritz ed, QID, 0 Refill(s) Start Date: 01/03/24 [...] SHORTNESS OF BREATH Quantity: 1 Refills: 2 Yordy FINKNJuaniREGINOKatharine Start : 16-Jul-2019 Active 60 x 3 [...] complication, without long-term current use of insulin ([facility]) , Cardiac pacemaker in situ , Facet syndrome , Benzodiazepine contract exists Take by mouth. Active Bacillus coagula ns (PROBIOTIC, B. 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 Indications: CAD, multiple vessel , Atrial fibrillation, unspecified type (HCC) , Anxiety disorder in conditions classified elsewhere , Type 2 diabetes mellitus without complication, without long-term current use of insulin ([facility]) , Cardiac pacemaker in situ , Facet [...] complication, without long-term current use of insulin ([facility]) , Cardiac pacemaker in situ , Facet [...] mg Start: 08-01-2018 take 2 puff(s) by [facility] twice daily Pulmicort Flexhaler 90 MCG/ACT Inhalation [...] 1:00am Start: 08-01-2018 take 1 capsule by [facility] once daily cetirizine (ZyrTEC) 10 mg capsule [...] capsule (20 sources) Calcium Channel Aaron Start: take 1 capsule by mouth every twelve hours dilTIAZem CD (Cardizem CD) 240 mg 24 hr capsule Indications: Atrial fibrillation, unspecified type (Multi) Take 1 capsule (240 mg) by mouth every 12 hours. 180 capsule 3 12/18/2024 Active Start: 07-11-2024 take 1 capsule by mo ut twice daily, then take 1 capsule by mouth every twenty-four hours Diltiazem Hcl (Cardizem Cd) 240 mg capsule,extended release 24hr Active 240 mg PO TWICE A DAY July 11, 2024 1:00am Start: 01-03-2024 Cardizem 0 Ref ill(s) Start Date: 01/03/24 Status: Ordered Start: 09-19-2023 take 1 capsule by mo [facility] every twelve hours dilTIAZem CD (Cardizem CD) [...] Start: 11-01-2022 take 2 capsules by m [facility] every twelve hours dilTIAZem CD (Cardizem CD) 240 mg 24 hr capsule Take 2 capsules (480 mg) by mouth every 12 hours. 0 11/01/2022 Active Start: 05-17-2019 take 1 capsule by mo ut every twelve hours dilTIAZem HCl ER Beads [...] clinician) Start: 06-29-2022 take 1 capsule by mo [facility] once daily Doxycycline Hyclate 100 MG Oral Capsule TAKE 1 CAPSULE EVERY 12 HOURS DAILY. Quantity: 10 Refills: 0 Ordered: 29-Jun-2022 Ronit Doan DO Start : 29-Jun-2022 Active Start: 04-03-2018 take 1 capsule by mo ut twice daily doxycycline monohydrate (MONODOX) 100 mg capsule Take 1 capsule by mouth twice daily. 14 capsule 1 04/03/2018 Active Comment on above: Take 1 capsule by mo [facility] twice daily. esomeprazole 20 mg delayed release [...] 1 puff(s) by in halation once daily gcoimocxufm-ejbvxwhad-uyradlaj (Trelegy Ellipta) 200-62.5-25 mcg blister with device Inhale 1 puff once daily. 0 Suspended take 1 puff(s) by in halation once daily dmcryajyqgj-hgiqvigzt-gvhxcwnr (Trelegy Ellipta) 200-62.5-25 mcg blister with device [...] by mouth once d aily. lactobacillus acidophilus [id number] unt / pectin 100 mg oral capsule [...] tablet 3 11/19/2024 Active Start: 01-03-2024 lisinopril Ora l, qDay, 0 Refill(s) Start Date: 01/03/24 Status: [...] 400 mg, oral, Daily, First dose on 04/24/23 at 0900 Start: 08-01-2018 take 1 capsule by mo uth once daily magnesium oxide 500 mg capsule [...] with one year of refills 1 each 10/15/2024 Active Start: 06-23-2023 nebulizer acce ssories [...] Please contact patient when ready. Please call [phone] with problems 1 each 5 08/25/2022 12/15/2022 Discontinued (Therapy completed) Start: 08-25-[address] [facility] Indications: Moderate persistent asthma without complication 1 each every 6 hours if needed (with nebulizer). Dispense whatever quantity of tubing and mouthpiece that are covered by pt insurance. Please contact patient when ready. Please call [phone] with problems 1 each 5 08/25/2022 Active nitroglycerin 0.4 mg sublingual tablet (20 sources) Nitrate Vasodilator Start: 04-24-2023 0.4 mg, more blingual, Every 5 min PRN, chest pain, Starting on Mon04/24/23 at 0455 May administer up to 3 [...] tab PO qd in morning. 30 tablet 08/24/2016 Active Comment on above: Take 1 tab PO qd in morning. polyethylene glycol 3350 04360 mg powder for oral solution (1 source) [...] tablet Indications: Atherosclerosis of coronary artery of [place] heart, unspecified vessel or lesion type, unspecified [...] Active 1.25 mg PO every Monday, , , Sat July 15, 2024 12:00am Start: 07-11-2024 Warfarin 2 mg tablet Active 2.5 mg PO MOWEJuly 11, 2024 1:00am Start: 01-03-2024 Coumadin Oral, [...] vane th every afternoon. (1 source) Orlando Kim, Inhaler Completed/Discontinued Medications Medication Drug Class(es) Dates Sig (Normalized) Sig (Original) amoxicillin 500 mg oral tablet (3 sources) Penicillin-class Antibacterial Start: 07-16-2019 Amoxicillin 500 MG Oral Tablet take four tablets prior to dental procedure Quantity: 4 Refills: 4 Katharine Rey Start : 16-Jul-2019 Active azithromycin 250 mg [...] 1 capsule by mo uth once daily Black Cohosh Hot Flash Relief [...] Start: 08-01-2018 take 1 capsule by mo [facility] once daily Vitamin D3 125 MCG (5000 UT) Oral Capsule TAKE 1 CAPSULE Daily Quantity: 0 Refills: 0 Ordered: 01-Aug-2018 DO Start : 01-Aug-2018 Active Start: 06-21-2017 take 1 tablet by vane once daily cholecalciferol (VITAMIN D3) 2,000 unit [...] complication, without long-term current use of insulin ([facility]) , Cardiac pacemaker in situ , Facet [...] 08/23/2024 08/26/2024 Discontinued take 1 capsule by [facility] three times daily gabapentin (Neurontin) 100 mg [...] Active Start: 01-07-2021 take 2 tablets by [facility] at mealtime methylPREDNISolone 4 MG Oral Tablet Therapy Pack follow directions on pack. Take each dose with food. Quantity: 1 Refills: 0 Ordered: 07-Jan-2021 [place]lim[place]ia [place] Ronit Start : 07-Jan-2021 Active Start: 10-27-2020 methylPREDNISo lone 4 MG Oral Tablet Therapy Pack Take pack as directed on labeling. Quantity: 1 Refills: 0 Ordered: 27-Oct-2020 Morrow Migdalia BEACH Start : 27-Oct-2020 Active mupirocin 0.02 mg/mg [...] Active Start: 01-23-2013 take 1 capsule by [facility] once daily omeprazole (PRILOSEC) 20 mg capsule Take 1 capsule by mouth once daily. 30 capsule 5 01/23/2013 Active Comment on above: Take 1 capsule by [facility] once daily. penicillin v potassium 500 mg [...] Active Start: 04-14-2022 take 4 tablets by [facility] once daily, then take 3 tablets by [...] days. Quantity: 30 Refills: 0 Ordered: 14-Apr-2022 Ronit Doan DO Start : 14-Apr-2022 Active Start: 07-15-2021 predniSONE [...] DAYS, THEN STOP. Quantity: 30 Refills: 0 Jefersonkhalifscar VIOLETJohnKatharine Start : 28-Jun-2019 Active Probiotic Oral Tablet [...] TO AFFECTED AREA(S). Quantity: 1 Refills: 0 Jefersonkhalifscar Katharine LAZO Start : 16-Apr-2019 Active 15 GM Tube [...] mild CHF per CXR /BNP on 03/06/21 General admitIncreased diureticAdded lisnopril for better BP control-Watch salt intake; Had mild CHF per CXR /BNP on 03/06/21 General admitIncreased diureticAdded lisnopril for better BP control-No overt signs volume overload per examWatch salt intake; Congestive heart failure; nonhypertensive (1 source) Congestive heart failure; nonhypertensive 07-30-2021 Coronary atherosclerosis and other heart disease (20 sources) Coronary arteriosclerosis; Translations: [Coronary atherosclerosis of unspecified type of vessel, [place] or graft] Onset: 9 08-12-2022 Chronic Comment on above: Admitted 03/06/21 wi th SOB/elevated xyvjkdrp16/1/21 cardiac cath with moderate non-obstructive dzOn diltazem/statin/Xarelto-provide SL NTG-follow.; Admitted 03/06/21 wi th SOB/elevated pynvymnd31/1/21 cardiac cath with moderate non-obstructive dzOn diltazem/statin/Xarelto/statin-provide SL NTG-follow.; Admitted 03/06/21 wi th SOB/elevated nmetevxi75/1/21 cardiac cath with moderate non-obstructive dzNo current [...] low intensity sta tin-has not tolerated high htzifeyxw02/1/21 AVRYR=070,LDL=67,UA=491-ly has some CAD will increase Prav; On lmoderate intensi ty statin-has not tolerated high intensity09/2021 LDL=50,ZU=012; On lmoderate intensi ty statin-has not tolerated high fdomucvht17/2023 LDL=56; Pt with CV dz and el [...] Comment on above: BP not optimal-add l qpboqktao52/31/21 BMP OK; SBP borderlineWeight loss/Salt restriction; BP [...] 5 07-30-2021 Chronic Comment on above: S/P 07/30/21 L CEAOn Xarelto /statin; S/P 07/30/21 L CEAOn Xarelto /statin01/2022 carotid duplex with less than 50% stenosis B/L; S/P 07/30/21 L CEAOn Xarelto /statin08/2022 carotid duplex with less than 50% stenosis B/L; Osteoarthritis (20 sources) Degenerative joint disease involving multiple joints; Translations: [Osteoarthrosis, generalized, multiple sites] Onset: 2 Resolved: 3 08-12-2022 Chronic Other aftercare (1 source) Anticoagulant effect; Translations: [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] 08-12-2022 Episodic Other [...] Resolved: 3 Episodic Other aftercare (5 sources) skilled nursing (current) use of anticoagulants; Translations: [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] Onset: 2 Episodic Other aftercare (3 sources) 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; Translations: [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] Onset: 2 Episodic Other aftercare (2 sources) Encounter for surgical aftercare following surgery on the circulatory system; Translations: [Encntr for surgical aftcr following surgery on the circ sys] Onset: 2 Episodic Other aftercare (20 sources) Long-term current use of anticoagulant; Translations: [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] Onset: 3 Resolved: 4 02-01-2023 Episodic Other aftercare (15 sources) Drug therapy finding; Translations: [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] Onset: 3 02-11-2024 Episodic Other aftercare (14 sources) Taking high risk medication; Translations: [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] Onset: 5 05-23-2024 Episodic [...] Test Name Value Interpretation Reference Range Facility Bedside Glucoseon 03-18-2025 [facility] GLU 155 mg/dL High 74-106 [facility] Comment on above: Result Comment: LEENA GEMENT OF PATIENT CARE PER NURSING PROTOCOL Performed By: #### L 501.080 #### [facility] [address] [place], [address] FINGERSTICK GLU 125 mg/dL High 74-106 [facility] Comment on above: Result Comment: LEENA GEMENT OF PATIENT CARE PER NURSING PROTOCOL Performed By: #### L 501.080 #### [facility] [address] [place], [address] Discharge Instructionon 03-08 Discharge Instruction [facility] Medical Records Department [address] [place] [address] Instructions for Home/Discharge Instructions 03/18/25 0705 MR#: [id number] Acct: [id number] Name: PAU MUÑOZ Rep #: [id number] : 1950 74 From: Vipin Mendosa MD PCP: Dr. Ronit Doan, DO Status:ADM IN Discharge Instructions DC O2, CPAP, BIPAP needs Home O2 Discharge instructions: No Dressing / Incision Discharge Activity: Return to Normal Activity Dressing / Incision Call your doctor if you observe: Fever of 101 or Higher, Shortness of breath, Dizziness, Fainting spells, Swelling in the ankles, Chest pain and Increased palpitations (irregular heartbeat) Follow Up Care Test Results: Test results from this visit will be discussed in further detail at your follow-up appointment, if applicable. Discharge Plan Admission Admit Date/Time: 03/14/25 11:56 Attending Provider: Vipin Mendosa Primary Care Provider: Ronit Doan Consulting Providers: Francisco Godinez; Tj Chinchilla Discharge Orders/Prescriptions Prescriptions: New prednisone 10 mg tablet 10 mg PO DAILY Qty: 20 0RF Rx Instructions: Take 3 tablets daily for 3 days then 2 tablets daily for 3 days then 1 tablet daily for 3 days then half tablet daily for 4 days Continued Trelegy Ellipta 100-62.5-25 mcg blister with [...] warfarin 2 mg tablet 2.5 mg PO .COMPLEX Rx Instructions: 2.5 mg orally mowefrsasu; esomeprazole magnesium [Nexium] 20 mg capsule,delayed release(DR/EC) 20 mg PO QDAY Probiotic 3 billion cell capsule 3,000 mmu cells PO QDAY Rx Instructions: administer with a meal cetirizine [Zyrtec] 10 mg tablet 10 mg PO QDAY PRN (Reason: allergy symptoms) acetaminophen [Tylenol] 325 mg tablet 325 mg PO ONCE PRN (Reason: pain) metformin 500 mg tablet extended release 24 hr 500 mg PO BID gabapentin 100 mg capsule 200 mg PO QHS ipratropium-albuterol 0.5 mg-3 mg(2.5 mg base)/3 mL solution for nebulization 3 ml inhalation PRN pravastatin 40 mg tablet 40 mg PO QHS warfarin 2.5 mg tablet 1.25 mg PO TUTH magnesium gluconate 27.5 mg magne- sium (500 mg) tablet 27.5 mg PO DAILY Discontinued prednisone 20 mg tablet 40 mg PO DAILY Referrals / Follow Up: Ricardo Angulo DO [Med Staff - Active Staff, Pulmonary Medicine] - Within 3 Months Ronit Doan DO [Primary Care Provider, Medical] - In 1 Week Disposition Disposition (needs filled in before D/C Order can be placed): Home, Self Care 03/18/25 0709 Vipin Mendosa MD CC: Dr. Tj Chinchilla, DO; Dr. Francisco Godinez, DO; Dr. Ronit Doan, DO Signed Normal [facility] Basic Metabolic Profile (BMP )on 03-17-2025 BUN/CRE 27.9 RATIO High 10-20 [facility] Comment on above: Performed By: #### L 300.3900, L500.2500, L100.0100 #### [facility] [address] [place], [address] Calcium [Mass/Vol] 9.2 mg/dL Normal 7.6-11.0 [facility] Comment on above: Performed By: #### L 300.3900, L500.2500, L100.0100 #### [facility] [address] [place], [address] Chloride [Moles/Vol] 96 mmol/L Low 98-108 [facility] Comment on above: Performed By: #### L 300.3900, L500.2500, L100.0100 #### [facility] [address] [place], [address] CO2 [Moles/Vol] 20.4 mmol/L Low 21.0-32.0 [facility] Comment on above: Performed By: #### L 300.3900, L500.2500, L100.0100 #### [facility] [address] [place], [address] Creatinine [Mass/Vol] 1.01 mg/dL Normal 0.70-1.20 [facility] Comment on above: Performed By: #### L 300.3900, L500.2500, L100.0100 #### [facility] [address] [place], [address] ECRCL 47.37 ml/min Low 50-250 [facility] Comment on above: Performed By: #### L 300.3900, L500.2500, L100.0100 #### [facility] [address] [place], [address] GAP 20 High 5-15 [facility] Comment on above: Performed By: #### L 300.3900, L500.2500, L100.0100 #### [facility] [address] [place], [address] GFR/1.73 sq M.predicted among non-blacks MDRD (S/P/Bld) [Vol rate/Area] 58 mL/min/{1.73_m2} Low >60 [facility] Comment on above: Result Comment: mL/m in/1.73m2 CKD-EPI Creatinine Equation (2020) Performed By: #### L 300.3900, L500.2500, L100.0100 #### [facility] [address] [place], [address] Glucose [Mass/Vol] 162 mg/dL High 70-99 [facility] Comment on above: Performed By: #### L 300.3900, L500.2500, L100.0100 #### [facility] [address] [place], [address] Potassium [Moles/Vol] 3.7 mmol/L Normal 3.3-5.1 [facility] Comment on above: Performed By: #### L 300.3900, L500.2500, L100.0100 #### [facility] [address] [place], [address] Sodium [Moles/Vol] 136 mmol/L Normal 133-145 [facility] Comment on above: Performed By: #### L 300.3900, L500.2500, L100.0100 #### [facility] [address] [place], [address] Urea nitrogen [Mass/Vol] 28 mg/dL High 4-19 [facility] Comment on above: Performed By: #### L 300.3900, L500.2500, L100.0100 #### [facility] [address] [place], [address] Bedside Glucoseon 03-17-2025 FINGERSTICK GLU 168 mg/dL High 74-106 [facility] Comment on above: Result Comment: LEENA GEMENT OF PATIENT CARE PER NURSING PROTOCOL Performed By: #### L 501.080 #### [facility] [address] [place], [address] FINGERSTICK GLU 153 mg/dL High 74-106 [facility] Comment on above: Result Comment: LEENA GEMENT OF PATIENT CARE PER NURSING PROTOCOL Performed By: #### L 501.080 #### [facility] [address] [place], [address] FINGERSTICK GLU 153 mg/dL High 74-106 [facility] Comment on above: Result Comment: LEENA GEMENT OF PATIENT CARE PER NURSING PROTOCOL Performed By: #### L 501.080 ####[facility] [address] [place], [address] FINGERSTICK GLU 178 mg/dL High -106 [facility] Comment on above: Result Comment: LEENA GEMENT OF PATIENT CARE PER NURSING PROTOCOL Performed By: #### L 501.080 ####[facility] [address] [place], [address] FINGERSTICK GLU 174 mg/dL High -106 [facility] Comment on above: Result Comment: LEENA GEMENT OF PATIENT CARE PER NURSING PROTOCOL Performed By: #### L 501.080 ####[facility] [address] [place], [address] CBC-Complete Blood Cnt No Di ffon 03-17-2025 Erythrocyte distribution width (RBC) [Ratio] 16.5 % High 11.6-14.6 [facility] Comment on above: Performed By: #### L 300.3900, L500.2500, L100.0100 #### [facility] [address] [place], [address] Hematocrit (Bld) [Volume fraction] 40.1 % Normal 37-47 [facility] Comment on above: Performed By: #### L 300.3900, L500.2500, L100.0100 #### [facility] [address] [place], [address] Hemoglobin (Bld) [Mass/Vol] 13.1 g/dL Normal 12.0-15.0 [facility] Comment on above: Performed By: #### L 300.3900, L500.2500, L100.0100 #### [facility] [address] [place], [address] MCH (RBC) [Entitic mass] 26.4 pg Low 27.0-32.0 [facility] Comment on above: Performed By: #### L 300.3900, L500.2500, L100.0100 #### [facility] [address] [place], [address] MCHC (RBC) [Mass/Vol] 32.7 g/dL Normal 32-36 [facility] Comment on above: Performed By: #### L 300.3900, L500.2500, L100.0100 #### [facility] [address] [place], [address] MCV (RBC) [Entitic vol] 80.8 fL Low 81-99 [facility] Comment on above: Performed By: #### L 300.3900, L500.2500, L100.0100 #### [facility] [address] [place], [address] Platelet mean volume (Bld) [Entitic vol] 8.6 fL Normal 6.2-12.0 [facility] Comment on above: Performed By: #### L 300.3900, L500.2500, L100.0100 #### [facility] [address] [place], [address] Platelets (Bld) [#/Vol] 402 10*3/uL Normal 150-450 [facility] Comment on above: Performed By: #### L 300.3900, L500.2500, L100.0100 #### [facility] [address] [place], [address] RBC (Bld) [#/Vol] 4.96 10*6/uL Normal 4.2-5.4 [facility] Comment on above: Performed By: #### L 300.3900, L500.2500, L100.0100 #### [facility] [address] [place], [address] RDW SD 48.7 fl High 35.1-43.9 [facility] Comment on above: Performed By: #### L 300.3900, L500.2500, L100.0100 #### [facility] [address] [place], [address] WBC (Bld) [#/Vol] 16.7 10*3/uL High 4.4-11.0 [facility] Comment on above: Performed By: #### L 300.3900, L500.2500, L100.0100 #### [facility] [address] [place], [address] Prothrombin Time w/INRon INR Coag (PPP) [Relative time] 3.5 {INR} Normal [facility] Comment on above: Performed By: #### L 300.3900, L500.2500, L100.0100 #### [facility] [address] [place], [address] PT Coag (PPP) [Time] 35.6 s High 11.7-14.9 [facility] Comment on above: Performed By: #### L 300.3900, L500.2500, L100.0100 #### [facility] [address] [place], [address] Bedside Glucoseon 03-16-2025 FINGERSTICK GLU 147 mg/dL High 74-106 [facility] Comment on above: Result Comment: LEENA GEMENT OF PATIENT CARE PER NURSING PROTOCOL Performed By: #### L 501.080 #### [facility] [address] [place], [address] FINGERSTICK GLU 155 mg/dL High 74-106 [facility] Comment on above: Result Comment: LEENA GEMENT OF PATIENT CARE PER NURSING PROTOCOL Performed By: #### L 501.080 ####[facility] [address] [place], [address] FINGERSTICK GLU 164 mg/dL High -106 [facility] Comment on above: Result Comment: LEENA GEMENT OF PATIENT CARE PER NURSING PROTOCOL Performed By: #### L 501.080 #### [facility] [address] [place], [address] FINGERSTICK GLU 213 mg/dL High [facility]106 [facility] Comment on above: Result Comment: LEENA GEMENT OF PATIENT CARE PER NURSING PROTOCOL Performed By: #### L 501.080 #### [facility] [address] [place], [address] Prothrombin Time w/INRon INR Coag (PPP) [Relative time] 3.5 {INR} Normal [facility] Comment on above: Performed By: #### L 501.080 #### [facility] [address] [place], [address] PT Coag (PPP) [Time] 35.6 s High 11.7-14.9 [facility] Comment on above: Performed By: #### L 501.080 #### [facility] [address] [place], [address] Bedside Glucoseon 03-15-2025 FINGERSTICK GLU 179 mg/dL High [address] [place] [address] Comment on above: Result Comment: LEENA GEMENT OF PATIENT CARE PER NURSING PROTOCOL Performed By: #### L 501.080 ####[facility] [address] [place], [address] FINGERSTICK GLU 179 mg/dL High [address] [place] [address] Comment on above: Result Comment: LEENA GEMENT OF PATIENT CARE PER NURSING PROTOCOL Performed By: #### L 501.080 ####[facility] [address] [place], [address] FINGERSTICK GLU 193 mg/dL High [address] [place] [address] Comment on above: Result Comment: LEENA GEMENT OF PATIENT CARE PER NURSING PROTOCOL Performed By: #### L 501.080 #### [facility] [address] [place], [address] FINGERSTICK GLU 191 mg/dL High [address] [place] [address] Comment on above: Result Comment: LEENA GEMENT OF PATIENT CARE PER NURSING PROTOCOL Performed By: #### L 501.080 #### [facility] [address] [place], [address] Prothrombin Time w/INRon INR Coag (PPP) [Relative time] 3.0 {INR} Normal [facility] Comment on above: Performed By: #### L 501.080 #### [facility] [address] [place], [address] PT Coag (PPP) [Time] 32.2 s High 11.7-14.9 [facility] Comment on above: Performed By: #### L 501.080 #### [facility] [address] [place], [address] Basic Metabolic Profile (BMP )on 03-14-2025 BUN/CRE 20.0 RATIO Normal - [facility] Comment on above: Performed By: #### L 300.3900, L500.2500, L100.0100 #### [facility] [address] [place], [address] Calcium [Mass/Vol] 9.4 mg/dL Normal 7.6-11.0 [facility] Comment on above: Performed By: #### L 300.3900, L500.2500, L100.0100 #### [facility] [address] [place], [address] Chloride [Moles/Vol] 99 mmol/L Normal 98-108 [facility] Comment on above: Performed By: #### L 300.3900, L500.2500, L100.0100 #### [facility] [address] [place], [address] CO2 [Moles/Vol] 24.0 mmol/L Normal 21.0-32.0 [facility] Comment on above: Performed By: #### L 300.3900, L500.2500, L100.0100 #### [facility] [address] [place], [address] Creatinine [Mass/Vol] 1.05 mg/dL Normal 0.70-1.20 [facility] Comment on above: Performed By: #### L 300.3900, L500.2500, L100.0100 #### [facility] [address] [place], [address] ECRCL 45.57 ml/min Low 50-250 [facility] Comment on above: Performed By: #### L 300.3900, L500.2500, L100.0100 #### [facility] [address] [place], [address] GAP 13 Normal 5-15 [facility] Comment on above: Performed By: #### L 300.3900, L500.2500, L100.0100 #### [facility] [address] [place], [address] GFR/1.73 sq M.predicted among non-blacks MDRD (S/P/Bld) [Vol rate/Area] 56 mL/min/{1.73_m2} Low >60 [facility] Comment on above: Result Comment: mL/m in/1.73m2 CKD-EPI Creatinine Equation (2020) Performed By: #### L 300.3900, L500.2500, L100.0100 #### [facility] [address] [place], [address] Glucose [Mass/Vol] 168 mg/dL High 70-99 [facility] Comment on above: Performed By: #### L 300.3900, L500.2500, L100.0100 #### [facility] [address] [place], [address] Potassium [Moles/Vol] 4.4 mmol/L Normal 3.3-5.1 [facility] Comment on above: Performed By: #### L 300.3900, L500.2500, L100.0100 #### [facility] [address] [place], [address] Sodium [Moles/Vol] 136 mmol/L Normal 133-145 [facility] Comment on above: Performed By: #### L 300.3900, L500.2500, L100.0100 #### [facility] [address] [place], [address] Urea nitrogen [Mass/Vol] 21 mg/dL High 4-19 [facility] Comment on above: Performed By: #### L 300.3900, L500.2500, L100.0100 #### [facility] [address] [place], [address] Bedside Glucoseon 03-14-2025 FINGERSTICK GLU 200 mg/dL High 74-106 [facility] Comment on above: Result Comment: LEENA GEMENT OF PATIENT CARE PER NURSING PROTOCOL Performed By: #### L 300.3900, L500.2500, L100.0100 #### [facility] [address] [place], [address] FINGERSTICK GLU 174 mg/dL High 74-106 [facility] Comment on above: Result Comment: LEENA GEMENT OF PATIENT CARE PER NURSING PROTOCOL Performed By: #### L 501.080 ####[facility] [address] [place], [address] FINGERSTICK GLU 167 mg/dL High 74-106 [facility] Comment on above: Result Comment: LEENA GEMENT OF PATIENT CARE PER NURSING PROTOCOL Performed By: #### L 501.080 #### [facility] [address] [place], [address] CBC W/Diff, Automatedon 11-0 7-2024 Absolute Lymph 0.86 X10 3/uL Normal 0.83-4.51 [facility] Comment on above: Performed By: #### L 300.3900, L500.2500, L100.0100 #### [facility] [address] [place], [address] Absolute Neut 14.2 X10 3/uL High 2.0-7.7 [facility] Comment on above: Performed By: #### L 300.3900, L500.2500, L100.0100 #### [facility] [address] [place], [address] Basophils/100 WBC (Bld) 0.2 % Normal 0-1 [facility] Comment on above: Performed By: #### L 300.3900, L500.2500, L100.0100 #### [facility] [address] [place], [address] Eosinophils/100 WBC (Bld) 0.1 % Normal 0-5 [facility] Comment on above: Performed By: #### L 300.3900, L500.2500, L100.0100 #### [facility] [address] [place], [address] Erythrocyte distribution width (RBC) [Ratio] 16.6 % High 11.6-14.6 [facility] Comment on above: Performed By: #### L 300.3900, L500.2500, L100.0100 #### [facility] [address] [place], [address] Hematocrit (Bld) [Volume fraction] 38.8 % Normal 37-47 [facility] Comment on above: Performed By: #### L 300.3900, L500.2500, L100.0100 #### [facility] [address] [place], [address] Hemoglobin (Bld) [Mass/Vol] 12.7 g/dL Normal 12.0-15.0 [facility] Comment on above: Performed By: #### L 300.3900, L500.2500, L100.0100 #### [facility] [address] [place], [address] IG% 1.300 High 0.0-0.9 [facility] Comment on above: Result Comment: IG% - Immature Granulocytes (promyelocytes, myelocytes and metamyelocytes) > 1% indicates that a LEFT SHIFT is Present. Performed By: #### L 300.3900, L500.2500, L100.0100 #### [facility] [address] [place], [address] Lymphocytes/100 WBC (Bld) 5.4 % Low 19-41 [facility] Comment on above: Performed By: #### L 300.3900, L500.2500, L100.0100 #### [facility] [address] [place], [address] MCH (RBC) [Entitic mass] 26.5 pg Low 27.0-32.0 [facility] Comment on above: Performed By: #### L 300.3900, L500.2500, L100.0100 #### [facility] [address] [place] [place], [address] MCHC (RBC) [Mass/Vol] 32.7 g/dL Normal 32-36 [facility] Comment on above: Performed By: #### L 300.3900, L500.2500, L100.0100 #### [facility] [address] [place], [address] MCV (RBC) [Entitic vol] 81.0 fL Normal 81-99 [facility] Comment on above: Performed By: #### L 300.3900, L500.2500, L100.0100 #### [facility] [address] [place], [address] Monocytes/100 WBC (Bld) 4.0 % Normal 0-10 [facility] Comment on above: Performed By: #### L 300.3900, L500.2500, L100.0100 #### [facility] [address] [place], [address] Neutrophils/100 WBC (Bld) 89.0 % High 47-70 [facility] Comment on above: Performed By: #### L 300.3900, L500.2500, L100.0100 #### [facility] [address] [place], [address] Nucleated RBC (Bld) [#/Vol] 0 10*3/uL Normal 0-5 [facility] Comment on above: Performed By: #### L 300.3900, L500.2500, L100.0100 #### [facility] [address] [place], [address] Platelet mean volume (Bld) [Entitic vol] 8.8 fL Normal 6.2-12.0 [facility] Comment on above: Performed By: #### L 300.3900, L500.2500, L100.0100 #### [facility] [address] [place], [address] Platelets (Bld) [#/Vol] 379 10*3/uL Normal 150-450 [facility] Comment on above: Performed By: #### L 300.3900, L500.2500, L100.0100 #### [facility] [address] [place], [address] RBC (Bld) [#/Vol] 4.79 10*6/uL Normal 4.2-5.4 [facility] Comment on above: Performed By: #### L 300.3900, L500.2500, L100.0100 #### [facility] [address] [place], [address] RDW SD 48.7 fl High 35.1-43.9 [facility] Comment on above: Performed By: #### L 300.3900, L500.2500, L100.0100 #### [facility] [address] [place], [address] WBC (Bld) [#/Vol] 15.9 10*3/uL High 4.4-11.0 [facility] Comment on above: Performed By: #### L 300.3900, L500.2500, L100.0100 #### [facility] [address] [place], [address] Prothrombin Time w/INRon INR Coag (PPP) [Relative time] 2.6 {INR} Normal [facility] Comment on above: Performed By: #### L 300.3900, L500.2500, L100.0100 #### [facility] [address] [place], [address] PT Coag (PPP) [Time] 28.4 s High 11.7-14.9 [facility] Comment on above: Performed By: #### L 300.3900, L500.2500, L100.0100 #### [facility] [address] [place], [address] Basic Metabolic Profile (BMP )on 03-13-2025 BUN/CRE 17.3 RATIO Normal 10-20 [facility] Comment on above: Performed By: #### L 503.7505, L500.2500, L100.0100 ####[facility] [address] [place], [address] Calcium [Mass/Vol] 9.5 mg/dL Normal 7.6-11.0 [facility] Comment on above: Performed By: #### L 503.7505, L500.2500, L100.0100 ####[facility] [address] [place], [address] Chloride [Moles/Vol] 95 mmol/L Low 98-108 [facility] Comment on above: Performed By: #### L 503.7505, L500.2500, L100.0100 ####[facility] [address] [place], [address] CO2 [Moles/Vol] 20.8 mmol/L Low 21.0-32.0 [facility] Comment on above: Performed By: #### L 503.7505, L500.2500, L100.0100 ####[facility] [address] [place], [address] Creatinine [Mass/Vol] 1.02 mg/dL Normal 0.70-1.20 [facility] Comment on above: Performed By: #### L 503.7505, L500.2500, L100.0100 ####[facility] [address] [place], [address] ECRCL 47.93 ml/min Low 50-250 [facility] Comment on above: Performed By: #### L 503.7505, L500.2500, L100.0100 ####[facility] [address] [place], [address] GAP 16 High 5-15 [facility] Comment on above: Performed By: #### L 503.7505, L500.2500, L100.0100 ####[facility] [address] [place], [address] GFR/1.73 sq M.predicted among non-blacks MDRD (S/P/Bld) [Vol rate/Area] 58 mL/min/{1.73_m2} Low >60 [facility] Comment on above: Result Comment: mL/m in/1.73m2 CKD-EPI Creatinine Equation (2020) Performed By: #### L 503.7505, L500.2500, L100.0100 ####[facility] [address] [place], [address] Glucose [Mass/Vol] 151 mg/dL High 70-99 [facility] Comment on above: Performed By: #### L 503.7505, L500.2500, L100.0100 ####[facility] [address] [place], [address] Potassium [Moles/Vol] 4.2 mmol/L Normal 3.3-5.1 [facility] Comment on above: Result Comment: Hemo lysis present, Results??could be affected. ?? Performed By: #### L 503.7505, L500.2500, L100.0100 ####[facility] [address] [place], [address] Sodium [Moles/Vol] 132 mmol/L Low 133-145 [facility] Comment on above: Performed By: #### L 503.7505, L500.2500, L100.0100 ####[facility] [address] [place], [address] Urea nitrogen [Mass/Vol] 18 mg/dL Normal 4-19 [facility] Comment on above: Performed By: #### L 503.7505, L500.2500, L100.0100 ####[facility] [address] [place], [address] Bedside Glucoseon 03-13-2025 FINGERSTICK GLU 228 mg/dL High 74-106 [facility] Comment on above: Result Comment: LEENA GEMENT OF PATIENT CARE PER NURSING PROTOCOL Performed By: #### L 501.080 #### [facility] [address] [place], [address] FINGERSTICK GLU 259 mg/dL High 74-106 [facility] Comment on above: Result Comment: LEENA GEMENT OF PATIENT CARE PER NURSING PROTOCOL Performed By: #### L 501.080 #### [facility] [address] [place], [address] FINGERSTICK GLU 233 mg/dL High 74-106 [facility] Comment on above: Result Comment: LEENA GEMENT OF PATIENT CARE PER NURSING PROTOCOL Performed By: #### L 501.080 ####[facility] [address] [place], [place], [address] CBC W/Diff, Automatedon 11-0 SMEAR COMMENT COMMENT Normal [facility] Comment on above: Result Comment: MONO CYTOSIS. Performed By: #### L 503.7505, L500.2500, L100.0100 ####[facility] [address] [place], [address] Chest PA and Lateralon 03-13 Chest PA and Lateral [facility] Imaging Services [address] [place] [address] Chest PA and Lateral MR#: [id number] Acct: [id number] Name: PAU MUÑOZ Rep #: [id number] : 1950 F 74 From: Rupert Georges PCP: Dr. Ronit Doan DO Status: REG ER Study: Chest PA and Lateral Date of Exam: 03/13/25 Exam# [id number] Ordering Dr: Zane Skinner DO PROCEDURE: CHEST PA AND LATERAL 03/13/2025 REASON FOR EXAM: CHEST PAIN TECHNIQUE: Procedure Code: RADCXR Modality: DX Procedure: CHEST PA AND LATERAL COMPARISON: None provided. 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 Right thoracic transvenous pacemaker with atrial and ventricular leads in place. Prior sternotomy seen. The cardiomediastinal silhouette is within the normal range. Chronic lung changes are seen, but no acute pneumonic process is clearly appreciated. Sensitivity is reduced by lack of prior comparison study, however. No pleural effusion or pneumothorax is seen. Reading Location: [place] [address] CC: Dr. Ronit Doan DO; Dr. Zane Skinner DO Procedure Writer: Signed Normal [facility] Emergency Department Summary on 03-13-2025 Emergency Department Summary [facility] Medical Records Department [address] [place] [address] Emergency Department Summary 03/13/25 MR#: [id number] Acct: [id number] Name: PAU MUÑOZ Rep #: [id number] : 1950 74 From: Zane Skinner DO PCP: Dr. Ronit Doan DO Status:REG ER Location: ED HPI History of Present Illness Chief Complaint: Shortness of Breath Narrative Narrative: Patient is a 74-year-old female with past medical history of asthma, atrial fibrillation on warfarin, CHF, hypertension, pacemaker who presents to the emergency department chief complaint of shortness of breath and difficulty breathing. Patient notes that she went to urgent care on Monday and was diagnosed with bronchitis and started on prednisone and she states that she has been taking them as prescribed. States that she was up all night that she was having significant difficulty breathing therefore she came here to be further evaluated. Patient states that normally when she gets diagnosed with bronchitis she gets an antibiotic and states that she was told that this is viral and she did not need this and notes that now something else is going on and believes that she may need an antibiotic [facility] Medical History Blood disorder Wears hearing aid [...] 2 mg tablet 2.5 mg PO MOWEFR mowefrsasu 07/11/24 History ipratropium 0.5 mg-albuterol 3 mg 3 ml inhalation PRN 07/15/24 Unkn own History (2.5 mg base)/3 mL nebulization soln magnesium gluconate 27.5 mg 27.5 mg PO DAILY 07/15/24 07/16/24 History magnesium (500 mg) tablet pravastatin 40 mg tablet 40 mg PO QHS 07/15/24 Unknown Hist ory warfarin 2.5 mg tablet 1.25 mg PO TUTH 07/15/24 07/11/24 History metformin 500 mg tablet,extended 500 mg PO BID 07/24/24 Unknown His tory release 24 hr prednisone 20 mg tablet 40 mg PO DAILY 03/13/25 Unknown Hi story Allergy/AdvReac Type Severity Reaction Status Date / Time cephalexin (From Keflex) Allergy Hives Verified 03/13/25 06:45 levofloxacin (From Levaquin) Allergy Hives Verified 03/13/25 06:45 Sulfa (Sulfonamide Allergy Hives Verified 03/13/25 06:45 Antibiotics) sulfamethoxazole (From Allergy Hives Verified 03/13/25 06:45 Bactrim) trimethoprim (From Bactrim) Allergy Hives Verified 03/13/25 06:45 Iodinated Contrast Media AdvReac Severe Other Verified 03/13/25 06:45 (contrast dye - iodinated) Family History Mother Breast cancer, Onset Age: 57 Sister Breast cancer Surgical History Status post right breast lumpectomy History of carotid endarterectomy H/O right breast biopsy H/O: hysterectomy Hx of cholecystectomy History of open heart surgery Social History Smoking Status: Never smoker alcohol intake: never substance use type: does not use ROS ROS ED ROS Narrative Constitutional: Denies any fevers, chills, headache Cardiovascular: Denies chest pain Respiratory: Mild shortness of breath as (more content not included)... Normal [facility] H&P Exam - Hospitalist [facility] Medical Records Department [facility] [place] [address] H P Exam - Hospitalist 03/13/25 1012 MR#: [id number] Acct: [id number] Name: PAU MUÑOZ Rep #: [id number] : 1950 74 From: Francisco Godinez DO PCP: Dr. Ronit Doan, DO Status:ADM PATO Location: [place] [address] HPI - General General Date of Service: 03/13/25 HPI Narrative PAU MUÑOZ, is a 74 F who presents with shortness of breath. Patient been short of breath since this past Monday. Went to an urgent care and received prednisone but despite that she has been short of breath. Her activity is limited at baseline but she just feels overall more short of breath. Presents to the emergency room where her sats are in the 90s but has audible wheezing. Patient received methylprednisolone as well as bronchodilators. And the hospital service was contacted for admission. Patient has been coughing, but it nonproductive. No fever or chills. [ ] COUNTS INCLUDE 234 BEDS AT THE [facility] Medical History Blood disorder Wears hearing aid [...] 2 mg tablet 2.5 mg PO MOWEFR mowefrsasu 07/11/24 History ipratropium 0.5 mg-albuterol 3 mg 3 ml inhalation PRN 07/15/24 Unkn own History (2.5 mg base)/3 mL nebulization soln magnesium gluconate 27.5 mg 27.5 mg PO DAILY 07/15/24 07/16/24 History magnesium (500 mg) tablet pravastatin 40 mg tablet 40 mg PO QHS 07/15/24 Unknown Hist ory warfarin 2.5 mg tablet 1.25 mg PO TUTH 07/15/24 07/11/24 History metformin 500 mg tablet,extended 500 mg PO BID 07/24/24 Unknown His tory release 24 hr prednisone 20 mg tablet 40 mg PO DAILY 03/13/25 Unknown Hi story Allergy/AdvReac Type Severity Reaction Status Date / Time cephalexin (From Keflex) Allergy Hives Verified 03/13/25 06:45 levofloxacin (From Levaquin) Allergy Hives Verified 03/13/25 06:45 Sulfa (Sulfonamide Allergy Hives Verified 03/13/25 06:45 Antibiotics) sulfamethoxazole (From Allergy Hives Verified 03/13/25 06:45 Bactrim) trimethoprim (From Bactrim) Allergy Hives Verified 03/13/25 06:45 Iodinated Contrast Media AdvReac Severe Other Verified 03/13/25 06:45 (contrast dye - iodinated) Family History Mother Breast cancer, Onset Age: 57 Sister Breast cancer Surgical History Status post right breast lumpectomy History of carotid endarterectomy H/O right breast biopsy H/O: hysterectomy Hx of cholecystectomy History of open heart surgery Social History Smoking Status: Never smoker alcohol intake: never substance use type: does not use ROS ROS Narrative All review of systems were negative except as mentioned above in the history of present illness and the other review of systems. Vital Signs Vital Signs Vital Signs: 03/13/25 06:38 03/13/25 07:23 03/13/25 07:53 Temperature 36.5 C L Temperature Source Oral Pulse Rate 83 80 65 Respiratory Rate 16 19 H 23 H Respiratory Pattern Normal Blood Pressur (more content not included)... Normal [facility] M100.678on 03-13-2025 M100.678 Pending SARS-CoV-2 (COVID 19) Negative INFLUENZA A Negative INFLUENZA B Negative RSV PCR Negative Normal [facility] Comment on above: Performed By: #### M 100.678 ####[facility] [address] [place], [place], [id number] Partial Thromboplast Timeon 03-13-2025 aPTT Coag (Bld) [Time] 29.9 s Normal 24.1-36.2 [facility] Comment on above: Performed By: #### L 300.3900, L500.2500, L100.0100 #### [facility] [address] [place], [place], [id number] Pro- Brain NATRIURETIC PEPTI Juan 03-13-2025 Natriuretic peptide B (Bld) [Mass/Vol] 787 pg/mL Normal <=900 [facility] Comment on above: Result Comment: Hear t Failure Unlikely: < 300 pg/mL Heart Failure Likely < 50 Years: > 450 pg/mL 50-75 Years: > 900 pg/mL >75 Years: > 1800 pg/mL Performed By: #### L 503.7505, L500.2500, L100.0100 ####[facility] [address] [place], [address] Prothrombin Time w/INRon INR Coag (PPP) [Relative time] 2.3 {INR} Normal [facility] Comment on above: Performed By: #### L 300.3900, L500.2500, L100.0100 #### [facility] [address] [place], [address] PT Coag (PPP) [Time] 25.8 s High 11.7-14.9 [facility] Comment on above: Performed By: #### L 300.3900, L500.2500, L100.0100 #### [facility] [address] [place], [address] RESPIRATORY PANEL MOLECULARo n 03-13-2025 RP PANEL Normal Reference Ran ge = Not Detected Resp path DNA+RNA Pnl Resp ULISES+probe Nucleic acid amplification test method Copy of report sent to Infection Control Printer MS#[id number] 03/13/25 [address] [place] [address]. ADENOVIRUS Not Detected INFLUENZA A Not Detected INFLUENZA A (SUBTYPE H1) Not Detected INFLUENZA A (SUBTYPE H3) Not Detected INFLUENZA B Not Detected HUMAN METAPHNEUMO Not Detected PARAINFLUENZA 1 Not Detected PARAINFLUENZA 2 Not Detected PARAINFLUENZA 3 Not Detected PARAINFLUENZA 4 Not Detected RHINOVIRUS A Positive for RHINOVIRUS by NAAT technology A RSV A Not Detected RSV B Not Detected RHINOVIRUS Normal [facility] Comment on above: Performed By: #### M 100.638 ####[facility] [address] [place], [address] HEMOGLOBIN A1c WITH eAGon eAG (mmol/L) 8.9 mmol/L Normal [facility] Comment on above: Order Comment: FASTI NG:NO FASTING: NO Performed By: #### 1 6802 #### [facility] [address], [address] [place] [address] Warp Drawer: Jasson Gonzalez MD HbA1c (Bld) [Mass fraction] [...] By: #### 1 6802 #### [facility] [place] [address] Warp Drawer: Jasson Gonzalez MD Magnesium [Mass/Vol] 160 mg/dL [facility] Comment on above: Order Comment: FASTI NG:NO FASTING: NO Performed By: #### 1 6802 #### [facility] [place] [address] Warp Drawer: Jasson Gonzalez MD PROTHROMBIN TIME-INRon 01-21 INR Coag (PPP) [Relative time] 1.8 {INR} High [facility] Comment on above: Result Comment: Refe rence Range 0.9-1.1 Moderate-intensity Warfarin Therapy 2.0-3.0 Higher-intensity Warfarin Therapy 3.0-4.0 Performed By: #### 8 847 #### [facility] [place] [address] Warp Drawer: Jasson Gonzalez MD PT Coag (PPP) [Time] 18.2 s High 9.0-11.5 [facility] Comment on above: Result Comment: For additional information, please refer to http://education.Doodle.Journeys/faq/NQQ643 (This link is being provided for informational/ educational purposes only.) Performed By: #### 8 597 #### [facility] of [place] [address] Warp Drawer: Jasson Gonzalez MD INR Coag (Bld) [Relative juanis e]on 10-28-2024 Interpretation and review of laboratory results Abnormal [facility] Work Phone: POC INR 3.3 Abnormal 0.9 - 1.1 [facility] Work Phone: [facility] Work Phone: CBC (H/H, RBC, INDICES, WBC, PLT)on 10-22-2024 Erythrocyte distribution width (RBC) [Ratio] 15.7 % High 11.0-15.0 [facility] Comment on above: Performed By: #### 7 600, 79273, 744, 14509 #### [facility] [place] [address] Warp Drawer: Jasson Gonzalez MD Hematocrit (Bld) [Volume fraction] 42.5 % Normal 35.0-45.0 [facility] Comment on above: Performed By: #### 7 600, 35169, 767, 93304 #### [facility] [place] [address] Warp Drawer: Jasson Gonzalez MD Hemoglobin (Bld) [Mass/Vol] 13.5 g/dL Normal 11.7-15.5 [facility] Comment on above: Performed By: #### 7 600, 70296, 952, 63366 #### [facility] [place] [address] Warp Drawer: Jasson Gonzalez MD MCH (RBC) [Entitic mass] 26.4 pg Low 27.0-33.0 [facility] Comment on above: Performed By: #### 7 600, 93889, 175, 16648 #### [facility] [place] [address] Warp Drawer: Jasson Gonzalez MD MCHC (RBC) [Mass/Vol] 31.8 [...] clinical condition. Performed By: #### 7 600, 73795, 1758, 96945 #### [facility] [place] [address] Warp Drawer: Jasson Gonzalez MD MCV (RBC) [Entitic vol] 83.2 fL Normal 80.0-100.0 [facility] Comment on above: Performed By: #### 7 600, 94404, 1758, 21437 #### [facility] [place] [address] Warp Drawer: Jasson Gonzalez MD Platelet mean volume (Bld) [Entitic vol] 9.0 fL Normal 7.5-12.5 [facility] Comment on above: Performed By: #### 7 600, 88157, 1758, 57925 #### [facility] [place] [address] Warp Drawer: Jasson Gonzalez MD Platelets (Bld) [#/Vol] 352 10*3/uL Normal 140-400 [facility] Comment on above: Performed By: #### 7 600, 74241, 1758, 98699 #### [facility] [place] [address] Warp Drawer: Jasson Gonzalez MD RBC (Bld) [#/Vol] 5.11 10*6/uL High 3.80-5.10 [facility] Comment on above: Performed By: #### 7 600, 38362, 175, 30531 #### [facility] of [address], [address] [place] [address] Warp Drawer: Jasson Gonzalez MD WBC (Bld) [#/Vol] 9.0 10*3/uL Normal 3.8-10.8 [facility] Comment on above: Performed By: #### 7 600, 69841, 1758, 53641 #### [facility] [place] [address] Warp Drawer: Jasson Gonzalez MD COMPREHENSIVE METABOLIC PANE L W/ANION GAPon 10-22-2024 Albumin [Mass/Vol] 4.1 g/dL Normal 3.6-5.1 [facility] Comment on above: Performed By: #### 7 600, 05894, 1758, 99878 #### [facility] of [address], [address] [place] [address] Warp Drawer: Jasson Gonzalez MD ALP [Catalytic activity/Vol] 104 U/L Normal 37-153 [facility] Comment on above: Performed By: #### 7 600, 57685, 1758, 51915 #### [facility] [place] [address] Warp Drawer: Jasson Gonzalez MD ALT [Catalytic activity/Vol] 13 U/L Normal 6-29 [facility] Comment on above: Performed By: #### 7 600, 59362, 1758, 38593 #### [facility] [place] [address] Warp Drawer: Jasson Gonzalez MD AST [Catalytic activity/Vol] 17 U/L Normal 10-35 [facility] Comment on above: Performed By: #### 7 600, 69437, 1758, 67189 #### [facility] [place] [address] Warp Drawer: Jasson Gonzalez MD Bilirubin [Mass/Vol] 0.4 mg/dL Normal 0.2-1.2 [facility] Comment on above: Performed By: #### 7 600, 80000, 175, 21389 #### [facility] [place] [address] Warp Drawer: Jasson Gonzalez MD Calcium [Mass/Vol] 9.1 mg/dL Normal 8.6-10.4 [facility] Comment on above: Performed By: #### 7 600, 73595, 1758, 88698 #### [facility] of [address], [address] [place] [address] Warp Drawer: Jasson Gonzalez MD Chloride [Moles/Vol] 99 mmol/L Normal 98-110 [facility] Comment on above: Performed By: #### 7 600, 85608, 175, 89817 #### [facility] of [address], [address] [place] [address] Warp Drawer: Jasson Gonzalez MD CO2 [Moles/Vol] 28 mmol/L Normal 20-32 [facility] Comment on above: Performed By: #### 7 600, 74909, 1758, 40758 #### [facility] of [address], [address] [place] [address] Warp Drawer: Jasson Gonzalez MD Creatinine [Mass/Vol] 0.93 mg/dL Normal 0.60-1.00 [facility] Comment on above: Performed By: #### 7 600, 43740, 1758, 97080 #### [facility] [address], [address] [place] [address] Warp Drawer: Jasson Gonzalez MD ELECTROLYTE BALANCE 11 mmol/L (calc) Normal 7-17 [facility] Comment on above: Performed By: #### 7 600, 26925, 1758, 13275 #### [facility] [place] [address] Warp Drawer: Jasson Gonzalez MD GFR/1.73 sq M.predicted among non-blacks MDRD (S/P/Bld) [Vol rate/Area] 64 mL/min/{1.73_m2} Normal > OR = 60 [facility] Comment on above: Performed By: #### 7 600, 41154, 175, 51648 #### [facility] [place] [address] Warp Drawer: Jasson Gonzalez MD Glucose [Mass/Vol] 134 mg/dL Normal 65-139 [facility] Comment on above: Result Comment: Non-fasting reference interval For someone without known diabetes, a glucose value >125 mg/dL indicates that they may have diabetes and this should be confirmed with a follow-up test. Performed By: #### 7 600, 28628, 175, 51090 #### [facility] [address], [address] [place] [address] Warp Drawer: Jasson Gonzalez MD Potassium [Moles/Vol] 4.4 mmol/L Normal 3.5-5.3 [facility] Comment on above: Performed By: #### 7 600, 53018, 1758, 49077 #### [facility] [place] [address] Warp Drawer: Jasson Gonzalez MD Protein [Mass/Vol] 7.5 g/dL Normal 6.1-8.1 [facility] Comment on above: Performed By: #### 7 600, 49983, 1758, 64871 #### [facility] [place] [address] Warp Drawer: Jasson Gonzalez MD Sodium [Moles/Vol] 138 mmol/L Normal 135-146 [facility] Comment on above: Performed By: #### 7 600, 00739, 1758, 31592 #### [facility] [place] [address] Warp Drawer: Jasson Gonzalez MD Urea nitrogen [Mass/Vol] 15 mg/dL Normal 7-25 [facility] Comment on above: Performed By: #### 7 600, 89818, 175, 68528 #### [facility] [place] [address] Warp Drawer: Jasson Gonzalez MD HEMOGLOBIN A1c WITH eAGon eAG (mmol/L) 9.2 mmol/L Normal [facility] Comment on above: Performed By: #### 7 600, 00415, 175, 84329 #### [facility] [place] [address] Warp Drawer: Jasson Gonzalez MD HbA1c (Bld) [Mass fraction] [...] for children. Performed By: #### 7 600, 31717, 1759, 88077 #### [facility] [address], [address] [place] [address] Warp Drawer: Jasson Gonzalez MD Magnesium [Mass/Vol] 166 mg/dL [facility] Comment on above: Performed By: #### 7 600, 38959, 1759, 74426 #### [facility] [address], [address] [place] [address] Warp Drawer: Jasson Gonzalez MD LIPID PANEL, [facility] 10-06 Cholesterol [Mass/Vol] 143 mg/dL Normal <200 [facility] Comment on above: Order Comment: FASTI NG:NO FASTING: NO Performed By: #### 7 600, 06375, 1759, 53150 #### [facility] [address], [address] [place] [address] Warp Drawer: Jasson Gonzalez MD Cholesterol in HDL [Mass/Vol] 66 mg/dL Normal > OR = 50 [facility] Comment on above: Order Comment: FASTI NG:NO FASTING: NO Performed By: #### 7 600, 43077, 1759, 55285 #### [facility] [place] [address] Warp Drawer: Jasson Gonzalez MD Cholesterol in LDL [Mass/Vol] 54 mg/dL Normal [facility] Comment on above: Order Comment: FASTI NG:NO FASTING: NO Result Comment: Refe rence range: <100 Desirable range <100 mg/dL for primary prevention; <70 mg/dL for patients with CHD or diabetic patients with > or = 2 CHD risk factors. LDL-C is now calculated using the Jane calculation, which is a validated novel method providing better accuracy than the Friedewald equation in the estimation of LDL-C. Mendoza MOSS et al. OSCAR. 2013;310(19): 6740-1756 (http://education.SiTime.Journeys/faq/JOI495) Performed By: #### 7 600, 97480, 1759, 97100 #### [facility] [address], [address] [place] [address] Warp Drawer: Jasson Gonzalez MD Cholesterol.total/Ch olesterol in HDL [Mass ratio] 2.2 {ratio} Normal <5.0 [facility] Comment on above: Order Comment: FASTI NG:NO FASTING: NO Performed By: #### 7 600, 27412, 1759, 72329 #### [facility] [address], [address] [place] [address] Warp Drawer: Jasson Gonzalez MD NON HDL CHOLESTEROL 77 mg/dL (calc) Normal <130 [facility] Comment on above: Order Comment: FASTI NG:NO FASTING: NO Result Comment: For patients with diabetes plus 1 major ASCVD risk factor, treating to a non-HDL-C goal of <100 mg/dL (LDL-C of <70 mg/dL) is considered a therapeutic option. Performed By: #### 7 600, 18483, 1759, 08684 #### [facility] [address], [address] [place] [address] Warp Drawer: Jasson Gonzalez MD Triglyceride [Mass/Vol] 149 mg/dL Normal <150 [facility] Comment on above: Order Comment: FASTI NG:NO FASTING: NO Performed By: #### 7 600, 30991, 1759, 11266 #### [facility] [address], [address] [place] [address] Warp Drawer: Jasson Gonzalez MD [facility] Progress Notes-Mary pablo 10-08-2024 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 Last seen by myself in August 2023. Below is her following history: In 2012, she was following with her family doctor, and MGUS was found in her blood. She was referred to Oncology. She has been followed at [facility], and wanted to switch due to seeing a different Provider every visit (seen previously by Dr. Quijano, Dr. Iraheta, Dr. Jacobo and Dr. Gonzales). I can only see history from 2016, in which she has not had a [...] mg/dL 10/04 (more content not included)... Normal [facility] GAYLE Quant with FLCon 025 EER Monoclonal Protein and FLC, Serum See Note Normal [facility] Comment on above: Order Comment: 1 digna quinones prior to FUV Ordered on [facility]# [id number] Result Comment: Auth orized individuals can access the [employer] Enhanced Report with an [employer] Connect account using the following link. Your local lab can assist you in obtaining the patient report if you don't have a Connect account. [email or web address] Performed By: [employer] [address] [place] [address] Water Engineer: Emanuel Haney MD, PhD CLIA Number: [id number] Performed By: #### 7 [id number] ####[facility] [address] [place] [address] Medical Director: Mendoza Whitfield MD IGA 486 mg/dL High 68-408 [facility] Comment on above: Order Comment: 1 wee k prior to FUV Ordered on [facility]# [id number] Performed By: #### 7 [id number] ####[facility] [address] [place] [address] Medical Director: Mendoza Whitfield MD IGG 1087 mg/dL Normal 768-1632 [facility] Comment on above: Order Comment: 1 wee k prior to FUV Ordered on [facility]# [id number] Performed By: #### 7 [id number] ####[facility] [address] [place] [address] Medical Director: Mendoza Whitfield MD IGM 128 mg/dL Normal 35-263 [facility] Comment on above: Order Comment: 1 wee k prior to FUV Ordered on [facility]# [id number] Performed By: #### 7 [id number] ####[facility] [address] [place] [address] Medical Director: Mendoza Whitfield MD Immunofixation GAYLE Done Normal [facility] Comment on above: Order Comment: 1 wee k prior to FUV Ordered on [facility]# [id number] Performed By: #### 7 [id number] ####[facility] [address] [place] [address] Medical Director: Mendoza Whitfield MD [place] Qnt Free Light Chains 34.22 mg/L High 3.30-19.40 [facility] Comment on above: Order Comment: 1 wee k prior to FUV Ordered on [facility]# [id number] Result Comment: INTE RPRETIVE INFORMATION: [place] Qnt Free Light Chains Undetected antigen excess is a rare event but cannot be excluded. Free light chain results should always be interpreted in conjunction with other clinical and laboratory findings. Performed By: #### 7 [id number] ####[facility] [address] [place], [place] [id number] Medical Director: Mendoza Whitfield MD [place]/Lambda Free Light Chain Ratio 1.48 Normal 0.26-1.65 [facility] Comment on above: Order Comment: 1 wee k prior to FUV Ordered on [facility]# [id number] Performed By: #### 7 [id number] ####[facility] [address] [place] [address] Medical Director: Mendoza Whitfield MD Lambda Qnt Free Light Chains 23.05 mg/L Normal 5.71-26.30 [facility] Comment on above: Order Comment: 1 wee k prior to FUV Ordered on [facility]# [id number] Result Comment: INTE RPRETIVE INFORMATION: Lambda Qnt Free Light Chains Undetected antigen excess is a rare event but cannot be excluded. Free light chain results should always be interpreted in conjunction with other clinical and laboratory findings. Performed By: #### 7 [id number] ####[facility] [address] [place] [address] Medical Director: Mendoza Whitfield MD Monoclonal Protein Not Applicable Normal <=0.00 So [facility] Comment on above: Order Comment: 1 wee k prior to FUV Ordered on [facility]# [id number] Performed By: #### 7 [id number] ####[facility] [address] [place] [address] Medical Director: Mendoza Whitfield MD SPE Albumin 3.88 g/dL Normal 3.75-5.01 [facility] Comment on above: Order Comment: 1 wee k prior to FUV Ordered on [facility]# [id number] Performed By: #### 7 [id number] ####[facility] [address] [place], [place] [address] Medical Director: Mendoza Whitfield MD SPE Alpha 1 Globulin 0.30 g/dL Normal 0.19-0.46 [facility] Comment on above: Order Comment: 1 wee k prior to FUV Ordered on [facility]# [id number] Performed By: #### 7 [id number] ####[facility] [address]cc[address] [place] [address] Medical Director: Mendoza Whitfield MD SPE Alpha 2 Globulin 1.05 g/dL Normal 0.48-1.05 [facility] Comment on above: Order Comment: 1 wee k prior to FUV Ordered on [facility]# [id number] Performed By: #### 7 [id number] ####[facility] [address] [place] [address] Medical Director: Mendoza Whitfield MD SPE Beta Globulin 1.22 g/dL High 0.48-1.10 [facility] Comment on above: Order Comment: 1 wee k prior to FUV Ordered on [facility]# [id number] Performed By: #### 7 [id number] ####[facility] [address]xe[address] [place] [address] Medical Director: Mendoza Whitfield MD SPE Gamma Globulin 1.16 g/dL Normal 0.62-1.51 [facility] Comment on above: Order Comment: 1 wee k prior to FUV Ordered on [facility]# [id number] Performed By: #### 7 [id number] ####[facility] [address] [place] [address] Medical Director: Mendoza Whitfield MD SPE Total Protein 7.6 g/dL Normal 6.3-8.2 [facility] Comment on above: Order Comment: 1 wee k prior to FUV Ordered on [facility]# [id number] Performed By: #### 7 [id number] ####[facility] [address] [place], [place] [id number]) [id number] Director: Mendoza Whitfield MD SPEP/GAYLE Interp See Note [facility] Comment on above: Order Comment: 1 wee k prior to FUV Ordered on Fin# [id number] Result Comment: Seru m protein electrophoresis is negative for monoclonal protein. GAYLE gel shows a normal pattern; no monoclonal proteins seen. Performed By: #### 7 [id number] ####[facility] [address] [place] [id number] Medical Director: Mendoza Whitfield MD B2M Son 10-02-2024 B2MS 3.0 mg/L Normal <=3.0 [facility] Comment on above: Order Comment: 1 wee k prior to FUV Ordered on Fin# [id number] Result Comment: Perf ormed By: [employer] [address] [place] [address] Water Engineer: Emanuel Haney MD, PhD CLIA Number: [id number] Performed By: #### 6 [id number] #### [facility] [address] [place], [place] [address] Warp Drawer: Mendoza Whitfield MD AUTO DIFFon 10-01-2024 Baso Count 0.06 x1000 Normal 0.00-0.20 [facility] Comment on above: Order Comment: 1 wee k prior to FUV Performed By: #### 1 47937, 915485, 7433669, 052344, 299027, 674968, 484950 #### [facility] [address] [place], [place] [address] Warp Drawer: Mendoza Whitfield MD Basos % 0.6 % Normal [facility] Comment on above: Order Comment: 1 wee k prior to FUV Performed By: #### 1 44206, 870436, 3538198, 635829, 389002, 297358, 634827 #### [facility] [address] [place], [place] [address] Warp Drawer: Mendoza Whitfield MD Eos Count 0.12 x1000 Normal 0.00-0.50 [facility] Comment on above: Order Comment: 1 wee k prior to FUV Performed By: #### 1 92950, 558239, 8806969, 302816, 615070, 798140, 947181 #### [facility] [address] [place] [address] Warp Drawer: Mendoza Whitfield MD Eosinophils/100 WBC (Bld) 1.2 % Normal [facility] Comment on above: Order Comment: 1 wee k prior to FUV Performed By: #### 1 10356, 194003, 1264791, 914182, 034202, 943054, 903597 #### [facility] [address] [place] [address] Warp Drawer: Mendoza Whitfield MD Lymph Count 2.34 x1000 Normal 1.20-4.80 [facility] Comment on above: Order Comment: 1 wee k prior to FUV Performed By: #### 1 49981, 352378, 1821641, 179997, 991433, 181477, 885381 #### [facility] [address] [place] [address] Warp Drawer: Mendoza Whitfield MD Lymphocytes/100 WBC (Bld) 23.8 % Normal [facility] Comment on above: Order Comment: 1 wee k prior to FUV Performed By: #### 1 11047, 867700, 6388306, 150940, 985086, 074829, 825950 #### [facility] [address] [place] [address] Warp Drawer: Mendoza Whitfield MD Spalding Count 1.07 x1000 High 0.10-1.00 [facility] Comment on above: Order Comment: 1 wee k prior to FUV Performed By: #### 1 80270, 523849, 0796822, 306909, 982393, 505406, 094547 #### [facility] [address] [place] [address] Warp Drawer: Mendoza Whitfield MD Monocytes/100 WBC (Bld) 10.9 % Normal [facility] Comment on above: Order Comment: 1 wee k prior to FUV Performed By: #### 1 49926, 229910, 4299974, 949094, 091486, 070830, 002647 #### [facility] [address] [place] [address] Warp Drawer: Mendoza Whitfield MD Neutrophil Count (ANC) 6.25 x1000 Normal 1.40-8.80 [facility] Comment on above: Order Comment: 1 wee k prior to FUV Performed By: #### 1 90146, 017660, 4677361, 616424, 311373, 733553, 771227 #### [facility] [address] [place] [address] Warp Drawer: Mendoza Whitfield MD Neutrophils/100 WBC (Bld) 63.5 % Normal [facility] Comment on above: Order Comment: 1 wee k prior to FUV Performed By: #### 1 27930, 839254, 8218861, 014085, 519357, 900810, 528113 #### [facility] [address] [place] [address] Warp Drawer: Mendoza Whitfield MD Red Blood Cell Morphology See Notes Abnormal [facility] Comment on above: Order Comment: 1 wee k prior to FUV Result Comment: Anis ocytosis 1+ Performed By: #### 1 31578, 948462, 0262058, 382753, 314273, 484957, 228010 #### [facility] [address] [place] [address] Warp Drawer: Mendoza Whitfield MD B12 FOLATEon 10-01-2024 Cobalamin (Vitamin B12) [Mass/Vol] 376 pg/mL Normal 211-911 [facility] Comment on above: Order Comment: 1 wee k prior to FUV Ordered on [facility]# [id number] Performed By: #### 1 48382, 732372, 4339459, 893239, 144722, 201524, 349248 ####[facility] [address] [place] [address] Medical Director: Mendoza Whitfield MD FOLATE 12.8 ng/mL Normal 5.4-17.5 [facility] Comment on above: Order Comment: 1 wee k prior to FUV Ordered on Fin# [id number] Result Comment: Meth otrexate and leucovorin interfere with folate measurement because these drugs cross-react with folate binding proteins. Performed By: #### 1 57347, 024002, 0290242, 079892, 627650, 467613, 650351 ####[facility] [address] [place] [address] Medical Director: Mendoza Whitfield MD COMPMETAon 10-01-2024 Albumin [Mass/Vol] 3.7 g/dL Normal 3.4-5.0 [facility] Comment on above: Order Comment: 1 wee k prior to FUV Ordered on Fin# [id number] Performed By: #### 1 99179, 443281, 8208377, 643235, 555177, 814899, 467752 #### [facility] [address] [place] [address] Warp Drawer: Mendoza Whitfield MD Albumin/Globulin [Mass ratio] 0.9 {ratio} Normal [facility] Comment on above: Order Comment: 1 wee k prior to FUV Ordered on Fin# [id number] Performed By: #### 1 83997, 274610, 5525681, 364705, 137840, 765874, 148903 #### [facility] [address] [place] [address] Warp Drawer: Mendoza Whitfield MD Alk Phos 118 unit/L High 45-117 [facility] Comment on above: Order Comment: 1 wee k prior to FUV Ordered on Fin# [id number] Performed By: #### 1 51458, 747251, 1114552, 130960, 163061, 701123, 539345 #### [facility] [address] [place] [address] Warp Drawer: Mendoza Whitfield MD Bilirubin [Mass/Vol] 0.30 mg/dL Normal 0.30-1.20 [facility] Comment on above: Order Comment: 1 wee k prior to FUV Ordered on Fin# [id number] Result Comment: Use of this assay is not recommended for patients undergoing treatment with eltrombopag due to the potential for falsely elevated results. Performed By: #### 1 32183, 350781, 1098751, 517677, 214771, 761094, 842806 #### [facility] [address] [place], [place] [address] Warp Drawer: Mendoza Whitfield MD Calcium [Mass/Vol] 9.7 mg/dL Normal 8.7-10.4 [facility] Comment on above: Order Comment: 1 wee k prior to FUV Ordered on Fin# [id number] Performed By: #### 1 99415, 897585, 7126345, 447724, 647438, 060275, 439809 #### [facility] [address] [place] [address] Warp Drawer: Mendoza Whitfield MD Chloride [Moles/Vol] 98 mmol/L Normal 98-107 [facility] Comment on above: Order Comment: 1 wee k prior to FUV Ordered on Fin# [id number] Performed By: #### 1 30278, 274238, 6222758, 562880, 338669, 893487, 496421 #### [facility] [address] [place] [address] Warp Drawer: Mendoza Whitfield MD CO2 [Moles/Vol] 27.0 mmol/L Normal 20.0-31.0 [facility] Comment on above: Order Comment: 1 wee k prior to FUV Ordered on Fin# [id number] Performed By: #### 1 09293, 526217, 7985900, 845405, 480354, 487885, 851048 #### [facility] [address] [place] [address] Warp Drawer: Mendoza Whitfield MD Creatinine [Mass/Vol] 1.0 mg/dL High 0.5-0.8 [facility] Comment on above: Order Comment: 1 wee k prior to FUV Ordered on [facility]# [id number] Performed By: #### 1 48959, 094254, 9679943, 224374, 262288, 395350, 283476 #### [facility] [address] [place] [address] Warp Drawer: Mendoza Whitfield MD GFR AA >60 Normal [facility] Comment on above: Order Comment: 1 wee k prior to FUV Ordered on [facility]# [id number] Result Comment: Afri can Uzbek GFR Calc Medical judgement is necessary to [...] MDRD GFR equation Performed By: #### 1 75216, 691269, 6641335, 558136, 959193, 772840, 269146 #### [facility] [address] [place] [address] Warp Drawer: Mendoza Whitfield MD Globulin (S) [Mass/Vol] 4.2 g/dL Normal [facility] Comment on above: Order Comment: 1 wee k prior to FUV Ordered on [facility]# [id number] Performed By: #### 1 46460, 502789, 2785167, 236876, 603139, 621889, 624008 #### [facility] [address] [place] [address] Warp Drawer: Mendoza Whitfield MD Glomerular Filtration Rate 54 mL/min/1.73m? Normal [facility] Comment on above: Order Comment: 1 wee k prior to FUV Ordered on Fin# [id number] Result Comment: Non- GFR Calc Medical judgement [...] MDRD GFR equation Performed By: #### 1 90643, 203406, 3939785, 573976, 334798, 824401, 991259 #### [facility] [address] [place] [address] Warp Drawer: Mendoza Whitfield MD Glucose [Mass/Vol] 115 mg/dL High 74-106 [facility] Comment on above: Order Comment: 1 wee k prior to FUV Ordered on Fin# [id number] Performed By: #### 1 32886, 935680, 0257432, 573726, 784097, 833830, 643894 #### [facility] [address] [place] [address] Warp Drawer: Mendoza Whitfield MD GOT 20 unit/L Normal 15-37 [facility] Comment on above: Order Comment: 1 wee k prior to FUV Ordered on Fin# [id number] Performed By: #### 1 89162, 431851, 8398910, 906957, 293862, 280797, 414480 #### [facility] [address] [place] [address] Warp Drawer: Mendoza Whitfield MD GPT 13 unit/L Normal 10-49 [facility] Comment on above: Order Comment: 1 wee k prior to FUV Ordered on Fin# [id number] Performed By: #### 1 31831, 051072, 5442755, 906129, 034020, 817520, 723922 #### [facility] [address] [place] [address] Warp Drawer: Mendoza Whitfield MD Osmolality [Osmolality] 271 mosm/kg Low 275-295 [facility] Comment on above: Order Comment: 1 wee k prior to FUV Ordered on Fin# [id number] Performed By: #### 1 76116, 558745, 9501067, 101986, 633830, 021504, 544856 #### [facility] [address] [place] [address] Warp Drawer: Mendoza Whitfield MD Potassium [Moles/Vol] 4.0 mmol/L Normal 3.5-5.1 [facility] Comment on above: Order Comment: 1 wee k prior to FUV Ordered on Fin# [id number] Performed By: #### 1 57406, 177480, 3445348, 234858, 548079, 279298, 549954 #### [facility] [address] [place], [place] [address] Warp Drawer: Mendoza Whitfield MD Protein [Mass/Vol] 7.9 g/dL Normal 5.7-8.2 [facility] Comment on above: Order Comment: 1 kvnge k prior to FUV Ordered on Fin# [id number] Result Comment: Tota l Protein results may be increased in patients receiving dextran as a blood volume networking engineer Performed By: #### 1 38656, 067145, 1033057, 966964, 196865, 804775, 000788 #### [facility] [address] [place] [address] Warp Drawer: Mendoza Whitfield MD Sodium [Moles/Vol] 134 mmol/L Low 135-145 [facility] Comment on above: Order Comment: 1 wee k prior to FUV Ordered on Fin# [id number] Performed By: #### 1 38413, 514618, 8951809, 026734, 855809, 382528, 587334 #### [facility] [address] [place] [address] Warp Drawer: Mendoza Whitfield MD Urea nitrogen [Mass/Vol] 18 mg/dL Normal 9-23 [facility] Comment on above: Order Comment: 1 wee k prior to FUV Ordered on Fin# [id number] Result Comment: - Ve nipuncture should occur prior to N-Acetyl Cysteine (NAC) or Metamizole (Sulpyrine) administration due to the potential for falsely depressed results. - Blood samples from some patients with monoclonal gammopathies may produce falsely elevated results Performed By: #### 1 39101, 665567, 6705186, 334957, 778131, 923516, 899987 #### [facility] [address] [place] [address] Warp Drawer: Mendoza Whitfield MD Urea nitrogen/Creatinine [Mass ratio] 18.0 mg/mg Normal [facility] Comment on above: Order Comment: 1 wee k prior to FUV Ordered on Fin# [id number] Performed By: #### 1 23678, 801166, 3509862, 043222, 398068, 699867, 321909 #### [facility] [address] [place] [address] 9042730 Warp Drawer: Mendoza Whitfield MD FERRITINon 10-01-2024 Ferritin [Mass/Vol] 16 ng/mL Normal 10-291 [facility] Comment on above: Order Comment: 1 wee k prior to FUV Ordered on Fin# [id number] Result Comment: Seru m ferritin values are elevated in the presence of the following conditions and do not reflect actual body iron stores: - Inflammation - Significant tissue destruction - Liver disease - Malignancies such as acute leukemia and Hodgkin?s disease - Therapy with iron supplements Performed By: #### 1 61886, 647284, 1167794, 290767, 426141, 449566, 423134 ####[facility] [address] [place], [place] [address] Medical Director: Mendoza Whitfield MD HEMOon 10-01-2024 DIFF? No Normal [facility] Comment on above: Order Comment: 1 wee k prior to FUV Performed By: #### 1 22881, 345050, 3621769, 217953, 699084, 314914, 346934 #### [facility] [address] [place] [address] Warp Drawer: Mendoza Whitfield MD Erythrocyte distribution width (RBC) [Ratio] 16.9 % High 11.5-14.5 [facility] Comment on above: Order Comment: 1 wee k prior to FUV Performed By: #### 1 57357, 634149, 2077179, 610504, 179816, 308184, 848409 #### [facility] [address] [place] [address] Warp Drawer: Mendoza Whitfield MD Hematocrit (Bld) [Volume fraction] 43.1 % Normal 36.0-46.0 [facility] Comment on above: Order Comment: 1 wee k prior to FUV Performed By: #### 1 89551, 502989, 1628984, 508806, 557530, 438896, 776689 #### [facility] [address] [place] [address] Warp Drawer: Mendoza Whitfield MD Hemoglobin (Bld) [Mass/Vol] 14.1 g/dL Normal 12.0-16.0 [facility] Comment on above: Order Comment: 1 wee k prior to FUV Performed By: #### 1 02897, 945374, 6667862, 716546, 266523, 338044, 656627 #### [facility] [address] [place] [address] Warp Drawer: Mendoza Whitfield MD Instr WBC 9.8 Normal [facility] Comment on above: Order Comment: 1 wee k prior to FUV Performed By: #### 1 25242, 415007, 5306521, 551201, 545533, 948182, 348421 #### [facility] [address] [place] [address] Warp Drawer: Mendoza Whitfield MD MCH (RBC) [Entitic mass] 26.7 pg Low 27.0-34.0 [facility] Comment on above: Order Comment: 1 wee k prior to FUV Performed By: #### 1 67624, 604476, 9570309, 053876, 353722, 175743, 424776 #### [facility] [address] [place] [address] Warp Drawer: Mendoza Whitfield MD MCHC (RBC) [Mass/Vol] 32.7 g/dL Normal 32.0-37.0 [facility] Comment on above: Order Comment: 1 wee k prior to FUV Performed By: #### 1 92363, 992665, 8158626, 285108, 927253, 556955, 467690 #### [facility] [address] [place] [address] Warp Drawer: Mendoza Whitfield MD MCV (RBC) [Entitic vol] 81.6 fL Normal 80.0-100.0 [facility] Comment on above: Order Comment: 1 wee k prior to FUV Performed By: #### 1 20340, 528241, 5132177, 727120, 309441, 054148, 332252 #### [facility] [address] [place] [address] 1155430 Warp Drawer: Mendoza Whitfield MD Nucleated RBC 0 /100WBC Normal [facility] Comment on above: Order Comment: 1 wee k prior to FUV Performed By: #### 1 20103, 568395, 6781384, 231945, 681865, 958958, 260999 #### [facility] [address] [place] [address] Warp Drawer: Mendoza Whitfield MD Platelet 346 x10 Normal 150-450 [facility] Comment on above: Order Comment: 1 wee k prior to FUV Performed By: #### 1 74370, 323117, 3031681, 964410, 569260, 424833, 151275 #### [facility] [address] [place] [address] Warp Drawer: Mendoza Whitfield MD Platelet mean volume (Bld) [Entitic vol] 6.5 fL Low 7.4-10.4 [facility] Comment on above: Order Comment: 1 wee k prior to FUV Performed By: #### 1 42092, 359827, 6558171, 580213, 101226, 276948, 943790 #### [facility] [address] [place] [address] Warp Drawer: Mendoza Whitfield MD RBC 5.28 x10 Normal 4.20-5.40 [facility] Comment on above: Order Comment: 1 wee k prior to FUV Result Comment: Note : RBC morphology is normal unless otherwise stated. Evaluation performed only if differential is requested. Performed By: #### 1 79470, 216880, 9654161, 146112, 609340, 088619, 679484 #### [facility] [address] [place] [address] Warp Drawer: Mendoza Whitfield MD WBC 9.8 x10 Normal 4.5-11.0 [facility] Comment on above: Order Comment: 1 wee k prior to FUV Performed By: #### 1 63243, 826605, 2933539, 821036, 167838, 697053, 098809 #### [facility] [address] [place] [address] Warp Drawer: Mendoza Whitfield MD IRON GROUPon 10-01-2024 Iron [Mass/Vol] 39 ug/dL Low 50-170 [facility] Comment on above: Order Comment: 1 wee k prior to FUV Ordered on [facility]# [id number] Result Comment: Resu lts may be inaccurate if performed within 14 days of IV iron dextran administration. Performed By: #### 1 39989, 780561, 1899412, 900941, 387671, 822835, 469800 ####[facility] [address] [place] [address] Medical Director: Mendoza Whitfield MD Saturation 8.6 % Low 20.0-50.0 [facility] Comment on above: Order Comment: 1 wee k prior to FUV Ordered on Fin# [id number] Performed By: #### 1 64888, 096310, 5566737, 661033, 082446, 938755, 437742 ####[facility] [address] [place] [address] Medical Director: Mendoza Whitfield MD TIBC 453 ug/ml High 250-425 [facility] Comment on above: Order Comment: 1 wee k prior to FUV Ordered on Fin# [id number] Result Comment: Resu lts may be inaccurate if performed within 14 days of IV iron dextran administration. Performed By: #### 1 76356, 591512, 3685316, 158749, 808090, 616405, 317984 ####[facility] [address] [place] [address] Medical Director: Mendoza Whitfield MD LDHon 10-01-2024 LDH 226 unit/L Normal 120-246 [facility] Comment on above: Order Comment: 1 wee k prior to FUV Ordered on Fin# [id number] Performed By: #### 1 10083, 445552, 6555906, 677529, 592212, 942079, 112741 #### [facility] [address] [place] [address] Warp Drawer: MD Kristi Cheung 08-23-2024 CNPN Telephone ([facility]) PAU MUÑOZ ([id number]) 1950 F Date Time Provider Department 08/23/24 [facility] During your visit today, we recorded the following information about you: Pau Lanza 08/23/2024 10:40 AM Signed Patient need a refill on her gabapentin. The pharmacy is telling the patient she has no refills left. Send to [facility] on [facility] in [place] [phone] Angeli Greenfield LPN 08/23/2024 11:17 AM Signed [...] Status:Closed by ANGELI GREENFIELD on 08/23/24 Normal [facility] US CAROTID ARTERY DUPLE X BILATERALon 08-22-2024 [facility] US CAROTID ARTERY DUPLEX BILATERAL [place] [address] and Vascular Lab Report [facility] US CAROTID ARTERY DUPLEX BILATERAL Patient Name: PAU Seay Physician: [id number] Nolvia Lopez MD, RPVI Study Date: 08/22/2024 Ordering Physician: [id number] JAYLON KISER MRN/PID: [id number] Technologist: Emili Rascon RVT Technologist 2: Date of /Age: 1 1950 / 74 years Gender: F Admission Status: Outpatient Location Performed: [facility] Diagnosis/ICD: Occlusion and stenosis of left carotid artery-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 G[address]qgqha04072 [place] [address] Medical Director: Mendoza Whitfield MD Basos % 0.8 % Normal [facility] Comment on above: Performed By: #### 9 232193, 160593, 872564, [id number] ####[facility] Wiytdtfd18684 [place] [address] Medical Director: Mendoza Whitfield MD Eos Count 0.10 x1000 Normal 0.00-0.50 [facility] Comment on above: Performed By: #### 9 133925, 652149, 260369, [id number] ####[facility] [address] [place] [address] Medical Director: Mendoza Whitfield MD Eosinophils/100 WBC (Bld) 1.1 % Normal [facility] Comment on above: Performed By: #### 9 482364, 805248, 391169, [id number] ####[facility] Xnngxnsy96401 [place] [address] [facility] Director: Mendoza Whitfield MD Lymph Count 1.70 x1000 Normal 1.20-4.80 [facility] Comment on above: Performed By: #### 9 303475, 990998, 535826, [id number] ####[facility] Kvefjntw67432 [place] [address] Medical Director: Mendoza Whitfield MD Lymphocytes/100 WBC (Bld) 15.7 % Normal [facility] Comment on above: Performed By: #### 9 004317, 658407, 241907, [id number] ####[facility] Kksmtdus51429 [place] [address] Medical Director: Mendoza Whitfield MD Spalding Count 1.00 x1000 Normal 0.10-1.00 [facility] Comment on above: Performed By: #### 9 831736, 718839, 233166, [id number] ####[facility] Bsbikute98470 [place] [address] Medical Director: Mendoza Whitfield MD Monocytes/100 WBC (Bld) 9.0 % Normal [facility] Comment on above: Performed By: #### 9 441612, 438689, 546411, [id number] ####[facility] Opjjmxuj71329 [place] [address] Medical Director: Mendoza Whitfield MD Neutrophil Count (ANC) 7.80 x1000 Normal 1.40-8.80 [facility] Comment on above: Performed By: #### 9 055771, 575218, 761883, [id number] ####[facility] Nnuhphjg49939 [place] [address] Medical Director: Mendoza Whitfield MD Neutrophils/100 WBC (Bld) 73.4 % Normal [facility] Comment on above: Performed By: #### 9 680503, 095600, 715288, [id number] ####[facility] Wcoaqrma34449 [place] [address] Medical Director: Mendoza Whitfield MD Red Blood Cell Morphology See Notes Abnormal [facility] Comment on above: Result Comment: Anis ocytosis 1+ Performed By: #### 9 726194, 952450, 437496, [id number] ####[facility] Xnvptyuo40387 [place] [address] Medical Director: Mendoza Whitfield MD COMPMETAon 08-09-2024 GFR Estimated 54 Normal [facility] Comment on above: Result Comment: The GFR is calculated and is Age, Sex, and Race adjusted. Performed By: #### 9 508749, 509635, 523709, [id number] ####[facility] Kjprzgtl23446 [place] [address] Medical Director: Mendoza Whitfield MD Albumin [Mass/Vol] 3.4 g/dL Normal 3.4-5.0 [facility] Comment on above: Performed By: #### 9 350845, 869518, 010666, [id number] ####[facility] Bztsascs78875 [place], [place] [address]) [phone] Director: Mendoza Whitfield MD Albumin/Globulin [Mass ratio] 0.8 {ratio} Normal [facility] Comment on above: Performed By: #### 9 274331, 457436, 934220, [id number] ####[facility] [address]ztvv92459 [place] [id number]) [phone] Director: Mendoza Whitfield MD Alk Phos 131 unit/L High 45-117 [facility] Comment on above: Performed By: #### 9 989253, 763563, 833599, [id number] ####[facility] Lfsvlgjg90844 [place], [place] [address]) [phone] Director: Mendoza Whitfield MD Bilirubin [Mass/Vol] 0.30 mg/dL Normal 0.30-1.20 [facility] Comment on above: Result Comment: Use of this assay is not recommended for patients undergoing treatment with eltrombopag due to the potential for falsely elevated results. Performed By: #### 9 145844, 400011, 545232, [id number] ####[facility] Bssghrgc21896 [place], [place] [address]) [phone] Director: Mendoza Whitfield MD Calcium [Mass/Vol] 9.4 mg/dL Normal 8.5-10.5 [facility] Comment on above: Performed By: #### 9 451491, 430309, 561189, [id number] ####[facility] Rljvfbhv90092 [place], [place] [address]) [phone] Director: Mendoza Whitfield MD Chloride [Moles/Vol] 98 mmol/L Low 100-109 [facility] Comment on above: Performed By: #### 9 562715, 793766, 473623, [id number] ####[facility] Dtgkbkpb93984 [place] [address] Medical Director: Mendoza Whitfield MD CO2 [Moles/Vol] 29.2 mmol/L Normal 21.0-32.0 [facility] Comment on above: Performed By: #### 9 940853, 866393, 993116, [id number] ####[facility] Ddidwxmo92981 [place] [address] Medical Director: Mendoza Whitfield MD Creatinine [Mass/Vol] 1.0 mg/dL Normal 0.6-1.0 [facility] Comment on above: Performed By: #### 9 030533, 427975, 652849, [id number] ####[facility] Xkdtcsca31060 [place] [address] Medical Director: Mendoza Whitfield MD Globulin (S) [Mass/Vol] 4.3 g/dL Normal [facility] Comment on above: Performed By: #### 9 091872, 488021, 704893, [id number] ####[facility] [address]ojwqrc32751 [place] [address] Medical Director: Mendoza Whitfield MD Glucose [Mass/Vol] 149 mg/dL High 72-100 [facility] Comment on above: Result Comment: Fabiana puncture should occur prior to sulfasalazine administration due to the potential for falsely depressed results. Venipuncture should occur prior to sulfapyridine administration due to the potential falsely elevated results. Baseline assay values before administration of sulfasalazine and sulfapyridine therapy would not be affected. Performed By: #### 9 253880, 106741, 521607, [id number] ####[facility] Dfrddzkz59116 [place] [address] Medical Director: Mendoza Whitfield MD GOT 22 unit/L Normal 15-37 [facility] Comment on above: Result Comment: Fabiana puncture should occur prior to sulfasalazine administration due to the potential for falsely depressed results. Baseline assay values before administration of sulfasalazine and sulfapyridine therapy would not be affected. Performed By: #### 9 929289, 963865, 051658, [id number] ####[facility] Qwmkvawm22636 [place] [address] Medical Director: Mendoza Whitfield MD GPT 26 unit/L Normal 14-59 [facility] Comment on above: Result Comment: Fabiana puncture should occur prior to sulfasalazine administration due to the potential for falsely depressed results. Baseline assay values before administration of sulfasalazine and sulfapyridine therapy would not be affected. Performed By: #### 9 398622, 175515, 431485, [id number] ####[facility] Qggremjt42524 [place], [place] [address]) [phone] Director: Mendoza Whitfield MD Osmolality [Osmolality] 277 mosm/kg Normal 275-295 [facility] Comment on above: Performed By: #### 9 440706, 663581, 392573, [id number] ####[facility] Kawuuglf28106 [place] [address] Medical Director: Mendoza Whitfield MD Potassium [Moles/Vol] 3.9 mmol/L Normal 3.5-5.1 [facility] Comment on above: Performed By: #### 9 003189, 194338, 948241, [id number] ####[facility] Jzigcbxh26710 [place], [place] [address]) [phone] Director: Mendoza Whitfield MD Protein [Mass/Vol] 7.7 g/dL Normal 6.0-8.5 [facility] Comment on above: Performed By: #### 9 008301, 571574, 768105, 567138313 ####[facility] Pytiinva33699 [place], [place] [address] Medical Director: Mendoza Whitfield MD Sodium [Moles/Vol] 136 mmol/L Normal 135-145 [facility] Comment on above: Performed By: #### 9 972239, 714609, 098258, [id number] ####[facility] Iwembaoo80855 [place] [address] Medical Director: Mendoza Whitfield MD Urea nitrogen [Mass/Vol] 18 mg/dL Normal 10-20 [facility] Comment on above: Performed By: #### 9 109796, 801607, 922608, [id number] ####[facility] Uqikfszk06971 [place] [address] Medical Director: Mendoza Whitfield MD Urea nitrogen/Creatinine [Mass ratio] 18.0 mg/mg Normal [facility] Comment on above: Performed By: #### 9 497305, 898393, 096939, [id number] ####[facility] Vumvnoxx26082 [place] [address] Medical Director: Mendoza Whitfield MD ED Physician Reporton [...] complete this note and may contain unintentional emergency physician errors. Systolic Blood Pressure: 156 mmHg High [...] STAFF Within 3 to 5 days [address] [place] [address]- [phone] Business (1) Additional Instructions: Assessment This Visit Diagnosis Shortness of breath R06.02 Orders: Cardiac Monitoring, Continuous, Constant Order CBCWD(CBC WITH DIFF), STAT, 08/09/2024 00:42:00 EDT COMPMETA(CMP), STAT, 08/09/2024 00:42:00 EDT ED Discharge to Home, 08/09/2024 01:34:00 EDT, Constant Order EKG, 08/09/2024 00:10:00 EDT, Shortness of Breath, Pacemaker, Wheelchair, Heart Meds Unknown at this time, RASHMI, No EKG/[place] Requested proBNP, STAT, 08/09/2024 00:42:00 EDT TROPONIN [...] bowel syndr (more content not included)... Normal [facility] HEMOon 08-09-2024 DIFF? No Normal [facility] Comment on above: Performed By: #### 9 626609, 462883, 481537, [id number] ####[facility] Vjrxgckp96087 [place] [address] Medical Director: Mendoza Whitfield MD Erythrocyte distribution width (RBC) [Ratio] 16.3 % High 11.5-14.5 [facility] Comment on above: Performed By: #### 9 496121, 152515, 598639, [id number] ####[facility] Ksocinlm63591 [place], [place] [address]) [phone] Director: Mendoza Whitfield MD Hematocrit (Bld) [Volume fraction] 40.9 % Normal 36.0-46.0 [facility] Comment on above: Performed By: #### 9 437951, 173385, 797643, 806294973 ####[facility] Hzjtajaj66200 [place], [place] [address]) [phone] Director: Mendoza Whitfield MD Hemoglobin (Bld) [Mass/Vol] 13.9 g/dL Normal 12.0-16.0 [facility] Comment on above: Performed By: #### 9 911580, 712355, 513759, 562750739 ####[facility] [address] [place] [id number]) [phone] Director: Mendoza Whitfield MD Instr WBC 10.7 Normal [facility] Comment on above: Performed By: #### 9 250054, 962028, 621036, 645398749 ####[facility] Zjtphueu32284 [place], [place] [address]) [phone] Director: Mendoza Whitfield MD MCH (RBC) [Entitic mass] 27.6 pg Normal 27.0-34.0 [facility] Comment on above: Performed By: #### 9 728322, 138203, 885662, 673752629 ####[facility] Ajfbgnfj66281 [place], [place] [address]) [phone] Director: Mendoza Whitfield MD MCHC (RBC) [Mass/Vol] 34.0 g/dL Normal 32.0-37.0 [facility] Comment on above: Performed By: #### 9 784418, 924926, 255352, 519590141 ####[facility] Ugesfdeu67090 [place], [place] [address]) [phone] Director: Mendoza Whitfield MD MCV (RBC) [Entitic vol] 81.0 fL Normal 80.0-100.0 [facility] Comment on above: Performed By: #### 9 895155, 577092, 515580, [id number] ####[facility] Zhmaddsd85201 [place] [address] Medical Director: Mendoza Whitfield MD Nucleated RBC 0 /100WBC Normal [facility] Comment on above: Performed By: #### 9 540542, 752932, 116554, [id number] ####[facility] [address] [place] [address] Medical Director: Mendoza Whitfield MD Platelet 369 x10 Normal 150-450 [facility] Comment on above: Performed By: #### 9 514136, 140643, 604682, [id number] ####[facility] [address] [place] [address] Medical Director: Mendoza Whitfield MD Platelet mean volume (Bld) [Entitic vol] 7.0 fL Low 7.4-10.4 [facility] Comment on above: Performed By: #### 9 620997, 041525, 579216, [id number] ####[facility] Bnxrjtpq10567 [place] [address] [facility] Director: Mendoza Whitfield MD RBC 5.06 x10 Normal 4.20-5.40 [facility] Comment on above: Result Comment: Note : RBC morphology is normal unless otherwise stated. Evaluation performed only if differential is requested. Performed By: #### 9 761148, 406038, 408910, [id number] ####[facility] Gyjumfmr01997 [place] [address] Medical Director: Mendoza Whitfield MD WBC 10.7 x10 Normal 4.5-11.0 [facility] Comment on above: Performed By: #### 9 051376, 353356, 012595, 478965386 ####[facility] Ravsqwaq74035 [place] [address] Medical Director: Mendoza Whitfield MD TROPONIN HS SINGLE DRAWon Troponin HS Single Draw 18 pg/mL Normal 3-54 [facility] Comment on above: Performed By: #### 9 898782, 547466, 973719, [id number] ####[facility] Uqlokkzx51396 [place] [address] Medical Director: Mendoza Whitfield MD XR CHEST [...] TREJO MD Signed Out: 08/09/24 00:38:07 Normal [facility] proBNPon 08-09-2024 Natriuretic peptide B (Bld) [Mass/Vol] 211 pg/mL High 0-124 [facility] Comment on above: Result Comment: Acut e CHF Rule-in: less than 50 yrs old greater than or equal to 450 pg/ml greater than 50 yrs old greater than or equal to 900 pg/ml Performed By: #### 2 4069873 ####[facility] Jzwryvka12705 [place] [address] Medical Director: Mendoza Whitfield MD Surgery Visit Reporton 07-24 Surgery Visit Report [facility] [address] [place] [address]. [address] [place] [address] OFFICE VISIT Date of Service: 07/24/24 MR#: [id number] Acct: [id number] Name: PAU MUÑOZ Rep #: [id number] : 1950 Provider: Dr. Nawaf torres MD Age/Sex: 74/F Location: [facility] Status: Signed Intake Vital Signs 07/17/24 10:26 Height 5 ft Intake Visit Reasons: Right lumpectomy DOS 07/17 Chief Complaint: BIRADS 4 Membership Correspondent Required: No Is patient in pain?: No [...] Op Diagnoses Lump of right breast N63.10 COUNTS INCLUDE 234 BEDS AT [facility] Medical History Blood disorder Wears hearing aid [...] well postoperat (more content not included)... Normal [facility] POCT glycosylated hemoglobin (Hb A1C) manually resultedon 07-22-2024 HbA1c (Bld) [Mass fraction] 7 % Abnormal 4.2 - 6.5 % [facility] Work Phone: Interpretation and review of laboratory results Abnormal [facility] Work Phone: [facility] Work Phone: Protime w/INR Fingerstickon 07-19-2024 INR Coag (PPP) [Relative time] 1.2 {INR} Normal [facility] Comment on above: Result Comment: Crit ical Value > 4.0 Performed By: #### L 9200.0000 ####[facility] [address] [place], [place], [id number] Protime Coagsen 14.3 SEC Normal 11.7-14.9 [facility] Comment on above: Performed By: #### L 9200.0000 ####[facility] [address] [place], [address] Discharge Instructionon 07-06 Discharge Instruction [facility] Medical Records Department [address] [place] [address] Instructions for Home/Discharge Instructions 07/17/24 1215 MR#: [id number] Acct: [id number] Name: PAU MUÑOZ Rep #: [id number] : 1950 74 From: Nawaf Mccarthy MD PCP: Dr. Ronit Doan, DO Status:REG [facility] Discharge Instructions Diet Discharge Diet: Light diet [...] Nawaf Mccarthy Primary Care Provider: Ronit Doan Print Language: Nigerien Discharge Orders/Prescriptions Prescriptions: New hydrocodone-acetaminop hen 5-325 [...] CC: Dr. Ronit Doan DO Signed Normal [facility] Immunohistochemical Stainson 07-17-2024 Immunohistochemical Stains ---- Patient Age/Sex Location Account Attending Physician ---- PAU MUÑOZ 74/F [facility] [id number] Dr. Nawaf Mccarthy MD ---- Specimen: [id number] Received: 07/18/24 Status: NIKI Fernandez Num: [id number] Spec Type: BREAST Subm Dr: Dr. Nawaf [...] labeled with the patient's name and designated right breast lumpectomy, long stitch-lateral, short stitch-superior. Cold ischemia time is not indicated on [...] ink. No distinct masses are identified. Multiple commercial representative sections are submitted in 10 cassettes. 10 07/19/24 Cassette summary: A1- lateral perpendicular margin A2,A3- slice #2 A4,A5- slice #3 A6- inferior half of slice #6 A7- inferior half of slice #7 A8- superior half of slice #8 ---- Patient Age/Sex Location Account Attending Physician ---- PAU MUÑOZ 74/F [facility] [id number] Dr. Nawaf Mccarthy MD ---- A9- medial perpendicular margin A10- superior half of slice #4 CPT: 89950, 27954, 61328 ---- Patient Age/Sex Location Account Attending Physician ---- PAU MUÑOZ 74/F [facility] [id number] Dr. Nawaf Mccarthy MD ---- Signed (signature on file) Dr. Soniya Culp MD 07/29/24 1058 ---- Normal [facility] Comment on above: Performed By: #### P TERRY ####[facility] [address] [place], [place], [id number] MR/POSTOP.ANErosio 07-17-2024 MR/POSTOP.ANE [facility] Medical Records Department [address] [place] [address] Anesthesia Postop Eval I 07/17/24 1234 MR#: [id number] Acct: [id number] Name: PAU MUÑOZ Rep #: [id number] : 1950 74 From: Zoey Aggarwal PCP: Dr. Ronit Doan, DO Status:REG [facility] Y Race: C Location: [place] [address] Anesthesia: Postop Eval I Current Vital Signs [...] Zoey Jara Signature: Date CC: Signed Normal [facility] MR/DFWBUKVB5bq 07-17-2024 MR/POSTOPAN2 [facility] Medical Records Department [address] [place] [address] Anesthesia Postop Eval II 07/17/24 1256 MR#: [id number] Acct: [id number] Name: PAU MUÑOZ Rep #: [id number] : 1950 74 From: Moy Blair MD PCP: Dr. Ronit Doan, DO Status:REG [facility] Y Race: C Location: [place] [address] Anesthesia Postop Eval I Sum Postop Eval Completion status Anesthesia document: Postop Eval 1 completed: Yes Anesthesia Postop Eval I Summary Anesthesia Postop Eval I Summary: Anesthesia Postop Eval I: Assessment Summary Airway patent Yes 07/17/24 12:35 GLUER AND SLICER HAND.GDOTT Spontaneous unlabored Yes 07/17/24 12:35 GL[employer]ER [employer] HAND.GDOTT respirations Mental status Awake,Calm 07/17/24 12:35 GL[employer] HAND.GDOTT nausea No 07/17/24 12:35 GLUER AND SL[employer] HAND.GDOTT Vomiting No 07/17/24 12:35 GLUER AND SLICER HAND.GDOTT Anesthesia Postop Eval I: Fluid Summary Crystalloid volume administer 700 07/17/24 12:35 GLUER AND SLICER HAND.GDOTT (ml) Colloids volume administered ( ml) Blood Product volume administered (ml) Total IV fluid infused 700 07/17/24 12:35 GLUER AND SLICER HAND.GDOTT Anesthesia Postop Eval I: Summary Notes Anesthesia Complication No 07/17/24 12:35 GLUER AND SLICER HAND.GDOTT Anesthesia Complication Comment: Post-operative progress note Anesthesia: Postop Eval II Evaluation Mental status: Awake Pain Level: 0 nausea: No Vomiting: No 07/17/24 1256 Date Moy Blair MD Cosigner Signature: Date CC: Signed Normal [facility] Operative Reporton 5 Operative Report [facility] Medical Records Department [address] [place] [address] Operative Report 07/17/24 1231 MR#: [id number] Acct: [id number] Name: PAU MUÑOZ Rep #: [id number] : 1950 74 From: Nawaf Mccarthy MD PCP: Dr. Ronit Doan, DO Status:REG [facility] Location: [place] [address] Multi Select Codes Integumentary Integumentary CPT Codes: 56726 Bx breast [place] [address] Partial mastectomy Operative Report (Standard) Operative Information Date of Procedure: 07/17/24 Pre-Operative Diagnosis: Right breast mass/abnormal ultrasound Post-Operative Diagnosis: Same Surgery/Procedure Performed: Right breast lumpectomy/excisional biopsy derrick operator: Yes Ict Support Technicians: Karina Middleton Tasks completed by cleaner assistant: Closing and Retracting Additional medical assistant secretary?: No Type of Anesthesia: General and Local [...] taken to recovery in good condition. A HAT LINING PASTER was utilized as a assistant general manager. Her role included skin retraction and assistance with skin closure. Surgical Findings: See operative description Complications Complications: No Admit VTE Documentation VTE Present on Admission: No VTE Mechan Device Prophylaxis: SCD's VTE Pharm Prophylaxis ordered?: No Reason prophylaxis not ordered: Treatment Not Indicated 07/17/24 1246 Cosigner Signature (if applicable): CC: Dr. Ronit Doan DO; Dr. Nawaf Mccarthy MD Signed [facility] MR/PAT.Jaz 07-15-2024 MR/PAT.[facility] Medical Records Department [address] [place] [address] PAT - Anesthesia 07/15/24 1557 MR#: [id number] Acct: [id number] Name: PAU MUÑOZ Rep #: [id number] : 1950 74 From: Moy Blair MD PCP: Dr. 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 Hx Hospitalization No 07/15/24 13:26 Any Problems [...] take am of surgery PONV PONV - gaming worker: PONV - gaming worker Female Yes 07/15/24 13:26 HX of Motion Sickness No 07/15/24 13:26 HX of N/V After Surgery No 07/15/24 13:26 Non-Smoker Yes 07/15/24 13:26 Duration of Surgery greater No 07/15/24 13:26 than 60 minutes Number of Risk Factors 2 07/15/24 13:26 PONV Score Moderate Risk 07/15/24 13:26 Height Weight Height Weight: Anesthesia: Height Weight Height 5 ft 07/11/24 09:21 Respiratory Assessment Respiratory Assessment - gaming worker: Respiratory Tract Infection Hx - gaming worker Hx Respiratory Tract Infection No 07/15/24 13:26 STOP Sleep Apnea STOP Sleep Apnea - gaming worker: STOP Sleep Apnea - gaming worker Hx Hypertension Yes: CONTROLLED ON MED 07/15/24 [...] Tobacco Use History Tobacco Use History - gaming worker: Tobacco Use History - gaming worker Tobacco Use Smoking Status Never smoker 07/15/24 13:26 Hx Tobacco Use No 07/15/24 13:26 Years Smoking Packs Smoked per Day Smoking Cessation Date was within the last 15 years Hx Smoking Cessation Date Hx Smoking Cessation Counseling Hematologic Medial History Hematologic Hx - gaming worker: 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 Normal [facility] Surgery Visit Reporton 07-11 Surgery Visit Report [facility] [address] [place] [address] OFFICE VISIT Date of Service: 07/11/24 MR#: [id number] Acct: [id number] Name: PAU MUÑOZ Rep #: [id number] : 1950 Provider: Dr. Nawaf torres MD Age/Sex: 74/F Location: [facility] Status: Signed Intake Vital Signs 07/11/24 09:21 [...] All of her studies were through the [facility] system. Patient admits that she will only [...] and arthri (more content not included)... Normal [facility] BI MAMMO BILATERAL DIAGNOSTI C TOMOSYNTHESISon 07-05-2024 BI MAMMO BILATERAL DIAGNOSTIC TOMOSYNTHESIS Interpreted By: David Jon, STUDY: BI MAMMO BILATERAL DIAGNOSTIC TOMOSYNTHESIS; BI US BREAST LIMITED RIGHT; 07/05/2024 11:05 am; 07/05/2024 12:01 pm ACCESSION NUMBER(S): [id number]; [id number] ORDERING CLINICIAN: RONIT DOAN INDICATION: History of [...] of the right breast by a registered laundromat worker with elastography. Grayscale and color imaging reviewed. [...] any future breast imaging appointments, please call [phone] ([phone]). MACRO: Critical Finding: See findings. Notification was initiated on 07/05/2024 at 12:59 pm by David Jon. (-YCF-) Instructions: See Impression for specific recommendations. Signed by: David Jon 07/05/2024 1:02 PM Dictation workstation: [id number] [facility] BI US BREAST LIMITED RIGHTon 07-05-2024 BI US BREAST LIMITED RIGHT Interpreted By: David Jon, STUDY: BI MAMMO BILATERAL DIAGNOSTIC TOMOSYNTHESIS; BI US BREAST LIMITED RIGHT; 07/05/2024 11:05 am; 07/05/2024 12:01 pm ACCESSION NUMBER(S): [id number]; [id number] ORDERING CLINICIAN: RONIT DOAN INDICATION: History of [...] of the right breast by a registered laundromat worker with elastography. Grayscale and color imaging reviewed. [...] any future breast imaging appointments, please call [phone] ([phone]). MACRO: Critical Finding: See findings. Notification was initiated on 07/05/2024 at 12:59 pm by David Jon. (-YCF-) Instructions: See Impression for specific recommendations. Signed by: David Jon 07/05/2024 1:02 PM Dictation workstation: [id number] Abnormal [facility] DBT Breast - bilateral diagn osticon 07-05-2024 Radiology Study observation (narrative) [facility] Work Phone: No Panel InformationOrdered By: David Jon on 07-05-2024 Interpretation and review of laboratory results Abnormal [facility] Work Phone: [facility] Work Phone: No Panel Informationon 07-05 Heterogeneous [...] any future breast imaging appointments, please call [phone] ([phone]). MACRO: Critical Finding: See findings. Notification was initiated on 07/05/2024 at 12:59 pm by David Jon. (-YCF-) Instructions: See Impression for specific recommendations. Signed by: David Jon 07/05/2024 1:02 PM Dictation workstation: [id number] [facility] Interpreted By: David Jon, STUDY: BI MAMMO BILATERAL DIAGNOSTIC TOMOSYNTHESIS; BI US BREAST LIMITED RIGHT; 07/05/2024 11:05 am; 07/05/2024 12:01 pm ACCESSION NUMBER(S): [id number]; [id number] ORDERING CLINICIAN: RONIT DOAN INDICATION: History of [...] of the right breast by a registered laundromat worker with elastography. Grayscale and color imaging reviewed. [...] 11:05 am; 07/05/2024 12:01 pm ACCESSION NUMBER(S): [id number]; [id number] ORDERING CLINICIAN: RONIT DOAN INDICATION: History of [...] of the right breast by a registered laundromat worker with elastography. Grayscale and color imaging reviewed. [...] any future breast imaging appointments, please call [phone] ([phone]). MACRO: Critical Finding: See findings. Notification was initiated on 07/05/2024 at 12:59 pm by David Jon. (-YCF-) Instructions: See Impression for specific recommendations. Signed by: David Jon 07/05/2024 1:02 PM Dictation workstation: [id number] [facility] Work Phone: US Breast - right limitedon 07-05-2024 Radiology Study observation (narrative) [facility] Work Phone: INR Coag (Bld) [Relative juanis e]on 06-20-2024 Interpretation and review of laboratory results Abnormal [facility] Work Phone: POC INR 1.8 Abnormal 0.9 - 1.1 [facility] Work Phone: [facility] Work Phone: CBC panel Auto (Bld)on 04-23 Erythrocyte distribution width (RBC) [Ratio] 15.9 % High 11.5-14.5 [facility] Comment on above: Performed By: #### 5 8410-2 #### NITHYA Diamond ([id number]) [facility] ([facility]) [address] [place] [address] 93805 Hematocrit (Bld) [Volume fraction] 46.7 % High 36.0-46.0 [facility] Comment on above: Performed By: #### 5 8410-2 #### NITHYA Diamond ([id number]) [facility] ([facility]) [address] [place] [address] 75186 Hemoglobin (Bld) [Mass/Vol] 14.4 g/dL Normal 12.0-16.0 [facility] Comment on above: Performed By: #### 5 8410-2 #### NITHYA Diamond ([id number]) [facility] ([facility]) [address] [place] [address] 36956 MCH (RBC) [Entitic mass] 26.5 pg Normal 26.0-34.0 [facility] Comment on above: Performed By: #### 5 8410-2 #### NITHYA Diamond ([id number]) [facility] ([facility]) [address] [place] [address] 70387 MCHC (RBC) [Mass/Vol] 30.8 g/dL Low 32.0-36.0 [facility] Comment on above: Performed By: #### 5 8410-2 #### NITHYA Diamond ([id number]) [facility] ([facility]) [address] [place] [address] 31837 MCV (RBC) [Entitic vol] 86 fL Normal 80-100 [facility] Comment on above: Performed By: #### 5 8410-2 #### NITHYA Diamond ([id number]) [facility] ([facility]) [address] [place] [address] 05246 Nucleated RBC/100 WBC (Bld) [Ratio] 0.0 /100 WBCs Normal 0.0-0.0 [facility] Comment on above: Performed By: #### 5 8410-2 #### NITHYA Diamond (18794) [facility] ([facility]) [id number] [place] [address] 54416 Platelets (Bld) [#/Vol] 367 x10*3/uL Normal 150-450 [facility] Comment on above: Performed By: #### 5 8410-2 #### NITHYA Diamond ([id number]) [facility] ([facility]) [address] [place] [address] 77733 RBC (Bld) [#/Vol] 5.43 x10*6/uL High 4.00-5.20 [facility] Comment on above: Performed By: #### 5 8410-2 #### NITHYA Diamond ([id number]) [facility] ([facility]) [address] [place] [address] 81411 WBC (Bld) [#/Vol] 10.0 x10*3/uL Normal 4.4-11.3 [facility] Comment on above: Performed By: #### 5 8410-2 #### NITHYA Diamond ([id number]) [facility] ([facility]) [address] [place] [address] 90589 Comprehensive metabolic 2000 panelon 04-23-2024 Albumin BCP dye [Mass/Vol] 4.3 g/dL Normal 3.4-5.0 [facility] Comment on above: Performed By: #### 2 4323-8 #### NITHYA Diamond ([id number]) [facility] ([facility]) [address] [place] [address] 22919 ALP [Catalytic activity/Vol] 102 U/L Normal 33-136 [facility] Comment on above: Performed By: #### 2 4323-8 #### NITHYA Diamond ([id number]) [facility] ([facility]) [id number] [place] [address] 41933 ALT With P-5'-P [Catalytic activity/Vol] 14 U/L Normal 7-45 [facility] Comment on above: Result Comment: Luna ents treated with Sulfasalazine may generate falsely decreased results for ALT. Performed By: #### 2 4323-8 #### NITHYA Diamond ([id number]) [facility] ([facility]) [address] [place] [address] Anion gap [Moles/Vol] 14 mmol/L Normal 10-20 [facility] Comment on above: Performed By: #### 2 4323-8 #### NITHYA Diamond ([id number]) [facility] ([facility]) [address] [place] [address] 08349 AST With P-5'-P [Catalytic activity/Vol] 18 U/L Normal 9-39 [facility] Comment on above: Performed By: #### 2 4323-8 #### NITHYA Diamond ([id number]) [facility] ([facility]) [id number] [place] [address] 93755 Bilirubin [Mass/Vol] 0.4 mg/dL Normal 0.0-1.2 [facility] Comment on above: Performed By: #### 2 4323-8 #### NITHYA Diamond ([id number]) [facility] ([facility]) [address] [place] [address] Calcium [Mass/Vol] 10.0 mg/dL Normal 8.6-10.6 [facility] Comment on above: Performed By: #### 2 4323-8 #### NITHYA Diamond (85959) [facility] ([facility]) [address] [place] [address] 23740 Chloride [Moles/Vol] 99 mmol/L Normal 98-107 [facility] Comment on above: Performed By: #### 2 4323-8 #### NITHYA Diamond ([id number]) [facility] ([facility]) [address] [place] [address] 33734 CO2 [Moles/Vol] 30 mmol/L Normal 21-32 [facility] Comment on above: Performed By: #### 2 4323-8 #### NITHYA Diamond ([id number]) [facility] ([facility]) [address] [place] [address] Creatinine [Mass/Vol] 1.00 mg/dL Normal 0.50-1.05 [facility] Comment on above: Performed By: #### 2 4323-8 #### NITHYA Diamond ([id number]) [facility] ([facility]) [address] [place] [address] 40232 Glomerular filtration rate/1.73 sq M.predicted 60 mL/min/1.73m*2 Low >60 [facility] Comment on above: Result Comment: Calc ulations of estimated GFR are performed using the 2020 CKD-EPI Study Refit equation without the race variable for the IDMS-Traceable creatinine methods. https://jasn.asnjournals.org/content/early//ASN.7763588 988 Performed By: #### 2 4323-8 #### NITHYA Diamond ([id number]) [facility] ([facility]) [address] [place] [address] 35808 Glucose [Mass/Vol] 130 mg/dL High 74-99 [facility] Comment on above: Performed By: #### 2 4323-8 #### NITHYA Diamond ([id number]) [facility] ([facility]) [address] [place] [address] 96986 Potassium [Moles/Vol] 4.8 mmol/L Normal 3.5-5.3 [facility] Comment on above: Performed By: #### 2 4323-8 #### NITHYA Diamond (37990) [facility] ([facility]) [address] [place] [address] 71043 Protein [Mass/Vol] 7.9 g/dL Normal 6.4-8.2 [facility] Comment on above: Performed By: #### 2 4323-8 #### NITHYA Diamond ([id number]) [facility] ([facility]) [id number] [place] [address] 41752 Sodium [Moles/Vol] 138 mmol/L Normal 136-145 [facility] Comment on above: Performed By: #### 2 4323-8 #### NITHYA Diamond ([id number]) [facility] ([facility]) [address] [place] [address] 21038 Urea nitrogen [Mass/Vol] 17 mg/dL Normal 6-23 [facility] Comment on above: Performed By: #### 2 4323-8 #### NITHYA Diamond ([id number]) [facility] ([facility]) [address] [place] [address] 85094 HbA1c (Bld) [Mass fraction]o n 04-23-2024 Average glucose Estimated from glycated hemoglobin (Bld) [Mass/Vol] 146 mg/dL Normal Not Established [facility] Comment on above: Order Comment: Diagn osis of Diabetes-Adults Non-Diabetic: < or = 5.6% Increased risk for developing diabetes: 5.7-6.4% Diagnostic of diabetes: > or = 6.5% Performed By: #### 4 548-4 #### NITHYA Diamond ([id number]) [facility] ([facility]) [address] [place] [address] 16025 Hemoglobin A1c/Hemoglobin.to esvin 04-23-2024 HbA1c (Bld) [Mass fraction] 6.7 % High See comment [facility] Comment on above: Order Comment: Diagn osis of Diabetes-Adults Non-Diabetic: < or = 5.6% Increased risk for developing diabetes: 5.7-6.4% Diagnostic of diabetes: > or = 6.5% Performed By: #### 4 548-4 #### NITHYA Diamond ([id number]) [facility] ([facility]) [address] [place] [address] 28362 INR Coag (Bld) [Relative juanis e]on 04-23-2024 Interpretation and review of laboratory results Abnormal [facility] Work Phone: POC INR 2.1 Abnormal 0.9 - 1.1 [facility] Work Phone: [facility] Work Phone: Lipid 1996 panelon 12-17-202 4 Cholesterol [Mass/Vol] 166 mg/dL Normal 0-199 [facility] Comment on above: Result Comment: Age Desirable [...] By: #### 2 4331-1 #### NITHYA Diamond ([id number]) [facility] ([facility]) [address] [place] [address] 91611 Cholesterol in HDL [Mass/Vol] 71.7 mg/dL Normal [facility] Comment on above: Result Comment: Age Very Low Low Normal High 0-19 Y < 35 < 40 40-45 ---- 20-24 Y ---- < 40 >45 ---- >24 Y ---- < 40 40-60 >60 Performed By: #### 2 4331-1 #### NITHYA Diamond (32137) [facility] ([facility]) [address] [place] [address] 29985 Cholesterol in LDL [Mass/Vol] 57 mg/dL Normal <=99 [facility] Comment on above: Result Comment: Near Borderline AGE Desirable Optimal High High Very High 0-19 Y 0 - 109 --- 110-129 >/= 130 ---- 20-24 Y 0 - 119 --- 120-159 >/= 160 ---- >24 Y 0 - 99 100-129 130-159 160-189 >/=190 Performed By: #### 2 4331-1 #### NITHYA Diamond ([id number]) [facility] ([facility]) [address] [place] [address] 42110 Cholesterol in VLDL [Mass/Vol] 37 mg/dL Normal 0-40 [facility] Comment on above: Performed By: #### 2 4331-1 #### NITHYA Diamond (75302) [facility] ([facility]) [address] [place] [address] CHOLESTEROL/HDL RATIO 2.3 Normal [facility] Comment on above: Result Comment: Ref Values Desirable < 3.4 High Risk > 5.0 Performed By: #### 2 4331-1 #### NITHYA Diamond ([id number]) [facility] ([facility]) [address] [place] [address] 85673 NON HDL CHOLESTEROL 94 mg/dL Normal 0-149 [facility] Comment on above: Result Comment: Age Desirable Borderline High High Very High 0-19 Y 0 - 119 120 - 144 >/= 145 >/= 160 20-24 Y 0 - 149 150 - 189 >/= 190 ---- >24 Y 30 mg/dL above LDL Cholesterol goal Performed By: #### 2 4331-1 #### NITHYA Diamond ([id number]) [facility] ([facility]) [id number] [place] [address] 01215 Triglyceride [Mass/Vol] 187 mg/dL High 0-149 [facility] Comment on above: Result Comment: Age Desirable [...] By: #### 2 4331-1 #### NITHYA Diamond ([id number]) [facility] ([facility]) [address] [place] [address] INR Coag (Bld) [Relative juanis e]on 01-29-2024 Interpretation and review of laboratory results Abnormal [facility] Work Phone: POC INR 3.1 Abnormal 0.9 - 1.1 [facility] Work Phone: [facility] Work Phone: CT CHEST WO CONTRSTon 2023 [...] have inadvertently missed correcting erroneous or unusual [id number]-u-icqg words. Electronically signed by: Blu Morgan MD 01/09/2024 08:43 AM EDT Technologist: RAVEN Dictated By: BLU MORGAN MD Signed By: BLU MORGAN MD Signed Out: 01/09/24 08:43:21 Normal [facility] ED Data CHIEF ARCHITECT - Texton 024 ED Data CHIEF ARCHITECT - Text ED Data CHIEF ARCHITECT Entered On: 01/09/2024 8:05 EDT Performed On: 01/09/2024 8:03 EDT by Odilia BEE [facility] ED General Intake Information [place] Coma : Document Elvis Coma Scale Problem [...] Currently or : Not applicable Odilia BEE, [facility] - 01/09/2024 8:03 EDT Elvis Coma Scale Eye Opening : Spontaneously Best Verbal Response : Oriented Best Motor Response : Obeys simple commands [place] Coma Score (Ref) : 15 Odilia BEE, [facility] - 01/09/2024 8:03 EDT Problem History (As Of: 01/09/2024 08:05:49 EDT) Problems(Active) Advanced diabetic retinal disease (SNOMED CT :7546588369 ) Name of Problem: Advanced diabetic retinal disease ; Recorder: Felisha Ortiz RN; Confirmation: Confirmed ; Classification: Medical ; Code: 9456128035 ; Contributor System: [employer] ; Last Updated: 11/04/2018 20:17 EDT ; Life Cycle Date: 11/04/2018 ; Life Cycle Status: Active ; Vocabulary: SNOMED CT Adverse effect of compound iron preparation (SNOMED CT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 98-107 [facility] Comment on above: Performed By: #### 2 4323-8 #### KRISTIN DUDLEY ([id number]) [facility] ([facility] [place]) [address] [place] [address] CO2 [Moles/Vol] 24 mmol/L Normal 21-32 [facility] Comment on above: Performed By: #### 2 3-8 #### KRISTIN DUDLEY ([id number]) [facility] ([facility] [place]) [address] [place] [address] Creatinine [Mass/Vol] 0.89 mg/dL Normal 0.50-1.05 [facility] Comment on above: Performed By: #### 2 3-8 #### KRISTIN DUDLEY ([id number]) [facility] ([facility] [place]) [address] [place] [address] GFR/1.73 sq M.predicted MDRD (S/P/Bld) [Vol rate/Area] 69 mL/min/1.73m*2 Normal >60 [facility] Comment on above: Result Comment: Calc ulations of estimated GFR are performed using the 2020 CKD-EPI Study Refit equation without the race variable for the IDMS-Traceable creatinine methods. https://jasn.asnjournals.org/content/early//ASN.1901895 988 Performed By: #### 2 4323-8 #### KRISTIN DUDLEY ([id number]) [facility] ([facility]) [address] [place] [address] Glucose [Mass/Vol] 163 mg/dL High 74-99 [facility] Comment on above: Performed By: #### 2 4323-8 #### KRISTIN DUDLEY ([id number]) [facility] [facility] ([facility] [place] [address] [place] [address] Potassium [Moles/Vol] 4.5 mmol/L Normal 3.5-5.3 [facility] Comment on above: Performed By: #### 2 4323-8 #### KRISTIN DUDLEY ([id number]) [facility] ([facility] [place] [address] [place] [address] Protein [Mass/Vol] 7.6 g/dL Normal 6.4-8.2 [facility] Comment on above: Performed By: #### 2 4323-8 #### KRISTIN DUDLEY ([id number]) [facility] ([facility] [place] [address] [place] [address] Sodium [Moles/Vol] 132 mmol/L Low 136-145 [facility] Comment on above: Performed By: #### 2 4323-8 #### KRISTIN DUDLEY ([id number]) [facility] ([facility] [place]) [address] [place] [address] Urea nitrogen [Mass/Vol] 16 mg/dL Normal 6-23 [facility] Comment on above: Performed By: #### 2 4323-8 #### KRISTIN LUIS ENRIQUE ([id number]) [facility] ([facility] [place] [address] [place] [address] Albumin BCP dye [Mass/Vol] 4.1 g/dL 3.4 - 5.0 g/dL [facility] ALP [Catalytic activity/Vol] 74 U/L 33 - 136 U/L [facility] ALT With P-5'-P [Catalytic activity/Vol] 18 U/L 7 - 45 U/L [facility] Comment on above: Patients treated wit h Sulfasalazine may generate falsely decreased results for ALT. Anion gap [Moles/Vol] 14 mmol/L 10 - 20 mmol/L [facility] AST With P-5'-P [Catalytic activity/Vol] 23 U/L 9 - 39 U/L [facility] Bilirubin [Mass/Vol] 0.4 mg/dL 0.0 - 1 .2 mg/dL [facility] Calcium [Mass/Vol] 9.3 mg/dL 8.6 - 10. 3 mg/dL [facility] Chloride [Moles/Vol] 99 mmol/L 98 - 10 7 mmol/L [facility] CO2 [Moles/Vol] 24 mmol/L 21 - 32 mmol/L [facility] Creatinine [Mass/Vol] 0.89 mg/dL 0.50 - 1.05 mg/dL [facility] GFR/1.73 sq M.predicted MDRD (S/P/Bld) [Vol rate/Area] 69 mL/min/{1.73_m2} - PINF [facility] Comment on above: Calculations of galilea mated GFR are performed using the 2020 CKD-EPI Study Refit equation without the race variable for the IDMS-Traceable creatinine methods. https://jasn.asnjournals.org/content//ASN.7377098 988 Glucose [Mass/Vol] 163 mg/dL High 74 - 99 mg/dL [facility] Interpretation and review of laboratory results Abnormal [facility] Potassium [Moles/Vol] 4.5 mmol/L 3.5 - 5.3 mmol/L [facility] Protein [Mass/Vol] 7.6 g/dL 6.4 - 8.2 g/dL [facility] Sodium [Moles/Vol] 132 mmol/L Low 136 - 145 mmol/L [facility] Urea nitrogen [Mass/Vol] 16 mg/dL 6 - 23 mg/dL [facility] PT Coag (PPP) [Time]on 04-24 INR Coag (PPP) [Relative time] 2.0 High 0.9-1.1 [facility] Comment on above: Performed By: #### 5 902-2 #### KRISTIN LUIS ENRIQUE ([id number]) [facility] ([facility] [place]) [address] [place] [address] INR Coag (PPP) [Relative time] 2.0 {INR} High 0.9 - 1.1 [facility] Interpretation and review of laboratory results Abnormal [facility] Protime-INRon 04-24-2023 PT Coag (PPP) [Time] 22.9 s High [facility] Anticoagulation Monitoring S erviceon 01-18-2023 Anticoagulation Monitoring Service Today's INR [id number] IO INR2.2 Target INR range2-3 SourceAMS History of Present Illness Patient identification verified with 2 patient identifiers. Anticoagulation Monitoring Service: [facility]. August 10, 2023. The patient is being seen as a follow-up for anticoagulation monitoring. Target INR 2-3. Monitoring practitioner Ronit Doan DO. Date Warfarin Begun: August 01, 2022. INR monitoring is per [facility] protocol. The patient is on anticoagulation due to atrial fibrillation/flutter. The patient is currently taking warfarin Tablet strength and color: 2.5 mg (Green) Interval History: Patient was last seen: January 04, 2023. Previous INR was 2.6. Incoming total weekly dose 13.75 mg. Today's Clinic INR: [facility] INR 2.2. Since last visit, the patient [...] 2023. Time: 10: 30 am. Location: [facility], . Your INR today is [...] #1 Coumadin Patient: PAU MUÑOZ; : 1950; [id number] 02:[id number] 10:[id number] 10:[id number] 10:36FI07Egu5828 01:05PM IO PT/INR PT + INR, Plasma PT/INR (POC) Recorded INR Coagulation Screen Current Dose New Dose Recheck in Patient Notified Comments IO INR2.22.62.33.33 PT, INR Target INR [id number] Normal [employer] Today's INRon 01-18-2023 Today's INR AMS Anticoagulati on [facility] Work Phone: Today's INR 2-3 Anticoagulati on [facility] Work Phone: Anticoagulation Monitoring S erviceon 01-04-2023 Anticoagulation Monitoring Service Today's INR [id number] IO INR2.6 Target INR range2-3 SourceAMS History of Present Illness Patient identification verified with 2 patient identifiers. Anticoagulation Monitoring Service: [facility]. August 10, 2023. The patient is being seen as a follow-up for anticoagulation monitoring. Target INR 2-3. Monitoring practitioner Ronit Doan DO. Date Warfarin Begun: August 01, 2022. INR monitoring is per [facility] protocol. The patient is on anticoagulation due to atrial fibrillation/flutter. The patient is currently taking warfarin Tablet strength and color: 2.5 mg (Green) 5 mg([place]our[place]). Interval History: Patient was last seen: December 28, 2022. Previous INR was 2.3. Incoming total weekly dose 13.75 mg. Today's Clinic INR: [facility] INR 2.6. Since last visit, the patient [...] and color: 2.5 mg (Green) and 5 mg([place]our[place]). Next Appointment: Wednesday, January 18, 2023. Time: 2: 15 pm. Location: [facility], . Your INR today is [...] #1 Coumadin Patient: PAU MUÑOZ; : 1950; [id number] 10:[id number] 10:[id number] 10:[id number] 01:41CF29Fcg0538 10:07AM IO PT/INR PT + INR, Plasma PT/INR (POC) Recorded INR Coagulation Screen Current Dose New Dose Recheck in Patient Notified Comments IO INR2.62.33.332.4 PT, INR Target INR [id number] Normal [employer] Today's INRon 01-04-2023 Today's INR AMS Anticoagulati on [facility] Work Phone: Today's INR 2-3 Anticoagulati on [facility] Work Phone: Anticoagulation Monitoring S erviceon 12-28-2022 Anticoagulation Monitoring Service Today's INR [id number] IO INR2.3 Target INR range2-3 SourceAMS History of Present Illness Patient identification verified with 2 patient identifiers. Anticoagulation Monitoring Service: [facility]. August 10, 2023. The patient is being seen as a follow-up for anticoagulation monitoring. Target INR 2-3. Monitoring practitioner Ronit Doan DO. Date Warfarin Begun: August 01, 2022. INR monitoring is per [facility] protocol. The patient is on anticoagulation due to atrial fibrillation/flutter. The patient is currently taking warfarin Tablet strength and color: 2.5 mg (Green) 5 mg([place]). Interval History: Patient was last seen: December [...] and color: 2.5 mg (Green) and 5 mg([place]). Next Appointment: Wednesday, January 04, 2023. Time: 10: 30 am. Location: [facility], . Your INR today is [...] (I48.0) Signatures Electronically signed by : Blanca Chirstensen R.N.; Dec 28 2022 10:42AM EST (Author) Appendix #1 Coumadin Patient: PAU MUÑOZ; : 1950; [id number] 10:[id number] 10:[id number] 01:[id number] 10:40SU45Oly3981 10:60PK86Yzx3905 08:52AM IO PT/INR PT + INR, Plasma PT/INR (POC) Recorded INR Coagulation Screen Current Dose New Dose Recheck in Patient Notified Comments IO INR2.33.332.42.6 PT, INR2.1 Target INR [id number] Normal [employer] Today's INRon 12-28-2022 Today's INR AMS Anticoagulati on [facility] Work Phone: Today's INR 2-3 Anticoagulati on [facility] Work Phone: Anticoagulation Monitoring S erviceon 12-20-2022 Anticoagulation Monitoring Service Today's INR [id number] IO INR3.3 Target INR range2-3 SourceAMS History of Present Illness Patient identification verified with 2 patient identifiers. Anticoagulation Monitoring Service: [facility]. August 10, 2023. The patient is being seen as a follow-up for anticoagulation monitoring. Target INR 2-3. Monitoring practitioner Ronit Doan DO. Date Warfarin Begun: August 01, 2022. INR monitoring is per [facility] protocol. The patient is on anticoagulation due to atrial fibrillation/flutter. The patient is currently taking warfarin Tablet strength and color: 2.5 mg (Green) 5 mg([place]). Interval History: Patient was last seen: December 13, 2022. Previous INR was 3. Incoming total weekly dose 15 mg. Today's Clinic INR: [facility] INR 3.3. [...] and color: 2.5 mg (Green) and 5 mg([place]). Next Appointment: Wednesday, December 28, 2022. Time: 10: 45 am. Location: [facility], . Your INR today is [...] #1 Coumadin Patient: PAU MUÑOZ; : 1950; [id number] 10:[id number] 01:[id number] 10:19EA87Cqh0836 10:98OQ28Dgc9448 10:41SI51Hsf2864 08:52AM IO PT/INR PT + INR, Plasma PT/INR (POC) Recorded INR Coagulation Screen Current Dose New Dose Recheck in Patient Notified Comments IO INR3.332.42.62.6 PT, INR2.1 Target INR -00-03-32-32-3 Normal [employer] Today's INRon 12-20-2022 Today's INR AMS Anticoagulati on [facility] Work Phone: Today's INR 2-3 Anticoagulati on [facility] Work Phone: Anticoagulation Monitoring S erviceon 12-13-2022 Anticoagulation Monitoring Service Today's INR [id number] IO INR3 Target INR range2-3 SourceAMS History of Present Illness Patient identification verified with 2 patient identifiers. Anticoagulation Monitoring Service: [facility]. August 10, 2023. The patient is being seen as a follow-up for anticoagulation monitoring. Target INR 2-3. Monitoring practitioner Ronit Doan DO. Date Warfarin Begun: August 01, 2022. INR monitoring is per [facility] protocol. The patient is on anticoagulation due to atrial fibrillation/flutter. The patient is currently taking warfarin Tablet strength and color: 2.5 mg (Green) 5 mg([place]). Interval History: Patient was last seen: November [...] and color: 2.5 mg (Green) and 5 mg([place]). Next Appointment: Tuesday, December 20, 2022. Time: 10: 45 am. Location: [facility], . Your INR today is [...] #1 Coumadin Patient: PAU MUÑOZ; : 1950; [id number] 01:[id number] 10:[id number] 10:[id number] 10:41PT58Pww6730 09:63RI41Goq5897 08:52AM IO PT/INR PT + INR, Plasma PT/INR (POC) Recorded INR Coagulation Screen Current Dose New Dose Recheck in Patient Notified Comments IO INR32.42.62.62.8 PT, INR2.1 Target INR -25-37-32-32-3 Normal [employer] Today's INRon 12-13-2022 Today's INR 2-3 Anticoagulati on [facility] Work Phone: Today's INR AMS Anticoagulati on [facility] Work Phone: Anticoagulation Monitoring S erviceon 11-29-2022 Anticoagulation Monitoring Service Today's INR [id number] IO INR2.4 Target INR range2-3 SourceAMS History of Present Illness Patient identification verified with 2 patient identifiers. Anticoagulation Monitoring Service: [facility]. August 10, 2023. The patient is being seen as a follow-up for anticoagulation monitoring. Target INR 2-3. Monitoring practitioner Ronit Doan DO. Date Warfarin Begun: August 01, 2022. INR monitoring is per [facility] protocol. The patient is on anticoagulation due to atrial fibrillation/flutter. The patient is currently taking warfarin Tablet strength and color: 2.5 mg (Green) 5 mg([place]). Interval History: Patient was last seen: November [...] and color: 2.5 mg (Green) and 5 mg([place]). Next Appointment: December 27, 2022. Time: 10: 30 am. Location: [facility], . Your INR today is [...] #1 Coumadin Patient: PAU MUÑOZ; : 1950; [id number] 10:[id number] 10:[id number] 10:41ZH42Upt8087 09:06TQ98Mes8036 02:45HV86Tmr5598 08:52AM IO PT/INR PT + INR, Plasma PT/INR (POC) Recorded INR Coagulation Screen Current Dose New Dose Recheck in Patient Notified Comments IO INR2.42.62.62.83.3 PT, INR2.1 Target INR [id number] [facility] Today's INRon 11-29-2022 Today's INR 2-3 Anticoagulati on [facility] Work Phone: Today's INR AMS Anticoagulati on [facility] Work Phone: Anticoagulation Monitoring S erviceon 11-15-2022 Anticoagulation Monitoring Service Today's INR [id number] IO INR2.6 Target INR range2-3 SourceAMS History of Present Illness Patient identification verified with 2 patient identifiers. Anticoagulation Monitoring Service: [facility]. August 10, 2023. The patient is being seen as a follow-up for anticoagulation monitoring. Target INR 2-3. Monitoring practitioner Ronit Doan DO. Date Warfarin Begun: August 01, 2022. INR monitoring is per [facility] protocol. The patient is on anticoagulation due to atrial fibrillation/flutter. The patient is currently taking warfarin Tablet strength and color: 2.5 mg (Green) 5 mg([place]). Interval History: Patient was last seen: November [...] and color: 2.5 mg (Green) and 5 mg([place]). Next Appointment: Tuesday, November 29, 2022. Time: 10: 15 am. Location: [facility], . Your INR today is [...] #1 Coumadin Patient: PAU MUÑOZ; : 1950; [id number] 10:[id number] 10:[id number] 09:02IR72Vnh8125 02:28MF31Npx8859 01:52AD59Tva4765 08:52AM IO PT/INR PT + INR, Plasma PT/INR (POC) Recorded INR Coagulation Screen Current Dose New Dose Recheck in Patient Notified Comments IO INR2.62.62.83.32.8 PT, INR2.1 Target INR [id number] Normal [employer] Today's INRon 11-15-2022 Today's INR 2-3 Anticoagulati on [facility] Work Phone: Today's INR AMS Anticoagulati on [facility] Work Phone: Anticoagulation Monitoring S erviceon 11-01-2022 Anticoagulation Monitoring Service Today's INR [id number] IO INR2.6 Target INR range2-3 SourceAMS History of Present Illness Patient identification verified with 2 patient identifiers. Anticoagulation Monitoring Service: [facility]. August 10, 2023. The patient is being seen as a follow-up for anticoagulation monitoring. Target INR 2-3. Monitoring practitioner Ronit Doan DO. Date Warfarin Begun: August 01, 2022. INR monitoring is per [facility] protocol. The patient is on anticoagulation due to atrial fibrillation/flutter. The patient is currently taking warfarin Tablet strength and color: 2.5 mg (Green) 5 mg([place]). Interval History: Patient was last seen: October [...] and color: 2.5 mg (Green) and 5 mg([place]). Next Appointment: November 15, 2022. Time: 10: 30 am. Location: [facility], . Your INR today is [...] #1 Coumadin Patient: PAU MUÑOZ; : 1950; [id number] 10:[id number] 09:[id number] 02:21ZE54Upb4497 01:06QK66Izx1587 01:18PM IO PT/INR PT + INR, Plasma PT/INR (POC) Recorded INR Coagulation Screen Current Dose New Dose Recheck in Patient Notified Comments IO INR2.62.83.32.83.9 PT, INR Target INR [id number] Normal [employer] HEMOGLOBIN A1Con 11-01-2022 Lab Specimen Source Normal [facility] Comment on above: Performed By: #### H BA1E #### [facility] [address] [place] [address] Hemoglobin A1Con 11-01-2022 Glucose [Mass/Vol] 134 mg/dL Normal [facility] Work Phone: Comment on above: Performed By: #### H BA1E #### [facility] [address] [place] [address] HbA1c (Bld) [Mass fraction] 6.3 % Abnormal [facility] Work Phone: Comment on above: SOURCE: Diagnosis of Diabetes-Adults Non-Diabetic: < or = 5.6% Increased risk for developing diabetes: 5.7-6.4% Diagnostic of diabetes: > or = 6.5%. Monitoring of Diabetes Age (y) Therapeutic Goal (%) Adults: >18 <7.0 Pediatrics: 13-18 <7.5 7-12 <8.0 0- 6 7.5-8.5 [employer]. Diabetes Care 33(S1), May 2009. Result Comment: Diag nosis of Diabetes-Adults Non-Diabetic: < or = 5.6% Increased risk for developing diabetes: 5.7-6.4% Diagnostic of diabetes: > or = 6.5% . Monitoring of Diabetes Age (y) Therapeutic Goal (%) Adults: >18 <7.0 Pediatrics: 13-18 <7.5 7-12 <8.0 0- 6 7.5-8.5 [employer]. Diabetes Care 33(S1), May 2009. Performed By: #### H BA1E #### [facility] [address] [place] [address] Laboratory - Chemistry and C hemistry - challengeon 11-01-2022 TSH Qn 1.77 m[IU]/L See Below [facility]Cardiolog y[facility] Work Phone: Comment on above: SOURCE: Reference Ra nge: 0.44 - 3.98 TSH testing is performed using different testing methodology at [facility] than at other [facility]. Direct result comparisons should only be made within the same method. TSH WITH REFLEX TO FREE T4 I F ABNORMALon 11-01-2022 TSH Qn 1.77 m[IU]/L Normal 0.44 - 3.98 [facility] Comment on above: Result Comment: TSH testing is performed using different testing methodology at [facility] than at other [facility]. Direct result comparisons should only be made within the same method. Performed By: #### H BA1E #### [facility] [address] [place] [address] Today's INRon 11-01-2022 Today's INR AMS [facility] Work Phone: Today's INR 2-3 [facility] Work Phone: Anticoagulation Monitoring S erviceon 10-26-2022 Anticoagulation Monitoring Service Today's INR [id number] IO INR2.8 Target INR range2-3 SourceAMS History of Present Illness Patient identification verified with 2 patient identifiers. Anticoagulation Monitoring Service: [facility]. August 10, 2023. The patient is being seen as a follow-up for anticoagulation monitoring. Target INR 2-3. Monitoring practitioner Ronit Doan DO. Date Warfarin Begun: August 01, 2022. INR monitoring is per [facility] protocol. The patient is on anticoagulation due to atrial fibrillation/flutter. The patient is currently taking warfarin Tablet strength and color: 2.5 mg (Green) 5 mg([place]our[place]). Interval History: Patient was last seen: October 18, 2022. Previous INR was 3.3. TWD of warfarin was reduced at time of last appointment. Incoming total weekly dose 15 mg. Today's Clinic INR: [facility] INR 2.8. Since last visit, the patient [...] and color: 2.5 mg (Green) and 5 mg([place]). Next Appointment: Tuesday, November 01, 2022. Time: 10: 30 am. Location: [facility], . Your INR today is [...] #1 Coumadin Patient: PAU MUÑOZ; : 1950; [id number] 09:[id number] 02:43FE98Ohj7566 01:21RK42Ttd5841 01:06TW30Vfy8613 11:45AM IO PT/INR PT + INR, Plasma PT/INR (POC) Recorded INR Coagulation Screen Current Dose New Dose Recheck in Patient Notified Comments IO INR2.83.32.83.93.5 PT, INR Target INR zvhig4-97-57-32-32-3 Normal [employer] Today's INRon 10-26-2022 Today's INR AMS [facility] Work Phone: Today's INR 2-3 [facility] Work Phone: Anticoagulation Monitoring S erviceon 10-18-2022 Anticoagulation Monitoring Service Today's INR 18Oct2022 IO INR3.3 Target INR range2-3 SourceAMS History of Present Illness Patient identification verified with 2 patient identifiers. Anticoagulation Monitoring Service: [facility]. August 10, 2023. The patient is being seen as a follow-up for anticoagulation monitoring. Target INR 2-3. Monitoring practitioner Ronit Doan DO. Date Warfarin Begun: August 01, 2022. INR monitoring is per [facility] protocol. The patient is on anticoagulation due to atrial fibrillation/flutter. The patient is currently taking warfarin Tablet strength and color: 2.5 mg (Green) 5 mg([place]our[place]). Interval History: Patient was last seen: October [...] and color: 2.5 mg (Green) and 5 mg([place]). Next Appointment: Tuesday, October 25, 2022. Time: 1: 15 pm. Location: [facility], . Your INR today is [...] #1 Coumadin Patient: PAU MUÑOZ; : 1950; [id number] 02:[id number] 01:[id number] 01:88VO02Rpg5444 11:00NQ92Wur8469 11:21AM IO PT/INR PT + INR, Plasma PT/INR (POC) Recorded INR Coagulation Screen Current Dose New Dose Recheck in Patient Notified Comments IO INR3.32.83.93.53.4 PT, INR Target INR [id number] Normal [employer] Today's INRon 10-18-2022 Today's INR 2-3 [facility] Work Phone: Today's INR [facility] Work Phone: Falls Screening (Age 18+)on 10-14-2022 Fall risk assessment a) No falls within the last year AJ-Qkyfyxyedf-Ri rma Work Phone: Tobacco use status CPHS b) No JK-Gkclbcgkgc-Jp rma Work Phone: Office Visit (Cardiology)on 10-14-2022 Follow-up visit Diagnoses/Problems Assessed CAD (coronary artery disease) (414.00) (I25.10) Admitted 10/30/21 with SOB/elevated troponin 03/08/21 cardiac cath with [...] estrogen at 50 History of Pacemaker Placement 2008: [employer] Sensia SEDR01 #[id number] History of Tubal ligation at 27 y/o [...] obesity w (more content not included)... Normal [employer] Anticoagulation Monitoring S ertristoneon 10-11-2022 Anticoagulation Monitoring Service Today's INR [id number] IO INR2.8 Target INR range2-3 SourceAMS History of Present Illness Patient identification verified with 2 patient identifiers. Anticoagulation Monitoring Service: [facility]. August 10, 2023. The patient is being seen as a follow-up for anticoagulation monitoring. Target INR 2-3. Monitoring practitioner Ronit Doan DO. Date Warfarin Begun: August 01, 2022. INR monitoring is per [facility] protocol. The patient is on anticoagulation due to atrial fibrillation/flutter. The patient is currently taking warfarin Tablet strength and color: 2.5 mg (Green) 5 mg([place]our[place]). Interval History: Patient was last seen: October [...] and color: 2.5 mg (Green) and 5 mg([place]). Next Appointment: Tuesday, October 18, 2022. Time: Location: [facility], . Your INR today is [...] #1 Coumadin Patient: PAU MUÑOZ; : 1950; [id number] 01:[id number] 01:56FI97Mpn5487 11:66ZA76Kij1130 11:91HA43Myn1333 11:25AM IO PT/INR PT + INR, Plasma PT/INR (POC) Recorded INR Coagulation Screen Current Dose New Dose Recheck in Patient Notified Comments IO INR2.83.93.53.42.6 PT, INR Target INR [id number] Normal [employer] Today's INRon 10-11-2022 Today's INR AMS [facility] Work Phone: Today's INR 2-3 [facility] Work Phone: Anticoagulation Monitoring S finn 10-04-2022 Anticoagulation Monitoring Service Today's INR [id number] IO INR3.9 Target INR range2-3 SourceAMS History of Present Illness Patient identification verified with 2 patient identifiers. Anticoagulation Monitoring Service: [facility]. August 10, 2023. The patient is being seen as a follow-up for anticoagulation monitoring. Target INR 2-3. Monitoring practitioner Ronit Doan DO. Date Warfarin Begun: November 01, 2022. INR monitoring is per [facility] protocol. The patient is on anticoagulation due to atrial fibrillation/flutter. The patient is currently taking warfarin Tablet strength and color: 2.5 mg (Green) 5 mg([place]). Interval History: Patient was last seen: September 21, 2022. Previous INR was 3.4. Since last visit, another INR has been reported as 2.7 on 09/24/22. Two doses were held and TWD was reduced at time of last appointment. Incoming total weekly dose 16.25 mg. Today's Clinic INR: [facility] INR 3.9. [...] Warfarin. Your tablet strength and color: 5 mg(L[place]) and 2.5 mg (Green). Next Appointment: Tuesday, October 11, 2022. Time: 1: 45 pm. Location: [facility], . Your INR today is [...] #1 Coumadin Patient: PAU MUÑOZ; : 1950; [id number] 01:[id number] 11:[id number] 11:[id number] 11:96XS42Yha6257 11:08AM IO PT/INR PT + INR, Plasma PT/INR (POC) Recorded INR Coagulation Screen Current Dose New Dose Recheck in Patient Notified Comments IO INR3.93.53.42.61.9 PT, INR Target INR uynrv0-22-06-32-32-3 Normal [employer] Today's INRon 10-04-2022 Today's INR 2-3 Anticoagulati on [facility] Work Phone: Today's INR AMS Anticoagulati on [facility] Work Phone: Anticoagulation Monitoring S erviceon 09-27-2022 Anticoagulation Monitoring Service Today's INR [id number] IO INR3.5 Target INR range2-3 SourceAMS History of Present Illness Patient identification verified with 2 patient identifiers. Anticoagulation Monitoring Service: [facility]. August 10, 2023. The patient is being seen as a follow-up for anticoagulation monitoring. Target INR 2-3. Monitoring practitioner Ronit Doan DO. Date Warfarin Begun: August 01, 2022. INR monitoring is per [facility] protocol. The patient is on anticoagulation due to atrial fibrillation/flutter. The patient is currently taking warfarin Tablet strength and color: 2.5 mg (Green) 5 mg(Lafourche). Interval History: Patient was last seen: September [...] Warfarin. Your tablet strength and color: 5 mg(Lafourche) and 2.5 mg (Green). Next Appointment: Tuesday, October 04, 2022. Time: 1: 15 pm. Location: [facility], . Your INR today is [...] #1 Coumadin Patient: PAU MUÑOZ; : 1950; [id number] 11:[id number] 11:[id number] 11:[id number] 11:[id number] 10:36AM IO PT/INR PT + INR, Plasma PT/INR (POC) Recorded INR Coagulation Screen Current Dose New Dose Recheck in Patient Notified Comments IO INR3.53.42.61.94.3 PT, INR Target INR [id number] Normal [employer] Today's INRon 09-27-2022 Today's INR 2-3 Anticoagulati on [facility] Work Phone: Today's INR AMS Anticoagulati on [facility] Work Phone: Anticoagulation Monitoring S erviceon 09-21-2022 Anticoagulation Monitoring Service Today's INR [id number] IO INR3.4 Target INR range2-3 SourceAMS History of Present Illness Patient identification verified with 2 patient identifiers. Anticoagulation Monitoring Service: [facility]. August 10, 2023. The patient is being seen as a follow-up for anticoagulation monitoring. Target INR 2-3. Monitoring practitioner Ronit Doan DO. Date Warfarin Begun: August 01, 2022. INR monitoring is per [facility] protocol. The patient is on anticoagulation due to atrial fibrillation/flutter. The patient is currently taking warfarin Tablet strength and color: 2.5 mg (Green) 5 mg(Lafourche). Interval History: Patient was last seen: September 14, 2022. Previous INR was 2.6. Two doses were held and TWD was reduced at time of last appointment. Incoming total weekly dose 17.5 mg. Today's Clinic INR: AMS INR 3.4. Since last visit, the patient [...] Warfarin. Your tablet strength and color: 5 mg(Lafourche) and 2.5 mg (Green). Next Appointment: Wednesday, September 28, 2022. Time: 11: 30 am. Location: [facility], . Your INR today is [...] : Leidy Sanchez R.N.; Sep 21 2022 11:27AM EST (Author) Electronically signed by : Leidy Sanchez R.N.; Sep 21 2022 11:31AM EST (Author) Appendix #1 Coumadin Patient: PAU MUÑOZ; : 1950; [id number] 11:[id number] 11:[id number] 11:[id number] 10:87AT94Woe9067 10:57AM IO PT/INR PT + INR, Plasma PT/INR (POC) Recorded INR Coagulation Screen Current Dose New Dose Recheck in Patient Notified Comments IO INR3.42.61.94.33.6 PT, INR Target INR fcxna7-55-02-32-32-3 Normal [employer] Today's INRon 09-21-2022 Today's INR 2-3 Anticoagulati on [facility] Work Phone: Today's INR AMS Anticoagulati on [facility] Work Phone: Blood Pressure Cuff Sizeon 0 09-15-2022 Tobacco use status CPHS b) No -[facility] Work Phone: Blood Pressure Cuff Size Adult [facility] Work Phone: Office Visit ([facility])on [...] intensity statin-has not tolerated high intensity 09/2021 LDL=50,CW=458 Hypertension (401.9) (I10) BP OK on current meds Weight loss/Salt restriction Hypokalemia (276.8) (E87.6) IBS (irritable bowel syndrome) (564.1) (K58.9) Impaired ambulation (719.7) (R26.2) Impaired fasting glucose (790.21) (R73.01) Lumbar strain, initial encounter (847.2) (S39.012A) Medicare annual wellness visit, subsequent (V70.0) (Z (more content not included)... Normal [employer] Anticoagulation Monitoring S erviceon 09-14-2022 Anticoagulation Monitoring Service Today's INR [id number] IO INR2.6 Target INR range2-3 SourceAMS History of Present Illness Patient identification verified with 2 patient identifiers. Anticoagulation Monitoring Service: [facility]. August 10, 2023. The patient is being seen as a follow-up for anticoagulation monitoring. Target INR 2-3. Monitoring practitioner Ronit Doan DO. Date Warfarin Begun: August 01, 2022. INR monitoring is per [facility] protocol. The patient is on anticoagulation due to atrial fibrillation/flutter. The patient is currently taking warfarin Tablet strength and color: 5 mg(Lafourche) Interval History: Patient was last seen: September 09, 2022. Previous INR was 1.9. Two doses were held and TWD was reduced at time of last appointment. Incoming total weekly dose 17.5 mg. Today's Clinic INR: [facility] INR 2.6. Since last visit, the patient [...] Warfarin. Your tablet strength and color: 5 mg(Lafourche) Next Appointment: Wednesday, September 21, 2022. Time: 11: 30 am. Location: [facility], . Your INR today is [...] #1 Coumadin Patient: PAU MUÑOZ; : 1950; [id number] 11:[id number] 11:33UG44Rok9765 10:49XX56Clr5639 10:[id number] 11:25AM IO PT/INR PT + INR, Plasma PT/INR (POC) Recorded INR Coagulation Screen Current Dose New Dose Recheck in Patient Notified Comments IO INR2.61.94.33.64.9 PT, INR Target INR -46-28-32-32-3 Normal [employer] Today's INRon 09-14-2022 Today's INR 2-3 [facility] Work Phone: [facility]'s [facility]R [facility] Phone: Anticoagulation Monitoring S erviceon 09-09-2022 Anticoagulation Monitoring Service Today's INR [id number] IO INR1.9 Target INR range2-3 SourceAMS History of Present Illness Patient identification verified with 2 patient identifiers. Anticoagulation Monitoring Service: [facility]. August 10, 2023. The patient is being seen as a follow-up for anticoagulation monitoring. Target INR 2-3. Monitoring practitioner Ronit Doan DO. Date Warfarin Begun: August 01, 2022. INR monitoring is per [facility] protocol. The patient is on anticoagulation due to atrial fibrillation/flutter. The patient is currently taking warfarin Tablet strength and color: 5 mg(Lafourche) Interval History: Patient was last seen: September 06, 2022. Previous INR was 4.3. Two doses were held and TWD was reduced at time of last appointment. Incoming total weekly dose 17.5 mg. Today's Clinic INR: [facility] INR 1.9. Since last visit, the patient [...] Warfarin. Your tablet strength and color: 5 mg(Lafourche) Next Appointment: Wednesday, September 14, 2022. Time: 11: 30 am. Location: [facility], . Your INR today is [...] #1 Coumadin Patient: PAU MUÑOZ; : 1950; [id number] 11:[id number] 10:68IM81Jvb1821 10:57GE16Mah4756 11:24BB40Ers6013 10:33AM IO PT/INR PT + INR, Plasma PT/INR (POC) Recorded INR Coagulation Screen Current Dose New Dose Recheck in Patient Notified Comments IO INR1.94.33.64.93.9 PT, INR Target INR -00-75-32-32-3 Normal [employer] Today's INRon 09-09-2022 Today's INR AMS Anticoagulati on [facility] Work Phone: Today's INR 2-3 Anticoagulati on [facility] Work Phone: Anticoagulation Monitoring S erviceon 09-06-2022 Anticoagulation Monitoring Service Today's INR [id number] IO INR4.3 Target INR range2-3 SourceAMS History of Present Illness Patient identification verified with 2 patient identifiers. Anticoagulation Monitoring Service: [facility]. August 10, 2023. The patient is being seen as a follow-up for anticoagulation monitoring. Target INR 2-3. Monitoring practitioner Ronit Doan DO. Date Warfarin Begun: August 01, 2022. INR monitoring is per [facility] protocol. The patient is on anticoagulation due to atrial fibrillation/flutter. The patient is currently taking warfarin Tablet strength and color: 5 mg(Lafourche) Interval History: Patient was last seen: August 30, 2022. Previous INR was 3.6. One dose of warfarin was held and TWD was reduced at time of last appointment. Incoming total weekly dose 20 mg. Today's Clinic INR: [facility] INR 4.3. Since last visit, the patient [...] Warfarin. Your tablet strength and color: 5 mg(Lafourche) Please do not take any warfarin today, Tuesday, September 06, 2022, or tomorrow, Monday, September 07, 2022. Next Appointment: Friday, September 09, 2022. Time: 11: 00 am. Location: [facility], . Your INR today is [...] #1 Coumadin Patient: PAU MUÑOZ; : 1950; [id number] 10:[id number] 10:[id number] 11:[id number] 10:[id number] 03:52AX14Lyb5804 08:52AM IO PT/INR PT + INR, Plasma PT/INR (POC) Recorded INR Coagulation Screen Current Dose New Dose Recheck in Patient Notified Comments IO INR4.33.64.93.92.3 PT, INR2.1 Target INR [id number] Normal [employer] Today's INRon 09-06-2022 Today's INR AMS Anticoagulati on [facility] Work Phone: Today's INR 2-3 Anticoagulati on [facility] Work Phone: Anticoagulation Monitoring S erviceon 08-30-2022 Anticoagulation Monitoring Service Today's INR [id number] IO INR3.6 Target INR range2-3 SourceAMS History of Present Illness Patient identification verified with 2 patient identifiers. Anticoagulation Monitoring Service: [facility]. August 10, 2023. The patient is being seen as a follow-up for anticoagulation monitoring. Target INR 2-3. Monitoring practitioner Ronit Doan DO. Date Warfarin Begun: August 01, 2022. INR monitoring is per [facility] protocol. The patient is on anticoagulation due to atrial fibrillation/flutter. The patient is currently taking warfarin Tablet strength and color: 5 mg(Lafourche) Interval History: Patient was last seen: August [...] Warfarin. Your tablet strength and color: 5 mg(Lafourche) Please do not take any warfarin today, Monday, August 24, 2022, or tomorrow, , August 25, 2022. Next Appointment: Tuesday, September 06, 2022. Time: 10: 45 am. Location: [facility], . Your INR today is [...] #1 Coumadin Patient: PAU MUÑOZ; : 1950; [id number] 10:[id number] 11:[id number] 10:63EM75Nro8598 03:02OS08Aez6564 08:86TV81Tbv7615 08:13AM IO PT/INR PT + INR, Plasma PT/INR (POC) Recorded INR Coagulation Screen Current Dose New Dose Recheck in Patient Notified Comments IO INR3.64.93.92.3 PT, INR2.1 4.9 Target INR rfomb7-62-24-32-3 Normal [employer] Today's INRon 08-30-2022 Today's INR 2-3 Anticoagulati on [facility] Work Phone: Today's INR AMS Anticoagulati on [facility] Work Phone: Anticoagulation Monitoring S erviceon 08-24-2022 Anticoagulation Monitoring Service Today's INR [id number] IO INR4.9 Target INR range2-3 SourceAMS History of Present Illness Patient identification verified with 2 patient identifiers. Anticoagulation Monitoring Service: [facility]. August 10, 2023. The patient is being seen as a follow-up for anticoagulation monitoring. Target INR 2-3. Monitoring practitioner Ronit Doan DO. Date Warfarin Begun: August 01, 2022. INR monitoring is per [facility] protocol. The patient is on anticoagulation due to atrial fibrillation/flutter. The patient is currently taking warfarin Tablet strength and color: 5 mg(Lafourche) Interval History: Patient was last seen: August 19, 2022. Previous INR was 3.9. One dose of warfarin was held and TWD was reduced at time of last appointment. Incoming total weekly dose 27.5 mg. Today's Clinic INR: [facility] INR 4.9. Since last visit, the patient [...] Warfarin. Your tablet strength and color: 5 mg(Lafourche) Please do not take any warfarin today, Monday, August 24, 2022, or tomorrow, , August 25, 2022. Next Appointment: Tuesday, August 30, 2022. Time: 10: 45 am. Location: [facility], . Your INR today is [...] #1 Coumadin Patient: PAU MUÑOZ; : 1950; [id number] 11:[id number] 10:93ZQ38Xdu5191 03:[id number] 08:[id number] 08:[id number] 08:05AM IO PT/INR PT + INR, Plasma PT/INR (POC) Recorded INR Coagulation Screen Current Dose New Dose Recheck in Patient Notified Comments IO INR4.93.92.3 PT, INR2.1 4.9 1.6 Target INR bsnku5-61-31-3 Normal [employer] Today's INRon 08-24-2022 Today's INR AMS Anticoagulati on [facility] Work Phone: Today's INR 2-3 Anticoagulati on [facility] Work Phone: Anticoagulation Monitoring S erviceon 08-19-2022 Anticoagulation Monitoring Service Today's INR [id number] IO INR3.9 Target INR range2-3 SourceAMS History of Present Illness Patient identification verified with 2 patient identifiers. Anticoagulation Monitoring Service: [facility]. August 10, 2023. The patient is being seen as a follow-up for anticoagulation monitoring. Target INR 2-3. Monitoring practitioner Ronit Doan DO. Date Warfarin Begun: August 01, 2022. INR monitoring is per [facility] protocol. The patient is on anticoagulation due to atrial fibrillation/flutter. The patient is currently taking warfarin Tablet strength and color: 5 mg(Lafourche) Interval History: Patient was last seen: August 16, 2022. Previous INR was 2.3. Incoming total weekly dose 30 mg. Today's Clinic INR: [facility] INR 3.9. Since last visit, the patient [...] Warfarin. Your tablet strength and color: 5 mg(Lafourche) Please do not take any warfarin today, Friday, August 19, 2022. Next Appointment: Wednesday, August 24, 2022. Time: 11: 30 am. Location: [facility], . Your INR today is [...] 10:39AM EST (Author) Appendix #1 Coumadin Patient: PAU MUÑOZ; : 1950; [id number] 10:[id number] 03:58FP63Lhh5894 08:53KB71Pct4542 08:42NR52Cqu3624 08:84UN65Fbe8485 01:14PM IO PT/INR PT + INR, Plasma PT/INR (POC) Recorded INR Coagulation Screen Current Dose New Dose Recheck in Patient Notified Comments IO INR3.92.3 PT, INR2.1 4.9 1.6 1.2 Target INR range2-32-3 Normal [facility] Today's INRon 08-19-2022 Today's INR AMS Anticoagulati on [facility] Work Phone: Today's INR 2-3 Anticoagulati on [facility] Work Phone: Blood Pressure Cuff Sizeon 0 08-18-2022 Tobacco use status CPHS b) No -[facility] Work Phone: Blood Pressure Cuff Size Adult [facility] [place] [facility] Work Phone: Office Visit (Vascular [facility])on 08-18-2022 Follow-up visit Diagnoses/Problems Assessed Carotid stenosis [...] (414.00) (I25.10) Admitted 03/06/21 with SOB/elevated troponin 11/1/21 cardiac cath with moderate non-obstructive dz No current angina On diltazem/statin/Xarelt o/statin-carries SL NTG-follow. Carotid bruit (785.9) (R09.89) Carotid bruit (785.9) (R09.89) Check duplex Carotid stenosis (433.10) (I65.29) S/P 07/30/ L [...] intensity statin-has not tolerated high intensity 09/2021 LDL=50,VQ=565 Hypertension (401.9) (I10) BP OK on current [...] Prophylactic antibioti (more content not included)... Normal [employer] Anticoagulation Monitoring S erviceon 08-16-2022 Anticoagulation Monitoring Service Today's INR [id number] IO INR2.3 Target INR range2-3 SourceAMS History of Present Illness Patient identification verified with 2 patient identifiers. Anticoagulation Monitoring Service: [facility]. Enrollment/Re-enrollme nt date: August 17, 2023. The patient is being seen as a new patient for anticoagulation monitoring. Target INR 2-3. Monitoring practitioner Ronit Doan DO. Date Warfarin Begun: August 01, 2022. INR monitoring is per [facility] protocol. The patient is on anticoagulation due to atrial fibrillation/flutter. The patient is currently taking warfarin Tablet strength and color: 5 mg(Lafourche) Interval History: Previous INR was 2.1. INR via lab Monday08/13/22 was 2.1. Patient had been on 5 mg daily until 08/11/22. She was taking Xarelto and started warfarin on Monday08/06/22. Incoming total weekly dose 35 mg. pt took 2.5 mg vitamin K on 08/11/22 when evaluated in the ER Today's Clinic INR: AMS INR 2.3. Since [...] 2022. Time: 10: 30 am. Location: [facility], . Your INR today is [...] #1 Coumadin Patient: PAU MUÑOZ; : 1950; [id number] 03:[id number] 08:04YZ10Wyv6540 08:75ET99Cgl2787 08:[id number] 01:[id number] 11:20AM IO PT/INR PT + INR, Plasma PT/INR (POC) Recorded INR Coagulation Screen Current Dose New Dose Recheck in Patient Notified Comments IO INR2.3 PT, INR2.1 4.9 1.6 1.2 1.0 Target INR range2-3 Normal [employer] CBC AND DIFFERENTIALon 08-16 % AUTOMATED IMMATURE GRAN 0.3 % Normal 0.0 - 0.9 [facility] Comment on above: Result Comment: Ammy ture Granulocyte Count (IG) includes promyelocytes, myelocytes and metamyelocytes but does not include bands. Percent differential counts (%) should be interpreted in the context of the absolute cell counts (cells/L). Performed By: #### C BCDF #### [facility] [address] [place] [address] Basophils (Bld) [#/Vol] 0.07 10*3/uL Normal 0.00 - 0.10 [facility] Comment on above: Performed By: #### C BCDF #### [facility] [address] [place] [address] Basophils/100 WBC (Bld) 0.7 % Normal 0.0 - 2.0 [facility] Comment on above: Performed By: #### C BCDF #### [facility] [address] [place] [address] Eosinophils (Bld) [#/Vol] 0.09 10*3/uL Normal 0.00 - 0.40 [facility] Comment on above: Performed By: #### C BCDF #### [facility] [address] [place] [address] Eosinophils/100 WBC (Bld) 0.9 % Normal 0.0 - 6.0 [facility] Comment on above: Performed By: #### C BCDF #### [facility] [address] [place] [address] Erythrocyte distribution width (RBC) [Ratio] 14.0 % Normal 11.5 - 14.5 [facility] Comment on above: Performed By: #### C BCDF #### [facility] [address] [place] [address] Hematocrit (Bld) [Volume fraction] 43.4 % Normal 36.0 - 46.0 [facility] Comment on above: Performed By: #### C BCDF #### [facility] [address] [place] [address] Hemoglobin (Bld) [Mass/Vol] 14.1 g/dL Normal 12.0 - 16.0 [facility] Comment on above: Performed By: #### C BCDF #### [facility] [address] [place] [address] Lymphocytes (Bld) [#/Vol] 2.59 10*3/uL Normal 0.80 - 3.00 [facility] Comment on above: Performed By: #### C BCDF #### [facility] [address] [place] [address] Lymphocytes/100 WBC (Bld) 25.7 % Normal 13.0 - 44.0 [facility] Comment on above: Performed By: #### C BCDF #### [facility] [address] [place] [address] MCHC (RBC) [Mass/Vol] 32.5 g/dL Normal 32.0 - 36.0 [facility] Comment on above: Performed By: #### C BCDF #### [facility] [address] [place] [address] MCV (RBC) [Entitic vol] 89 fL Normal 80 - 100 [facility] Comment on above: Performed By: #### C BCDF #### [facility] [address] [place] [address] Monocytes (Bld) [#/Vol] 0.60 10*3/uL Normal 0.05 - 0.80 [facility] Comment on above: Performed By: #### C BCDF #### [facility] [address] [place] [address] Monocytes/100 WBC (Bld) 6.0 % Normal 2.0 - 10.0 [facility] Comment on above: Performed By: #### C BCDF #### [facility] [address] [place] [address] Neutrophils (Bld) [#/Vol] 6.68 10*3/uL High 1.60 - 5.50 [facility] Comment on above: Performed By: #### C BCDF #### [facility] [address] [place] [address] Neutrophils/100 WBC (Bld) 66.4 % Normal 40.0 - 80.0 [facility] Comment on above: Performed By: #### C BCDF #### [facility] [address] [place] [address] NUCLEATED RBC 0.0 /100 WBC Normal 0.0-0.0 [facility] Comment on above: Performed By: #### C BCDF #### [facility] [address] [place] [address] Platelets (Bld) [#/Vol] 340 10*3/uL Normal 150 - 450 [facility] Comment on above: Performed By: #### C BCDF #### [facility] [address] [place] [address] RBC 4.88 x10E12/L Normal 4.00 - 5.20 [facility] Comment on above: Performed By: #### C BCDF #### [facility] [address] [place] [address] WBC (Bld) [#/Vol] 10.1 10*3/uL Normal 4.4 - 11.3 [facility] Comment on above: Performed By: #### C BCDF #### [facility] [address] [place] [address] COMPREHENSIVE PANELon 2022 Albumin [Mass/Vol] 4.0 g/dL Normal 3.4 - 5.0 [facility] Comment on above: Performed By: #### H BA1E #### [facility] [address] [place] [address] ALP [Catalytic activity/Vol] 84 U/L Normal 33 - 136 [facility] Comment on above: Performed By: #### H BA1E #### [facility] [address] [place] [address] ALT [Catalytic activity/Vol] 20 U/L Normal 7 - 45 [facility] Comment on above: Result Comment: Luna ents treated with Sulfasalazine may generate falsely decreased results for ALT. Performed By: #### H BA1E #### [facility] [address] [place] [address] Anion gap [Moles/Vol] 14 mmol/L Normal 10 - 20 [facility] Comment on above: Performed By: #### H BA1E #### [facility] [address] [place] [address] AST [Catalytic activity/Vol] 22 U/L Normal 9 - 39 [facility] Comment on above: Performed By: #### H BA1E #### [facility] [address] [place] [address] Bilirubin [Mass/Vol] 0.4 mg/dL Normal 0.0 - 1.2 [facility] Comment on above: Performed By: #### H BA1E #### [facility] [address] [place] [address] Calcium [Mass/Vol] 9.6 mg/dL Normal 8.6 - 10.6 [facility] Comment on above: Performed By: #### H BA1E #### [facility] [address] [place] [address] Chloride [Moles/Vol] 100 mmol/L Normal 98 - 107 [facility] Comment on above: Performed By: #### H TAO1E #### [facility] [address] [place] [address] Creatinine [Mass/Vol] 0.88 mg/dL Normal 0.50 - 1.05 [facility] Comment on above: Performed By: #### H BA1E #### [facility] [address] [place] [address] GFR/1.73 sq M.predicted among non-blacks MDRD (S/P/Bld) [Vol rate/Area] 70 mL/min/{1.73_m2} Normal >90 [facility] Comment on above: Result Comment: CALC ULATIONS OF ESTIMATED GFR ARE PERFORMED USING THE 2020 CKD-EPI STUDY REFIT EQUATION WITHOUT THE RACE VARIABLE FOR THE IDMS-TRACEABLE CREATININE METHODS. https://jasn.asnjournals.org/content//ASN.5040630 988 Performed By: #### H BA1E #### [facility] [address] [place] [address] Glucose [Mass/Vol] 188 mg/dL High 74 - 99 [facility] Comment on above: Performed By: #### H BA1E #### [facility] [address] [place] [address] HCO3 (Bld) [Moles/Vol] 27 mmol/L Normal 21 - 32 [facility] Comment on above: Performed By: #### H BA1E #### [facility] [address] [place] [address] Potassium [Moles/Vol] 4.2 mmol/L Normal 3.5 - 5.3 [facility] Comment on above: Performed By: #### H BA1E #### [facility] [address] [place] [address] Protein [Mass/Vol] 7.4 g/dL Normal 6.4 - 8.2 [facility] Comment on above: Performed By: #### H BA1E #### [facility] [address] [place] [address] Sodium [Moles/Vol] 137 mmol/L Normal 136 - 145 [facility] Comment on above: Performed By: #### H BA1E #### [facility] [address] [place] [address] Urea nitrogen [Mass/Vol] 17 mg/dL Normal 6 - 23 [facility] Comment on above: Performed By: #### H BA1E #### [facility] [address] [place] [address] Complete Blood Count + Diffe rentialon 08-16-2022 Basophils/100 WBC (Bld) 0.7 % 0.0 - 2.0 [facility] Work Phone: Erythrocyte distribution width (RBC) [Ratio] 14.0 % See Below Anticoagulation Monitoring [facility] Work Phone: Comment on above: Reference Range: 11. 5 - 14.5 Hematocrit (Bld) [Volume fraction] 43.4 % See Below Anticoagulatio n Monitoring [facility] Work Phone: Comment on above: Reference Range: 36. 0 - 46.0 Hemoglobin (Bld) [Mass/Vol] 14.1 g/dL See Below Anticoagulation Monitoring [facility] Work Phone: Comment on above: Reference Range: 12. 0 - 16.0 Lymphocytes/100 WBC (Bld) 25.7 % See Below Anticoagulation Monitoring [facility] Work Phone: Comment on above: Reference Range: 13. 0 - 44.0 MCHC (RBC) [Mass/Vol] 32.5 g/dL See Below [facility] Work Phone: Comment on above: Reference Range: 32. 0 - 36.0 MCV (RBC) [Entitic vol] 89 fL 80 - 100 Anticoagulation Monitoring [facility] Work Phone: Monocytes/100 WBC (Bld) 6.0 % 2.0 - 10.0 [facility]tico[facility] Phone: Neutrophils/100 WBC (Bld) 66.4 % See Below Anticoagulation Monitoring [facility] Phone: Comment on above: Reference Range: 40. 0 - 80.0 Platelets (Bld) [#/Vol] 340 10*3/uL 150 - 450 [facility] Phone: RBC (Bld) [#/Vol] 4.88 {x10E12/L} See Below An ticoagulation Monitoring [facility] Phone: Comment on above: Reference Range: 4.0 0 - 5.20 WBC (Bld) [#/Vol] 10.1 10*3/uL 4.4 - 11.3 Antic oagulation Monitoring [facility] Phone: Complete Blood Count + Differential 0.07 {x10E9/L} See Below Anticoagulation Monitoring [facility] Phone: Comment on above: Reference Range: 0.0 0 - 0.10 Complete Blood Count + Differential 0.09 {x10E9/L} See Below Anticoagulation Monitoring [facility] Phone: Comment on above: Reference Range: 0.0 0 - 0.40 Complete Blood Count + Differential 0.60 {x10E9/L} See Below Anticoagulation Monitoring [facility] Phone: Comment on above: Reference Range: 0.0 5 - 0.80 Complete Blood Count + Differential 2.59 {x10E9/L} See Below Anticoagulation Monitoring [facility] Phone: Comment on above: Reference Range: 0.8 0 - 3.00 Complete Blood Count + Differential 6.68 {x10E9/L} above high threshold See Below Anticoagulation Monitoring [facility] Phone: Comment on above: Reference Range: 1.6 0 - 5.50 Complete Blood Count + Differential 0.9 % 0.0 - 6.0 Anticoagulation Monitoring [facility] Work Phone: Complete Blood Count + Differential 0.3 % 0.0 - 0.9 [facility]ticoagulation [facility] Work Phone: Comment on above: Immature Granulocyte Count (IG) includes promyelocytes, myelocytes and metamyelocytes but does not include bands. Percent differential counts (%) should be interpreted in the context of the absolute cell counts (cells/L). Complete Blood Count + Differential 0.0 {/100_WBC} 0.0-0.0 [facility]ticoagulation [facility] Work Phone: HEMOGLOBIN A1Con 08-16-2022 Glucose [Mass/Vol] 140 mg/dL Normal [facility] Comment on above: Performed By: #### H BA1E #### [facility] [address] [place] [address] HbA1c (Bld) [Mass fraction] 6.5 % Abnormal [facility] Comment on above: Result Comment: Diag nosis of Diabetes-Adults Non-Diabetic: < or = 5.6% Increased risk for developing diabetes: 5.7-6.4% Diagnostic of diabetes: > or = 6.5% . Monitoring of Diabetes Age (y) Therapeutic Goal (%) Adults: >18 <7.0 Pediatrics: 13-18 <7.5 7-12 <8.0 0- 6 7.5-8.5 [employer] [employer]. Diabetes Care 33(S1), May 2009. Performed By: #### H BA1E #### [facility] [address] [place] [address] Hemoglobin A1Con 08-16-2022 Glucose [Mass/Vol] 140 mg/dL Antico agulation Monitoring [facility] Work Phone: HbA1c (Bld) [Mass fraction] 6.5 % Abnormal [facility]ticoagulation [facility] Work Phone: Comment on above: Diagnosis of Diabete s-Adults Non-Diabetic: < or = 5.6% Increased risk for developing diabetes: 5.7-6.4% Diagnostic of diabetes: > or = 6.5%. Monitoring of Diabetes Age (y) Therapeutic Goal (%) Adults: >18 <7.0 Pediatrics: 13-18 <7.5 7-12 <8.0 0- 6 7.5-8.5 [employer] [employer]. Diabetes Care 33(S1), May 2009. LIPID PANEL (CORONARY RISK 2 )on 08-16-2022 Cholesterol [Mass/Vol] 164 mg/dL Normal 0 - 199 [facility] Comment on above: Result Comment: . AGE [...] guidelines reference: NCEP ATPIII Guidelines, OSCAR 2001, 258:6706-97 . Venipuncture immediately after or during the administration of Metamizole may lead to falsely low results. Testing should be performed immediately prior to Metamizole dosing. Performed By: #### L IPID #### [facility] [address] [place] [address] Cholesterol in HDL [Mass/Vol] 69.4 mg/dL Normal [facility] Comment on above: Result Comment: . AGE VERY LOW LOW NORMAL HIGH 0-19 Y < 35 < 40 40-45 ---- 20-24 Y ---- < 40 >45 ---- >24 Y ---- < 40 40-60 >60 . Performed By: #### L IPID #### [facility] [address] [place] [address] Cholesterol in LDL [Mass/Vol] 56 mg/dL Normal 0 - 99 [facility] Comment on above: Result Comment: . NEAR BORD AGE DESIRABLE OPTIMAL HIGH HIGH VERY HIGH 0-19 Y 0 - 109 --- 110-129 >/= 130 ---- 20-24 Y 0 - 119 --- 120-159 >/= 160 ---- >24 Y 0 - 99 100-129 130-159 160-189 >/=190 . Performed By: #### L IPID #### [facility] [address] [place] [address] Cholesterol in VLDL [Mass/Vol] 39 mg/dL Normal 0 - 40 [facility] Comment on above: Performed By: #### L IPID #### [facility] [address] [place] [address] Cholesterol.total/Ch olesterol in HDL [Mass ratio] 2.4 {ratio} Normal [facility] Comment on above: Result Comment: REF VALUES DESIRABLE < 3.4 HIGH RISK > 5.0 Performed By: #### L IPID #### [facility] [address] [place] [address] Triglyceride [Mass/Vol] 194 mg/dL High 0 - 149 [facility] Comment on above: Result Comment: . AGE [...] Performed By: #### L IPID #### [facility] [address] [place] [address] Laboratory - Chemistry and C hemistry - challengeon 08-16-2022 Albumin BCP dye [Mass/Vol] 4.0 g/dL 3.4 - 5.0 [facility]tico[facility] Work Phone: ALP [Catalytic activity/Vol] 84 U/L 33 - 136 [facility]tico[facility] Work Phone: ALT With P-5'-P [Catalytic activity/Vol] 20 U/L 7 - 45 Anticoagulation Monitoring [facility] Work Phone: Comment on above: Patients treated wit h Sulfasalazine may generate falsely decreased results for ALT. Anion gap [Moles/Vol] 14 mmol/L 10 - 20 [facility]tico[facility] Work Phone: AST With P-5'-P [Catalytic activity/Vol] 22 U/L 9 - 39 Anticoagulation [facility] Work Phone: Bilirubin [Mass/Vol] 0.4 mg/dL 0.0 - 1.2 Anti coagulation Monitoring [facility] Work Phone: Calcium [Mass/Vol] 9.6 mg/dL 8.6 - 10.6 Antico agulation Monitoring [facility] Work Phone: Chloride [Moles/Vol] 100 mmol/L 98 - 107 Anti coagulation Monitoring [facility] Work Phone: CO2 [Moles/Vol] 27 mmol/L 21 - 32 Anticoagu lation Monitoring [facility] Work Phone: Creatinine [Mass/Vol] 0.88 mg/dL See Below Anticoagulation Monitoring [facility] Work Phone: Comment on above: Reference Range: 0.5 0 - 1.05 Glucose [Mass/Vol] 188 mg/dL above high threshold 74 - 99 [facility]tico[facility] Monitoring [facility] Work Phone: Potassium [Moles/Vol] 4.2 mmol/L 3.5 - 5.3 Anticoagulation Monitoring [facility] Work Phone: Protein [Mass/Vol] 7.4 g/dL 6.4 - 8.2 Antico agulation Monitoring [employer] Work Phone: Sodium [Moles/Vol] 137 mmol/L 136 - 145 Antico agulation Monitoring [employer] Work Phone: Urea nitrogen [Mass/Vol] 17 mg/dL 6 - 23 [facility]tico[facility] Monitoring [facility] Work Phone: Lipid Panelon 08-16-2022 Cholesterol [Mass/Vol] 164 mg/dL 0 - 199 Anticoagulation Monitoring [facility] Work Phone: Comment on above: . AGE [...] in HDL [Mass/Vol] 69.4 mg/dL Anticoagulation Monitoring [facility] Work Phone: Comment on above: . AGE VERY LOW LOW N ORMAL HIGH 0-19 Y < 35 < 40 40-45 ---- 20- 24 Y ---- < 40 >45 ---- >24 Y ---- < 40 40-60 >60. Cholesterol in LDL [Mass/Vol] 56 mg/dL 0 - 99 [facility]tico[facility] Monitoring [facility] Phone: Comment on above: . NEAR BORD AGE MARRY RABLE OPTIMAL HIGH HIGH VERY HIGH 0-19 Y 0 - 109 --- 110-129 >/= 130 ---- 20-24 Y 0 - 119 --- 120-159 >/= 160 ---- >24 Y 0 - 99 100-129 130-159 160-189 >/=190. Cholesterol.total/Ch olesterol in HDL [Mass ratio] 2.4 {ratio} Anticoagulation Monitoring [facility] Phone: Comment on above: REF VALUESDESIRABLE < 3.4HIGH RISK > 5.0 Triglyceride [Mass/Vol] 194 mg/dL above high threshold 0 - 149 Anticoagulation Monitoring [facility] Phone: Comment on above: . AGE DESIRABLE [...] mg/dL 0 - 40 Anticoagulati on Monitoring [facility] Work Phone: No Panel Informationon 08-16 70 {mL/min/1.73m2} >90 Antico agulation Monitoring [facility] Work Phone: Comment on above: CALCULATIONS OF GALILEA MATED GFR ARE PERFORMED USING THE 2020 CKD-EPI STUDY REFIT EQUATION WITHOUT THE RACE VARIABLE FOR THE IDMS-TRACEABLE CREATININE METHODS.https://jasn.asnjournals.org/content//ASN .[email or web address] OPIATE/OPIOID/BENZO EXTENDED PRESCRIPTION COMPLIANCEon 08-16-2022 6-ACETYLMORPHINE <25 Normal Cutoff <25 [facility] Comment on above: Performed By: #### D SBOP #### [facility] [address] [place] [address] 7-AMINOCLONAZEPAM <25 Normal Cutoff <25 [facility] Comment on above: Performed By: #### D SBOP #### [facility] [address] [place] [address] ALPHA-HYDROXYALPRAZO WEBSTER <25 Normal Cutoff <25 [facility] Comment on above: Performed By: #### D SBOP #### [facility] [address] [place] [address] ALPHA-HYDROXYMIDAZOL AM <25 Normal Cutoff <25 [facility] Comment on above: Performed By: #### D SBOP #### [facility] [address] [place] [address] ALPRAZOLAM <25 Normal Cutoff <25 [facility] Comment on above: Performed By: #### D SBOP #### [facility] [address] [place] [address] CHLORDIAZEPOXIDE <25 Normal Cutoff <25 [facility] Comment on above: Performed By: #### D SBOP #### [facility] [address] [place] [address] CLONAZEPAM <25 Normal Cutoff <25 [facility] Comment on above: Performed By: #### D SBOP #### [facility] [address] [place] [address] CODEINE <50 Normal Cutoff <50 [facility] Comment on above: Performed By: #### D SBOP #### [facility] [address] [place] [address] DIAZEPAM <25 Normal Cutoff <25 [facility] Comment on above: Performed By: #### D SBOP #### [facility] [address] [place] [address] EDDP,U <25 Normal Cutoff <25 [facility] Comment on above: Result Comment: The performance [...] testing. Performed By: #### D SBOP #### [facility] [address] [place] [address] FENTANYL CONFIRM,U <2.5 Normal Cutoff<2.5 [facility] Comment on above: Performed By: #### D SBOP #### [facility] [address] [place] [address] HYDROCODONE <25 Normal Cutoff <25 [facility] Comment on above: Performed By: #### D SBOP #### [facility] [address] [place] [address] HYDROMORPHONE <25 Normal Cutoff <25 [facility] Comment on above: Performed By: #### D SBOP #### [facility] [address] [place] [address] LORAZEPAM <25 Normal Cutoff <25 [facility] Comment on above: Performed By: #### D SBOP #### [facility] [address] [place] [address] METHADONE,U <25 Normal Cutoff <25 [facility] Comment on above: Performed By: #### D SBOP #### [facility] [address] [place] [address] MIDAZOLAM <25 Normal Cutoff <25 [facility] Comment on above: Performed By: #### D SBOP #### [facility] [address] [place] [address] MORPHINE <50 Normal Cutoff <50 [facility] Comment on above: Performed By: #### D SBOP #### [facility] [address] [place] [address] NORDIAZEPAM <25 Normal Cutoff <25 [facility] Comment on above: Performed By: #### D SBOP #### [facility] [address] [place] [address] NORFENTANYL CONFIRM,U <2.5 Normal Cutoff<2.5 [facility] Comment on above: Result Comment: The performance [...] testing. Performed By: #### D SBOP #### [facility] [address] [place] [address] NORHYDROCODONE <25 Normal Cutoff <25 [facility] Comment on above: Performed By: #### D SBOP #### [facility] [address] [place] [address] NOROXYCODONE <25 Normal Cutoff <25 [facility] Comment on above: Performed By: #### D SBOP #### [facility] [address] [place] [address] O-DESMETHYLTRAMADOL, U >1000 Abnormal Cutoff <50 [facility] Comment on above: Result Comment: Tram adol [...] Performed By: #### D SBOP #### [facility] [address] [place] [address] OXAZEPAM <25 Normal Cutoff <25 [facility] Comment on above: Performed By: #### D SBOP #### [facility] [address] [place] [address] OXYCODONE <25 Normal Cutoff <25 [facility] Comment on above: Performed By: #### D SBOP #### [facility] [address] [place] [address] OXYMORPHONE <25 Normal Cutoff <25 [facility] Comment on above: Result Comment: The performance [...] testing. Performed By: #### D SBOP #### [facility] [address] [place] [address] TEMAZEPAM <25 Normal Cutoff <25 [facility] Comment on above: Result Comment: The performance [...] testing. Performed By: #### D SBOP #### [facility] [address] [place] [address] TRAMADOL CONFIRM,U >1000 Abnormal Cutoff <50 [facility] Comment on above: Result Comment: Cons istent with use of a drug containing tramadol, such as Ultram. Performed By: #### D SBOP #### [facility] [address] [place] [address] ZOLPIDEM METABOLITE[ZCA] ,U <25 Normal Cutoff <25 [facility] Comment on above: Result Comment: The performance [...] Performed By: #### D SBOP #### [facility] [address] [place] [address] ZOLPIDEM,URINE <25 Normal Cutoff <25 [facility] Comment on above: Performed By: #### D SBOP #### [facility] [address] [place] [address] Today's INRon 08-16-2022 Today's INR 2-3 Anticoagulati on [facility] Work Phone: Today's INR AMS Anticoagulati on [facility] Work Phone: HEMOGLOBIN A1Con 08-14-2022 Glucose [Mass/Vol] 143 mg/dL Normal [facility] Comment on above: Performed By: #### H BA1E #### [facility] [address] [place] [address] HbA1c (Bld) [Mass fraction] 6.6 % Abnormal [facility] Comment on above: Result Comment: Diag nosis of Diabetes-Adults Non-Diabetic: < or = 5.6% Increased risk for developing diabetes: 5.7-6.4% Diagnostic of diabetes: > or = 6.5% . Monitoring of Diabetes Age (y) Therapeutic Goal (%) Adults: >18 <7.0 Pediatrics: 13-18 <7.5 7-12 <8.0 0- 6 7.5-8.5 [employer] [employer]. Diabetes Care 33(S1), May 2009. Performed By: #### H BA1E #### [facility] [address] [place] [address] PT/INRon 08-14-2022 PT Coag (PPP) [Time] 24.9 s High 9.8 - 13.4 [facility] Comment on above: Performed By: #### H BA1E #### [facility] [address] [place] [address] PT, INR 2.1 High 0.9 - 1.1 [facility] Comment on above: Performed By: #### H BA1E #### [facility] [address] [place] [address] HEMOGLOBIN A1Con 08-13-2022 Lab Specimen Source Normal [facility] Comment on above: Performed By: #### H BA1E #### [facility] [address] [place] [address] Hemoglobin A1Con 08-13-2022 Glucose [Mass/Vol] 143 mg/dL Antico agulation Monitoring [facility] Work Phone: HbA1c (Bld) [Mass fraction] 6.6 % Abnormal Anticoagulation Monitoring [facility] Work Phone: Comment on above: SOURCE: Diagnosis of Diabetes-Adults Non-Diabetic: < or = 5.6% Increased risk for developing diabetes: 5.7-6.4% Diagnostic of diabetes: > or = 6.5%. Monitoring of Diabetes Age (y) Therapeutic Goal (%) Adults: >18 <7.0 Pediatrics: 13-18 <7.5 7-12 <8.0 0- 6 7.5-8.5 [employer]. Diabetes Care 33(S1), May 2009. Laboratory - Coagulationon 0 08-13-2022 INR Coag (PPP) [Relative time] 2.1 {INR} above high threshold 0.9 - 1.1 Anticoagulation Monitoring [facility] Work Phone: PT Coag (PPP) [Time] 24.9 s above high threshold 9.8 - 13.4 Anticoagulation Monitoring [facility] Work Phone: Comment on above: SOURCE: OPIATE/OPIOID/BENZO EXTENDED PRESCRIPTION COMPLIANCEon 08-12-2022 AMPHETAMINE SCREEN,U Negative Normal NEGATIVE [facility] Comment on above: Result Comment: CUTO FF LEVEL: 500 NG/ML Cross-reactivity has been reported with high concentrations of the following drugs: buproprion, chloroquine, chlorpromazine, ephedrine, mephentermine, fenfluramine, phentermine, phenylpropanolamine, pseudoephedrine, and propranolol. Performed By: #### D SBOP #### [facility] [address] [place] [address] BARBITURATES SCREEN,U Negative Normal NEGATIVE [facility] Comment on above: Result Comment: CUTO FF LEVEL: 200 NG/ML Performed By: #### D SBOP #### [facility] [address] [place] [address] CANNABINOIDS SCREEN,U Negative Normal NEGATIVE [facility] Comment on above: Result Comment: CUTO FF LEVEL: 50 NG/ML Performed By: #### D SBOP #### [facility] [address] [place] [address] COCAINE METABOLITE SCREEN,U Negative Normal NEGATIVE [facility] Comment on above: Result Comment: CUTO FF LEVEL: 150 NG/ML Performed By: #### D SBOP #### [facility] [address] [place] [id number] Creatinine [Mass/Vol] 56.5 mg/dL Normal [facility] Comment on above: Result Comment: A ur ine creatinine result >= 20 mg/dL is considered valid without suspicion of dilution. Samples with results below this range will automatically reflex to specific gravity testing to verify specimen integrity. Performed By: #### D SBOP #### [facility] [address] [place] [address] DRUG SCREEN COMMENT. SEE BELOW Normal [facility] Comment on above: Result Comment: Drug [...] directors. Performed By: #### D SBOP #### [facility] [address] [place] [address] PCP SCREEN,U Negative Normal NEGATIVE [facility] Comment on above: Result Comment: CUTO FF LEVEL: 25 NG/ML Cross-reactivity has been reported with dextromethorphan. Performed By: #### D SBOP #### [facility] [address] [place] [address] Laboratory - Chemistry and C hemistry - challengeon 08-11-2022 Creatinine (Body fld) [Mass/Vol] 56.5 mg/dL [facility] Work Phone: Comment on above: A urine creatinine r esult >= 20 mg/dL is considered valid without suspicion of dilution. Samples with results below this range will automatically reflex to specific gravity testing to verify specimen integrity. Laboratory - Coagulationon 0 08-11-2022 INR Coag (PPP) [Relative time] 4.9 {INR} above high threshold 0.9 - 1.1 [facility] Work Phone: PT Coag (PPP) [Time] 57.9 s Critically abnormal 9.8 - 13.4 [facility] Work Phone: Comment on above: SOURCE: Laboratory - Drug toxicology on 08-11-2022 1-Hydroxymidazolam Confirm (U) [Mass/Vol] <25 Cutoff <25 Anticoagulation Monitoring [facility] Work Phone: 5-Bmoifmxwfy-6,5-Dim ethyl-3,3-Diphenylpy rrolidine (EDDP) Confirm (U) [Mass/Vol] <25 Cutoff <25 [facility] Work Phone: Comment on above: The performance [...] (U) [Mass/Vol] <25 Cutoff <25 [facility]tico[facility] Work Phone: 7-Aminoclonazepam Confirm (U) [Mass/Vol] <25 Cutoff <25 [facility] Phone: Alpha hydroxyalprazolam Confirm (U) [Mass/Vol] <25 Cutoff <25 [facility] Phone: ALPRAZolam Confirm (U) [Mass/Vol] <25 Cutoff <25 [facility] Phone: Amphetamines Screen Ql (U) Negative NEGATIVE [facility]tico[facility] Phone: Comment on above: CUTOFF LEVEL: 500 NG /ML Cross-reactivity has been reported with high concentrations of the following drugs: buproprion, chloroquine, chlorpromazine, ephedrine, mephentermine, fenfluramine, phentermine, phenylpropanolamine, pseudoephedrine, and propranolol. Barbiturates Screen Ql (U) Negative NEGATIVE [facility]tico[facility] Phone: Comment on above: CUTOFF LEVEL: 200 NG /ML Benzoylecgonine Screen Ql (U) Negative NEGATIVE [facility]tico[facility] Phone: Comment on above: CUTOFF LEVEL: 150 NG /ML Cannabinoids Screen Ql (U) Negative NEGATIVE [facility]tico[facility] Phone: Comment on above: CUTOFF LEVEL: 50 NG/ ML chlordiazePOXIDE Confirm (U) [Mass/Vol] <25 Cutoff <25 [facility]tico[facility] Phone: clonazePAM Confirm (U) [Mass/Vol] <25 Cutoff <25 [facility] Phone: Codeine Confirm (U) [Mass/Vol] <50 Cutoff <50 [facility] Phone: diazePAM Confirm (U) [Mass/Vol] <25 Cutoff <25 [facility] Phone: fentaNYL Confirm (U) [Mass/Vol] <2.5 Cutoff<2.5 [facility]tico[facility] Work Phone: HYDROcodone Confirm (U) [Mass/Vol] <25 Cutoff [...] (U) [Mass/Vol] <2.5 Cutoff<2.5 [facility] [employer] Phone: Comment on above: The performance hilda [...] Cutoff <25 [facility] Work Phone: Nortramadol (U) [Mass/Vol] >1000 Abnormal Cutoff <50 [facility] Work Phone: Comment on above: Tramadol metabolite; [...] (U) [Mass/Vol] <25 Cutoff <25 [facility] Work Phone: oxyCODONE Confirm (U) [Mass/Vol] <25 Cutoff <25 [facility] Work Phone: oxyMORphone Confirm (U) [Mass/Vol] <25 Cutoff <25 [facility] Work Phone: Comment on above: [...] Ql (U) Negative NEGATIVE Anti coagulation [facility] Work Phone: Comment on above: CUTOFF LEVEL: 25 NG/ ML Cross-reactivity has been reported with dextromethorphan. Temazepam Confirm (U) [Mass/Vol] <25 Cutoff <25 [facility] Work Phone: Comment on above: [...] [Mass/Vol] >1000 Abnormal Cutoff <50 [facility] Work Phone: Comment on above: Consistent with use of a drug containing tramadol, such as Ultram. Zolpidem (U) [Mass/Vol] <25 Cutoff <25 [facility] Work Phone: No Panel Informationon 08-11 <25 Cutoff <25 [facility]tico[facility]atio n [facility] Work Phone: Comment on above: [...] laboratory testing. SEE BELOW Antico[facility]atio n [facility] Work Phone: Comment on above: Drug screen [...] 57.9 s Critically abnormal 9.8 - 13.4 [facility] Comment on above: Order Comment: BRIAN LOPEZ PGJosé Manuel GOODMAN; MD TRAN , 08/11/2022 21:30 Performed By: #### P TINR #### [facility] [address] [place] [address] PT, INR 4.9 High 0.9 - 1.1 [facility] Comment on above: Order Comment: BRIAN GOODMAN; MD TRAN , 08/11/2022 21:30 Performed By: #### P TINR #### [facility] [address] [place] [address] Lab Specimen Source Normal [facility] Comment on above: Order Comment: ANSR SRVC PGD MD GOODMAN; MD TRAN , 08/11/2022 21:30 Performed By: #### P TINR #### [facility] [address] [place] [address] VASC LAB Carotid Artery Dupl ex Ultrasounon 08-08-2022 [facility] [address] [place] [address] and Vascular Lab Report Carotid Artery Duplex Ultrasound Patient Name: PAU Dawood Physician: [id number] Ewdin Joseph MD, [facility] Study Date: 08/08/2022 Referring JAYLON KISER Physician: MRN/PID: [id number] PCP: Accession/Order#: [id number] CC Report to: Date of : 1950 Technologist: Emili Rascon RVT Gender: F Technologist 2: Admission Status: Outpatient Location Performed: [facility] Diagnosis/ICD: I65.23-Occlusion and stenosis of bilateral carotid arteries Procedure/CPT: 70434 Cerebrovascular Carotid Duplex scan complete-[id number] CONCLUSIONS: Right Carotid: Findings are consistent with [...] cm/s Right Left ICA/CCA Ratio 1.2 0.6 [id number] Edwin Joseph MD, RPVI Final Normal [facility] CBC AND DIFFERENTIALon 08-06 % AUTOMATED IMMATURE GRAN 0.1 % Normal 0.0 - 0.9 [facility] Comment on above: Result Comment: Ammy ture Granulocyte Count (IG) includes promyelocytes, myelocytes and metamyelocytes but does not include bands. Percent differential counts (%) should be interpreted in the context of the absolute cell counts (cells/L). Performed By: #### C BCDF #### [facility] [address] [place] [address] Basophils (Bld) [#/Vol] 0.05 10*3/uL Normal 0.00 - 0.10 [facility] Comment on above: Performed By: #### C BCDF #### [facility] [address] [place] [address] Basophils/100 WBC (Bld) 0.7 % Normal 0.0 - 2.0 [facility] Comment on above: Performed By: #### C BCDF #### [facility] [address] [place] [address] Eosinophils (Bld) [#/Vol] 0.20 10*3/uL Normal 0.00 - 0.40 [facility] Comment on above: Performed By: #### C BCDF #### [facility] [address] [place] [address] Eosinophils/100 WBC (Bld) 2.8 % Normal 0.0 - 6.0 [facility] Comment on above: Performed By: #### C BCDF #### [facility] [address] [place] [address] Erythrocyte distribution width (RBC) [Ratio] 14.4 % Normal 11.5 - 14.5 [facility] Comment on above: Performed By: #### C BCDF #### [facility] [address] [place] [address] Hematocrit (Bld) [Volume fraction] 44.4 % Normal 36.0 - 46.0 [facility] Comment on above: Performed By: #### C BCDF #### [facility] [address] [place] [address] Hemoglobin (Bld) [Mass/Vol] 14.3 g/dL Normal 12.0 - 16.0 [facility] Comment on above: Performed By: #### C BCDF #### [facility] [address] [place] [address] Lymphocytes (Bld) [#/Vol] 2.25 10*3/uL Normal 0.80 - 3.00 [facility] Comment on above: Performed By: #### C BCDF #### [facility] [address] [place] [address] Lymphocytes/100 WBC (Bld) 31.4 % Normal 13.0 - 44.0 [facility] Comment on above: Performed By: #### C BCDF #### [facility] [address] [place] [address] MCHC (RBC) [Mass/Vol] 32.2 g/dL Normal 32.0 - 36.0 [facility] Comment on above: Performed By: #### C BCDF #### [facility] [address] [place] [address] MCV (RBC) [Entitic vol] 92 fL Normal 80 - 100 [facility] Comment on above: Performed By: #### C BCDF #### [facility] [address] [place] [address] Monocytes (Bld) [#/Vol] 0.64 10*3/uL Normal 0.05 - 0.80 [facility] Comment on above: Performed By: #### C BCDF #### [facility] [address] [place] [address] Monocytes/100 WBC (Bld) 8.9 % Normal 2.0 - 10.0 [facility] Comment on above: Performed By: #### C BCDF #### [facility] [address] [place] [address] Neutrophils (Bld) [#/Vol] 4.01 10*3/uL Normal 1.60 - 5.50 [facility] Comment on above: Performed By: #### C BCDF #### [facility] [address] [place] [address] Neutrophils/100 WBC (Bld) 56.1 % Normal 40.0 - 80.0 [facility] Comment on above: Performed By: #### C BCDF #### [facility] [address] [place] [address] NUCLEATED RBC 0.0 /100 WBC Normal 0.0-0.0 [facility] Comment on above: Performed By: #### C BCDF #### [facility] [address] [place] [address] Platelets (Bld) [#/Vol] 270 10*3/uL Normal 150 - 450 [facility] Comment on above: Performed By: #### C BCDF #### [facility] [address] [place] [address] RBC 4.85 x10E12/L Normal 4.00 - 5.20 [facility] Comment on above: Performed By: #### C BCDF #### [facility] [address] [place] [address] WBC (Bld) [#/Vol] 7.2 10*3/uL Normal 4.4 - 11.3 [facility] Comment on above: Performed By: #### C BCDF #### [facility] [address] [place] [address] Lab Specimen Source Normal [facility] Comment on above: Performed By: #### C BCDF #### [facility] [address] [place] [address] Performed By: #### P TINR #### [facility] [address] [place] [address] Complete Blood Count + Diffe rentialon 08-06-2022 Basophils/100 WBC (Bld) 0.7 % 0.0 - 2.0 [facility] Work Phone: Erythrocyte distribution width (RBC) [Ratio] 14.4 % See Below [facility] Work Phone: Comment on above: Reference Range: 11. 5 - 14.5 Hematocrit (Bld) [Volume fraction] 44.4 % See Below [facility] Work Phone: Comment on above: Reference Range: 36. 0 - 46.0 Hemoglobin (Bld) [Mass/Vol] 14.3 g/dL See Below [facility] Work Phone: Comment on above: Reference Range: 12. 0 - 16.0 Lymphocytes/100 WBC (Bld) 31.4 % See Below [facility] Work Phone: Comment on above: Reference Range: 13. 0 - 44.0 MCHC (RBC) [Mass/Vol] 32.2 g/dL See Below [facility] Work Phone: Comment on above: Reference Range: 32. 0 - 36.0 MCV (RBC) [Entitic vol] 92 fL 80 - 100 [facility] Work Phone: Monocytes/100 WBC (Bld) 8.9 % 2.0 - 10.0 [facility] Work Phone: Neutrophils/100 WBC (Bld) 56.1 % See Below [facility] Work Phone: Comment on above: Reference Range: 40. 0 - 80.0 Platelets (Bld) [#/Vol] 270 10*3/uL 150 - 450 [facility] Work Phone: RBC (Bld) [#/Vol] 4.85 {x10E12/L} See Below [facility] Work Phone: Comment on above: Reference Range: 4.0 0 - 5.20 WBC (Bld) [#/Vol] 7.2 10*3/uL 4.4 - 11.3 [facility] Work Phone: Comment on above: SOURCE: Complete Blood Count + Differential 0.05 {x10E9/L} See Below [facility] Work Phone: Comment on above: Reference Range: 0.0 0 - 0.10 Complete Blood Count + Differential 0.20 {x10E9/L} See Below [facility] Work Phone: Comment on above: Reference Range: 0.0 0 - 0.40 Complete Blood Count + Differential 0.64 {x10E9/L} See Below [facility] Work Phone: Comment on above: Reference Range: 0.0 5 - 0.80 Complete Blood Count + Differential 2.25 {x10E9/L} See Below [facility] Work Phone: Comment on above: Reference Range: 0.8 0 - 3.00 Complete Blood Count + Differential 4.01 {x10E9/L} See Below [facility] Work Phone: Comment on above: Reference Range: 1.6 0 - 5.50 Complete Blood Count + Differential 2.8 % 0.0 - 6.0 [facility] Work Phone: Complete Blood Count + Differential 0.1 % 0.0 - 0.9 [facility] Work Phone: Comment on above: Immature Granulocyte Count (IG) includes promyelocytes, myelocytes and metamyelocytes but does not include bands. Percent differential counts (%) should be interpreted in the context of the absolute cell counts (cells/L). Complete Blood Count + Differential 0.0 {/100_WBC} 0.0-0.0 [facility] Work Phone: Laboratory - Coagulationon 0 08-06-2022 INR Coag (PPP) [Relative time] 1.6 {INR} above high threshold 0.9 - 1.1 [facility] Work Phone: PT Coag (PPP) [Time] 19.1 s above high threshold 9.8 - 13.4 [facility] Work Phone: Comment on above: SOURCE: PT/INRon 08-06-2022 PT Coag (PPP) [Time] 19.1 s High 9.8 - 13.4 [facility] Comment on above: Performed By: #### P TINR #### [facility] [address] [place] [address] PT, INR 1.6 High 0.9 - 1.1 [facility] Comment on above: Performed By: #### P TINR #### [facility] [address] [place] [address] Office Visiton 06-29-2022 Follow-up visit Diagnoses/Problems Asthma [...] 4 days ago no nasal congestion says sometimes I feel i have a mucus plug in the back of my throat and feels she can't breathe until she [...] intensity statin-has not tolerated high intensity 09/2021 LDL=50,RY=718 Hypertension (401.9) (I10) BP OK on current [...] Jul 2019 (more content not included)... Normal [facility] Chart Updateon 06-26-2022 Chart Update Orders Generalized [...] Jun 26 2022 10:09AM EST (Author) Normal [facility] BONE DENSITY, DEXA 1 OR MORE SITES: [...] Electronically signed by: YOVANY SARMIENTO MD Normal [facility] Mamm - Screening Mammogram w / Tomosynthesison 06-06-2022 MG Breast Screening FINAL REPORT Interpreted by: JENNA SU LOUISE, MD 06/08/22 14:33 Patient Name: PAU MUÑOZ STUDY: DIGITAL MAMM SCREENING W/ JOHN; 06/06/2022 1:35 pm ACCESSION NUMBER(S): [id number] ORDERING CLINICIAN: RONIT DOAN INDICATION: Normal MP-Internal [...] ER follow up. 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 [facility] VITALSon 05-26-2022 Adult depression screening assessment [...] a mile she visits family, goes to [place] a lot *Active Problems Acute bronchitis (466.0) [...] intensity statin-has not tolerated high intensity 09/2021 LDL=50,AJ=607 Hypertension (401.9) (I10) BP OK on current [...] sustained palpitati (more content not included)... Normal [facility] HEMOGLOBIN A1Con 04-07-2022 Glucose [Mass/Vol] 143 mg/dL Normal [facility] Comment on above: Performed By: #### H BA1E #### [facility] [address] [place] [address] HbA1c (Bld) [Mass fraction] 6.6 % Abnormal [facility] Comment on above: Result Comment: Diag nosis of Diabetes-Adults Non-Diabetic: < or = 5.6% Increased risk for developing diabetes: 5.7-6.4% Diagnostic of diabetes: > or = 6.5% . Monitoring of Diabetes Age (y) Therapeutic Goal (%) Adults: >18 <7.0 Pediatrics: 13-18 <7.5 7-12 <8.0 0- 6 7.5-8.5 [employer]. Diabetes Care 33(S1), May 2009. Performed By: #### H BA1E #### [facility] [address] [place] [address] Hemoglobin A1Con 04-07-2022 Glucose [Mass/Vol] 143 mg/dL [facility] Work Phone: HbA1c (Bld) [Mass fraction] 6.6 % Abnormal [facility] Work Phone: Comment on above: Diagnosis of Diabete s-Adults Non-Diabetic: < or = 5.6% Increased risk for developing diabetes: 5.7-6.4% Diagnostic of diabetes: > or = 6.5%. Monitoring of Diabetes Age (y) Therapeutic Goal (%) Adults: >18 <7.0 Pediatrics: 13-18 <7.5 7-12 <8.0 0- 6 7.5-8.5 [employer]. Diabetes Care 33(S1), May 2009. Laboratory - Chemistry and C hemistry - challengeon 04-07-2022 TSH Qn 2.01 m[IU]/L See Below [facility] Work Phone: Comment on above: Reference Range: 0.4 4 - 3.98 TSH testing is performed using different testing methodology at [facility] than at other [facility]. Direct result comparisons should only be made within the same method. TSH WITH REFLEX TO FREE T4 I F ABNORMALon 04-07-2022 TSH Qn 2.01 m[IU]/L Normal 0.44 - 3.98 [facility] Comment on above: Result Comment: TSH testing is performed using different testing methodology at [facility] than at other [facility]. Direct result comparisons should only be made within the same method. Performed By: #### H BA1E #### [facility] [address] [place] [address] Office Visit (Cardiology)on 03-21-2022 Follow-up visit Diagnoses/Problems [...] intensity statin-has not tolerated high intensity 09/2021 LDL=50,II=281 Hypertension (401.9) (I10) BP OK on current [...] intensity statin-has not tolerated high intensity 09/2021 LDL=50,PG=149 Hypertension (401.9) (I10) BP OK on current [...] patch angioplas (more content not included)... Normal [facility] Tobacco Screening.on 022 Tobacco use status CPHS [...] intensity statin-has not tolerated high intensity 09/2021 LDL=50,GH=619 Hypertension (401.9) (I10) SBP borderline Weight loss/Salt [...] [Mass/Vol] 126 mg/dL High 74 - 99 [facility] Comment on above: Performed By: #### G IRVING #### [facility] [address] [place] [address] Laboratory - Chemistry and C hemistry - challengeon 03-01-2022 Glucose [Mass/Vol] 126 mg/dL above high threshold 74 - 99 [facility] MAC[facility] 100 DO Work Phone: Operative Reports - [facility] 03-01-2022 Operative Reports - [facility] SURGEON: Yg López MD PREOPERATIVE DIAGNOSIS: Right middle finger trigger digit. POSTOPERATIVE DIAGNOSIS: Right middle finger trigger digit. PROCEDURE: Right middle finger A1 linn release. FISHER: NGUYỄN Hwang ANESTHESIA: Local with intravenous sedation. [...] Yg López MD EST EST DICTATION NUMBER: [id number] INTERNAL JOB NUMBER: [id number] Electronic Signatures: Yg López) (Signed on 02-Mar-2022 11:51) Authored Unsigned, Draft (SYS GENERATED) (Entered on 02-Mar-2022 10:04) Entered Last Updated: 02-Mar-2022 11:51 by Yg López) [facility] Order Reconciliationon 03-01 Order Reconciliation Page 1 [...] Patient Instru (more content not included)... Normal [facility] Patient Profile - Preop v3on 02-28-2022 Patient Profile - Preop v3 Patient Profile - Preop: Initial Info: Patient DemographicsName: PAU MUÑOZ Date: 1950 Address: [address] [place] [address] Date/Time [id number] 12:00 Primary Phone [phone] Call Attemptedattempt 1 Instructions Giventime to arrive [...] Health: Weight in kg85 kilogram(s) Weight in mmd821.3 pound(s) Height in feet5 feet Height in inches0 inch(es) Height in cm152.4 centimeter(s) BMI (kg/m2)36.597 square meter Patient or Family Member Reaction to Anesthesiano previous reaction Blood Avoidance/Restrictions none Previous Transfusion Reactionnot applicable Health Mgmt: Symptoms/Conditions Managed at [facility] H&P Barriers to Managing Healthnone Relationship/Environ: Lives Withalone Living Arrangementshouse Resource/Environmental Concernsnone Anticipated Transition [employer] Anticipated at Transitionnone Tobacco Use: Tobacco Useno Additional Information: Information Review: Allergies, Home Meds and Significant Events have been Reviewed and Verified with Patient/Familyyes Allergy, Intolerance, Adverse Event: Allergies: contrast (specific type unknown): Contrast, Unknown, Active Keflex: Drug, Rash, Active Bactrim: Drug, Rash, Active Levaquin: Drug, Rash, Active sulfa drugs: Drug Category, Rash, Active Electronic Signatures: Loren Arora (CRISTAL) (Signed 01-Mar-2022 08:31) Authored: Initial Info, General Health, Health Mgmt, Relationship/Environ, Tobacco Use, Additional Information Steph Brady) (Signed 28-Feb-2022 12:03) Authored: Initial Info, Additional Information Last Updated: 01-Mar-2022 08:31 by Loren Arora (CRISTAL) Normal [facility] Electrocardiogram 12 Leadon 02-23-2022 Electrocardiogram 12 Lead Ventricular Rate 74 Atrial Rate 74 QRS Duration 150 Q-T Interval 430 QTC Calculation(Bazett) 477 R [place] -50 T [place] 108 QRS Count 13 Q Onset 196 T Offset 411 QTC Fredericia 461 Diagnosis Class Abnormal Diagnosis Ventricular-paced rhythm with occasional premature ventricular complexes Abnormal ECG When compared with ECG of 28-JUL-2021 13:26, premature ventricular complexes are now present Vent. rate has increased BY 12 BPM Confirmed by Zion Zamora ([id number]) on 02/24/2022 4:15:38 PM Normal [facility] HGB + HCTon 02-23-2022 Hematocrit (Bld) [Volume fraction] 44.3 % Normal 36.0 - 46.0 [facility] Comment on above: Performed By: #### H H #### [facility] [address] [place] [address] Hemoglobin (Bld) [Mass/Vol] 14.1 g/dL Normal 12.0 - 16.0 [facility] Comment on above: Performed By: #### H H #### [facility] [address] [place] [address] Laboratory - Hematology and Cell countson 02-23-2022 Hematocrit (Bld) [Volume fraction] 44.3 % See Below [facility] MAC4 100 DO Work Phone: Comment on above: Reference Range: 36. 0 - 46.0 Hemoglobin (Bld) [Mass/Vol] 14.1 g/dL See Below [facility] MAC[facility] 100 DO Work Phone: Comment on above: Reference Range: 12. 0 - 16.0 No Panel Informationon 02-23 [email or web address] 1:[email or web address]?[email or web address] [email or web address]?PatientID=[id number]&Date= 2&Time=12%3a59%3a36%3a 00&TestType=ECG&Site=1 0&OutputType=PDF&Ext=P DF [facility] MAC[facility] 100 DO Work Phone: Ventricular-paced rhythm with occasional premature ventricular complexes [facility] MAC[facility] 100 DO Work Phone: Abnormal [facility] MAC[facility] 100 DO Work Phone: [phone] [facility] MAC[facility] 100 DO Work Phone: [phone] [facility] 100 DO Work Phone: 196 1 [facility] 100 DO Work Phone: 13 1 [facility] 100 DO Work Phone: 108 1 [facility] 100 DO Work Phone: -50 1 [facility] 100 DO Work Phone: 477 1 [facility] 100 DO Work Phone: 430 1 [facility] 100 DO Work Phone: 150 1 [facility] 100 DO Work Phone: 74 1 [facility] 100 DO Work Phone: Blood Pressure Cuff Sizeon 1 Blood Pressure Cuff Size Adult [facility] 202 Work Phone: Office Visit (Vascular Surge )on 02-17-2022 Follow-up visit Diagnoses/Problems Assessed Carotid stenosis [...] Had mild CHF per CXR/BNP on 03/06/21 General admit Increased diuretic Added lisnopril for better BP control- Watch salt intake History of COVID-19 (V12.09) (Z86.16) Hospital discharge follow-up (V67.59) (Z09) Hypercholesterolemia (272.0) (E78.00) On lmoderate intensity statin-has not tolerated high intensity 09/2021 LDL=50,TY=614 Hypertension (401.9) (I10) SBP borderline Weight loss/Salt [...] left ind (more content not included)... Normal [facility] Office Visit (Cardiology)on 02-07-2022 Follow-up visit Diagnoses/Problems [...] intensity statin-has not tolerated high intensity 09/2021 LDL=50,YP=307 Hypertension (401.9) (I10) SBP borderline Weight loss/Salt [...] with removal (more content not included)... Normal [facility] Tobacco Screening.on 022 Fall risk assessment a) No falls within the last year [facility] Work Phone: Tobacco use status CPHS b) No -[facility] Work Phone: VAS LAB Carotid Artery Dupl ex Ultrasounon 02-01-2022 VAS LAB Carotid Artery Duplex [place] [address] and Vascular Lab Report Carotid Artery Duplex Ultrasound Patient Name: PAU MUÑOZ Reading Physician: [id number] Serena Pascal MD Study Date: 02/01/2022 Referring Physician: JAYLON KISER MRN/PID: [id number] PCP: Accession/Order#: [id number] CC Report to: Date of : 1950 Technologist: June SILVA Gender: F Technologist 2: Admission Status: Outpatient Location Performed: [facility] Diagnosis/ICD: I65.23-Occlusion and stenosis of bilateral carotid arteries Procedure/CPT: 88296 Cerebrovascular Carotid Duplex scan complete-10526 Patient History Carotid surgery. LCEA. CONCLUSIONS: Right [...] cm/s Right Left ICA/CCA Ratio 0.9 1.1 82343 Serena Pascal MD Final Normal [facility] VASC LAB Carotid Artery Dupl ex Ultrasoundon 02-01-2022 US.doppler Carotid arteries Please click on the link to view the study images Normal [facility] Work Phone: Hemoglobin A1Con 01-07-2022 Glucose [Mass/Vol] 140 mg/dL [facility] Work Phone: HbA1c (Bld) [Mass fraction] 6.5 % Abnormal [facility] Work Phone: Comment on above: Diagnosis of Diabete s-Adults Non-Diabetic: < or = 5.6% Increased risk for developing diabetes: 5.7-6.4% Diagnostic of diabetes: > or = 6.5%. Monitoring of Diabetes Age (y) Therapeutic Goal (%) Adults: >18 <7.0 Pediatrics: 13-18 <7.5 7-12 <8.0 0- 6 7.5-8.5 [employer]. Diabetes Care 33(S1), May 2009. Tobacco Screening.on Adult depression screening assessment No [facility] Work Phone: Fall risk assessment a) No falls within the last year [facility] Work Phone: Tobacco use status CPHS b) No [facility] Work Phone: Tobacco Screening.on Tobacco use status CPHS b) No TQ-Jjaibtkzcw-Qb rma Work Phone: Tobacco Screening.on 022 Fall risk assessment a) No falls within the last year DF-Nsjbpmanmw-Fx rma Work Phone: Tobacco use status CPHS b) No YJ-Bteqaewfiw-Aw rma Work Phone: Hemoglobin A1Con 09-16-2021 Glucose [Mass/Vol] 134 mg/dL -Car diology-Pa rma Work Phone: HbA1c (Bld) [Mass fraction] 6.3 % Abnormal VW-Wwzbktcfsp-Hw rma Work Phone: Comment on above: Diagnosis of Diabete s-Adults Non-Diabetic: < or = 5.6% Increased risk for developing diabetes: 5.7-6.4% Diagnostic of diabetes: > or = 6.5%. Monitoring of Diabetes Age (y) Therapeutic Goal (%) Adults: >18 <7.0 Pediatrics: 13-18 <7.5 7-12 <8.0 0- 6 7.5-8.5 [employer]. Diabetes Care 33(S1), May 2009. Laboratory - Chemistry and C hemistry - challengeon 09-16-2021 Albumin BCP dye [Mass/Vol] 4.0 g/dL 3.4 - 5.0 EX-Adofclzmgm-Ho rma Work Phone: ALP [Catalytic activity/Vol] 84 U/L 33 - 136 VS-Uvftxznici-Ru rma Work Phone: ALT With P-5'-P [Catalytic activity/Vol] 13 U/L 7 - 45 DR-Zagtiqljho-Ly rma Work Phone: Comment on above: Patients treated wit h Sulfasalazine may generate falsely decreased results for ALT. Anion gap [Moles/Vol] 13 mmol/L 10 - 20 GC-Xeakwmwxhg-Qy rma Work Phone: AST With P-5'-P [Catalytic activity/Vol] 18 U/L 9 - 39 ES-Htftdagyrr-Yt rma Work Phone: Bilirubin [Mass/Vol] 0.4 mg/dL 0.0 - 1.2 MP-C ardiology-Pa rma Work Phone: Calcium [Mass/Vol] 9.6 mg/dL 8.6 - 10.6 MP-Car diology-Pa rma Work Phone: Chloride [Moles/Vol] 101 mmol/L 98 - 107 MP-C ardiology-Pa rma Work Phone: CO2 [Moles/Vol] 28 mmol/L 21 - 32 MP-Cardio logy-Pa rma Work Phone: Creatinine [Mass/Vol] 0.88 mg/dL See Below OS-Tymglhhgqt-Ar rma Work Phone: Comment on above: Reference Range: 0.5 0 - 1.05 Glucose [Mass/Vol] 141 mg/dL above high threshold 74 - 99 KH-Hsoxrlfrkd-Nu rma Work Phone: Potassium [Moles/Vol] 4.2 mmol/L 3.5 - 5.3 QQ-Fwtgxbipnj-Xk rma Work Phone: Protein [Mass/Vol] 7.4 g/dL 6.4 - 8.2 MP-Car diology-Pa rma Work Phone: Sodium [Moles/Vol] 138 mmol/L 136 - 145 MP-Car diology-Pa rma Work Phone: Urea nitrogen [Mass/Vol] 22 mg/dL 6 - 23 MW-Jvncgqdyhy-Mu rma Work Phone: Lipid Panelon 09-16-2021 Cholesterol [Mass/Vol] 162 mg/dL 0 - 199 LI-Sdakklpowe-Cg rma Work Phone: Comment on above: . [...] dosing. Cholesterol in HDL [Mass/Vol] 67.7 mg/dL OA-Wehymvvyka-Zk [employer] Work Phone: Comment on above: . AGE VERY LOW LOW N ORMAL HIGH 0-19 Y < 35 < 40 40-45 ---- 20- 24 Y ---- < 40 >45 ---- >24 Y ---- < 40 40-60 >60. Cholesterol in LDL [Mass/Vol] 50 mg/dL 0 - 99 XU-Ickbzhqzrg-Ym [facility] Work Phone: Comment on above: . NEAR BORD AGE MARRY RABLE OPTIMAL HIGH HIGH VERY HIGH 0-19 Y 0 - 109 --- 110-129 >/= 130 ---- 20-24 Y 0 - 119 --- 120-159 >/= 160 ---- >24 Y 0 - 99 100-129 130-159 160-189 >/=190. Cholesterol non HDL [Mass/Vol] 94 mg/dL VJ-Wfzlejyzao-Kd [employer] [facility] Work Phone: Comment on above: AGE DESIRABLE BORDER LINE HIGH HIGH VERY HIGH 0-19 Y 0 - 119 120 - 144 >/= 145 >/= 160 20-24 Y 0 - 149 150 - 189 >/= 190 ---- >24 Y 30 MG/DL ABOVE LDL CHOLESTEROL GOAL. Cholesterol.total/Ch olesterol in HDL [Mass ratio] 2.4 {ratio} QC-Gotvllhvbv-Lp [employer] [facility] Work Phone: Comment on above: REF VALUESDESIRABLE < 3.4HIGH RISK > 5.0 Triglyceride [Mass/Vol] 221 mg/dL above high threshold 0 - 149 IB-Iarnadrhrb-Ef [employer] Work Phone: Comment on above: . AGE [...] mg/dL above high threshold 0 - 40 IU-Zqusntfhig-Au rma Work Phone: No Panel Informationon 09-16 70 {mL/min/1.73m2} >90 MP-Car diology-Pa rma Work Phone: Comment on above: CALCULATIONS OF GALILEA MATED GFR ARE PERFORMED USING THE 2020 CKD-EPI STUDY REFIT EQUATION WITHOUT THE RACE VARIABLE FOR THE IDMS-TRACEABLE CREATININE METHODS.https://jasn.asnjournals.org/content//ASN .8537187844 Laboratory - Hematology and Cell countson 08-01-2021 Erythrocyte distribution width (RBC) [Ratio] 15.8 % above high threshold See Below [facility] Work Phone: Comment on above: Reference Range: 11. 5 - 14.5 Hematocrit (Bld) [Volume fraction] 37.7 % See Below [facility] Work Phone: Comment on above: Reference Range: 36. 0 - 46.0 Hemoglobin (Bld) [Mass/Vol] 12.1 g/dL See Below [facility] Work Phone: Comment on above: Reference Range: 12. 0 - 16.0 MCHC (RBC) [Mass/Vol] 32.1 g/dL See Below [facility] Work Phone: Comment on above: Reference Range: 32. 0 - 36.0 MCV (RBC) [Entitic vol] 89 fL 80 - 100 [facility] Work Phone: Platelets (Bld) [#/Vol] 241 10*3/uL 150 - 450 [facility] Work Phone: RBC (Bld) [#/Vol] 4.23 {x10E12/L} See Below [facility] Work Phone: Comment on above: Reference Range: 4.0 0 - 5.20 WBC (Bld) [#/Vol] 18.1 10*3/uL above high threshold 4.4 - 11.3 [facility] Work Phone: Magnesium, Serumon 2 Magnesium [Mass/Vol] 1.94 mg/dL See Below MP-[facility] Work Phone: Comment on above: Reference Range: 1.6 0 - 2.40 No Panel Informationon 08-01 0.0 {/100_WBC} 0.0 - 0.0 [facility] Work Phone: Renal Function Panelon 08-01 Albumin BCP dye [Mass/Vol] 3.6 g/dL 3.4 - 5.0 [facility] Work Phone: Anion gap [Moles/Vol] 9 mmol/L below low threshold 10 - 20 [facility] Work Phone: Calcium [Mass/Vol] 9.0 mg/dL 8.6 - 10.3 [facility] Work Phone: Chloride [Moles/Vol] 101 mmol/L 98 - 107 [facility] Work Phone: CO2 [Moles/Vol] 30 mmol/L 21 - 32 [facility] Work Phone: Creatinine [Mass/Vol] 0.76 mg/dL See Below [facility] Work Phone: Comment on above: Reference Range: 0.5 0 - 1.05 Glucose [Mass/Vol] 131 mg/dL above high threshold 74 - 99 [facility] Work Phone: Phosphate [Mass/Vol] 3.4 mg/dL 2.5 - 4.9 [facility] Work Phone: Comment on above: The performance hilda acteristics of phosphorus testing in heparinized plasma have been validated by the individual laboratory site where testing is performed. Testing on heparinized plasma is not approved by the FDA; however, such approval is not necessary. Potassium [Moles/Vol] 4.2 mmol/L 3.5 - 5.3 [facility] Work Phone: Sodium [Moles/Vol] 136 mmol/L 136 - 145 [facility] Work Phone: Urea nitrogen [Mass/Vol] 21 mg/dL 6 - 23 [facility] Work Phone: Renal Function Panel 84 {mL/min/1.73m2} >90 [facility] Work Phone: Comment on above: CALCULATIONS OF GALILEA MATED GFR ARE PERFORMED USING THE 2020 CKD-EPI STUDY REFIT EQUATION WITHOUT THE RACE VARIABLE FOR THE IDMS-TRACEABLE CREATININE METHODS.https://jasn.asnjournals.org/content/early/ASN .7804259438 Laboratory - Hematology and Cell countson 07-31-2021 Erythrocyte distribution width (RBC) [Ratio] 15.7 % above high threshold See Below [facility] Work Phone: Comment on above: Reference Range: 11. 5 - 14.5 Hematocrit (Bld) [Volume fraction] 37.9 % See Below [facility] Work Phone: Comment on above: Reference Range: 36. 0 - 46.0 Hemoglobin (Bld) [Mass/Vol] 12.1 g/dL See Below [facility] Work Phone: Comment on above: Reference Range: 12. 0 - 16.0 MCHC (RBC) [Mass/Vol] 31.9 g/dL below low threshold See Below [facility] Work Phone: Comment on above: Reference Range: 32. 0 - 36.0 MCV (RBC) [Entitic vol] 90 fL 80 - 100 [facility] Work Phone: Platelets (Bld) [#/Vol] 257 10*3/uL 150 - 450 [facility] Work Phone: RBC (Bld) [#/Vol] 4.20 {x10E12/L} See Below [facility] Work Phone: Comment on above: Reference Range: 4.0 0 - 5.20 WBC (Bld) [#/Vol] 12.3 10*3/uL above high threshold 4.4 - 11.3 [facility] Work Phone: Magnesium, Serumon 2 Magnesium [Mass/Vol] 1.90 mg/dL See Below [facility] Work Phone: Comment on above: Reference Range: 1.6 0 - 2.40 No Panel Informationon 07-31 0.0 {/100_WBC} 0.0 - 0.0 [facility] Work Phone: Renal Function Panelon 07-31 Albumin BCP dye [Mass/Vol] 3.5 g/dL 3.4 - 5.0 [facility] Work Phone: Anion gap [Moles/Vol] 12 mmol/L 10 - 20 [facility] Work Phone: Calcium [Mass/Vol] 8.7 mg/dL 8.6 - 10.3 [facility] Work Phone: Chloride [Moles/Vol] 102 mmol/L 98 - 107 [facility] Work Phone: CO2 [Moles/Vol] 25 mmol/L 21 - 32 [facility] Work Phone: Creatinine [Mass/Vol] 0.79 mg/dL See Below [facility] Work Phone: Comment on above: Reference Range: 0.5 0 - 1.05 Glucose [Mass/Vol] 165 mg/dL above high threshold 74 - 99 [facility] Work Phone: Phosphate [Mass/Vol] 3.4 mg/dL 2.5 - 4.9 [facility] Work Phone: Comment on above: The performance hilda acteristics of phosphorus testing in heparinized plasma have been validated by the individual laboratory site where testing is performed. Testing on heparinized plasma is not approved by the FDA; however, such approval is not necessary. Potassium [Moles/Vol] 4.3 mmol/L 3.5 - 5.3 [facility] Work Phone: Sodium [Moles/Vol] 135 mmol/L below low threshold 136 - 145 [facility] Work Phone: Urea nitrogen [Mass/Vol] 16 mg/dL 6 - 23 [facility] Work Phone: Renal Function Panel 80 {mL/min/1.73m2} >90 [facility] Work Phone: Comment on above: CALCULATIONS OF GALILEA MATED GFR ARE PERFORMED USING THE 2020 CKD-EPI STUDY REFIT EQUATION WITHOUT THE RACE VARIABLE FOR THE IDMS-TRACEABLE CREATININE METHODS.https://jasn.asnjournals.org/content/early/ASN .2695082426 Radiologyon 07-30-2021 XR Chest Single view Normal MP[facility] Work Phone: Complete Blood Count + Diffe rentialon 07-28-2021 Basophils/100 WBC (Bld) 0.6 % 0.0 - 2.0 [facility] Work Phone: Erythrocyte distribution width (RBC) [Ratio] 15.4 % above high threshold See Below [facility] Work Phone: Comment on above: Reference Range: 11. 5 - 14.5 Hematocrit (Bld) [Volume fraction] 46.3 % above high threshold See Below [facility] Work Phone: Comment on above: Reference Range: 36. 0 - 46.0 Hemoglobin (Bld) [Mass/Vol] 14.9 g/dL See Below [facility] Work Phone: Comment on above: Reference Range: 12. 0 - 16.0 Lymphocytes/100 WBC (Bld) 25.7 % See Below [facility] Work Phone: Comment on above: Reference Range: 13. 0 - 44.0 MCHC (RBC) [Mass/Vol] 32.2 g/dL See Below [facility] Work Phone: Comment on above: Reference Range: 32. 0 - 36.0 MCV (RBC) [Entitic vol] 88 fL 80 - 100 [facility] Work Phone: Monocytes/100 WBC (Bld) 11.6 % 2.0 - 10.0 [facility] Work Phone: Neutrophils/100 WBC (Bld) 59.9 % See Below [facility] Work Phone: Comment on above: Reference Range: 40. 0 - 80.0 Platelets (Bld) [#/Vol] 307 10*3/uL 150 - 450 [facility] Work Phone: RBC (Bld) [#/Vol] 5.24 {x10E12/L} above high threshold See Below [facility] Work Phone: Comment on above: Reference Range: 4.0 0 - 5.20 WBC (Bld) [#/Vol] 10.3 10*3/uL 4.4 - 11.3 [facility] Work Phone: Complete Blood Count + Differential 0.06 {x10E9/L} See Below [facility] Work Phone: Comment on above: Reference Range: 0.0 0 - 0.10 Complete Blood Count + Differential 0.19 {x10E9/L} See Below [facility] Work Phone: Comment on above: Reference Range: 0.0 0 - 0.40 Complete Blood Count + Differential 1.20 {x10E9/L} above high threshold See Below [facility] Work Phone: Comment on above: Reference Range: 0.0 5 - 0.80 Complete Blood Count + Differential 2.65 {x10E9/L} See Below [facility] Work Phone: Comment on above: Reference Range: 0.8 0 - 3.00 Complete Blood Count + Differential 6.19 {x10E9/L} above high threshold See Below [facility] Work Phone: Comment on above: Reference Range: 1.6 0 - 5.50 Complete Blood Count + Differential 1.8 % 0.0 - 6.0 [facility] Work Phone: Complete Blood Count + Differential 0.4 % 0.0 - 0.9 [facility] Work Phone: Comment on above: Immature Granulocyte Count (IG) includes promyelocytes, myelocytes and metamyelocytes but does not include bands. Percent differential counts (%) should be interpreted in the context of the absolute cell counts (cells/L). Complete Blood Count + Differential 0.0 {/100_WBC} 0.0 - 0.0 [facility] Work Phone: Cult, Urineon 07-28-2021 Bacteria identified Cx Nom (U) [facility] Work Phone: Laboratory - Blood bankon ABO group Nom (Bld) [facility] [place] [facility] Work Phone: Blood group antibody screen Ql Negative [facility] Work Phone: Rh immune globulin screen (Bld) [Interp] Positive [facility] Work Phone: Laboratory - Chemistry and C hemistry - challengeon 07-28-2021 Albumin BCP dye [Mass/Vol] 4.3 g/dL 3.4 - 5.0 [facility] Work Phone: ALP [Catalytic activity/Vol] 83 U/L 33 - 136 [facility] Work Phone: ALT With P-5'-P [Catalytic activity/Vol] 14 U/L 7 - 45 [facility] Work Phone: Comment on above: Patients treated wit h Sulfasalazine may generate falsely decreased results for ALT. Anion gap [Moles/Vol] 13 mmol/L 10 - 20 [facility] Work Phone: AST With P-5'-P [Catalytic activity/Vol] 18 U/L 9 - 39 [facility] Work Phone: Bilirubin [Mass/Vol] 0.4 mg/dL 0.0 - 1.2 [facility] Work Phone: Calcium [Mass/Vol] 9.4 mg/dL 8.6 - 10.3 [facility] Work Phone: Chloride [Moles/Vol] 98 mmol/L 98 - 107 [facility] Work Phone: CO2 [Moles/Vol] 29 mmol/L 21 - 32 [facility] Work Phone: Creatinine [Mass/Vol] 0.88 mg/dL See Below [facility] Work Phone: Comment on above: Reference Range: 0.5 0 - 1.05 Glucose [Mass/Vol] 142 mg/dL above high threshold 74 - 99 [facility] Work Phone: Potassium [Moles/Vol] 4.1 mmol/L 3.5 - 5.3 [facility] Work Phone: Protein [Mass/Vol] 7.8 g/dL 6.4 - 8.2 [facility] Work Phone: Sodium [Moles/Vol] 136 mmol/L 136 - 145 [facility] Work Phone: Urea nitrogen [Mass/Vol] 19 mg/dL 6 - 23 [facility] Work Phone: Laboratory - Coagulationon 0 3-23-2022 INR Coag (PPP) [Relative time] 1.2 {INR} above high threshold 0.9 - 1.1 [facility] Work Phone: PT Coag (PPP) [Time] 13.7 s above high threshold 9.8 - 13.4 [facility] Work Phone: Comment on above: Note new reference patricio chicas as of 04/06/2021 at 10:00am. No Panel Informationon 07-28 [email or web address] 1: [email or web address]?RetrieveTestByD ateTime?FmqqmnlSA=[id number]&Date=28-07-2021& Time=13%3a26%3a48%3a00 &TestType=ECG&Site=10& OutputType=PDF&Ext=PDF [facility] Work Phone: Electronic ventricul ar pacemaker [facility] Work Phone: Abnormal [facility] Work Phone: [phone] [facility] Work Phone: [phone] [facility] Work Phone: [phone] [facility] Work Phone: 10 1 [facility] Work Phone: [phone] [facility] Work Phone: -[phone] 1 [facility] Work Phone: [phone] [facility] Work Phone: [phone] [facility] Work Phone: [phone] [facility] Work Phone: 65 1 [facility] Work Phone: [phone] 1 [facility] Work Phone: 70 {mL/min/1.73m2} >90 [facility] munity [facility]asc [facility] Work Phone: Comment on above: CALCULATIONS OF GALILEA MATED GFR ARE PERFORMED USING THE 2020 CKD-EPI STUDY REFIT EQUATION WITHOUT THE RACE VARIABLE FOR THE IDMS-TRACEABLE CREATININE METHODS.https://jasn.asnjournals.org/content/early//ASN .5487113658 Urinalysison 07-28-2021 Color (U) YELLOW See Below [facility] Work Phone: Comment on above: Reference Range: STR AW,YELLOW Glucose Ql (U) Negative NEGATIVE [facility] Work Phone: Ketones Ql (U) Negative NEGATIVE [facility] Work Phone: Leukocyte esterase Test strip Ql (U) SMALL (1+) Abnormal NEGATIVE [facility] Work Phone: pH (U) 5.0 [pH] 5.0 - 8.0 [facility] Work Phone: Protein (U) [Mass/Vol] Negative NEGATIVE [facility] Work Phone: RBC (U) [#/Vol] Negative NEGATIVE [facility] Work Phone: Specific gravity (U) [Rel density] 1.013 1 See Below [facility] Work Phone: Comment on above: Reference Range: 1.0 05 - 1.035 Urinalysis Negative NEGATIVE [facility] Work Phone: Urinalysis <2.0 0.0 - 1.9 [facility] Work Phone: Urinalysis CLEAR CLEAR [facility] Work Phone: Urinalysis, Microscopicon Urinalysis, Microscopic 1+ [facility] Work Phone: Urinalysis, Microscopic 1 {/HPF} 0-5 [facility] Work Phone: Blood Pressure Cuff Sizeon 0 06-30-2021 Tobacco use status CPHS b) No JU-Jbdicesefx-Pb lakhwinder [address] [place] Work Phone: Blood Pressure Cuff Size Adult PE-Fwxgcgndht-Hz lakhwinder [address] [place] Work Phone: INFLUENZA A/B, COVID 2019 PC R,SYMPTOMATICon 04-17-2021 Date and time of symptom onset [id number] 1 [facility] Work Phone: INFLUENZA A/B, COVID 2019 [...] make patient management decisions.Fact sheet for providers: https://www.fda.gov/media/526834/downloadFact sheet for patients: https://www.fda.gov/media/627153/downloadThis test has received FDA Emergency Use Authorization (EUA) and has been verified by [facility] ([facility]). This test is only authorized for the duration of time that circumstances exist to justify the authorization of the emergency use of in vitro diagnostic tests for the detection of SARS-CoV-2 virus and/or diagnosis of COVID-19 infection under section 564(b)(1) of the Act, 21 U.S.C. 360bbb-3(b)(1), unless the authorization is terminated or revoked sooner. [facility] is certified under CLIA-88 as qualified to perform high complexity testing. Testing is performed in the [facility] laboratories located at [address] [place] [address]. Reference Range: Not Detected Respiratory virus testing is performed routinely by PCR for Influenza A/B and RSV. If Influenza and RSV PCR are negative, testing for parainfluenza 1,2,3 viruses and adenovirus is routinely performed for oncology inpatients and intensive care unit patients at [facility] and is available on request on other patients by calling Laboratory Client Services at [phone] Not Detected results do not preclude Influenza [...] by the Microbiology Laboratory, Department of Pathology, [facility], [place], [place]. It has not been cleared or [...] inpatients and intensive care unit patients at [facility] and is available on request on other patients by calling Laboratory Client Services at [phone]. Not Detected results do not preclude Influenza [...] / Tomosynthesison 04-08-2021 MG Breast Screening Normal -[facility] Work Phone: MG Breast Screening [...] 13-18 <7.5 7-12 <8.0 0- 6 7.5-8.5 [employer]. Diabetes Care 33(S1), May 2009. IO UA (nonautomated w/o micr oscopy)on 03-18-2021 Protein (U) [Mass/Vol] Negative [facility] Work Phone: IO UA (nonautomated w/o microscopy) Normal (0.2-1.0 mg/dl) [facility] Work Phone: IO UA (nonautomated w/o microscopy) Negative [facility] Work Phone: IO UA (nonautomated w/o microscopy) 5.0 1 [facility] Work Phone: IO UA (nonautomated w/o microscopy) 1.000 1 [facility] Work Phone: IO UA (nonautomated w/o microscopy) Clear [facility] Work Phone: IO UA (nonautomated w/o microscopy) Yellow -[facility] Work Phone: Laboratory - Chemistry and C hemistry - challengeon 03-18-2021 Anion gap [Moles/Vol] 13 mmol/L 10 - 20 [facility] Work Phone: Calcium [Mass/Vol] 9.4 mg/dL 8.6 - 10.6 [facility] Work Phone: Chloride [Moles/Vol] 102 mmol/L 98 - 107 [facility] Work Phone: CO2 [Moles/Vol] 29 mmol/L 21 - 32 [facility] Work Phone: Creatinine [Mass/Vol] 0.92 mg/dL See Below -[facility] Work Phone: Comment on above: Reference Range: 0.5 0 - 1.05 Glucose [Mass/Vol] 150 mg/dL above high threshold 74 - 99 [facility] Work Phone: Potassium [Moles/Vol] 4.0 mmol/L 3.5 - 5.3 [facility] Work Phone: Sodium [Moles/Vol] 140 mmol/L 136 - 145 [facility] Work Phone: Urea nitrogen [Mass/Vol] 17 mg/dL 6 - 23 [facility] Work Phone: No Panel Informationon 03-18 73 {mL/min/1.73m2} >60 [facility] Work Phone: Comment on above: CALCULATIONS OF GALILEA MATED GFR ARE PERFORMED USING THE MDRD STUDY EQUATION FOR THE IDMS-TRACEABLE CREATININE METHODS. CLIN CHEM 2007;53:[id number] 60 {mL/min/1.73m2} Abnormal >60 [facility] Work Phone: No Panel Informationon 01-21 Please click on the link to view the study images Normal [facility] Work Phone: Tobacco Screening.on Fall risk assessment a) No falls within the last year LB-Vvjwdwvwdf-Mw lakhwinder [address] [place] Work Phone: Tobacco use status CPHS b) No XX-Ucjnebjkgh-Pt lakhwinder [address] [place] Work Phone: Tobacco Screening.on Fall risk assessment a) No falls within the last year [facility] [place] Phone: Tobacco use status CPHS b) No [facility] Work Phone: Tobacco Screening.on Fall risk assessment b) One or more fall s in the last year [facility] Work Phone: Tobacco use status CPHS b) No [facility] Work Phone: IO UA (nonautomated w/o micr oscopy)on 11-17-2020 Protein (U) [Mass/Vol] Negative [facility] Work Phone: IO UA (nonautomated w/o microscopy) Normal [facility] [place] Phone[facility] IO UA (nonautomated w/o microscopy) Negative [facility] Work Phone: IO UA (nonautomated w/o microscopy) 6.0 1 [facility] Work Phone: IO UA (nonautomated w/o microscopy) 1.010 1 [facility] Work Phone: IO UA (nonautomated w/o microscopy) Clear [facility] Work Phone: IO UA (nonautomated w/o microscopy) Yellow [facility] Work Phone: Tobacco Screening.on 021 Fall risk assessment a) No falls within the last year -[facility] Work Phone: Tobacco use status [facility] b) No -[facility] Work Phone: Tobacco Screening.on 021 Tobacco use status [facility] b) No [facility] Work Phone: Laboratory - Chemistry and C hemistry - challengeon 09-23-2020 Anion gap [Moles/Vol] 12 mmol/L 10 - 20 QK-Uhfpraactj-Qw lakhwinder [address] [place] Work Phone: Calcium [Mass/Vol] 9.5 mg/dL 8.6 - 10.6 MP-Car diology-Me lakhwinder [address] [place] Work Phone: Chloride [Moles/Vol] 103 mmol/L 98 - 107 MP-C ardiology-Me lakhwinder 140 [place] Work Phone: CO2 [Moles/Vol] 28 mmol/L 21 - 32 MP-Cardio logy-Me lakhwinder [address] [place] Work Phone: Creatinine [Mass/Vol] 0.78 mg/dL See Below MH-Zadglinlnu-Ee lakhwinder [address] [place] Work Phone: Comment on above: Reference Range: 0.5 0 - 1.05 Glucose [Mass/Vol] 130 mg/dL above high threshold 74 - 99 JI-Yrrepntune-Bc lakhwinder 140 [place] Work Phone: Potassium [Moles/Vol] 4.1 mmol/L 3.5 - 5.3 ZK-Wuqnnukjqt-Fj lakhwinder [address] [place] Work Phone: Sodium [Moles/Vol] 139 mmol/L 136 - 145 MP-[facility] diology-Me lakhwinder [address] [place] Work Phone: Urea nitrogen [Mass/Vol] 21 mg/dL 6 - 23 KP-Cxspnemafv-Ef lakhwinder 140 [place] Work Phone: No Panel Informationon 09-23 >60 >60 [facility]Cardiology- Me lakhwinder 140 [place] Work Phone: Comment on above: CALCULATIONS OF GALILEA MATED GFR ARE PERFORMED USING THE MDRD STUDY EQUATION FOR THE IDMS-TRACEABLE CREATININE METHODS. CLIN CHEM 2007;53:766-72 Tobacco Screening.on 021 Fall risk assessment a) No falls within the last year BV-Yqllutjwtu-Rz rma Work Phone: Tobacco Screening. b) No [facility]Pa rma Work Phone: Laboratory - Chemistry and C hemistry - challengeon 09-08-2020 Urea nitrogen [Mass/Vol] 25.0 mg/dL Normal OW-Oiyxmtiewn-Ox rma Work Phone: No Panel Informationon 09-08 [...] dosing. 26 mg/dL above high threshold 10-20 EJ-Qbmqttervq-Nv rma Work Phone: 4.3 mmol/L Normal 3.5-5.1 [facility] Pa [facility] Work Phone: 9.2 mg/dL Normal 8.5-10.5 [facility] Work Phone: 31.2 mmol/L Normal 21.0-32.0 [facility]Pa [facility] Work Phone: 1.0 mg/dL Normal 0.6-1.0 [facility] Work Phone: 137 mmol/L Normal 135-145 [facility] Work Phone: 98 mmol/L below low threshold 100-109 BY-Ituvjogevk-Xj rma Work Phone: 159 mg/dL above high threshold 72-100 WF-Gccotktaum-Eu rma Work Phone: Comment on above: Venipuncture should occur prior to sulfasalazine administration due to the potential for falsely depressed results. Venipuncture should occur prior to sulfapyridine administration due to the potential falsely elevated results.Baseline assay values before administration of sulfasalazine and sulfapyridine therapy would not be affected. Radiologyon 09-08-2020 XR Chest PA and Lateral Normal TV-Amojemgsno-Yi rma Work Phone: Falls Risk Screeningon 09-03 Fall risk assessment a) No falls within the last year HF-Xwiccdogkh-Zk rma Work Phone: Hemoglobin A1Con 04-13-2020 HbA1c (Bld) [Mass fraction] 134 {MG/DL} [facility] Work Phone: HbA1c (Bld) [Mass fraction] 6.3 % [facility] Work Phone: Comment on above: Diagnosis of Diabete s-Adults Non-Diabetic: < or = 5.6% Increased risk for developing diabetes: 5.7-6.4% Diagnostic of diabetes: > or = 6.5%. Monitoring of Diabetes Age (y) Therapeutic Goal (%) Adults: >18 <7.0 Pediatrics: 13-18 <7.5 7-12 <8.0 0- 6 7.5-8.5 [place] [employer]. Diabetes Care 33(S1), May 2009. Lipid Panelon 04-13-2020 Cholesterol [Mass/Vol] 196 mg/dL 0 - 199 [facility] Work Phone: Comment on above: . AGE [...] guidelines reference: NCEP ATPIII Guidelines, OSCAR 2001, 258:7416-97. Venipuncture immediately after or during the administration of Metamizole may lead to falsely low results. Testing should be performed immediately prior to Metamizole dosing. Cholesterol in HDL [Mass/Vol] 69.2 mg/dL [employer] Work Phone: Comment on above: . AGE VERY LOW LOW N ORMAL HIGH 0-19 Y < 35 < 40 40-45 ---- 20- 24 Y ---- < 40 >45 ---- >24 Y ---- < 40 40-60 >60. Cholesterol in LDL [Mass/Vol] 86 mg/dL 0 - 99 [employer] Work Phone: Comment on above: . NEAR BORD AGE MARRY RABLE OPTIMAL HIGH HIGH VERY HIGH 0-19 Y 0 - 109 --- 110-129 >/= 130 ---- 20-24 Y 0 - 119 --- 120-159 >/= 160 ---- >24 Y 0 - 99 100-129 130-159 160-189 >/=190. Cholesterol non HDL [Mass/Vol] 127 mg/dL [employer] Work Phone: Comment on above: AGE DESIRABLE BORDER LINE HIGH HIGH VERY HIGH 0-19 Y 0 - 119 120 - 144 >/= 145 >/= 160 20-24 Y 0 - 149 150 - 189 >/= 190 ---- >24 Y 30 MG/DL ABOVE LDL CHOLESTEROL GOAL. Cholesterol.total/Ch olesterol in HDL [Mass ratio] 2.8 {ratio} [facility] Work Phone: Comment on above: REF VALUESDESIRABLE < 3.4HIGH RISK > 5.0 Triglyceride [Mass/Vol] 204 mg/dL above high threshold 0 - 149 [facility] Work Phone: Comment on above: . AGE [...] mg/dL above high threshold 0 - 40 [facility] Work Phone: Metabolic Panelon 04-13-2020 ALP [Catalytic activity/Vol] 84 U/L 33 - 136 [facility] Work Phone: Anion gap [Moles/Vol] 14 mmol/L 10 - 20 [facility] Work Phone: Bilirubin [Mass/Vol] 0.4 mg/dL 0.0 - 1.2 [facility] Work Phone: Calcium [Mass/Vol] 9.7 mg/dL 8.6 - 10.6 -[facility] Work Phone: Chloride [Moles/Vol] 103 mmol/L 98 - 107 -[facility] Work Phone: CO2 [Moles/Vol] 24 mmol/L 21 - 32 -[facility] Work Phone: Creatinine [Mass/Vol] 0.72 mg/dL See Below -[facility] Work Phone: Comment on above: Reference Range: 0.5 0 - 1.05 Glucose [Mass/Vol] 138 mg/dL above high threshold 74 - 99 -[facility] Work Phone: Potassium [Moles/Vol] 4.4 mmol/L 3.5 - 5.3 -[facility] Work Phone: Protein [Mass/Vol] 7.3 g/dL 6.4 - 8.2 -[facility] Work Phone: Sodium [Moles/Vol] 137 mmol/L 136 - 145 [facility] Work Phone: Urea nitrogen [Mass/Vol] 17 mg/dL 6 - 23 -[facility] Work Phone: Otheron 04-13-2020 Albumin BCP dye [Mass/Vol] 4.2 g/dL 3.4 - 5.0 -[facility] Work Phone: ALT With P-5'-P [Catalytic activity/Vol] 17 U/L 7 - 45 [facility] Work Phone: Comment on above: Patients treated wit h Sulfasalazine may generate falsely decreased results for ALT. AST With P-5'-P [Catalytic activity/Vol] 18 U/L 9 - 39 -[facility] Work Phone: >60 >60 [facility] Work Phone: Comment on above: CALCULATIONS OF GALILEA MATED GFR ARE PERFORMED USING THE MDRD STUDY EQUATION FOR THE IDMS-TRACEABLE CREATININE METHODS. CLIN CHEM 2007;53:766-72 Coronavirus 2019 RNA by PCR, Symptomaticon 03-10-2020 EMPLOYED IN HEALTHCARE [facility] Work Phone: Comment on above: COVID CALLED TO CLAI RE, 03/11/2020 13:24 FIRST COVID NASAL SWAB TEST? Unknown [facility] Work Phone: Comment on above: COVID CALLED TO CLAI RE, 03/11/2020 13:24 ICU? No [facility] Work Phone: Comment on above: COVID CALLED TO CLAI RE, 03/11/2020 13:24 Patient was hospitalized because of this condition No [facility] Work Phone: Comment on above: COVID CALLED TO CLAI RE, 03/11/2020 13:24 status Unknown [facility] Work Phone: Comment on above: COVID CALLED TO CLAI RE, 03/11/2020 13:24 RESIDENT IN CONGREGATE CARE SETTING? No [facility] Work Phone: Comment on above: COVID CALLED TO CLAI RE, 03/11/2020 13:24 SYMPTOMATIC DEFINED BY CDC Yes [facility] Work Phone: Comment on above: COVID CALLED TO CLAI RE, 03/11/2020 13:24 When did you start to experience these symptoms [Date and time] [PhenX] [id number] [facility] Work Phone: Comment on above: COVID CALLED TO CLAI RE, 03/11/2020 13:24 Coronavirus 2019 RNA by PCR, Symptomatic DETECTED Abnormal See Below [facility] Work Phone: Comment on above: SOURCE: Nasal, [...] make patient management decisions.Fact sheet for providers: https://www.fda.gov/media/112633/downloadFact sheet for patients: https://www.fda.gov/media/898157/downloadThis test has received FDA Emergency Use Authorization (EUA) and has been verified by [facility] ([facility]). This test is only authorized for the duration of time that circumstances exist to justify the authorization of the emergency use of in vitro diagnostic tests for the detection of SARS-CoV-2 virus and/or diagnosis of COVID-19 infection under section 564(b)(1) of the Act, 21 U.S.C. 360bbb-3(b)(1), unless the authorization is terminated or revoked sooner. [facility] is certified under CLIA-88 as qualified to perform high complexity testing. Testing is performed in the [facility] laboratories located at [address] [place] [address].COVID CALLED TO PATO, 03/11/2020 13:24 COVID CALLED TO ABISAI QUACH, 03/11/2020 13:24 Metabolic Panelon 10-15-2019 Glucose [Mass/Vol] 115 mg/dL above high threshold 74 - 99 [facility] Work Phone: Glucose [Mass/Vol] 131 mg/dL above high threshold 74 - 99 [facility] Work Phone: Otheron 10-15-2019 Name KAITLYN MUÑOZ Pathologist: GURDEEP BLUMate of Procedure: 10/15/2019Date Received: 10/15/2019Date Reported 10/16/2019Submitting Physician: Zak López MDLocation: Other External # FINAL DIAGNOSISLEFT WRIST, GANGLION CYST, EXCISION:-- GANGLION CYST. Electronically Signed Out By PAO PHAM MD/Bharati the signature on this report, the individual or group listed as making theFinal Interpretation/Diagnos is certifies that they have reviewed this case. Microscopic Description:All slides are examined microscopically and the diagnosis is stated above.Clinical History:Ganglion of left forearmExcision ganglion left wristSpecimens Submitted As:A: GANGLION CYST LEFT WRIST Gross Description:Received in formalin, labeled with the patient's name and hospital number andganglion cyst left wrist, is a single irregular fragment of white fibroustissue measuring 1.4 x 0.7 x 0.6 cm. The specimen is submitted in [facility] in [facility]/10/14 [facility] Work Phone: Otheron 10-12-2019 NOT DETECTED See Below -[facility] 160 Work Phone: Comment on above: SOURCE: [...] this test method. Fact sheet for providers: https://www.fda.gov/media/987317/downloadFact sheet for patients: https://www.fda.gov/media/386334/downloadThis test has been validated by the damper worker but [facility] independent review of this validation is pending. This test has been verified by [facility] ([facility]). This test is only authorized for the duration of time that circumstances exist to justify the authorization of the emergency use of in vitro diagnostic tests for the detection of SARS-CoV-2 virus and/or diagnosis of COVID-19 infection under section 564(b)(1) of the Act, 21 U.S.C. 360bbb-3(b)(1), unless the authorization is terminated or revoked sooner. [facility] is certified under CLIA-88 as qualified to perform high complexity testing. Testing is performed in the [facility] laboratories located at [address] [place] [address]. Hematologyon 07-04-2019 Hematocrit (Bld) [Volume fraction] 44.6 % See Below [facility] Work Phone: Comment on above: Reference Range: 36. 0 - 46.0 Ordering Provider: Marcus JORDAN 17509 Hemoglobin (Bld) [Mass/Vol] 14.5 g/dL See Below [facility] Work Phone: Comment on above: Reference Range: 12. 0 - 16.0 Ordering Provider: Marcus JORDAN 39778 MCV (RBC) [Entitic vol] 91 fL 80 - 100 -[facility] Work Phone: Comment on above: Ordering Provider: Marcus VAZQUEZAT 67816 Platelets (Bld) [#/Vol] 294 {x10E9/L} 150 - 450 [facility] Work Phone: Comment on above: Ordering Provider: Marcus VAZQUEZAT 60263 RBC (Bld) [#/Vol] 4.91 {x10E12/L} See Below -[facility] Work Phone: Comment on above: Reference Range: 4.0 0 - 5.20 Ordering Provider: Marcus VAZQUEZAT 55735 WBC (Bld) [#/Vol] 0.0 {/100_WBC} 0.0 - 0.0 [facility] Work Phone: Comment on above: Ordering Provider: Marcus VAZQUEZAT 04701 WBC (Bld) [#/Vol] 11.2 {x10E9/L} 4.4 - 11.3 [facility] Work Phone: Comment on above: Ordering Provider: Marcus JORDAN 60232 Metabolic Panelon 07-04-2019 ALP [Catalytic activity/Vol] 74 U/L 33 - 136 [facility] Work Phone: Comment on above: Ordering Provider: Marcus VAZQUEZAT 18622 Anion gap [Moles/Vol] 12 mmol/L 10 - 20 [facility] Work Phone: Comment on above: Ordering Provider: T HOMAS MANDAT 89461 Bilirubin [Mass/Vol] 0.6 mg/dL 0.0 - 1.2 [facility] Work Phone: Comment on above: Ordering Provider: T HOMAS MANDAT 13219 Calcium [Mass/Vol] 9.4 mg/dL 8.6 - 10.3 [facility] Work Phone: Comment on above: Ordering Provider: T HOMAS MANDAT 91426 Chloride [Moles/Vol] 100 mmol/L 98 - 107 [facility] Work Phone: Comment on above: Ordering Provider: T HOMAS MANDAT 23571 CO2 [Moles/Vol] 29 mmol/L 21 - 32 [facility] Work Phone: Comment on above: Ordering Provider: T HOMAS MANDAT 15943 Creatinine [Mass/Vol] 0.70 mg/dL See Below [facility] Work Phone: Comment on above: Reference Range: 0.5 0 - 1.05 Ordering Provider: T HOMAS MANDAT 48761 Glucose [Mass/Vol] 112 mg/dL above high threshold 74 - 99 [facility] Work Phone: Comment on above: Ordering Provider: T HOMAS MANDAT 71696 Potassium [Moles/Vol] 4.4 mmol/L 3.5 - 5.3 [facility] Work Phone: Comment on above: Ordering Provider: T HOMAS MANDAT 69489 Protein [Mass/Vol] 6.8 g/dL 6.4 - 8.2 [facility] Work Phone: Comment on above: Ordering Provider: T HOMAS MANDAT 17538 Sodium [Moles/Vol] 137 mmol/L 136 - 145 [facility] Work Phone: Comment on above: Ordering Provider: T HOMAS MANDAT 56298 Urea nitrogen [Mass/Vol] 21 mg/dL 6 - 23 -[facility] Work Phone: Comment on above: Ordering Provider: Marcus JORDAN 05035 Otheron 07-04-2019 Albumin BCP dye [Mass/Vol] 3.7 g/dL 3.4 - 5.0 -[facility] Work Phone: Comment on above: Ordering Provider: Marcus VAZQUEZAT 51027 ALT With P-5'-P [Catalytic activity/Vol] 40 U/L 7 - 45 [facility] Work Phone: Comment on above: Patients treated wit h Sulfasalazine may generate falsely decreased results for ALT. Ordering Provider: Marcus VAZQUEZAT 04048 AST With P-5'-P [Catalytic activity/Vol] 24 U/L 9 - 39 -[facility] Work Phone: Comment on above: Ordering Provider: Marcus JORDAN 11238 Erythrocyte distribution width (RBC) [Ratio] 14.1 % See Below [facility] Work Phone: Comment on above: Reference Range: 11. 5 - 14.5 Ordering Provider: Marcus JORDAN 42632 MCHC (RBC) [Mass/Vol] 32.5 g/dL See Below [facility] Work Phone: Comment on above: Reference Range: 32. 0 - 36.0 Ordering Provider: Marcus JORDAN 25099 >60 >60 [facility] Work Phone: Comment on above: CALCULATIONS OF GALILEA MATED GFR ARE PERFORMED USING THE MDRD STUDY EQUATION FOR THE IDMS-TRACEABLE CREATININE METHODS. CLIN CHEM 2007;53:766-72 Ordering Provider: Marcus JORDAN 43013 Hematologyon 07-03-2019 Hematocrit (Bld) [Volume fraction] 42.7 % See Below [facility] Work Phone: Comment on above: Reference Range: 36. 0 - 46.0 Ordering Provider: Marcus JORDAN 66416 Hemoglobin (Bld) [Mass/Vol] 14.1 g/dL See Below [facility] Work Phone: Comment on above: Reference Range: 12. 0 - 16.0 Ordering Provider: Marcus JORDAN 19125 MCV (RBC) [Entitic vol] 91 fL 80 - 100 [facility] Work Phone: Comment on above: Ordering Provider: Marcus VAZQUEZAT 93232 Platelets (Bld) [#/Vol] 260 {x10E9/L} 150 - 450 [facility] Work Phone: Comment on above: Ordering Provider: Marcus VAZQUEZAT 74698 RBC (Bld) [#/Vol] 4.71 {x10E12/L} See Below [facility] Work Phone: Comment on above: Reference Range: 4.0 0 - 5.20 Ordering Provider: Marcus VAZQUEZAT 21649 WBC (Bld) [#/Vol] 0.0 {/100_WBC} 0.0 - 0.0 [facility] Work Phone: Comment on above: Ordering Provider: Marcus VAZQUEZAT 19831 WBC (Bld) [#/Vol] 13.4 {x10E9/L} above high threshold 4.4 - 11.3 [facility] Work Phone: Comment on above: Ordering Provider: Marcus VAZQUEZAT 33057 Metabolic Panelon 07-03-2019 ALP [Catalytic activity/Vol] 66 U/L 33 - 136 [facility] Work Phone: Comment on above: Ordering Provider: Marcus VAZQUEZAT 52406 Anion gap [Moles/Vol] 11 mmol/L 10 - 20 [facility] Work Phone: Comment on above: Ordering Provider: Marcus VAZQUEZAT 74037 Bilirubin [Mass/Vol] 0.7 mg/dL 0.0 - 1.2 [facility] Work Phone: Comment on above: Ordering Provider: T HOMAS MANDAT 59618 Calcium [Mass/Vol] 9.3 mg/dL 8.6 - 10.3 [facility] Work Phone: Comment on above: Ordering Provider: T HOMAS MANDAT 37082 Chloride [Moles/Vol] 103 mmol/L 98 - 107 [facility] Work Phone: Comment on above: Ordering Provider: T HOMAS MANDAT 85545 CO2 [Moles/Vol] 29 mmol/L 21 - 32 [facility] Work Phone: Comment on above: Ordering Provider: T HOMAS MANDAT 90044 Creatinine [Mass/Vol] 0.71 mg/dL See Below [facility] Work Phone: Comment on above: Reference Range: 0.5 0 - 1.05 Ordering Provider: T HOMAS MANDAT 38912 Glucose [Mass/Vol] 105 mg/dL above high threshold 74 - 99 [facility] Work Phone: Comment on above: Ordering Provider: T HOMAS MANDAT 69320 Potassium [Moles/Vol] 3.9 mmol/L 3.5 - 5.3 [facility] Work Phone: Comment on above: Ordering Provider: T HOMAS MANDAT 20717 Protein [Mass/Vol] 6.8 g/dL 6.4 - 8.2 [facility] Work Phone: Comment on above: Ordering Provider: T HOMAS MANDAT 66253 Sodium [Moles/Vol] 139 mmol/L 136 - 145 [facility] Work Phone: Comment on above: Ordering Provider: T HOMAS MANDAT 36257 Urea nitrogen [Mass/Vol] 19 mg/dL 6 - 23 [facility] Work Phone: Comment on above: Ordering Provider: T HOMAS MANDAT 86781 Otheron 07-03-2019 XR Chest 2 views Interpreted by: ARIELLE MARTEL07/03/19 13:51MRN: [id number] Name: PAU MUÑOZ STUDY:TH CHEST 2 VIEW [...] signed by: ARIELLE MARTEL 07/03/19 13:51 Normal -[facility] Work Phone: Comment on above: Ordering Provider: T SHERLYN VAZQUEZAT 30729 Albumin BCP dye [Mass/Vol] 3.7 g/dL 3.4 - 5.0 [facility] Work Phone: Comment on above: Ordering Provider: Marcus HOMADarya MANDAT 21697 ALT With P-5'-P [Catalytic activity/Vol] 42 U/L 7 - 45 [facility] Work Phone: Comment on above: Patients treated wit h Sulfasalazine may generate falsely decreased results for ALT. Ordering Provider: T HOMAS MANDAT 63156 AST With P-5'-P [Catalytic activity/Vol] 28 U/L 9 - 39 [facility] Work Phone: Comment on above: Ordering Provider: Marcus HOMAS MANDAT 22357 Erythrocyte distribution width (RBC) [Ratio] 14.0 % See Below [facility] Work Phone: Comment on above: Reference Range: 11. 5 - 14.5 Ordering Provider: T HOMAS MANDAT 36620 MCHC (RBC) [Mass/Vol] 33.0 g/dL See Below [facility] Work Phone: Comment on above: Reference Range: 32. 0 - 36.0 Ordering Provider: Marcus JORDAN 34770 >60 >60 [facility] Work Phone: Comment on above: Ordering Provider: Marcus JORDAN 15480 CALCULATIONS OF GALILEA MATED GFR ARE PERFORMED USING THE MDRD STUDY EQUATION FOR THE IDMS-TRACEABLE CREATININE METHODS. CLIN CHEM 2007;53:766-72 Vancomycin Level, Troughon 0 07-03-2019 Vancomycin trough [Mass/Vol] 15.1 ug/mL 5.0 - 20.0 [facility] Work Phone: Comment on above: Vancomycin levels sh ould be interpreted in conjunction with the dose, disease being treated, vancomycin SARAH, time of draw (trough concentrations should be obtained just before the next dose at steady-state), and other clinical information. Trough concentrations of 15-20 ug/mL are desired for severe infections. Ref.: Am J Health-Syst Pharm 66: 83-98, 2009. Ordering Provider: Marcus JORDAN 50162 Complete Blood Count + Diffe rentialon 07-02-2019 Basophils (Bld) [#/Vol] 0.03 {x10E9/L} See Below [facility] Work Phone: Comment on above: Reference Range: 0.0 0 - 0.10 Ordering Provider: Marcus JORDAN 55060 Basophils/100 WBC (Bld) 0.2 % 0.0 - 2.0 [facility] Work Phone: Comment on above: Ordering Provider: Marcus JORDAN 38565 Eosinophils (Bld) [#/Vol] 0.01 {x10E9/L} See Below [facility] Work Phone: Comment on above: Reference Range: 0.0 0 - 0.70 Ordering Provider: Marcus VAZQUEZAT 29265 Eosinophils/100 WBC (Bld) 0.1 % 0.0 - 6.0 [facility] Work Phone: Comment on above: Ordering Provider: Marcus PLATA MANDAT 74112 Erythrocyte distribution width (RBC) [Ratio] 14.6 % above high threshold See Below [facility] Work Phone: Comment on above: Reference Range: 11. 5 - 14.5 Ordering Provider: Marcus PLATA MANDAT 64054 Hematocrit (Bld) [Volume fraction] 41.9 % See Below [facility] Work Phone: Comment on above: Reference Range: 36. 0 - 46.0 Ordering Provider: Marcus GUERREROS MANDAT 72051 Hemoglobin (Bld) [Mass/Vol] 13.6 g/dL See Below [facility] Work Phone: Comment on above: Reference Range: 12. 0 - 16.0 Ordering Provider: Marcus GUERREROS MANDAT 08942 Lymphocytes (Bld) [#/Vol] 2.90 {x10E9/L} See Below [facility] Work Phone: Comment on above: Reference Range: 1.2 0 - 4.80 Ordering Provider: Marcus PLATA MANDAT 46612 Lymphocytes/100 WBC (Bld) 21.5 % See Below [facility] Work Phone: Comment on above: Reference Range: 13. 0 - 44.0 Ordering Provider: Marcus GUERREROS MANDAT 94989 MCHC (RBC) [Mass/Vol] 32.5 g/dL See Below [facility] Work Phone: Comment on above: Reference Range: 32. 0 - 36.0 Ordering Provider: Marcus GUERREROS MANDAT 99112 MCV (RBC) [Entitic vol] 91 fL 80 - 100 [facility] Work Phone: Comment on above: Ordering Provider: Marcus GUERREROS MANDAT 53308 Monocytes (Bld) [#/Vol] 1.55 {x10E9/L} above high threshold See Below [facility] Work Phone: Comment on above: Reference Range: 0.1 0 - 1.00 Ordering Provider: Marcus VAZQUEZAT 04981 Monocytes/100 WBC (Bld) 11.5 % 2.0 - 10.0 [facility] Work Phone: Comment on above: Ordering Provider: Marcus VAZQUEZAT 02348 Neutrophils/100 WBC (Bld) 64.1 % See Below [facility] Work Phone: Comment on above: Reference Range: 40. 0 - 80.0 Ordering Provider: Marcus VAZQUEZAT 96149 Platelets (Bld) [#/Vol] 264 {x10E9/L} 150 - 450 [facility] Work Phone: Comment on above: Ordering Provider: Marcus VAZQUEZAT 14810 RBC (Bld) [#/Vol] 4.60 {x10E12/L} See Below [facility] Work Phone: Comment on above: Reference Range: 4.0 0 - 5.20 Ordering Provider: Marcus VAZQUEZAT 57512 WBC (Bld) [#/Vol] 0.0 {/100_WBC} 0.0 - 0.0 [facility] Work Phone: Comment on above: Ordering Provider: Marcus VAZQUEZAT 79606 WBC (Bld) [#/Vol] 13.5 {x10E9/L} above high threshold 4.4 - 11.3 [facility] Work Phone: Comment on above: Ordering Provider: Marcus VAZQUEZAT 05518 Complete Blood Count + Differential 2.6 % above high threshold 0.0 - 0.9 [facility] Work Phone: Comment on above: Immature Granulocyte Count (IG) includes promyelocytes, myelocytes and metamyelocytes but does not include bands. Percent differential counts (%) should be interpreted in the context of the absolute cell counts (cells/L). Ordering Provider: Marcus PLATA MANDAT 79613 Complete Blood Count + Differential 8.66 {x10E9/L} above high threshold See Below [facility] Work Phone: Comment on above: Reference Range: 1.2 0 - 7.70 Ordering Provider: Marcus VAZQUEZAT 43255 Metabolic Panelon 07-02-2019 Anion gap [Moles/Vol] 14 mmol/L 10 - 20 [facility] Work Phone: Comment on above: Ordering Provider: T HOMAS MANDAT 94346 Calcium [Mass/Vol] 9.5 mg/dL 8.6 - 10.3 [facility] Work Phone: Comment on above: Ordering Provider: Marcus HOMAS MANDAT 66528 Chloride [Moles/Vol] 101 mmol/L 98 - 107 [facility] Work Phone: Comment on above: Ordering Provider: T CESARS MANDAT 56870 CO2 [Moles/Vol] 29 mmol/L 21 - 32 [facility] Work Phone: Comment on above: Ordering Provider: Marcus HOMAS MANDAT 08304 Creatinine [Mass/Vol] 0.75 mg/dL See Below [facility] Work Phone: Comment on above: Reference Range: 0.5 0 - 1.05 Ordering Provider: Marcus PLATA MANDAT 07283 Glucose [Mass/Vol] 94 mg/dL 74 - 99 [facility] Work Phone: Comment on above: Ordering Provider: Marcus HOMAS MANDAT 04785 Potassium [Moles/Vol] 3.7 mmol/L 3.5 - 5.3 [facility] Work Phone: Comment on above: Ordering Provider: Marcus HOMAS MANDAT 18950 Sodium [Moles/Vol] 140 mmol/L 136 - 145 [facility] Work Phone: Comment on above: Ordering Provider: Marcus HOMAS MANDAT 92996 Urea nitrogen [Mass/Vol] 20 mg/dL 6 - 23 [facility] Work Phone: Comment on above: Ordering Provider: T HOMAS MANDAT 75123 Otheron 07-02-2019 >60 >60 [facility] Work Phone: Comment on above: Ordering Provider: Marcus JORDAN 19654 CALCULATIONS OF GALILEA MATED GFR ARE PERFORMED USING THE MDRD STUDY EQUATION FOR THE IDMS-TRACEABLE CREATININE METHODS. CLIN CHEM 2007;53:766-72 Vancomycin Level, Randomon 0 07-02-2019 Vancomycin [Mass/Vol] 13.8 ug/mL [facility] Work Phone: Comment on above: .Therapeutic Ranges: Peak: All ages: 30.0-40.0 ug/mL. Trough: Age <18y: 5.0-10.0 ug/mL. Age >/= 18y: 5.0-20.0 ug/mL. Vancomycin trough concentrations drawn immediately prior to the next dose at steady-state are preferred for monitoring patients treated with vancomycin. Ref.: Am J Health-Syst Pharm 66: 83-98, 2009. Ordering Provider: Marcus JORDAN 13925 Cardiacon 07-01-2019 Natriuretic peptide B (Bld) [Mass/Vol] 129 pg/mL above high threshold 0 - 99 [facility] Work Phone: Comment on above: . <100 pg/mL - Heart failure [id number] pg/mL - Intermediate probability of acute heart. failure exacerbation. Correlate with clinical. context and patient history. >=300 pg/mL - Heart Failure likely. Correlate with clinical. context and patient history.BNP testing is performed using different testing methodology at [facility] than at other [facility]. Direct result comparisons should only be made within the same method. Ordering Provider: Marcus JORDAN 11170 Hematologyon 07-01-2019 Hematocrit (Bld) [Volume fraction] 38.5 % See Below [facility] Work Phone: Comment on above: Reference Range: 36. 0 - 46.0 Ordering Provider: Marcus JORDAN 83138 Hemoglobin (Bld) [Mass/Vol] 12.3 g/dL See Below [facility] Work Phone: Comment on above: Reference Range: 12. 0 - 16.0 Ordering Provider: Marcus HOMAS MANDAT 93470 MCV (RBC) [Entitic vol] 92 fL 80 - 100 [facility] Work Phone: Comment on above: Ordering Provider: Marcus HOMAS MANDAT 80212 Platelets (Bld) [#/Vol] 264 {x10E9/L} 150 - 450 [facility] Work Phone: Comment on above: Ordering Provider: Marcus HOMAS MANDAT 83334 RBC (Bld) [#/Vol] 4.17 {x10E12/L} See Below [facility] Work Phone: Comment on above: Reference Range: 4.0 0 - 5.20 Ordering Provider: Marcus HOMAS MANDAT 28876 WBC (Bld) [#/Vol] 18.5 {x10E9/L} above high threshold 4.4 - 11.3 [facility] Work Phone: Comment on above: Ordering Provider: Marcus HOMAS MANDAT 73599 WBC (Bld) [#/Vol] 0.0 {/100_WBC} 0.0 - 0.0 [facility] Work Phone: Comment on above: Ordering Provider: Marcus HOMAS MANDAT 21028 Metabolic Panelon 07-01-2019 ALP [Catalytic activity/Vol] 63 U/L 33 - 136 [facility] Work Phone: Comment on above: Ordering Provider: Marcus HOMAS MANDAT 62901 Anion gap [Moles/Vol] 13 mmol/L 10 - 20 [facility] Work Phone: Comment on above: Ordering Provider: Marcus HOMAS MANDAT 15466 Bilirubin [Mass/Vol] 0.5 mg/dL 0.0 - 1.2 [facility] Work Phone: Comment on above: Ordering Provider: Marcus HOMAS MANDAT 45673 Calcium [Mass/Vol] 9.3 mg/dL 8.6 - 10.3 -[facility] Work Phone: Comment on above: Ordering Provider: T HOMAS MANDAT 24740 Chloride [Moles/Vol] 104 mmol/L 98 - 107 -[facility] Work Phone: Comment on above: Ordering Provider: T HOMAS MANDAT 12386 CO2 [Moles/Vol] 27 mmol/L 21 - 32 [facility] Work Phone: Comment on above: Ordering Provider: T HOMAS MANDAT 95285 Creatinine [Mass/Vol] 0.74 mg/dL See Below [facility] Work Phone: Comment on above: Reference Range: 0.5 0 - 1.05 Ordering Provider: T HOMAS MANDAT 96192 Glucose [Mass/Vol] 129 mg/dL above high threshold 74 - 99 [facility] Work Phone: Comment on above: Ordering Provider: T HOMAS MANDAT 80342 Potassium [Moles/Vol] 4.1 mmol/L 3.5 - 5.3 [facility] Work Phone: Comment on above: Ordering Provider: T HOMAS MANDAT 44234 Protein [Mass/Vol] 6.3 g/dL below low threshold 6.4 - 8.2 [facility] Work Phone: Comment on above: Ordering Provider: T HOMAS MANDAT 12385 Sodium [Moles/Vol] 140 mmol/L 136 - 145 [facility] Work Phone: Comment on above: Ordering Provider: T HOMAS MANDAT 93220 Urea nitrogen [Mass/Vol] 21 mg/dL 6 - 23 [facility] Work Phone: Comment on above: Ordering Provider: Macrus HOMAS MANDAT 53789 Otheron 07-01-2019 XR Chest 2 views Interpreted by: VY DEE07/01/19 11:48MRN: [id number] Name: PAU MUÑOZ STUDY:TH CHEST 2 VIEW [...] silhouette is mildlyprominent, similar to prior studies. Vtey-pf-zanjwgen discogenicdegenerative changes are seen throughout the thoracic spine. IMPRESSION:Diffuse interstitial prominence and left basilar airspaceconsolidation, as described above. Clinical correlation and continuedfollow-up until clearing is recommended.Electronic ally signed by: VY DEE 07/01/19 11:48 Normal [facility] Work Phone: Comment on above: Ordering Provider: T HOMAS MANDAT 27200 Albumin BCP dye [Mass/Vol] 3.6 g/dL 3.4 - 5.0 [facility] Work Phone: Comment on above: Ordering Provider: T HOMAS MANDAT 13912 ALT With P-5'-P [Catalytic activity/Vol] 23 U/L 7 - 45 [facility] Work Phone: Comment on above: Patients treated wit h Sulfasalazine may generate falsely decreased results for ALT. Ordering Provider: T HOMAS MANDAT 92469 AST With P-5'-P [Catalytic activity/Vol] 23 U/L 9 - 39 [facility] Work Phone: Comment on above: Ordering Provider: T HOMAS MANDAT 39884 Erythrocyte distribution width (RBC) [Ratio] 14.7 % above high threshold See Below [facility] Work Phone: Comment on above: Reference Range: 11. 5 - 14.5 Ordering Provider: T HOMAS MANDAT 85106 MCHC (RBC) [Mass/Vol] 31.9 g/dL below low threshold See Below [facility] Work Phone: Comment on above: Reference Range: 32. 0 - 36.0 Ordering Provider: Marcus SHERLYN NIKKI 09625 >60 >60 [facility] Work Phone: Comment on above: Ordering Provider: Marcus SHERLYN NIKKI 23519 CALCULATIONS OF GALILEA MATED GFR ARE PERFORMED USING THE MDRD STUDY EQUATION FOR THE IDMS-TRACEABLE CREATININE METHODS. CLIN CHEM 2007;53:766-72 Blood Gason 06-30-2019 HCO3 (Bld) [Moles/Vol] 26.5 mmol/L above high threshold See Below [facility] Work Phone: Comment on above: Reference Range: 22. 0 - 26.0 Ordering Provider: Marcus SHERLYN NIKKI 22314 Oxygen (Bld) [Partial pressure] 55 {mmHg} below low threshold 85 - 95 [facility] Work Phone: Comment on above: Ordering Provider: Marcus SHERLYN VAZQUEZKATALINA 09095 Cardiacon 06-30-2019 Natriuretic peptide B (Bld) [Mass/Vol] 217 pg/mL above high threshold 0 - 99 [facility] Work Phone: Comment on above: . <100 pg/mL - Heart failure [id number] pg/mL - Intermediate probability of acute heart. failure exacerbation. Correlate with clinical. context and patient history. >=300 pg/mL - Heart Failure likely. Correlate with clinical. context and patient history.BNP testing is performed using different testing methodology at [facility] than at other [facility]. Direct result comparisons should only be made within the same method. Complete Blood Count + Diffe rentialon 06-30-2019 Basophils (Bld) [#/Vol] 0.04 {x10E9/L} See Below [facility] Work Phone: Comment on above: Reference Range: 0.0 0 - 0.10 Basophils/100 WBC (Bld) 0.2 % 0.0 - 2.0 [facility]: Eosinophils (Bld) [#/Vol] 0.00 {x10E9/L} See Below [facility] Work Phone: Comment on above: Reference Range: 0.0 0 - 0.70 Eosinophils/100 WBC (Bld) 0.0 % 0.0 - 6.0 -[facility] Work Phone: Erythrocyte distribution width (RBC) [Ratio] 15.0 % above high threshold See Below [facility] Work Phone: Comment on above: Reference Range: 11. 5 - 14.5 Hematocrit (Bld) [Volume fraction] 40.5 % See Below [facility] Work Phone: Comment on above: Reference Range: 36. 0 - 46.0 Hemoglobin (Bld) [Mass/Vol] 13.1 g/dL See Below [facility] Work Phone: Comment on above: Reference Range: 12. 0 - 16.0 Lymphocytes (Bld) [#/Vol] 2.44 {x10E9/L} See Below [facility] Work Phone: Comment on above: Reference Range: 1.2 0 - 4.80 Lymphocytes/100 WBC (Bld) 9.2 % See Below [facility] Work Phone: Comment on above: Reference Range: 13. 0 - 44.0 MCHC (RBC) [Mass/Vol] 32.3 g/dL See Below [facility] Work Phone: Comment on above: Reference Range: 32. 0 - 36.0 MCV (RBC) [Entitic vol] 92 fL 80 - 100 -[facility] Work Phone: Monocytes (Bld) [#/Vol] 2.16 {x10E9/L} above high threshold See Below [facility] Work Phone: Comment on above: Reference Range: 0.1 0 - 1.00 Monocytes/100 WBC (Bld) 8.1 % 2.0 - 10.0 [facility] Work Phone: Neutrophils/100 WBC (Bld) 80.5 % See Below [facility] Work Phone: Comment on above: Reference Range: 40. 0 - 80.0 Platelets (Bld) [#/Vol] 265 {x10E9/L} 150 - 450 -[facility] Work Phone: RBC (Bld) [#/Vol] 4.40 {x10E12/L} See Below [facility] Work Phone: Comment on above: Reference Range: 4.0 0 - 5.20 WBC (Bld) [#/Vol] 26.6 {x10E9/L} above high threshold 4.4 - 11.3 [facility] Work Phone: WBC (Bld) [#/Vol] 0.0 {/100_WBC} 0.0 - 0.0 [facility] Work Phone: Complete Blood Count + Differential 21.47 {x10E9/L} above high threshold See Below [facility] Work Phone: Comment on above: Reference Range: 1.2 0 - 7.70 Complete Blood Count + Differential 2.0 % above high threshold 0.0 - 0.9 [facility] Work Phone: Comment on above: Immature Granulocyte Count (IG) includes promyelocytes, myelocytes and metamyelocytes but does not include bands. Percent differential counts (%) should be interpreted in the context of the absolute cell counts (cells/L). Hematologyon 06-30-2019 Hematocrit (Bld) [Volume fraction] 46.0 % See Below [facility] Work Phone: Comment on above: Reference Range: 36. 0 - 46.0 Ordering Provider: Marcus JORDAN 46073 Hemoglobin (Bld) [Mass/Vol] 15.6 g/dL See Below [facility] Work Phone: Comment on above: Reference Range: 12. 0 - 16.0 Ordering Provider: Marcus JORDAN 12010 pH (Bld) 7.43 [pH] above high threshold See Below [facility] Work Phone: Comment on above: Reference Range: 7.3 8 - 7.42 Ordering Provider: Marcus JORDAN 66739 Lactate, Levelon 06-30-2019 Lactate [Moles/Vol] 2.3 mmol/L above high threshold 0.4 - 2.0 [facility] Work Phone: Comment on above: Venipuncture immedia tely after or during the administration of Metamizole may lead to falsely low results. Testing should be performed immediately prior to Metamizole dosing. Ordering Provider: Marcus JORDAN 81794 Lactate [Moles/Vol] 3.0 mmol/L above high threshold 0.4 - 2.0 [facility] Work Phone: Comment on above: Venipuncture immedia tely after or during the administration of Metamizole may lead to falsely low results. Testing should be performed immediately prior to Metamizole dosing. Magnesium, Serumon 0 Magnesium [Mass/Vol] 1.96 mg/dL See Below [facility] Work Phone: Comment on above: Reference Range: 1.6 0 - 2.40 Magnesium [Mass/Vol] Canceled [facility] Work Phone: Comment on above: TEST MAGNESIUM WAS C ANCELLED, 06/30/2019 06:37 ADD ON TO EXISTING SPECIMEN.. Metabolic Panelon 06-30-2019 Calcium.ionized (Bld) [Moles/Vol] 1.26 mmol/L See Below [facility] Work Phone: Comment on above: Reference Range: 1.1 0 - 1.33 Ordering Provider: T HOMAS MANDAT 87352 Chloride [Moles/Vol] 103 mmol/L 98 - 107 -[facility] Work Phone: Comment on above: Ordering Provider: T HOMAS MANDAT 31900 CO2 (Bld) [Partial pressure] 40 {mmHg} 38 - 42 [facility] Work Phone: Comment on above: Ordering Provider: T HOMAS MANDAT 59514 Glucose [Mass/Vol] 224 mg/dL above high threshold 74 - 99 [facility] Work Phone: Comment on above: Ordering Provider: T HOMAS MANDAT 79817 Lactate [Moles/Vol] 2.9 mmol/L above high threshold 0.4 - 2.0 [facility] Work Phone: Comment on above: Ordering Provider: T HOMAS MANDAT 33550 Potassium [Moles/Vol] 4.2 mmol/L 3.5 - 5.3 [facility] Work Phone: Comment on above: Ordering Provider: T HOMAS MANDAT 82270 Sodium [Moles/Vol] 135 mmol/L below low threshold 136 - 145 [facility] Work Phone: Comment on above: Ordering Provider: Marcus HOMAS MANDAT 72585 Anion gap [Moles/Vol] 14 mmol/L 10 - 20 -[facility] Work Phone: Calcium [Mass/Vol] 9.5 mg/dL 8.6 - 10.3 -[facility] Work Phone: Chloride [Moles/Vol] 105 mmol/L 98 - 107 -[facility] Work Phone: CO2 [Moles/Vol] 23 mmol/L 21 - 32 -[facility] Work Phone: Creatinine [Mass/Vol] 0.81 mg/dL See Below -[facility] Work Phone: Comment on above: Reference Range: 0.5 0 - 1.05 Glucose [Mass/Vol] 130 mg/dL above high threshold 74 - 99 -[facility] Work Phone: Potassium [Moles/Vol] 3.9 mmol/L 3.5 - 5.3 -[facility] Work Phone: Sodium [Moles/Vol] 138 mmol/L 136 - 145 -[facility] Work Phone: Urea nitrogen [Mass/Vol] 24 mg/dL above high threshold 6 - 23 -[facility] Work Phone: Otheron 06-30-2019 Interpreted by: VY DEE06/30/19 10:41MRN: [id number] Name: PAU MUÑOZ STUDY:CHEST 1 VIEW; 06/30/2019 [...] signed by: VY DEE 06/30/19 10:41 Normal -[facility] Work Phone: Ventricular-paced rhythm with frequent and consecutive premature ventricular complexes [facility] Work Phone: [phone] [facility] Work Phone: 48 1 -[facility] Work Phone: [phone] -[facility] Work Phone: 162 1 -[facility] Work Phone: 81 1 -[facility] Work Phone: [phone] 1 -[facility] Work Phone: [phone] -[facility] Work Phone: [email or web address] [email or web address] -[facility] Work Phone: [phone] -[facility] Work Phone: [phone] -[facility] Work Phone: [phone] 1 -[facility] Work Phone: [phone] 1 -[facility] Work Phone: Anion gap (Bld) [Moles/Vol] 10 mmol/L 10 - 25 -[facility] Work Phone: Comment on above: Ordering Provider: Marcus PLATA MANDAT 96795 Arterial patency Wrist artery --pre arterial puncture Weak Pulse [facility] Work Phone: Comment on above: Ordering Provider: T CESARS MANDAT 89979 Inhaled oxygen concentration 100 % 21 - 100 [facility] Work Phone: Comment on above: Ordering Provider: T HOMAS MANDAT 49049 2.0 mmol/L -2.0 - 3.0 [facility] Work Phone: Comment on above: Ordering Provider: T HOMAS MANDAT 93845 91 % below low threshold 94 - 100 [facility] Work Phone: Comment on above: Ordering Provider: T HOMAS MANDAT 23864 Non Rebreather [facility] Work Phone: Comment on above: Ordering Provider: Marcus CESARDarya JORDAN 49434 L Brachial [facility] Work Phone: Comment on above: Ordering Provider: Marcus JORDAN 81969 200 1 [facility] Work Phone: 10 1 -[facility] Work Phone: 78 1 -[facility] Work Phone: [phone] 1 -[facility] Work Phone: [phone] 1 -[facility] Work Phone: [phone] -[facility] Work Phone: [phone] [facility] Work Phone: [phone] -[facility] Work Phone: [phone] [facility] Work Phone: [email or web address] 1: [email or web address] [email or web address]?RetrieveTestByD ateTime?[email or web address] [facility] Work Phone: [phone] [facility] Work Phone: Ventricular-paced rhythm with occasional premature ventricular complexes -[facility] Work Phone: [phone] [facility] Work Phone: >60 >60 -[facility] Work Phone: Comment on above: CALCULATIONS OF GALILEA MATED GFR ARE PERFORMED USING THE MDRD STUDY EQUATION FOR THE IDMS-TRACEABLE CREATININE METHODS. CLIN CHEM 2007;53:766-72 Troponin I, Serumon 06-30-19 20 Troponin I.cardiac [Mass/Vol] 0.04 ng/mL Critically high See Below -[facility] Work Phone: Comment on above: Reference Range: [...] is performed using different testing methodology at [facility] than at [facility]. Direct result comparisons should only be made within the same method. Called- RB to kelsea bee, 06/30/2019 10:35 Called- RB to kelsea siu, 06/30/2019 10:35 Hematologyon 06-29-2019 Hematocrit (Bld) [Volume fraction] 39.7 % See Below [facility] Work Phone: Comment on above: Reference Range: 36. 0 - 46.0 Hemoglobin (Bld) [Mass/Vol] 12.7 g/dL See Below [facility] Work Phone: Comment on above: Reference Range: 12. 0 - 16.0 MCV (RBC) [Entitic vol] 91 fL 80 - 100 [facility] Work Phone: Platelets (Bld) [#/Vol] 239 {x10E9/L} 150 - 450 [facility] Work Phone: RBC (Bld) [#/Vol] 4.35 {x10E12/L} See Below [facility] Work Phone: Comment on above: Reference Range: 4.0 0 - 5.20 WBC (Bld) [#/Vol] 16.5 {x10E9/L} above high threshold 4.4 - 11.3 [facility] Work Phone: WBC (Bld) [#/Vol] 0.0 {/100_WBC} 0.0 - 0.0 [facility] Work Phone: Lactate, Levelon 06-29-2019 Lactate [Moles/Vol] 2.4 mmol/L above high threshold 0.4 - 2.0 [facility] Work Phone: Comment on above: Venipuncture immedia tely after or during the administration of Metamizole may lead to falsely low results. Testing should be performed immediately prior to Metamizole dosing. Ordering Provider: Marcus JORDAN 60073 Lactate [Moles/Vol] 3.9 mmol/L above high threshold 0.4 - 2.0 [facility] Work Phone: Comment on above: Venipuncture immedia tely after or during the administration of Metamizole may lead to falsely low results. Testing should be performed immediately prior to Metamizole dosing. Magnesium, Serumon 0 Magnesium [Mass/Vol] 1.87 mg/dL See Below [facility] Work Phone: Comment on above: Reference Range: 1.6 0 - 2.40 Metabolic Panelon 06-29-2019 Anion gap [Moles/Vol] 13 mmol/L 10 - 20 [facility] Work Phone: Calcium [Mass/Vol] 9.4 mg/dL 8.6 - 10.3 [facility] Work Phone: Chloride [Moles/Vol] 105 mmol/L 98 - 107 [facility] Work Phone: CO2 [Moles/Vol] 24 mmol/L 21 - 32 [facility] Work Phone: Creatinine [Mass/Vol] 0.73 mg/dL See Below [facility] Work Phone: Comment on above: Reference Range: 0.5 0 - 1.05 Glucose [Mass/Vol] 160 mg/dL above high threshold 74 - 99 [facility] Work Phone: Potassium [Moles/Vol] 4.0 mmol/L 3.5 - 5.3 [facility] Work Phone: Sodium [Moles/Vol] 138 mmol/L 136 - 145 [facility] Work Phone: Urea nitrogen [Mass/Vol] 14 mg/dL 6 - 23 [facility] Work Phone: Otheron 06-29-2019 XR Chest 2 views Interpreted by: ARIELLE MARTEL06/29/19 15:43MRN: [id number] Name: PAU MUÑOZ STUDY:TH CHEST 2 VIEW [...] signed by: ARIELLE MARTEL 06/29/19 15:43 Normal [facility] Work Phone: Comment on above: Ordering Provider: Marcus JORDAN 62618 RSV RNA ULISES+probe Ql (Unsp spec) NOT DETECTED See Below [facility] Work Phone: Comment on above: Reference Range: Not Detected Respiratory virus testing is performed routinely by PCR for Influenza A/B and RSV. Not Detected results do not preclude Influenza A/B or RSV infections since the adequacy of sample collection or low viral burden may impact the clinical sensitivity of this test method. NOT DETECTED See Below [facility] Work Phone: Comment on above: SOURCE: Nasal, [...] 14.6 % above high threshold See Below [facility] Work Phone: Comment on above: Reference Range: 11. 5 - 14.5 MCHC (RBC) [Mass/Vol] 32.0 g/dL See Below [facility] Work Phone: Comment on above: Reference Range: 32. 0 - 36.0 >60 >60 [facility] Work Phone: Comment on above: CALCULATIONS OF GALILEA MATED GFR ARE PERFORMED USING THE MDRD STUDY EQUATION FOR THE IDMS-TRACEABLE CREATININE METHODS. CLIN CHEM 2007;53:766-72 Hematologyon 05-21-2019 INR Coag (PPP) [Relative time] 1.0 {INR} 0.9 - 1.1 [facility] Work Phone: PT Coag (PPP) [Time] 11.4 {sec} 9.7 - 12.7 [facility] Work Phone: Otheron 05-21-2019 69 1 -[facility] Work Phone: [phone] 1 -[facility] Work Phone: [phone] -[facility] Work Phone: [phone] -[facility] Work Phone: [phone] -[facility] Work Phone: -[phone] [facility] Work Phone: [phone] [employer] Work Phone: [phone] [facility] Work Phone: [phone] [facility] Work Phone: [phone] [employer] Work Phone: [phone] [facility] Work Phone: Ventricular-paced rhythm with occasional premature ventricular complexes [facility] Work Phone: [email or web address]: [email or web address] eb.dll?RetrieveTestByD ateTime?[id number] [employer]ERK [facility] Work Phone: Albumin/Creatinine Ratio, Ur on 12-07-2017 Albumin/Creatinine Ratio 15.000 mg/g Normal [facility] Comment on above: Performed By: #### B MARCOS HANNAH ####[facility] [place] [address] 41060 Creatinine, Urine Random $ 32.5 mg/dL Normal [facility] Comment on above: Performed By: #### B DIANE HANNAH1C ####[facility] [place] [address] 04610 Ur Microalbumin, Random < 5.0 Normal [facility] Comment on above: Performed By: #### B MARCOS HANNAH ####[facility] [place] [address] 88790 Complete Blood Count w/diff $$on 12-07-2017 Basophils Auto #/vol (Bld) 0.1 10 /uL Normal 0.04-0.9 [facility] Comment on above: Performed By: #### B DIANE HANNAH1C ####[address] [address] Basophils/100 WBC Auto (Bld) 1 % Normal 0-1 [facility] Comment on above: Performed By: #### B BRIELLE, MARCOS ####[facility] [place] [address] 41190 Eosinophils Auto #/vol (Bld) 0.2 10 3/uL Normal 0.03-0.6 [facility] Comment on above: Performed By: #### Raymond HANNAH, MARCOS ####[address] [address] Eosinophils/100 WBC Auto (Bld) 3 % Normal 0-3 [facility] Comment on above: Performed By: #### Raymond HANNAH, MARCOS ####[address] [address] Erythrocyte distribution width Auto Ratio (RBC) 14.3 % Normal 11.5-14.5 [facility] Comment on above: Performed By: #### MARCOS Andrade MP ####[address] [address]662 Hematocrit Auto Volume Fraction (Bld) 43.1 % Normal 35-47 [facility] Comment on above: Performed By: #### Raymond HANNAH, MARCOS ####[facility] [place] [address] 84812 Hemoglobin mass conc (Bld) 14.2 g/dL Normal 12.0-16.0 [facility] Comment on above: Performed By: #### Raymond HANNAH, MARCOS ####[facility] [place] [address] 80420 Immature Gran# (Auto) 0.0 10 3/uL Normal [facility] Comment on above: Performed By: #### Raymond HANNAH, MARCOS ####[facility] [place] [address] 18068 Immature granulocytes #/vol (Bld) 0.3 % Normal 0.0-0.9 [facility] Comment on above: Performed By: #### B MARCOS HANNAH ####[facility] [place] [address] 61136 Lymphocytes Auto #/vol (Bld) 2.7 10 3/uL Normal 1-3.5 [facility] Comment on above: Performed By: #### B BRIELLE, HA1C ####[facility] [place] [address] 90918 Lymphocytes/100 WBC Auto (Bld) 36 % Normal 24-44 [facility] Comment on above: Performed By: #### B MARCOS HANNAH ####[facility] [place] [address] 85043 MCH Auto Entitic mass (RBC) 29.4 pg Normal 27-34 [facility] Comment on above: Performed By: #### MARCOS Andrade MP ####[address] [address] MCH Auto Entitic mass (RBC) 32.9 g/dL Low 33-37 [facility] Comment on above: Performed By: #### MARCOS Andrade MP ####[address] [address]9847 MCV Auto Entitic volume (RBC) 89.2 fL Normal 80-100 [facility] Comment on above: Performed By: #### MARCOS Andrade MP ####[address] 85690 Monocytes Auto #/vol (Bld) 0.7 10 3/uL Normal 0.04-0.9 [facility] Comment on above: Performed By: #### MARCOS Andrade MP ####[facility] [place] [address] 50104 Monocytes/100 WBC Auto (Bld) 10 % High 1-8 [facility] Comment on above: Performed By: #### Raymond HANNAH HAJune ####[facility] [place] [address] 44467 Neutrophils Auto #/vol (Bld) 3.8 10 3/uL Normal 1.8-7.0 [facility] Comment on above: Performed By: #### B MARCOS HANNAH ####[facility] [place] [address] 28266 Neutrophils/100 WBC Auto (Bld) 50 % Normal 42-76 [facility] Comment on above: Performed By: #### B BRIELEL, MARCOS ####[facility] [place] [address] 13643 Nucleated RBC/100 WBC Ratio (Bld) 0.0 % Normal 0.0-0.0 [facility] Comment on above: Performed By: #### B BRIELLE, MARCOS ####[address] [address] Platelet mean volume Auto Entitic volume (Bld) 10.6 fL High 7.4-10.4 [facility] Comment on above: Performed By: #### B MARCOS HANNAH ####[facility] [place] [address] 03933 Platelets Auto #/vol (Bld) 202 10 3/uL Normal 150-400 [facility] Comment on above: Performed By: #### B BRIELLE, MARCOS ####[facility] [place] [address] 77388 RBC Auto #/vol (Bld) 4.83 10 6/uL Normal 4.2-5.4 [facility] Comment on above: Performed By: #### B BRIELLE, HAJune ####[facility] [place] [address] 43546 WBC Auto #/vol (Bld) 7.5 10 3/uL Normal 4.0-11.0 [facility] Comment on above: Performed By: #### B BRIELLE, HA1C ####[facility] [place] [address] 22462 Comprehensive Metabolic Pane milton 12-07-2017 Albumin mass conc 4.1 g/dL Normal 3.4-5.0 [facility] Comment on above: Performed By: #### B MARCOS HANNAH ####[facility] [place] [address] ALP enzyme act/vol 69 U/L Normal 33-136 [facility] Comment on above: Result Comment: Plea se note new reference range as of September. Performed By: #### B MARCOS HANNAH ####[facility] [place] [address] 57536 ALT enzyme act/vol 18 U/L Normal 4-45 [facility] Comment on above: Result Comment: Plea se note new reference range as of September. Performed By: #### B MARCOS HANNAH ####[address] [address] Anion gap 3 molar conc 12.2 mmol/L Normal 10-20 [facility] Comment on above: Performed By: #### B MARCOS HANNAH ####[facility] [place] [address] 47089 AST enzyme act/vol 25 U/L Normal 9-39 [facility] Comment on above: Result Comment: Plea se note new reference range as of September. Performed By: #### B MARCOS HANNAH ####[facility] [place] [address] 59466 Bilirubin Ql (U) 0.5 mg/dL Normal 0.0-1.2 [facility] Comment on above: Performed By: #### MARCOS Andrade MP ####[facility] [place] [address] 96923 Calcium mass conc 9.6 mg/dL Normal 8.6-10.3 [facility] Comment on above: Result Comment: Plea se note new reference range as of September. Performed By: #### B MARCOS HANNAH ####[facility] [place] [address] Chloride molar conc 103 mmol/L Normal 98-107 [facility] Comment on above: Performed By: #### B MARCOS HANNAH ####[facility] [place] [address] [place] [address] CO2 molar conc 27 mmol/L Normal 21-32 [facility] Comment on above: Performed By: #### B MARCOS HANNAH ####[facility] [place] [address] 11899 Creatinine mass conc 0.81 mg/dL Normal 0.50-1.05 [facility] Comment on above: Result Comment: Chaya trevizo note new reference range as of September. Performed By: #### MARCOS Andrade MP ####[facility] [place] [address] GFR () >60 Normal [facility] Comment on above: Performed By: #### MARCOS Andrade MP ####[facility] [place] [address] 63814 GFR (Non ) >60 Normal [facility] Comment on above: Result Comment: eGFR Units of measure: mL/min/1.73 m 2 Performed By: #### MARCOS Andrade MP ####[facility] [place] [address] Glucose mass conc 103 mg/dL High 74-99 [facility] Comment on above: Performed By: #### MARCOS nAdrade MP ####[facility] [place] [address] 69465 Potassium molar conc 5.2 mmol/L Normal 3.5-5.3 [facility] Comment on above: Performed By: #### MARCOS Andrade MP ####[facility] [place] [address] 94394 Protein mass conc 7.2 g/dL Normal 6.4-8.2 [facility] Comment on above: Performed By: #### MARCOS Andrade MP ####[facility] [place] [address] Sodium molar conc 137 mmol/L Normal 136-145 [facility] Comment on above: Performed By: #### MARCOS Andrade MP ####[address] [place] [address] Urea nitrogen mass conc (Bld) 14 mg/dL Normal 6-23 [facility] Comment on above: Result Comment: Chaya trevizo note new reference range as of September. Performed By: #### B MARCOS HANNAH ####[address] [place] [address] Hemoglobin A1con 12-07-2017 Hemoglobin A1c/Hemoglobin.total mass fraction (Bld) 6.0 % Normal 4.4-6.3 [facility] Comment on above: Performed By: #### MARCOS Andrade MP ####[address] [place] [address] Thyroid Stimulating Hormoneo n 12-07-2017 Thyrotropin Qn 2.16 m[IU]/L Normal 0.44-3.98 [facility] Comment on above: Performed By: #### MARCOS Andrade MP ####[address] [place] [address] Vitamin Don 12-07-2017 Vitamin D Pending Normal [facility] Comment on above: Performed By: #### MARCOS Andrade MP ####[facility] [place] [address], [place] [address] Immunoelectrophoresis, Serum on 09-14-2017 Albumin mass conc 3.9 g/dL Normal 3.4-5.0 [facility] Comment on above: Performed By: #### B MP, HA1C ####[facility] [place] [address] Alpha 1 Globulin 0.3 g/dL Normal 0.2-0.6 [facility] Comment on above: Performed By: #### B BRIELLE, HA1C ####[facility] [place] [address] 33257 Alpha 2 Globulin 0.9 g/dL Normal 0.4-1.1 [facility] Comment on above: Performed By: #### B BRIELLE, HA1C ####[facility] [place] [address] 92110 Beta Globulin 1.1 g/dL Normal 0.5-1.2 [facility] Comment on above: Performed By: #### B BRIELLE, HA1C ####[facility] [place] [address] 56817 Gamma Globulin 1.4 g/dL Normal 0.5-1.4 [facility] Comment on above: Performed By: #### B BRIELLE, HA1C ####[facility] [place] [address] 95029 GAYLE Path Review HuiOQUENDO Normal [facility] Comment on above: Result Comment: By h er/his signature above, the Pathologistlisted as making the final interpretationcertifies that she/he has personally reviewedthis case. Performing Site: [facility] - [address] [place], [place] Performed By: #### B BRIELLE, HA1C ####[facility] [place] [address] 95698 Immunofixation Interpretation NORMAL Normal [facility] Comment on above: Result Comment: Perf orming Site: [facility] - [address] [place], [place] Performed By: #### B BRIELLE, HA1C ####[facility] [place] [address] [id number] Interpretation NORMAL Normal [facility] Comment on above: Performed By: #### B BRIELLE, HA1C ####[facility] [place] [address] [phone] Monoclonal Protein NONE DETECTED Normal [facility] Comment on above: Performed By: #### B BRIELLE, HA1C ####[facility] [place] [address] 61988 SPE Path Review R.OQUENDO Normal [facility] Comment on above: Result Comment: By h er/his signature above, the Pathologistlisted as making the final interpretationcertifies that she/he has personally reviewedthis case. Performing Site: [facility] - [address] [place], [place] Performed By: #### B BRIELLE, HA1C ####[facility] [place], [place] [id number] Mammo Screening Bilat CAD To yee 09-14-2017 Mammo Screening Bilat CAD [facility] Patient: PAU MUÑOZ [address] [facility] MR#: [id number] [place], [place] [address] : [address] Ori Salomon MD Dept: Diagnostic Imaging Loc: OPC DI REPORT Service Dt:09/14/17 Report#: [id number] Adm Dt: 09/14/17 Dis Dt: Comments: STUDY: 3D digital bilateral screening mammograms with CAD and tomosynthesis were obtained; 09/14/2017 2:05 pm ACCESSION NUMBER(S): [id number] ORDERING CLINICIAN: Ori Salomon INDICATION: Screening. COMPARISON: [...] by: Omkar Yin 09/14/2017 2:18 PM Normal [facility] Immunoglobulins, Quanton Immunoglobulin A 440 mg/dL Abnormal 70-400 [facility] Comment on above: Result Comment: MONO CLONAL PROTEINS MAY CAUSE FALSELY LOWRESULTS IN THIS ASSAY. SERUM PROTEINELECTROPHORESIS SHOULD BE DONE THEFIRST TEST TO EVALUATE MONOCLONAL GAMMOPATHY. Performed By: #### B DIANE HANNAH1C ####[facility] [place] [address] Immunoglobulin G 1340 mg/dL Normal 700-1600 [facility] Comment on above: Result Comment: MONO CLONAL PROTEINS MAY CAUSE FALSELY LOWRESULTS IN THIS ASSAY. SERUM PROTEINELECTROPHORESIS SHOULD BE DONE THEFIRST TEST TO EVALUATE MONOCLONAL GAMMOPATHY. Performed By: #### DIANE Andrade MP1C ####[id number] [place] [address] Immunoglobulin M 111 mg/dL Normal 40-230 [facility] Comment on above: Result Comment: MONO CLONAL PROTEINS MAY CAUSE FALSELY LOWRESULTS IN THIS ASSAY. SERUM PROTEINELECTROPHORESIS SHOULD BE DONE THEFIRST TEST TO EVALUATE MONOCLONAL GAMMOPATHY.Performing Site: [facility] - [address] [place] Performed By: #### B MARCOS HANNAH ####[facility] [place] [address] 61775 Complete Blood Count w/diff $$on 09-12-2017 Basophils Auto #/vol (Bld) 0.1 10 /uL Normal 0.04-0.9 [facility] Comment on above: Performed By: #### MARCOS Andrade MP ####[facility] [place] [address] Basophils/100 WBC Auto (Bld) 1 % Normal 0-1 [facility] Comment on above: Performed By: #### MARCOS Andrade MP ####[facility] [place] [address] 82151 Eosinophils Auto #/vol (Bld) 0.2 10 3/uL Normal 0.03-0.6 [facility] Comment on above: Performed By: #### MARCOS Andrade MP ####[address] [address] Eosinophils/100 WBC Auto (Bld) 3 % Normal 0-3 [facility] Comment on above: Performed By: #### MARCOS Andrade MP ####[facility] [place] [address] 90798 Erythrocyte distribution width Auto Ratio (RBC) 14.1 % Normal 11.5-14.5 [facility] Comment on above: Performed By: #### MARCOS Andrade MP ####[facility] [place] [address] 11086 Hematocrit Auto Volume Fraction (Bld) 44.1 % Normal 35-47 [facility] Comment on above: Performed By: #### MARCOS Andrade MP ####[facility] [place] [address] 00183 Hemoglobin mass conc (Bld) 14.3 g/dL Normal 12.0-16.0 [facility] Comment on above: Performed By: #### Rayomnd HANNAH, HAJune ####[facility] [place] [address] [place] [address] Immature Gran# (Auto) 0.0 10 3/uL Normal [facility] Comment on above: Performed By: #### MARCOS Andrade MP ####[facility] [place] [address] 94648 Immature granulocytes #/vol (Bld) 0.3 % Normal 0.0-0.9 [facility] Comment on above: Performed By: #### B BRIELLE, MARCOS ####[facility] [place] [address] 18936 Lymphocytes Auto #/vol (Bld) 2.3 10 3/uL Normal 1-3.5 [facility] Comment on above: Performed By: #### MARCOS Andrade MP ####[address] [address] Lymphocytes/100 WBC Auto (Bld) 29 % Normal 24-44 [facility] Comment on above: Performed By: #### MARCOS Andrade MP ####[address] [address] MCH Auto Entitic mass (RBC) 28.9 pg Normal 27-34 [facility] Comment on above: Performed By: #### MARCOS Andrade MP ####[address] [address] MCH Auto Entitic mass (RBC) 32.4 g/dL Low 33-37 [facility] Comment on above: Performed By: #### MARCOS Andrade MP ####[address] [address]39 MCV Auto Entitic volume (RBC) 89.3 fL Normal 80-100 [facility] Comment on above: Performed By: #### MARCOS Andrade MP ####[address] [address] Monocytes Auto #/vol (Bld) 0.8 10 3/uL Normal 0.04-0.9 [facility] Comment on above: Performed By: #### MARCOS Andrade MP ####[address] [address] Monocytes/100 WBC Auto (Bld) 9 % High 1-8 [facility] Comment on above: Performed By: #### B BRIELLE, HAJune ####[address] [address]48 Neutrophils Auto #/vol (Bld) 4.6 10 3/uL Normal 1.8-7.0 [facility] Comment on above: Performed By: #### B BRIELLE, HA1C ####[address] [address] Neutrophils/100 WBC Auto (Bld) 58 % Normal 42-76 [facility] Comment on above: Performed By: #### B BRIELLE, MARCOS ####[address] [address]83 Nucleated RBC/100 WBC Ratio (Bld) 0.0 % Normal 0.0-0.0 [facility] Comment on above: Performed By: #### B BRIELLE, HAJune ####[address] [address] Platelet mean volume Auto Entitic volume (Bld) 9.5 fL Normal 7.4-10.4 [facility] Comment on above: Performed By: #### B BRIELLE, HA1C ####[address] [address] Platelets Auto #/vol (Bld) 259 10 3/uL Normal 150-400 [facility] Comment on above: Performed By: #### B BRIELLE, HA1C ####[address] [address] RBC Auto #/vol (Bld) 4.94 10 6/uL Normal 4.2-5.4 [facility] Comment on above: Performed By: #### B BRIELLE, HA1C ####[address] [address] WBC Auto #/vol (Bld) 8.0 10 3/uL Normal 4.0-11.0 [facility] Comment on above: Performed By: #### B BRIELLE, MARCOS ####[facility] [place] [address] Comprehensive Metabolic Pane milton 09-12-2017 Albumin mass conc 3.7 g/dL Normal 3.4-5.0 [facility] Comment on above: Performed By: #### B BRIELLE, MARCOS ####[facility] [place] [address] 91101 ALP enzyme act/vol 84 U/L Normal 50-136 [facility] Comment on above: Performed By: #### B BRIELLE, MARCOS ####[facility] [place] [address] 11205 ALT enzyme act/vol 28 U/L Normal 12-78 [facility] Comment on above: Performed By: #### B BRIELLE, DIANE1C ####[facility] [place] [address] 83599 Anion gap 3 molar conc 15.5 mmol/L Normal [facility] Comment on above: Performed By: #### B BRIELLE, MARCOS ####[facility] [place] [address] 42383 AST enzyme act/vol 29 U/L Normal 15-37 [facility] Comment on above: Performed By: #### B BRIELLE, MARCOS ####[facility] [place] [address] 23877 Bilirubin Ql (U) 0.3 mg/dL Normal 0.2-1.0 [facility] Comment on above: Performed By: #### B BRIELLE, HAJune ####[facility] [place] [address] [place] [address] Calcium mass conc 9.3 mg/dL Normal 8.5-10.1 [facility] Comment on above: Performed By: #### B BRIELLE, HAJune ####[facility] [facility] [place] [address] Chloride molar conc 103 mmol/L Normal 98-107 [facility] Comment on above: Performed By: #### B BRIELLE, HA1C ####[facility] [place] [address] CO2 molar conc 25 mmol/L Normal 21-32 [facility] Comment on above: Performed By: #### B BRIELLE, HA1C ####[facility] [place] [address] 16277 Creatinine mass conc 0.7 mg/dL Normal 0.6-1.3 [facility] Comment on above: Performed By: #### B BRIELLE, HA1C ####[facility] [place] [address], [place] [address] GFR () >60 Normal [facility] Comment on above: Performed By: #### B BRIELLE, HAJune ####[facility] [place] [address], [place] [address] GFR (Non ) >60 Normal [facility] Comment on above: Result Comment: eGFR Units of measure: mL/min/1.73 m 2 Performed By: #### B BRIELLE, HA1C ####[facility] [place] [address] Glucose mass conc 105 mg/dL Normal 74-106 [facility] Comment on above: Performed By: #### B BRIELLE, HA1C ####[facility] [place] [address] 73285 Potassium molar conc 4.5 mmol/L Normal 3.5-5.1 [facility] Comment on above: Performed By: #### B BRIELLE, HA1C ####[facility] [place] [address] Protein mass conc 7.7 g/dL Normal 6.4-8.2 [facility] Comment on above: Performed By: #### Raymond HANNAH, MARCOS ####[facility] [place] [address] 55574 Sodium molar conc 139 mmol/L Normal 136-145 [facility] Comment on above: Performed By: #### B BRIELLE, MARCOS ####[facility] [place] [address] 63577 Urea nitrogen mass conc (Bld) 12 mg/dL Normal 7-18 [facility] Comment on above: Performed By: #### MARCOS Andrade MP ####[facility] [place] [address] 74910 Ferritinon 09-12-2017 Ferritin 67.7 ng/mL Normal 8.0-252.0 [facility] Comment on above: Performed By: #### MARCOS Andrade MP ####[facility] [place] [address] 53387 Immunoelectrophoresis, Serum on 09-12-2017 Protein mass conc 7.6 g/dL Normal 6.4-8.2 [facility] Comment on above: Result Comment: Zurdo soto Site: [facility] - [address] [id number] Performed By: #### Raymond HANNAH, MARCOS ####[facility] [place] [address] 35472 Iron Profileon 09-12-2017 % Iron Saturation 13 % Low 16-35 [facility] Comment on above: Performed By: #### MARCOS Andrade MP ####[facility] [place] [address] 68393 Iron mass conc 50 ug/dL Normal 50-170 [facility] Comment on above: Performed By: #### MARCOS Andrade MP ####[facility] [place] [address] 64345 Total Iron Binding Capacity 371 ug/dL Normal 250-450 [facility] Comment on above: Performed By: #### B MP, HA1C ####[facility] [place] [address] 86940 B-type Natriuretic Peptideon 06-25-2017 Natriuretic peptide B mass conc (Bld) 47.51 pg/mL Normal 0-100 [facility] Comment on above: Performed By: #### U R, PTINR, TROP, FLUNOW, BNP ####[facility] [place] [address] 99551 Complete Blood Count w/diff $$on 06-25-2017 Platelets Auto #/vol (Bld) Adequate Normal [facility] Comment on above: Performed By: #### C JAG, CMP12, LA ####[facility] [place] [address] 29763 Atypical Lymph 2 Normal [facility] Comment on above: Performed By: #### C JAG, CMP12, LA ####[facility] [place] [address] 55875 Band form neutrophils/100 WBC Manual cnt (Bld) 8 % Normal 0-8 [facility] Comment on above: Performed By: #### C JAG, CMP12, LA ####[facility] [place] [address] 63074 Eosinophils Auto #/vol (Bld) 0.2 10 3/uL Normal [facility] Comment on above: Performed By: #### C BC, CMP12, LA ####[facility] [place] [address] 25891 Eosinophils/100 WBC Auto (Bld) 3 % Normal 0-3 [facility] Comment on above: Performed By: #### C BC, CMP12, LA ####[facility] [place] [address] 58237 Lymphocytes Auto #/vol (Bld) 1.7 10 3/uL Normal [facility] Comment on above: Performed By: #### C JAG CMP12, LA ####[facility] [place] [address] 07411 Lymphocytes/100 WBC Auto (Bld) 23 % Low 24-44 [facility] Comment on above: Performed By: #### Ana RM CMP12, LA ####[address] [address] Monocytes Auto #/vol (Bld) 1.1 10 3/uL Normal [facility] Comment on above: Performed By: #### C JAG CMPNitin, LA ####[address] [address] Monocytes/100 WBC Auto (Bld) 15 % High 1-8 [facility] Comment on above: Performed By: #### Ana RM CMPNitin, [place] ####[address] [address] [address] Neutrophils Auto #/vol (Bld) 4.2 10 3/uL Normal [facility] Comment on above: Performed By: #### SHAINA GARDUNO, [place] ####[address] [address] Neutrophils/100 WBC Auto (Bld) 51 % Normal 42-76 [facility] Comment on above: Performed By: #### Ana RM CMP12, [place] ####[address] [address] Comprehensive Metabolic Pane milton 06-25-2017 Albumin mass conc 3.7 g/dL Normal 3.4-5.0 [facility] Comment on above: Performed By: #### Ana RM CMP12, [place] ####[address] [address] ALP enzyme act/vol 86 U/L Normal 50-136 [facility] Comment on above: Performed By: #### Ana RM CMP12, LA ####[facility] [place] [address] ALT enzyme act/vol 29 U/L Normal 12-78 [facility] Comment on above: Performed By: #### C BC, CMP12, LA ####[facility] [place] [address] Anion gap 3 molar conc 13.3 mmol/L Normal [facility] Comment on above: Performed By: #### C BC, CMP12, LA ####[facility] [place] [address] AST enzyme act/vol 36 U/L Normal 15-37 [facility] Comment on above: Performed By: #### C BC, CMP12, LA ####[facility] [place] [address] Bilirubin Ql (U) 0.4 mg/dL Normal 0.2-1.0 [facility] Comment on above: Performed By: #### C BC, CMP12, LA ####[facility] [place] [address] Calcium mass conc 8.8 mg/dL Normal 8.5-10.1 [facility] Comment on above: Performed By: #### C BC, CMP12, LA ####[facility] [place] [address] Chloride molar conc 103 mmol/L Normal 98-107 [facility] Comment on above: Performed By: #### C BC, CMP12, LA ####[facility] [place] [address] CO2 molar conc 26 mmol/L Normal 21-32 [facility] Comment on above: Performed By: #### C BC, CMP12, LA ####[facility] [place] [address] Creatinine mass conc 0.9 mg/dL Normal 0.6-1.3 [facility] Comment on above: Performed By: #### C SHAINA RM, SALLY ####[facility] [place] [address] GFR () >60 Normal [facility] Comment on above: Performed By: #### SHAINA GARDUNO, [place] ####[address] [address] GFR (Non ) >60 Normal [facility] Comment on above: Result Comment: eGFR Units of measure: mL/min/1.73 m 2 Performed By: #### C SHAINA RM, LA ####[address] [address] Glucose mass conc 124 mg/dL High 74-106 [facility] Comment on above: Performed By: #### SHAINA GARDUNO, LA ####[address] [address] Potassium molar conc 4.3 mmol/L Normal 3.5-5.1 [facility] Comment on above: Performed By: #### C SHAINA RM, LA ####[address] [address] Protein mass conc 7.8 g/dL Normal 6.4-8.2 [facility] Comment on above: Performed By: #### SHAINA GARDUNO, LA ####[address] [address] Sodium molar conc 138 mmol/L Normal 136-145 [facility] Comment on above: Performed By: #### SHAINA GARDUNO, LA ####[address] [address] Urea nitrogen mass conc (Bld) 16 mg/dL Normal 7-18 [facility] Comment on above: Performed By: #### C SHAINA RM, SALLY ####[facility] [place], [place] [address] Troponin Ion 06-25-2017 Troponin I.cardiac mass conc ng/mL Normal 0.00-0.045 [facility] Comment on above: Performed By: #### U R, PTINR, TROP, FLUNOW, BNP ####[facility] [place], [place] [id number] Chest Xray 2 views (PA Lat)o n 06-24-2017 Chest Xray 2 views (PA Lat) [facility] Patient: PAU MUÑOZ [address] [facility] MR#: [id number] [place], [place] [address] : [address] Heather Neff DO, Resident Dept: Diagnostic Imaging Loc: 1EDA DI REPORT Service Dt:06/24/17 Report#: [id number] Adm Dt: 06/24/17 Dis Dt: Comments: STUDY: CR Chest Xray 2 views (PA Lat); 06/24/2017 9:10 pm INDICATION: Fever. COMPARISON: Chest radiograph 05/06/2016 ACCESSION NUMBER(S): [id number] ORDERING CLINICIAN: Heather Neff FINDINGS: Redemonstrated midline [...] by: Marnie Robles 06/24/2017 9:21 PM Normal [facility] Complete Blood Count w/diff $$on 06-24-2017 Diff Type Manual Normal [facility] Comment on above: Performed By: #### C BC, CMP12, [place] ####[facility] [place] [address] Erythrocyte distribution width Auto Ratio (RBC) 14.5 % Normal 11.5-14.5 [facility] Comment on above: Performed By: #### C SHAINA RM LA ####[facility] [place] [address] Hematocrit Auto Volume Fraction (Bld) 44.0 % Normal 35-47 [facility] Comment on above: Performed By: #### SHAINA GARDUNO, [place] ####[facility] [place] [address] Hemoglobin mass conc (Bld) 14.6 g/dL Normal 12.0-16.0 [facility] Comment on above: Performed By: #### C SHAINA RM, LA ####[address] [address] MCH Auto Entitic mass (RBC) 29.6 pg Normal 27-34 [facility] Comment on above: Performed By: #### SHAINA GARDUNO, [place] ####[address] [address] MCH Auto Entitic mass (RBC) 33.2 g/dL Normal 33-37 [facility] Comment on above: Performed By: #### C SHAINA RM, LA ####[facility] [place] [address] MCV Auto Entitic volume (RBC) 89.1 fL Normal 80-100 [facility] Comment on above: Performed By: #### C SHAINA RM, LA ####[facility] [place] [address] Platelet mean volume Auto Entitic volume (Bld) 9.8 fL Normal 7.4-10.4 [facility] Comment on above: Performed By: #### Ana RM CMP12, [place] ####[facility] [place] [address] Platelets Auto #/vol (Bld) 203 10 3/uL Normal 150-400 [facility] Comment on above: Performed By: #### C MALU RM12, SALLY ####[facility] [place] [address] RBC Auto #/vol (Bld) 4.94 10 6/uL Normal 4.2-5.4 [facility] Comment on above: Performed By: #### C JAG CMP12, LA ####[facility] [place] [address] WBC Auto #/vol (Bld) 7.2 10 3/uL Normal 4.0-11.0 [facility] Comment on above: Performed By: #### Ana RM CMP12, SALLY ####[facility] [place] [address] ED Visit Summaryon 8 ED Visit Summary [facility] Patient: PAU MUÑOZ [address] [facility] MR#: [id number] [place], [place] [address] : 1950 [address] : Dept: Emergency Department Loc: 1EDA ER Physician Documentation Service Dt: 06/24/17 Report#: [id number] Adm Dt: 06/24/17 Dis Dt: 06/24/17 Patient [...] Total Critical Care Time (min): 0 Normal [facility] Influenza A/B Antigen Rapido n 06-24-2017 Influenza A/B Antigen Rapid ---- RUN DATE: 06/24/17 [facility] LAB LIVE PAGE 1 RUN TIME: 2200 Specimen Inquiry ---- PATIENT: PAU MUÑOZ ACCT: [id number] LOC: 1EDA U: [id number] AGE/SX: 67/F ROOM: RE06/24/[address]: Paul Muller MD : 1950 BED: DIS: STATUS: REG ER TLOC: ---- SPEC #: [id number] HOPE: 06/24/17 STATUS: COMP REQ #: [id number] RECD: 06/24/[address]: Heather Neff DO SOURCE: Nasopharyn ENTR: 06/24/[address] [facility] DR[facility] Sheldon MD ORDERED: Influenza A/B [...] the test. ---- END OF REPORT Normal [facility] Comment on above: Performed By: #### U R, PTINR, TROP, FLUNOW, BNP ####[address] [address] Lactic Acidon 06-24-2017 Lactate molar conc 1.5 mmol/L Normal 0.4-2.0 [facility] Comment on above: Performed By: #### C BC, CMP12, [place] ####[address] [address] Protime INRon 06-24-2017 INR Coag RelTime (PPP) 1.4 {INR} High 0.9-1.1 [facility] Comment on above: Result Comment: Chaya trevizo note new reference range OF 06/06/2017 Performed By: #### U R, PTINR, TROP, FLUNOW, BNP ####[address] [address] Protein mass conc 15.5 sec High 9.8-12.7 [facility] Comment on above: Result Comment: Chaya trevizo note new reference range OF 06/06/2017 Performed By: #### U R, PTINR, TROP, FLUNOW, BNP ####[address] [address] Urinalysison 06-24-2017 Bilirubin, Urine Negative Normal Negative [facility] Comment on above: Order Comment: Comme nt CVMS Performed By: #### U R, PTINR, TROP, FLUNOW, BNP ####[address] [address] Clarity Nom (U) Clear Normal [facility] Comment on above: Order Comment: Comme nt CVMS Performed By: #### U R, PTINR, TROP, FLUNOW, BNP ####[facility] [place] [address] Color Nom (U) Yellow Normal [facility] Comment on above: Order Comment: Comme nt CVMS Performed By: #### U R, PTINR, TROP, FLUNOW, BNP ####[facility] [place] [address] Epithelial Cells Occasional Normal 0-5 [facility] Comment on above: Order Comment: Comme nt CVMS Performed By: #### U R, PTINR, TROP, FLUNOW, BNP ####[facility] [place] [address] Glucose Ql (U) Negative Normal Negative [facility] Comment on above: Order Comment: Comme nt CVMS Performed By: #### U R, PTINR, TROP, FLUNOW, BNP ####[facility] [place] [address] Hemoglobin Test strip Ql (U) Negative Normal Negative [facility] Comment on above: Order Comment: Comme nt CVMS Performed By: #### U R, PTINR, TROP, FLUNOW, BNP ####[facility] [place] [address] Ketones Ql (U) Negative Normal Negative [facility] Comment on above: Order Comment: Comme nt CVMS Performed By: #### U R, PTINR, TROP, FLUNOW, BNP ####[facility] [place] [address] Leukocyte esterase Test strip Ql (U) Negative Normal Negative [facility] Comment on above: Order Comment: Comme nt CVMS Performed By: #### U R, PTINR, TROP, FLUNOW, BNP ####[facility] [place] [address] Mucus, Urine Rare Normal [facility] Comment on above: Order Comment: Comme nt CVMS Performed By: #### U R, PTINR, TROP, FLUNOW, BNP ####[facility] [place] [address] Nitrates, Urine Negative Normal Negative [facility] Comment on above: Order Comment: Comme nt CVMS Performed By: #### U R, PTINR, TROP, FLUNOW, BNP ####[facility] [place] [address] pH Test strip (U) 7.0 [pH] Normal 5.0-9.0 [facility] Comment on above: Order Comment: Comme nt CVMS Performed By: #### U R, PTINR, TROP, FLUNOW, BNP ####[facility] [place] [address] Protein, Urine Negative Normal Negative [facility] Comment on above: Order Comment: Comme nt CVMS Performed By: #### U R, PTINR, TROP, FLUNOW, BNP ####[facility] [place] [address] Specific [place], Urine 1.021 Normal 1.000-1.030 [facility] Comment on above: Order Comment: Comme nt CVMS Performed By: #### U R, PTINR, TROP, FLUNOW, BNP ####[facility] [place] [address] Urobilinogen, Urine Normal Normal <2.0 [facility] Comment on above: Order Comment: Comme nt CVMS Performed By: #### U R, PTINR, TROP, FLUNOW, BNP ####[facility] [place] [address] RBC, Urine 0 /HPF Normal 0-3 [facility] Comment on above: Order Comment: Comme nt CVMS Performed By: #### U R, PTINR, TROP, FLUNOW, BNP ####[facility] [place] [address] Hemoglobin A1con 06-19-2017 Hemoglobin A1c/Hemoglobin.total mass fraction (Bld) 5.6 % Normal 4.4-6.3 [facility] Comment on above: Performed By: #### H A1C, VITD ####[facility] [place] [address] Vitamin Don 06-19-2017 Vitamin D 12.76 ng/mL Normal [facility] Comment on above: Result Comment: Clas sification of 25 [place] Vitamin D status:Deficiency: <20 ng/mLInsufficiency/Moderate Deficiency: 20-30 ng/mLSufficiency/Optimal Level: 30-100 ng/mLToxicity: >100 ng/mL Performed By: #### H A1C, VITD ####[facility] [place] [address] Lexascan Myoview SPECT/Stres son 03-31-2017 Lexascan Myoview SPECT/Stress [facility] Patient: PAU MUÑOZ [address] [facility] MR#: [id number] [place], [place] [address] : [address] Timothy Palacio DO Dept: Diagnostic Imaging Loc: [id number] DI REPORT Service Dt:03/29/17 Report#: [id number] Adm Dt: 03/29/17 Dis Dt: Comments: STUDY: NM Lexascan Myoview SPECT/Stress; 03/29/2017 10:22 am INDICATION: SOB. COMPARISON: None. ACCESSION NUMBER(S): [id number] ORDERING CLINICIAN: Timothy Palacio TECHNIQUE: DIVISION OF [...] by: Felisha Perry 03/31/2017 12:49 PM Normal [facility] Echocardiogramon 03-29-2017 Echocardiogram [facility] , [address] [place] [address] and TRANSTHORACIC ECHOCARDIOGRAM REPORT Patient Name: PAU Quinones RAVEN Reading Physician: JAKE Perry MD Study Date: 03/29/2017 Referring Physician: Timothy Palacio MRN/PID: [id number] PCP: Patient Department Location: [facility] Outpatient Accession/Order#: [id number] Patient Location: [address] Date of : 1950 66 years Nurse: Gender: F Fashion Patternmaker: Nigel Rivera Admission Status: Outpatient CC Report to: JAKE Perry MD Height: 152.40 cm CC Report to: Weight: 83.91 kg CC Report to: BSA: 1.81 m2 Study Type: Echo Diagnosis/ICD: R06.02 - Shortness of breath Indication: Dyspnea Procedure/CPT: Echo Complete w/Full Doppler (98570) Patient History: BMI: Obese >30 Pertinent History: [...] at 9:34:56 AM Wall Scoring Final Normal [facility] EP Post Proc Progress Noteon 03-17-2017 EP Post Proc Progress Note [facility] Patient: PAU MUÑOZ [address] MR#: [id number] [place], [place] [address] : 1950 [address] : Dept: PDOC Loc: CATH EP Post Proc Progress Note Service Dt: 03/17/17 Report#: [id number] Adm Dt: 03/17/17 Dis Dt: - EP Progress Note (post-procedure) Procedure: Cardioversion Diagnosis: Atrial flutter Anesthesia: MAC Result: Successful cardioversion using 150 J synchronized biphasic shock Complications: none Normal [facility] History AND Physicalon 03-17 History AND Physical [facility] Patient: PAU MUÑOZ [address] MR#: [id number] [place], [place] [address] : 1950 [address] Dept: PDOC Loc: CATH History Physical Service Dt: 03/17/17 Report#: [id number] Adm Dt: 03/17/17 Dis Dt: History and [...] [employer] History of a VSD repair at [facility] - Social History Smoking Status: Never smoker [...] Changes noted below: Date/Time Attending Physician Normal [facility] Post-Anesthesia Care Noteon 03-17-2017 Post-Anesthesia Care Note [facility] Patient: PAU MUÑOZ [address] [facility] MR#: [id number] [place], [place] [address] : 1950 [address] Gloria: Dept: PDOC Loc: CATH Procedure Note Service Dt: 03/17/17 Report#: [id number] Adm Dt: 03/17/17 Dis Dt: 03/17/17 Anesthesia DC Evaluation - Discharge Evaluation Anesthesia Discharge Evaluation: Outpatient - Airway Airway: Patient with unassisted respiration(s) - Cardiovascular Cardiovascular: CV stable without support - Mental Status Mental Status: Awake and oriented X 3 - Pain Pain: Adequately controlled - Nausea/Vomiting Nausea/Vomiting: Absent - Post-Op Hydration Post-Op Hydration: Tolerating oral intake Normal [facility] Basic Metabolic Panel $$$on 01-02-2017 Anion gap 3 molar conc 14.4 mmol/L Normal [facility] Comment on above: Performed By: #### B MARCOS HANNAH ####[facility] [place] [address] Calcium mass conc 9.5 mg/dL Normal 8.5-10.1 [facility] Comment on above: Performed By: #### B MARCOS HANNAH ####[facility] [place] [address] Chloride molar conc 100 mmol/L Normal 98-107 [facility] Comment on above: Performed By: #### B MARCOS HANNAH ####[facility] [place] [address] CO2 molar conc 28 mmol/L Normal 21-32 [facility] Comment on above: Performed By: #### MARCOS Andrade MP ####[facility] [place] [address] Creatinine mass conc 0.9 mg/dL Normal 0.6-1.3 [facility] Comment on above: Performed By: #### B MARCOS HANNAH ####[facility] [place] [address] GFR () >60 Normal [facility] Comment on above: Performed By: #### MARCOS Andrade MP ####[facility] [place] [address] GFR (Non ) >60 Normal [facility] Comment on above: Result Comment: eGFR Units of measure: mL/min/1.73 m 2 Performed By: #### MARCOS Andrade MP ####[facility] [place] [address] Glucose mass conc 122 mg/dL High 74-106 [facility] Comment on above: Performed By: #### MARCOS Andrade MP ####[facility] [place] [address] Potassium molar conc 4.4 mmol/L Normal 3.5-5.1 [facility] Comment on above: Performed By: #### MARCOS Andrade MP ####[facility] [place] [address] Sodium molar conc 138 mmol/L Normal 136-145 [facility] Comment on above: Performed By: #### MARCOS Andrade MP ####[facility] [place] [address] Urea nitrogen mass conc (Bld) 12 mg/dL Normal 7-18 [facility] Comment on above: Performed By: #### Raymond HANNAH HAJune ####[address] [place] [address] Hemoglobin A1con 01-02-2017 Hemoglobin A1c/Hemoglobin.total mass fraction (Bld) 6.0 % Normal 4.4-6.3 [facility] Comment on above: Performed By: #### B MARCOS HANNAH ####[facility] [place] [address] EP Post Proc Progress Noteon 12-13-2016 EP Post Proc Progress Note [facility] Patient: PAU MUÑOZ MR#: [id number] [place], [place] [address] : 1950 Ord[address] Gloria: Dept: PDOC Loc: CATH EP Post Proc Progress Note Service Dt: 12/13/16 Report#: [id number] Adm Dt: 12/13/16 Dis Dt: - EP Progress Note (post-procedure) Procedure: Cardioversion Diagnosis: Atrial fibrillation Anesthesia: MAC Result: Successful cardioversion using 150 J synchronized biphasic shock Complications: none Normal [facility] History AND Physicalon 12-13 History AND Physical [facility] Patient: PAU MUÑOZ MR#: [id number] [place], [place] [address] : 1950 [address] : Dept: PDOC Loc: CATH History Physical Service Dt: 12/13/16 Report#: [id number] Adm Dt: 12/13/16 Dis Dt: History and [...] __ Changes noted below: Date/Time Attending Physician [facility] Vital Signs Date Time Vital Sign Value Performing Clinician Facility 01-28-2025 12:46-0400 Body height 152.4 cm Ronitko Squiresjoni DO Work Phone: [facility] 01-28-2025 12:46-0400 Body mass index (BMI) [Ratio] 36.72 kg/m2 Ronit Doan DO Work Phone: [facility] 01-28-2025 12:46-0400 Body weight 85.28 kg Ronitko Doan DO Work Phone: [facility] 01-28-2025 12:46-0400 Diastolic blood pressure 78 mm[Hg] Ronit Olimpia DO Work Phone: [facility] 01-28-2025 12:46-0400 Heart rate 99 /min Ronit Lopesdileepk DO Work Phone: [facility] 01-28-2025 12:46-0400 Respiratory rate 16 /min Ronit Lopesdileepjoni DO Work Phone: [facility] 01-28-2025 12:46-0400 Systolic blood pressure 130 mm[Hg] Ronit Squiresk DO Work Phone: [facility] 10-28-2024 13:57-0400 Body height 152.4 cm Ronit Squiresk DO Work Phone: [facility] 10-28-2024 13:57-0400 Body mass index (BMI) [Ratio] 37.77 kg/m2 Ronit Lopesyak DO Work Phone: [facility] 10-28-2024 13:57-0400 Body weight 87.73 kg Ronit Squiresk DO Work Phone: [facility] 10-28-2024 13:57-0400 Diastolic blood pressure 71 mm[Hg] Ronit Lopesyak DO Work Phone: [facility] 10-28-2024 13:57-0400 Heart rate 89 /min Ronit Squiresk DO Work Phone: [facility] 10-28-2024 13:57-0400 Respiratory rate 16 /min Ronit Squiresk DO Work Phone: [facility] 10-28-2024 13:57-0400 Systolic blood pressure 120 mm[Hg] Ronit Squiresk DO Work Phone: [facility] 09-11-2024 09:00-0400 Body height 152.4 cm Jaylon Kiser DO Work Phone: [facility] 09-11-2024 09:00-0400 Body mass index (BMI) [Ratio] 37.89 kg/m2 Jaylon Kiser DO Work Phone: [facility] 09-11-2024 09:00-0400 Body weight 88 kg Jaylon Kiser DO Work Phone: [facility] 09-11-2024 09:00-0400 Diastolic blood pressure 74 mm[Hg] Jaylon Kiser DO Work Phone: [facility] 09-11-2024 09:00-0400 Heart rate 92 /min Jaylon Kiser DO Work Phone: [facility] 09-11-2024 09:00-0400 SaO2% (BldA) [Mass fraction] 95 % Jaylon Kiser DO Work Phone: [facility] 09-11-2024 09:00-0400 Systolic blood pressure 128 mm[Hg] Jaylon Kiser DO Work Phone: [facility] 07-22-2024 13:25-0400 Body height 152.4 cm Ronit Doan DO Work Phone: [facility] 07-22-2024 13:25-0400 Diastolic blood pressure 75 mm[Hg] Ronit Doan DO Work Phone: [facility] 07-22-2024 13:25-0400 Heart rate 88 /min Ronit Doan DO Work Phone: [facility] 07-22-2024 13:25-0400 Respiratory rate 18 /min Ronit Doan DO Work Phone: [facility] 07-22-2024 13:25-0400 Systolic blood pressure 132 mm[Hg] Ronit Doan DO Work Phone: [facility] 07-17-2024 13:12-0400 Body temperature 97.1 [degF] Dr. Ronit Doan DO Work Phone: [facility] 07-17-2024 13:12-0400 Diastolic blood pressure 54 mm[Hg] Dr. Ronit Doan DO Work Phone: [facility] 07-17-2024 13:12-0400 Heart rate 60 /min Dr. Ronit Doan DO Work Phone: [facility] 07-17-2024 13:12-0400 Respiratory rate 16 /min Dr. Ronit Doan DO Work Phone: [facility] 07-17-2024 13:12-0400 SaO2% (BldA) [Mass fraction] 95 % Dr. Ronit Doan DO Work Phone: [facility] 07-17-2024 13:12-0400 Systolic blood pressure 116 mm[Hg] Dr. Ronit Doan DO Work Phone: [facility] 07-17-2024 13:00-0400 Inhaled oxygen flow rate 2 L/min Dr. Ronit Doan DO Work Phone: [facility] 07-17-2024 10:26-0400 Body height 152.[address] Ronit Doan DO Work Phone: [facility] 07-17-2024 10:26-0400 Body mass index (BMI) [Ratio] 37.8 kg/m2 Dr. Ronit Doan DO Work Phone: [facility] 07-17-2024 10:26-0400 Body weight [address] Ronit Daon DO Work Phone: [facility] 07-11-2024 09:21-0500 Body mass index (BMI) [Ratio] 37.9 kg/m2 Dr. Ronit Doan DO Work Phone: [facility] 07-11-2024 09:21-0500 Body temperature 97.6 [degF] Dr. Ronit Doan DO Work Phone: [facility] 07-11-2024 09:21-0500 Body weight 88.[address] Ronit Doan DO Work Phone: [facility] 07-11-2024 09:21-0500 Diastolic blood pressure 64 mm[Hg] Dr. Ronit Doan DO Work Phone: [facility] 07-11-2024 09:21-0500 Heart rate 72 /min Dr. Ronit Doan DO Work Phone: [facility] 07-11-2024 09:21-0500 Respiratory rate 18 /min Dr. Ronit Doan DO Work Phone: [facility] 07-11-2024 09:21-0500 SaO2% (BldA) [Mass fraction] 99 % Dr. Ronit Doan DO Work Phone: [facility] 07-11-2024 09:21-0500 Systolic blood pressure 144 mm[Hg] Dr. Ronit Doan DO Work Phone: [facility] 06-20-2024 10:15-0500 Body height 152.4 cm Ronit Doan DO Work Phone: [facility] 06-20-2024 10:15-0500 Body mass index (BMI) [Ratio] 37.89 kg/m2 Ronit Doan DO Work Phone: [facility] 06-20-2024 10:15-0500 Body weight 88 kg Ronit Doan DO Work Phone: [facility] 06-20-2024 10:15-0500 Diastolic blood pressure 71 mm[Hg] Ronit Doan DO Work Phone: [facility] 06-20-2024 10:15-0500 Heart rate 84 /min Ronit Doan DO Work Phone: [facility] 06-20-2024 10:15-0500 Respiratory rate 16 /min Ronit Doan DO Work Phone: [facility] 06-20-2024 10:15-0500 Systolic blood pressure 128 mm[Hg] Ronit Doan DO Work Phone: [facility] 05-24-2024 10:44-0500 Body height 152.4 cm Timothy Palacio DO Work Phone: [facility] 05-24-2024 10:44-0500 Body mass index (BMI) [Ratio] 37.69 kg/m2 Timothy Ramicone DO Work Phone: [facility] 05-24-2024 10:44-0500 Body weight 87.54 kg Timothy Ramicone DO Work Phone: [facility] 05-24-2024 10:44-0500 Diastolic blood pressure 66 mm[Hg] Timothy Ramicone DO Work Phone: [facility] 05-24-2024 10:44-0500 Heart rate 83 /min Timothy Cohnicone DO Work Phone: [facility] 05-24-2024 10:44-0500 SaO2% (BldA) [Mass fraction] 95 % Timothy Ramicone DO Work Phone: [facility] 05-24-2024 10:44-0500 Systolic blood pressure 132 mm[Hg] Timothy Cohnicone DO Work Phone: [facility] 04-23-2024 10:29-0500 Body height 152.4 cm Ronitko Lopesyak DO Work Phone: [facility] 04-23-2024 10:29-0500 Body mass index (BMI) [Ratio] 37.42 kg/m2 Ronit Mosesyak DO Work Phone: [facility] 04-23-2024 10:29-0500 Body weight 86.91 kg Ronit Shawk DO Work Phone: [facility] 04-23-2024 10:29-0500 Diastolic blood pressure 70 mm[Hg] Ronit Lopesyak DO Work Phone: [facility] 04-23-2024 10:29-0500 Heart rate 78 /min Ronit Lopesyak DO Work Phone: [facility] 04-23-2024 10:29-0500 Respiratory rate 16 /min Ronit Lopesyak DO Work Phone: [facility] 04-23-2024 10:29-0500 Systolic blood pressure 131 mm[Hg] Ronit Ronyak DO Work Phone: [facility] 01-29-2024 13:59-0400 Body height 152.4 cm Ronit Ronyak DO Work Phone: [facility] 01-29-2024 13:59-0400 Body mass index (BMI) [Ratio] 37.42 kg/m2 Ronit Ronyak DO Work Phone: [facility] 01-29-2024 13:59-0400 Body weight 86.91 kg Ronit Ronyak DO Work Phone: [facility] 01-29-2024 13:59-0400 Diastolic blood pressure 68 mm[Hg] Ronit Ronyak DO Work Phone: [facility] 01-29-2024 13:59-0400 Heart rate 87 /min Ronit Ronyak DO Work Phone: [facility] 01-29-2024 13:59-0400 Respiratory rate 16 /min Ronit Ronyak DO Work Phone: [facility] 01-29-2024 13:59-0400 Systolic blood pressure 145 mm[Hg] Ronit Ronyak DO Work Phone: [facility] 01-11-2024 13:01-0400 Body height 152.4 cm Ronitko Lopesyak DO Work Phone: [facility] 01-11-2024 13:01-0400 Body mass index (BMI) [Ratio] 36.99 kg/m2 Ronit Ronyak DO Work Phone: [facility] 01-11-2024 13:01-0400 Body weight 85.91 kg Ronit Ronyak DO Work Phone: [facility] 01-11-2024 13:01-0400 Diastolic blood pressure 70 mm[Hg] Ronit Ronyak DO Work Phone: [facility] 01-11-2024 13:01-0400 Heart rate 90 /min Ronit Doan DO Work Phone: [facility] 01-11-2024 13:01-0400 Respiratory rate 16 /min Ronit Squiresk DO Work Phone: [facility] 01-11-2024 13:01-0400 Systolic blood pressure 126 mm[Hg] Ronit Squiresk DO Work Phone: [facility] 01-03-2024 22:21-0400 Diastolic Blood Pressure Non-Invasive 89 mm[Hg] ZAK LEPE MD [facility] 01-03-2024 22:21-0400 Heart rate 62 /min ZAK LEPE MD [facility] 01-03-2024 22:21-0400 Respiratory rate 20 /min ZAK LEPE MD [facility] 01-03-2024 22:21-0400 Systolic Blood Pressure Non-Invasive 142 mm[Hg] ZAK LEPE MD [facility] 01-03-2024 21:18-0400 Blood Pressure Cuff Size ZAK LEPE MD [facility] 01-03-2024 21:18-0400 Blood Pressure Location ZAK LEPE MD [facility] 01-03-2024 21:18-0400 Blood Pressure Method ZAK LEPE MD [facility] 01-03-2024 21:18-0400 Body height 152.4 cm ZAK LEPE MD [facility] 01-03-2024 21:18-0400 Body temperature 98.6 [degF] ZAK LEPE MD [facility] 01-03-2024 21:18-0400 Body weight 86.4 kg ZAK LEPE MD [facility] 01-03-2024 21:18-0400 Diastolic Blood Pressure Non-Invasive 57 mm[Hg] ZAK LEPE MD [facility] 01-03-2024 21:18-0400 Heart rate 66 /min ZAK LEPE MD [facility] 01-03-2024 21:18-0400 Respiratory rate 16 /min ZAK LEPE MD [facility] 01-03-2024 21:18-0400 Systolic Blood Pressure Non-Invasive 169 mm[Hg] ZAK LEPE MD [facility] 11-21-2023 08:35-0400 Body height 152.4 cm Héctor Fairchild MD Work Phone: [facility] 11-21-2023 08:35-0400 Body mass index (BMI) [Ratio] 36.52 kg/m2 Héctor Fairchild MD Work Phone: [facility] 11-21-2023 08:35-0400 Body weight 84.82 kg Héctor Fairchild MD Work Phone: [facility] 11-21-2023 08:35-0400 Diastolic blood pressure 58 mm[Hg] Héctor Fairchild MD Work Phone: [facility] 11-21-2023 08:35-0400 Heart rate 77 /min Héctor Fairchild MD Work Phone: [facility] 11-21-2023 08:35-0400 Respiratory rate 18 /min Héctor Fairchild MD Work Phone: [facility] 11-21-2023 08:35-0400 Systolic blood pressure 127 mm[Hg] Héctor Fairchild MD Work Phone: [facility] 11-14-2023 13:34-0400 Diastolic blood pressure 55 mm[Hg] Charline Tanki DO Work Phone: [facility] 11-14-2023 13:34-0400 Systolic blood pressure 120 mm[Hg] Charline Tanki DO Work Phone: [facility] 11-14-2023 13:06-0400 Body height 152.4 cm Charline Tanki DO Work Phone: [facility] 11-14-2023 13:06-0400 Body mass index (BMI) [Ratio] 37.61 kg/m2 Charline Tanki DO Work Phone: [facility] 11-14-2023 13:06-0400 Body weight 87.36 kg Charline Hagen DO Work Phone: [facility] 11-14-2023 13:06-0400 Heart rate 83 /min Charline Hagen DO Work Phone: [facility] 10-16-2023 11:29-0400 Body height 152.4 cm Timothy Cohnveronica DO Work Phone: [facility] 10-16-2023 11:29-0400 Body mass index (BMI) [Ratio] 36.91 kg/m2 Timothy Palacio DO Work Phone: [facility] 10-16-2023 11:29-0400 Body weight 85.73 kg Timothy Laliticone DO Work Phone: [facility] 10-16-2023 11:29-0400 Diastolic blood pressure 58 mm[Hg] Timothy Palacio DO Work Phone: [facility] 10-16-2023 11:29-0400 Heart rate 76 /min Timothy Palacio DO Work Phone: [facility] 10-16-2023 11:29-0400 SaO2% (BldA) [Mass fraction] 96 % Timothy Palacio DO Work Phone: [facility] 10-16-2023 11:29-0400 Systolic blood pressure 119 mm[Hg] Timothy Palacio DO Work Phone: [facility] 09-26-2023 15:05-0400 Body height 152.4 cm Ronit Doan DO Work Phone: [facility] 09-26-2023 15:05-0400 Body mass index (BMI) [Ratio] 37.34 kg/m2 Ronit Squiresk DO Work Phone: [facility] 09-26-2023 15:05-0400 Body weight 86.73 kg Ronit Squiresk DO Work Phone: [facility] 09-26-2023 15:05-0400 Diastolic blood pressure 73 mm[Hg] Ronit Squiresk DO Work Phone: [facility] 09-26-2023 15:05-0400 Heart rate 84 /min Ronit Squiresk DO Work Phone: [facility] 09-26-2023 15:05-0400 Respiratory rate 16 /min Ronit Squiresk DO Work Phone: [facility] 09-26-2023 15:05-0400 Systolic blood pressure 114 mm[Hg] Ronitko Doan DO Work Phone: [facility] 08-24-2023 11:00-0400 Body height 152.4 cm Jaylon Kiser DO Work Phone: [facility] 08-24-2023 11:00-0400 Body mass index (BMI) [Ratio] 37.5 kg/m2 Jaylon Kiser DO Work Phone: [facility] 08-24-2023 11:00-0400 Body weight 87.09 kg Jaylon Kiser DO Work Phone: [facility] 08-24-2023 11:00-0400 Diastolic blood pressure 70 mm[Hg] Jaylon Kiser DO Work Phone: [facility] 08-24-2023 11:00-0400 Heart rate 80 /min Jaylon Kiser DO Work Phone: [facility] 08-24-2023 11:00-0400 SaO2% (BldA) [Mass fraction] 94 % Jaylon Kiser DO Work Phone: [facility] 08-24-2023 11:00-0400 Systolic blood pressure 134 mm[Hg] Jaylon Kiser DO Work Phone: [facility] 08-08-2023 11:17-0400 Body height 152.4 cm Héctor Fairchild MD Work Phone: [facility] 08-08-2023 11:17-0400 Body weight 84.82 kg Héctor Fairchild MD Work Phone: [facility] 08-08-2023 11:17-0400 Diastolic blood pressure 65 mm[Hg] Héctor Fairchild MD Work Phone: [facility] 08-08-2023 11:17-0400 Heart rate 101 /min Héctor Fairchild MD Work Phone: [facility] 08-08-2023 11:17-0400 Respiratory rate 20 /min Héctor Fairchild MD Work Phone: [facility] 08-08-2023 11:17-0400 Systolic blood pressure 131 mm[Hg] Héctor Fairchild MD Work Phone: [facility] 06-21-2023 08:32-0500 Body height 152.[address] 06-21-2023 08:32-0500 Body mass index (BMI) [Ratio] 36.52 kg/m2 [facility] 06-21-2023 08:32-0500 Body weight 84.[address] 06-13-2023 11:32-0500 Body weight 84.82 kg Héctor Fairchild MD Work Phone: [facility] 06-13-2023 11:32-0500 Diastolic blood pressure 70 mm[Hg] Héctor Fairchild MD Work Phone: [facility] 06-13-2023 11:32-0500 Heart rate 76 /min Héctor Fairchild MD Work Phone: [facility] 06-13-2023 11:32-0500 Systolic blood pressure 125 mm[Hg] Héctor Fairchild MD Work Phone: [facility] 06-07-2023 13:24-0500 Body height 152.4 cm Ronitko Squiresk DO Work Phone: [facility] 06-07-2023 13:24-0500 Body mass index (BMI) [Ratio] 36.79 kg/m2 Ronit Ronyak DO Work Phone: [facility] 06-07-2023 13:24-0500 Body weight 85.46 kg Ronitko Squiresk DO Work Phone: [facility] 06-07-2023 13:24-0500 Diastolic blood pressure 62 mm[Hg] Ronit Lopesyak DO Work Phone: [facility] 06-07-2023 13:24-0500 Heart rate 85 /min Ronit Ronyak DO Work Phone: [facility] 06-07-2023 13:24-0500 Respiratory rate 16 /min Ronit Ronyak DO Work Phone: [facility] 06-07-2023 13:24-0500 Systolic blood pressure 114 mm[Hg] Ronit Ronyak DO Work Phone: [facility] 05-16-2023 15:14-0500 Diastolic blood pressure 58 mm[Hg] Charline Hagen DO Work Phone: [facility] 05-16-2023 15:14-0500 Systolic blood pressure 118 mm[Hg] Charline Hagen DO Work Phone: [facility] 05-16-2023 14:53-0500 Body height 152.4 cm Charline Hagen DO Work Phone: [facility] 05-16-2023 14:53-0500 Body mass index (BMI) [Ratio] 36.91 kg/m2 Charline Hagen DO Work Phone: [facility] 05-16-2023 14:53-0500 Body weight 85.73 kg Charline Hagen DO Work Phone: [facility] 05-16-2023 14:53-0500 Heart rate 88 /min Charline Hagen DO Work Phone: [facility] 05-16-2023 14:53-0500 SaO2% (BldA) [Mass fraction] 97 % Charline Hagen DO Work Phone: [facility] 05-05-2023 11:23-0500 Body height 152.4 cm Ronit Squiresk DO Work Phone: [facility] 05-05-2023 11:23-0500 Body mass index (BMI) [Ratio] 36.99 kg/m2 Ronit Squiresk DO Work Phone: [facility] 05-05-2023 11:23-0500 Body weight 85.91 kg Ronit Squiresk DO Work Phone: [facility] 05-05-2023 11:23-0500 Diastolic blood pressure 66 mm[Hg] Ronitko Lopesyak DO Work Phone: [facility] 05-05-2023 11:23-0500 Heart rate 82 /min Ronitko Lopesyak DO Work Phone: [facility] 05-05-2023 11:23-0500 Respiratory rate 16 /min Ronit Lopesyak DO Work Phone: [facility] 05-05-2023 11:23-0500 Systolic blood pressure 127 mm[Hg] Ronit Doan DO Work Phone: [facility] 04-24-2023 13:54-0500 Body temperature 97.11 [degF] Kira Olvera MD Work Phone: [facility] 04-24-2023 13:54-0500 Diastolic blood pressure 63 mm[Hg] Kira Olvera MD Work Phone: [facility] 04-24-2023 13:54-0500 Heart rate 65 /min Kira Olvera MD Work Phone: [facility] 04-24-2023 13:54-0500 Respiratory rate 16 /min Kira Olvera MD Work Phone: [facility] 04-24-2023 13:54-0500 SaO2% (BldA) [Mass fraction] 98 % Kira Olvera MD Work Phone: [facility] 04-24-2023 13:54-0500 Systolic blood pressure 116 mm[Hg] Kira Olvera MD Work Phone: [facility] 04-24-2023 03:53-0500 Body height 152.4 cm Kira Olvera MD Work Phone: [facility] 04-24-2023 03:53-0500 Body mass index (BMI) [Ratio] 36.17 kg/m2 Kira Olvera MD Work Phone: [facility] 04-24-2023 03:53-0500 Body weight 84 kg Kira Olvera MD Work Phone: [facility] 02-17-2023 13:26-0400 Body height 152.4 cm Ronit Doan DO Work Phone: [facility] 02-17-2023 13:26-0400 Body mass index (BMI) [Ratio] 36.64 kg/m2 Ronit Ronyak DO Work Phone: [facility] 02-17-2023 13:26-0400 Body weight 85.09 kg Ronit Doan DO Work Phone: [facility] 02-17-2023 13:26-0400 Diastolic blood pressure 59 mm[Hg] Ronit Doan DO Work Phone: [facility] 02-17-2023 13:26-0400 Heart rate 75 /min Ronit Doan DO Work Phone: [facility] 02-17-2023 13:26-0400 Respiratory rate 16 /min Ronit Doan DO Work Phone: [facility] 02-17-2023 13:26-0400 Systolic blood pressure 128 mm[Hg] Ronit Doan DO Work Phone: [facility] 01-18-2023 14:26-0400 2.2 1 Ronit Doan Work Phone: [facility] Work Phone: Comment on above: [facility] 01-04-2023 10:43-0400 2.6 1 Roint Doan Work Phone: [facility] Work Phone: Comment on above: [facility] 12-28-2022 10:39-0400 2.3 1 Ronit Doan Work Phone: [facility] Work Phone: Comment on above: [facility] 12-20-2022 10:40-0400 3.3 1 Ronit Doan Work Phone: [facility] Work Phone: Comment on above: [facility] 12-15-2022 11:24-0400 Body height 152.4 cm Ronit Doan DO Work Phone: [facility] 12-15-2022 11:24-0400 Body mass index (BMI) [Ratio] 36.72 kg/m2 Ronit Doan DO Work Phone: [facility] 12-15-2022 11:24-0400 Body weight 85.28 kg Ronit Doan DO Work Phone: [facility] 12-15-2022 11:24-0400 Diastolic blood pressure 88 mm[Hg] Ronit Doan DO Work Phone: [facility] 12-15-2022 11:24-0400 Heart rate 72 /min Ronit Doan DO Work Phone: [facility] 12-15-2022 11:24-0400 Respiratory rate 16 /min Ronit Doan DO Work Phone: [facility] 12-15-2022 11:24-0400 Systolic blood pressure 154 mm[Hg] Ronit Doan DO Work Phone: [facility] 12-13-2022 13:05-0400 3 1 Ronit Yaz Olimpia Work Phone: [facility] Work Phone: Comment on above: [facility] 12-10-2022 10:42-0400 Body temperature 98.06 [degF] Tod Cabello DO [facility] 12-10-2022 10:42-0400 Body weight 85.3 kg Todclaude Cabello DO [facility] 12-10-2022 10:42-0400 Diastolic blood pressure 71 mm[Hg] Tod Cabello DO [facility] 12-10-2022 10:42-0400 Heart rate 64 /min Tod Cabello DO [facility] 12-10-2022 10:42-0400 Respiratory rate 18 /min Tod Cabello DO [facility] 12-10-2022 10:42-0400 SaO2% (BldA) [Mass fraction] 95 % Tod Cabello DO [facility] 12-10-2022 10:42-0400 Systolic blood pressure 149 mm[Hg] Tod Cabello DO [facility] 11-29-2022 10:07-0400 2.4 1 Ronit Mukherjee Olimpia Work Phone: [facility] Work Phone: Comment on above: [facility] 11-15-2022 10:13-0400 2.6 1 Ronit Yaz Olimpia Work Phone: [facility] Work Phone: Comment on above: [facility] 11-11-2022 13:36-0400 Body mass index (BMI) [Ratio] 36.52 kg/m2 Ronitko Doan DO Work Phone: [facility] 11-11-2022 13:36-0400 Body weight 84.82 kg Ronitko Doan DO Work Phone: [facility] 11-11-2022 13:36-0400 Diastolic blood pressure 52 mm[Hg] Ronit Squiresk DO Work Phone: [facility] 11-11-2022 13:36-0400 Heart rate 61 /min Ronit Lopescayetano DO Work Phone: [facility] 11-11-2022 13:36-0400 Systolic blood pressure 117 mm[Hg] Ronit Squiresk DO Work Phone: [facility] 11-01-2022 10:29-0400 2.6 1 Ronit Squiresk Work Phone: [facility]Qkjwybdnlb-Xqehg Work Phone: Comment on above: [facility] 10-26-2022 09:51-0400 2.8 1 Ronit Squiresk Work Phone: YD-Daogpxafeo-Cgphu Work Phone: Comment on above: [facility] 10-18-2022 14:24-0400 3.3 1 Ronit Squiresk Work Phone: IE-Spqdikruyg-Yphmt Work Phone: Comment on above: [facility] 10-14-2022 11:45-0400 Diastolic blood pressure 58 mm[Hg] Ronit Squiresk Work Phone: AC-Sxpvptxafk-Eaelo Work Phone: 10-14-2022 11:45-0400 Systolic blood pressure 110 mm[Hg] Ronit Squiresk Work Phone: VW-Grdbocxrhl-Yldfp Work Phone: 10-14-2022 11:29-0400 Body height 152.4 cm Ronit Squiresk Work Phone: GO-Rpdcbfzupk-Zgpkw Work Phone: 10-14-2022 11:29-0400 Body mass index (BMI) [Ratio] 36.33 kg/m2 Ronit Squiresk Work Phone: FR-Hrlefzeqjh-Riguh Work Phone: 10-14-2022 11:29-0400 Body surface area Derived from formula 1.81 m2 Ronit Squiresk Work Phone: NC-Wuemjvdpfy-Ipfca Work Phone: 10-14-2022 11:29-0400 Body weight 84.37 kg Ronit Squiresk Work Phone: UZ-Khrirggwrr-Lskuz Work Phone: 10-14-2022 11:29-0400 Diastolic blood pressure 64 mm[Hg] Ronit Squiresk Work Phone: WX-Qpctgqmowr-Qomhe Work Phone: 10-14-2022 11:29-0400 Heart rate 70 /min Ronit Squiresk Work Phone: HX-Khmhkecufy-Awypo Work Phone: 10-14-2022 11:29-0400 Respiratory rate 16 /min Ronit Squiresk Work Phone: VC-Zbyxobajmk-Xbxvg Work Phone: 10-14-2022 11:29-0400 SaO2% (BldA) [Mass fraction] 93 % Ronit Squiresk Work Phone: PO-Vjkbnenjnv-Rvmew Work Phone: 10-14-2022 11:29-0400 Systolic blood pressure 122 mm[Hg] Ronit Squiresk Work Phone: [place]-Jefargyhcn-Wnjqd Work Phone: 10-11-2022 13:32-0400 2.8 1 Ronit Squiresk Work Phone: FD-Xpdwjdorae-Yobys Work Phone: Comment on above: [facility] 10-04-2022 15:34-0400 Body height 152.4 cm Ronit Squiresk DO Work Phone: [facility] 10-04-2022 15:34-0400 Body mass index (BMI) [Ratio] 36.72 kg/m2 Ronit Squiresk DO Work Phone: [facility] 10-04-2022 15:34-0400 Body weight 85.28 kg Ronit Squiresk DO Work Phone: [facility] 10-04-2022 15:34-0400 Diastolic blood pressure 48 mm[Hg] Ronit Doan DO Work Phone: [facility] 10-04-2022 15:34-0400 Heart rate 63 /min Ronit Doan DO Work Phone: [facility] 10-04-2022 15:34-0400 Systolic blood pressure 136 mm[Hg] Ronit Doan DO Work Phone: [facility] 10-04-2022 13:18-0400 3.9 1 Ronit Doan Work Phone: [facility] Work Phone: Comment on above: [place] 09-27-2022 11:45-0400 3.5 1 Ronit Yaz Olimpia Work Phone: [facility] Work Phone: Comment on above: INR3 09-21-2022 11:21-0400 3.4 1 Ronit Doan Work Phone: [facility] Work Phone: Comment on above: [facility] 09-15-2022 10:48-0400 Body height 152.4 cm Ronit Yaz Mosesdileepjoni Work Phone: [facility] Work Phone: 09-15-2022 10:48-0400 Body mass index (BMI) [Ratio] 36.33 kg/m2 Ronit Doan Work Phone: [facility] Work Phone: 09-15-2022 10:48-0400 Body surface area Derived from formula 1.81 m2 Ronit Doan Work Phone: [facility] Work Phone: 09-15-2022 10:48-0400 Body weight 84.37 kg Ronit Doan Work Phone: [facility] Work Phone: 09-15-2022 10:48-0400 Diastolic blood pressure 58 mm[Hg] Ronit Doan Work Phone: [facility] Work Phone: 09-15-2022 10:48-0400 Heart rate 80 /min Ronit Doan Work Phone: [facility] Work Phone: 09-15-2022 10:48-0400 SaO2% (BldA) [Mass fraction] 96 % Ronit Doan Work Phone: [facility] Work Phone: 09-15-2022 10:48-0400 Systolic blood pressure 114 mm[Hg] Ronit Doan Work Phone: [facility] Work Phone: 09-14-2022 11:25-0400 2.6 1 Ronit Doan Work Phone: [facility] Work Phone: Comment on above: [facility] 09-09-2022 11:08-0400 1.9 1 Ronit Doan Work Phone: [facility] Work Phone: Comment on above: [facility] 09-06-2022 10:36-0400 4.3 1 Ronit Squiresk Work Phone: [facility] Work Phone: [...] cm Ronit Doan Work Phone: [facility] Work Phone: 08-18-2022 11:17-0400 Body mass index (BMI) [Ratio] 36.91 kg/m2 Ronit Doan Work Phone: [facility] Work Phone: 08-18-2022 11:17-0400 Body surface area Derived from formula 1.82 m2 Ronit Doan Work Phone: [facility] Work Phone: 08-18-2022 11:17-0400 Body weight 85.73 kg Ronit Doan Work Phone: [facility] Work Phone: 08-18-2022 11:17-0400 Diastolic blood pressure 60 mm[Hg] Ronit Doan Work Phone: [facility] Work Phone: 08-18-2022 11:17-0400 Heart rate 75 /min Ronit Doan Work Phone: [facility] Work Phone: 08-18-2022 11:17-0400 SaO2% (BldA) [Mass fraction] 96 % Ronit Doan Work Phone: [facility] Work Phone: 08-18-2022 11:17-0400 Systolic blood pressure 138 mm[Hg] Ronit Doan Work Phone: [facility] Work Phone: 08-16-2022 15:13-0400 2.3 1 Ronit oDan Work Phone: [facility] Work Phone: Comment on above: IOINR[facility] 08-11-2022 09:06-0400 Body height 152.4 cm Ronit Doan DO Work Phone: [facility] 08-11-2022 09:06-0400 Body mass index (BMI) [Ratio] 37.11 kg/m2 Ronit Doan DO Work Phone: [facility] 08-11-2022 09:06-0400 Body weight 86.18 kg Ronit Doan DO Work Phone: [facility] 08-11-2022 09:06-0400 Diastolic blood pressure 48 mm[Hg] Ronit Doan DO Work Phone: [facility] 08-11-2022 09:06-0400 Heart rate 75 /min Ronit Doan DO Work Phone: [facility] 08-11-2022 09:06-0400 Systolic blood pressure 140 mm[Hg] Ronit Squiresk DO Work Phone: [facility] 06-29-2022 10:31-0500 Body mass index (BMI) [Ratio] 37.01 kg/m2 oRnit Doan Work Phone: [facility] Work Phone: 06-29-2022 10:31-0500 Body surface area Derived from formula 1.82 m2 Ronit Doan Work Phone: [facility] [employer] Work Phone: 06-29-2022 10:31-0500 Body weight 85.96 kg oRnit Doan Work Phone: -[facility] [employer] Work Phone: 06-29-2022 10:31-0500 Diastolic blood pressure 51 mm[Hg] Ronit Doan Work Phone: -[facility] [employer] Work Phone: 06-29-2022 10:31-0500 Heart rate 83 /min Ronit Doan Work Phone: -[facility] [employer] Work Phone: 06-29-2022 10:31-0500 Systolic blood pressure 127 mm[Hg] Ronit Doan Work Phone: -[facility] [employer] Work Phone: 05-26-2022 14:18-0500 Body height 152.4 cm Ronit Doan Work Phone: -[facility] [employer] Work Phone: 05-26-2022 14:18-0500 Body mass index (BMI) [Ratio] 36.72 kg/m2 Ronit Doan Work Phone: -[facility] [employer] Work Phone: 05-26-2022 14:18-0500 Body surface area Derived from formula 1.82 m2 Ronit Doan Work Phone: [facility] [employer] Work Phone: 05-26-2022 14:18-0500 Body weight 85.28 kg Ronit Doan Work Phone: [facility] Work Phone: 05-26-2022 14:18-0500 Diastolic blood pressure 53 mm[Hg] Ronit Doan Work Phone: [facility] Work Phone: 05-26-2022 14:18-0500 Heart rate 76 /min Ronit Doan Work Phone: [facility] Work Phone: 05-26-2022 14:18-0500 Systolic blood pressure 134 mm[Hg] Ronitko Doan Work Phone: [facility] Work Phone: 04-14-2022 09:22-0500 Body height 152.4 cm Ronitko Doan Work Phone: [facility] Work Phone: 04-14-2022 09:22-0500 Body mass index (BMI) [Ratio] 36.33 kg/m2 Ronitko Doan Work Phone: [facility] Work Phone: 04-14-2022 09:22-0500 Body surface area Derived from formula 1.81 m2 Ronitko Doan Work Phone: [facility] Work Phone: 04-14-2022 09:22-0500 Body temperature 97.6 [degF] Ronit Doan Work Phone: [facility] Work Phone: 04-14-2022 09:22-0500 Body weight 84.37 kg Ronit A Mosescayetano Work Phone: [facility] Work Phone: 04-14-2022 09:22-0500 Diastolic blood pressure 50 mm[Hg] Ronit Doan Work Phone: [facility] Work Phone: 04-14-2022 09:22-0500 Heart rate 73 /min Ronit Doan Work Phone: [facility] Work Phone: 04-14-2022 09:22-0500 SaO2% (BldA) [Mass fraction] 95 % Ronit Doan Work Phone: [facility] Work Phone: 04-14-2022 09:22-0500 Systolic blood pressure 126 mm[Hg] Ronitko Doan Work Phone: [facility] Work Phone: 03-21-2022 11:13-0500 Diastolic blood pressure 50 mm[Hg] Ronitko oDan Work Phone: [facility] [employer] Work Phone: 03-21-2022 11:13-0500 Systolic blood pressure 118 mm[Hg] Ronitko Doan Work Phone: [facility] [employer] Work Phone: 03-21-2022 10:48-0500 Body mass index (BMI) [Ratio] 37.16 kg/m2 Ronitko Doan Work Phone: [facility] [employer] Work Phone: 03-21-2022 10:48-0500 Body surface area Derived from formula 1.83 m2 Ronitko Doan Work Phone: [facility] Work Phone: 03-21-2022 10:48-0500 Body weight 86.3 kg Ronit Lopescayetano Work Phone: [facility] Work Phone: 03-21-2022 10:48-0500 Diastolic blood pressure 70 mm[Hg] Ronit Doan Work Phone: [facility] Work Phone: 03-21-2022 10:48-0500 Heart rate 86 /min Ronit Doan Work Phone: [facility] Work Phone: 03-21-2022 10:48-0500 SaO2% (BldA) [Mass fraction] 95 % Ronit Doan Work Phone: [facility] Work Phone: 03-21-2022 10:48-0500 Systolic blood pressure 142 mm[Hg] Ronit Doan Work Phone: [facility] Work Phone: 03-09-2022 13:26-0400 Body height 152.4 cm Ronit Doan Work Phone: [facility] DO Work Phone: 03-09-2022 13:26-0400 Body mass index (BMI) [Ratio] 36.52 kg/m2 Ronit Doan Work Phone: [facility] DO Work Phone: 03-09-2022 13:26-0400 Body surface area Derived from formula 1.81 m2 Ronit Doan Work Phone: [facility] DO Work Phone: 03-09-2022 13:26-0400 Body weight 84.82 kg Ronit Doan Work Phone: [facility] DO Work Phone: 02-17-2022 10:49-0400 Body height 152.4 cm Ronit Doan Work Phone: [facility] [address] Work Phone: 02-17-2022 10:49-0400 Body mass index (BMI) [Ratio] 36.52 kg/m2 Ronit Doan Work Phone: [facility] [place] [address] Work Phone: 02-17-2022 10:49-0400 Body surface area Derived from formula 1.81 m2 Ronit Doan Work Phone: [facility] [place] [address] Work Phone: 02-17-2022 10:49-0400 Body weight 84.82 kg Ronit Doan Work Phone: [facility] [address] Work Phone: 02-17-2022 10:49-0400 Diastolic blood pressure 62 mm[Hg] Ronitko Doan Work Phone: [facility] [address] Work Phone: 02-17-2022 10:49-0400 Heart rate 80 /min Ronit Doan Work Phone: [facility] [address] Work Phone: 02-17-2022 10:49-0400 SaO2% (BldA) [Mass fraction] 98 % Ronit Doan Work Phone: [facility] [address] Work Phone: 02-17-2022 10:49-0400 Systolic blood pressure 130 mm[Hg] Ronit Squiresjoni Work Phone: [facility] [address] Work Phone: 02-07-2022 08:59-0400 Body height 152.4 cm Ronit Doan Work Phone: [facility] [address] Work Phone: 02-07-2022 08:59-0400 Body mass index (BMI) [Ratio] 36.37 kg/m2 Ronit Doan Work Phone: [facility] [place] [address] Work Phone: 02-07-2022 08:59-0400 Body surface area Derived from formula 1.81 m2 Ronit Doan Work Phone: [facility] [place] [address] Work Phone: 02-07-2022 08:59-0400 Body weight 84.48 kg Ronit Doan Work Phone: [facility] [place] [address] Work Phone: 02-07-2022 08:59-0400 Diastolic blood pressure 74 mm[Hg] Ronit Doan Work Phone: [facility] [address] Work Phone: 02-07-2022 08:59-0400 Heart rate 79 /min Ronit Doan Work Phone: [facility] [place] [address] Work Phone: 02-07-2022 08:59-0400 SaO2% (BldA) [Mass fraction] 93 % Ronit Doan Work Phone: [facility] [address] Work Phone: 02-07-2022 08:59-0400 Systolic blood pressure 159 mm[Hg] Ronit Yaz Olimpia Work Phone: [facility] [address] Work Phone: 02-07-2022 08:59-0400 0 1 Ronit Yaz Olimpia Work Phone: [facility] Work Phone: Comment on above: [employer] 09-12-2022 09:21-0400 Body height 152.4 cm Ronit Doan Work Phone: [facility] Work Phone: 01-17-2022 09:21-0400 Body mass index (BMI) [Ratio] 36.13 kg/m2 Ronitko Doan Work Phone: [facility] Work Phone: 01-17-2022 09:21-0400 Body surface area Derived from formula 1.81 m2 Ronit Yaz Olimpia Work Phone: [facility] Work Phone: 01-17-2022 09:21-0400 Body weight 83.92 kg Ronitko Doan Work Phone: [facility] Work Phone: 01-17-2022 09:21-0400 Diastolic blood pressure 60 mm[Hg] Ronitko Doan Work Phone: [facility] Work Phone: 01-17-2022 09:21-0400 Heart rate 72 /min Ronit Doan Work Phone: [facility] Work Phone: 01-17-2022 09:21-0400 Systolic blood pressure 144 mm[Hg] Ronit Mukherjee Mosesdileepjoni Work Phone: [facility] Work Phone: 01-12-2022 13:17-0400 Body height 152.4 cm Ronit Yaz Olimpia Work Phone: [facility] Work Phone: 01-12-2022 13:17-0400 Body mass index (BMI) [Ratio] 35.94 kg/m2 Ronit Doan Work Phone: [facility] Work Phone: 01-12-2022 13:17-0400 Body surface area Derived from formula 1.8 m2 Ronit Doan Work Phone: [facility] [...] SaO2% (BldA) [Mass fraction] 95 % Ronit Squiresk Work Phone: [facility] Work Phone: 11-02-2021 14:34-0400 Systolic blood pressure 146 mm[Hg] Ronitko Doan Work Phone: [facility] Work Phone: 11-02-2021 14:34-0400 6 1 Ronit Doan Work Phone: [facility] Work Phone: Comment on above: [employer] 09-21-2021 15:27-0400 Diastolic blood pressure 65 mm[Hg] Ronitko Doan Work Phone: WC-Rnbitedpzb-Mdxrh Work Phone: 09-21-2021 15:27-0400 Systolic blood pressure 138 mm[Hg] Ronitko Doan Work Phone: YJ-Qtjewyynps-Iynel Work Phone: 09-21-2021 14:58-0400 Body mass index (BMI) [Ratio] 36.23 kg/m2 Ronit Yaz Olimpia Work Phone: GJ-Vffaihhhpj-Cnizb Work Phone: 09-21-2021 14:58-0400 Body surface area Derived from formula 1.81 m2 Ronit Yaz Shawk Work Phone: NG-Nlkorieefg-Rrlpa Work Phone: 09-21-2021 14:58-0400 Body weight 84.14 kg Ronit Mukherjee Olimpia Work Phone: VO-Sthvurkxwf-Lenin Work Phone: 09-21-2021 14:58-0400 Diastolic blood pressure 60 mm[Hg] Ronit Squiresk Work Phone: FA-Bvmmikvvbo-Imide Work Phone: 09-21-2021 14:58-0400 Heart rate 83 /min Ronit Squiresk Work Phone: JJ-Fwxhizgmqd-Mewov Work Phone: 09-21-2021 14:58-0400 SaO2% (BldA) [Mass fraction] 97 % Ronit Squiresk Work Phone: XS-Owtvbezbiw-Azfmp Work Phone: 09-21-2021 14:58-0400 Systolic blood pressure 130 mm[Hg] Ronit Squiresk Work Phone: OW-Sxerdpmwjh-Qwaiy Work Phone: 09-20-2021 09:49-0400 Body mass index (BMI) [Ratio] 36.41 kg/m2 Ronit Squiresk Work Phone: BA-Hihfcfczbs-Hqxfm Work Phone: 09-20-2021 09:49-0400 Body surface area Derived from formula 1.81 m2 Ronit Squiresk Work Phone: HH-Idighepdwp-Kavrp Work Phone: 09-20-2021 09:49-0400 Body weight 84.57 kg Ronit Doan Work Phone: JX-Rqfqtrjkcr-Bygku Work Phone: 09-20-2021 09:49-0400 Diastolic blood pressure 60 mm[Hg] Ronit Squiresk Work Phone: IA-Ebcntnlkmy-Kzlxc Work Phone: 09-20-2021 09:49-0400 Heart rate 68 /min Ronit Squiresk Work Phone: QH-Nqurvpfgag-Zbbsy Work Phone: 09-20-2021 09:49-0400 Systolic blood pressure 129 mm[Hg] Ronti Doan Work Phone: OJ-Ymfnbwvcrd-Onljj Work Phone: 08-19-2021 07:51-0400 Body height 152.4 cm Ronit Doan Work Phone: [facility] Work Phone: 08-19-2021 07:51-0400 Body mass index (BMI) [Ratio] 36.13 kg/m2 Ronit Doan Work Phone: [facility] [place] [facility] Work Phone: 08-19-2021 07:51-0400 Body surface area Derived from formula 1.81 m2 Ronit Doan Work Phone: [facility] [place] [address] Work Phone: 08-19-2021 07:51-0400 Body weight 83.92 kg Ronit Doan Work Phone: [facility] [place] [facility] Work Phone: 08-19-2021 07:51-0400 Diastolic blood pressure 64 mm[Hg] Ronit Doan Work Phone: [facility] Work Phone: 08-19-2021 07:51-0400 Heart rate 71 /min Ronit Doan Work Phone: [facility] Work Phone: 08-19-2021 07:51-0400 SaO2% (BldA) [Mass fraction] 96 % Ronit Doan Work Phone: [facility] [place] [facility] Work Phone: 08-19-2021 07:51-0400 Systolic blood pressure 126 mm[Hg] Ron[facility] Work Phone: 08-01-2021 12:00-0400 Heart rate 60 /min Ronit Doan Other Phone: [facility] Other Phone (unformatted): [phone] 08-01-2021 12:00-0400 Respiratory rate 23 /min Ronit Doan Other Phone: [facility] Other Phone (unformatted): [phone] 08-01-2021 12:00-0400 SaO2% (BldA) [Mass fraction] 92 % Ronit Doan Other Phone: [facility] Other Phone (unformatted): [phone] 08-01-2021 11:00-0400 Diastolic blood pressure 63 mm[Hg] Ronit Doan Other Phone: [facility] Other Phone (unformatted): [phone] 08-01-2021 11:00-0400 Systolic blood pressure 133 mm[Hg] Ronit Doan Other Phone: [facility] Other Phone (unformatted): [phone] 08-01-2021 10:00-0400 Body temperature 97.7 [degF] Ronit Doan Other Phone: [facility] Other Phone (unformatted): [phone] 08-01-2021 09:59-0400 FiO2 21 1 Ronit Doan Other Phone: [facility] Other Phone (unformatted): [phone] 07-15-2021 09:55-0500 Body height 152.4 cm Ronit Doan [facility] [place] [facility] Work Phone: 07-15-2021 09:55-0500 Body mass index (BMI) [Ratio] 37.3 kg/m2 Ronit Doan Work Phone: [facility] [address] Work Phone: 07-15-2021 09:55-0500 Body surface area Derived from formula 1.83 m2 Ronit Squiresjoni Work Phone: [facility] [address] Work Phone: 07-15-2021 09:55-0500 Body weight 86.64 kg Ronit Squiresjoni Work Phone: [facility] [address] Work Phone: 07-15-2021 09:55-0500 Diastolic blood pressure 70 mm[Hg] Ronit Yaz Olimpia Work Phone: [facility] [address] Work Phone: 07-15-2021 09:55-0500 Heart rate 68 /min Ronit Doan Work Phone: [facility] [address] Work Phone: 07-15-2021 09:55-0500 SaO2% (BldA) [Mass fraction] 96 % Ronit Squiresjoni Work Phone: [facility] [address] Work Phone: 07-15-2021 09:55-0500 Systolic blood pressure 128 mm[Hg] Ronit Yaz Mosescayetano Work Phone: [facility] [address] Work Phone: 06-30-2021 13:39-0500 Body height 152.4 cm Ronit Doan Work Phone: ON-Nlryzgjnwa-Cdbydu [address] [place] Work Phone: 06-30-2021 13:39-0500 Body mass index (BMI) [Ratio] 36.91 kg/m2 Ronit Doan Work Phone: SH-Eylzsfgvnw-Ltvmtx [address] [place] Work Phone: 06-30-2021 13:39-0500 Body surface area Derived from formula 1.82 m2 Ronit Lopescayetano Work Phone: NZ-Bbonrlwyup-Infgkh [address] [place] Work Phone: 06-30-2021 13:39-0500 Body weight 85.73 kg Ronit Lopescayetano Work Phone: TP-Itvjlmaukd-Cqrgqi [address] [place] Work Phone: 06-30-2021 13:39-0500 Diastolic blood pressure 76 mm[Hg] Ronit Lopescayetano Work Phone: PD-Vdwquortvn-Mktqvo [address] [place] Work Phone: 06-30-2021 13:39-0500 Heart rate 82 /min Ronit Lopescayetano Work Phone: LZ-Cqftqottmt-Lybqzo [address] [place] Work Phone: 06-30-2021 13:39-0500 SaO2% (BldA) [Mass fraction] 97 % Ronit Lopescayetano Work Phone: QS-Ptuonbzksc-Muekvm [address] [place] Work Phone: 06-30-2021 13:39-0500 Systolic blood pressure 160 mm[Hg] Ronit Doan Work Phone: II-Mgjdpglldx-Pguvgt [address] [place] Work Phone: 06-21-2021 10:18-0500 Diastolic blood pressure 57 mm[Hg] Ronit Doan Work Phone: [facility] Work Phone: 06-21-2021 10:18-0500 Systolic blood pressure 138 mm[Hg] Ronit Doan Work Phone: [facility] Work Phone: 06-21-2021 10:00-0500 Body mass index (BMI) [Ratio] 36.81 kg/m2 Ronit Doan Work Phone: [facility] Work Phone: 06-21-2021 10:00-0500 Body surface area Derived from formula 1.82 m2 Ronit Doan Work Phone: [facility] Work Phone: 06-21-2021 10:00-0500 Body temperature 96.4 [degF] Ronit Doan Work Phone: [facility] [employer] Work Phone: 06-21-2021 10:00-0500 Body weight 85.5 kg Ronit Doan Work Phone: [facility] [employer] Work Phone: 06-21-2021 10:00-0500 Heart rate 85 /min Ronit Doan Work Phone: [facility] [employer] Work Phone: 04-17-2021 11:18-0500 Body temperature 97 [degF] Ronit Doan Work Phone: [facility] Work Phone: 04-17-2021 11:18-0500 Diastolic blood pressure 78 mm[Hg] Ronit Doan Work Phone: [facility] Work Phone: 04-17-2021 11:18-0500 Heart rate 69 /min Ronit Doan Work Phone: [facility] Work Phone: 04-17-2021 11:18-0500 Respiratory rate 16 /min Ronit Squiresk Work Phone: [facility] Work Phone: 04-17-2021 11:18-0500 SaO2% (BldA) [Mass fraction] 95 % Ronit Doan Work Phone: [facility] Work Phone: 04-17-2021 11:18-0500 Systolic blood pressure 157 mm[Hg] Ronit Squiresk Work Phone: [facility] Work Phone: 03-24-2021 15:12-0500 Diastolic blood pressure 68 mm[Hg] Ronit Squiresk Work Phone: LQ-Hmtwbatuhx-Eplpo Work Phone: 03-24-2021 15:12-0500 Systolic blood pressure 145 mm[Hg] Ronit Squiresk Work Phone: HL-Hlwryvyfbd-Dskuy Work Phone: 03-24-2021 14:43-0500 Body height 152.4 cm Ronit Squiresk Work Phone: MZ-Vkhywmcqoy-Wyqix Work Phone: 03-24-2021 14:43-0500 Body mass index (BMI) [Ratio] 36.99 kg/m2 Ronit Squiresk Work Phone: TA-Oyyhzklxsz-Kbcrr Work Phone: 03-24-2021 14:43-0500 Body surface area Derived from formula 1.82 m2 Ronit Squiresk Work Phone: WI-Kwkunnedhn-Ygtdi Work Phone: 03-24-2021 14:43-0500 Body weight 85.91 kg Ronit Squiresk Work Phone: BP-Gcspodyxvo-Fznll Work Phone: 03-24-2021 14:43-0500 Diastolic blood pressure 65 mm[Hg] Ronit Squiresk Work Phone: PG-Znvvwbiiuo-Hmaej Work Phone: 03-24-2021 14:43-0500 Heart rate 70 /min Ronit Doan Work Phone: WZ-Jlxcozxwke-Itnvy Work Phone: 03-24-2021 14:43-0500 SaO2% (BldA) [Mass fraction] 97 % Ronit Doan Work Phone: UW-Ekggzbtcwh-Ianpl Work Phone: 03-24-2021 14:43-0500 Systolic blood pressure 154 mm[Hg] Ronit Doan Work Phone: XA-Fvbpgxthvw-Kflug Work Phone: 03-18-2021 13:32-0500 Body mass index (BMI) [Ratio] 36.95 kg/m2 Ronit Doan Work Phone: [facility] Work Phone: 03-18-2021 13:32-0500 Body surface area Derived from formula 1.82 m2 Ronit Doan Work Phone: [facility] Work Phone: 03-18-2021 13:32-0500 Body temperature 97.2 [degF] Ronit Doan Work Phone: [facility] Work Phone: 03-18-2021 13:32-0500 Body weight 85.82 kg Ronit Doan Work Phone: [facility] Work Phone: 03-18-2021 13:32-0500 Diastolic blood pressure 64 mm[Hg] Ronit Doan Work Phone: [facility] Work Phone: 03-18-2021 13:32-0500 Heart rate 79 /min Ronit Doan Work Phone: [facility] Work Phone: 03-18-2021 13:32-0500 Systolic blood pressure 140 mm[Hg] Ronit Doan Work Phone: [facility] Work Phone: 01-25-2021 09:46-0400 Body height 152.4 cm Ronit Doan Work Phone: [facility] [employer] Work Phone: 01-25-2021 09:46-0400 Body mass index (BMI) [Ratio] 36.13 kg/m2 Ronitko Doan Work Phone: [facility] [employer] Work Phone: 01-25-2021 09:46-0400 Body surface area Derived from formula 1.81 m2 Ronit Yaz Lopescayetano Work Phone: [facility] [employer] Work Phone: 01-25-2021 09:46-0400 Body weight 83.92 kg Ronit Doan Work Phone: [facility] [employer] Work Phone: 01-15-2021 10:37-0400 Body height 152.4 cm Ronitko Doan Work Phone: GL-Yrrpgwwafc-Eqmrqp [address] [place] Work Phone: 01-15-2021 10:37-0400 Body mass index (BMI) [Ratio] 36.52 kg/m2 Ronitko Doan Work Phone: OX-Jqiswaxyii-Bqgnpe [address] [place] Work Phone: 01-15-2021 10:37-0400 Body surface area Derived from formula 1.81 m2 Ronit Yaz Lopesdileepjoni Work Phone: ZL-Nldwfwkhpa-Opksvx [address] [place] Work Phone: 01-15-2021 10:37-0400 Body weight 84.82 kg Ronit Lopesdileepjoni Work Phone: PT-Ondjbderqe-Snhiad [address] [place] Work Phone: 01-15-2021 10:37-0400 Diastolic blood pressure 71 mm[Hg] Ronit Mukherjee Olimpia Work Phone: IQ-Ximrntkfbg-Bygdje [address] [place] Work Phone: 01-15-2021 10:37-0400 Heart rate 74 /min Ronit Mukherjee Olimpia Work Phone: XD-Brnpbdgjim-Afkxwp [address] [place] Work Phone: 01-15-2021 10:37-0400 SaO2% (BldA) [Mass fraction] 96 % Ronit Mukherjee Olimpia Work Phone: RK-Kmqriidprd-Oxhmhi [address] [place] Work Phone: 01-15-2021 10:37-0400 Systolic blood pressure 130 mm[Hg] Ronit Lopescayetano Work Phone: WX-Zrlnnqokli-Blroju [address] [place] Work Phone: 01-15-2021 10:37-0400 0 1 Ronit Yaz Olimpia Work Phone: HO-Qshcyimfjd-Soeyyl [address] [place] Work Phone: Comment on above: [employer] 01-07-2021 11:59-0400 SaO2% (BldA) [Mass fraction] 97 % Ronit Squiresjoni Work Phone: [facility] Work Phone: 01-07-2021 11:56-0400 Body height 152.4 cm Ronit Squiresjoni Work Phone: [facility] Work Phone: 01-07-2021 11:56-0400 Body mass index (BMI) [Ratio] 36.52 kg/m2 Ronit Squiresjoni Work Phone: [facility] Work Phone: 01-07-2021 11:56-0400 Body surface area Derived from formula 1.81 m2 Ronit Doan Work Phone: [facility] Work Phone: 01-07-2021 11:56-0400 Body weight 84.82 kg Ronit Doan Work Phone: [facility] Work Phone: 01-07-2021 11:56-0400 Diastolic blood pressure 75 mm[Hg] Ronit Doan Work Phone: [facility] [employer] Work Phone: 01-07-2021 11:56-0400 Heart rate 79 /min Ronit Doan Work Phone: [facility] [employer] Work Phone: 01-07-2021 11:56-0400 Systolic blood pressure 150 mm[Hg] Ronit Doan Work Phone: [facility] [employer] Work Phone: 12-07-2020 13:42-0400 Body height 152.4 cm Ronit Doan Work Phone: [facility] [employer] Work Phone: 12-07-2020 13:42-0400 Body mass index (BMI) [Ratio] 35.94 kg/m2 Ronit Doan Work Phone: [facility] [employer] Work Phone: 12-07-2020 13:42-0400 Body surface area Derived from formula 1.8 m2 Ronit Doan Work Phone: [facility] [employer] Work Phone: 12-07-2020 13:42-0400 Body temperature 98.1 [degF] Ronit Doan Work Phone: [facility] [employer] Work Phone: 12-07-2020 13:42-0400 Body weight 83.46 kg Ronit Doan Work Phone: [facility] Work Phone: 12-07-2020 13:42-0400 Diastolic blood pressure 74 mm[Hg] Ronit Doan Work Phone: [facility] [employer] Work Phone: 12-07-2020 13:42-0400 Heart rate 72 /min Ronit Doan Work Phone: [facility] [employer] Work Phone: 12-07-2020 13:42-0400 SaO2% (BldA) [Mass fraction] 95 % Ronit Doan Work Phone: [facility] [employer] Work Phone: 12-07-2020 13:42-0400 Systolic blood pressure 155 mm[Hg] Ronit Doan Work Phone: [facility] [employer] Work Phone: 11-17-2020 14:09-0400 Body height 152.4 cm Ronit Doan Work Phone: [facility] [employer] Work Phone: 11-17-2020 14:09-0400 Body mass index (BMI) [Ratio] 36.36 kg/m2 Ronit Doan Work Phone: [facility] [employer] Work Phone: 11-17-2020 14:09-0400 Body surface area Derived from formula 1.81 m2 Ronit Doan Work Phone: [facility] [employer] Work Phone: 11-17-2020 14:09-0400 Body weight 84.46 kg Ronit Doan Work Phone: [facility] [employer] Work Phone: 11-17-2020 14:09-0400 Diastolic blood pressure 62 mm[Hg] Ronit Doan Work Phone: [facility] Work Phone: 11-17-2020 14:09-0400 Heart rate 64 /min Ronit Doan Work Phone: [facility] Work Phone: 11-17-2020 14:09-0400 Systolic blood pressure 140 mm[Hg] Ronit Doan Work Phone: [facility] Work Phone: 10-27-2020 09:57-0400 Body height 152.4 cm Ronit Doan Work Phone: [facility] Work Phone: 10-27-2020 09:57-0400 Body mass index (BMI) [Ratio] 36.9 kg/m2 Ronit Doan Work Phone: [facility] Work Phone: 10-27-2020 09:57-0400 Body surface area Derived from formula 1.82 m2 Ronit Doan Work Phone: [facility] Work Phone: 10-27-2020 09:57-0400 Body temperature 97 [degF] Ronit Doan Work Phone: [facility] Work Phone: 10-27-2020 09:57-0400 Body weight 85.7 kg Ronitko Doan Work Phone: [facility] Work Phone: 10-27-2020 09:57-0400 Diastolic blood pressure 52 mm[Hg] Ronitko Doan Work Phone: [facility] Work Phone: [...] height 152.4 cm Katharine Scales Work Phone: VT-Qotpdcqisl-Esxhz Work Phone: 09-18-2020 13:19-0400 Body mass index (BMI) [Ratio] 35.94 kg/m2 Katharine Scales Work Phone: DL-Lmrcbqjrla-Aexvg Work Phone: 09-18-2020 13:19-0400 Body surface area Derived from formula 1.8 m2 Katharine Scales Work Phone: SF-Coyaasojeb-Mpokh Work Phone: 09-18-2020 13:19-0400 Body weight 83.46 kg Katharine Scales Work Phone: HT-Imrddiinfu-Dzwld Work Phone: 09-18-2020 13:19-0400 Diastolic blood pressure 67 mm[Hg] Katharine Joni Jefersonangy Work Phone: IV-Yzzoyumajo-Jssqg Work Phone: 09-18-2020 13:19-0400 Heart rate 80 /min Katharine Scales Work Phone: QD-Xvvoejiloh-Ywheg Work Phone: 09-18-2020 13:19-0400 SaO2% (BldA) [Mass fraction] 96 % Katharine K Jefersonangy Work Phone: EI-Bsicawlpyy-Dfbnm Work Phone: 09-18-2020 13:19-0400 Systolic blood pressure 134 mm[Hg] Katharine Scales Work Phone: FP-Mpvdfrgwin-Cwovm Work Phone: 09-03-2020 15:07-0400 Body mass index (BMI) [Ratio] 36.33 kg/m2 [facility] Work Phone: 09-03-2020 15:07-0400 Body surface area Derived from formula 1.81 m2 Timothy [facility]itrealdo [facility] Work Phone: 09-03-2020 15:07-0400 Body temperature 97.1 [degF] Timothy Lalitrealdo [place] [facility] Work Phone: 09-03-2020 15:07-0400 Body weight 84.37 kg Timothy Navaaldo [place] [facility] Work Phone: 09-03-2020 15:07-0400 Diastolic blood pressure 59 mm[Hg] Timothy Lalitrealdo [facility] Work Phone: 09-03-2020 15:07-0400 Heart rate 78 /min Timothy Palacio DO [facility] Work Phone: 09-03-2020 15:07-0400 SaO2% (BldA) [Mass fraction] 95 % Timothy Palacio DO [facility] Work Phone: 09-03-2020 15:07-0400 Systolic blood pressure 137 mm[Hg] Timothy Palacio DO [facility] Work Phone: 09-03-2020 13:07-0400 Body mass index (BMI) [Ratio] 36.33 kg/m2 Katharine Scales Work Phone: RI-Kjomwhotzu-Giapa Work Phone: 09-03-2020 13:07-0400 Body surface area Derived from formula 1.81 m2 Katharine Scales Work Phone: IB-Vkuyrqljte-Ievbp Work Phone: 09-03-2020 13:07-0400 Body temperature 97.1 [degF] Katharine Scales Work Phone: YV-Hsshsajirt-Oodsv Work Phone: 09-03-2020 13:07-0400 Body weight 84.37 kg Katharine Scales Work Phone: IK-Pjazesomkm-Cnezt Work Phone: 09-03-2020 13:07-0400 Diastolic blood pressure 59 mm[Hg] Katharine Scales Work Phone: HZ-Izdyvjmsyh-Rlrxu Work Phone: 09-03-2020 13:07-0400 Heart rate 78 /min Katharine Scales Work Phone: SW-Oixquaydka-Ckqkh Work Phone: 09-03-2020 13:07-0400 SaO2% (BldA) [Mass fraction] 95 % Katharine Scales Work Phone: BQ-Gdriwuluru-Dwnrd Work Phone: 09-03-2020 13:07-0400 Systolic blood pressure 137 mm[Hg] Katharine Scales Work Phone: QJ-Oweqdiglcz-Ffosk Work Phone: 2020 12:43-0500 BMI (Body Mass Index) 35.96 kg/m2 Shelley Fajardo XR-Owbzklvqwu-Fvtrgj Work Phone: 2020 12:43-0500 Body weight 83.52 kg Shelley Fajardo CW-Kkusebrtmt-Wc lakhwinder Work Phone: 2020 12:43-0500 BP Diastolic 73 mm[Hg] Shelley Conwayi TN-Beympsarer-Cg lakhwinder Work Phone: Comment on above: Location: RUE; Position: Sitting 2020 12:43-0500 BP Systolic 144 mm[Hg] Shelley Conwayi ZI-Ussbyklmwb-Ty lakhwinder Work Phone: Comment on above: Location: RUE; Position: Sitting 2020 12:43-0500 BSA (Body Surface Area) 1.8 m2 Shelley Fajardo LF-Hhayguxjks-Cgphwk Work Phone: 2020 12:43-0500 Height 152.4 cm Shelley Conwayi FG-Htutkeidjb-Uc lakhwinder Work Phone: 2020 12:43-0500 Pulse (Heart Rate) 82 /min Shelley Conwayi MG-Cardiology -Cazares Work Phone: 2020 12:43-0500 Pulse Oximetry 97 % Shelley Fajardo WI-Wxyzqaukla-Gg lakhwinder Work Phone: 04-06-2020 14:57-0500 BMI (Body Mass Index) 34.66 kg/m2 Shelley Fajardo [facility] Work Phone: 04-06-2020 14:57-0500 Body Temperature 97 [degF] Shelley Portillomaximinojayceeduardo [facility] Work Phone: 04-06-2020 14:57-0500 Body weight 83.21 kg Shelley Portillomaximinojayceeduardo MP[facility] Work Phone: 04-06-2020 14:57-0500 BP Diastolic 64 mm[Hg] Shelley Portillojoseryanneeduardo MP[facility] Work Phone: 04-06-2020 14:57-0500 BP Systolic 145 mm[Hg] Shelley Portillojoseryanneeduardo [facility] Work Phone: 04-06-2020 14:57-0500 BSA (Body Surface Area) 1.82 m2 Shelleyaldo Fajardo MP-[facility] Work Phone: 04-06-2020 14:57-0500 Pulse (Heart Rate) 80 /min Shelley Scotty MP-[facility] Med [facility] Work Phone: 04-06-2020 14:57-0500 Pulse Oximetry 98 % Shelley Portillojoseryanneeduardo MP[facility] Work Phone: 09-23-2019 13:14-0400 BMI (Body Mass Index) 32.9 kg/m2 Timothy Cohnicone MP-[facility] Work Phone: 09-23-2019 13:14-0400 Body weight 80.29 kg Timothy Cohnicone MP[facility] Work Phone: 09-23-2019 13:14-0400 BSA (Body Surface Area) 1.8 m2 Timothy Cohnicone MP-[facility] Work Phone: 09-23-2019 13:14-0400 Height 156.21 cm Timothy Cohnicone MP[facility] Work Phone: 07-16-2019 11:53-0400 BMI (Body Mass Index) 33.09 kg/m2 Timothy Palacio Medical Simulation-[facility] Work Phone: 07-16-2019 11:53-0400 Body Temperature 98.9 [degF] Timothy Palacio Medical Simulation-[facility] Medic [facility] Work Phone: 07-16-2019 11:53-0400 Body weight 80.74 kg Timothy Palacio Medical Simulation-[facility] Work Phone: 07-16-2019 11:53-0400 BP Diastolic 67 mm[Hg] Timothy Palacio Medical Simulation-[facility] Work Phone: 07-16-2019 11:53-0400 BP Systolic 145 mm[Hg] Timothy Palacio Medical Simulation-[facility] Work Phone: 07-16-2019 11:53-0400 BSA (Body Surface Area) 1.81 m2 Timothy Cohn4Cable TValdo KRAFTWERK [facility] Work Phone: 07-16-2019 11:53-0400 Pulse (Heart Rate) 83 /min Timothy Palacio KRAFTWERK Med ical [facility] Work Phone: 07-16-2019 11:53-0400 Pulse Oximetry 95 % Timothy Palacio Medical Simulation-[facility] Work Phone: 06-30-2019 11:51-0500 Body temperature 37.0 {degrees_C} Timothy Palacio Flash[facility] Work Phone: Comment on above: NOTE: PATIENT RESULTS ARE NOT CORRECTED FOR TEMPERATURE. Ordering Provider: Marcus JORDAN [id number] 05-14-2019 15:03-0500 BMI (Body Mass Index) 33.83 kg/m2 Katharine Scales K[employer] [facility] Work Phone: 05-14-2019 15:03-0500 Body Temperature 98 [degF] Katharine Scales [facility] Work Phone: Comment on above: Method: Oral 05-14-2019 15:03-0500 Body weight 82.56 kg Katharine Scales MP[facility] Work Phone: 05-14-2019 15:03-0500 BP Diastolic 60 mm[Hg] Katharine Scales MP-[facility] Work Phone: Comment on above: Location: LUE; Position: Sitting 05-14-2019 15:03-0500 BP Systolic 118 mm[Hg] Katharine Scales MP[facility] Work Phone: Comment on above: Location: LUE; Position: Sitting 05-14-2019 15:03-0500 BSA (Body Surface Area) 1.83 m2 Katharine Mcnamarascar MP-[facility] Work Phone: 05-14-2019 15:03-0500 Pulse (Heart Rate) 66 /min Katharine Mcnamarascar MP-[facility] Med [facility] Work Phone: 05-14-2019 15:03-0500 Pulse Oximetry 95 % Katharine Scales MP[facility] Work Phone: 04-16-2019 17:43-0500 BMI (Body Mass Index) 33.48 kg/m2 [facility] Work Phone: 04-16-2019 17:43-0500 Body Temperature 98.1 [degF] [facility] Work Phone: Comment on above: Method: Oral 04-16-2019 17:43-0500 Body weight 81.7 kg [facility] Work Phone: 04-16-2019 17:43-0500 BP Diastolic 68 mm[Hg] [facility] [employer] Work Phone: Comment on above: Location: LUE; Position: Sitting 04-16-2019 17:43-0500 BP Systolic 122 mm[Hg] [facility] [employer] Work Phone: Comment on above: Location: LUE; Position: Sitting 04-16-2019 17:43-0500 BSA (Body Surface Area) 1.82 m2 [facility] [employer] Work Phone: 04-16-2019 17:43-0500 Pulse (Heart Rate) 73 /min [facility] [employer] Work Phone: 04-16-2019 17:43-0500 Pulse Oximetry 97 % [facility] [employer] Work Phone: Encounters Encounter Date Encounter Type Care Provider Facility Start: 03-14-2025 ambulatory Ronitko Lopescayetano [facility] Start: 03-14-2025 End: 03-18-2025 Evaluation and management of inpatient Francisco Godinez Facility:[facility] Start: 03-13-2025 ambulatory Ronit Mosescayetano [facility] Start: 02-17-2025 End: 02-17-2025 ambulatory [facility] Start: 02-17-2025 End: 02-17-2025 Subsequent hospital visit by physician Par [facility] 3 Device Remote [facility] 3 Comment on above: Complete atrioventri cular block (Multi); Presence of cardiac pacemaker Start: 02-10-2025 End: 02-10-2025 ambulatory [facility] Start: 02-10-2025 End: 02-10-2025 Subsequent hospital visit by physician [facility] 3 Device Remote [facility] 3 Comment on above: Complete atrioventri cular [...] multiple joints Start: 01-28-2025 End: 01-28-2025 ambulatory [facility] Start: 01-07-2025 End: 01-07-2025 ambulatory [facility] Start: 12-26-2024 End: 12-26-2024 ambulatory [facility] Start: 12-06-2024 ambulatory FELISHA DE OLIVEIRA SEBASTIÁN LACY Facility:[facility] Start: 11-27-2024 End: 11-27-2024 ambulatory [facility] Start: 11-12-2024 End: 11-12-2024 Subsequent hospital visit by physician Javier [facility] 3 Device Remote [facility] 3 Comment on above: Complete atrioventri cular block (Multi); Presence of cardiac pacemaker Start: 11-12-2024 End: 11-12-2024 ambulatory [facility] Start: 11-11-2024 End: 11-11-2024 ambulatory [facility] Start: 10-28-2024 End: 10-28-2024 Patient encounter [...] encounter status Ronit Doan DO Work Phone: [facility] Start: 10-28-2024 End: 10-28-2024 ambulatory [facility] Start: 10-28-2024 End: 10-28-2024 Encounter for general adult medical examination without abnormal findings [facility] Start: 10-28-2024 Encounter for genera l adult medical examination without abnormal findings [facility] Start: 10-10-2024 End: 10-10-2024 ambulatory [facility] Start: 10-08-2024 End: 11-04-2024 ambulatory [facility] Facility[facility] Start: 10-08-2024 End: 10-08-2024 ambulatory [facility] Facility:[facility] Start: 10-01-2024 End: 10-05-2024 ambulatory [facility] Facility:[facility] Start: 09-26-2024 End: 09-26-2024 ambulatory [facility] Start: 09-12-2024 End: 09-12-2024 ambulatory [facility] Start: 09-11-2024 End: 09-11-2024 Office outpatient visit 15 minutes Jaylon Rita Work Phone: [place] [phone] Comment on above: Carotid stenosis, bi lateral Start: 09-11-2024 End: 09-11-2024 ambulatory [facility] Start: 08-26-2024 End: 08-26-2024 Refill Héctor Fairchild MD Work Phone: Pain Management Start: 08-24-2024 End: 08-24-2024 ambulatory Marnie Fairchild MD Work Phone: [facility] Provider Adult Start: 08-24-2024 End: 08-24-2024 Patient encounter procedure Marnie Fairchild MD Work Phone: [facility] Start: 08-23-2024 End: 08-23-2024 Telephone encounter Héctor Fairchild Work Phone: Pain Management Comment on above: Refill Request Start: 08-22-2024 End: 08-22-2024 Subsequent hospital visit by physician Jaya [facility] 2 [facility] Comment on above: Carotid stenosis; Carotid stenosis, bilateral; Occlusion and stenosis of left carotid artery Start: 08-22-2024 End: 08-22-2024 ambulatory [facility] Start: 08-13-2024 End: 08-13-2024 Subsequent hospital visit by physician Javier [facility] 3 Device Remote [facility] 3 Comment on above: Paroxysmal atrial fi brillation (Multi); Complete atrioventricular block (Multi); Presence of cardiac pacemaker Start: 08-13-2024 End: 08-13-2024 ambulatory [facility] Start: 08-12-2024 End: 08-12-2024 ambulatory [facility] Start: 08-09-2024 End: 08-09-2024 Emergency department patient visit RONIT MOSESJoni Facility:[id number] Start: 07-29-2024 End: 07-29-2024 ambulatory [facility] Start: 07-24-2024 End: 07-24-2024 ambulatory Nawaf Mccarthy Facility:[facility] Start: 07-22-2024 End: 07-22-2024 Office outpatient visit 25 minutes Ronit Doan DO Work Phone: [facility] Comment on above: Hypercholesterolemia (Primary Dx); Essential hypertension; Type 2 diabetes mellitus with hypoglycemia without coma, without long-term current use of insulin; Permanent atrial fibrillation (Multi); Medication monitoring encounter Start: 07-22-2024 End: 07-22-2024 ambulatory [facility] Start: 07-17-2024 ambulatory Nawaf Mccarthy Facility :[facility] Start: 07-17-2024 Non-patient / Non-visit Dr. Hari [facility] Start: 07-17-2024 End: 07-17-2024 Admission to same day surgery center Dr. Nawaf Mccarthy MD [facility] Start: 07-17-2024 End: 07-17-[address] Ronit Doan DO Work Phone: [facility] Work Phone: Start: 07-11-2024 End: 07-11-[address] Nawaf Mcacrthy MD -[facility] Work Phone: Start: 07-11-2024 End: 07-11-2024 ambulatory Nawaf Mccarthy Facility:[facility] Start: 07-05-2024 End: 07-05-2024 Subsequent hospital visit by physician Javier Glover Ultrasound 2 [facility] Comment on above: Palpable mass of kellie ast; Unspecified lump in the right breast, upper inner quadrant Start: 07-05-2024 End: 07-05-2024 ambulatory [facility] Start: 07-05-2024 End: 07-05-2024 Subsequent hospital visit by physician Javier Glover Mammo 1 [facility] Comment on above: Breast pain Start: 07-05-2024 End: 07-05-2024 ambulatory [facility] Start: 07-04-2024 End: 07-04-2024 ambulatory [facility] Start: 06-20-2024 End: 06-20-2024 Office outpatient visit 25 minutes Ronit Mosesjoni DO Work Phone: [facility] Comment on above: Mass of upper inner quadrant of right breast (Primary Dx); Warfarin-induced coagulopathy (Multi); Permanent atrial fibrillation (Multi); On warfarin therapy Start: 06-20-2024 End: 06-20-2024 ambulatory [facility] Start: 06-11-2024 End: 06-11-2024 [facility] Start: 05-24-2024 End: 05-24-2024 Office outpatient visit 25 minutes Timothy Palacio DO Work Phone: [facility] Comment on above: High risk medication use (Primary Dx); Complete atrioventricular block (Multi); Presence of cardiac pacemaker; Permanent atrial fibrillation (Multi); Chronic heart failure with preserved ejection fraction Start: 05-24-2024 End: 05-24-2024 ambulatory TIMOTHY PALACIO [facility] Start: 05-21-2024 End: 05-21-2024 ambulatory [facility] Start: 05-15-2024 End: 05-15-2024 Subsequent hospital visit by physician Keeley Palacio [facility] Comment on above: Atrioventricular blo ck, complete (Multi) Start: 05-15-2024 End: 05-15-2024 ambulatory TIMOTHY Perez [facility] Start: 04-23-2024 End: 04-23-2024 Office outpatient visit 25 minutes Ronit Doan DO Work Phone: [facility] Comment on above: Hypercholesterolemia (Primary Dx); Paroxysmal atrial fibrillation (Multi); Type 2 diabetes mellitus without complication, without long-term current use of insulin (Multi); Spinal stenosis of lumbar region with neurogenic claudication; Essential hypertension Start: 04-23-2024 End: 04-23-2024 ambulatory [facility] Start: 04-23-2024 End: 04-23-2024 ambulatory [facility] Start: 03-25-2024 End: 03-25-2024 ambulatory [facility] Start: 02-16-2024 End: 02-16-2024 ambulatory [facility] Start: 02-13-2024 End: 02-13-2024 Subsequent hospital visit by physician Javier [facility] 3 Device Remote [facility] [employer] [facility] 3 Comment on above: Sinoatrial node dysf unction (Multi); Presence of cardiac pacemaker Start: 02-09-2024 End: 02-09-2024 ambulatory [facility] Start: 01-29-2024 End: 01-29-2024 Office outpatient visit 25 minutes Ronit Doan DO Work Phone: [facility] Comment on above: Paroxysmal atrial fi brillation (Multi) (Primary Dx); Acute cough; Acute on chronic diastolic (congestive) heart failure (Multi); Warfarin-induced coagulopathy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 [facility] Start: 04-22-2025 Hemoglobin A1c measurement Diabetes: Hemoglobin A1C [facility] Start: 04-21-2025 End: 04-21-2025 Patient encounter procedure 04/21/2025 11:00 AM EST Office Visit [facility] [address] [place] [phone] Timothy Palacio, DO [address] [place] [address] [facility] Start: 04-02-2025 End: 04-02-2025 Patient encounter procedure 04/02/2025 11:30 AM EST Appointment [facility] [address] [employer] [facility] [address] [place] [address] [facility] 3 Start: 03-29-2025 Glaucoma screening Diabetes: R etinopathy Screening [facility] Start: 03-25-2025 End: 03-25-2025 Patient encounter procedure 03/25/2025 2:30 PM EST Office Visit [facility] [address] [place] [phone] Crispin Yanez MD PhD [address] [place], [place] [phone] [facility] Start: 03-13-2025 End: 03-13-2025 Clinical Support 03/13/2025 1:30 PM EST Clinical Support [facility] [place] [phone] [facility] Start: 02-17-2025 End: 02-17-2025 Clinical Support 02/17/2025 11:00 AM EDT Clinical Support [facility] [address] [place] [address] [facility] Start: 01-28-2025 End: 01-28-2026 Basic metabolic 2000 panel - Serum or Plasma Basic metabolic panel Lab Routine Essential hypertension Type 2 diabetes mellitus with hypoglycemia without coma, without long-term current use of insulin Expected: 01/28/2025 (Approximate), Expires: 01/28/2026 [facility] Work Phone: Comment on above: Expected: 01/28/2025 (Approximate), Expires: 01/28/2026 Start: 01-28-2025 End: 01-28-2026 Hemoglobin A1c/Hemoglobin.total in Blood Hemoglobin A1C Lab Routine Essential hypertension Type 2 diabetes mellitus with hypoglycemia without coma, without long-term current use of insulin Expected: 01/28/2025 (Approximate), Expires: 01/28/2026 [facility] Service Area Work Phone: Comment on above: Expected: 01/28/2025 (Approximate), Expires: 01/28/2026 Start: 01-28-2025 End: 01-28-2025 Patient encounter procedure 01/28/2025 1:00 PM EDT Office Visit [facility] [address] [place] [address] Ronit Doan DO [address] [facility], [address] [place] [address] [facility] Start: 01-21-2025 Hemoglobin A1c measurement Diabetes: Hemoglobin A1C [facility] Start: 01-06-2025 COVID-19 Vaccine ( season) COVID-19 Vaccine ( season) [facility] Start: 01-06-2025 Influenza vaccination Influenza Vacc ine (#1) [facility] Start: 12-27-2024 Glaucoma screening Diabetes: R etinopathy Screening [facility] Start: 12-09-2024 End: 12-09-2024 Patient encounter procedure 12/09/2024 11:15 AM EDT Office Visit [facility] [employer] [facility] [address] [facility] [address] [place] [phone] Charline Hagen DO [address] [facility] 3, [address] [place], [place] [phone] [facility] 3 Start: 11-27-2024 End: 11-27-2024 Clinical Support 11/27/2024 11:00 AM EDT Clinical Support [facility] [address] [facility] [address] [place] [phone] [facility] Start: 11-20-2024 BP Controlled (<130/80) BP Controlled (<130/80) [facility] Start: 11-11-2024 End: 11-11-2024 Clinical Support 11/11/2024 1:30 PM EDT Clinical Support [facility] [address] [place] [phone] [facility] Start: 10-28-2024 End: 10-28-2024 Patient encounter procedure 10/28/2024 2:15 PM EDT Office Visit [facility] [place] [phone] Ronit Doan DO [address] [facility], [address] [place] [address] [facility] Start: 10-22-2024 Hemoglobin A1c measurement Diabetes: Hemoglobin A1C [facility] Start: 09-12-2024 End: 09-12-2024 Clinical Support 09/12/2024 10:30 AM EDT Clinical Support [facility] [address]ll [address] [place] [phone] [facility] Start: 09-11-2024 End: 09-11-2024 Patient encounter procedure 09/11/2024 11:00 AM EDT Office Visit [facility] 2 [address] [facility] [address] 2 [facility] [address] [place] [phone] Jaylon Kiser DO [address] [facility] [address] [place] [address] [facility] 2 Start: 08-29-2024 Glaucoma screening Diabetes: R etinopathy Screening [facility] Start: 08-22-2024 End: 08-22-2024 Patient encounter procedure 08/22/2024 10:30 AM EDT Appointment [facility] [address] [place] [address] [facility] Start: 08-21-2024 End: 08-23-2025 US.doppler Carotid arteries - bilateral Vascular US carotid artery duplex bilateral Vascular Ultrasound Routine Carotid stenosis Carotid stenosis, bilateral Expected: 08/21/2024 (Approximate), Expires: 08/23/2025 [facility] Service Area Work Phone: Comment on above: Expected: 08/21/2024 (Approximate), Expires: 08/23/2025 Start: 07-25-2024 End: 07-25-2024 Clinical Support 07/25/2024 10:30 AM EDT Clinical Support [facility] [address] [place] [phone] [facility] Start: 07-22-2024 End: 07-22-2025 CBC panel - Blood by Automated count CBC Lab Routine Medication monitoring encounter Expected: 07/22/2024 (Approximate), Expires: 07/22/2025 [facility] Work Phone: Comment on above: Expected: 07/22/2024 (Approximate), Expires: 07/22/2025 Start: 07-22-2024 End: 07-22-2025 Comprehensive metabolic 2000 panel - Serum or Plasma Comprehensive Metabolic Panel Lab Routine Hypercholesterolemia Essential hypertension Expected: 07/22/2024 (Approximate), Expires: 07/22/2025 [facility] Service Area Work Phone: Comment on above: Expected: 07/22/2024 (Approximate), Expires: 07/22/2025 Start: 07-22-2024 Hemoglobin A1c measurement Diabetes: Hemoglobin A1C [facility] Start: 07-22-2024 End: 07-22-2025 Hemoglobin A1c/Hemoglobin.total in Blood Hemoglobin A1C Lab Routine Type 2 diabetes mellitus with hypoglycemia without coma, without long-term current use of insulin Expected: 07/22/2024 (Approximate), Expires: 07/22/2025 [facility] Work Phone: Comment on above: Expected: 07/22/2024 (Approximate), Expires: 07/22/2025 Start: 07-22-2024 End: 07-22-2025 Lipid 1996 panel - Serum or Plasma Lipid Panel Lab Routine Hypercholesterolemia Essential hypertension Expected: 07/22/2024 (Approximate), Expires: 07/22/2025 [facility] Work Phone: Comment on above: Expected: 07/22/2024 (Approximate), Expires: 07/22/2025 Start: 07-17-2024 [facility] Start: 07-16-2024 End: 07-16-2024 Patient encounter procedure 07/16/2024 1:00 PM EDT Office Visit [facility] [place] [phone] Ronit Doan DO [address] [facility], [address] [place] [address] [facility] Start: 07-04-2024 End: 07-04-2024 Clinical Support 07/04/2024 10:30 AM EST Clinical Support [facility] [place] [phone] [facility] Start: 06-21-2024 Creatinine measurement Creatinine Le rocio [facility] Start: 06-21-2024 Hepatitis B screening Urine Al bumin:Creatinine Ratio [facility] Start: 06-21-2024 Hepatitis B surface antibody level LDL Cholesterol [facility] Start: 06-21-2024 Lipid panel Lipid Panel [facility] Start: 06-21-2024 Potassium measurement Potassium Leve l [facility] Start: 06-21-2024 Screening for malignant neoplasm of breast [facility] Start: 06-21-2024 Urine screening for protein Diabetes: Urine Protein Screening [facility] Start: 06-20-2024 End: 06-20-2024 Clinical Support 06/20/2024 10:30 AM EST [facility] [address] [place] [phone] [facility] Start: 06-13-2024 BP Controlled (<130/80) BP Controlled (<130/80) [facility] Start: 06-11-2024 End: 06-11-2024 Patient encounter procedure 06/11/2024 2:00 PM EST Office Visit [facility] 3 [address] [facility] [address] 3 [facility] [address] [place] [phone] Charline Hagen, DO [address], [address] [place], [place] [phone] [facility] 3 Start: 06-08-2024 Medicare Annual Wellness Visit Medicare Annual Wellness Visit (AWV) [facility] Start: 06-06-2024 Screening for osteoporosis Bone Density Scan [facility] Start: 05-24-2024 End: 05-24-2024 Patient encounter procedure 05/24/2024 10:45 AM EST Office Visit [facility] [address] [place] [phone] Timothy Palacio, DO [address], [address] [place], [place] [phone] [facility] Start: 05-21-2024 End: 05-21-2024 Clinical Support 05/21/2024 11:00 AM EST Clinical Support [facility] [address] [place] [phone] [facility] Start: 05-16-2024 End: 05-16-2024 Patient encounter procedure 05/16/2024 1:45 PM EST Office Visit [facility] 3 [address] [facility] [address] [place] [phone] Charline Hagen, [address] [facility] 3, [address] [place] [address] [facility] 3 Start: 05-08-2024 Advance Directive Discussion Advance Directive Discussion [facility] Start: 04-24-2024 Creatinine measurement Creatinine [facility] Start: 04-24-2024 Potassium measurement Potassium Leve l [facility] Start: 04-23-2024 End: 04-23-2024 Patient encounter procedure 04/23/2024 11:00 AM EST Office Visit [facility] [address] [place] [phone] Ronit Doan DO [address] [facility], [address] [place] [address] [facility] Start: 04-07-2024 Creatinine measurement Creatinine [facility] Start: 04-07-2024 Echocardiography Echocardiogram [facility] Start: 04-07-2024 Potassium measurement Potassium Leve l [facility] Start: 02-16-2024 End: 02-16-2024 Anticoagulant drug monitoring 02/16/2024 11:30 AM EDT Anticoagulation - Warfarin Visit [facility] [address] [place] [phone] [facility] Start: 02-11-2024 Diabetes mellitus screening Diabetes Screening [facility] Start: 02-11-2024 Hemoglobin A1c measurement Diabetes: Hemoglobin A1C [facility] Start: 01-30-2024 End: 01-30-2024 Anticoagulant drug monitoring 01/30/2024 10:45 AM EDT Anticoagulation - Warfarin Visit [facility] [address] [address] [facility] Start: 01-29-2024 End: 01-29-2024 Patient encounter procedure [facility] Start: 01-07-2024 Covid-19 Vaccine () Covid-19 Vaccine () [facility] Start: 01-07-2024 Influenza vaccination Influenza Vacc ine (#1) [facility] Start: 12-20-2023 Hemoglobin A1c measurement HbA1C [facility] Start: 12-05-2023 End: 12-05-2023 Anticoagulant drug monitoring 12/05/2023 11:00 AM EDT Anticoagulation - Warfarin Visit [facility] [address] [place] [address] [facility] Start: 11-14-2023 End: 11-14-2023 Patient encounter procedure 11/14/2023 1:00 PM EDT Office Visit [facility] 3 [address] [facility] 3 [address] [place] [phone] Charline Hagen, [address] [facility] 3, [address] [place] [address] [facility] 3 Start: 11-10-2023 End: 11-10-2023 Anticoagulant drug monitoring 11/10/2023 11:00 AM EDT Anticoagulation - Warfarin Visit [facility] [address] [address] [facility] Start: 11-08-2023 End: 11-08-2023 Patient encounter procedure 11/08/2023 8:45 AM EDT Office Visit [facility] [address] [place] [address] Héctor Fairchild MD [address] [facility] [place] [address] follow up Pain Management Comment on above: follow up Start: 10-17-2023 End: 10-17-2023 Anticoagulant drug monitoring 10/17/2023 10:30 AM EDT Anticoagulation - Warfarin Visit [facility] [address] [place] [phone] [facility] Start: 10-16-2023 End: 10-16-2023 Patient encounter procedure 10/16/2023 11:15 AM EDT Office Visit [facility] [address] [place] [phone] Timothy Palacio, DO [address] [facility] 3, [address] [place] [address] [facility] Start: 09-26-2023 End: 09-26-2023 Patient encounter procedure 09/26/2023 3:15 PM EDT Office Visit [facility] [address] [place] [phone] Ronit Doan, DO [address] [facility], [facility] [address] [place], [place] [phone] [facility] Start: 09-26-2023 End: 09-25-2024 CBC panel - Blood by Automated count CBC Lab Routine Medication monitoring encounter Expected: 09/26/2023 (Approximate), Expires: 09/25/2024 [facility] Work Phone: Comment on above: Expected: 09/26/2023 (Approximate), Expires: 09/25/2024 Start: 09-26-2023 End: 09-25-2024 Comprehensive metabolic 2000 panel - Serum or Plasma Comprehensive Metabolic Panel Lab Routine Essential hypertension Expected: 09/26/2023 (Approximate), Expires: 09/25/2024 [facility] Work Phone: Comment on above: Expected: 09/26/2023 (Approximate), Expires: 09/25/2024 Start: 09-26-2023 End: 09-25-2024 Hemoglobin A1c/Hemoglobin.total in Blood Hemoglobin A1C Lab Routine Type 2 diabetes mellitus with hyperglycemia, without long-term current use of insulin (Multi) Expected: 09/26/2023 (Approximate), Expires: 09/25/2024 [facility] Service Area Work Phone: Comment on above: Expected: 09/26/2023 (Approximate), Expires: 09/25/2024 Start: 09-26-2023 End: 09-25-2024 Lipid 1996 panel - Serum or Plasma Lipid Panel Lab Routine Essential hypertension Expected: 09/26/2023 (Approximate), Expires: 09/25/2024 [facility] Work Phone: Comment on above: Expected: 09/26/2023 (Approximate), Expires: 09/25/2024 Start: 09-19-2023 Hemoglobin A1c measurement Diabetes: Hemoglobin A1C [facility] Start: 09-19-2023 End: 09-19-2023 Anticoagulant drug monitoring 09/19/2023 11:00 AM EDT Anticoagulation - Warfarin Visit [facility] [address] [place] [address] [facility] Start: 09-01-2023 End: 09-01-2023 Patient encounter procedure 09/01/2023 1:30 PM EDT Office Visit [facility] [address] [place] [phone] Ronit Doan DO [address] [facility], [place] [address] [place] [address] [facility] Start: 08-24-2023 FUV, Provider: Jaylon Kiser, Status: Pen, Time: 11:20 AM FUV, Provider: Jaylon Kiser, Status: Pen, Time: 11:20 AM -[facility] [address] Work Phone: Start: 08-24-2023 End: 08-24-2023 Patient encounter procedure 08/24/2023 11:20 AM EDT Office Visit [facility] 2 [address] [employer] [address] [place] [phone] Jaylon Kiser M, DO 6[address] [facility] 202 [facility] [place] [address] [facility] 2 Start: 08-22-2023 End: 08-22-2023 Patient encounter procedure 08/22/2023 3:30 PM EDT Appointment [facility] 3 [address] [email or web address] [address] [place] [phone] [facility] 3 Start: 08-22-2023 End: 08-22-2023 Anticoagulant drug monitoring 08/22/2023 11:15 AM EDT Anticoagulation - Warfarin Visit [facility] [address] [place] [phone] [facility] Start: 08-17-2023 Creatinine measurement Creatinine Le rocio [facility] Start: 08-17-2023 Hepatitis B surface antibody level LDL Cholesterol [facility] Start: 08-17-2023 Lipid panel Lipid Panel [facility] Start: 08-17-2023 Potassium measurement Potassium Leve l [facility] Start: 08-15-2023 End: 08-15-2023 Patient encounter procedure 08/15/2023 1:00 PM EDT Appointment [place] [employer] [facility] 3 [address] [employer] [address] [place] [phone] [facility] 3 Start: 08-15-2023 End: 08-15-2023 Anticoagulant drug monitoring 08/15/2023 10:00 AM EDT Anticoagulation - Warfarin Visit [facility] [place] [address] [facility] Start: 08-14-2023 End: 08-14-2023 Patient encounter procedure 08/14/2023 11:30 AM EDT Appointment [facility] [address] [place] [address] [facility] Start: 08-12-2023 Hemoglobin A1c measurement HbA1C [facility] Start: 07-24-2023 Screening for malignant neoplasm of colon [facility] Start: 07-21-2023 Glaucoma screening Diabetes: R etinopathy Screening [facility] Start: 07-21-2023 Ophthalmic examinati on and evaluation Diabetes: Retinopathy Screening [facility] Start: 07-19-2023 End: 07-19-2023 Anticoagulant drug monitoring 07/19/2023 11:00 AM EDT Anticoagulation - Warfarin Visit [facility] [address] [place] [address] [facility] Start: 06-21-2023 End: 06-21-2023 Patient encounter procedure 06/21/2023 8:30 AM EST Appointment [facility] [address] [place] [address] [facility] Start: 06-20-2023 End: 06-20-2023 Anticoagulant drug monitoring 06/20/2023 11:00 AM EST Anticoagulation - Warfarin Visit [facility] [address]arell [address] [place] [address] [facility] Start: 06-07-2023 End: 06-07-2024 Comprehensive metabolic 2000 panel - Serum or Plasma Comprehensive Metabolic Panel Lab Routine Essential hypertension Expected: 06/07/2023 (Approximate), Expires: 06/07/2024 [facility] Work Phone: Comment on above: Expected: 06/07/2023 (Approximate), Expires: 06/07/2024 Start: 06-07-2023 End: 06-07-2024 Creatinine [Mass/volume] in Urine Creatinine, Urine Random Lab Routine Type 2 diabetes mellitus with hyperglycemia, without long-term current use of insulin (CMS/HCC) Expected: 06/07/2023 (Approximate), Expires: 06/07/2024 [facility] Work Phone: Comment on above: Expected: 06/07/2023 (Approximate), Expires: 06/07/2024 Start: 06-07-2023 End: 08-05-2024 DBT Breast - bilateral BI mammo bilateral screening tomosynthesis Imaging Routine Visit for screening mammogram Expected: 06/07/2023, Expires: 08/05/2024 [facility] Work Phone: Comment on above: Expected: 06/07/2023 , Expires: 08/05/2024 Start: 06-07-2023 End: 06-07-2024 Hemoglobin A1c/Hemoglobin.total in Blood Hemoglobin A1C Lab Routine Type 2 diabetes mellitus with hyperglycemia, without long-term current use of insulin (CMS/[facility]) Expected: 06/07/2023 (Approximate), Expires: 06/07/2024 [facility] Service Area Work Phone: Comment on above: Expected: 06/07/2023 (Approximate), Expires: 06/07/2024 Start: 06-07-2023 End: 06-07-2024 Lipid 1996 panel - Serum or Plasma Lipid Panel Lab Routine Essential hypertension Expected: 06/07/2023 (Approximate), Expires: 06/07/2024 [facility] Work Phone: Comment on above: Expected: 06/07/2023 (Approximate), Expires: 06/07/2024 Start: 06-07-2023 End: 06-07-2024 Microalbumin/Creatinin e [Mass Ratio] in Urine Albumin , Urine Random Lab Routine Type 2 diabetes mellitus with hyperglycemia, without long-term current use of insulin (CMS/HCC) Expected: 06/07/2023 (Approximate), Expires: 06/07/2024 [facility] Work Phone: Comment on above: Expected: 06/07/2023 (Approximate), Expires: 06/07/2024 Start: 06-07-2023 End: 06-07-2023 Patient encounter procedure 06/07/2023 1:30 PM EST Office Visit [facility] [address] [place] [phone] Ronit Doan DO [address] [facility], [address] [place] [address] [facility] Start: 06-06-2023 Screening for malignant neoplasm of breast Mammogram [facility] Start: 06-02-2023 End: 06-02-2023 Anticoagulant drug monitoring 06/02/2023 11:00 AM EST Anticoagulation - Warfarin Visit [facility] [address] [place] [address] [facility] Start: 05-23-2023 End: 05-23-2023 Anticoagulant drug monitoring 05/23/2023 10:15 AM EST Anticoagulation - Warfarin Visit [facility] [address] [place] [phone] [facility] Start: 05-16-2023 End: 05-16-2023 Patient encounter procedure 05/16/2023 2:45 PM EST Office Visit [facility] 3 [address] [facility] [address] [place] [phone] Charline Hagen DO [address] [employer] [facility] 3, [address] [place] [address] [facility] 3 Start: 2023 Hemoglobin A1c measurement Diabetes: Hemoglobin A1C [facility] Start: 05-08-2023 Advance Directive Discussion Advance Directive Discussion [facility] Start: 05-08-2023 Behavioral Health Screening Behavioral Health Screening [facility] Start: 05-08-2023 Depression Assessment Depression Ass essment [facility] Start: 04-26-2023 End: 04-26-2023 Anticoagulant drug monitoring 04/26/2023 1:00 PM EST Anticoagulation - Warfarin Visit [facility] [address] [place] [phone] [facility] Start: 04-24-2023 End: 04-24-2023 Patient encounter procedure 04/24/2023 10:15 AM EST Office Visit [facility] 3 [address] [employer] [facility] 3 [address] [place] [phone] Charline Hagen, DO [address], [address] [place], [place] [phone] [facility] 3 Start: 04-19-2023 End: 04-19-2023 Anticoagulant drug monitoring 04/19/2023 3:30 PM EST Anticoagulation - Warfarin Visit [facility] [address] [place] [phone] [facility] Start: 04-19-2023 End: 04-19-2023 Patient encounter procedure 04/19/2023 2:45 PM EST Office Visit [facility] [address] [place] [phone] Timothy Palacio, DO [address] [facility] 3, [facility] [address] [place], [place] [phone] [facility] Start: 04-17-2023 EPV, Provider: Charline Hagen, Status: Pen, Time: 10:45 AM EPV, Provider: Charline Hagen, Status: Mane, Time: 10:45 AM [id number] Work Phone: Start: 04-17-2023 End: 04-17-2023 Patient encounter procedure 04/17/2023 10:45 AM EST Office Visit [facility] 3 [address] [employer] [facility] 3 [address] [place] [phone] Charline Hagen, DO [address] [employer] [address], [address] [place] [address] [facility] 3 Start: 04-15-2023 Medicare Annual Wellness Visit Medicare Annual Wellness Visit (AWV) [facility] Start: 04-07-2023 End: 04-07-2023 Patient encounter procedure 04/07/2023 11:00 AM EST Appointment [facility] [address] [place] [phone] [facility] Start: 03-29-2023 End: 03-29-2023 Anticoagulant drug monitoring 03/29/2023 10:30 AM EST Anticoagulation - Warfarin Visit [facility] [address] [place] [address] [facility] Start: 02-17-2023 End: 02-17-2023 Patient encounter procedure 02/17/2023 1:30 PM EDT Office Visit [facility] [address] [place] [phone] Ronit Doan DO [address] [facility], [facility] [address] [place] [address] [facility] Start: 02-01-2023 Hemoglobin A1c measurement Diabetes: Hemoglobin A1C [facility] Start: 02-01-2023 Patient encounter procedure FUVCOANacho, Provider: MED CARDIO COAG CLINICELIUD CHASE, Status: Pen, Time: 10:30 AM [facility] Work Phone: Start: 01-30-2023 FUV, Provider: Timothy Palacio, Status: Pen, Time: 10:45 AM FUV, Provider: Timothy Palacio, Status: Pen, Time: 10:45 AM [facility] Vas [facility] [address] Work Phone: Start: 01-18-2023 Patient encounter procedure LUKEOANacho, Provider: JAZLYN CARDIO COAG CLINICELIUD CHASE, Status: Pen, Time: 2:15 PM [facility] Work Phone: Start: 01-06-2023 Covid-19 Vaccine ( season) Covid-19 Vaccine ( season) [facility] Start: 01-06-2023 Influenza vaccination [facility] Start: 12-28-2022 Patient encounter procedure FUVCOAG, Provider: JAZLYN CARDIO COAG ELIUD LI, Status: Pen, Time: 10:45 AM [facility] Work Phone: Start: 12-20-2022 Patient encounter procedure FUVCOANacho, Provider: JAZLYN [facility]ARDIO [facility], Status: Pen, Time: 10:45 AM [facility] Work Phone: Start: 11-15-2022 Hemoglobin A1c measurement Diabetes: Hemoglobin A1C [facility] Start: 11-15-2022 Patient encounter procedure FUVCOAG, Provider: JAZLYN [facility]ARDIO [facility] LI, Status: Pen, Time: 10:30 AM [id number] Work Phone: Start: 11-11-2022 End: 11-12-2023 Hemoglobin A1c/Hemoglobin.total in Blood Hemoglobin A1c Lab Routine Elevated glucose Expected: 11/11/2022 (Approximate), Expires: 11/12/2023 [facility] Service Area Work Phone: Comment on above: Expected: 11/11/2022 (Approximate), Expires: 11/12/2023 Start: 11-11-2022 End: 11-11-2022 Patient encounter procedure 11/11/2022 1:30 PM EDT Office Visit [facility] [address] [phone] Ronit Doan DO [address] [facility], [facility] [address] [place] [address] [facility] Start: 10-26-2022 PACVIRTUAL, Provider : MORIAH SHETH REMOTE PACEMAKER,[id number], Status: Pen, Time: 7:30 AM PACVIRTUAL, Provider: MORIAH MAC3 REMOTE PACEMAKER,[id number], Status: Pen, Time: 7:30 AM [facility] Work Phone: Start: 10-14-2022 EPV, Provider: Charline Hagen, Status: Mane, Time: 11:00 AM EPV, Provider: Charline Hagen, Status: Pen, Time: 11:00 AM [facility] Work Phone: Start: 10-11-2022 Patient encounter procedure FUVCOAG, Provider: JAZLYN CARDIO COAG [facility], Status: Mane, Time: 1:45 PM [facility] Work Phone: Start: 10-04-2022 End: 10-05-2023 Hemoglobin A1c/Hemoglobin.total in Blood Hemoglobin A1C Lab Routine Prediabetes Expected: 10/04/2022 (Approximate), Expires: 10/05/2023 [facility] Service Area Work Phone: Comment on above: Expected: 10/04/2022 (Approximate), Expires: 10/05/2023 Start: 10-04-2022 End: 10-05-2023 TSH with reflex to Free T4 if abnormal TSH with reflex to Free T4 if abnormal Lab Routine Prediabetes Expected: 10/04/2022 (Approximate), Expires: 10/05/2023 [facility] Work Phone: Comment on above: Expected: 10/04/2022 (Approximate), Expires: 10/05/2023 Start: 10-04-2022 EPV, Provider: Charline Hagen, Status: Mane, Time: 10:45 AM EPV, Provider: Charline Hagen, Status: Mane, Time: 10:45 AM [facility] Work Phone: Start: 09-21-2022 Patient encounter procedure FUVCOAG, Provider: JAZLYN CARDIO COAG [facility], Status: Pen, Time: 11:30 AM [facility] [address] Work Phone: Start: 09-16-2022 Creatinine measurement Creatinine Le rocio [facility] Start: 09-16-2022 Lipid panel Lipid Panel [facility] Start: 09-16-2022 Potassium measurement Potassium Leve l [facility] Start: 09-15-2022 FUV, Provider: Jaylon Kiser, Status: Pen, Time: 10:40 AM FUV, Provider: Jaylon Kiser, Status: Pen, Time: 10:40 AM [facility] Work Phone: Start: 09-14-2022 Patient encounter procedure FUVCOAG, Provider: JAZLYN CARDIO COAG CLINICELIUD CHASE, Status: Pen, Time: 11:30 AM [facility] Work Phone: Start: 09-06-2022 Patient encounter procedure FUVCOAG, Provider: JAZLYN CARDIO COAG ELIUD LI, Status: Pen, Time: 10:45 AM [facility] Work Phone: Start: 08-30-2022 Patient encounter procedure FUVCOAG, Provider: JAZLYN CARDIO COAG CLINICELIUD CHASE, Status: Pen, Time: 10:45 AM [facility] Work Phone: Start: 08-19-2022 Patient encounter procedure FUVCOAG, Provider: JAZLYN CARDIO COAG ELIUD LI, Status: Pen, Time: 10:30 AM [facility] Work Phone: Start: 08-18-2022 FUV, Provider: Jaylon Kiser, Status: Pen, Time: 11:10 AM FUV, Provider: Jaylon Kiser, Status: Mane, Time: 11:10 AM [facility] Work Phone: Start: 08-11-2022 End: 08-12-2023 Hemoglobin A1c/Hemoglobin.total in Blood Hemoglobin A1c Lab Routine Hyperglycemia Expected: 08/11/2022 (Approximate), Expires: 08/12/2023 [facility] Service Area Work Phone: Comment on above: Expected: 08/11/2022 (Approximate), Expires: 08/12/2023 Start: 08-11-2022 End: 08-12-2023 Opiate/Opioid/Benzo Extended Prescription Compliance Opiate/Opioid/Benzo Extended Prescription Compliance Lab Routine Medication monitoring encounter Expected: 08/11/2022 (Approximate), Expires: 08/12/2023 [facility] Work Phone: Comment on above: Expected: 08/11/2022 (Approximate), Expires: 08/12/2023 Start: 08-11-2022 FUV, Provider: Ronit Doan, Status: Pen, Time: 9:30 AM FUV, Provider: Ronit Doan, Status: Pen, Time: 9:30 AM Medical Simulation-Internal Medicine [employer] Work Phone: Start: 08-08-2022 Patient encounter procedure CAROTID, Provider: JAYA VASC LAB ROOM 2 OUTPATIENT,MG VASC, Status: Pen, Time: 11:00 AM QS-Dozm[facility]uluua-Pdk[facility] Work Phone: Start: 08-04-2022 Patient encounter procedure CAROTID, Provider: JAYA VASC LAB ROOM 2 OUTPATIENT,MG VASC, Status: Pen, Time: 11:00 AM [employer] Work Phone: Start: 07-06-2022 Hemoglobin A1c measurement Diabetes: Hemoglobin A1C [facility] Start: 05-08-2022 Advance Directive Discussion Advance Directive Discussion [facility] Start: 05-08-2022 Depression Assessment Depression Ass essment [facility] Start: 04-14-2022 Patient encounter procedure MCRANNUAL, Provider: Ronit Doan, Status: Pen, Time: 9:30 AM [employer] Work Phone: Start: 03-21-2022 EPV, Provider: Charline Hagen, Status: Pen, Time: 11:00 AM EPV, Provider: Charline Hagen, Status: Pen, Time: 11:00 AM GV-Xtnvyyaqkr[facility] Work Phone: Start: 03-09-2022 POV, Provider: Yg López, Status: Pen, Time: 1:00 PM POV, Provider: Yg óLpez, Status: Pen, Time: 1:00 PM [facility] Work Phone: Start: 03-08-2022 Echocardiography Echocardiogram [facility] Start: 03-01-2022 [facility], Provider: Yg López, Status: Pen, Time: 8:00 AM [facility], Provider: Yg López, Status: Pen, Time: 8:00 AM [facility] Work Phone: Start: 02-17-2022 FUV, Provider: Jaylon Kiser, Status: Pen, Time: 11:00 AM FUV, Provider: Jaylon Kiser, Status: Pen, Time: 11:00 AM [facility] Vas [facility] Work Phone: Start: 02-07-2022 FUV, Provider: Timothy Palacio, Status: Pen, Time: 9:30 AM FUV, Provider: Timothy Palacio, Status: Pen, Time: 9:30 AM BS-Jkyfzxhxmy-Xzicaa [facility] Work Phone: Start: 02-07-2022 Patient encounter procedure Outpatient Cardiology [facility] [id number] [facility] [id number] Start: 07-Feb-2022 9:30 Timothy Palacio [facility] Start: 02-01-2022 CAROTID, Provider: Jerome ALFONSO 3 MAC 03 VASCULAR LAB,MG VASC, Status: Pen, Time: 10:30 AM CAROTID, Provider: JAYA 3 MAC 03 VASCULAR LAB,MG VASC, Status: Pen, Time: 10:30 AM MM-Ikvhfaxqgq-Qouat Work Phone: Start: 01-17-2022 FUV, Provider: Ronit Doan, Status: Pen, Time: 9:30 AM FUV, Provider: Ronit Doan, Status: Pen, Time: 9:30 AM VU-Awqcqaffee-Shlhv Work Phone: Start: 11-25-[address] [facility] Cardiology Start: 09-23-2021 Echocardiography Echocardiogram [facility] Start: 09-21-2021 EPV, Provider: Charline Hagen, Status: Pen, Time: 2:30 PM EPV, Provider: Charline Hagen, Status: Pen, Time: 2:30 PM [facility] Work Phone: Start: 09-21-2021 Patient encounter procedure [facility] [place] Start: 09-20-2021 FUV, Provider: Ronit Doan, Status: Pen, Time: 9:45 AM FUV, Provider: Ronit Doan, Status: Pen, Time: 9:45 AM [facility] Work Phone: Start: 09-20-2021 Patient encounter procedure [facility] Medicine [facility] Start: 07-30-2021 End: 07-31-2022 Albuterol 2.5 mg - Ipratropium 0.5 mg/ 3 mL Neb Soln 3 mL Inhalation Every 4 Hours ; (DUONEB)DOSE = 3 mL Inhalation Every 2 Hours via Nebulizer, PRN Wheezing Start: 30-Jul-2021 End: 30-Jul-2022 Ordered: 30-Jul-2021 Jaylon Kiser [facility] Other Phone (unformatted): [phone] Start: 07-16-2021 FUV, Provider: Ronit Doan, Status: Pen, Time: 1:30 PM FUV, Provider: Ronit Doan, Status: Pen, Time: 1:30 PM [facility] Work Phone: Start: 07-15-2021 NPV, Provider: Jaylon Kiser, Status: Pen, Time: 9:40 AM NPV, Provider: Jaylon Kiser, Status: Pen, Time: 9:40 AM [facility] Work Phone: Start: 06-30-2021 FUV, Provider: Timothy Palacio, Status: Pen, Time: 1:45 PM FUV, Provider: Timothy Palacio, Status: Pen, Time: 1:45 PM [facility] Work Phone: Start: 06-28-2021 FUV, Provider: Timothy Palacio, Status: Pen, Time: 10:00 AM FUV, Provider: Timothy Palacio, Status: Pen, Time: 10:00 AM GX-Cgsgcgsyas-Ycsfts [address] [place] Work Phone: Start: 06-24-2021 ECHO, Provider: MEDI NA HHVI,MG CARD, Status: Pen, Time: 9:00 AM ECHO, Provider: CAZARES HHVI,MG CARD, Status: Pen, Time: 9:00 AM DO-Xjvziztxbi-Eugmps [address] [place] Work Phone: Start: 06-21-2021 FUV, Provider: Ronit Doan, Status: Pen, Time: 10:15 AM FUV, Provider: Ronit Doan, Status: Pen, Time: 10:15 AM [facility] Work Phone: Start: 06-10-2021 NPV, Provider: Jaylon Kiser, Status: Pen, Time: 10:10 AM NPV, Provider: Jaylon Kiser, Status: Pen, Time: 10:10 AM [facility] Work Phone: Start: 05-11-2021 CAROTID, Provider: Jerome ALFONSO 3 MAC 03 VASCULAR LAB,MG VASC, Status: Pen, Time: 11:30 AM CAROTID, Provider: JAYA 3 MAC 03 VASCULAR LAB,MG VASC, Status: Pen, Time: 11:30 AM BO-Kpfvkyzhoj-Oyzgt Work Phone: Start: 03-24-2021 FUVHOSP, Provider: Charline Hagen, Status: Pen, Time: 2:30 PM FUVHOSP, Provider: Charline Hagen, Status: Pen, Time: 2:30 PM [facility] Work Phone: Start: 03-18-2021 FUV, Provider: Ronit Doan, Status: Pen, Time: 1:30 PM FUV, Provider: Ronit Doan, Status: Pen, Time: 1:30 PM [facility] Work Phone: Start: 02-01-2021 Nursing evaluation o f patient and report FLUSHOT, Provider: NURSE VISIT,IM ASSOC, Status: Pen, Time: 10:00 AM [facility] Work Phone: Start: 01-15-2021 FUV, Provider: Timothy Palacio, Status: Pen, Time: 10:30 AM FUV, Provider: Timothy Palacio, Status: Pen, Time: 10:30 AM QE-Mmefvsqbsv-Pcidb Work Phone: Start: 11-17-2020 NPV, Provider: Ronit Doan, Status: Pen, Time: 2:00 PM NPV, Provider: Ronit Doan, Status: Pen, Time: 2:00 PM [facility] Work Phone: Start: 11-10-2020 PACVIRTUAL, Provider : PARMA TELEPHONIC PACEMAKER,MP CARD, Status: Pen, Time: 1:15 PM PACVIRTUAL, Provider: PARMA TELEPHONIC PACEMAKER,MP CARD, Status: Pen, Time: 1:15 PM OJ-Ukydeywpmm-Axbou Work Phone: Start: 10-05-2020 COVID-19 Vaccine (3 - Booster for Pfizer series) COVID-19 Vaccine (3 - Booster for Pfizer series) [facility] Start: 10-05-2020 COVID-19 Vaccine (3 - Pfizer series) COVID-19 Vaccine (3 - Pfizer series) [facility] Start: 09-07-2020 COVID-19 Vaccine (3 - Pfizer risk series) COVID-19 Vaccine (3 - Pfizer risk series) [facility] Start: 09-03-2020 Basic metabolic 1998 panel - Serum or Plasma Basic Metabolic Panel [facility] Work Phone: Start: 09-03-2020 Xray Chest 2 View PA + Lateral Xray Chest 2 View PA + Lateral [facility] Work Phone: Start: 09-03-2020 Xray Chest 2 V iew PA + Lateral [facility] Work Phone: Start: 01-21-2020 HbA1c (Bld) [Mass fraction] Hemoglobin A1C [facility] Work Phone: Start: 10-10-2019 Annual PCP Team Chronic Disease Visit Annual PCP Team Chronic Disease Visit [facility] Start: 09-25-2019 Screening for malignant neoplasm of breast Mammogram Screening [facility] Start: 06-14-2019 Hepatitis B screening Urine Al bumin:Creatinine Ratio [facility] Start: 01-03-2019 BP Controlled (<130/80) BP Controlled (<130/80) [facility] Start: 01-03-2019 Diabetic foot examination Diabetic Foot Exam [facility] Start: 09-21-2017 Glaucoma screening Dilated Retinal E xam [facility] Start: 2015 Screening for osteoporosis Bone Density Screening [facility] Start: 07-23-2014 Screening for malignant neoplasm of colon [facility] Start: 2010 RSV High Risk: (Elderly (60+) or Population) (1 - Risk 60-74 years 1-dose series) RSV High Risk: (Elderly (60+) or Population) (1 - Risk 60-74 years 1-dose series) [facility] Start: 2010 RSV patient s and/or patients aged 60+ years (1 - 1-dose 60+ series) RSV patients and/or patients aged 60+ years (1 - 1-dose 60+ series) [facility] Start: 2010 RSV Vaccine (1 - 1-dose 60+ series) RSV Vaccine (1 - 1-dose 60+ series) [facility] Start: 2000 Shingrix Vaccine (1 of 2) Shingrix Vaccine (1 of 2) [facility] Start: 2000 Zoster Vaccines (1 o f 2) Zoster Vaccines (1 of 2) [facility] Start: 1995 Screening for malignant neoplasm of colon [facility] Start: 1969 Urine screening for protein Diabetes: Urine Protein Screening [facility] Start: 1969 Zoster Vaccines (1 o f 2) Zoster Vaccines (1 of 2) [facility] Start: 1968 Annual PCP Team Chronic Disease Visit Annual PCP Team Chronic Disease Visit [facility] Start: 1968 Depression Screening Depression Scre ening [facility] Start: 1968 Hepatitis C screening Hepatitis C Sc reepop [facility] Start: 1960 Diabetic foot examination Diabetes: Foot Exam [facility] Start: 1960 Ophthalmic examinati on and evaluation Diabetes: Retinopathy Screening [facility] Start: 1955 COVID-19 Vaccine (#1) COVID-19 Vacci ne (#1) [facility] Start: 1951 MMR Vaccines (1 of 1 - Standard series) MMR Vaccines (1 of 1 - Standard series) [facility] Start: 1950 Medicare Annual Wellness Visit Medicare Annual Wellness Visit (AWV) [facility] Start: 1950 Screening for malignant neoplasm of colon [facility] End: 04-19-2023 Cardiac device check - In Clinic [facility] Service Area Work Phone: Comment on above: Once for 1 Occurrenc es starting 04/19/2023 until 04/19/2023 End: 08-15-2023 Cardiac device check - In Clinic [facility] Service Area Work Phone: Comment on above: Once for 1 Occurrenc es starting 08/15/2023 until 08/15/2023 End: 05-15-2024 Cardiac device check - In Clinic [facility] Service Area Work Phone: Comment on above: Once for 1 Occurrenc es starting 05/15/2024 until 05/15/2024 End: 10-23-2023 Cardiac Device Check - Remote [facility] Service Area Work Phone: Comment on above: Once for 1 Occurrenc es starting 10/23/2023 until 10/23/2023 End: 02-13-2024 Cardiac Device Check - Remote [facility] Service Area Work Phone: Comment on above: Once for 1 Occurrenc es starting 02/13/2024 until 02/13/2024 End: 08-13-2024 Cardiac Device Check - Remote [facility] Service Area Work Phone: Comment on above: Once for 1 Occurrenc es starting 08/13/2024 until 08/13/2024 End: 11-12-2024 Cardiac device check - Remote [facility] Service Area Work Phone: Comment on above: Once for 1 Occurrenc es starting 11/12/2024 until 11/12/2024 End: 02-10-2025 Cardiac device check - Remote [facility] Service Area Work Phone: Comment on above: Once for 1 Occurrenc es starting 02/10/2025 until 02/10/2025 End: 02-17-2025 Cardiac device check - Remote [facility] Service Area Work Phone: Comment on above: Once for 1 Occurrenc es starting 02/17/2025 until 02/17/2025 End: 03-21-2023 Cardiac device check - Remote alert [facility] Service Area Work Phone: Comment on above: Once for 1 Occurrenc es starting 03/21/2023 until 03/21/2023 End: 08-14-2023 Cardiac device check - Remote alert [facility] Service Area Work Phone: Comment on above: Once for 1 Occurrenc es starting 08/14/2023 until 08/14/2023 End: 06-21-2023 DBT Breast - bilateral [facility] Service Area Work Phone: Comment on above: Once for 1 Occurrenc es starting 06/21/2023 until 06/21/2023 Electrocardiogram, 12-lead PRN ACS symptoms Electrocardiogram, 12-lead PRN ACS symptoms ECG Routine As needed until discontinued starting 04/24/2023 [facility] Service Area Work Phone: Comment on above: As needed until disc ontinued starting 04/24/2023 History of coronary artery bypass grafting S/P CABG (coronary artery bypass graft) [facility] Other Phone (unformatted): [phone] History of repair of mitral valve History of mitral valve repair [facility] Other Phone (unformatted): [phone] End: 07-12-2024 MR Lumbar spine WO contrast MRI LUMBAR SPINE WO IVCON Radiology Routine Spinal stenosis of lumbar region with neurogenic claudication 1 Occurrences starting 06/13/2023 until 07/12/2024 [facility] Work Phone: Comment on above: 1 Occurrences starti ng 06/13/2023 until 07/12/2024 OPIATE/OPIOID/BENZO PRESCRIPTION COMPLIANCE OPIATE/OPIOID/BENZO PRESCRIPTION COMPLIANCE Lab Routine 08/11/2022 10:13 AM EDT [facility] Work Phone: Patient referral [facility] Work Phone: End: 04-24-2023 Respiratory care eval and treat Respiratory care eval and treat Respiratory Care Routine Once for 1 Occurrences starting 04/24/2023 until 04/24/2023 [facility] Service Area Work Phone: Comment on above: Once for 1 Occurrenc es starting 04/24/2023 until 04/24/2023 End: 04-07-2023 US Heart Transthoracic [facility] Service Area Work Phone: Comment on above: Once for 1 Occurrenc es starting 04/07/2023 until 04/07/2023 US.doppler Carotid arteries - bilateral Vascular US carotid artery duplex bilateral Vascular Ultrasound Routine Carotid stenosis Carotid stenosis, bilateral 08/22/2023 4:39 PM EDT [facility] Service Area Work Phone: US.doppler Carotid arteries - bilateral Vascular US carotid artery duplex bilateral Vascular Ultrasound Routine Carotid stenosis Carotid stenosis, bilateral Occlusion and stenosis of left carotid artery 08/22/2024 11:51 AM EDT [facility] Service Area Work Phone: End: 08-30-2024 XR Chest PA and Lateral XR CHEST 2V FRONTAL/LAT Radiology Routine AICD (automatic cardioverter/defibrillator ) present 1 Occurrences starting 08/01/2023 until 08/30/2024 [facility] Work Phone: Comment on above: 1 Occurrences starti ng 08/01/2023 until 08/30/2024 [facility] Work Phone: [facility] NEGATED: Highlighted row has been ruled out! Planned Goals not documented [facility] Work Phone: Immunizations Immunization Date Immunization Notes Care Provider Nara sheth 02-13-2024 influenza, seasonal, injectable, preservative free Ronit Doan DO Work Phone: [facility] Work Phone: 02-13-2024 influenza virus vacc ine, unspecified formulation Par Remote [facility] Work Phone: 01-26-2023 influenza, injectabl e, quadrivalent, preservative free Ronit Doan DO Work Phone: [facility] Work Phone: 01-26-2023 influenza virus vacc ine, unspecified formulation Charline Hagen DO Work Phone: [facility] Work Phone: 01-17-2022 influenza, injectabl e, quadrivalent, preservative free; Translations: [Flulaval Quadrivalent 0.5 ML Intramuscular Suspension Prefilled Syringe] Ronit Doan Work Phone: [facility] Work Phone: Comment on above: Series: 01-17-2022 influenza virus vacc ine, unspecified formulation Ronit Doan DO Work Phone: [facility] Work Phone: 02-01-2021 influenza, injectabl e, quadrivalent, contains preservative; Translations: [Flulaval Quadrivalent Intramuscular Suspension] Ronit Doan Work Phone: [facility] Work Phone: Comment on above: Series: 02-01-2021 influenza virus vacc ine, unspecified formulation Ronit Doan DO Work Phone: [facility] Work Phone: 08-10-2020 Pfizer-BioNTech COVI D-19 Vacc 30 MCG/0.3ML Intramuscular Suspension Timothy Palacio DO -[facility] Work Phone: Comment on above: Series: 07-21-2020 Pfizer-BioNTech COVI D-19 Vacc 30 MCG/0.3ML Intramuscular Suspension Timothy Palacio DO -[facility] Work Phone: Comment on above: Series: 01-21-2020 influenza, injectabl e, quadrivalent, preservative free; Translations: [Fluzone Quadrivalent 0.5 ML Intramuscular Suspension] Shelley Camryanneeduardo [facility] Work Phone: Comment on above: Series: 01-21-2020 pneumococcal polysaccharide vaccine, 23 valent; Translations: [Pneumococcal polysaccharide vaccine, 23 valent] Shelley Camryanneeduardo [facility] Work Phone: Comment on above: Series: 02-12-2019 influenza, injectabl e, quadrivalent, preservative free; Translations: [Fluzone Quadrivalent 0.5 ML Intramuscular Suspension Prefilled Syringe] [facility] Work Phone: Comment on above: Series: 09-13-2018 tetanus toxoid, redu fuentes diphtheria toxoid, and acellular pertussis vaccine, adsorbed Ronit Doan Work Phone: [facility] 07-09-2018 pneumococcal conjuga te vaccine, 13 valent Ronit Doan DO Work Phone: [facility] Work Phone: 07-06-2018 pneumococcal conjuga te vaccine, 13 valent Katharine Scales -[facility] Work Phone: Comment on above: Series: 02-05-2018 influenza virus vacc ine, unspecified formulation Katharine Scales Work Phone: [facility] Work Phone: Comment on above: Series: 02-05-2018 influenza, seasonal, injectable [facility] Work Phone: 02-02-2018 influenza, high dose seasonal, preservative-free Ronit Doan DO Work Phone: [facility] Work Phone: 01-18-2017 tuberculin skin test ; purified protein derivative solution, intradermal Ronit Doan DO Work Phone: [facility] Work Phone: 01-10-2017 influenza, high dose seasonal, preservative-free Ronit Doan Work Phone: [facility] Work Phone: 12-14-2015 influenza, high dose seasonal, preservative-free Ronit Doan Work Phone: [facility] Work Phone: Payers Date Payer Category Payer Self-pay 2024 Medicare [id number] 2022 Medicare supplementa l policy (as second payer) [facility] [id number] 2022 Unknown 2017 Unknown [id number] 2016 Unknown [id number] 2015 Medicare [id number] 2008 Medicare [id number]. [id number] 2008 Private Health Insurance [id number] .[id number]. 2.7.3.970251.315 1950 Unknown [id number] 2.16.840.1.359144.3.579. 2.732 1950 Unknown [id number] 2.16.840.1.950497.3.579. 2.1045 1950 Unknown [id number] 2.16.840.1.134540.3.579. 2.1045 1950 Unknown [id number] 2.16.840.1.803258.3.579. 2.1045 1950 Unknown [id number] 2.16.840.1.536438.3.579. 2.1045 1950 Unknown [id number] 2.16.840.1.822905.3.579. 2.1045 1950 Unknown [id number] 2.16.840.1.613341.3.579. 2.1045 1950 Unknown [id number] 2.16.840.1.900997.3.579. 2.1045 1950 Unknown [id number] 2.16.840.1.053032.3.579. 2.1045 1950 Unknown [id number] 2.16.840.1.112147.3.579. 2.1045 1950 Unknown [id number] 2.16.840.1.475327.3.579. 2.356 1950 Unknown [id number] 2.16.840.1.243078.3.579. 2.356 1950 Unknown [id number] 2.16.840.1.282215.3.579. 2.356 1950 Unknown [id number] 2.16.840.1.512281.3.579. 2.356 1950 Unknown [id number] 2.16.840.1.522972.3.579. 2.356 1950 Unknown [id number] 2.16.840.1.413213.3.579. 2.356 1950 Unknown [id number] 2.16.840.1.660828.3.579. 2.356 1950 Unknown [id number] 2.16.840.1.899835.3.579. 2.356 1950 Unknown [id number] 2.16.840.1.139053.3.579. 2.356 1950 Unknown [id number] 2.16.840.1.259478.3.579. 2.356 1950 Unknown [id number] 2.16.840.1.935190.3.579. 2.356 1950 Unknown [id number] 2.16.840.1.968115.3.579. 2.356 1950 Unknown [id number] 2.16.840.1.774106.3.579. 2.356 1950 Unknown [id number] 2.16.840.1.358975.3.579. 2.356 1950 Unknown [id number] 2.16.840.1.671380.3.579. 2.356 1950 Unknown [id number] 2.16.840.1.005798.3.579. 2.356 1950 Unknown [id number] 2.16.840.1.867871.3.579. 2.356 1950 Unknown [id number] 2.16.840.1.444676.3.579. 2.356 1950 Unknown [id number] 2.16.840.1.683085.3.579. 2.356 1950 Unknown [id number] 2.16.840.1.041534.3.579. 2.356 1950 Unknown [id number] 2.16.840.1.971300.3.579. 2.356 1950 Unknown [id number] 2.16.840.1.623740.3.579. 2.356 1950 Unknown [id number] 2.16.840.1.764470.3.579. 2.356 1950 Unknown [id number] 2.16.840.1.317639.3.579. 2.356 1950 Unknown [id number] 2.16.840.1.969406.3.579. 2.356 1950 Unknown [id number] 2.16.840.1.976643.3.579. 2.356 1950 Unknown [id number] 2.16.840.1.013982.3.579. 2.356 1950 Unknown [id number] 2.16.840.1.863586.3.579. 2.356 1950 Unknown [id number] 2.16.840.1.682110.3.579. 2.356 1950 Unknown [id number] 2.16.840.1.200553.3.579. 2.356 1950 Unknown [id number] 2.16.840.1.777304.3.579. 2.356 1950 Unknown [id number] 2.16.840.1.054979.3.579. 2.356 1950 Unknown [id number] 2.16.840.1.256799.3.579. 2.1242 1950 Unknown [id number] 2.16.840.1.316151.3.579. 2.627 1950 Unknown [id number] 2.16.840.1.166055.3.579. 2.159 1950 Unknown [id number] 2.16.840.1.131191.3.579. 2.159 1950 Unknown [id number] 2.16.840.1.729836.3.579. 2.159 1950 Unknown [id number] 2.16.840.1.946185.3.579. 2.159 1950 Unknown [id number] 2.16.840.1.905136.3.579. 2.159 1950 Unknown [id number] 2.16.840.1.303980.3.579. 2.159 1950 Unknown [id number] 2.16.840.1.971181.3.579. 2.159 1950 Unknown [id number] 2.16.840.1.535043.3.579. 2.124 1950 Unknown [id number] 2.16.840.1.155485.3.579. 2.1244 1950 Unknown [id number] 2.16.840.1.244220.3.579. 2.1244 1950 Unknown [id number] 2.16.840.1.192578.3.579. 2.1244 1950 Unknown [id number] 2.16.840.1.591558.3.579. 2.1244 1950 Unknown [id number] 2.16.840.1.188692.3.579. 2.1246 1950 Unknown [id number] 2.16.840.1.866941.3.579. 2.1246 1950 Unknown [id number] 2.16.840.1.437999.3.579. 2.1246 1950 Unknown [id number] 2.16.840.1.899344.3.579. 2.1246 1950 Unknown [id number] 2.16.840.1.095692.3.579. 2.1246 1950 Unknown [id number] 2.16.840.1.620702.3.579. 2.1246 1950 Unknown [id number] 2.16.840.1.545079.3.579. 2.1246 1950 Unknown [id number] 2.16.840.1.382459.3.579. 2.1246 1950 Unknown [id number] 2.16.840.1.275698.3.579. 2.1243 1950 Unknown [id number] 2.16.840.1.733300.3.579. 2.1243 1950 Unknown [id number] 2.16.840.1.395805.3.579. 2.1243 1950 Unknown [id number] 2.16.840.1.200307.3.579. 2.1243 1950 Unknown [id number] 2.16.840.1.787656.3.579. 2.1243 1950 Unknown [id number] 2.16.840.1.745535.3.579. 2.1243 1950 Unknown [id number] 2.16.840.1.375032.3.579. 2.1243 1950 Unknown [id number] 2.16.840.1.507482.3.579. 2.1243 1950 Unknown [id number] 2.16.840.1.288786.3.579. 2.1243 1950 Unknown [id number] 2.16.840.1.306331.3.579. 2.1243 1950 Unknown [id number] 2.16.840.1.771714.3.579. 2.1243 1950 Unknown [id number] 2.16.840.1.550408.3.579. 2.1243 1950 Unknown [id number] 2.16.840.1.257508.3.579. 2.1243 1950 Unknown [id number] 2.16.840.1.963852.3.579. 2.1244 1950 Unknown [id number] 2.16.840.1.600300.3.579. 2.1244 1950 Unknown [id number] 2.16.840.1.715889.3.579. 2.1244 1950 Unknown [id number] 2.16.840.1.357776.3.579. 2.1244 1950 Unknown [id number] 2.16.840.1.248549.3.579. 2.1244 1950 Unknown [id number] 2.16.840.1.750363.3.579. 2.1244 Medicare [id number] Unknown [id number] 2.16.840.1.070923.3.579. 2.462 Unknown [id number] 2.16.840.1.779679.3.579. 2.462 Unknown [id number] 2.16.840.1.489973.3.579. 2.462 Unknown [id number] 2.16.840.1.184132.3.579. 2.462 Unknown [id number] 2.16.840.1.616642.3.579. 2.462 Unknown [id number] 2.16.840.1.431454.3.579. 2.462 Unknown [id number] 2.16.840.1.032369.3.579. 2.462 Unknown [id number] 2.16.840.1.175879.3.579. 2.462 Unknown [id number] 2.16.840.1.159076.3.579. 2.462 Unknown [id number] 2.16840.1.413825.3.579. 2.462 Unknown [id number] 2.16.840.1.102689.3.579. 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 [facility] Other Phone (unformatted): [phone] Start: 08-11-2022 End: 06-13-2023 Tobacco smoking status NHIS Never smoked tobacco [facility] Start: 08-11-2022 End: 06-13-2023 Tobacco use and exposure Smokeless tobacco non-user [facility] Work Phone: Start: 08-12-2022 End: 04-24-2023 Tobacco use panel [facility] Work Phone: Start: 1950 Sex Assigned At Not on file [facility] Work Phone: Start: 08-01-2022 End: 10-10-2024 Exposure to SARS-CoV-2 (event) Not sure [facility] Start: 11-11-2022 End: 01-28-2025 Alcohol intake Ex-drinker (finding) [facility] Work Phone: Start: 04-23-2023 End: 11-21-2023 Alcohol intake Current non-drinker of alcohol (finding) [facility] Start: 04-02-2022 Adult Depression Screening Assessment 0 [facility] Work Phone: How often to you hav e a drink containing alcohol? Never [facility] At any time in the past 12 months, were you homeless or living in nursing home [including now]? No [facility] Work Phone: Start: 08-05-2023 End: 08-12-2024 Exposure to SARS-CoV-2 (event) Unable to assess [facility] Tobacco smoking status No Smoking Status Entered [facility] Start: 1950 Sex Assigned At Female A [facility] Start: 07-17-2024 End: 07-17-2024 Sex Female (finding) [facility] NEGATED: Highlighted row - - [facility] [employer] Work Phone: NEGATED: Highlighted rowStart: LEVARF History of tobacco use Passive smoker [facility] Work Phone: Medical Equipment Procedure Code Equipment Code Equipment Original Text Equipment Identifier Dates Graft, Xenosure, Biologic Patch, 0.8cm X 8cm Case [id number] Start: 07-30-2021 Comment on above: Description: Convert ed from [facility] Acute. Please see archived information for full log information. Pacemaker-Sedr01 [id number] -2009 [id number] Start: 09-02-2008 Goals Date Patient Goal Desired Activity /State Functional Status Date Assessment Result Facility 02-17-2025 Vital signs 64 02/17/2025 11 :00 AM EDT Patt Escalona LPN [facility] 02-17-2025 Functional status [facility] 02-17-2025 [facility] Work Phone: 01-28-2025 Patient Health Questionnaire 2 item (PHQ-2) [Reported] [facility] Work Phone: 10-28-2024 Patient Health Questionnaire 2 item (PHQ-2) [Reported] [facility] Work Phone: 01-03-2024 Functional Status Up ad tanvi [facility] Functional observable [facility] Other Phone (unformatted): [phone] NEGATED: Highlighted row Functional performance Functional status health issues are not documented Disease [facility] [employer] Work Phone: Mental Status Date Assessment Result Facility 07-17-2024 Cognitive function Voice/Name Serj[facility] Work Phone: 01-03-2024 Mental Status Oriented x 4 [facility] 08-01-2021 Cognitive functi ons :27 [facility] Other Phone (unformatted): [phone] NEGATED: Highlighted row Cognitive function [Interpretation] Cognitive status health issues are not documented Disease [facility] [employer] Work Phone: Clinical Notes 08-30-2008 to 03-18-2025 Ronit Doan, - 01/28/2025 1:00 PM EDTPatient InstructionsAssessment & Plan Note - Temi Ceja - 10/28/2024 2:39 PM EDTAssessment & Plan Note - Temi Ceja - 10/28/2024 2:39 PM EDT Note Date & Type Note Facility 03-18-2025 Note [facility] Medical Records Department [address] [place] [address] Discharge Summary 03/18/25 0950 MR#: [id number] Acct: [id number] Name: PAU MUÑOZ Rep #: [id number] : 1950 74 From: Vipin Mendosa MD PCP: Dr. Ronit Doan DO Status:ADM IN [facility] Providers Date of Admission: 03/14/25 Primary Care Physician: Dr. Ronit Doan DO Reason For Visit: ASTHMA EXACERBATION Diagnosis Discharge Diagnosis (1) Asthma exacerbation: Status: Acute Code(s): J45.901 - Unspecified asthma with (acute) exacerbation Medications at Discharge Home Medications acetaminophen 325 mg tablet (Tylenol) 325 mg PO ONCE PRN pain 07/11/24 cetirizine 10 mg tablet (Zyrtec) 10 mg PO QDAY PRN allergy symptoms 07/11/24 diltiazem HCl 240 mg capsule,extended release 24 hr (Cardizem CD) 240 mg PO BID 07/11/24 esomeprazole magnesium 20 mg capsule,delayed release (Nexium) 20 mg PO QDAY 07/11/24 fluticasone fur. 100 mcg-umeclid 62.5 mcg-vilant 25 mcg inhalat.powder (Trelegy Ellipta) 1 inh inhalation Q24H 07/11/24 furosemide 20 mg tablet (Lasix) 20 mg PO QPM 07/11/24 furosemide 40 mg tablet (Lasix) 40 mg PO QAM 07/11/24 lactobacillus combination no.4 3 billion cell capsule (Probiotic) 3,000 mmu cells PO QDAY 07/11/24 levalbuterol tartrate 45 mcg/actuation aerosol inhaler (Xopenex HFA) 2 inh inhalation Q6H 07/11/24 lisinopril 10 mg tablet 10 mg PO QDAY 07/11/24 tramadol 25 mg tablet 25 mg PO Q6H PRN pain 07/11/24 warfarin 2 mg tablet 2.5 mg PO .COMPLEX mowefrsasu 07/11/24 ipratropium 0.5 mg-albuterol 3 mg (2.5 mg base)/3 mL nebulization soln 3 ml inhalation PRN 07/15/24 magnesium gluconate 27.5 mg magnesium (500 mg) tablet 27.5 mg PO DAILY 07/15/24 pravastatin 40 mg tablet 40 mg PO QHS 07/15/24 warfarin 2.5 mg tablet 1.25 mg PO TUTH 07/15/24 metformin 500 mg tablet,extended release 24 hr 500 mg PO BID 07/24/24 gabapentin 100 mg capsule 200 mg PO QHS 03/13/25 prednisone 10 mg tablet 10 mg PO DAILY #20 tabs 03/18/25 Hospital Course Operations None Procedures None Summary of Care Provided Minutes Spent on Discharge: 36 Hospital Course: Per HPI: PAU MUÑOZ, is a 74 F who presents with shortness of breath. Patient been short of breath since this past Monday. Went to an urgent care and received prednisone but despite that she has been short of breath. Her activity is limited at baseline but she just feels overall more short of breath. Presents to the emergency room where her sats are in the 90s but has audible wheezing. Patient received methylprednisolone as well as bronchodilators. And the hospital service was contacted for admission. Patient has been coughing, but it nonproductive. No fever or chills. Hospital course: 1. Asthma exacerbation secondary to rhinovirus???74-year-old female presented to the hospital with increasing shortness of breath. She initially been seen as an outpatient was started on steroids and took 2 days of this but had to urination so she presented to the hospital. She was placed on IV steroids as well as breathing treatments and azithromycin. She completed 5 days of azithromycin here in the hospital and is feeling much better today. She was ambulated yesterday and did not require oxygen either at rest or with ambulation in the afternoon. She does have 3 more days of 40 mg of prednisone at home therefore I recommend that she complete those 3 days and then do the taper I sent her of prednisone 30 mg daily for 3 days then 20 mg daily for 3 days then 10 mg daily for 3 days then 5 mg daily for 4 days. I do recommend outpatient follow-up with her PCP and I did refer her to pulmonology. I discussed with her the plan for discharge today and she expressed understanding of the risks and benefits of going home and would like to go home today. 2. A-fib, type 2 diabetes, coronary artery disease, CHF unknown type or all chronic medical conditions which complicate her care. Her home medications were continued where appropriate. I do recommend that she check her INR on and if it has improved since the antibiotics will be discontinued then she can resume her Coumadin at the discretion of her primary care doctor. INR yesterday was 3.5. Physical Exam Narrative General: Alert, Oriented x3, Cooperative, No apparent distress HEENT: Atraumatic, PERRLA, EOMI, Normocephalic Oral: Moist Mucosa Neck: Supple, No JVD Lungs: Diminished, Normal air movement, scattered rhonchi, wheeze, No rales Cardiovascular: Regular rate, Regular Rhythm, Normal S1, Normal S2, No murmurs Abdomen: Soft, Non Tender, Non-Distended, No Hepato-splenomegaly Extremities: No edema, Capillary Refill Less than 3 Seconds Skin: No rashes, No breakdown Musculoskeletal: No Tenderness to Palpation of Joints or Extremities Neurological: No focal neurological deficits, moves all extremities Psych/Menta (more content not included)... [facility] 01-28-2025 History of Present illness Narrative Subjective Pau Cruz is a 74 y.o. female who presents [...] discussion, and plan. documented in this encounter [facility] Work Phone: 01-28-2025 Instructions Ronit Doan DO - 01/28/2025 1:00 PM EDT See me again in 3 months. Get blood test done close to next visit. documented in this encounter [facility] Work Phone: 10-28-2024 Evaluation + Plan note Associated Problem(s): Encounter for preventative adult health care examination Medicare wellness completed today In addition to Medicare Wellness visit, the following issues were addressed with separate E/M and treatment decision such as refills or tests were ordered: Afib Type 2 DM HTN [facility] Work Phone: 10-28-2024 Miscellaneous Notes Associated Problem(s): [...] Started on Metformin 500 mg daily at [facility]. Increase to metformin 500 mg 1 tab BID Associated Problem(s): Permanent atrial fibrillation (Multi) Remain on Warfarin 2.5 mg 6 days a week and 1.25 on Monday. Recheck INR in 2 weeks. Associated Problem(s): Essential hypertension Controlled Remain on Lisinopril 10 mg daily and Cardizem 240 mg q12h documented in this encounter [facility] Work Phone: 10-28-2024 History of Present illness [...] 11:05 am; 07/05/2024 12:01 pm ACCESSION NUMBER(S): [id number]; [id number] ORDERING CLINICIAN: RONIT DOAN INDICATION: History of [...] of the right breast by a registered laundromat worker with elastography. Grayscale and color imaging reviewed. [...] General Ronit [facility] Attributed Provider Timothy Palacio DO [...] Started on Metformin 500 mg daily at [facility]. Increase to metformin 500 mg 1 [...] Ronit Doan DO. documented in this encounter [facility] Work Phone: 10-28-2024 Instructions Ronit Doan DO [...] visit with A1c documented in this encounter [facility] Work Phone: 10-28-2024 Evaluation + Plan note Associated Problem(s): Type 2 diabetes mellitus, without long-term current use of insulin (Multi) A1c 7.4 Started on Metformin 500 mg daily at [facility]. Increase to metformin 500 mg 1 tab BID [facility] Work Phone: 10-28-2024 Evaluation + Plan note Associated Problem(s): Permanent atrial fibrillation (Multi) Remain on Warfarin 2.5 mg 6 days a week and 1.25 on Monday. Recheck INR in 2 weeks. [facility] Work Phone: 10-28-2024 Evaluation + Plan note Associated Problem(s): Essential hypertension Controlled Remain on Lisinopril 10 mg daily and Cardizem 240 mg q12h [facility] Work Phone: 09-11-2024 History of Present illness Narrative Pau Cruz is a 74 y.o. female Subjective This [...] pulmonary hypertension (Multi) 08/15/2008 Ventricular septal defect (HHS-HCC) 08/15/2008 Hypercholesterolemia 10/26/2007 Asthma 05/18/2007 Degeneration of [...] carotid artery duplex bilateral Result Date: 08/24/2024 [place] [id number] and V[facility]ILATERAL Patient Name: PAU MUÑOZ Reading Physician: [id number] Nolvia oLpez MD, RPVI Study Date: 08/22/2024 Ordering Physician: [id number] JAYLON KISER MRN/PID: [id number] Technologist: Emili Rascon RVT Technologist 2: Date of /Age: 1 1950 / 74 years Gender: F Admission Status: Outpatient Location Performed: [facility] Diagnosis/ICD: 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 Jaylon Kiser DO [1] Current Outpatient Medications: cetirizine (ZyrTEC) 10 [...] capsule. Pt gets otc, Disp: , Rfl: ecdpgubcwlb-jlfulqndj-rtwsgyzh (Trelegy Ellipta) 200-62.5-25 mcg blister with device, [...] Disp: 12 tablet, Rfl: [address] [facility], Dispense Nebulizer tubing and mouthpiece at quantity [...] Disp: , Rfl: documented in this encounter [facility] Work Phone: 08-26-2024 Telephone encounter Note [facility] Last creatinine 0.93 from 06-21-2023 Please resend to new pharmacy listed below Patient's request for medication is as follows: Requested Prescriptions Pending Prescriptions Disp Refills gabapentin (NEURONTIN) 100 mg capsule 120 capsule 11 Sig: Dose clarification: take 2 tabs PO BID Prescription(s) as above. Please process accordingly. Angeli Greenfield LPN [facility] 08-26-2024 Miscellaneous Notes [facility] Last creatinine 0.93 from 06-21-2023 Please resend to new pharmacy listed below Patient's request for medication is as follows: Requested Prescriptions Pending Prescriptions Disp Refills gabapentin (NEURONTIN) 100 mg capsule 120 capsule 11 Sig: Dose clarification: take 2 tabs PO BID Prescription(s) as above. Please process accordingly. Angeli Greenfield LPN documented in this encounter [facility] 08-24-2024 Note HNO ID: [id number] Author: MARNIE FAIRCHILD MD Service: ? Author [...] writing Tramadol and a short prescription for [place] recently. I will defer a bridging prescription and have the patient follow up with Dr. Fairchild for clarification regarding her dose and care as she was last seen in November of 2023. Marnie Fairchild MD August 24, 2024 [facility] 08-24-2024 History of Present illness Narrative Patient [...] writing Tramadol and a short prescription for [place] recently. I will defer a bridging prescription and have the patient follow up with Dr. Fairchild for clarification regarding her dose and care as she was last seen in November of 2023. Marnie Fairchild MD August 24, 2024 documented in this encounter [facility] 08-23-2024 Telephone encounter Note Refill encounter sent. [facility] 08-23-2024 Miscellaneous Notes Refill encounter sent. Patient need a refill on her gabapentin. The pharmacy is telling the patient she has no refills left. Send to [facility] in [place] [phone] documented in this encounter [facility] 08-23-2024 Telephone encounter Note [facility] Last creatinine 0.93 from 06-21-2023 Patient's request for medication is as follows: Requested Prescriptions Pending Prescriptions Disp Refills gabapentin (NEURONTIN) 100 mg capsule 120 capsule 11 Sig: Dose clarification: take 2 tabs PO BID Prescription(s) as above. Please process accordingly. Angeli Greenfield LPN [facility] 08-23-2024 Miscellaneous Notes [facility] Last creatinine 0.93 from 06-21-2023 Patient's request for medication is as follows: Requested Prescriptions Pending Prescriptions Disp Refills gabapentin (NEURONTIN) 100 mg capsule 120 capsule 11 Sig: Dose clarification: take 2 tabs PO BID Prescription(s) as above. Please process accordingly. Angeli Greenfield LPN documented in this encounter [facility] 08-23-2024 Telephone encounter Note Patient need a refill on her gabapentin. The pharmacy is telling the patient she has no refills left. Send to [facility] on [facility] in [place] [phone] [facility] 07-22-2024 History of Present illness Narrative Subjective [...] 1.4 prior to Lumpectomy last week, at [facility] by Dr Mccarthy. Had surgery last Monday to clean out the area, since she had two prior [...] capsule. Pt gets otc, Disp: , Rfl: hgzpsudmtlw-uoogibnun-unswmobw (Trelegy Ellipta) 200-62.5-25 mcg blister with device, [...] Disp: 12 tablet, Rfl: [address] [facility], Dispense Nebulizer tubing and mouthpiece at quantity [...] Attestation By signing my name below, I, Charisma Siddiqi, Selvin attest that this documentation has been prepared under the direction and in the presence of Ronit Doan DO. documented in this encounter [facility] Work Phone: 07-22-2024 Instructions Ronit Doan DO [...] cholesterol and A1c. documented in this encounter [facility] Work Phone: 07-18-2024 Evaluation + Plan note Associated Problem(s): Asthma follows with pulmonology. Remain on Trelegy and has nebuizer. [facility] Work Phone: 07-18-2024 Miscellaneous Notes Associated Problem(s): [...] agreement due today documented in this encounter [facility] Work Phone: 07-18-2024 Evaluation + Plan note Associated Problem(s): Permanent atrial fibrillation (Multi) Remain on Warfarin. Monday, Monday and Monday- 2.5 mg Monday, , Monday and Monday- 1.25 mg [facility] Work Phone: 07-18-2024 Evaluation + Plan note Associated Problem(s): Type 2 diabetes mellitus, without long-term current use of insulin (Multi) Fingerstick A1c was 7.0% Start Metformin 500 mg daily. Recheck A1c in 3 months. Discussed side effects of nausea or diarrhea. [facility] Work Phone: 07-18-2024 Evaluation + Plan note Associated Problem(s): Essential hypertension Controlled Remain on Lisinopril 10 mg daily and Cardizem 240 mg q12h [facility] Work Phone: 07-18-2024 Evaluation + Plan note Associated Problem(s): Hypercholesterolemia Remain on Pravastatin 40 mg daily [facility] Work Phone: 07-18-2024 Evaluation + Plan note [...] this medication. Controlled substance agreement due today [facility] Work Phone: 07-17-2024 Consult note [facility] 07-17-2024 History and physical note Note Date/Time July 17, 2024 11:06am [facility] Medical Records Department [address] [place] [address] History & Physical Exam 07/17/24 1104 MR#: [id number] Acct: [id number] Name: PAU MUÑOZ Rep #:[id number] : 1950 74 From: Nawaf Mccarthy MD PCP: Dr. Ronit Doan, DO Status:REG S DC Location: [place] [address] HPI - General General Date of Admission: 07/17/24 Date of Service: 07/17/24 Chief Complaint: Right breast lump HPI Narrative PAU MUÑOZ, is a 74 F who presents for excisional biopsy/lumpectomy involving the right breast. She was recently seen in the office following ultrasound to workup a small palpable abnormality at the site of previous biopsylocation. She presents today for excisional biopsy/lumpectomy COUNTS INCLUDE 234 BEDS AT THE [facility] Medical History Blood disorder Wears hearing aid [...] begin shortly Charges/Coding Visit Charges Inpatient E&M: 33003 Init Hosp L1 07/17/24 1106 <Electronically signed by Nawaf Mccarthy MD> Cosigner Signature (if applicable): CC: Dr. Ronit Doan DO; Dr. Nawaf Mccarthy MD~ Signed [facility] Work Phone: 1(343) 915-443903-12-2025 Consult note Author Moy jass [facility] Note Date/Time July 17, 2024 10: 49am [facility] Medical Records Department [address] [place] [address] Pre-Anesthesia Evaluation 07/17/24 1048 MR#: [id number] Acct: [id number] Name: PAU MUÑOZ Rep #:[id number] : 1950 74 From: Moy Blair MD PCP: Dr. 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 History - gaming worker Hx Hospitalization No 07/15/24 13:26 Any Problems [...] take am of surgery PONV PONV - gaming worker: PONV - gaming worker Female Yes 07/15/24 13:26 HX of Motion [...] 07/17/24 10:26 Respiratory Assessment Respiratory Assessment - gaming worker: Respiratory Tract Infection Hx - gaming worker Hx Respiratory Tract Infection No 07/15/24 13:26 STOP Sleep Apnea STOP Sleep Apnea - gaming worker: STOP Sleep Apnea - gaming worker Hx Hypertension Yes: CONTROLLED ON MED 07/15/24 [...] Tobacco Use History Tobacco Use History - gaming worker: Tobacco Use History - gaming worker Tobacco Use Smoking Status Never smoker 07/15/24 13:26 Hx Tobacco Use No 07/15/24 13:26 Years Smoking Packs Smoked per Day Smoking Cessation Date was within the last 15 years Hx Smoking Cessation Date Hx Smoking Cessation Counseling Hematologic Medial History Hematologic Hx - gaming worker: 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 07/17/24 1049 <Electronically signed by Moy Blair MD > Date _ Moy Blair MD Cosigner Signature: Date CC: ~ Signed [facility] Work Phone: 1(385) 660-119203-12-2025 Procedure note [facility] Medical Records Department [address] [place] [address] Operative Report 07/17/24 1231 MR#: [id number] Acct: [id number] Name: PAU MUÑOZ Rep #:[id number] : 1950 74 From: Nawaf Mccarthy MD PCP: Dr. Ronit Doan, DO Status:REG S DC Location: AC AC07-1 Multi Select Codes Integumentary Integumentary CPT Codes: 91540 Bx breast [place] [address] Partial mastectomy Operative Report (Standard) Operative Information Date of Procedure: 07/17/24 Pre-Operative Diagnosis: Right breast mass/abnormal ultrasound Post-Operative Diagnosis: Same Surgery/Procedure Performed: Right breast lumpectomy/excisional biopsy derrick operator: Yes Ict Support Technicians: Karina Middleton Tasks completed by cleaner assistant: Closing and Retracting Additional medical assistant secretary?: No Type of Anesthesia: General and Local [...] type of biopsy need to be performed. Mitrahas had multiple previous excisional biopsies in the [...] taken to recovery in good condition. A HAT LINING PASTER was utilized as a assistant general manager. Her role included skin retraction andassistance with skinclosure. Surgical Findings: See operative description Complications Complications: No Admit VTE Documentation VTE Present on Admission: No VTE Mechan Device Prophylaxis: SCD's VTE Pharm Prophylaxis ordered?: No Reason prophylaxis not ordered: Treatment Not Indicated 07/17/24 1246 Cosigner Signature (if applicable): CC: Dr. Ronit Doan DO; Dr. Nawaf Mccarthy MD~ Signed [facility]03-12-2025 Consult note [facility] Medical Records Department [address] [place] [address] Anesthesia Postop Eval I 07/17/24 1234 MR#: [id number] Acct: [id number] Name: PAU MUÑOZ Rep #:[id number] : 1950 74 From: Zoey Aggarwal PCP: Dr. Ronit Doan DO Status:REG S DC Y Race: C Location: [place] [address]- Anesthesia: Postop Eval I Current Vital Signs [...] Yes 07/17/24 1235 > Date _ Zoey Jara Signature: Date CC: ~ Signed [facility]03-12-2025 Discharge summary [facility] Medical Records Department [address] [facility] [place] [address] Instructions for Home/Discharge Instructions 07/17/24 1215 MR#: [id number] Acct: [id number] Name: PAU MUÑOZ Rep #:[id number] : [...] Care Provider: Ronit Doan Instructions Print Language: Nigerien Discharge Orders/Prescriptions Prescriptions: New hydrocodone-acetaminophen 5-325 mg [...] can be placed): Home, Self Care 07/17/24 1221Sbran Mccarthy MD CC: Dr. Ronit Doan DO ~ Signed [facility]03-12-2025 History and physical note [facility] Medical Records Department [address] [place] [address] History & Physical Exam 07/17/24 1104 MR#: [id number] Acct: [id number] Name: PAU MUÑOZ Joni Rep #:[id number] : 1950 74 From: Nawaf Mccarthy MD PCP: Dr. Ronit Doan, DO Status:REG S DC Location: [place] [address] HPI - General General Date of Admission: 07/17/24 Date of Service: 07/17/24 Chief Complaint: Right breast lump HPI Narrative PAU MUÑOZ, is a 74 F who presents for excisional biopsy/lumpectomy involving the right breast. She was recently seen in the office following ultrasound to workup a small palpable abnormality at the site of previous biopsylocation. She presents today for excisional biopsy/lumpectomy COUNTS INCLUDE 234 BEDS AT THE [facility] Medical History Blood disorder Wears hearing aid [...] begin shortly Charges/Coding Visit Charges Inpatient E&M: 93051 Init Hosp L1 07/17/24 1106 Cosigner Signature (if applicable): CC: Dr. Ronit Doan DO; Dr. Nawaf Mccarthy MD~ Signed [facility]03-12-2025 [facility] Medical Records Department [address] [place] [address] History Physical Exam 07/17/24 1104 MR#: [id number] Acct: [id number] Name: PAU MUÑOZ Rep #: [id number] : 1950 74 From: Nawaf Mccarthy MD PCP: Dr. Ronit Doan DO Status:[facility] Location: [place] [address] HPI - General General Date of Admission: 07/17/24 Date of Service: 07/17/24 Chief Complaint: Right breast lump HPI Narrative PAU MUÑOZ, is a 74 F who presents for excisional biopsy/lumpectomy involving the right breast. She was recently seen in the office following ultrasound to workup a small palpable abnormality at the site of previous biopsy location. She presents today for excisional biopsy/lumpectomy COUNTS INCLUDE 234 BEDS AT THE [facility] Medical History Blood disorder Wears hearing aid [...] procedure and she wishe (more content not included)...[facility]03-12-2025 Consult note [facility] Medical Records Department [address] [place] [address] Pre-Anesthesia Evaluation 07/17/24 1048 MR#: [id number] Acct: [id number] Name: PAU MUÑOZ Rep #:[id number] : 1950 74 From: Moy Blair MD PCP: Dr. Ronit Doan, DO Status:REG S DC Y Race: C Location: [place] [address] ASA Classification* ASA Classification ASA Classification: 3 [...] Breast, Lumpectomy Anesthesia History Anesthesia History - gaming worker: Anesthesia History - gaming worker Hx Hospitalization No 07/15/24 13:26 Any Problems [...] take am of surgery PONV PONV - gaming worker: PONV - gaming worker Female Yes 07/15/24 13:26 HX of Motion [...] 07/17/24 10:26 Respiratory Assessment Respiratory Assessment - gaming worker: Respiratory Tract Infection Hx - gaming worker Hx Respiratory Tract Infection No 07/15/24 13:26 STOP Sleep Apnea STOP Sleep Apnea - gaming worker: STOP Sleep Apnea - gaming worker Hx Hypertension Yes: CONTROLLED ON MED 07/15/24 [...] Tobacco Use History Tobacco Use History - gaming worker: Tobacco Use History - gaming worker Tobacco Use Smoking Status Never smoker 07/15/24 13:26 Hx Tobacco Use No 07/15/24 13:26 Years Smoking Packs Smoked per Day Smoking Cessation Date was within the last 15 years Hx Smoking Cessation Date Hx Smoking Cessation Counseling Hematologic Medial History Hematologic Hx - gaming worker: Hematologic Medical Hx - mission support specialist Hx of Blood Transfusion No 07/15/24 [...] confused, unrespo /Reproduction History /Reproductive History - gaming worker: /Reproductive Hx- gaming worker Hx Now Gestational Age (in weeks): EDC: Hx Hx Para Hx Section SAB Active Medications Active Medications: Current Medications Generic Name Dose Route Start Last Admin Trade Name Freq PRN Reason Stop Dose Admin Sodium Chloride 1,000 mls @ 15 mls/hr 07/17/24 10:10 07/17/24 10:42 IV 07/22/24 23:29 15 mls/hr .Q48H ADOLFO Administration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 I, Héctor Fairchild MD, personally performed the services described in [...] which included: *preparing to see the patient *kocw-wj-lpen patient care *completing clinical documentation *obtaining and/or [...] MD June 13, 2023 documented in this encounterMercer County [facility] Hospital01-31-2024 History of Present illness Narrative* Ronit Doan [...] going to see Dr Moy Fairchild at [facility] at recommendation of Dr López for her back; he wanted her to see a spine doctor because of her hip/buttock pain She says that in the spring she will probably have right carpal tunnel syndrome She did note that her bowels are back to normal for her She did try farxiga prescribed by her developmental mathematics professor, but was unable to tolerate due to side effects Patient Care Team: Ronit Doan DO as PCP - General Ronit Doan DO as PCP - MSSP ACO Attributed Provider Timothy Palacio DO as Consulting Physician (Cardiology) Charline Hagen DO as Consulting Physician (Cardiology) Shanique Sebastian LPN as Cost Estimating Clerk (Case Management) Review of Systems Objective Vitals: [...] no new issues. She will see a facilities specialist due to the left-sided symptoms she had been having. She will see me again in 3 months. Lab orders entered. documented in this encounterRiverview Health Institute Work Phone: [phone]) [phone] Instructions* Patient Instructions* Ronit Doan DO - 06/07/2023 1:30 PM EST You are doing well. Schedule mammogram. See me again in 3 months. Close to next visit, get blood test done after fasting. documented in this encounterRiverview Health Institute Work Phone: [phone]) 267-970201-09-2024 History of Present illness Narrative* Charline S Promise, DO - 05/16/2023 2:45 PM EST Chief Complaint: Follow-up, Coronary Artery Disease, Heart Failure, Hyperlipidemia, Hypertension, and Atrial Fibrillation History Of Present Illness: Pau Muñoz is a 73 y.o. female presenting with CV dz. To ED 04/17/23 with SOB>Was told she had CHF.Had IV Lasix. started Farxiga Breathing OK now [...] Do not open capsule. Pt gets otc xdsajguauvy-ddudntfdf-mlukfrrs (Trelegy Ellipta) 200-62.5-25 mcg blister with device [...] ... Medtronic Sensia, model SEDR01, serial number [id number] Lead1 = Medtronic, model 5076, serial #[id number] ... location Right Lead2 = Medtronic, model 5076, serial #[id number] Hz of CHB ... Follows with EP (HFpEF) heart failure with preserved ejection fraction (CMS/HCC) Overview Had mild CHF per CXR / BNP on 03/06/2021 [facility] admit Had ED visit 04/2023 No [...] intake Charline Hagen DO documented in this encounterRiverview Health Institute Work Phone: 1(648) 551-112201-09-2024 Instructions* Patient Instructions* Charline Hagen DO - 05/16/2023 2:45 PM EST Weight loss Watch salt intake documented in this encounterUnMcCullough[facility] Work Phone: 1(155) 907-301401-03-2024 History of Present illness Narrative* Yg López [...] her orthopedic symptoms dictate. documented in this [facility] Work Phone: [phone] History of Present illness Narrative* Ronit Doan DO - 05/05/2023 12:00 PM EST Subjective Pau [...] called 911 and they took her to [facility] ER in [place] She was in severe pain , got some IV pain meds They admitted her and she went to [facility] and was there for 24 hours She saw PT and they supplied her a walker She says kimberly got so many pain meds that she is constipated: she will have huge bm's She says her bowels are not the same She is seeing Dr López She says she can't lay on her left hip OARRS: Ronit Doan, on 05/05/2023 11:32 AM I have personally [...] (Ultram) 50 mg tablet documented in this encounterRiverview Health Institute Work Phone: [phone] 148-355412-29-2023 Instructions* Patient Instructions* Ronit Doan DO - 05/05/2023 12:00 PM EST For bowels: I recommend trying Miralax ( or generic) . Do not take the colace. Can use once a day for a few days until things are back to normal. I also recommend trying Senekot which is a stimulant laxative. Could try doing them at different times of day. documented in this encounterRiverview Health Institute Work Phone: [phone] 102-129612-18-2023 Nurse Note* Rupert Cohen RN - 04/24/2023 [...] Vitalsstable, IV removed. Rupert Cohen Discharge R.N. [facility]12-18-[facility] Nurse Note* Rupert Cohen RN - 04/24/2023 [...] Rupert Cohen Discharge R.N. documented in this encounterRiverview Health Institute Work Phone: [phone] 191-878312-18-2023 History of Present illness Narrative* Alda Rosen OT - 04/24/2023 12:32 PM EST Occupational Therapy Evaluation Patient Name: Pau Muoñz Today's Date: 04/24/2023 Time Calculation Start Time: [...] General Reason for Referral: Pt presents to [facility] d/t acute L hip and low back [...] bars in shower) Prior Function: Level of [place]: Independent with ADLs and functional transfers, Independent [...] pain, pt reporting preferring to do it my way Transfers Transfer: Yes Transfer 1 Technique 1: [...] and LUE LUE: Within Functional Limits Outcome Measures:[facility] Daily Activity Putting on and taking [...] Education Comments No comments found. * Janae London, PT - 04/24/2023 11:45 AM EST Physical [...] Prior Function Per Pt/Caregiver Report Level of [place]: Independent with ADLs and functional transfers, Independent [...] logroll but pt prefers to do it my way Transfers Transfer: Yes Transfer 1 Technique 1: [...] assist by end of session. Outcome Measures: [facility] Basic Mobility Turning from your back [...] Left hip pain. Pharmacy reviewed the patient's xgnpn-ur-dqycbacsr medications and allergies for accuracy. The list below reflectives the updated INTERNAL COMMUNICATIONS MANAGER list. Please review each medication in order [...] not open capsule. Pt gets otc 04/23/2023 idasddnrfju-qnypajaqv-bwrxtxmb (Trelegy Ellipta) 200-62.5-25 mcg blister with device [...] (2.5mg) by mouth 4 times a day. Qza-Puw-Aoi-Mon) 90 tablet 3 04/23/2023 at 1800 warfarin [...] Below are additional concerns with the patient's INTERNAL COMMUNICATIONS MANAGER list. Mary Jo Horta CPhT documented in this [facility] Work Phone: 1(161) 957-196012-18-2023 History and physical note* Kira Olvera MD [...] by mouth once daily. 04/19/23 04/18/24 Timothy Perez Ramicone, DO dilTIAZem CD (Cardizem CD) 240 mg 24 hr capsule Take 1 capsule (240 mg) by mouth every 12 hours for14 days. 02/16/23 03/02/23 Timothy Palacio, DO esomeprazole (NexIUM) [address] capsule Take 1 capsule (20 mg) by mouth once daily in the morning. Take before meals. Do not open capsule. Pt gets otc Historical Provider, dtlxapchztp-pysvfzrft-zhaooaxm (Trelegy Ellipta) 200-62.5-25 mcg blister with device [...] by mouth once daily. 03/01/23 Timothy Palacio, magnesium oxide 500 mg capsule Take 1 capsule (500 mg) by mouth once daily. 08/01/18 Historical Provider, nitroglycerin (Nitrostat) 0.[address] under the tongue. 03/24/21 Historical Provider, pravastatin (Pravachol) 40 mg tablet Take 1 tablet (40 mg) by mouth once daily. 04/20/23 04/19/24 Charline Hagen, traMADol (Ultram) 50 mg tablet Take 1 tablet (50 mg) by mouth every 8 hours if needed for severe pain (7 - 10). 02/17/23 Ronit Doan DO warfarin (Coumadin) 2.5 mg tablet Take once daily . Patient taking differently: Take once daily . Varies 09/09/22 Ronit Doan DO warfarin sodium (COUMADIN ORAL) Take 1.25 [...] is performed using different testing methodology at [facility] than at other [facility]. Direct result comparisons should only be [...] is performed using different testing methodology at [facility] than at other system hospitals. Direct [...] 13-18 <7.5 7-12 <8.0 0- 6 7.5-8.5 [employer]. Diabetes Care 33(S1), May 2009. 08/16/2022 08:47 AM 6.5 (A) % Final Comment: Diagnosis of Diabetes-Adults Non-Diabetic: < or = 5.6% Increased risk for developing diabetes: 5.7-6.4% Diagnostic of diabetes: > or = 6.5% . Monitoring of Diabetes Age (y) Therapeutic Goal (%) Adults: >18 <7.0 Pediatrics: 13-18 <7.5 7-12 <8.0 0- 6 7.5-8.5 [employer]. Diabetes Care 33(S1), May 2009. VLDL Date/Time Value Ref Range Status 08/16/2022 08:47 AM 39 0 - 40 mg/dL Final 09/16/2021 08:14 AM 44 (H) 0 - 40 mg/dL Final 04/13/2020 05:00 PM 41 (H) 0 - 40 mg/dL Final [facility] Work Phone: 1([phone]) 306-790612-18-2023 History and physical note* Kira Olvera MD [...] by mouth once daily. 04/19/23 04/18/24 Timothy Perez Ramicone, DO dilTIAZem CD (Cardizem CD) 240 mg 24 hr capsule Take 1 capsule (240 mg) by mouth every 12 hours for14 days. 02/16/23 03/02/23 Timothy Cohnicone, DO esomeprazole (NexIUM) [address] capsule Take 1 capsule (20 mg) by mouth once daily in the morning. Take before meals. Do not open capsule. Pt gets otc Historical Provider, eirfhuoqxwo-pusdnansm-umuhkhmw (Trelegy Ellipta) 200-62.5-25 mcg blister with device Inhale 1 puff once daily. Historical Provider, furosemide (Lasix) 20 mg tablet Take by mouth. Historical Provider, furosemide (Lasix) 40 mg tablet Take 1 tablet (40 mg) by mouth once daily. 04/04/23 04/03/24 Gosia Hagen, DO ipratropium-albuteroL (Duo-Neb) 0.5-2.5 mg/3 mL nebulizer solution Take 3 mL by nebulization every 6 hours. 02/23/23 Ronti Doan, DO levalbuterol (Xopenex) 45 mcg/actuation inhaler [...] (40 mg) by mouth once daily. 04/20/23 HistoricalProviMD brii LABS AND IMAGING: Last Labs: CBC - [...] is performed using different testing methodology at [facility] than at other system hospitals. Direct [...] is performed using different testing methodology at [facility] than at other system hospitals. Direct [...] 13-18 <7.5 7-12 <8.0 0- 6 7.5-8.5 [employer]. Diabetes Care 33(S1), May 2009. 08/16/2022 08:47 AM 6.5 (A) % Final Comment: Diagnosis of Diabetes-Adults Non-Diabetic: < or = 5.6% Increased risk for developing diabetes: 5.7-6.4% Diagnostic of diabetes: > or = 6.5% . Monitoring of Diabetes Age (y) Therapeutic Goal (%) Adults: >18 <7.0 Pediatrics: 13-18 <7.5 7-12 <8.0 0- 6 7.5-8.5 [employer]. Diabetes Care 33(S1), May 2009. VLDL Date/Time Value Ref Range Status 08/16/2022 08:47 AM 39 0 - 40 mg/dL Final 09/16/2021 08:14 AM 44 (H) 0 - 40 mg/dL Final 04/13/2020 05:00 PM 41 (H) 0 - 40 mg/dL Final documented in this encounterUnMcCullough-[facility] Work Phone: [phone] 848-618612-18-2023 Plan of care note* Care Plan - [...] goals for the shift include no falls [facility] Work Phone: [phone]) 374-629212-18-2023 Miscellaneous Notes* Care Plan - Juan Barboza [...] shift include no falls documented in this encounterRiverview Health Institute Work Phone: [phone] 591-930412-18-2023 Plan of care note* Care Plan - Juan Barboza RN - 04/24/2023 4:18 AM EST The patient's goals for the shift include pain control The clinical goals for the shift include no falls [facility] Work Phone: [phone]) 707-949512-17-2023 History of Present illness Narrative* Faiza Marie [...] 23, 2023 9:10 PM documented in this encounterMercer County [facility] Hospital10-13-2023 History of Present illness Narrative* Ronit Doan DO - 02/17/2023 1:30 PM EDT Subjective Pau Muñoz is a 72 y.o. female who presents for Follow-up. She is doing INR once a month at the coumadin clinic Her aic was 6.5 Has been 6 to 6.5 historically Is not on any medication Only checks her sugars if she gets a bad headache: will have a high sugar She says her asthma is staus quo uses Trelegy once daily and has xoponex once a day and prn if needed She has an inhaler with her at all times She has been taking one tramadol every evening OARRS: Ronit Doan DO on 02/17/2023 1:42 PM I have personally [...] (Ultram) 50 mg tablet documented in this encounterRiverview Health Institute Work Phone: 1([phone]) [phone] Instructions* Patient Instructions* Ronit Doan DO - 02/17/2023 1:30 PM EDT You are doing well. See me in May for Medicare Wellness visit. documented in this encounterRiverview Health Institute Work Phone: [phone]) 141-894109-13-2023 History of Present illness Narrative* Patient identification verified with 2 patient identifiers. * Anticoagulation Monitoring Service: [facility]. * August 10, 2023. * The patient is being seen as a follow-up for anticoagulation monitoring. * Target INR 2-3. Monitoring practitioner Ronit Doan DO. * Date Warfarin Begun: August 01, 2022. * INR monitoring is per [facility] protocol. * The patient is on anticoagulation due to atrial fibrillation/flutter. * The patient is currently taking warfarin Tablet strength and color: 2.5 mg (Green) * Interval History: * Patient was last seen: January 04, 2023. * Previous INR was 2.6. * Incoming total weekly dose 13.75 mg. * Today's Clinic INR: [facility] INR 2.2. * Since last visit, the [...] with questions, concerns and changes. [facility] Work Phone: 1(393) 365-468208-30-2023 History of Present illness Narrative* Patient identification verified with 2 patient identifiers. * Anticoagulation Monitoring Service: [facility]. * August 10, 2023. * The patient is being seen as a follow-up for anticoagulation monitoring. * Target INR 2-3. Monitoring practitioner Ronit Doan DO. * Date Warfarin Begun: August 01, 2022. * INR monitoring is per [facility] protocol. * The patient is on anticoagulation due to atrial fibrillation/flutter. * The patient is currently taking warfarin Tablet strength and color: 2.5 mg (Green) 5 mg([place]). * Interval History: * Patient was last [...] with questions, concerns and changes. [facility] [employer] Phone: [phone]) 594-937108-15-2023 History of Present illness Narrative* Patient identification verified with 2 patient identifiers. * Anticoagulation Monitoring Service: [facility]. * August 10, 2023. * The patient is being seen as a follow-up for anticoagulation monitoring. * Target INR 2-3. Monitoring practitioner Ronit Doan DO. * Date Warfarin Begun: August 01, 2022. * INR monitoring is per [facility] protocol. * The patient is on anticoagulation due to atrial fibrillation/flutter. * The patient is currently taking warfarin Tablet strength and color: 2.5 mg (Green) 5 mg([place]). * Interval History: * Patient was last [...] educated on signs of bleeding/clotting. Anticoagulation Monitoring Service[facility] Phone: [phone]) 584-800408-10-2023 History of Present illness Narrative* Ronit Doan, [...] keep her next appt. documented in this encounterRiverview Health Institute Work Phone: [phone]) [phone] Instructions* Patient Instructions* Ronit Doan DO - [...] overlap with remaining doxycycline. documented in this encounterRiverview Health Institute Work Phone: [phone]) 820-865408-08-2023 History of Present illness Narrative* Patient identification verified with 2 patient identifiers. * Anticoagulation Monitoring Service: [facility]. * August 10, 2023. * The patient is being seen as a follow-up for anticoagulation monitoring. * Target INR 2-3. Monitoring practitioner Ronit Doan DO. * Date Warfarin Begun: August 01, 2022. * INR monitoring is per [facility] protocol. * The patient is on anticoagulation due to atrial fibrillation/flutter. * The patient is currently taking warfarin Tablet strength and color: 2.5 mg (Green) 5 mg(Lafourche). * Interval History: * Patient was last [...] with questions, concerns and changes. Anticoagulation Monitoring Service-[facility] Phone: [phone] History of Present illness Narrative* Ronit Doan, DO - 11/11/2022 1:30 PM EDT Subjective Pau Muñoz is a 72 y.o. female who presents for Follow-up (3 month follow up visit). She has a cough that is intermittent. 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 She is stable. [facility] Phone: [phone] Instructions* Patient Instructions* Ronit Doan DO - 11/11/2022 1:30 PM EDT See me again in 3 months. Get A1c test close to next visit. [facility] Work Phone: [phone] 410-378805-30-2023 History of Present illness Narrative* Ronit Doan DO - 10/04/2022 3:45 PM EDT Bsihop Muñoz is a 72 y.o. female who [...] Free T4 if abnormal [facility] Work Phone: [phone] Instructions* Patient Instructions* Ronit Doan DO - 10/04/2022 3:45 PM EDT Keep next appt with me in November. I entered blood test orders. [facility] Work Phone: [phone] History of Present illness Narrative* Patient identification verified with 2 patient identifiers. * Anticoagulation Monitoring Service: [facility]. * August 10, 2023. * The patient is being seen as a follow-up for anticoagulation monitoring. * Target INR 2-3. Monitoring practitioner Ronti Doan DO. * Date Warfarin Begun: August 01, 2022. * INR monitoring is per [facility] protocol. * The patient is on anticoagulation due to atrial fibrillation/flutter. * The patient is currently taking warfarin Tablet strength and color: 5 mg(Lafourche) * Interval History: * Patient was last [...] educated on signs of bleeding/clotting. Anticoagulation Monitoring Service-[facility] Phone: [phone]) 611-540804-25-2023 History of Present illness Narrative* Patient identification verified with 2 patient identifiers. * Anticoagulation Monitoring Service: [facility]. * August 10, 2023. * The patient is being seen as a follow-up for anticoagulation monitoring. * Target INR 2-3. Monitoring practitioner Ronit Doan DO. * Date Warfarin Begun: August 01, 2022. * INR monitoring is per [facility] protocol. * The patient is on anticoagulation due to atrial fibrillation/flutter. * The patient is currently taking warfarin Tablet strength and color: 5 mg(Lafourche) * Interval History: * Patient was last [...] educated on signs of bleeding/clotting. Anticoagulation Monitoring Service[facility] Phone: [phone] History of Present illness Narrative* Patient identification verified with 2 patient identifiers. * Anticoagulation Monitoring Service: [facility]. * August 10, 2023. * The patient is being seen as a follow-up for anticoagulation monitoring. * Target INR 2-3. Monitoring practitioner Ronit Doan DO. * Date Warfarin Begun: August 01, 2022. * INR monitoring is per [facility] protocol. * The patient is on anticoagulation due to atrial fibrillation/flutter. * The patient is currently taking warfarin Tablet strength and color: 5 mg(Lafourche) * Interval History: * Patient was last seen: August 19, 2022. * Previous INR was 3.9. One dose of warfarin was held and TWD was reduced at time of last appointment. * Incoming total weekly dose 27.5 mg. * Today's Clinic INR: [facility] INR 4.9. * Since last visit, the [...] educated on signs of bleeding/clotting. Anticoagulation Monitoring Service[facility] Phone: [phone] History of Present illness Narrative* Ronit Doan DO - 08/11/2022 9:30 AM EDT Subjective Pau Muñoz is a 72 y.o. female who presents for [place] started her on trelegy which completely stopped her cough Trelegy is $800 She is trying to go through the company to get it. She was dropped by norris gamboa for her part D plan because she [...] present See med monitoroing [facility] Work Phone: [phone]) [phone] Instructions* Patient Instructions* Ronit Doan DO - 08/11/2022 9:30 AM EDT See me in 3 months. [facility] Work Phone: [phone] History of Present illness NarrativeThis patient presents [...] any fever chills nausea vomiting or headache- [facility] DO Work Phone: [phone] History of Present illness Narrative* cough and bad sore throat * sore throat began 4 days ago * no nasal congestion * says sometimes I feel i have a mucus plug in the back of my throat and feels she can't breathe until she [...] heart disease. [facility] Work Phone: [phone] NotePROCEDURE DETAILS Preoperative Diagnosis: Acquired trigger finger of right middle finger, M65.331 Postoperative Diagnosis: Acquired trigger finger of right middle finger, M65.331 Surgeon: Yg López Resident/Fellow/Other Direct Care Staffer: Keeley Kessler Procedure: 1. RIGHT MIDDLE FINGER A-1 LINN RELEASE Anesthesia: No anesthesiologist associated with this case Estimated Blood Loss: 1mL Blood Replaced: none Findings: thickened A-1 linn Specimens(s) Collected: no, Complications: none Tourniquet Times: 4 minutes at 250mmHg on right forearm Patient Returned To/Condition: stable Date of Dictation: 01-Mar-2022 Dictated By: Yg López MD Dictation Job Number: [id number] Attestation: Note Completion: Attending AttestationI performed the procedure without a resident Electronic Signatures: Yg López) (Signed 01-Mar-2022 10:11) Authored: Post-Operative Note, Chart Review, Note Completion Last Updated: 01-Mar-2022 10:11 by Yg López)[facility] 03-01-2022 NoteHistory & Physical Reviewed: I have [...] Completion Last Updated: 01-Mar-2022 04:34 by Yg López)[facility] 01-17-2022 History of Present illness Narrative* she saw Dr López, and she is going to have a trigger finger release on her right hand. * She also has a 6-month ultrasound status post her carotid endarterectomy to examine the opposite side. * She has an appointment scheduled with Felisha LACY at 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 * she has never been treated for DM * her main dietary downfall are sweets at restorationism events or going out with friends * [...] or diarrhea. [facility] Work Phone: [phone] History of Present illness Narrative Presents with 2 to 3 days of mid back spasms. States that she was reaching to change her shower curtain and now has tightness in her mid back. Pain does radiate to the low back but not to the lower extremities. No GI or incontinence. Home treatment with topicals has been ineffective. States juan antonio has used Flexeril in the remote past with good relief and requests a short prescription of that. She has not had any falls or any direct trauma to the back[facility] Work Phone: [phone]) 421-202103-01-2022 History of Present illness Narrative* she has [...] on pulmicort [facility] Work Phone: [phone]) [phone] History of Present illness Narrative* she has [...] or diarrhea -[facility] Work Phone: [phone] History of Present illness Narrative* she had gone to the ER twice in early Jun * says they wanted to keep me, but I chose to go home * says I was afraid of all the germs int he hsopita * Jun 08: got 2 nebulizers and solumedrol iv and then a 10 day prednisone taper * : got 2 more nebuizers and ztihromax * she says she had seen pulm in [place], but wanted to see Dr Gibson on [...] in August -[facility] Work Phone: [phone]) [phone] Chief complaint Narrative - Reported* PAU MUÑOZ is being seen for follow-up of a hospitalization for evaluation. * Patient is here for in office visit patient was d/c from [facility] on 03/09/2021 w/ CHF had Cath w/o stent [facility] Work Phone: [phone]) [phone] Chief complaint Narrative - Reported* PAU MUÑOZ is being seen for follow-up of a hospitalization for evaluation. * Patient is here for in office visit patient was d/c from [facility] on 03/09/2021 w/ CHF had Cath w/o stent [facility] Work Phone: [phone] History of Present illness Narrative* Admitted to [facility] 03/06/21 with acute SOB * Had troponin bump-cath with non-obstructive dz * She did have increased BNP and mild CHF on CXR-was DC'ed on increased dose Lasix * No problems at R groin cath site * No definite angina * Some ANDREWS * Occasional palpitations * Had LH episode last week in setting of dehydration * No edema [facility] Work Phone: [phone]) 427-679610-30-2021 History of Present illness Narrative* Admitted to [facility] 03/06/21 with acute SOB * Had troponin bump-cath with non-obstructive dz * She did have increased BNP and mild CHF on CXR-was DC'ed on increased dose Lasix * No problems at R groin cath site * No definite angina * Some ANDREWS * Occasional palpitations * Had LH episode last week in setting of dehydration * No edema [facility] Work Phone: [phone] History of Present illness Narrative* last Fri [...] a mucus plug * no ear fullness -[facility] Work Phone: [phone]) [phone] History of Present illness NarrativePatient presents with [...] She is also taken amoxicillin and done well.[facility] Work Phone: [phone]) [phone] History of Present illness NarrativePatient presents with [...] She is also taken amoxicillin and done well.[facility] Work Phone: [phone] History of Present illness Narrative* 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 * had blood in august * she sees the LETTERSET PRESS SET UP OPERATOR at [facility] for MGUS management, * She was found [...] by herself * had been working in [employer] until last fall 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 [facility] * september 2018 tetanus booster after injuring a finger * uses antibiotic prophylactically for dental procedure * state she has had both pneumonia vaccines [facility] Work Phone: [phone] History of Present illness Narrative* 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 injury to finer * uses pcn prophylaxis * had pneumovx x 2 [facility] Work Phone: [phone]) [phone] History of Past illness Narrative* Problem Noted Date Diagnosed Date Resolved Date POST OP HYPERGLYCEMIA 08/30/20082008 Overview: 09/01 no coverage in 24 hours. Will d/c accuchecks and SSI today / documented as of this encounter (statuses as of 04/24/2023) [facility]04-25-2009 History of Past illness Narrative* Problem Noted Date Diagnosed Date Resolved Date POST OP HYPERGLYCEMIA 08/30/20082008 Overview: 09/01 no coverage in 24 hours. Will d/c accuchecks and SSI today / documented as of this encounter (statuses as of 06/28/2023) [place] [address]-25-2009 History of Past illness Narrative* Problem Noted Date Diagnosed Date Resolved Date POST OP HYPERGLYCEMIA 08/30/20082008 Overview: 09/01 no coverage in 24 hours. Will d/c accuchecks and SSI today / documented as of this encounter (statuses as of 08/01/2023) [facility]04-25-2009 History of Past illness Narrative* Problem Noted Date Diagnosed Date Resolved Date POST OP HYPERGLYCEMIA 08/30/20082008 Overview: 09/01 no coverage in 24 hours. Will d/c accuchecks and SSI today / documented as of this encounter (statuses as of 08/09/2023) [place] [address]-25-2009 History of Past illness Narrative* Problem Noted Date Diagnosed Date Resolved Date POST OP HYPERGLYCEMIA 08/30/20082008 Overview: 09/01 no coverage in 24 hours. Will d/c accuchecks and SSI today / documented as of this encounter (statuses as of 08/11/2023) [facility] Narrative - ReportedThe patient presents to the office today for an initial evaluation. NPV; Severe Carotid Stenosis, Left 546/217.[facility] [address] Work Phone: Consult note Author Zoey Aggarwal [facility] Note Date/Time July 17, 2024 12: 35pm [facility] Medical Records Department [address] [place] [address] Anesthesia Postop Eval I 07/17/24 1234 MR#: [id number] Acct: [id number] Name: PAU MUÑOZ Rep #:[id number] : 1950 74 From: Zoey Aggarwal PCP: Dr. Ronit Doan, DO Status:REG S DC Y Race: C Location: [place] [address] Anesthesia: Postop Eval I Current Vital Signs [...] Anesthesia document: Postop Eval 1 completed: Yes 07/17/245 <Electronically signed by Zoey Aggarwal > Date _ Zoey Jara Signature: Date CC: ~ Signed [facility] Work Phone: Consult note Author Moy Blair [facility] Note Date/Time July 17, 2024 1:2 4pm [facility] Medical Records Department [address] [place] [address] Anesthesia Postop Eval II 07/17/24 1256 MR#: [id number] Acct: [id number] Name: PAU MUÑOZ Rep #:[id number] : 1950 74 From: Moy Blair MD PCP: Dr. Ronit Doan, DO Status:REG S DC Y Race: C Location: [place] [address] Anesthesia Postop Eval I Sum Postop Eval Completion status Anesthesia document: Postop Eval 1 completed: Yes Anesthesia Postop Eval I Summary Anesthesia Postop Eval I Summary: Anesthesia Postop Eval I: Assessment Summary Airway patent Yes 07/17/24 12:35 GLUER AND SLICER HAND.GDOTT Spontaneous unlabored Yes 07/17/24 12:35 GLUER [employer] HAND.GDOTT respirations Mental status Awake,Calm 07/17/24 12:35 GLUER AND SLICER HAND.GDOTT nausea No 07/17/24 12:35 GLUER AND SLICER HAND.GDOTT Vomiting No 07/17/24 12:35 GLUER AND SLICER HAND.GDOTT Anesthesia Postop Eval I: Fluid Summary Crystalloid volume administer 700 07/17/24 12:35 GLUER AND SLICER HAND.GDOTT (ml) Colloids volume administered ( ml) Blood Product volume administered (ml) Total IV fluid infused 700 07/17/24 12:35 GLUER AND SLICER HAND.GDOTT Anesthesia Postop Eval I: Summary Notes Anesthesia Complication No 07/17/24 12:35 GLUER AND SLICER HAND.GDOTT Anesthesia Complication Comment: Post-operative progress note Anesthesia: Postop Eval II Evaluation Mental status: Awake Pain Level: 0 nausea: No Vomiting: No 07/17/24 1256 <Electronically signed by Moy Blair MD > Date _ Moy Blair MD Cosigner Signature: Date CC: ~ Signed [facility] Work Phone: Discharge summary Author Nawaf Mccarthy [facility] Note Date/Time July 17, 2024 12: 21pm [facility] Medical Records Department [facility] [place] [address] Instructions for Home/Discharge Instructions 07/17/24 1215 MR#: [id number] Acct: [id number] Name: PAU MUÑOZ Rep #:[id number] : [...] Nawaf Mccarthy Primary Care Provider: Ronit Doan Print Language: Nigerien Discharge Orders/Prescriptions Prescriptions: New hydrocodone-acetaminophen 5-325 mg [...] CC: Dr. Ronit Doan DO ~ Signed [facility] Work Phone: Evaluation + Plan note No data available for this section [facility] Evaluation note* Constitutional: Alert and oriented x3Skin: [...] motionExtremities: Palpable peripheral pulsesNeurological: Alert and oriented x2Vmseok: DeferredLymphatic: No significant lymphadenopathyPsychological: Appropriate mood and behavior [facility] Other Phone (unformatted): [phone] note* Diagnosis Chronic atrial fibrillation (CMS/HCC)- Primary Atrial fibrillation Prediabetes Other abnormal glucose Hyperglycemia Other abnormal glucose Medication monitoring encounter Encounter for therapeutic drug monitoring Chronic low back pain, unspecified back pain laterality, unspecified whether sciatica present Warfarin anticoagulation documented in this encounter [facility] Work Phone: [phone] note* Diagnosis Prediabetes- Primary Other abnormal glucose Longstanding persistent atrial fibrillation (CMS/HCC) Moderate persistent asthma without complication documented in this encounter [facility] Work Phone: [phone] note* Diagnosis Elevated glucose- Primary Other abnormal glucose Prediabetes Other abnormal glucose Longstanding persistent atrial fibrillation (CMS/HCC) Essential hypertension Unspecified essential hypertension Moderate persistent asthma without complication Chronic heart failure with preserved ejection fraction (CMS/HCC) documented in this encounter [facility] Work Phone: [phone] note* Diagnosis Cellulitis of right lower extremity- Primary documented in this encounter [facility] Work Phone: [phone] note* Diagnosis Type 2 diabetes mellitus with hyperglycemia, without long-term current use of insulin (CMS/HCC)- Primary Generalized arthritis Primary osteoarthritis involving multiple joints Moderate persistent asthma without complication Longstanding persistent atrial fibrillation (CMS/HCC) documented in this encounter [facility] Work Phone: [phone] note* Diagnosis Cardiac pacemaker in situ CHB (complete heart block) (CMS/HCC) Atrioventricular block, complete documented in this encounter [facility] Work Phone: [phone] note* Diagnosis Cardiac pacemaker in situ CHB (complete heart block) (CMS/HCC) Atrioventricular block, complete documented in this encounter [facility] Work Phone: [phone] note* Diagnosis Dyspnea on exertion Other dyspnea and respiratory abnormality documented in this encounter [facility] Work Phone: [phone] note* Diagnosis Sinoatrial node dysfunction (CMS/HCC) Sinoatrial node dysfunction documented in this encounter [facility] Work Phone: [phone] note* Diagnosis Sinoatrial node dysfunction (CMS/HCC) Sinoatrial node dysfunction documented in this encounter [facility] Work Phone: [phone] note* Diagnosis Left hip pain- Primary Pain in joint, pelvic region and thigh Left hip pain Pain in joint, pelvic region and thigh Low back pain Lumbago documented in this encounter [facility] Work Phone: Evaluation note* Diagnosis Left low back pain, unspecified chronicity, unspecified whether sciatica present- Primary documented in this encounter [facility] Work Phone: [phone] note* Diagnosis Stenosis of carotid artery, unspecified laterality- Primary Heart failure with preserved ejection fraction, unspecified HF chronicity ([facility]) Atherosclerosis of coronary artery of [place] heart, unspecified vessel or lesion type, unspecified whether angina present Essential hypertension Unspecified essential hypertension Paroxysmal atrial fibrillation ([facility]) Atrial fibrillation Dyslipidemia Other and unspecified hyperlipidemia Presence of cardiac pacemaker Cardiac pacemaker in situ documented in this encounter [facility] Work Phone: [phone] note* Diagnosis Left buttock pain- Primary Unspecified myalgia and myositis Generalized arthritis Type 2 diabetes mellitus with hyperglycemia, without long-term current use of insulin ([facility]) Left ventricular dysfunction Left heart failure Longstanding persistent atrial fibrillation ([facility]) Spondylosis with myelopathy, lumbar region Primary osteoarthritis of left hip Acute hip pain, left documented in this encounter [facility] Work Phone: [phone] note* Diagnosis Type 2 diabetes mellitus with hyperglycemia, without long-term current use of insulin ([facility])- Primary Essential hypertension Unspecified essential hypertension Visit for screening mammogram Encounter for preventative adult health care examination Encounter for screening for other disorder documented in this encounter [facility] Work Phone: Evaluation note* Diagnosis Visit for screening mammogram Carotid stenosis- Primary Occlusion and stenosis of carotid artery without mention of cerebral infarction Carotid stenosis, bilateral Occlusion and stenosis of carotid artery without mention of cerebral infarction documented in this encounter [facility] Work Phone: Evaluation note* Diagnosis Acute exacerbation of chronic low back pain- Primary Lumbago Cardiac pacemaker in situ Shortness of breath Chronic anticoagulation Long-term (current) use of anticoagulants Spinal stenosis of lumbar region with neurogenic claudication Spinal stenosis, lumbar region, with neurogenic claudication [facility] Diagnosis AICD (automatic cardioverter/defibrillator) present- Primary Automatic implantable cardiac defibrillator in situ [facility]* Diagnosis Spinal stenosis, lumbar region with neurogenic claudication- Primary CAD, multiple vessel Coronary atherosclerosis of unspecified type of vessel, [place] or graft Presence of cardiac pacemaker Cardiac pacemaker in situ [facility]* Diagnosis Atrioventricular block, complete (CMS/HCC) Atrioventricular block, complete Presence of cardiac pacemaker Cardiac pacemaker in situ Carotid stenosis- Primary Occlusion and stenosis of carotid artery without mention of cerebral infarction Carotid stenosis, bilateral Occlusion and stenosis of carotid artery without mention of cerebral infarction documented in this encounter [facility] Work Phone: Evaluation note* Diagnosis Atrioventricular block, complete (CMS/HCC) Atrioventricular block, complete Presence of cardiac pacemaker Cardiac pacemaker in situ Carotid stenosis- Primary Occlusion and stenosis of carotid artery without mention of cerebral infarction Carotid stenosis, bilateral Occlusion and stenosis of carotid artery without mention of cerebral infarction documented in this encounter [facility] Work Phone: Evaluation note* Diagnosis Complete atrioventricular block (CMS/HCC) Atrioventricular block, complete Presence of cardiac pacemaker Cardiac pacemaker in situ Carotid stenosis- Primary Occlusion and stenosis of carotid artery without mention of cerebral infarction Carotid stenosis, bilateral Occlusion and stenosis of carotid artery without mention of cerebral infarction documented in this encounter [facility] Work Phone: Evaluation note* Diagnosis Carotid stenosis [...] of cerebral infarction documented in this encounter [facility] Work Phone: Evaluation note* Diagnosis Carotid stenosis [...] of cerebral infarction documented in this encounter [facility] Work Phone: Evaluation note* Diagnosis Medication monitoring encounter- Primary Encounter for therapeutic drug monitoring Type 2 diabetes mellitus with hyperglycemia, without long-term current use of insulin (Multi) Essential hypertension Unspecified essential hypertension Generalized arthritis Paroxysmal atrial fibrillation (Multi) Atrial fibrillation Spinal stenosis of lumbar region with neurogenic claudication documented in this encounter [facility] Work Phone: Evaluation note* Diagnosis Complete atrioventricular block (Multi)- Primary Atrioventricular block, complete Presence of cardiac pacemaker Cardiac pacemaker in situ documented in this encounter [facility] Work Phone: Evaluation note* Diagnosis Paroxysmal atrial fibrillation (Multi) Atrial fibrillation 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, complete Presence of cardiac pacemaker Cardiac pacemaker in situ documented in this encounter [facility] Work Phone: Evaluation note* Diagnosis Spinal stenosis, lumbar region with neurogenic claudication- Primary CAD, multiple vessel Coronary atherosclerosis of unspecified type of vessel, [place] or graft AICD (automatic cardioverter/defibrillator) present Automatic implantable cardiac defibrillator in situ Cardiac pacemaker in situ Spinal stenosis of lumbar region with neurogenic claudication Spinal stenosis, lumbar region, with neurogenic claudication [facility] Chronic heart failure with preserved [...] of anticoagulant therapy documented in this encounter [facility] Work Phone: Evaluation note* Diagnosis Chronic heart [...] pacemaker in situ documented in this encounter [facility] Work Phone: Evaluation note* Diagnosis Atherosclerosis of coronary artery of [place] heart, unspecified vessel or lesion type, unspecified whether angina present- Primary Heart failure with preserved ejection fraction, unspecified HF chronicity (Multi) Essential hypertension Unspecified essential hypertension Paroxysmal atrial fibrillation (Multi) Atrial fibrillation Stenosis of carotid artery, unspecified laterality Hypercholesterolemia Pure hypercholesterolemia High triglycerides Unspecified disorder of lipoid metabolism Presence of cardiac pacemaker Cardiac pacemaker in situ documented in this encounter [facility] Work Phone: Evaluation note* Diagnosis Chronic heart [...] accident, initial encounter documented in this encounter [facility] Work Phone: Evaluation note* Diagnosis Chronic heart [...] Atrioventricular block, complete documented in this encounter [facility] Work Phone: Evaluation note* Diagnosis Chronic heart [...] Unspecified essential hypertension documented in this encounter [facility] Work Phone: Evaluation note* Diagnosis Chronic heart [...] preserved ejection fraction documented in this encounter [facility] Work Phone: Evaluation note* Diagnosis Chronic heart [...] On warfarin therapy documented in this encounter [facility] Work Phone: Evaluation note* Diagnosis Chronic heart [...] Breast pain Mastodynia documented in this encounter [facility] Work Phone: Evaluation note* Diagnosis Chronic heart [...] upper inner quadrant documented in this encounter [facility] Work Phone: Evaluation note* Diagnosis Chronic heart [...] therapeutic drug monitoring documented in this encounter [facility] Work Phone: Evaluation note* Diagnosis Chronic heart [...] pacemaker in situ documented in this encounter [facility] Work Phone: Evaluation note* Diagnosis Chronic heart [...] left carotid artery documented in this encounter [facility] Work Phone: Evaluation note* Diagnosis Spinal stenosis, lumbar region with neurogenic claudication CAD, multiple vessel Coronary atherosclerosis of unspecified type of vessel, [place] or graft AICD (automatic cardioverter/defibrillator) present Automatic implantable cardiac defibrillator in situ Cardiac pacemaker in situ Spinal stenosis of lumbar region with neurogenic claudication Spinal stenosis, lumbar region, with neurogenic claudication [facility] Diagnosis Spinal stenosis, lumbar region with neurogenic claudication CAD, multiple vessel Coronary atherosclerosis of unspecified type of vessel, [place] or graft AICD (automatic cardioverter/defibrillator) present Automatic implantable cardiac defibrillator in situ Cardiac pacemaker in situ Spinal stenosis of lumbar region with neurogenic claudication Spinal stenosis, lumbar region, with neurogenic claudication [facility] Diagnosis Spinal stenosis, lumbar region with neurogenic claudication CAD, multiple vessel Coronary atherosclerosis of unspecified type of vessel, [place] or graft AICD (automatic cardioverter/defibrillator) present Automatic implantable cardiac defibrillator in situ Cardiac pacemaker in situ Spinal stenosis of lumbar region with neurogenic claudication Spinal stenosis, lumbar region, with neurogenic claudication [facility] Diagnosis Chronic heart failure with preserved [...] of cerebral infarction documented in this encounter [facility] Work Phone: Evaluation note* Diagnosis Chronic heart [...] retinal disease (Multi) documented in this encounter [facility] Work Phone: Evaluation note* Diagnosis Chronic heart [...] pacemaker in situ documented in this encounter [facility] Work Phone: Evaluation note* Diagnosis Chronic heart [...] involving multiple joints documented in this encounter [facility] Work Phone: Evaluation note* Diagnosis Chronic heart [...] pacemaker in situ documented in this encounter [facility] Work Phone: History of Present illness Narrative* This is a 70-year-old female with a history of atrial fibrillation and complete heart block. She was recently seen in the emergency department at [facility] with shortness of breath. She had mild CHF and was placed on a higher dose of oral furosemide. The hospital records were reviewed with her during today's visit. * The patient was hospitalized early in 2019 at [facility] because of pneumonia. She hadanother hospitalization in 2020 for COVID-19. No chest pain or any pacemaker related problems at this time. [id number] Work Phone: History of Present illness Narrative* [...] morning of some clear to bloody fluid [facility] Work Phone: History of Present illness Narrative* This is a 70-year-old female with a history of atrial fibrillation and complete heart block. She has noticed an increase in dyspnea on exertion. No orthopnea. No chest pain or palpitations. * Pau was hospitalized early in 2019 at [facility] because of pneumonia. She had another hospitalization in 2020 because of COVID-19. [address] Work Phone: History of Present illness Narrative* This is a 70-year-old female with a history of atrial fibrillation and complete heart block. She has noticed an increase in dyspnea on exertion. No orthopnea. No chest pain or palpitations. * Pau was hospitalized early in 2019 at [facility] because of pneumonia. She had another hospitalization in 2020 because of COVID-19. [facility] Work Phone: History of Present illness Narrative* [...] for VSD, CHF, pneumonia, hypertension, hypercholesterolemia, asthma [facility] Work Phone: History of Present illness Narrative* This is a 70-year-old female with a history of atrial fibrillation and complete heart block. She has noticed an increase in dyspnea on exertion. No orthopnea. No chest pain or palpitations. * Pau was hospitalized early in 2019 at [facility] because of pneumonia. She had another hospitalization in 2020 because of COVID-19. [facility] Work Phone: History of Present illness NarrativeThidarya is a 71-year-old female with atrial fibrillation and complete heart block. She has a Medtronicpermanent pacemaker. Currently no complaints of palpitations or chest pain. She still has dyspnea on exertion at times.[facility] [address] [place] Work Phone: History of Present [...] any fever chills nausea vomiting or headache [facility] Work Phone: History of Present illness Narrative* Has chronic ANDREWS- no wheeze * Occasional transient palpitations * No CP/dizziness/LH/edema * Active but no regular exercise * No bleeding with Xarelto [facility] Work Phone: History of Present illness NarrativePatient comes in today for first postoperative visit after undergoing a right middle finger triggerrelease. She has had very little pain. She has been able to use her right middle finger without difficulty.[facility] MAC[address] [place] Work Phone: History of [...] mile * she visits family, goes to [employer] a lot [facility] Work Phone: History of Present illness Narrative* Patient identification verified with 2 patient identifiers. * Anticoagulation Monitoring Service: [facility]. * Enrollment/Re-enrollment date: August 17, [...] taking warfarin Tablet strength and color: 5 mg(Lafourche) * Interval History: * Previous INR was [...] total weekly dose 30 mg. [facility] Work Phone: History of Present illness Narrative* Patient identification verified with 2 patient identifiers. * Anticoagulation Monitoring Service: [facility]. * August 10, 2023. * [...] strength and color: 2.5 mg (Green) 5 mg(Lafourche). * Interval History: * Patient was last [...] educated on signs of bleeding/clotting. [facility] Work Phone: Instructions* Name Dates Details Instructions not documented [facility] Work Phone: Instructions* Instruction Text Follow up with your doctor. [facility] Reason for referral (narrative)* Consultation (Routine) - Authorized Specialty Diagnoses / Procedures Referred By Nikki pandey Referred To Contact Cardiology Diagnoses Heart failure with preserved ejection fraction, unspecified HF chronicity ([facility]) Procedures Follow Up In Cardiology Charline Hagen DO [address] [facility] [address], [place] [id number] Referral ID Status Reason Start Date Expiration Date V isits Requested Visits Authorized [id number] Authorized 05/16/2023 05/15/2024 1 1 [facility] Work Phone: Reason for referral (narrative)* Consultation (Routine) - Authorized Specialty Diagnoses / Procedures Referred By Nikki pandey Referred To Contact Cardiology Diagnoses Heart failure with preserved ejection fraction, unspecified HF chronicity (Multi) Procedures Follow Up In Cardiology Charline Hagen DO [address], [address] [address] Referral ID Status Reason Start Date Expiration Date V isits Requested Visits Authorized [id number] Authorized 11/14/2023 11/13/2024 1 1 * Cardiovascular (Routine) - Authorized Specialty Diagnoses / Procedures Referred By Contac t Referred To Contact Diagnoses Heart failure with preserved ejection fraction, unspecified HF chronicity (Multi) Procedures ECG 12 Lead Charline Hagen DO [address] [facility] 3, [address] [address] Referral ID Status Reason Start Date Expiration Date V isits Requested Visits Authorized [id number] Authorized 11/14/2023 11/13/2024 1 1 [facility] Work Phone: Revbco for referral (narrative)No reason for referral information availableWTriHealth [facility] Work Phone: Reason for visit Narrative* Imaging (Routine) - Authorized Specialty Diagnoses / Procedures Referred By Contac t Referred To Contact Cardiology Diagnoses Atrioventricular block, complete (Multi) Procedures Cardiac device check - In Clinic Timothy Palacio DO [address], [address] [address] Phone: tel: fax: Referral ID Status Reason Start Date Expiration Date Visits Requested Visits Authorized [id number] Authorized Perform Procedure 04/12/2024 04/12/2025 1 1 [facility] Work Phone: Repiou for visit Narrative* Imaging (Routine) - Authorized Specialty Diagnoses / Procedures Referred By Contac t Referred To Contact Radiology Diagnoses Breast pain Procedures BI mammo bilateral diagnostic tomosynthesis Ronit Doan DO [address] [facility], [place] [facility] [address] [place] [address] Phone: tel: fax: Referral ID Status Reason Start Date Expiration Date Visits Requested Visits Authorized [id number] Authorized Perform Procedure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 [address] [address] PCP - General 11/17/20 Ronit Daon DO [address] [facility], [address] [place] [address] PCP - MSSP ACO Attributed Provider 05/08/21 Charline Hagen DO [address] [place] [address] Consulting Physician Cardiology 03/24/21 Timothy Palacio, DO [address], [address] [place] [address] Consulting Physician Cardiology 03/22/17 [employer] Supervisor Relationship Specialty Start Date End Date Ronit Doan DO [address] [facility], [facility] [address] [place] [address] PCP - General 11/17/20 Ronit Doan DO [address] [facility], [facility] [address] [place] [address] PCP - MSSP ACO Attributed Provider 05/08/21 Charline Hagen, [address] [place] [address] Consulting Physician Cardiology 03/24/21 iTmothy Palacio, [address], [address] [place] [address] Consulting Physician Cardiology 03/22/17 [employer] Supervisor Relationship Specialty Start Date End Date Ronit Doan DO [address] [facility], [address] [place] [address] PCP - General 11/17/20 Ronit Doan DO [address] [facility], [address] [place] [address] PCP - [facility] Attributed Provider 05/08/21 Charline Hagen DO [address] [facility] [address] [place] [address] Consulting Physician Cardiology 03/24/21 Timothy Palacio, [address], [address] [address] Consulting Physician Cardiology 03/22/17 [employer] Supervisor Relationship Specialty Start Date End Date Ronit Doan DO [address] [facility], [address] [address] PCP - General 11/17/20 Ronit Doan DO [address] [facility], [address] [address] PCP - MSSP ACO Attributed Provider 05/08/21 Charline Hagen DO [address] [place] [address] Consulting Physician Cardiology 03/24/21 Timothy Palacio, [address], [address] [address] Consulting Physician Cardiology 03/22/17 [employer] Supervisor Relationship Specialty Start Date End Date Ronit Doan DO [address] [facility], [address] [place] [address] PCP - General 11/17/20 Ronit Doan DO [address] [facility], [address] [place] [address] PCP - MSSP ACO Attributed Provider 05/08/21 Charline Hagen, [address] [place] [address] Consulting Physician Cardiology 03/24/21 Timothy Palacio, [address], [address] [place] [address] Consulting Physician Cardiology 03/22/17 [employer] Supervisor Relationship Specialty Start Date End Date Ronit Doan DO [address] [facility], [address] [place] [address] PCP - General 11/17/20 Ronit Doan DO [address] [facility], [address] [place] [address] PCP - MSSP ACO Attributed Provider 05/08/21 Charline Hagen, [address] [place] [address] Consulting Physician Cardiology 03/24/21 Timothy Palacio, DO [address], [address] [place] [address] Consulting Physician Cardiology 03/22/17 [employer] Supervisor Relationship Specialty Start Date End Date Ronit Doan DO [address] [facility], [facility] [address] [place] [address] PCP - General 11/17/20 Ronit Doan DO [address] [facility], [address] [address] PCP - MSSP ACO Attributed Provider 05/08/21 Charline Hagen DO [address] [facility] [address] [place] [address] Consulting Physician Cardiology 03/24/21 Timothy Palacio, [address], [address] [address] Consulting Physician Cardiology 03/22/17 [employer] Supervisor Relationship Specialty Start Date End Date Ronit Doan DO [address] [facility], [address] [address] PCP - General 11/17/20 Ronit Daon DO [address] [facility], [address] [address] PCP - MSSP ACO Attributed Provider 05/08/21 Charline Hagen, [address] [facility] [address] [place] [address] Consulting Physician Cardiology 03/24/21 Timothy Palacio, [address] [facility], [address] [place] [address] Consulting Physician Cardiology 03/22/17 [employer] Supervisor Relationship Specialty Start Date End Date Ronit Doan DO [address] [facility], [address] [place] [address] PCP - General 11/17/20 Ronit Doan DO [address] [facility], [address] [place] [address] PCP - MSSP ACO Attributed Provider 05/08/21 Charline Hagen DO [address] [facility] [address] [place] [address] Consulting Physician Cardiology 03/24/21 Timothy Palacio, DO [address] [facility], [address] [place] [address] Consulting Physician Cardiology 03/22/17 [employer] Supervisor Relationship Specialty Start Date End Date Ronit Doan DO [address] [facility], [address] [place] [address] PCP - General 11/17/20 Ronit Doan DO [address] [facility], [address] [place] [address] PCP - MSSP ACO Attributed Provider 05/08/21 Charline Hagen DO [address] [facility] [address] [place] [address] Consulting Physician Cardiology 03/24/21 Timothy Palacio, [address] [facility] 3, [facility] [address] [place] [address] Consulting Physician Cardiology 03/22/17 [employer] Supervisor Relationship Specialty Start Date End Date Ronit Doan DO [address] [facility], [address] [address] PCP - General 11/17/20 Ronit Doan DO [address] [facility], [address] [address] PCP - MSSP ACO Attributed Provider 05/08/21 Charline Hagen DO [address] [facility] [address] [place] [place] [address] Consulting Physician Cardiology 03/24/21 Timothy Palacio, [address], [address] [address] Consulting Physician Cardiology 03/22/17 [employer] Supervisor Relationship Specialty Start Date End Date Ronit Doan DO [address] [facility], [address] [address] PCP - General 11/17/20 Ronit Doan DO [address] [facility], [address] [address] PCP - MSSP ACO Attributed Provider 05/08/21 Charline Hagen DO [address] [place] [address] Consulting Physician Cardiology 03/24/21 Timothy Palacio DO [address] [facility] [address], [address] [place] [address] Consulting Physician Cardiology 03/22/17 Team Status: Active [...] Provider Active St art: July 17, 2024 [employer] Supervisor Relationship Specialty Start Date End Date Ronit Doan DO [address] [facility], [address] [place] [address] PCP - General 11/17/20 Ronit Doan DO [address] [facility], [address] [place] [address] PCP - MSSP ACO Attributed Provider 05/08/21 Charline Hagen, [address] [facility] [address] [place] [address] Consulting Physician Cardiology 03/24/21 Timothy Palacio, [address], [address] [place] [address] Consulting Physician Cardiology 03/22/17 [employer] Supervisor Relationship Specialty Start Date End Date Ronit Doan DO [address] [facility], [address] [address] PCP - General 11/17/20 Ronit Doan DO [address] [facility], [address] [address] [facility] Attributed Provider 05/08/21 Charline Hagen, [address] [facility] [address] [place] [address] Consulting Physician Cardiology 03/24/21 Timothy Palacio, [address], [address] [place] [address] Consulting Physician Cardiology 03/22/17 [employer] Supervisor Relationship Specialty Start Date End Date Ronit Doan DO [address] [facility], [address] [address] PCP - General 11/17/20 Ronit Doan DO [address] [facility], [facility] [address] [place] [address] PCP - MSSP ACO Attributed Provider 05/08/21 Charline Hagen DO [address] [facility] [address] [place] [address] Consulting Physician Cardiology 03/24/21 Timothy Palacio DO [address], [address] [address] Consulting Physician Cardiology 03/22/17 [employer] Supervisor Relationship Specialty Start Date End Date Ronit Doan DO [address] [facility], [address] [address] PCP - General 11/17/20 Ronit Doan DO [address] [facility], [address] [address] PCP - MSSP ACO Attributed Provider 05/08/21 Charline Hagen DO [address] [place] [address] Consulting Physician Cardiology 03/24/21 Timothy Palacio DO [address], [address] [place] [address] Consulting Physician Cardiology 03/22/17 Source Comments (unrecognize d section and content) In the event this informatio n is protected by the Federal Confidentiality of Alcohol and Drug Abuse Patient Records regulations: The Federal rules restrict any use of the information to criminally investigate or prosecute any alcohol or drug abuse patient.[facility] the event this information is protected by the Federal Confidentiality of Alcohol and Drug Abuse Patient Records regulations: The Federal rules restrict any use of the information to criminally investigate or prosecute any alcohol or drug abuse patient.[facility] the event this information is protected by the Federal Confidentiality of Alcohol and Drug Abuse Patient Records regulations: The Federal rules restrict any use of the information to criminally investigate or prosecute any alcohol or drug abuse patient.[facility] the event this information is protected by the Federal Confidentiality of Alcohol and Drug Abuse Patient Records regulations: The Federal rules restrict any use of the information to criminally investigate or prosecute any alcohol or drug abuse patient.[facility] the event this information is protected by the Federal Confidentiality of Alcohol and Drug Abuse Patient Records regulations: The Federal rules restrict any use of the information to criminally investigate or prosecute any alcohol or drug abuse patient.[facility] the event this information is protected by the Federal Confidentiality of Alcohol and Drug Abuse Patient Records regulations: The Federal rules restrict any use of the information to criminally investigate or prosecute any alcohol or drug abuse patient.[facility] the event this information is protected by the Federal Confidentiality of Alcohol and Drug Abuse Patient Records regulations: The Federal rules restrict any use of the information to criminally investigate or prosecute any alcohol or drug abuse patient.[facility] the event this information is protected by the Federal Confidentiality of Alcohol and Drug Abuse Patient Records regulations: The Federal rules restrict any use of the information to criminally investigate or prosecute any alcohol or drug abuse patient.[facility] the event this information is protected by the Federal Confidentiality of Alcohol and Drug Abuse Patient Records regulations: The Federal rules restrict any use of the information to criminally investigate or prosecute any alcohol or drug abuse patient.[facility] the event this information is protected by the Federal Confidentiality of Alcohol and Drug Abuse Patient Records regulations: The Federal rules restrict any use of the information to criminally investigate or prosecute any alcohol or drug abuse patient.[facility] the event this information is protected by the Federal Confidentiality of Alcohol and Drug Abuse Patient Records regulations: The Federal rules restrict any use of the information to criminally investigate or prosecute any alcohol or drug abuse patient.[facility] Scheduled Active and Recently Administ ered Medications (unrecognized section and content) Medication Order 04/22/2023 04/23/2023 04/24/2023 budesonide (Pulmicort) 0.5 mg/2 mL nebulizer solution 0.5 mg 0.5 mg, nebulization, 2 times daily RT, First dose on 04/24/23 at 0700, Rinse mouth with water after use to reduce aftertaste and incidence of candidiasis. Do not swallow. 0734 (Given - Provid er: Farideh Hobson RRT)1900 (Due) dapagliflozin propanediol (Farxiga) tablet 10 mg [...] 0733 (Given - Provid er: Farideh Hobson, CHIEF ENGINEER RESEARCH) warfarin (Coumadin) tablet 1.25 mg 1.25 mg, [...] BE BASED ON THE PRIMARY CLINICAL RECORDS. [facility]. provides no warranty or guarantee of the accuracy or completeness of information in this document.
--- NOTE | 2025-05-03 19:11 | EKG12_ITS ---
Test Reason : SOB Blood Pressure : */* mmHG Vent. Rate : 67 BPM Atrial Rate : 277 BPM P-R Int : * ms QRS Dur : 168 ms QT Int : 456 ms P-R-T Axes : * -48 96 degrees QTcB Int : 481 ms Atrial flutter with 4:1 A-V conduction and Ventricular-paced rhythm Abnormal ECG Confirmed by Rupert Arora ([id number]), assistant production editor PENELOPE STEVENS ([id number]) on 05/09/2025 7:27:47 AM Referred By: Confirmed By: Rupert Arora
[2025-05-03 19:27] LABS: Hematocrit 35.5 % (37-47); Hemoglobin 11.4 g/dL (12.0-15.0); Immature Granulocytes Count 0.060 X10^3/uL (0.0-0.0); Mean Corp Hgb Conc 32.1 g/dL (32-36); Mean Corpuscular Volume 83.1 fL (81-99); Mean Platelet Vol. 8.6 fl (6.2-12.0); NRBC Flagged by Analyzer 0 % (0-5); Platelet Count 331 K/mm3 (150-450); RBC Distribution Width CV 17.5 % (11.6-14.6); RBC Distribution Width SD 52.9 fl (35.1-43.9); Red Blood Count 4.27 M/mm3 (4.2-5.4); White Blood Count 11.8 K/mm3 (4.4-11.0)
--- NOTE | 2025-05-03 19:30 | RAD_ITS ---
EXAM: XR Chest, 1 View CLINICAL INDICATION: COUGH, SHORTNESS OF BREATH RULE OUT PNEUMONIA TECHNIQUE: Frontal view of the chest. COMPARISON: XR Chest dated 03/13/2025 FINDINGS: LUNGS AND PLEURAL SPACES: See below. HEART: Cardiomegaly with mild congestion. MEDIASTINUM: Unremarkable. Normal mediastinal contour. BONES/JOINTS: Unremarkable. No acute fracture. TUBES, LINES AND DEVICES: Right-sided cardiac pacemaker. RAD/Chest 1 View (Portable) IMPRESSION: Cardiomegaly with mild congestion. Reading Location: [id number]
[2025-05-03 19:52] LABS: Anion Gap 13 (7-18); BUN 12 mg/dL (4-19); BUN/Creat Ratio 13.1 RATIO (10-20); Calcium,Total 9.3 mg/dL (7.6-11.0); Carbon Dioxide 22.6 mmol/L (20.0-29.0); Chloride 99 mmol/L (96-106); Estimated Creatinine Clearance 51.39 ml/min (50-250); Glucose 119 mg/dL (70-99); Potassium 4.5 mmol/L (3.5-5.1)
[2025-05-03 19:52] LABS: Prothrombin Time (Protime)PT. 18.2 SECONDS (11.7-14.9)
[2025-05-03 20:05] LABS: Troponin T High Sensitivity 31 ng/L (<=14)
--- NOTE | 2025-05-03 21:24 | PCM.HP.STD ---
HPI - General General Date of Admission: 05/03/25 HPI Narrative NHI ZHANG, is a 74 F who presents worsening shortness of breath and nonproductive cough over the past 2 days. This happened after she thinks she have aspirated while eating. Denies any worsening wheezing or changes in sputum. No fever. No leg swelling, orthopnea or PND. Compliant with Lasix twice daily. Patient has a medical history of asthma/COPD last admission was in March for an exacerbation, heart failure preserved EF, A-fib on warfarin, CAD and diabetes. In the ED she tested positive for influenza A. WBC 11.8 off steroids. Afebrile EKG is unchanged from prior. Chest x-ray showed cardiomegaly with mild congestion, comparing to prior I do not see a change. In the ED she had desaturation on minimal ambulation and required oxygen. She received a nebulizer treatment but continued to have bilateral wheezing on exam. She will need admission for influenza A with subsequent exacerbation of underlying asthma/COPD and close monitoring for complications like superimposed bacterial pneumonia or exacerbation of CHF [facility] Medical History (Updated 05/03/25 @ 22:[address] Melinda Meyer MD) Asthma exacerbation Hearing loss, left Hearing loss, right COPD (chronic obstructive pulmonary disease) Blood disorder Wears hearing aid Wears glasses Anxiety Arthritis Easy bruising Excessive bleeding Back pain Dietary restriction Gastric reflux Non-smoker Shortness of breath on exertion Asthma History of CHF (congestive heart failure) History of edema History of echocardiogram Hypertension Cardiology follow-up encounter History of pacemaker History of atrial fibrillation Abnormal ultrasound of breast Lump of right breast Abnormal mammogram Bilateral cataracts Home Medications ?Medication ?Instructions ?Recorded ?Last Taken ?Type acetaminophen 325 mg tablet 325 mg PO ONCE PRN pain 07/11/24 05/03/25 History (Tylenol) cetirizine 10 mg tablet (Zyrtec) 10 mg PO QDAY PRN allergy symptoms 07/11/24 05/03/25 History diltiazem HCl 240 mg 240 mg PO BID 07/11/24 05/03/25 History capsule,extended release 24 hr (Cardizem CD) esomeprazole magnesium 20 mg 20 mg PO QDAY 07/11/24 05/03/25 History capsule,delayed release (Nexium) fluticasone fur. 100 mcg-umeclid 1 inh inhalation Q24H 07/11/24 05/03/25 History 62.5 mcg-vilant 25 mcg inhalat.powder (Trelegy Ellipta) furosemide 20 mg tablet (Lasix) 20 mg PO QPM 07/11/24 05/03/25 History furosemide 40 mg tablet (Lasix) 40 mg PO QAM 07/11/24 05/03/25 History lactobacillus combination no.4 3 3,000 mmu cells PO QDAY 07/11/24 05/03/25 History billion cell capsule (Probiotic) levalbuterol tartrate 45 2 inh inhalation Q6H 07/11/24 05/03/25 History mcg/actuation aerosol inhaler (Xopenex HFA) lisinopril 10 mg tablet 10 mg PO QDAY 07/11/24 05/03/25 History tramadol 25 mg tablet 25 mg PO Q6H PRN pain 07/11/24 05/02/25 History warfarin 2 mg tablet 2.5 mg PO .COMPLEX mowefrsasu 07/11/24 05/03/25 History ipratropium 0.5 mg-albuterol 3 mg 3 ml inhalation PRN 07/15/24 05/03/25 History (2.5 mg base)/3 mL nebulization soln magnesium gluconate 27.5 mg 27.5 mg PO DAILY 07/15/24 05/03/25 History magnesium (500 mg) tablet pravastatin 40 mg tablet 40 mg PO QHS 07/15/24 05/03/25 History warfarin 2.5 mg tablet 1.25 mg PO TUTH 07/15/24 05/03/25 History metformin 500 mg tablet,extended 500 mg PO BID 07/24/24 05/03/25 History release 24 hr gabapentin 100 mg capsule 200 mg PO QHS 03/13/25 03/12/25 History Allergy/AdvReac Type Severity Reaction Status Date / Time cephalexin (From Keflex) Allergy Hives Verified 05/03/25 18:38 levofloxacin (From Levaquin) Allergy Hives Verified 05/03/25 18:38 Sulfa (Sulfonamide Allergy Hives Verified 05/03/25 18:38 Antibiotics) sulfamethoxazole (From Allergy Hives Verified 05/03/25 18:38 Bactrim) trimethoprim (From Bactrim) Allergy Hives Verified 05/03/25 18:38 Iodinated Contrast Media AdvReac Severe Other Verified 05/03/25 18:38 (contrast dye - iodinated) Family History Mother Breast cancer, Onset Age: 57 Sister Breast cancer Surgical History Status post right breast lumpectomy History of carotid endarterectomy H/O right breast biopsy H/O: hysterectomy Hx of cholecystectomy History of open heart surgery Social History Smoking Status: Never smoker alcohol intake: never substance use type: does not use ROS Constitutional Constitutional: Denies fever(s) or poor appetite ENT HEENT: Reports none Cardiovascular Cardiovascular: Reports dyspnea; Denies chest pain Respiratory/Chest Respiratory/Chest: Reports cough and dyspnea; Denies excessive phlegm production or wheezing Gastrointestinal Gastrointestinal: Denies abdominal pain or change in bowel habits Genitourinary Genitourinary: Denies change in urinary stream or dysuria Musculoskeletal Musculoskeletal: Denies arthralgias or myalgias Integumentary Integumentary: Reports none Neurologic Neurologic: Denies abnormal speech, dizziness, focal weakness, loss of vision or numbness Hematologic/Lymphatic Hematologic/Lymphatic: Reports none Patient's Goals Of Care . What would you like to achieve or improve as a result of your hospital stay?: Get better Vital Signs Vital Signs Vital Signs: 05/03/25 18:36 05/03/25 18:38 05/03/25 19:10 Temperature 98.3 F 98.6 F Temperature Source Oral Oral Pulse Rate 85 77 Respiratory Rate 16 24 H Respiratory Effort Normal Non-Labored Respiratory Depth Normal Respiratory Pattern Normal Blood Pressure 140/68 H 131/49 H Blood Pressure Mean 92 76 Pulse Ox 96 95 Oxygen Delivery Method Room Air Room Air 05/03/25 19:43 05/03/25 19:43 05/03/25 20:14 Temperature 98.6 F 98 F Temperature Source Oral Oral Pulse Rate 67 63 83 Respiratory Rate 25 H 30 H 19 H Respiratory Effort Respiratory Depth Respiratory Pattern Tachypnea Blood Pressure 131/49 H 162/47 H Blood Pressure Mean 76 85 Pulse Ox 98 95 Oxygen Delivery Method Room Air Room Air 05/03/25 21:05 05/03/25 21:22 Temperature 98.1 F 98.1 F Temperature Source Oral Pulse Rate 70 70 Respiratory Rate 16 16 Respiratory Effort Respiratory Depth Respiratory Pattern Blood Pressure 127/76 H 127/76 H Blood Pressure Mean 93 93 Pulse Ox 96 96 Oxygen Delivery Method Room Air Weight Weight: 83.461 kg Body Mass Index (BMI) 35.9 Physical Exam Const alert and oriented x3 HEENT normocephalic and head/scalp atraumatic Eyes EOMs intact bilaterally; Negative for no scleral icterus Neck supple Resp Resp Narrative: Bilateral expiratory wheezing on exam Cardio regular rate and regular rhythm; Negative for no murmurs GI normal to inspection, nondistended, normoactive bowel sounds; Negative for non-tender no CVA tenderness Extremity no joint enlargement and no pedal edema Skin no rashes or lesions noted Neuro oriented x3 and moves all extremities Results Lab / Micro Data 05/03/25 19:22 05/03/25 19:22 Labs: Laboratory Results - last 24 hr 05/03/25 19:22: WBC 11.8 H, RBC 4.27, Hgb 11.4 L, Hct 35.5 L, MCV 83.1, MCH 26.7 L, MCHC 32.1, RDW Std Deviation 52.9 H, RDW Coeff of Juliane 17.5 H, Plt Count 331, MPV 8.6, Immature Gran % (Auto) 0.500, Neut % (Auto) 71.8 H, Lymph % (Auto) 15.2 L, [place] % (Auto) 10.8 H, Eos % (Auto) 1.1, Baso % (Auto) 0.6, Absolute Neuts (auto) 8.4 H, Absolute Lymphs (auto) 1.79, Nucleated RBC % 0, Sodium 135, Potassium 4.5, Chloride 99, Carbon Dioxide 22.6, Anion Gap 13, BUN 12, Creatinine 0.92, Estim Creat Clear Calc 51.39, Est GFR (MDRD) Non-Af 66, BUN/Creatinine Ratio 13.1, Glucose 119 H, Calcium 9.3, Troponin T High Sens 31 H 05/03/25 19:27: PT 18.2 H, INR 1.5 Micro: Microbiology 05/03/25 19:29 Mucosa - Nose SARS-CoV-2, Influenza & RSV (PCR) - Final Influenzae A Imaging Radiology Impression Chest X-Ray 05/03/25 19:30 IMPRESSION: Cardiomegaly with mild congestion. [facility] Assessment/Plan (1) Influenza A: (2) Acute hypoxemic respiratory failure: (3) Asthma exacerbation: QUALIFIERS: Asthma persistence: persistent Asthma severity: moderate Qualified Code(s): J45.41 - Moderate persistent asthma with (acute) exacerbation (4) History of CHF (congestive heart failure): (5) History of atrial fibrillation: PLAN: Plan Admission to [facility] telemetry Influenza, hypoxemia, asthma flare: Low rate oxygen by nasal cannula, particularly for ambulation Albuterol nebulizer every 2 hours as needed, DuoNeb every 6 hours scheduled Avoid steroids because of influenza A. Empirical antibiotics doxycycline which covers staph/MRSA Continue home dose of oral Lasix. Compensated euvolemic CHF at the moment Continue warfarin for A-fib, diltiazem and lisinopril. Sepsis Attestation Sepsis Attestation: Sepsis Ruled Out Charges/Coding Visit Charges Inpatient E&M: 32042 Init Hosp L3
[2025-05-03 22:22] LABS: Pro- Brain NATRIURETIC PEPTIDE 442 pg/mL (<=900)
--- OUTSIDE RECORDS SUMMARY | 2025-05-03 22:43 | XMS RPT_ITS | CCD ---
Author Organization [facility] Care Team Providers Care Painter Bottom Name Role Phone Ayde Jacobo Unavailable Unavailable [...] Unavailable Ramicone DO Timothy Unavailable Unavailable Tyneski TOBACCO SCRAP SIFTER-R PROGRAMMER, Katharine Unavailable Unavai lable Tyneski, Katharine K Unavailable Unavailable Mandat, Ruma E Unavailable Unavailable Gliner, Ori Unavailable Unavailable Tyneski, Katharine K Unavailable Unavailable Unavailable Ronit Doan Unavailable Ronit Doan Unavailable Jaylon Kiser Unavailable Timothy Palacio Unavailable Juan Antonio, [facility] Unavailable Unavailable Charline Hagen Unavailable Ronit Doan DO Primary Care Provider [phone] Ronit Doan DO Unavailable Luba, Dr. Timothy [...] Ordonez Primary Care Unavailabl e Olimpia, Dr. Roint Ordonez Attending Unavailabl e Olimpia, Dr. Ronit [...] Ordonez Attending Unavailabl e Olimpia, Dr. Ronit Odronez Primary Care Unavailabl e Olimpia, Dr. Ronit Ordonez Attending Unavailabl e Roncayetano, Dr. Ronit Ordonez Primary Care Unavailabl e Olimpia, Dr. Ronit Ordonez Attending Unavailabl e Olimpia, Dr. Ronit Ordonez Primary Care Unavailabl e Olimpia, Dr. Ronit Ordonez Attending Unavailabl e Olimpia, Dr. Ronit Ordonez Primary Care Unavailabl e Charline Hagen DO S Unavailable Timothy Palacio DO Unavailable [phone] Unavailable Primary Care Provider UnavailKIRA Leonard Admitting Unavailable RONIT DOAN Primary Care Unavailable WASHINGTON HAIDER Attending Unavailable Shanique Sebastian LPN Unavailable Unavailable Unavailable Primary Care Provider Unavailabl e PHYSICIAN, NONE Primary Care Physician Unavailab le PHYSICIAN, NONE Primary Care Unavailable ZAK LEPE MD Attending Unavailable Ronit Doan DO Primary Care Provider Ronit Doan DO Unavailable Charline Hagen DO S Unavailable [phone] Timothy Palacio DO Unavailable Ronyak DO, Ronit A Unavailable Shari KAUR, Dr. Nawaf Mukherjee Attending Provider Olimpia BEACH, Dr. Cottrell Primary Care Provider Olimpia BEACH, Dr. Cottrell Referring Provider Shari KAUR, Dr. Nawaf Mukherjee Referring Provider Shari KAUR, Dr. Nawaf Mukherjee Other Provider HÉCTOR FAIRCHILD Attending Unavailable RONYAK, RONIT Primary Care Unavailable SIXTO WYATT MD Attending Unavailable RONYAK, RONIT Primary Care Unavailable RONYAK, RONIT Primary Care Unavailable WOLOSZYN R PROGRAMMER, FELISHA Attending Unavailabl e RONYAK, RONIT Primary Care Unavailable WOLOSZYN R PROGRAMMER, EFLISHA Referring Unavailabl e RONYAK, RONIT Primary Care Unavailable RONYAK, RONIT Primary Care Unavailable RONYAK, RONIT Primary Care Unavailable WOLOSJuancarlosYN R PROGRAMMER, FELISHA Attending Unavailabl e WOLOSZYN R PROGRAMMER, FELISHA Referring Unavailabl e RONYAK, RONIT A [...] Care Unavailable TIMOTHY PALACIO Referring Unavailable RONYAK, ROINT A Primary Care Unavailable Ronyak, Ronit Primary [...] RONYAK, RONIT A Primary Care Unavailable RONIT ODAN Primary Care Unavailable RONIT DOAN Referring Unavailable Allergies Allergy Classification Reported Allergen(s) Allergy Type Date of Onset Reaction(s) Facility Cephalosporins (antibiotic) (9 sources) Cephalexin; Translations: [Keflex] [facility] Work Phone: Contrast Media (9 sources) Contrast media Substance [facility] Work Phone: Quinolones (antibiotic) (9 sources) levoFLOXacin; Translations: [Levaquin] [facility] Work Phone: Sulfonamides (antibiotic) (9 sources) Sulfonamides (Antibiotic); Translations: [Sulfa Drugs] Drug [facility] Work Phone: (1 source) cephalexin Drug Allergy 12-14-19 17 [facility] Repository (7 sources) cephalexin; Translations: [CEPHALEXIN] Drug Allergy 06-05-19 10 [facility] Repository (1 source) Cephalosporins (Antibiotic) Drug allergy (disorder) 12-14-19 17 [facility] Repository (8 sources) levoFLOXacin; Translations: [LEVOFLOXACIN] Drug Allergy 05-29-19 07 [facility] Repository (7 sources) Sulfonamides (Antibiotic); Translations: [SULFA (SULFONAMIDE ANTIBIOTICS)] Drug allergy (disorder) 05-30-19 07 [facility] Repository (2 sources) Iodinated Contrast- Oral and IV Dye Drug allergy (disorder) 12-14-19 17 [facility] Repository (20 sources) Cephalexin; Translations: [KEFLEX] Drug Allergy 06-05-19 10 Rash [facility] Repository (20 sources) Contrast media allergy to substance [facility] Work Phone: (20 sources) levoFLOXacin; Translations: [Levaquin] Drug Allergy [facility] Work Phone: (20 sources) Sulfonamides (Antibiotic); Translations: [Sulfa Drugs] drug allergy Rash [facility] Work Phone: (1 source) Sulfonamides (Antibiotic); Translations: [SULFA ANTIBIOTICS] Propensity to adverse reactions to drug (disorder) 09-28-19 08 [facility] (20 sources) IODINATED CONTRAST MEDIA; Translations: [IODINATED CONTRAST MEDIA] Propensity to adverse reactions to drug (disorder) 09-28-19 08 Unknown [facility] Comment on above: syncope (20 sources) Sulfamethoxazole / Trimethoprim; Translations: [Bactrim] Drug Allergy 06-29-19 23 Rash, Unknown [facility] Work Phone: (1 source) Contrast media Unknown [facility] Other Phone (unformatted): [phone] Comment on above: States that she pass ed out (1 source) Sulfamethoxazole / Trimethoprim Drug Allergy Rash [facility] Other Phone (unformatted): [phone] (20 sources) Cephalexin Drug Allergy 06-05-19 10 Unknown, Other, Hives [facility] (20 sources) levoFLOXacin Drug Allergy 05-29-19 07 Rash, Hives, Other [facility] Work Phone: (20 sources) Sulfonamides (Antibiotic) Drug Allergy 05-30-19 07 Rash, [facility] Work Phone: (1 source) Sulfonamides (Antibiotic) Propensity to adverse reactions (disorder) [facility] (12 sources) Acyclovir; Translations: [ACYCLOVIR] Drug Allergy 03-15-20 13 Vomiting [facility] (12 sources) Digoxin; Translations: [DIGOXIN] Drug Allergy 05-30-19 07 [facility] (12 sources) Propranolol; Translations: [PROPRANOLOL HCL] Drug Allergy 05-30-19 07 [facility] (3 sources) dye [Other] Propensity to adverse reactions 05-30-19 07 [facility] (5 sources) Sulfamethoxazole / Trimethoprim; Translations: [SULFAMETHOXAZOLE-T RIMETHOPRIM] Drug Allergy 06-29-19 23 [facility] Repository (1 source) Contrast media; Translations: [iodinated radiocontrast agents] Drug allergy [facility] (3 sources) Sulfamethoxazole; Translations: [sulfamethoxazole] Drug Allergy 07-18-19 [facility] (2 sources) Sulfonamides (Antibiotic) Allergy to substance 07-18-19 [facility] (2 sources) Trimethoprim Drug Allergy 07-18-19 [facility] (1 source) Sulfamethoxazole Drug Allergy 03-13-20 [facility] Repository (1 source) Trimethoprim Drug Allergy 03-13-20 [facility] Repository Medications Current Medications Medication Drug Class(es) [...] complication, without long-term current use of insulin ([facility]) , Cardiac pacemaker in situ , Facet syndrome , Benzodiazepine contract exists Take by mouth. Active Bacillus coagula ns (PROBIOTIC, B. 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 Indications: CAD, multiple vessel , Atrial fibrillation, unspecified type (HCC) , Anxiety disorder in conditions classified elsewhere , Type 2 diabetes mellitus without complication, without long-term current use of insulin ([facility]) , Cardiac pacemaker in situ , Facet [...] complication, without long-term current use of insulin ([facility]) , Cardiac pacemaker in situ , Facet [...] mg Start: 08-01-2018 take 2 puff(s) by [facility] twice daily Pulmicort Flexhaler 90 MCG/ACT Inhalation [...] 1:00am Start: 08-01-2018 take 1 capsule by [facility] once daily cetirizine (ZyrTEC) 10 mg capsule [...] Start: 09-19-2023 take 1 capsule by [facility] every twelve hours dilTIAZem CD (Cardizem CD) [...] Start: 11-01-2022 take 2 capsules by m [facility] every twelve hours dilTIAZem CD (Cardizem CD) [...] Start: 06-29-2022 take 1 capsule by [facility] once daily Doxycycline Hyclate 100 [...] on above: Take 1 capsule by [facility] twice daily. esomeprazole 20 mg [...] 1 puff(s) by in halation once daily pzwbkivjcxm-fneulefgg-bmslwrns (Trelegy Ellipta) 200-62.5-25 mcg blister with device Inhale 1 puff once daily. 0 Suspended take 1 puff(s) by in halation once daily qgtxgntsahe-tditxmawm-bjhxbjhy (Trelegy Ellipta) 200-62.5-25 mcg blister with device [...] weekly, Monday, , Monday Refills: 3 Katharine eRy Start : 17-Oct-2019 Active take 1 tablet [...] by mouth once d aily. lactobacillus acidophilus [id number] unt / pectin 100 mg oral capsule [...] Please contact patient when ready. Please call [phone] with problems 1 each 5 08/25/2022 12/15/2022 Discontinued (Therapy completed) Start: 08-25-2022 nebulizer acce ssories [facility] Indications: Moderate persistent asthma without complication 1 each every 6 hours if needed (with nebulizer). Dispense whatever quantity of tubing and mouthpiece that are covered by pt insurance. Please contact patient when ready. Please call [phone] with problems 1 each 5 08/25/2022 Active [...] PO qd in morning. polyethylene glycol 3350 75230 mg powder for oral solution (1 source) [...] tablet Indications: Atherosclerosis of coronary artery of circle heart, unspecified vessel or lesion type, unspecified [...] Start: 08-01-2018 take 1 capsule by [facility] once daily Vitamin D3 125 MCG (5000 [...] complication, without long-term current use of insulin ([facility]) , Cardiac pacemaker in situ , Facet [...] 08/23/2024 08/26/2024 Discontinued take 1 capsule by [facility] three times daily gabapentin (Neurontin) 100 mg [...] Active Start: 01-07-2021 take 2 tablets by [facility] at mealtime methylPREDNISolone 4 MG Oral Tablet [...] Active Start: 01-23-2013 take 1 capsule by [facility] once daily omeprazole (PRILOSEC) 20 mg capsule Take 1 capsule by mouth once daily. 30 capsule 5 01/23/2013 Active Comment on above: Take 1 capsule by [facility] once daily. penicillin v potassium 500 mg [...] Active Start: 04-14-2022 take 4 tablets by [facility] once daily, then take 3 tablets by [...] [Coronary atherosclerosis of unspecified type of vessel, circle or graft] Onset: 9 08-12-2022 Chronic Comment on above: Admitted 03/06/21 wi th SOB/elevated xyowpkuo60/1/21 cardiac cath with moderate non-obstructive dzOn diltazem/statin/Xarelto-provide SL NTG-follow.; Admitted 03/06/21 wi th SOB/elevated qubrccgn43/1/21 cardiac cath with moderate non-obstructive dzOn diltazem/statin/Xarelto/statin-provide SL NTG-follow.; Admitted 03/06/21 wi th SOB/elevated vxaqnexd10/1/21 cardiac cath with moderate non-obstructive dzNo current [...] low intensity sta tin-has not tolerated high ikvtptrfp07/1/21 NZPCD=108,LDL=67,VD=920-bi has some CAD will increase Prav; On lmoderate intensi ty statin-has not tolerated high intensity09/2021 LDL=50,SX=565; On lmoderate intensi ty statin-has not tolerated high tinuzpovs43/2023 LDL=56; Pt with CV dz and el [...] Comment on above: BP not optimal-add l pultgdknr09/31/21 BMP OK; SBP borderlineWeight loss/Salt restriction; BP [...] aftercare (1 source) Anticoagulant effect; Translations: [terminal superintendent (current) use of anticoagulants] 08-12-2022 Episodic Other [...] Resolved: 3 Episodic Other aftercare (5 sources) correction (current) use of anticoagulants; Translations: [terminal superintendent (current) use of anticoagulants] Onset: 2 Episodic Other aftercare (3 sources) Other intermediate school teacher (current) drug therapy; Translations: [Other intermediate school teacher (current) drug therapy] Onset: 2 Episodic Other aftercare (2 sources) Encounter for surgical aftercare following surgery on the circulatory system; Translations: [Encntr for surgical aftcr following surgery on the circ sys] Onset: 2 Episodic Other aftercare (20 sources) Long-term current use of anticoagulant; Translations: [terminal superintendent (current) use of anticoagulants] Onset: 3 Resolved: 4 02-01-2023 Episodic Other aftercare (15 sources) Drug therapy finding; Translations: [terminal superintendent (current) use of anticoagulants] Onset: 3 02-11-2024 Episodic Other aftercare (14 sources) Taking high risk medication; Translations: [Other intermediate school teacher (current) drug therapy] Onset: 5 05-23-2024 Episodic [...] 03-18-2025 FINGERSTICK GLU 155 mg/dL High 74-106 [facility] Comment on above: Result Comment: LEENA GEMENT OF PATIENT CARE PER NURSING PROTOCOL Performed By: #### L 501.080 #### [facility] Laboratory [address] [place], [address] FINGERSTICK GLU 125 mg/dL High 74-106 [facility] Comment on above: Result Comment: LEENA GEMENT OF PATIENT CARE PER NURSING PROTOCOL Performed By: #### L 501.080 #### [facility] [address] [place], [address] Discharge Instructionon 03-08 Discharge Instruction [facility] Records Department [address] [place] [id number] Instructions for Home/Discharge Instructions 03/18/25 0705 MR#: [id number] Acct: [id number] Name: PAU MUÑOZ Rep #: [id number] : 1950 74 From: Vipin Mendosa MD [...] DO; Dr. Ronit Doan, DO Signed Normal [facility] Basic Metabolic Profile (BMP )on 03-17-2025 BUN/CRE 27.9 RATIO High 10-20 [facility] Comment on above: Performed By: #### L 300.3900, L500.2500, L100.0100 #### [facility] [address] [place], [address] Calcium [Mass/Vol] 9.2 mg/dL Normal 7.6-11.0 [facility] Comment on above: Performed By: #### L 300.3900, L500.2500, L100.0100 #### [facility] [address] [place], [address] Chloride [Moles/Vol] 96 mmol/L Low 98-108 [facility] Comment on above: Performed By: #### L 300.3900, L500.2500, L100.0100 #### [facility] [address] [place], [address] CO2 [Moles/Vol] 20.4 mmol/L Low 21.0-32.0 [facility] Comment on above: Performed By: #### L 300.3900, L500.2500, L100.0100 #### [facility] [address] [place], [address] Creatinine [Mass/Vol] 1.01 mg/dL Normal 0.70-1.20 [facility] Comment on above: Performed By: #### L 300.3900, L500.2500, L100.0100 #### [facility] [address] [place], [address] ECRCL 47.37 ml/min Low 50-250 [facility] Comment on above: Performed By: #### L 300.3900, L500.2500, L100.0100 #### [facility] [address] [place], [address] GAP 20 High 5-15 [facility] Comment on above: Performed By: #### L 300.3900, L500.2500, L100.0100 #### [facility] [address] [place], [address] GFR/1.73 sq M.predicted among non-blacks MDRD (S/P/Bld) [Vol rate/Area] 58 mL/min/{1.73_m2} Low >60 [facility] Comment on above: Result Comment: mL/m in/1.73m2 CKD-EPI Creatinine Equation (2020) Performed By: #### L 300.3900, L500.2500, L100.0100 #### [facility] [address] [place], [address] Glucose [Mass/Vol] 162 mg/dL High 70-99 [facility] Comment on above: Performed By: #### L 300.3900, L500.2500, L100.0100 #### [facility] [address] [place], [address] Potassium [Moles/Vol] 3.7 mmol/L Normal 3.3-5.1 [facility] Comment on above: Performed By: #### L 300.3900, L500.2500, L100.0100 #### [facility] [address] [place], [address] Sodium [Moles/Vol] 136 mmol/L Normal 133-145 [facility] Comment on above: Performed By: #### L 300.3900, L500.2500, L100.0100 #### [facility] [address] [place], [address] Urea nitrogen [Mass/Vol] 28 mg/dL High 4-19 [facility] Comment on above: Performed By: #### L 300.3900, L500.2500, L100.0100 #### [facility] [address] [place], [address] Bedside Glucoseon 03-17-2025 FINGERSTICK GLU 168 mg/dL High 74-106 [facility] Comment on above: Result Comment: LEENA GEMENT OF PATIENT CARE PER NURSING PROTOCOL Performed By: #### L 501.080 #### [facility] [address] [place], [address] FINGERSTICK GLU 153 mg/dL High 74-106 [facility] Comment on above: Result Comment: LEENA GEMENT OF PATIENT CARE PER NURSING PROTOCOL Performed By: #### L 501.080 #### [facility] [address] [place], [address] FINGERSTICK GLU 153 mg/dL High 74-106 [facility] Comment on above: Result Comment: LEENA GEMENT OF PATIENT CARE PER NURSING PROTOCOL Performed By: #### L 501.080 ####[facility] [address] [place], [address] FINGERSTICK GLU 178 mg/dL High -106 [facility] Comment on above: Result Comment: LEENA GEMENT OF PATIENT CARE PER NURSING PROTOCOL Performed By: #### L 501.080 ####[facility] [address] [place], [address] FINGERSTICK GLU 174 mg/dL High -106 [facility] Comment on above: Result Comment: LEENA GEMENT OF PATIENT CARE PER NURSING PROTOCOL Performed By: #### L 501.080 ####[facility] [address] [place], [address] CBC-Complete Blood Cnt No Di ffon 03-17-2025 Erythrocyte distribution width (RBC) [Ratio] 16.5 % High 11.6-14.6 [facility] Comment on above: Performed By: #### L 300.3900, L500.2500, L100.0100 #### [facility] [address] [place], [address] Hematocrit (Bld) [Volume fraction] 40.1 % Normal 37-47 [facility] Comment on above: Performed By: #### L 300.3900, L500.2500, L100.0100 #### [facility] [address] [place], [address] Hemoglobin (Bld) [Mass/Vol] 13.1 g/dL Normal 12.0-15.0 [facility] Comment on above: Performed By: #### L 300.3900, L500.2500, L100.0100 #### [facility] [address] [place], [address] MCH (RBC) [Entitic mass] 26.4 pg Low 27.0-32.0 [facility] Comment on above: Performed By: #### L 300.3900, L500.2500, L100.0100 #### [facility] [address] [place], [address] MCHC (RBC) [Mass/Vol] 32.7 g/dL Normal 32-36 [facility] Comment on above: Performed By: #### L 300.3900, L500.2500, L100.0100 #### [facility] [address] [place], [address] MCV (RBC) [Entitic vol] 80.8 fL Low 81-99 [facility] Comment on above: Performed By: #### L 300.3900, L500.2500, L100.0100 #### [facility] [address] [place], [address] Platelet mean volume (Bld) [Entitic vol] 8.6 fL Normal 6.2-12.0 [facility] Comment on above: Performed By: #### L 300.3900, L500.2500, L100.0100 #### [facility] [address] [place], [address] Platelets (Bld) [#/Vol] 402 10*3/uL Normal 150-450 [facility] Comment on above: Performed By: #### L 300.3900, L500.2500, L100.0100 #### [facility] [address] [place], [address] RBC (Bld) [#/Vol] 4.96 10*6/uL Normal 4.2-5.4 [facility] Comment on above: Performed By: #### L 300.3900, L500.2500, L100.0100 #### [facility] [address] [place], [address] RDW SD 48.7 fl High 35.1-43.9 [facility] Comment on above: Performed By: #### L 300.3900, L500.2500, L100.0100 #### [facility] [address] [place], [address] WBC (Bld) [#/Vol] 16.7 10*3/uL High 4.4-11.0 [facility] Comment on above: Performed By: #### L 300.3900, L500.2500, L100.0100 #### [facility] [address] [place], [address] Prothrombin Time w/INRon INR Coag (PPP) [Relative time] 3.5 {INR} Normal [facility] Comment on above: Performed By: #### L 300.3900, L500.2500, L100.0100 #### [facility] [address] [place], [address] PT Coag (PPP) [Time] 35.6 s High 11.7-14.9 [facility] Comment on above: Performed By: #### L 300.3900, L500.2500, L100.0100 #### [facility] [address] [place], [address] Bedside Glucoseon 03-16-2025 FINGERSTICK GLU 147 mg/dL High 74-106 [facility] Comment on above: Result Comment: LEENA GEMENT OF PATIENT CARE PER NURSING PROTOCOL Performed By: #### L 501.080 #### [facility] [address] [place], [address] FINGERSTICK GLU 155 mg/dL High 74-106 [facility] Comment on above: Result Comment: LEENA GEMENT OF PATIENT CARE PER NURSING PROTOCOL Performed By: #### L 501.080 ####[facility] [address] [place], [address] FINGERSTICK GLU 164 mg/dL High -106 [facility] Comment on above: Result Comment: LEENA GEMENT OF PATIENT CARE PER NURSING PROTOCOL Performed By: #### L 501.080 #### [facility] [address] [place], [address] FINGERSTICK GLU 213 mg/dL High [facility]106 [facility] Comment on above: Result Comment: LEENA GEMENT OF PATIENT CARE PER NURSING PROTOCOL Performed By: #### L 501.080 #### [facility] [address] [place], [address] Prothrombin Time w/INRon INR Coag (PPP) [Relative time] 3.5 {INR} Normal [facility] Comment on above: Performed By: #### L 501.080 #### [facility] [address] [place], [address] PT Coag (PPP) [Time] 35.6 s High 11.7-14.9 [facility] Comment on above: Performed By: #### L 501.080 #### [facility] [facility] [address] [place], [address] Bedside Glucoseon 03-15-2025 FINGERSTICK GLU 179 mg/dL High [address] [place] [address] Comment on above: Result Comment: LEENA GEMENT OF PATIENT CARE PER NURSING PROTOCOL Performed By: #### L 501.080 ####[facility] [address] [place], [address] FINGERSTICK GLU 179 mg/dL High [address] [place] [address] Comment on above: Result Comment: LEENA GEMENT OF PATIENT CARE PER NURSING PROTOCOL Performed By: #### L 501.080 ####[facility] [address] [place], [address] FINGERSTICK GLU 193 mg/dL High [address] [place] [address] Comment on above: Result Comment: LEENA GEMENT OF PATIENT CARE PER NURSING PROTOCOL Performed By: #### L 501.080 #### [facility] [address] [place], [address] FINGERSTICK GLU 191 mg/dL High [address] [place] [address] Comment on above: Result Comment: LEENA GEMENT OF PATIENT CARE PER NURSING PROTOCOL Performed By: #### L 501.080 #### [facility] [address] [place], [address] Prothrombin Time w/INRon INR Coag (PPP) [Relative time] 3.0 {INR} Normal [facility] Comment on above: Performed By: #### L 501.080 #### [facility] [address] [place], [address] PT Coag (PPP) [Time] 32.2 s High 11.7-14.9 [facility] Comment on above: Performed By: #### L 501.080 #### [facility] [address] [place], [address] Basic Metabolic Profile (BMP )on 03-14-2025 BUN/CRE 20.0 RATIO Normal - [facility] Comment on above: Performed By: #### L 300.3900, L500.2500, L100.0100 #### [facility] [address] [place], [address] Calcium [Mass/Vol] 9.4 mg/dL Normal 7.6-11.0 [facility] Comment on above: Performed By: #### L 300.3900, L500.2500, L100.0100 #### [facility] [address] [place], [address] Chloride [Moles/Vol] 99 mmol/L Normal 98-108 [facility] Comment on above: Performed By: #### L 300.3900, L500.2500, L100.0100 #### [facility] [address] [place], [address] CO2 [Moles/Vol] 24.0 mmol/L Normal 21.0-32.0 [facility] Comment on above: Performed By: #### L 300.3900, L500.2500, L100.0100 #### [facility] [address] [place], [address] Creatinine [Mass/Vol] 1.05 mg/dL Normal 0.70-1.20 [facility] Comment on above: Performed By: #### L 300.3900, L500.2500, L100.0100 #### [facility] [address] [place], [address] ECRCL 45.57 ml/min Low 50-250 [facility] Comment on above: Performed By: #### L 300.3900, L500.2500, L100.0100 #### [facility] [address] [place], [address] GAP 13 Normal 5-15 [facility] Comment on above: Performed By: #### L 300.3900, L500.2500, L100.0100 #### [facility] [address] [place], [address] GFR/1.73 sq M.predicted among non-blacks MDRD (S/P/Bld) [Vol rate/Area] 56 mL/min/{1.73_m2} Low >60 [facility] Comment on above: Result Comment: mL/m in/1.73m2 CKD-EPI Creatinine Equation (2020) Performed By: #### L 300.3900, L500.2500, L100.0100 #### [facility] [address] [place], [address] Glucose [Mass/Vol] 168 mg/dL High 70-99 [facility] Comment on above: Performed By: #### L 300.3900, L500.2500, L100.0100 #### [facility] [address] [place], [address] Potassium [Moles/Vol] 4.4 mmol/L Normal 3.3-5.1 [facility] Comment on above: Performed By: #### L 300.3900, L500.2500, L100.0100 #### [facility] [address] [place], [address] Sodium [Moles/Vol] 136 mmol/L Normal 133-145 [facility] Comment on above: Performed By: #### L 300.3900, L500.2500, L100.0100 #### [facility] [address] [place], [address] Urea nitrogen [Mass/Vol] 21 mg/dL High 4-19 [facility] Comment on above: Performed By: #### L 300.3900, L500.2500, L100.0100 #### [facility] [address] [place], [address] Bedside Glucoseon 03-14-2025 FINGERSTICK GLU 200 mg/dL High 74-106 [facility] Comment on above: Result Comment: LEENA GEMENT OF PATIENT CARE PER NURSING PROTOCOL Performed By: #### L 300.3900, L500.2500, L100.0100 #### [facility] [address] [place], [address] FINGERSTICK GLU 174 mg/dL High 74-106 [facility] Comment on above: Result Comment: LEENA GEMENT OF PATIENT CARE PER NURSING PROTOCOL Performed By: #### L 501.080 ####[facility] [address] [place], [address] FINGERSTICK GLU 167 mg/dL High 74-106 [facility] Comment on above: Result Comment: LEENA GEMENT OF PATIENT CARE PER NURSING PROTOCOL Performed By: #### L 501.080 #### [facility] [address] [place], [address] CBC W/Diff, Automatedon 11-0 7-2024 Absolute Lymph 0.86 X10 3/uL Normal 0.83-4.51 [facility] Comment on above: Performed By: #### L 300.3900, L500.2500, L100.0100 #### [facility] [address] [place], [address] Absolute Neut 14.2 X10 3/uL High 2.0-7.7 [facility] Comment on above: Performed By: #### L 300.3900, L500.2500, L100.0100 #### [facility] [address] [place], [address] Basophils/100 WBC (Bld) 0.2 % Normal 0-1 [facility] Comment on above: Performed By: #### L 300.3900, L500.2500, L100.0100 #### [facility] [address] [place], [address] Eosinophils/100 WBC (Bld) 0.1 % Normal 0-5 [facility] Comment on above: Performed By: #### L 300.3900, L500.2500, L100.0100 #### [facility] [address] [place], [address] Erythrocyte distribution width (RBC) [Ratio] 16.6 % High 11.6-14.6 [facility] Comment on above: Performed By: #### L 300.3900, L500.2500, L100.0100 #### [facility] [address] [place], [address] Hematocrit (Bld) [Volume fraction] 38.8 % Normal 37-47 [facility] Comment on above: Performed By: #### L 300.3900, L500.2500, L100.0100 #### [facility] [address] [place], [address] Hemoglobin (Bld) [Mass/Vol] 12.7 g/dL Normal 12.0-15.0 [facility] Comment on above: Performed By: #### L 300.3900, L500.2500, L100.0100 #### [facility] [address] [place], [address] IG% 1.300 High 0.0-0.9 [facility] Comment on above: Result Comment: IG% - Immature Granulocytes (promyelocytes, myelocytes and metamyelocytes) > 1% indicates that a LEFT SHIFT is Present. Performed By: #### L 300.3900, L500.2500, L100.0100 #### [facility] [address] [place], [address] Lymphocytes/100 WBC (Bld) 5.4 % Low 19-41 [facility] Comment on above: Performed By: #### L 300.3900, L500.2500, L100.0100 #### [facility] [address] [place], [address] MCH (RBC) [Entitic mass] 26.5 pg Low 27.0-32.0 [facility] Comment on above: Performed By: #### L 300.3900, L500.2500, L100.0100 #### [facility] [address] [place], [address] MCHC (RBC) [Mass/Vol] 32.7 g/dL Normal 32-36 [facility] Comment on above: Performed By: #### L 300.3900, L500.2500, L100.0100 #### [facility] [address] [place], [address] MCV (RBC) [Entitic vol] 81.0 fL Normal 81-99 [facility] Comment on above: Performed By: #### L 300.3900, L500.2500, L100.0100 #### [facility] [address] [place], [address] Monocytes/100 WBC (Bld) 4.0 % Normal 0-10 [facility] Comment on above: Performed By: #### L 300.3900, L500.2500, L100.0100 #### [facility] [address] [place], [address] Neutrophils/100 WBC (Bld) 89.0 % High 47-70 [facility] Comment on above: Performed By: #### L 300.3900, L500.2500, L100.0100 #### [facility] [address] [place], [address] Nucleated RBC (Bld) [#/Vol] 0 10*3/uL Normal 0-5 [facility] Comment on above: Performed By: #### L 300.3900, L500.2500, L100.0100 #### [facility] [address] [place], [address] Platelet mean volume (Bld) [Entitic vol] 8.8 fL Normal 6.2-12.0 [facility] Comment on above: Performed By: #### L 300.3900, L500.2500, L100.0100 #### [facility] [address] [place], [address] Platelets (Bld) [#/Vol] 379 10*3/uL Normal 150-450 [facility] Comment on above: Performed By: #### L 300.3900, L500.2500, L100.0100 #### [facility] [address] [place], [address] RBC (Bld) [#/Vol] 4.79 10*6/uL Normal 4.2-5.4 [facility] Comment on above: Performed By: #### L 300.3900, L500.2500, L100.0100 #### [facility] [address] [place], [address] RDW SD 48.7 fl High 35.1-43.9 [facility] Comment on above: Performed By: #### L 300.3900, L500.2500, L100.0100 #### [facility] [address] [place], [address] WBC (Bld) [#/Vol] 15.9 10*3/uL High 4.4-11.0 [facility] Comment on above: Performed By: #### L 300.3900, L500.2500, L100.0100 #### [facility] [address] [place], [address] Prothrombin Time w/INRon INR Coag (PPP) [Relative time] 2.6 {INR} Normal [facility] Comment on above: Performed By: #### L 300.3900, L500.2500, L100.0100 #### [facility] [address] [place], [address] PT Coag (PPP) [Time] 28.4 s High 11.7-14.9 [facility] Comment on above: Performed By: #### L 300.3900, L500.2500, L100.0100 #### [facility] [address] [place], [address] Basic Metabolic Profile (BMP )on 03-13-2025 BUN/CRE 17.3 RATIO Normal 10-20 [facility] Comment on above: Performed By: #### L 503.7505, L500.2500, L100.0100 ####[facility] [address] [place], [address] Calcium [Mass/Vol] 9.5 mg/dL Normal 7.6-11.0 [facility] Comment on above: Performed By: #### L 503.7505, L500.2500, L100.0100 ####[facility] [address] [place], [address] Chloride [Moles/Vol] 95 mmol/L Low 98-108 [facility] Comment on above: Performed By: #### L 503.7505, L500.2500, L100.0100 ####[facility] [address] [place], [address] CO2 [Moles/Vol] 20.8 mmol/L Low 21.0-32.0 [facility] Comment on above: Performed By: #### L 503.7505, L500.2500, L100.0100 ####[facility] [address] [place], [address] Creatinine [Mass/Vol] 1.02 mg/dL Normal 0.70-1.20 [facility] Comment on above: Performed By: #### L 503.7505, L500.2500, L100.0100 ####[facility] [address] [place], [address] ECRCL 47.93 ml/min Low 50-250 [facility] Comment on above: Performed By: #### L 503.7505, L500.2500, L100.0100 ####[facility] [address] [place], [address] GAP 16 High 5-15 [facility] Comment on above: Performed By: #### L 503.7505, L500.2500, L100.0100 ####[facility] [address] [place], [address] GFR/1.73 sq M.predicted among non-blacks MDRD (S/P/Bld) [Vol rate/Area] 58 mL/min/{1.73_m2} Low >60 [facility] Comment on above: Result Comment: mL/m in/1.73m2 CKD-EPI Creatinine Equation (2020) Performed By: #### L 503.7505, L500.2500, L100.0100 ####[facility] [address] [place], [address] Glucose [Mass/Vol] 151 mg/dL High 70-99 [facility] Comment on above: Performed By: #### L 503.7505, L500.2500, L100.0100 ####[facility] [address] [place], [address] Potassium [Moles/Vol] 4.2 mmol/L Normal 3.3-5.1 [facility] Comment on above: Result Comment: Hemo lysis present, Results??could be affected. ?? Performed By: #### L 503.7505, L500.2500, L100.0100 ####[facility] [address] [place], [address] Sodium [Moles/Vol] 132 mmol/L Low 133-145 [facility] Comment on above: Performed By: #### L 503.7505, L500.2500, L100.0100 ####[facility] [address] [place], [address] Urea nitrogen [Mass/Vol] 18 mg/dL Normal 4-19 [facility] Comment on above: Performed By: #### L 503.7505, L500.2500, L100.0100 ####[facility] [address] [place], [address] Bedside Glucoseon 03-13-2025 FINGERSTICK GLU 228 mg/dL High 74-106 [facility] Comment on above: Result Comment: LEENA GEMENT OF PATIENT CARE PER NURSING PROTOCOL Performed By: #### L 501.080 #### [facility] [address] [place], [address] FINGERSTICK GLU 259 mg/dL High 74-106 [facility] Comment on above: Result Comment: LEENA GEMENT OF PATIENT CARE PER NURSING PROTOCOL Performed By: #### L 501.080 #### [facility] [address] [place], [address] FINGERSTICK GLU 233 mg/dL High 74-106 [facility] Comment on above: Result Comment: LEENA GEMENT OF PATIENT CARE PER NURSING PROTOCOL Performed By: #### L 501.080 ####[facility] [address] [place], [address] CBC W/Diff, Automatedon 11-0 SMEAR COMMENT COMMENT Normal [facility] Comment on above: Result Comment: MONO CYTOSIS. Performed By: #### L 503.7505, L500.2500, L100.0100 ####[facility] [address] [place], [address] Chest PA and Lateralon 03-13 Chest PA and Lateral [facility] Services [address] [place] [address] Chest PA and Lateral MR#: [id number] Acct: [id number] Name: PAU MUÑOZ Rep #: [id number] : 1950 F 74 From: Rupert Georges PCP: Dr. Ronit Doan DO Status: REG ER Study: Chest PA and Lateral Date of Exam: 03/13/25 Exam# [id number] Ordering Dr: Zane Skinner DO PROCEDURE: CHEST [...] effusion or pneumothorax is seen. Reading Location: [place] [address] CC: Dr. Ronit Doan DO; Dr. 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 Medical History Blood disorder Wears hearing aid [...] breath as (more content not included)... Normal [facility] H&P Exam - Hospitalist [facility] [place] [address] H P Exam - Hospitalist 03/13/25 1012 MR#: [id number] Acct: [id number] Name: PAU MUÑOZ Rep #: [id number] : 1950 74 From: Francisco Godinez DO PCP: Dr. Ronit Doan, DO Status:ADM PATO Location: [place] [address] HPI - General General Date of Service: [...] nonproductive. No fever or chills. [ ] [facility] Medical History Blood disorder Wears hearing aid [...] Blood Pressur (more content not included)... Normal [facility] M100.678on 03-13-2025 M100.678 Pending SARS-CoV-2 (COVID 19) Negative INFLUENZA A Negative INFLUENZA B Negative RSV PCR Negative Normal [facility] Comment on above: Performed By: #### M 100.678 ####[facility] [address] [place], [place], [address] Partial Thromboplast Timeon 03-13-2025 aPTT Coag (Bld) [Time] 29.9 s Normal 24.1-36.2 [facility] Comment on above: Performed By: #### L 300.3900, L500.2500, L100.0100 #### [facility] [address] [place], [place], [address] Pro- Brain NATRIURETIC PEPTI Juan 03-13-2025 Natriuretic peptide B (Bld) [Mass/Vol] 787 pg/mL Normal <=900 [facility] Comment on above: Result Comment: Hear t Failure Unlikely: < 300 pg/mL Heart Failure Likely < 50 Years: > 450 pg/mL 50-75 Years: > 900 pg/mL >75 Years: > 1800 pg/mL Performed By: #### L 503.7505, L500.2500, L100.0100 ####[facility] [address] [place], [address] Prothrombin Time w/INRon INR Coag (PPP) [Relative time] 2.3 {INR} Normal [facility] Comment on above: Performed By: #### L 300.3900, L500.2500, L100.0100 #### [facility] [address] [place], [address] PT Coag (PPP) [Time] 25.8 s High 11.7-14.9 [facility] Comment on above: Performed By: #### L 300.3900, L500.2500, L100.0100 #### [facility] [address] [place], [address] RESPIRATORY PANEL MOLECULARo n 03-13-2025 RP PANEL Normal Reference Ran ge = Not Detected Resp path DNA+RNA Pnl Resp ULISES+probe Nucleic acid amplification test method Copy of report sent to Infection Control Printer [id number] 03/13/25 [address] [place] [address]. ADENOVIRUS Not Detected INFLUENZA A Not Detected INFLUENZA A (SUBTYPE H1) Not Detected INFLUENZA A (SUBTYPE H3) Not Detected INFLUENZA B Not Detected HUMAN METAPHNEUMO Not Detected PARAINFLUENZA 1 Not Detected PARAINFLUENZA 2 Not Detected PARAINFLUENZA 3 Not Detected PARAINFLUENZA 4 Not Detected RHINOVIRUS A Positive for RHINOVIRUS by NAAT technology A RSV A Not Detected RSV B Not Detected RHINOVIRUS Normal [facility] Comment on above: Performed By: #### M 100.638 ####[facility] [address] [place], [address] HEMOGLOBIN A1c WITH eAGon eAG (mmol/L) 8.9 mmol/L Normal [facility] Comment on above: Order Comment: FASTI NG:NO FASTING: NO Performed By: #### 1 6802 #### [facility] [address], [address] [place] [address] Flower Machine Operator: Jasson Gonzalez MD HbA1c (Bld) [Mass fraction] [...] By: #### 1 6802 #### [facility] [place] [address] Flower Machine Operator: Jasson Gonzalez MD Magnesium [Mass/Vol] 160 mg/dL Normal [facility] Comment on above: Order Comment: FASTI NG:NO FASTING: NO Performed By: #### 1 6802 #### [facility] [place] [address] Flower Machine Operator: Jasson Gonzalez MD PROTHROMBIN TIME-INRon 01-21 INR Coag (PPP) [Relative time] 1.8 {INR} High [facility] Comment on above: Result Comment: Refe rence Range 0.9-1.1 Moderate-intensity Warfarin Therapy 2.0-3.0 Higher-intensity Warfarin Therapy 3.0-4.0 Performed By: #### 8 847 #### [facility] [place] [address] Flower Machine Operator: Jasson Gonzalez MD PT Coag (PPP) [Time] 18.2 s High 9.0-11.5 [facility] Comment on above: Result Comment: For additional information, please refer to http://education.Relevant e-solution.[employer]/faq/DSS560 (This link is being provided for informational/ educational purposes only.) Performed By: #### 8 097 #### [facility] [place] [address] Flower Machine Operator: Jasson Gonzalez MD INR Coag (Bld) [Relative juanis e]on 10-28-2024 Interpretation and review of laboratory results Abnormal [facility] Work Phone: POC INR 3.3 Abnormal 0.9 - 1.1 [facility] Work Phone: [facility] Work Phone: CBC (H/H, RBC, INDICES, WBC, PLT)on 10-22-2024 Erythrocyte distribution width (RBC) [Ratio] 15.7 % High 11.0-15.0 [facility] Comment on above: Performed By: #### 7 600, 84686, 816, 10107 #### [facility] [place] [address] Flower Machine Operator: Jasson Gonzalez MD Hematocrit (Bld) [Volume fraction] 42.5 % Normal 35.0-45.0 [facility] Comment on above: Performed By: #### 7 600, 46215, 028, 27784 #### [facility] [place] [address] Flower Machine Operator: Jasson Gonzalez MD Hemoglobin (Bld) [Mass/Vol] 13.5 g/dL Normal 11.7-15.5 [facility] Comment on above: Performed By: #### 7 600, 37382, 521, 89893 #### [facility] [place] [address] Flower Machine Operator: Jasson Gonzalez MD MCH (RBC) [Entitic mass] 26.4 pg Low 27.0-33.0 [facility] Comment on above: Performed By: #### 7 600, 07234, 175, 93430 #### [facility] [place] [address] Flower Machine Operator: Jasson Gonzalez MD MCHC (RBC) [Mass/Vol] 31.8 [...] clinical condition. Performed By: #### 7 600, 05969, 1758, 47342 #### [facility] [place] [address] Flower Machine Operator: Jasson Gonzalez MD MCV (RBC) [Entitic vol] 83.2 fL Normal 80.0-100.0 [facility] Comment on above: Performed By: #### 7 600, 53488, 1758, 52358 #### [facility] [place] [address] Flower Machine Operator: Jasson Gonzalez MD Platelet mean volume (Bld) [Entitic vol] 9.0 fL Normal 7.5-12.5 [facility] Comment on above: Performed By: #### 7 600, 12867, 1758, 27869 #### [facility] [place] [address] Flower Machine Operator: Jasson Gonzalez MD Platelets (Bld) [#/Vol] 352 10*3/uL Normal 140-400 [facility] Comment on above: Performed By: #### 7 600, 25838, 1758, 04957 #### [facility] [place] [address] Flower Machine Operator: Jasson Gonzalez MD RBC (Bld) [#/Vol] 5.11 10*6/uL High 3.80-5.10 [facility] Comment on above: Performed By: #### 7 600, 54998, 175, 08229 #### [facility] of [address], [address] [place] [address] Flower Machine Operator: Jasson Gonzalez MD WBC (Bld) [#/Vol] 9.0 10*3/uL Normal 3.8-10.8 [facility] Comment on above: Performed By: #### 7 600, 04095, 1758, 64697 #### [facility] [place] [address] Flower Machine Operator: Jasson Gonzalez MD COMPREHENSIVE METABOLIC PANE L W/ANION GAPon 10-22-2024 Albumin [Mass/Vol] 4.1 g/dL Normal 3.6-5.1 [facility] Comment on above: Performed By: #### 7 600, 26827, 1758, 59585 #### [facility] of [address], [address] [place] [address] Flower Machine Operator: Jasson Gonzalez MD ALP [Catalytic activity/Vol] 104 U/L Normal 37-153 [facility] Comment on above: Performed By: #### 7 600, 55889, 1758, 45494 #### [facility] of [place] [address] Flower Machine Operator: Jasson Gonzalez MD ALT [Catalytic activity/Vol] 13 U/L Normal 6-29 [facility] Comment on above: Performed By: #### 7 600, 73378, 1758, 14585 #### [facility] of [place] [address] Flower Machine Operator: Jasson Gonzalez MD AST [Catalytic activity/Vol] 17 U/L Normal 10-35 [facility] Comment on above: Performed By: #### 7 600, 61200, 1758, 00302 #### [facility] of [place] [address] Flower Machine Operator: Jasson Gonzalez MD Bilirubin [Mass/Vol] 0.4 mg/dL Normal 0.2-1.2 [facility] Comment on above: Performed By: #### 7 600, 42581, 175, 64780 #### [facility] of [place] [address] Flower Machine Operator: Jasson Gonzalez MD Calcium [Mass/Vol] 9.1 mg/dL Normal 8.6-10.4 [facility] Comment on above: Performed By: #### 7 600, 11995, 1758, 57355 #### [facility] of [address], [address] [place] [address] Flower Machine Operator: Jasson Gonzalez MD Chloride [Moles/Vol] 99 mmol/L Normal 98-110 [facility] Comment on above: Performed By: #### 7 600, 09862, 175, 37600 #### [facility] of [address], [address] [place] [address] Flower Machine Operator: Jasson Gonzalez MD CO2 [Moles/Vol] 28 mmol/L Normal 20-32 [facility] Comment on above: Performed By: #### 7 600, 79661, 1758, 30122 #### [facility] of [address], [address] [place] [address] Flower Machine Operator: Jasson Gonzalez MD Creatinine [Mass/Vol] 0.93 mg/dL Normal 0.60-1.00 [facility] Comment on above: Performed By: #### 7 600, 47515, 1758, 21814 #### [facility] [address], [address] [place] [address] Flower Machine Operator: Jasson Gonzalez MD ELECTROLYTE BALANCE 11 mmol/L (calc) Normal 7-17 [facility] Comment on above: Performed By: #### 7 600, 44054, 1758, 46967 #### [facility] of [place] [address] Flower Machine Operator: Jasson Gonzalez MD GFR/1.73 sq M.predicted among non-blacks MDRD (S/P/Bld) [Vol rate/Area] 64 mL/min/{1.73_m2} Normal > OR = 60 [facility] Comment on above: Performed By: #### 7 600, 40206, 175, 93059 #### [facility] of [place] [address] Flower Machine Operator: Jasson Gonzalez MD Glucose [Mass/Vol] 134 mg/dL Normal 65-139 [facility] Comment on above: Result Comment: Non-fasting reference interval For someone without known diabetes, a glucose value >125 mg/dL indicates that they may have diabetes and this should be confirmed with a follow-up test. Performed By: #### 7 600, 69174, 175, 12252 #### [facility] [address], [address] [place] [address] Flower Machine Operator: Jasson Gonzalez MD Potassium [Moles/Vol] 4.4 mmol/L Normal 3.5-5.3 [facility] Comment on above: Performed By: #### 7 600, 50198, 1758, 97607 #### [facility] [place] [address] Flower Machine Operator: Jasson Gonzalez MD Protein [Mass/Vol] 7.5 g/dL Normal 6.1-8.1 [facility] Comment on above: Performed By: #### 7 600, 31779, 1758, 20144 #### [facility] of [place] [address] Flower Machine Operator: Jasson Gonzalez MD Sodium [Moles/Vol] 138 mmol/L Normal 135-146 [facility] Comment on above: Performed By: #### 7 600, 18168, 1758, 71799 #### [facility] [place] [address] Flower Machine Operator: Jasson Gonzalez MD Urea nitrogen [Mass/Vol] 15 mg/dL Normal 7-25 [facility] Comment on above: Performed By: #### 7 600, 72961, 175, 77029 #### [facility] of [place] [address] Flower Machine Operator: Jasson Gonzalez MD HEMOGLOBIN A1c WITH eAGon eAG (mmol/L) 9.2 mmol/L Normal [facility] Comment on above: Performed By: #### 7 600, 50575, 175, 22242 #### [facility] of [place] [address] Flower Machine Operator: Jasson Gonzalez MD HbA1c (Bld) [Mass fraction] [...] for children. Performed By: #### 7 600, 69666, 1759, 75715 #### [facility] [address], [address] [place] [address] Flower Machine Operator: Jasson Gonzalez MD Magnesium [Mass/Vol] 166 mg/dL Normal [facility] Comment on above: Performed By: #### 7 600, 92644, 1759, 65196 #### [facility] [address], [address] [place] [address] Flower Machine Operator: Jasson Gonzalez MD LIPID PANEL, [facility] 10-06 Cholesterol [Mass/Vol] 143 mg/dL Normal <200 [facility] Comment on above: Order Comment: FASTI NG:NO FASTING: NO Performed By: #### 7 600, 87444, 1759, 65753 #### [facility] [address], [address] [place] [address] Flower Machine Operator: Jasson Gonzalez MD Cholesterol in HDL [Mass/Vol] 66 mg/dL Normal > OR = 50 [facility] Comment on above: Order Comment: FASTI NG:NO FASTING: NO Performed By: #### 7 600, 30685, 1759, 01035 #### [facility] [place] [address] Flower Machine Operator: Jasson Gonzalez MD Cholesterol in LDL [Mass/Vol] [...] LDL-C. Mendoza MOSS et al. OSCAR. 2013;310(19): 4144-0876 ([email or web address]) Performed By: #### 7 600, 69005, 1759, 42810 #### [facility] [address], [address] [place] [address] Flower Machine Operator: Jasson Gonzalez MD Cholesterol.total/Ch olesterol in HDL [Mass ratio] 2.2 {ratio} Normal <5.0 [facility] Comment on above: Order Comment: FASTI NG:NO FASTING: NO Performed By: #### 7 600, 75721, 1759, 60893 #### [facility] [address], [address] [place] [address] Flower Machine Operator: Jasson Gonzalez MD NON HDL CHOLESTEROL 77 mg/dL (calc) Normal <130 [facility] Comment on above: Order Comment: FASTI NG:NO FASTING: NO Result Comment: For patients with diabetes plus 1 major ASCVD risk factor, treating to a non-HDL-C goal of <100 mg/dL (LDL-C of <70 mg/dL) is considered a therapeutic option. Performed By: #### 7 600, 61773, 1759, 11881 #### [facility] [address], [address] [place] [address] Flower Machine Operator: Jasson Gonzalez MD Triglyceride [Mass/Vol] 149 mg/dL Normal <150 [facility] Comment on above: Order Comment: FASTI NG:NO FASTING: NO Performed By: #### 7 600, 78236, 1759, 14550 #### [facility] [address], [address] [place] [address] Flower Machine Operator: Jasson Gonzalez MD [facility] Progress Notes-Mary pablo 10-08-2024 [facility] Progress Notes-Physician PAU MUÑOZ :1950 Registration Date:10/08/2024 [...] to Oncology. She has been followed at [facility], and wanted to switch due to seeing [...] mg/dL 10/04 (more content not included)... Normal [facility] GAYLE Quant with FLCon 025 EER Monoclonal Protein and FLC, Serum See Note Normal [facility] Comment on above: Order Comment: 1 digna quinones prior to FUV Ordered on [facility]# [id number] Result Comment: Auth orized individuals can access the [employer]ed[employer] Enhanced Report with an [employer] Connect account using the following link. Your local lab can assist you in obtaining the patient report if you don't have a Connect account. [email or web address] Performed By: [facility] [address] [place] [address] Boat Assembler: Emanuel Haney MD, PhD CLIA Number: [id number] Performed By: #### 7 [id number] ####[facility] [address] [place] [address] Medical Director: Mendoza Whitfield MD IGA 486 mg/dL High 68-408 [facility] Comment on above: Order Comment: 1 wee k prior to FUV Ordered on [facility]# [id number] Performed By: #### 7 [id number] ####[facility] [address] [place] [address] Medical Director: Mendoza Whitfield MD IGG 1087 mg/dL Normal 768-1632 [facility] Comment on above: Order Comment: 1 wee k prior to FUV Ordered on [facility]# [id number] Performed By: #### 7 [id number] ####[facility] [address] [place] [address] Medical Director: Mendoza Whitfield MD IGM 128 mg/dL Normal 35-263 [facility] Comment on above: Order Comment: 1 wee k prior to FUV Ordered on [facility]# [id number] Performed By: #### 7 [id number] ####[facility] [address] [place] [address] Medical Director: Mendoza Whitfield MD Immunofixation GAYLE Done Normal [facility] Comment on above: Order Comment: 1 wee k prior to FUV Ordered on [facility]# [id number] Performed By: #### 7 [id number] ####[facility] [address] [place] [address] Medical Director: Mendoza Whitfield MD [place] Qnt Free Light Chains 34.22 mg/L High 3.30-19.40 [facility] Comment on above: Order Comment: 1 wee k prior to FUV Ordered on [facility]# [id number] Result Comment: INTE RPRETIVE INFORMATION: [place] Qnt Free Light Chains Undetected antigen excess is a rare event but cannot be excluded. Free light chain results should always be interpreted in conjunction with other clinical and laboratory findings. Performed By: #### 7 [id number] ####[facility] [address] [place], [place] [address] Medical Director: Mendoza Whitfield MD [place]/Lambda Free Light Chain Ratio 1.48 Normal 0.26-1.65 [facility] Comment on above: Order Comment: 1 wee k prior to FUV Ordered on [facility]# [id number] Performed By: #### 7 [id number] ####[facility] [address] [place] [address] Medical Director: Mendoza Whitfield MD Lambda Qnt Free Light Chains 23.05 mg/L Normal 5.71-26.30 [facility] Comment on above: Order Comment: 1 wee k prior to FUV Ordered on [facility]# [id number] Result Comment: INTE RPRETIVE INFORMATION: Lambda Qnt Free Light Chains Undetected antigen excess is a rare event but cannot be excluded. Free light chain results should always be interpreted in conjunction with other clinical and laboratory findings. Performed By: #### 7 [id number] ####[facility] [address] [place] [address] Medical Director: Mendoza Whitfield MD Monoclonal Protein Not Applicable Normal <=0.00 So [facility] Comment on above: Order Comment: 1 wee k prior to FUV Ordered on [facility]# [id number] Performed By: #### 7 [id number] ####[facility] [address] [place] [address] Medical Director: Mendoza Whitfield MD SPE Albumin 3.88 g/dL Normal 3.75-5.01 [facility] Comment on above: Order Comment: 1 wee k prior to FUV Ordered on [facility]# [id number] Performed By: #### 7 [id number] ####[facility] [address] [place], [place] [address] Medical Director: Mendoza Whitfield MD SPE Alpha 1 Globulin 0.30 g/dL Normal 0.19-0.46 [facility] Comment on above: Order Comment: 1 wee k prior to FUV Ordered on [facility]# [id number] Performed By: #### 7 [id number] ####[facility] [address]36 [place] [address] Medical Director: Mendoza Whitfield MD SPE Alpha 2 Globulin 1.05 g/dL Normal 0.48-1.05 [facility] Comment on above: Order Comment: 1 wee k prior to FUV Ordered on [facility]# [id number] Performed By: #### 7 [id number] ####[facility] [address]mi[address] [place] [address] Medical Director: Mendoza Whitfield MD SPE Beta Globulin 1.22 g/dL High 0.48-1.10 [facility] Comment on above: Order Comment: 1 wee k prior to FUV Ordered on [facility]# [id number] Performed By: #### 7 [id number] ####[facility] [address] [place] [address] Medical Director: Mendoza Whitfield MD SPE Gamma Globulin 1.16 g/dL Normal 0.62-1.51 [facility] Comment on above: Order Comment: 1 wee k prior to FUV Ordered on [facility]# [id number] Performed By: #### 7 [id number] ####[facility] [address] [place] [address] Medical Director: Mendoza Whitfield MD SPE Total Protein 7.6 g/dL Normal 6.3-8.2 [facility] Comment on above: Order Comment: 1 wee k prior to FUV Ordered on [facility]# [id number] Performed By: #### 7 [id number] ####[facility] X[address]or57278 [place], [place] [address]) [phone] Director: Mendoza Whitfield MD SPEP/GAYLE Interp See Note [facility] Comment on above: Order Comment: 1 wee k prior to FUV Ordered on Fin# [id number] Result Comment: Seru m protein electrophoresis is negative for monoclonal protein. GAYLE gel shows a normal pattern; no monoclonal proteins seen. Performed By: #### 7 [id number] ####[facility] [address] [place] [id number] Medical Director: Mendoza Whitfield MD B2M Son 10-02-2024 B2MS 3.0 mg/L Normal <=3.0 [facility] Comment on above: Order Comment: 1 wee k prior to FUV Ordered on [facility]# [id number] Result Comment: Perf ormed By: [facility] [address] [place] [address] Boat Assembler: Emanuel Haney MD, PhD CLIA Number: [id number] Performed By: #### 6 [id number] #### [facility] [address] [place], [place] [address] Flower Machine Operator: Mendoza Whitfield MD AUTO DIFFon 10-01-2024 Baso Count 0.06 x1000 Normal 0.00-0.20 [facility] Comment on above: Order Comment: 1 wee k prior to FUV Performed By: #### 1 86775, 767048, 9882048, 804140, 544511, 584794, 616461 #### [facility] [address] [place], [place] [address] Flower Machine Operator: Mendoza Whitfield MD Basos % 0.6 % Normal [facility] Comment on above: Order Comment: 1 wee k prior to FUV Performed By: #### 1 94894, 272788, 6302863, 166485, 336278, 843658, 777729 #### [facility] [address] [place], [place] [address] Flower Machine Operator: Mendoza Whitfield MD Eos Count 0.12 x1000 Normal 0.00-0.50 [facility] Comment on above: Order Comment: 1 wee k prior to FUV Performed By: #### 1 62723, 150445, 9253432, 976869, 476202, 320408, 683924 #### [facility] [address] [place] [address] Flower Machine Operator: Mendoza Whitfield MD Eosinophils/100 WBC (Bld) 1.2 % Normal [facility] Comment on above: Order Comment: 1 wee k prior to FUV Performed By: #### 1 03349, 007707, 2245297, 722416, 428994, 563913, 055093 #### [facility] [address] [place] [address] Flower Machine Operator: Mendoza Whitfield MD Lymph Count 2.34 x1000 Normal 1.20-4.80 [facility] Comment on above: Order Comment: 1 wee k prior to FUV Performed By: #### 1 17973, 215644, 0869468, 858473, 039231, 487130, 243911 #### [facility] [address] [place] [address] Flower Machine Operator: Mendoza Whitfield MD Lymphocytes/100 WBC (Bld) 23.8 % Normal [facility] Comment on above: Order Comment: 1 wee k prior to FUV Performed By: #### 1 27165, 760164, 1447741, 040644, 255239, 431881, 465840 #### [facility] [address] [place] [address] Flower Machine Operator: Mendoza Whitfield MD [place] Count 1.07 x1000 High 0.10-1.00 [facility] Comment on above: Order Comment: 1 wee k prior to FUV Performed By: #### 1 43942, 632719, 4679967, 049387, 724530, 127188, 805647 #### [facility] [address] [place] [address] Flower Machine Operator: Mendoza Whitfield MD Monocytes/100 WBC (Bld) 10.9 % Normal [facility] Comment on above: Order Comment: 1 wee k prior to FUV Performed By: #### 1 67974, 936207, 6941185, 589870, 252326, 850467, 095624 #### [facility] [address] [place] [address] Flower Machine Operator: Mendoza Whitfield MD Neutrophil Count (ANC) 6.25 x1000 Normal 1.40-8.80 [facility] Comment on above: Order Comment: 1 wee k prior to FUV Performed By: #### 1 21479, 716332, 8745012, 465628, 361996, 667431, 885754 #### [facility] [address] [place] [address] Flower Machine Operator: Mendoza Whitfield MD Neutrophils/100 WBC (Bld) 63.5 % Normal [facility] Comment on above: Order Comment: 1 wee k prior to FUV Performed By: #### 1 53083, 415503, 1722835, 061494, 187156, 073062, 801232 #### [facility] [address] [place] [address] Flower Machine Operator: Mendoza Whitfield MD Red Blood Cell Morphology See Notes Abnormal [facility] Comment on above: Order Comment: 1 wee k prior to FUV Result Comment: Anis ocytosis 1+ Performed By: #### 1 15708, 661872, 2973816, 399317, 472849, 652233, 487239 #### [facility] [address] [place] [address] Flower Machine Operator: Mendoza Whitfield MD B12 FOLATEon 10-01-2024 Cobalamin (Vitamin B12) [Mass/Vol] 376 pg/mL Normal 211-911 [facility] Comment on above: Order Comment: 1 wee k prior to FUV Ordered on [facility]# [id number] Performed By: #### 1 63239, 382744, 4290508, 908447, 736704, 232856, 884190 ####[facility] [address] [place] [address] Medical Director: Mendoza Whitfield MD FOLATE 12.8 ng/mL Normal 5.4-17.5 [facility] Comment on above: Order Comment: 1 wee k prior to FUV Ordered on Fin# [id number] Result Comment: Meth otrexate and leucovorin interfere with folate measurement because these drugs cross-react with folate binding proteins. Performed By: #### 1 20578, 847497, 5828467, 474383, 321406, 119998, 181198 ####[facility] [address] [place] [address] Medical Director: Mendoza Whitfield MD COMPMETAon 10-01-2024 Albumin [Mass/Vol] 3.7 g/dL Normal 3.4-5.0 [facility] Comment on above: Order Comment: 1 wee k prior to FUV Ordered on Fin# [id number] Performed By: #### 1 34337, 034898, 1334587, 608593, 292120, 487055, 128360 #### [facility] [address] [place] [address] Flower Machine Operator: Mendoza Whitfield MD Albumin/Globulin [Mass ratio] 0.9 {ratio} Normal [facility] Comment on above: Order Comment: 1 wee k prior to FUV Ordered on Fin# [id number] Performed By: #### 1 61122, 900829, 0775381, 993961, 114144, 576617, 822859 #### [facility] [address] [place] [address] Flower Machine Operator: Mendoza Whitfield MD Alk Phos 118 unit/L High 45-117 [facility] Comment on above: Order Comment: 1 wee k prior to FUV Ordered on Fin# [id number] Performed By: #### 1 73558, 238442, 2066300, 667427, 293152, 985902, 656840 #### [facility] [address] [place] [address] Flower Machine Operator: Mendoza Whitfield MD Bilirubin [Mass/Vol] 0.30 mg/dL Normal 0.30-1.20 [facility] Comment on above: Order Comment: 1 wee k prior to FUV Ordered on Fin# [id number] Result Comment: Use of this assay is not recommended for patients undergoing treatment with eltrombopag due to the potential for falsely elevated results. Performed By: #### 1 26531, 059332, 8971899, 128507, 535360, 779911, 258497 #### [facility] [address] [place], [place] [address] Flower Machine Operator: Mendoza Whitfield MD Calcium [Mass/Vol] 9.7 mg/dL Normal 8.7-10.4 [facility] Comment on above: Order Comment: 1 wee k prior to FUV Ordered on Fin# [id number] Performed By: #### 1 96766, 996177, 0819911, 829064, 059866, 360847, 158389 #### [facility] [address] [place] [address] Flower Machine Operator: Mendoza Whitfield MD Chloride [Moles/Vol] 98 mmol/L Normal 98-107 [facility] Comment on above: Order Comment: 1 wee k prior to FUV Ordered on Fin# [id number] Performed By: #### 1 77281, 301032, 8999397, 879857, 703566, 513652, 209655 #### [facility] [address] [place] [address] Flower Machine Operator: Mendoza Whitfield MD CO2 [Moles/Vol] 27.0 mmol/L Normal 20.0-31.0 [facility] Comment on above: Order Comment: 1 wee k prior to FUV Ordered on Fin# [id number] Performed By: #### 1 08837, 584532, 0424257, 815157, 876965, 119696, 421112 #### [facility] [address] [place] [address] Flower Machine Operator: Mendoza Whitfield MD Creatinine [Mass/Vol] 1.0 mg/dL High 0.5-0.8 [facility] Comment on above: Order Comment: 1 wee k prior to FUV Ordered on [facility]# [id number] Performed By: #### 1 79485, 877464, 1651579, 379426, 644797, 169590, 993834 #### [facility] [address] [place] [address] Flower Machine Operator: Mendoza Whitfield MD GFR AA >60 Normal [facility] Comment on above: Order Comment: 1 wee k prior to FUV Ordered on [facility]# [id number] Result Comment: Afri can Vietnamese GFR Calc Medical judgement is necessary to [...] MDRD GFR equation Performed By: #### 1 97826, 855553, 2200521, 922549, 243170, 732332, 882677 #### [facility] [address] [place] [address] Flower Machine Operator: Mendoza Whitfield MD Globulin (S) [Mass/Vol] 4.2 g/dL Normal [facility] Comment on above: Order Comment: 1 wee k prior to FUV Ordered on [facility]# [id number] Performed By: #### 1 18543, 098222, 1907873, 235542, 187106, 967154, 695533 #### [facility] [address] [place] [address] Flower Machine Operator: Mendoza Whitfield MD Glomerular Filtration Rate 54 mL/min/1.73m? Normal [facility] Comment on above: Order Comment: 1 wee k prior to FUV Ordered on Fin# [id number] Result Comment: Non- GFR Calc Medical judgement [...] MDRD GFR equation Performed By: #### 1 26432, 649212, 2870881, 488670, 435237, 617503, 177491 #### [facility] [address] [place] [address] Flower Machine Operator: Mendoza Whitfield MD Glucose [Mass/Vol] 115 mg/dL High 74-106 [facility] Comment on above: Order Comment: 1 wee k prior to FUV Ordered on Fin# [id number] Performed By: #### 1 46905, 315540, 1322760, 223629, 570949, 618890, 522108 #### [facility] [address] [place] [address] Flower Machine Operator: Mendoza Whitfield MD GOT 20 unit/L Normal 15-37 [facility] Comment on above: Order Comment: 1 wee k prior to FUV Ordered on Fin# [id number] Performed By: #### 1 55792, 949462, 1410468, 717424, 664829, 434665, 466094 #### [facility] [facility] [address] [place] [address]89[address] Flower Machine Operator: Mendoza Whitfield MD GPT 13 unit/L Normal 10-49 [facility] Comment on above: Order Comment: 1 wee k prior to FUV Ordered on Fin# [id number] Performed By: #### 1 22224, 865305, 1038263, 402213, 540240, 284241, 969013 #### [facility] [address] [place] [address] 44130 Flower Machine Operator: Mendoza Whitfield MD Osmolality [Osmolality] 271 mosm/kg Low 275-295 [facility] Comment on above: Order Comment: 1 wee k prior to FUV Ordered on Fin# [id number] Performed By: #### 1 38752, 903025, 2369112, 673320, 318419, 352124, 178908 #### [facility] [address] [place] [address] 44[address] Flower Machine Operator: Mendoza Whitfield MD Potassium [Moles/Vol] 4.0 mmol/L Normal 3.5-5.1 [facility] Comment on above: Order Comment: 1 wee k prior to FUV Ordered on Fin# [id number] Performed By: #### 1 75246, 872605, 3886325, 408098, 661979, 673449, 779726 #### [facility] [address] [place], [place] [address] Flower Machine Operator: Mendoza Whitfield MD Protein [Mass/Vol] 7.9 g/dL Normal 5.7-8.2 [facility] Comment on above: Order Comment: 1 kvnge k prior to FUV Ordered on Fin# [id number] Result Comment: Tota l Protein results may be increased in patients receiving dextran as a blood volume critical care nurse Performed By: #### 1 82867, 076457, 7978890, 479343, 631288, 113065, 371922 #### [facility] [address] [place] [address] Flower Machine Operator: Mendoza Whitfield MD Sodium [Moles/Vol] 134 mmol/L Low 135-145 [facility] Comment on above: Order Comment: 1 wee k prior to FUV Ordered on Fin# [id number] Performed By: #### 1 59656, 968846, 4737217, 660888, 397147, 884844, 629549 #### [facility] [address] [place] [address] [phone] Flower Machine Operator: Mendoza Whitfield MD Urea nitrogen [Mass/Vol] 18 mg/dL Normal 9-23 [facility] Comment on above: Order Comment: 1 wee k prior to FUV Ordered on Fin# [id number] Result Comment: - Ve nipuncture should occur prior to N-Acetyl Cysteine (NAC) or Metamizole (Sulpyrine) administration due to the potential for falsely depressed results. - Blood samples from some patients with monoclonal gammopathies may produce falsely elevated results Performed By: #### 1 78425, 431438, 4210561, 615273, 685212, 183650, 036228 #### [facility] [address] [place] [address] Flower Machine Operator: Mendoza Whitfield MD Urea nitrogen/Creatinine [Mass ratio] 18.0 mg/mg Normal [facility] Comment on above: Order Comment: 1 wee k prior to FUV Ordered on Fin# [id number] Performed By: #### 1 62261, 694830, 5013091, 817986, 047736, 623313, 547235 #### [facility] [address] [place] [address] [phone] Flower Machine Operator: Mendoza Whitfield MD FERRITINon 10-01-2024 Ferritin [Mass/Vol] 16 ng/mL Normal 10-291 [facility] Comment on above: Order Comment: 1 wee k prior to FUV Ordered on Fin# [id number] Result Comment: Seru m ferritin values are elevated in the presence of the following conditions and do not reflect actual body iron stores: - Inflammation - Significant tissue destruction - Liver disease - Malignancies such as acute leukemia and Hodgkin?s disease - Therapy with iron supplements Performed By: #### 1 62833, 641051, 2927115, 256653, 485051, 973309, 514478 ####[facility] [address] [place], [place] [address]2830 Medical Director: Mendoza Whitfield MD HEMOon 10-01-2024 DIFF? No Normal [facility] Comment on above: Order Comment: 1 wee k prior to FUV Performed By: #### 1 19603, 799249, 4078675, 465387, 383109, 877854, 055802 #### [facility] [address] [place] [address] 08812 Flower Machine Operator: Mendoza Whitfield MD Erythrocyte distribution width (RBC) [Ratio] 16.9 % High 11.5-14.5 [facility] Comment on above: Order Comment: 1 wee k prior to FUV Performed By: #### 1 70974, 017340, 7404671, 621135, 524570, 369361, 375880 #### [facility] [address] [place] [address] Flower Machine Operator: Mendoza Whitfield MD Hematocrit (Bld) [Volume fraction] 43.1 % Normal 36.0-46.0 [facility] Comment on above: Order Comment: 1 wee k prior to FUV Performed By: #### 1 84933, 829152, 1171261, 545060, 451856, 091253, 749565 #### [facility] [address] [place] [address] Flower Machine Operator: Mendoza Whitfield MD Hemoglobin (Bld) [Mass/Vol] 14.1 g/dL Normal 12.0-16.0 [facility] Comment on above: Order Comment: 1 wee k prior to FUV Performed By: #### 1 48983, 709507, 3357154, 654061, 188687, 554404, 173320 #### [facility] [address] [place] [address] Flower Machine Operator: Mendoza Whitfield MD Instr WBC 9.8 Normal [facility] Comment on above: Order Comment: 1 wee k prior to FUV Performed By: #### 1 21753, 186690, 5490387, 900974, 305650, 497975, 184424 #### [facility] [address] [place] [address] 02693 Flower Machine Operator: Mendoza Whitfield MD MCH (RBC) [Entitic mass] 26.7 pg Low 27.0-34.0 [facility] Comment on above: Order Comment: 1 wee k prior to FUV Performed By: #### 1 75910, 539550, 1672921, 448459, 391700, 776494, 522620 #### [facility] [address] [place] [address] Flower Machine Operator: Mendoza Whitfield MD MCHC (RBC) [Mass/Vol] 32.7 g/dL Normal 32.0-37.0 [facility] Comment on above: Order Comment: 1 wee k prior to FUV Performed By: #### 1 32407, 342610, 9525567, 155674, 470282, 658209, 862571 #### [facility] [address] [place] [address] 03028 Flower Machine Operator: Mendoza Whitfield MD MCV (RBC) [Entitic vol] 81.6 fL Normal 80.0-100.0 [facility] Comment on above: Order Comment: 1 wee k prior to FUV Performed By: #### 1 83064, 026738, 5608419, 307857, 399496, 958964, 662195 #### [facility] [address] [place] [address] [phone] Flower Machine Operator: Mendoza Whitfield MD Nucleated RBC 0 /100WBC Normal [facility] Comment on above: Order Comment: 1 wee k prior to FUV Performed By: #### 1 57401, 808896, 4460349, 199603, 187675, 000712, 427600 #### [facility] [address] [place] [address] Flower Machine Operator: Mendoza Whitfield MD Platelet 346 x10 Normal 150-450 [facility] Comment on above: Order Comment: 1 wee k prior to FUV Performed By: #### 1 63696, 981093, 1355588, 334375, 546583, 653452, 576231 #### [facility] [address] [place] [address] Flower Machine Operator: Mendoza Whitfield MD Platelet mean volume (Bld) [Entitic vol] 6.5 fL Low 7.4-10.4 [facility] Comment on above: Order Comment: 1 wee k prior to FUV Performed By: #### 1 08141, 795451, 2871801, 131132, 826949, 648825, 216277 #### [facility] [address] [place] [address] Flower Machine Operator: Mendoza Whitfield MD RBC 5.28 x10 Normal 4.20-5.40 [facility] Comment on above: Order Comment: 1 wee k prior to FUV Result Comment: Note : RBC morphology is normal unless otherwise stated. Evaluation performed only if differential is requested. Performed By: #### 1 39288, 718573, 6101691, 589169, 673247, 777103, 018979 #### [facility] [address] [place] [address] Flower Machine Operator: Mendoza Whitfield MD WBC 9.8 x10 Normal 4.5-11.0 [facility] Comment on above: Order Comment: 1 wee k prior to FUV Performed By: #### 1 41552, 584377, 8202180, 525234, 202134, 325671, 386418 #### [facility] [address] [place] [address] 72869 Flower Machine Operator: Mendoza Whitfield MD IRON GROUPon 10-01-2024 Iron [Mass/Vol] 39 ug/dL Low 50-170 [facility] Comment on above: Order Comment: 1 wee k prior to FUV Ordered on [facility]# [id number] Result Comment: Resu lts may be inaccurate if performed within 14 days of IV iron dextran administration. Performed By: #### 1 41625, 459601, 2083546, 719051, 458783, 585323, 965244 ####[facility] [address]16 [place] [address] Medical Director: Mendoza Whitfield MD Saturation 8.6 % Low 20.0-50.0 [facility] Comment on above: Order Comment: 1 wee k prior to FUV Ordered on Fin# [id number] Performed By: #### 1 06706, 300752, 6769416, 530484, 100395, 286915, 798056 ####[facility] [address] [place] [address] Medical Director: Mendoza Whitfield MD TIBC 453 ug/ml High 250-425 [facility] Comment on above: Order Comment: 1 wee k prior to FUV Ordered on Fin# [id number] Result Comment: Resu lts may be inaccurate if performed within 14 days of IV iron dextran administration. Performed By: #### 1 73990, 532098, 3278059, 448056, 282354, 491092, 086563 ####[facility] [address] [place] [address] Medical Director: Mendoza Whitfield MD LDHon 10-01-2024 LDH 226 unit/L Normal 120-246 [facility] Comment on above: Order Comment: 1 wee k prior to FUV Ordered on Fin# [id number] Performed By: #### 1 27192, 355489, 2027808, 225371, 703245, 595507, 965077 #### [facility] [address] [place] [address] Flower Machine Operator: MD Kristi Cheung 08-23-2024 CNPN Telephone ([facility]) PAU MUÑOZ ([id number]) 1950 F Date Time Provider Department 08/23/24 HÉCTOR FAIRCHILD [facility] During your visit today, we recorded the following information about you: Pau Lanza 08/23/2024 10:40 AM Signed Patient need a refill on her gabapentin. The pharmacy is telling the patient she has no refills left. Send to [facility] in [place] [phone] Angeli Greenfield LPN 08/23/2024 11:17 AM Signed [...] Status:Closed by ANGELI GREENFIELD on 08/23/24 Normal [facility] US CAROTID ARTERY DUPLE X BILATERALon 08-22-2024 [facility] US CAROTID ARTERY DUPLEX BILATERAL [place] [address] and Vascular Lab Report [facility] US CAROTID ARTERY DUPLEX BILATERAL Patient Name: PAU Seay Physician: [id number] Nolvia Lopez MD, RPVI Study Date: 08/22/2024 Ordering Physician: [id number] JAYLON KISER MRN/PID: [id number] Technologist: Emili Rascon RVT Technologist 2: Date of /Age: 1 1950 / 74 years Gender: F Admission Status: Outpatient Location Performed: [facility] Diagnosis/ICD: Occlusion and stenosis of left carotid artery-I65.22 Indication: Occlusion/stenosis, Carotid without cerebral infarction CPT Codes: 83412 Cerebrovascular Carotid Duplex scan complete CONCLUSIONS: Right [...] Subclavian Right Left ICA/CCA Ratio 1.3 0.8 19028 JUDD Jurado MD Final [facility] AUTO DIFFon 08-09-2024 Baso Count 0.10 x1000 Normal 0.00-0.20 [facility] Comment on above: Performed By: #### 9 500372, 647507, 528183, [id number] ####[facility] [address] [place] [address] Medical Director: Mendoza Whtifield MD Basos % 0.8 % Normal [facility] Comment on above: Performed By: #### 9 175988, 519301, 522858, [id number] ####[facility] [address] [place] [address] Medical Director: Mendoza Whitfield MD Eos Count 0.10 x1000 Normal 0.00-0.50 [facility] Comment on above: Performed By: #### 9 971502, 464674, 554136, 853061986 ####[facility] [address] [place] [address] Medical Director: Mendoza Whitfield MD Eosinophils/100 WBC (Bld) 1.1 % Normal [facility] Comment on above: Performed By: #### 9 326399, 765944, 631503, [id number] ####[facility] [address] [place] [address] [facility] Director: Mendoza Whitfield MD Lymph Count 1.70 x1000 Normal 1.20-4.80 [facility] Comment on above: Performed By: #### 9 307278, 378596, 078005, [id number] ####[facility] [address]27 [place] [address] Medical Director: Mendoza Whitfield MD Lymphocytes/100 WBC (Bld) 15.7 % Normal [facility] Comment on above: Performed By: #### 9 553568, 888768, 643235, 261600243 ####[facility] [address] [place] [address] Medical Director: Mendoza Whitfield MD [place] Count 1.00 x1000 Normal 0.10-1.00 [facility] Comment on above: Performed By: #### 9 776393, 427466, 299099, 263899140 ####[facility] [address] [place] [address] Medical Director: Mendoza Whitfield MD Monocytes/100 WBC (Bld) 9.0 % Normal [facility] Comment on above: Performed By: #### 9 352476, 371075, 920085, 344140604 ####[facility] [address] [place] [address] Medical Director: Mendoza Whitfield MD Neutrophil Count (ANC) 7.80 x1000 Normal 1.40-8.80 [facility] Comment on above: Performed By: #### 9 475343, 838094, 551971, 561090304 ####[facility] [address]37 [place] [address] Medical Director: Mendoza Whitfield MD Neutrophils/100 WBC (Bld) 73.4 % Normal [facility] Comment on above: Performed By: #### 9 870840, 681683, 399152, [id number] ####[facility] [address]15 [place] [address] Medical Director: Mendoza Whitfield MD Red Blood Cell Morphology See Notes Abnormal [facility] Comment on above: Result Comment: Anis ocytosis 1+ Performed By: #### 9 215879, 368787, 367135, 271269683 ####[facility] [address] [place] [address] Medical Director: Mendoza Whitfield MD COMPMETAon 08-09-2024 GFR Estimated 54 Normal [facility] Comment on above: Result Comment: The GFR is calculated and is Age, Sex, and Race adjusted. Performed By: #### 9 052074, 399228, 383795, [id number] ####[facility] [address]84[address] [place] [address] Medical Director: Mendoza Whitfield MD Albumin [Mass/Vol] 3.4 g/dL Normal 3.4-5.0 [facility] Comment on above: Performed By: #### 9 519381, 524543, 365082, 473389597 ####[facility] [address] [place], [place] [address]) [phone] Director: Mendoza Whitfield MD Albumin/Globulin [Mass ratio] 0.8 {ratio} Normal [facility] Comment on above: Performed By: #### 9 214041, 986032, 988973, [id number] ####[facility] [address] [place] [id number]) [phone] Director: Mendoza Whitfield MD Alk Phos 131 unit/L High 45-117 [facility] Comment on above: Performed By: #### 9 867520, 535600, 126109, 913819011 ####[facility] [address]tc[address]66[address] [place], [place] [address]) [phone] Director: Mendoza Whitfield MD Bilirubin [Mass/Vol] 0.30 mg/dL Normal 0.30-1.20 [facility] Comment on above: Result Comment: Use of this assay is not recommended for patients undergoing treatment with eltrombopag due to the potential for falsely elevated results. Performed By: #### 9 595285, 182973, 205435, [id number] ####[facility] [address] [place], [place] [id number]) [phone] Director: Mendoza Whitfield MD Calcium [Mass/Vol] 9.4 mg/dL Normal 8.5-10.5 [facility] Comment on above: Performed By: #### 9 962223, 815020, 212057, 167762602 ####[facility] Z[address]bm[address]ic[address]25 [place], [place] [address]) [phone] Director: Mendoza Whitfield MD Chloride [Moles/Vol] 98 mmol/L Low 100-109 [facility] Comment on above: Performed By: #### 9 262196, 419677, 450651, [id number] ####[facility] [address] [place] [address] Medical Director: Mendoza Whitfield MD CO2 [Moles/Vol] 29.2 mmol/L Normal 21.0-32.0 [facility] Comment on above: Performed By: #### 9 474614, 818367, 358114, 661573027 ####[facility] [address]22[address] [place] [address] Medical Director: Mendoza Whitfield MD Creatinine [Mass/Vol] 1.0 mg/dL Normal 0.6-1.0 [facility] Comment on above: Performed By: #### 9 303973, 027637, 033185, 559348305 ####[facility] [address] [place] [address] Medical Director: Mendoza Whitfield MD Globulin (S) [Mass/Vol] 4.3 g/dL Normal [facility] Comment on above: Performed By: #### 9 314110, 409652, 833255, [id number] ####[facility] [address] [place] [address] Medical Director: Mendoza Whitfield MD Glucose [Mass/Vol] 149 mg/dL High 72-100 [facility] Comment on above: Result Comment: Fabiana puncture should occur prior to sulfasalazine administration due to the potential for falsely depressed results. Venipuncture should occur prior to sulfapyridine administration due to the potential falsely elevated results. Baseline assay values before administration of sulfasalazine and sulfapyridine therapy would not be affected. Performed By: #### 9 950791, 444303, 029789, 068859143 ####[facility] [address] [place] [address] Medical Director: Mendoza Whitfield MD GOT 22 unit/L Normal 15-37 [facility] Comment on above: Result Comment: Fabiana puncture should occur prior to sulfasalazine administration due to the potential for falsely depressed results. Baseline assay values before administration of sulfasalazine and sulfapyridine therapy would not be affected. Performed By: #### 9 033146, 517040, 384559, [id number] ####[facility] [address] [place] [address] Medical Director: Mendoza Whitfield MD GPT 26 unit/L Normal 14-59 [facility] Comment on above: Result Comment: Fabiana puncture should occur prior to sulfasalazine administration due to the potential for falsely depressed results. Baseline assay values before administration of sulfasalazine and sulfapyridine therapy would not be affected. Performed By: #### 9 528498, 415553, 139423, [id number] ####[facility] [address] [place], [place] [id number]) [phone] Director: Mendoza Whitfield MD Osmolality [Osmolality] 277 mosm/kg Normal 275-295 [facility] Comment on above: Performed By: #### 9 941368, 407945, 490440, [id number] ####[facility] [address] [place] [address] Medical Director: Mendoza Whitfield MD Potassium [Moles/Vol] 3.9 mmol/L Normal 3.5-5.1 [facility] Comment on above: Performed By: #### 9 395852, 759214, 609721, 713344713 ####[facility] Gnu[address] [place], [place] [address]) [phone] Director: Mendoza Whitfield MD Protein [Mass/Vol] 7.7 g/dL Normal 6.0-8.5 [facility] Comment on above: Performed By: #### 9 348301, 057121, 671957, [id number] ####[facility] J[address]cjpr[address] [place], [place] 4586330 Medical Director: Mendoza Whitfield MD Sodium [Moles/Vol] 136 mmol/L Normal 135-145 [facility] Comment on above: Performed By: #### 9 099266, 273761, 750521, [id number] ####[facility] [address]ht[address]38[address] [place] [address] Medical Director: Mendoza Whitfield MD Urea nitrogen [Mass/Vol] 18 mg/dL Normal 10-20 [facility] Comment on above: Performed By: #### 9 433802, 484937, 579592, [id number] ####[facility] [address] [place] [address] Medical Director: Mendoza Whitfield MD Urea nitrogen/Creatinine [Mass ratio] 18.0 mg/mg Normal [facility] Comment on above: Performed By: #### 9 195098, 672287, 162224, [id number] ####[facility] [address] [place] [address] Medical Director: Mendoza Whitfield MD ED Physician [...] complete this note and may contain unintentional air traffic control equipment repairer errors. Systolic Blood Pressure: 156 mmHg High [...] STAFF Within 3 to 5 days [address] [place] [address]- [phone] Business (1) Additional Instructions: Assessment This Visit Diagnosis Shortness of breath R06.02 Orders: Cardiac Monitoring, Continuous, Constant Order CBCWD(CBC WITH DIFF), STAT, 08/09/2024 00:42:00 EDT COMPMETA(CMP), STAT, 08/09/2024 00:42:00 EDT ED Discharge to Home, 08/09/2024 01:34:00 EDT, Constant Order EKG, 08/09/2024 00:10:00 EDT, Shortness of Breath, Pacemaker, Wheelchair, Heart Meds Unknown at this time, RASHMI, No EKG/[place] Requested proBNP, STAT, 08/09/2024 00:42:00 EDT TROPONIN [...] bowel syndr (more content not included)... Normal [facility] HEMOon 08-09-2024 DIFF? No Normal [facility] Comment on above: Performed By: #### 9 293957, 631486, 781638, [id number] ####[facility] [address] [place] [address] Medical Director: Mendoza Whitfield MD Erythrocyte distribution width (RBC) [Ratio] 16.3 % High 11.5-14.5 [facility] Comment on above: Performed By: #### 9 564958, 935248, 304619, [id number] ####[facility] At[address]ybkn[address] [place], [place] [address]) [phone] Director: Mendoza Whitfield MD Hematocrit (Bld) [Volume fraction] 40.9 % Normal 36.0-46.0 [facility] Comment on above: Performed By: #### 9 797622, 122238, 701487, [id number] ####[facility] Xu[address]jc89615 [place], [place] [address]) [phone] Director: Mendoza Whitfield MD Hemoglobin (Bld) [Mass/Vol] 13.9 g/dL Normal 12.0-16.0 [facility] Comment on above: Performed By: #### 9 107298, 237913, 499778, [id number] ####[facility] [address] [place] [address] [id number]) [phone] Director: Mendoza Whitfield MD Instr WBC 10.7 Normal [facility] Comment on above: Performed By: #### 9 862517, 121786, 009166, [id number] ####[facility] [address]lnrt[address] [place], [place] [id number]) [phone] Director: Mendoza Whitfield MD MCH (RBC) [Entitic mass] 27.6 pg Normal 27.0-34.0 [facility] Comment on above: Performed By: #### 9 739981, 390451, 484456, [id number] ####[facility] Lmhbpwwl79159 [place], [place] [address]) [phone] Director: Mendoza Whitfield MD MCHC (RBC) [Mass/Vol] 34.0 g/dL Normal 32.0-37.0 [facility] Comment on above: Performed By: #### 9 751683, 457340, 027245, [id number] ####[facility] Z[address]wdz47[address] [place], [place] [address]) [phone] Director: Mendoza Whitfield MD MCV (RBC) [Entitic vol] 81.0 fL Normal 80.0-100.0 [facility] Comment on above: Performed By: #### 9 140318, 321581, 658861, [id number] ####[facility] [address] [place] [address] Medical Director: Mendoza Whitfield MD Nucleated RBC 0 /100WBC Normal [facility] Comment on above: Performed By: #### 9 326224, 518090, 766707, [id number] ####[facility] [address] [place] [address] Medical Director: Mendoza Whitfield MD Platelet 369 x10 Normal 150-450 [facility] Comment on above: Performed By: #### 9 501616, 828993, 335052, [id number] ####[facility] [address] [place] [address] Medical Director: Mendoza Whitfield MD Platelet mean volume (Bld) [Entitic vol] 7.0 fL Low 7.4-10.4 [facility] Comment on above: Performed By: #### 9 912003, 683790, 774756, [id number] ####[facility] [address] [place] [address] [facility] Director: Mendoza Whitfield MD RBC 5.06 x10 Normal 4.20-5.40 [facility] Comment on above: Result Comment: Note : RBC morphology is normal unless otherwise stated. Evaluation performed only if differential is requested. Performed By: #### 9 251994, 084939, 580986, [id number] ####[facility] [address] [place] [address] Medical Director: Mendoza Whitfield MD WBC 10.7 x10 Normal 4.5-11.0 [facility] Comment on above: Performed By: #### 9 969622, 633182, 855840, [id number] ####[facility] [address] [place] [address] Medical Director: Mendoza Whitfield MD TROPONIN HS SINGLE DRAWon Troponin HS Single Draw 18 pg/mL Normal 3-54 [facility] Comment on above: Performed By: #### 9 694583, 700486, 643634, [id number] ####[facility] [address] [place] [address] Medical Director: Mendoza Whitfield MD XR CHEST [...] TREJO MD Signed Out: 08/09/24 00:38:07 Normal [facility] proBNPon 08-09-2024 Natriuretic peptide B (Bld) [Mass/Vol] 211 pg/mL High 0-124 [facility] Comment on above: Result Comment: Acut e CHF Rule-in: less than 50 yrs old greater than or equal to 450 pg/ml greater than 50 yrs old greater than or equal to 900 pg/ml Performed By: #### 2 [id number] ####[facility] [address] [place] [address] Medical Director: Mendoza Whitfield MD Surgery Visit Reporton 07-24 Surgery Visit Report [facility] [address] [place] [address]. [address] [place] [address] OFFICE VISIT Date of Service: 07/24/24 MR#: [id number] Acct: [id number] Name: PAU MUÑOZ Rep #: [id number] : 1950 Provider: Dr. 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 Normal [facility] POCT glycosylated hemoglobin (Hb A1C) manually resultedon 07-22-2024 HbA1c (Bld) [Mass fraction] 7 % Abnormal 4.2 - 6.5 % [facility] Work Phone: Interpretation and review of laboratory results Abnormal [facility] Work Phone: [facility] Work Phone: Protime w/INR Fingerstickon 07-19-2024 INR Coag (PPP) [Relative time] 1.2 {INR} Normal [facility] Comment on above: Result Comment: Crit ical Value > 4.0 Performed By: #### L 9200.0000 ####[facility] [address] [place], [place], [id number] Protime Coagsen 14.3 SEC Normal 11.7-14.9 [facility] Comment on above: Performed By: #### L 9200.0000 ####[facility] [address] [place], [address] Discharge Instructionon 07-06 Discharge Instruction [facility] Medical Records Department [address] [place] [address] Instructions for Home/Discharge Instructions 07/17/24 1215 MR#: [id number] Acct: [id number] Name: PAU MUÑOZ Rep #: [id number] : 1950 74 From: Nawaf Mccarthy MD PCP: Dr. Ronit Doan, DO Status:REG [facility] Discharge Instructions Diet Discharge Diet: Light diet [...] Primary Care Provider: Ronit Doan Print Language: New Zealander Discharge Orders/Prescriptions Prescriptions: New hydrocodone-acetaminop hen 5-325 [...] CC: Dr. Ronit Doan DO Signed Normal [facility] Immunohistochemical Stainson 07-17-2024 Immunohistochemical Stains ---- Patient Age/Sex Location Account Attending Physician ---- PAU MUÑOZ 74/F [facility] [id number] Dr. Nawaf Mccarthy MD ---- Specimen: [id number] Received: 07/18/24 Status: NIKI Fernandez Num: [id number] Spec Type: BREAST Subm Dr: Dr. Nawaf [...] ink. No distinct masses are identified. Multiple maintenance representative sections are submitted in 10 cassettes. 10 07/19/24 Cassette summary: A1- lateral perpendicular margin A2,A3- slice #2 A4,A5- slice #3 A6- inferior half of slice #6 A7- inferior half of slice #7 A8- superior half of slice #8 ---- Patient Age/Sex Location Account Attending Physician ---- PAU MUÑOZ 74/F [facility] [id number] Dr. Nawaf Mccarthy MD ---- A9- medial perpendicular margin A10- superior half of slice #4 CPT: 29665, 40254, 49079 ---- Patient Age/Sex Location Account Attending Physician ---- PAU MUÑOZ 74/F [facility] [id number] Dr. Nawaf Mccarthy MD ---- Signed (signature on file) Dr. Soniya Culp MD 07/29/24 1058 ---- Normal [facility] Comment on above: Performed By: #### P TERRY ####[facility] [address] [place], [place], [id number] MR/POSTOP.ANErosio 07-17-2024 MR/POSTOP.ANE [facility] Medical Records Department [address] [place] [address] Anesthesia Postop Eval I 07/17/24 1234 MR#: [id number] Acct: [id number] Name: PAU MUÑOZ Rep #: [id number] : 1950 74 From: Zoey Aggarwal PCP: Dr. Ronit Doan, DO Status:REG SDC Y Race: C Location: [place] [address] Anesthesia: Postop Eval I Current Vital Signs [...] Zoey Jara Signature: Date CC: Signed Normal [facility] MR/[id number] 07-17-2024 MR/POSTOPAN2 [facility] Medical Records Department [address] [place] [address] Anesthesia Postop Eval II 07/17/24 1256 MR#: [id number] Acct: [id number] Name: PAU MUÑOZ Rep #: [id number] : 1950 74 From: Moy Blair MD PCP: Dr. Ronit Doan, DO Status:REG SDC Y Race: C Location: [place] [address] Anesthesia Postop Eval I Sum Postop Eval Completion status Anesthesia document: Postop Eval 1 completed: Yes Anesthesia Postop Eval I Summary Anesthesia Postop Eval I Summary: Anesthesia Postop Eval I: Assessment Summary Airway patent Yes 07/17/24 12:35 [email or web address] Spontaneous unlabored Yes 07/17/24 12:35 [email or web address] respirations Mental status Awake,Calm 07/17/24 12:35 [email or web address] nausea No 07/17/24 12:35 [email or web address].GDOTT Vomiting No 07/17/24 12:35 [email or web address] Anesthesia Postop Eval I: Fluid Summary Crystalloid volume administer 700 07/17/24 12:35 [email or web address].GDOTT (ml) Colloids volume administered ( ml) Blood Product volume administered (ml) Total IV fluid infused 700 07/17/24 12:35 [email or web address] Anesthesia Postop Eval I: Summary Notes Anesthesia Complication No 07/17/24 12:35 [email or web address] Anesthesia Complication Comment: Post-operative progress note Anesthesia: Postop Eval II Evaluation Mental status: Awake Pain Level: 0 nausea: No Vomiting: No 07/17/24 1256 Date Moy Blair MD Cosigner Signature: Date CC: Signed Normal [facility] Operative Reporton 5 Operative Report [facility] Medical Records Department [address] [place] [address] Operative Report 07/17/24 1231 MR#: [id number] Acct: [id number] Name: PAU MUÑOZ Rep #: [id number] : 1950 74 From: Nawaf Mccarthy MD PCP: Dr. Ronit Doan, DO Status:REG [facility] Location: [place] [address] Multi Select Codes Integumentary Integumentary CPT Codes: 21422 Bx breast [place] [address] Partial mastectomy Operative Report (Standard) Operative Information Date of Procedure: 07/17/24 Pre-Operative Diagnosis: Right breast mass/abnormal ultrasound Post-Operative Diagnosis: Same Surgery/Procedure Performed: Right breast lumpectomy/excisional biopsy launch manager: Yes Bulb Filler: Karina Middleton Tasks completed by home care assistant: Closing and Retracting Additional licensed physical therapy assistant?: No Type of Anesthesia: General and [...] taken to recovery in good condition. A MEND WORKER was utilized as a assistant family teacher. Her role included skin retraction and assistance with skin closure. Surgical Findings: See operative description Complications Complications: No Admit VTE Documentation VTE Present on Admission: No VTE Mechan Device Prophylaxis: SCD's VTE Pharm Prophylaxis ordered?: No Reason prophylaxis not ordered: Treatment Not Indicated 07/17/24 1246 Cosigner Signature (if applicable): CC: Dr. Ronit Doan DO; Dr. Nawaf Mccarthy MD Signed [facility] MR/PAT.Jaz 07-15-2024 MR/PAT.[facility] Medical Records Department [address] [place] [address] PAT - Anesthesia 07/15/24 1557 MR#: [id number] Acct: [id number] Name: PAU MUÑOZ Rep #: [id number] : 1950 74 From: Moy Blair MD PCP: Dr. 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 Female Yes 07/15/24 13:26 HX of Motion Sickness No 07/15/24 13:26 HX of N/V After Surgery No 07/15/24 13:26 Non-Smoker Yes 07/15/24 13:26 Duration of Surgery greater No 07/15/24 13:26 than 60 minutes Number of Risk Factors 2 07/15/24 13:26 PONV Score Moderate Risk 07/15/24 13:26 Height Weight Height Weight: Anesthesia: Height Weight Height 5 ft 07/11/24 09:21 Respiratory Assessment Respiratory Assessment - 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: Respiratory Tract Infection Hx - 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 Hx Respiratory Tract Infection No 07/15/24 13:26 STOP Sleep Apnea STOP Sleep Apnea - 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: STOP Sleep Apnea - 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 Hx Hypertension Yes: CONTROLLED ON MED 07/15/24 [...] Tobacco Use History Tobacco Use 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 Tobacco Use Smoking Status Never smoker 07/15/24 13:26 Hx Tobacco Use No 07/15/24 13:26 Years Smoking Packs Smoked per Day Smoking Cessation Date was within the last 15 years Hx Smoking Cessation Date Hx Smoking Cessation Counseling Hematologic Medial History 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 Normal [facility] Surgery Visit Reporton 07-11 Surgery Visit Report [facility] [address] [facility] [place] [address] OFFICE VISIT Date of Service: 07/11/24 MR#: [id number] Acct: [id number] Name: PAU MUÑOZ Rep #: [id number] : 1950 Provider: Dr. Nawaf torres MD Age/Sex: 74/F Location: [facility] Status: Signed Intake Vital Signs 07/11/24 09:21 [...] All of her studies were through the [facility] system. Patient admits that she will only [...] and arthri (more content not included)... Normal [facility] BI MAMMO BILATERAL DIAGNOSTI C TOMOSYNTHESISon 07-05-2024 BI MAMMO BILATERAL DIAGNOSTIC TOMOSYNTHESIS Interpreted By: David Jon, STUDY: BI MAMMO BILATERAL DIAGNOSTIC TOMOSYNTHESIS; BI US BREAST LIMITED RIGHT; 07/05/2024 11:05 am; 07/05/2024 12:01 pm ACCESSION NUMBER(S): [id number]; [id number] ORDERING CLINICIAN: RONIT DOAN INDICATION: History of [...] of the right breast by a registered industrial maintenance mechanic with elastography. Grayscale and color imaging reviewed. [...] any future breast imaging appointments, please call [phone] ([phone]). MACRO: Critical Finding: See findings. Notification was initiated on 07/05/2024 at 12:59 pm by David Jon. (-YCF-) Instructions: See Impression for specific recommendations. Signed by: David Jon 07/05/2024 1:02 PM Dictation workstation: [id number] [facility] BI US BREAST LIMITED RIGHTon 07-05-2024 BI US BREAST LIMITED RIGHT Interpreted By: David Jon, STUDY: BI MAMMO BILATERAL DIAGNOSTIC TOMOSYNTHESIS; BI US BREAST LIMITED RIGHT; 07/05/2024 11:05 am; 07/05/2024 12:01 pm ACCESSION NUMBER(S): [id number]; [id number] ORDERING CLINICIAN: RONIT DOAN INDICATION: History of [...] of the right breast by a registered industrial maintenance mechanic with elastography. Grayscale and color imaging reviewed. [...] any future breast imaging appointments, please call [phone] ([phone]). MACRO: Critical Finding: See findings. Notification was initiated on 07/05/2024 at 12:59 pm by David Jon. (-YCF-) Instructions: See Impression for specific recommendations. Signed by: David Jon 07/05/2024 1:02 PM Dictation workstation: [id number] Abnormal [facility] DBT Breast - bilateral diagn osticon 07-05-2024 Radiology Study observation (narrative) [facility] Work Phone: No Panel InformationOrdered By: David Jon on 07-05-2024 Interpretation and review of laboratory results Abnormal [facility] Work Phone: [facility] Work Phone: No Panel Informationon 07-05 Heterogeneous [...] any future breast imaging appointments, please call [phone] ([phone]). MACRO: Critical Finding: See findings. Notification was initiated on 07/05/2024 at 12:59 pm by David Jon. (-YCF-) Instructions: See Impression for specific recommendations. Signed by: David Jon 07/05/2024 1:02 PM Dictation workstation: [id number] [facility] Interpreted By: David Jon, STUDY: BI MAMMO BILATERAL DIAGNOSTIC TOMOSYNTHESIS; BI US BREAST LIMITED RIGHT; 07/05/2024 11:05 am; 07/05/2024 12:01 pm ACCESSION NUMBER(S): [id number]; [id number] ORDERING CLINICIAN: RONIT DOAN INDICATION: History of [...] of the right breast by a registered industrial maintenance mechanic with elastography. Grayscale and color imaging reviewed. [...] 11:05 am; 07/05/2024 12:01 pm ACCESSION NUMBER(S): [id number]; [id number] ORDERING CLINICIAN: RONIT DOAN INDICATION: History of [...] of the right breast by a registered industrial maintenance mechanic with elastography. Grayscale and color imaging reviewed. [...] any future breast imaging appointments, please call [phone] ([phone]). MACRO: Critical Finding: See findings. Notification was initiated on 07/05/2024 at 12:59 pm by David Jon. (-YCF-) Instructions: See Impression for specific recommendations. Signed by: David Jon 07/05/2024 1:02 PM Dictation workstation: [id number] [facility] Work Phone: US Breast - right limitedon 07-05-2024 Radiology Study observation (narrative) [facility] Work Phone: INR Coag (Bld) [Relative juanis e]on 06-20-2024 Interpretation and review of laboratory results Abnormal [facility] Work Phone: POC INR 1.8 Abnormal 0.9 - 1.1 [facility] Work Phone: [facility] Work Phone: CBC panel Auto (Bld)on 04-23 Erythrocyte distribution width (RBC) [Ratio] 15.9 % High 11.5-14.5 Comment on above: Performed By: #### 5 8410-2 #### NITHYA Diamond (90394) [facility] ([facility]) [address] [place] [address] Hematocrit (Bld) [Volume fraction] 46.7 % High 36.0-46.0 Comment on above: Performed By: #### 5 8410-2 #### NITHYA Diamond (13582) [facility] ([facility]) [address] [place] [address] Hemoglobin (Bld) [Mass/Vol] 14.4 g/dL Normal 12.0-16.0 Comment on above: Performed By: #### 5 8410-2 #### NITHYA Diamond (80562) [facility] ([facility]) [address] [place] [address]58 MCH (RBC) [Entitic mass] 26.5 pg Normal 26.0-34.0 Comment on above: Performed By: #### 5 8410-2 #### NITHYA Diamond (64820) [facility] ([facility]) [address] [place] [address] 68354 MCHC (RBC) [Mass/Vol] 30.8 g/dL Low 32.0-36.0 Comment on above: Performed By: #### 5 8410-2 #### NITHYA Diamond (48793) [facility] ([facility]) [address] [place] [address] 25389 MCV (RBC) [Entitic vol] 86 fL Normal 80-100 Comment on above: Performed By: #### 5 8410-2 #### NITHYA Diamond (13605) [facility] ([facility]) [address] [place] [address] 89847 Nucleated RBC/100 WBC (Bld) [Ratio] 0.0 /100 WBCs Normal 0.0-0.0 Comment on above: Performed By: #### 5 8410-2 #### NITHYA Diamond (60020) [facility] ([facility]) [id number] [place] [address] Platelets (Bld) [#/Vol] 367 x10*3/uL Normal 150-450 Comment on above: Performed By: #### 5 8410-2 #### NITHYA Diamond (56273) [facility] ([facility]) [address] [place] [address] 13101 RBC (Bld) [#/Vol] 5.43 x10*6/uL High 4.00-5.20 [facility] Comment on above: Performed By: #### 5 8410-2 #### NITHYA Diamond (96100) [facility] ([facility]) [address] [place] [address] 79549 WBC (Bld) [#/Vol] 10.0 x10*3/uL Normal 4.4-11.3 [facility] Comment on above: Performed By: #### 5 8410-2 #### NITHYA Diamond (93953) [facility] ([facility]) [address] [place] [address] 66281 Comprehensive metabolic 2000 panelon 04-23-2024 Albumin BCP dye [Mass/Vol] 4.3 g/dL Normal 3.4-5.0 Comment on above: Performed By: #### 2 4323-8 #### NITHYA Diamond (94276) [facility] ([facility]) [address] [place] [address] 36371 ALP [Catalytic activity/Vol] 102 U/L Normal 33-136 Comment on above: Performed By: #### 2 4323-8 #### NITHYA Diamond (08786) [facility] ([facility]) [id number] [place] [address] 78053 ALT With P-5'-P [Catalytic activity/Vol] 14 U/L Normal 7-45 Comment on above: Result Comment: Luna ents treated with Sulfasalazine may generate falsely decreased results for ALT. Performed By: #### 2 4323-8 #### NITHYA Diamond (62446) [facility] ([facility]) [address] [place] [address] Anion gap [Moles/Vol] 14 mmol/L Normal 10-20 Comment on above: Performed By: #### 2 4323-8 #### NITHYA Diamond (24207) [facility] ([facility]) [address] [place] [address] 52993 AST With P-5'-P [Catalytic activity/Vol] 18 U/L Normal 9-39 Comment on above: Performed By: #### 2 4323-8 #### NITHYA Diamond (29481) [facility] ([facility]) [address] [place] [address] 98626 Bilirubin [Mass/Vol] 0.4 mg/dL Normal 0.0-1.2 [facility] Comment on above: Performed By: #### 2 4323-8 #### NITHYA Diamond (98755) [facility] ([facility]) [address] [place] [address] Calcium [Mass/Vol] 10.0 mg/dL Normal 8.6-10.6 [facility] Comment on above: Performed By: #### 2 4323-8 #### NITHYA Diamond (73617) [facility] ([facility]) [id number] [place] [address] 43246 Chloride [Moles/Vol] 99 mmol/L Normal 98-107 [facility] Comment on above: Performed By: #### 2 4323-8 #### NITHYA Diamond (89320) [facility] ([facility]) [address] [place] [address] 91291 CO2 [Moles/Vol] 30 mmol/L Normal 21-32 [facility] Comment on above: Performed By: #### 2 4323-8 #### NITHYA Diamond (11823) [facility] ([facility]) [address] [place] [address] Creatinine [Mass/Vol] 1.00 mg/dL Normal 0.50-1.05 Comment on above: Performed By: #### 2 4323-8 #### NITHYA Diamond (18664) [facility] ([facility]) [address] [place] [address] 73071 Glomerular filtration rate/1.73 sq M.predicted 60 mL/min/1.73m*2 Low >60 Comment on above: Result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 bilateral carotid arteries-I65.23 Indication: Occlusion/stenosis, Carotid without cerebral infarction CPT Codes: 39654 Cerebrovascular Carotid Duplex scan complete Patient History [...] cm/s Right Left ICA/CCA Ratio 1.5 1.1 [id number] JUDD Martinez MD Final [facility] Work Phone: US.doppler Carotid arteries - bilateralOrdered By: iQana Parks on 08-25-2023 [facility] Work Phone: US.doppler Carotid arteries - bilateralon 08-22-2023 Radiology Study observation (narrative) [facility] Work Phone: CBC panel Auto (Bld)on 04-24 Erythrocyte distribution width (RBC) [Ratio] 15.1 % High 11.5-14.5 [facility] Comment on above: Performed By: #### 5 8410-2 #### KRISTIN DUDLEY ([id number]) [facility] ([facility]) [address] [id number] Hematocrit (Bld) [Volume fraction] 41.4 % Normal 36.0-46.0 [facility] Comment on above: Performed By: #### 5 8410-2 #### KRISTIN DUDLEY ([id number]) [facility] ([facility]) [address] [place] [address] Hemoglobin (Bld) [Mass/Vol] 13.5 g/dL Normal 12.0-16.0 [facility] Comment on above: Performed By: #### 5 8410-2 #### KRISTIN DUDLEY ([id number]) [facility] ([facility]) [address] [place] [address] MCH (RBC) [Entitic mass] 27.8 pg Normal 26.0-34.0 [facility] Comment on above: Performed By: #### 5 8410-2 #### KRISTIN DUDLEY ([id number]) [facility] ([facility]) [address] [place] [address] MCHC (RBC) [Mass/Vol] 32.6 g/dL Normal 32.0-36.0 [facility] Comment on above: Performed By: #### 5 8410-2 #### KRISTIN DUDLEY ([id number]) [facility] ([facility]) [address] [place] [address] MCV (RBC) [Entitic vol] 85 fL Normal 80-100 [facility] Comment on above: Performed By: #### 5 8410-2 #### KRISTIN DUDLEY ([id number]) [facility] ([facility]) [address] [place] [address] Nucleated RBC/100 WBC (Bld) [Ratio] 0.0 /100 WBCs Normal 0.0-0.0 [facility] Comment on above: Performed By: #### 5 8410-2 #### KRISTIN DUDLEY ([id number]) [facility] ([facility]) [address] [place] [address] Platelets (Bld) [#/Vol] 310 x10*3/uL Normal 150-450 [facility] Comment on above: Performed By: #### 5 8410-2 #### KRISTIN DUDLEY ([id number]) [facility] ([facility]) [address] [place] [address] RBC (Bld) [#/Vol] 4.85 x10*6/uL Normal 4.00-5.20 [facility] Comment on above: Performed By: #### 5 8410-2 #### KRISTIN DUDLEY ([id number]) [facility] ([facility]) [address] [id number] WBC (Bld) [#/Vol] 8.1 x10*3/uL Normal 4.4-11.3 [facility] Comment on above: Performed By: #### 5 8410-2 #### KRISTIN DUDLEY ([id number]) [facility] ([facility]) [address] [place] [address] Erythrocyte distribution width (RBC) [Ratio] 15.1 % High 11.5 - 14.5 % [facility] Hematocrit (Bld) [Volume fraction] 41.4 % 36.0 - 46.0 % [facility] Hemoglobin (Bld) [Mass/Vol] 13.5 g/dL 12.0 - 16.0 g/dL [facility] Interpretation and review of laboratory results Abnormal [facility] MCH (RBC) [Entitic mass] 27.8 pg 26.0 - 34.0 pg [facility] MCHC (RBC) [Mass/Vol] 32.6 g/dL 32.0 - 36.0 g/dL [facility] MCV (RBC) [Entitic vol] 85 fL 80 - 100 fL [facility] Nucleated RBC/100 WBC (Bld) [Ratio] 0.0 % [facility] Platelets (Bld) [#/Vol] 310 10*3/uL [facility] RBC (Bld) [#/Vol] 4.85 10*6/uL [facility] WBC (Bld) [#/Vol] 8.1 10*3/uL [facility] Coagulation tissue factor in ducedon 04-24-2023 PT Coag (PPP) [Time] 22.9 s High 9.8-12.8 [facility] Comment on above: Performed By: #### 5 902-2 #### KRISTIN DUDLEY ([id number]) [facility] ([facility]) [address] [place] [address] Comprehensive metabolic 2000 panelon 04-24-2023 Albumin BCP dye [Mass/Vol] 4.1 g/dL Normal 3.4-5.0 [facility] Comment on above: Performed By: #### 2 4323-8 #### KRISTIN DUDLEY ([id number]) [facility] ([facility]) [address] [place] [address] ALP [Catalytic activity/Vol] 74 U/L Normal 33-136 [facility] Comment on above: Performed By: #### 2 4323-8 #### KRISTIN DUDLEY ([id number]) [facility] ([facility]) [address] [place] [address] ALT With P-5'-P [Catalytic activity/Vol] 18 U/L Normal 7-45 [facility] Comment on above: Result Comment: Luna ents treated with Sulfasalazine may generate falsely decreased results for ALT. Performed By: #### 2 4323-8 #### KRISTIN DUDLEY ([id number]) [facility] ([facility]) [address] [place] [address] Anion gap [Moles/Vol] 14 mmol/L Normal 10-20 [facility] Comment on above: Performed By: #### 2 4323-8 #### KRISTIN DUDLEY ([id number]) [facility] ([facility]) [address] [place] [address] AST With P-5'-P [Catalytic activity/Vol] 23 U/L Normal 9-39 [facility] Comment on above: Performed By: #### 2 4323-8 #### KRISTIN DUDLEY ([id number]) [facility] ([facility]) [address] [place] [address] Bilirubin [Mass/Vol] 0.4 mg/dL Normal 0.0-1.2 [facility] Comment on above: Performed By: #### 2 432-8 #### KRISTIN DUDLEY ([id number]) [facility] ([facility]) [address] [place] [address] Calcium [Mass/Vol] 9.3 mg/dL Normal 8.6-10.3 [facility] Comment on above: Performed By: #### 2 4322-8 #### KRISTIN DUDLEY ([id number]) [facility] ([facility]) [address] [place] [address] Chloride [Moles/Vol] 99 mmol/L Normal 98-107 [facility] Comment on above: Performed By: #### 2 4323-8 #### KRISTIN DUDLEY ([id number]) [facility] ([facility]) [address] [place] [address] CO2 [Moles/Vol] 24 mmol/L Normal 21-32 [facility] Comment on above: Performed By: #### 2 3-8 #### KRISTIN DUDLEY ([id number]) [facility] ([facility]) [address] [place] [address] Creatinine [Mass/Vol] 0.89 mg/dL Normal 0.50-1.05 [facility] Comment on above: Performed By: #### 2 3-8 #### KRISTIN DUDLEY ([id number]) [facility] ([facility]) [address] [place] [address] GFR/1.73 sq M.predicted MDRD (S/P/Bld) [Vol rate/Area] 69 mL/min/1.73m*2 Normal >60 [facility] Comment on above: Result Comment: Calc ulations of estimated GFR are performed using the 2020 CKD-EPI Study Refit equation without the race variable for the IDMS-Traceable creatinine methods. https://jasn.asnjournals.org/content/early//ASN.2257567 988 Performed By: #### 2 4323-8 #### KRISTIN DUDLEY ([id number]) [facility] ([facility]) [address] [place] [address] Glucose [Mass/Vol] 163 mg/dL High 74-99 [facility] Comment on above: Performed By: #### 2 4323-8 #### KRISTIN DUDLEY ([id number]) [facility] ([facility]) [address] [place] [address] Potassium [Moles/Vol] 4.5 mmol/L Normal 3.5-5.3 [facility] Comment on above: Performed By: #### 2 4323-8 #### KRISTIN DUDLEY ([id number]) [facility] ([facility]) [address] [place] [address] Protein [Mass/Vol] 7.6 g/dL Normal 6.4-8.2 [facility] Comment on above: Performed By: #### 2 4323-8 #### KRISTIN DUDLEY ([id number]) [facility] ([facility]) [address] [place] [address] Sodium [Moles/Vol] 132 mmol/L Low 136-145 [facility] Comment on above: Performed By: #### 2 4323-8 #### KRISTIN DUDLEY ([id number]) [facility] ([facility]) [address] [place] [address] Urea nitrogen [Mass/Vol] 16 mg/dL Normal 6-23 [facility] Comment on above: Performed By: #### 2 4323-8 #### KRISTIN LUIS ENRIQUE ([id number]) [facility] ([facility]) [address] [place] [address] Albumin BCP dye [Mass/Vol] 4.1 g/dL 3.4 - 5.0 g/dL [facility] ALP [Catalytic activity/Vol] 74 U/L 33 - 136 U/L [facility] ALT With P-5'-P [Catalytic activity/Vol] 18 U/L 7 - 45 U/L [facility] Comment on above: Patients treated wit h Sulfasalazine may generate falsely decreased results for ALT. Anion gap [Moles/Vol] 14 mmol/L 10 - 20 mmol/L [facility] AST With P-5'-P [Catalytic activity/Vol] 23 U/L 9 - 39 U/L [facility] Bilirubin [Mass/Vol] 0.4 mg/dL 0.0 - 1 .2 mg/dL [facility] Calcium [Mass/Vol] 9.3 mg/dL 8.6 - 10. 3 mg/dL [facility] Chloride [Moles/Vol] 99 mmol/L 98 - 10 7 mmol/L [facility] CO2 [Moles/Vol] 24 mmol/L 21 - 32 mmol/L [facility] Creatinine [Mass/Vol] 0.89 mg/dL 0.50 - 1.05 mg/dL [facility] GFR/1.73 sq M.predicted MDRD (S/P/Bld) [Vol rate/Area] 69 mL/min/{1.73_m2} - PINF [facility] Comment on above: Calculations of galilea mated GFR are performed using the 2020 CKD-EPI Study Refit equation without the race variable for the IDMS-Traceable creatinine methods. https://jasn.asnjournals.org/content//ASN.8689881 988 Glucose [Mass/Vol] 163 mg/dL High 74 - 99 mg/dL [facility] Interpretation and review of laboratory results Abnormal [facility] Potassium [Moles/Vol] 4.5 mmol/L 3.5 - 5.3 mmol/L [facility] Protein [Mass/Vol] 7.6 g/dL 6.4 - 8.2 g/dL [facility] Sodium [Moles/Vol] 132 mmol/L Low 136 - 145 mmol/L [facility] Urea nitrogen [Mass/Vol] 16 mg/dL 6 - 23 mg/dL [facility] PT Coag (PPP) [Time]on 04-24 INR Coag (PPP) [Relative time] 2.0 High 0.9-1.1 [facility] Comment on above: Performed By: #### 5 902-2 #### KRISTIN LUIS ENRIQUE ([id number]) [facility] ([facility]) [address] [place] [address] INR Coag (PPP) [Relative time] 2.0 {INR} High 0.9 - 1.1 [facility] Interpretation and review of laboratory results Abnormal [facility] Protime-INRon 04-24-2023 PT Coag (PPP) [Time] 22.9 s High [facility] Anticoagulation Monitoring S erviceon 01-18-2023 Anticoagulation Monitoring Service Today's INR [id number] IO INR2.2 Target INR range2-3 Source[facility] History of Present Illness Patient identification verified with 2 patient identifiers. Anticoagulation Monitoring Service: [facility]. August 10, 2023. The patient is being seen as a follow-up for anticoagulation monitoring. Target INR 2-3. Monitoring practitioner Ronit Doan DO. Date Warfarin Begun: August 01, 2022. INR monitoring is per [facility] protocol. The patient is on anticoagulation due to atrial fibrillation/flutter. The patient is currently taking warfarin Tablet strength and color: 2.5 mg (Green) Interval History: Patient was last seen: January 04, 2023. Previous INR was 2.6. Incoming total weekly dose 13.75 mg. Today's Clinic INR: [facility] INR 2.2. Since last visit, the patient [...] 01, 2023. Time: 10: 30 am. Location: [facility], . Your INR today is within range [...] #1 Coumadin Patient: PAU MUÑOZ; : 1950; [id number] 02:[id number] 10:50BU04Xrr1424 10:[id number] 10:54YS78Pmf4489 01:05PM IO PT/INR PT + INR, Plasma PT/INR (POC) Recorded INR Coagulation Screen Current Dose New Dose Recheck in Patient Notified Comments IO INR2.22.62.33.33 PT, INR Target INR [id number] Normal [employer] Today's INRon 01-18-2023 Today's INR AMS Anticoagulati on [facility] Work Phone: Today's INR 2-3 Anticoagulati on [facility] Work Phone: Anticoagulation Monitoring S erviceon 01-04-2023 Anticoagulation Monitoring Service Today's INR [id number] IO INR2.6 Target INR range2-3 [facility] History of Present Illness Patient identification verified with 2 patient identifiers. Anticoagulation Monitoring Service: [facility]. August 10, 2023. The patient is being seen as a follow-up for anticoagulation monitoring. Target INR 2-3. Monitoring practitioner Ronit Doan DO. Date Warfarin Begun: August 01, 2022. INR monitoring is per [facility] protocol. The patient is on anticoagulation due to atrial fibrillation/flutter. The patient is currently taking warfarin Tablet strength and color: 2.5 mg (Green) 5 mg([place]). Interval History: Patient was last seen: December 28, 2022. Previous INR was 2.3. Incoming total weekly dose 13.75 mg. Today's Clinic INR: [facility] INR 2.6. Since last visit, the patient [...] and color: 2.5 mg (Green) and 5 mg([place]). Next Appointment: Wednesday, January 18, 2023. Time: 2: 15 pm. Location: [facility], . Your INR today is within range [...] #1 Coumadin Patient: PAU MUÑOZ; : 1950; [id number] 10:[id number] 10:[id number] 10:[id number] 01:43TX46Zol2620 10:07AM IO PT/INR PT + INR, Plasma PT/INR (POC) Recorded INR Coagulation Screen Current Dose New Dose Recheck in Patient Notified Comments IO INR2.62.33.332.4 PT, INR Target INR [id number] Normal [employer] Today's INRon 01-04-2023 Today's INR AMS Anticoagulati on [facility] Work Phone: Today's INR 2-3 Anticoagulati on [facility] Work Phone: Anticoagulation Monitoring S erviceon 12-28-2022 Anticoagulation Monitoring Service Today's INR [id number] IO INR2.3 Target INR range2-3 [facility] History of Present Illness Patient identification verified with 2 patient identifiers. Anticoagulation Monitoring Service: [facility]. August 10, 2023. The patient is being seen as a follow-up for anticoagulation monitoring. Target INR 2-3. Monitoring practitioner Ronit Doan DO. Date Warfarin Begun: August 01, 2022. INR monitoring is per [facility] protocol. The patient is on anticoagulation due to atrial fibrillation/flutter. The patient is currently taking warfarin Tablet strength and color: 2.5 mg (Green) 5 mg([place]). Interval History: Patient was last seen: December [...] and color: 2.5 mg (Green) and 5 mg([place]). Next Appointment: Wednesday, January 04, 2023. Time: 10: 30 am. Location: [facility], . Your INR today is within range [...] #1 Coumadin Patient: PAU MUÑOZ; : 1950; [id number] 10:[id number] 10:[id number] 01:30WA55Qpp0228 10:[id number] 10:64TD40Ooi0967 08:52AM IO PT/INR PT + INR, Plasma PT/INR (POC) Recorded INR Coagulation Screen Current Dose New Dose Recheck in Patient Notified Comments IO INR2.33.332.42.6 PT, INR2.1 Target INR [id number] Normal [employer] Today's INRon 12-28-2022 Today's INR AMS Anticoagulati on [facility] Work Phone: Today's INR 2-3 Anticoagulati on [facility] Work Phone: Anticoagulation Monitoring S erviceon 12-20-2022 Anticoagulation Monitoring Service Today's INR [id number] IO INR3.3 Target INR range2-3 [facility] History of Present Illness Patient identification verified with 2 patient identifiers. Anticoagulation Monitoring Service: [facility]. August 10, 2023. The patient is being seen as a follow-up for anticoagulation monitoring. Target INR 2-3. Monitoring practitioner Ronit Doan DO. Date Warfarin Begun: August 01, 2022. INR monitoring is per [facility] protocol. The patient is on anticoagulation due to atrial fibrillation/flutter. The patient is currently taking warfarin Tablet strength and color: 2.5 mg (Green) 5 mg([place]). Interval History: Patient was last seen: December [...] and color: 2.5 mg (Green) and 5 mg([place]). Next Appointment: Wednesday, December 28, 2022. Time: 10: 45 am. Location: [facility], . Your INR today is higher than [...] #1 Coumadin Patient: PAU MUÑOZ; : 1950; [id number] 10:[id number] 01:03VM13Gla4931 10:[id number] 10:[id number] 10:64AN49Upb6232 08:52AM IO PT/INR PT + INR, Plasma PT/INR (POC) Recorded INR Coagulation Screen Current Dose New Dose Recheck in Patient Notified Comments IO INR3.332.42.62.6 PT, INR2.1 Target INR [id number] Normal [employer] Today's INRon 12-20-2022 Today's INR AMS Anticoagulati on [facility] Work Phone: Today's INR 2-3 Anticoagulati on [facility] Work Phone: Anticoagulation Monitoring S erviceon 12-13-2022 Anticoagulation Monitoring Service Today's INR [id number] IO INR3 Target INR range2-3 [facility] History of Present Illness Patient identification verified with 2 patient identifiers. Anticoagulation Monitoring Service: [facility]. August 10, 2023. The patient is being seen as a follow-up for anticoagulation monitoring. Target INR 2-3. Monitoring practitioner Ronit Doan DO. Date Warfarin Begun: August 01, 2022. INR monitoring is per [facility] protocol. The patient is on anticoagulation due to atrial fibrillation/flutter. The patient is currently taking warfarin Tablet strength and color: 2.5 mg (Green) 5 mg([place]). Interval History: Patient was last seen: November [...] and color: 2.5 mg (Green) and 5 mg([place]). Next Appointment: Tuesday, December 20, 2022. Time: 10: 45 am. Location: [facility], . Your INR today is within range [...] #1 Coumadin Patient: PAU MUÑOZ; : 1950; [id number] 01:[id number] 10:[id number] 10:[id number] 10:62JO06Stb2523 09:99AP79Shf6037 08:52AM IO PT/INR PT + INR, Plasma PT/INR (POC) Recorded INR Coagulation Screen Current Dose New Dose Recheck in Patient Notified Comments IO INR32.42.62.62.8 PT, INR2.1 Target INR -46-29-32-32-3 Normal [employer] Today's INRon 12-13-2022 Today's INR 2-3 Anticoagulati on [facility] Work Phone: Today's INR AMS Anticoagulati on [facility] Work Phone: Anticoagulation Monitoring S erviceon 11-29-2022 Anticoagulation Monitoring Service Today's INR [id number] IO INR2.4 Target INR range2-3 [facility] History of Present Illness Patient identification verified with 2 patient identifiers. Anticoagulation Monitoring Service: [facility]. August 10, 2023. The patient is being seen as a follow-up for anticoagulation monitoring. Target INR 2-3. Monitoring practitioner Ronit Doan DO. Date Warfarin Begun: August 01, 2022. INR monitoring is per [facility] protocol. The patient is on anticoagulation due to atrial fibrillation/flutter. The patient is currently taking warfarin Tablet strength and color: 2.5 mg (Green) 5 mg([place]). Interval History: Patient was last seen: November [...] and color: 2.5 mg (Green) and 5 mg([place]). Next Appointment: December 27, 2022. Time: 10: 30 am. Location: [facility], . Your INR today is within range [...] #1 Coumadin Patient: PAU MUÑOZ; : 1950; [id number] 10:[id number] 10:[id number] 10:04FM32Iof7653 09:[id number] 02:89KT08Hck0712 08:52AM IO PT/INR PT + INR, Plasma PT/INR (POC) Recorded INR Coagulation Screen Current Dose New Dose Recheck in Patient Notified Comments IO INR2.42.62.62.83.3 PT, INR2.1 Target INR -56-28-32-32-3 Normal [facility] Today's INRon 11-29-2022 Today's INR 2-3 Anticoagulati on [facility] Work Phone: Today's INR AMS Anticoagulati on [facility] Work Phone: Anticoagulation Monitoring S erviceon 11-15-2022 Anticoagulation Monitoring Service Today's INR [id number] IO INR2.6 Target INR range2-3 [facility] History of Present Illness Patient identification verified with 2 patient identifiers. Anticoagulation Monitoring Service: [facility]. August 10, 2023. The patient is being seen as a follow-up for anticoagulation monitoring. Target INR 2-3. Monitoring practitioner Ronit Doan DO. Date Warfarin Begun: August 01, 2022. INR monitoring is per [facility] protocol. The patient is on anticoagulation due to atrial fibrillation/flutter. The patient is currently taking warfarin Tablet strength and color: 2.5 mg (Green) 5 mg([place]). Interval History: Patient was last seen: November [...] and color: 2.5 mg (Green) and 5 mg([place]). Next Appointment: Tuesday, November 29, 2022. Time: 10: 15 am. Location: [facility], . Your INR today is within range [...] #1 Coumadin Patient: PAU MUÑOZ; : 1950; [id number] 10:[id number] 10:26ZA91Kiw2143 09:[id number] 02:62UO00Ing2470 01:76KU88Hrb9844 08:52AM IO PT/INR PT + INR, Plasma PT/INR (POC) Recorded INR Coagulation Screen Current Dose New Dose Recheck in Patient Notified Comments IO INR2.62.62.83.32.8 PT, INR2.1 Target INR -18-79-32-32-3 Normal [employer] Today's INRon 11-15-2022 Today's INR 2-3 Anticoagulati on [facility] Work Phone: Today's INR AMS Anticoagulati on [facility] Work Phone: Anticoagulation Monitoring S erviceon 11-01-2022 Anticoagulation Monitoring Service Today's INR 01Nov2022 IO INR2.6 Target INR range2-3 [facility] History of Present Illness Patient identification verified with 2 patient identifiers. Anticoagulation Monitoring Service: [facility]. August 10, 2023. The patient is being seen as a follow-up for anticoagulation monitoring. Target INR 2-3. Monitoring practitioner Ronit Doan DO. Date Warfarin Begun: August 01, 2022. INR monitoring is per [facility] protocol. The patient is on anticoagulation due to atrial fibrillation/flutter. The patient is currently taking warfarin Tablet strength and color: 2.5 mg (Green) 5 mg([place]). Interval History: Patient was last seen: October [...] and color: 2.5 mg (Green) and 5 mg([place]). Next Appointment: November 15, 2022. Time: 10: 30 am. Location: [facility], . Your INR today is within range [...] #1 Coumadin Patient: PAU MUÑOZ; : 1950; [id number] 10:[id number] 09:[id number] 02:[id number] 01:77BT05Swt6559 01:18PM IO PT/INR PT + INR, Plasma PT/INR (POC) Recorded INR Coagulation Screen Current Dose New Dose Recheck in Patient Notified Comments IO INR2.62.83.32.83.9 PT, INR Target INR [id number] Normal [employer] HEMOGLOBIN A1Con 11-01-2022 Lab Specimen Source Normal [facility] Comment on above: Performed By: #### H BA1E #### [facility] [address] [place] [address] Hemoglobin A1Con 11-01-2022 Glucose [Mass/Vol] 134 mg/dL Normal [facility]Car diology[facility] Work Phone: Comment on above: Performed By: #### H BA1E #### [facility] [address] [place] [address] HbA1c (Bld) [Mass fraction] 6.3 % Abnormal [facility] Work Phone: Comment on above: SOURCE: Diagnosis of Diabetes-Adults Non-Diabetic: < or = 5.6% Increased risk for developing diabetes: 5.7-6.4% Diagnostic of diabetes: > or = 6.5%. Monitoring of Diabetes Age (y) Therapeutic Goal (%) Adults: >18 <7.0 Pediatrics: 13-18 <7.5 7-12 <8.0 0- 6 7.5-8.5 [employer]. Diabetes Care 33(S1), May 2009. Result Comment: Diag nosis of Diabetes-Adults Non-Diabetic: < or = 5.6% Increased risk for developing diabetes: 5.7-6.4% Diagnostic of diabetes: > or = 6.5% . Monitoring of Diabetes Age (y) Therapeutic Goal (%) Adults: >18 <7.0 Pediatrics: 13-18 <7.5 7-12 <8.0 0- 6 7.5-8.5 [employer]. Diabetes Care 33(S1), May 2009. Performed By: #### H BA1E #### [facility] [address] [place] [address] Laboratory - Chemistry and C hemistry - challengeon 11-01-2022 TSH Qn 1.77 m[IU]/L See Below [facility]Cardiolog y[facility] Work Phone: Comment on above: SOURCE: Reference Ra nge: 0.44 - 3.98 TSH testing is performed using different testing methodology at [facility] ([facility]) than at other [facility]. Direct result comparisons should only be made within the same method. TSH WITH REFLEX TO FREE T4 I F ABNORMALon 11-01-2022 TSH Qn 1.77 m[IU]/L Normal 0.44 - 3.98 [facility] Comment on above: Result Comment: TSH testing is performed using different testing methodology at [facility] ([facility] than at other [facility]. Direct result comparisons should only be made within the same method. Performed By: #### H BA1E #### [facility] [address] [place] [address] Today's INRon 11-01-2022 Today's INR AMS [facility] Work Phone: Today's INR 2-3 [facility] Work Phone: Anticoagulation Monitoring S erviceon 10-26-2022 Anticoagulation Monitoring Service Today's INR [id number] IO INR2.8 Target INR range2-3 SourceAMS History of Present Illness Patient identification verified with 2 patient identifiers. Anticoagulation Monitoring Service: [facility]. August 10, 2023. The patient is being seen as a follow-up for anticoagulation monitoring. Target INR 2-3. Monitoring practitioner Ronit Doan DO. Date Warfarin Begun: August 01, 2022. INR monitoring is per [facility] protocol. The patient is on anticoagulation due to atrial fibrillation/flutter. The patient is currently taking warfarin Tablet strength and color: 2.5 mg (Green) 5 mg([place]). Interval History: Patient was last seen: October 18, 2022. Previous INR was 3.3. TWD of warfarin was reduced at time of last appointment. Incoming total weekly dose 15 mg. Today's Clinic INR: [facility] INR 2.8. Since last visit, the patient [...] and color: 2.5 mg (Green) and 5 mg([place]). Next Appointment: Tuesday, November 01, 2022. Time: 10: 30 am. Location: [facility], . Your INR today is within range [...] #1 Coumadin Patient: PAU MUÑOZ; : 1950; [id number] 09:99AV30Khk3794 02:01WE43Ywv2879 01:00ZY09Zob5489 01:99IW17Uif0580 11:45AM IO PT/INR PT + INR, Plasma PT/INR (POC) Recorded INR Coagulation Screen Current Dose New Dose Recheck in Patient Notified Comments IO INR2.83.32.83.93.5 PT, INR Target INR -53-90-32-32-3 Normal Touchworks Today's INRon 10-26-2022 Today's INR AMS [facility] Work Phone: Today's INR 2-3 [facility] Work Phone: Anticoagulation Monitoring S erviceon 10-18-2022 Anticoagulation Monitoring Service Today's INR [id number] IO INR3.3 Target INR range2-3 SourceAMS History of Present Illness Patient identification verified with 2 patient identifiers. Anticoagulation Monitoring Service: [facility]. August 10, 2023. The patient is being seen as a follow-up for anticoagulation monitoring. Target INR 2-3. Monitoring practitioner Ronit Doan DO. Date Warfarin Begun: August 01, 2022. INR monitoring is per [facility] protocol. The patient is on anticoagulation due to atrial fibrillation/flutter. The patient is currently taking warfarin Tablet strength and color: 2.5 mg (Green) 5 mg([place]). Interval History: Patient was last seen: October [...] and color: 2.5 mg (Green) and 5 mg([place]). Next Appointment: Tuesday, October 25, 2022. Time: 1: 15 pm. Location: [facility], . Your INR today is higher than [...] #1 Coumadin Patient: PAU MUÑOZ; : 1950; [id number] 02:[id number] 01:91QD94Vhi5532 01:54TF52Yhe3627 11:08KC90Uxn6778 11:21AM IO PT/INR PT + INR, Plasma PT/INR (POC) Recorded INR Coagulation Screen Current Dose New Dose Recheck in Patient Notified Comments IO INR3.32.83.93.53.4 PT, INR Target INR [id number] Normal Touchworks Today's INRon 10-18-2022 Today's INR 2-3 [facility] Work Phone: Today's INR AMS [facility] Work Phone: Falls Screening (Age 18+)on 10-14-2022 Fall risk assessment a) No falls within the last year [facility] Work Phone: Tobacco use status CPHS b) No [facility] Work Phone: Office Visit (Cardiology)on 10-14-2022 [...] of Pacemaker Placement 2008: [employer] Sensia SEDR01 #[id number] History of Tubal ligation at 27 y/o [...] obesity w (more content not included)... Normal [facility] Anticoagulation Monitoring S ertristoneon 10-11-2022 Anticoagulation Monitoring Service Today's INR [id number] IO INR2.8 Target INR range2-3 SourceAMS History of Present Illness Patient identification verified with 2 patient identifiers. Anticoagulation Monitoring Service: [facility]. August 10, 2023. The patient is being seen as a follow-up for anticoagulation monitoring. Target INR 2-3. Monitoring practitioner Ronit Doan DO. Date Warfarin Begun: August 01, 2022. INR monitoring is per [facility] protocol. The patient is on anticoagulation due to atrial fibrillation/flutter. The patient is currently taking warfarin Tablet strength and color: 2.5 mg (Green) 5 mg([place]). Interval History: Patient was last seen: October [...] and color: 2.5 mg (Green) and 5 mg([place]). Next Appointment: Tuesday, October 18, 2022. Time: Location: [facility], . Your INR today is within range [...] #1 Coumadin Patient: PAU MUÑOZ; : 1950; [id number] 01:[id number] 01:13YE64Kmk6403 11:75JN62Uhi6175 11:48GW08Ybj2739 11:25AM IO PT/INR PT + INR, Plasma PT/INR (POC) Recorded INR Coagulation Screen Current Dose New Dose Recheck in Patient Notified Comments IO INR2.83.93.53.42.6 PT, INR Target INR [id number] Normal Touchworks Today's INRon 10-11-2022 Today's INR AMS [facility] Work Phone: Today's INR 2-3 [facility] Work Phone: Anticoagulation Monitoring S finn 10-04-2022 Anticoagulation Monitoring Service Today's INR [id number] IO INR3.9 Target INR range2-3 SourceAMS History of Present Illness Patient identification verified with 2 patient identifiers. Anticoagulation Monitoring Service: [facility]. August 10, 2023. The patient is being seen as a follow-up for anticoagulation monitoring. Target INR 2-3. Monitoring practitioner Ronit Doan DO. Date Warfarin Begun: November 01, 2022. INR monitoring is per [facility] protocol. The patient is on anticoagulation due to atrial fibrillation/flutter. The patient is currently taking warfarin Tablet strength and color: 2.5 mg (Green) 5 mg([place]). Interval History: Patient was last seen: September [...] Warfarin. Your tablet strength and color: 5 mg([place]) and 2.5 mg (Green). Next Appointment: Tuesday, October 11, 2022. Time: 1: 45 pm. Location: [facility], . Your INR today is higher than [...] #1 Coumadin Patient: PAU MUÑOZ; : 1950; [id number] 01:70IS65Lrk5551 11:34IJ94Lyf2408 11:69AT58Vhu4681 11:21JQ42Yhp0657 11:08AM IO PT/INR PT + INR, Plasma PT/INR (POC) Recorded INR Coagulation Screen Current Dose New Dose Recheck in Patient Notified Comments IO INR3.93.53.42.61.9 PT, INR Target INR [id number] Normal [facility] Today's INRon 10-04-2022 Today's INR 2-3 Anticoagulati on [facility] Work Phone: Today's INR AMS Anticoagulati on [facility] Work Phone: Anticoagulation Monitoring S erviceon 09-27-2022 Anticoagulation Monitoring Service Today's INR [id number] IO INR3.5 Target INR range2-3 SourceAMS History of Present Illness Patient identification verified with 2 patient identifiers. Anticoagulation Monitoring Service: [facility]. August 10, 2023. The patient is being seen as a follow-up for anticoagulation monitoring. Target INR 2-3. Monitoring practitioner Ronit Doan DO. Date Warfarin Begun: August 01, 2022. INR monitoring is per [facility] protocol. The patient is on anticoagulation due to atrial fibrillation/flutter. The patient is currently taking warfarin Tablet strength and color: 2.5 mg (Green) 5 mg([place]). Interval History: Patient was last seen: September [...] Warfarin. Your tablet strength and color: 5 mg([place]) and 2.5 mg (Green). Next Appointment: Tuesday, October 04, 2022. Time: 1: 15 pm. Location: [facility], . Your INR today is higher than [...] #1 Coumadin Patient: PAU MUÑOZ; : 1950; [id number] 11:00DH88Rls9153 11:26MO56Exa1233 11:16CP52Vuz1127 11:30ZX22Tig3677 10:36AM IO PT/INR PT + INR, Plasma PT/INR (POC) Recorded INR Coagulation Screen Current Dose New Dose Recheck in Patient Notified Comments IO INR3.53.42.61.94.3 PT, INR Target INR [id number] Normal Touchworks Today's INRon 09-27-2022 Today's INR 2-3 Anticoagulati on [facility] Work Phone: Today's INR AMS Anticoagulati on [facility] Work Phone: Anticoagulation Monitoring S erviceon 09-21-2022 Anticoagulation Monitoring Service Today's INR [id number] IO INR3.4 Target INR range2-3 SourceAMS History of Present Illness Patient identification verified with 2 patient identifiers. Anticoagulation Monitoring Service: [facility]. August 10, 2023. The patient is being seen as a follow-up for anticoagulation monitoring. Target INR 2-3. Monitoring practitioner Ronit Doan DO. Date Warfarin Begun: August 01, 2022. INR monitoring is per [facility] protocol. The patient is on anticoagulation due to atrial fibrillation/flutter. The patient is currently taking warfarin Tablet strength and color: 2.5 mg (Green) 5 mg([place]). Interval History: Patient was last seen: September [...] Warfarin. Your tablet strength and color: 5 mg([place]) and 2.5 mg (Green). Next Appointment: Wednesday, September 28, 2022. Time: 11: 30 am. Location: [facility], . Your INR today is higher than [...] #1 Coumadin Patient: PAU MUÑOZ; : 1950; [id number] 11:07UI16Zzk4882 11:87CZ88Vpr3830 11:23RU60Yls7451 10:27AO05Amk0667 10:57AM IO PT/INR PT + INR, Plasma PT/INR (POC) Recorded INR Coagulation Screen Current Dose New Dose Recheck in Patient Notified Comments IO INR3.42.61.94.33.6 PT, INR Target INR [id number] Normal [facility] Today's INRon 09-21-2022 Today's INR 2-3 Anticoagulati on [facility] Work Phone: Today's INR AMS Anticoagulati on [facility] Work Phone: Blood Pressure Cuff Sizeon 0 09-15-2022 Tobacco use status CPHS b) No -[facility] Work Phone: Blood Pressure Cuff Size Adult [facility] Work Phone: Office Visit (Vascular [facility])on [...] intensity statin-has not tolerated high intensity 09/2021 LDL=50,WS=317 Hypertension (401.9) (I10) BP OK on current meds Weight loss/Salt restriction Hypokalemia (276.8) (E87.6) IBS (irritable bowel syndrome) (564.1) (K58.9) Impaired ambulation (719.7) (R26.2) Impaired fasting glucose (790.21) (R73.01) Lumbar strain, initial encounter (847.2) (S39.012A) Medicare annual wellness visit, subsequent (V70.0) (Z (more content not included)... Normal [facility] Anticoagulation Monitoring S erviceon 09-14-2022 Anticoagulation Monitoring Service Today's INR [id number] IO INR2.6 Target INR range2-3 SourceAMS History of Present Illness Patient identification verified with 2 patient identifiers. Anticoagulation Monitoring Service: [facility]. August 10, 2023. The patient is being seen as a follow-up for anticoagulation monitoring. Target INR 2-3. Monitoring practitioner Ronit Doan DO. Date Warfarin Begun: August 01, 2022. INR monitoring is per [facility] protocol. The patient is on anticoagulation due to atrial fibrillation/flutter. The patient is currently taking warfarin Tablet strength and color: 5 mg([place]) Interval History: Patient was last seen: September 09, 2022. Previous INR was 1.9. Two doses were held and TWD was reduced at time of last appointment. Incoming total weekly dose 17.5 mg. Today's Clinic INR: [facility] INR 2.6. Since last visit, the patient [...] Warfarin. Your tablet strength and color: 5 mg([place]) Next Appointment: Wednesday, September 21, 2022. Time: 11: 30 am. Location: [facility], . Your INR today is within range [...] #1 Coumadin Patient: PAU MUÑOZ; : 1950; [id number] 11:42WG23Vpr3800 11:12AL46Nye6736 10:18FX52Aoo0845 10:87UE64Mzx4771 11:25AM IO PT/INR PT + INR, Plasma PT/INR (POC) Recorded INR Coagulation Screen Current Dose New Dose Recheck in Patient Notified Comments IO INR2.61.94.33.64.9 PT, INR Target INR [id number] Normal Touchworks Today's INRon 09-14-2022 Today's INR 2-3 [facility] Work Phone: Today's [facility]R [facility] Work Phone: Anticoagulation Monitoring S erviceon 09-09-2022 Anticoagulation Monitoring Service Today's INR [id number] IO INR1.9 Target INR range2-3 SourceAMS History of Present Illness Patient identification verified with 2 patient identifiers. Anticoagulation Monitoring Service: [facility]. August 10, 2023. The patient is being seen as a follow-up for anticoagulation monitoring. Target INR 2-3. Monitoring practitioner Ronit Doan DO. Date Warfarin Begun: August 01, 2022. INR monitoring is per [facility] protocol. The patient is on anticoagulation due to atrial fibrillation/flutter. The patient is currently taking warfarin Tablet strength and color: 5 mg([place]) Interval History: Patient was last seen: September 06, 2022. Previous INR was 4.3. Two doses were held and TWD was reduced at time of last appointment. Incoming total weekly dose 17.5 mg. Today's Clinic INR: [facility] INR 1.9. Since last visit, the patient [...] Warfarin. Your tablet strength and color: 5 mg([place]) Next Appointment: Wednesday, September 14, 2022. Time: 11: 30 am. Location: [facility], . Your INR today is lower than [...] #1 Coumadin Patient: PAU MUÑOZ; : 1950; [id number] 11:13BU83Qid6069 10:00KA32Yws5429 10:04DO32Hlb2951 11:01MG32Eqe3464 10:33AM IO PT/INR PT + INR, Plasma PT/INR (POC) Recorded INR Coagulation Screen Current Dose New Dose Recheck in Patient Notified Comments IO INR1.94.33.64.93.9 PT, INR Target INR zboik3-17-49-32-32-3 Normal [facility] Today's INRon 09-09-2022 Today's INR AMS Anticoagulati on [facility] Work Phone: Today's INR 2-3 Anticoagulati on [facility] Work Phone: Anticoagulation Monitoring S erviceon 09-06-2022 Anticoagulation Monitoring Service Today's INR [id number] IO INR4.3 Target INR range2-3 SourceAMS History of Present Illness Patient identification verified with 2 patient identifiers. Anticoagulation Monitoring Service: [facility]. August 10, 2023. The patient is being seen as a follow-up for anticoagulation monitoring. Target INR 2-3. Monitoring practitioner Ronit Doan DO. Date Warfarin Begun: August 01, 2022. INR monitoring is per [facility] protocol. The patient is on anticoagulation due to atrial fibrillation/flutter. The patient is currently taking warfarin Tablet strength and color: 5 mg([place]) Interval History: Patient was last seen: August 30, 2022. Previous INR was 3.6. One dose of warfarin was held and TWD was reduced at time of last appointment. Incoming total weekly dose 20 mg. Today's Clinic INR: [facility] INR 4.3. Since last visit, the patient [...] Warfarin. Your tablet strength and color: 5 mg([place]) Please do not take any warfarin today, Tuesday, September 06, 2022, or tomorrow, Monday, September 07, 2022. Next Appointment: Friday, September 09, 2022. Time: 11: 00 am. Location: [facility], . Your INR today is higher than [...] #1 Coumadin Patient: PAU MUÑOZ; : 1950; [id number] 10:[id number] 10:39LT89Cri9116 11:63AQ28Jjq0132 10:82FZ10Ljx6769 03:86OK24Yyu8519 08:52AM IO PT/INR PT + INR, Plasma PT/INR (POC) Recorded INR Coagulation Screen Current Dose New Dose Recheck in Patient Notified Comments IO INR4.33.64.93.92.3 PT, INR2.1 Target INR [id number] Normal [facility] Today's INRon 09-06-2022 Today's INR AMS Anticoagulati on [facility] Work Phone: Today's INR 2-3 Anticoagulati on [facility] Work Phone: Anticoagulation Monitoring S erviceon 08-30-2022 Anticoagulation Monitoring Service Today's INR [id number] IO INR3.6 Target INR range2-3 SourceAMS History of Present Illness Patient identification verified with 2 patient identifiers. Anticoagulation Monitoring Service: [facility]. August 10, 2023. The patient is being seen as a follow-up for anticoagulation monitoring. Target INR 2-3. Monitoring practitioner Ronit Doan DO. Date Warfarin Begun: August 01, 2022. INR monitoring is per [facility] protocol. The patient is on anticoagulation due to atrial fibrillation/flutter. The patient is currently taking warfarin Tablet strength and color: 5 mg([place]) Interval History: Patient was last seen: August [...] Warfarin. Your tablet strength and color: 5 mg([place]) Please do not take any warfarin today, Monday, August 24, 2022, or tomorrow, , August 25, 2022. Next Appointment: Tuesday, September 06, 2022. Time: 10: 45 am. Location: [facility], . Your INR today is higher than [...] #1 Coumadin Patient: PAU MUÑOZ; : 1950; [id number] 10:68WX95Fbh0275 11:86GN91Izn3887 10:03JH17Gwc3216 03:13OV76Crc8282 08:39II39Wap8225 08:13AM IO PT/INR PT + INR, Plasma PT/INR (POC) Recorded INR Coagulation Screen Current Dose New Dose Recheck in Patient Notified Comments IO INR3.64.93.92.3 PT, INR2.1 4.9 Target INR roldq8-04-19-32-3 Normal [facility] Today's INRon 08-30-2022 Today's INR 2-3 Anticoagulati on [facility] Work Phone: Today's INR AMS Anticoagulati on [facility] Work Phone: Anticoagulation Monitoring S erviceon 08-24-2022 Anticoagulation Monitoring Service Today's INR [id number] IO INR4.9 Target INR range2-3 SourceAMS History of Present Illness Patient identification verified with 2 patient identifiers. Anticoagulation Monitoring Service: [facility]. August 10, 2023. The patient is being seen as a follow-up for anticoagulation monitoring. Target INR 2-3. Monitoring practitioner Ronit Doan DO. Date Warfarin Begun: August 01, 2022. INR monitoring is per [facility] protocol. The patient is on anticoagulation due to atrial fibrillation/flutter. The patient is currently taking warfarin Tablet strength and color: 5 mg([place]) Interval History: Patient was last seen: August 19, 2022. Previous INR was 3.9. One dose of warfarin was held and TWD was reduced at time of last appointment. Incoming total weekly dose 27.5 mg. Today's Clinic INR: [facility] INR 4.9. Since last visit, the patient [...] Warfarin. Your tablet strength and color: 5 mg([place]) Please do not take any warfarin today, Monday, August 24, 2022, or tomorrow, , August 25, 2022. Next Appointment: Tuesday, August 30, 2022. Time: 10: 45 am. Location: [facility], . Your INR today is higher than [...] #1 Coumadin Patient: PAU MUÑOZ; : 1950; [id number] 11:98EB53Uvv0652 10:17RM95Qoi4023 03:17ML38Qfc1075 08:82CM90Ljg7809 08:49JM77Coj6270 08:05AM IO PT/INR PT + INR, Plasma PT/INR (POC) Recorded INR Coagulation Screen Current Dose New Dose Recheck in Patient Notified Comments IO INR4.93.92.3 PT, INR2.1 4.9 1.6 Target INR epkzl5-28-57-3 Normal [employer] Today's INRon 08-24-2022 Today's INR AMS Anticoagulati on [facility] Work Phone: Today's INR 2-3 Anticoagulati on [facility] Work Phone: Anticoagulation Monitoring S erviceon 08-19-2022 Anticoagulation Monitoring Service Today's INR [id number] IO INR3.9 Target INR range2-3 SourceAMS History of Present Illness Patient identification verified with 2 patient identifiers. Anticoagulation Monitoring Service: [facility]. August 10, 2023. The patient is being seen as a follow-up for anticoagulation monitoring. Target INR 2-3. Monitoring practitioner Ronit Doan DO. Date Warfarin Begun: August 01, 2022. INR monitoring is per [facility] protocol. The patient is on anticoagulation due to atrial fibrillation/flutter. The patient is currently taking warfarin Tablet strength and color: 5 mg([place]) Interval History: Patient was last seen: August 16, 2022. Previous INR was 2.3. Incoming total weekly dose 30 mg. Today's Clinic INR: [facility] INR 3.9. Since last visit, the patient [...] Warfarin. Your tablet strength and color: 5 mg([place]) Please do not take any warfarin today, Friday, August 19, 2022. Next Appointment: Wednesday, August 24, 2022. Time: 11: 30 am. Location: [facility], . Your INR today is higher than [...] #1 Coumadin Patient: PAU MUÑOZ; : 1950; [id number] 10:97PV57Qem4419 03:95RV93Wdn0208 08:66PB68Sys9100 08:75HY24Mmg2384 08:81UF68Jir1625 01:14PM IO PT/INR PT + INR, Plasma PT/INR (POC) Recorded INR Coagulation Screen Current Dose New Dose Recheck in Patient Notified Comments IO INR3.92.3 PT, INR2.1 4.9 1.6 1.2 Target INR range2-32-3 Normal [facility] Today's INRon 08-19-2022 Today's INR AMS Anticoagulati on [facility] Work Phone: Today's INR 2-3 Anticoagulati on [facility] Work Phone: Blood Pressure Cuff Sizeon 0 08-18-2022 Tobacco use status CPHS b) No -[facility] Work Phone: Blood Pressure Cuff Size Adult [facility] Work Phone: Office Visit ([facility]ascular [facility])on 08-18-2022 Follow-up visit Diagnoses/Problems Assessed [...] intensity statin-has not tolerated high intensity 09/2021 LDL=50,RN=364 Hypertension (401.9) (I10) BP OK on current [...] Prophylactic antibioti (more content not included)... Normal [facility] Anticoagulation Monitoring S erviceon 08-16-2022 Anticoagulation Monitoring Service Today's INR [id number] IO INR2.3 Target INR range2-3 SourceAMS History of Present Illness Patient identification verified with 2 patient identifiers. Anticoagulation Monitoring Service: [facility]. Enrollment/Re-enrollme nt date: August 17, 2023. The patient is being seen as a new patient for anticoagulation monitoring. Target INR 2-3. Monitoring practitioner Ronit Doan DO. Date Warfarin Begun: August 01, 2022. INR monitoring is per [facility] protocol. The patient is on anticoagulation due to atrial fibrillation/flutter. The patient is currently taking warfarin Tablet strength and color: 5 mg([place]) Interval History: Previous INR was 2.1. INR [...] 19, 2022. Time: 10: 30 am. Location: [facility], . Your INR today is within range [...] #1 Coumadin Patient: PAU MUÑOZ; : 1950; [id number] 03:47NL95Hkq1434 08:92VA77Zho9947 08:49DQ86Xpp1699 08:23AP14Uax8845 01:70TL05Ypa0621 11:20AM IO PT/INR PT + INR, Plasma PT/INR (POC) Recorded INR Coagulation Screen Current Dose New Dose Recheck in Patient Notified Comments IO INR2.3 PT, INR2.1 4.9 1.6 1.2 1.0 Target INR range2-3 Normal [facility] CBC AND DIFFERENTIALon 08-16 % AUTOMATED IMMATURE GRAN 0.3 % Normal 0.0 - 0.9 [facility] Comment on above: Result Comment: Ammy ture Granulocyte Count (IG) includes promyelocytes, myelocytes and metamyelocytes but does not include bands. Percent differential counts (%) should be interpreted in the context of the absolute cell counts (cells/L). Performed By: #### C BCDF #### [facility] [id number] [place] [address] Basophils (Bld) [#/Vol] 0.07 10*3/uL Normal 0.00 - 0.10 [facility] Comment on above: Performed By: #### C BCDF #### [facility] [address] [place] [address] Basophils/100 WBC (Bld) 0.7 % Normal 0.0 - 2.0 [facility] [facility] Comment on above: Performed By: #### C BCDF #### [facility] [address] [place] [address] Eosinophils (Bld) [#/Vol] 0.09 10*3/uL Normal 0.00 - 0.40 [facility] Comment on above: Performed By: #### C BCDF #### [facility] [address] [place] [address] Eosinophils/100 WBC (Bld) 0.9 % Normal 0.0 - 6.0 [facility] Comment on above: Performed By: #### C BCDF #### [facility] [address] [place] [address] Erythrocyte distribution width (RBC) [Ratio] 14.0 % Normal 11.5 - 14.5 [facility] Comment on above: Performed By: #### C BCDF #### [facility] [address] [place] [address] Hematocrit (Bld) [Volume fraction] 43.4 % Normal 36.0 - 46.0 [facility] Comment on above: Performed By: #### C BCDF #### [facility] [address] [place] [address] Hemoglobin (Bld) [Mass/Vol] 14.1 g/dL Normal 12.0 - 16.0 [facility] Comment on above: Performed By: #### C BCDF #### [facility] [address] [place] [address] Lymphocytes (Bld) [#/Vol] 2.59 10*3/uL Normal 0.80 - 3.00 [facility] Comment on above: Performed By: #### C BCDF #### [facility] [address] [place] [address] Lymphocytes/100 WBC (Bld) 25.7 % Normal 13.0 - 44.0 [facility] Comment on above: Performed By: #### C BCDF #### [facility] [address] [place] [address] MCHC (RBC) [Mass/Vol] 32.5 g/dL Normal 32.0 - 36.0 [facility] Comment on above: Performed By: #### C BCDF #### [facility] [address] [place] [address] MCV (RBC) [Entitic vol] 89 fL Normal 80 - 100 [facility] Comment on above: Performed By: #### C BCDF #### [facility] [address] [place] [address] Monocytes (Bld) [#/Vol] 0.60 10*3/uL Normal 0.05 - 0.80 [facility] Comment on above: Performed By: #### C BCDF #### [facility] [address] [place] [address] Monocytes/100 WBC (Bld) 6.0 % Normal 2.0 - 10.0 [facility] Comment on above: Performed By: #### C BCDF #### [facility] [address] [place] [address] Neutrophils (Bld) [#/Vol] 6.68 10*3/uL High 1.60 - 5.50 [facility] Comment on above: Performed By: #### C BCDF #### [facility] [address] [place] [address] Neutrophils/100 WBC (Bld) 66.4 % Normal 40.0 - 80.0 [facility] Comment on above: Performed By: #### C BCDF #### [facility] [address] [place] [address] NUCLEATED RBC 0.0 /100 WBC Normal 0.0-0.0 [facility] Comment on above: Performed By: #### C BCDF #### [facility] [address] [place] [address] Platelets (Bld) [#/Vol] 340 10*3/uL Normal 150 - 450 [facility] Comment on above: Performed By: #### C BCDF #### [facility] [address] [place] [address] RBC 4.88 x10E12/L Normal 4.00 - 5.20 [facility] Comment on above: Performed By: #### C BCDF #### [facility] [address] [place] [address] WBC (Bld) [#/Vol] 10.1 10*3/uL Normal 4.4 - 11.3 [facility] Comment on above: Performed By: #### C BCDF #### [facility] [address] [place] [address] COMPREHENSIVE PANELon 2022 Albumin [Mass/Vol] 4.0 g/dL Normal 3.4 - 5.0 [facility] Comment on above: Performed By: #### H BA1E #### [facility] [address] [place] [address] ALP [Catalytic activity/Vol] 84 U/L Normal 33 - 136 [facility] Comment on above: Performed By: #### H BA1E #### [facility] [address] [place] [address] ALT [Catalytic activity/Vol] 20 U/L Normal 7 - 45 [facility] Comment on above: Result Comment: Luna ents treated with Sulfasalazine may generate falsely decreased results for ALT. Performed By: #### H BA1E #### [facility] [address] [place] [address] Anion gap [Moles/Vol] 14 mmol/L Normal 10 - 20 [facility] Comment on above: Performed By: #### H BA1E #### [facility] [address] [place] [address] AST [Catalytic activity/Vol] 22 U/L Normal 9 - 39 [facility] Comment on above: Performed By: #### H BA1E #### [facility] [address] [place] [address] Bilirubin [Mass/Vol] 0.4 mg/dL Normal 0.0 - 1.2 [facility] Comment on above: Performed By: #### H BA1E #### [facility] [address] [place] [address] Calcium [Mass/Vol] 9.6 mg/dL Normal 8.6 - 10.6 [facility] Comment on above: Performed By: #### H BA1E #### [facility] [address] [place] [address] Chloride [Moles/Vol] 100 mmol/L Normal 98 - 107 [facility] Comment on above: Performed By: #### H TAO1E #### [facility] [address] [place] [address] Creatinine [Mass/Vol] 0.88 mg/dL Normal 0.50 - 1.05 [facility] Comment on above: Performed By: #### H BA1E #### [facility] [address] [place] [address] GFR/1.73 sq M.predicted among non-blacks MDRD (S/P/Bld) [Vol rate/Area] 70 mL/min/{1.73_m2} Normal >90 [facility] Comment on above: Result Comment: CALC ULATIONS OF ESTIMATED GFR ARE PERFORMED USING THE 2020 CKD-EPI STUDY REFIT EQUATION WITHOUT THE RACE VARIABLE FOR THE IDMS-TRACEABLE CREATININE METHODS. https://jasn.asnjournals.org/content//ASN.8564580 988 Performed By: #### H BA1E #### [facility] [address] [place] [address] Glucose [Mass/Vol] 188 mg/dL High 74 - 99 [facility] Comment on above: Performed By: #### H BA1E #### [facility] [address] [place] [address] HCO3 (Bld) [Moles/Vol] 27 mmol/L Normal 21 - 32 [facility] Comment on above: Performed By: #### H BA1E #### [facility] [address] [place] [address] Potassium [Moles/Vol] 4.2 mmol/L Normal 3.5 - 5.3 [facility] Comment on above: Performed By: #### H BA1E #### [facility] [address] [place] [address] Protein [Mass/Vol] 7.4 g/dL Normal 6.4 - 8.2 [facility] Comment on above: Performed By: #### H BA1E #### [facility] [address] [place] [address] Sodium [Moles/Vol] 137 mmol/L Normal 136 - 145 [facility] Comment on above: Performed By: #### H BA1E #### [facility] [address] [place] [address] Urea nitrogen [Mass/Vol] 17 mg/dL Normal 6 - 23 [facility] Comment on above: Performed By: #### H BA1E #### [facility] [address] [place] [address] Complete Blood Count + Diffe rentialon 08-16-2022 Basophils/100 WBC (Bld) 0.7 % 0.0 - 2.0 [facility]tico[facility] Work Phone: Erythrocyte distribution width (RBC) [Ratio] 14.0 % See Below Anticoagulation Monitoring [employer] Work Phone: Comment on above: Reference Range: 11. 5 - 14.5 Hematocrit (Bld) [Volume fraction] 43.4 % See Below Anticoagulatio n Monitoring [employer] Work Phone: Comment on above: Reference Range: 36. 0 - 46.0 Hemoglobin (Bld) [Mass/Vol] 14.1 g/dL See Below [facility]ticoagulation Monitoring [employer] Work Phone: Comment on above: Reference Range: 12. 0 - 16.0 Lymphocytes/100 WBC (Bld) 25.7 % See Below Anticoagulation Monitoring [employer] Work Phone: Comment on above: Reference Range: 13. 0 - 44.0 MCHC (RBC) [Mass/Vol] 32.5 g/dL See Below [facility] Work Phone: Comment on above: Reference Range: 32. 0 - 36.0 MCV (RBC) [Entitic vol] 89 fL 80 - 100 Anticoagulation Monitoring [employer] Work Phone: Monocytes/100 WBC (Bld) 6.0 % 2.0 - 10.0 Anticoagulation Monitoring [employer] Phone: Neutrophils/100 WBC (Bld) 66.4 % See Below Anticoagulation Monitoring [employer] Phone: Comment on above: Reference Range: 40. 0 - 80.0 Platelets (Bld) [#/Vol] 340 10*3/uL 150 - 450 Anticoagulation Monitoring [employer] Phone: RBC (Bld) [#/Vol] 4.88 {x10E12/L} See Below An ticoagulation Monitoring [employer] Phone: Comment on above: Reference Range: 4.0 0 - 5.20 WBC (Bld) [#/Vol] 10.1 10*3/uL 4.4 - 11.3 Antic oagulation Monitoring [employer] Phone: Complete Blood Count + Differential 0.07 {x10E9/L} See Below Anticoagulation Monitoring [employer] Phone: Comment on above: Reference Range: 0.0 0 - 0.10 Complete Blood Count + Differential 0.09 {x10E9/L} See Below Anticoagulation Monitoring [employer] Phone: Comment on above: Reference Range: 0.0 0 - 0.40 Complete Blood Count + Differential 0.60 {x10E9/L} See Below Anticoagulation Monitoring [employer] Phone: Comment on above: Reference Range: 0.0 5 - 0.80 Complete Blood Count + Differential 2.59 {x10E9/L} See Below Anticoagulation Monitoring [employer] Phone: Comment on above: Reference Range: 0.8 0 - 3.00 Complete Blood Count + Differential 6.68 {x10E9/L} above high threshold See Below Anticoagulation Monitoring [employer] Phone: Comment on above: Reference Range: 1.6 0 - 5.50 Complete Blood Count + Differential 0.9 % 0.0 - 6.0 Anticoagulation Monitoring [employer] Work Phone: Complete Blood Count + Differential 0.3 % 0.0 - 0.9 Anticoagulation Monitoring [employer] Work Phone: Comment on above: Immature Granulocyte Count (IG) includes promyelocytes, myelocytes and metamyelocytes but does not include bands. Percent differential counts (%) should be interpreted in the context of the absolute cell counts (cells/L). Complete Blood Count + Differential 0.0 {/100_WBC} 0.0-0.0 Anticoagulation Monitoring [employer] Work Phone: HEMOGLOBIN A1Con 08-16-2022 Glucose [Mass/Vol] 140 mg/dL Normal [facility] Comment on above: Performed By: #### H BA1E #### [facility] [address] [place] [address] HbA1c (Bld) [Mass fraction] 6.5 % Abnormal [facility] Comment on above: Result Comment: Diag nosis of Diabetes-Adults Non-Diabetic: < or = 5.6% Increased risk for developing diabetes: 5.7-6.4% Diagnostic of diabetes: > or = 6.5% . Monitoring of Diabetes Age (y) Therapeutic Goal (%) Adults: >18 <7.0 Pediatrics: 13-18 <7.5 7-12 <8.0 0- 6 7.5-8.5 [employer]. Diabetes Care 33(S1), May 2009. Performed By: #### H BA1E #### [facility] [address] [place] [address] Hemoglobin A1Con 08-16-2022 Glucose [Mass/Vol] 140 mg/dL Antico agulation Monitoring [employer] Work Phone: HbA1c (Bld) [Mass fraction] 6.5 % Abnormal Anticoagulation Monitoring [employer] Work Phone: Comment on above: Diagnosis of Diabete s-Adults Non-Diabetic: < or = 5.6% Increased risk for developing diabetes: 5.7-6.4% Diagnostic of diabetes: > or = 6.5%. Monitoring of Diabetes Age (y) Therapeutic Goal (%) Adults: >18 <7.0 Pediatrics: 13-18 <7.5 7-12 <8.0 0- 6 7.5-8.5 [employer]. Diabetes Care 33(S1), May 2009. LIPID PANEL (CORONARY RISK 2 )on 08-16-2022 Cholesterol [Mass/Vol] 164 mg/dL Normal 0 - 199 [facility] Comment on above: Result Comment: . AGE [...] guidelines reference: NCEP ATPIII Guidelines, OSCAR 2001, 258:7016-97 . Venipuncture immediately after or during the administration of Metamizole may lead to falsely low results. Testing should be performed immediately prior to Metamizole dosing. Performed By: #### L IPID #### [facility] [address] [place] [address] Cholesterol in HDL [Mass/Vol] 69.4 mg/dL Normal [facility] Comment on above: Result Comment: . AGE VERY LOW LOW NORMAL HIGH 0-19 Y < 35 < 40 40-45 ---- 20-24 Y ---- < 40 >45 ---- >24 Y ---- < 40 40-60 >60 . Performed By: #### L IPID #### [facility] [address] [place] [address] Cholesterol in LDL [Mass/Vol] 56 mg/dL Normal 0 - 99 [facility] Comment on above: Result Comment: . NEAR BORD AGE DESIRABLE OPTIMAL HIGH HIGH VERY HIGH 0-19 Y 0 - 109 --- 110-129 >/= 130 ---- 20-24 Y 0 - 119 --- 120-159 >/= 160 ---- >24 Y 0 - 99 100-129 130-159 160-189 >/=190 . Performed By: #### L IPID #### [facility] [address] [place] [address] Cholesterol in VLDL [Mass/Vol] 39 mg/dL Normal 0 - 40 [facility] Comment on above: Performed By: #### L IPID #### [facility] [address] [place] [address] Cholesterol.total/Ch olesterol in HDL [Mass ratio] 2.4 {ratio} Normal [facility] Comment on above: Result Comment: REF VALUES DESIRABLE < 3.4 HIGH RISK > 5.0 Performed By: #### L IPID #### [facility] [address] [place] [address] Triglyceride [Mass/Vol] 194 mg/dL High 0 - 149 [facility] Comment on above: Result Comment: . AGE [...] Performed By: #### L IPID #### [facility] [address] [place] [address] Laboratory - Chemistry and C hemistry - challengeon 08-16-2022 Albumin BCP dye [Mass/Vol] 4.0 g/dL 3.4 - 5.0 [facility]tico[facility] Work Phone: ALP [Catalytic activity/Vol] 84 U/L 33 - 136 [facility]tico[facility] [employer] Work Phone: ALT With P-5'-P [Catalytic activity/Vol] 20 U/L 7 - 45 Anticoagulation Monitoring [employer] Work Phone: Comment on above: Patients treated wit h Sulfasalazine may generate falsely decreased results for ALT. Anion gap [Moles/Vol] 14 mmol/L 10 - 20 [facility]ticoagulation Monitoring [employer] Work Phone: AST With P-5'-P [Catalytic activity/Vol] 22 U/L 9 - 39 Anticoagulation Monitoring [employer] Work Phone: Bilirubin [Mass/Vol] 0.4 mg/dL 0.0 - 1.2 Anti coagulation Monitoring [employer] Work Phone: Calcium [Mass/Vol] 9.6 mg/dL 8.6 - 10.6 Antico agulation Monitoring [employer] Work Phone: Chloride [Moles/Vol] 100 mmol/L 98 - 107 Anti coagulation Monitoring [employer] Work Phone: CO2 [Moles/Vol] 27 mmol/L 21 - 32 Anticoagu lation Monitoring [employer] Work Phone: Creatinine [Mass/Vol] 0.88 mg/dL See Below Anticoagulation Monitoring [employer] Work Phone: Comment on above: Reference Range: 0.5 0 - 1.05 Glucose [Mass/Vol] 188 mg/dL above high threshold 74 - 99 Anticoagulation Monitoring [employer] Work Phone: Potassium [Moles/Vol] 4.2 mmol/L 3.5 - 5.3 Anticoagulation Monitoring [employer] Work Phone: Protein [Mass/Vol] 7.4 g/dL 6.4 - 8.2 Antico agulation Monitoring [employer] Work Phone: Sodium [Moles/Vol] 137 mmol/L 136 - 145 Antico agulation Monitoring [employer] Work Phone: Urea nitrogen [Mass/Vol] 17 mg/dL 6 - 23 Anticoagulation Monitoring [employer] Work Phone: Lipid Panelon 08-16-2022 Cholesterol [Mass/Vol] 164 mg/dL 0 - 199 Anticoagulation Monitoring [employer] Work Phone: Comment on above: . AGE [...] in HDL [Mass/Vol] 69.4 mg/dL Anticoagulation Monitoring [employer] Work Phone: Comment on above: . AGE VERY LOW LOW N ORMAL HIGH 0-19 Y < 35 < 40 40-45 ---- 20- 24 Y ---- < 40 >45 ---- >24 Y ---- < 40 40-60 >60. Cholesterol in LDL [Mass/Vol] 56 mg/dL 0 - 99 Anticoagulation Monitoring [employer] Phone: Comment on above: . NEAR BORD AGE MARRY RABLE OPTIMAL HIGH HIGH VERY HIGH 0-19 Y 0 - 109 --- 110-129 >/= 130 ---- 20-24 Y 0 - 119 --- 120-159 >/= 160 ---- >24 Y 0 - 99 100-129 130-159 160-189 >/=190. Cholesterol.total/Ch olesterol in HDL [Mass ratio] 2.4 {ratio} Anticoagulation Monitoring [employer] Phone: Comment on above: REF VALUESDESIRABLE < 3.4HIGH RISK > 5.0 Triglyceride [Mass/Vol] 194 mg/dL above high threshold 0 - 149 Anticoagulation Monitoring [employer] Phone: Comment on above: . AGE DESIRABLE [...] mg/dL 0 - 40 Anticoagulati on Monitoring [employer] Work Phone: No Panel Informationon 08-16 70 {mL/min/1.73m2} >90 Antico agulation Monitoring [employer] Work Phone: Comment on above: CALCULATIONS OF GALILEA MATED GFR ARE PERFORMED USING THE 2020 CKD-EPI STUDY REFIT EQUATION WITHOUT THE RACE VARIABLE FOR THE IDMS-TRACEABLE CREATININE METHODS.https://jasn.asnjournals.org/content//ASN .[id number] OPIATE/OPIOID/BENZO EXTENDED PRESCRIPTION COMPLIANCEon 08-16-2022 6-ACETYLMORPHINE <25 Normal Cutoff <25 [facility] Comment on above: Performed By: #### D SBOP #### [facility] [address] [place] [address] 7-AMINOCLONAZEPAM <25 Normal Cutoff <25 [facility] Comment on above: Performed By: #### D SBOP #### [facility] [address] [place] [address] ALPHA-HYDROXYALPRAZO WEBSTER <25 Normal Cutoff <25 [facility] Comment on above: Performed By: #### D SBOP #### [facility] [address] [place] [address] ALPHA-HYDROXYMIDAZOL AM <25 Normal Cutoff <25 [facility] Comment on above: Performed By: #### D SBOP #### [facility] [address] [place] [address] ALPRAZOLAM <25 Normal Cutoff <25 [facility] Comment on above: Performed By: #### D SBOP #### [facility] [address] [place] [address] CHLORDIAZEPOXIDE <25 Normal Cutoff <25 [facility] Comment on above: Performed By: #### D SBOP #### [facility] [address] [place] [address] CLONAZEPAM <25 Normal Cutoff <25 [facility] Comment on above: Performed By: #### D SBOP #### [facility] [address] [place] [address] CODEINE <50 Normal Cutoff <50 [facility] Comment on above: Performed By: #### D SBOP #### [facility] [address] [place] [address] DIAZEPAM <25 Normal Cutoff <25 [facility] Comment on above: Performed By: #### D SBOP #### [facility] [address] [place] [address] EDDP,U <25 Normal Cutoff <25 [facility] Comment on above: Result Comment: The performance [...] testing. Performed By: #### D SBOP #### [facility] [address] [place] [address] FENTANYL CONFIRM,U <2.5 Normal Cutoff<2.5 [facility] Comment on above: Performed By: #### D SBOP #### [facility] [address] [place] [address] HYDROCODONE <25 Normal Cutoff <25 [facility] Comment on above: Performed By: #### D SBOP #### [facility] [address] [place] [address] HYDROMORPHONE <25 Normal Cutoff <25 [facility] Comment on above: Performed By: #### D SBOP #### [facility] [address] [place] [address] LORAZEPAM <25 Normal Cutoff <25 [facility] Comment on above: Performed By: #### D SBOP #### [facility] [address] [place] [address] METHADONE,U <25 Normal Cutoff <25 [facility] Comment on above: Performed By: #### D SBOP #### [facility] [address] [place] [address] MIDAZOLAM <25 Normal Cutoff <25 [facility] Comment on above: Performed By: #### D SBOP #### [facility] [address] [place] [address] MORPHINE <50 Normal Cutoff <50 [facility] Comment on above: Performed By: #### D SBOP #### [facility] [address] [place] [address] NORDIAZEPAM <25 Normal Cutoff <25 [facility] Comment on above: Performed By: #### D SBOP #### [facility] [address] [place] [address] NORFENTANYL CONFIRM,U <2.5 Normal Cutoff<2.5 [facility] Comment on above: Result Comment: The performance [...] testing. Performed By: #### D SBOP #### [facility] [address] [place] [address] NORHYDROCODONE <25 Normal Cutoff <25 [facility] Comment on above: Performed By: #### D SBOP #### [facility] [address] [place] [address] NOROXYCODONE <25 Normal Cutoff <25 [facility] Comment on above: Performed By: #### D SBOP #### [facility] [address] [place] [address] O-DESMETHYLTRAMADOL, U >1000 Abnormal Cutoff <50 [facility] Comment on above: Result Comment: Tram adol [...] Performed By: #### D SBOP #### [facility] [address] [place] [address] OXAZEPAM <25 Normal Cutoff <25 [facility] Comment on above: Performed By: #### D SBOP #### [facility] [address] [place] [address] OXYCODONE <25 Normal Cutoff <25 [facility] Comment on above: Performed By: #### D SBOP #### [facility] [address] [place] [address] OXYMORPHONE <25 Normal Cutoff <25 [facility] Comment on above: Result Comment: The performance [...] testing. Performed By: #### D SBOP #### [facility] [address] [place] [address] TEMAZEPAM <25 Normal Cutoff <25 [facility] Comment on above: Result Comment: The performance [...] testing. Performed By: #### D SBOP #### [facility] [address] [place] [address] TRAMADOL CONFIRM,U >1000 Abnormal Cutoff <50 [facility] Comment on above: Result Comment: Cons istent with use of a drug containing tramadol, such as Ultram. Performed By: #### D SBOP #### [facility] [address] [place] [address] ZOLPIDEM METABOLITE[ZCA] ,U <25 Normal Cutoff <25 [facility] Comment on above: Result Comment: The performance [...] Performed By: #### D SBOP #### [facility] [address] [place] [address] ZOLPIDEM,URINE <25 Normal Cutoff <25 [facility] Comment on above: Performed By: #### D SBOP #### [facility] [address] [place] [address] Today's INRon 08-16-2022 Today's INR 2-3 Anticoagulati on [facility] [employer] Work Phone: Today's INR AMS Anticoagulati on [facility] [employer] Work Phone: HEMOGLOBIN A1Con 08-14-2022 Glucose [Mass/Vol] 143 mg/dL Normal [facility] Comment on above: Performed By: #### H BA1E #### [facility] [address] [place] [address] HbA1c (Bld) [Mass fraction] 6.6 % Abnormal [facility] Comment on above: Result Comment: Diag nosis of Diabetes-Adults Non-Diabetic: < or = 5.6% Increased risk for developing diabetes: 5.7-6.4% Diagnostic of diabetes: > or = 6.5% . Monitoring of Diabetes Age (y) Therapeutic Goal (%) Adults: >18 <7.0 Pediatrics: 13-18 <7.5 7-12 <8.0 0- 6 7.5-8.5 [employer]. Diabetes Care 33(S1), May 2009. Performed By: #### H BA1E #### [facility] [address] [place] [address] PT/INRon 08-14-2022 PT Coag (PPP) [Time] 24.9 s High 9.8 - 13.4 [facility] Comment on above: Performed By: #### H BA1E #### [facility] [address] [place] [address] PT, INR 2.1 High 0.9 - 1.1 [facility] Comment on above: Performed By: #### H BA1E #### [facility] [address] [place] [address] HEMOGLOBIN A1Con 08-13-2022 Lab Specimen Source Normal [facility] Comment on above: Performed By: #### H BA1E #### [facility] [address] [place] [address] Hemoglobin A1Con 08-13-2022 Glucose [Mass/Vol] 143 mg/dL Antico agulation [facility] Work Phone: HbA1c (Bld) [Mass fraction] 6.6 % Abnormal [facility]ticoagulation [facility] Work Phone: Comment on above: SOURCE: Diagnosis of Diabetes-Adults Non-Diabetic: < or = 5.6% Increased risk for developing diabetes: 5.7-6.4% Diagnostic of diabetes: > or = 6.5%. Monitoring of Diabetes Age (y) Therapeutic Goal (%) Adults: >18 <7.0 Pediatrics: 13-18 <7.5 7-12 <8.0 0- 6 7.5-8.5 [employer]. Diabetes Care 33(S1), May 2009. Laboratory - Coagulationon 0 08-13-2022 INR Coag (PPP) [Relative time] 2.1 {INR} above high threshold 0.9 - 1.1 [facility] Work Phone: PT Coag (PPP) [Time] 24.9 s above high threshold 9.8 - 13.4 [facility] Work Phone: Comment on above: SOURCE: OPIATE/OPIOID/BENZO EXTENDED PRESCRIPTION COMPLIANCEon 08-12-2022 AMPHETAMINE SCREEN,U Negative Normal NEGATIVE [facility] Comment on above: Result Comment: CUTO FF LEVEL: 500 NG/ML Cross-reactivity has been reported with high concentrations of the following drugs: buproprion, chloroquine, chlorpromazine, ephedrine, mephentermine, fenfluramine, phentermine, phenylpropanolamine, pseudoephedrine, and propranolol. Performed By: #### D SBOP #### [facility] [address] [place] [address] BARBITURATES SCREEN,U Negative Normal NEGATIVE [facility] Comment on above: Result Comment: CUTO FF LEVEL: 200 NG/ML Performed By: #### D SBOP #### [facility] [address] [place] [address] CANNABINOIDS SCREEN,U Negative Normal NEGATIVE [facility] Comment on above: Result Comment: CUTO FF LEVEL: 50 NG/ML Performed By: #### D SBOP #### [facility] [address] [place] [address] COCAINE METABOLITE SCREEN,U Negative Normal NEGATIVE [facility] Comment on above: Result Comment: CUTO FF LEVEL: 150 NG/ML Performed By: #### D SBOP #### [facility] [address] [place] [id number] Creatinine [Mass/Vol] 56.5 mg/dL Normal [facility] Comment on above: Result Comment: A ur ine creatinine result >= 20 mg/dL is considered valid without suspicion of dilution. Samples with results below this range will automatically reflex to specific gravity testing to verify specimen integrity. Performed By: #### D SBOP #### [facility] [address] [place] [address] DRUG SCREEN COMMENT. SEE BELOW Normal [facility] Comment on above: Result Comment: Drug screen [...] directors. Performed By: #### D SBOP #### [facility] [address] [place] [address] PCP SCREEN,U Negative Normal NEGATIVE [facility] Comment on above: Result Comment: CUTO FF LEVEL: 25 NG/ML Cross-reactivity has been reported with dextromethorphan. Performed By: #### D SBOP #### [facility] [address] [place] [address] Laboratory - Chemistry and C hemistry - challengeon 08-11-2022 Creatinine (Body fld) [Mass/Vol] 56.5 mg/dL [facility] Work Phone: Comment on above: A urine creatinine r esult >= 20 mg/dL is considered valid without suspicion of dilution. Samples with results below this range will automatically reflex to specific gravity testing to verify specimen integrity. Laboratory - Coagulationon 0 08-11-2022 INR Coag (PPP) [Relative time] 4.9 {INR} above high threshold 0.9 - 1.1 [facility] Work Phone: PT Coag (PPP) [Time] 57.9 s Critically abnormal 9.8 - 13.4 [facility] Work Phone: Comment on above: SOURCE: Laboratory - Drug toxicology on 08-11-2022 1-Hydroxymidazolam Confirm (U) [Mass/Vol] <25 Cutoff <25 Anticoagulation Monitoring [facility] Work Phone: 0-Pkmfzedmut-8,5-Dim ethyl-3,3-Diphenylpy rrolidine (EDDP) Confirm (U) [Mass/Vol] <25 Cutoff <25 [facility] Work Phone: Comment on above: The performance [...] (U) [Mass/Vol] <25 Cutoff <25 [facility] Work Phone: 7-Aminoclonazepam Confirm (U) [Mass/Vol] <25 Cutoff <25 Anticoagulation Monitoring [facility] Phone: Alpha hydroxyalprazolam Confirm (U) [Mass/Vol] <25 Cutoff <25 Anticoagulation [facility] Phone: ALPRAZolam Confirm (U) [Mass/Vol] <25 Cutoff <25 Anticoagulation Monitoring [facility] Phone: Amphetamines Screen Ql (U) Negative NEGATIVE Anticoagulation Monitoring [facility] Phone: Comment on above: CUTOFF LEVEL: 500 NG /ML Cross-reactivity has been reported with high concentrations of the following drugs: buproprion, chloroquine, chlorpromazine, ephedrine, mephentermine, fenfluramine, phentermine, phenylpropanolamine, pseudoephedrine, and propranolol. Barbiturates Screen Ql (U) Negative NEGATIVE Anticoagulation Monitoring [facility] Phone: Comment on above: CUTOFF LEVEL: 200 NG /ML Benzoylecgonine Screen Ql (U) Negative NEGATIVE Anticoagulation Monitoring [facility] Phone: Comment on above: CUTOFF LEVEL: 150 NG /ML Cannabinoids Screen Ql (U) Negative NEGATIVE Anticoagulation Monitoring [facility] Phone: Comment on above: CUTOFF LEVEL: 50 NG/ ML chlordiazePOXIDE Confirm (U) [Mass/Vol] <25 Cutoff <25 Anticoagulation Monitoring [facility] Phone: clonazePAM Confirm (U) [Mass/Vol] <25 Cutoff <25 Anticoagulation Monitoring [facility] Phone: Codeine Confirm (U) [Mass/Vol] <50 Cutoff <50 Anticoagulation Monitoring [facility] Phone: diazePAM Confirm (U) [Mass/Vol] <25 Cutoff <25 Anticoagulation Monitoring [facility] Phone: fentaNYL Confirm (U) [Mass/Vol] <2.5 Cutoff<2.5 [...] (U) [Mass/Vol] <2.5 Cutoff<2.5 Anticoagulation [facility] [employer] Phone: Comment on above: The performance hilda [...] [Mass/Vol] >1000 Abnormal Cutoff <50 [facility] Work Phone: Comment on [...] (U) [Mass/Vol] <25 Cutoff <25 [facility] Work Phone: oxyCODONE Confirm (U) [Mass/Vol] <25 Cutoff <25 [facility] Work Phone: oxyMORphone Confirm (U) [Mass/Vol] <25 Cutoff <25 [facility] Work Phone: Comment on [...] Ql (U) Negative NEGATIVE Anti coagulation [facility] Work Phone: Comment on above: CUTOFF LEVEL: 25 NG/ ML Cross-reactivity has been reported with dextromethorphan. Temazepam Confirm (U) [Mass/Vol] <25 Cutoff <25 [facility] Work Phone: Comment on [...] [Mass/Vol] >1000 Abnormal Cutoff <50 [facility] Work Phone: Comment on above: Consistent with use of a drug containing tramadol, such as Ultram. Zolpidem (U) [Mass/Vol] <25 Cutoff <25 [facility]tico[facility] Work Phone: No Panel Informationon 08-11 <25 [...] 57.9 s Critically abnormal 9.8 - 13.4 [facility] Comment on above: Order Comment: BRIAN LOPEZ PGJosé Manuel GOODMAN; MD TRAN , 08/11/2022 21:30 Performed By: #### P TINR #### [facility] [address] [place] [address] PT, INR 4.9 High 0.9 - 1.1 [facility] Comment on above: Order Comment: BRIAN GOODMAN; MD TRAN , 08/11/2022 21:30 Performed By: #### P TINR #### [facility] [address] [place] [address] Lab Specimen Source Normal [facility] Comment on above: Order Comment: ANSR SRVC PGD MD GOODMAN; MD TRAN , 08/11/2022 21:30 Performed By: #### P TINR #### [facility] [address] [place] [address] VASC LAB Carotid Artery Dupl ex Ultrasounon 08-08-2022 [facility] [address] [place] [address] and Vascular Lab Report Carotid Artery Duplex Ultrasound Patient Name: PAU Dawood Physician: [id number] Edwin Joseph MD, [facility] Study Date: 08/08/2022 Referring JAYLON KISER Physician: MRN/PID: [id number] PCP: Accession/Order#: [id number] CC Report to: Date of : 1950 Technologist: Emili Rascon RVT Gender: F Technologist 2: Admission Status: Outpatient Location Performed: [facility] Diagnosis/ICD: I65.23-Occlusion and stenosis of bilateral carotid arteries Procedure/CPT: 82215 Cerebrovascular Carotid Duplex scan complete-[id number] CONCLUSIONS: Right Carotid: Findings are consistent with [...] cm/s Right Left ICA/CCA Ratio 1.2 0.6 [id number] Edwin Joseph MD, RPVI Final Normal [facility] CBC AND DIFFERENTIALon 08-06 % AUTOMATED IMMATURE GRAN 0.1 % Normal 0.0 - 0.9 [facility] Comment on above: Result Comment: Ammy ture Granulocyte Count (IG) includes promyelocytes, myelocytes and metamyelocytes but does not include bands. Percent differential counts (%) should be interpreted in the context of the absolute cell counts (cells/L). Performed By: #### C BCDF #### [facility] [address] [place] [address] Basophils (Bld) [#/Vol] 0.05 10*3/uL Normal 0.00 - 0.10 [facility] Comment on above: Performed By: #### C BCDF #### [facility] [address] [place] [address] Basophils/100 WBC (Bld) 0.7 % Normal 0.0 - 2.0 [facility] Comment on above: Performed By: #### C BCDF #### [facility] [address] [place] [address] Eosinophils (Bld) [#/Vol] 0.20 10*3/uL Normal 0.00 - 0.40 [facility] Comment on above: Performed By: #### C BCDF #### [facility] [address] [place] [address] Eosinophils/100 WBC (Bld) 2.8 % Normal 0.0 - 6.0 [facility] Comment on above: Performed By: #### C BCDF #### [facility] [address] [place] [address] Erythrocyte distribution width (RBC) [Ratio] 14.4 % Normal 11.5 - 14.5 [facility] Comment on above: Performed By: #### C BCDF #### [facility] [address] [place] [address] Hematocrit (Bld) [Volume fraction] 44.4 % Normal 36.0 - 46.0 [facility] Comment on above: Performed By: #### C BCDF #### [facility] [address] [place] [address] Hemoglobin (Bld) [Mass/Vol] 14.3 g/dL Normal 12.0 - 16.0 [facility] Comment on above: Performed By: #### C BCDF #### [facility] [address] [place] [address] Lymphocytes (Bld) [#/Vol] 2.25 10*3/uL Normal 0.80 - 3.00 [facility] Comment on above: Performed By: #### C BCDF #### [facility] [address] [place] [address] Lymphocytes/100 WBC (Bld) 31.4 % Normal 13.0 - 44.0 [facility] Comment on above: Performed By: #### C BCDF #### [facility] [address] [place] [address] MCHC (RBC) [Mass/Vol] 32.2 g/dL Normal 32.0 - 36.0 [facility] Comment on above: Performed By: #### C BCDF #### [facility] [address] [place] [address] MCV (RBC) [Entitic vol] 92 fL Normal 80 - 100 [facility] Comment on above: Performed By: #### C BCDF #### [facility] [address] [place] [address] Monocytes (Bld) [#/Vol] 0.64 10*3/uL Normal 0.05 - 0.80 [facility] Comment on above: Performed By: #### C BCDF #### [facility] [address] [place] [address] Monocytes/100 WBC (Bld) 8.9 % Normal 2.0 - 10.0 [facility] Comment on above: Performed By: #### C BCDF #### [facility] [address] [place] [address] Neutrophils (Bld) [#/Vol] 4.01 10*3/uL Normal 1.60 - 5.50 [facility] Comment on above: Performed By: #### C BCDF #### [facility] [address] [place] [address] Neutrophils/100 WBC (Bld) 56.1 % Normal 40.0 - 80.0 [facility] Comment on above: Performed By: #### C BCDF #### [facility] [address] [place] [address] NUCLEATED RBC 0.0 /100 WBC Normal 0.0-0.0 [facility] Comment on above: Performed By: #### C BCDF #### [facility] [address] [place] [address] Platelets (Bld) [#/Vol] 270 10*3/uL Normal 150 - 450 [facility] Comment on above: Performed By: #### C BCDF #### [facility] [address] [place] [address] RBC 4.85 x10E12/L Normal 4.00 - 5.20 [facility] Comment on above: Performed By: #### C BCDF #### [facility] [address] [place] [address] WBC (Bld) [#/Vol] 7.2 10*3/uL Normal 4.4 - 11.3 [facility] Comment on above: Performed By: #### C BCDF #### [facility] [address] [place] [address] Lab Specimen Source Normal [facility] Comment on above: Performed By: #### C BCDF #### [facility] [address] [place] [address] Performed By: #### P TINR #### [facility] [address] [place] [address] Complete Blood Count + Diffe rentialon 08-06-2022 Basophils/100 WBC (Bld) 0.7 % 0.0 - 2.0 [facility] Work Phone: Erythrocyte distribution width (RBC) [Ratio] 14.4 % See Below [facility] Work Phone: Comment on above: Reference Range: 11. 5 - 14.5 Hematocrit (Bld) [Volume fraction] 44.4 % See Below [facility] Work Phone: Comment on above: Reference Range: 36. 0 - 46.0 Hemoglobin (Bld) [Mass/Vol] 14.3 g/dL See Below [facility] Work Phone: Comment on above: Reference Range: 12. 0 - 16.0 Lymphocytes/100 WBC (Bld) 31.4 % See Below [facility] Work Phone: Comment on above: Reference Range: 13. 0 - 44.0 MCHC (RBC) [Mass/Vol] 32.2 g/dL See Below [facility] Work Phone: Comment on above: Reference Range: 32. 0 - 36.0 MCV (RBC) [Entitic vol] 92 fL 80 - 100 [facility] Work Phone: Monocytes/100 WBC (Bld) 8.9 % 2.0 - 10.0 [facility] Work Phone: Neutrophils/100 WBC (Bld) 56.1 % See Below [facility] Work Phone: Comment on above: Reference Range: 40. 0 - 80.0 Platelets (Bld) [#/Vol] 270 10*3/uL 150 - 450 [facility] Work Phone: RBC (Bld) [#/Vol] 4.85 {x10E12/L} See Below [facility] Work Phone: Comment on above: Reference Range: 4.0 0 - 5.20 WBC (Bld) [#/Vol] 7.2 10*3/uL 4.4 - 11.3 [facility] Work Phone: Comment on above: SOURCE: Complete Blood Count + Differential 0.05 {x10E9/L} See Below [facility] Work Phone: Comment on above: Reference Range: 0.0 0 - 0.10 Complete Blood Count + Differential 0.20 {x10E9/L} See Below [facility] Work Phone: Comment on above: Reference Range: 0.0 0 - 0.40 Complete Blood Count + Differential 0.64 {x10E9/L} See Below [facility] Work Phone: Comment on above: Reference Range: 0.0 5 - 0.80 Complete Blood Count + Differential 2.25 {x10E9/L} See Below [facility] Work Phone: Comment on above: Reference Range: 0.8 0 - 3.00 Complete Blood Count + Differential 4.01 {x10E9/L} See Below [facility] Work Phone: Comment on above: Reference Range: 1.6 0 - 5.50 Complete Blood Count + Differential 2.8 % 0.0 - 6.0 [facility] Work Phone: Complete Blood Count + Differential 0.1 % 0.0 - 0.9 [facility] Work Phone: Comment on above: Immature Granulocyte Count (IG) includes promyelocytes, myelocytes and metamyelocytes but does not include bands. Percent differential counts (%) should be interpreted in the context of the absolute cell counts (cells/L). Complete Blood Count + Differential 0.0 {/100_WBC} 0.0-0.0 [facility] Work Phone: Laboratory - Coagulationon 0 08-06-2022 INR Coag (PPP) [Relative time] 1.6 {INR} above high threshold 0.9 - 1.1 [facility] Work Phone: PT Coag (PPP) [Time] 19.1 s above high threshold 9.8 - 13.4 [facility] Work Phone: Comment on above: SOURCE: PT/INRon 08-06-2022 PT Coag (PPP) [Time] 19.1 s High 9.8 - 13.4 [facility] Comment on above: Performed By: #### P TINR #### [facility] [address] [place] [address] PT, INR 1.6 High 0.9 - 1.1 [facility] Comment on above: Performed By: #### P TINR #### [facility] [address] [place] [address] Office Visiton 06-29-2022 Follow-up visit Diagnoses/Problems Asthma [...] intensity statin-has not tolerated high intensity 09/2021 LDL=50,JN=087 Hypertension (401.9) (I10) BP OK on current [...] Jul 2019 (more content not included)... Normal [facility] Chart Updateon 06-26-2022 Chart Update Orders Generalized [...] Jun 26 2022 10:09AM EST (Author) Normal [facility] BONE DENSITY, DEXA 1 OR MORE SITES: [...] Electronically signed by: YOVANY SARMIENTO MD Normal [facility] Mamm - Screening Mammogram w / Tomosynthesison 06-06-2022 MG Breast Screening FINAL REPORT Interpreted by: JENNA SU LOUISE, MD 06/08/22 14:33 Patient Name: PUA MUÑOZ STUDY: DIGITAL MAMM SCREENING W/ JOHN; 06/06/2022 1:35 pm ACCESSION NUMBER(S): [id number] ORDERING CLINICIAN: RONIT DOAN INDICATION: Normal [facility]-Internal [...] intensity statin-has not tolerated high intensity 09/2021 LDL=50,HS=886 Hypertension (401.9) (I10) BP OK on current meds Weight loss/Salt restriction Hypokalemia (276.8) (E87.6) IBS (irritable bowel syndrome) (564.1) (K58.9) Impaired ambulation (719.7) (R26.2) Impaired fasting glucose (790.21) (R73.01) Lumbar strain, initial encounter (847.2) (S39.012A) Medicare annual wellness visit, subsequent (V70.0) (Z00.00) MGUS (more content not included)... Normal [facility] PHQ-2 VITALSon 05-26-2022 Adult depression screening assessment [...] a mile she visits family, goes [place] a lot *Active Problems Acute bronchitis (466.0) [...] intensity statin-has not tolerated high intensity 09/2021 LDL=50,BF=563 Hypertension (401.9) (I10) BP OK on current [...] sustained palpitati (more content not included)... Normal [facility] HEMOGLOBIN A1Con 04-07-2022 Glucose [Mass/Vol] 143 mg/dL Normal [facility] Comment on above: Performed By: #### H BA1E #### [facility] [address] [place] [address] HbA1c (Bld) [Mass fraction] 6.6 % Abnormal [facility] Comment on above: Result Comment: Diag nosis of Diabetes-Adults Non-Diabetic: < or = 5.6% Increased risk for developing diabetes: 5.7-6.4% Diagnostic of diabetes: > or = 6.5% . Monitoring of Diabetes Age (y) Therapeutic Goal (%) Adults: >18 <7.0 Pediatrics: 13-18 <7.5 7-12 <8.0 0- 6 7.5-8.5 [employer]. Diabetes Care 33(S1), May 2009. Performed By: #### H BA1E #### [facility] [address] [place] [address] Hemoglobin A1Con 04-07-2022 Glucose [Mass/Vol] 143 mg/dL [facility] Work Phone: HbA1c (Bld) [Mass fraction] 6.6 % Abnormal [facility] Work Phone: Comment on above: Diagnosis of Diabete s-Adults Non-Diabetic: < or = 5.6% Increased risk for developing diabetes: 5.7-6.4% Diagnostic of diabetes: > or = 6.5%. Monitoring of Diabetes Age (y) Therapeutic Goal (%) Adults: >18 <7.0 Pediatrics: 13-18 <7.5 7-12 <8.0 0- 6 7.5-8.5 [employer]. Diabetes Care 33(S1), May 2009. Laboratory - Chemistry and C hemistry - challengeon 04-07-2022 TSH Qn 2.01 m[IU]/L See Below [facility] Work Phone: Comment on above: Reference Range: 0.4 4 - 3.98 TSH testing is performed using different testing methodology at [facility] than at other [facility]. Direct result comparisons should only be made within the same method. TSH WITH REFLEX TO FREE T4 I F ABNORMALon 04-07-2022 TSH Qn 2.01 m[IU]/L Normal 0.44 - 3.98 [facility] Comment on above: Result Comment: TSH testing is performed using different testing methodology at [facility] than at other [facility]. Direct result comparisons should only be made within the same method. Performed By: #### H BA1E #### [facility] [address] [place] [address] Office Visit (Cardiology)on 03-21-2022 Follow-up visit Diagnoses/Problems [...] intensity statin-has not tolerated high intensity 09/2021 LDL=50,GB=426 Hypertension (401.9) (I10) BP OK on current [...] intensity statin-has not tolerated high intensity 09/2021 LDL=50,WK=097 Hypertension (401.9) (I10) BP OK on current [...] patch angioplas (more content not included)... Normal [facility] Tobacco Screening.on 022 Tobacco use status CPHS [...] intensity statin-has not tolerated high intensity 09/2021 LDL=50,UX=438 Hypertension (401.9) (I10) SBP borderline Weight loss/Salt [...] [Mass/Vol] 126 mg/dL High 74 - 99 [facility] Comment on above: Performed By: #### G IRVING #### [facility] [address] [place] [address] Laboratory - Chemistry and C hemistry - challengeon 03-01-2022 Glucose [Mass/Vol] 126 mg/dL above high threshold 74 - 99 [facility] MAC[facility] 100 DO Work Phone: Operative Reports - [facility] 03-01-2022 Operative Reports - [facility] SURGEON: Yg López MD PREOPERATIVE DIAGNOSIS: Right middle finger trigger digit. POSTOPERATIVE DIAGNOSIS: Right middle finger trigger digit. PROCEDURE: Right middle finger A1 linn release. CHARACTER ARTIST: NGUYỄN Hwang ANESTHESIA: Local with intravenous sedation. [...] Yg López MD EST EST DICTATION NUMBER: [id number] INTERNAL JOB NUMBER: [id number] Electronic Signatures: Yg López) (Signed on 02-Mar-2022 11:51) Authored Unsigned, Draft (SYS GENERATED) (Entered on 02-Mar-2022 10:04) Entered Last Updated: 02-Mar-2022 11:51 by Yg López) [facility] Order Reconciliationon 03-01 Order Reconciliation Page 1 [...] Patient Instru (more content not included)... Normal [facility] Patient Profile - Preop v3on 02-28-2022 Patient Profile - Preop v3 Patient Profile - Preop: Initial Info: Patient DemographicsName: PAU MUÑOZ Date: 1950 Address: [address] [place] [address] Date/Time [id number] 12:00 Primary Phone [id number] Call Attemptedattempt 1 Instructions Giventime to arrive [...] Health: Weight in kg85 kilogram(s) Weight in akn929.3 pound(s) Height in feet5 feet Height in inches0 inch(es) Height in cm152.4 centimeter(s) BMI (kg/m2)36.597 square meter Patient or Family Member Reaction to Anesthesiano previous reaction Blood Avoidance/Restrictions none Previous Transfusion Reactionnot applicable Health Mgmt: Symptoms/Conditions Managed at [facility] H&P Barriers to Managing Healthnone Relationship/Environ: Lives Withalone Living Arrangementshouse Resource/Environmental Concernsnone Anticipated Transition [place] [facility] Anticipated at Transition[facility] Tobacco Use: Tobacco [...] 01-Mar-2022 08:31 by Loren Arora (CRISTAL) Normal [facility] Electrocardiogram 12 Leadon 02-23-2022 Electrocardiogram 12 Lead Ventricular Rate 74 Atrial Rate 74 QRS Duration 150 Q-T Interval 430 QTC Calculation(Bazett) 477 R Egan -50 T Egan 108 QRS Count 13 Q Onset 196 T Offset 411 QTC Fredericia 461 Diagnosis Class Abnormal Diagnosis Ventricular-paced rhythm with occasional premature ventricular complexes Abnormal ECG When compared with ECG of 28-JUL-2021 13:26, premature ventricular complexes are now present Vent. rate has increased BY 12 BPM Confirmed by Zion Zamora ([id number]) on 02/24/2022 4:15:38 PM Normal [facility] HGB + HCTon 02-23-2022 Hematocrit (Bld) [Volume fraction] 44.3 % Normal 36.0 - 46.0 [facility] Comment on above: Performed By: #### H H #### [facility] [address] [place] [address] Hemoglobin (Bld) [Mass/Vol] 14.1 g/dL Normal 12.0 - 16.0 [facility] Comment on above: Performed By: #### H H #### [facility] [address] [place] [address] Laboratory - Hematology and Cell countson 02-23-2022 Hematocrit (Bld) [Volume fraction] 44.3 % See Below [facility] MAC4 100 DO Work Phone: Comment on above: Reference Range: 36. 0 - 46.0 Hemoglobin (Bld) [Mass/Vol] 14.1 g/dL See Below [facility] MAC4 100 DO Work Phone: Comment on above: Reference Range: 12. 0 - 16.0 No Panel Informationon 02-23 https://[facility] B0 1:[email or web address]/[email or web address] [email or web address]?RetrieveTestB yDateTime?PatientID=[id number]&Date= 2&Time=12%3a59%3a36%3a 00&TestType=ECG&Site=1 0&OutputType=PDF&Ext=P DF [facility] MAC4 100 DO Work Phone: Ventricular-paced rhythm with occasional premature ventricular complexes [facility]4 100 DO Work Phone: Abnormal [facility]4 100 DO Work Phone: [phone] [facility] MAC4 100 DO Work Phone: [phone] [facility] MAC4 100 DO Work Phone: 196 1 [facility] MAC4 100 DO Work Phone: 13 1 [facility] MAC4 100 DO Work Phone: 108 1 [facility] MAC4 100 DO Work Phone: -50 1 [facility] MAC4 100 DO Work Phone: 477 1 [facility] MAC4 100 DO Work Phone: 430 1 [facility] MAC4 100 DO Work Phone: 150 1 [facility] MAC4 100 DO Work Phone: 74 1 [facility] MAC4 100 DO Work Phone: Blood Pressure Cuff Sizeon 1 Blood Pressure Cuff Size Adult [facility] Work Phone: Office Visit (Vascular Surge [...] intensity statin-has not tolerated high intensity 09/2021 LDL=50,JW=545 Hypertension (401.9) (I10) SBP borderline Weight loss/Salt [...] left ind (more content not included)... Normal [place] Office Visit (Cardiology)on 02-07-2022 Follow-up visit Diagnoses/Problems [...] intensity statin-has not tolerated high intensity 09/2021 LDL=50,IW=744 Hypertension (401.9) (I10) SBP borderline Weight loss/Salt [...] with removal (more content not included)... Normal [place] Tobacco Screening.on 022 Fall risk assessment a) No falls within the last year [facility] Work Phone: Tobacco use status CPHS b) No -[facility] Work Phone: VAS LAB Carotid Artery Dupl ex Ultrasounon 02-01-2022 VAS LAB Carotid Artery Duplex [place] [address] and Vascular Lab Report Carotid Artery Duplex Ultrasound Patient Name: PAU MUÑOZ Reading Physician: [id number] Serena Pascal MD Study Date: 02/01/2022 Referring Physician: JAYLON KISER MRN/PID: [id number] PCP: Accession/Order#: [id number] CC Report to: Date of : 1950 Technologist: June SILVA Gender: F Technologist 2: Admission Status: Outpatient Location Performed: [facility] Diagnosis/ICD: I65.23-Occlusion and stenosis of bilateral carotid arteries Procedure/CPT: 43184 Cerebrovascular Carotid Duplex scan complete-[id number] Patient History Carotid surgery. LCEA. CONCLUSIONS: Right [...] cm/s Right Left ICA/CCA Ratio 0.9 1.1 [id number] Serena Pascal MD Final Normal [facility] VASC LAB Carotid Artery Dupl ex Ultrasoundon 02-01-2022 US.doppler Carotid arteries Please click on the link to view the study images Normal [facility] Work Phone: Hemoglobin A1Con 01-07-2022 Glucose [Mass/Vol] [...] 13-18 <7.5 7-12 <8.0 0- 6 7.5-8.5 [employer]. Diabetes Care 33(S1), May 2009. Tobacco Screening.on Adult depression screening assessment No [facility] Work Phone: Fall risk assessment a) No falls within the last year [facility] Work Phone: Tobacco use status CPHS b) No [facility] Work Phone: Tobacco Screening.on Tobacco use status CPHS b) No QG-Xojeremwuy-Rv rma Work Phone: Tobacco Screening.on 022 Fall risk assessment a) No falls within the last year KX-Yrlzunhffn-Uf rma Work Phone: Tobacco use status CPHS b) No BI-Sgszfmvfle-Ty rma Work Phone: Hemoglobin A1Con 09-16-2021 Glucose [Mass/Vol] 134 mg/dL -Car diology-Pa rma Work Phone: HbA1c (Bld) [Mass fraction] 6.3 % Abnormal YG-Nyfevunzwr-Di rma Work Phone: Comment on above: Diagnosis of Diabete s-Adults Non-Diabetic: < or = 5.6% Increased risk for developing diabetes: 5.7-6.4% Diagnostic of diabetes: > or = 6.5%. Monitoring of Diabetes Age (y) Therapeutic Goal (%) Adults: >18 <7.0 Pediatrics: 13-18 <7.5 7-12 <8.0 0- 6 7.5-8.5 [employer]. Diabetes Care 33(S1), May 2009. Laboratory - Chemistry and C hemistry - challengeon 09-16-2021 Albumin BCP dye [Mass/Vol] 4.0 g/dL 3.4 - 5.0 DA-Aqrijawspd-Zs rma Work Phone: ALP [Catalytic activity/Vol] 84 U/L 33 - 136 VY-Gksobzszmq-Su rma Work Phone: ALT With P-5'-P [Catalytic activity/Vol] 13 U/L 7 - 45 TL-Mstewylmuy-Nv rma Work Phone: Comment on above: Patients treated wit h Sulfasalazine may generate falsely decreased results for ALT. Anion gap [Moles/Vol] 13 mmol/L 10 - 20 IL-Mkpgcbnwdq-Zu rma Work Phone: AST With P-5'-P [Catalytic activity/Vol] 18 U/L 9 - 39 AM-Ljbsmqlsga-Bc rma Work Phone: Bilirubin [Mass/Vol] 0.4 mg/dL 0.0 - 1.2 MP-C ardiology-Pa rma Work Phone: Calcium [Mass/Vol] 9.6 mg/dL 8.6 - 10.6 MP-Car diology-Pa rma Work Phone: Chloride [Moles/Vol] 101 mmol/L 98 - 107 MP-C ardiology-Pa rma Work Phone: CO2 [Moles/Vol] 28 mmol/L 21 - 32 MP-Cardio logy-Pa rma Work Phone: Creatinine [Mass/Vol] 0.88 mg/dL See Below SS-Kppphzugwd-Bb rma Work Phone: Comment on above: Reference Range: 0.5 0 - 1.05 Glucose [Mass/Vol] 141 mg/dL above high threshold 74 - 99 XT-Nyrqpmtqno-Fp rma Work Phone: Potassium [Moles/Vol] 4.2 mmol/L 3.5 - 5.3 LH-Khzraivilr-Ti rma Work Phone: Protein [Mass/Vol] 7.4 g/dL 6.4 - 8.2 MP-Car diology-Pa rma Work Phone: Sodium [Moles/Vol] 138 mmol/L 136 - 145 MP-Car diology-Pa rma Work Phone: Urea nitrogen [Mass/Vol] 22 mg/dL 6 - 23 GX-Xyrtphsecs-Cy rma Work Phone: Lipid Panelon 09-16-2021 Cholesterol [Mass/Vol] 162 mg/dL 0 - 199 AV-Nqrinmfehm-Ve rma Work Phone: Comment on above: . [...] dosing. Cholesterol in HDL [Mass/Vol] 67.7 mg/dL ZS-Llhsyeqpfs-Lp [employer] Work Phone: Comment on above: . AGE VERY LOW LOW N ORMAL HIGH 0-19 Y < 35 < 40 40-45 ---- 20- 24 Y ---- < 40 >45 ---- >24 Y ---- < 40 40-60 >60. Cholesterol in LDL [Mass/Vol] 50 mg/dL 0 - 99 ST-Ytueausgfv-Cf [employer] Work Phone: Comment on above: . NEAR BORD AGE MARRY RABLE OPTIMAL HIGH HIGH VERY HIGH 0-19 Y 0 - 109 --- 110-129 >/= 130 ---- 20-24 Y 0 - 119 --- 120-159 >/= 160 ---- >24 Y 0 - 99 100-129 130-159 160-189 >/=190. Cholesterol non HDL [Mass/Vol] 94 mg/dL KJ-Ffmohbtoxh-Ha [employer] Work Phone: Comment on above: AGE DESIRABLE BORDER LINE HIGH HIGH VERY HIGH 0-19 Y 0 - 119 120 - 144 >/= 145 >/= 160 20-24 Y 0 - 149 150 - 189 >/= 190 ---- >24 Y 30 MG/DL ABOVE LDL CHOLESTEROL GOAL. Cholesterol.total/Ch olesterol in HDL [Mass ratio] 2.4 {ratio} UO-Nxzgrndoyz-Dn [employer] Work Phone: Comment on above: REF VALUESDESIRABLE < 3.4HIGH RISK > 5.0 Triglyceride [Mass/Vol] 221 mg/dL above high threshold 0 - 149 DS-Hjovephxmi-Tm [employer] Work Phone: Comment on above: . AGE [...] mg/dL above high threshold 0 - 40 IC-Fxqpfndevc-Ni rma Work Phone: No Panel Informationon 09-16 70 {mL/min/1.73m2} >90 MP-Car diology-Pa rma Work Phone: Comment on above: CALCULATIONS OF GALILEA MATED GFR ARE PERFORMED USING THE 2020 CKD-EPI STUDY REFIT EQUATION WITHOUT THE RACE VARIABLE FOR THE IDMS-TRACEABLE CREATININE METHODS.https://jasn.asnjournals.org/content//ASN .5321595713 Laboratory - Hematology and Cell countson 08-01-2021 Erythrocyte distribution width (RBC) [Ratio] 15.8 % above high threshold See Below [facility] Work Phone: Comment on above: Reference Range: 11. 5 - 14.5 Hematocrit (Bld) [Volume fraction] 37.7 % See Below [facility] Work Phone: Comment on above: Reference Range: 36. 0 - 46.0 Hemoglobin (Bld) [Mass/Vol] 12.1 g/dL See Below [facility] Work Phone: Comment on above: Reference Range: 12. 0 - 16.0 MCHC (RBC) [Mass/Vol] 32.1 g/dL See Below [facility] Work Phone: Comment on above: Reference Range: 32. 0 - 36.0 MCV (RBC) [Entitic vol] 89 fL 80 - 100 [facility] Work Phone: Platelets (Bld) [#/Vol] 241 10*3/uL 150 - 450 [facility] Work Phone: RBC (Bld) [#/Vol] 4.23 {x10E12/L} See Below [facility] Work Phone: Comment on above: Reference Range: 4.0 0 - 5.20 WBC (Bld) [#/Vol] 18.1 10*3/uL above high threshold 4.4 - 11.3 [facility] Work Phone: Magnesium, Serumon 2 Magnesium [Mass/Vol] 1.94 mg/dL See Below [facility] Work Phone: Comment on above: Reference Range: 1.6 0 - 2.40 No Panel Informationon 08-01 0.0 {/100_WBC} 0.0 - 0.0 [facility] Work Phone: Renal Function Panelon 08-01 Albumin BCP dye [Mass/Vol] 3.6 g/dL 3.4 - 5.0 [facility] Work Phone: Anion gap [Moles/Vol] 9 mmol/L below low threshold 10 - 20 [facility] Work Phone: Calcium [Mass/Vol] 9.0 mg/dL 8.6 - 10.3 [facility] Work Phone: Chloride [Moles/Vol] 101 mmol/L 98 - 107 MP[facility] Work Phone: CO2 [Moles/Vol] 30 mmol/L 21 - 32 [facility] Work Phone: Creatinine [Mass/Vol] 0.76 mg/dL See Below [facility] Work Phone: Comment on above: Reference Range: 0.5 0 - 1.05 Glucose [Mass/Vol] 131 mg/dL above high threshold 74 - 99 [facility] Work Phone: Phosphate [Mass/Vol] 3.4 mg/dL 2.5 - 4.9 [facility] Work Phone: Comment on above: The performance hilda acteristics of phosphorus testing in heparinized plasma have been validated by the individual laboratory site where testing is performed. Testing on heparinized plasma is not approved by the FDA; however, such approval is not necessary. Potassium [Moles/Vol] 4.2 mmol/L 3.5 - 5.3 [facility] Work Phone: Sodium [Moles/Vol] 136 mmol/L 136 - 145 [facility] Work Phone: Urea nitrogen [Mass/Vol] 21 mg/dL 6 - 23 [facility] Work Phone: Renal Function Panel 84 {mL/min/1.73m2} >90 [facility] Work Phone: Comment on above: CALCULATIONS OF GALILEA MATED GFR ARE PERFORMED USING THE 2020 CKD-EPI STUDY REFIT EQUATION WITHOUT THE RACE VARIABLE FOR THE IDMS-TRACEABLE CREATININE METHODS.https://jasn.asnjournals.org/content/early/ASN .3232966131 Laboratory - Hematology and Cell countson 07-31-2021 Erythrocyte distribution width (RBC) [Ratio] 15.7 % above high threshold See Below [facility] Work Phone: Comment on above: Reference Range: 11. 5 - 14.5 Hematocrit (Bld) [Volume fraction] 37.9 % See Below [facility] Work Phone: Comment on above: Reference Range: 36. 0 - 46.0 Hemoglobin (Bld) [Mass/Vol] 12.1 g/dL See Below [facility] Work Phone: Comment on above: Reference Range: 12. 0 - 16.0 MCHC (RBC) [Mass/Vol] 31.9 g/dL below low threshold See Below [facility] Work Phone: Comment on above: Reference Range: 32. 0 - 36.0 MCV (RBC) [Entitic vol] 90 fL 80 - 100 [facility] Work Phone: Platelets (Bld) [#/Vol] 257 10*3/uL 150 - 450 [facility] Work Phone: RBC (Bld) [#/Vol] 4.20 {x10E12/L} See Below [facility] Work Phone: Comment on above: Reference Range: 4.0 0 - 5.20 WBC (Bld) [#/Vol] 12.3 10*3/uL above high threshold 4.4 - 11.3 [facility] Work Phone: Magnesium, Serumon 2 Magnesium [Mass/Vol] 1.90 mg/dL See Below [facility] Work Phone: Comment on above: Reference Range: 1.6 0 - 2.40 No Panel Informationon 07-31 0.0 {/100_WBC} 0.0 - 0.0 [facility] Work Phone: Renal Function Panelon 07-31 Albumin BCP dye [Mass/Vol] 3.5 g/dL 3.4 - 5.0 [facility] Work Phone: Anion gap [Moles/Vol] 12 mmol/L 10 - 20 [facility] Work Phone: Calcium [Mass/Vol] 8.7 mg/dL 8.6 - 10.3 [facility] Work Phone: Chloride [Moles/Vol] 102 mmol/L 98 - 107 [facility] Work Phone: CO2 [Moles/Vol] 25 mmol/L 21 - 32 [facility] Work Phone: Creatinine [Mass/Vol] 0.79 mg/dL See Below [facility] Work Phone: Comment on above: Reference Range: 0.5 0 - 1.05 Glucose [Mass/Vol] 165 mg/dL above high threshold 74 - 99 [facility] Work Phone: Phosphate [Mass/Vol] 3.4 mg/dL 2.5 - 4.9 [facility] Work Phone: Comment on above: The performance hilda acteristics of phosphorus testing in heparinized plasma have been validated by the individual laboratory site where testing is performed. Testing on heparinized plasma is not approved by the FDA; however, such approval is not necessary. Potassium [Moles/Vol] 4.3 mmol/L 3.5 - 5.3 [facility] Work Phone: Sodium [Moles/Vol] 135 mmol/L below low threshold 136 - 145 [facility] Work Phone: Urea nitrogen [Mass/Vol] 16 mg/dL 6 - 23 [facility] Work Phone: Renal Function Panel 80 {mL/min/1.73m2} >90 [facility] Work Phone: Comment on above: CALCULATIONS OF GALILEA MATED GFR ARE PERFORMED USING THE 2020 CKD-EPI STUDY REFIT EQUATION WITHOUT THE RACE VARIABLE FOR THE IDMS-TRACEABLE CREATININE METHODS.https://jasn.asnjournals.org/content/early/ASN .7765365057 Radiologyon 07-30-2021 XR Chest Single view Normal [facility] Work Phone: Complete Blood Count + Diffe rentialon 07-28-2021 Basophils/100 WBC (Bld) 0.6 % 0.0 - 2.0 [facility] Work Phone: Erythrocyte distribution width (RBC) [Ratio] 15.4 % above high threshold See Below [facility] Work Phone: Comment on above: Reference Range: 11. 5 - 14.5 Hematocrit (Bld) [Volume fraction] 46.3 % above high threshold See Below [facility] Work Phone: Comment on above: Reference Range: 36. 0 - 46.0 Hemoglobin (Bld) [Mass/Vol] 14.9 g/dL See Below [facility] Work Phone: Comment on above: Reference Range: 12. 0 - 16.0 Lymphocytes/100 WBC (Bld) 25.7 % See Below [facility] Work Phone: Comment on above: Reference Range: 13. 0 - 44.0 MCHC (RBC) [Mass/Vol] 32.2 g/dL See Below [facility] Work Phone: Comment on above: Reference Range: 32. 0 - 36.0 MCV (RBC) [Entitic vol] 88 fL 80 - 100 [facility] 202 Work Phone: Monocytes/100 WBC (Bld) 11.6 % 2.0 - 10.0 [facility] Work Phone: Neutrophils/100 WBC (Bld) 59.9 % See Below [facility] Work Phone: Comment on above: Reference Range: 40. 0 - 80.0 Platelets (Bld) [#/Vol] 307 10*3/uL 150 - 450 [facility] Work Phone: RBC (Bld) [#/Vol] 5.24 {x10E12/L} above high threshold See Below [facility] 202 Work Phone: Comment on above: Reference Range: 4.0 0 - 5.20 WBC (Bld) [#/Vol] 10.3 10*3/uL 4.4 - 11.3 [facility] 202 Work Phone: Complete Blood Count + Differential 0.06 {x10E9/L} See Below [facility] Work Phone: Comment on above: Reference Range: 0.0 0 - 0.10 Complete Blood Count + Differential 0.19 {x10E9/L} See Below [facility] Work Phone: Comment on above: Reference Range: 0.0 0 - 0.40 Complete Blood Count + Differential 1.20 {x10E9/L} above high threshold See Below [facility] Work Phone: Comment on above: Reference Range: 0.0 5 - 0.80 Complete Blood Count + Differential 2.65 {x10E9/L} See Below [facility] Work Phone: Comment on above: Reference Range: 0.8 0 - 3.00 Complete Blood Count + Differential 6.19 {x10E9/L} above high threshold See Below [facility] Work Phone: Comment on above: Reference Range: 1.6 0 - 5.50 Complete Blood Count + Differential 1.8 % 0.0 - 6.0 [facility] Work Phone: Complete Blood Count + Differential 0.4 % 0.0 - 0.9 [facility] Work Phone: Comment on above: Immature Granulocyte Count (IG) includes promyelocytes, myelocytes and metamyelocytes but does not include bands. Percent differential counts (%) should be interpreted in the context of the absolute cell counts (cells/L). Complete Blood Count + Differential 0.0 {/100_WBC} 0.0 - 0.0 [facility] Work Phone: Cult, Urineon 07-28-2021 Bacteria identified Cx Nom (U) [facility] Work Phone: Laboratory - Blood bankon ABO group Nom (Bld) [place] [facility] Work Phone: Blood group antibody screen Ql Negative [facility] Work Phone: Rh immune globulin screen (Bld) [Interp] Positive [facility] Work Phone: Laboratory - Chemistry and C hemistry - challengeon 07-28-2021 Albumin BCP dye [Mass/Vol] 4.3 g/dL 3.4 - 5.0 [facility] Work Phone: ALP [Catalytic activity/Vol] 83 U/L 33 - 136 [facility] Work Phone: ALT With P-5'-P [Catalytic activity/Vol] 14 U/L 7 - 45 [facility] Work Phone: Comment on above: Patients treated wit h Sulfasalazine may generate falsely decreased results for ALT. Anion gap [Moles/Vol] 13 mmol/L 10 - 20 [facility] Work Phone: AST With P-5'-P [Catalytic activity/Vol] 18 U/L 9 - 39 [facility] Work Phone: Bilirubin [Mass/Vol] 0.4 mg/dL 0.0 - 1.2 [facility] Work Phone: Calcium [Mass/Vol] 9.4 mg/dL 8.6 - 10.3 [facility] Work Phone: Chloride [Moles/Vol] 98 mmol/L 98 - 107 [facility] Work Phone: CO2 [Moles/Vol] 29 mmol/L 21 - 32 [facility] Work Phone: Creatinine [Mass/Vol] 0.88 mg/dL See Below [facility] Work Phone: Comment on above: Reference Range: 0.5 0 - 1.05 Glucose [Mass/Vol] 142 mg/dL above high threshold 74 - 99 [facility] Work Phone: Potassium [Moles/Vol] 4.1 mmol/L 3.5 - 5.3 [facility] Work Phone: Protein [Mass/Vol] 7.8 g/dL 6.4 - 8.2 [facility] Work Phone: Sodium [Moles/Vol] 136 mmol/L 136 - 145 [facility] Work Phone: Urea nitrogen [Mass/Vol] 19 mg/dL 6 - 23 [facility] Work Phone: Laboratory - Coagulationon 0 3-23-2022 INR Coag (PPP) [Relative time] 1.2 {INR} above high threshold 0.9 - 1.1 [facility] Work Phone: PT Coag (PPP) [Time] 13.7 s above high threshold 9.8 - 13.4 [facility] Work Phone: Comment on above: Note new reference patricio chicas as of 04/06/2021 at 10:00am. No Panel Informationon 07-28 [email or web address] 1: [email or web address]/[email or web address]?RetrieveTestByD ateTime?TeiewmrMH=[email or web address] 13211&Date=28-07-2021& Time=13%3a26%3a48%3a00 &TestType=ECG&Site=10& OutputType=PDF&Ext=PDF [facility] Work Phone: Electronic ventricul ar pacemaker [facility] Work Phone: Abnormal [facility] Work Phone: [phone] [facility] Work Phone: [phone] [facility] Work Phone: 209 1 [facility] Work Phone: 10 1 [facility] Work Phone: 104 1 [facility] Work Phone: -31 1 [facility] Work Phone: 475 1 [facility] Work Phone: 468 1 [facility] Work Phone: 172 1 [facility] Work Phone: 65 1 [facility] Work Phone: 62 1 [facility] Work Phone: 70 {mL/min/1.73m2} >90 [facility] munity [facility] Work Phone: Comment on above: CALCULATIONS OF GALILEA MATED GFR ARE PERFORMED USING THE 2020 CKD-EPI STUDY REFIT EQUATION WITHOUT THE RACE VARIABLE FOR THE IDMS-TRACEABLE CREATININE METHODS.https://jasn.asnjournals.org/content/early//ASN .6873412689 Urinalysison 07-28-2021 Color (U) YELLOW See Below [facility] Work Phone: Comment on above: Reference Range: STR AW,YELLOW Glucose Ql (U) Negative NEGATIVE [facility] Work Phone: Ketones Ql (U) Negative NEGATIVE [facility] Work Phone: Leukocyte esterase Test strip Ql (U) SMALL (1+) Abnormal NEGATIVE [facility] Work Phone: pH (U) 5.0 [pH] 5.0 - 8.0 [facility] Work Phone: Protein (U) [Mass/Vol] Negative NEGATIVE [facility] Work Phone: RBC (U) [#/Vol] Negative NEGATIVE [facility] Work Phone: Specific gravity (U) [Rel density] 1.013 1 See Below [facility] Work Phone: Comment on above: Reference Range: 1.0 05 - 1.035 Urinalysis Negative NEGATIVE [facility] Work Phone: Urinalysis <2.0 0.0 - 1.9 [facility] Work Phone: Urinalysis CLEAR CLEAR [facility] Work Phone: Urinalysis, Microscopicon Urinalysis, Microscopic 1+ [facility] Work Phone: Urinalysis, Microscopic 1 {/HPF} 0-5 [facility] Work Phone: Blood Pressure Cuff Sizeon 0 06-30-2021 Tobacco use status CPHS b) No KE-Ofspcvlnsc-Yk lakhwinder 140 [place] Work Phone: Blood Pressure Cuff Size Adult GB-Azdprtofzc-Jv lakhwinder [address] [place] Work Phone: INFLUENZA A/B, COVID 2019 PC R,SYMPTOMATICon 04-17-2021 Date and time of symptom onset [id number] [facility] Work Phone: INFLUENZA A/B, [...] make patient management decisions.Fact sheet for providers: https://www.fda.gov/media/646190/downloadFact sheet for patients: https://www.fda.gov/media/036449/downloadThis test has received FDA Emergency Use Authorization (EUA) and has been verified by ([facility]). This test is only authorized for the duration of time that circumstances exist to justify the authorization of the emergency use of in vitro diagnostic tests for the detection of SARS-CoV-2 virus and/or diagnosis of COVID-19 infection under section 564(b)(1) of the Act, 21 U.S.C. 360bbb-3(b)(1), unless the authorization is terminated or revoked sooner. is certified under CLIA-88 as qualified to perform high complexity testing. Testing is performed in the [facility] laboratories located at [address] [place] [address]. Reference Range: Not Detected Respiratory virus testing is performed routinely by PCR for Influenza A/B and RSV. If Influenza and RSV PCR are negative, testing for parainfluenza 1,2,3 viruses and adenovirus is routinely performed for oncology inpatients and intensive care unit patients at [facility] and is available on request on other patients by calling Laboratory Client Services at [phone] Not Detected results do not preclude Influenza [...] by the Microbiology Laboratory, Department of Pathology, , [place], [place]. It has not been cleared or [...] inpatients and intensive care unit patients at [facility] and is available on request on other patients by calling Laboratory Client Services at [phone]. Not Detected results do not preclude Influenza [...] 13-18 <7.5 7-12 <8.0 0- 6 7.5-8.5 [employer]. Diabetes Care 33(S1), May 2009. IO UA (nonautomated w/o micr oscopy)on 03-18-2021 Protein (U) [Mass/Vol] Negative [facility] Work Phone: IO UA (nonautomated w/o microscopy) Normal (0.2-1.0 mg/dl) [facility] Work Phone: IO UA [...] CO2 [Moles/Vol] 29 mmol/L 21 - 32 [facility] Work Phone: Creatinine [Mass/Vol] [...] CLIN CHEM 2007;53:766-72 60 {mL/min/1.73m2} Abnormal >60 [facility] Work Phone: No Panel Informationon 01-21 Please click on the link to view the study images Normal [facility] Work Phone: Tobacco Screening.on Fall risk assessment a) No falls within the last year FB-Hrznnehjug-Ws lakhwinder [address] [place] Work Phone: Tobacco use status CPHS b) No XM-Qwabetmydz-Hp lakhwinder [address] [place] Work Phone: Tobacco Screening.on Fall risk assessment a) No falls within the last year [facility] Work Phone: Tobacco use status CPHS b) No [facility] Work Phone: Tobacco Screening.on Fall risk assessment b) One or more fall s in the last year [facility] Work Phone: Tobacco use status CPHS b) No [facility] Work Phone: IO UA (nonautomated w/o micr oscopy)on 11-17-2020 Protein (U) [Mass/Vol] Negative [facility] Work Phone: IO UA (nonautomated w/o microscopy) Normal [facility] Work Phone: IO UA (nonautomated w/o microscopy) Negative [facility] Work Phone: IO UA (nonautomated w/o microscopy) 6.0 1 [facility] Work Phone: IO UA (nonautomated w/o microscopy) 1.010 1 [facility] Work Phone: IO UA (nonautomated w/o microscopy) Clear [facility] Work Phone: IO UA (nonautomated w/o microscopy) Yellow -[facility] Work Phone: Tobacco Screening.on 021 Fall risk assessment a) No falls within the last year [facility] Work Phone: Tobacco use status CPHS b) No [facility] Work Phone: Tobacco Screening.on 021 Tobacco use status [facility] b) No [facility] Work Phone: Laboratory - Chemistry and C hemistry - challengeon 09-23-2020 Anion gap [Moles/Vol] 12 mmol/L 10 - 20 NC-Hdsgtqyrdt-Wj lakhwinder [address] [place] Work Phone: Calcium [Mass/Vol] 9.5 mg/dL 8.6 - 10.6 [facility]-Car diology-Me lakhwinder [address] [place] Work Phone: Chloride [Moles/Vol] 103 mmol/L 98 - 107 MP-C ardiology-Me lakhwinder [address] [place] Work Phone: CO2 [Moles/Vol] 28 mmol/L 21 - 32 MP-Cardio logy-Me lakhwinder [address] [place] Work Phone: Creatinine [Mass/Vol] 0.78 mg/dL See Below HT-Tekipokkrr-An lakhwinder [address] [place] Work Phone: Comment on above: Reference Range: 0.5 0 - 1.05 Glucose [Mass/Vol] 130 mg/dL above high threshold 74 - 99 FQ-Msvoitagbo-Aq lakhwinder [address] [place] Work Phone: Potassium [Moles/Vol] 4.1 mmol/L 3.5 - 5.3 KY-Mvwmdbncdw-Jq lakhwinder [address] [place] Work Phone: Sodium [Moles/Vol] 139 mmol/L 136 - 145 MP-Car diology-Me lakhwinder [address] [place] Work Phone: Urea nitrogen [Mass/Vol] 21 mg/dL 6 - 23 TC-Zeakddubfq-Db lakhwinder [address] [place] Work Phone: No Panel Informationon 09-23 >60 >60 MP-Cardiology- Me lakhwinder [address] [place] Work Phone: Comment on above: CALCULATIONS OF GALILEA MATED GFR ARE PERFORMED USING THE MDRD STUDY EQUATION FOR THE IDMS-TRACEABLE CREATININE METHODS. CLIN CHEM 2007;53:766-72 Tobacco Screening.on 021 Fall risk assessment a) No falls within the last year HY-Ojjqikucfa-Sq rma Work Phone: Tobacco Screening. b) No MP-Car diology-Pa rma Work Phone: Laboratory - Chemistry and C hemistry - challengeon 09-08-2020 Urea nitrogen [Mass/Vol] 25.0 mg/dL Normal PC-Aqttdphuel-Fh rma Work Phone: No Panel Informationon 09-08 [...] dosing. 26 mg/dL above high threshold 10-20 KM-Ugmoluomuu-Nb rma Work Phone: 4.3 mmol/L Normal 3.5-5.1 [facility]iology- Pa rma Work Phone: 9.2 mg/dL Normal 8.5-10.5 [facility] Work Phone: 31.2 mmol/L Normal 21.0-32.0 [facility]Pa [facility] Work Phone: 1.0 mg/dL Normal 0.6-1.0 [facility] Work Phone: 137 mmol/L Normal 135-145 [facility] Work Phone: 98 mmol/L below low threshold 100-109 FU-Wupvuzgggl-Dh rma Work Phone: 159 mg/dL above high threshold 72-100 HN-Jtkxjtatfg-Pm rma Work Phone: Comment on above: Venipuncture should occur prior to sulfasalazine administration due to the potential for falsely depressed results. Venipuncture should occur prior to sulfapyridine administration due to the potential falsely elevated results.Baseline assay values before administration of sulfasalazine and sulfapyridine therapy would not be affected. Radiologyon 09-08-2020 XR Chest PA and Lateral Normal ZO-Iwirpxisvq-Ms rma Work Phone: Falls Risk Screeningon 09-03 Fall risk assessment a) No falls within the last year ZV-Jjavlrhadl-Sm rma Work Phone: Hemoglobin A1Con 04-13-2020 HbA1c (Bld) [Mass fraction] 134 {MG/DL} [facility] Work Phone: HbA1c (Bld) [Mass fraction] 6.3 % [facility] Work Phone: Comment on above: Diagnosis of Diabete s-Adults Non-Diabetic: < or = 5.6% Increased risk for developing diabetes: 5.7-6.4% Diagnostic of diabetes: > or = 6.5%. Monitoring of Diabetes Age (y) Therapeutic Goal (%) Adults: >18 <7.0 Pediatrics: 13-18 <7.5 7-12 <8.0 0- 6 7.5-8.5 [employer]. Diabetes Care 33(S1), May 2009. Lipid Panelon 04-13-2020 Cholesterol [Mass/Vol] 196 mg/dL 0 - 199 [facility] Work Phone: Comment on above: . AGE [...] guidelines reference: NCEP ATPIII Guidelines, OSCAR 2001, 258:2466-97. Venipuncture immediately after or during the administration of Metamizole may lead to falsely low results. Testing should be performed immediately prior to Metamizole dosing. Cholesterol in HDL [Mass/Vol] 69.2 mg/dL [facility] Work Phone: Comment on above: . AGE VERY LOW LOW N ORMAL HIGH 0-19 Y < 35 < 40 40-45 ---- 20- 24 Y ---- < 40 >45 ---- >24 Y ---- < 40 40-60 >60. Cholesterol in LDL [Mass/Vol] 86 mg/dL 0 - 99 [facility] Work Phone: Comment on above: . NEAR BORD AGE MARRY RABLE OPTIMAL HIGH HIGH VERY HIGH 0-19 Y 0 - 109 --- 110-129 >/= 130 ---- 20-24 Y 0 - 119 --- 120-159 >/= 160 ---- >24 Y 0 - 99 100-129 130-159 160-189 >/=190. Cholesterol non HDL [Mass/Vol] 127 mg/dL [facility] Work Phone: Comment on above: AGE DESIRABLE BORDER LINE HIGH HIGH VERY HIGH 0-19 Y 0 - 119 120 - 144 >/= 145 >/= 160 20-24 Y 0 - 149 150 - 189 >/= 190 ---- >24 Y 30 MG/DL ABOVE LDL CHOLESTEROL GOAL. Cholesterol.total/Ch olesterol in HDL [Mass ratio] 2.8 {ratio} [facility] Work Phone: Comment on above: REF VALUESDESIRABLE < 3.4HIGH RISK > 5.0 Triglyceride [Mass/Vol] 204 mg/dL above high threshold 0 - 149 [facility] Work Phone: Comment on above: . AGE [...] mg/dL above high threshold 0 - 40 [facility] Work Phone: Metabolic Panelon 04-13-2020 ALP [Catalytic activity/Vol] 84 U/L 33 - 136 [facility] Work Phone: Anion gap [Moles/Vol] 14 mmol/L 10 - 20 [facility] Work Phone: Bilirubin [Mass/Vol] 0.4 mg/dL 0.0 - 1.2 [facility] Work Phone: Calcium [Mass/Vol] 9.7 mg/dL 8.6 - 10.6 -[facility] Work Phone: Chloride [Moles/Vol] 103 mmol/L 98 - 107 -[facility] Work Phone: CO2 [Moles/Vol] 24 mmol/L 21 - 32 -[facility] Work Phone: Creatinine [Mass/Vol] 0.72 mg/dL See Below -[facility] Work Phone: Comment on above: Reference Range: 0.5 0 - 1.05 Glucose [Mass/Vol] 138 mg/dL above high threshold 74 - 99 -[facility] Work Phone: Potassium [Moles/Vol] 4.4 mmol/L 3.5 - 5.3 -[facility] Work Phone: Protein [Mass/Vol] 7.3 g/dL 6.4 - 8.2 -[facility] Work Phone: Sodium [Moles/Vol] 137 mmol/L 136 - 145 [facility] Work Phone: Urea nitrogen [Mass/Vol] 17 mg/dL 6 - 23 -[facility] Work Phone: Otheron 04-13-2020 Albumin BCP dye [Mass/Vol] 4.2 g/dL 3.4 - 5.0 -[facility] Work Phone: ALT With P-5'-P [Catalytic activity/Vol] 17 U/L 7 - 45 [facility] Work Phone: Comment on above: Patients treated wit h Sulfasalazine may generate falsely decreased results for ALT. AST With P-5'-P [Catalytic activity/Vol] 18 U/L 9 - 39 -[facility] Work Phone: >60 >60 [facility] Work Phone: Comment on above: CALCULATIONS OF GALILEA MATED GFR ARE PERFORMED USING THE MDRD STUDY EQUATION FOR THE IDMS-TRACEABLE CREATININE METHODS. CLIN CHEM 2007;53:766-72 Coronavirus 2019 RNA by PCR, Symptomaticon 03-10-2020 EMPLOYED IN HEALTHCARE No [facility] Work Phone: Comment on above: COVID CALLED TO CLAI RE, 03/11/2020 13:24 FIRST COVID NASAL SWAB TEST? Unknown [facility] Work Phone: Comment on above: COVID CALLED TO CLAI RE, 03/11/2020 13:24 ICU? No [facility] Work Phone: Comment on above: COVID CALLED TO CLAI RE, 03/11/2020 13:24 Patient was hospitalized because of this condition No [facility] Work Phone: Comment on above: COVID CALLED TO CLAI RE, 03/11/2020 13:24 status Unknown [facility] Work Phone: Comment on above: COVID CALLED TO CLAI RE, 03/11/2020 13:24 RESIDENT IN CONGREGATE CARE SETTING? No [facility] Work Phone: Comment on above: COVID CALLED TO CLAI RE, 03/11/2020 13:24 SYMPTOMATIC DEFINED BY CDC Yes [facility] Work Phone: Comment on above: COVID CALLED TO CLAI RE, 03/11/2020 13:24 When did you start to experience these symptoms [Date and time] [PhenX] [id number] [facility] Work Phone: Comment on above: COVID CALLED TO CLAI RE, 03/11/2020 13:24 Coronavirus 2019 RNA by PCR, Symptomatic DETECTED Abnormal See Below [facility] Work Phone: Comment on above: SOURCE: Nasal, [...] make patient management decisions.Fact sheet for providers: https://www.fda.gov/media/219309/downloadFact sheet for patients: https://www.fda.gov/media/837049/downloadThis test has received FDA Emergency Use Authorization (EUA) and has been verified by ([facility]). This test is only authorized for the duration of time that circumstances exist to justify the authorization of the emergency use of in vitro diagnostic tests for the detection of SARS-CoV-2 virus and/or diagnosis of COVID-19 infection under section 564(b)(1) of the Act, 21 U.S.C. 360bbb-3(b)(1), unless the authorization is terminated or revoked sooner. is certified under CLIA-88 as qualified to perform high complexity testing. Testing is performed in the [facility] laboratories located at [address] [place] [address].COVID CALLED TO PATO, 03/11/2020 13:24 COVID CALLED TO ABISAI QUACH, 03/11/2020 13:24 Metabolic Panelon 10-15-2019 Glucose [Mass/Vol] 115 mg/dL above high threshold 74 - 99 [facility] Work Phone: Glucose [Mass/Vol] 131 mg/dL above high threshold 74 - 99 [facility] Work Phone: Otheron 10-15-2019 Name [...] The specimen is submitted in [facility] in [facility]/10/14 [facility] Work Phone: Otheron 10-12-2019 NOT DETECTED See Below -[facility] 160 Work Phone: Comment on above: SOURCE: [...] this test method. Fact sheet for providers: https://www.fda.gov/media/838988/downloadFact sheet for patients: https://www.fda.gov/media/410719/downloadThis test has been validated by the death surveys coder but [facility] independent review of this validation is pending. This test has been verified by ([facility]). This test is only authorized for the duration of time that circumstances exist to justify the authorization of the emergency use of in vitro diagnostic tests for the detection of SARS-CoV-2 virus and/or diagnosis of COVID-19 infection under section 564(b)(1) of the Act, 21 U.S.C. 360bbb-3(b)(1), unless the authorization is terminated or revoked sooner. is certified under CLIA-88 as qualified to perform high complexity testing. Testing is performed in the [facility] laboratories located at [address] [place] [address]. Hematologyon 07-04-2019 Hematocrit (Bld) [Volume fraction] 44.6 % See Below [facility] Work Phone: Comment on above: Reference Range: 36. 0 - 46.0 Ordering Provider: Marcus JORDAN 35076 Hemoglobin (Bld) [Mass/Vol] 14.5 g/dL See Below [facility] Work Phone: Comment on above: Reference Range: 12. 0 - 16.0 Ordering Provider: Marcus JORDAN 49949 MCV (RBC) [Entitic vol] 91 fL 80 - 100 -[facility] Work Phone: Comment on above: Ordering Provider: Marcus VAZQUEZAT 45905 Platelets (Bld) [#/Vol] 294 {x10E9/L} 150 - 450 [facility] Work Phone: Comment on above: Ordering Provider: Marcus VAZQUEZAT 48714 RBC (Bld) [#/Vol] 4.91 {x10E12/L} See Below -[facility] Work Phone: Comment on above: Reference Range: 4.0 0 - 5.20 Ordering Provider: Marcus VAZQUEZAT 47006 WBC (Bld) [#/Vol] 0.0 {/100_WBC} 0.0 - 0.0 [facility] Work Phone: Comment on above: Ordering Provider: Marcus VAZQUEZAT 58616 WBC (Bld) [#/Vol] 11.2 {x10E9/L} 4.4 - 11.3 [facility] Work Phone: Comment on above: Ordering Provider: Marcus JORDAN 82792 Metabolic Panelon 07-04-2019 ALP [Catalytic activity/Vol] 74 U/L 33 - 136 [facility] Work Phone: Comment on above: Ordering Provider: Marcus VAZQUEZAT 09840 Anion gap [Moles/Vol] 12 mmol/L 10 - 20 [facility] Work Phone: Comment on above: Ordering Provider: T HOMAS MANDAT 25820 Bilirubin [Mass/Vol] 0.6 mg/dL 0.0 - 1.2 [facility] Work Phone: Comment on above: Ordering Provider: T HOMAS MANDAT 77238 Calcium [Mass/Vol] 9.4 mg/dL 8.6 - 10.3 [facility] Work Phone: Comment on above: Ordering Provider: T HOMAS MANDAT 64723 Chloride [Moles/Vol] 100 mmol/L 98 - 107 [facility] Work Phone: Comment on above: Ordering Provider: T HOMAS MANDAT 85040 CO2 [Moles/Vol] 29 mmol/L 21 - 32 [facility] Work Phone: Comment on above: Ordering Provider: T HOMAS MANDAT 51970 Creatinine [Mass/Vol] 0.70 mg/dL See Below [facility] Work Phone: Comment on above: Reference Range: 0.5 0 - 1.05 Ordering Provider: T HOMAS MANDAT 20713 Glucose [Mass/Vol] 112 mg/dL above high threshold 74 - 99 [facility] Work Phone: Comment on above: Ordering Provider: T HOMAS MANDAT 43359 Potassium [Moles/Vol] 4.4 mmol/L 3.5 - 5.3 [facility] Work Phone: Comment on above: Ordering Provider: T HOMAS MANDAT 77216 Protein [Mass/Vol] 6.8 g/dL 6.4 - 8.2 [facility] Work Phone: Comment on above: Ordering Provider: T HOMAS MANDAT 47980 Sodium [Moles/Vol] 137 mmol/L 136 - 145 [facility] Work Phone: Comment on above: Ordering Provider: T HOMAS MANDAT 18088 Urea nitrogen [Mass/Vol] 21 mg/dL 6 - 23 -[facility] Work Phone: Comment on above: Ordering Provider: Marcus JORDAN 74649 Otheron 07-04-2019 Albumin BCP dye [Mass/Vol] 3.7 g/dL 3.4 - 5.0 -[facility] Work Phone: Comment on above: Ordering Provider: Marcus VAZQUEZAT 46114 ALT With P-5'-P [Catalytic activity/Vol] 40 U/L 7 - 45 [facility] Work Phone: Comment on above: Patients treated wit h Sulfasalazine may generate falsely decreased results for ALT. Ordering Provider: Marcus VAZQUEZAT 32298 AST With P-5'-P [Catalytic activity/Vol] 24 U/L 9 - 39 -[facility] Work Phone: Comment on above: Ordering Provider: Marcus JORDAN 06594 Erythrocyte distribution width (RBC) [Ratio] 14.1 % See Below [facility] Work Phone: Comment on above: Reference Range: 11. 5 - 14.5 Ordering Provider: Marcus JORDAN 87120 MCHC (RBC) [Mass/Vol] 32.5 g/dL See Below [facility] Work Phone: Comment on above: Reference Range: 32. 0 - 36.0 Ordering Provider: Marcus JORDAN 79241 >60 >60 [facility] Work Phone: Comment on above: CALCULATIONS OF GALILEA MATED GFR ARE PERFORMED USING THE MDRD STUDY EQUATION FOR THE IDMS-TRACEABLE CREATININE METHODS. CLIN CHEM 2007;53:766-72 Ordering Provider: Marcus JORDAN 53026 Hematologyon 07-03-2019 Hematocrit (Bld) [Volume fraction] 42.7 % See Below [facility] Work Phone: Comment on above: Reference Range: 36. 0 - 46.0 Ordering Provider: Marcus JORDAN 15588 Hemoglobin (Bld) [Mass/Vol] 14.1 g/dL See Below [facility] Work Phone: Comment on above: Reference Range: 12. 0 - 16.0 Ordering Provider: Marcus JORDAN 57209 MCV (RBC) [Entitic vol] 91 fL 80 - 100 [facility] Work Phone: Comment on above: Ordering Provider: Marcus VAZQUEZAT 15653 Platelets (Bld) [#/Vol] 260 {x10E9/L} 150 - 450 [facility] Work Phone: Comment on above: Ordering Provider: Marcus VAZQUEZAT 03415 RBC (Bld) [#/Vol] 4.71 {x10E12/L} See Below [facility] Work Phone: Comment on above: Reference Range: 4.0 0 - 5.20 Ordering Provider: Marcus VAZQUEZAT 41377 WBC (Bld) [#/Vol] 0.0 {/100_WBC} 0.0 - 0.0 [facility] Work Phone: Comment on above: Ordering Provider: Marcus VAZQUEZAT 14924 WBC (Bld) [#/Vol] 13.4 {x10E9/L} above high threshold 4.4 - 11.3 [facility] Work Phone: Comment on above: Ordering Provider: Marcus VAZQUEZAT 77670 Metabolic Panelon 07-03-2019 ALP [Catalytic activity/Vol] 66 U/L 33 - 136 [facility] Work Phone: Comment on above: Ordering Provider: Marcus VAZQUEZAT 95886 Anion gap [Moles/Vol] 11 mmol/L 10 - 20 [facility] Work Phone: Comment on above: Ordering Provider: Marcus VAZQUEZAT 23084 Bilirubin [Mass/Vol] 0.7 mg/dL 0.0 - 1.2 [facility] Work Phone: Comment on above: Ordering Provider: T HOMAS MANDAT 77454 Calcium [Mass/Vol] 9.3 mg/dL 8.6 - 10.3 [facility] Work Phone: Comment on above: Ordering Provider: T HOMAS MANDAT 36039 Chloride [Moles/Vol] 103 mmol/L 98 - 107 [facility] Work Phone: Comment on above: Ordering Provider: T HOMAS MANDAT 29569 CO2 [Moles/Vol] 29 mmol/L 21 - 32 [facility] Work Phone: Comment on above: Ordering Provider: T HOMAS MANDAT 97699 Creatinine [Mass/Vol] 0.71 mg/dL See Below [facility] Work Phone: Comment on above: Reference Range: 0.5 0 - 1.05 Ordering Provider: T HOMAS MANDAT 95129 Glucose [Mass/Vol] 105 mg/dL above high threshold 74 - 99 [facility] Work Phone: Comment on above: Ordering Provider: T HOMAS MANDAT 30198 Potassium [Moles/Vol] 3.9 mmol/L 3.5 - 5.3 [facility] Work Phone: Comment on above: Ordering Provider: T HOMAS MANDAT 92645 Protein [Mass/Vol] 6.8 g/dL 6.4 - 8.2 [facility] Work Phone: Comment on above: Ordering Provider: T HOMAS MANDAT 94494 Sodium [Moles/Vol] 139 mmol/L 136 - 145 [facility] Work Phone: Comment on above: Ordering Provider: T HOMAS MANDAT 62694 Urea nitrogen [Mass/Vol] 19 mg/dL 6 - 23 [facility] Work Phone: Comment on above: Ordering Provider: T HOMAS MANDAT 04900 Otheron 07-03-2019 XR Chest 2 views Interpreted by: ARIELLE MARTEL07/03/19 13:51MRN: [id number] Name: PAU MUÑOZ STUDY:TH CHEST 2 VIEW [...] signed by: ARIELLE MARTEL 07/03/19 13:51 Normal -[facility] Work Phone: Comment on above: Ordering Provider: T SHERLYN VAZQUEZAT 46541 Albumin BCP dye [Mass/Vol] 3.7 g/dL 3.4 - 5.0 [facility] Work Phone: Comment on above: Ordering Provider: Marcus HOMADarya MANDAT 58646 ALT With P-5'-P [Catalytic activity/Vol] 42 U/L 7 - 45 [facility] Work Phone: Comment on above: Patients treated wit h Sulfasalazine may generate falsely decreased results for ALT. Ordering Provider: T HOMAS MANDAT 34493 AST With P-5'-P [Catalytic activity/Vol] 28 U/L 9 - 39 [facility] Work Phone: Comment on above: Ordering Provider: Marcus HOMAS MANDAT 05067 Erythrocyte distribution width (RBC) [Ratio] 14.0 % See Below [facility] Work Phone: Comment on above: Reference Range: 11. 5 - 14.5 Ordering Provider: T HOMAS MANDAT 71422 MCHC (RBC) [Mass/Vol] 33.0 g/dL See Below [facility] Work Phone: Comment on above: Reference Range: 32. 0 - 36.0 Ordering Provider: Marcus JORDAN 83245 >60 >60 [facility] Work Phone: Comment on above: Ordering Provider: Marcus JORDAN 22034 CALCULATIONS OF GALILEA MATED GFR ARE PERFORMED USING THE MDRD STUDY EQUATION FOR THE IDMS-TRACEABLE CREATININE METHODS. CLIN CHEM 2007;53:766-72 Vancomycin Level, Troughon 0 07-03-2019 Vancomycin trough [Mass/Vol] 15.1 ug/mL 5.0 - 20.0 [facility] Work Phone: Comment on above: Vancomycin levels sh ould be interpreted in conjunction with the dose, disease being treated, vancomycin SARAH, time of draw (trough concentrations should be obtained just before the next dose at steady-state), and other clinical information. Trough concentrations of 15-20 ug/mL are desired for severe infections. Ref.: Am J Health-Syst Pharm 66: 83-98, 2009. Ordering Provider: Marcus JORDAN 46794 Complete Blood Count + Diffe rentialon 07-02-2019 Basophils (Bld) [#/Vol] 0.03 {x10E9/L} See Below [facility] Work Phone: Comment on above: Reference Range: 0.0 0 - 0.10 Ordering Provider: Marcus JORDAN 31016 Basophils/100 WBC (Bld) 0.2 % 0.0 - 2.0 [facility] Work Phone: Comment on above: Ordering Provider: Marcus JORDAN 50158 Eosinophils (Bld) [#/Vol] 0.01 {x10E9/L} See Below [facility] Work Phone: Comment on above: Reference Range: 0.0 0 - 0.70 Ordering Provider: Marcus VAZQUEZAT 09303 Eosinophils/100 WBC (Bld) 0.1 % 0.0 - 6.0 [facility] Work Phone: Comment on above: Ordering Provider: Marcus PLATA MANDAT 40103 Erythrocyte distribution width (RBC) [Ratio] 14.6 % above high threshold See Below [facility] Work Phone: Comment on above: Reference Range: 11. 5 - 14.5 Ordering Provider: Marcus PLATA MANDAT 90311 Hematocrit (Bld) [Volume fraction] 41.9 % See Below [facility] Work Phone: Comment on above: Reference Range: 36. 0 - 46.0 Ordering Provider: Marcus GUERREROS MANDAT 65539 Hemoglobin (Bld) [Mass/Vol] 13.6 g/dL See Below [facility] Work Phone: Comment on above: Reference Range: 12. 0 - 16.0 Ordering Provider: Marcus GUERREROS MANDAT 97389 Lymphocytes (Bld) [#/Vol] 2.90 {x10E9/L} See Below [facility] Work Phone: Comment on above: Reference Range: 1.2 0 - 4.80 Ordering Provider: Marcus PLATA MANDAT 40395 Lymphocytes/100 WBC (Bld) 21.5 % See Below [facility] Work Phone: Comment on above: Reference Range: 13. 0 - 44.0 Ordering Provider: Marcus GUERREROS MANDAT 01219 MCHC (RBC) [Mass/Vol] 32.5 g/dL See Below [facility] Work Phone: Comment on above: Reference Range: 32. 0 - 36.0 Ordering Provider: Marcus GUERREROS MANDAT 24824 MCV (RBC) [Entitic vol] 91 fL 80 - 100 [facility] Work Phone: Comment on above: Ordering Provider: Marcus GUERREROS MANDAT 06279 Monocytes (Bld) [#/Vol] 1.55 {x10E9/L} above high threshold See Below [facility] Work Phone: Comment on above: Reference Range: 0.1 0 - 1.00 Ordering Provider: Marcus VAZQUEZAT 66922 Monocytes/100 WBC (Bld) 11.5 % 2.0 - 10.0 [facility] Work Phone: Comment on above: Ordering Provider: Marcus VAZQUEZAT 38646 Neutrophils/100 WBC (Bld) 64.1 % See Below [facility] Work Phone: Comment on above: Reference Range: 40. 0 - 80.0 Ordering Provider: Marcus VAZQUEZAT 23731 Platelets (Bld) [#/Vol] 264 {x10E9/L} 150 - 450 [facility] Work Phone: Comment on above: Ordering Provider: Marcus VAZQUEZAT 10521 RBC (Bld) [#/Vol] 4.60 {x10E12/L} See Below [facility] Work Phone: Comment on above: Reference Range: 4.0 0 - 5.20 Ordering Provider: Marcus VAZQUEZAT 05719 WBC (Bld) [#/Vol] 0.0 {/100_WBC} 0.0 - 0.0 [facility] Work Phone: Comment on above: Ordering Provider: Marcus VAZQUEZAT 90919 WBC (Bld) [#/Vol] 13.5 {x10E9/L} above high threshold 4.4 - 11.3 [facility] Work Phone: Comment on above: Ordering Provider: Marcus VAZQUEZAT 30279 Complete Blood Count + Differential 2.6 % above high threshold 0.0 - 0.9 [facility] Work Phone: Comment on above: Immature Granulocyte Count (IG) includes promyelocytes, myelocytes and metamyelocytes but does not include bands. Percent differential counts (%) should be interpreted in the context of the absolute cell counts (cells/L). Ordering Provider: Marcus PLATA MANDAT 72209 Complete Blood Count + Differential 8.66 {x10E9/L} above high threshold See Below [facility] Work Phone: Comment on above: Reference Range: 1.2 0 - 7.70 Ordering Provider: Marcus VAZQUEZAT 85769 Metabolic Panelon 07-02-2019 Anion gap [Moles/Vol] 14 mmol/L 10 - 20 [facility] Work Phone: Comment on above: Ordering Provider: T HOMAS MANDAT 07307 Calcium [Mass/Vol] 9.5 mg/dL 8.6 - 10.3 [facility] Work Phone: Comment on above: Ordering Provider: Marcus HOMAS MANDAT 40810 Chloride [Moles/Vol] 101 mmol/L 98 - 107 [facility] Work Phone: Comment on above: Ordering Provider: T CESARS MANDAT 79862 CO2 [Moles/Vol] 29 mmol/L 21 - 32 [facility] Work Phone: Comment on above: Ordering Provider: Marcus HOMAS MANDAT 97721 Creatinine [Mass/Vol] 0.75 mg/dL See Below [facility] Work Phone: Comment on above: Reference Range: 0.5 0 - 1.05 Ordering Provider: Marcus PLATA MANDAT 01646 Glucose [Mass/Vol] 94 mg/dL 74 - 99 [facility] Work Phone: Comment on above: Ordering Provider: Marcus HOMAS MANDAT 34503 Potassium [Moles/Vol] 3.7 mmol/L 3.5 - 5.3 [facility] Work Phone: Comment on above: Ordering Provider: Marcus HOMAS MANDAT 75746 Sodium [Moles/Vol] 140 mmol/L 136 - 145 [facility] Work Phone: Comment on above: Ordering Provider: Marcus HOMAS MANDAT 93069 Urea nitrogen [Mass/Vol] 20 mg/dL 6 - 23 [facility] Work Phone: Comment on above: Ordering Provider: T HOMAS MANDAT 40068 Otheron 07-02-2019 >60 >60 [facility] Work Phone: Comment on above: Ordering Provider: Marcus JORDAN 46353 CALCULATIONS OF GALILEA MATED GFR ARE PERFORMED USING THE MDRD STUDY EQUATION FOR THE IDMS-TRACEABLE CREATININE METHODS. CLIN CHEM 2007;53:766-72 Vancomycin Level, Randomon 0 07-02-2019 Vancomycin [Mass/Vol] 13.8 ug/mL [facility] Work Phone: Comment on above: .Therapeutic Ranges: Peak: All ages: 30.0-40.0 ug/mL. Trough: Age <18y: 5.0-10.0 ug/mL. Age >/= 18y: 5.0-20.0 ug/mL. Vancomycin trough concentrations drawn immediately prior to the next dose at steady-state are preferred for monitoring patients treated with vancomycin. Ref.: Am J Health-Syst Pharm 66: 83-98, 2009. Ordering Provider: Marcus JORDAN 58180 Cardiacon 07-01-2019 Natriuretic peptide B (Bld) [Mass/Vol] 129 pg/mL above high threshold 0 - 99 [facility] Work Phone: Comment on above: . <100 pg/mL - Heart failure [id number] pg/mL - Intermediate probability of acute heart. failure exacerbation. Correlate with clinical. context and patient history. >=300 pg/mL - Heart Failure likely. Correlate with clinical. context and patient history.BNP testing is performed using different testing methodology at [facility] than at other [facility]. Direct result comparisons should only be made within the same method. Ordering Provider: Marcus JORDAN 34699 Hematologyon 07-01-2019 Hematocrit (Bld) [Volume fraction] 38.5 % See Below [employer] [facility] Work Phone: Comment on above: Reference Range: 36. 0 - 46.0 Ordering Provider: Marcus JORDAN 20611 Hemoglobin (Bld) [Mass/Vol] 12.3 g/dL See Below [employer] [facility] Work Phone: Comment on above: Reference Range: 12. 0 - 16.0 Ordering Provider: Marcus HOMAS MANDAT 32291 MCV (RBC) [Entitic vol] 92 fL 80 - 100 [facility] Work Phone: Comment on above: Ordering Provider: Marcus HOMAS MANDAT 48260 Platelets (Bld) [#/Vol] 264 {x10E9/L} 150 - 450 [facility] Work Phone: Comment on above: Ordering Provider: Marcus HOMAS MANDAT 51283 RBC (Bld) [#/Vol] 4.17 {x10E12/L} See Below [facility] Work Phone: Comment on above: Reference Range: 4.0 0 - 5.20 Ordering Provider: Marcus HOMAS MANDAT 83894 WBC (Bld) [#/Vol] 18.5 {x10E9/L} above high threshold 4.4 - 11.3 [facility] Work Phone: Comment on above: Ordering Provider: Marcus HOMAS MANDAT 81015 WBC (Bld) [#/Vol] 0.0 {/100_WBC} 0.0 - 0.0 [facility] Work Phone: Comment on above: Ordering Provider: Marcus HOMAS MANDAT 15032 Metabolic Panelon 07-01-2019 ALP [Catalytic activity/Vol] 63 U/L 33 - 136 [facility] Work Phone: Comment on above: Ordering Provider: Marcus HOMAS MANDAT 53546 Anion gap [Moles/Vol] 13 mmol/L 10 - 20 [facility] Work Phone: Comment on above: Ordering Provider: Marcus HOMAS MANDAT 05328 Bilirubin [Mass/Vol] 0.5 mg/dL 0.0 - 1.2 [facility] Work Phone: Comment on above: Ordering Provider: Marcus HOMAS MANDAT 03592 Calcium [Mass/Vol] 9.3 mg/dL 8.6 - 10.3 -[facility] Work Phone: Comment on above: Ordering Provider: T HOMAS MANDAT 69038 Chloride [Moles/Vol] 104 mmol/L 98 - 107 -[facility] Work Phone: Comment on above: Ordering Provider: T HOMAS MANDAT 14909 CO2 [Moles/Vol] 27 mmol/L 21 - 32 [facility] Work Phone: Comment on above: Ordering Provider: T HOMAS MANDAT 74181 Creatinine [Mass/Vol] 0.74 mg/dL See Below [facility] Work Phone: Comment on above: Reference Range: 0.5 0 - 1.05 Ordering Provider: T HOMAS MANDAT 57601 Glucose [Mass/Vol] 129 mg/dL above high threshold 74 - 99 [facility] Work Phone: Comment on above: Ordering Provider: T HOMAS MANDAT 87027 Potassium [Moles/Vol] 4.1 mmol/L 3.5 - 5.3 [facility] Work Phone: Comment on above: Ordering Provider: T HOMAS MANDAT 95263 Protein [Mass/Vol] 6.3 g/dL below low threshold 6.4 - 8.2 [facility] Work Phone: Comment on above: Ordering Provider: T HOMAS MANDAT 53295 Sodium [Moles/Vol] 140 mmol/L 136 - 145 [facility] Work Phone: Comment on above: Ordering Provider: T HOMAS MANDAT 45719 Urea nitrogen [Mass/Vol] 21 mg/dL 6 - 23 [facility] Work Phone: Comment on above: Ordering Provider: Marcus HOMAS MANDAT 27883 Otheron 07-01-2019 XR Chest 2 views Interpreted by: VY DEE07/01/19 11:48MRN: [id number] Name: PAU MUÑOZ STUDY:TH CHEST 2 VIEW [...] silhouette is mildlyprominent, similar to prior studies. Ddym-ij-nvanocgu discogenicdegenerative changes are seen throughout the thoracic spine. IMPRESSION:Diffuse interstitial prominence and left basilar airspaceconsolidation, as described above. Clinical correlation and continuedfollow-up until clearing is recommended.Electronic ally signed by: VY DEE 07/01/19 11:48 Normal [facility] Work Phone: Comment on above: Ordering Provider: T HOMAS MANDAT 16367 Albumin BCP dye [Mass/Vol] 3.6 g/dL 3.4 - 5.0 [facility] Work Phone: Comment on above: Ordering Provider: T HOMAS MANDAT 64184 ALT With P-5'-P [Catalytic activity/Vol] 23 U/L 7 - 45 [facility] Work Phone: Comment on above: Patients treated wit h Sulfasalazine may generate falsely decreased results for ALT. Ordering Provider: T HOMAS MANDAT 04822 AST With P-5'-P [Catalytic activity/Vol] 23 U/L 9 - 39 [facility] Work Phone: Comment on above: Ordering Provider: T HOMAS MANDAT 66408 Erythrocyte distribution width (RBC) [Ratio] 14.7 % above high threshold See Below [facility] Work Phone: Comment on above: Reference Range: 11. 5 - 14.5 Ordering Provider: T HOMAS MANDAT 77771 MCHC (RBC) [Mass/Vol] 31.9 g/dL below low threshold See Below [facility] Work Phone: Comment on above: Reference Range: 32. 0 - 36.0 Ordering Provider: Marcus SHERLYN NIKKI 01318 >60 >60 [facility] Work Phone: Comment on above: Ordering Provider: Marcus SHERLYN NIKKI 88374 CALCULATIONS OF GALILEA MATED GFR ARE PERFORMED USING THE MDRD STUDY EQUATION FOR THE IDMS-TRACEABLE CREATININE METHODS. CLIN CHEM 2007;53:766-72 Blood Gason 06-30-2019 HCO3 (Bld) [Moles/Vol] 26.5 mmol/L above high threshold See Below [facility] Work Phone: Comment on above: Reference Range: 22. 0 - 26.0 Ordering Provider: Marcus SHERLYN NIKKI 97824 Oxygen (Bld) [Partial pressure] 55 {mmHg} below low threshold 85 - 95 [facility] Work Phone: Comment on above: Ordering Provider: Marcus SHERLYN VAZQUEZKATALINA 92867 Cardiacon 06-30-2019 Natriuretic peptide B (Bld) [Mass/Vol] 217 pg/mL above high threshold 0 - 99 [facility] Work Phone: Comment on above: . <100 pg/mL - Heart failure [id number] pg/mL - Intermediate probability of acute heart. failure exacerbation. Correlate with clinical. context and patient history. >=300 pg/mL - Heart Failure likely. Correlate with clinical. context and patient history.BNP testing is performed using different testing methodology at [facility] than at other [facility]. Direct result comparisons should only be made within the same method. Complete Blood Count + Diffe rentialon 06-30-2019 Basophils (Bld) [#/Vol] 0.04 {x10E9/L} See Below [facility] Work Phone: Comment on above: Reference Range: 0.0 0 - 0.10 Basophils/100 WBC (Bld) 0.2 % 0.0 - 2.0 [facility]: Eosinophils (Bld) [#/Vol] 0.00 {x10E9/L} See Below [employer] [facility] Work Phone: Comment on above: Reference Range: 0.0 0 - 0.70 Eosinophils/100 WBC (Bld) 0.0 % 0.0 - 6.0 -[employer] [facility] Work Phone: Erythrocyte distribution width (RBC) [Ratio] 15.0 % above high threshold See Below [employer] [facility] Work Phone: Comment on above: Reference Range: 11. 5 - 14.5 Hematocrit (Bld) [Volume fraction] 40.5 % See Below [facility] Work Phone: Comment on above: Reference Range: 36. 0 - 46.0 Hemoglobin (Bld) [Mass/Vol] 13.1 g/dL See Below [employer] [facility] Work Phone: Comment on above: Reference Range: 12. 0 - 16.0 Lymphocytes (Bld) [#/Vol] 2.44 {x10E9/L} See Below [employer] [facility] Work Phone: Comment on above: Reference Range: 1.2 0 - 4.80 Lymphocytes/100 WBC (Bld) 9.2 % See Below [employer] [facility] Work Phone: Comment on above: Reference Range: 13. 0 - 44.0 MCHC (RBC) [Mass/Vol] 32.3 g/dL See Below [employer] [facility] Work Phone: Comment on above: Reference Range: 32. 0 - 36.0 MCV (RBC) [Entitic vol] 92 fL 80 - 100 -[employer] [facility] Work Phone: Monocytes (Bld) [#/Vol] 2.16 {x10E9/L} above high threshold See Below [employer] [facility] Work Phone: Comment on above: Reference Range: 0.1 0 - 1.00 Monocytes/100 WBC (Bld) 8.1 % 2.0 - 10.0 [employer] [facility] Work Phone: Neutrophils/100 WBC (Bld) 80.5 % See Below [facility] Work Phone: Comment on above: Reference Range: 40. 0 - 80.0 Platelets (Bld) [#/Vol] 265 {x10E9/L} 150 - 450 -[employer] [facility] Work Phone: RBC (Bld) [#/Vol] 4.40 {x10E12/L} See Below [facility] Work Phone: Comment on above: Reference Range: 4.0 0 - 5.20 WBC (Bld) [#/Vol] 26.6 {x10E9/L} above high threshold 4.4 - 11.3 [facility] Work Phone: WBC (Bld) [#/Vol] 0.0 {/100_WBC} 0.0 - 0.0 [facility] Work Phone: Complete Blood Count + Differential 21.47 {x10E9/L} above high threshold See Below [facility] Work Phone: Comment on above: Reference Range: 1.2 0 - 7.70 Complete Blood Count + Differential 2.0 % above high threshold 0.0 - 0.9 [facility] Work Phone: Comment on above: Immature Granulocyte Count (IG) includes promyelocytes, myelocytes and metamyelocytes but does not include bands. Percent differential counts (%) should be interpreted in the context of the absolute cell counts (cells/L). Hematologyon 06-30-2019 Hematocrit (Bld) [Volume fraction] 46.0 % See Below [facility] Work Phone: Comment on above: Reference Range: 36. 0 - 46.0 Ordering Provider: Marcus JORDAN 01892 Hemoglobin (Bld) [Mass/Vol] 15.6 g/dL See Below [facility] Work Phone: Comment on above: Reference Range: 12. 0 - 16.0 Ordering Provider: Marcus JORDAN 88626 pH (Bld) 7.43 [pH] above high threshold See Below [facility] Work Phone: Comment on above: Reference Range: 7.3 8 - 7.42 Ordering Provider: Marcus JORDAN 01658 Lactate, Levelon 06-30-2019 Lactate [Moles/Vol] 2.3 mmol/L above high threshold 0.4 - 2.0 [facility] Work Phone: Comment on above: Venipuncture immedia tely after or during the administration of Metamizole may lead to falsely low results. Testing should be performed immediately prior to Metamizole dosing. Ordering Provider: Marcus JORDAN 81856 Lactate [Moles/Vol] 3.0 mmol/L above high threshold 0.4 - 2.0 [facility] Work Phone: Comment on above: Venipuncture immedia tely after or during the administration of Metamizole may lead to falsely low results. Testing should be performed immediately prior to Metamizole dosing. Magnesium, Serumon 0 Magnesium [Mass/Vol] 1.96 mg/dL See Below [facility] Work Phone: Comment on above: Reference Range: 1.6 0 - 2.40 Magnesium [Mass/Vol] Canceled [facility] Work Phone: Comment on above: TEST MAGNESIUM WAS C ANCELLED, 06/30/2019 06:37 ADD ON TO EXISTING SPECIMEN.. Metabolic Panelon 06-30-2019 Calcium.ionized (Bld) [Moles/Vol] 1.26 mmol/L See Below [facility] Work Phone: Comment on above: Reference Range: 1.1 0 - 1.33 Ordering Provider: T HOMAS MANDAT 91797 Chloride [Moles/Vol] 103 mmol/L 98 - 107 -S [facility] Work Phone: Comment on above: Ordering Provider: T HOMAS MANDAT 25248 CO2 (Bld) [Partial pressure] 40 {mmHg} 38 - 42 [facility] Work Phone: Comment on above: Ordering Provider: T HOMAS MANDAT 46772 Glucose [Mass/Vol] 224 mg/dL above high threshold 74 - 99 [facility] Work Phone: Comment on above: Ordering Provider: T HOMAS MANDAT 00759 Lactate [Moles/Vol] 2.9 mmol/L above high threshold 0.4 - 2.0 [facility] Work Phone: Comment on above: Ordering Provider: T HOMAS MANDAT 50446 Potassium [Moles/Vol] 4.2 mmol/L 3.5 - 5.3 [facility] Work Phone: Comment on above: Ordering Provider: T HOMAS MANDAT 10475 Sodium [Moles/Vol] 135 mmol/L below low threshold 136 - 145 [facility] Work Phone: Comment on above: Ordering Provider: Marcus HOMAS MANDAT 06495 Anion gap [Moles/Vol] 14 mmol/L 10 - 20 -[facility] Work Phone: Calcium [Mass/Vol] 9.5 mg/dL 8.6 - 10.3 -[facility] Work Phone: Chloride [Moles/Vol] 105 mmol/L 98 - 107 -[facility] Work Phone: CO2 [Moles/Vol] 23 mmol/L 21 - 32 -[facility] Work Phone: Creatinine [Mass/Vol] 0.81 mg/dL See Below -[facility] Work Phone: Comment on above: Reference Range: 0.5 0 - 1.05 Glucose [Mass/Vol] 130 mg/dL above high threshold 74 - 99 -[facility] Work Phone: Potassium [Moles/Vol] 3.9 mmol/L 3.5 - 5.3 -[facility] Work Phone: Sodium [Moles/Vol] 138 mmol/L 136 - 145 -[facility] Work Phone: Urea nitrogen [Mass/Vol] 24 mg/dL above high threshold 6 - 23 -[facility] Work Phone: Otheron 06-30-2019 Interpreted by: VY DEE06/30/19 10:41MRN: [id number] Name: PAU MUÑOZ STUDY:CHEST 1 VIEW; 06/30/2019 [...] signed by: VY DEE 06/30/19 10:41 Normal -[facility] Work Phone: Ventricular-paced rhythm with frequent and consecutive premature ventricular complexes [facility] Work Phone: [phone] [facility] Work Phone: 48 1 -[facility] Work Phone: [phone] 1 -[facility] Work Phone: [phone] 1 -[facility] Work Phone: 81 1 -[facility] Work Phone: [phone] 1 -[facility] Work Phone: [phone] 1 -[employer] [facility] Work Phone: [email or web address] 1: [email or web address]/musescripts/musew eb.dll?RetrieveTestByD ateTime?[email or web address] [email or web address] -[facility] Work Phone: [phone] 1 -[facility] Work Phone: [phone] 1 -[facility] Work Phone: 59 1 -[employer] [facility] Work Phone: [phone] 1 -[facility] Work Phone: Anion gap (Bld) [Moles/Vol] 10 mmol/L 10 - 25 -[facility] Work Phone: Comment on above: Ordering Provider: Marcus PLATA MANDAT 33202 Arterial patency Wrist artery --pre arterial puncture Weak Pulse [facility] Work Phone: Comment on above: Ordering Provider: T CESARS MANDAT 54956 Inhaled oxygen concentration 100 % 21 - 100 [facility] Work Phone: Comment on above: Ordering Provider: T HOMAS MANDAT 03642 2.0 mmol/L -2.0 - 3.0 [facility] Work Phone: Comment on above: Ordering Provider: T HOMAS MANDAT 59183 91 % below low threshold 94 - 100 [facility] Work Phone: Comment on above: Ordering Provider: T HOMAS MANDAT 54276 Non Rebreather [facility] Work Phone: Comment on above: Ordering Provider: Marcus CESARDarya JORDAN 39092 L Brachial [facility] Work Phone: Comment on above: Ordering Provider: Marcus JORDAN 13738 200 1 [facility] Work Phone: 10 1 -[facility] Work Phone: 78 1 -[facility] Work Phone: [phone] 1 -[facility] Work Phone: [phone] 1 -[facility] Work Phone: [phone] 1 -[facility] Work Phone: [phone] 1 [facility] Work Phone: [phone] 1 -[facility] Work Phone: [phone] 1 [facility] Work Phone: [email or web address] 1: [email or web address]/musescripts/musew eb.dll?RetrieveTestByD ateTime?[email or web address]=6612 25160 [facility] Work Phone: [phone] 1 [facility] Work Phone: Ventricular-paced rhythm with occasional premature ventricular complexes -[facility] Work Phone: [phone] [facility] Work Phone: >60 >60 -[facility] Work Phone: Comment on above: CALCULATIONS OF GALILEA MATED GFR ARE PERFORMED USING THE MDRD STUDY EQUATION FOR THE IDMS-TRACEABLE CREATININE METHODS. CLIN CHEM 2007;53:766-72 Troponin I, Serumon 06-30-19 20 Troponin I.cardiac [Mass/Vol] 0.04 ng/mL Critically high See Below -[facility] Work Phone: Comment on above: Reference Range: [...] is performed using different testing methodology at [facility] than at [facility]. Direct result comparisons should only be made within the same method. Called- RB to kelsea bee, 06/30/2019 10:35 Called- RB to kelsea siu, 06/30/2019 10:35 Hematologyon 06-29-2019 Hematocrit (Bld) [Volume fraction] 39.7 % See Below [facility] Work Phone: Comment on above: Reference Range: 36. 0 - 46.0 Hemoglobin (Bld) [Mass/Vol] 12.7 g/dL See Below [facility] Work Phone: Comment on above: Reference Range: 12. 0 - 16.0 MCV (RBC) [Entitic vol] 91 fL 80 - 100 [facility] Work Phone: Platelets (Bld) [#/Vol] 239 {x10E9/L} 150 - 450 [facility] Work Phone: RBC (Bld) [#/Vol] 4.35 {x10E12/L} See Below [facility] Work Phone: Comment on above: Reference Range: 4.0 0 - 5.20 WBC (Bld) [#/Vol] 16.5 {x10E9/L} above high threshold 4.4 - 11.3 [facility] Work Phone: WBC (Bld) [#/Vol] 0.0 {/100_WBC} 0.0 - 0.0 [facility] Work Phone: Lactate, Levelon 06-29-2019 Lactate [Moles/Vol] 2.4 mmol/L above high threshold 0.4 - 2.0 [facility] Work Phone: Comment on above: Venipuncture immedia tely after or during the administration of Metamizole may lead to falsely low results. Testing should be performed immediately prior to Metamizole dosing. Ordering Provider: Marcus JORDAN 69161 Lactate [Moles/Vol] 3.9 mmol/L above high threshold 0.4 - 2.0 [facility] Work Phone: Comment on above: Venipuncture immedia tely after or during the administration of Metamizole may lead to falsely low results. Testing should be performed immediately prior to Metamizole dosing. Magnesium, Serumon 0 Magnesium [Mass/Vol] 1.87 mg/dL See Below [facility] Work Phone: Comment on above: Reference Range: 1.6 0 - 2.40 Metabolic Panelon 06-29-2019 Anion gap [Moles/Vol] 13 mmol/L 10 - 20 [facility] Work Phone: Calcium [Mass/Vol] 9.4 mg/dL 8.6 - 10.3 [facility] Work Phone: Chloride [Moles/Vol] 105 mmol/L 98 - 107 [facility] Work Phone: CO2 [Moles/Vol] 24 mmol/L 21 - 32 [facility] Work Phone: Creatinine [Mass/Vol] 0.73 mg/dL See Below [facility] Work Phone: Comment on above: Reference Range: 0.5 0 - 1.05 Glucose [Mass/Vol] 160 mg/dL above high threshold 74 - 99 [facility] Work Phone: Potassium [Moles/Vol] 4.0 mmol/L 3.5 - 5.3 [facility] Work Phone: Sodium [Moles/Vol] 138 mmol/L 136 - 145 [facility] Work Phone: Urea nitrogen [Mass/Vol] 14 mg/dL 6 - 23 [facility] Work Phone: Otheron 06-29-2019 XR Chest 2 views Interpreted by: ARIELLE MARTEL06/29/19 15:43MRN: [id number] Name: PAU MUÑOZ STUDY:TH CHEST 2 VIEW [...] signed by: ARIELLE MARTEL 06/29/19 15:43 Normal [facility] Work Phone: Comment on above: Ordering Provider: Marcus JORDAN 43362 RSV RNA ULISES+probe Ql (Unsp spec) NOT DETECTED See Below [facility] Work Phone: Comment on above: Reference Range: Not Detected Respiratory virus testing is performed routinely by PCR for Influenza A/B and RSV. Not Detected results do not preclude Influenza A/B or RSV infections since the adequacy of sample collection or low viral burden may impact the clinical sensitivity of this test method. NOT DETECTED See Below [facility] Work Phone: Comment on above: SOURCE: Nasal, [...] 14.6 % above high threshold See Below [facility] Work Phone: Comment on above: Reference Range: 11. 5 - 14.5 MCHC (RBC) [Mass/Vol] 32.0 g/dL See Below [facility] [facility] Work Phone: Comment on above: Reference Range: 32. 0 - 36.0 >60 >60 [facility] Work Phone: Comment on above: CALCULATIONS OF GALILEA MATED GFR ARE PERFORMED USING THE MDRD STUDY EQUATION FOR THE IDMS-TRACEABLE CREATININE METHODS. CLIN CHEM 2007;53:766-72 Hematologyon 05-21-2019 INR Coag (PPP) [Relative time] 1.0 {INR} 0.9 - 1.1 [facility] Work Phone: PT Coag (PPP) [Time] 11.4 {sec} 9.7 - 12.7 MP-S elect [facility] Work Phone: Otheron [phone] 1 -[facility] Work Phone: [phone] -[facility] Work Phone: [phone] -[facility] Work Phone: [phone] -[facility] Work Phone: [phone] -[facility] Work Phone: -[phone] [employer] [facility] Work Phone: [phone] [employer] [facility] Work Phone: [phone] [employer] [facility] Work Phone: [phone] [employer] [facility] Work Phone: [phone] [employer] [facility] Work Phone: [phone] [employer] [facility] Work Phone: Ventricular-paced rhythm with occasional premature ventricular complexes [employer] [facility] Work Phone: [email or web address] [employer] [facility] Work Phone: Albumin/Creatinine Ratio, Ur on 12-07-2017 Albumin/Creatinine Ratio 15.000 mg/g Normal [facility] Comment on above: Performed By: #### B MARCOS HANNAH ####[facility] [place] [address] Creatinine, Urine Random $ 32.5 mg/dL Normal [facility] Comment on above: Performed By: #### B DIANE HANNAH1C ####[facility] [place] [address] 00576 Ur Microalbumin, Random < 5.0 Normal [facility] Comment on above: Performed By: #### B MARCOS HANNAH ####[facility] [place] [address] 19063 Complete Blood Count w/diff $$on 12-07-2017 Basophils Auto #/vol (Bld) 0.1 10 /uL Normal 0.04-0.9 [facility] Comment on above: Performed By: #### B DIANE HANNAH1C ####[address] [address] Basophils/100 WBC Auto (Bld) 1 % Normal 0-1 [facility] Comment on above: Performed By: #### B BRIELLE, MARCOS ####[facility] [place] [address] 44384 Eosinophils Auto #/vol (Bld) 0.2 10 3/uL Normal 0.03-0.6 [facility] Comment on above: Performed By: #### Raymond HANNAH, MARCOS ####[address] [address] Eosinophils/100 WBC Auto (Bld) 3 % Normal 0-3 [facility] Comment on above: Performed By: #### Raymond HANNAH, MARCOS ####[address] [address] Erythrocyte distribution width Auto Ratio (RBC) 14.3 % Normal 11.5-14.5 [facility] Comment on above: Performed By: #### MARCOS Andrade MP ####[address] [address] Hematocrit Auto Volume Fraction (Bld) 43.1 % Normal 35-47 [facility] Comment on above: Performed By: #### Raymond HANNAH, MARCOS ####[facility] [place] [address] 57079 Hemoglobin mass conc (Bld) 14.2 g/dL Normal 12.0-16.0 [facility] Comment on above: Performed By: #### Raymond HANNAH, MARCOS ####[facility] [place] [address] 92103 Immature Gran# (Auto) 0.0 10 3/uL Normal [facility] Comment on above: Performed By: #### Raymond HANNAH, MARCOS ####[facility] [place] [address] 41993 Immature granulocytes #/vol (Bld) 0.3 % Normal 0.0-0.9 [facility] Comment on above: Performed By: #### B MARCOS HANNAH ####[facility] [place] [address] 73629 Lymphocytes Auto #/vol (Bld) 2.7 10 3/uL Normal 1-3.5 [facility] Comment on above: Performed By: #### B BRIELLE, HA1C ####[facility] [place] [address] 63449 Lymphocytes/100 WBC Auto (Bld) 36 % Normal 24-44 [facility] Comment on above: Performed By: #### B MARCOS HANNAH ####[facility] [place] [address] 19034 MCH Auto Entitic mass (RBC) 29.4 pg Normal 27-34 [facility] Comment on above: Performed By: #### MARCOS Andrade MP ####[address] [address] MCH Auto Entitic mass (RBC) 32.9 g/dL Low 33-37 [facility] Comment on above: Performed By: #### MARCOS Andrade MP ####[address] [address] MCV Auto Entitic volume (RBC) 89.2 fL Normal 80-100 [facility] Comment on above: Performed By: #### MARCOS Andrade MP ####[address] [address] Monocytes Auto #/vol (Bld) 0.7 10 3/uL Normal 0.04-0.9 [facility] Comment on above: Performed By: #### MARCOS Andrade MP ####[facility] [place] [address] 24097 Monocytes/100 WBC Auto (Bld) 10 % High 1-8 [facility] Comment on above: Performed By: #### Raymond HANNAH HAJune ####[facility] [place] [address] 15178 Neutrophils Auto #/vol (Bld) 3.8 10 3/uL Normal 1.8-7.0 [facility] Comment on above: Performed By: #### B MARCOS HANNAH ####[facility] [place] [address] 61965 Neutrophils/100 WBC Auto (Bld) 50 % Normal 42-76 [facility] Comment on above: Performed By: #### B BRIELLE, MARCOS ####[facility] [place] [address] 40747 Nucleated RBC/100 WBC Ratio (Bld) 0.0 % Normal 0.0-0.0 [facility] Comment on above: Performed By: #### B BRIELLE, MARCOS ####[address] [address] Platelet mean volume Auto Entitic volume (Bld) 10.6 fL High 7.4-10.4 [facility] Comment on above: Performed By: #### B MARCOS HANNAH ####[facility] [place] [address] 91332 Platelets Auto #/vol (Bld) 202 10 3/uL Normal 150-400 [facility] Comment on above: Performed By: #### B BRIELLE, MARCOS ####[facility] [place] [address] 88824 RBC Auto #/vol (Bld) 4.83 10 6/uL Normal 4.2-5.4 [facility] Comment on above: Performed By: #### B BRIELLE, HAJune ####[facility] [place] [address] 21031 WBC Auto #/vol (Bld) 7.5 10 3/uL Normal 4.0-11.0 [facility] Comment on above: Performed By: #### B BRIELLE, HA1C ####[facility] [place] [address] Comprehensive Metabolic Pane milton 12-07-2017 Albumin mass conc 4.1 g/dL Normal 3.4-5.0 [facility] Comment on above: Performed By: #### B MARCOS HANNAH ####[facility] [place] [address] ALP enzyme act/vol 69 U/L Normal 33-136 [facility] Comment on above: Result Comment: Plea se note new reference range as of September. Performed By: #### B MARCOS HANNAH ####[facility] [place] [address] 35587 ALT enzyme act/vol 18 U/L Normal 4-45 [facility] Comment on above: Result Comment: Plea se note new reference range as of September. Performed By: #### B MARCOS HANNAH ####[address] [address] Anion gap 3 molar conc 12.2 mmol/L Normal 10-20 [facility] Comment on above: Performed By: #### B MARCOS HANNAH ####[facility] [place] [address] 09575 AST enzyme act/vol 25 U/L Normal 9-39 [facility] Comment on above: Result Comment: Plea se note new reference range as of September. Performed By: #### B MARCOS HANNAH ####[facility] [place] [address] 24173 Bilirubin Ql (U) 0.5 mg/dL Normal 0.0-1.2 [facility] Comment on above: Performed By: #### MARCOS Andrade MP ####[facility] [place] [address] 23426 Calcium mass conc 9.6 mg/dL Normal 8.6-10.3 [facility] Comment on above: Result Comment: Plea se note new reference range as of September. Performed By: #### B MARCOS HANNAH ####[facility] [place] [address] Chloride molar conc 103 mmol/L Normal 98-107 [facility] Comment on above: Performed By: #### B MARCOS HANNAH ####[facility] [place] [address] [place] [address] CO2 molar conc 27 mmol/L Normal 21-32 [facility] Comment on above: Performed By: #### B MARCOS HANNAH ####[facility] [place] [address] 21864 Creatinine mass conc 0.81 mg/dL Normal 0.50-1.05 [facility] Comment on above: Result Comment: Chaya trevizo note new reference range as of September. Performed By: #### MARCSO Andrade MP ####[facility] [place] [address] GFR () >60 Normal [facility] Comment on above: Performed By: #### MARCOS Andrade MP ####[facility] [place] [address] 62450 GFR (Non ) >60 Normal [facility] Comment on above: Result Comment: eGFR Units of measure: mL/min/1.73 m 2 Performed By: #### MARCOS Andrade MP ####[facility] [place] [address] Glucose mass conc 103 mg/dL High 74-99 [facility] Comment on above: Performed By: #### MARCOS Andrade MP ####[facility] [place] [address] 32742 Potassium molar conc 5.2 mmol/L Normal 3.5-5.3 [facility] Comment on above: Performed By: #### MARCOS Andrade MP ####[facility] [place] [address] 02238 Protein mass conc 7.2 g/dL Normal 6.4-8.2 [facility] Comment on above: Performed By: #### MARCOS Andrade MP ####[facility] [facility] [place] [address] Sodium molar conc 137 mmol/L Normal 136-145 [facility] Comment on above: Performed By: #### MARCOS Andrade MP ####[address] [place] [address] Urea nitrogen mass conc (Bld) 14 mg/dL Normal 6-23 [facility] Comment on above: Result Comment: Chaya trevizo note new reference range as of September. Performed By: #### B MARCOS HANNAH ####[address] [place] [address] Hemoglobin A1con 12-07-2017 Hemoglobin A1c/Hemoglobin.total mass fraction (Bld) 6.0 % Normal 4.4-6.3 [facility] Comment on above: Performed By: #### MARCOS Andrade MP ####[address] [place] [address] Thyroid Stimulating Hormoneo n 12-07-2017 Thyrotropin Qn 2.16 m[IU]/L Normal 0.44-3.98 [facility] Comment on above: Performed By: #### MARCOS Andrade MP ####[address] [place] [address] Vitamin Don 12-07-2017 Vitamin D Pending Normal [facility] Comment on above: Performed By: #### MARCOS Andrade MP ####[facility] [place] [address], [place] [address] Immunoelectrophoresis, Serum on 09-14-2017 Albumin mass conc 3.9 g/dL Normal 3.4-5.0 [facility] Comment on above: Performed By: #### B MP, HA1C ####[facility] [place] [address] Alpha 1 Globulin 0.3 g/dL Normal 0.2-0.6 [facility] Comment on above: Performed By: #### B BRIELLE, HA1C ####[facility] [place] [address] Alpha 2 Globulin 0.9 g/dL Normal 0.4-1.1 [facility] Comment on above: Performed By: #### B BRIELLE, HA1C ####[facility] [place] [address] 01293 Beta Globulin 1.1 g/dL Normal 0.5-1.2 [facility] Comment on above: Performed By: #### B BRIELLE, HA1C ####[facility] [place] [address] 64937 Gamma Globulin 1.4 g/dL Normal 0.5-1.4 [facility] Comment on above: Performed By: #### B BRIELLE, HA1C ####[facility] [place] [address] 7[address]68 GAYLE Path Review HuiOQUENDO Normal [facility] Comment on above: Result Comment: By h er/his signature above, the Pathologistlisted as making the final interpretationcertifies that she/he has personally reviewedthis case. Performing Site: [facility] - [address] [place], [place] Performed By: #### B BRIELLE, HA1C ####[facility] [place] [address] 29483 Immunofixation Interpretation NORMAL Normal [facility] Comment on above: Result Comment: Perf orming Site: [facility] - [address] [place], [place] Performed By: #### B BRIELLE, HA1C ####[facility] [place] [address] [phone] Interpretation NORMAL Normal [facility] Comment on above: Performed By: #### B BRIELLE, HA1C ####[facility] [place] [address] [phone] Monoclonal Protein NONE DETECTED Normal [facility] Comment on above: Performed By: #### B BRIELLE, HA1C ####[facility] [place] [address] SPE Path Review R.OQUENDO Normal [facility] Comment on above: Result Comment: By h er/his signature above, the Pathologistlisted as making the final interpretationcertifies that she/he has personally reviewedthis case. Performing Site: [facility] - [address] [place], [place] Performed By: #### B BRIELLE, HA1C ####[facility] [place], [place] [id number] Mammo Screening Bilat CAD To yee 09-14-2017 Mammo Screening Bilat CAD [facility] Patient: PAU MUÑOZ [address] [facility] MR#: [id number] [place], [place] [address] : [address] Ori Salomon MD Dept: Diagnostic Imaging Loc: [facility]PC DI REPORT Service Dt:09/14/17 Report#: [id number] Adm Dt: 09/14/17 Dis Dt: Comments: STUDY: 3D digital bilateral screening mammograms with CAD and tomosynthesis were obtained; 09/14/2017 2:05 pm ACCESSION NUMBER(S): [id number] ORDERING CLINICIAN: Ori Salomon INDICATION: Screening. COMPARISON: [...] by: Omkar Yin 09/14/2017 2:18 PM Normal [facility] Immunoglobulins, Quanton Immunoglobulin A 440 mg/dL Abnormal 70-400 [facility] Comment on above: Result Comment: MONO CLONAL PROTEINS MAY CAUSE FALSELY LOWRESULTS IN THIS ASSAY. SERUM PROTEINELECTROPHORESIS SHOULD BE DONE THEFIRST TEST TO EVALUATE MONOCLONAL GAMMOPATHY. Performed By: #### B DIANE HANNAH1C ####[facility] [place] [address] Immunoglobulin G 1340 mg/dL Normal 700-1600 [facility] Comment on above: Result Comment: MONO CLONAL PROTEINS MAY CAUSE FALSELY LOWRESULTS IN THIS ASSAY. SERUM PROTEINELECTROPHORESIS SHOULD BE DONE THEFIRST TEST TO EVALUATE MONOCLONAL GAMMOPATHY. Performed By: #### DIANE Andrade MP1C ####[place] [address] [place] [address] Immunoglobulin M 111 mg/dL Normal 40-230 [facility] Comment on above: Result Comment: MONO CLONAL PROTEINS MAY CAUSE FALSELY LOWRESULTS IN THIS ASSAY. SERUM PROTEINELECTROPHORESIS SHOULD BE DONE THEFIRST TEST TO EVALUATE MONOCLONAL GAMMOPATHY.Performing Site: [facility] - [address] [place], [place] Performed By: #### B MARCOS HANNAH ####[facility] [place] [address] 20148 Complete Blood Count w/diff $$on 09-12-2017 Basophils Auto #/vol (Bld) 0.1 10 /uL Normal 0.04-0.9 [facility] Comment on above: Performed By: #### MARCOS Andrade MP ####[facility] [place] [address] Basophils/100 WBC Auto (Bld) 1 % Normal 0-1 [facility] Comment on above: Performed By: #### MARCOS Andrade MP ####[facility] [place] [address] 39862 Eosinophils Auto #/vol (Bld) 0.2 10 3/uL Normal 0.03-0.6 [facility] Comment on above: Performed By: #### MARCOS Andrade MP ####[address] [address] Eosinophils/100 WBC Auto (Bld) 3 % Normal 0-3 [facility] Comment on above: Performed By: #### MARCOS Andrade MP ####[facility] [place] [address] 81050 Erythrocyte distribution width Auto Ratio (RBC) 14.1 % Normal 11.5-14.5 [facility] Comment on above: Performed By: #### MARCOS Andrade MP ####[facility] [place] [address]887 Hematocrit Auto Volume Fraction (Bld) 44.1 % Normal 35-47 [facility] Comment on above: Performed By: #### MARCOS Andrade MP ####[facility] [place] [address] 13077 Hemoglobin mass conc (Bld) 14.3 g/dL Normal 12.0-16.0 [facility] Comment on above: Performed By: #### Raymond HANNAH, HAJune ####[facility] [place] [address] [place] [address] Immature Gran# (Auto) 0.0 10 3/uL Normal [facility] Comment on above: Performed By: #### MARCOS Andrade MP ####[facility] [place] [address] 48438 Immature granulocytes #/vol (Bld) 0.3 % Normal 0.0-0.9 [facility] Comment on above: Performed By: #### B BRIELLE, MARCOS ####[facility] [place] [address] 89970 Lymphocytes Auto #/vol (Bld) 2.3 10 3/uL Normal 1-3.5 [facility] Comment on above: Performed By: #### MARCOS Andrade MP ####[address] [address] Lymphocytes/100 WBC Auto (Bld) 29 % Normal 24-44 [facility] Comment on above: Performed By: #### MARCOS Andrade MP ####[address] [address] MCH Auto Entitic mass (RBC) 28.9 pg Normal 27-34 [facility] Comment on above: Performed By: #### MARCOS Andrade MP ####[address] [address] MCH Auto Entitic mass (RBC) 32.4 g/dL Low 33-37 [facility] Comment on above: Performed By: #### MARCOS Andrade MP ####[address] [address] MCV Auto Entitic volume (RBC) 89.3 fL Normal 80-100 [facility] Comment on above: Performed By: #### MARCOS Andrade MP ####[address] [address] Monocytes Auto #/vol (Bld) 0.8 10 3/uL Normal 0.04-0.9 [facility] Comment on above: Performed By: #### MARCOS Andrade MP ####[address] [address] Monocytes/100 WBC Auto (Bld) 9 % High 1-8 [facility] Comment on above: Performed By: #### B BRIELLE, HAJune ####[address] [address] Neutrophils Auto #/vol (Bld) 4.6 10 3/uL Normal 1.8-7.0 [facility] Comment on above: Performed By: #### B BRIELLE, HA1C ####[address] [address] Neutrophils/100 WBC Auto (Bld) 58 % Normal 42-76 [facility] Comment on above: Performed By: #### B BRIELLE, MARCOS ####[address] [address] Nucleated RBC/100 WBC Ratio (Bld) 0.0 % Normal 0.0-0.0 [facility] Comment on above: Performed By: #### B BRIELLE, HAJune ####[address] [address] Platelet mean volume Auto Entitic volume (Bld) 9.5 fL Normal 7.4-10.4 [facility] Comment on above: Performed By: #### B BRIELLE, HA1C ####[address] [address] Platelets Auto #/vol (Bld) 259 10 3/uL Normal 150-400 [facility] Comment on above: Performed By: #### B BRIELLE, HA1C ####[address] [address] RBC Auto #/vol (Bld) 4.94 10 6/uL Normal 4.2-5.4 [facility] Comment on above: Performed By: #### B BRIELLE, HA1C ####[address] [address] WBC Auto #/vol (Bld) 8.0 10 3/uL Normal 4.0-11.0 [facility] Comment on above: Performed By: #### B BRIELLE, MARCOS ####[facility] [place] [address] Comprehensive Metabolic Pane milton 09-12-2017 Albumin mass conc 3.7 g/dL Normal 3.4-5.0 [facility] Comment on above: Performed By: #### B BRIELLE, MARCOS ####[facility] [place] [address] 24766 ALP enzyme act/vol 84 U/L Normal 50-136 [facility] Comment on above: Performed By: #### B BRIELLE, MARCOS ####[facility] [place] [address] 39290 ALT enzyme act/vol 28 U/L Normal 12-78 [facility] Comment on above: Performed By: #### B BRIELLE, DIANE1C ####[facility] [place] [address] 28525 Anion gap 3 molar conc 15.5 mmol/L Normal [facility] Comment on above: Performed By: #### B BRIELLE, MARCOS ####[facility] [place] [address] 53398 AST enzyme act/vol 29 U/L Normal 15-37 [facility] Comment on above: Performed By: #### B BRIELLE, MARCOS ####[facility] [place] [address] 28878 Bilirubin Ql (U) 0.3 mg/dL Normal 0.2-1.0 [facility] Comment on above: Performed By: #### B BRIELLE, HAJune ####[facility] [place] [address] [place] [address] Calcium mass conc 9.3 mg/dL Normal 8.5-10.1 [facility] Comment on above: Performed By: #### B BRIELLE, HAJune ####[facility] [facility] [place] [address] Chloride molar conc 103 mmol/L Normal 98-107 [facility] Comment on above: Performed By: #### B BRIELLE, HA1C ####[facility] [facility] [place] [address] CO2 molar conc 25 mmol/L Normal 21-32 [facility] Comment on above: Performed By: #### B BRIELLE, HA1C ####[facility] [place] [address]164 Creatinine mass conc 0.7 mg/dL Normal 0.6-1.3 [facility] Comment on above: Performed By: #### B BRIELLE, HA1C ####[facility] [place] [address], [place] [address] GFR () >60 Normal [facility] Comment on above: Performed By: #### B BRIELLE, HAJune ####[facility] [place] [address], [place] [address] GFR (Non ) >60 Normal [facility] Comment on above: Result Comment: eGFR Units of measure: mL/min/1.73 m 2 Performed By: #### B BRIELLE, HA1C ####[facility] [facility] [place] [address] Glucose mass conc 105 mg/dL Normal 74-106 [facility] Comment on above: Performed By: #### B BRIELLE, HA1C ####[facility] [place] [address] 24694 Potassium molar conc 4.5 mmol/L Normal 3.5-5.1 [facility] Comment on above: Performed By: #### B BRIELLE, HA1C ####[facility] [place] [address] Protein mass conc 7.7 g/dL Normal 6.4-8.2 [facility] Comment on above: Performed By: #### Raymond HANNAH, MARCOS ####[facility] [place] [address] 36336 Sodium molar conc 139 mmol/L Normal 136-145 [facility] Comment on above: Performed By: #### B BRIELLE, MARCOS ####[facility] [place] [address] 40150 Urea nitrogen mass conc (Bld) 12 mg/dL Normal 7-18 [facility] Comment on above: Performed By: #### MARCOS Andrade MP ####[facility] [place] [address] 9[address] Ferritinon 09-12-2017 Ferritin 67.7 ng/mL Normal 8.0-252.0 [facility] Comment on above: Performed By: #### MARCOS Andrade MP ####[facility] [place] [address] 849[address] Immunoelectrophoresis, Serum on 09-12-2017 Protein mass conc 7.6 g/dL Normal 6.4-8.2 [facility] Comment on above: Result Comment: Zurdo soto Site: [facility] [address] [id number] Performed By: #### Raymond HANNAH, MARCOS ####[facility] [place] [address]55 Iron Profileon 09-12-2017 % Iron Saturation 13 % Low 16-35 [facility] Comment on above: Performed By: #### MARCOS Andrade MP ####[facility] [place] [address] 60725 Iron mass conc 50 ug/dL Normal 50-170 [facility] Comment on above: Performed By: #### MARCOS Andrade MP ####[facility] [place] [address] 18346 Total Iron Binding Capacity 371 ug/dL Normal 250-450 [facility] Comment on above: Performed By: #### B MP, HA1C ####[facility] [place] [address] 02271 B-type Natriuretic Peptideon 06-25-2017 Natriuretic peptide B mass conc (Bld) 47.51 pg/mL Normal 0-100 [facility] Comment on above: Performed By: #### U R, PTINR, TROP, FLUNOW, BNP ####[facility] [place] [address] Complete Blood Count w/diff $$on 06-25-2017 Platelets Auto #/vol (Bld) Adequate Normal [facility] Comment on above: Performed By: #### C JAG, CMP12, LA ####[facility] [place] [address]8761 Atypical Lymph 2 Normal [facility] Comment on above: Performed By: #### C JAG, CMP12, LA ####[facility] [place] [address] 46060 Band form neutrophils/100 WBC Manual cnt (Bld) 8 % Normal 0-8 [facility] Comment on above: Performed By: #### C JAG, CMP12, LA ####[facility] [place] [address] Eosinophils Auto #/vol (Bld) 0.2 10 3/uL Normal [facility] Comment on above: Performed By: #### C BC, CMP12, LA ####[facility] [place] [address] 93716 Eosinophils/100 WBC Auto (Bld) 3 % Normal 0-3 [facility] Comment on above: Performed By: #### C BC, CMP12, LA ####[facility] [place] [address] 10494 Lymphocytes Auto #/vol (Bld) 1.7 10 3/uL Normal [facility] Comment on above: Performed By: #### C JAG CMP12, LA ####[facility] [place] [address] 68180 Lymphocytes/100 WBC Auto (Bld) 23 % Low 24-44 [facility] Comment on above: Performed By: #### Ana RM CMP12, LA ####[address] [address] Monocytes Auto #/vol (Bld) 1.1 10 3/uL Normal [facility] Comment on above: Performed By: #### C JAG CMPNitin, LA ####[address] [address] Monocytes/100 WBC Auto (Bld) 15 % High 1-8 [facility] Comment on above: Performed By: #### Ana RM CMPNitin, LA ####[address] [address] Neutrophils Auto #/vol (Bld) 4.2 10 3/uL Normal [facility] Comment on above: Performed By: #### SHAINA GARDUNO, LA ####[address] [address] Neutrophils/100 WBC Auto (Bld) 51 % Normal 42-76 [facility] Comment on above: Performed By: #### Ana RM CMP12, LA ####[address] [address] Comprehensive Metabolic Pane milton 06-25-2017 Albumin mass conc 3.7 g/dL Normal 3.4-5.0 [facility] Comment on above: Performed By: #### Ana RM CMP12, LA ####[address] [address] ALP enzyme act/vol 86 U/L Normal 50-136 [facility] Comment on above: Performed By: #### Ana RM CMP12, LA ####[facility] [place] [address] ALT enzyme act/vol 29 U/L Normal 12-78 [facility] Comment on above: Performed By: #### C BC, CMP12, LA ####[facility] [place] [address] 70933 Anion gap 3 molar conc 13.3 mmol/L Normal [facility] Comment on above: Performed By: #### C BC, CMP12, LA ####[facility] [place] [address] 67267 AST enzyme act/vol 36 U/L Normal 15-37 [facility] Comment on above: Performed By: #### C BC, CMP12, LA ####[facility] [place] [address] 76760 Bilirubin Ql (U) 0.4 mg/dL Normal 0.2-1.0 [facility] Comment on above: Performed By: #### C BC, CMP12, LA ####[facility] [place] [address] 17465 Calcium mass conc 8.8 mg/dL Normal 8.5-10.1 [facility] Comment on above: Performed By: #### C BC, CMP12, LA ####[facility] [place] [address] 18030 Chloride molar conc 103 mmol/L Normal 98-107 [facility] Comment on above: Performed By: #### C BC, CMP12, LA ####[facility] [place] [address] 28112 CO2 molar conc 26 mmol/L Normal 21-32 [facility] Comment on above: Performed By: #### C BC, CMP12, LA ####[facility] [place] [address] 26131 Creatinine mass conc 0.9 mg/dL Normal 0.6-1.3 [facility] Comment on above: Performed By: #### C SHAINA RM, SALLY ####[facility] [place] [address] 76665 GFR () >60 Normal [facility] Comment on above: Performed By: #### SHAINA GARDUNO, LA ####[address] [address] GFR (Non ) >60 Normal [facility] Comment on above: Result Comment: eGFR Units of measure: mL/min/1.73 m 2 Performed By: #### C SHAINA RM, LA ####[address] [address] Glucose mass conc 124 mg/dL High 74-106 [facility] Comment on above: Performed By: #### SHAINA GARDUNO, LA ####[address] [address] Potassium molar conc 4.3 mmol/L Normal 3.5-5.1 [facility] Comment on above: Performed By: #### C SHAINA RM, LA ####[address] [address] Protein mass conc 7.8 g/dL Normal 6.4-8.2 [facility] Comment on above: Performed By: #### SHAINA GARDUNO, LA ####[address] [address] Sodium molar conc 138 mmol/L Normal 136-145 [facility] Comment on above: Performed By: #### SHAINA GARDUNO, LA ####[address] [address] Urea nitrogen mass conc (Bld) 16 mg/dL Normal 7-18 [facility] Comment on above: Performed By: #### C SHAINA RM, SALLY ####[facility] [place], [place] [address] Troponin Ion 06-25-2017 Troponin I.cardiac mass conc ng/mL Normal 0.00-0.045 [facility] Comment on above: Performed By: #### U R, PTINR, TROP, FLUNOW, BNP ####[facility] [place], [place] [address] Chest Xray 2 views (PA Lat)o n 06-24-2017 Chest Xray 2 views (PA Lat) [facility] Patient: PAU MUÑOZ [address] [facility] MR#: [id number] [place], [place] [address] : [address] Heather Neff DO, Resident Dept: Diagnostic Imaging Loc: 1EDA DI REPORT Service Dt:06/24/17 Report#: [id number] Adm Dt: 06/24/17 Dis Dt: Comments: STUDY: CR Chest Xray 2 views (PA Lat); 06/24/2017 9:10 pm INDICATION: Fever. COMPARISON: Chest radiograph 05/06/2016 ACCESSION NUMBER(S): [id number] ORDERING CLINICIAN: Heather Neff FINDINGS: Redemonstrated midline [...] by: Marnie Robles 06/24/2017 9:21 PM Normal [facility] Complete Blood Count w/diff $$on 06-24-2017 Diff Type Manual Normal [facility] Comment on above: Performed By: #### C BC, CMP12, LA ####[facility] [place] [address] Erythrocyte distribution width Auto Ratio (RBC) 14.5 % Normal 11.5-14.5 [facility] Comment on above: Performed By: #### C SHAINA RM LA ####[facility] [place] [address] Hematocrit Auto Volume Fraction (Bld) 44.0 % Normal 35-47 [facility] Comment on above: Performed By: #### SHAINA GARDUNO, LA ####[facility] [place] [address] 46427 Hemoglobin mass conc (Bld) 14.6 g/dL Normal 12.0-16.0 [facility] Comment on above: Performed By: #### C SHAINA RM, LA ####[address] [address] MCH Auto Entitic mass (RBC) 29.6 pg Normal 27-34 [facility] Comment on above: Performed By: #### SHAINA GARDUNO, LA ####[address] [address] MCH Auto Entitic mass (RBC) 33.2 g/dL Normal 33-37 [facility] Comment on above: Performed By: #### C SHAINA RM, LA ####[facility] [place] [address] 78627 MCV Auto Entitic volume (RBC) 89.1 fL Normal 80-100 [facility] Comment on above: Performed By: #### C SHAINA RM, LA ####[facility] [place] [address]1995 Platelet mean volume Auto Entitic volume (Bld) 9.8 fL Normal 7.4-10.4 [facility] Comment on above: Performed By: #### Ana RM CMP12, LA ####[facility] [place] [address] 42388 Platelets Auto #/vol (Bld) 203 10 3/uL Normal 150-400 [facility] Comment on above: Performed By: #### C MALU RM12, SALLY ####[facility] [place] [address] RBC Auto #/vol (Bld) 4.94 10 6/uL Normal 4.2-5.4 [facility] Comment on above: Performed By: #### C JAG CMP12, LA ####[facility] [place] [address] WBC Auto #/vol (Bld) 7.2 10 3/uL Normal 4.0-11.0 [facility] Comment on above: Performed By: #### Ana RM CMP12, SALLY ####[facility] [place] [address] ED Visit Summaryon 8 ED Visit Summary [facility] Patient: PAU MUÑOZ [address] [facility] MR#: [id number] [place], [place] [address] : 1950 [address] : Dept: Emergency Department Loc: 1EDA ER Physician Documentation Service Dt: 06/24/17 Report#: [id number] Adm Dt: 06/24/17 Dis Dt: 06/24/17 Patient [...] Total Critical Care Time (min): 0 Normal [facility] Influenza A/B Antigen Rapido n 06-24-2017 Influenza A/B Antigen Rapid ---- RUN DATE: 06/24/17 [facility] LAB LIVE PAGE 1 RUN TIME: 2200 Specimen Inquiry ---- PATIENT: PAU MUÑOZ ACCT: [id number] LOC: 1EDA U: [id number] AGE/SX: 67/F ROOM: RE06/24/[address]: Paul Muller MD : 1950 BED: DIS: STATUS: REG ER TLOC: ---- SPEC #: [id number] HOPE: 06/24/17 STATUS: COMP REQ #: [id number] RECD: 06/24/[address]: Heather Neff DO SOURCE: Nasopharyn ENTR: 06/24/17 [facility] DR: Ori Salomon [facility] Timothy Palacio Sheldon MD ORDERED: Influenza A/B [...] the test. ---- END OF REPORT Normal [facility] Comment on above: Performed By: #### U R, PTINR, TROP, FLUNOW, BNP ####[address] [address] Lactic Acidon 06-24-2017 Lactate molar conc 1.5 mmol/L Normal 0.4-2.0 [facility] Comment on above: Performed By: #### C BC, CMP12, LA ####[address] [address] Protime INRon 06-24-2017 INR Coag RelTime (PPP) 1.4 {INR} High 0.9-1.1 [facility] Comment on above: Result Comment: Chaya trevizo note new reference range OF 06/06/2017 Performed By: #### U R, PTINR, TROP, FLUNOW, BNP ####[address] [address] Protein mass conc 15.5 sec High 9.8-12.7 [facility] Comment on above: Result Comment: Chaya trevizo note new reference range OF 06/06/2017 Performed By: #### U R, PTINR, TROP, FLUNOW, BNP ####[address] [address] Urinalysison 06-24-2017 Bilirubin, Urine Negative Normal Negative [facility] Comment on above: Order Comment: Comme nt CVMS Performed By: #### U R, PTINR, TROP, FLUNOW, BNP ####[address] [address] Clarity Nom (U) Clear Normal [facility] Comment on above: Order Comment: Comme nt CVMS Performed By: #### U R, PTINR, TROP, FLUNOW, BNP ####[facility] [place] [address] Color Nom (U) Yellow Normal [facility] Comment on above: Order Comment: Comme nt CVMS Performed By: #### U R, PTINR, TROP, FLUNOW, BNP ####[facility] [place] [address]51 Epithelial Cells Occasional Normal 0-5 [facility] Comment on above: Order Comment: Comme nt CVMS Performed By: #### U R, PTINR, TROP, FLUNOW, BNP ####[facility] [place] [address] Glucose Ql (U) Negative Normal Negative [facility] Comment on above: Order Comment: Comme nt CVMS Performed By: #### U R, PTINR, TROP, FLUNOW, BNP ####[facility] [place] [address] Hemoglobin Test strip Ql (U) Negative Normal Negative [facility] Comment on above: Order Comment: Comme nt CVMS Performed By: #### U R, PTINR, TROP, FLUNOW, BNP ####[facility] [place] [address] Ketones Ql (U) Negative Normal Negative [facility] Comment on above: Order Comment: Comme nt CVMS Performed By: #### U R, PTINR, TROP, FLUNOW, BNP ####[facility] [place] [address] Leukocyte esterase Test strip Ql (U) Negative Normal Negative [facility] Comment on above: Order Comment: Comme nt CVMS Performed By: #### U R, PTINR, TROP, FLUNOW, BNP ####[facility] [place] [address] Mucus, Urine Rare Normal [facility] Comment on above: Order Comment: Comme nt CVMS Performed By: #### U R, PTINR, TROP, FLUNOW, BNP ####[facility] [place] [address] Nitrates, Urine Negative Normal Negative [facility] Comment on above: Order Comment: Comme nt CVMS Performed By: #### U R, PTINR, TROP, FLUNOW, BNP ####[facility] [place] [address]259 pH Test strip (U) 7.0 [pH] Normal 5.0-9.0 [facility] Comment on above: Order Comment: Comme nt CVMS Performed By: #### U R, PTINR, TROP, FLUNOW, BNP ####[facility] [place] [address]336 Protein, Urine Negative Normal Negative [facility] Comment on above: Order Comment: Comme nt CVMS Performed By: #### U R, PTINR, TROP, FLUNOW, BNP ####[facility] [place] [address] Specific [place], Urine 1.021 Normal 1.000-1.030 [facility] Comment on above: Order Comment: Comme nt CVMS Performed By: #### U R, PTINR, TROP, FLUNOW, BNP ####[facility] [place] [address] Urobilinogen, Urine Normal Normal <2.0 [facility] Comment on above: Order Comment: Comme nt CVMS Performed By: #### U R, PTINR, TROP, FLUNOW, BNP ####[facility] [place] [address] RBC, Urine 0 /HPF Normal 0-3 [facility] Comment on above: Order Comment: Comme nt CVMS Performed By: #### U R, PTINR, TROP, FLUNOW, BNP ####[facility] [place] [address] Hemoglobin A1con 06-19-2017 Hemoglobin A1c/Hemoglobin.total mass fraction (Bld) 5.6 % Normal 4.4-6.3 [facility] Comment on above: Performed By: #### H A1C, VITD ####[facility] [place] [address] Vitamin Don 06-19-2017 Vitamin D 12.76 ng/mL Normal [facility] Comment on above: Result Comment: Clas sification of 25 [place] Vitamin D status:Deficiency: <20 ng/mLInsufficiency/Moderate Deficiency: 20-30 ng/mLSufficiency/Optimal Level: 30-100 ng/mLToxicity: >100 ng/mL Performed By: #### H A1C, VITD ####[facility] [place] [address] Lexascan Myoview SPECT/Stres son 03-31-2017 Lexascan Myoview SPECT/Stress [facility] Patient: PAU MUÑOZ [address] [facility] MR#: [id number] [place], [place] [address] : 1950 [address] Timothy Palacio DO Dept: Diagnostic Imaging Loc: [id number] DI REPORT Service Dt:03/29/17 Report#: [id number] Adm Dt: 03/29/17 Dis Dt: Comments: STUDY: NM Lexascan Myoview SPECT/Stress; 03/29/2017 10:22 am INDICATION: SOB. COMPARISON: None. ACCESSION NUMBER(S): [id number] ORDERING CLINICIAN: Timothy Palacio TECHNIQUE: DIVISION OF [...] by: Felisha Perry 03/31/2017 12:49 PM Normal [facility] Echocardiogramon 03-29-2017 Echocardiogram [facility] , [address] [place] [address] and TRANSTHORACIC ECHOCARDIOGRAM REPORT Patient Name: PAU Quinones [place] Reading Physician: JAKE Perry MD Study Date: 03/29/2017 Referring Physician: Timothy Palacio MRN/PID: [id number] PCP: Patient Department Location: [facility] [place] Accession/Order#: [id number] Patient Location: [address] Date of : 1950 66 years Nurse: Gender: F Leadite Man: Nigel Rivera Admission Status: Outpatient CC Report to: JAKE Perry MD Height: 152.40 cm CC Report to: Weight: 83.91 kg CC Report to: BSA: 1.81 m2 Study Type: Echo Diagnosis/ICD: R06.02 - Shortness of breath Indication: Dyspnea Procedure/CPT: Echo Complete w/Full Doppler (03234) Patient History: BMI: Obese >30 Pertinent History: [...] at 9:34:56 AM Wall Scoring Final Normal [facility] EP Post Proc Progress Noteon 03-17-2017 EP Post Proc Progress Note [facility] Patient: PAU MUÑOZ [address] MR#: [id number] [place], [place] [address] : 1950 Ord[address] : Dept: PDOC Loc: CATH EP Post Proc Progress Note Service Dt: 03/17/17 Report#: [id number] Adm Dt: 03/17/17 Dis Dt: - EP Progress Note (post-procedure) Procedure: Cardioversion Diagnosis: Atrial flutter Anesthesia: MAC Result: Successful cardioversion using 150 J synchronized biphasic shock Complications: none Normal [facility] History AND Physicalon 03-17 History AND Physical [facility] Patient: PAU MUÑOZ [address] MR#: [id number] [place], [place] [address] : 1950 [address] Dept: PDOC Loc: CATH History Physical Service Dt: 03/17/17 Report#: [id number] Adm Dt: 03/17/17 Dis Dt: History and [...] [employer] History of a VSD repair at [facility] - Social History Smoking Status: Never smoker [...] Changes noted below: Date/Time Attending Physician Normal [facility] Post-Anesthesia Care Noteon 03-17-2017 Post-Anesthesia Care Note [facility] Patient: PAU MUÑOZ [address] [facility] MR#: [id number] [place], [place] [address] : 1950 [address] Gloria: Dept: PDOC Loc: CATH Procedure Note Service Dt: 03/17/17 Report#: [id number] Adm Dt: 03/17/17 Dis Dt: 03/17/17 Anesthesia DC Evaluation - Discharge Evaluation Anesthesia Discharge Evaluation: Outpatient - Airway Airway: Patient with unassisted respiration(s) - Cardiovascular Cardiovascular: CV stable without support - Mental Status Mental Status: Awake and oriented X 3 - Pain Pain: Adequately controlled - Nausea/Vomiting Nausea/Vomiting: Absent - Post-Op Hydration Post-Op Hydration: Tolerating oral intake Normal [facility] Basic Metabolic Panel $$$on 01-02-2017 Anion gap 3 molar conc 14.4 mmol/L Normal [facility] Comment on above: Performed By: #### B MARCOS HANNAH ####[facility] [place] [address] Calcium mass conc 9.5 mg/dL Normal 8.5-10.1 [facility] Comment on above: Performed By: #### B MARCOS HANNAH ####[facility] [place] [address] Chloride molar conc 100 mmol/L Normal 98-107 [facility] Comment on above: Performed By: #### B MARCOS HANNAH ####[facility] [place] [address] CO2 molar conc 28 mmol/L Normal 21-32 [facility] Comment on above: Performed By: #### MARCOS Andrade MP ####[facility] [place] [address] Creatinine mass conc 0.9 mg/dL Normal 0.6-1.3 [facility] Comment on above: Performed By: #### B MARCOS HANNAH ####[facility] [place] [address] GFR () >60 Normal [facility] Comment on above: Performed By: #### MARCOS Andrade MP ####[facility] [place] [address] GFR (Non ) >60 Normal [facility] Comment on above: Result Comment: eGFR Units of measure: mL/min/1.73 m 2 Performed By: #### MARCOS Andrade MP ####[facility] [place] [address] Glucose mass conc 122 mg/dL High 74-106 [facility] Comment on above: Performed By: #### MARCOS Andrade MP ####[facility] [place] [address] Potassium molar conc 4.4 mmol/L Normal 3.5-5.1 [facility] Comment on above: Performed By: #### MARCOS Andrade MP ####[facility] [place] [address] Sodium molar conc 138 mmol/L Normal 136-145 [facility] Comment on above: Performed By: #### MARCOS Andrade MP ####[facility] [place] [address] Urea nitrogen mass conc (Bld) 12 mg/dL Normal 7-18 [facility] Comment on above: Performed By: #### Raymond HANNAH HAJune ####[address] [place] [address] Hemoglobin A1con 01-02-2017 Hemoglobin A1c/Hemoglobin.total mass fraction (Bld) 6.0 % Normal 4.4-6.3 [facility] Comment on above: Performed By: #### B MARCOS HANNAH ####[facility] [place] [address] EP Post Proc Progress Noteon 12-13-2016 EP Post Proc Progress Note [facility] Patient: PAU MUÑOZ MR#: [id number] [place], [place] [address] : 1950 Ord[address]ariam Gloria: Dept: PDOC Loc: CATH EP Post Proc Progress Note Service Dt: 12/13/16 Report#: [id number] Adm Dt: 12/13/16 Dis Dt: - EP Progress Note (post-procedure) Procedure: Cardioversion Diagnosis: Atrial fibrillation Anesthesia: MAC Result: Successful cardioversion using 150 J synchronized biphasic shock Complications: none Normal [facility] History AND Physicalon 12-13 History AND Physical [facility] Patient: PAU MUÑOZ MR#: [id number] [place], [place] [address] : 1950 Ord. : Dept: PDOC Loc: CATH History Physical Service Dt: 12/13/16 Report#: [id number] Adm Dt: 12/13/16 Dis Dt: History and [...] __ Changes noted below: Date/Time Attending Physician [facility] Vital Signs Date Time Vital Sign Value Performing Clinician Facility 01-28-2025 12:46-0400 Body height 152.4 cm Ronitko Squiresjoni DO Work Phone: [facility] 01-28-2025 12:46-0400 Body mass index (BMI) [Ratio] 36.72 kg/m2 Ronit Doan DO Work Phone: [facility] 01-28-2025 12:46-0400 Body weight 85.28 kg Ronitko Doan DO Work Phone: [facility] 01-28-2025 12:46-0400 Diastolic blood pressure 78 mm[Hg] Ronit Olimpia DO Work Phone: [facility] 01-28-2025 12:46-0400 Heart rate 99 /min Ronit Lopesdileepk DO Work Phone: [facility] 01-28-2025 12:46-0400 Respiratory rate 16 /min Ronit Lopesdileepjoni DO Work Phone: [facility] 01-28-2025 12:46-0400 Systolic blood pressure 130 mm[Hg] Ronit Squiresk DO Work Phone: [facility] 10-28-2024 13:57-0400 Body height 152.4 cm Ronit Squiresk DO Work Phone: [facility] 10-28-2024 13:57-0400 Body mass index (BMI) [Ratio] 37.77 kg/m2 Ronit Lopesyak DO Work Phone: [facility] 10-28-2024 13:57-0400 Body weight 87.73 kg Ronit Squiresk DO Work Phone: [facility] 10-28-2024 13:57-0400 Diastolic blood pressure 71 mm[Hg] Ronit Lopesyak DO Work Phone: [facility] 10-28-2024 13:57-0400 Heart rate 89 /min Ronit Squiresk DO Work Phone: [facility] 10-28-2024 13:57-0400 Respiratory rate 16 /min Ronit Squiresk DO Work Phone: [facility] 10-28-2024 13:57-0400 Systolic blood pressure 120 mm[Hg] Ronit Squiresk DO Work Phone: [facility] 09-11-2024 09:00-0400 Body height 152.4 cm Jaylon Kiser DO Work Phone: [facility] 09-11-2024 09:00-0400 Body mass index (BMI) [Ratio] 37.89 kg/m2 Jaylon Kiser DO Work Phone: [facility] 09-11-2024 09:00-0400 Body weight 88 kg Jaylon Kiser DO Work Phone: [facility] 09-11-2024 09:00-0400 Diastolic blood pressure 74 mm[Hg] Jaylon Kiser DO Work Phone: [facility] 09-11-2024 09:00-0400 Heart rate 92 /min Jaylon Kiser DO Work Phone: [facility] 09-11-2024 09:00-0400 SaO2% (BldA) [Mass fraction] 95 % Jaylon Kiser DO Work Phone: [facility] 09-11-2024 09:00-0400 Systolic blood pressure 128 mm[Hg] Jaylon Kiser DO Work Phone: [facility] 07-22-2024 13:25-0400 Body height 152.4 cm Ronit Doan DO Work Phone: [facility] 07-22-2024 13:25-0400 Diastolic blood pressure 75 mm[Hg] Ronit Doan DO Work Phone: [facility] 07-22-2024 13:25-0400 Heart rate 88 /min Ronit Doan DO Work Phone: [facility] 07-22-2024 13:25-0400 Respiratory rate 18 /min Ronit Doan DO Work Phone: [facility] 07-22-2024 13:25-0400 Systolic blood pressure 132 mm[Hg] Ronit Doan DO Work Phone: [facility] 07-17-2024 13:12-0400 Body temperature 97.1 [degF] Dr. Ronit Doan DO Work Phone: [facility] 07-17-2024 13:12-0400 Diastolic blood pressure 54 mm[Hg] Dr. Ronit Doan DO Work Phone: [facility] 07-17-2024 13:12-0400 Heart rate 60 /min Dr. Ronit Doan DO Work Phone: [facility] 07-17-2024 13:12-0400 Respiratory rate 16 /min Dr. Ronit Doan DO Work Phone: [facility] 07-17-2024 13:12-0400 SaO2% (BldA) [Mass fraction] 95 % Dr. Ronit Doan DO Work Phone: [facility] 07-17-2024 13:12-0400 Systolic blood pressure 116 mm[Hg] Dr. Ronit Doan DO Work Phone: [facility] 07-17-2024 13:00-0400 Inhaled oxygen flow rate 2 L/min Dr. Ronit Doan DO Work Phone: [facility] 07-17-2024 10:26-0400 Body height 152.[address] Ronit Doan DO Work Phone: [facility] 07-17-2024 10:26-0400 Body mass index (BMI) [Ratio] 37.8 kg/m2 Dr. Ronit Doan DO Work Phone: [facility] 07-17-2024 10:26-0400 Body weight [address] Ronit Doan DO Work Phone: [facility] 07-11-2024 09:21-0500 Body mass index (BMI) [Ratio] 37.9 kg/m2 Dr. Ronit Doan DO Work Phone: [facility] 07-11-2024 09:21-0500 Body temperature 97.6 [degF] Dr. Ronit Doan DO Work Phone: [facility] 07-11-2024 09:21-0500 Body weight 88.[address] Ronit Doan DO Work Phone: [facility] 07-11-2024 09:21-0500 Diastolic blood pressure 64 mm[Hg] Dr. Ronit Doan DO Work Phone: [facility] 07-11-2024 09:21-0500 Heart rate 72 /min Dr. Ronit Doan DO Work Phone: [facility] 07-11-2024 09:21-0500 Respiratory rate 18 /min Dr. Ronit Doan DO Work Phone: [facility] 07-11-2024 09:21-0500 SaO2% (BldA) [Mass fraction] 99 % Dr. Ronti Doan DO Work Phone: [facility] 07-11-2024 09:21-0500 Systolic blood pressure 144 mm[Hg] Dr. Ronit Doan DO Work Phone: [facility] 06-20-2024 10:15-0500 Body height 152.4 cm Ronit Doan DO Work Phone: [facility] 06-20-2024 10:15-0500 Body mass index (BMI) [Ratio] 37.89 kg/m2 Ronit Doan DO Work Phone: [facility] 06-20-2024 10:15-0500 Body weight 88 kg Ronit Doan DO Work Phone: [facility] 06-20-2024 10:15-0500 Diastolic blood pressure 71 mm[Hg] Ronit Doan DO Work Phone: [facility] 06-20-2024 10:15-0500 Heart rate 84 /min Ronit Doan DO Work Phone: [facility] 06-20-2024 10:15-0500 Respiratory rate 16 /min Ronit Doan DO Work Phone: [facility] 06-20-2024 10:15-0500 Systolic blood pressure 128 mm[Hg] Ronit Doan DO Work Phone: [facility] 05-24-2024 10:44-0500 Body height 152.4 cm Timothy Palacio DO Work Phone: [facility] 05-24-2024 10:44-0500 Body mass index (BMI) [Ratio] 37.69 kg/m2 Timothy Ramicone DO Work Phone: [facility] 05-24-2024 10:44-0500 Body weight 87.54 kg Timothy Ramicone DO Work Phone: [facility] 05-24-2024 10:44-0500 Diastolic blood pressure 66 mm[Hg] Timothy Ramicone DO Work Phone: [facility] 05-24-2024 10:44-0500 Heart rate 83 /min Timothy Cohnicone DO Work Phone: [facility] 05-24-2024 10:44-0500 SaO2% (BldA) [Mass fraction] 95 % Timothy Ramicone DO Work Phone: [facility] 05-24-2024 10:44-0500 Systolic blood pressure 132 mm[Hg] Timothy Cohnicone DO Work Phone: [facility] 04-23-2024 10:29-0500 Body height 152.4 cm Ronitko Lopesyak DO Work Phone: [facility] 04-23-2024 10:29-0500 Body mass index (BMI) [Ratio] 37.42 kg/m2 Ronit Mosesyak DO Work Phone: [facility] 04-23-2024 10:29-0500 Body weight 86.91 kg Ronit Shawk DO Work Phone: [facility] 04-23-2024 10:29-0500 Diastolic blood pressure 70 mm[Hg] Ronit Lopesyak DO Work Phone: [facility] 04-23-2024 10:29-0500 Heart rate 78 /min Ronit Lopesyak DO Work Phone: [facility] 04-23-2024 10:29-0500 Respiratory rate 16 /min Ronit Lopesyak DO Work Phone: [facility] 04-23-2024 10:29-0500 Systolic blood pressure 131 mm[Hg] Ronit Ronyak DO Work Phone: [facility] 01-29-2024 13:59-0400 Body height 152.4 cm Ronit Ronyak DO Work Phone: [facility] 01-29-2024 13:59-0400 Body mass index (BMI) [Ratio] 37.42 kg/m2 Ronit Ronyak DO Work Phone: [facility] 01-29-2024 13:59-0400 Body weight 86.91 kg Ronit Ronyak DO Work Phone: [facility] 01-29-2024 13:59-0400 Diastolic blood pressure 68 mm[Hg] Ronit Ronyak DO Work Phone: [facility] 01-29-2024 13:59-0400 Heart rate 87 /min Ronit Ronyak DO Work Phone: [facility] 01-29-2024 13:59-0400 Respiratory rate 16 /min Ronit Ronyak DO Work Phone: [facility] 01-29-2024 13:59-0400 Systolic blood pressure 145 mm[Hg] Ronit Ronyak DO Work Phone: [facility] 01-11-2024 13:01-0400 Body height 152.4 cm Ronitko Lopesyak DO Work Phone: [facility] 01-11-2024 13:01-0400 Body mass index (BMI) [Ratio] 36.99 kg/m2 Ronit Ronyak DO Work Phone: [facility] 01-11-2024 13:01-0400 Body weight 85.91 kg Ronit Ronyak DO Work Phone: [facility] 01-11-2024 13:01-0400 Diastolic blood pressure 70 mm[Hg] Ronit Ronyak DO Work Phone: [facility] 01-11-2024 13:01-0400 Heart rate 90 /min Ronit Doan DO Work Phone: [facility] 01-11-2024 13:01-0400 Respiratory rate 16 /min Ronit Squiresk DO Work Phone: [facility] 01-11-2024 13:01-0400 Systolic blood pressure 126 mm[Hg] Ronit Squiresk DO Work Phone: [facility] 01-03-2024 22:21-0400 Diastolic Blood Pressure Non-Invasive 89 mm[Hg] ZAK LEPE MD [facility] 01-03-2024 22:21-0400 Heart rate 62 /min ZAK LEPE MD [facility] 01-03-2024 22:21-0400 Respiratory rate 20 /min ZAK LEPE MD [facility] 01-03-2024 22:21-0400 Systolic Blood Pressure Non-Invasive 142 mm[Hg] ZAK LEPE MD [facility] 01-03-2024 21:18-0400 Blood Pressure Cuff Size ZAK LEPE MD [facility] 01-03-2024 21:18-0400 Blood Pressure Location ZAK LEPE MD [facility] 01-03-2024 21:18-0400 Blood Pressure Method ZAK LEPE MD [facility] 01-03-2024 21:18-0400 Body height 152.4 cm ZAK LEPE MD [facility] 01-03-2024 21:18-0400 Body temperature 98.6 [degF] ZAK LEPE MD [facility] 01-03-2024 21:18-0400 Body weight 86.4 kg ZAK LEPE MD [facility] 01-03-2024 21:18-0400 Diastolic Blood Pressure Non-Invasive 57 mm[Hg] ZAK LEPE MD [facility] 01-03-2024 21:18-0400 Heart rate 66 /min ZAK LEPE MD [facility] 01-03-2024 21:18-0400 Respiratory rate 16 /min ZAK LEPE MD [facility] 01-03-2024 21:18-0400 Systolic Blood Pressure Non-Invasive 169 mm[Hg] ZAK LEPE MD [facility] 11-21-2023 08:35-0400 Body height 152.4 cm Héctor Fairchild MD Work Phone: [facility] 11-21-2023 08:35-0400 Body mass index (BMI) [Ratio] 36.52 kg/m2 Héctor Fairchild MD Work Phone: [facility] 11-21-2023 08:35-0400 Body weight 84.82 kg Héctor Fairchild MD Work Phone: [facility] 11-21-2023 08:35-0400 Diastolic blood pressure 58 mm[Hg] Héctor Fairchild MD Work Phone: [facility] 11-21-2023 08:35-0400 Heart rate 77 /min Héctor Fairchild MD Work Phone: [facility] 11-21-2023 08:35-0400 Respiratory rate 18 /min Héctor Fairchild MD Work Phone: [facility] 11-21-2023 08:35-0400 Systolic blood pressure 127 mm[Hg] Héctor Fairchild MD Work Phone: [facility] 11-14-2023 13:34-0400 Diastolic blood pressure 55 mm[Hg] Charline Tanki DO Work Phone: [facility] 11-14-2023 13:34-0400 Systolic blood pressure 120 mm[Hg] Charline Tanki DO Work Phone: [facility] 11-14-2023 13:06-0400 Body height 152.4 cm Charline Tanki DO Work Phone: [facility] 11-14-2023 13:06-0400 Body mass index (BMI) [Ratio] 37.61 kg/m2 Charline Tanki DO Work Phone: [facility] 11-14-2023 13:06-0400 Body weight 87.36 kg Charline Hagen DO Work Phone: [facility] 11-14-2023 13:06-0400 Heart rate 83 /min Charline Hagen DO Work Phone: [facility] 10-16-2023 11:29-0400 Body height 152.4 cm Timothy Cohnveronica DO Work Phone: [facility] 10-16-2023 11:29-0400 Body mass index (BMI) [Ratio] 36.91 kg/m2 Timothy Palacio DO Work Phone: [facility] 10-16-2023 11:29-0400 Body weight 85.73 kg Timothy Laliticone DO Work Phone: [facility] 10-16-2023 11:29-0400 Diastolic blood pressure 58 mm[Hg] Timothy Palacio DO Work Phone: [facility] 10-16-2023 11:29-0400 Heart rate 76 /min Timothy Palacio DO Work Phone: [facility] 10-16-2023 11:29-0400 SaO2% (BldA) [Mass fraction] 96 % Timothy Palacio DO Work Phone: [facility] 10-16-2023 11:29-0400 Systolic blood pressure 119 mm[Hg] Timothy Palacio DO Work Phone: [facility] 09-26-2023 15:05-0400 Body height 152.4 cm Ronit Doan DO Work Phone: [facility] 09-26-2023 15:05-0400 Body mass index (BMI) [Ratio] 37.34 kg/m2 Ronit Squiresk DO Work Phone: [facility] 09-26-2023 15:05-0400 Body weight 86.73 kg Ronit Squiresk DO Work Phone: [facility] 09-26-2023 15:05-0400 Diastolic blood pressure 73 mm[Hg] Ronit Squiresk DO Work Phone: [facility] 09-26-2023 15:05-0400 Heart rate 84 /min Ronit Squiresk DO Work Phone: [facility] 09-26-2023 15:05-0400 Respiratory rate 16 /min Ronit Squiresk DO Work Phone: [facility] 09-26-2023 15:05-0400 Systolic blood pressure 114 mm[Hg] Ronitko Doan DO Work Phone: [facility] 08-24-2023 11:00-0400 Body height 152.4 cm Jaylon Kiser DO Work Phone: [facility] 08-24-2023 11:00-0400 Body mass index (BMI) [Ratio] 37.5 kg/m2 Jaylon Kiser DO Work Phone: [facility] 08-24-2023 11:00-0400 Body weight 87.09 kg Jaylon Kiser DO Work Phone: [facility] 08-24-2023 11:00-0400 Diastolic blood pressure 70 mm[Hg] Jaylon Kiser DO Work Phone: [facility] 08-24-2023 11:00-0400 Heart rate 80 /min Jaylon Kiser DO Work Phone: [facility] 08-24-2023 11:00-0400 SaO2% (BldA) [Mass fraction] 94 % Jaylon Kiser DO Work Phone: [facility] 08-24-2023 11:00-0400 Systolic blood pressure 134 mm[Hg] Jaylon Kiser DO Work Phone: [facility] 08-08-2023 11:17-0400 Body height 152.4 cm Héctor Fairchild MD Work Phone: [facility] 08-08-2023 11:17-0400 Body weight 84.82 kg Héctor Fairchild MD Work Phone: [facility] 08-08-2023 11:17-0400 Diastolic blood pressure 65 mm[Hg] Héctor Fairchild MD Work Phone: [facility] 08-08-2023 11:17-0400 Heart rate 101 /min Héctor Fairchild MD Work Phone: [facility] 08-08-2023 11:17-0400 Respiratory rate 20 /min Héctor Fairchild MD Work Phone: [facility] 08-08-2023 11:17-0400 Systolic blood pressure 131 mm[Hg] Héctor Fairchild MD Work Phone: [facility] 06-21-2023 08:32-0500 Body height 152.[address] 06-21-2023 08:32-0500 Body mass index (BMI) [Ratio] 36.52 kg/m2 [facility] 06-21-2023 08:32-0500 Body weight 84.[address] 06-13-2023 11:32-0500 Body weight 84.82 kg Héctor Fairchild MD Work Phone: [facility] 06-13-2023 11:32-0500 Diastolic blood pressure 70 mm[Hg] Héctor Fairchild MD Work Phone: [facility] 06-13-2023 11:32-0500 Heart rate 76 /min Héctor Fairchild MD Work Phone: [facility] 06-13-2023 11:32-0500 Systolic blood pressure 125 mm[Hg] Héctor Fairchild MD Work Phone: [facility] 06-07-2023 13:24-0500 Body height 152.4 cm Ronitko Squiresk DO Work Phone: [facility] 06-07-2023 13:24-0500 Body mass index (BMI) [Ratio] 36.79 kg/m2 Ronit Ronyak DO Work Phone: [facility] 06-07-2023 13:24-0500 Body weight 85.46 kg Ronitko Squiresk DO Work Phone: [facility] 06-07-2023 13:24-0500 Diastolic blood pressure 62 mm[Hg] Ronit Lopesyak DO Work Phone: [facility] 06-07-2023 13:24-0500 Heart rate 85 /min Ronit Ronyak DO Work Phone: [facility] 06-07-2023 13:24-0500 Respiratory rate 16 /min Ronit Ronyak DO Work Phone: [facility] 06-07-2023 13:24-0500 Systolic blood pressure 114 mm[Hg] Ronit Ronyak DO Work Phone: [facility] 05-16-2023 15:14-0500 Diastolic blood pressure 58 mm[Hg] Charline Hagen DO Work Phone: [facility] 05-16-2023 15:14-0500 Systolic blood pressure 118 mm[Hg] Charline Hagen DO Work Phone: [facility] 05-16-2023 14:53-0500 Body height 152.4 cm Charline Hagen DO Work Phone: [facility] 05-16-2023 14:53-0500 Body mass index (BMI) [Ratio] 36.91 kg/m2 Charline Hagen DO Work Phone: [facility] 05-16-2023 14:53-0500 Body weight 85.73 kg Charline Hagen DO Work Phone: [facility] 05-16-2023 14:53-0500 Heart rate 88 /min Charline Hagen DO Work Phone: [facility] 05-16-2023 14:53-0500 SaO2% (BldA) [Mass fraction] 97 % Charline Hagen DO Work Phone: [facility] 05-05-2023 11:23-0500 Body height 152.4 cm Ronit Squiresk DO Work Phone: [facility] 05-05-2023 11:23-0500 Body mass index (BMI) [Ratio] 36.99 kg/m2 Ronit Squiresk DO Work Phone: [facility] 05-05-2023 11:23-0500 Body weight 85.91 kg Ronit Squiresk DO Work Phone: [facility] 05-05-2023 11:23-0500 Diastolic blood pressure 66 mm[Hg] Ronitko Lopesyak DO Work Phone: [facility] 05-05-2023 11:23-0500 Heart rate 82 /min Ronitko Lopesyak DO Work Phone: [facility] 05-05-2023 11:23-0500 Respiratory rate 16 /min Ronit Lopesyak DO Work Phone: [facility] 05-05-2023 11:23-0500 Systolic blood pressure 127 mm[Hg] Ronit Doan DO Work Phone: [facility] 04-24-2023 13:54-0500 Body temperature 97.11 [degF] Kira Olvera MD Work Phone: [facility] 04-24-2023 13:54-0500 Diastolic blood pressure 63 mm[Hg] Kira Olvera MD Work Phone: [facility] 04-24-2023 13:54-0500 Heart rate 65 /min Kira Olvera MD Work Phone: [facility] 04-24-2023 13:54-0500 Respiratory rate 16 /min Kira Olvera MD Work Phone: [facility] 04-24-2023 13:54-0500 SaO2% (BldA) [Mass fraction] 98 % Kira Olvera MD Work Phone: [facility] 04-24-2023 13:54-0500 Systolic blood pressure 116 mm[Hg] Kira Olvera MD Work Phone: [facility] 04-24-2023 03:53-0500 Body height 152.4 cm Kira Olvera MD Work Phone: [facility] 04-24-2023 03:53-0500 Body mass index (BMI) [Ratio] 36.17 kg/m2 Kira Olvera MD Work Phone: [facility] 04-24-2023 03:53-0500 Body weight 84 kg Kira Olvera MD Work Phone: [facility] 02-17-2023 13:26-0400 Body height 152.4 cm Ronit Doan DO Work Phone: [facility] 02-17-2023 13:26-0400 Body mass index (BMI) [Ratio] 36.64 kg/m2 Ronit Ronyak DO Work Phone: [facility] 02-17-2023 13:26-0400 Body weight 85.09 kg Ronit Doan DO Work Phone: [facility] 02-17-2023 13:26-0400 Diastolic blood pressure 59 mm[Hg] Ronit Doan DO Work Phone: [facility] 02-17-2023 13:26-0400 Heart rate 75 /min Ronit Doan DO Work Phone: [facility] 02-17-2023 13:26-0400 Respiratory rate 16 /min Ronit Doan DO Work Phone: [facility] 02-17-2023 13:26-0400 Systolic blood pressure 128 mm[Hg] Ronit Doan DO Work Phone: [facility] 01-18-2023 14:26-0400 2.2 1 Ronit Doan Work [...] 152.4 cm Ronit Doan DO Work Phone: [facility] 12-15-2022 11:24-0400 Body mass index (BMI) [Ratio] 36.72 kg/m2 Ronit Doan DO Work Phone: [facility] 12-15-2022 11:24-0400 Body weight 85.28 kg Ronit Doan DO Work Phone: [facility] 12-15-2022 11:24-0400 Diastolic blood pressure 88 mm[Hg] Ronit Doan DO Work Phone: [facility] 12-15-2022 11:24-0400 Heart rate 72 /min Ronit Doan DO Work Phone: [facility] 12-15-2022 11:24-0400 Respiratory rate 16 /min Ronit Doan DO Work Phone: [facility] 12-15-2022 11:24-0400 Systolic blood pressure 154 mm[Hg] Ronit Doan DO Work Phone: [facility] 12-13-2022 13:05-0400 3 1 Ronit Yaz Olimpia Work Phone: [facility] Work Phone: Comment on above: IOINR3 12-10-2022 10:42-0400 Body temperature 98.06 [degF] Tod Cabello DO [facility] 12-10-2022 10:42-0400 Body weight 85.3 kg Todclaude Cabello DO [facility] 12-10-2022 10:42-0400 Diastolic blood pressure 71 mm[Hg] Tod Cabello DO [facility] 12-10-2022 10:42-0400 Heart rate 64 /min Tod Cabello DO [facility] 12-10-2022 10:42-0400 Respiratory rate 18 /min Tod Cabello DO [facility] 12-10-2022 10:42-0400 SaO2% (BldA) [Mass fraction] 95 % Tod Cabello DO [facility] 12-10-2022 10:42-0400 Systolic blood pressure 149 mm[Hg] Tod Cabello DO [facility] 11-29-2022 10:07-0400 2.4 1 Ronit Mukherjee Olimpia Work Phone: [facility] Work Phone: Comment on above: IOINR3 11-15-2022 10:13-0400 2.6 1 Ronit Yaz Olimpia Work Phone: [facility] Work Phone: Comment on above: IOINR3 11-11-2022 13:36-0400 Body mass index (BMI) [Ratio] 36.52 kg/m2 Ronitko Doan DO Work Phone: [facility] 11-11-2022 13:36-0400 Body weight 84.82 kg Ronitko Doan DO Work Phone: [facility] 11-11-2022 13:36-0400 Diastolic blood pressure 52 mm[Hg] Ronit Squiresk DO Work Phone: [facility] 11-11-2022 13:36-0400 Heart rate 61 /min Ronit Lopescayetano DO Work Phone: [facility] 11-11-2022 13:36-0400 Systolic blood pressure 117 mm[Hg] Ronit Squiresk DO Work Phone: [facility] 11-01-2022 10:29-0400 2.6 1 Ronit Squiresk Work Phone: RO-Whxzgtpfkq-Qkfda Work Phone: Comment on above: IOINR3 10-26-2022 09:51-0400 2.8 1 Ronit Squiresk Work Phone: ON-Oyrkfweyru-Mlkqv Work Phone: Comment on above: IOINR3 10-18-2022 14:24-0400 3.3 1 Ronit Squiresk Work Phone: UB-Bloimeumgd-Bjxto Work Phone: Comment on above: IOINR3 10-14-2022 11:45-0400 Diastolic blood pressure 58 mm[Hg] Ronit Squiresk Work Phone: XP-Azkghuhyne-Xmnez Work Phone: 10-14-2022 11:45-0400 Systolic blood pressure 110 mm[Hg] Ronit Squiresk Work Phone: DQ-Hkovlwmsae-Qowbe Work Phone: 10-14-2022 11:29-0400 Body height 152.4 cm Ronit Squiresk Work Phone: BV-Tukhoiiuuy-Hlagd Work Phone: 10-14-2022 11:29-0400 Body mass index (BMI) [Ratio] 36.33 kg/m2 Ronit Squiresk Work Phone: UX-Brhkshytwi-Jqgvb Work Phone: 10-14-2022 11:29-0400 Body surface area Derived from formula 1.81 m2 Ronit Squiresk Work Phone: TJ-Nymyijlemc-Okxpl Work Phone: 10-14-2022 11:29-0400 Body weight 84.37 kg Ronit Squiresk Work Phone: RD-Exqqxsbrbc-Xnmwl Work Phone: 10-14-2022 11:29-0400 Diastolic blood pressure 64 mm[Hg] Ronit Squiresk Work Phone: QM-Prcluzkibg-Ywqup Work Phone: 10-14-2022 11:29-0400 Heart rate 70 /min Ronit Squiresk Work Phone: SD-Kydvprupkg-Enqah Work Phone: 10-14-2022 11:29-0400 Respiratory rate 16 /min Ronit Squiresk Work Phone: HR-Wyyqrgxhyk-Skddz Work Phone: 10-14-2022 11:29-0400 SaO2% (BldA) [Mass fraction] 93 % Ronit Squiresk Work Phone: QT-Dyikicrvht-Wnyuc Work Phone: 10-14-2022 11:29-0400 Systolic blood pressure 122 mm[Hg] Ronit Squiresk Work Phone: FY-Lvstabostx-Bpqat Work Phone: 10-11-2022 13:32-0400 2.8 1 Ronit Squiresk Work Phone: XN-Oawxebusuh-Bmoff Work Phone: Comment on above: IOINR3 10-04-2022 15:34-0400 Body height 152.4 cm Ronit Squiresk DO Work Phone: [facility] 10-04-2022 15:34-0400 Body mass index (BMI) [Ratio] 36.72 kg/m2 Ronit Squiresk DO Work Phone: [facility] 10-04-2022 15:34-0400 Body weight 85.28 kg Ronit Squiresk DO Work Phone: [facility] 10-04-2022 15:34-0400 Diastolic blood pressure 48 mm[Hg] Ronit Doan DO Work Phone: [facility] 10-04-2022 15:34-0400 Heart rate 63 /min Ronit Doan DO Work Phone: [facility] 10-04-2022 15:34-0400 Systolic blood pressure 136 mm[Hg] Ronit Doan DO Work Phone: [facility] 10-04-2022 13:18-0400 3.9 1 Ronit Doan Work Phone: [facility] Work Phone: Comment on above: [place] 09-27-2022 11:45-0400 3.5 1 Ronit Yaz Olimpia Work Phone: [facility] Work Phone: Comment on above: INR3 09-21-2022 11:21-0400 3.4 1 Ronit Doan Work Phone: [facility] Work Phone: Comment on above: [facility] 09-15-2022 10:48-0400 Body height 152.4 cm Ronit Yaz Mosesdileepjoni Work Phone: [facility] Work Phone: 09-15-2022 10:48-0400 Body mass index (BMI) [Ratio] 36.33 kg/m2 Ronit Doan Work Phone: [facility] Work Phone: 09-15-2022 10:48-0400 Body surface area Derived from formula 1.81 m2 Ronit Doan Work Phone: [facility] Work Phone: 09-15-2022 10:48-0400 Body weight 84.37 kg Ronit Dona Work Phone: [facility] Work Phone: 09-15-2022 10:48-0400 Diastolic blood pressure 58 mm[Hg] Ronit Doan Work Phone: [facility] Work Phone: 09-15-2022 10:48-0400 Heart rate 80 /min Ronit Doan Work Phone: [facility] Work Phone: 09-15-2022 10:48-0400 SaO2% (BldA) [Mass fraction] 96 % Ronit Doan Work Phone: [facility] Work Phone: 09-15-2022 10:48-0400 Systolic blood pressure 114 mm[Hg] Ronit Doan Work Phone: [facility] Work Phone: 09-14-2022 11:25-0400 2.6 1 Ronit Doan Work Phone: [facility] Work Phone: Comment on above: IOINR3 [...] cm Ronit Doan Work Phone: [facility] Work Phone: 08-18-2022 11:17-0400 Body mass index (BMI) [Ratio] 36.91 kg/m2 Ronit Doan Work Phone: [facility] Work Phone: 08-18-2022 11:17-0400 Body surface area Derived from formula 1.82 m2 Ronit Doan Work Phone: [facility] Work Phone: 08-18-2022 11:17-0400 Body weight 85.73 kg Ronit Doan Work Phone: [facility] Work Phone: 08-18-2022 11:17-0400 Diastolic blood pressure 60 mm[Hg] Ronit Doan Work Phone: [facility] Work Phone: 08-18-2022 11:17-0400 Heart rate 75 /min Ronit Doan Work Phone: [facility] Work Phone: 08-18-2022 11:17-0400 SaO2% (BldA) [Mass fraction] 96 % Ronit Doan Work Phone: [facility] Work Phone: 08-18-2022 11:17-0400 Systolic blood pressure 138 mm[Hg] Ronit Doan Work Phone: [facility] Work Phone: 08-16-2022 15:13-0400 2.3 1 Ronit Doan Work Phone: [facility] Work Phone: Comment on above: IOINR3 08-11-2022 09:06-0400 Body height 152.4 cm Ronit Doan DO Work Phone: [facility] 08-11-2022 09:06-0400 Body mass index (BMI) [Ratio] 37.11 kg/m2 Ronit Doan DO Work Phone: [facility] 08-11-2022 09:06-0400 Body weight 86.18 kg Ronit Doan DO Work Phone: [facility] 08-11-2022 09:06-0400 Diastolic blood pressure 48 mm[Hg] Ronit Doan DO Work Phone: [facility] 08-11-2022 09:06-0400 Heart rate 75 /min Ronit Doan DO Work Phone: [facility] 08-11-2022 09:06-0400 Systolic blood pressure 140 mm[Hg] Ronit Squiresk DO Work Phone: [facility] 06-29-2022 10:31-0500 Body mass index (BMI) [Ratio] 37.01 kg/m2 Ronit Doan Work Phone: [facility] Work Phone: 06-29-2022 10:31-0500 Body surface area Derived from formula 1.82 m2 Ronit Doan Work Phone: [facility] Work Phone: 06-29-2022 10:31-0500 Body weight 85.96 kg Ronit Doan Work Phone: [facility] Work Phone: 06-29-2022 10:31-0500 Diastolic blood pressure 51 mm[Hg] Ronit Doan Work Phone: [facility] Work Phone: 06-29-2022 10:31-0500 Heart rate 83 /min Ronit Doan Work Phone: [facility] Work Phone: 06-29-2022 10:31-0500 Systolic blood pressure 127 mm[Hg] Ronit Doan Work Phone: [facility] Work Phone: 05-26-2022 14:18-0500 Body height 152.4 cm Ronit Doan Work Phone: [facility] Work Phone: 05-26-2022 14:18-0500 Body mass index (BMI) [Ratio] 36.72 kg/m2 Ronit Doan Work Phone: [facility] Work Phone: 05-26-2022 14:18-0500 Body surface area Derived from formula 1.82 m2 Ronit Doan Work Phone: [facility] Work Phone: 05-26-2022 14:18-0500 Body weight 85.28 [...] 11:13-0500 Diastolic blood pressure 50 mm[Hg] Ronitko Doan Work Phone: [facility] Work Phone: 03-21-2022 11:13-0500 Systolic blood pressure 118 mm[Hg] Ronitko Doan Work Phone: [facility] Work Phone: 03-21-2022 10:48-0500 Body mass index (BMI) [Ratio] 37.16 kg/m2 Ronitko Doan Work Phone: [facility] Work Phone: 03-21-2022 10:48-0500 Body surface area Derived from formula 1.83 m2 Ronitko Doan Work Phone: [facility] Work Phone: 03-21-2022 10:48-0500 Body weight 86.3 kg Ronit Lopescayetano Work Phone: [facility] Work Phone: 03-21-2022 10:48-0500 Diastolic blood pressure 70 mm[Hg] Ronit Doan Work Phone: [facility] Work Phone: 03-21-2022 10:48-0500 Heart rate 86 /min Ronit Doan Work Phone: [facility] Work Phone: 03-21-2022 10:48-0500 SaO2% (BldA) [Mass fraction] 95 % Ronit Doan Work Phone: [facility] Work Phone: 03-21-2022 10:48-0500 Systolic blood pressure 142 mm[Hg] Ronit Doan Work Phone: [facility] Work Phone: 03-09-2022 13:26-0400 Body height 152.4 cm Ronit Doan Work Phone: [facility] DO Work Phone: 03-09-2022 13:26-0400 Body mass index (BMI) [Ratio] 36.52 kg/m2 Ronit Doan Work Phone: [facility] DO Work Phone: 03-09-2022 13:26-0400 Body surface area Derived from formula 1.81 m2 Ronit Doan Work Phone: [facility] DO Work Phone: 03-09-2022 13:26-0400 Body weight 84.82 kg Ronit Doan Work Phone: [facility] DO Work Phone: 02-17-2022 10:49-0400 Body height 152.4 cm Ronit Doan Work Phone: [facility] Work Phone: 02-17-2022 10:49-0400 Body mass index (BMI) [Ratio] 36.52 kg/m2 Ronit Doan Work Phone: [facility] Work Phone: 02-17-2022 10:49-0400 Body surface area Derived from formula 1.81 m2 Ronit Doan Work Phone: [facility] Work Phone: 02-17-2022 10:49-0400 Body weight 84.82 kg Ronit Doan Work Phone: [facility] Work Phone: 02-17-2022 10:49-0400 Diastolic blood pressure 62 mm[Hg] Ronitko Doan Work Phone: [facility] Work Phone: 02-17-2022 10:49-0400 Heart rate 80 /min Ronit Doan Work Phone: [facility] Work Phone: 02-17-2022 10:49-0400 SaO2% (BldA) [Mass fraction] 98 % Ronit Doan Work Phone: [facility] Work Phone: 02-17-2022 10:49-0400 Systolic blood pressure 130 mm[Hg] Ronit Squiresjoni Work Phone: [facility] Work Phone: 02-07-2022 08:59-0400 Body height 152.4 cm Ronit Doan Work Phone: [facility] Work Phone: 02-07-2022 08:59-0400 Body mass index (BMI) [Ratio] 36.37 kg/m2 Ronit Doan Work Phone: [facility] Work Phone: 02-07-2022 08:59-0400 Body surface area Derived from formula 1.81 m2 Ronit Doan Work Phone: [facility] Work Phone: 02-07-2022 08:59-0400 Body weight 84.48 kg Ronit Doan Work Phone: [facility] Work Phone: 02-07-2022 08:59-0400 Diastolic blood pressure 74 mm[Hg] Ronit Doan Work Phone: [facility] Work Phone: 02-07-2022 08:59-0400 Heart rate 79 /min Ronit Doan Work Phone: [facility] Work Phone: 02-07-2022 08:59-0400 SaO2% (BldA) [Mass fraction] 93 % Ronit Doan Work Phone: [facility] Work Phone: 02-07-2022 08:59-0400 Systolic blood pressure 159 mm[Hg] Ronit Yaz Olimpia Work Phone: [facility] Work Phone: 02-07-2022 08:59-0400 0 1 Ronit Yaz Olimpia Work Phone: [facility] Work Phone: Comment on above: [employer] 09-12-2022 09:21-0400 Body height 152.4 cm Ronit Doan Work Phone: [facility] Work Phone: 01-17-2022 09:21-0400 Body [...] pressure 60 mm[Hg] Ronitko Doan Work Phone: [facility] Work Phone: 01-17-2022 09:21-0400 Heart rate 72 /min Ronit Doan Work Phone: [facility] Work Phone: 01-17-2022 09:21-0400 Systolic blood pressure 144 mm[Hg] Ronit Mukherjee Mosesdileepjoni Work Phone: [facility] Work Phone: 01-12-2022 13:17-0400 Body height 152.4 cm Ronit Yaz Olimpia Work Phone: [facility] Work Phone: 01-12-2022 13:17-0400 Body [...] pressure 65 mm[Hg] Ronitko Doan Work Phone: GO-Sjlwaibkbb-Xltpi Work Phone: 09-21-2021 15:27-0400 Systolic blood pressure 138 mm[Hg] Ronitko Doan Work Phone: AX-Szmgvbusnm-Qtvgg Work Phone: 09-21-2021 14:58-0400 Body mass index (BMI) [Ratio] 36.23 kg/m2 Ronit Yaz Olimpia Work Phone: JW-Cpnssdvtaa-Xiolc Work Phone: 09-21-2021 14:58-0400 Body surface area Derived from formula 1.81 m2 Ronit Yaz Shawk Work Phone: KA-Weibfhhilo-Gvyag Work Phone: 09-21-2021 14:58-0400 Body weight 84.14 kg Ronit Mukherjee Olimpia Work Phone: ZH-Ledgabyvfr-Sdchd Work Phone: 09-21-2021 14:58-0400 Diastolic blood pressure 60 mm[Hg] Ronit Squiresk Work Phone: XA-Ugumlblxag-Aluxd Work Phone: 09-21-2021 14:58-0400 Heart rate 83 /min Ronit Squiresk Work Phone: QT-Ccidlpfahb-Ytrhi Work Phone: 09-21-2021 14:58-0400 SaO2% (BldA) [Mass fraction] 97 % Ronit Squiresk Work Phone: CS-Wwgrhaghta-Eteky Work Phone: 09-21-2021 14:58-0400 Systolic blood pressure 130 mm[Hg] Ronit Squiresk Work Phone: RE-Ildsbkgnjf-Jjgsr Work Phone: 09-20-2021 09:49-0400 Body mass index (BMI) [Ratio] 36.41 kg/m2 Ronit Squiresk Work Phone: PF-Leayvpuqab-Wvkpr Work Phone: 09-20-2021 09:49-0400 Body surface area Derived from formula 1.81 m2 Ronit Squiresk Work Phone: UI-Tmtfelzwot-Gazpq Work Phone: 09-20-2021 09:49-0400 Body weight 84.57 kg Ronit Doan Work Phone: WE-Ncuzyjeebg-Hkofj Work Phone: 09-20-2021 09:49-0400 Diastolic blood pressure 60 mm[Hg] Ronit Squiresk Work Phone: VN-Eohxmijvsk-Mkcmy Work Phone: 09-20-2021 09:49-0400 Heart rate 68 /min Ronit Squiresk Work Phone: CT-Zdvuvycamp-Isqrx Work Phone: 09-20-2021 09:49-0400 Systolic blood pressure 129 mm[Hg] Ronit Doan Work Phone: ER-Ipbbfepazg-Arxbr Work Phone: 08-19-2021 07:51-0400 Body height 152.4 cm Ronit Doan Work Phone: [facility] Work Phone: 08-19-2021 07:51-0400 Body mass index (BMI) [Ratio] 36.13 kg/m2 Ronit Doan Work Phone: [facility] Work Phone: 08-19-2021 07:51-0400 Body surface area Derived from formula 1.81 m2 Ronit Doan Work Phone: [facility] Work Phone: 08-19-2021 07:51-0400 Body weight 83.92 kg Ronit Doan Work Phone: [facility] Work Phone: 08-19-2021 07:51-0400 Diastolic blood pressure 64 mm[Hg] Ronit Doan Work Phone: [facility] Work Phone: 08-19-2021 07:51-0400 Heart rate 71 /min Ronit Doan Work Phone: [facility] Work Phone: 08-19-2021 07:51-0400 SaO2% (BldA) [Mass fraction] 96 % Ronit Doan Work Phone: [facility] Work Phone: 08-19-2021 07:51-0400 Systolic blood pressure 126 mm[Hg] [facility] Work Phone: 08-01-2021 12:00-0400 Heart rate 60 /min Ronit Doan Other Phone: [facility] Other Phone (unformatted): [phone] 08-01-2021 12:00-0400 Respiratory rate 23 /min Ronit Doan Other Phone: [facility] Other Phone (unformatted): [phone] 08-01-2021 12:00-0400 SaO2% (BldA) [Mass fraction] 92 % Rnoit Doan Other Phone: [facility] Other Phone (unformatted): [phone] 08-01-2021 11:00-0400 Diastolic blood pressure 63 mm[Hg] Ronit Doan Other Phone: [facility] Other Phone (unformatted): [phone] 08-01-2021 11:00-0400 Systolic blood pressure 133 mm[Hg] Ronit Doan Other Phone: [facility] Other Phone (unformatted): [phone] 08-01-2021 10:00-0400 Body temperature 97.7 [degF] Ronit Doan Other Phone: [facility] Other Phone (unformatted): [phone] 08-01-2021 09:59-0400 FiO2 21 1 Ronit Doan Other Phone: [facility] Other Phone (unformatted): [phone] 07-15-2021 09:55-0500 Body height 152.4 cm Ronit Doan [facility] Work Phone: 07-15-2021 09:55-0500 Body mass index (BMI) [Ratio] 37.3 kg/m2 Ronit Doan Work Phone: [facility] Work Phone: 07-15-2021 09:55-0500 Body surface area Derived from formula 1.83 m2 Ronit Squiresjoni Work Phone: [facility] Work Phone: 07-15-2021 09:55-0500 Body weight 86.64 kg Ronit Squiresjoni Work Phone: [facility] Work Phone: 07-15-2021 09:55-0500 Diastolic blood pressure 70 mm[Hg] Ronit Yaz Olimpia Work Phone: [facility] Work Phone: 07-15-2021 09:55-0500 Heart rate 68 /min Ronit Doan Work Phone: [facility] Work Phone: 07-15-2021 09:55-0500 SaO2% (BldA) [Mass fraction] 96 % Ronit Squiresjoni Work Phone: [facility] Work Phone: 07-15-2021 09:55-0500 Systolic blood pressure 128 mm[Hg] Ronit Yaz Mosescayetano Work Phone: [facility] Work Phone: 06-30-2021 13:39-0500 Body height 152.4 cm Ronit Doan Work Phone: BM-Hcpuxutjor-Ifbknr [address] [place] Work Phone: 06-30-2021 13:39-0500 Body mass index (BMI) [Ratio] 36.91 kg/m2 Ronit Doan Work Phone: SV-Dtqumvbqav-Wtuxof [address] [place] Work Phone: 06-30-2021 13:39-0500 Body surface area Derived from formula 1.82 m2 Ronit Lopescayetano Work Phone: VG-Ynbadknwzg-Syqoxh [address] [place] Work Phone: 06-30-2021 13:39-0500 Body weight 85.73 kg Ronit Lopescayetano Work Phone: VI-Wjzazhpjxb-Wzzvqb [address] [place] Work Phone: 06-30-2021 13:39-0500 Diastolic blood pressure 76 mm[Hg] Ronit Lopescayetano Work Phone: NS-Lavdtsgeoh-Qfkbsp [address] [place] Work Phone: 06-30-2021 13:39-0500 Heart rate 82 /min Ronit Lopescayetano Work Phone: GA-Sqflszhpxd-Bxytic [address] [place] Work Phone: 06-30-2021 13:39-0500 SaO2% (BldA) [Mass fraction] 97 % Ronit Lopescayetano Work Phone: JV-Zofjpdlrhz-Tjyjgo [address] [place] Work Phone: 06-30-2021 13:39-0500 Systolic blood pressure 160 mm[Hg] Ronit Doan Work Phone: JM-Crhrcegccd-Lyygjd [address] [place] Work Phone: 06-21-2021 10:18-0500 Diastolic blood pressure 57 mm[Hg] Ronit Doan Work Phone: [facility] Work Phone: 06-21-2021 10:18-0500 Systolic blood pressure 138 mm[Hg] Ronit Doan Work Phone: [facility] Work Phone: 06-21-2021 10:00-0500 Body mass index (BMI) [Ratio] 36.81 kg/m2 Ronit Doan Work Phone: [facility] Work Phone: 06-21-2021 10:00-0500 Body surface area Derived from formula 1.82 m2 Ronit Doan Work Phone: [facility] Work Phone: 06-21-2021 10:00-0500 Body temperature 96.4 [degF] Ronit Doan Work Phone: [facility] Work Phone: 06-21-2021 10:00-0500 Body weight 85.5 kg Ronit Doan Work Phone: [facility] Work Phone: 06-21-2021 10:00-0500 Heart rate 85 /min Ronit Doan Work Phone: [facility] Work Phone: 04-17-2021 11:18-0500 Body temperature 97 [...] pressure 68 mm[Hg] Ronit Squiresk Work Phone: VU-Lguzcrtfau-Xhlfy Work Phone: 03-24-2021 15:12-0500 Systolic blood pressure 145 mm[Hg] Ronit Squiresk Work Phone: TV-Ensjsijxok-Wausc Work Phone: 03-24-2021 14:43-0500 Body height 152.4 cm Ronit Squiresk Work Phone: DM-Dpyklazdaq-Fcczc Work Phone: 03-24-2021 14:43-0500 Body mass index (BMI) [Ratio] 36.99 kg/m2 Ronit Squiresk Work Phone: MD-Zkcewatihs-Fjtkj Work Phone: 03-24-2021 14:43-0500 Body surface area Derived from formula 1.82 m2 Ronit Squiresk Work Phone: IS-Qqzlyrlgvl-Lsgke Work Phone: 03-24-2021 14:43-0500 Body weight 85.91 kg Ronit Squiresk Work Phone: QZ-Frqslkyaiy-Vewgw Work Phone: 03-24-2021 14:43-0500 Diastolic blood pressure 65 mm[Hg] Ronit Squiresk Work Phone: XZ-Dknztyfubc-Hfpvw Work Phone: 03-24-2021 14:43-0500 Heart rate 70 /min Ronit Doan Work Phone: HD-Qrqmviokyd-Azyrs Work Phone: 03-24-2021 14:43-0500 SaO2% (BldA) [Mass fraction] 97 % Ronit Doan Work Phone: TP-Jothhjsbnx-Pbrqp Work Phone: 03-24-2021 14:43-0500 Systolic blood pressure 154 mm[Hg] Ronit Doan Work Phone: RR-Bmrwvafzrr-Zwnfu Work Phone: 03-18-2021 13:32-0500 Body mass index (BMI) [Ratio] 36.95 kg/m2 Ronit Doan Work Phone: [facility] Work Phone: 03-18-2021 13:32-0500 Body surface area Derived from formula 1.82 m2 Ronit Doan Work Phone: [facility] Work Phone: 03-18-2021 13:32-0500 Body temperature 97.2 [degF] Ronit Doan Work Phone: [facility] Work Phone: 03-18-2021 13:32-0500 Body weight 85.82 kg Ronit Doan Work Phone: [facility] Work Phone: 03-18-2021 13:32-0500 Diastolic blood pressure 64 mm[Hg] Ronit Doan Work Phone: [facility] Work Phone: 03-18-2021 13:32-0500 Heart rate 79 /min Ronit Doan Work Phone: [facility] Work Phone: 03-18-2021 13:32-0500 Systolic blood pressure 140 mm[Hg] Ronit Doan Work Phone: [facility] Work Phone: 01-25-2021 09:46-0400 Body height 152.4 cm Ronit Doan Work Phone: [facility] Work Phone: 01-25-2021 09:46-0400 Body mass index (BMI) [Ratio] 36.13 kg/m2 Ronitko Doan Work Phone: [facility] Work Phone: 01-25-2021 09:46-0400 Body surface area Derived from formula 1.81 m2 Ronit Yaz Lopescayetano Work Phone: [facility] Work Phone: 01-25-2021 09:46-0400 Body weight 83.92 kg Ronit Doan Work Phone: [facility] Work Phone: 01-15-2021 10:37-0400 Body height 152.4 cm Ronitko Doan Work Phone: VS-Kyeewxxeor-Fghisv [address] [place] Work Phone: 01-15-2021 10:37-0400 Body mass index (BMI) [Ratio] 36.52 kg/m2 Ronitko Doan Work Phone: AK-Lbumgbagff-Fbjgex [address] [place] Work Phone: 01-15-2021 10:37-0400 Body surface area Derived from formula 1.81 m2 Ronit Yaz Lopesdileepjoni Work Phone: NF-Fsyqfnjsfv-Ndbfuz [address] [place] Work Phone: 01-15-2021 10:37-0400 Body weight 84.82 kg Ronit Lopesdileepjoni Work Phone: DV-Ovzsytwbdj-Gnrutq [address] [place] Work Phone: 01-15-2021 10:37-0400 Diastolic blood pressure 71 mm[Hg] Ronit Mukherjee Olimpia Work Phone: VG-Yjgwdrjaip-Drrurf [address] [place] Work Phone: 01-15-2021 10:37-0400 Heart rate 74 /min Ronit Mukherjee Olimpia Work Phone: US-Brkeloogas-Hieasi [address] [place] Work Phone: 01-15-2021 10:37-0400 SaO2% (BldA) [Mass fraction] 96 % Ronit Mukherjee Olimpia Work Phone: XS-Zytggbvtjl-Xxipiv [address] [place] Work Phone: 01-15-2021 10:37-0400 Systolic blood pressure 130 mm[Hg] Ronit Lopescayetano Work Phone: KC-Yklsihalxv-Rgbzgb [address] [place] Work Phone: 01-15-2021 10:37-0400 0 1 Ronit Yaz Olimpia Work Phone: JM-Qvkhijyxgn-Srtdze [address] [place] Work Phone: Comment on above: [employer] 01-07-2021 11:59-0400 SaO2% (BldA) [Mass fraction] 97 % Ronit Squiresjoni Work Phone: [facility] Work Phone: 01-07-2021 11:56-0400 Body height 152.4 cm Ronit Squiresjoni Work Phone: [facility] Work Phone: 01-07-2021 11:56-0400 Body mass index (BMI) [Ratio] 36.52 kg/m2 Ronit Squiresjoni Work Phone: [facility] Work Phone: 01-07-2021 11:56-0400 Body surface area Derived from formula 1.81 m2 Ronit Doan Work Phone: [facility] Work Phone: 01-07-2021 11:56-0400 Body weight 84.82 kg Ronit Doan Work Phone: [facility] Work Phone: 01-07-2021 11:56-0400 Diastolic blood pressure 75 mm[Hg] Ronit Doan Work Phone: [facility] Work Phone: 01-07-2021 11:56-0400 Heart rate 79 /min Ronit Doan Work Phone: [facility] Work Phone: 01-07-2021 11:56-0400 Systolic blood pressure 150 mm[Hg] Ronit Doan Work Phone: [facility] Work Phone: 12-07-2020 13:42-0400 Body height 152.4 cm Ronit Doan Work Phone: [facility] Work Phone: 12-07-2020 13:42-0400 Body mass index (BMI) [Ratio] 35.94 kg/m2 Ronit Doan Work Phone: [facility] Work Phone: 12-07-2020 13:42-0400 Body surface area Derived from formula 1.8 m2 Ronit Doan Work Phone: [facility] Work Phone: 12-07-2020 13:42-0400 Body temperature 98.1 [degF] Ronit Doan Work Phone: [facility] Work Phone: 12-07-2020 13:42-0400 Body weight 83.46 kg Ronit Doan Work Phone: [facility] Work Phone: 12-07-2020 13:42-0400 Diastolic blood pressure 74 mm[Hg] Ronit Doan Work Phone: [facility] Work Phone: 12-07-2020 13:42-0400 Heart rate 72 /min Ronit Doan Work Phone: [facility] Work Phone: 12-07-2020 13:42-0400 SaO2% (BldA) [Mass fraction] 95 % Ronit Doan Work Phone: [facility] Work Phone: 12-07-2020 13:42-0400 Systolic blood pressure 155 mm[Hg] Ronit Doan Work Phone: [facility] Work Phone: 11-17-2020 14:09-0400 Body height 152.4 cm Ronit Doan Work Phone: [facility] Work Phone: 11-17-2020 14:09-0400 Body mass index (BMI) [Ratio] 36.36 kg/m2 Ronit Doan Work Phone: [facility] Work Phone: 11-17-2020 14:09-0400 Body surface area Derived from formula 1.81 m2 Ronit Doan Work Phone: [facility] Work Phone: 11-17-2020 14:09-0400 Body weight 84.46 kg Ronit Doan Work Phone: [facility] Work Phone: 11-17-2020 14:09-0400 Diastolic blood pressure [...] height 152.4 cm Katharine Scales Work Phone: DV-Jijvzbdakc-Hqyhw Work Phone: 09-18-2020 13:19-0400 Body mass index (BMI) [Ratio] 35.94 kg/m2 Katharine Scales Work Phone: ZJ-Fqxgqamafm-Kpcny Work Phone: 09-18-2020 13:19-0400 Body surface area Derived from formula 1.8 m2 Katharine Scales Work Phone: NS-Rdustobpyg-Lwflr Work Phone: 09-18-2020 13:19-0400 Body weight 83.46 kg Katharine Scales Work Phone: WJ-Ufvhbdoojn-Rpxuk Work Phone: 09-18-2020 13:19-0400 Diastolic blood pressure 67 mm[Hg] Katharine Joni Jefersonangy Work Phone: QV-Mteuopxgpw-Dqwgn Work Phone: 09-18-2020 13:19-0400 Heart rate 80 /min Katharine Scales Work Phone: TW-Yjtgmlsxom-Mxfnt Work Phone: 09-18-2020 13:19-0400 SaO2% (BldA) [Mass fraction] 96 % Katharine K Jefersonangy Work Phone: IT-Ugpujgwzyd-Okytj Work Phone: 09-18-2020 13:19-0400 Systolic blood pressure 134 mm[Hg] Katharine Scales Work Phone: AT-Bpieqttdlb-Olfwq Work Phone: 09-03-2020 15:07-0400 Body mass index (BMI) [Ratio] 36.33 kg/m2 [facility] Work Phone: 09-03-2020 15:07-0400 Body surface area Derived from formula 1.81 m2 Timothy [facility]realdo [facility] Work Phone: 09-03-2020 15:07-0400 Body temperature 97.1 [degF] Timothy Lalitrealdo [place] [facility] Work Phone: 09-03-2020 15:07-0400 Body weight 84.37 kg Timothy Navaaldo [place] [facility] Work Phone: 09-03-2020 15:07-0400 Diastolic blood pressure 59 mm[Hg] Timothy [facility]itrealdo [facility] Work Phone: 09-03-2020 15:07-0400 Heart rate 78 /min Timothy Palacio DO [facility] Work Phone: 09-03-2020 15:07-0400 SaO2% (BldA) [Mass fraction] 95 % Timothy Palacio DO [facility] Work Phone: 09-03-2020 15:07-0400 Systolic blood pressure 137 mm[Hg] Timothy Palacio DO [facility] Work Phone: 09-03-2020 13:07-0400 Body mass index (BMI) [Ratio] 36.33 kg/m2 Katharine Scales Work Phone: XH-Fpzbujdlxr-Guulv Work Phone: 09-03-2020 13:07-0400 Body surface area Derived from formula 1.81 m2 Katharine Scales Work Phone: FA-Yfgzlgiyfc-Ccisv Work Phone: 09-03-2020 13:07-0400 Body temperature 97.1 [degF] Katharine Scales Work Phone: KS-Spqeflupjp-Gxghd Work Phone: 09-03-2020 13:07-0400 Body weight 84.37 kg Katharine Scales Work Phone: JT-Ldmdshmouu-Xhmfl Work Phone: 09-03-2020 13:07-0400 Diastolic blood pressure 59 mm[Hg] Katharine Scales Work Phone: CL-Xoglpfivhq-Fzeyu Work Phone: 09-03-2020 13:07-0400 Heart rate 78 /min Katharine Scales Work Phone: VS-Jkrqihmlnx-Fbkwi Work Phone: 09-03-2020 13:07-0400 SaO2% (BldA) [Mass fraction] 95 % Katharine Scales Work Phone: UY-Jdjozwydrg-Njipb Work Phone: 09-03-2020 13:07-0400 Systolic blood pressure 137 mm[Hg] Katharine Scales Work Phone: DT-Gayzaqttrg-Pqvso Work Phone: 2020 12:43-0500 BMI (Body Mass Index) 35.96 kg/m2 Shelley Fajardo EU-Mfnpknfyou-Sqdoij Work Phone: 2020 12:43-0500 Body weight 83.52 kg Shelley Fajardo [place]-Hprtsnxedi-Rn lakhwinder Work Phone: 2020 12:43-0500 BP Diastolic 73 mm[Hg] Shelley Conwayi VS-Nwezirsdcd-Gs lakhwinder Work Phone: Comment on above: Location: [facility]; Position: Sitting 2020 12:43-0500 BP Systolic 144 mm[Hg] Shelley Conwayi OL-Jzjxmxdryh-Ew lakhwinder Work Phone: Comment on above: Location: [facility]; Position: Sitting 2020 12:43-0500 BSA (Body Surface Area) 1.8 m2 Shelley Fajardo XR-Hfwrtcslgb-Gdqikj Work Phone: 2020 12:43-0500 Height 152.4 cm Shelley Conwayi NI-Cnnbglxyrv-Wx lakhwinder Work Phone: 2020 12:43-0500 Pulse (Heart Rate) 82 /min Shelley Conwayi [facility] Work Phone: 2020 12:43-0500 Pulse Oximetry 97 % Shelley Fajardo EO-Bmaqkibxit-Bc lakhwinder Work Phone: 04-06-2020 14:57-0500 BMI (Body Mass Index) 34.66 kg/m2 Shelley Fajardo [facility] Work Phone: 04-06-2020 14:57-0500 Body Temperature 97 [degF] Shelley Portillomaximinojayceeduardo [facility] Work Phone: 04-06-2020 14:57-0500 Body weight 83.21 kg Shelley Portillomaximinojayceeduardo [facility] Work Phone: 04-06-2020 14:57-0500 BP Diastolic 64 mm[Hg] Shelley Portillojoseryanneeduardo [facility] Work Phone: 04-06-2020 14:57-0500 BP Systolic 145 mm[Hg] Shelley Portillojoseryanneeduardo [facility] Work Phone: 04-06-2020 14:57-0500 BSA (Body Surface Area) 1.82 m2 Shelleyaldo Fajardo [facility] Work Phone: 04-06-2020 14:57-0500 Pulse (Heart Rate) 80 /min Shelley Scotty [facility] Work Phone: 04-06-2020 14:57-0500 Pulse Oximetry 98 % Shelley Portillojoseryanneeduardo [facility] Work Phone: 09-23-2019 13:14-0400 BMI (Body Mass Index) 32.9 kg/m2 Timothy Cohnicone [facility] Work Phone: 09-23-2019 13:14-0400 Body weight 80.29 kg Timothy Cohnicone [facility] Work Phone: 09-23-2019 13:14-0400 BSA (Body Surface Area) 1.8 m2 Timothy Cohnicone [facility] Work Phone: 09-23-2019 13:14-0400 Height 156.21 cm Timothy Cohnicone [facility] Work Phone: 07-16-2019 11:53-0400 BMI (Body Mass Index) 33.09 kg/m2 Timothy Palacio [facility] Work Phone: 07-16-2019 11:53-0400 Body Temperature 98.9 [degF] Timothy Palacio [facility] Work Phone: 07-16-2019 11:53-0400 Body weight 80.74 kg Timothy Palacio [facility] Work Phone: 07-16-2019 11:53-0400 BP Diastolic 67 mm[Hg] Timothy Palacio [facility] Work Phone: 07-16-2019 11:53-0400 BP Systolic 145 mm[Hg] Timothy Palacio [facility] Work Phone: 07-16-2019 11:53-0400 BSA (Body Surface Area) 1.81 m2 Timothy CohnVentureHirealdo [facility] Work Phone: 07-16-2019 11:53-0400 Pulse (Heart Rate) 83 /min Timothy Palacio [facility] Work Phone: 07-16-2019 11:53-0400 Pulse Oximetry 95 % Timothy Palacio [facility] Work Phone: 06-30-2019 11:51-0500 Body temperature 37.0 {degrees_C} Timothy [facility] Work Phone: Comment on above: NOTE: PATIENT RESULTS ARE NOT CORRECTED FOR TEMPERATURE. Ordering Provider: Marcus JORDAN [id number] 05-14-2019 15:03-0500 BMI (Body Mass Index) 33.83 kg/m2 Katharine Scales [facility] Work Phone: 05-14-2019 15:03-0500 Body Temperature 98 [degF] Katharine Scales [facility] Work Phone: Comment on above: Method: Oral 05-14-2019 15:03-0500 Body weight 82.56 kg Katharine Scales [facility] Work Phone: 05-14-2019 15:03-0500 BP Diastolic 60 mm[Hg] Katharine Scales [facility] Work Phone: Comment on above: Location: LUE; Position: Sitting 05-14-2019 15:03-0500 BP Systolic 118 mm[Hg] Katharine Scales [facility] Work Phone: Comment on above: Location: LUE; Position: Sitting 05-14-2019 15:03-0500 BSA (Body Surface Area) 1.83 m2 Katharine Mcnamarascar [facility] Work Phone: 05-14-2019 15:03-0500 Pulse (Heart Rate) 66 /min Katharine Mcnamarascar [facility] Work Phone: 05-14-2019 15:03-0500 Pulse Oximetry 95 % Katharine Scales [facility] Work Phone: 04-16-2019 17:43-0500 BMI (Body Mass Index) 33.48 kg/m2 [facility] Work Phone: 04-16-2019 17:43-0500 Body Temperature 98.1 [degF] [facility] Work Phone: Comment on above: Method: Oral 04-16-2019 17:43-0500 Body weight 81.7 kg [facility] Work Phone: 04-16-2019 17:43-0500 BP Diastolic 68 mm[Hg] [facility] Work Phone: Comment on above: Location: LUE; Position: Sitting 04-16-2019 17:43-0500 BP Systolic 122 mm[Hg] [facility] [employer] Work Phone: Comment on above: Location: LUE; Position: Sitting 04-16-2019 17:43-0500 BSA (Body Surface Area) 1.[address] [facility] [employer] Work Phone: 04-16-2019 17:43-0500 Pulse (Heart Rate) 73 /min [facility] [employer] Work Phone: 04-16-2019 17:43-0500 Pulse Oximetry 97 % [facility] [employer] Work Phone: Encounters Encounter Date Encounter Type Care Provider Facility Start: 03-14-2025 ambulatory Ronitko Lopescayetano [facility] Start: 03-14-2025 End: 03-18-2025 Evaluation and management of inpatient Francisco Godinez Facility:[facility] Start: 03-13-2025 ambulatory Ronit Mosescayetano Facility:[facility] Start: 02-17-2025 End: 02-17-2025 ambulatory [facility] Start: 02-17-2025 End: 02-17-2025 Subsequent hospital visit by physician [facility] 3 Device Remote [facility] 3 Comment on above: Complete atrioventri cular block (Multi); Presence of cardiac pacemaker Start: 02-10-2025 End: 02-10-2025 ambulatory [facility] Start: 02-10-2025 End: 02-10-2025 Subsequent hospital visit by physician [facility] 3 Device Remote [facility] 3 Comment on above: Complete atrioventri cular [...] multiple joints Start: 01-28-2025 End: 01-28-2025 ambulatory [facility] Start: 01-07-2025 End: 01-07-2025 ambulatory [facility] Start: 12-26-2024 End: 12-26-2024 ambulatory [facility] Start: 12-06-2024 ambulatory FELISHA DE OLIVEIRA SEBASTIÁN LACY Facility:[facility] Start: 11-27-2024 End: 11-27-2024 ambulatory [facility] Start: 11-12-2024 End: 11-12-2024 Subsequent hospital visit by physician Javier [facility] 3 Device Remote [facility] 3 Comment on above: Complete atrioventri cular block (Multi); Presence of cardiac pacemaker Start: 11-12-2024 End: 11-12-2024 ambulatory [facility] Start: 11-11-2024 End: 11-11-2024 ambulatory [facility] Start: 10-28-2024 End: 10-28-2024 Patient encounter [...] encounter status Ronit Doan DO Work Phone: [facility] Start: 10-28-2024 End: 10-28-2024 ambulatory [facility] Start: 10-28-2024 End: 10-28-2024 Encounter for general adult medical examination without abnormal findings [facility] Start: 10-28-2024 Encounter for genera l adult medical examination without abnormal findings [facility] Start: 10-10-2024 End: 10-10-2024 ambulatory [facility] Start: 10-08-2024 End: 11-04-2024 ambulatory [facility] Facility[facility] Start: 10-08-2024 End: 10-08-2024 ambulatory [facility] Facility[facility] Start: 10-01-2024 End: 10-05-2024 ambulatory [facility] Facility:[facility] Start: 09-26-2024 End: 09-26-2024 ambulatory [facility] Start: 09-12-2024 End: 09-12-2024 ambulatory [facility] Start: 09-11-2024 End: 09-11-2024 Office outpatient visit 15 minutes Jaylon Rita Work Phone: [place] [address] Comment on above: Carotid stenosis, bi lateral Start: 09-11-2024 End: 09-11-2024 ambulatory [facility] Start: 08-26-2024 End: 08-26-2024 Refill Héctor Fairchild MD Work Phone: [facility] Start: 08-24-2024 End: 08-24-2024 ambulatory Marnie Fairchild MD Work Phone: [facility] Start: 08-24-2024 End: 08-24-2024 Patient encounter procedure Marnie Fairchild MD Work Phone: [facility] Start: 08-23-2024 End: 08-23-2024 Telephone encounter Héctor Fairchild Work Phone: [facility] Comment on above: Refill Request Start: 08-22-2024 End: 08-22-2024 Subsequent hospital visit by physician Jaya [facility] 2 [facility] Comment on above: Carotid stenosis; Carotid stenosis, bilateral; Occlusion and stenosis of left carotid artery Start: 08-22-2024 End: 08-22-2024 ambulatory [facility] Start: 08-13-2024 End: 08-13-2024 Subsequent hospital visit by physician Javier [facility] [address] Device Remote [facility] 3 Comment on above: Paroxysmal atrial fi brillation (Multi); Complete atrioventricular block (Multi); Presence of cardiac pacemaker Start: 08-13-2024 End: 08-13-2024 ambulatory [facility] Start: 08-12-2024 End: 08-12-2024 ambulatory [facility] Start: 08-09-2024 End: 08-09-2024 Emergency department patient visit RONIT MOSESJoni Facility:[id number] Start: 07-29-2024 End: 07-29-2024 ambulatory [facility] Start: 07-24-2024 End: 07-24-2024 ambulatory Nawaf Mccarthy Facility:[facility] Start: 07-22-2024 End: 07-22-2024 Office outpatient visit 25 minutes Ronit Doan DO Work Phone: [facility] Comment on above: Hypercholesterolemia (Primary Dx); Essential hypertension; Type 2 diabetes mellitus with hypoglycemia without coma, without long-term current use of insulin; Permanent atrial fibrillation (Multi); Medication monitoring encounter Start: 07-22-2024 End: 07-22-2024 ambulatory [facility] Start: 07-17-2024 ambulatory Nawaf Mccarthy Facility :[facility] Start: 07-17-2024 Non-patient / Non-visit Dr. Hari [facility] Start: 07-17-2024 End: 07-17-2024 Admission to same day surgery center Dr. Nawaf Mccarthy MD [facility] Start: 07-17-2024 End: 07-17-[address] Ronit Doan DO Work Phone: [facility] Work Phone: Start: 07-11-2024 End: 07-11-[address] Nawaf Mccarthy MD -[facility] Work Phone: Start: 07-11-2024 End: 07-11-2024 ambulatory Nawaf Mccarthy Facility:[facility] Start: 07-05-2024 End: 07-05-2024 Subsequent hospital visit by physician Javier Glover Ultrasound 2 [facility] Comment on above: Palpable mass of kellie ast; Unspecified lump in the right breast, upper inner quadrant Start: 07-05-2024 End: 07-05-2024 ambulatory [facility] Start: 07-05-2024 End: 07-05-2024 Subsequent hospital visit by physician Javier Glover Mammo [address] [facility] Comment on above: Breast pain Start: 07-05-2024 End: 07-05-2024 ambulatory [facility] Start: 07-04-2024 End: 07-04-2024 ambulatory [facility] Start: 06-20-2024 End: 06-20-2024 Office outpatient visit 25 minutes Ronit Mosesjoni DO Work Phone: [facility] Comment on above: Mass of upper inner quadrant of right breast (Primary Dx); Warfarin-induced coagulopathy (Multi); Permanent atrial fibrillation (Multi); On warfarin therapy Start: 06-20-2024 End: 06-20-2024 ambulatory [facility] Start: 06-11-2024 End: 06-11-2024 [facility] Start: 05-24-2024 End: 05-24-2024 Office outpatient visit 25 minutes Timothy Palacio DO Work Phone: [facility] Comment on above: High risk medication use (Primary Dx); Complete atrioventricular block (Multi); Presence of cardiac pacemaker; Permanent atrial fibrillation (Multi); Chronic heart failure with preserved ejection fraction Start: 05-24-2024 End: 05-24-2024 ambulatory TIMOTHY PALACIO Start: 05-21-2024 End: 05-21-2024 ambulatory [facility] Start: 05-15-2024 End: 05-15-2024 Subsequent hospital visit by physician Keeley Palacio [facility] Comment on above: Atrioventricular blo ck, complete (Multi) Start: 05-15-2024 End: 05-15-2024 ambulatory TIMOTHY Perez [facility] Start: 04-23-2024 End: 04-23-2024 Office outpatient visit 25 minutes Ronit Doan DO Work Phone: [facility] Comment on above: Hypercholesterolemia (Primary Dx); Paroxysmal atrial fibrillation (Multi); Type 2 diabetes mellitus without complication, without long-term current use of insulin (Multi); Spinal stenosis of lumbar region with neurogenic claudication; Essential hypertension Start: 04-23-2024 End: 04-23-2024 ambulatory [facility] Start: 04-23-2024 End: 04-23-[address] [facility] Start: 03-25-2024 End: 03-25-2024 ambulatory [facility] Start: 02-16-2024 End: 02-16-[address] [facility] Start: 02-13-2024 End: 02-13-2024 Subsequent hospital visit by physician Javier [facility] [address] [facility] 3 Comment on above: Sinoatrial node dysf unction (Multi); Presence of cardiac pacemaker Start: 02-09-2024 End: 02-09-[address] [facility] Start: 01-29-2024 End: 01-29-2024 Office outpatient visit [...] 01-09-2024 Emergency department patient visit RONIT DOAN Facility:[id number] Start: 01-03-2024 End: 01-03-2024 Emergency department patient visit ZAK LEPE MD [facility] Start: 11-21-2023 End: 11-21-2023 ambulatory HÉCTOR FAIRCHILD Facility:[facility] Start: 11-21-2023 End: 11-21-2023 Patient encounter procedure Héctor Fairchild MD Work Phone: [facility] Comment on above: Spinal stenosis, lum bar region with neurogenic claudication (Primary Dx); CAD, multiple vessel; AICD (automatic cardioverter/defibrillator) present; Cardiac pacemaker in situ; Spinal stenosis of lumbar region with neurogenic claudication Start: 11-14-2023 End: 11-14-2023 Office outpatient visit 25 minutes Charline Hagen DO Work Phone: [facility] 3 Comment on above: Atherosclerosis of c oronary artery of circle heart, unspecified vessel or lesion type, unspecified whether angina present (Primary Dx); Heart failure with preserved ejection fraction, unspecified HF chronicity (Multi); Essential hypertension; Paroxysmal atrial fibrillation (Multi); Stenosis of carotid artery, unspecified laterality; Hypercholesterolemia; High triglycerides; Presence of cardiac pacemaker Start: 10-23-2023 End: 10-23-2023 Subsequent hospital visit by physician Javier [facility] [address] [facility] 3 Comment on above: Paroxysmal atrial fi brillation (Multi); Complete atrioventricular block (Multi); Presence of cardiac pacemaker Start: 10-16-2023 End: 10-16-2023 Office outpatient visit 15 minutes Timothy Palacio DO Work Phone: [facility] Comment on above: Complete atrioventri [...] 15 minutes Jaylon Kiser DO Work Phone: [facility] 2 Comment on above: Carotid stenosis (Pr imary Dx); Carotid stenosis, bilateral Start: 08-22-2023 End: 08-22-2023 Subsequent hospital visit by physician Javier Clement 3 Vasc Lab [facility] 3 Comment on above: Carotid stenosis; Carotid stenosis, bilateral Start: 08-15-2023 End: 08-15-2023 Subsequent hospital visit by physician Moriah Palacio [facility] 3 Comment on above: Complete atrioventri cular block (CMS/HCC); Presence of cardiac pacemaker Start: 08-14-2023 End: 08-14-2023 Subsequent hospital visit by physician Javier Clement 3 Device Remote [facility] 3 Comment on above: Atrioventricular blo ck, [...] Subsequent hospital visit by physician Bimal Garg [facility] 1 [facility] Comment on above: Visit for [...] encounter status Ronit Doan DO Work Phone: [facility] Work Phone: Start: 05-16-2023 End: 05-16-2023 Office outpatient visit 25 minutes Charline Hagen DO Work Phone: [facility] 3 Comment on above: Stenosis of carotid artery, unspecified laterality (Primary Dx); Heart failure with preserved ejection fraction, unspecified HF chronicity (CMS/HCC); Atherosclerosis of coronary artery of circle heart, unspecified vessel or lesion type, unspecified whether angina present; Essential hypertension; Paroxysmal atrial fibrillation (CMS/HCC); Dyslipidemia; Presence of cardiac pacemaker Start: 05-10-2023 End: 05-10-2023 Office outpatient visit 15 minutes Yg López MD Work Phone: [facility] 4 Comment on above: Left [...] Start: 04-24-2023 End: 04-24-2023 ambulatory KIRA OLVERA [facility] Start: 04-24-2023 End: 04-24-2023 Subsequent hospital visit by physician Kira Olvera MD Work Phone: [facility] Bld[facility] A 7 Comment on above: Left hip pain (Prima ry Dx) Start: 04-23-2023 ambulatory Room Emergency Radiolog y Comment on above: Radio Gen RMP Start: 04-23-2023 Patient encounter procedure Room Katharine rgency [facility] Start: 04-19-2023 End: 04-19-2023 Subsequent hospital visit by physician Keeley Palacio [facility] Comment on above: Sinoatrial node dysf unction (CMS/HCC) Start: 04-07-2023 End: 04-07-2023 Subsequent hospital visit by physician Med Echo/Stress [facility] Comment on above: Dyspnea on exertion Start: 03-21-2023 End: 03-21-2023 Subsequent hospital visit by physician Javier [facility] [address] [facility] 3 Comment on above: Cardiac [...] (CMS/HCC) Start: 01-18-[address] Ronit Doan Facility:[id number] Start: 01-18-2023 Patient encounter procedure Miriam Doan Work Phone: [facility] Work Phone: Start: 01-04-2023 Patient encounter procedure Miriam Doan Work Phone: [facility] Work Phone: Start: 01-04-[address] Ronit Doan Facility:[id number] Start: 12-28-[address] Ronit Doan Facility:[id number] Start: 12-20-2022 Patient encounter procedure Miriam Doan Work Phone: [facility] Work Phone: Start: 12-20-[address] Ronit Doan Facility:[id number] Start: 12-15-2022 End: 12-15-2022 Office outpatient visit 25 minutes Ronit Doan DO Work Phone: [facility] Comment on above: Cellulitis of right lower extremity (Primary Dx) Start: 12-13-2022 Patient encounter procedure Miriam Doan Work Phone: [facility] Work Phone: Start: 12-13-[address] Ronit Doan Facility:[id number] Start: 12-10-2022 Tod Howell [facility] Start: 11-29-[address] Ronit Doan Facility:[id number] Start: 11-15-2022 Patient encounter procedure Miriam Doan Work Phone: [facility] Work Phone: Start: 11-15-[address] Ronit Doan Facility:[id number] Start: 11-11-2022 End: 11-11-2022 Office outpatient visit 25 minutes Ronit Doan DO Work Phone: [facility] Comment on above: Elevated glucose (Pr imary Dx); Prediabetes; Longstanding persistent atrial fibrillation (CMS/HCC); Essential hypertension; Moderate persistent asthma without complication; Chronic heart failure with preserved ejection fraction (CMS/HCC) Start: 11-09-2022 Patient encounter procedure Miriam Doan Work Phone: [facility] Work Phone: Start: 11-09-[address] Timothy Palacio Facility:[id number] Start: 11-01-2022 AUDIT Ronit Doan Work Phone: TL-Rozcsnrfan-Vskxh Work Phone: Start: 11-01-[address] Ronit Doan Facility:[id number] Start: 10-26-2022 Patient encounter procedure Miriam Doan Work Phone: [facility] Work Phone: Start: 10-26-[address] Ronit Doan Facility:[id number] Start: 10-26-2022 PACVIRTUAL, Provider : MORIAH SHETH [employer]OTE PACEMAKER,[id number], Status: Pen, Time: 7:30 AM Ronit Doan Work Phone: [facility]Oiwksfgdj[facility] Work Phone: Start: 10-25-2022 Patient encounter procedure Miriam Doan Work Phone: [facility]Rsssdwtisd[facility] Work Phone: Start: 10-25-2022 Telephone encounter Ronit guerra Work Phone: [facility] Work Phone: Start: 10-24-2022 AUDIT Ronit Doan Work Phone: HA-Eermgzukzb-Hjlmp Work Phone: Start: 10-18-[address] Ronit Doan Facility:[id number] Start: 10-14-[address] Ronit Doan Facility:[id number] Start: 10-11-[address] Ronit Doan Facility:[id number] Start: 10-04-2022 End: 10-04-2022 Office outpatient visit 25 minutes Ronit Doan DO Work Phone: [facility] Comment on above: Prediabetes (Primary Dx); Longstanding persistent atrial fibrillation (CMS/HCC); Moderate persistent asthma without complication Start: 10-04-2022 Patient encounter procedure Miriam Doan Work Phone: [facility] Work Phone: Start: 10-04-[address] Ronit Doan Facility:[id number] Start: 09-27-[address] Ronit Doan Facility:[id number] Start: 09-21-[address] Ronit Doan Facility:[id number] Start: 09-15-2022 Office outpatient vi sit 15 minutes Ronit Doan Work Phone: [facility] Work Phone: Start: 09-15-2022 Patient encounter procedure Miriam Doan Work Phone: [facility] Work Phone: Start: 09-15-[address] Ronit Doan Facility:[id number] Start: 09-14-[address] Ronit Doan Facility:[id number] Start: 09-09-2022 Patient encounter procedure Miriam Doan Work Phone: [facility] Work Phone: Start: 09-09-[address] Ronit Doan Facility:[id number] Start: 09-06-[address] Ronit Doan Facility:[id number] Start: 08-30-2022 Patient encounter procedure Miriam Doan Work Phone: [facility] Work Phone: Start: 08-30-[address] Roint Doan Facility:[id number] Start: 08-24-2022 Patient encounter procedure Miriam Doan Work Phone: [facility] Work Phone: Start: 08-24-[address] Ronit Doan Facility:[id number] Start: 08-19-2022 Patient encounter procedure Miriam Doan Work Phone: [facility] Work Phone: Start: 08-19-[address] Ronit Doan Facility:[id number] Start: 08-18-2022 [facility], Provider: Jaylon Kiser, Status: Pen, Time: 11:10 AM Ronit Doan Work Phone: [facility] Work Phone: Start: 08-18-2022 Patient encounter procedure Miriam Doan Work Phone: [facility] Work Phone: Start: 08-18-[address] Ronit Doan Facility:[id number] Start: 08-16-2022 Patient encounter procedure Miriam Doan Work Phone: [facility] Work Phone: Start: 08-16-[address] Ronit Doan Facility:[id number] Start: 08-11-2022 End: 08-11-2022 Office outpatient visit 25 minutes Ronit Doan DO Work Phone: [facility] Comment on above: Chronic atrial fibri llation (CMS/HCC) (Primary Dx); Prediabetes; Hyperglycemia; Medication monitoring encounter; Chronic low back pain, unspecified back pain laterality, unspecified whether sciatica present; Warfarin anticoagulation Start: 08-08-2022 Patient encounter procedure Miriam Doan Work Phone: [facility] Work Phone: Start: 08-08-2022 ambulatory Jaylon Kiser Facility: [id number] Start: 07-18-[address] Timothy Palacio Facility:[id number] Start: 07-18-2022 Patient encounter procedure Miriam Doan Work Phone: [facility]Qezpnsqzxd-Rcgud Work Phone: Start: 06-29-2022 Patient encounter procedure Miriam Doan Work Phone: [facility] Work Phone: Start: 06-29-[address] Ronit Doan Facility:[id number] Start: 06-26-2022 AUDIT Ronit Doan Work Phone: [facility] Work Phone: Start: 06-09-2022 Chart Update Ronit Doan Work Phone: [facility] Work Phone: Start: 06-06-[address] Ronit Doan Facility:[id number] Start: 05-26-[address] Ronit Doan Facility:[id number] Start: 05-18-2022 AUDIT Ronit Doan Work Phone: [facility] Work Phone: Start: 05-10-[address] Timothy Palacio Facility:[id number] Start: 04-27-2022 AUDIT Ronit Doan Work Phone: CC-Cogbiijhch[facility]Nqrvu Work Phone: Start: 04-27-[address] Timothy [...] Doan Facility:[id number] Start: 03-09-[address] Yg Lópze Facility:[id number] Start: 03-09-2022 Postop follow up vis it related to original px Ronit Doan Work Phone: [facility] MAC4 100 DO Work Phone: Start: 03-01-2022 Chart Update Ronit Doan Work Phone: [facility] MAC4 100 DO Work Phone: Start: 03-01-2022 End: 03-01-[address] Yg López Facility:[id number] Start: 02-23-[address] Yg López Facility:[id number] Start: 02-23-2022 Encounter for prepro cedural cardiovascular examination Dr. Yg López [facility] Start: 02-23-2022 Encounter for prepro cedural laboratory examination Dr. Yg López [facility] Start: 02-17-2022 Patient encounter procedure Miriam Doan Work Phone: [facility] 202 Work Phone: Start: 02-17-[address] Ronit Doan Facility:[id number] Start: 02-07-2022 ambulatory Timothy Palacio Facility :[id number] Start: 02-01-2022 Patient encounter procedure Miriam Doan Work Phone: [facility] Work Phone: Start: 02-01-2022 ambulatory Jaylon Kiser Facility: [id number] Start: 01-17-2022 Office outpatient vi sit 25 minutes Ronit Doan Work Phone: [facility] Work Phone: Start: 11-25-[address] Timothy Palacio Facility:[id number] Start: 11-02-2021 Office outpatient vi sit 10 minutes Ronit Doan Work Phone: [facility] Work Phone: Start: 09-21-2021 Rx Renewal Ronit Doan Work Phone: UR-Ujackqxbjf-Vjltwh 140 [place] Work Phone: Start: 09-21-2021 Office outpatient vi sit 25 minutes Ronit Lopescayetano Work Phone: CV-Cxxrbmzbqi-Bnjdo Work Phone: Start: 09-20-2021 Office outpatient vi sit 25 minutes Ronit Doan Work Phone: [facility] Work Phone: Start: 09-20-2021 Patient encounter procedure Miriam daniel Yaz Olimpia Work Phone: -[facility] Work Phone: Start: 08-19-2021 Postop follow up vis it related to original px Ronit Mukherjee Mosescayetano Work Phone: -[facility] 202 Work Phone: Start: 07-30-2021 End: 08-01-2021 Evaluation and management of inpatient Jaylon Major [facility] 177 01 Other Phone (unformatted): [phone] Start: 07-15-2021 Patient encounter procedure Miriam fredy Doan Work Phone: [facility] Work Phone: Start: 07-02-2021 Chart Update Ronit Doan Work Phone: YN-Kkrdiqixxp-[place] Work Phone: Start: 06-30-2021 Office outpatient vi sit 15 minutes Ronit Doan Work Phone: DG-Cyfmbipzoh-Khqvrm 140 [place] Work Phone: Start: 02-14-2022 Office outpatient vi sit 25 minutes Ronit Doan Work Phone: [facility] Work Phone: Start: 05-11-2021 AUDIT Ronit Doan Work Phone: [facility] Work Phone: Start: 05-11-2021 CAROTID, Provider: Jerome ALFONSO 3 MAC 03 VASCULAR LAB,[facility] VASC, Status: Pen, Time: 11:30 AM Ronit Squiresjoni Work Phone: MD-Stoshhucsb-Njuzw Work Phone: Start: 04-27-2021 Patient encounter procedure Miriam Mukherjee Mosescayetano Work Phone: CL-Avcjonlrqt-Zhxgs Work Phone: Start: 04-26-2021 AUDIT Ronit Doan [...] sit 40 minutes Ronit Doan Work Phone: OC-Gocpfyjdyj-Tiavw Work Phone: Start: 03-19-2021 Chart Update Ronit Doan Work Phone: [facility] Work Phone: Start: 03-10-2021 AUDIT Ronit Doan Work Phone: [facility] Work Phone: Start: 03-05-2021 AUDIT Ronit Doan Work Phone: [facility] Work Phone: Start: 02-18-2021 AUDIT Ronit Doan Work Phone: [facility] 160 Work Phone: Start: 02-01-2021 Patient encounter procedure Miriam Doan Work Phone: [facility] Work Phone: Start: 01-18-2021 AUDIT Ronit Doan Work Phone: BB-Eeqyihqrqf-Ymjut Work Phone: Start: 01-15-2021 Office outpatient vi sit 25 minutes Ronit Doan Work Phone: HR-Qiuvxvxvqh-Kemnnu 140 [place] Work Phone: Start: 01-07-2021 Patient [...] Work Phone: Start: 10-20-2020 AUDIT Katharine Quinones [employer] Management Work Phone: [facility] Work Phone: Start: 10-09-2020 Chart Update Katharine Quinones [employer] Work Phone: FU-Xxjwcrlroj-Noilqh 140 [place] Work Phone: Start: 09-18-2020 Office outpatient vi sit 25 minutes Katharine Joni Scales Work Phone: IG-Rrgbbiptyn-Mqjfa Work Phone: Start: 09-03-2020 Patient encounter procedure Timothy santos DO -[facility] Work Phone: Start: 07-22-2020 Patient encounter procedure Timothy santos DO [facility] Work Phone: Start: 2020 Patient encounter procedure Shelley samaniego GK-Anhfzmhaau-Dpvdbx Work Phone: Start: 05-12-2020 Patient encounter procedure [facility] Work Phone: Start: 04-06-2020 Patient encounter procedure Shelley samaniego -[facility] Work Phone: Start: 01-21-2020 Patient encounter procedure Shelley samaniego -[facility] Work Phone: Start: 10-29-2019 Patient encounter procedure Shelley Portillo danette [facility] Work Phone: Start: 09-23-2019 Patient encounter procedure Timothy santos [facility] Work Phone: Start: 08-13-2019 Patient encounter procedure Timothy santos [facility] Work Phone: Start: 08-05-2019 Patient encounter procedure [facility]antos [employer] [facility] Work Phone: Start: 07-23-2019 Patient encounter procedure Timothy [facility]antos [employer] [facility] Work Phone: Start: 07-16-2019 Patient encounter procedure Timothy santos [employer] Work Phone: Start: 05-29-2019 Nursing evaluation o f patient and report Timothy Palacio [facility] Work Phone: Start: 05-21-2019 Patient encounter procedure [facility] Work Phone: Start: 05-14-2019 Patient encounter procedure Katharine Scales [facility] Work Phone: Start: 04-30-2019 Patient encounter procedure Soniya Ansari [facility] Work Phone: Start: 04-16-2019 [facility] Work Phone: Start: 02-12-2019 Patient encounter procedure Soniya [facility] [employer] Work Phone: Start: 02-01-2019 Patient encounter procedure Soniya [facility] [employer] Work Phone: Start: 01-22-2019 [facility] Work Phone: Start: 11-27-2018 Patient encounter procedure Soniya [facility] [employer] Work Phone: Start: 11-06-2018 Patient encounter procedure Soniya carlson [facility] [employer] Work Phone: Start: 10-16-2018 Patient encounter procedure Soniya carlson [facility] [employer] Work Phone: Start: 08-01-2018 Patient encounter procedure Soniya carlson [facility] [employer] Work Phone: Start: 01-31-2018 Patient encounter procedure Soniya carlson [facility] [employer] Work Phone: Start: 01-23-2018 Patient encounter procedure Soniya carlson [facility] [employer] Work Phone: Start: 12-07-2017 Patient encounter Collin Serrato acility:PCG Start: 09-14-2017 Patient encounter Ori Salomon Facil ity:PCG Start: 09-14-2017 Patient encounter Ayde Jacobo Fa cility:PCG Start: 09-12-2017 End: 10-06-2017 Patient encounter Ayde Jacobo Facility:PCG Start: 07-25-2017 Patient encounter procedure Soniya carlson [facility] [employer] Work Phone: Start: 06-24-2017 End: 06-25-2017 Emergency [...] Patient encounter procedure Timothy Lalitre carlson DO -[facility] Work Phone: End: 10-14-2022 Patient encounter procedure Ronit Doan Work Phone: YZ-Vliyuddxoe-Upegj Work Phone: Procedures Date Procedure Procedure Detail [...] 1996 panel - S oneal or Plasma [facility] Start: 01-29-2024 Prothrombin time Ronitko Doan DO [...] Comment on above: x2; Finger operation Ronitko monteiro Work Phone: Comment on above: [03/01/2022, Dr. Chavo López]: Right middle finger A1 linn release; History of Pacemaker Placement Shantel Ansari Comment on above: 2009: [employer] Sens ia SEDR01 #[id number]; History of Ventricul ar Septal Defect Repair [...] DTaP/Tdap/Td Vaccines (2 - Td or Tdap) [facility] Start: 09-13-2028 Urine microalbumin profile DTaP,Tdap,Td Vaccine (2 - Td or Tdap) [facility] Start: 08-17-2027 Lipid panel Lipid Panel [facility] Start: 10-29-2025 Medicare Annual Wellness Visit Medicare Annual Wellness Visit (AWV) [facility] Start: 10-21-2025 Creatinine measurement Creatinine Le rocio [facility] Start: 10-21-2025 Lipid panel Lipid Panel [facility] Start: 10-21-2025 Potassium measurement Potassium Leve l [facility] Start: 09-04-2025 End: 09-04-2025 Patient encounter procedure 09/04/2025 10:30 AM EDT Office Visit [facility] 2 [address] [facility] [address] [facility] [address] [place] [phone] Jaylon Kiser DO [address] [employer] [facility] [address] [place] [address] [facility] 2 Start: 08-28-2025 Glaucoma screening Diabetes: R etinopathy Screening [facility] Start: 08-26-2025 End: 08-26-2025 Patient encounter procedure 08/26/2025 1:00 PM EDT Appointment [facility] [address] [place] [phone] [facility] Start: 08-23-2025 End: 09-11-2026 US.doppler Carotid arteries - bilateral Vascular US Carotid Artery Duplex Bilateral Vascular Ultrasound Routine Carotid stenosis, bilateral Expected: 08/23/2025 (Approximate), Expires: 09/11/2026 [facility] Service Area Work Phone: Comment on above: Expected: 08/23/2025 (Approximate), Expires: 09/11/2026 Start: 07-05-2025 Screening for malignant neoplasm of breast Mammogram [facility] Start: 2025 RSV Vaccine (1 - 1-dose 75+ series) RSV Vaccine (1 - 1-dose 75+ series) [facility] Start: 04-24-2025 End: 04-24-2025 Patient encounter procedure 04/24/2025 1:00 PM EST [facility] [address] [facility] [address] [place] [phone] Ronit Doan DO [address] [facility], [facility] [address] [place] [address] [facility] Start: 04-23-2025 Creatinine measurement Creatinine Le rocio [facility] Start: 04-23-2025 Lipid panel Lipid Panel [facility] Start: 04-23-2025 Potassium measurement Potassium Leve l [facility] Start: 04-22-2025 Hemoglobin A1c measurement Diabetes: Hemoglobin A1C [facility] Start: 04-21-2025 End: 04-21-2025 Patient encounter procedure 04/21/2025 11:00 AM EST Office Visit [facility] [address] [place] [phone] Timothy Palacio, DO [address], [address] [place] [address] [facility] Start: 04-02-2025 End: 04-02-2025 Patient encounter procedure 04/02/2025 11:30 AM EST Appointment [facility] 3 [address] [facility] [address] [place] [address] [facility] 3 Start: 03-29-2025 Glaucoma screening Diabetes: R etinopathy Screening [facility] Start: 03-25-2025 End: 03-25-2025 Patient encounter procedure 03/25/2025 2:30 PM EST Office Visit [facility] [address] [place] [phone] Crispin Yanez MD PhD [address], [address] [place], [place] [id number] [facility] Start: 03-13-2025 End: 03-13-2025 Clinical Support 03/13/2025 1:30 PM EST Clinical Support [facility] [place] [phone] [facility] Start: 02-17-2025 End: 02-17-2025 Clinical Support 02/17/2025 11:00 AM EDT Clinical Support [facility] [address] [place] [address] [facility] Start: 01-28-2025 End: 01-28-2026 Basic metabolic 2000 panel - Serum or Plasma Basic metabolic panel Lab Routine Essential hypertension Type 2 diabetes mellitus with hypoglycemia without coma, without long-term current use of insulin Expected: 01/28/2025 (Approximate), Expires: 01/28/2026 [facility] Work Phone: Comment on above: Expected: 01/28/2025 (Approximate), Expires: 01/28/2026 Start: 01-28-2025 End: 01-28-2026 Hemoglobin A1c/Hemoglobin.total in Blood Hemoglobin A1C Lab Routine Essential hypertension Type 2 diabetes mellitus with hypoglycemia without coma, without long-term current use of insulin Expected: 01/28/2025 (Approximate), Expires: 01/28/2026 [facility] Service Area Work Phone: Comment on above: Expected: 01/28/2025 (Approximate), Expires: 01/28/2026 Start: 01-28-2025 End: 01-28-2025 Patient encounter procedure 01/28/2025 1:00 PM EDT Office Visit [facility] [address] [place] [address] Ronit Doan DO [address] [facility], [address] [place] [address] [facility] Start: 01-21-2025 Hemoglobin A1c measurement Diabetes: Hemoglobin A1C [facility] Start: 01-06-2025 COVID-19 Vaccine ( season) COVID-19 Vaccine ( season) [facility] Start: 01-06-2025 Influenza vaccination Influenza Vacc ine (#1) [facility] Start: 12-27-2024 Glaucoma screening Diabetes: R etinopathy Screening [facility] Start: 12-09-2024 End: 12-09-2024 Patient encounter procedure 12/09/2024 11:15 AM EDT Office Visit [facility] 3 [address] [facility] [address] [place] [phone] Charline Hagen DO [address] [facility] 3, [address] [place], [place] [phone] [facility] 3 Start: 11-27-2024 End: 11-27-2024 Clinical Support 11/27/2024 11:00 AM EDT Clinical Support [facility] [address] [facility] [address] [place] [phone] [facility] Start: 11-20-2024 BP Controlled (<130/80) BP Controlled (<130/80) [facility] Start: 11-11-2024 End: 11-11-2024 Clinical Support 11/11/2024 1:30 PM EDT Clinical Support [facility] [address] [place] [phone] [facility] Start: 10-28-2024 End: 10-28-2024 Patient encounter procedure 10/28/2024 2:15 PM EDT Office Visit [facility] [place] [phone] Ronit Doan DO [address] [facility], [address] [place] [address] [facility] Start: 10-22-2024 Hemoglobin A1c measurement Diabetes: Hemoglobin A1C [facility] Start: 09-12-2024 End: 09-12-2024 Clinical Support 09/12/2024 10:30 AM EDT Clinical Support [facility] [address] [place] [phone] [facility] Start: 09-11-2024 End: 09-11-2024 Patient encounter procedure 09/11/2024 11:00 AM EDT Office Visit [facility] 2 [address] [facility] 2 [facility] [address] [place] [phone] Jaylon Kiser DO [address] [facility] [address] [place] [address] [facility] 2 Start: 08-29-2024 Glaucoma screening Diabetes: R etinopathy Screening [facility] Start: 08-22-2024 End: 08-22-2024 Patient encounter procedure 08/22/2024 10:30 AM EDT Appointment [facility] [address] [place] [address] [facility] Start: 08-21-2024 End: 08-23-2025 US.doppler Carotid arteries - bilateral Vascular US carotid artery duplex bilateral Vascular Ultrasound Routine Carotid stenosis Carotid stenosis, bilateral Expected: 08/21/2024 (Approximate), Expires: 08/23/2025 [facility] Service Area Work Phone: Comment on above: Expected: 08/21/2024 (Approximate), Expires: 08/23/2025 Start: 07-25-2024 End: 07-25-2024 Clinical Support 07/25/2024 10:30 AM EDT Clinical Support [facility] [address] [place] [phone] [facility] Start: 07-22-2024 End: 07-22-2025 CBC panel - Blood by Automated count CBC Lab Routine Medication monitoring encounter Expected: 07/22/2024 (Approximate), Expires: 07/22/2025 [facility] Work Phone: Comment on above: Expected: 07/22/2024 (Approximate), Expires: 07/22/2025 Start: 07-22-2024 End: 07-22-2025 Comprehensive metabolic 2000 panel - Serum or Plasma Comprehensive Metabolic Panel Lab Routine Hypercholesterolemia Essential hypertension Expected: 07/22/2024 (Approximate), Expires: 07/22/2025 [facility] Service Area Work Phone: Comment on above: Expected: 07/22/2024 (Approximate), Expires: 07/22/2025 Start: 07-22-2024 Hemoglobin A1c measurement Diabetes: Hemoglobin A1C [facility] Start: 07-22-2024 End: 07-22-2025 Hemoglobin A1c/Hemoglobin.total in Blood Hemoglobin A1C Lab Routine Type 2 diabetes mellitus with hypoglycemia without coma, without long-term current use of insulin Expected: 07/22/2024 (Approximate), Expires: 07/22/2025 [facility] Work Phone: Comment on above: Expected: 07/22/2024 (Approximate), Expires: 07/22/2025 Start: 07-22-2024 End: 07-22-2025 Lipid 1996 panel - Serum or Plasma Lipid Panel Lab Routine Hypercholesterolemia Essential hypertension Expected: 07/22/2024 (Approximate), Expires: 07/22/2025 [facility] Work Phone: Comment on above: Expected: 07/22/2024 (Approximate), Expires: 07/22/2025 Start: 07-17-2024 [facility] Start: 07-16-2024 End: 07-16-2024 Patient encounter procedure 07/16/2024 1:00 PM EDT Office Visit [facility] [place] [phone] Ronit Doan DO [address] [facility], [address] [place] [address] [facility] Start: 07-04-2024 End: 07-04-2024 Clinical Support 07/04/2024 10:30 AM EST Clinical Support [facility] [place] [phone] [facility] Start: 06-21-2024 Creatinine measurement Creatinine Le rocio [facility] Start: 06-21-2024 Hepatitis B screening Urine Al bumin:Creatinine Ratio [facility] Start: 06-21-2024 Hepatitis B surface antibody level LDL Cholesterol [facility] Start: 06-21-2024 Lipid panel Lipid Panel [facility] Start: 06-21-2024 Potassium measurement Potassium Leve l [facility] Start: 06-21-2024 Screening for malignant neoplasm of breast [facility] Start: 06-21-2024 Urine screening for protein Diabetes: Urine Protein Screening [facility] Start: 06-20-2024 End: 06-20-2024 Clinical Support 06/20/2024 10:30 AM EST Clinical Support [facility] [address] [place] [phone] [facility] Start: 06-13-2024 BP Controlled (<130/80) BP Controlled (<130/80) [facility] Start: 06-11-2024 End: 06-11-2024 Patient encounter procedure 06/11/2024 2:00 PM EST Office Visit [facility] 3 [address] [facility] 3 [facility] [address] [place] [phone] Charline Hagen, DO [address], [address] [place], [place] [phone] [facility] 3 Start: 06-08-2024 Medicare Annual Wellness Visit Medicare Annual Wellness Visit (AWV) [facility] Start: 06-06-2024 Screening for osteoporosis Bone Density Scan [facility] Start: 05-24-2024 End: 05-24-2024 Patient encounter procedure 05/24/2024 10:45 AM EST Office Visit [facility] [address] [place] [phone] Timothy Palacio, DO [address], [address] [place], [place] [phone] [facility] Start: 05-21-2024 End: 05-21-2024 Clinical Support 05/21/2024 11:00 AM EST Clinical Support [facility] [address] [place] [phone] [facility] Start: 05-16-2024 End: 05-16-2024 Patient encounter procedure 05/16/2024 1:45 PM EST Office Visit [facility] 3 [address] [employer] [facility] [address] [place] [phone] Charline Hgaen, [address] [facility] 3, [address] [place] [address] [facility] 3 Start: 05-08-2024 Advance Directive Discussion Advance Directive Discussion [facility] Start: 04-24-2024 Creatinine measurement Creatinine [facility] Start: 04-24-2024 Potassium measurement Potassium Leve l [facility] Start: 04-23-2024 End: 04-23-2024 Patient encounter procedure 04/23/2024 11:00 AM EST Office Visit [facility] [address] [place] [phone] Ronit Doan DO [address] [facility], [address] [place] [address] [facility] Start: 04-07-2024 Creatinine measurement Creatinine [facility] Start: 04-07-2024 Echocardiography Echocardiogram [facility] Start: 04-07-2024 Potassium measurement Potassium Leve l [facility] Start: 02-16-2024 End: 02-16-2024 Anticoagulant drug monitoring 02/16/2024 11:30 AM EDT Anticoagulation - Warfarin Visit [facility] [address] [place] [phone] [facility] Start: 02-11-2024 Diabetes mellitus screening Diabetes Screening [facility] Start: 02-11-2024 Hemoglobin A1c measurement Diabetes: Hemoglobin A1C [facility] Start: 01-30-2024 End: 01-30-2024 Anticoagulant drug monitoring 01/30/2024 10:45 AM EDT Anticoagulation - Warfarin Visit [facility] [address] [address] [facility] Start: 01-29-2024 End: 01-29-2024 Patient encounter procedure [facility] Start: 01-07-2024 Covid-19 Vaccine () Covid-19 Vaccine () [facility] Start: 01-07-2024 Influenza vaccination Influenza Vacc ine (#1) [facility] Start: 12-20-2023 Hemoglobin A1c measurement HbA1C [facility] Start: 12-05-2023 End: 12-05-2023 Anticoagulant drug monitoring 12/05/2023 11:00 AM EDT Anticoagulation - Warfarin Visit [facility] [address] [place] [address] [facility] Start: 11-14-2023 End: 11-14-2023 Patient encounter procedure 11/14/2023 1:00 PM EDT Office Visit [facility] 3 [address] [employer] [address] [facility] [address] [place] [phone] Charline Hagen, [address] [employer] [facility] 3, [address] [place] [address] [facility] 3 Start: 11-10-2023 End: 11-10-2023 Anticoagulant drug monitoring 11/10/2023 11:00 AM EDT Anticoagulation - Warfarin Visit [facility] [address] [place] [address] [facility] Start: 11-08-2023 End: 11-08-2023 Patient encounter procedure 11/08/2023 8:45 AM EDT Office Visit [facility] [address] [place] [address] Héctor Fairchild MD [address] [facility] [facility] [address] [place] [address] follow up Pain Management Comment on above: follow up Start: 10-17-2023 End: 10-17-2023 Anticoagulant drug monitoring 10/17/2023 10:30 AM EDT Anticoagulation - Warfarin Visit [facility] [address] [address] [place] [phone] [facility] Start: 10-16-2023 End: 10-16-2023 Patient encounter procedure 10/16/2023 11:15 AM EDT Office Visit [facility] [address] [place] [phone] Timothy Palacio, DO [address] [facility] 3, [address] [place] [address] [facility] Start: 09-26-2023 End: 09-26-2023 Patient encounter procedure 09/26/2023 3:15 PM EDT Office Visit [facility] [address] [place] [phone] Ronit Doan, DO [address] [facility], [facility] [address] [place], [place] [phone] [facility] Start: 09-26-2023 End: 09-25-2024 CBC panel - Blood by Automated count CBC Lab Routine Medication monitoring encounter Expected: 09/26/2023 (Approximate), Expires: 09/25/2024 [facility] Work Phone: Comment on above: Expected: 09/26/2023 (Approximate), Expires: 09/25/2024 Start: 09-26-2023 End: 09-25-2024 Comprehensive metabolic 2000 panel - Serum or Plasma Comprehensive Metabolic Panel Lab Routine Essential hypertension Expected: 09/26/2023 (Approximate), Expires: 09/25/2024 [facility] Work Phone: Comment on above: Expected: 09/26/2023 (Approximate), Expires: 09/25/2024 Start: 09-26-2023 End: 09-25-2024 Hemoglobin A1c/Hemoglobin.total in Blood Hemoglobin A1C Lab Routine Type 2 diabetes mellitus with hyperglycemia, without long-term current use of insulin (Multi) Expected: 09/26/2023 (Approximate), Expires: 09/25/2024 [facility] Service Area Work Phone: Comment on above: Expected: 09/26/2023 (Approximate), Expires: 09/25/2024 Start: 09-26-2023 End: 09-25-2024 Lipid 1996 panel - Serum or Plasma Lipid Panel Lab Routine Essential hypertension Expected: 09/26/2023 (Approximate), Expires: 09/25/2024 [facility] Work Phone: Comment on above: Expected: 09/26/2023 (Approximate), Expires: 09/25/2024 Start: 09-19-2023 Hemoglobin A1c measurement Diabetes: Hemoglobin A1C [facility] Start: 09-19-2023 End: 09-19-2023 Anticoagulant drug monitoring 09/19/2023 11:00 AM EDT Anticoagulation - Warfarin Visit [facility] [address] [place] [phone] [facility] Start: 09-01-2023 End: 09-01-2023 Patient encounter procedure 09/01/2023 1:30 PM EDT Office Visit [facility] [address] [place] [phone] Ronit Doan DO [address] [facility], [address] [place] [address] [facility] Start: 08-24-2023 FUV, Provider: Jaylon Kiser, Status: Pen, Time: 11:20 AM FUV, Provider: Jaylon Kiser, Status: Pen, Time: 11:20 AM -[facility] [address] Work Phone: Start: 08-24-2023 End: 08-24-2023 Patient encounter procedure 08/24/2023 11:20 AM EDT Office Visit [facility] 2 [address] [employer] [facility] [address] [place] [phone] Jaylon Kiser M, DO [address] [facility] 202 [facility] [place] [address] [facility] 2 Start: 08-22-2023 End: 08-22-2023 Patient encounter procedure 08/22/2023 3:30 PM EDT Appointment [facility] 3 [address] [employer] [address] [place] [phone] [facility] 3 Start: 08-22-2023 End: 08-22-2023 Anticoagulant drug monitoring 08/22/2023 11:15 AM EDT Anticoagulation - Warfarin Visit [facility] [address] [place] [phone] [facility] Start: 08-17-2023 Creatinine measurement Creatinine Le rocio [facility] Start: 08-17-2023 Hepatitis B surface antibody level LDL Cholesterol [facility] Start: 08-17-2023 Lipid panel Lipid Panel [facility] Start: 08-17-2023 Potassium measurement Potassium Leve l [facility] Start: 08-15-2023 End: 08-15-2023 Patient encounter procedure 08/15/2023 1:00 PM EDT Appointment [place] [employer] [facility] [address] [place] [phone] [facility] 3 Start: 08-15-2023 End: 08-15-2023 Anticoagulant drug monitoring 08/15/2023 10:00 AM EDT Anticoagulation - Warfarin Visit [facility] [place] [phone] [facility] Start: 08-14-2023 End: 08-14-2023 Patient encounter procedure 08/14/2023 11:30 AM EDT Appointment [facility] [address] [place] [phone] [facility] Start: 08-12-2023 Hemoglobin A1c measurement HbA1C [facility] Start: 07-24-2023 Screening for malignant neoplasm of colon [facility] Start: 07-21-2023 Glaucoma screening Diabetes: R etinopathy Screening [facility] Start: 07-21-2023 Ophthalmic examinati on and evaluation Diabetes: Retinopathy Screening [facility] Start: 07-19-2023 End: 07-19-2023 Anticoagulant drug monitoring 07/19/2023 11:00 AM EDT Anticoagulation - Warfarin Visit [facility] [address] [place] [phone] [facility] Start: 06-21-2023 End: 06-21-2023 Patient encounter procedure 06/21/2023 8:30 AM EST Appointment [facility] [address] [place] [phone] [facility] Start: 06-20-2023 End: 06-20-2023 Anticoagulant drug monitoring 06/20/2023 11:00 AM EST Anticoagulation - Warfarin Visit [facility] [address] [place] [phone] [facility] Start: 06-07-2023 End: 06-07-2024 Comprehensive metabolic 2000 panel - Serum or Plasma Comprehensive Metabolic Panel Lab Routine Essential hypertension Expected: 06/07/2023 (Approximate), Expires: 06/07/2024 [facility] Work Phone: Comment on above: Expected: 06/07/2023 (Approximate), Expires: 06/07/2024 Start: 06-07-2023 End: 06-07-2024 Creatinine [Mass/volume] in Urine Creatinine, Urine Random Lab Routine Type 2 diabetes mellitus with hyperglycemia, without long-term current use of insulin (CMS/HCC) Expected: 06/07/2023 (Approximate), Expires: 06/07/2024 [facility] Work Phone: Comment on above: Expected: 06/07/2023 (Approximate), Expires: 06/07/2024 Start: 06-07-2023 End: 08-05-2024 DBT Breast - bilateral BI mammo bilateral screening tomosynthesis Imaging Routine Visit for screening mammogram Expected: 06/07/2023, Expires: 08/05/2024 [facility] Work Phone: Comment on above: Expected: 06/07/2023 , Expires: 08/05/2024 Start: 06-07-2023 End: 06-07-2024 Hemoglobin A1c/Hemoglobin.total in Blood Hemoglobin A1C Lab Routine Type 2 diabetes mellitus with hyperglycemia, without long-term current use of insulin (CMS/[facility]) Expected: 06/07/2023 (Approximate), Expires: 06/07/2024 [facility] Service Area Work Phone: Comment on above: Expected: 06/07/2023 (Approximate), Expires: 06/07/2024 Start: 06-07-2023 End: 06-07-2024 Lipid 1996 panel - Serum or Plasma Lipid Panel Lab Routine Essential hypertension Expected: 06/07/2023 (Approximate), Expires: 06/07/2024 [facility] Work Phone: Comment on above: Expected: 06/07/2023 (Approximate), Expires: 06/07/2024 Start: 06-07-2023 End: 06-07-2024 Microalbumin/Creatinin e [Mass Ratio] in Urine Albumin , Urine Random Lab Routine Type 2 diabetes mellitus with hyperglycemia, without long-term current use of insulin (CMS/HCC) Expected: 06/07/2023 (Approximate), Expires: 06/07/2024 [facility] Work Phone: Comment on above: Expected: 06/07/2023 (Approximate), Expires: 06/07/2024 Start: 06-07-2023 End: 06-07-2023 Patient encounter procedure 06/07/2023 1:30 PM EST Office Visit [facility] [address] [place] [phone] Ronit Doan DO [address] [facility], [address] [place] [address] [facility] Start: 06-06-2023 Screening for malignant neoplasm of breast Mammogram [facility] Start: 06-02-2023 End: 06-02-2023 Anticoagulant drug monitoring 06/02/2023 11:00 AM EST Anticoagulation - Warfarin Visit [facility] [address] [place] [phone] [facility] Start: 05-23-2023 End: 05-23-2023 Anticoagulant drug monitoring 05/23/2023 10:15 AM EST Anticoagulation - Warfarin Visit [facility] [address] [place] [phone] [facility] Start: 05-16-2023 End: 05-16-2023 Patient encounter procedure 05/16/2023 2:45 PM EST Office Visit [facility] 3 [address] [employer] [facility] [address] [place] [phone] Charline Hagen DO [address] [employer] [facility] 3, [address] [place] [address] [facility] 3 Start: 2023 Hemoglobin A1c measurement Diabetes: Hemoglobin A1C [facility] Start: 05-08-2023 Advance Directive Discussion Advance Directive Discussion [facility] Start: 05-08-2023 Behavioral Health Screening Behavioral Health Screening [facility] Start: 05-08-2023 Depression Assessment Depression Ass essment [facility] Start: 04-26-2023 End: 04-26-2023 Anticoagulant drug monitoring 04/26/2023 1:00 PM EST Anticoagulation - Warfarin Visit [facility] [address] [place] [phone] [facility] Start: 04-24-2023 End: 04-24-2023 Patient encounter procedure 04/24/2023 10:15 AM EST Office Visit [facility] [address] [facility] 3 [address] [place] [phone] Charline Hagen, DO [address] [employer] [address], [address] [place], [place] [phone] [facility] 3 Start: 04-19-2023 End: 04-19-2023 Anticoagulant drug monitoring 04/19/2023 3:30 PM EST Anticoagulation - Warfarin Visit [facility] [address] [place] [phone] [facility] Start: 04-19-2023 End: 04-19-2023 Patient encounter procedure 04/19/2023 2:45 PM EST Office Visit [facility] [address] [place] [phone] Timothy Palacio, DO [address] [employer] [facility] 3, [facility] 301 [place], [place] [phone] [facility] Start: 04-17-2023 EPV, Provider: Charline Hagen, Status: Pen, Time: 10:45 AM EPV, Provider: Charline Hagen, Status: Mane, Time: 10:45 AM CH-Ljwvkvtasf-Gxqmo Work Phone: Start: 04-17-2023 End: 04-17-2023 Patient encounter procedure 04/17/2023 10:45 AM EST Office Visit [facility] [address] [facility] 3 [address] [place] [phone] Charline Hagen, DO [address], [address] [place] [address] [facility] 3 Start: 04-15-2023 Medicare Annual Wellness Visit Medicare Annual Wellness Visit (AWV) [facility] Start: 04-07-2023 End: 04-07-2023 Patient encounter procedure 04/07/2023 11:00 AM EST Appointment [facility] [address] [place] [phone] [facility] Start: 03-29-2023 End: 03-29-2023 Anticoagulant drug monitoring 03/29/2023 10:30 AM EST Anticoagulation - Warfarin Visit [facility] [address] [place] [phone] [facility] Start: 02-17-2023 End: 02-17-2023 Patient encounter procedure 02/17/2023 1:30 PM EDT Office Visit [facility] [address] [place] [phone] Ronit Doan DO [address] [facility], [facility] [address] [place] [address] [facility] Start: 02-01-2023 Hemoglobin A1c measurement Diabetes: Hemoglobin A1C [facility] Start: 02-01-2023 Patient encounter procedure FUVCOANacho, Provider: MED CARDIO COAG CLINICELIUD CHASE, Status: Pen, Time: 10:30 AM Antico[facility] Work Phone: Start: 01-30-2023 FUV, Provider: Timothy Palacio, Status: Pen, Time: 10:45 AM FUV, Provider: Timothy Palacio, Status: Pen, Time: 10:45 AM [facility] Vas [facility] [address] Work Phone: Start: 01-18-2023 Patient encounter procedure LUKEOANacho, Provider: JAZLYN CARDIO COAG CLINICELIUD CHASE, Status: Pen, Time: 2:15 PM [facility]tico[facility] Work Phone: Start: 01-06-2023 Covid-19 Vaccine ( season) Covid-19 Vaccine ( season) [facility] Start: 01-06-2023 Influenza vaccination [facility] Start: 12-28-2022 Patient encounter procedure FUVCOAG, Provider: JAZLYN CARDIO COAG ELIUD LI, Status: Pen, Time: 10:45 AM [facility] Work Phone: Start: 12-20-2022 Patient encounter procedure FUVCOANacho, Provider: JAZLYN [facility]ARDIO [facility], Status: Pen, Time: 10:45 AM Anticoagulation [facility] Work Phone: Start: 11-15-2022 Hemoglobin A1c measurement Diabetes: Hemoglobin A1C [facility] Start: 11-15-2022 Patient encounter procedure FUVCOAG, Provider: JAZLYN [facility]ARD[facility], Status: Pen, Time: 10:30 AM LV-Zsbcuiidaw-Fqopq Work Phone: Start: 11-11-2022 End: 11-12-2023 Hemoglobin A1c/Hemoglobin.total in Blood Hemoglobin A1c Lab Routine Elevated glucose Expected: 11/11/2022 (Approximate), Expires: 11/12/2023 [facility] Service Area Work Phone: Comment on above: Expected: 11/11/2022 (Approximate), Expires: 11/12/2023 Start: 11-11-2022 End: 11-11-2022 Patient encounter procedure 11/11/2022 1:30 PM EDT Office Visit [facility] [address] [phone] Ronit Doan DO [address] [facility], [facility] [address] [place] [address] [facility] Start: 10-26-2022 PACVIRTUAL, Provider : MORIAH SHETH REMOTE PACEMAKER,[id number], Status: Pen, Time: 7:30 AM PACVIRTUAL, Provider: MORIAH MAC3 REMOTE PACEMAKER,[id number], Status: Pen, Time: 7:30 AM [facility] Work Phone: Start: 10-14-2022 EPV, Provider: Charline Hagen, Status: Mane, Time: 11:00 AM EPV, Provider: Charline Hagen, Status: Pen, Time: 11:00 AM [facility] Work Phone: Start: 10-11-2022 Patient encounter procedure FUVCOAG, Provider: JAZLYN CARDIO COAG [facility], Status: Mane, Time: 1:45 PM [facility] Work [facility]: Start: 10-04-2022 End: 10-05-2023 Hemoglobin A1c/Hemoglobin.total in Blood Hemoglobin A1C Lab Routine Prediabetes Expected: 10/04/2022 (Approximate), Expires: 10/05/2023 [facility] Service Area Work Phone: Comment on above: Expected: 10/04/2022 (Approximate), Expires: 10/05/2023 Start: 10-04-2022 End: 10-05-2023 TSH with reflex to Free T4 if abnormal TSH with reflex to Free T4 if abnormal Lab Routine Prediabetes Expected: 10/04/2022 (Approximate), Expires: 10/05/2023 [facility] Work Phone: Comment on above: Expected: 10/04/2022 (Approximate), Expires: 10/05/2023 Start: 10-04-2022 EPV, Provider: Charline Hagen, Status: Mane, Time: 10:45 AM EPV, Provider: Charline Hagen, Status: Mane, Time: 10:45 AM [facility] Work Phone: Start: 09-21-2022 Patient encounter procedure FUVCOAG, Provider: JAZLYN CARDIO COAG [facility], Status: Pen, Time: 11:30 AM [facility] [address] Work Phone: Start: 09-16-2022 Creatinine measurement Creatinine Le rocio [facility] Start: 09-16-2022 Lipid panel Lipid Panel [facility] Start: 09-16-2022 Potassium measurement Potassium Leve l [facility] Start: 09-15-2022 FUV, Provider: Jaylon Kiser, Status: [...] Status: Mane, Time: 11:10 AM [facility] [address] Work Phone: Start: 08-11-2022 End: 08-12-2023 Hemoglobin A1c/Hemoglobin.total in Blood Hemoglobin A1c Lab Routine Hyperglycemia Expected: 08/11/2022 (Approximate), Expires: 08/12/2023 [facility] Service Area Work Phone: Comment on above: Expected: 08/11/2022 (Approximate), Expires: 08/12/2023 Start: 08-11-2022 End: 08-12-2023 Opiate/Opioid/Benzo Extended Prescription Compliance Opiate/Opioid/Benzo Extended Prescription Compliance Lab Routine Medication monitoring encounter Expected: 08/11/2022 (Approximate), Expires: 08/12/2023 [facility] Work Phone: Comment on above: Expected: 08/11/2022 (Approximate), Expires: 08/12/2023 Start: 08-11-2022 FUV, Provider: Ronit Doan, Status: Pen, Time: 9:30 AM FUV, Provider: Ronit Doan, Status: Pen, Time: 9:30 AM [facility] [employer] Work Phone: Start: 08-08-2022 Patient encounter procedure CAROTID, Provider: JAYA VASC LAB ROOM 2 OUTPATIENT,MG VASC, Status: Pen, Time: 11:00 AM CL-Bywwxmzrhy-Pfuda Work Phone: Start: 08-04-2022 Patient encounter procedure CAROTID, Provider: JAYA VASC LAB ROOM 2 OUTPATIENT,MG VASC, Status: Pen, Time: 11:00 AM [facility] Work Phone: Start: 07-06-2022 Hemoglobin A1c measurement Diabetes: Hemoglobin A1C [facility] Start: 05-08-2022 Advance Directive Discussion Advance Directive Discussion [facility] Start: 05-08-2022 Depression Assessment Depression Ass essment [facility] Start: 04-14-2022 Patient encounter procedure MCRANNUAL, Provider: Ronit Doan, Status: Pen, Time: 9:30 AM [facility] Work Phone: Start: 03-21-2022 EPV, Provider: Charline Hagen, Status: Pen, Time: 11:00 AM EPV, Provider: Charline Hagen, Status: Pen, Time: 11:00 AM WM-Vupdekofch-Cmmrc Work Phone: Start: 03-09-2022 POV, Provider: Yg López, Status: Pen, Time: 1:00 PM POV, Provider: Yg López, Status: Pen, Time: 1:00 PM [facility] Work Phone: Start: 03-08-2022 Echocardiography Echocardiogram [facility] Start: 03-01-2022 SURGPMC, Provider: Yg López, Status: Pen, Time: 8:00 AM [facility], Provider: Yg López, Status: Pen, Time: 8:00 AM [facility] Work Phone: Start: 02-17-2022 FUV, Provider: Jaylon Kiser, Status: Pen, Time: 11:00 AM FUV, Provider: Jaylon Kiser, Status: Pen, Time: 11:00 AM [facility] [address] Work Phone: Start: 02-07-2022 FUV, Provider: Timothy Palacio, Status: Pen, Time: 9:30 AM FUV, Provider: Timothy Palacio, Status: Pen, Time: 9:30 AM IC-Fesmqklixh-Vcgbob [facility] Work Phone: Start: 02-07-2022 Patient encounter procedure Outpatient Cardiology [place] [address] [facility] [address] Start: 07-Feb-2022 9:30 Timothy Palacio Intent [facility] [place] Start: 02-01-2022 CAROTID, Provider: Jerome ALFONSO 3 MAC 03 VASCULAR LAB,MG VASC, Status: Pen, Time: 10:30 AM CAROTID, Provider: JAYA 3 MAC 03 VASCULAR LAB,MG VASC, Status: Pen, Time: 10:30 AM FC-Qwipurtzjr-Sffqi Work Phone: Start: 01-17-2022 FUV, Provider: Ronit Doan, Status: Pen, Time: 9:30 AM FUV, Provider: Ronit Doan, Status: Pen, Time: 9:30 AM OM-Fywodujkuv-Otzay Work Phone: Start: 11-25-2021 Patient encounter procedure [facility] Cardiology Start: 09-23-2021 Echocardiography Echocardiogram [facility] Start: 09-21-2021 EPV, Provider: Charline Hagen, Status: Pen, Time: 2:30 PM EPV, Provider: Charline Hagen, Status: Pen, Time: 2:30 PM [facility] Work Phone: Start: 09-21-2021 Patient encounter procedure [facility] Cardiology [place] Start: 09-20-2021 FUV, Provider: Ronit Doan, Status: Pen, Time: 9:45 AM FUV, Provider: Ronit Doan, Status: Pen, Time: 9:45 AM [facility] Work Phone: Start: 09-20-2021 Patient encounter procedure [facility] Medicine [place] Start: 07-30-2021 End: 07-31-2022 Albuterol 2.5 mg - Ipratropium 0.5 mg/ 3 mL Neb Soln 3 mL Inhalation Every 4 Hours ; (DUONEB)DOSE = 3 mL Inhalation Every 2 Hours via Nebulizer, PRN Wheezing Start: 30-Jul-2021 End: 30-Jul-2022 Ordered: 30-Jul-2021 Jaylon Kiser [facility] Other Phone (unformatted): [phone] Start: 07-16-2021 FUV, Provider: Ronit Doan, Status: Pen, Time: 1:30 PM FUV, Provider: Ronit Doan, Status: Pen, Time: 1:30 PM [facility] Work Phone: Start: 07-15-2021 NPV, Provider: Jaylon Kiser, Status: Pen, Time: 9:40 AM NPV, Provider: Jaylon Kiser, Status: Pen, Time: 9:40 AM [facility] Work Phone: Start: 06-30-2021 FUV, Provider: Timothy Palacio, Status: Pen, Time: 1:45 PM FUV, Provider: Timothy Palacio, Status: Pen, Time: 1:45 PM [facility] Work Phone: Start: 06-28-2021 FUV, Provider: Timothy Palacio, Status: Pen, Time: 10:00 AM FUV, Provider: Timothy Palacio, Status: Pen, Time: 10:00 AM KU-Pdwzdfaylk-Myumjo [address] [place] Work Phone: Start: 06-24-2021 ECHO, Provider: MEDI NA HHVI,MG CARD, Status: Pen, Time: 9:00 AM ECHO, Provider: CAZARES HHVI,MG CARD, Status: Pen, Time: 9:00 AM BP-Jhirpmiovd-Xbyxqd [address] [place] Work Phone: Start: 06-21-2021 FUV, Provider: Ronit Doan, Status: Pen, Time: 10:15 AM FUV, Provider: Ronit Doan, Status: Pen, Time: 10:15 AM [facility] Work Phone: Start: 06-10-2021 NPV, Provider: Jaylon Kiser, Status: Pen, Time: 10:10 AM NPV, Provider: Jaylon Kiser, Status: Pen, Time: 10:10 AM [facility] Work Phone: Start: 05-11-2021 CAROTID, Provider: Jerome ALFONSO 3 MAC 03 VASCULAR LAB,MG VASC, Status: Pen, Time: 11:30 AM CAROTID, Provider: JAYA 3 MAC 03 VASCULAR LAB,MG VASC, Status: Pen, Time: 11:30 AM HG-Iwuvpihgul-Hrbli Work Phone: Start: 03-24-2021 FUVHOSP, Provider: Charline Hagen, Status: Pen, Time: 2:30 PM FUVHOSP, Provider: Charline Hagen, Status: Pen, Time: 2:30 PM [facility] Work Phone: Start: 03-18-2021 FUV, Provider: Ronit Doan, Status: Pen, Time: 1:30 PM FUV, Provider: Ronit Doan, Status: Pen, Time: 1:30 PM [facility] Work Phone: Start: 02-01-2021 Nursing evaluation o f patient and report FLUSHOT, Provider: NURSE VISIT,IM ASSOC, Status: Pen, Time: 10:00 AM [facility] Work Phone: Start: 01-15-2021 FUV, Provider: Timothy Palacio, Status: Pen, Time: 10:30 AM FUV, Provider: Timothy Palacio, Status: Pen, Time: 10:30 AM BF-Dktplodxpy-Zhqgb Work Phone: Start: 11-17-2020 NPV, Provider: Ronit Doan, Status: Pen, Time: 2:00 PM NPV, Provider: Ronit Doan, Status: Pen, Time: 2:00 PM [facility] Work Phone: Start: 11-10-2020 PACVIRTUAL, Provider : PARMA TELEPHONIC PACEMAKER,MP CARD, Status: Pen, Time: 1:15 PM PACVIRTUAL, Provider: PARMA TELEPHONIC PACEMAKER,MP CARD, Status: Pen, Time: 1:15 PM ZB-Orslrjoumc-Fwcdn Work Phone: Start: 10-05-2020 COVID-19 Vaccine (3 - Booster for Pfizer series) COVID-19 Vaccine (3 - Booster for Pfizer series) [facility] Start: 10-05-2020 COVID-19 Vaccine (3 - Pfizer series) COVID-19 Vaccine (3 - Pfizer series) [facility] Start: 09-07-2020 COVID-19 Vaccine (3 - Pfizer risk series) COVID-19 Vaccine (3 - Pfizer risk series) [facility] Start: 09-03-2020 Basic metabolic 1998 panel - Serum or Plasma Basic Metabolic Panel [facility] Work Phone: Start: 09-03-2020 Xray Chest 2 View PA + Lateral Xray Chest 2 View PA + Lateral [facility] Work Phone: Start: 09-03-2020 Xray Chest 2 V iew PA + Lateral [facility] Work Phone: Start: 01-21-2020 HbA1c (Bld) [Mass fraction] Hemoglobin A1C [facility] Work Phone: Start: 10-10-2019 Annual PCP Team Chronic Disease Visit Annual PCP Team Chronic Disease Visit [facility] Start: 09-25-2019 Screening for malignant neoplasm of breast Mammogram Screening [facility] Start: 06-14-2019 Hepatitis B screening Urine Al bumin:Creatinine Ratio [facility] Start: 01-03-2019 BP Controlled (<130/80) BP Controlled (<130/80) [facility] Start: 01-03-2019 Diabetic foot examination Diabetic Foot Exam [facility] Start: 09-21-2017 Glaucoma screening Dilated Retinal E xam [facility] Start: 2015 Screening for osteoporosis Bone Density Screening [facility] Start: 07-23-2014 Screening for malignant neoplasm of colon [facility] Start: 2010 RSV High Risk: (Elderly (60+) or Population) (1 - Risk 60-74 years 1-dose series) RSV High Risk: (Elderly (60+) or Population) (1 - Risk 60-74 years 1-dose series) [facility] Start: 2010 RSV patient s and/or patients aged 60+ years (1 - 1-dose 60+ series) RSV patients and/or patients aged 60+ years (1 - 1-dose 60+ series) [facility] Start: 2010 RSV Vaccine (1 - 1-dose 60+ series) RSV Vaccine (1 - 1-dose 60+ series) [facility] Start: 2000 Shingrix Vaccine (1 of 2) Shingrix Vaccine (1 of 2) [facility] Start: 2000 Zoster Vaccines (1 o f 2) Zoster Vaccines (1 of 2) [facility] Start: 1995 Screening for malignant neoplasm of colon [facility] Start: 1969 Urine screening for protein Diabetes: Urine Protein Screening [facility] Start: 1969 Zoster Vaccines (1 o f 2) Zoster Vaccines (1 of 2) [facility] Start: 1968 Annual PCP Team Chronic Disease Visit Annual PCP Team Chronic Disease Visit [facility] Start: 1968 Depression Screening Depression Scre ening [facility] Start: 1968 Hepatitis C screening Hepatitis C Sc reepop [facility] Start: 1960 Diabetic foot examination Diabetes: Foot Exam [facility] Start: 1960 Ophthalmic examinati on and evaluation Diabetes: Retinopathy Screening [facility] Start: 1955 COVID-19 Vaccine (#1) COVID-19 Vacci ne (#1) [facility] Start: 1951 MMR Vaccines (1 of 1 - Standard series) MMR Vaccines (1 of 1 - Standard series) [facility] Start: 1950 Medicare Annual Wellness Visit Medicare Annual Wellness Visit (AWV) [facility] Start: 1950 Screening for malignant neoplasm of colon [facility] End: 04-19-2023 Cardiac device check - In Clinic [facility] Service Area Work Phone: Comment on above: Once for 1 Occurrenc es starting 04/19/2023 until 04/19/2023 End: 08-15-2023 Cardiac device check - In Clinic [facility] Service Area Work Phone: Comment on above: Once for 1 Occurrenc es starting 08/15/2023 until 08/15/2023 End: 05-15-2024 Cardiac device check - In Clinic [facility] Service Area Work Phone: Comment on above: Once for 1 Occurrenc es starting 05/15/2024 until 05/15/2024 End: 10-23-2023 Cardiac Device Check - Remote [facility] Service Area Work Phone: Comment on above: Once for 1 Occurrenc es starting 10/23/2023 until 10/23/2023 End: 02-13-2024 Cardiac Device Check - Remote [facility] Service Area Work Phone: Comment on above: Once for 1 Occurrenc es starting 02/13/2024 until 02/13/2024 End: 08-13-2024 Cardiac Device Check - Remote [facility] Service Area Work Phone: Comment on above: Once for 1 Occurrenc es starting 08/13/2024 until 08/13/2024 End: 11-12-2024 Cardiac device check - Remote [facility] Service Area Work Phone: Comment on above: Once for 1 Occurrenc es starting 11/12/2024 until 11/12/2024 End: 02-10-2025 Cardiac device check - Remote [facility] Service Area Work Phone: Comment on above: Once for 1 Occurrenc es starting 02/10/2025 until 02/10/2025 End: 02-17-2025 Cardiac device check - Remote [facility] Service Area Work Phone: Comment on above: Once for 1 Occurrenc es starting 02/17/2025 until 02/17/2025 End: 03-21-2023 Cardiac device check - Remote alert [facility] Service Area Work Phone: Comment on above: Once for 1 Occurrenc es starting 03/21/2023 until 03/21/2023 End: 08-14-2023 Cardiac device check - Remote alert [facility] Service Area Work Phone: Comment on above: Once for 1 Occurrenc es starting 08/14/2023 until 08/14/2023 End: 06-21-2023 DBT Breast - bilateral [facility] Service Area Work Phone: Comment on above: Once for 1 Occurrenc es starting 06/21/2023 until 06/21/2023 Electrocardiogram, 12-lead PRN ACS symptoms Electrocardiogram, 12-lead PRN ACS symptoms ECG Routine As needed until discontinued starting 04/24/2023 [facility] Service Area Work Phone: Comment on above: As needed until disc ontinued starting 04/24/2023 History of coronary artery bypass grafting S/P CABG (coronary artery bypass graft) [facility] Other Phone (unformatted): [phone] History of repair of mitral valve History of mitral valve repair [facility] Other Phone (unformatted): [phone] End: 07-12-2024 MR Lumbar spine WO contrast MRI LUMBAR SPINE WO IVCON Radiology Routine Spinal stenosis of lumbar region with neurogenic claudication 1 Occurrences starting 06/13/2023 until 07/12/2024 [facility] Work Phone: Comment on above: 1 Occurrences starti ng 06/13/2023 until 07/12/2024 OPIATE/OPIOID/BENZO PRESCRIPTION COMPLIANCE OPIATE/OPIOID/BENZO PRESCRIPTION COMPLIANCE Lab Routine 08/11/2022 10:13 AM EDT [facility] Work Phone: Patient referral [facility] Work Phone: End: 04-24-2023 Respiratory care eval and treat Respiratory care eval and treat Respiratory Care Routine Once for 1 Occurrences starting 04/24/2023 until 04/24/2023 [facility] Service Area Work Phone: Comment on above: Once for 1 Occurrenc es starting 04/24/2023 until 04/24/2023 End: 04-07-2023 US Heart Transthoracic [facility] Service Area Work Phone: Comment on above: Once for 1 Occurrenc es starting 04/07/2023 until 04/07/2023 US.doppler Carotid arteries - bilateral Vascular US carotid artery duplex bilateral Vascular Ultrasound Routine Carotid stenosis Carotid stenosis, bilateral 08/22/2023 4:39 PM EDT [facility] Service Area Work Phone: US.doppler Carotid arteries - bilateral Vascular US carotid artery duplex bilateral Vascular Ultrasound Routine Carotid stenosis Carotid stenosis, bilateral Occlusion and stenosis of left carotid artery 08/22/2024 11:51 AM EDT [facility] Service Area Work Phone: End: 08-30-2024 XR Chest PA and Lateral XR CHEST 2V FRONTAL/LAT Radiology Routine AICD (automatic cardioverter/defibrillator ) present 1 Occurrences starting 08/01/2023 until 08/30/2024 [facility] Work Phone: Comment on above: 1 Occurrences starti ng 08/01/2023 until 08/30/2024 [facility] Work Phone: [facility] NEGATED: Highlighted row has been ruled out! Planned Goals not documented [facility] Work Phone: Immunizations Immunization Date Immunization Notes Care Provider Nara sheth 02-13-2024 influenza, seasonal, injectable, preservative free Ronit Doan DO Work Phone: [facility] Work Phone: 02-13-2024 influenza virus vacc ine, unspecified formulation Par Remote [facility] Work Phone: 01-26-2023 influenza, injectabl e, quadrivalent, preservative free Ronit Doan DO Work Phone: [facility] Work Phone: 01-26-2023 influenza virus vacc ine, unspecified formulation Charline Hagen DO Work Phone: [facility] Work Phone: 01-17-2022 influenza, injectabl e, quadrivalent, preservative free; Translations: [Flulaval Quadrivalent 0.5 ML Intramuscular Suspension Prefilled Syringe] [facility] Work Phone: Comment on above: Series: 01-17-2022 influenza virus vacc ine, unspecified formulation Ronit Doan DO Work Phone: [facility] Work Phone: 02-01-2021 influenza, injectabl e, quadrivalent, contains preservative; Translations: [Flulaval Quadrivalent Intramuscular Suspension] Ron[facility] Doan [facility] Work Phone: Comment on above: Series: 02-01-2021 influenza virus vacc ine, unspecified formulation Ronit Doan DO Work Phone: [facility] Work Phone: 08-10-2020 Pfizer-BioNTech COVI D-19 Vacc 30 MCG/0.3ML Intramuscular Suspension Timothy Palacio DO -[facility] Work Phone: Comment on above: Series: 07-21-2020 Pfizer-BioNTech COVI D-19 Vacc 30 MCG/0.3ML Intramuscular Suspension Timothy Palacio DO -[employer] [facility] Work Phone: Comment on above: Series: 01-21-2020 influenza, injectabl e, quadrivalent, preservative free; Translations: [Fluzone Quadrivalent 0.5 ML Intramuscular Suspension] Shelley Camryanneeduardo [facility] Work Phone: Comment on above: Series: 01-21-2020 pneumococcal polysaccharide vaccine, 23 valent; Translations: [Pneumococcal polysaccharide vaccine, 23 valent] Shelley Camryanneeduardo [facility] Work Phone: Comment on above: Series: 02-12-2019 influenza, injectabl e, quadrivalent, preservative free; Translations: [Fluzone Quadrivalent 0.5 ML Intramuscular Suspension Prefilled Syringe] [facility] Work Phone: Comment on above: Series: 09-13-2018 tetanus toxoid, redu fuentes diphtheria toxoid, and acellular pertussis vaccine, adsorbed Ronit Doan Work Phone: [facility] 07-09-2018 pneumococcal conjuga te vaccine, 13 valent Ronit Doan DO Work Phone: [facility] Work Phone: 07-06-2018 pneumococcal conjuga te vaccine, 13 valent Katharine Scales -[facility] Work Phone: Comment on above: Series: 02-05-2018 influenza virus vacc ine, unspecified formulation Katharine Scales Work Phone: [facility] Work Phone: Comment on above: Series: 02-05-2018 influenza, seasonal, injectable [facility] Work Phone: 02-02-2018 influenza, high dose seasonal, preservative-free Ronit Doan DO Work Phone: [facility] Work Phone: 01-18-2017 tuberculin skin test ; purified protein derivative solution, intradermal Ronit Doan DO Work Phone: [facility] Work Phone: 01-10-2017 influenza, high dose seasonal, preservative-free Ronit Doan Work Phone: [facility] Work Phone: 12-14-2015 influenza, high dose seasonal, preservative-free Ronit Doan Work [facility] Work Phone: Payers Date Payer Category Payer Self-pay 2024 Medicare [id number] 2022 Medicare supplementa l policy (as second payer) [facility] [id number] 2022 Unknown 2017 Unknown [id number] 2016 Unknown [id number] 2015 Medicare [id number] 2008 Medicare 1.2.840.194084. 1.13.647. 2.7.3.002196.315 2008 Private Health Insurance 1.2 .840.020622.1.13.159. 2.7.3.636412.315 1950 Unknown [id number] 2.16.840.1.410670.3.579. 2.732 1950 Unknown [id number] 2.16.840.1.943472.3.579. 2.1045 1950 Unknown [id number] 2.16.840.1.690784.3.579. 2.1045 1950 Unknown [id number] 2.16.840.1.428334.3.579. 2.1045 1950 Unknown [id number] 2.16.840.1.789166.3.579. 2.1045 1950 Unknown [id number] 2.16.840.1.378962.3.579. 2.1045 1950 Unknown [id number] 2.16.840.1.527263.3.579. 2.1045 1950 Unknown [id number] 2.16.840.1.869879.3.579. 2.1045 1950 Unknown [id number] 2.16.840.1.833705.3.579. 2.1045 1950 Unknown [id number] 2.16.840.1.501819.3.579. 2.1045 1950 Unknown [id number] 2.16.840.1.320769.3.579. 2.356 1950 Unknown [id number] 2.16.840.1.158848.3.579. 2.356 1950 Unknown [id number] 2.16.840.1.274005.3.579. 2.356 1950 Unknown [id number] 2.16.840.1.047333.3.579. 2.356 1950 Unknown [id number] 2.16.840.1.030978.3.579. 2.356 1950 Unknown [id number] 2.16.840.1.822121.3.579. 2.356 1950 Unknown [id number] 2.16.840.1.819369.3.579. 2.356 1950 Unknown [id number] 2.16.840.1.164970.3.579. 2.356 1950 Unknown [id number] 2.16.840.1.677330.3.579. 2.356 1950 Unknown [id number] 2.16.840.1.322014.3.579. 2.356 1950 Unknown [id number] 2.16.840.1.850458.3.579. 2.356 1950 Unknown [id number] 2.16.840.1.970607.3.579. 2.356 1950 Unknown [id number] 2.16.840.1.784819.3.579. 2.356 1950 Unknown [id number] 2.16.840.1.225119.3.579. 2.356 1950 Unknown [id number] 2.16.840.1.256970.3.579. 2.356 1950 Unknown [id number] 2.16.840.1.156365.3.579. 2.356 1950 Unknown [id number] 2.16.840.1.522210.3.579. 2.356 1950 Unknown [id number] 2.16.840.1.038683.3.579. 2.356 1950 Unknown [id number] 2.16.840.1.959793.3.579. 2.356 1950 Unknown [id number] 2.16.840.1.508499.3.579. 2.356 1950 Unknown [id number] 2.16.840.1.046307.3.579. 2.356 1950 Unknown [id number] 2.16.840.1.736626.3.579. 2.356 1950 Unknown [id number] 2.16.840.1.531881.3.579. 2.356 1950 Unknown [id number] 2.16.840.1.014070.3.579. 2.356 1950 Unknown [id number] 2.16.840.1.023531.3.579. 2.356 1950 Unknown [id number] 2.16.840.1.018007.3.579. 2.356 1950 Unknown [id number] 2.16.840.1.149295.3.579. 2.356 1950 Unknown [id number] 2.16.840.1.889302.3.579. 2.356 1950 Unknown [id number] 2.16.840.1.427704.3.579. 2.356 1950 Unknown [id number] 2.16.840.1.577517.3.579. 2.356 1950 Unknown [id number] 2.16.840.1.977904.3.579. 2.356 1950 Unknown [id number] 2.16.840.1.035292.3.579. 2.356 1950 Unknown [id number] 2.16.840.1.399184.3.579. 2.1242 1950 Unknown [id number] 2.16.840.1.725000.3.579. 2.627 1950 Unknown [id number] 2.16.840.1.536449.3.579. 2.159 1950 Unknown [id number] 2.16.840.1.915692.3.579. 2.159 1950 Unknown [id number] 2.16.840.1.997942.3.579. 2.159 1950 Unknown [id number] 2.16.840.1.675054.3.579. 2.159 1950 Unknown [id number] 2.16.840.1.018828.3.579. 2.159 1950 Unknown [id number] 2.16.840.1.096195.3.579. 2.159 1950 Unknown [id number] 2.16.840.1.405045.3.579. 2.159 1950 Unknown [id number] 2.16.840.1.670150.3.579. 2.124 1950 Unknown [id number] 2.16.840.1.750978.3.579. 2.1244 1950 Unknown [id number] 2.16.840.1.437737.3.579. 2.1244 1950 Unknown [id number] 2.16.840.1.924152.3.579. 2.1244 1950 Unknown [id number] 2.16.840.1.954519.3.579. 2.1244 1950 Unknown [id number] 2.16.840.1.419487.3.579. 2.1246 1950 Unknown [id number] 2.16.840.1.147467.3.579. 2.1246 1950 Unknown [id number] 2.16.840.1.122422.3.579. 2.1246 1950 Unknown [id number] 2.16.840.1.485758.3.579. 2.1246 1950 Unknown [id number] 2.16.840.1.810968.3.579. 2.1246 1950 Unknown [id number] 2.16.840.1.550202.3.579. 2.1246 1950 Unknown [id number] 2.16.840.1.101245.3.579. 2.1246 1950 Unknown [id number] 2.16.840.1.381969.3.579. 2.1246 1950 Unknown [id number] 2.16.840.1.095497.3.579. 2.1243 1950 Unknown [id number] 2.16.840.1.443506.3.579. 2.1243 1950 Unknown [id number] 2.16.840.1.198306.3.579. 2.1243 1950 Unknown [id number] 2.16.840.1.614849.3.579. 2.1243 1950 Unknown [id number] 2.16.840.1.328019.3.579. 2.1243 1950 Unknown [id number] 2.16.840.1.371432.3.579. 2.1243 1950 Unknown [id number] 2.16.840.1.137868.3.579. 2.1243 1950 Unknown [id number] 2.16.840.1.683873.3.579. 2.1243 1950 Unknown [id number] 2.16.840.1.584993.3.579. 2.1243 1950 Unknown [id number] 2.16.840.1.959715.3.579. 2.1243 1950 Unknown [id number] 2.16.840.1.453936.3.579. 2.1243 1950 Unknown [id number] 2.16.840.1.749330.3.579. 2.1243 1950 Unknown [id number] 2.16.840.1.315917.3.579. 2.1243 1950 Unknown [id number] 2.16.840.1.419967.3.579. 2.1244 1950 Unknown [id number] 2.16.840.1.336061.3.579. 2.1244 1950 Unknown [id number] 2.16.840.1.255208.3.579. 2.1244 1950 Unknown [id number] 2.16.840.1.631066.3.579. 2.1244 1950 Unknown [id number] 2.16.840.1.183580.3.579. 2.1244 1950 Unknown [id number] 2.16.840.1.673727.3.579. 2.1244 Medicare [id number] Unknown [id number] 2.16.840.1.846021.3.579. 2.462 Unknown [id number] 2.16.840.1.912784.3.579. 2.462 Unknown [id number] 2.16.840.1.532358.3.579. 2.462 Unknown [id number] 2.16.840.1.717199.3.579. 2.462 Unknown [id number] 2.16.840.1.078774.3.579. 2.462 Unknown [id number] 2.16.840.1.923768.3.579. 2.462 Unknown [id number] 2.16.840.1.602636.3.579. 2.462 Unknown [id number] 2.16.840.1.740699.3.579. 2.462 Unknown [id number] 2.16.840.1.813328.3.579. 2.462 Unknown [id number] 2.16840.1.964246.3.579. 2.462 Unknown [id number] 2.16.840.1.269332.3.579. 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 [facility] Other Phone (unformatted): [phone] Start: 08-11-2022 End: 06-13-2023 Tobacco smoking status NHIS Never smoked tobacco [facility] Start: 08-11-2022 End: 06-13-2023 Tobacco use and exposure Smokeless tobacco non-user [facility] Work Phone: Start: 08-12-2022 End: 04-24-2023 Tobacco use panel [facility] Work Phone: Start: 1950 Sex Assigned At Not on file [facility] Work Phone: Start: 08-01-2022 End: 10-10-2024 Exposure to SARS-CoV-2 (event) Not sure [facility] Start: 11-11-2022 End: 01-28-2025 Alcohol intake Ex-drinker (finding) [facility] Work Phone: Start: 04-23-2023 End: 11-21-2023 Alcohol intake Current non-drinker of alcohol (finding) [facility] Start: 04-02-2022 Adult Depression Screening Assessment 0 [facility] Work Phone: How often to you hav e a drink containing alcohol? Never [facility] At any time in the past 12 months, were you homeless or living in fdc [including now]? No [facility] Work Phone: Start: 08-05-2023 End: 08-12-2024 Exposure to SARS-CoV-2 (event) Unable to assess [facility] Tobacco smoking status No Smoking Status Entered [facility] Start: 1950 Sex Assigned At Female A [facility] Start: 07-17-2024 End: 07-17-2024 Sex Female (finding) [facility] NEGATED: Highlighted row - - [facility] Work Phone: NEGATED: Highlighted rowStart: LEVARF History of tobacco use Passive smoker [facility] Work Phone: Medical Equipment Procedure Code Equipment Code Equipment Original Text Equipment Identifier Dates Graft, Xenosure, Biologic Patch, 0.8cm X 8cm Case [id number] Start: 07-30-2021 Comment on above: Description: Convert ed from [facility] Acute. Please see archived information for full log information. Pacemaker-Sedr01 [id number] -2009 [id number] Start: 09-02-2008 Goals Date Patient Goal Desired Activity /State Functional Status Date Assessment Result Facility 02-17-2025 Vital signs 64 02/17/2025 11 :00 AM EDT Patt Escalona LPN [facility] 02-17-2025 Functional status [facility] 02-17-2025 [facility] Work Phone: 01-28-2025 Patient Health Questionnaire 2 item (PHQ-2) [Reported] [facility] Work Phone: 10-28-2024 Patient Health Questionnaire 2 item (PHQ-2) [Reported] [facility] Work Phone: 01-03-2024 Functional Status Up ad tanvi [facility] Functional observable [facility] Other Phone (unformatted): [phone] NEGATED: Highlighted row Functional performance Functional status health issues are not documented Disease [facility] Work Phone: Mental Status Date Assessment Result Facility 07-17-2024 Cognitive function Voice/Name [facility] Work Phone: 01-03-2024 Mental Status Oriented x [facility] 08-01-2021 Cognitive functi ons :27 [facility] Other Phone (unformatted): [phone] NEGATED: Highlighted row Cognitive function [Interpretation] Cognitive status health issues are not documented Disease [facility] Work Phone: Clinical Notes 08-30-2008 to 03-18-2025 Ronit Doan, - 01/28/2025 1:00 PM EDTPatient InstructionsAssessment & Plan Note - Temi Ceja - 10/28/2024 2:39 PM EDTAssessment & Plan Note - Temi Ceja - 10/28/2024 2:39 PM EDT Note Date & Type Note Facility 03-18-2025 Note [facility] Medical Records Department [address] [place] [id number] Discharge Summary 03/18/25 0950 MR#: [id number] Acct: [id number] Name: PAU MUÑOZ Rep #: [id number] : 1950 74 From: Vipin Mendosa MD PCP: Dr. Ronit Doan DO Status:[facility] Prov[facility] Date of Admission: 03/14/25 Primary Care [...] all extremities Psych/Menta (more content not included)... [facility] 01-28-2025 History of Present illness Narrative Subjective [...] discussion, and plan. documented in this encounter [facility] Work Phone: 01-28-2025 Instructions Ronit Doan DO - 01/28/2025 1:00 PM EDT See me again in 3 months. Get blood test done close to next visit. documented in this encounter [facility] Work Phone: 10-28-2024 Evaluation + Plan note Associated Problem(s): Encounter for preventative adult health care examination Medicare wellness completed today In addition to Medicare Wellness visit, the following issues were addressed with separate E/M and treatment decision such as refills or tests were ordered: Afib Type 2 DM HTN [facility] Work Phone: 10-28-2024 Miscellaneous Notes Associated Problem(s): [...] Started on Metformin 500 mg daily at [facility]. Increase to metformin 500 mg 1 tab BID Associated Problem(s): Permanent atrial fibrillation (Multi) Remain on Warfarin 2.5 mg 6 days a week and 1.25 on Monday. Recheck INR in 2 weeks. Associated Problem(s): Essential hypertension Controlled Remain on Lisinopril 10 mg daily and Cardizem 240 mg q12h documented in this encounter [facility] Work Phone: 10-28-2024 History of Present illness [...] 11:05 am; 07/05/2024 12:01 pm ACCESSION NUMBER(S): [id number]; [id number] ORDERING CLINICIAN: RONIT DOAN INDICATION: History of [...] of the right breast by a registered industrial maintenance mechanic with elastography. Grayscale and color imaging reviewed. [...] General Ronit Doan DO as PCP - [facility] Attributed Provider Timothy Palacio DO as [...] Started on Metformin 500 mg daily at [facility]. Increase to metformin 500 mg 1 tab [...] Ronit Doan DO. documented in this encounter [facility] Work Phone: 10-28-2024 Instructions Ronit Doan DO [...] visit with A1c documented in this encounter [facility] Work Phone: 10-28-2024 Evaluation + Plan note Associated Problem(s): Type 2 diabetes mellitus, without long-term current use of insulin (Multi) A1c 7.4 Started on Metformin 500 mg daily at [facility]. Increase to metformin 500 mg 1 tab BID [facility] Work Phone: 10-28-2024 Evaluation + Plan note Associated Problem(s): Permanent atrial fibrillation (Multi) Remain on Warfarin 2.5 mg 6 days a week and 1.25 on Monday. Recheck INR in 2 weeks. [facility] Work Phone: 10-28-2024 Evaluation + Plan note Associated Problem(s): Essential hypertension Controlled Remain on Lisinopril 10 mg daily and Cardizem 240 mg q12h [facility] [facility] Work Phone: 09-11-2024 History of Present illness [...] carotid artery duplex bilateral Result Date: 08/24/2024 [place] [address] and Vascular Lab Report [facility] CAROTID ARTERY DUPLEX BILATERAL Patient Name: PAU MUÑOZ Reading Physician: [id number] Nolvia Lopez MD, RPVI Study Date: 08/22/2024 Ordering Physician: [id number] JAYLON KISER MRN/PID: [id number] Technologist: Emili Rascon RVT Technologist 2: Date of /Age: 1 1950 / 74 years Gender: F Admission Status: Outpatient Location Performed: [facility] Diagnosis/ICD: Occlusion and stenosis of left carotid artery-I65.22 Indication: Occlusion/stenosis, Carotid without cerebral infarction CPT Codes: 66064 Cerebrovascular Carotid Duplex scan complete CONCLUSIONS: Right [...] Subclavian Right Left ICA/CCA Ratio 1.3 0.8 [id number] Nolvia Lopez MD, RPVI Final Assessment/Plan Assessment [...] capsule. Pt gets otc, Disp: , Rfl: bpokjptopvr-hqjtjkecm-jvpqjbhm (Trelegy Ellipta) 200-62.5-25 mcg blister with device, [...] Disp: 12 tablet, Rfl: 0 nebulizer accessories [facility], Dispense Nebulizer tubing and mouthpiece at quantity [...] Disp: , Rfl: documented in this encounter [facility] Work Phone: 08-26-2024 Telephone encounter Note [facility] Last creatinine 0.93 from 06-21-2023 Please resend to new pharmacy listed below Patient's request for medication is as follows: Requested Prescriptions Pending Prescriptions Disp Refills gabapentin (NEURONTIN) 100 mg capsule 120 capsule 11 Sig: Dose clarification: take 2 tabs PO BID Prescription(s) as above. Please process accordingly. Angeli Greenfield LPN [facility] 08-26-2024 Miscellaneous Notes QUINTEN Last creatinine 0.93 from 06-21-2023 Please resend to new pharmacy listed below Patient's request for medication is as follows: Requested Prescriptions Pending Prescriptions Disp Refills gabapentin (NEURONTIN) 100 mg capsule 120 capsule 11 Sig: Dose clarification: take 2 tabs PO BID Prescription(s) as above. Please process accordingly. Angeli Greenfield LPN documented in this encounter [facility] 08-24-2024 Note HNO ID: [id number] Author: MARNIE FAIRCHILD MD Service: ? Author [...] writing Tramadol and a short prescription for [place] recently. I will defer a bridging prescription and have the patient follow up with Dr. Fairchild for clarification regarding her dose and care as she was last seen in November of 2023. Marnie Fairchild MD August 24, 2024 [facility] 08-24-2024 History of Present illness Narrative Patient [...] writing Tramadol and a short prescription for [place] recently. I will defer a bridging prescription and have the patient follow up with Dr. Fairchild for clarification regarding her dose and care as she was last seen in November of 2023. Marnie Fairchild MD August 24, 2024 documented in this encounter [facility] 08-23-2024 Telephone encounter Note Refill encounter sent. [facility] 08-23-2024 Miscellaneous Notes Refill encounter sent. Patient need a refill on her gabapentin. The pharmacy is telling the patient she has no refills left. Send to [facility] [address] [facility] in [place] [phone] documented in this encounter [facility] 08-23-2024 Telephone encounter Note [facility] Last creatinine 0.93 from 06-21-2023 Patient's request for medication is as follows: Requested Prescriptions Pending Prescriptions Disp Refills gabapentin (NEURONTIN) 100 mg capsule 120 capsule 11 Sig: Dose clarification: take 2 tabs PO BID Prescription(s) as above. Please process accordingly. Angeli Greenfield LPN [facility] 08-23-2024 Miscellaneous Notes [facility] Last creatinine 0.93 from 06-21-2023 Patient's request for medication is as follows: Requested Prescriptions Pending Prescriptions Disp Refills gabapentin (NEURONTIN) 100 mg capsule 120 capsule 11 Sig: Dose clarification: take 2 tabs PO BID Prescription(s) as above. Please process accordingly. Angeli Greenfield LPN documented in this encounter [facility] 08-23-2024 Telephone encounter Note Patient need a refill on her gabapentin. The pharmacy is telling the patient she has no refills left. Send to [facility] [address] [facility] in [place] [phone] [facility] 07-22-2024 History of Present illness Narrative [...] 1.4 prior to Lumpectomy last week, at [facility] by Dr Mccarthy. Had surgery last [...] capsule. Pt gets otc, Disp: , Rfl: lfkyhecvzsz-vwovpmcvc-gmljalyb (Trelegy Ellipta) 200-62.5-25 mcg blister with device, [...] Disp: 12 tablet, Rfl: 0 nebulizer accessories [facility], Dispense Nebulizer tubing and mouthpiece at quantity [...] Ronit Doan DO. documented in this encounter [facility] Work Phone: 07-22-2024 Instructions Ronit Doan DO [...] cholesterol and A1c. documented in this encounter [facility] Work Phone: 07-18-2024 Evaluation + Plan note Associated Problem(s): Asthma follows with pulmonology. Remain on Trelegy and has nebuizer. [facility] Work Phone: 07-18-2024 Miscellaneous Notes Associated Problem(s): [...] agreement due today documented in this encounter [facility] Work Phone: 07-18-2024 Evaluation + Plan note Associated Problem(s): Permanent atrial fibrillation (Multi) Remain on Warfarin. Monday, Monday and Monday- 2.5 mg Monday, , Monday and Monday- 1.25 mg [facility] Work Phone: 07-18-2024 Evaluation + Plan note Associated Problem(s): Type 2 diabetes mellitus, without long-term current use of insulin (Multi) Fingerstick A1c was 7.0% Start Metformin 500 mg daily. Recheck A1c in 3 months. Discussed side effects of nausea or diarrhea. [facility] Work Phone: 07-18-2024 Evaluation + Plan note Associated Problem(s): Essential hypertension Controlled Remain on Lisinopril 10 mg daily and Cardizem 240 mg q12h [facility] Work Phone: 07-18-2024 Evaluation + Plan note Associated Problem(s): Hypercholesterolemia Remain on Pravastatin 40 mg daily [facility] Work Phone: 07-18-2024 Evaluation + Plan note [...] this medication. Controlled substance agreement due today [facility] Work Phone: 07-17-2024 Consult note [facility] 07-17-2024 History and physical note Note Date/Time July 17, 2024 11:06am [facility] Medical Records Department [address] [place] [address] History & Physical Exam 07/17/24 1104 MR#: [id number] Acct: [id number] Name: PAU MUÑOZ Rep #:[id number] : 1950 74 From: Nawaf Mccarthy MD PCP: Dr. Ronit Doan, DO Status:REG S DC Location: [place] [address] HPI - General General Date of Admission: 07/17/24 Date of Service: 07/17/24 Chief Complaint: Right breast lump HPI Narrative PAU MUÑOZ, is a 74 F who presents for excisional biopsy/lumpectomy involving the right breast. She was recently seen in the office following ultrasound to workup a small palpable abnormality at the site of previous biopsylocation. She presents today for excisional biopsy/lumpectomy [facility] Medical History Blood disorder Wears hearing aid [...] begin shortly Charges/Coding Visit Charges Inpatient E&M: 69428 Init Hosp L1 07/17/24 1106 <Electronically signed by Nawaf Mccarthy MD> Cosigner Signature (if applicable): CC: Dr. Ronit Doan DO; Dr. Nawaf Mccarthy MD~ Signed [facility] Work Phone: 1(944) 295-242203-12-2025 Consult note Author Moy jass [facility] Note Date/Time July 17, 2024 10: 49am [facility] Medical Records Department [address] [place] [address] Pre-Anesthesia Evaluation 07/17/24 1048 MR#: [id number] Acct: [id number] Name: PAU MUÑOZ Rep #:[id number] : 1950 74 From: Moy Blair MD PCP: Dr. 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 Hx Respiratory Tract Infection No 07/15/24 13:26 STOP Sleep Apnea STOP Sleep 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 - 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: STOP Sleep Apnea - 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 Hx Hypertension Yes: CONTROLLED ON MED 07/15/24 [...] Tobacco Use History Tobacco Use 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 [facility]05-16-2024 Miscellaneous Notes* Telephone Encounter - Dasia Donaldson MA - 09/21/2023 9:26 AM EDT Received fax from [facility] [address] [place] [address] P: [phone] F: [phone] PT eval was signed by Ayanna Vazquez CNP & faxed to above phone number. Evaluation will be scannedin patient's chart. 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 Pt gets otc, Disp: , Rfl: jfsfkdrinse-wryowiicw-pnxeebgw (Trelegy Ellipta) 200-62.5-25 mcg blister with device, [...] Disp: 12 tablet, Rfl: 0 nebulizer accessories [facility], Dispense Nebulizer tubing and mouthpiece at quantity [...] mg) by mouth 4 times a day. Oak-Eio-Qdc-Mon), Disp: 90 tablet, Rfl: 3 warfarin sodium [...] carotid artery duplex bilateral Result Date: 08/25/2023 [facility] [address] [place] [address] and Vascular Lab Report [facility] US CAROTID ARTERY DUPLEX BILATERAL Patient Name: PAU MUÑOZ Reading [address] Qiana Parks MD, Physician: JUDD Study Date: 08/22/2023 Ordering 05179 JAYLON KISER Physician: MRN/PID: [id number] Technologist: June Nguyen Darya Technologist 2: Date of 1950 /Age: years Gender: F Admission Status: Outpatient Location [facility] Performed: Diagnosis/ICD: Occlusion and stenosis of bilateral carotid arteries-I65.23 Indication: Occlusion/stenosis, Carotid without cerebral infarction CPT Codes: 66188 Cerebrovascular Carotid Duplex scan complete Patient History [...] cm/s Right Left ICA/CCA Ratio 1.5 1.1 35669 Qiana Parks MD, RPVI Final Assessment/Plan Active [...] scan Jaylon Kiser DO documented in this encounterSouth[facility] Work Phone: [phone]) 961-521504-05-2024 Miscellaneous Notes* Telephone Encounter - Dasia Donaldson [...] Please advise, Thank you documented in this encounterE[facility]ria [facility]04-[facility] History of Present illness Narrative* Héctor Fairchild MD - 08/08/2023 11:30 AM EDT X * Héctor Fairchild MD - 08/08/2023 11:22 AM EDT Images from the original note were not included. SUBJECTIVE: The patient presents to [facility] Management Department for a follow-up [...] appointment call: [facility]: [phone]. [facility]: [phone], Option 1. [facility] ([place]) ADULTS - For an appointment call: [place], [place]: [phone] ([address]) [place], [place]: [phone] ([address]) or [phone] ([address]) [place], [place]: [phone] ([address]) or [phone] ([address], [address]) or [phone] ([address] [facility], [address]) PEDIATRICS - For an appointment call: [place], [place]: [phone] ([address]) The operations general agent will assist you in selecting the [...] which included: *preparing to see the patient *ywin-ah-ydyw patient care *completing clinical documentation *obtaining and/or [...] MD August 08, 2023 documented in this encounterElyria [facility] Hospital03-26-2024 Miscellaneous Notes* Telephone Encounter - Héctor Fairchild MD - 08/01/2023 3:05 PM EDT cxr documented in this encounterElyria [facility] Hospital02-06-2024 History of Present illness Narrative* Héctor Fairchild MD - 06/13/2023 11:24 AM EST Referring Or Consulting Physician: none CHIEF COMPLAINT: pain in my low back radiating to the left buttock and previously left leg HPI: This is a 73 year old female here for evaluation of pain , 04/23/2023 went to ER ([place]) Spasms in L leg. This pain has [...] Multilevel degenerative changes without acute osseous abnormality. Aeronautical Design Engineer: JAMAR Transcribe Date/Time: Apr 23 2023 9:16P [...] History XR LUMBAR GENERAL 3V AP/LAT/L5-S1 (Order #[id number]) on 04/23/2023 - Order Result History Report Result Information Status Provider Status Final result (04/23/2023 9:20 PM) Ordered Exam Performed Date and Time 04/23/2023 8:58 PM [facility] DIVISION OF RADIOLOGY [address] [...] which included: *preparing to see the patient *sxji-dk-afyx patient care *completing clinical documentation *obtaining and/or [...] MD June 13, 2023 documented in this encounterElyria [facility] Hospital01-31-2024 History of Present illness Narrative* Ronit [...] going to see Dr Moy Fairchild at [facility] at recommendation of Dr López for her back; he wanted her to see a spine doctor because of her hip/buttock pain She says that in the spring she will probably have right carpal tunnel syndrome She did note that her bowels are back to normal for her She did try farxiga prescribed by 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 She will see a habilitation training specialist due to the left-sided symptoms she had been having. She will see me again in 3 months. Lab orders entered. documented in this encounterSouthwest [facility] Work Phone: [phone]) 986-543601-31-2024 Instructions* Patient Instructions* Ronit Doan DO - 06/07/2023 1:30 PM EST You are doing well. Schedule mammogram. See me again in 3 months. Close to next visit, get blood test done after fasting. documented in this encounterSouthwest [facility] Center Work Phone: [phone]) 531-863601-09-2024 History of Present illness Narrative* Charline S [...] Do not open capsule. Pt gets otc xvaprqpyahh-zijibjtum-rhlrljjr (Trelegy Ellipta) 200-62.5-25 mcg blister with device [...] ... Medtronic Sensia, model SEDR01, serial number [id number] Lead1 = [employer]tronic, model 5076, serial #[id number] ... location Right Lead2 = Medtronic, model 5076, serial #[id number] Hz of CHB ... Follows with EP (HFpEF) heart failure with preserved ejection fraction (CMS/HCC) Overview Had mild CHF per CXR / BNP on 03/06/2021 [facility] admit Had ED visit 04/2023 No [...] intake Charline Hagen DO documented in this encounterSouthwest [facility] Work Phone: 1(574) 324-911301-09-2024 Instructions* Patient Instructions* Charline Hagen DO - 05/16/2023 2:45 PM EST Weight loss Watch salt intake documented in this [facility]UnOhio [facility] Work Phone: [phone]) 450-811401-03-2024 History of Present illness Narrative* Yg López [...] her orthopedic symptoms dictate. documented in this [facility] Work Phone: [phone]) 563-400312-29-2023 History of Present illness Narrative* Ronit Doan [...] they took her to F ER in [place] She was in severe pain , got some IV pain meds They admitted her and she went to [facility] and was there for 24 hours [...] (Ultram) 50 mg tablet documented in this encounterSouthwest [facility] Center Work Phone: 1(565) 817-350712-29-2023 Instructions* Patient Instructions* Ronit Doan DO - 05/05/2023 12:00 PM EST For bowels: I recommend trying Miralax ( or generic) . Do not take the colace. Can use once a day for a few days until things are back to normal. I also recommend trying Senekot which is a stimulant laxative. Could try doing them at different times of day. documented in this encounterSouthwest [facility] Work Phone: [phone] 880-957712-18-2023 Nurse Note* Rupert Cohen RN - 04/24/2023 [...] Vitalsstable, IV removed. Rupert Cohen Discharge R.N. [facility]12[facility] Nurse Note* Rupert Cohen RN - 04/24/2023 [...] Rupert Cohen Discharge R.N. documented in this encounterSouthwest [facility] Work Phone: [phone] 562-171312-18-2023 History of Present illness Narrative* Alda Rosen [...] General Reason for Referral: Pt presents to [facility] d/t acute L hip and low back [...] bars in shower) Prior Function: Level of [place]: Independent with ADLs and functional transfers, Independent [...] and LUE LUE: Within Functional Limits Outcome Measures:[facility] Daily Activity Putting on and taking off [...] Prior Function Per Pt/Caregiver Report Level of [place]: Independent with ADLs and functional transfers, Independent [...] assist by end of session. Outcome Measures: [facility] Basic Mobility Turning from your back to [...] Left hip pain. Pharmacy reviewed the patient's eenut-ku-oijsqqukv medications and allergies for accuracy. The list below reflectives the updated ASSOCIATE PROFESSOR OF FORESTRY list. Please review each medication in order [...] not open capsule. Pt gets otc 04/23/2023 hdqpefdfpen-tbgsxnebb-ajmqbwry (Trelegy Ellipta) 200-62.5-25 mcg blister with device [...] (2.5mg) by mouth 4 times a day. Zfv-Lwm-Snb-Mon) 90 tablet 3 04/23/2023 at 1800 warfarin [...] Below are additional concerns with the patient's ASSOCIATE PROFESSOR OF FORESTRY list. Mary Jo Horta CPhT documented in this [facility] Work Phone: [phone]) 993-540912-18-2023 History and physical note* Kira Olvera MD [...] open capsule. Pt gets otc Historical Provider, hlunwnuzgvb-ixyhyfnsq-hilvajov (Trelegy Ellipta) 200-62.5-25 mcg blister with device [...] is performed using different testing methodology at [facility] than at other [facility] hospitals. Direct result comparisons should only [...] is performed using different testing methodology at [facility] than at other system hospitals. Direct result [...] 13-18 <7.5 7-12 <8.0 0- 6 7.5-8.5 [employer]. Diabetes Care 33(S1), May 2009. 08/16/2022 08:47 AM 6.5 (A) % Final Comment: Diagnosis of Diabetes-Adults Non-Diabetic: < or = 5.6% Increased risk for developing diabetes: 5.7-6.4% Diagnostic of diabetes: > or = 6.5% . Monitoring of Diabetes Age (y) Therapeutic Goal (%) Adults: >18 <7.0 Pediatrics: 13-18 <7.5 7-12 <8.0 0- 6 7.5-8.5 [employer]. Diabetes Care 33(S1), May 2009. VLDL Date/Time Value Ref Range Status 08/16/2022 08:47 AM 39 0 - 40 mg/dL Final 09/16/2021 08:14 AM 44 (H) 0 - 40 mg/dL Final 04/13/2020 05:00 PM 41 (H) 0 - 40 mg/dL Final [facility] Work Phone: [phone]) 908-212812-18-2023 History and physical note* Kira Olvera MD [...] open capsule. Pt gets otc Historical Provider, zqbcjslfqhr-nomdhepfx-kiedqtuv (Trelegy Ellipta) 200-62.5-25 mcg blister with device [...] is performed using different testing methodology at [facility] than at other system hospitals. Direct result [...] is performed using different testing methodology at [facility] than at other system hospitals. Direct result [...] 13-18 <7.5 7-12 <8.0 0- 6 7.5-8.5 [employer]. Diabetes Care 33(S1), May 2009. 08/16/2022 08:47 AM 6.5 (A) % Final Comment: Diagnosis of Diabetes-Adults Non-Diabetic: < or = 5.6% Increased risk for developing diabetes: 5.7-6.4% Diagnostic of diabetes: > or = 6.5% . Monitoring of Diabetes Age (y) Therapeutic Goal (%) Adults: >18 <7.0 Pediatrics: 13-18 <7.5 7-12 <8.0 0- 6 7.5-8.5 [employer]. Diabetes Care 33(S1), May 2009. VLDL Date/Time Value Ref Range Status 08/16/2022 08:47 AM 39 0 - 40 mg/dL Final 09/16/2021 08:14 AM 44 (H) 0 - 40 mg/dL Final 04/13/2020 05:00 PM 41 (H) 0 - 40 mg/dL Final documented in this encounterUnOhio [facility] Work Phone: 1(279) 359-739012-18-2023 Plan of care note* Care Plan - [...] goals for the shift include no falls [facility] Work Phone: [phone]) 591-556512-18-2023 Miscellaneous Notes* Care Plan - Juan Barboza [...] shift include no falls documented in this encounterSouthwest [facility] Work Phone: [phone]) 484-414912-18-2023 Plan of care note* Care Plan - Juan Barboza RN - 04/24/2023 4:18 AM EST The patient's goals for the shift include pain control The clinical goals for the shift include no falls [facility] [facility] Work Phone: [phone] History of Present illness Narrative* Faiza Marie [...] 23, 2023 9:10 PM [facility] History of Present illness Narrative* Ronit [...] (Ultram) 50 mg tablet [facility] Work Phone: [phone] Instructions* Patient Instructions* Ronit Doan DO - 02/17/2023 1:30 PM EDT You are doing well. See me in May for Medicare Wellness visit. documented in [facility]South[facility] Work Phone: [phone] History of Present illness Narrative* Patient identification verified with 2 patient identifiers. * Anticoagulation Monitoring Service: [facility]. * August 10, 2023. * The patient is being seen as a follow-up for anticoagulation monitoring. * Target INR 2-3. Monitoring practitioner Ronit Doan DO. * Date Warfarin Begun: August 01, 2022. * INR monitoring is per [facility] protocol. * The patient is on anticoagulation due to atrial fibrillation/flutter. * The patient is currently taking warfarin Tablet strength and color: 2.5 mg (Green) * Interval History: * Patient was last seen: January 04, 2023. * Previous INR was 2.6. * Incoming total weekly dose 13.75 mg. * Today's Clinic INR: [facility] INR 2.2. * Since last visit, the [...] with questions, concerns and changes. [facility]tico[facility] Work Phone: [phone] History of Present illness Narrative* Patient identification verified with 2 patient identifiers. * Anticoagulation Monitoring Service: [facility]. * August 10, 2023. * The patient is being seen as a follow-up for anticoagulation monitoring. * Target INR 2-3. Monitoring practitioner Ronit Doan DO. * Date Warfarin Begun: August 01, 2022. * INR monitoring is per [facility] protocol. * The patient is on anticoagulation due to atrial fibrillation/flutter. * The patient is currently taking warfarin Tablet strength and color: 2.5 mg (Green) 5 mg([place]). * Interval History: * Patient was last [...] with questions, concerns and changes. [facility]tico[facility] [email or web address] Phone: [phone] History of Present illness Narrative* Patient identification verified with 2 patient identifiers. * Anticoagulation Monitoring Service: [facility]. * August 10, 2023. * The patient is being seen as a follow-up for anticoagulation monitoring. * Target INR 2-3. Monitoring practitioner Ronit Doan DO. * Date Warfarin Begun: August 01, 2022. * INR monitoring is per [facility] protocol. * The patient is on anticoagulation due to atrial fibrillation/flutter. * The patient is currently taking warfarin Tablet strength and color: 2.5 mg (Green) 5 mg([place]). * Interval History: * Patient was last [...] educated on signs of bleeding/clotting. [facility] Phone: [phone] History of Present illness Narrative* Ronit Doan, [...] keep her next appt. [facility] Work Phone: [phone] Instructions* Patient Instructions* Ronit Doan DO - [...] overlap with remaining doxycycline. documented in [facility]South[facility] Work Phone: [phone] History of Present illness Narrative* Patient identification verified with 2 patient identifiers. * Anticoagulation Monitoring Service: [facility]. * August 10, 2023. * The patient is being seen as a follow-up for anticoagulation monitoring. * Target INR 2-3. Monitoring practitioner Ronit Doan DO. * Date Warfarin Begun: August 01, 2022. * INR monitoring is per [facility] protocol. * The patient is on anticoagulation due to atrial fibrillation/flutter. * The patient is currently taking warfarin Tablet strength and color: 2.5 mg (Green) 5 mg([place]). * Interval History: * Patient was last [...] with questions, concerns and changes. [facility] Phone: [phone] History of Present illness Narrative* Ronit Doan, DO - 11/11/2022 1:30 PM EDT Subjective Pau Muñoz is a 72 y.o. female who presents for Follow-up (3 month follow up visit). She has a cough that is intermittent. Saw her vessel ordinary seaman October 10 and he did not make [...] lisinopril. She is stable. [facility] Work Phone: [phone] Instructions* Patient Instructions* Ronit Doan DO - 11/11/2022 1:30 PM EDT See me again in 3 months. Get A1c test close to next visit. documented in this encounterSouth[facility] Work Phone: [phone] History of Present illness Narrative* Ronit Doan DO - 10/04/2022 3:45 PM EDT Bishop Muñoz is a 72 y.o. female who [...] Free T4 if abnormal documented in this encounterSouth[facility] Work Phone: [phone] Instructions* Patient Instructions* Ronit Doan DO - 10/04/2022 3:45 PM EDT Keep next appt with me in November. I entered blood test orders. documented in this encounterSouth[facility] Work Phone: [phone] History of Present illness Narrative* Patient identification verified with 2 patient identifiers. * Anticoagulation Monitoring Service: [facility]. * August 10, 2023. * The patient is being seen as a follow-up for anticoagulation monitoring. * Target INR 2-3. Monitoring practitioner Ronit Doan DO. * Date Warfarin Begun: August 01, 2022. * INR monitoring is per [facility] protocol. * The patient is on anticoagulation due to atrial fibrillation/flutter. * The patient is currently taking warfarin Tablet strength and color: 5 mg([place]) * Interval History: * Patient was last [...] educated on signs of bleeding/clotting. Anticoagulation Monitoring Service[facility] Phone: [phone] History of Present illness Narrative* Patient identification verified with 2 patient identifiers. * Anticoagulation Monitoring Service: [facility]. * August 10, 2023. * The patient is being seen as a follow-up for anticoagulation monitoring. * Target INR 2-3. Monitoring practitioner Ronit Doan DO. * Date Warfarin Begun: August 01, 2022. * INR monitoring is per [facility] protocol. * The patient is on anticoagulation due to atrial fibrillation/flutter. * The patient is currently taking warfarin Tablet strength and color: 5 mg([place]) * Interval History: * Patient was last [...] educated on signs of bleeding/clotting. [facility] Phone: [phone] History of Present illness Narrative* Patient identification verified with 2 patient identifiers. * Anticoagulation Monitoring Service: [facility]. * August 10, 2023. * The patient is being seen as a follow-up for anticoagulation monitoring. * Target INR 2-3. Monitoring practitioner Ronit Doan DO. * Date Warfarin Begun: August 01, 2022. * INR monitoring is per [facility] protocol. * The patient is on anticoagulation due to atrial fibrillation/flutter. * The patient is currently taking warfarin Tablet strength and color: 5 mg([place]) * Interval History: * Patient was last seen: August 19, 2022. * Previous INR was 3.9. One dose of warfarin was held and TWD was reduced at time of last appointment. * Incoming total weekly dose 27.5 mg. * Today's Clinic INR: [facility] INR 4.9. * Since last visit, the [...] educated on signs of bleeding/clotting. [facility] Phone: [phone] History of Present illness Narrative* Ronit Doan [...] present See med monitoroing documented in this encounterSouth[facility] Work Phone: [phone] Instructions* Patient Instructions* Ronit Doan DO - 08/11/2022 9:30 AM EDT See me in 3 months. documented in this encounterSouth[facility] Work Phone: [phone] History of Present illness NarrativeThis patient presents [...] any fever chills nausea vomiting or headache- [facility] Work Phone: [phone] History of Present illness Narrative* cough and [...] heart disease. [facility] Work Phone: [phone] NotePROCEDURE DETAILS Preoperative Diagnosis: Acquired trigger finger of right middle finger, M65.331 Postoperative Diagnosis: Acquired trigger finger of right middle finger, M65.331 Surgeon: Yg López Resident/Fellow/Other Pedigree Researcher: Keeley Kessler Procedure: 1. RIGHT MIDDLE FINGER A-1 LINN RELEASE Anesthesia: No anesthesiologist associated with this case Estimated Blood Loss: 1mL Blood Replaced: none Findings: thickened A-1 linn Specimens(s) Collected: no, Complications: none Tourniquet Times: 4 minutes at 250mmHg on right forearm Patient Returned To/Condition: stable Date of Dictation: 01-Mar-2022 Dictated By: Yg López MD Dictation Job Number: [id number] Attestation: Note Completion: Attending AttestationI performed the procedure without a resident Electronic Signatures: Yg López) (Signed 01-Mar-2022 10:11) Authored: Post-Operative Note, Chart Review, Note Completion Last Updated: 01-Mar-2022 10:11 by Yg López)[facility] 03-01-2022 NoteHistory & Physical Reviewed: [...] Completion Last Updated: 01-Mar-2022 04:34 by Yg López)[facility] 01-17-2022 History of Present illness Narrative* she saw Dr López, and she is going to have a trigger finger release on her right hand. * She also has a 6-month ultrasound status post her carotid endarterectomy to examine the opposite side. * She has an appointment scheduled with Felisha LACY at [facility] who follows her MGUS * Her A1c is a bit more elevated at 6.5. * she has never been treated for DM * her main dietary downfall are sweets at sabianist events or going out with friends * [...] or diarrhea. [facility] Work Phone: [phone] History of Present illness Narrative Presents with [...] or any direct trauma to the back[facility] Work Phone: [phone] History of Present illness Narrative* she has [...] on pulmicort -[facility] Work Phone: [phone] 515-670803-01-2022 History of Present illness Narrative* she has [...] or diarrhea -[facility] Work Phone: [phone]) [phone] History of Present illness Narrative* she had [...] she says she had seen pulm in [place], but wanted to see Dr Gibson on [...] in August -[facility] Work Phone: [phone] Chief complaint Narrative - Reported* PAU MUÑOZ is being seen for follow-up of a hospitalization for evaluation. * Patient is here for in office visit patient was d/c from [facility] on 03/09/2021 w/ CHF had Cath w/o stent [facility] Work Phone: [phone] Chief complaint Narrative - Reported* PAU MUÑOZ is being seen for follow-up of a hospitalization for evaluation. * Patient is here for in office visit patient was d/c from [facility] on 03/09/2021 w/ CHF had Cath w/o stent [facility] Work Phone: [phone] History of Present illness Narrative* Admitted to [facility] 03/06/21 with acute SOB * Had troponin bump-cath with non-obstructive dz * She did have increased BNP and mild CHF on CXR-was DC'ed on increased dose Lasix * No problems at R groin cath site * No definite angina * Some ANDREWS * Occasional palpitations * Had LH episode last week in setting of dehydration * No edema [facility] Work Phone: [phone] History of Present illness Narrative* Admitted to [facility] 03/06/21 with acute SOB * Had troponin bump-cath with non-obstructive dz * She did have increased BNP and mild CHF on CXR-was DC'ed on increased dose Lasix * No problems at R groin cath site * No definite angina * Some ANDREWS * Occasional palpitations * Had LH episode last week in setting of dehydration * No edema [facility] Work Phone: [phone] History of Present illness Narrative* last Fri [...] ear fullness -[facility] Work Phone: [phone] History of Present illness NarrativePatient presents with [...] She is also taken amoxicillin and done well.[facility] Work Phone: [phone] History of Present illness NarrativePatient presents with [...] She is also taken amoxicillin and done well.[facility] Work Phone: [phone] History of Present illness Narrative* 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 * had blood in august * she sees the DIRECT SUPPORT WORKER at [facility] for MGUS management, * She was [...] by herself * had been working in [email or web address] until last fall 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 prefers [facility] for hospital * september 2018 tetanus booster after injuring a finger * uses antibiotic prophylactically for dental procedure * state she has had both pneumonia vaccines [facility] Work Phone: [phone] 441-667607-14-2014 History of Present illness Narrative* 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 * had blood in august * she sees produce runner for MGUS management, * pacemaker May 2019 [...] by herself * had been working in [email or web address] until last fall * 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 Will d/c accuchecks and SSI today / documented as of this encounter (statuses as of 04/24/2023) [facility] History of Past illness Narrative* Problem Noted Date Diagnosed Date Resolved Date POST OP HYPERGLYCEMIA 08/30/20082008 Overview: 09/01 no coverage in 24 hours. Will d/c accuchecks and SSI today / documented as of this encounter (statuses as of 06/28/2023) [place] [address]-25-2009 History of Past illness Narrative* Problem Noted Date Diagnosed Date Resolved Date POST OP HYPERGLYCEMIA 08/30/20082008 Overview: 09/01 no coverage in 24 hours. Will d/c accuchecks and SSI today / documented as of this encounter (statuses as of 08/01/2023) [facility] History of Past illness Narrative* Problem Noted Date Diagnosed Date Resolved Date POST OP HYPERGLYCEMIA 08/30/20082008 Overview: 09/01 no coverage in 24 hours. Will d/c accuchecks and SSI today / documented as of this encounter (statuses as of 08/09/2023) [place] [address]-25-2009 History of Past illness Narrative* Problem Noted Date Diagnosed Date Resolved Date POST OP HYPERGLYCEMIA 08/30/20082008 Overview: 09/01 no coverage in 24 hours. Will d/c accuchecks and SSI today / documented as of this encounter (statuses as of 08/11/2023) [facility] HospitalChi complaint Narrative - ReportedThe patient presents to the office today for an initial evaluation. NPV; Severe Carotid Stenosis, Left 546/217.[facility] [facility] Work Phone: Consult note Author Zoey Aggarwal [facility] Note Date/Time July 17, 2024 12: 35pm [facility] Medical Records Department [address] [place] [address] Anesthesia Postop Eval I 07/17/24 1234 MR#: [id number] Acct: [id number] Name: PAU MUÑOZ Rep #:[id number] : 1950 74 From: Zoey Aggarwal PCP: Dr. Ronit Doan, DO Status:REG S DC Y Race: C Location: [place] [address] Anesthesia: Postop Eval I Current Vital Signs [...] Zoey Jara Signature: Date CC: ~ Signed [facility] Work Phone: Consult note Author Moy Blair [facility] Note Date/Time July 17, 2024 1:2 4pm [facility] Medical Records Department [address] [place] [address] Anesthesia Postop Eval II 07/17/24 1256 MR#: [id number] Acct: [id number] Name: PAU MUÑOZ Rep #:[id number] : 1950 74 From: Moy Blair MD PCP: Dr. Ronit Doan, DO Status:REG S DC Y Race: C Location: [place] [address] Anesthesia Postop Eval I Sum Postop Eval Completion status Anesthesia document: Postop Eval 1 completed: Yes Anesthesia Postop Eval I Summary Anesthesia Postop Eval I Summary: Anesthesia Postop Eval I: Assessment Summary Airway patent Yes 07/17/24 12:35 [email or web address] Spontaneous unlabored Yes 07/17/24 12:35 [email or web address] respirations Mental status Awake,Calm 07/17/24 12:35 [email or web address] nausea No 07/17/24 12:35 [email or web address] Vomiting No 07/17/24 12:35 [email or web address] Anesthesia Postop Eval I: Fluid Summary Crystalloid volume administer 700 07/17/24 12:35 [email or web address] (ml) Colloids volume administered ( ml) Blood Product volume administered (ml) Total IV fluid infused 700 07/17/24 12:35 [email or web address] Anesthesia Postop Eval I: Summary Notes Anesthesia Complication No 07/17/24 12:35 [email or web address] Anesthesia Complication Comment: Post-operative progress note Anesthesia: Postop Eval II Evaluation Mental status: Awake Pain Level: 0 nausea: No Vomiting: No 07/17/24 1256 <Electronically signed by Moy Blair MD > Date _ Moy Blair MD Cosigner Signature: Date CC: ~ Signed [facility] Work Phone: Discharge summary Author Nawaf Mccarthy [facility] Note Date/Time July 17, 2024 12: 21pm [facility] Medical Records Department [facility] [place] [address] Instructions for Home/Discharge Instructions 07/17/24 1215 MR#: [id number] Acct: [id number] Name: PAU MUÑOZ Rep #:[id number] : [...] Primary Care Provider: Ronit Doan Print Language: New Zealander Discharge Orders/Prescriptions Prescriptions: New hydrocodone-acetaminophen 5-325 mg [...] Mccarthy MD>Nawaf Mccarthy MD CC: Dr. Ronit Daon DO ~ Signed [facility] Work Phone: Evaluation + Plan note No data available for this section [facility] Evaluation note* Constitutional: Alert and oriented [...] motionExtremities: Palpable peripheral pulsesNeurological: Alert and oriented w2Oulubu: DeferredLymphatic: No significant lymphadenopathyPsychological: Appropriate mood and behavior [facility] Other Phone (unformatted): [phone] note* Diagnosis Chronic atrial fibrillation (CMS/HCC)- Primary Atrial fibrillation Prediabetes Other abnormal glucose Hyperglycemia Other abnormal glucose Medication monitoring encounter Encounter for therapeutic drug monitoring Chronic low back pain, unspecified back pain laterality, unspecified whether sciatica present Warfarin anticoagulation documented in this [facility] Work Phone: [phone] note* Diagnosis Prediabetes- Primary Other abnormal glucose Longstanding persistent atrial fibrillation (CMS/HCC) Moderate persistent asthma without complication documented in this encounter [facility] Work Phone: [phone] note* Diagnosis Elevated glucose- Primary Other abnormal glucose Prediabetes Other abnormal glucose Longstanding persistent atrial fibrillation (CMS/HCC) Essential hypertension Unspecified essential hypertension Moderate persistent asthma without complication Chronic heart failure with preserved ejection fraction (CMS/HCC) documented in this encounter [facility] Work Phone: [phone] note* Diagnosis Cellulitis of right lower extremity- Primary documented in this encounter [facility] Work Phone: [phone] note* Diagnosis Type 2 diabetes mellitus with hyperglycemia, without long-term current use of insulin (CMS/HCC)- Primary Generalized arthritis Primary osteoarthritis involving multiple joints Moderate persistent asthma without complication Longstanding persistent atrial fibrillation (CMS/HCC) documented in this encounter [facility] Work Phone: [phone] note* Diagnosis Cardiac pacemaker in situ CHB (complete heart block) (CMS/HCC) Atrioventricular block, complete documented in this encounter [facility] Work Phone: [phone] note* Diagnosis Cardiac pacemaker in situ CHB (complete heart block) (CMS/HCC) Atrioventricular block, complete documented in this encounter [facility] Work Phone: [phone] note* Diagnosis Dyspnea on exertion Other dyspnea and respiratory abnormality documented in this encounter [facility] Work Phone: [phone] note* Diagnosis Sinoatrial node dysfunction (CMS/HCC) Sinoatrial node dysfunction documented in this encounter [facility] Work Phone: [phone] note* Diagnosis Sinoatrial node dysfunction (CMS/HCC) Sinoatrial node dysfunction documented in this encounter [facility] Work Phone: [phone] note* Diagnosis Left hip pain- Primary Pain in joint, pelvic region and thigh Left hip pain Pain in joint, pelvic region and thigh Low back pain Lumbago documented in this encounter [facility] Work Phone: Evaluation note* Diagnosis Left low back pain, unspecified chronicity, unspecified whether sciatica present- Primary documented in this encounter [facility] Work Phone: [phone] note* Diagnosis Stenosis of carotid artery, unspecified laterality- Primary Heart failure with preserved ejection fraction, unspecified HF chronicity ([facility]) Atherosclerosis of coronary artery of circle heart, unspecified vessel or lesion type, unspecified whether angina present Essential hypertension Unspecified essential hypertension Paroxysmal atrial fibrillation ([facility]) Atrial fibrillation Dyslipidemia Other and unspecified hyperlipidemia Presence of cardiac pacemaker Cardiac pacemaker in situ documented in this encounter [facility] Work Phone: [phone] note* Diagnosis Left buttock pain- Primary Unspecified myalgia and myositis Generalized arthritis Type 2 diabetes mellitus with hyperglycemia, without long-term current use of insulin ([facility]) Left ventricular dysfunction Left heart failure Longstanding persistent atrial fibrillation ([facility]) Spondylosis with myelopathy, lumbar region Primary osteoarthritis of left hip Acute hip pain, left documented in this encounter [facility] Work Phone: [phone] note* Diagnosis Type 2 diabetes mellitus with hyperglycemia, without long-term current use of insulin ([facility])- Primary Essential hypertension Unspecified essential hypertension Visit for screening mammogram Encounter for preventative adult health care examination Encounter for screening for other disorder documented in this encounter [facility] Work Phone: Evaluation note* Diagnosis Visit for screening mammogram Carotid stenosis- Primary Occlusion and stenosis of carotid artery without mention of cerebral infarction Carotid stenosis, bilateral Occlusion and stenosis of carotid artery without mention of cerebral infarction documented in this encounter [facility] Work Phone: Evaluation note* Diagnosis Acute exacerbation of chronic low back pain- Primary Lumbago Cardiac pacemaker in situ Shortness of breath Chronic anticoagulation Long-term (current) use of anticoagulants Spinal stenosis of lumbar region with neurogenic claudication Spinal stenosis, lumbar region, with neurogenic claudication [facility] AICD (automatic cardioverter/defibrillator) present- Primary Automatic implantable cardiac defibrillator in situ [facility] Diagnosis Spinal stenosis, lumbar region with neurogenic claudication- Primary CAD, multiple vessel Coronary atherosclerosis of unspecified type of vessel, circle or graft Presence of cardiac pacemaker Cardiac pacemaker in situ [facility]* Diagnosis Atrioventricular block, complete (CMS/HCC) Atrioventricular block, complete Presence of cardiac pacemaker Cardiac pacemaker in situ Carotid stenosis- Primary Occlusion and stenosis of carotid artery without mention of cerebral infarction Carotid stenosis, bilateral Occlusion and stenosis of carotid artery without mention of cerebral infarction documented in this encounter [facility] Work Phone: Evaluation note* Diagnosis Atrioventricular block, complete (CMS/HCC) Atrioventricular block, complete Presence of cardiac pacemaker Cardiac pacemaker in situ Carotid stenosis- Primary Occlusion and stenosis of carotid artery without mention of cerebral infarction Carotid stenosis, bilateral Occlusion and stenosis of carotid artery without mention of cerebral infarction documented in this encounter [facility] Work Phone: Evaluation note* Diagnosis Complete atrioventricular block (CMS/HCC) Atrioventricular block, complete Presence of cardiac pacemaker Cardiac pacemaker in situ Carotid stenosis- Primary Occlusion and stenosis of carotid artery without mention of cerebral infarction Carotid stenosis, bilateral Occlusion and stenosis of carotid artery without mention of cerebral infarction documented in this encounter [facility] Work Phone: Evaluation note* Diagnosis Carotid stenosis [...] of cerebral infarction documented in this encounter [facility] Work Phone: Evaluation note* Diagnosis Carotid stenosis [...] of cerebral infarction documented in this encounter [facility] Work Phone: Evaluation note* Diagnosis Medication monitoring encounter- Primary Encounter for therapeutic drug monitoring Type 2 diabetes mellitus with hyperglycemia, without long-term current use of insulin (Multi) Essential hypertension Unspecified essential hypertension Generalized arthritis Paroxysmal atrial fibrillation (Multi) Atrial fibrillation Spinal stenosis of lumbar region with neurogenic claudication documented in this encounter [facility] Work Phone: Evaluation note* Diagnosis Complete atrioventricular block (Multi)- Primary Atrioventricular block, complete Presence of cardiac pacemaker Cardiac pacemaker in situ documented in this encounter [facility] Work Phone: Evaluation note* Diagnosis Paroxysmal atrial fibrillation (Multi) Atrial fibrillation 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, complete Presence of cardiac pacemaker Cardiac pacemaker in situ documented in this encounter [facility] Work Phone: Evaluation note* Diagnosis Spinal stenosis, lumbar region with neurogenic claudication- Primary CAD, multiple vessel Coronary atherosclerosis of unspecified type of vessel, circle or graft AICD (automatic cardioverter/defibrillator) present Automatic implantable cardiac defibrillator in situ Cardiac pacemaker in situ Spinal stenosis of lumbar region with neurogenic claudication Spinal stenosis, lumbar region, with neurogenic claudication [facility] Diagnosis Chronic heart failure with [...] of anticoagulant therapy documented in this encounter [facility] Work Phone: Evaluation note* Diagnosis Chronic heart [...] pacemaker in situ documented in this encounter [facility] Work Phone: Evaluation note* Diagnosis Atherosclerosis of coronary artery of circle heart, unspecified vessel or lesion type, unspecified whether angina present- Primary Heart failure with preserved ejection fraction, unspecified HF chronicity (Multi) Essential hypertension Unspecified essential hypertension Paroxysmal atrial fibrillation (Multi) Atrial fibrillation Stenosis of carotid artery, unspecified laterality Hypercholesterolemia Pure hypercholesterolemia High triglycerides Unspecified disorder of lipoid metabolism Presence of cardiac pacemaker Cardiac pacemaker in situ documented in this encounter [facility] Work Phone: Evaluation note* Diagnosis Chronic heart [...] accident, initial encounter documented in this encounter [facility] Work Phone: Evaluation note* Diagnosis Chronic heart [...] Atrioventricular block, complete documented in this encounter [facility] Work Phone: Evaluation note* Diagnosis Chronic heart [...] Unspecified essential hypertension documented in this encounter [facility] Work Phone: Evaluation note* Diagnosis Chronic heart [...] preserved ejection fraction documented in this encounter [facility] Work Phone: Evaluation note* Diagnosis Chronic heart [...] On warfarin therapy documented in this encounter [facility] Work Phone: Evaluation note* Diagnosis Chronic heart [...] Breast pain Mastodynia documented in this encounter [facility] Work Phone: Evaluation note* Diagnosis Chronic heart [...] upper inner quadrant documented in this encounter [facility] Work Phone: Evaluation note* Diagnosis Chronic heart [...] therapeutic drug monitoring documented in this encounter [facility] Work Phone: Evaluation note* Diagnosis Chronic heart [...] pacemaker in situ documented in this encounter [facility] Work Phone: Evaluation note* Diagnosis Chronic heart [...] left carotid artery documented in this encounter [facility] Work Phone: Evaluation note* Diagnosis Spinal stenosis, lumbar region with neurogenic claudication CAD, multiple vessel Coronary atherosclerosis of unspecified type of vessel, circle or graft AICD (automatic cardioverter/defibrillator) present Automatic implantable cardiac defibrillator in situ Cardiac pacemaker in situ Spinal stenosis of lumbar region with neurogenic claudication Spinal stenosis, lumbar region, with neurogenic claudication [facility]* Diagnosis Spinal stenosis, lumbar region with neurogenic claudication CAD, multiple vessel Coronary atherosclerosis of unspecified type of vessel, circle or graft AICD (automatic cardioverter/defibrillator) present Automatic implantable cardiac defibrillator in situ Cardiac pacemaker in situ Spinal stenosis of lumbar region with neurogenic claudication Spinal stenosis, lumbar region, with neurogenic claudication documented [facility]* Diagnosis Spinal stenosis, lumbar region with neurogenic claudication CAD, multiple vessel Coronary atherosclerosis of unspecified type of vessel, circle or graft AICD (automatic cardioverter/defibrillator) present Automatic implantable cardiac defibrillator in situ Cardiac pacemaker in situ Spinal stenosis of lumbar region with neurogenic claudication Spinal stenosis, lumbar region, with neurogenic claudication documented [facility]* Diagnosis Chronic heart failure with preserved [...] of cerebral infarction documented in this encounter [facility] Work Phone: Evaluation note* Diagnosis Chronic heart [...] retinal disease (Multi) documented in this encounter [facility] Work Phone: Evaluation note* Diagnosis Chronic heart [...] pacemaker in situ documented in this encounter [facility] Work Phone: Evaluation note* Diagnosis Chronic heart [...] involving multiple joints documented in this encounter [facility] Work Phone: Evaluation note* Diagnosis Chronic heart [...] pacemaker in situ documented in this encounter [facility] Work Phone: History of Present illness Narrative* This is a 70-year-old female with a history of atrial fibrillation and complete heart block. She was recently seen in the emergency department at [facility] with shortness of breath. She had mild CHF and was placed on a higher dose of oral furosemide. The hospital records were reviewed with her during today's visit. * The patient was hospitalized early in 2019 at [facility] because of pneumonia. She hadanother hospitalization in 2020 for COVID-19. No chest pain or any pacemaker related problems at this time. [facility] Work Phone: History of Present illness Narrative* [...] Pau was hospitalized early in 2019 at [facility] because of pneumonia. She had another hospitalization in 2020 because of COVID-19. [address] Work Phone: History of Present illness Narrative* This is a 70-year-old female with a history of atrial fibrillation and complete heart block. She has noticed an increase in dyspnea on exertion. No orthopnea. No chest pain or palpitations. * Pau was hospitalized early in 2019 at [facility] because of pneumonia. She had another hospitalization in 2020 because of COVID-19. [facility] Work Phone: History of Present illness Narrative* [...] for VSD, CHF, pneumonia, hypertension, hypercholesterolemia, asthma [facility] Work Phone: History of Present illness Narrative* This is a 70-year-old female with a history of atrial fibrillation and complete heart block. She has noticed an increase in dyspnea on exertion. No orthopnea. No chest pain or palpitations. * Pau was hospitalized early in 2019 at [facility] because of pneumonia. She had another hospitalization in 2020 because of COVID-19. [facility] Work Phone: History of Present illness NarrativeThidarya is a 71-year-old female with atrial fibrillation and complete heart block. She has a Medtronicpermanent pacemaker. Currently no complaints of palpitations or chest pain. She still has dyspnea on exertion at times.[facility] [address] [place] Work Phone: History [...] any fever chills nausea vomiting or headache [facility] Work Phone: History of Present illness Narrative* Has chronic ANDREWS- no wheeze * Occasional transient palpitations * No CP/dizziness/LH/edema * Active but no regular exercise * No bleeding with Xarelto [facility] Work Phone: History of Present illness NarrativePatient comes in today for first postoperative visit after undergoing a right middle finger triggerrelease. She has had very little pain. She has been able to use her right middle finger without difficulty.[facility] [address] DO Work Phone: History of [...] mile * she visits family, goes to [employer] a lot [facility] Work Phone: History of Present illness Narrative* Patient identification verified with 2 patient identifiers. * Anticoagulation Monitoring Service: [facility]. * Enrollment/Re-enrollment date: August 17, 2023. * [...] taking warfarin Tablet strength and color: 5 mg([place]) * Interval History: * Previous INR was [...] total weekly dose 30 mg. [facility] Work Phone: History of Present illness Narrative* Patient identification verified with 2 patient identifiers. * Anticoagulation Monitoring Service: [facility]. * August 10, 2023. * The patient [...] strength and color: 2.5 mg (Green) 5 mg([place]). * Interval History: * Patient was last [...] educated on signs of bleeding/clotting. [facility] Work Phone: Instructions* Name Dates Details Instructions not documented [facility] Work Phone: Instructions* Instruction Text Follow up with your doctor. [facility] Reason for referral (narrative)* Consultation (Routine) - Authorized Specialty Diagnoses / Procedures Referred By Nikki pandey Referred To Contact Cardiology Diagnoses Heart failure with preserved ejection fraction, unspecified HF chronicity ([facility]) Procedures Follow Up In Cardiology Charline Hagen DO [address] [facility] [address], [place] [id number] Referral ID Status Reason Start Date Expiration Date V isits Requested Visits Authorized [id number] Authorized 05/16/2023 05/15/2024 1 1 [facility] Work Phone: Reason for referral (narrative)* Consultation (Routine) - Authorized Specialty Diagnoses / Procedures Referred By Nikki pandey Referred To Contact Cardiology Diagnoses Heart failure with preserved ejection fraction, unspecified HF chronicity (Multi) Procedures Follow Up In Cardiology Charline Hagen DO [address], [address] [address] Referral ID Status Reason Start Date Expiration Date V isits Requested Visits Authorized [id number] Authorized 11/14/2023 11/13/2024 1 1 * Cardiovascular (Routine) - Authorized Specialty Diagnoses / Procedures Referred By Contac t Referred To Contact Diagnoses Heart failure with preserved ejection fraction, unspecified HF chronicity (Multi) Procedures ECG 12 Lead Charline Hagen DO [address] [facility] [address], [address] [address] Referral ID Status Reason Start Date Expiration Date V isits Requested Visits Authorized [id number] Authorized 11/14/2023 11/13/2024 1 1 [facility] Work Phone: Reijla for referral (narrative)No reason for referral information [facility] Work [facility]: Reason for visit Narrative* Imaging (Routine) - Authorized Specialty Diagnoses / Procedures Referred By Contac t Referred To Contact Cardiology Diagnoses Atrioventricular block, complete (Multi) Procedures Cardiac device check - In Clinic Timotyh Palacio DO [address], [address] [address] Phone: tel: fax: Referral ID Status Reason Start Date Expiration Date Visits Requested Visits Authorized [id number] Authorized Perform Procedure 04/12/2024 04/12/2025 1 1 [facility] Work Phone: Rellhp for visit Narrative* Imaging (Routine) - Authorized Specialty Diagnoses / Procedures Referred By Contac t Referred To Contact Radiology Diagnoses Breast pain Procedures BI mammo bilateral diagnostic tomosynthesis Ronit Doan DO [address] [facility], [facility] [address] [place] [address] Phone: tel: fax: Referral ID Status Reason Start Date Expiration Date Visits Requested Visits Authorized [id number] Authorized Perform Procedure 06/11/2024 06/11/2025 1 1 [facility] Work Phone: Reuhcj for visit Narrative* Imaging (Routine) - Authorized Specialty Diagnoses / Procedures Referred By Contac t Referred To Contact Radiology Diagnoses Palpable mass of breast Unspecified lump in the right breast, upper inner quadrant Procedures BI US breast limited right Ronit Doan, DO [address] [facility], [facility] [address] [place] [address] Phone: tel: fax: Referral ID Status Reason Start Date Expiration Date Visits Requested Visits Authorized [id number] Authorized Perform Procedure 07/05/2024 07/05/2025 1 1 [facility] Work Phone: Reumzt for visit Narrative* Imaging (Routine) - Authorized Specialty Diagnoses / Procedures Referred By Contac t Referred To Contact Cardiology Diagnoses Paroxysmal atrial fibrillation (Multi) Complete atrioventricular block (Multi) Presence of cardiac pacemaker Procedures Cardiac Device Check - Remote Timothy Palacio DO [address] [facility] [address], [address] [address] Phone: tel: fax: [facility] 3 [address] [facility] [address] [address] Phone: tel: fax: Referral ID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 Doan DO [address] [facility], [address] [place] [address] PCP - General 11/17/20 Ronit Doan DO [address] [facility], [address] [place] [address] PCP - MSSP ACO Attributed Provider 05/08/21 Charline Hagen, [address] [place] [address] Consulting Physician Cardiology 03/24/21 Timothy Palacio, DO [address], [address] [place] [address] Consulting Physician Cardiology 03/22/17 Painter Bottom Relationship Specialty Start Date End Date Ronit Doan DO [address] [facility], [facility] [address] [place] [address] PCP - General 11/17/20 Ronit Doan DO [address] [facility], [address] [address] PCP - MSSP ACO Attributed Provider 05/08/21 Charline Hagen DO [address] [facility] [address] [place] [address] Consulting Physician Cardiology 03/24/21 Timothy Palacio, [address], [address] [address] Consulting Physician Cardiology 03/22/17 Painter Bottom Relationship Specialty Start Date End Date Ronit Doan DO [address] [facility], [address] [address] PCP - General 11/17/20 Ronit Doan DO [address] [facility], [address] [address] PCP - MSSP ACO Attributed Provider 05/08/21 Charline Hagen, [address] [facility] [address] [place] [address] Consulting Physician Cardiology 03/24/21 Timothy Palacio, [address] [facility], [address] [place] [address] Consulting Physician Cardiology 03/22/17 Painter Bottom Relationship Specialty Start Date End Date Ronit Doan DO [address] [facility], [address] [place] [address] PCP - General 11/17/20 Ronit Doan DO [address] [facility], [address] [place] [address] PCP - MSSP ACO Attributed Provider 05/08/21 Charline Hagen DO [address] [facility] [address] [place] [address] Consulting Physician Cardiology 03/24/21 Timothy Palacio, DO [address] [facility], [address] [place] [address] Consulting Physician Cardiology 03/22/17 Painter Bottom Relationship Specialty Start Date End Date Ronit Doan DO [address] [facility], [address] [place] [address] PCP - General 11/17/20 Ronit Doan DO [address] [facility], [address] [place] [address] PCP - MSSP ACO Attributed Provider 05/08/21 Charline Hagen DO [address] [facility] [address] [place] [address] Consulting Physician Cardiology 03/24/21 Timothy Palacio, [address] [facility] 3, [facility] [address] [place] [address] Consulting Physician Cardiology 03/22/17 Painter Bottom Relationship Specialty Start Date End Date Ronit Doan DO [address] [facility], [address] [address] PCP - General 11/17/20 Ronit Doan DO [address] [facility], [address] [address] PCP - MSSP ACO Attributed Provider 05/08/21 Charline Hagen DO [address] [facility] [address] [place] [address] Consulting Physician Cardiology 03/24/21 Timothy Palacio, [address], [address] [address] Consulting Physician Cardiology 03/22/17 Painter Bottom Relationship Specialty Start Date End Date Ronit Doan DO [address] Mamta [facility], [address] [address] PCP - General 11/17/20 Ronit Doan DO [address] [facility], [address] [address] PCP - MSSP ACO Attributed Provider 05/08/21 Charline Hagen DO [address] [place] [address] Consulting Physician Cardiology 03/24/21 Timothy Palacio DO [address] [facility] [address], [address] [place] [address] Consulting Physician Cardiology 03/22/17 Team Status: Active [...] Provider Active St art: July 17, 2024 Painter Bottom Relationship Specialty Start Date End Date Ronit Doan DO [address] [facility], [address] [place] [address] PCP - General 11/17/20 Ronit Doan DO [address] [facility], [address] [place] [address] PCP - MSSP ACO Attributed Provider 05/08/21 Charline Hagen, [address] [facility] [address] [place] [address] Consulting Physician Cardiology 03/24/21 Timothy Palacio, [address], [place] [place] [address] Consulting Physician Cardiology 03/22/17 Painter Bottom Relationship Specialty Start Date End Date Ronit Doan DO [address] [facility], [address] [address] PCP - General 11/17/20 Ronit Doan DO [address] [facility], [address] [address] PCP - [facility] ACO Attributed Provider 05/08/21 Charline Hagen, [address] [facility] [address] [place] [address] Consulting Physician Cardiology 03/24/21 Timothy Palacio, [address], [place] [place] [address] Consulting Physician Cardiology 03/22/17 Painter Bottom Relationship Specialty Start Date End Date Ronit Doan DO [address] [facility], [address] [address] PCP - General 11/17/20 Ronit Doan DO [address] [facility], [facility] [address] [place] [address] PCP - MSSP ACO Attributed Provider 05/08/21 Charline Hagen DO [address] [facility] [address] [place] [address] Consulting Physician Cardiology 03/24/21 Timothy Palacio DO [address], [address] [address] Consulting Physician Cardiology 03/22/17 Painter Bottom Relationship Specialty Start Date End Date Ronit Doan DO [address] [facility], [address] [address] PCP - General 11/17/20 Ronit Doan DO [address] [facility], [address] [address] PCP - MSSP ACO Attributed Provider 05/08/21 Charline Hagen DO [address] [place] [place] [address] Consulting Physician Cardiology 03/24/21 Timothy Palacio DO [address], [place] [place] [address] Consulting Physician Cardiology 03/22/17 Source Comments (unrecognize d section and content) In the event this informatio n is protected by the Federal Confidentiality of Alcohol and Drug Abuse Patient Records regulations: The Federal rules restrict any use of the information to criminally investigate or prosecute any alcohol or drug abuse patient.[facility] the event this information is protected by the Federal Confidentiality of Alcohol and Drug Abuse Patient Records regulations: The Federal rules restrict any use of the information to criminally investigate or prosecute any alcohol or drug abuse patient.[facility] the event this information is protected by the Federal Confidentiality of Alcohol and Drug Abuse Patient Records regulations: The Federal rules restrict any use of the information to criminally investigate or prosecute any alcohol or drug abuse patient.[facility] the event this information is protected by the Federal Confidentiality of Alcohol and Drug Abuse Patient Records regulations: The Federal rules restrict any use of the information to criminally investigate or prosecute any alcohol or drug abuse patient.[facility] the event this information is protected by the Federal Confidentiality of Alcohol and Drug Abuse Patient Records regulations: The Federal rules restrict any use of the information to criminally investigate or prosecute any alcohol or drug abuse patient.[facility] the event this information is protected by the Federal Confidentiality of Alcohol and Drug Abuse Patient Records regulations: The Federal rules restrict any use of the information to criminally investigate or prosecute any alcohol or drug abuse patient.[facility] the event this information is protected by the Federal Confidentiality of Alcohol and Drug Abuse Patient Records regulations: The Federal rules restrict any use of the information to criminally investigate or prosecute any alcohol or drug abuse patient.[facility] the event this information is protected [...] or prosecute any alcohol or drug abuse patient.[facility] Hospital[facility] the event this information is protected by the Federal Confidentiality of Alcohol and Drug Abuse Patient Records regulations: The Federal rules restrict any use of the information to criminally investigate or prosecute any alcohol or drug abuse patient.[facility] the event this information is protected by the Federal Confidentiality of Alcohol and Drug Abuse Patient Records regulations: The Federal rules restrict any use of the information to criminally investigate or prosecute any alcohol or drug abuse patient.[facility] Scheduled Active and Recently Administ ered [...] 0733 (Given - Provid er: Farideh Hobson, LEAD SHAREPOINT DEVELOPER) warfarin (Coumadin) tablet 1.25 mg 1.25 mg, [...] BE BASED ON THE PRIMARY CLINICAL RECORDS. [facility]. provides no warranty or guarantee of the accuracy or completeness of information in this document.
[2025-05-04] VITALS (17 sets, daily range): BP systolic 114–133; BP diastolic 39–78; PULSE 62–82; RESP 17–24; TEMP 36.7–37; O2SAT 88–100
[2025-05-04 06:56] LABS: Hematocrit 34.6 % (37-47); Hemoglobin 11.7 g/dL (12.0-15.0); Immature Granulocytes Count 0.080 X10^3/uL (0.0-0.0); Mean Corp Hgb Conc 33.8 g/dL (32-36); Mean Corpuscular Volume 81.2 fL (81-99); Mean Platelet Vol. 8.9 fl (6.2-12.0); NRBC Flagged by Analyzer 0 % (0-5); Platelet Count 321 K/mm3 (150-450); RBC Distribution Width CV 17.7 % (11.6-14.6); RBC Distribution Width SD 52.8 fl (35.1-43.9); Red Blood Count 4.26 M/mm3 (4.2-5.4); White Blood Count 9.1 K/mm3 (4.4-11.0)
[2025-05-04] MEDS: Budesonide Respules 0.5 MG/2 ML AMPUL.NEB. INHALATION ×2 (07:03→20:02)
[2025-05-04 07:09] LABS: Prothrombin Time (Protime)PT. 17.9 SECONDS (11.7-14.9)
[2025-05-04 07:25] LABS: Troponin T High Sensitivity 18 ng/L (<=14)
[2025-05-04 07:27] LABS: Anion Gap 12 (7-18); BUN 12 mg/dL (4-19); BUN/Creat Ratio 13.1 RATIO (10-20); Calcium,Total 9.3 mg/dL (7.6-11.0); Carbon Dioxide 24.7 mmol/L (20.0-29.0); Chloride 97 mmol/L (96-106); Estimated Creatinine Clearance 52.12 ml/min (50-250); Glucose 185 mg/dL (70-99); Potassium 4.8 mmol/L (3.5-5.1)
[2025-05-04] MEDS: 0.9% Saline Lock 10 ML Syringe IV (08:47)
--- NOTE | 2025-05-04 08:50 | PCM.PN.HOSP ---
Subjective Subjective Doing well, not requiring any oxygen this morning Objective Data Objective Data Vital Signs: Vital Signs Temp Pulse Resp BP Pulse Ox O2 Del Method 98.1 F 74 19 H 126/44 H 95 Room Air 05/04/25 08:23 05/04/25 08:23 05/04/25 08:23 05/04/25 08:23 05/04/25 08:23 05/04/25 08:23 Oxygen Delivery Method Room Air Weight: 185 lb Body Mass Index (BMI) 36.1 Intake & Output: Intake and Output for Last 24 Hours 05/03/25 05/04/25 05/05/25 03:59 03:59 03:59 Intake Total 350 / 350 400 / 400 Balance 350 / 350 400 / 400 Lab / Micro Data 05/04/25 06:27 05/04/25 06:27 Labs: Laboratory Results - last 24 hr 05/03/25 19:22: WBC 11.8 H, RBC 4.27, Hgb 11.4 L, Hct 35.5 L, MCV 83.1, MCH 26.7 L, MCHC 32.1, RDW Std Deviation 52.9 H, RDW Coeff of Juliane 17.5 H, Plt Count 331, MPV 8.6, Immature Gran % (Auto) 0.500, Neut % (Auto) 71.8 H, Lymph % (Auto) 15.2 L, [place] % (Auto) 10.8 H, Eos % (Auto) 1.1, Baso % (Auto) 0.6, Absolute Neuts (auto) 8.4 H, Absolute Lymphs (auto) 1.79, Nucleated RBC % 0, Sodium 135, Potassium 4.5, Chloride 99, Carbon Dioxide 22.6, Anion Gap 13, BUN 12, Creatinine 0.92, Estim Creat Clear Calc 51.39, Est GFR (MDRD) Non-Af 66, BUN/Creatinine Ratio 13.1, Glucose 119 H, Calcium 9.3, Troponin T High Sens 31 H 05/03/25 19:27: PT 18.2 H, INR 1.5 05/03/25 21:39: NT pro BNP II 442 05/04/25 06:27: WBC 9.1, RBC 4.26, Hgb 11.7 L, Hct 34.6 L, MCV 81.2, MCH 27.5, MCHC 33.8 D, RDW Std Deviation 52.8 H, RDW Coeff of Juliane 17.7 H, Plt Count 321, MPV 8.9, Immature Gran % (Auto) 0.900, Neut % (Auto) 88.4 H, Lymph % (Auto) 9.1 L, [place] % (Auto) 1.2, Eos % (Auto) 0.0, Baso % (Auto) 0.4, Absolute Neuts (auto) 8.0 H, Absolute Lymphs (auto) 0.82 L, Nucleated RBC % 0, PT 17.9 H, INR 1.5, Sodium 134 L, Potassium 4.8, Chloride 97, Carbon Dioxide 24.7, Anion Gap 12, BUN 12, Creatinine 0.91, Estim Creat Clear Calc 52.12, Est GFR (MDRD) Non-Af 66, BUN/Creatinine Ratio 13.1, Glucose 185 H, Calcium 9.3, Troponin T High Sens 18 H D Micro: Microbiology 05/03/25 19:29 Mucosa - Nose SARS-CoV-2, Influenza & RSV (PCR) - Final Influenzae A Radiography Diagnostic Testing: Radiology Impression Chest X-Ray 05/03/25 19:30 IMPRESSION: Cardiomegaly with mild congestion. Reading Location: [facility] Physical Exam Narrative General: Alert, Oriented x3, Cooperative, No apparent distress HEENT: Atraumatic, PERRLA, EOMI, Normocephalic Oral: Moist Mucosa Neck: Supple, No JVD Lungs: Diminished, Normal air movement, scattered rhonchi, wheeze, No rales Cardiovascular: Regular rate, Regular Rhythm, Normal S1, Normal S2, No murmurs Abdomen: Soft, Non Tender, Non-Distended, No Hepato-splenomegaly Extremities: No edema, Capillary Refill Less than 3 Seconds Skin: No rashes, No breakdown Musculoskeletal: No Tenderness to Palpation of Joints or Extremities Neurological: No focal neurological deficits, moves all extremities Psych/Mental Status: Normal Affect, Appropriate Assessment & Plan Assessment/Plan (1) Influenza A: (2) Acute hypoxemic respiratory failure: (3) Asthma exacerbation: QUALIFIERS: Asthma severity: moderate Asthma persistence: persistent Qualified Code(s): J45.41 - Moderate persistent asthma with (acute) exacerbation (4) History of CHF (congestive heart failure): (5) History of atrial fibrillation: PLAN: Plan 1. Acute hypoxic respiratory insufficiency secondary to influenza A ? Continue with Tamiflu ? She thought she may have aspirated earlier in the week so she is being covered with doxycycline ? Obtain an ambulatory pulse ox today 2. A-fib/essential HTN/HLD/CHF unknown type ? Continue with her home blood pressure medications ? Continue with Coumadin and monitor INR ? Continue with pravastatin ? Continue with Lasix DVT: Coumadin Charges/Coding Visit Charges Inpatient E&M: 10173 Subs Hosp L2
[2025-05-04] MEDS: Albuterol 2.5 MG/3 ML VIAL.NEB. INHALATION ×3 (13:10→23:33)
[2025-05-04] MEDS: Warfarin (PBKC) 2.5 MG Tablet 1.25 MG PO (22:45)
--- NOTE | 2025-05-04 23:17 | NURSING ---
Dr. Ruelas at bedside speaking with patient at this time.
[2025-05-05] VITALS (7 sets, daily range): BP systolic 116–134; BP diastolic 56–63; PULSE 68–72; RESP 16–22; TEMP 36.6–36.7; O2SAT 90–95
[2025-05-05] MEDS: Albuterol 2.5 MG/3 ML VIAL.NEB. INHALATION (03:08)
[2025-05-05] MEDS: Budesonide Respules 0.5 MG/2 ML AMPUL.NEB. INHALATION (07:03)
[2025-05-05 07:12] LABS: Prothrombin Time (Protime)PT. 17.4 SECONDS (11.7-14.9)
--- NOTE | 2025-05-05 07:50 | RAD_ITS ---
PROCEDURE: CHEST PA AND LATERAL 05/05/2025 REASON FOR EXAM: COUGH TECHNIQUE: Procedure Code: RADCXR Modality: DX Procedure: CHEST PA AND LATERAL COMPARISON: 05/03/2025 chest radiograph. FINDINGS: Pacer tips project unchanged over the right atrium and right ventricle. Cardiomegaly is again identified. Mildly prominent pulmonary vasculature again identified. No definite infiltrate or mass. Thoracic spondylosis and dextroscoliosis again identified. Small linear pulmonary scar suspected along the left lateral chest wall. Lung rahman appear otherwise clear. RAD/Chest PA and Lateral IMPRESSION: Cardiomegaly and mild congestion again identified. Reading Location: [facility]
--- NOTE | 2025-05-05 08:30 | PN.HOSP_ITS ---
Subjective Subjective Doing well, no issues overnight Objective Data Objective Data Vital Signs: Vital Signs Temp Pulse Resp BP Pulse Ox O2 Del Method 97.9 F 68 16 116/63 93 Room Air 05/05/25 06:54 05/05/25 07:03 05/05/25 07:03 05/05/25 06:54 05/05/25 07:03 05/05/25 07:03 Oxygen Delivery Method Room Air Weight: 185 lb Body Mass Index (BMI) 36.1 Intake & Output: Intake and Output for Last 24 Hours 05/04/25 05/05/25 05/06/25 03:59 03:59 03:59 Intake Total 350 / 350 1300 / 1300 400 / 400 Balance 350 / 350 1300 / 1300 400 / 400 Lab / Micro Data 05/04/25 06:27 05/04/25 06:27 Labs: Laboratory Results - last 24 hr 05/05/25 06:28: PT 17.4 H, INR 1.4 Micro: Microbiology 05/03/25 19:29 Mucosa - Nose SARS-CoV-2, Influenza & RSV (PCR) - Final Influenzae A Physical Exam Narrative General: Alert, Oriented x3, Cooperative, No apparent distress HEENT: Atraumatic, PERRLA, EOMI, Normocephalic Oral: Moist Mucosa Neck: Supple, No JVD Lungs: Diminished, Normal air movement, scattered rhonchi, wheeze, No rales Cardiovascular: Regular rate, Regular Rhythm, Normal S1, Normal S2, No murmurs Abdomen: Soft, Non Tender, Non-Distended, No Hepato-splenomegaly Extremities: No edema, Capillary Refill Less than 3 Seconds Skin: No rashes, No breakdown Musculoskeletal: No Tenderness to Palpation of Joints or Extremities Neurological: No focal neurological deficits, moves all extremities Psych/Mental Status: Normal Affect, Appropriate Assessment & Plan Assessment/Plan (1) Influenza A: (2) Acute hypoxemic respiratory failure: (3) Asthma exacerbation: QUALIFIERS: Asthma severity: moderate Asthma persistence: p ersistent Qualified Code(s): J45.41 - Moderate persistent asthma with (acute) exacerbation (4) History of CHF (congestive heart failure): (5) History of atrial fibrillation: PLAN: Plan 1. Acute hypoxic respiratory insufficiency secondary to influenza A in the setting of a mild asthma exacerbation ? Continue with Tamiflu, will start on prednisone given her asthma and her hypoxia with ambulation ? She thought she may have aspirated earlier in the week so she is being covered with doxycycline ? Obtain an ambulatory pulse ox today 2. A-fib/essential HTN/HLD/CHF unknown type ? Continue with her home blood pressure medications ? Continue with Coumadin and monitor INR ? Continue with pravastatin ? Continue with Lasix DVT: Coumadin Charges/Coding Visit Charges Inpatient E&M: 09565 Subs Hosp L2
--- NOTE | 2025-05-05 11:34 | PCM.DC ---
Discharge Instructions DC O2, CPAP, BIPAP needs Home O2 Discharge instructions: No Dressing / Incision Discharge Activity: Return to Normal Activity Dressing / Incision Call your doctor if you observe: Fever of 101 or Higher, Shortness of breath, Dizziness, Fainting spells, Swelling in the ankles, Chest pain and Increased palpitations (irregular heartbeat) Follow Up Care Test Results: Test results from this visit will be discussed in further detail at your follow-up appointment, if applicable. Discharge Plan Admission Admit Date/Time: 05/03/25 22:13 Attending Provider: Vipin Mendosa Primary Care Provider: Ronit Doan Consulting Providers: Melinda Meyer Instructions Additional Instructions / Restrictions: Since you are on Trelegy and that will be resumed on discharge I discontinued your steroids especially given your reticence on taking them as Trelegy has an inhaled corticosteroid in it. Discharge Orders/Prescriptions Prescriptions: New oseltamivir 75 mg Capsule 75 mg PO BID 3 Days Qty: 7 0RF doxycycline monohydrate 100 mg Capsule 100 mg PO BID 3 Days Qty: 6 0RF Continued Trelegy Ellipta 100-62.5-25 mcg blister with device 1 inh inhalation Q24H lisinopril 10 mg tablet 10 mg PO QDAY levalbuterol tartrate [Xopenex HFA] 45 mcg/actuation HFA aerosol inhaler 2 inh inhalation Q6H furosemide [Lasix] 40 mg tablet 40 mg PO QAM furosemide [Lasix] 20 mg tablet 20 mg PO QPM diltiazem HCl [Cardizem CD] 240 mg capsule,extended release 24hr 240 mg PO BID tramadol 25 mg tablet 25 mg PO Q6H PRN (Reason: pain) warfarin 2 mg tablet 2.5 mg PO .COMPLEX Rx Instructions: 2.5 mg orally mowefr; esomeprazole magnesium [Nexium] 20 mg capsule,delayed release(DR/EC) 20 mg PO QDAY Probiotic 3 billion cell capsule 3,000 mmu cells PO QDAY Rx Instructions: administer with a meal cetirizine [Zyrtec] 10 mg tablet 10 mg PO QDAY PRN (Reason: allergy symptoms) acetaminophen [Tylenol] 325 mg tablet 325 mg PO ONCE PRN (Reason: pain) metformin 500 mg tablet extended release 24 hr 500 mg PO BID gabapentin 100 mg capsule 200 mg PO QHS ipratropium-albuterol 0.5 mg-3 mg(2.5 mg base)/3 mL solution for nebulization 3 ml inhalation PRN pravastatin 40 mg tablet 40 mg PO QHS warfarin 2.5 mg tablet 1.25 mg PO TUTH Rx Instructions: tuthursatsun magnesium gluconate 27.5 mg magne- sium (500 mg) tablet 27.5 mg PO DAILY Referrals / Follow Up: Ronit Doan DO [Primary Care Provider, Medical] - Within 1 Week Disposition Disposition (needs filled in before D/C Order can be placed): Home, Self Care
--- NOTE | 2025-05-05 11:47 | CASEMGMT ---
CRISTAL CEVALLOS Assessment: Face to Face with pt for initial transition planning/care coordination assessment. CRISTAL CEVALLOS introduced self and role at [facility], pt voices understanding and consents to assessment. Pt is A&O x4 and answers all questions appropriately at this time. Pt sitting up in bed on RA in no distress. Care providers, pharmacy, and demographics verified/updated. Admitting Dx: cough Strata Score: 3 PCP:[facility] Specialists:Leonel, pulcecille; carmelo Verduzco dr; Julianna Washington, retina dr; sean doctor from [facility] [place], pt cannot recall name Preferred Pharmacy:[facility] Insurance: [facility], [employer] Prescription Benefit: yes LNOK: Ann El, friend Living Arrangements: Pt lives alone in a senior apt that is ground level with no steps. Pt reports she is I in ADL/IADLs and denies concerns at home. Transportation: Pt drives self and denies concerns with transportation. DME:HH shower, walker but doesn't use, nebulizer, handrails in shower HHC/SNF: Pt has had HH through in the past and denies SNF stays. Pt states no concerns with going home at time of dc. Pt states she drove herself here and plans to drive self home. 6 cl=24. Pt did not qualify for home oxygen. Pt states no further concerns/needs. CM to follow. Advised pt to ask CM if any further questions/concerns/needs arise, voices understanding. Pt Goal: Home Plan: Home Shaji BEE CM
--- NOTE | 2025-05-05 11:55 | PCM.DC.SUM ---
Providers Date of Admission: 05/03/25 Primary Care Physician: Dr. Ronit Doan DO Reason For Visit: Cough Diagnosis Discharge Diagnosis (1) Influenza A: Status: Acute Code(s): J10.1 - Influenza due to other identified influenza virus with other respiratory manifestations (2) Acute hypoxemic respiratory failure: Status: Acute Code(s): J96.01 - Acute respiratory failure with hypoxia (3) Asthma exacerbation: Status: Acute Code(s): J45.901 - Unspecified asthma with (acute) exacerbation Qualifiers: Asthma severity: moderate Asthma persistence: persistent Qualified Code(s): J45.41 - Moderate persistent asthma with (acute) exacerbation (4) History of CHF (congestive heart failure): Status: Acute Code(s): Z86.79 - Personal history of other diseases of the circulatory system (5) History of atrial fibrillation: Status: Acute Code(s): Z86.79 - Personal history of other diseases of the circulatory system Medications at Discharge Home Medications acetaminophen 325 mg tablet (Tylenol) 325 mg PO ONCE PRN pain 07/11/24 cetirizine 10 mg tablet (Zyrtec) 10 mg PO QDAY PRN allergy symptoms 07/11/24 diltiazem HCl 240 mg capsule,extended release 24 hr (Cardizem CD) 240 mg PO BID 07/11/24 esomeprazole magnesium 20 mg capsule,delayed release (Nexium) 20 mg PO QDAY 07/11/24 fluticasone fur. 100 mcg-umeclid 62.5 mcg-vilant 25 mcg inhalat.powder (Trelegy Ellipta) 1 inh inhalation Q24H 07/11/24 furosemide 20 mg tablet (Lasix) 20 mg PO QPM 07/11/24 furosemide 40 mg tablet (Lasix) 40 mg PO QAM 07/11/24 lactobacillus combination no.4 3 billion cell capsule (Probiotic) 3,000 mmu cells PO QDAY 07/11/24 levalbuterol tartrate 45 mcg/actuation aerosol inhaler (Xopenex HFA) 2 inh inhalation Q6H 07/11/24 lisinopril 10 mg tablet 10 mg PO QDAY 07/11/24 tramadol 25 mg tablet 25 mg PO Q6H PRN pain 07/11/24 warfarin 2 mg tablet 2.5 mg PO .COMPLEX mowefrsasu 07/11/24 ipratropium 0.5 mg-albuterol 3 mg (2.5 mg base)/3 mL nebulization soln 3 ml inhalation PRN 07/15/24 magnesium gluconate 27.5 mg magnesium (500 mg) tablet 27.5 mg PO DAILY 07/15/24 pravastatin 40 mg tablet 40 mg PO QHS 07/15/24 warfarin 2.5 mg tablet 1.25 mg PO TUTH 07/15/24 metformin 500 mg tablet,extended release 24 hr 500 mg PO BID 07/24/24 gabapentin 100 mg capsule 200 mg PO QHS 03/13/25 doxycycline monohydrate 100 mg capsule 100 mg PO BID 3 days #6 caps 05/05/25 oseltamivir 75 mg capsule 75 mg PO BID 3 days #7 caps 05/05/25 Hospital Course Operations None Procedures None Summary of Care Provided Minutes Spent on Discharge: 34 Hospital Course: Per HPI: NHI ZHANG, is a 74 F who presents worsening shortness of breath and nonproductive cough over the past 2 days. This happened after she thinks she have aspirated while eating. Denies any worsening wheezing or changes in sputum. No fever. No leg swelling, orthopnea or PND. Compliant with Lasix twice daily. Patient has a medical history of asthma/COPD last admission was in March for an exacerbation, heart failure preserved EF, A-fib on warfarin, CAD and diabetes. In the ED she tested positive for influenza A. WBC 11.8 off steroids. Afebrile EKG is unchanged from prior. Chest x-ray showed cardiomegaly with mild congestion, comparing to prior I do not see a change. In the ED she had desaturation on minimal ambulation and required oxygen. She received a nebulizer treatment but continued to have bilateral wheezing on exam. She will need admission for influenza A with subsequent exacerbation of underlying asthma/COPD and close monitoring for complications like superimposed bacterial pneumonia or exacerbation of CHF. Hospital Course: 1. Acute hypoxic respiratory sufficiency secondary to influenza A in the setting of a mild asthma exacerbation?74-year-old female who was recently admitted to the hospital in March for rhinovirus presents again for influenza in the setting of a history of asthma. She is very rhonchorous and wheezy and initially needed oxygen with ambulation down to 85% yesterday. Today she was 95% on room air and 90% with ambulation. She is having improvement in her breathing with increased expectoration which is a good sign. She has been on Tamiflu and doxycycline since admission and she will complete 3 more days of Tamiflu as well as doxycycline on discharge. I did discuss with her the benefits of prednisone in the setting of having a mild asthma exacerbation however she is reticent secondary to having been told that prednisone in the setting of influenza A increases mortality despite the fact that this was only in people who did not have any other underlying conditions and the data is only observational, however she is on Trelegy as an outpatient which has a steroid in it so we will just resume her Trelegy dosing on discharge. She did express understanding of the risks and benefits of going home and is okay with going home today. Repeat chest x-ray this morning at her insistence did not show any change from her admission chest x-ray on my read. 2. A-fib, essential pretension, hyperlipidemia, CHF unknown type are all chronic medical conditions which complicate her care. Her home medications were continued where appropriate Weight / BMI Weight Weight: 185 lb Body Mass Index (BMI) 36.1 ABG / Lab / Microbiology Data 05/04/25 06:27 05/04/25 06:27 Laboratory: Laboratory Results - last 24 hr 05/05/25 06:28: PT 17.4 H, INR 1.4 Microbiology: Microbiology 05/03/25 19:29 Mucosa - Nose SARS-CoV-2, Influenza & RSV (PCR) - Final Influenzae A D/C Instructions Call your doctor if you observe: Fever of 101 or Higher, Shortness of breath, Dizziness, Fainting spells, Swelling in the ankles, Chest pain and Increased palpitations (irregular heartbeat) DC O2, CPAP, BIPAP Needs Home O2 Discharge instructions: No Meaningful Use Info Meaningful Use Meaningful Use Diagnoses (Choose all that apply): None applicable Discharge Plan Admission Admit Date/Time: 05/03/25 22:13 Attending Provider: Vipin Mendosa Primary Care Provider: Ronit Doan Consulting Providers: Melinda Meyer Instructions Additional Instructions / Restrictions: Since you are on Trelegy and that will be resumed on discharge I discontinued your steroids especially given your reticence on taking them as Trelegy has an inhaled corticosteroid in it. Discharge Orders/Prescriptions Prescriptions: New oseltamivir 75 mg Capsule 75 mg PO BID 3 Days Qty: 7 0RF doxycycline monohydrate 100 mg Capsule 100 mg PO BID 3 Days Qty: 6 0RF Continued Trelegy Ellipta 100-62.5-25 mcg blister with device 1 inh inhalation Q24H lisinopril 10 mg tablet 10 mg PO QDAY levalbuterol tartrate [Xopenex HFA] 45 mcg/actuation HFA aerosol inhaler 2 inh inhalation Q6H furosemide [Lasix] 40 mg tablet 40 mg PO QAM furosemide [Lasix] 20 mg tablet 20 mg PO QPM diltiazem HCl [Cardizem CD] 240 mg capsule,extended release 24hr 240 mg PO BID tramadol 25 mg tablet 25 mg PO Q6H PRN (Reason: pain) warfarin 2 mg tablet 2.5 mg PO .COMPLEX Rx Instructions: 2.5 mg orally mowefr; esomeprazole magnesium [Nexium] 20 mg capsule,delayed release(DR/EC) 20 mg PO QDAY Probiotic 3 billion cell capsule 3,000 mmu cells PO QDAY Rx Instructions: administer with a meal cetirizine [Zyrtec] 10 mg tablet 10 mg PO QDAY PRN (Reason: allergy symptoms) acetaminophen [Tylenol] 325 mg tablet 325 mg PO ONCE PRN (Reason: pain) metformin 500 mg tablet extended release 24 hr 500 mg PO BID gabapentin 100 mg capsule 200 mg PO QHS ipratropium-albuterol 0.5 mg-3 mg(2.5 mg base)/3 mL solution for nebulization 3 ml inhalation PRN pravastatin 40 mg tablet 40 mg PO QHS warfarin 2.5 mg tablet 1.25 mg PO TUTH Rx Instructions: tuthursatsun magnesium gluconate 27.5 mg magne- sium (500 mg) tablet 27.5 mg PO DAILY Referrals / Follow Up: Ronit Doan DO [Primary Care Provider, Medical] - Within 1 Week Disposition Disposition (needs filled in before D/C Order can be placed): Home, Self Care Charges/Coding Visit Charges Inpatient E&M: 32951 Disch Hosp >30min
--- NOTE | 2025-05-05 15:12 | PHA.DC_ITS ---
Pharmacy [facility] Counseling Pharmacy Service has performed discharge medication reconciliation and counseling for this patient. Patient counseled via telephone due to precautions. 1. DOXYCYCLINE 100MG PO BID X 3 DAYS 2. OSELTAMIVIR 30MG PO BID X 7 DOSES The patient's discharge medication list was reviewed for discrepancies and discrepancies were resolved. The patient was counseled on the following discharge medications and changes in medications for homegoing were reviewed. The Reason for Use, instructions for use, and potential side effects were re viewed for all new medications. The patient's questions regarding all of their medications were answered. The patient was able to verbally demonstrate an understanding of their discharge medications. Medications at Discharge Home Medications acetaminophen 325 mg tablet (Tylenol) 325 mg PO ONCE PRN pain 07/11/24 cetirizine 10 mg tablet (Zyrtec) 10 mg PO QDAY PRN allergy symptoms 07/11/24 diltiazem HCl 240 mg capsule,extended release 24 hr (Cardizem CD) 240 mg PO BID 07/11/24 esomeprazole magnesium 20 mg capsule,delayed release (Nexium) 20 mg PO QDAY 07/11/24 furosemide 20 mg tablet (Lasix) 20 mg PO QPM 07/11/24 furosemide 40 mg tablet (Lasix) 40 mg PO QAM 07/11/24 lactobacillus combination no.4 3 billion cell capsule (Probiotic) 3,000 mmu cells PO QDAY 07/11/24 levalbuterol tartrate 45 mcg/actuation aerosol inhaler (Xopenex HFA) 2 inh inhalation Q6H 07/11/24 lisinopril 10 mg tablet 10 mg PO QDAY 07/11/24 tramadol 25 mg tablet 25 mg PO Q6H PRN pain 07/11/24 warfarin 2 mg tablet 2.5 mg PO .COMPLEX mowefrsasu 07/11/24 ipratropium 0.5 mg-albuterol 3 mg (2.5 mg base)/3 mL nebulization soln 3 ml inhalation PRN 07/15/24 magnesium gluconate 27.5 mg magnesium (500 mg) tablet 27.5 mg PO DAILY 07/15/24 pravastatin 40 mg tablet 40 mg PO QHS 07/15/24 warfarin 2.5 mg tablet 1.25 mg PO TUTH 07/15/24 metformin 500 mg tablet,extended release 24 hr 500 mg PO BID 07/24/24 gabapentin 100 mg capsule 200 mg PO QHS 03/13/25 doxycycline monohydrate 100 mg capsule 100 mg PO BID 3 days #6 caps 05/05/25 fluticasone fur. 100 mcg-umeclid 62.5 mcg-vilant 25 mcg inhalat.powder (Trelegy Ellipta) 1 inh inhalation Q24H 30 days #28 ea 05/05/25 oseltamivir 75 mg capsule 75 mg PO BID 3 days #7 caps 05/05/25
== END 2025-05-05 15:24 | disposition home or self-care (01) | DRG 202 ==
LOC: ED 21:31 → MS3 22:37
PROVIDERS: Admitting Provider Internal Medicine; Emergency Provider Emergency Medicine; PCP Internal Medicine; Visit Provider Family Medicine
DX: J45.41 Moderate persistent asthma with (acute) exacerbation (principal); J44.1 Chronic obstructive pulmonary disease with (acute) exacerbation; I50.32 Chronic diastolic (congestive) heart failure; I11.0 Hypertensive heart disease with heart failure; E11.9 Type 2 diabetes mellitus without complications; I48.91 Unspecified atrial fibrillation; J10.1 Influenza due to other identified influenza virus with other respiratory manifestations; K21.9 Gastro-esophageal reflux disease without esophagitis; E78.5 Hyperlipidemia, unspecified; I25.10 Atherosclerotic heart disease of native coronary artery without angina pectoris; J44.89 Other specified chronic obstructive pulmonary disease; Z79.01 Long term (current) use of anticoagulants; Z79.51 Long term (current) use of inhaled steroids; Z79.84 Long term (current) use of oral hypoglycemic drugs; Z79.899 Other long term (current) drug therapy
CPT/HCPCS: 36415; 71045; 71046; 80048; 83880; 84484; 85025; 85610; 87631; 93005; 94640; 99285; A4216